=== PATIENT | female | born 1985 | race Caucasian/White ===

== ENCOUNTER 2025-01-15 17:46 | Emergency (ER) | payer MEDICAID, SELFPAY ==
[2025-01-15 17:48] VITALS: BP 149/96; PULSE 78; RESP 18; TEMP 36.9; O2SAT 100; BMI 28.8
--- NOTE | 2025-01-15 18:16 | CT_ITS ---
PROCEDURE: ABDOMEN/PELVIS W IV CONT ONLY 01/15/2025 REASON FOR EXAM: IRREDUCIBLE HERNIA TECHNIQUE: Abdomen and pelvis CT with intravenous contrast. Coronal and Sagittal reconstruction series were provided. PATIENT PREPARATION: Per protocol ORAL CONTRAST TYPE: None. AMOUNT: mL CONTRAST: Omnipaque 350 VOLUME: 100 mL One or more dose reduction techniques were used (e.g., Automated exposure control, adjustment of the mA and/or kV according to patient size, use of iterative reconstruction technique. COMPARISON: None FINDINGS: Lung bases: Unremarkable Liver: Homogeneous attenuation. No focal lesion. Gallbladder: No ductal dilation. Cholelithiasis. Spleen: Normal size. Pancreas: Normal size without evidence of mass surrounding inflammation or ductal dilation. Adrenals: Unremarkable Kidneys: Normal renal sizes. No hydronephrosis. Bladder: Urinary bladder is unremarkable. Reproductive Organs: IUD is noted. Bilateral adnexal cysts. Bowel: Stomach is unremarkable. No bowel dilation. Large colonic stool. Appendix: Normal appendix. Lymph nodes: No suspicious lymph node enlargement. Vasculature: The abdominal aorta and IVC are normal. Peritoneum / Retroperitoneum: No ascites. No pneumoperitoneum. Bones: No degenerative changes. Soft tissue: 4.6 x 8.0 cm fat containing umbilical hernia, with 2.5 cm diastasis of the rectus sheath. CT/Abdomen/Pelvis W IV Cont ONLY IMPRESSION: No acute findings in the abdomen or pelvis. Cholelithiasis. 8 cm fat containing umbilical hernia with rectus sheath diastasis. Reading Location: [facility]
[2025-01-15 18:25] LABS: Absolute Lymphocyte Count 3.13 X10^3/uL (0.83-4.51); Absolute Neutrophil Count 5.2 X10^3/uL (2.0-7.7); Basophil% 1.1 % (0-1); Eosinophil# 0.19 X10^3/uL; Hemoglobin 13.8 g/dL (12.0-15.0); Lymphocyte # 3.13 X10^3/ul (0.83-4.51); Lymphocyte % 33.2 % (19-41); Mean Corp Hgb Conc 34.5 g/dL (32-36); Mean Corpuscular Hgb 31.4 pg (27.0-32.0); Mean Corpuscular Volume 91.1 fL (81-99); Mean Platelet Vol. 8.9 fl (6.2-12.0); Monocyte# 0.83 X10^3/uL; Monocyte% 8.8 % (0-10); NRBC Flagged by Analyzer 0 % (0-5); Neutrophil # 5.17 X10^3/uL (2.7-7.7); Neutrophil % 54.7 % (47-70); Platelet Count 365 K/mm3 (150-450); RBC Distribution Width CV 12.1 % (11.6-14.6); RBC Distribution Width SD 40.7 fl (35.1-43.9); Red Blood Count 4.39 M/mm3 (4.2-5.4); White Blood Count 9.4 K/mm3 (4.4-11.0)
[2025-01-15] MEDS: Morphine 4 MG/ML Syringe IV (18:25)
[2025-01-15] MEDS: Ondansetron 4 MG/2 ML Vial IV (18:25)
[2025-01-15] MEDS: 0.9% Normal Saline (1000mL) 1,000 ML 999 ML IV (18:25)
--- NOTE | 2025-01-15 18:35 | EDS_ITS ---
HPI <YVAN Cadena - Last Filed: 01/15/25 21:02> History of Present Illness Chief Complaint: Abd Pain Narrative Narrative: Patient presenting today due to concerns for an irreducible ventral hernia. She reports she is usually able to easily reduce this when laying down but since yesterday she has had increased pain to the area and is unable to reduce it. She reports that she has had this hernia for about 3 years, she is not currently following with general surgery for this. She denies history of abdominal surgery. She last had a bowel movement this morning that was normal for her, she reports feeling slightly nauseous. She denies fevers, chills, vomiting, and urinary symptoms. PFSH <YVAN Cadena - Last Filed: 01/15/25 21:02> PFSH Medical History Tachycardia IUD (intrauterine device) in place Umbilical hernia Allergy/AdvReac Type Severity Reaction Status Date / Time amoxicillin Allergy Unknown unknown Verified 01/15/25 17:47 Surgical History Previous section Social History Smoking Status: Current every day smoker tobacco type: e-cigarettes ROS <YVAN Cadena - Last Filed: 01/15/25 21:02> ROS ED Constitutional Constitutional ED: Denies chills or fever(s) Cardiovascular Cardiovascular: Denies chest pain Respiratory/Chest Respiratory/Chest: Denies dyspnea Gastrointestinal Gastrointestinal: Reports abdominal pain and nausea; Denies constipation, diarrhea or vomiting Genitourinary Genitourinary ED: Denies dysuria, hematuria or urinary urgency Musculoskeletal Musculoskeletal: Denies arthralgias or myalgias Integumentary Denies rash Neurologic Neurologic: Denies weakness EXAM <YVAN Cadena - Last Filed: 01/15/25 21:02> Physical Exam Const Vital Signs: 01/15/25 17:48 01/15/25 19:46 Temperature 98.4 F 98.7 F Temperature Source Oral Oral Pulse Rate 78 75 Respiratory Rate 18 16 Blood Pressure 149/96 H 131/86 H Blood Pressure Mean 113 101 Pulse Ox 100 100 Oxygen Delivery Method Room Air Room Air Positive well nourished, well developed and no apparent distress General Appearance ED: well developed HEENT Reports normocephalic and head/scalp atraumatic Mouth ED: Yes moist mucous membranes normal Eyes PERRL and EOMs intact bilaterally Neck full ROM and supple Chest Wall inspection of chest normal Resp normal respiratory effort and clear to auscultation bilaterally Cardio regular rate and regular rhythm GI soft to palpation and non-distended GI Narrative: Moderate sized ventral abdominal hernia that is somewhat tender to palpation, no overlying skin changes. Remainder of abdominal exam is soft and nontender Palpation: Negative for guarding or rebound tenderness present Back/Spine normal ROM and normal to inspection Extremity normal to inspection and full ROM Neuro oriented x3, CN's II-XII intact bilaterally, moves all extremities, no focal motor deficits and no sensory deficits noted Sensorium / Orientation: awake and alert Psych mental status grossly normal and thought process normal Skin no rashes or lesions noted and no wounds <Dr. Tato Prieto DO - Last Filed: 01/15/25 20:31> Physical Exam Const Vital Signs: 01/15/25 17:48 01/15/25 19:46 Temperature 98.4 F 98.7 F Temperature Source Oral Oral Pulse Rate 78 75 Respiratory Rate 18 16 Blood Pressure 149/96 H 131/86 H Blood Pressure Mean 113 101 Pulse Ox 100 100 Oxygen Delivery Method Room Air Room Air [facility] <YVAN Cadena - Last Filed: 01/15/25 21:02> [facility] Narrative Medical decision making narrative: Patient presenting today with a ventral hernia that has been painful since yesterday. She reports that she is usually able to easily reduce this but since last night she has not been able to. She last had a bowel movement this morning. On exam, her abdomen is soft and nontender aside from her hernia which is slightly tender. She was given IV Zofran, fluids, and morphine and ice was placed over the hernia, the attending was then able to reduce the majority of her hernia. Basic labs obtained and are unremarkable. CT scan of the abdomen and pelvis with IV contrast shows an 8 cm fat-containing umbilical hernia with rectus sheath diastases, she also has cholelithiasis, no other acute findings. No evidence of bowel obstruction. Patient reports improvement of her symptoms on reexamination. She does not currently have a general surgeon, I have referred her to general surgery here. Recommended she have close follow-up. Return instructions were discussed with her and patient discharged home in stable condition. Lab Data Attestation: I reviewed the patient's lab results. Lab results narrative: CBC and BMP unremarkable Labs: Laboratory Results - last 24 hr 01/15/25 18:12 WBC 9.4 RBC 4.39 Hgb 13.8 Hct 40.0 MCV 91.1 MCH 31.4 MCHC 34.5 RDW Std Deviation 40.7 RDW Coeff of Concetta 12.1 Plt Count 365 MPV 8.9 Immature Gran % (Auto) 0.200 Neut % (Auto) 54.7 Lymph % (Auto) 33.2 Pender % (Auto) 8.8 Eos % (Auto) 2.0 Baso % (Auto) 1.1 H Absolute Neuts (auto) 5.2 Absolute Lymphs (auto) 3.13 Nucleated RBC % 0 Sodium 139 Potassium 4.2 Chloride 104 Carbon Dioxide 22.8 Anion Gap 12 BUN 11 Creatinine 0.76 Estim Creat Clear Calc 99.31 Est GFR (MDRD) Non-Af 103 BUN/Creatinine Ratio 14.5 Glucose 94 Calcium 9.2 Radiography Diagnostic Testing: Clinical Impression(s) from Imaging Studies Abdomen/Pelvis CT 01/15/25 18:16 IMPRESSION: No acute findings in the abdomen or pelvis. Cholelithiasis. 8 cm fat containing umbilical hernia with rectus sheath diastasis. Reading Location: [facility] <Dr. Tato Prieto, DO - Last Filed: 01/15/25 20:31> [facility] Lab Data Labs: Laboratory Results - last 24 hr 01/15/25 18:12 WBC 9.4 RBC 4.39 Hgb 13.8 Hct 40.0 MCV 91.1 MCH 31.4 MCHC 34.5 RDW Std Deviation 40.7 RDW Coeff of Concetta 12.1 Plt Count 365 MPV 8.9 Immature Gran % (Auto) 0.200 Neut % (Auto) 54.7 Lymph % (Auto) 33.2 Pender % (Auto) 8.8 Eos % (Auto) 2.0 Baso % (Auto) 1.1 H Absolute Neuts (auto) 5.2 Absolute Lymphs (auto) 3.13 Nucleated RBC % 0 Sodium 139 Potassium 4.2 Chloride 104 Carbon Dioxide 22.8 Anion Gap 12 BUN 11 Creatinine 0.76 Estim Creat Clear Calc 99.31 Est GFR (MDRD) Non-Af 103 BUN/Creatinine Ratio 14.5 Glucose 94 Calcium 9.2 Radiography Diagnostic Testing: Clinical Impression(s) from Imaging Studies Abdomen/Pelvis CT 01/15/25 18:16 IMPRESSION: No acute findings in the abdomen or pelvis. Cholelithiasis. 8 cm fat containing umbilical hernia with rectus sheath diastasis. Reading Location: [facility] Treatment and Re-Evaluation :: I have personally performed a face to face assessment of the patient and have reviewed the FRAN Note. I performed a substantive portion of the visit including all aspects of the following. My enriquez findings include: History: Patient presents with ventral hernia that recurred yesterday. Patient states it has gradually gotten worse. Patient describes her pain as sharp. Patient states it is over the upper abdomen. Patient states it is worse with certain movements. Patient states it is better when she lays on her side and lays on her back. Patient admits to some nausea but denies any vomiting. Patient denies any diarrhea. Patient denies any fevers or chills. Exam: Vital signs are stable. Patient is afebrile. Patient is in no acute distress. Oral mucosa is pink and moist. Neck is supple. Trachea is midline. There is no JVD. Heart was regular rate and rhythm. Lungs are clear and equal bilaterally. Abdomen is soft. Bowel sounds are normal. There is a ventral hernia noted. There is tenderness to palpation over this area. There is no rebound or guarding noted. Cranial nerves II through XII are intact. There are no focal motor or sensory deficits noted. Medical Decision Making: Differential diagnosis includes incarcerated hernia, strangulated hernia, bowel obstruction, perforation, electrolyte abnormality, and dehydration. CBC will be obtained to assess for leukocytosis and anemia. Basic metabolic profile will be obtained to assess for electrolyte abnormality and renal function. CT scan of the abdomen and pelvis will be obtained to assess for bowel obstruction, perforation, incarcerated hernia, and strangulated hernia. Patient was given IV fluids, morphine, and Zofran. CBC was reviewed and was within normal limits. Basic metabolic profile was reviewed and was within normal limits. CT scan of the abdomen and pelvis was obtained. There is a ventral hernia containing fat. There is no evidence of obstruction or perforation. There is cholelithiasis but no evidence of cholecystitis. This was interpreted by the radiologist and was also independently reviewed by myself. Patient was laid flat and the hernia was attempted to be reduced. There is some reduction of the hernia. Patient felt somewhat better after this. Patient was advised of her findings. Patient was instructed to follow-up with her primary care physician in 5 to 7 days. Patient was given referral for surgery. Patient understood and was agreeable with the plan. All questions were answered. Discharge Plan Triage Chief Complaint: Abd Pain ED Midlevel Provider: Cierra Dinero ED Provider: Tato Prieto Dx/Rx/DC Orders Clinical Impression: Ventral hernia Instructions: ED Hernia (Adult) Primary Care Provider: Hui Valdes NP Referrals: Desean Rodriguez MD [Med Staff - Active Staff] - 5-7 Days NOT,DEFINED [Non-Staff] - Activity Restrictions/Additional Instructions: Follow-up with general surgery, return for any worsening symptoms or other concerns. Print Language: Scottish Disposition Disposition: Home, Self Care
[2025-01-15 18:48] LABS: Anion Gap 12 (5-15); BUN 11 mg/dL (4-19); BUN/Creat Ratio 14.5 RATIO (10-20); Calcium,Total 9.2 mg/dL (7.6-11.0); Carbon Dioxide 22.8 mmol/L (21.0-32.0); Chloride 104 mmol/L (98-108); Creatinine, Serum 0.76 mg/dL (0.70-1.20); EST Glomerular Filtration Rate 103 (>60); Estimated Creatinine Clearance 99.31 ml/min (50-250); Glucose 94 mg/dL (70-99); Potassium 4.2 mmol/L (3.3-5.1); Sodium Level 139 mmol/L (133-145)
[2025-01-15 19:46] VITALS: BP 131/86; PULSE 75; RESP 16; TEMP 37.1; O2SAT 100
[2025-01-15 21:00] VITALS: BP 131/90; PULSE 64
[2025-01-15 21:26] VITALS: BP 131/90; PULSE 75; RESP 16; TEMP 37.1; O2SAT 100
== END 2025-01-15 21:27 | disposition home or self-care (01) ==
PROVIDERS: Physician Assistant; Emergency Provider Emergency Medicine; PCP Nurse Practitioner Primary Care; Visit Provider Emergency Medicine
DX: K43.9 Ventral hernia without obstruction or gangrene (principal); K42.9 Umbilical hernia without obstruction or gangrene; K80.20 Calculus of gallbladder without cholecystitis without obstruction; F17.290 Nicotine dependence, other tobacco product, uncomplicated
CPT/HCPCS: 74177; 80048; 85025; 96361; 96374; 96375; 99283; Q9967; A4216; J2405

== ENCOUNTER 2025-02-14 12:52 | Day surgery (SDC) | payer MEDICAID, SELFPAY ==
[2025-02-14] VITALS (10 sets, daily range): BP systolic 116–142; BP diastolic 66–98; PULSE 74–96; RESP 14–18; TEMP 36.4–36.7; O2SAT 94–100; BMI 27.6
[2025-02-14 13:09] LABS: Internal QC Validated? YES +Cl - CLEAR BKGD; Pregnancy, Urine Negative Negative
[2025-02-14] MEDS: Lactated Ringers 1,000 ML 15 ML IV ×2 (13:28→16:03)
--- NOTE | 2025-02-14 13:40 | PRE.ANES_ITS ---
ASA Classification* ASA Classification ASA Classification: 2 (Tachycardia, anxiety/depression, migraines) Assessment & Plan Anesthesia* Anesthesia Assessment Anesthesia Assessment: Discussed sedation and/or anesthesia options, risks, benefits, and alternatives with patient/parents/legal guardian/POA. Questions invited. The patient/parents/legal guardian/POA seems to understand and agrees to proceed with anesthesia plan. Reviewed the physical assessment, medical history, allergy history and patient home medications list prior to surgery/procedure/anesthetic and documented any changes. Performed airway and anesthesia risk assessments. Anesthesia Type Anesthesia Type: General History Source History Obtained from:: Patient and Chart Anesthesia Focused Assessment* Temperature: 98.0 F Pulse Rate: 75 Blood Pressure: 142/98 Respiratory Rate: 18 Pulse Ox: 98 Oxygen Delivery Method: Room Air Airway Assessment Mouth opens: >3 cm Mallampati Score: II Teeth Condition: Missing (edentullous) Neck Range of motion (ROM): Full ROM Focused Labs Anesthesia Preop lab: CBC WBC 9.4 K/mm3 (4.4-11.0) 01/15/25 18:12 01/15/25 RBC 4.39 M/mm3 (4.2-5.4) 01/15/25 18:12 01/15/25 Hgb 13.8 g/dL (12.0-15.0) 01/15/25 18:12 01/15/25 Hct 40.0 % (37-47) 01/15/25 18:12 01/15/25 Plt Count 365 K/mm3 (150-450) 01/15/25 18:12 01/15/25 CHEMISTRY Potassium 4.2 mmol/L (3.3-5.1) 01/15/25 18:12 01/15/25 Sodium 139 mmol/L (133-145) 01/15/25 18:12 01/15/25 BUN 11 mg/dL (4-19) 01/15/25 18:12 01/15/25 Creatinine 0.76 mg/dL (0.70-1.20) 01/15/25 18:12 01/15/25 Glucose 94 mg/dL (70-99) 01/15/25 18:12 01/15/25 COAG Urine Test Negative Negative 02/14/25 13:00 02/14/25 Pre-Assessment Diagnosis/Proposed Procedure Planned Operative Procedure(s): OPEN VENTRAL HERNIA REPAIR WITH MESH Anesthesia History 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 When Was Last Pacemaker Check QUESTION #4 FULL TEXT: You/Your Family Experience fever (hyperthermia) with Anesthesia Last Oral Intake Last Oral intake: Last Oral Intake NPO since 09:00 02/14/25 13:25 Meds taken in AM with sips of Yes 02/14/25 13:25 water? Meds patient instructed to see med rec 02/14/25 13:25 take am of surgery PONV PONV - justice court deputy clerk: PONV - justice court deputy clerk Female Yes 02/04/25 14:43 HX of Motion Sickness No 02/04/25 14:43 HX of N/V After Surgery No 02/04/25 14:43 Non-Smoker No 02/04/25 14:43 Duration of Surgery greater Yes 02/04/25 14:43 than 60 minutes Number of Risk Factors 2 02/04/25 14:43 PONV Score Moderate Risk 02/04/25 14:43 Height & Weight Height & Weight: Anesthesia: Height & Weight Height 5 ft 4 in 02/14/25 13:25 Weight: 73 kg 02/14/25 13:25 Body Mass Index (BMI) 27.6 02/14/25 13:25 Respiratory Assessment Respiratory Assessment - justice court deputy clerk: Respiratory Tract Infection Hx - justice court deputy clerk Hx Respiratory Tract Infection No 02/04/25 14:43 STOP Sleep Apnea STOP Sleep Apnea - justice court deputy clerk: STOP Sleep Apnea - justice court deputy clerk Hx Hypertension No 02/04/25 14:43 Hx Sleep Apnea No 02/04/25 14:43 CPAP BIPAP Do you snore loudly (louder No 02/04/25 14:43 than talking or can be heard Do you often feel tired/ Yes 02/04/25 14:43 fatigued/ sleepy during daytime? Has anyone observed you stop No 02/04/25 14:43 breathing during sleep? STOP Results Negative 02/04/25 14:43 QUESTION #5 FULL TEXT : Do you snore loudly (louder than talking or can be heard through closed doors)? 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 Specify any problems Hx of Preganancy in last 3 No 02/04/25 14:43 Months Nurse Filling Out Transfusion DSCHRIBER 02/04/25 14:43 & Questions: Date: 02/04/25 02/04/25 14:43 Time: 14:45 02/04/25 14:43 Patient unable to answer at this time (ie. confused, unrespo /Reproduction History /Reproductive History - justice court deputy clerk: /Reproductive Hx- justice court deputy clerk Hx Now No 02/04/25 14:43 Gestational Age (in weeks): EDC: Hx Hx Para Hx Section SAB No 02/04/25 14:43 Active Medications Active Medications: Current Medications Generic Name Dose Route Start Last Admin Trade Name Freq PRN Reason Stop Dose Admin Clindamycin Phosphate 900 mg in 50 mls @ 75 mls/hr 02/14/25 14:30 Cleocin IV 02/14/25 15:09 INTRAOP ONE Lactated Ringer's 1,000 mls @ 15 mls/hr 02/14/25 13:15 02/14/25 13:28 IV 15 mls/hr .Q48H MINOR Administration PFSH Medical History (Updated 02/04/25 @ 14:53 by Tricia Garcia) Wears glasses Wears dentures Depression Bladder disease Low iron Back pain Migraine headache History of ulceration Shortness of breath on exertion Vapes nicotine containing substance Hx of Tachycardia IUD (intrauterine device) in place Home Medications ?Medication ?Instructions ?Recorded ?Last Taken ?Type atomoxetine 80 mg capsule 80 mg PO QAM 02/02/25 Unknow n History metoprolol succinate 25 mg 25 mg PO QDAY HEART RATE 02/14/25 09:00 History tablet,extended release 24 hr solifenacin 10 mg tablet 5 mg PO QDAY OAB 02/02/25 09:00 History sumatriptan succinate 25 mg tablet 25 mg PO ONCE PRN m igraine headache 02/02/25 Unknown History venlafaxine 75 mg capsule,extended 75 mg PO QAM Unknown History release 24 hr Allergy/AdvReac Type Severity Reaction Status Date / Time amoxicillin Allergy Unknown unknown Verified 02/14/25 13:23 Family History Son Asthma Grandmother Diabetes Breast cancer Father Hypertension Surgical History (Updated 02/04/25 @ 14:53 by Tricia Garcia) History of esophagogastroduodenoscopy (EGD) Previous section Social History Smoking Status: Current every day smoker tobacco type: e-cigarettes quit status: not considering quitting Review of Systems (Anesthesia) ROS Narrative System reviewed and no additional complaints, except as documented. Physical Exam Const alert, oriented x3 and average body habitus Resp normal respiratory effort, normal air movement and clear to auscultation bilaterally Cardio regular rate, regular rhythm, no murmurs and diaphoretic
--- NOTE | 2025-02-14 14:14 | PCM.HP.STD ---
HPI - General General Date of Admission: 02/14/25 Date of Service: 02/14/25 Chief Complaint: Ventral hernia HPI Narrative DANE CRENSHAW, is a 39 F who presents for elective repair of a ventral hernia just above the umbilicus. [facility] Medical History Wears glasses Wears dentures Depression Bladder disease Low iron Back pain Migraine headache History of ulceration Shortness of breath on exertion Vapes nicotine containing substance Hx of Tachycardia IUD (intrauterine device) in place Home Medications ?Medication ?Instructions ?Recorded ?Last Taken ?Type atomoxetine 80 mg capsule 80 mg PO QAM 02/02/25 Unknown History metoprolol succinate 25 mg 25 mg PO QDAY HEART RATE 02/02/25 02/14/25 09:00 History tablet,extended release 24 hr solifenacin 10 mg tablet 5 mg PO QDAY OAB 02/02/25 02/14/25 09:00 History sumatriptan succinate 25 mg tablet 25 mg PO ONCE PRN migraine headache 02/02/25 Unknown History venlafaxine 75 mg capsule,extended 75 mg PO QAM 02/02/25 Unknown History release 24 hr Allergy/AdvReac Type Severity Reaction Status Date / Time amoxicillin Allergy Unknown unknown Verified 02/14/25 13:23 Family History Son Asthma Grandmother Diabetes Breast cancer Father Hypertension Surgical History History of esophagogastroduodenoscopy (EGD) Previous section Social History Smoking Status: Current every day smoker tobacco type: e-cigarettes quit status: not considering quitting Vital Signs Vital Signs Vital Signs: 02/14/25 13:25 02/14/25 13:25 02/14/25 13:42 Temperature 98.0 F 98.0 F Temperature Source Temporal Pulse Rate 75 75 Respiratory Rate 18 18 Respiratory Pattern Normal Blood Pressure 142/98 H 142/98 H Blood Pressure Mean 112 Blood Pressure Source Monitor Blood Pressure Position Sitting Blood Pressure Location Left Arm Pulse Ox 98 98 Oxygen Delivery Method Room Air Room Air Weight Weight: 160 lb 14.999 oz Body Mass Index (BMI) 27.6 Physical Exam Const alert, oriented x3 and no apparent distress GI GI Narrative: Hernia unchanged Results Lab / Micro Data Labs: Laboratory Results - last 24 hr 02/14/25 13:00: Urine Test Negative Assessment & Plan Assessment/Plan (1) Ventral hernia: PLAN: Plan The patient is a 39-year-old female with a fat-containing hernia just above the umbilicus. She states she has had this for some time. She was seen in the office and I recommended surgical repair. We discussed the details of the planned surgery including risk benefits and alternatives and she wished to proceed. This will begin momentarily Charges/Coding Visit Charges Inpatient E&M: 88254 Init Hosp L2
[2025-02-14] MEDS: Clindamycin 900 MG/50 ML BAG 75 MG IV (14:28)
--- NOTE | 2025-02-14 14:30 | HERN_PTH ---
PATIENT: DANE [place]SHA[place] [facility] [id number] AGE/SX: 39/F ROOM: RE02/14/[address]: Dr. Desean Rodriguez MD : 1985 BED: DIS: 02/14/2025 SPEC #: [id number] RECD: 02/15/25 07:35 STATUS: OLINDA TYRON #: [id number] KASEY: 02/14/25 14:[address]: Desean Rodriguez DEPT: SURGICAL PATHOLOGY RECD BY: Shaun Armas ENTERED: 02/15/25 10:14 SP TYPE: Hernia OTHR DR: Hui Valdes, WELLNESS PROGRAM COORDINATOR-C Tissues: A - HERNIA Procedures: Surgery Specimen Level II HEADER OPERATION: Mati, ventral repair with mesh PRE-OP DIAGNOSIS: Ventral hernia TISSUE SUBMITTED: A- Hernia sac and contents MICROSCOPIC DIAGNOSIS A. Soft tissue, hernia sac and contents, ventral hernia repair: Fibroadipose tissue with fibrosis and mild chronic inflammation, partially covered by mesothelium, consistent with hernia sac. MICROSCOPIC DESCRIPTION Slides are reviewed. GROSS DESCRIPTION A. Received in formalin in a container labeled with the patient's name, date of , and hernia sac and contents are 2 schmidt-yellow, unoriented, and irregular fragments of fatty tissue measuring 8.1 x 5.0 x 2.5 cm and 15.0 x 5.3 x 2.4 cm. The smallest fragment semisaccular and thinly encapsulated. Serial sections reveal yellow-back, membranous surfaces with the inner lining of the semisaccular area appearing smooth and glistening. The fatty tissue exhibits schmidt-pink, somewhat indurated fibrous areas. No distinct hemorrhage or necrosis is grossly recognized. The larger fragment is finely lobulated and serially sectioned to reveal homogenous schmidt-yellow surfaces with scattered thin vasculature. No nodules or necrosis is identified. Financial Business Analyst sections:A1. Semisaccular portion with fibrous areasA2. Larger finely lobulated fragment [facility] 02-15-2025 CPT:19367
[2025-02-14] MEDS: Gentamicin 80 MG/2 ML Vial (14:48)
[2025-02-14] MEDS: Bupiv/Epi 0.25% 30 ML Vial (14:48)
--- NOTE | 2025-02-14 15:36 | DCINST_ITS ---
Discharge Instructions Diet Discharge Diet: Light diet - advance as tolerated Activity Discharge Activity: May Shower May shower in (days): 1 Ice area for (Minutes): 30 Lifting Restrictions: Keep lifting under 20 pounds for 6 weeks Dressing / Incision Call your doctor if your incision/area has: Continuous Slow Oozing, Sudden Increased Bleeding, Increased Pain/ Swelling, Increased Redness, Foul Smelling Discharge and Swelling at the incision site Call your doctor if you observe: Fever of 101 or Higher Cleanse incision/area with: Soap & Water Additional Dressing/Incision Instructions:: Wear abdominal binder for comfort Follow Up Care Please Follow Up With: Desean Rodriguez MD When: 2 weeks. Please call office to schedule appointment Test Results: Test results from this visit will be discussed in further detail at your follow- up appointment, if applicable. Discharge Plan Admission Primary Reason for Your Visit: Ventral hernia repair with mesh Attending Provider: Desean Rodriguez Primary Care Provider: Hui Valdes NP Instructions Print Language: Thai Discharge Orders/Prescriptions Prescriptions: New oxycodone-acetaminophen [Percocet] 5-325 mg tablet 1 tab PO Q8H PRN (Reason: pain) 4 Days Qty: 10 0RF Continued sumatriptan succinate 25 mg tablet 25 mg PO ONCE PRN (Reason: migraine headache) solifenacin 10 mg tablet 5 mg PO QDAY atomoxetine 80 mg capsule 80 mg PO QAM venlafaxine 75 mg capsule,extended release 24hr 75 mg PO QAM metoprolol succinate 25 mg tablet extended release 24 hr 25 mg PO QDAY Referrals / Follow Up: Hui Valdes NP, [employer] SUPERVISOR-C [Primary Care Provider] - Disposition Disposition (needs filled in before D/C Order can be placed): Home, Self Care
--- NOTE | 2025-02-14 15:46 | PCM.OPRPT ---
Problems Associated Problem List Diagnoses (1) Ventral hernia: Procedures Digestive 40xxx-49xxx: [id number] RPR AA HRN 11-22 NCR/STRN Operative Report (Standard) Operative Information Date of Procedure: 02/14/25 Pre-Operative Diagnosis: Ventral hernia -chronically incarcerated Post-Operative Diagnosis: Same Surgery/Procedure Performed: Open ventral hernia repair with mesh correctional maintenance technician: Yes Air Vice Marshal: Kristine Larose Tasks completed by list of first job ideas: Closing and Retracting Additional clinical assistant professor?: No Type of Anesthesia: General and Local RN Documented Start/Stop Times: Operation Date: 02/14/25 14:30 Case Time Into Pre-Op 02/14/25 13:03 Out of Pre-Op 02/14/25 14:24 Anesthesia Start 02/14/25 14:28 Into Room 02/14/25 14:28 Procedure Start 02/14/25 14:48 Procedure End 02/14/25 15:43 Procedure Start Time: 14:48 Procedure Stop Time: 15:43 Select all DRAINS/GRAFTS/IMPLANTS that apply: Prosthetic device Prosthetic device details: Ventralex ST 6.4 cm mesh Special Medications: 2 g Ancef IV Estimated Blood Loss: Minimal Specimen collected: Yes Description of specimen(s) removed: Hernia sac and contents Description of surgery: The patient is a 39-year-old female who is recently seen through the office with a ventral hernia. This was just above the umbilicus. The overall dimensions of the hernia bulge was about 8 cm. I had her undergo a CT scan of the abdomen. This revealed a fat-containing hernia with a fascial defect size about 2-1/2 to 3 cm based on estimation of the images. I offered her an open repair with mesh. We discussed the details of the planned procedure and she wished to proceed. She was brought to the operating room today following informed consent. Preoperative antibiotics were given and a timeout was performed. She was placed supine on the operative table with arms outstretched and arm boards. The abdomen is then prepped and draped the usual sterile manner. Local anesthetic was infiltrated into the region just above the umbilicus. #15 blade was then used to make the skin incision. Bovie electrocautery was then used dissect down through the subcutaneous tissues. The fat-containing hernia and sac were identified. This was freed up. This hernia was partially reducible but there was components that were nonreducible and thus chronically incarcerated. The dissection was carried down to the level of the fascia. The hernia sac was excised. The hernia contents were omental fat. This was freed up. Attempts were made to reduce the hernia however this was unsuccessful. Some of the omentum was excised. Christina clamps and ties were used for hemostasis purposes. The hernia contents were then able to be easily reduced. The fascial defect was about 3 cm in greatest dimension. I then selected a Ventralex ST circular mesh with a diameter of 6.4 cm. This was placed in antibiotic solution. This was then inserted 0 Nurolon was then used to secure the mesh in place and 4 points. This mesh laid very nicely. I then closed the fascial defect using interrupted 0 Nurolon sutures. An additional 7 or 7 sutures were placed to close the fascia. This closed very nicely. Hemostasis was excellent. The wound was copiously irrigated with saline. 3-0 Vicryl was then used to close the subdermal layer. 4-0 Vicryl was then run in the skin. Skin glue was applied as dressing and abdominal binder was also placed. She was awakened from anesthesia and taken to recovery in good condition Surgical Findings: 3 cm fascial defect Fat-containing hernia Complications Complications: No Admit VTE Documentation VTE Present on Admission: No VTE Mechan Device Prophylaxis: SCD's VTE Pharm Prophylaxis ordered?: No Reason prophylaxis not ordered: Treatment Not Indicated
--- NOTE | 2025-02-14 15:54 | PCM.POST.ANE ---
Anesthesia: Postop Eval I Current Vital Signs Temperature: 97.8 F Pulse Rate: 88 Blood Pressure: 117/81 Respiratory Rate: 16 Pulse Ox: 100 Oxygen Delivery Method: Non-Rebreather Oxygen Flow Rate (L/min): 8 Assessment Airway patent: Yes Spontaneous unlabored respirations: Yes Mental status: Awake and Calm nausea: No Vomiting: No Anesthesia Complication: No Fluid Hydration Crystalloid volume administer (ml): 1,000 Total IV fluid infused: 1,000 Progress Note Anesthesia document: Postop Eval 1 completed: Yes
--- NOTE | 2025-02-14 16:37 | POSTOPAN2_ITS ---
Anesthesia Postop Eval I Sum Postop Eval Completion status Anesthesia document: Postop Eval 1 completed: Yes Anesthesia Postop Eval I Summary Anesthesia Postop Eval I Summary: Anesthesia Postop Eval I: Assessment Summary Airway patent Yes 02/14/25 15:55 BUILDING SERVICES [email or web address] Spontaneous unlabored Yes 02/14/25 15:55 BUILDING SERVICES [email or web address] respirations Mental status Awake,Calm 02/14/25 15:55 BUILDING SERVICES [email or web address] nausea No 02/14/25 15:55 BUILDING SERVICES [email or web address] Vomiting No 02/14/25 15:55 BUILDING SERVICES [email or web address] Anesthesia Postop Eval I: Fluid Summary Crystalloid volume administer 1,000 02/14/25 15:55 BUILDING SERVICES [email or web address] (ml) Colloids volume administered ( ml) Blood Product volume administered (ml) Total IV fluid infused 1,000 02/14/25 15:55 BUILDING SERVICES [email or web address] Anesthesia Postop Eval I: Summary Notes Anesthesia Complication No 02/14/25 15:55 BUILDING SERVICES [email or web address] Anesthesia Complication Comment: Post-operative progress note Anesthesia: Postop Eval II Evaluation Mental status: Awake Pain Level: 0 nausea: No Vomiting: No Complications Anesthesia Complication: No
--- NOTE | 2025-02-14 16:37 | PCM.POSTANE2 ---
Anesthesia Postop Eval I Sum Postop Eval Completion status Anesthesia document: Postop Eval 1 completed: Yes Anesthesia Postop Eval I Summary Anesthesia Postop Eval I Summary: Anesthesia Postop Eval I: Assessment Summary Airway patent Yes 02/14/25 15:55 SOCIAL SECURITY BENEFITS INTERVIEWER.[email or web address] Spontaneous unlabored Yes 02/14/25 15:55 SOCIAL SECURITY BENEFITS INTERVIEWER.SOBR respirations Mental status Awake,Calm 02/14/25 15:55 SOCIAL SECURITY BENEFITS INTERVIEWER.SOBR nausea No 02/14/25 15:55 SOCIAL SECURITY BENEFITS INTERVIEWER.SOBR Vomiting No 02/14/25 15:55 SOCIAL SECURITY BENEFITS INTERVIEWER.SOBR Anesthesia Postop Eval I: Fluid Summary Crystalloid volume administer 1,000 02/14/25 15:55 SOCIAL SECURITY BENEFITS INTERVIEWER.SOBR (ml) Colloids volume administered ( ml) Blood Product volume administered (ml) Total IV fluid infused 1,000 02/14/25 15:55 SOCIAL SECURITY BENEFITS INTERVIEWER.SOBR Anesthesia Postop Eval I: Summary Notes Anesthesia Complication No 02/14/25 15:55 SOCIAL SECURITY BENEFITS INTERVIEWER.SOBR Anesthesia Complication Comment: Post-operative progress note Anesthesia: Postop Eval II Evaluation Mental status: Awake Pain Level: 0 nausea: No Vomiting: No Complications Anesthesia Complication: No
[2025-02-14] MEDS: Acetaminophen 325 MG Tablet PO (17:10)
[2025-02-14] MEDS: oxyCODONE 5 MG Tablet PO (17:10)
== END 2025-02-14 18:12 | disposition home or self-care (01) ==
LOC: SDC 12:52 → AC 12:55
PROVIDERS: Anesthesiology; PCP Nurse Practitioner Primary Care; Referring Provider Surgery; Visit Provider Surgery
PROC: (CPT 49594; principal; 2025-02-14 14:15)
DX: K43.6 Other and unspecified ventral hernia with obstruction, without gangrene (principal); F17.290 Nicotine dependence, other tobacco product, uncomplicated
CPT/HCPCS: 49594; 00832; 81025; 88302; C1781; J2405

== ENCOUNTER 2025-02-21 13:19 | Emergency (ER) | payer MEDICAID, SELFPAY ==
[2025-02-21 13:19] VITALS: BP 139/103; PULSE 76; RESP 18; TEMP 37.1; O2SAT 100; BMI 28.1
[2025-02-21 13:21] VITALS: BP 139/103; PULSE 76; RESP 18; TEMP 37.1; O2SAT 100
[2025-02-21 14:21] VITALS: BP 145/89; PULSE 73; RESP 16; TEMP 37.1; O2SAT 100
[2025-02-21] MEDS: Ondansetron 4 MG/2 ML Vial IV (14:35)
[2025-02-21] MEDS: Morphine 4 MG/ML Syringe IV (14:36)
[2025-02-21] MEDS: 0.9% Normal Saline (1000mL) 1,000 ML 999 ML IV (14:36)
--- NOTE | 2025-02-21 14:46 | EX.ED.DYSGE1 ---
HPI History of Present Illness Chief Complaint: Abd Pain Narrative Narrative: Chief complaint and HPI: Abdominal pain. 39-year-old female with past medical history of recent ventral hernia repair presents for evaluation of abdominal pain. On chart review, patient had an open ventral hernia repair with mesh on 02/14/[address] Rodriguez for chronically incarcerated ventral hernia. Patient states she has been doing well up until today. She states yesterday she felt great in which she does admit that she was more active. She states today she developed increased abdominal pain. She states majority of the pain is in the right upper quadrant. She denies any fever, chills, shortness of breath, chest pain, nausea, vomiting, diarrhea, dysuria. States she has been eating and drinking well. Review of systems: See HPI Medications: As listed on the chart Allergies: As listed on the chart PFSH: Per chart Vital signs: As listed on the chart. Reviewed. Physical exam: Gen: A&O x3, NAD Head: Normocephalic, atraumatic Eyes: No sclera icterus, conjunctiva clear ENT: Moist mucous membranes Neck: Trachea midline, No JVD CV: RRR, no murmurs, no peripheral edema Resp: Lungs CTA BL, no w/r/c GI: Abd soft, non-distended, mildly tender to palpation diffusely which is appropriate for recent surgery, no Arana sign, Midline incision healing well without signs of infection or recurrent hernia, no r/r/g : No CVA tenderness Musc: Full ROM, no deformity Skin: Warm, dry Neuro: Alert, oriented, grossly intact, sensation intact Psych: Cooperative, appropriate mood and affect [facility] Medical History Wears glasses Wears dentures Depression Bladder disease Low iron Back pain Migraine headache History of ulceration Shortness of breath on exertion Vapes nicotine containing substance Hx of Tachycardia IUD (intrauterine device) in place Home Medications ?Medication ?Instructions ?Recorded ?Last Taken ?Type atomoxetine 80 mg capsule 80 mg PO QAM 02/02/25 Unknown History metoprolol succinate 25 mg 25 mg PO QDAY HEART RATE 02/02/25 02/20/25 History tablet,extended release 24 hr solifenacin 10 mg tablet 5 mg PO QDAY OAB 02/02/25 02/20/25 History venlafaxine 75 mg capsule,extended 75 mg PO QAM 02/02/25 Unknown History release 24 hr acetaminophen 500 mg capsule 1,000 mg PO Q6H PRN pain 02/21/25 02/21/25 History sumatriptan succinate 100 mg tablet 100 mg PO Q2H PRN migraine 02/21/25 Unknown History Allergy/AdvReac Type Severity Reaction Status Date / Time amoxicillin Allergy Unknown unknown Verified 02/21/25 13:20 Family History Son Asthma Grandmother Diabetes Breast cancer Father Hypertension Surgical History History of esophagogastroduodenoscopy (EGD) Previous section Social History Smoking Status: Current every day smoker tobacco type: e-cigarettes quit status: not considering quitting EXAM Physical Exam Const Vital Signs: 02/21/25 13:19 02/21/25 13:21 02/21/25 14:21 Temperature 98.7 F 98.7 F 98.7 F Temperature Source Oral Oral Oral Pulse Rate 76 76 73 Respiratory Rate 18 18 16 Blood Pressure 139/103 H 139/103 H 145/89 H Blood Pressure Mean 115 115 107 Pulse Ox 100 100 100 Oxygen Delivery Method Room Air Room Air Room Air 02/21/25 15:00 Temperature 98.7 F Temperature Source Oral Pulse Rate 73 Respiratory Rate 16 Blood Pressure 138/97 H Blood Pressure Mean 110 Pulse Ox 100 Oxygen Delivery Method Room Air MDM MDM MDM Narrative Medical decision making narrative: 39-year-old female with past medical history of recent ventral hernia repair presents for evaluation of abdominal pain. History was taken by patient as well as medical record. See HPI. Patient is status post open ventral hernia repair with mesh on 02/14/2025 with general surgery. Differential diagnosis includes but is not limited to postoperative pain, UTI, cholecystitis, biliary colic, pancreatitis, abscess. NS bolus, morphine, Zofran ordered for symptoms. CBC without leukocytosis or anemia. CMP unremarkable without significant electrolyte abnormality or BERNA. Patient's AST is mildly elevated at 34 but ALT, alkaline phosphatase, and bilirubin unremarkable. Lipase unremarkable. UA negative for UTI. CT abdomen pelvis shows status post ventral hernia repair with findings suggestive of small postoperative seroma in the subcutaneous tissue at the level of the incision. Multiple gallstones without cholecystitis. On reevaluation, patient's symptoms have improved. I suspect her symptoms are secondary to postoperative pain with increased activity yesterday. Given that patient recently did have surgery, I spoke to Dr. Garcia. Agrees with discharge home. Has an appointment with general surgery on Friday. Return precautions explained. She confirmed understand the plan. Patient stable to discharge home. Impression: 1. Abdominal pain 2. History of recent open ventral hernia repair Lab Data Labs: Laboratory Results - last 24 hr 02/21/25 02/21/25 02/21/25 14:05 14:23 14:35 WBC 9.0 RBC 4.40 Hgb 13.5 Hct 41.0 MCV 93.2 MCH 30.7 MCHC 32.9 RDW Std Deviation 42.2 RDW Coeff of [place] 12.2 Plt Count 390 MPV 9.3 Immature Gran % (Auto) 0.200 Neut % (Auto) 59.2 Lymph % (Auto) 29.7 [place] % (Auto) 8.0 Eos % (Auto) 2.0 Baso % (Auto) 0.9 Absolute Neuts (auto) 5.3 Absolute Lymphs (auto) 2.68 Nucleated RBC % 0 Sodium 140 Potassium 5.0 Chloride 106 Carbon Dioxide 22.8 Anion Gap 11 BUN 11 Creatinine 0.73 Estim Creat Clear Calc 102.27 Est GFR (MDRD) Non-Af 108 BUN/Creatinine Ratio 15.4 Glucose 94 Lactic Acid 1.8 Calcium 9.2 Total Bilirubin 0.20 AST 34 H ALT 16 Alkaline Phosphatase 66 Total Protein 6.9 Albumin 4.0 Globulin 2.9 Albumin/Globulin Ratio 1.4 Lipase 46 Urine Color Straw Urine Clarity Clear Urine pH 7.0 Ur Specific [place] 1.010 Urine Protein Negative Urine Glucose (UA) Normal Urine Ketones Negative Urine Occult Blood Negative Urine Nitrite Negative Urine Bilirubin Negative Urine Urobilinogen Normal Ur Leukocyte Esterase Negative Urine RBC 0-5 SEEN Urine WBC 0-5 SEEN Ur Squamous Epith Cells 0-5 SEEN Urine Bacteria 0 SEEN Urine Mucus 0 SEEN Radiography Diagnostic Testing: Clinical Impression(s) from Imaging Studies Abdomen/Pelvis CT 02/21/25 15:06 IMPRESSION: Status post ventral hernia repair with a findings suggestive of a small postoperative seroma in the subcutaneous tissues at the level of the incision. The remainder of the examination is unchanged. Multiple gallstones. Reading Location: [place] [id number] Discharge Plan Triage Chief Complaint: Abd Pain ED Provider: Yvon Becker Dx/Rx/DC Orders Clinical Impression: Abdominal pain Instructions: ED Abdominal Pain Unkn Cause Fem Prescriptions: No Action solifenacin 10 mg tablet 5 mg PO QDAY atomoxetine 80 mg capsule 80 mg PO QAM venlafaxine 75 mg capsule,extended release 24hr 75 mg PO QAM metoprolol succinate 25 mg tablet extended release 24 hr 25 mg PO QDAY sumatriptan succinate 100 mg tablet 100 mg PO Q2H PRN (Reason: migraine) acetaminophen 500 mg capsule 1,000 mg PO Q6H PRN (Reason: pain) Primary Care Provider: Hui Valdes NP Referrals: Desean Rodriguez MD [Med Staff - Active Staff] - 3-5 Days Activity Restrictions/Additional Instructions: Keep your appointment on Friday with general surgery. Return back to the ED if symptoms change or worsen. Print Language: Beninese Disposition Disposition: Home, Self Care
[2025-02-21 14:53] LABS: Bacteria 0 SEEN /hpf (None Seen); Mucous, Urine 0 SEEN /hpf (<or=2+)
[2025-02-21 14:58] LABS: Absolute Lymphocyte Count 2.68 X10^3/uL (0.83-4.51); Absolute Neutrophil Count 5.3 X10^3/uL (2.0-7.7); Basophil# 0.08 X10^3/uL; Basophil% 0.9 % (0-1); Eosinophil# 0.18 X10^3/uL; Hemoglobin 13.5 g/dL (12.0-15.0); Lymphocyte # 2.68 X10^3/ul (0.83-4.51); Lymphocyte % 29.7 % (19-41); Mean Corp Hgb Conc 32.9 g/dL (32-36); Mean Corpuscular Hgb 30.7 pg (27.0-32.0); Mean Corpuscular Volume 93.2 fL (81-99); Mean Platelet Vol. 9.3 fl (6.2-12.0); Monocyte# 0.72 X10^3/uL; NRBC Flagged by Analyzer 0 % (0-5); Neutrophil # 5.33 X10^3/uL (2.7-7.7); Neutrophil % 59.2 % (47-70); Platelet Count 390 K/mm3 (150-450); RBC Distribution Width CV 12.2 % (11.6-14.6); RBC Distribution Width SD 42.2 fl (35.1-43.9)
[2025-02-21 15:00] VITALS: BP 138/97; PULSE 73; RESP 16; TEMP 37.1; O2SAT 100
[2025-02-21 15:02] LABS: Color, Urine Straw (Yellow); Glucose, Dipstick Normal (Normal); Ketone-Dipstick Negative (Negative); Leukocyte Esterase-Dipstick Negative /ul (Negative); Nitrite-Dipstick Negative (Negative); Occult Blood-Urine Negative /ul (Negative); Protein-Dipstick Negative (Negative); Urine Bilirubin Dipstick Negative (Negative); Urine Clarity Clear (Clear); Urine Urobilinogen Normal (Normal)
--- NOTE | 2025-02-21 15:06 | CT_ITS ---
PROCEDURE: ABDOMEN/PELVIS W IV CONT ONLY 02/21/2025 REASON FOR EXAM: ABDOMINAL PAIN, RECENT HERNIA SURGERY TECHNIQUE: Abdomen and pelvis CT with intravenous contrast. Coronal and Sagittal reconstruction series were provided. PATIENT PREPARATION: Per protocol ORAL CONTRAST TYPE: None. CONTRAST: Isovue-300 VOLUME: 100 mL One or more dose reduction techniques were used (e.g., Automated exposure control, adjustment of the mA and/or kV according to patient size, use of iterative reconstruction technique. RADIATION DOSE SUMMARY: CTDlvol: 13.2 mGy DLP: 698.31 mGycm COMPARISON: Prior examination dated January 15, 2025. FINDINGS: Lung bases: Unremarkable Liver: Normal size. No mass. Gallbladder: Several calcified gallstones. Spleen: Unremarkable Pancreas: Normal size without evidence of mass surrounding inflammation or ductal dilation. Adrenals: Unremarkable Kidneys: Normal renal sizes. No hydronephrosis. Bladder: The bladder is empty. Reproductive Organs: IUD is seen within the uterus. Bowel: Unremarkable Appendix: Unremarkable Lymph nodes: Unremarkable Vasculature: The abdominal aorta and IVC are normal. Peritoneum / Retroperitoneum: The patient is status post ventral hernia repair. Postsurgical changes are seen. There is evidence of a 3.2 cm by 2.4 cm fluid collection deep to the skin surface within the subcutaneous tissue at the level of the umbilicus most likely representing a small postoperative seroma. Bones: Degenerative changes at the L4-L5 and L5-S1 levels. CT/Abdomen/Pelvis W IV Cont ONLY IMPRESSION: Status post ventral hernia repair with a findings suggestive of a small postope rative seroma in the subcutaneous tissues at the level of the incision. The remainder of the examination is unchanged. Multiple gallstones. Reading Location: [place] [id number]
[2025-02-21 15:25] LABS: Lactic Acid 1.8 mmol/L (0.0-2.0)
[2025-02-21 15:27] LABS: Lipase 46 U/L (13-75)
[2025-02-21 15:28] LABS: ALB/GLOB Ratio 1.4 RATIO (0.9-2.4); AST(SGOT) 34 U/L (<=31); Alanine Aminotransfer ALT/SGPT 16 U/L (<=34); Alkaline Phosphatase 66 U/L (35-104); Anion Gap 11 (5-15); BUN 11 mg/dL (4-19); BUN/Creat Ratio 15.4 RATIO (10-20); Calcium,Total 9.2 mg/dL (7.6-11.0); Carbon Dioxide 22.8 mmol/L (21.0-32.0); Chloride 106 mmol/L (98-108); Creatinine, Serum 0.73 mg/dL (0.70-1.20); EST Glomerular Filtration Rate 108 (>60); Estimated Creatinine Clearance 102.27 ml/min (50-250); Globulin 2.9 g/dL (2.2-4.2); Glucose 94 mg/dL (70-99); Protein, Total 6.9 g/dL (5.9-8.4); Sodium Level 140 mmol/L (133-145)
[2025-02-21 15:37] LABS: Red Blood Cells-Urine 0-5 SEEN /hpf (0-5); Squamous Epithelial Cells - UA 0-5 SEEN /hpf (5-10); White Blood Cells 0-5 SEEN /hpf (0-5)
[2025-02-21 15:59] VITALS: BP 133/84; PULSE 73; RESP 16; TEMP 37.1; O2SAT 100
== END 2025-02-21 16:06 | disposition home or self-care (01) ==
PROVIDERS: Emergency Provider Surgery; PCP Nurse Practitioner Primary Care; Visit Provider Surgery
DX: R10.11 Right upper quadrant pain (principal); K80.20 Calculus of gallbladder without cholecystitis without obstruction; F17.290 Nicotine dependence, other tobacco product, uncomplicated; Z79.899 Other long term (current) drug therapy; Z98.890 Other specified postprocedural states
CPT/HCPCS: 74177; 80053; 81001; 83605; 83690; 85025; 96361; 96374; 96375; 99282; A4216; J2405; Q9967

== ENCOUNTER 2025-02-21 23:29 | Inpatient (IN) | payer MEDICAID, SELFPAY ==
[2025-02-21 23:30] VITALS: BP 128/79; PULSE 84; RESP 20; TEMP 36.7; O2SAT 100; BMI 28.7
[2025-02-22] VITALS (7 sets, daily range): BP systolic 132–155; BP diastolic 60–96; PULSE 70–85; RESP 16–18; TEMP 36.1–37; O2SAT 99–100; BMI 28.4
--- NOTE | 2025-02-22 00:40 | EX.ED.DYSGE1 ---
HPI History of Present Illness Chief Complaint: Abd Pain Narrative Narrative: Patient is a 39-year-old female with past medical history of recent ventral hernia repair with mesh placement, depression, migraine headaches who presents to the emergency department chief complaint of abdominal pain nausea. Patient states that she is not vomiting but feels like she wants to constantly. Patient states that she was here earlier today she was sent home she was not given any medications to go home with. She states that she had been trying to take Tylenol and ibuprofen at home and this is not helping her pain therefore she came back here for further evaluation management. Patient rates her pain an 8 out of 10 and states that it is in the right upper abdomen. [facility] Medical History Wears glasses Wears dentures Depression Bladder disease Low iron Back pain Migraine headache History of ulceration Shortness of breath on exertion Vapes nicotine containing substance Hx of Tachycardia IUD (intrauterine device) in place Home Medications ?Medication ?Instructions ?Recorded ?Last Taken ?Type atomoxetine 80 mg capsule 80 mg PO QAM 02/02/25 Unknown History metoprolol succinate 25 mg 25 mg PO QDAY HEART RATE 02/02/25 02/20/25 History tablet,extended release 24 hr solifenacin 10 mg tablet 5 mg PO QDAY OAB 02/02/25 02/20/25 History venlafaxine 75 mg capsule,extended 75 mg PO QAM 02/02/25 Unknown History release 24 hr acetaminophen 500 mg capsule 1,000 mg PO Q6H PRN pain 02/21/25 02/21/25 History sumatriptan succinate 100 mg tablet 100 mg PO Q2H PRN migraine 02/21/25 Unknown History Allergy/AdvReac Type Severity Reaction Status Date / Time amoxicillin Allergy Unknown unknown Verified 02/21/25 23:32 Family History Son Asthma Grandmother Diabetes Breast cancer Father Hypertension Surgical History History of esophagogastroduodenoscopy (EGD) Previous section Social History Smoking Status: Current every day smoker tobacco type: e-cigarettes quit status: not considering quitting ROS ROS ED ROS Narrative Constitutional: Denies any fevers, chills, headaches Eyes: Denies change in vision double vision blurry vision Cardiovascular: Denies chest pain Respiratory: Shortness of breath Abdomen: Complains of abdominal pain and nausea as noted above she states that she is passing gas and had a bowel movement prior to arrival : Denies urinary symptoms Neurological: Denies numbness, weakness, tingling Musculoskeletal: Denies back pain Skin: Denies rashes or lesions EXAM Physical Exam Narrative Exam Narrative: General: Patient lying in bed rest comfortably did not appear to be acute distress Head: Atraumatic, normocephalic Eyes: PERRL bilaterally, EOMI bilaterally, no conjunctival injection noted Neck: Soft, supple, trachea midline Cardiovascular: Regular rate and rhythm no murmurs gallops rubs noted Respiratory: Clear to auscultation bilaterally Abdomen: Soft, nondistended, tenderness to palpation the right upper quadrant positive Arana sign Extremities: +5/5 strength noted in the bilateral upper and lower extremities Neurological: Patient is following commands today she was at [facility] the year is 2024 Skin: Warm, dry, intact surgical incision healing well without concerns for infection Const Vital Signs: 02/21/25 23:30 02/22/25 01:29 02/22/25 03:00 Temperature 98.1 F Temperature Source Oral Pulse Rate 84 70 72 Respiratory Rate 20 H 18 18 Blood Pressure 128/79 H 150/96 H 148/60 H Blood Pressure Mean 95 114 89 Pulse Ox 100 99 Oxygen Delivery Method Room Air Room Air MDM MDM MDM Narrative Medical decision making narrative: Patient is a 39-year-old female who presented to the emergency department the chief complaint of abdominal pain. On the differential diagnosis includes but not limited to cholecystitis, cholelithiasis, pancreatitis, bowel obstruction although have low suspicion for this as she is passing gas had a CT earlier today that did not show any evidence of this and she had a bowel movement prior to arrival. Patient will be on IV fluids morphine Zofran. Patient's workup from earlier today reviewed and showed no evidence leukocytosis white blood count was normal at 9, he was 13.5, platelet count of 390. Patient sodium was normal at 140, potassium normal at 5, creatinine normal at 0.73. Patient AST and ALT were 34 and 16 respectively with a normal total bilirubin at 0.20. Patient urinalysis did not show any evidence infection. Patient CT abdomen pelvis with IV contrast showed status post ventral hernia repair with findings suggestive of small postoperative seroma in the subcutaneous tissues at the level of the incision. The remainder of the exam is unchanged. Multiple gallstones noted. Provider's note was reviewed as well and they discussed this with surgery team and ultimately agreed to send the patient home. Patient states that she was not sent home with any medications, which upon review she was not. Patient CBC reviewed showed a white blood cell count of 12,000 hemoglobin was 12.7. Patient's sodium was 139, potassium of 4, creatinine was noted to be 0.79. Patient's AST and ALT were 38 and 18 respectively, lipase normal at 37. Patient's gallbladder showed acute cholecystitis. Patient given dose of IV Zosyn she states that she has not had amoxicillin since she has been a child. Patient was requesting more pain medication which was ordered morphine Zofran. Discussed case with on-call general surgeon Dr. Garcia who accept the patient for admission. Patient notified is agreeable this plan all course concerns answered. Lab Data Labs: Laboratory Results - last 24 hr 02/22/25 00:48 WBC 12.6 H RBC 4.09 L Hgb 12.7 Hct 37.5 MCV 91.7 MCH 31.1 MCHC 33.9 RDW Std Deviation 41.1 RDW Coeff of Concetta 12.3 Plt Count TNP MPV 9.5 Immature Gran % (Auto) 0.200 Neut % (Auto) 66.6 Lymph % (Auto) 23.7 Gilliam % (Auto) 7.2 Eos % (Auto) 1.5 Baso % (Auto) 0.8 Absolute Neuts (auto) 8.4 H Absolute Lymphs (auto) 2.99 Nucleated RBC % 0 Differential Comment SCANNED Platelet Estimate ADEQUATE Sodium 139 Potassium 4.0 Chloride 105 Carbon Dioxide 21.6 Anion Gap 12 BUN 10 Creatinine 0.79 Estim Creat Clear Calc 95.38 Est GFR (MDRD) Non-Af 97 BUN/Creatinine Ratio 13.0 Glucose 92 Calcium 9.1 Total Bilirubin < 0.15 AST 38 H ALT 18 Alkaline Phosphatase 59 Total Protein 6.6 Albumin 4.0 Globulin 2.6 Albumin/Globulin Ratio 1.6 Lipase 37 Radiography Diagnostic Testing: Clinical Impression(s) from Imaging Studies Gallbladder Ultrasound 02/22/25 02:16 IMPRESSION: Findings suggest acute calculus cholecystitis. Gallbladder hydrops. Fatty hepatomegaly. Findings were discussed with Dr. Smith at 3:41 am Reading Location: [place] [address] Discharge Plan Triage Chief Complaint: Abd Pain ED Provider: Kayden Smith Dx/Rx/DC Orders Clinical Impression: Abdominal pain, Acute cholecystitis Prescriptions: No Action solifenacin 10 mg tablet 5 mg PO QDAY atomoxetine 80 mg capsule 80 mg PO QAM venlafaxine 75 mg capsule,extended release 24hr 75 mg PO QAM metoprolol succinate 25 mg tablet extended release 24 hr 25 mg PO QDAY sumatriptan succinate 100 mg tablet 100 mg PO Q2H PRN (Reason: migraine) acetaminophen 500 mg capsule 1,000 mg PO Q6H PRN (Reason: pain) Primary Care Provider: Hui Valdes NP Referrals: Hui Valdes NP, [employer] [Primary Care Provider] - Print Language: Algerian Disposition Disposition: Acute Care [facility]
--- OUTSIDE RECORDS SUMMARY | 2025-02-22 00:44 | XMS RPT_ITS | CCD ---
Author Organization [facility] CliniSyin Care Team Providers Care Shot Blaster Name Role Phone [facility] Unavailable Unavai lable [facility], [facility] Unavailable Unavai lable BULGRIN, LOURDES Unavailable Unavailable [place], [facility] Unavailable Unavai lable UNKNOWN, PROVIDER Unavailable Unavailable Christina Rangel Primary Care Provider AA UNKNOWN PCP, UNKNOWN Primary Care Unavaila CARLEY Colon Admitting Unavailable CARLEY COOPER Attending Unavailable MEREDITH MUNOZ V Admitting Unavailable MEREDITH MNUOZ V Attending Unavailable SHAUN CARLIN Primary Care Unavailable Christina Rangel Primary Care Provider Unavailabl e Desiree Casarez Unavailable Unavailable None, No PCP Unavailable Unavailable Frances Padgett Unavailable Unavailable Christina Rangel Primary Care Provider Unavailabl Christina Pace Primary Care Provider Unavailabl e Shaun Carlin MD Primary Care Provider Shaun Carlin Unavailable Unavailable Unavailable Shaun Carlin MD Primary Care Provider Shaun Carlin MD Primary Care Provider Shaun Carlin MD Primary Care Provider [phone] Dr. Shaun Carlin Primary Care Unavailable JULY Joseph, TIMBO VU Attending Unav willi LARSON Jr., TIMBO VU Referring Unav SHAUN Medrano Referring Unavailable ESME GRACE Attending Unavailable SHAUN CARLIN Primary Care Unavailable ESME GRACE Attending Unavailable ESME GRACE Referring Unavailable SHAUN CARLIN Primary Care Unavailable SHAUN CARLIN Primary Care Unavailable ESME GRACE Attending Unavailable SHAUN CARLIN Referring Unavailable JOANNA WILKES Attending Unavailable SHAUN CARLIN Primary Care Unavailable Ritchie Lieberman MD Primary Care Provider [employer]log[employer] DRAPERY HEM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, Hui Unavailable [employer] DRAPERY HEM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, Hui Unavailable [place] [employer]AP[employer] HEM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Kinza Unavailable [place] DRAP[employer] HEM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, Kinza Unavailable PODLOGAR, HUI Attending Unavailable BURSLEY, CHRISTOPHER B Primary Care Unavailab le PODLOGAR, HUI Referring Unavailable BURSLEY, CHRISTOPHER B Primary Care Unavailab le BEAR, TEMITOPE Attending Unavailable PODLOGAR, HUI Referring Unavailable BURSLEY, CHRISTOPHER B Primary Care Unavailab le PODLOGAR, HUI Attending Unavailable BURSLEY, CHRISTOPHER B Primary Care Unavailab le BEAR, TEMITOPE Referring Unavailable BURSLEY, CHRISTOPHER B Primary Care Unavailab le Conner TOWNSEND, Dr. Godwin Attending Provider Dr. Flora Prieto DO Emergency Provider Podlogar 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, Hui Primary Care Provider [employer]logar 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, Hui Referring Provider Jennifer MARADIAGA, Dr. Desean Cavazos Attending Provider Jennifer MARADIAGA, Dr. Desean Cavazos Referring Provider Jennifer MARADIAGA, Dr. Desean Cavazos Other Provider Desean Rodriguez Referring Unavailable Podlogar AUDIO VISUAL MANAGER, Hui Primary Care Unavailable Desean Rodriguez Consulting Unavailable Desean Rodriguez Attending Unavailable Desean Rodriguez Referring Unavailable Podlogar AUDIO VISUAL MANAGER, Hui Primary Care Unavailable Desean Rodriguez Attending Unavailable [employer]logar AUDIO VISUAL MANAGER, Hui Primary Care Unavailable Flora Prieto Attending Unavailable [employer]logar AUDIO VISUAL MANAGER, Hui Primary Care Unavailable [employer]logar AUDIO VISUAL MANAGER, Hui Referring Unavailable Desean Rodriguez Attending Unavailable Dr. Yvon Becker DO Emergency Provider Allergies Allergy Classification Reported Allergen(s) Allergy Type Date of Onset Reaction(s) Facility (20 sources) Amoxicillin; Translations: [amoxicillin] Drug Allergy 04-30-2016 Unknown [place], [place] (1 source) Amoxicillin Drug Allergy [facility] Repository (1 source) Amoxicillin Drug Allergy 02-14-2025 [facility] Repository Medications Current Medications Medication Drug Class(es) Dates Sig (Normalized) Sig (Original) acetaminophen 500 mg oral capsule (20 sources) Start: 02-21-2025 take 2 capsules by mouth every six hours as needed for pain Acetaminophen 500 mg capsule Active 1000 mg PO EVERY 6 HOURS as needed for pain February 21, 2025 12:00am Start: 08-18-2021 End: 06-19-2022 take 2 tablets by mouth every six hours as needed acetaminophen (TYLENOL) 500 mg tablet Take 2 tablets by mouth every 6 hours as needed for pain. 30 tablet 0 08/18/2021 06/19/2022 Discontinued Comment on above: Take 2 tablets by mo ut every 6 hours as needed for pain. [id number] 200 actuat albuterol 0.09 mg/actuat metered dose inhaler (1 source) beta2-Adrenergic Agonist Start: 06-19-20 albuterol sulfate HFA 108 (90 Base) MCG/ACT inhaler 2 puff atomoxetine 80 mg oral capsule (15 sources) Norepinephrine Reuptake Inhibitor Start: 02-03-20 take 1 capsule by mouth once daily in the morning Atomoxetine 80 mg capsule Active 80 mg PO EVERY MORNING February 02, 2025 12:00am Start: 12-31-2024 take 1 capsule by [facility] once daily atomoxetine 80 mg capsule Indications: ADHD (attention deficit hyperactivity disorder), combined type Take 1 capsule by mouth once daily. 90 capsule 1 12/31/2024 Active Start: 07-05-2024 End: 12-31-2024 take 1 capsule by mouth once daily atomoxetine (STRATTERA) 40 mg capsule Indications: ADHD (attention deficit hyperactivity disorder), combined type Take 1 capsule by mouth once daily. 30 capsule 5 07/05/2024 12/31/2024 Discontinued azithromycin 250 mg oral tablet (3 sources) Macrolide Antimicrobial Start: 06-19-2021 End: 06-23-2021 take 1 tablet by mouth once daily azithromycin (ZITHROMAX) 250 MG tablet Indications: Acute bronchitis, unspecified organism , Acute diffuse otitis externa of left ear Take 1 tablet by mouth daily for 4 days 4 tablet 0 06/19/2021 06/19/2021 Discontinued (Availability) Start: 06-19-2021 End: 06-19-2021 azithromycin (ZITHROMAX) tab let 500 mg benzonatate 100 mg oral capsule (2 sources) Non-narcotic Antitussive Start: 01-08-2022 End: 01-18-2022 take 2 capsules by mouth three times daily as needed benzonatate (TESSALON PERLE) 100 mg capsule Indications: Bronchitis Take 2 capsules by mouth three times daily as needed for up to 10 days. 30 capsule 0 01/08/2022 01/18/2022 Active Comment on above: Take 2 capsules by [facility] three times daily as needed for up to 10 days. cephalexin 500 mg oral capsule (5 sources) Cephalosporin Antibacterial Start: 12-24-2020 End: 12-31-2020 take 1 capsule by mouth twice daily cephALEXin (KEFLEX) 500 MG capsule Take 1 capsule by mouth 2 times daily for 7 days 14 capsule 0 12/24/2020 12/31/2020 Active clarithromycin 500 mg oral tablet (2 sources) Macrolide Antimicrobial Start: 01-08-2022 End: 01-18-2022 take 1 tablet by mouth every twelve hours clarithromycin (BIAXIN) 500 mg Indications: Bronchitis Take 1 tablet by mouth every 12 hours for 10 days. 20 tablet 0 01/08/2022 01/18/2022 Active Comment on above: Take 1 tablet by [facility] every 12 hours for 10 days. gabapentin 300 mg oral capsule (20 sources) Anti-epileptic Agent Start: 06-04-2019 End: 07-04-2019 take 1 capsule by mouth three times daily gabapentin (NEURONTIN) 300 MG capsule Take 1 capsule by mouth 3 times daily for 30 days. 90 capsule 0 06/04/2019 Active Start: 04-08-2016 End: 05-29-2019 take 2 capsules by mouth twice daily gabapentin (NEURONTIN) 300 MG capsule TK 1 C PO BID 2 04/08/2016 05/29/2019 Discontinued (Therapy completed) hydrocortisone 10 mg/ml / neomycin 3.5 mg/ml / polymyxin b 23225 unt/ml otic solution (2 sources) Aminoglycoside Antibacterial, Polymyxin-class Antibacterial, Corticosteroid Start: 06-19-2021 End: 06-19-2021 zemrpicg-iynrfxzdd-jeuzkuhbx isone (CORTISPORIN) [id number] 4 drops into the left ear 3 times daily for 10 days Instill into left Ear 10 mL 0 06/19/2021 06/19/2021 Discontinued (Availability) Start: 06-19-2021 End: 06-29-2021 kkavwfgv-iivyqzvgn-vhpbtcziu isone 1 % SOLN otic solution Place 2 drops into the left ear every 8 hours for 10 days 1 each 0 06/19/2021 06/29/2021 Active ketoconazole 20 mg/ml topical cream (1 source) Azole Antifungal Start: 03-21-2023 End: 05-02-2023 ketoconazole (NIZORAL) 2 % cream Apply to affected area once daily. 60 g 1 03/21/2023 05/02/2023 Active Comment on above: Apply to affected ar ea once daily. 24 hr metoprolol succinate 25 mg extended release oral tablet (16 sources) beta-Adrenergic Jacquelyn Start: 02-02-2025 take 1 tablet by mouth once daily Metoprolol Succinate 25 mg tablet extended release 24 hr Active 25 mg PO daily February 02, 2025 12:00am Start: 10-03-2023 End: 07-05-2024 take 1 tablet by mouth once daily metoprolol succinate ER (TOPROL XL) 25 mg 24 hr tablet Indications: Migraine without aura and without status migrainosus, not intractable Take 1 tablet by mouth once daily. 90 tablet 3 07/05/2024 Active Comment on above: Take 1 tablet by [facility] once daily. nitrofurantoin, macrocrystals 25 mg / nitrofurantoin, monohydrate 75 mg oral capsule (2 sources) Nitrofuran Antibacterial Start: 03-28-20 End: 04-07-20 take 1 capsule by mouth twice daily nitrofurantoin monohydrate and macrocrystal (MACROBID) 100 mg capsule Take 1 capsule by mouth twice daily for 10 days. 20 capsule 0 03/28/2022 04/07/2022 Active Comment on above: Take 1 capsule by [facility] twice daily for 10 days. nystatin [id number] unt/ml topical cream (4 sources) Polyene Antifungal Start: 10-08-19 End: 10-22-19 nystatin (MYCOSTATIN) cream Indications: Yeast dermatitis Apply to affected area twice daily for 14 days. 30 g 0 10/08/2022 10/22/2022 Active Start: 10-04-2022 End: 10-11-2022 take 5 mL by mouth four times daily nystatin (MYCOSTATIN) 100,000 unit/mL suspension Take 5 mL by mouth four times daily for 7 days. Swish and swallow. 140 mL 0 10/04/2022 10/11/2022 Active Comment on above: Take 5 mL by mouth f our times daily for 7 days. Swish and swallow. Apply to affected ar ea twice daily for 14 days. solifenacin succinate 10 mg oral tablet (16 sources) Cholinergic Muscarinic Antagonist Start: take 5 mg by mouth once daily Solifenacin 10 mg tablet Active 5 mg PO daily February 02, 2025 12:00am Start: 02-02-2025 take 1 tablet by lizbeth th once daily Solifenacin 10 mg tablet Active 10 mg PO daily February 02, 2025 12:00am Start: 11-07-2023 End: 07-05-2024 take 0.5 tablet by mouth once daily solifenacin 10 mg tablet Take 0.5 tablets by mouth once daily. 90 tablet 1 07/05/2024 Active Comment on above: Take 0.5 tablets by mouth once daily. SUMAtriptan 100 mg oral tablet (20 sources) Serotonin-1b and Serotonin-1d Receptor Agonist Start: 02-21-2025 take 1 tablet by mouth every two hours as needed Sumatriptan Succinate 100 mg tablet Active 100 mg PO Q2H as needed for migraine February 21, 2025 12:00am Start: 02-02-2025 End: 02-21-2025 take 1 tablet by mouth once as needed for headache Sumatriptan Succinate 25 mg tablet Discontinued 25 mg PO ONCE as needed for migraine headache February 02, 2025 12:00am February 21, 2025 1:46pm Start: 10-03-2023 End: 12-31-2024 SUMAtriptan (IMITREX) 100 mg tablet Indications: Migraine without aura and without status migrainosus, not intractable Take 1 tablet by mouth as needed for migraine headache (see administration instructions). 9 tablet 2 12/31/2024 Active Start: 10-08-2022 End: 07-01-2023 SUMAtriptan (IMITREX) 100 mg tablet Indications: Migraine without aura and without status migrainosus, not intractable Take 1 tablet (100 mg) by mouth as needed for migraine headache (see administration instructions). 9 tablet 11 07/01/2023 Active Start: 09-19-2022 End: 10-08-2022 SUMAtriptan (IMITREX) 50 mg tablet Indications: Migraine without aura and without status migrainosus, not intractable Take 1 tablet by mouth as needed. 12 tablet 2 09/19/2022 10/08/2022 Discontinued Start: 08-23-2021 End: 02-14-2022 SUMAtriptan (IMITREX) 50 mg tablet Indications: Migraine without aura and without status migrainosus, not intractable TAKE 1 TABLET BY MOUTH NEEDED FOR MIGRAINE HEADACHE(SEE INSTRUCTIONS) 12 tablet 5 01/07/2022 02/14/2022 Discontinued Start: 04-28-2016 End: 05-29-2019 SUMAtriptan (IMITREX) 50 MG tablet SUMAtriptan Succ inate 25 MG Oral Tablet Quantity: 0 Refills: 0 Ordered: 16-Aug-2020 DO Active SUMAtriptan Succ inate 25 MG Oral Tablet Refills: 0 Active Comment on above: TAKE 1 TABLET BY LIZBETH TH NEEDED FOR MIGRAINE HEADACHE(SEE INSTRUCTIONS) Take 1 tablet by lizbeth th as needed. Take 1 tablet by lizbeth th as needed for migraine headache (see administration instructions). Take 1 tablet (100 m g) by mouth as needed for migraine headache (see administration instructions). traZODone hydrochloride 50 mg oral tablet (20 sources) Serotonin Reuptake Inhibitor Start: 9 take 1 tablet by mouth once daily as needed for sleep traZODone (DESYREL) 50 MG tablet Take 1 tablet by mouth nightly as needed for Sleep 30 tablet 0 06/04/2019 Active traZODone HCl - 100 MG Oral Tablet Quantity: 0 Refills: 0 Ordered: 16-Aug-2020 DO Active traZODone HCl - 100 MG Oral Tablet Refills: 0 Active valACYclovir 500 mg oral tablet (5 sources) Herpesvirus Nucleoside Analog DNA Polymerase Inhibitor, Herpes Simplex Virus Nucleoside Analog DNA Polymerase Inhibitor, Herpes Zoster Virus Nucleoside Analog DNA Polymerase Inhibitor Start: 08-23-2022 End: 09-22-2022 take 1 tablet by mouth twice daily valACYclovir (VALTREX) 500 mg tablet Take 1 tablet by mouth twice daily. 60 tablet 3 08/23/2022 09/22/2022 Active Comment on above: Take 1 tablet by lizbeth twice daily. 24 hr venlafaxine 75 mg extended release oral capsule (20 sources) Serotonin and Norepinephrine Reuptake Inhibitor Start: 02-02-2025 take 1 capsule by mouth once daily in the morning Venlafaxine 75 mg capsule,extended release 24hr Active 75 mg PO EVERY MORNING February 02, 2025 12:00am Start: 12-31-2024 take 1 capsule by mo [facility] once daily venlafaxine ER (EFFEXOR XR) 75 mg 24 hr capsule Indications: Recurrent major depressive disorder, remission status unspecified Take 1 capsule by mouth once daily. 90 capsule 1 12/31/2024 Active Start: 07-12-2024 End: 12-31-2024 take 1 capsule by mouth once daily venlafaxine ER (EFFEXOR XR) 37.5 mg 24 hr capsule Take 1 capsule by mouth once daily. 30 capsule 2 10/14/2024 12/31/2024 Discontinued Start: 06-05-2019 take 1 capsule by [facility] once daily venlafaxine (EFFEXOR XR) 150 MG extended release capsule Take 1 capsule by mouth daily 30 capsule 0 06/05/2019 Active Start: 06-05-2019 take 1 capsule by mo [facility] once daily venlafaxine (EFFEXOR XR) 150 MG extended release capsule Take 1 capsule by mouth daily 30 capsule 0 06/05/2019 Active Completed/Discontinued Medications Medication Drug Class(es) Dates Sig (Normalized) Sig (Original) acetaminophen 325 mg / butalbital 50 mg / caffeine 40 mg oral tablet (20 sources) Barbiturate, Central Nervous System Stimulant, Methylxanthine Start: 05-21-2022 End: 07-31-2022 take 1 tablet by mouth every six hours as needed for headache and headache acetaminophen 325 mg-caffeine 40 mg-butalbital 50 mg (FIORICET) per tablet Indications: Headache in , second trimester TAKE 1 TABLET BY MOUTH EVERY 6 HOURS NEEDED 10 tablet 0 07/31/2022 Active Start: 05-10-2022 End: 05-19-2022 take 1 tablet by mouth every six hours as needed for headache and headache acetaminophen 325 mg-caffeine 40 mg-butalbital 50 mg (FIORICET) per tablet Indications: Headache in , second trimester Take 1 tablet by mouth every 6 hours as needed. 10 tablet 0 05/10/2022 05/19/2022 Discontinued Comment on above: Take 1 tablet by lizbeth th every 6 hours as needed. TAKE 1 TABLET BY LIZBETH TH EVERY 6 HOURS NEEDED acetaminophen 325 mg / oxyCODONE hydrochloride 5 mg oral tablet (2 sources) Opioid Agonist Start: 02-15-20 25 End: 02-22-20 Oxycodone-Acetaminop hen (Percocet) 5-325 mg tablet Discontinued 1 {tbl} PO Q8H as needed for pain 10 4 February 14, 2025 February 21, 2025 2:46pm bismuth subsalicylate 262 mg chewable tablet (2 sources) Bismuth Start: 11-24-19 End: 01-12-20 take 1 tablet by mouth four times daily bismuth subsalicylate (PEPTO-BISMOL) 262 mg chew Indications: PUD (peptic ulcer disease) Take 1 tablet by mouth four times daily for 14 days. 56 tablet 0 11/23/2021 01/11/2022 Discontinued (Course of therapy completed) Comment on above: Take 1 tablet by lizbeth th four times daily for 14 days. Blood-Glucose Meter (20 sources) Start: 06-28-20 Blood-Glucose Meter Indications: GDM (gestational diabetes mellitus), class A1 1 Each twice daily. 1 Each 0 06/28/2022 Active Comment on above: 1 Each twice daily. busPIRone hydrochloride 10 mg oral tablet (9 sources) Start: 04-08-20 16 End: 05-29-20 19 take 1 tablet by mouth twice daily busPIRone (BUSPAR) 10 MG tablet TK 1 T PO BID 2 04/08/2016 05/29/2019 Discontinued (Therapy completed) clindamycin 300 mg oral capsule (2 sources) Lincosamide Antibacterial Start: 08-16-20 20 take 1 capsule by mouth twice daily Clindamycin HCl - 300 MG Oral Capsule Take 1 capsule twice daily Quantity: 14 Refills: 0 Ordered: 16-Aug-2020 Desiree Casarez PA-C Start : 16-Aug-2020 Active clotrimazole 10 mg/ml topical cream (20 sources) Azole Antifungal Start: 07-04-20 21 clotrimazole (LOTRIMIN, CLOTRIM) 1 % cream Indications: Tinea pedis of both feet APPLY TO AFFECTED AREA TWICE A DAY 60 g 1 07/04/2021 Active Start: 06-04-2019 End: 06-11-2019 clotrimazole (LOTRIMIN) 1 % cream Apply topically 2 times daily. 40 g 0 06/04/2019 06/11/2019 Active Comment on above: APPLY TO AFFECTED AR EA TWICE A DAY docusate sodium 100 mg oral capsule (20 sources) Start: 07-05-2022 take 1 capsule by mouth twice daily docusate sodium (COLACE) 100 mg capsule Indications: Constipation, unspecified constipation type Take 1 capsule by mouth twice daily. 90 capsule 1 07/05/2022 Active Start: 03-29-2021 End: 01-11-2022 take 1 capsule by mouth twice daily docusate sodium (COLACE) 100 mg capsule Indications: constipation Take 1 capsule by mouth twice daily. 60 capsule 6 03/29/2021 01/11/2022 Discontinued (Discontinued by Patient) Comment on above: Take 1 capsule by mo [facility] twice daily. famotidine 20 mg oral tablet (20 sources) Histamine-2 Receptor Antagonist Start: 05-06-2022 take 1 tablet by mouth twice daily famotidine (PEPCID) 20 mg tablet Indications: PUD (peptic ulcer disease) , GERD without esophagitis Take 1 tablet by mouth twice daily. 180 tablet 3 05/06/2022 Active Start: 12-24-2020 End: 10-08-2022 take 1 tablet by mouth twice daily famotidine (PEPCID) 20 MG tablet Take 1 tablet by mouth 2 times daily 60 tablet 0 12/24/2020 01/23/2021 Active Start: 02-25-2019 End: 05-29-2019 take 1 tablet by mouth once daily famotidine (PEPCID) 40 MG tablet Take 1 tablet by mouth daily for 10 days 10 tablet 0 02/25/2019 05/29/2019 Discontinued (Therapy completed) Comment on above: Take 1 tablet by [facility] twice daily. Take 20 mg by mouth twice daily. hydrocortisone 25 mg/ml topical cream (20 sources) Corticosteroid Start: 02-21-2025 End: 02-21-2025 Hydrocortisone 2.5 % cream with perineal applicator Discontinued RC TWICE A DAY February 21, 2025 12:00am February 21, 2025 2:45pm Start: 10-03-2023 End: 07-26-2024 hydrocortisone (ANUSOL-HC) 2 .5 % rectal cream Indications: External hemorrhoid by RECTAL route two times a day. 28 g 3 07/27/2024 Active Start: 12-10-2022 End: 07-01-2023 hydrocortisone (ANUSOL-HC) 2 .5 % rectal cream Indications: External hemorrhoid by RECTAL route two times a day. 28 g 2 07/01/2023 Active Start: 10-30-2021 hydrocortisone (ANUSOL-HC) 2.5 % rectal cream Indications: External hemorrhoid by RECTAL route twice daily. 28 g 2 10/30/2021 Active Comment on above: by RECTAL route twic e daily. by RECTAL route two times a day. ibuprofen 600 mg oral tablet (3 sources) Nonsteroidal Anti-inflammatory Drug Start: 09-14-20 End: 10-08-19 take 1 tablet by mouth every six hours ibuprofen (MOTRIN) 600 mg tablet Take 1 tablet by mouth every 6 hours. 30 tablet 0 09/14/2022 10/08/2022 Discontinued (Course of therapy completed) Comment on above: Take 1 tablet by lizbeth th every 6 hours. isopropyl alcohol 0.7 ml/ml medicated pad (20 sources) Start: 06-28-20 alcohol swabs Indications: GDM (gestational diabetes mellitus), class A1 Apply 1 application to affected area twice daily. 100 Each 2 06/28/2022 Active Comment on above: Apply 1 application to affected area twice daily. levonorgestrel 0.203894 mg/hr intrauterine system (1 source) Progestin, Progestin-containing Intrauterine Device Start: 11-01-19 End: 11-01-19 23 levonorgestrel 20 mcg/24 hours (8 yrs) 52 mg 1 Each intrauterine device (MIRENA) lisinopril 10 mg oral tablet (8 sources) Angiotensin Converting Enzyme Inhibitor Start: 02-02-20 End: 02-09-20 22 take 1 tablet by mouth once daily lisinopril (ZESTRIL, PRINIVIL) 10 mg tablet Indications: Hypertension, essential TAKE 1 TABLET BY MOUTH EVERY DAY 90 tablet 0 02/01/2022 02/08/2022 Discontinued Start: 11-26-2021 End: 02-01-2022 take 1 tablet by mouth once daily lisinopril (ZESTRIL, PRINIVIL) 10 mg tablet Indications: Hypertension, essential Take 1 tablet by mouth once daily. 30 tablet 1 01/08/2022 02/01/2022 Discontinued Comment on above: Take 1 tablet by lizbeth th once daily. TAKE 1 TABLET BY LIZBETH TH EVERY DAY 1 ml LORazepam 2 mg/ml injection (1 source) Benzodiazepine Start: 05-29-2019 End: 05-29-2019 LORazepam (ATIVAN) injection 2 mg Start: 05-29-2019 End: 05-29-2019 LORazepam (ATIVAN) injection 2 mg meloxicam (2 sources) Nonsteroidal Anti-inflammatory Drug Mobic TABS Quantity: 0 Refills: 0 Ordered: 16-Aug-2020 DO Active Mobic TABS Refil ls: 0 Active 2 ml naloxone hydrochloride 1 mg/ml prefilled syringe (2 sources) Opioid Antagonist Start: 05-28-2019 End: 05-28-2019 naloxone (NARCAN) injection 2 mg Start: 05-28-2019 End: 05-28-2019 naloxone (NARCAN) 2 MG/2ML i njection omeprazole 40 mg delayed release oral capsule (18 sources) Proton Pump Inhibitor Start: 10-08-2022 End: 07-01-2023 take 1 capsule by mouth once daily omeprazole (PRILOSEC) 40 mg capsule Indications: GERD without esophagitis Take 1 capsule by mouth once daily. 90 capsule 3 10/08/2022 07/01/2023 Discontinued (Course of therapy completed) Start: 11-27-2021 End: 02-08-2022 take 1 capsule by mouth once daily omeprazole (PRILOSEC) 40 mg capsule Indications: PUD (peptic ulcer disease) Take 1 capsule by mouth once daily. 28 capsule 0 11/27/2021 02/08/2022 Discontinued Comment on above: Take 1 capsule by mo [facility] once daily. ondansetron 8 mg oral tablet (20 sources) Serotonin-3 Receptor Antagonist Start: take 1 tablet by mouth every eight hours as needed for nausea and vomiting ondansetron (ZOFRAN) 8 mg tablet Indications: Nausea/vomiting in TAKE 1 TABLET BY MOUTH EVERY 8 HOURS NEEDED FOR NAUSEA AND VOMITING 30 tablet 1 07/18/2022 Active Start: 02-21-2022 End: 06-10-2022 take 1 tablet by mouth every eight hours as needed for nausea and vomiting ondansetron (ZOFRAN) 8 mg tablet Indications: Nausea/vomiting in TAKE 1 TABLET BY MOUTH EVERY 8 HOURS NEEDED FOR NAUSEA AND VOMITING 30 tablet 1 06/10/2022 Active Comment on above: Take 1 tablet by lizbeth th every 8 hours as needed for nausea/vomiting. TAKE 1 TABLET BY LIZBETH TH EVERY 8 HOURS NEEDED FOR NAUSEA AND VOMITING oxyCODONE hydrochloride 5 mg oral tablet (3 sources) Opioid Agonist Start: 09-14-20 End: 10-08-19 take 1 tablet by mouth every six hours as needed oxyCODONE IR (ROXICODONE) 5 mg immediate release tablet Indications: Delivery by section of full-term Take 1-2 tablets by mouth every 6 hours as needed. 10 tablet 0 09/14/2022 10/08/2022 Discontinued (Course of therapy completed) Comment on above: Take 1-2 tablets by mouth every 6 hours as needed. PNV no.95/ferrous fum/folic ac ( ORAL) (1 source) End: 02-15-20 PNV no.95/ferrous fum/folic ac ( ORAL) Take by mouth. 0 02/14/2022 Discontinued Comment on above: Take by mouth. polyethylene glycol 3350 38024 mg powder for oral solution (20 sources) Osmotic Laxative Start: 05-21-20 End: 07-05-20 polyethylene glycol 3350 (MIRALAX, GLYCOLAX) 17 gram/dose powder Indications: Constipation, unspecified constipation type Take 17 g by mouth once daily. Dissolve dose in 4 - 8 ounces of liquid and take as directed. 119 g 1 07/05/2022 Active Start: 04-24-2022 End: 05-19-2022 polyethylene glycol 3350 (NV RALAX, GLYCOLAX) 17 gram/dose powder Indications: Constipation, unspecified constipation type TAKE 17 G BY MOUTH ONCE DAILY. DISSOLVE DOSE IN 4 - 8 OUNCES OF LIQUID AND TAKE DIRECTED. 119 g 1 04/24/2022 05/19/2022 Discontinued Start: 04-05-2022 End: 04-24-2022 polyethylene glycol 3350 (NV RALAX) 17 gram/dose powder Indications: Constipation, unspecified constipation type Take 17 g by mouth once daily. Dissolve dose in 4 - 8 ounces of liquid and take as directed. 116 g 1 04/05/2022 04/24/2022 Discontinued Comment on above: Take 17 g by mouth o nce daily. Dissolve dose in 4 - 8 ounces of liquid and take as directed. 28 mg iron- 800 mcg tab (2 sources) Start: 01-29-2023 End: 07-01-2023 take 1 tablet by mouth once daily 28 mg iron- 800 mcg tab TAKE 1 TABLET BY MOUTH EVERY DAY 90 tablet 3 01/29/2023 07/01/2023 Discontinued (Course of therapy completed) Start: 01-29-2023 take 1 tablet by lizbeth th once daily 28 mg iron- 800 mcg tab TAKE 1 TABLET BY MOUTH EVERY DAY 90 tablet 3 01/29/2023 Active Comment on above: TAKE 1 TABLET BY LIZBETH TH EVERY DAY [id number] A tab (20 sources) Start: 2 take 1 tablet by mouth once daily [id number] tab Indications: Amenorrhea, secondary Take 1 tablet by mouth once daily. 30 tablet 11 02/14/2022 Active Comment on above: Take 1 tablet by lizbeth th once daily. sertraline 100 mg oral tablet (9 sources) Serotonin Reuptake Inhibitor Start: 6 End: 9 take 1 tablet by mouth once daily sertraline (ZOLOFT) 100 MG tablet TK 1 T PO QD UTD 2 04/08/2016 05/29/2019 Discontinued (Therapy completed) 50 ml sodium chloride 9 mg/ml injection (2 sources) Start: 9 End: 9 0.9 % sodium chloride bolus terbinafine 250 mg oral tablet (3 sources) Allylamine Antifungal Start: 4 End: 4 take 1 tablet by mouth once daily terbinafine HCl (LAMISIL) 250 mg tablet Indications: Onychomycosis Take 1 tablet by mouth once daily. 90 tablet 10/03/2023 07/05/2024 Discontinued (Course of therapy completed) Start: 07-01-2023 take 1 tablet by lizbeth th once daily terbinafine HCl (LAMISIL) 250 mg tablet Indications: Onychomycosis Take 1 tablet by mouth once daily. 90 tablet 0 07/01/2023 Active Comment on above: Take 1 tablet by once daily. zonisamide 100 mg oral capsule (2 sources) Anti-epileptic Agent Zonisamide 100 MG Oral Capsule Quantity: 0 Refills: 0 Ordered: 16-Aug-2020 DO Active Problems Active Problems Problem Classification Problem Date Documented Da te Episodic/Chronic Abdominal hernia (20 sources) Hernia of anterior abdominal wall; Translations: [Ventral hernia without obstruction or gangrene] Onset: 09-03-2018 06-04-2019 Episodic Abdominal pain (19 sources) Epigastric pain; Translations: [Epigastric pain] Onset: 10-30-2021 Resolved: 02-08-2022 10-30-2021 Episodic Acute bronchitis (2 sources) Acute bronchitis; Translations: [Acute bronchitis, unspecified] Onset: 06-19-2021 Episodic Attention-deficit, conduct, and disruptive behavior disorders (14 sources) Attention deficit hyperactivity disorder, combined type; Translations: [Attention-deficit hyperactivity disorder, combined type] Onset: 08-11-2018 Resolved: 08-15-2021 07-05-2024 Chronic Attention-deficit, conduct, and disruptive behavior disorders (1 source) Attention-deficit hyperactivity disorder, combined type; Translations: [ADHD (attention deficit hyperactivity disorder), combined type] Onset: 12-31-2024 Chronic Chronic obstructive pulmonary disease and bronchiectasis (1 source) Bronchitis; Translations: [Bronchitis, not specified as acute or chronic] Episodic Contraceptive and procreative management (6 sources) Intrauterine contraceptive device in situ; Translations: [Encounter for routine checking of intrauterine contraceptive device] Onset: 10-18-2024 Episodic Disorders of lipid metabolism (20 sources) Pure hypercholesterolemia; Translations: [Pure hypercholesterolemia, unspecified] Onset: 11-02-2018 Resolved: 08-15-2021 06-04-2019 Chronic Essential hypertension (20 sources) Essential hypertension; Translations: [Essential (primary) hypertension] Onset: 11-26-2021 Resolved: 07-01-2023 11-26-2021 Chronic Genitourinary symptoms and ill-defined conditions (13 sources) Stress incontinence (female) (male); Translations: [Genuine stress incontinence] Onset: 10-03-2023 10-03-2023 Chronic Headache, including migraine (20 sources) Migraine; Translations: [Migraine, unspecified, not intractable, without status migrainosus] Onset: 04-19-2017 06-04-2019 Chronic Hemorrhoids (3 sources) External hemorrhoids; Translations: [Residual hemorrhoidal skin tags] Episodic Menstrual disorders (3 sources) Secondary amenorrhea; Translations: [Secondary amenorrhea] Chronic Mood disorders (20 sources) Depressive disorder; Translations: [Severe recurrent major depression] Onset: 07-07-2018 Resolved: 08-15-2021 06-04-2019 Chronic Mood disorders (1 source) Major depressive disorder, single episode, unspecified; Translations: [MAJOR DEPRESSIVE DISORDER, SINGLE EPISODE, UNSPECIFIED] Onset: 04-19-2017 Mycoses (2 sources) Candidiasis of skin; Translations: [Candidiasis of skin and nail] Episodic Nonmalignant breast conditions (1 source) Breast finding ; Translations: [Dense breast tissue] 10-18-2024 Episodic Other aftercare (1 source) Other fci (current) drug therapy; Translations: [OTH LAUNDERER HAND CURRENT DRUG THERAPY] Onset: 08-10-2019 Episodic Other complications of (6 sources) Nausea and vomiting; Translations: [Vomiting of , unspecified] Episodic Other diseases of bladder and urethra (2 sources) Bladder muscle dysfunction - overactive; Translations: [OAB (overactive bladder)] Onset: 07-07-2018 06-04-2019 Chronic Other diseases of bladder and urethra (20 sources) Overactive bladder; Translations: [Overactive bladder] Onset: 07-07-2018 06-04-2019 Chronic Other ear and sense organ disorders (2 sources) Acute otitis externa; Translations: [Diffuse otitis externa, left ear] Onset: 06-19-2021 Episodic Other female genital disorders (1 source) Vaginal discharge; Translations: [Other specified noninflammatory disorders of vagina] Episodic Other gastrointestinal disorders (4 sources) Constipation; Translations: [Constipation, unspecified] Episodic Other nutritional; endocrine; and metabolic disorders (15 sources) Obese class I; Translations: [Obesity, unspecified] Onset: 09-03-2018 06-04-2019 Chronic Other nutritional; endocrine; and metabolic disorders (1 source) Severe obesity; Translations: [Morbid (severe) obesity due to excess calories] Chronic Other nutritional; endocrine; and metabolic disorders (1 source) Obesity; Translations: [Obesity, unspecified] 03-26-2023 Chronic Other nutritional; endocrine; and metabolic disorders (1 source) Obesity, unspecified; Translations: [Class 1 obesity with body mass index (BMI) of 34.0 to 34.9 in adult, unspecified obesity type, unspecified whether serious comorbidity present] Onset: 03-26-2023 Chronic Other nutritional; endocrine; and metabolic disorders (1 source) Body mass index (BMI) 34.0-34.9, adult; Translations: [Class 1 obesity with body mass index (BMI) of 34.0 to 34.9 in adult, unspecified obesity type, unspecified whether serious comorbidity present] Onset: 03-26-2023 Chronic Other nutritional; endocrine; and metabolic disorders (1 source) Morbid (severe) obesity due to excess calories; Translations: [Class 2 severe obesity with serious comorbidity and body mass index (BMI) of 36.0 to 36.9 in adult, unspecified obesity type (HCC)] Onset: 01-01-2023 Chronic Other nutritional; endocrine; and metabolic disorders (1 source) Body mass index (BMI) 36.0-36.9, adult; Translations: [Class 2 severe obesity with serious comorbidity and body mass index (BMI) of 36.0 to 36.9 in adult, unspecified obesity type (HCC)] Onset: 01-01-2023 Chronic Other nutritional; endocrine; and metabolic disorders (20 sources) Obese class I; Translations: [Obesity, Class I, BMI 30-34.9] Onset: 09-03-2018 06-04-2019 Other skin disorders (1 source) Localized swelling, mass and lump, head; Translations: [LOCALIZED SWELLING MASS AND LUMP HEAD] Onset: 08-10-2019 Episodic Otitis media and related conditions (2 sources) Acute serous otitis media of left ear; Translations: [Acute serous otitis media, left ear] Onset: 06-19-2021 Episodic Residual codes; unclassified (16 sources) Altered mental status; Translations: [Altered mental status, unspecified altered mental status type] Episodic Residual codes; unclassified (1 source) Finding related to awareness of diagnosis; Translations: [Other specified conditions influencing health status] Episodic Residual codes; unclassified (1 source) Gestation period, 15 weeks; Translations: [15 weeks gestation of ] Episodic Residual codes; unclassified (2 sources) Gestation period, 20 weeks; Translations: [20 weeks gestation of ] Episodic Residual codes; unclassified (1 source) Gestation period, 26 weeks; Translations: [26 weeks gestation of ] Episodic Residual codes; unclassified (1 source) Gestation period, 28 weeks; Translations: [28 weeks gestation of ] Episodic Residual codes; unclassified (1 source) Gestation period, 30 weeks; Translations: [30 weeks gestation of ] Episodic Residual codes; unclassified (3 sources) Gestation period, 32 weeks; Translations: [32 weeks gestation of ] Episodic Residual codes; unclassified (1 source) Gestation period, 33 weeks; Translations: [33 weeks gestation of ] Episodic Residual codes; unclassified (2 sources) Gestation period, 34 weeks; Translations: [34 weeks gestation of ] Episodic Residual codes; unclassified (2 sources) Gestation period, 35 weeks; Translations: [35 weeks gestation of ] Episodic Residual codes; unclassified (2 sources) Gestation period, 36 weeks; Translations: [36 weeks gestation of ] Episodic Residual codes; unclassified (1 source) Gestation period, 37 weeks; Translations: [37 weeks gestation of ] Episodic Skin and subcutaneous tissue infections (3 sources) Local infection of the skin and subcutaneous tissue, unspecified; Translations: [Cellulitis of left axilla] Onset: 08-10-2019 Episodic Substance-related disorders (20 sources) Nicotine dependence, unspecified, uncomplicated; Translations: [Nicotine dependence, cigarettes, uncomplicated] Onset: 04-19-2017 Resolved: 10-08-2022 06-04-2019 Chronic Unclassified (1 source) Unknown / UNK(Unknown) Onset: 04-19-2017 Unclassified (1 source) Patient encounter status 12-29-2024 Past or Other Problems Problem Classification Problem Date Documented Da te Episodic/Chronic Administrative/social admission (18 sources) Grand multipara; Translations: [Problems related to multiparity] Onset: 2 Resolved: 3 09-11-2022 Episodic Allergic reactions (20 sources) Allergy status to penicillin; Translations: [Drug allergy] Onset: 7 06-04-2019 Episodic Anxiety disorders (20 sources) Anxiety disorder, unspecified; Translations: [Anxiety] Onset: 7 Resolved: 1 06-04-2019 Chronic Bacterial infection; unspecified site (13 sources) History of methicillin resistant Staphylococcus aureus infection; Translations: [Personal history of Methicillin resistant Staphylococcus aureus infection] Onset: 1 Resolved: 3 09-11-2022 Episodic Diabetes or abnormal glucose tolerance complicating ; childbirth; or the puerperium (20 sources) Gestational diabetes mellitus; Translations: [Gestational diabetes mellitus in , diet controlled] Onset: 2 Resolved: 3 Episodic Esophageal disorders (20 sources) Gastroesophageal reflux disease without esophagitis; Translations: [Gastro-esophageal reflux disease without esophagitis] Onset: 2 Resolved: 3 Chronic Gastritis and duodenitis (16 sources) Helicobacter-associate d gastritis; Translations: [Gastritis, unspecified, without bleeding] Onset: 2 Resolved: 2 11-26-2021 Episodic Gastroduodenal ulcer (except hemorrhage) (20 sources) Peptic ulcer; Translations: [Peptic ulcer, site unspecified, unspecified as acute or chronic, without hemorrhage or perforation] Onset: 2 Resolved: 3 11-26-2021 Chronic Gastrointestinal hemorrhage (1 source) Hemorrhage of anus and rectum; Translations: [HEMORRHAGE OF ANUS AND RECTUM] Onset: 7 Episodic Genitourinary symptoms and ill-defined conditions (4 sources) Frequency of micturition; Translations: [Urgency of urination] Onset: 7 Episodic Headache, including migraine (2 sources) Headache; Translations: [HEADACHE] Onset: 7 Episodic Hemorrhage during ; abruptio placenta; placenta previa (20 sources) Bleeding from female genital tract during ; Translations: [Antepartum hemorrhage, unspecified, unspecified trimester] Onset: 2 Resolved: 2 03-11-2022 Episodic Hypertension complicating ; childbirth and the puerperium (20 sources) Pre-existing hypertension complicating , childbirth and puerperium; Translations: [Unspecified pre-existing hypertension complicating , unspecified trimester] Onset: 2 Resolved: 3 03-05-2022 Chronic Immunizations and screening for infectious disease (4 sources) Requires diphtheria, tetanus and pertussis vaccination; Translations: [Encounter for immunization] Onset: 4 Episodic Inflammatory diseases of female pelvic organs (20 sources) Inflammation of cervix; Translations: [Inflammatory disease of cervix uteri] Onset: 9 06-04-2019 Episodic Other circulatory disease (11 sources) Elevated blood-pressure reading without diagnosis of hypertension; Translations: [Elevated blood-pressure reading, without diagnosis of hypertension] Onset: 2 Resolved: 2 11-26-2021 Episodic Other complications of (20 sources) Maternal obesity complicating , childbirth and the puerperium, antepartum; Translations: [Obesity complicating , first trimester] Onset: 2 Resolved: 3 03-05-2022 Chronic Other complications of (20 sources) Hyperemesis gravidarum; Translations: [Vomiting of , unspecified] Onset: 1 Episodic Other complications of (20 sources) Multigravida of advanced maternal age; Translations: [Supervision of elderly multigravida, first trimester] Onset: 1 Resolved: 3 03-05-2022 Episodic Other complications of (20 sources) Herpes simplex type 2 infection; Translations: [Other viral diseases complicating , unspecified trimester] Onset: 2 Resolved: 3 03-05-2022 Episodic Other complications of (20 sources) Vaginitis in ; Translations: [Infection of other part of genital tract in , unspecified trimester] Onset: 2 Resolved: 3 03-05-2022 Episodic Other complications of (20 sources) Abdominal pain in ; Translations: [Other specified related conditions, unspecified trimester] Onset: 2 Resolved: 3 03-11-2022 Episodic Other complications of (20 sources) Urinary tract infection in ; Translations: [Unspecified infection of urinary tract in , second trimester] Onset: 2 Resolved: 3 03-28-2022 Episodic Other complications of (20 sources) Headache; Translations: [Other specified related conditions, second trimester] Onset: 1 Resolved: 1 Episodic Other complications of (12 sources) Group B Streptococcus carrier; Translations: [Streptococcus B carrier state complicating ] Onset: 1 Resolved: 2 Episodic Other complications of (11 sources) Viral disease in mother complicating , childbirth AND/OR puerperium; Translations: [Other viral diseases complicating , third trimester] Onset: 1 Resolved: 2 10-30-2021 Episodic Other complications of (11 sources) Vomiting of , unspecified; Translations: [Unspecified vomiting of , antepartum condition or complication] Onset: 1 Resolved: 3 10-08-2022 Episodic Other female genital disorders (1 source) Other specified noninflammatory disorders of vagina; Translations: [OTH SPEC NONINFLAMMATORY D/O VAGINA] Onset: 9 Episodic Other infections; including parasitic (20 sources) H/O: infectious disease; Translations: [Personal history of other infectious and parasitic diseases] Onset: 2 Resolved: 3 03-05-2022 Episodic Other nutritional; endocrine; and metabolic disorders (20 sources) Obese class II; Translations: [Obesity, unspecified] Onset: 8 Resolved: 3 08-18-2021 Chronic Other and delivery including normal (20 sources) First trimester ; Translations: [ care status] Onset: 1 Resolved: 3 Episodic Other screening for suspected conditions (not mental disorders or infectious disease) (20 sources) Patient encounter status; Translations: [Encounter for screening for malignant neoplasm of cervix] Onset: 2 Resolved: 3 Episodic Other skin disorders (11 sources) Abdominal mass; Translations: [Localized swelling, mass and lump, trunk] Onset: 8 Resolved: 8 09-03-2018 Episodic Residual codes; unclassified (14 sources) History of drug abuse; Translations: [Personal history of other specified conditions] Onset: 2 03-05-2022 Episodic Residual codes; unclassified (20 sources) Gestation period, 14 weeks; Translations: [14 weeks gestation of ] Onset: 2 Resolved: 2 03-28-2022 Episodic Screening and history of mental health and substance abuse codes (2 sources) Encounter for screening for depression; Translations: [Encounter for screening examination for other mental health and behavioral disorders] Onset: 4 Episodic Suicide and intentional self-inflicted injury (20 sources) Suicidal thoughts; Translations: [Suicidal ideations] Onset: 9 Resolved: 9 06-04-2019 Episodic Unclassified (1 source) Finding related to awareness of diagnosis; Translations: [History of Patient denies medical problems] NEGATED: Highlighted row has not occurred!Residual codes; unclassified (2 sources) Disease Episodic Results Test Name Value Interpretation Reference Range Facility Absolute lymphocyte countOrd ered By: Yvon Becker on 02-21-2025 Lymphocytes Auto (Unsp spec) [#/Vol] 2.68 10*3/uL 0.83-4.51 [facility] Absolute neutrophil countOrd ered By: Yvon Becker on 02-21-2025 Neutrophils (Bld) [#/Vol] 5.3 10*3/uL 2.0-7.7 [facility] Anion gap in Serum or Plasma Ordered By: Yvon Becker on 02-21-2025 Anion gap [Moles/Vol] 11 mmol/L - [facility] Automated lymphocyte count a s percentage of total leukocytesOrdered By: Yvon Becker on 02-21-2025 Lymphocytes/100 WBC Auto (Unsp spec) 29.7 % - [facility] BUN/creatinine ratioOrdered By: Yvon Becker on 02-21-2025 Urea nitrogen/Creatinine [Mass ratio] 15.4 mg/mg - [facility] Basophil percentageOrdered B y: Yvon Becker on 02-21-2025 Basophils/100 WBC (Bld) 0.9 % 0-1 [facility] Bilirubin Test strip Ql (U)O rdered By: Yvon Becker on 02-21-2025 Bilirubin Ql (U) Negative Negative [facility] Bilirubin, totalOrdered By: Yvon Becker on 02-21-2025 Bilirubin [Mass/Vol] 0.20 mg/dL 0.00-1.30 [facility] Carbon dioxide, total [Moles /volume] in Central venous bloodOrdered By: Yvon Becker on 02-21-2025 CO2 [Moles/Vol] 22.8 mmol/L 21.0-32.0 [facility] Chloride assayOrdered By: Yashira Becker on 02-21-2025 Chloride [Moles/Vol] 106 mmol/L 98-108 [facility] Eosinophil percentageOrdered By: Yvon Becker on 02-21-2025 Eosinophils/100 WBC (Bld) 2.0 % 0-5 [facility] Erythrocyte distribution wid th ratioOrdered By: Yvon Rosita on 02-21-2025 Erythrocyte distribution width (RBC) [Ratio] 12.2 % 11.6-14.6 [facility] Erythrocyte distribution wid th standard deviationOrdered By: Yvon Vizcarra on 02-21-2025 Erythrocyte distribution width (RBC) [Ratio] 42.2 fl 35.1-43.9 [facility] Glomerular filtration rate ( GFR) estimation/1.73 sq m using serum, plasma, or whole bOrdered By: Yvon Becker on 02-21-2025 GFR/1.73 sq M.predicted among non-blacks MDRD (S/P/Bld) [Vol rate/Area] 108 mL/min/{1.73_m2} >60 [facility] Comment on above: mL/min/1.73m2 CKD-EP I Creatinine Equation (2020) Hematocrit Auto (Bld) [Volum e fraction]Ordered By: Yvon Becker on 02-21-2025 Hematocrit (Bld) [Volume fraction] 41.0 % 37-47 [facility] Hemoglobin measurementOrdere d By: Yvon Becker on 02-21-2025 Hemoglobin (Bld) [Mass/Vol] 13.5 g/dL 12.0-15.0 [facility] Immature granulocytes/100 WB C Auto (Bld)Ordered By: Yvon Becker on 02-21-2025 Immature granulocytes/100 WBC (Bld) 0.200 % 0.0-0.9 [facility] Comment on above: IG% - Immature Granu locytes (promyelocytes, myelocytes and metamyelocytes) > 1% indicates that a LEFT SHIFT is Present. Ketones Test strip Ql (U)Ord ered By: Yvon Becker on 02-21-2025 Ketones Ql (U) Negative Negative [facility] Laboratory - Chemistry and C hemistry - challengeOrdered By: Yvon Becker on 02-21-2025 AST [Catalytic activity/Vol] 34 U/L High <32 [facility] Comment on above: Hemolysis present, R esults could be affected. Lactic acid measurementOrder ed By: Yvon Becker on 02-21-2025 Lactate [Moles/Vol] 1.8 mmol/L 0.0-2.0 [facility] Lipase measurementOrdered By : Yvon Becker on 02-21-2025 Lipase [Catalytic activity/Vol] 46 U/L 13-75 [facility] Comment on above: Please note:LIPASE r evised reference range effective 22. New Lipase methodology. Expected to produce lower values than the previous assay method. NEW Reference Range: 13 - 75 U/L MCV (mean corpuscular volume ) determinationOrdered By: Yvon Becker on 02-21-2025 MCV (RBC) [Entitic vol] 93.2 fL 81-99 [facility] Mean corpuscular hemoglobin (MCH) determinationOrdered By: Yvon Becker on 02-21-2025 MCH (RBC) [Entitic mass] 30.7 pg 27.0-32.0 [facility] Mean corpuscular hemoglobin concentration (MCHC) determinationOrdered By: Yvon Becker on 02-21-2025 MCHC (RBC) [Mass/Vol] 32.9 g/dL 32-36 [facility] Mean platelet volume determi nationOrdered By: Yvon Becker on 02-21-2025 Platelet mean volume (Bld) [Entitic vol] 9.3 fL 6.2-12.0 [facility] Microscopic analysis of urin e for red blood cells (RBC)Ordered By: Yvon Becker on 02-21-2025 Microscopic analysis of urine for red blood cells (RBC) 0-5 SEEN /hpf 0-5 [facility] Monocyte percentageOrdered B y: Yvon Becker on 02-21-2025 Monocytes/100 WBC (Bld) 8.0 % 0-10 [facility] Mucus LM Ql (Urine sed)Order ed By: Yvon Becker on 02-21-2025 Mucus Ql (Urine sed) 0 SEEN /hpf [facility] Neutrophil percentageOrdered By: Yvon Becker on 02-21-2025 Neutrophils/100 WBC (Bld) 59.2 % 47-70 [facility] Nitrite Test strip Ql (U)Ord ered By: Yvon Becker on 02-21-2025 Nitrite Ql (U) Negative Negative [facility] Nucleated red blood cell per centageOrdered By: Yvon Becker on 02-21-2025 Nucleated RBC/100 WBC (Bld) [Ratio] 0 % 0-5 [facility] Platelet countOrdered By: Yashira gamblel Rosita on 02-21-2025 Platelets (Bld) [#/Vol] 390 10*3/uL 150-450 [facility] Potassium measurement (mass/ volume)Ordered By: Yvon Becker on 02-21-2025 Potassium (Unsp spec) [Mass/Vol] 5.0 mmol/L 3.3-5.1 [facility] Comment on above: Hemolysis present, R esults could be affected. Protein Test strip Ql (U)Ord ered By: Yvon Becker on 02-21-2025 Protein Ql (U) Negative Negative [facility] RBC Auto (Bld) [#/Vol]Ordere d By: Yvon Becker on 02-21-2025 RBC (Bld) [#/Vol] 4.40 10*6/uL 4.2-5.4 [facility] Serum creatinine measurement (mass/volume)Ordered By: Yvon Becker on 02-21-2025 Creatinine [Mass/Vol] 0.73 mg/dL 0.70-1.20 [facility] Serum globulin measurementOr dered By: Yvon Becker on 02-21-2025 Globulin (S) [Mass/Vol] 2.9 g/dL 2.2-4.2 [facility] Serum glucose measurement (m ass/volume)Ordered By: Yvon Becker on 02-21-2025 Glucose [Mass/Vol] 94 mg/dL 70-99 [place] Serum or plasma alanine daugherty otransferase (ALT) measurementOrdered By: Yvon Becker on 02-21-2025 ALT [Catalytic activity/Vol] 16 U/L <35 [facility] Comment on above: Hemolysis present, R esults could be affected. Serum or plasma albumin hong urement (mass/volume)Ordered By: Yvon Vizcarra on 02-21-2025 Albumin [Mass/Vol] 4.0 g/dL 3.5-5.0 [place] Serum or plasma albumin/glob ulin mass ratioOrdered By: Yvon Becker on 02-21-2025 Albumin/Globulin [Mass ratio] 1.4 {ratio} 0.9-2.4 [facility] Serum or plasma alkaline katherine sphatase measurementOrdered By: Yvon Becker on 02-21-2025 ALP [Catalytic activity/Vol] 66 U/L 35-104 [facility] Comment on above: Hemolysis Present, R esults may be affected. Serum or plasma calcium hong urement (mass/volume)Ordered By: Yvon Vizcarra on 02-21-2025 Calcium [Mass/Vol] 9.2 mg/dL 7.6-11.0 [place] Serum or plasma urea nitroge n measurement (mass/volume)Ordered By: Yvon Becker on 02-21-2025 Urea nitrogen [Mass/Vol] 11 mg/dL 4-19 [facility] Sodium levelOrdered By: Jone Becker on 02-21-2025 Sodium [Moles/Vol] 140 mmol/L 133-145 [place] Squamous epithelial cells de tection in urine sediment by light microscopyOrdered By: Yvon Becker on 02-21-2025 Epithelial cells.squamous LM Ql (Urine sed) 0-5 SEEN /hpf 5-10 [facility] Total proteinOrdered By: Claude Becker on 02-21-2025 Protein [Mass/Vol] 6.9 g/dL 5.9-8.4 [place] Urine clarityOrdered By: Claude Becker on 02-21-2025 Clarity (U) Clear Clear [facility] Urine color determinationOrd ered By: Yvon Becker on 02-21-2025 Color (U) Straw Yellow [facility] Urine glucose detectionOrder ed By: Yvon Becker on 02-21-2025 Glucose Ql (U) Normal mg/dl Normal [facility] Urine leukocyte esterase det ection by dipstickOrdered By: Yvon Becker on 02-21-2025 Leukocyte esterase Test strip Ql (U) Negative Negative [facility] Urine pHOrdered By: Yvon Arita on 02-21-2025 pH (U) 7.0 [pH] 5.0 - 8.0 [facility] Urine sediment bacteria coun t by microscopy (number/high power field)Ordered By: Yvon Becker on 02-21-2025 Bacteria LM.HPF (Urine sed) [#/Area] 0 /[HPF] None Seen [facility] Urine specific gravity measu rementOrdered By: Yvon Becker on 02-21-2025 Specific gravity (U) [Rel density] 1.010 1.002-1.030 [facility] Urine urobilinogen measureme ntOrdered By: Yvon Becker on 02-21-2025 Urobilinogen Ql (U) Normal mg/dl Normal [facility] White blood cell (WBC) count Ordered By: Yvon Becker on 02-21-2025 WBC (Bld) [#/Vol] 9.0 10*3/uL 4.4-11.0 [place] White blood cell countOrdere d By: Yvon Becker on 02-21-2025 White blood cell count 0-5 SEEN /hpf 0-5 [facility] Discharge Instructionon 06 Discharge Instruction [facility] Medical Records Department [address] [facility] [place] [address] Instructions for Home/Discharge Instructions 02/14/25 1536 MR#: [id number] Acct: [id number] Name: SIA OLIVERA Rep #: [id number] : 1985 39 From: Desean Rodriguez MD PCP: Hui Valdes NP-C Status:REG [facility] Discharge Instructions Diet Discharge Diet: Light diet - advance as tolerated Activity Discharge Activity: May Shower May shower in (days): 1 Ice area for (Minutes): 30 Lifting Restrictions: Keep lifting under 20 pounds for 6 weeks Dressing / Incision Call your doctor if your incision/area has: Continuous Slow Oozing, Sudden Increased Bleeding, Increased Pain/ Swelling, Increased Redness, Foul Smelling Discharge and Swelling at the incision site Call your doctor if you observe: Fever of 101 or Higher Cleanse incision/area with: Soap Water Additional Dressing/Incision Instructions:: Wear abdominal binder for comfort Follow Up Care Please Follow Up With: Desean Rodriguez MD When: 2 weeks. Please call office to schedule appointment Test Results: Test results from this visit will be discussed in further detail at your follow-up appointment, if applicable. Discharge Plan Admission Primary Reason for Your Visit: Ventral hernia repair with mesh Attending Provider: Desean Rodriguez Primary Care Provider: Hui Valdes NP Instructions Print Language: French Discharge Orders/Prescriptions Prescriptions: New oxycodone-acetaminophen [Percocet] 5-325 mg tablet 1 tab PO Q8H PRN (Reason: pain) 4 Days Qty: 10 0RF Continued sumatriptan succinate 25 mg tablet 25 mg PO ONCE PRN (Reason: migraine headache) solifenacin 10 mg tablet 5 mg PO QDAY atomoxetine 80 mg capsule 80 mg PO QAM venlafaxine 75 mg capsule,extended release 24hr 75 mg PO QAM metoprolol succinate 25 mg tablet extended release 24 hr 25 mg PO QDAY Referrals / Follow Up: Hui Valdes NP, 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 [Primary Care Provider] - Disposition Disposition (needs filled in before D/C Order can be placed): Home, Self Care 02/14/25 1546 Desean Rodriguez MD CC: 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 Hui Podlogar Signed [facility] MR/POSTOP.[facility] 02-14-2025 MR/POSTOP.[facility] Medical Records Department [address] [address] Anesthesia Postop Eval I 02/14/25 1554 MR#: [id number] Acct: [id number] Name: SIA OLIVERA Rep #: [id number] : 1985 39 From: Royce Gomez CRNA PCP: Hui Valdes 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 Status:REG SDC Y Race: C Location: [place] [address] Anesthesia: Postop Eval I Current Vital Signs Temperature: 97.8 F Pulse Rate: 88 Blood Pressure: 117/81 Respiratory Rate: 16 Pulse Ox: 100 Oxygen Delivery Method: Non-Rebreather Oxygen Flow Rate (L/min): 8 Assessment Airway patent: Yes Spontaneous unlabored respirations: Yes Mental status: Awake and Calm nausea: No Vomiting: No Anesthesia Complication: No Fluid Hydration Crystalloid volume administer (ml): 1,000 Total IV fluid infused: 1,000 Progress Note Anesthesia document: Postop Eval 1 completed: Yes 02/14/25 1645 Date Royce Gomez COOK HOUSE SUPERVISOR Cosigner Signature: Date CC: Signed Normal [facility] MR/[id number] 02-14-2025 MR/POSTOPAN2 [facility] Medical Records Department [address] [place] [address] Anesthesia Postop Eval II 02/14/25 1637 MR#: [id number] Acct: [id number] Name: SIA OLIVERA Rep #: [id number] : 1985 39 From: Guille Shin MD PCP: KOSTA Gomez Status:REG SDC Y Race: C Location: [place] [address]- Anesthesia Postop Eval I Sum Postop Eval Completion status Anesthesia document: Postop Eval 1 completed: Yes Anesthesia Postop Eval I Summary Anesthesia Postop Eval I Summary: Anesthesia Postop Eval I: Assessment Summary Airway patent Yes 02/14/25 15:55 COOK HOUSE SUPERVISOR.SOBR Spontaneous unlabored Yes 02/14/25 15:55 COOK HOUSE SUPERVISOR.SOBR respirations Mental status Awake,Calm 02/14/25 15:55 COOK HOUSE SUPERVISOR.SOBR nausea No 02/14/25 15:55 COOK HOUSE SUPERVISOR.SOBR Vomiting No 02/14/25 15:55 COOK HOUSE SUPERVISOR.SOBR Anesthesia Postop Eval I: Fluid Summary Crystalloid volume administer 1,000 02/14/25 15:55 COOK HOUSE SUPERVISOR.SOBR (ml) Colloids volume administered ( ml) Blood Product volume administered (ml) Total IV fluid infused 1,000 02/14/25 15:55 COOK HOUSE SUPERVISOR.SOBR Anesthesia Postop Eval I: Summary Notes Anesthesia Complication No 02/14/25 15:55 COOK HOUSE SUPERVISOR.SOBR Anesthesia Complication Comment: Post-operative progress note Anesthesia: Postop Eval II Evaluation Mental status: Awake Pain Level: 0 nausea: No Vomiting: No Complications Anesthesia Complication: No 02/14/25 1637 Date Guille Shin MD Cosigner Signature: Date CC: Signed Normal [facility] Operative Reporton 5 Operative Report [facility] Medical Records Department [address] [place] [address] Operative Report 02/14/25 1546 MR#: [id number] Acct: [id number] Name: SIA OLIVERA Rep #: [id number] : 1985 39 From: Desean Rodriguez MD PCP: Hui Valdes 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 Status:REG [facility] Location: [place] [address] Problems Associated Problem List Diagnoses (1) Ventral hernia: Procedures Digestive 40xxx-49xxx: 75558 RPR AA HRN 11-22 NCR/STRN Operative Report (Standard) Operative Information Date of Procedure: 02/14/25 Pre-Operative Diagnosis: Ventral hernia -chronically incarcerated Post-Operative Diagnosis: Same Surgery/Procedure Performed: Open ventral hernia repair with mesh casting sorter: Yes Vice President Corporate Communications: Kristine Larose Tasks completed by assistant spa manager: Closing and Retracting Additional assistant professor of psychology?: No Type of Anesthesia: General and Local RN Documented Start/Stop Times: Operation Date: 02/14/25 14:30 Case Time Into Pre-Op 02/14/25 13:03 Out of Pre-Op 02/14/25 14:24 Anesthesia Start 02/14/25 14:28 Into Room 02/14/25 14:28 Procedure Start 02/14/25 14:48 Procedure End 02/14/25 15:43 Procedure Start Time: 14:48 Procedure Stop Time: 15:43 Select all DRAINS/GRAFTS/IMPLANTS that apply: Prosthetic device Prosthetic device details: Ventralex ST 6.4 cm mesh Special Medications: 2 g Ancef IV Estimated Blood Loss: Minimal Specimen collected: Yes Description of specimen(s) removed: Hernia sac and contents Description of surgery: The patient is a 39-year-old female who is recently seen through the office with a ventral hernia. This was just above the umbilicus. The overall dimensions of the hernia bulge was about 8 cm. I had her undergo a CT scan of the abdomen. This revealed a fat-containing hernia with a fascial defect size about 2-1/2 to 3 cm based on estimation of the images. I offered her an open repair with mesh. We discussed the details of the planned procedure and she wished to proceed. She was brought to the operating room today following informed consent. Preoperative antibiotics were given and a timeout was performed. She was placed supine on the operative table with arms outstretched and arm boards. The abdomen is then prepped and draped the usual sterile manner. Local anesthetic was infiltrated into the region just above the umbilicus. #15 blade was then used to make the skin incision. Bovie electrocautery was then used dissect down through the subcutaneous tissues. The fat-containing hernia and sac were identified. This was freed up. This hernia was partially reducible but there was components that were nonreducible and thus chronically incarcerated. The dissection was carried down to the level of the fascia. The hernia sac was excised. The hernia contents were omental fat. This was freed up. Attempts were made to reduce the hernia however this was unsuccessful. Some of the omentum was excised. Christina clamps and ties were used for hemostasis purposes. The hernia contents were then able to be easily reduced. The fascial defect was about 3 cm in greatest dimension. I then selected a Ventralex ST circular mesh with a diameter of 6.4 cm. This was placed in antibiotic solution. This was then inserted 0 Nurolon was then used to secure the mesh in place and 4 points. This mesh laid very nicely. I then closed the fascial defect using interrupted 0 Nurolon sutures. An additional 7 or 7 sutures were placed to close the fascia. This closed very nicely. Hemostasis was excellent. The wound was copiously irrigated with saline. 3-0 Vicryl was then used to close the subdermal layer. 4-0 Vicryl was then run in the skin. Skin glue was applied as dressing and abdominal binder was also placed. She was awakened from anesthesia and taken to recovery in good condition Surgical Findings: 3 cm fascial defect Fat-containing hernia Complications Complications: No Admit VTE Documentation VTE Present on Admission: No VTE Mechan Device Prophylaxis: SCD's VTE Pharm Prophylaxis ordered?: No Reason prophylaxis not ordered: Treatment Not Indicated 02/14/25 4145 Cosigner Signature (if applicable): CC: KOSTA Ames Podlogar; Dr. Desean Rodriguez MD Signed Normal [facility] ,Urineon 02-14-2025 Beta HCG ( test) Ql (U) Negative Normal [facility] Comment on above: Result Comment: Very dilute urine specimens, as indicated by a low specific gravity, may not contain petroleum products sales representative levels of hCG. If is still suspected, a first morning urine specimen should be collected 48 hours later and tested. Performed By: #### L 400.7600 #### [facility] [place], [address] Surgery Specimen Level IIon 02-14-2025 Surgery Specimen Level II Patient Age/Sex Location Account Attending Physician AMANUELSIA MARX Mirza 39/F [facility] [id number] Dr. Desean Rodriguez MD Specimen: [id number] Received: 02/15/25 Status: ANALia Dorado Num: [id number] Spec Type: Hernia Subm Dr: Dr. Desean Rodriguez MD HEADER OPERATION: Mati, ventral repair with mesh PRE-OP DIAGNOSIS: Ventral hernia TISSUE SUBMITTED: A- Hernia sac and contents MICROSCOPIC DIAGNOSIS A. Soft tissue, hernia sac and contents, ventral hernia repair: Fibroadipose tissue with fibrosis and mild chronic inflammation, partially covered by mesothelium, consistent with hernia sac. MICROSCOPIC DESCRIPTION Slides are reviewed. GROSS DESCRIPTION A. Received in formalin in a container labeled with the patient's name, date of , and hernia sac and contents are 2 schmidt-yellow, unoriented, and irregular fragments of fatty tissue measuring 8.1 x 5.0 x 2.5 cm and 15.0 x 5.3 x 2.4 cm. The smallest fragment semisaccular and thinly encapsulated. Serial sections reveal yellow-back, membranous surfaces with the inner lining of the semisaccular area appearing smooth and glistening. The fatty tissue exhibits schmidt-pink, somewhat indurated fibrous areas. No distinct hemorrhage or necrosis is grossly recognized. The larger fragment is finely lobulated and serially sectioned to reveal homogenous schmidt-yellow surfaces with scattered thin vasculature. No nodules or necrosis is identified. Gas Manager sections:A1. Semisaccular portion with fibrous areasA2. Larger finely lobulated fragment [facility] 02-15-2025 CPT:34236 Patient Age/Sex Location Account Attending Physician SIA OLIVERA Mirza 39/F [facility] [id number] Dr. Desean Rodriguez MD Signed (signature on file) Dr. Joanna Ram MD 02/17/25 1314 Normal [facility] Comment on above: Performed By: #### P LYNDSEYII #### [facility] [address] [place] [address]. [place], [place], [id number] Urine testOrdered By: Paul Cox on 02-14-2025 HCG ( test) Ql (U) Negative [facility] Comment on above: Very dilute urine sp ecimens, as indicated by a low specificgravity, may not contain petroleum products sales representative levels of hCG. If is still suspected, a first morning urinespecimen should be collected 48 hours later and tested. Surgery Visit Reporton 02-02 Surgery Visit Report [facility] [address] [place], [place] [address]nad[address]. [address] [place] [address] OFFICE VISIT Date of Service: 02/02/25 MR#: [id number] Acct: [id number] Name: SIA OLIVERA Mirza Rep #: [id number] : 1985 Provider: Dr. Desean ritter MD Age/Sex: 39/F Location: [facility] Status: Signed Intake Vital Signs 01/15/25 17:48 01/25/25 11:00 02/02/25 13:06 Height 5 ft 4 in 5 ft 4 in 5 ft 4 in Weight: 164 lb BMI 28.1 BP 127/79 H Blood Pressure Location Rt brachial Position Sitting Respiration 17 Pulse 90 Pulse Source Monitor Pulse Oximetry (%) 98 Oxygen Delivery Method room air Intake Visit Reasons: VENTRAL HERNIA Chief Complaint: ventral hernia Is patient in pain?: No Allergies amoxicillin Allergy (Unknown, Verified 02/02/25 13:09) unknown Medications ???Medication ???Instructions ???Recorded ???Confirmed ???Type atomoxetine 80 mg capsule 80 mg PO QAM 02/02/25 02/02/25 His tory metoprolol succinate 25 mg 25 mg PO QDAY 02/02/25 02/02/25 Hi story tablet,extended release 24 hr solifenacin 10 mg tablet 10 mg PO QDAY 02/02/25 02/02/25 Hi story sumatriptan succinate 25 mg tablet 25 mg PO ONCE PRN 02/02/2502/02 History venlafaxine 75 mg capsule,extended 75 mg PO QAM 02/02/25 02/02/25 H istory release 24 hr PFSH Medical History Tachycardia IUD (intrauterine device) in place Surgical History Previous section Family History Son Asthma Grandmother Diabetes Breast cancer Father Hypertension Social History Smoking Status: Current every day smoker tobacco type: e-cigarettes quit status: not considering quitting HPI HPI HPI: The patient is a 39-year-old female who is being seen today for a ventral hernia. She states she has had this for probably 3 to 5 years of more. She saw a surgeon in the past who recommended weight loss. She has lost quite a bit of weight. She is noticing that this hernia is gradually getting larger and causing her more symptoms of pain and discomfort. She presents today to discuss possibly having this repaired. She does admit that she would like to have more children. She has 2 children currently and she states that during these pregnancies her hernia did become larger and more increasingly symptomatic with these . ROS General General: Yes weight change and fatigue; No appetite, colon cancer, breast cancer or weakness HEENT HEENT: No difficulty swallowing, eye injury, eye surgery, swollen glands or hoarseness Endo Endocrine: No thyroid disease, diabetes mellitus, thyroid cancer, Hair loss, heat intolerance or cold intolerance Skin Skin: No rash or changing moles Musc Musculoskeletal: Yes back problems; No arthritis, rheumatoid arthritis, gout or joint pain Cardio Cardiovascular: No murmur, pacemaker, heart disease, atrial fibrillation, high blood pressure, heart attack, heart stent, palpitations, shortness of breath with exertion or chest pain Psych Psychiatric: Yes depression and anxiety; No hearing voices Resp Respiratory: No shortness of breath, No sleep apnea, No cough, No COPD, No asthma, No emphysema and No wheezing Gastro Gastrointestinal: Yes abdominal pain, Yes nausea or vomiting, No diarrhea, Yes constipation, Yes blood in stool, No acid reflux, Yes hemorrhoids, No ulcers, No gallbladder problem and No black,tarry stools Aman Hematologic: No blood thinners, No blood disorders, No bleeding, No anemia and No blood clots Neuro Neurologic: No system reviewed and no additional complaints, except as documented, No as per HPI, No abnormal gait, No abnormal hearing, No abnormal movements, No abnormal speech, No behavioral changes, No burning sensations, No confusion, No convulsions, No disequilibrium, No dizziness, No localized weakness, No frequent falls, No headache(s), No lack of coordination, No loss of vision, No memory loss, No numbness, No other visual disturbances, No radicular pain, No restless legs, No sensory deficit, No syncope, No tingling, No tremor(s), No weakness and No other Exam Const General: cooperative, healthy appearing and comfortable [facility] Head: normal to inspection, normocephalic and atraumatic Eyes General: appearance normal, both eyes and all related structures Resp Effort Inspection: normal respiratory effort and able to speak in complete sentences GI Other: Visibly obvious ventral hernia just above the umbilicus. This appears to be about 8 cm in maximal diameter. Fascial defect on CT scan is about 2-1/2 cm or so. It is not completely reducibl (more content not included)... Normal [facility] Abdomen/Pelvis W IV Cont ONL Yon 01-15-2025 Abdomen/Pelvis W IV Cont ONLY [facility] Imaging Services [address] [place] [address] Abdomen/Pelvis W IV Cont ONLY MR#: [id number] Acct: [id number] Name: SIA OLIVERA Rep #: [id number] : 1985 F 39 From: Seng zaman MD PCP: KOSTA Gomez Status: REG ER Study: Abdomen/Pelvis W IV Cont ONLY Date of Exam: Exam# [id number] Ordering Dr: Cierra Dinero PROCEDURE: ABDOMEN/PELVIS W IV CONT ONLY 01/15/2025 REASON FOR EXAM: IRREDUCIBLE HERNIA TECHNIQUE: Abdomen and pelvis CT with intravenous contrast. Coronal and Sagittal reconstruction series were provided. PATIENT PREPARATION: Per protocol ORAL CONTRAST TYPE: None. AMOUNT: mL CONTRAST: Omnipaque 350 VOLUME: 100 mL One or more dose reduction techniques were used (e.g., Automated exposure control, adjustment of the mA and/or kV according to patient size, use of iterative reconstruction technique. COMPARISON: None FINDINGS: Lung bases: Unremarkable Liver: Homogeneous attenuation. No focal lesion. Gallbladder: No ductal dilation. Cholelithiasis. Spleen: Normal size. Pancreas: Normal size without evidence of mass surrounding inflammation or ductal dilation. Adrenals: Unremarkable Kidneys: Normal renal sizes. No hydronephrosis. Bladder: Urinary bladder is unremarkable. Reproductive Organs: IUD is noted. Bilateral adnexal cysts. Bowel: Stomach is unremarkable. No bowel dilation. Large colonic stool. Appendix: Normal appendix. Lymph nodes: No suspicious lymph node enlargement. Vasculature: The abdominal aorta and IVC are normal. Peritoneum / Retroperitoneum: No ascites. No pneumoperitoneum. Bones: No degenerative changes. Soft tissue: 4.6 x 8.0 cm fat containing umbilical hernia, with 2.5 cm diastasis of the rectus sheath. CT/Abdomen/Pelvis W IV Cont ONLY IMPRESSION: No acute findings in the abdomen or pelvis. Cholelithiasis. 8 cm fat containing umbilical hernia with rectus sheath diastasis. Reading Location: [facility] CC: KOSTA Ames Podlogar; YVAN Cadena Bench Assembly Inspector: Signed Normal [facility] Absolute lymphocyte countOrd ered By: Cierra Dinero on 01-15-2025 Lymphocytes Auto (Unsp spec) [#/Vol] 3.13 10*3/uL 0.83-4.51 [facility] Absolute neutrophil countOrd ered By: Cierra Dinero on 01-15-2025 Neutrophils (Bld) [#/Vol] 5.2 10*3/uL 2.0-7.7 [facility] Anion gap in Serum or Plasma Ordered By: Cierra Dinero on 01-15-2025 Anion gap [Moles/Vol] 12 mmol/L 5- [facility] Automated lymphocyte count a s percentage of total leukocytesOrdered By: Cierra Dinero on 01-15-2025 Lymphocytes/100 WBC Auto (Unsp spec) 33.2 % 19-41 [facility] BUN/creatinine ratioOrdered By: Cierra Dinero on 01-15-2025 Urea nitrogen/Creatinine [Mass ratio] 14.5 mg/mg 10- [facility] Basic Metabolic Profile (BMP )on 01-15-2025 BUN/CRE 14.5 RATIO Normal - [facility] Comment on above: Performed By: #### L 500.2500, L100.0100 #### [facility] [address] [place], [address] Calcium [Mass/Vol] 9.2 mg/dL Normal 7.6-11.0 [place] Comment on above: Performed By: #### L 500.2500, L100.0100 #### [facility] [address] [place], [address] Chloride [Moles/Vol] 104 mmol/L Normal 98-108 [facility] Comment on above: Performed By: #### L 500.2500, L100.0100 #### [facility] [address] [place], [address] CO2 [Moles/Vol] 22.8 mmol/L Normal 21.0-32.0 [facility] Comment on above: Performed By: #### L 500.2500, L100.0100 #### [facility] [address] [place], [address] Creatinine [Mass/Vol] 0.76 mg/dL Normal 0.70-1.20 [facility] Comment on above: Performed By: #### L 500.2500, L100.0100 #### [facility] [address] [place], [address] ECRCL 99.31 ml/min Normal 50-250 [facility] Comment on above: Performed By: #### L 500.2500, L100.0100 #### [facility] [address] [place], [address] GAP 12 Normal 5-15 [facility] Comment on above: Performed By: #### L 500.2500, L100.0100 #### [facility] [address] [place], [address] GFR/1.73 sq M.predicted among non-blacks MDRD (S/P/Bld) [Vol rate/Area] 103 mL/min/{1.73_m2} Normal >60 [facility] Comment on above: Result Comment: mL/m in/1.73m2 CKD-EPI Creatinine Equation (2020) Performed By: #### L 500.2500, L100.0100 #### [facility] [address] [place], [address] Glucose [Mass/Vol] 94 mg/dL Normal 70-99 [place] Comment on above: Performed By: #### L 500.2500, L100.0100 #### [facility] [address] [place], [address] Potassium [Moles/Vol] 4.2 mmol/L Normal 3.3-5.1 [facility] Comment on above: Performed By: #### L 500.2500, L100.0100 #### [facility] [address] [place], [address] Sodium [Moles/Vol] 139 mmol/L Normal 133-145 [place] Comment on above: Performed By: #### L 500.2500, L100.0100 #### [facility] [address] [place], [address] Urea nitrogen [Mass/Vol] 11 mg/dL Normal 4-19 [facility] Comment on above: Performed By: #### L 500.2500, L100.0100 #### [facility] [address] [place], [address] Basophil percentageOrdered B y: Cierra Dinero on 01-15-2025 Basophils/100 WBC (Bld) 1.1 % High 0-1 [facility] CBC W/Diff, Automatedon Absolute Lymph 3.13 X10 3/uL Normal 0.83-4.51 [facility] Comment on above: Performed By: #### L 500.2500, L100.0100 #### [facility] [address] [place], [address] Absolute Neut 5.2 X10 3/uL Normal 2.0-7.7 [facility] Comment on above: Performed By: #### L 500.2500, L100.0100 #### [facility] [address] [place], [address] Basophils/100 WBC (Bld) 1.1 % High 0-1 [facility] Comment on above: Performed By: #### L 500.2500, L100.0100 #### [facility] [address] [place], [address] Eosinophils/100 WBC (Bld) 2.0 % Normal 0-5 [facility] Comment on above: Performed By: #### L 500.2500, L100.0100 #### [facility] [address] [place], [address] Erythrocyte distribution width (RBC) [Ratio] 12.1 % Normal 11.6-14.6 [facility] Comment on above: Performed By: #### L 500.2500, L100.0100 #### [facility] [address] [place], [address] Hematocrit (Bld) [Volume fraction] 40.0 % Normal 37-47 [facility] Comment on above: Performed By: #### L 500.2500, L100.0100 #### [facility] [address] [place], [address] Hemoglobin (Bld) [Mass/Vol] 13.8 g/dL Normal 12.0-15.0 [facility] Comment on above: Performed By: #### L 500.2500, L100.0100 #### [facility] [address] [place], [address] IG% 0.200 Normal 0.0-0.9 [facility] Comment on above: Result Comment: IG% - Immature Granulocytes (promyelocytes, myelocytes and metamyelocytes) > 1% indicates that a LEFT SHIFT is Present. Performed By: #### L 500.2500, L100.0100 #### [facility] [address] [place], [address] Lymphocytes/100 WBC (Bld) 33.2 % Normal 19-41 [facility] Comment on above: Performed By: #### L 500.2500, L100.0100 #### [facility] [address] [place], [address] MCH (RBC) [Entitic mass] 31.4 pg Normal 27.0-32.0 [facility] Comment on above: Performed By: #### L 500.2500, L100.0100 #### [facility] [address] [place], [address] MCHC (RBC) [Mass/Vol] 34.5 g/dL Normal 32-36 [facility] Comment on above: Performed By: #### L 500.2500, L100.0100 #### [facility] [address] [place], [address] MCV (RBC) [Entitic vol] 91.1 fL Normal 81-99 [facility] Comment on above: Performed By: #### L 500.2500, L100.0100 #### [facility] [address] [place], [address] Monocytes/100 WBC (Bld) 8.8 % Normal 0-10 [facility] Comment on above: Performed By: #### L 500.2500, L100.0100 #### [facility] [address] [place], [address] Neutrophils/100 WBC (Bld) 54.7 % Normal 47-70 [facility] Comment on above: Performed By: #### L 500.2500, L100.0100 #### [facility] [address] [place], [address] Nucleated RBC (Bld) [#/Vol] 0 10*3/uL Normal 0-5 [facility] Comment on above: Performed By: #### L 500.2500, L100.0100 #### [facility] [address] [place], [address] Platelet mean volume (Bld) [Entitic vol] 8.9 fL Normal 6.2-12.0 [facility] Comment on above: Performed By: #### L 500.2500, L100.0100 #### [facility] [address] [place], [address] Platelets (Bld) [#/Vol] 365 10*3/uL Normal 150-450 [facility] Comment on above: Performed By: #### L 500.2500, L100.0100 #### [facility] [address] [place], [address] RBC (Bld) [#/Vol] 4.39 10*6/uL Normal 4.2-5.4 [facility] Comment on above: Performed By: #### L 500.2500, L100.0100 #### [facility] [address] [place], [address] RDW SD 40.7 fl Normal 35.1-43.9 [facility] Comment on above: Performed By: #### L 500.2500, L100.0100 #### [facility] [address] [place], [address] WBC (Bld) [#/Vol] 9.4 10*3/uL Normal 4.4-11.0 [place] Comment on above: Performed By: #### L 500.2500, L100.0100 #### [facility] [address] [place], [address] Carbon dioxide, total [Moles /volume] in Central venous bloodOrdered By: Cierra Dinero on 01-15-2025 CO2 [Moles/Vol] 22.8 mmol/L 21.0-32.0 [facility] Chloride assayOrdered By: Mona Dinero on 01-15-2025 Chloride [Moles/Vol] 104 mmol/L 98-108 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 She reports she is usually able to easily reduce this when laying down but since yesterday she has had increased pain to the area and is unable to reduce it. She reports that she has had this hernia for about 3 years, she is not currently following with general surgery for this. She denies history of abdominal surgery. She last had a bowel movement this morning that was normal for her, she reports feeling slightly nauseous. She denies fevers, chills, vomiting, and urinary symptoms. PFSH PFSH Medical History Tachycardia IUD (intrauterine device) in place Umbilical hernia Allergy/AdvReac Type Severity Reaction Status Date / Time amoxicillin Allergy Unknown unknown Verified 01/15/25 17:47 Surgical History Previous section Social History Smoking Status: Current every day smoker tobacco type: e-cigarettes ROS ROS ED Constitutional Constitutional ED: Denies chills or fever(s) Cardiovascular Cardiovascular: Denies chest pain Respiratory/Chest Respiratory/Chest: Denies dyspnea Gastrointestinal Gastrointestinal: Reports abdominal pain and nausea; Denies constipation, diarrhea or vomiting Genitourinary Genitourinary ED: Denies dysuria, hematuria or urinary urgency Musculoskeletal Musculoskeletal: Denies arthralgias or myalgias Integumentary Denies rash Neurologic Neurologic: Denies weakness EXAM Physical Exam Const Vital Signs: 01/15/25 17:48 01/15/25 19:46 Temperature 98.4 F 98.7 F Temperature Source Oral Oral Pulse Rate 78 75 Respiratory Rate 18 16 Blood Pressure 149/96 H 131/86 H Blood Pressure Mean 113 101 Pulse Ox 100 100 Oxygen Delivery Method Room Air Room Air Positive well nourished, well developed and no apparent distress General Appearance ED: well developed HEENT Reports normocephalic and head/scalp atraumatic Mouth ED: Yes moist mucous membranes normal Eyes PERRL and EOMs intact bilaterally Neck full ROM and supple Chest Wall inspection of chest normal Resp normal respiratory effort and clear to auscultation bilaterally Cardio regular rate and regular rhythm GI soft to palpation and non-distended GI Narrative: Moderate sized ventral abdominal hernia that is somewhat tender to palpation, no overlying skin changes. Remainder of abdominal exam is soft and nontender Palpation: Negative for guarding or rebound tenderness present Back/Spine normal ROM and normal to inspection Extremity normal to inspection and full ROM Neuro oriented x3, CN's II-XII intact bilaterally, moves all extremities, no focal motor deficits and no sensory deficits noted Sensorium / Orientation: awake and alert Psych mental status grossly normal and thought process normal Skin no rashes or lesions noted and no wounds Physical Exam Const Vital Signs: 01/15/25 17:48 01/15/25 19:46 Temperature 98.4 F 98.7 F Temperature Source Oral Oral Pulse Rate 78 75 Respiratory Rate 18 16 Blood Pressure 149/96 H 131/86 H Blood Pressure Mean 113 101 Pulse Ox 100 100 Oxygen Delivery Method Room Air Room Air MDM MDM MDM Narrative Medical decision making narrative: Patient presenting today with a ventral hernia that has been painful since yesterday. She reports that she is usually able to easily reduce this but since last night she has not been able to. She last had a bowel movement this morning. On exam, her abdomen is soft and nontender aside from her hernia which is slightly tender. She was given IV Zofran, fluids, and morphine and ice was placed over the hernia, the attending was then able to reduce the majority of her hernia. Basic labs obtained and are unremarkable. CT scan of the abdomen and pelvis with IV contrast shows an 8 cm fat-containing umbilical hernia with rectus sheath diastases, she also has cholelithiasis, no other acute findings. No evidence of bowel obstruction. Patient reports improvement of her symptoms on reexamination. She does not currently have a general surgeon, I have referred her to general surgery here. Recommended she have close follow-up. Return instructions were discussed with her and patient discharged home (more content not included)... Normal [facility] Eosinophil percentageOrdered By: Cierra Dinero on 01-15-2025 Eosinophils/100 WBC (Bld) 2.0 % 0-5 [facility] Erythrocyte distribution wid th ratioOrdered By: Cierra Dinero on 01-15-2025 Erythrocyte distribution width (RBC) [Ratio] 12.1 % 11.6-14.6 [facility] Erythrocyte distribution wid th standard deviationOrdered By: Cierra Dinero on 01-15-2025 Erythrocyte distribution width (RBC) [Ratio] 40.7 fl 35.1-43.9 [facility] Glomerular filtration rate ( GFR) estimation/1.73 sq m using serum, plasma, or whole bOrdered By: Cierra Dinero on 01-15-2025 GFR/1.73 sq M.predicted among non-blacks MDRD (S/P/Bld) [Vol rate/Area] 103 mL/min/{1.73_m2} >60 [facility] Comment on above: mL/min/1.73m2 CKD-EP I Creatinine Equation (2020) Hematocrit Auto (Bld) [Volum e fraction]Ordered By: Cierra Dinero on 01-15-2025 Hematocrit (Bld) [Volume fraction] 40.0 % 37-47 [facility] Hemoglobin measurementOrdere d By: Cierra Dinero on 01-15-2025 Hemoglobin (Bld) [Mass/Vol] 13.8 g/dL 12.0-15.0 [facility] Immature granulocytes/100 WB C Auto (Bld)Ordered By: Cierra Dinero on 01-15-2025 Immature granulocytes/100 WBC (Bld) 0.200 % 0.0-0.9 [facility] Comment on above: IG% - Immature Granu locytes (promyelocytes, myelocytes and metamyelocytes) > 1% indicates that a LEFT SHIFT is Present. MCV (mean corpuscular volume ) determinationOrdered By: Cierra Dinero on 01-15-2025 MCV (RBC) [Entitic vol] 91.1 fL 81-99 [facility] Mean corpuscular hemoglobin (MCH) determinationOrdered By: Cierra Dinero on 01-15-2025 MCH (RBC) [Entitic mass] 31.4 pg 27.0-32.0 [facility] Mean corpuscular hemoglobin concentration (MCHC) determinationOrdered By: Cierra Dinero on 01-15-2025 MCHC (RBC) [Mass/Vol] 34.5 g/dL 32-36 [facility] Mean platelet volume determi nationOrdered By: Cierra Dinero on 01-15-2025 Platelet mean volume (Bld) [Entitic vol] 8.9 fL 6.2-12.0 [facility] Monocyte percentageOrdered B y: Cierra Dinero on 01-15-2025 Monocytes/100 WBC (Bld) 8.8 % 0-10 [facility] Neutrophil percentageOrdered By: Cierra Dinero on 01-15-2025 Neutrophils/100 WBC (Bld) 54.7 % 47-70 [facility] Nucleated red blood cell per centageOrdered By: Cierra Dinero on 01-15-2025 Nucleated RBC/100 WBC (Bld) [Ratio] 0 % 0-5 [facility] Platelet countOrdered By: Mona Dinero on 01-15-2025 Platelets (Bld) [#/Vol] 365 10*3/uL 150-450 [facility] Potassium measurement (mass/ volume)Ordered By: Cierra Dinero on 01-15-2025 Potassium (Unsp spec) [Mass/Vol] 4.2 mmol/L 3.3-5.1 [facility] RBC Auto (Bld) [#/Vol]Ordere d By: Cierra Dinero on 01-15-2025 RBC (Bld) [#/Vol] 4.39 10*6/uL 4.2-5.4 [facility] Serum creatinine measurement (mass/volume)Ordered By: Cierra Dinero on 01-15-2025 Creatinine [Mass/Vol] 0.76 mg/dL 0.70-1.20 [facility] Serum glucose measurement (m ass/volume)Ordered By: Cierra Dinero on 01-15-2025 Glucose [Mass/Vol] 94 mg/dL 70-99 [place] Serum or plasma calcium hong urement (mass/volume)Ordered By: Cierra Dinero on 01-15-2025 Calcium [Mass/Vol] 9.2 mg/dL 7.6-11.0 [place] Serum or plasma urea nitroge n measurement (mass/volume)Ordered By: Cierra Dinero on 01-15-2025 Urea nitrogen [Mass/Vol] 11 mg/dL 4-19 [facility] Sodium levelOrdered By: Regino Dinero on 01-15-2025 Sodium [Moles/Vol] 139 mmol/L 133-145 [place] White blood cell (WBC) count Ordered By: Cierra Dinero on 01-15-2025 WBC (Bld) [#/Vol] 9.4 10*3/uL 4.4-11.0 [place] CNOVon 12-31-2024 CNOV Office Visit (FAMPWS ) -- SIA OLIVERA ([id number]) 1985 F Date Time Provider Department 12/31/24 1:00 PM HUI VALDES During your visit today, we recorded the following information about you: Pulse Respiration Blood pressure Weight 100/minute 16/minute 122/78 74.4 kg Hui Valdes APRN.GROUP WORKER 12/31/2024 1:48 PM Signed 12/29/2024 Patient presents with: F/U 6 months SUBJECTIVE: This is a 39 year old that is here today for Above Complaints. ADHD: taking Strattera as prescribed without side effects. Would like to increase. Did note improvement in concentrating. Would like to increase dose Hx of migraines: taking Metoprolol as prescribed without side effects. Goes through periods where they are good for awhile then a period of time they are worse. Depression: taking Effexor as prescribed without side effects. Does feel some depression but is some better. Not currently attending counseling. Denies SI or HI. Would like to increase dose Taking Vesicare as prescribed. Helps some. Has not set up appointment for pelvic floor therapy Thinking of getting IUD removed. Would like another child HTN: Patient is compliant with meds Yes Monitors bp at home: No. Denies side effects: Yes. Chest pain: No. Dyspnea: No. Edema: No. Palpitations: No. Syncope: No. Headache: hx of migraines Dizziness: No. PAST MEDICAL HISTORY Diagnosis Date Abnormal Pap smear of cervix 2020 ASCUS neg HPV ADHD (attention deficit hyperactivity disorder), combined type 08/11/2018 Anemia Anxiety 07/07/2018 Bipolar disorder, in partial remission, most recent episode mixed ([facility]) 10/04/2019 Depression, major, recurrent, moderate ([facility]) 07/07/2018 Diet controlled gestational diabetes mellitus (GDM) in second trimester ([facility]) 07/05/2022 Drug use disorder remission since 06/2019; methamphetamines, marijuana Gastritis due to Helicobacter species 11/26/2021 Genital warts 1--09 Never seen again GERD without esophagitis 02/08/2022 Grand multiparity 09/11/2022 - history 4 prior SVDs, this will be delivery #5 - admission CBC 11.9 Group B Streptococcus carrier, antepartum ([facility]) 07/26/2021 Sensitive to Vanc Hemorrhoids Herpes simplex virus (HSV) infection 2008 Hypertension, essential 11/26/2021 Migraine without aura and without status migrainosus, not intractable 07/07/2018 MRSA infection 08/15/2021 -patient reports history of multi-site staph skin infection, is unsure if MRSA or MSSA -will treat with vancomycin preoperatively if need for delivery OAB (overactive bladder) PUD (peptic ulcer disease) 11/26/2021 Urinary tract infection in , antepartum, second trimester ([facility]) 03/28/2022 Urogenital trichomoniasis 2017 Not totally sure date ALLERGIES Amoxicillin MEDICATIONS Current Outpatient Medications Medication Sig venlafaxine ER (EFFEXOR XR) 37.5 mg 24 hr capsule Take 1 capsule by mouth once daily. SUMAtriptan (IMITREX) 100 mg tablet Take 1 tablet (100 mg) by mouth as needed for migraine headache (see administration instructions). hydrocortisone (ANUSOL-HC) 2.5 % rectal cream by RECTAL route two times a day. atomoxetine (STRATTERA) 40 mg capsule Take 1 capsule by mouth once daily. solifenacin 10 mg tablet Take 0.5 tablets by mouth once daily. metoprolol succinate ER (TOPROL XL) 25 mg 24 hr tablet Take 1 tablet by mouth once daily. No current facility-administered medications for this visit. Medications and allergies reviewed by this provider. SOCIAL HISTORY Social History Tobacco Use Smoking status: Former Current packs/day: 0.00 Average packs/day: 0.5 packs/day for 20.0 years (10.0 ttl pk-yrs) Types: Cigarettes Start date: 2000 Quit date: 2020 Years since quittin.2 Smokeless tobacco: Never Vaping Use Vaping status: current everyday user Substance Use Topics Alcohol use: Not Currently Drug use: Not Currently Types: Crystal Meth Comment: remission 06/2019 REVIEW OF SYSTEMS All other reviewed and negative other than HPI. OBJECTIVE: BP 122/78 Pulse 100 Resp 16 Wt 74.4 kg (164 lb) LMP 10/11/2024 (Approximate) SpO2 97% BMI 28.15 kg/m? . Vital signs reviewed by this provider. APPEARANCE Well appearing, alert, in no acute distress, well-hydrated, well nourished. EYES PERRLA, conjunctiva and sclera normal. EARS External ears normal, canals clear HEART RRR with normal S1 and S2, no murmurs, no gallops, no JVD appreciated LUNG clear to auscultation. No wheezes, rhonchi or rales EXTREMITIES Extremities normal, No deformities, No skin discoloration, and No edema SKIN Skin color, texture, turgor normal, no suspicious rashes or lesions Latest Ref Rng 07/08/2024 WBC 3.70 - 11.00 k/uL 7.59 RBC 3.90 - 5.20 m/uL 4.39 Hemoglobin 11.5 - 15.5 g/dL 13.6 Hematocrit 36.0 - 46.0 % 41.2 MCV 80.0 - 100.0 fL 93.8 MCH 26.0 - 34 (more content not included)... Normal [facility] SIA OLIVERA ([id number]) 1985 F Date Time Provider Department 12/28/24 TEMITOPE BEAR During your visit today, we recorded the following information about you: Frances Parnell RN 12/28/2024 4:43 PM Signed Received the following message from [facility]: Patient is requesting to have their IUD removed. Please put in a order for this so that it can be scheduled. Order pending. Please file and then route to scheduling. Thank you. HARRIET Moore Jessica, APRN.CNM 12/28/2024 4:59 PM Signed Order signed. GARIMA Franklin Trisha, RN 12/29/2024 8:07 AM Signed Please contact patient to schedule IUD removal. Sonya Montelongo RN Allergies As of Date: 12/28/2024 Noted Allergy Reaction AMOXICILLIN 07/07/2018 16 - Unknown Comments: WAS TOLD BY MOM Date Reviewed: 10/18/2024 Reviewed by: Shaun Suarez MA - Fully Assessed Reason for Visit: Orders [681] Primary Visit Diagnosis:Encounter for IUD removal [Z30.432] Order(s):REMOVE INTRAUTERINE DEVICE [[id number]] Order #: [id number] Prescriptions as of 12/29/2024 - venlafaxine ER (EFFEXOR XR) 37.5 mg 24 hr capsule Take 1 capsule by mouth once daily. - SUMAtriptan (IMITREX) 100 mg tablet Take 1 tablet (100 mg) by mouth as needed for migraine headache (see administration instructions). - hydrocortisone (ANUSOL-HC) 2.5 % rectal cream by RECTAL route two times a day. - atomoxetine (STRATTERA) 40 mg capsule Take 1 capsule by mouth once daily. - solifenacin 10 mg tablet Take 0.5 tablets by mouth once daily. - metoprolol succinate ER (TOPROL XL) 25 mg 24 hr tablet Take 1 tablet by mouth once daily. Problem List As Of Date 12/28/2024 Noted Resolved Migraine without aura and without status migrai*07/07/2018 Depression, major, recurrent, moderate (HCC) [F*07/07/2018 08/15/2021 Anxiety [F41.9] 07/07/2018 08/15/2021 Methamphetamine abuse (HCC) [F15.10] 07/07/2018 04/26/2021 Marijuana abuse [F12.10] 07/07/2018 04/26/2021 Abdominal wall mass [R22.2] 08/11/2018 09/03/2018 ADHD (attention deficit hyperactivity disorder)*08/11/2018 08/15/2021 Obesity, Class II, BMI 35-39.9 [E66.812] 09/03/2018 07/01/2023 Vaping nicotine dependence, non-tobacco product*10/30/2018 Pure hypercholesterolemia [E78.00] 11/02/2018 08/15/2021 Bipolar disorder, in partial remission, most re*10/04/2019 08/15/2021 Elderly multigravida in third trimester [O09.52*01/12/2021 10/30/2021 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 10/30/2021 Nausea and vomiting of , antepartum [O*01/12/2021 10/08/2022 headache in first trimester [O26.891,*02/09/2021 06/29/2021 Group B Streptococcus carrier, antepartum [O99.*07/26/2021 10/30/2021 Encounter for elective induction of labor [Z34.*08/15/2021 08/18/2021 History of MRSA infection [Z86.14] 08/15/2021 10/08/2022 Epigastric pain [R10.13] 10/30/2021 02/08/2022 Elevated blood pressure reading without diagnos*10/30/2021 11/26/2021 Gastritis due to Helicobacter species [K29.70, *11/26/2021 02/08/2022 PUD (peptic ulcer disease) [K27.9] 11/26/2021 07/01/2023 Hypertension, essential [I10] 11/26/2021 07/01/2023 Hyperlipidemia, mixed [E78.2] 11/26/2021 GERD without esophagitis [K21.9] 02/08/2022 07/01/2023 Preexisting hypertension complicating *03/05/2022 10/08/2022 Obesity complicating , first trimester*03/05/2022 10/08/2022 History of group B Streptococcus (GBS) infectio*03/05/2022 10/08/2022 Multigravida of advanced maternal age in first *03/05/2022 10/08/2022 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 10/08/2022 Vaginitis complicating current [O23.5*03/05/2022 12/10/2022 History of drug use [F19.91] 03/05/2022 10/08/2022 Vaginal bleeding in [O46.90] 03/11/2022 09/11/2022 Abdominal pain affecting [O26.899, R1*03/11/2022 10/08/2022 Urinary tract infection affecting care of mothe*03/28/2022 10/08/2022 14 weeks gestation of [Z3A.14] 03/28/2022 09/11/2022 Diet controlled gestational diabetes mellitus (*07/05/2022 10/08/2022 Encounter for induction of labor [Z34.90] 09/11/2022 10/08/2022 Contraception management [Z30.9] 09/11/2022 10/08/2022 Grand multiparity [Z64.1] 09/11/2022 12/10/2022 Pre-op testing [Z01.818] 01/17/2023 07/01/2023 Gastroesophageal reflux disease [K21.9] 01/17/2023 07/01/2023 Obesity, Class I, BMI 30-34.9 [E66.811] 07/01/2023 Ventral hernia without obstruction or gangrene *07/01/2023 OAB (overactive bladder) [N32.81] 10/03/2023 Stress incontinence of urine [N39.3] 10/03/2023 IUD (intrauterine device) in place [Z97.5] 10/18/2024 Encounter Status:Closed by SONYA MONTELONGO on 12/29/24 Normal [facility] BACTERIAL VAGINOSIS NAATon 0 2- Lactobacillus crispatus+gasseri+tanner senii + Gardnerella vaginalis + Atopobium vaginae rRNA CASSIDY+probe Ql (Vag fld) Not detected Normal Not detected [facility] Comment on above: Order Comment: Speci men Type: BLOOD SPECIMEN Ordering Facility: [facility] Address: [address] [place] [address] Performed By: #### 3 1201-7, 24606-7, 5195-3 #### [facility] CLIA [id number] [address] [place] [address] [place] C. trachomatis+N. gonorrhoea e DNA CASSIDY+probe Ql (Unsp spec)on 10-18-2024 C. trachomatis rRNA CASSIDY+probe Ql (Unsp spec) Not detected Normal Not detected [facility] Comment on above: Order Comment: Speci men Type: BLOOD SPECIMEN Ordering Facility: [facility] Address: [address] [place] [address] Performed By: #### 3 1201-7, 50479-1, 5195-3 #### [facility] CLIA [id number] [address] [place] [address] [place] N. gonorrhoeae rRNA CASSIDY+probe Ql (Unsp spec) Not detected Normal Not detected [facility] Comment on above: Order Comment: Speci men Type: BLOOD SPECIMEN Ordering Facility: [facility] Address: [address] [place] [address] Performed By: #### 3 1201-7, 07181-0, 5195-3 #### [facility] CLIA [id number] [address] [place], [place] [address] [place] ALEX/TRICHOMONAS NAATon 0 10-18-2024 C. glabrata RNA CASSIDY+probe Ql (Vag fld) Not detected Normal Not detected [facility] Comment on above: Order Comment: Speci men Type: BLOOD SPECIMEN Ordering Facility: [facility] Address: [address] [place] [address] Performed By: #### 3 1201-7, 74123-5, 5195-3 #### [facility] CLIA [id number] [address] [place] [address] [place] Alex sp DNA CASSIDY+probe Ql (Vag fld) Not detected Normal Not detected [facility] Comment on above: Order Comment: Speci men Type: BLOOD SPECIMEN Ordering Facility: [facility] Address: [address] [place] [address] Result Comment: The Alex species group target includes C. albicans, C. tropicalis, C. parapsilosis, and C. dubliniensis. Performed By: #### 3 1201-7, 24241-2, 5195-3 #### [facility] CLIA [id number] [address] [place] [address] [place] T. vaginalis DNA CASSIDY+probe Ql (Unsp spec) Not detected Normal Not detected [facility] Comment on above: Order Comment: Speci men Type: BLOOD SPECIMEN Ordering Facility: [facility] Address: [address] [place] [address] Performed By: #### 3 1201-7, 77932-4, 5195-3 #### [facility] CLIA [id number] [address] [place] [address] [place] CNOVon 10-18-2024 CNOV Office Visit (OBGYWM ) -- SIA OLIVERA ([id number]) 1985 F Date Time Provider Department 10/18/24 10:00 AM TEMITOPE BEAR OBGYWM During your visit today, we recorded the following information about you: Blood pressure Weight Height Last Period 126/74 75.8 kg 1.626 m 10/11/24 Temitope Bear APRN.CNM 10/18/2024 1:09 PM Signed Sia is a 39 year old who presents for an annual gynecologic exam without complaints. Still get period: No LMP: 10/11/2024 (Approx) Menses: Occasionally - Mirena IUD. May want this removed to conceive. Menstrual flow: Extremely light due to Mirena Bleeding amount bothersome: No Bleeding between periods: No Period symptoms: No Sexually active: Yes, . Together for 5 years. Contraception: IUD Contraception frequency: Always HPV: 01/18/2022 Negative Last pap smear: 01/18/2022 ASCUS History of abnormal pap: Yes Bothersome pelvic pain: No Last mammogram: never Mood swings: No Insomnia: No OB History T5 L5 SAB0 IAB1 Ectopic0 Multiple0 Live Births5 Horse Buyer History LMP: 10/11/2024 (Approximate), IUD Age at Menarche: 9 Age at First : 21 Age at Menopause: Horse Buyer History Comments: Sexual Activity: Yes; Male Contraception: No contraception data on record Menstrual Tracking History Flowsheet Row Appointment from 10/15/2024 in OB/Gynecology Period Cycle (Days) 7 Period Duration (Days) 7 Menstrual Flow Light PAST MEDICAL HISTORY Diagnosis Date Abnormal Pap smear of cervix 2019 ASCUS neg HPV ADHD (attention deficit hyperactivity disorder), combined type 08/11/2018 Anemia Anxiety 07/07/2018 Bipolar disorder, in partial remission, most recent episode mixed (HCC) 10/04/2019 Depression, major, recurrent, moderate (HCC) 07/07/2018 Diet controlled gestational diabetes mellitus (GDM) in second trimester 07/05/2022 Drug use disorder remission since 06/2019; methamphetamines, marijuana Gastritis due to Helicobacter species 11/26/2021 Genital warts 1-29-09 Never seen again GERD without esophagitis 02/08/2022 Grand multiparity 09/11/2022 - history 4 prior SVDs, this will be delivery #5 - admission CBC 11.9 Group B Streptococcus carrier, antepartum 07/26/2021 Sensitive to Vanc Hemorrhoids Herpes simplex virus (HSV) infection 2009 Hypertension, essential 11/26/2021 Migraine without aura and without status migrainosus, not intractable 07/07/2018 MRSA infection 08/15/2021 -patient reports history of multi-site staph skin infection, is unsure if MRSA or MSSA -will treat with vancomycin preoperatively if need for delivery OAB (overactive bladder) PUD (peptic ulcer disease) 11/26/2021 Urinary tract infection in , antepartum, second trimester 03/28/2022 Urogenital trichomoniasis 2017 Not totally sure date PAST SURGICAL HISTORY Procedure Laterality Date SECTION HX EGD DIAGNOSTIC 01/17/2023 INDUCED BY [facility] 2008 FAMILY HISTORY Problem Relation Age of Onset Heart Mother Hypertension Father No Known Problems Brother No Known Problems Brother No Known Problems Maternal Grandmother No Known Problems Maternal Grandfather Breast Cancer Paternal Grandmother Diabetes Paternal Grandmother No Known Problems Paternal Grandfather SOCIAL HISTORY Social History Tobacco Use Smoking status: Former Current packs/day: 0.00 Average packs/day: 0.5 packs/day for 20.0 years (10.0 ttl pk-yrs) Types: Cigarettes Start date: 2000 Quit date: 2020 Years since quittin.0 Smokeless tobacco: Never Vaping Use Vaping status: current everyday user Substance Use Topics Alcohol use: Not Currently 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 No bloating, early satiety, indigestion, or increased flatulence. Bladder: No dysuria, gross hematuria, urinary frequency, urinary urgency, or incontinence. Breast: No breast lumps, nipple d/c, overlying skin changes, redness or skin retraction. Allergies and current medication updated:Yes SENSITIVE EXAM: The sensitive examination was discussed with the Patient or Patient's Authorized Gas Manager. As applicable, any other physician, advance practice provider, medical student, or other health professional student that will be observing or involved in the sensitive examination for educational or training purposes was discussed with the Patient or Authorized Gas Manager. The Patient or Authorized Gas Manager has agreed to proceed with the sensitive examination. (Sensitive examination includes inspection and/or palpation of the breasts, pelvis, prostate and anorectal regions). EXAM: BP 126/74 Ht 5' 4 (1.63m) Wt 167 lb (75.8kg) LMP 10/11/2024 BMI 28.65 kg/(m2). GENERAL: pleasant, fe (more content not included)... Normal [facility] HBV surface Ag Ser Qlon 02-0 HBV surface Ag Ql (S) Negative Normal Negative [facility] Comment on above: Order Comment: Speci men Type: BLOOD SPECIMEN Ordering Facility: [facility] Address: [address] [place] [address] Performed By: #### 3 1201-7, 20855-0, 5195-3 #### [facility] CLIA [id number] [address] [place] [address] [place] HCV Ab Ser Qlon 10-18-2024 HCV Ab Ql (S) Negative Normal Negative [facility] Comment on above: Order Comment: Speci men Type: BLOOD SPECIMEN Ordering Facility: [facility] Address: [address] [place] [address] Result Comment: The result suggests no evidence of active infection with Hepatitis C virus. Should recent infection be suspected, repeat testing may be considered 4-6 weeks after this draw. Performed By: #### 3 1201-7, 12872-5, 5195-3 #### [facility] CLIA [id number] [address] [place] [address] [place] HIGH RISK HUMAN PAPILLOMA DONATO (HPV), PCR FOR DETECTION AND GENOTYPINGon 10-18-2024 HPV 16 Ag Ql (Unsp spec) Not detected Normal Not detected [facility] Comment on above: Order Comment: Speci men Type: FLUID SPECIMEN Ordering Facility: [facility] Address: [address] [place] [address] Performed By: #### H PVHRT #### [facility] CLIA [id number] [address] [place] [address] [place] HPV 18 Ag Ql (Unsp spec) Not detected Normal Not detected [facility] Comment on above: Order Comment: Speci men Type: FLUID SPECIMEN Ordering Facility: [facility] Address: [address] [place] [address] Performed By: #### H PVHRT #### [facility] CLIA [id number] [address] [place] [address] [place] HPV 31+33+35+39+45+51+52+ 56+58+59+66+68 DNA CASSIDY+probe Ql (Cvx) Not detected Normal Not detected [facility] Comment on above: Order Comment: Speci men Type: FLUID SPECIMEN Ordering Facility: [facility] Address: [address] [place] [address] Result Comment: High Risk HPV Other Type includes HPV types 31, 33, 35, 39, 45, 51, 52, 56, 58, 59, 66 and 68. Performed By: #### H PVHRT #### [facility] CLIA [id number] [address] [place] [address] [place] HIV 1+2 Ab IA Qlon 5 HIV 1 and 2 Ab IA.rapid Nom (S/P/Bld) Normal [facility] Comment on above: Order Comment: Speci men Type: BLOOD SPECIMEN Ordering Facility: [facility] Address: [address] [place] [address] Result Comment: Test not indicated. Performed By: #### 3 1201-7, 60836-4, 5195-3 #### [facility] CLIA [id number] [address] [place] [address] [place] HIV 1+2 Ab+HIV1 p24 Ag IA Ql Non-Reactive Normal Nonreactive [facility] Comment on above: Order Comment: Speci men Type: BLOOD SPECIMEN Ordering Facility: [facility] Address: [address] [place] [address] Performed By: #### 3 1201-7, 56381-2, 5195-3 #### [facility] CLIA [id number] [address] [place] [address] [place] HIV immunoassay testing algorithm interpretation (S/P/Bld) [Interp] Normal [facility] Comment on above: Order Comment: Speci men Type: BLOOD SPECIMEN Ordering Facility: [facility] Address: [address] [place] [address] Result Comment: No e vidence of HIV-1 or HIV-2 infection. Should recent infection be suspected, repeat testing may be considered 2-3 weeks after this draw. [place] Rev. Code 3701.243(E): This information has been disclosed to you from confidential records protected from disclosure by state law. ???You shall make no further disclosure of this information without the specific, written, and informed release of the individual to whom it pertains or as otherwise permitted by state law. A general authorization for the release of medical or other information is not sufficient for the purpose of the release of HIV test results or diagnoses. Performed By: #### 3 1201-7, 36794-9, 5195-3 #### [facility] CLIA [id number] [address] [place] [address] [place] PAP TESTon 10-18-2024 ADEQUACY Satisfactory for interpretation. Normal [facility] Comment on above: Order Comment: Speci men Type: FLUID SPECIMEN Ordering Facility: [facility] Address: [address] [place] [address] Performed By: #### L [id number] #### [facility] CLIA [id number] [address] [place] [address] [place] CASE REPORT Normal [facility] Comment on above: Order Comment: Speci men Type: FLUID SPECIMEN Ordering Facility: [facility] Address: [address] [place] [address] Result Comment: Gyne cologic Cytology Report Case: [id number] Authorizing Provider: Temitope Bear APRN.CNM Collected: 10/18/2024 10:44 AM Ordering Location: OB/Gynecology Received: 10/18/2024 12:00 PM First Screen: Renteria, Serena, CT, ASCP Pathologist: Iwona Turner MD Specimen: Pap Test, ThinPrep, Cervix Performed By: #### L [id number] #### [facility] CLIA [id number] [address] [place] [address] [place] CLINICAL HISTORY, CYTOLOGY, RN CLINICAL APPEALS Routine Exam Normal [facility] Comment on above: Order Comment: Speci men Type: FLUID SPECIMEN Ordering Facility: [facility] Address: [address] [place] [address] Result Comment: Prev ious ASCUS Intra Uterine Device, No Menses Performed By: #### L [id number] #### [facility] CLIA [id number] [address] [place] [address] [place] CYTOLOGY PAP OTHER INTERPRETATION Normal [facility] Comment on above: Order Comment: Speci men Type: FLUID SPECIMEN Ordering Facility: [facility] Address: [address] [place] [address] Result Comment: Bact eria present morphologically consistent with Actinomyces species. Acute inflammation. Performed By: #### L [id number] #### [facility] CLIA [id number] [address] [place] [address] [place] FINAL PERFORMING LAB Normal [facility] Comment on above: Order Comment: Speci men Type: FLUID SPECIMEN Ordering Facility: [facility] Address: [address] [place] [address] Result Comment: Tech nical component, fire assistant screening performed at [facility], [address] [facility], [place] [address] CLIA# [id number] Diagnostic interpretation performed at [facility], [address] [place] [address] CLIA# [id number] Film Library Clerk: Madelyn Day M.D. Performed By: #### L [id number] #### [facility] CLIA [id number] [address] [place] [address] [place] INTERPRETATION, CYTOLOGY, RN CLINICAL APPEALS Normal [facility] Comment on above: Order Comment: Speci men Type: FLUID SPECIMEN Ordering Facility: [facility] Address: [address] [place] [address] Result Comment: Nega tive for intraepithelial lesion or malignancy. at 0841 EST Performed By: #### L [id number] #### [facility] CLIA [id number] [address] [place] [address] [place] PAP DISCLAIMER COMMENT The Pap Smear is a screening test for cervical cancer. False negative results occur with all screening tests, emphasizing the need for rescreening at recommended intervals, and clinical correlation. Normal [facility] Comment on above: Order Comment: Speci men Type: FLUID SPECIMEN Ordering Facility: [facility] Address: [address] [place] [address] Performed By: #### L [id number] #### [facility] [place] [id number] [address] [place], [place] [address] [place] PAP HOTEL SERVICES SUPERVISOR COMMENT This specimen has be en analyzed by the ThinPrep Imaging System, an automated imaging and review system, which assists the laboratory in evaluating cells on ThinPrep Pap tests. Following automated imaging, selected cobb from every slide are reviewed by a fire assistant. Normal [facility] Comment on above: Order Comment: Speci men Type: FLUID SPECIMEN Ordering Facility: [facility] Address: [address] [place] [address] Performed By: #### L [id number] #### [facility] [place] [id number] [address] [place] [address] [place] Reagin and Treponema pallidu m IgG and IgM [Interp]on 10-18-2024 T. pallidum IgG+IgM IA Ql (S) Non-Reactive Normal Nonreactive [facility] Comment on above: Order Comment: Janis covington Type: BLOOD SPECIMEN Ordering Facility: [facility] Address: [address] [place] [address] Performed By: #### 3 1201-7, 92970-0, 5195-3 #### [facility] CLIA [id number] [address] [place] [address] [place] Reagin+T pallidum IgG+IgM Se rPl-Impon 10-18-2024 Reagin and Treponema pallidum IgG and IgM [Interp] Cannot exclude recent Treponemal infection if specimen collected within 7-10 days after appearance of suspect lesions or 2-3 weeks after an exposure. Clinical correlation is required. Normal [facility] Comment on above: Order Comment: Janis covington Type: BLOOD SPECIMEN Ordering Facility: [facility] Address: [address] [place] [address] Performed By: #### 3 1201-7, 65198-8, 5195-3 #### [facility] CLIA [id number] [address] [place] [address] [place] CNPNon 08-13-2024 [facility] SIA OLIVERA ([id number]) 1985 F Date Time Provider Department 08/13/24 NO PCP NETNAV During your visit today, we recorded the following information about you: Rebecca Rhodes 08/13/2024 3:44 PM Signed [facility] NAVIGATION OUTREACH Action/ attempt, call placed to pt for PT consult for OAB (overactive bladder) [N32.81]. Order is dated 07/05/24. Pt declined to [facility] at this time. Pt plans to go to an outside facility for care. Pt will manage own appt. Reason for Outreach Care Gap/HCC or Scheduling Wellness Visits Care Gaps due: N/A Physical Therapy Patient Contacted: Spoke to patient/parent/or legal guardian Patient identified by name and : Yes Care Gap/HCC/Scheduling Wellness actions taken: Patient declined: Patient Declines Navigation Scheduling / Outreach Navigation Signature: Rebecca Rhodes August 13, 2024 3:44 PM Allergies As of Date: 08/13/2024 Noted Allergy Reaction AMOXICILLIN 07/07/2018 16 - Unknown Comments: WAS TOLD BY MOM Date Reviewed: 07/05/2024 Reviewed by: Kathleen Rachel LPN - Fully Assessed Prescriptions as of 08/13/2024 - hydrocortisone (ANUSOL-HC) 2.5 % rectal cream by RECTAL route two times a day. - SUMAtriptan (IMITREX) 100 mg tablet Take 1 tablet (100 mg) by mouth as needed for migraine headache (see administration instructions). - venlafaxine ER (EFFEXOR XR) 37.5 mg 24 hr capsule Take 1 capsule by mouth once daily. - atomoxetine (STRATTERA) 40 mg capsule Take 1 capsule by mouth once daily. - solifenacin 10 mg tablet Take 0.5 tablets by mouth once daily. - metoprolol succinate ER (TOPROL XL) 25 mg 24 hr tablet Take 1 tablet by mouth once daily. Problem List As Of Date 08/13/2024 Noted Resolved Migraine without aura and without status migrai*07/07/2018 Depression, major, recurrent, moderate (HCC) [F*07/07/2018 08/15/2021 Anxiety [F41.9] 07/07/2018 08/15/2021 Methamphetamine abuse (HCC) [F15.10] 07/07/2018 04/26/2021 Marijuana abuse [F12.10] 07/07/2018 04/26/2021 Abdominal wall mass [R22.2] 08/11/2018 09/03/2018 ADHD (attention deficit hyperactivity disorder)*08/11/2018 08/15/2021 Obesity, Class II, BMI 35-39.9 [E66.812] 09/03/2018 07/01/2023 Vaping nicotine dependence, non-tobacco product*10/30/2018 Pure hypercholesterolemia [E78.00] 11/02/2018 08/15/2021 Bipolar disorder, in partial remission, most re*10/04/2019 08/15/2021 Elderly multigravida in third trimester [O09.52*01/12/2021 10/30/2021 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 10/30/2021 Nausea and vomiting of , antepartum [O*01/12/2021 10/08/2022 headache in first trimester [O26.891,*02/09/2021 06/29/2021 Group B Streptococcus carrier, antepartum [O99.*07/26/2021 10/30/2021 Encounter for elective induction of labor [Z34.*08/15/2021 08/18/2021 History of MRSA infection [Z86.14] 08/15/2021 10/08/2022 Epigastric pain [R10.13] 10/30/2021 02/08/2022 Elevated blood pressure reading without diagnos*10/30/2021 11/26/2021 Gastritis due to Helicobacter species [K29.70, *11/26/2021 02/08/2022 PUD (peptic ulcer disease) [K27.9] 11/26/2021 07/01/2023 Hypertension, essential [I10] 11/26/2021 07/01/2023 Hyperlipidemia, mixed [E78.2] 11/26/2021 GERD without esophagitis [K21.9] 02/08/2022 07/01/2023 Preexisting hypertension complicating *03/05/2022 10/08/2022 Obesity complicating , first trimester*03/05/2022 10/08/2022 History of group B Streptococcus (GBS) infectio*03/05/2022 10/08/2022 Multigravida of advanced maternal age in first *03/05/2022 10/08/2022 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 10/08/2022 Vaginitis complicating current [O23.5*03/05/2022 12/10/2022 History of drug use [F19.91] 03/05/2022 10/08/2022 Vaginal bleeding in [O46.90] 03/11/2022 09/11/2022 Abdominal pain affecting [O26.899, R1*03/11/2022 10/08/2022 Urinary tract infection affecting care of mothe*03/28/2022 10/08/2022 14 weeks gestation of [Z3A.14] 03/28/2022 09/11/2022 Diet controlled gestational diabetes mellitus (*07/05/2022 10/08/2022 Encounter for induction of labor [Z34.90] 09/11/2022 10/08/2022 Contraception management [Z30.9] 09/11/2022 10/08/2022 Grand multiparity [Z64.1] 09/11/2022 12/10/2022 Pre-op testing [Z01.818] 01/17/2023 07/01/2023 Gastroesophageal reflux disease [K21.9] 01/17/2023 07/01/2023 Obesity, Class I, BMI 30-34.9 [E66.811] 07/01/2023 Ventral hernia without obstruction or gangrene *07/01/2023 OAB (overactive bladder) [N32.81] 10/03/2023 Stress incontinence of urine [N39.3] 10/03/2023 Encounter Status:Closed by REBECCA RHODES on 08/13/24 Normal [facility] CBC W Auto Differential pane l (Bld)on 07-08-2024 Basophils (Bld) [#/Vol] 0.07 10*3/uL Normal <0.11 [facility] Comment on above: Order Comment: Speci men Type: BLOOD SPECIMEN Ordering Facility: [facility] Address: [address] [place] [address] Performed By: #### 5 7021-8 #### [facility] CLIA [id number] [address] [place] [address] [place] Basophils/100 WBC (Bld) 0.9 % Normal [facility] Comment on above: Order Comment: Speci men Type: BLOOD SPECIMEN Ordering Facility: [facility] Address: [address] [place] [address] Performed By: #### 5 7021-8 #### [facility] CLIA [id number] [address] [place] [address] [place] Differential cell count method Nom (Bld) Auto Normal [facility] Comment on above: Order Comment: Speci men Type: BLOOD SPECIMEN Ordering Facility: [facility] Address: [address] [place] [address] Performed By: #### 5 7021-8 #### [facility] CLIA [id number] [address] [place] [address] [place] Eosinophils (Bld) [#/Vol] 0.14 10*3/uL Normal <0.46 [facility] Comment on above: Order Comment: Speci men Type: BLOOD SPECIMEN Ordering Facility: [facility] Address: [address] [place] [address] Performed By: #### 5 7021-8 #### [facility] CLIA [id number] [address] [place] [address] [place] Eosinophils/100 WBC (Bld) 1.8 % Normal [facility] Comment on above: Order Comment: Speci men Type: BLOOD SPECIMEN Ordering Facility: [facility] Address: [address] [place] [address] Performed By: #### 5 7021-8 #### [facility] CLIA [id number] [address] [place] [address] [place] Erythrocyte distribution width (RBC) [Ratio] 12.2 % Normal 11.5-15.0 [facility] Comment on above: Order Comment: Speci men Type: BLOOD SPECIMEN Ordering Facility: [facility] Address: [address] [place] [address] Performed By: #### 5 7021-8 #### [facility] CLIA [id number] [address] [place] [address] [place] Hematocrit (Bld) [Volume fraction] 41.2 % Normal 36.0-46.0 [facility] Comment on above: Order Comment: Speci men Type: BLOOD SPECIMEN Ordering Facility: [facility] Address: [address] [place] [address] Performed By: #### 5 7021-8 #### [facility] CLIA [id number] [address] [place] [address] [place] Hemoglobin (Bld) [Mass/Vol] 13.6 g/dL Normal 11.5-15.5 [facility] Comment on above: Order Comment: Speci men Type: BLOOD SPECIMEN Ordering Facility: [facility] Address: [address] [place] [address] Performed By: #### 5 7021-8 #### [facility] CLIA [id number] [address] [place] [address] [place] Immature granulocytes (Bld) [#/Vol] 0.03 10*3/uL Normal <0.10 [facility] Comment on above: Order Comment: Speci men Type: BLOOD SPECIMEN Ordering Facility: [facility] Address: [address] [place] [address] Performed By: #### 5 7021-8 #### [facility] CLIA [id number] [address] [place] [address] [place] Immature granulocytes/100 WBC (Bld) 0.4 % Normal [facility] Comment on above: Order Comment: Speci men Type: BLOOD SPECIMEN Ordering Facility: [facility] Address: [address] [place] [address] Performed By: #### 5 7021-8 #### [facility] CLIA [id number] [address] [place] [address] [place] Lymphocytes (Bld) [#/Vol] 2.90 10*3/uL Normal 1.00-4.00 [facility] Comment on above: Order Comment: Speci men Type: BLOOD SPECIMEN Ordering Facility: [facility] Address: [address] [place] [address] Performed By: #### 5 7021-8 #### [facility] CLIA [id number] [address] [place] [address] [place] Lymphocytes/100 WBC (Bld) 38.2 % Normal [facility] Comment on above: Order Comment: Speci men Type: BLOOD SPECIMEN Ordering Facility: [facility] Address: [address] [place] [address] Performed By: #### 5 7021-8 #### [facility] CLIA [id number] [address] [place] [address] [place] MCH (RBC) [Entitic mass] 31.0 pg Normal 26.0-34.0 [facility] Comment on above: Order Comment: Speci men Type: BLOOD SPECIMEN Ordering Facility: [facility] Address: [address] [place] [address] Performed By: #### 5 7021-8 #### [facility] CLIA [id number] [address] [place] [address] [place] MCHC (RBC) [Mass/Vol] 33.0 g/dL Normal 30.5-36.0 [facility] Comment on above: Order Comment: Speci men Type: BLOOD SPECIMEN Ordering Facility: [facility] Address: [address] [place] [address] Performed By: #### 5 7021-8 #### [facility] CLIA [id number] [address] [place] [address] [place] MCV (RBC) [Entitic vol] 93.8 fL Normal 80.0-100.0 [facility] Comment on above: Order Comment: Speci men Type: BLOOD SPECIMEN Ordering Facility: [facility] Address: [address] [place] [address] Performed By: #### 5 7021-8 #### [facility] CLIA [id number] [address] [place] [address] [place] Monocytes (Bld) [#/Vol] 0.71 10*3/uL Normal <0.87 [facility] Comment on above: Order Comment: Speci men Type: BLOOD SPECIMEN Ordering Facility: [facility] Address: [address] [place] [address] Performed By: #### 5 7021-8 #### [facility] CLIA [id number] [address] [place] [address] [place] Monocytes/100 WBC (Bld) 9.4 % Normal [facility] Comment on above: Order Comment: Speci men Type: BLOOD SPECIMEN Ordering Facility: [facility] Address: [address] [place] [address] Performed By: #### 5 7021-8 #### [facility] CLIA [id number] [address] [place] [address] [place] Neutrophils (Bld) [#/Vol] 3.74 10*3/uL Normal 1.45-7.50 [facility] Comment on above: Order Comment: Speci men Type: BLOOD SPECIMEN Ordering Facility: [facility] Address: [address] [place] [address] Performed By: #### 5 7021-8 #### [facility] CLIA [id number] [address] [place] [address] [place] Neutrophils/100 WBC (Bld) 49.3 % Normal [facility] Comment on above: Order Comment: Speci men Type: BLOOD SPECIMEN Ordering Facility: [facility] Address: [address] [place] [address] Performed By: #### 5 7021-8 #### [facility] CLIA [id number] [address] [place] [address] [place] Nucleated RBC (Bld) [#/Vol] 10*3/uL Normal <0.01 [facility] Comment on above: Order Comment: Speci men Type: BLOOD SPECIMEN Ordering Facility: [facility] Address: [address] [place] [address] Performed By: #### 5 7021-8 #### [facility] CLIA [id number] [address] [place] [address] [place] Nucleated RBC/100 WBC (Bld) [Ratio] 0.0 /100 WBC Normal [facility] Comment on above: Order Comment: Speci men Type: BLOOD SPECIMEN Ordering Facility: [facility] Address: [address] [place] [address] Performed By: #### 5 7021-8 #### [facility] CLIA [id number] [address] [place] [address] [place] Platelet mean volume (Bld) [Entitic vol] 9.5 fL Normal 9.0-12.7 [facility] Comment on above: Order Comment: Speci men Type: BLOOD SPECIMEN Ordering Facility: [facility] Address: [address] [place] [address] Performed By: #### 5 7021-8 #### [facility] CLIA [id number] [address] [place] [address] [place] Platelets (Bld) [#/Vol] 354 10*3/uL Normal 150-400 [facility] Comment on above: Order Comment: Speci men Type: BLOOD SPECIMEN Ordering Facility: [facility] Address: [address] [place] [address] Performed By: #### 5 7021-8 #### [facility] CLIA [id number] [address] [place] [address] [place] RBC (Bld) [#/Vol] 4.39 10*6/uL Normal 3.90-5.20 [facility] Comment on above: Order Comment: Speci men Type: BLOOD SPECIMEN Ordering Facility: [facility] Address: [address] [place] [address] Performed By: #### 5 7021-8 #### [facility] CLIA [id number] [address] [place] [address] [place] WBC (Bld) [#/Vol] 7.59 10*3/uL Normal 3.70-11.00 [facility] Comment on above: Order Comment: Speci men Type: BLOOD SPECIMEN Ordering Facility: [facility] Address: [address] [place] [address] Performed By: #### 5 7021-8 #### [facility] CLIA [id number] [address] [place] [address] [place] Comprehensive metabolic 2000 panelon 07-08-2024 Albumin [Mass/Vol] 4.2 g/dL Normal 3.9-4.9 [facility] Comment on above: Order Comment: Speci men Type: BLOOD SPECIMEN Ordering Facility: [facility] Address: [address] [place] [address] Performed By: #### 3 1201-7, 52161-8, 5195-3 #### [facility] CLIA [id number] [address] [place] [address] [place] ALP [Catalytic activity/Vol] 41 U/L Normal 34-123 [facility] Comment on above: Order Comment: Speci men Type: BLOOD SPECIMEN Ordering Facility: [facility] Address: [address] [place] [address] Performed By: #### 3 1201-7, 28110-8, 5195-3 #### [facility] CLIA [id number] [address] [place] [address] [place] ALT [Catalytic activity/Vol] 10 U/L Normal 7-38 [facility] Comment on above: Order Comment: Speci men Type: BLOOD SPECIMEN Ordering Facility: [facility] Address: [address] [place] [address] Performed By: #### 3 1201-7, 99112-8, 5195-3 #### [facility] CLIA [id number] [address] [place] [address] [place] Anion gap [Moles/Vol] 10 mmol/L Normal 8-15 [facility] Comment on above: Order Comment: Speci men Type: BLOOD SPECIMEN Ordering Facility: [facility] Address: [address] [place] [address] Performed By: #### 3 1201-7, 86625-0, 5-3 #### [facility] CLIA [id number] [address] [place] [address] [place] AST [Catalytic activity/Vol] 13 U/L Normal 13-35 [facility] Comment on above: Order Comment: Speci men Type: BLOOD SPECIMEN Ordering Facility: [facility] Address: [address] [place] [address] Performed By: #### 3 1201-7, 39347-6, 5195-3 #### [facility] CLIA [id number] [address] [place] [address] [place] Bilirubin [Mass/Vol] 0.7 mg/dL Normal 0.2-1.3 [facility] Comment on above: Order Comment: Speci men Type: BLOOD SPECIMEN Ordering Facility: [facility] Address: [address] [place], [place] [address] Performed By: #### 3 1201-7, 65746-7, 5195-3 #### [facility] CLIA [id number] [address] [place] [address] [place] Calcium [Mass/Vol] 9.0 mg/dL Normal 8.5-10.2 [facility] Comment on above: Order Comment: Speci men Type: BLOOD SPECIMEN Ordering Facility: [facility] Address: [address] [place] [address] Performed By: #### 3 1201-7, 53275-9, 5195-3 #### [facility] CLIA [id number] [address] [place] [address] [place] Chloride [Moles/Vol] 106 mmol/L Normal 98-107 [facility] Comment on above: Order Comment: Speci men Type: BLOOD SPECIMEN Ordering Facility: [facility] Address: [address] [place] [address] Performed By: #### 3 1201-7, 43669-6, 5195-3 #### [facility] CLIA [id number] [address] [place] [address] [place] CO2 [Moles/Vol] 24 mmol/L Normal 22-30 [facility] Comment on above: Order Comment: Speci men Type: BLOOD SPECIMEN Ordering Facility: [facility] Address: [address] [place] [address] Performed By: #### 3 1201-7, 06267-9, 5195-3 #### [facility] CLIA [id number] [address] [place] [address] [place] Creatinine [Mass/Vol] 0.84 mg/dL Normal 0.58-0.96 [facility] Comment on above: Order Comment: Speci men Type: BLOOD SPECIMEN Ordering Facility: [facility] Address: [address] [place] [address] Performed By: #### 3 1201-7, 25340-1, 5195-3 #### [facility] CLIA [id number] [address] [place] [address] [place] Creatinine and Glomerular filtration rate.predicted panel (S/P/Bld) 91 mL/min/1.73m??? Normal >=60 [facility] Comment on above: Order Comment: Janis covington Type: BLOOD SPECIMEN Ordering Facility: [facility] Address: [address] [place] [address] Result Comment: Grace mated Glomerular Filtration Rate (eGFR) is calculated using the 2020 CKD-EPI creatinine equation. This equation utilizes serum creatinine, sex, and age as parameters. The creatinine assay has traceable calibration to isotope dilution-mass spectrometry. Refer to KDIGO guidelines for clinical interpretation. In patients with unstable renal function, e.g. those with acute kidney injury, the eGFR may not accurately reflect actual GFR. Performed By: #### 3 1201-7, 40676-6, 5195-3 #### [facility] CLIA [id number] [address] [place] [address] [place] Glucose [Mass/Vol] 96 mg/dL Normal 74-99 [facility] Comment on above: Order Comment: Janis covington Type: BLOOD SPECIMEN Ordering Facility: [facility] Address: [address] [place] [address] Result Comment: The [place] Diabetes Association (ADA) provides guidance for cutoff values for fasting glucose and random glucose. The ADA defines fasting as no caloric intake for at least 8 hours. Fasting plasma glucose results between 100 to 125 mg/dL indicate increased risk for diabetes (prediabetes). Fasting plasma glucose results greater than or equal to 126 mg/dL meet the criteria for diagnosis of diabetes. In the absence of unequivocal hyperglycemia, results should be confirmed by repeat testing. In a patient with classic symptoms of hyperglycemia or hyperglycemic crisis, random plasma glucose results greater than or equal to 200 mg/dL meet the criteria for diagnosis of diabetes. Reference: Standards of Medical Care in Diabetes 2016, [place] [employer]. Diabetes Care. 2016.39(Suppl 1). Performed By: #### 3 1201-7, 66775-7, 5-3 #### [facility] CLIA [id number] [address] [place] [address] [place] Potassium [Moles/Vol] 3.7 mmol/L Normal 3.7-5.1 [facility] Comment on above: Order Comment: Speci men Type: BLOOD SPECIMEN Ordering Facility: [facility] Address: [address] [place] [address] Performed By: #### 3 1201-7, 51679-5, 5194-3 #### [facility] CLIA [id number] [address] [place] [address] [place] Protein [Mass/Vol] 6.5 g/dL Normal 6.3-8.0 [facility] Comment on above: Order Comment: Speci men Type: BLOOD SPECIMEN Ordering Facility: [facility] Address: [address] [place] [address] Performed By: #### 3 1201-7, 57256-7, 3 #### [facility] CLIA [id number] [address] [place] [address] [place] Sodium [Moles/Vol] 140 mmol/L Normal 136-144 [facility] Comment on above: Order Comment: Speci men Type: BLOOD SPECIMEN Ordering Facility: [facility] Address: [address] [place] [address] Performed By: #### 3 1201-7, 66485-8, 3 #### [facility] CLIA [id number] [address] [place] [address] [place] Urea nitrogen [Mass/Vol] 11 mg/dL Normal 7-21 [facility] Comment on above: Order Comment: Speci men Type: BLOOD SPECIMEN Ordering Facility: [facility] Address: [address] [place] [address] Performed By: #### 3 1201-7, 67511-9, 5194-3 #### [facility] CLIA [id number] [facility] [place] [address] [place] Lipid 1996 panelon 4 Cholesterol [Mass/Vol] 191 mg/dL Normal <200 [facility] Comment on above: Order Comment: Speci men Type: BLOOD SPECIMEN Ordering Facility: [facility] Address: [address] [place] [address] Result Comment: <200 mg/dL, Desirable 200-239 mg/dL, Borderline high >239 mg/dL, High Performed By: #### 3 1201-7, 65585-3, 5194-3 #### [facility] CLIA [id number] [address] [place] [address] [place] Cholesterol in HDL [Mass/Vol] 35 mg/dL Low >39 [facility] Comment on above: Order Comment: Speci men Type: BLOOD SPECIMEN Ordering Facility: [facility] Address: [address] [place] [address] Result Comment: 40-5 9 mg/dL, Acceptable >59 mg/dL, High: Negative risk factor for coronary heart disease <40 mg/dL, Low: Positive risk factor for coronary heart disease Performed By: #### 3 1201-7, 95991-6, 5194-3 #### [facility] CLIA [id number] [address] [place] [address] [place] Cholesterol in LDL [Mass/Vol] 136 mg/dL High <100 [facility] Comment on above: Order Comment: Speci men Type: BLOOD SPECIMEN Ordering Facility: [facility] Address: [address] [place] [address] Result Comment: <100 mg/dL, Optimal 100-129 mg/dL, Near optimal/above optimal 130-159 mg/dL, Borderline high 160-189 mg/dL, High >189 mg/dL, Very high Secondary prevention optimal LDL Cholesterol levels are recommended to be < 70 mg/dL Performed By: #### 3 1201-7, 50684-0, 5194-3 #### [facility] CLIA [id number] [address] [place] [address] [place] Cholesterol in LDL/Cholesterol in HDL [Mass ratio] 3.89 {ratio} High <2.54 [facility] Comment on above: Order Comment: Janis covington Type: BLOOD SPECIMEN Ordering Facility: [facility] Address: [address] [place] [address] Result Comment: Kim young: 1. National Cholesterol Education Program ATP III Guideline At-A-Glance Quick Desk Reference: National Heart, Lung, and Blood Dupree. National Institutes of Health. 2001: NIH Publication No. 01-3305. 2. An International Atherosclerosis Society position paper: global recommendations for the management of dyslipidemia: executive summary, Atherosclerosis. 2014: 232(2):410-413. Performed By: #### 3 1201-7, 30074-0, 5194-3 #### [facility] CLIA [id number] [address] [place] [address] [place] Cholesterol in VLDL [Mass/Vol] 20 mg/dL Normal <30 [facility] Comment on above: Order Comment: Janis covington Type: BLOOD SPECIMEN Ordering Facility: [facility] Address: [address] [place] [address] Performed By: #### 3 1201-7, 43989-2, 5194-3 #### [facility] CLIA [id number] [address] [place] [address] [place] Cholesterol non HDL [Mass/Vol] 156 mg/dL High <130 [facility] Comment on above: Order Comment: Janis covington Type: BLOOD SPECIMEN Ordering Facility: [facility] Address: [address] [place] [address] Result Comment: <130 mg/dL, Optimal 130-159 mg/dL, Near optimal/above optimal 160-189 mg/dL, Borderline high 190-219 mg/dL, High >219 mg/dL, Very high Secondary prevention optimal non HDL Cholesterol levels are recommended to be <100 mg/dL Performed By: #### 3 1201-7, 74886-6, 5194-3 #### [facility] CLIA [id number] [address] [place] [address] [place] Cholesterol.total/Cho lesterol in HDL [Mass ratio] 5.46 {ratio} High <5.10 [facility] Comment on above: Order Comment: Speci men Type: BLOOD SPECIMEN Ordering Facility: [facility] Address: [address] [place] [address] Performed By: #### 3 1201-7, 86222-0, 5195-3 #### [facility] CLIA [id number] [address] [place] [address] [place] FASTING TIME 12 hrs Normal [facility] Comment on above: Order Comment: Speci men Type: BLOOD SPECIMEN Ordering Facility: [facility] Address: [address] [place] [address] Performed By: #### 3 1201-7, 56994-9, 5195-3 #### [facility] CLIA [id number] [address] [place] [address] [place] Triglyceride [Mass/Vol] 102 mg/dL Normal <150 [facility] Comment on above: Order Comment: Speci men Type: BLOOD SPECIMEN Ordering Facility: [facility] Address: [address] [place] [address] Result Comment: <150 mg/dL, Normal 150-199 mg/dL, Borderline high 200-499 mg/dL, High >499 mg/dL, Very high Performed By: #### 3 1201-7, 10670-6, 5195-3 #### [facility] CLIA [id number] [address] [place] [address] [place] CNOVon 07-05-2024 CNOV Office Visit (FAMPWS ) -- SIA OLIVERA ([id number]) 1985 F Date Time Provider Department 07/05/24 1:00 PM HUI VALDES During your visit today, we recorded the following information about you: Pulse Respiration Blood pressure Weight 94/minute 16/minute 136/84 78.8 kg Height 1.604 m Hui Valdes APRN.GROUP WORKER 07/05/2024 3:14 PM Signed 07/05/2024 Patient presents with: Establish Care SUBJECTIVE: This is a 38 year old that is here today for Above Complaints.. Struggles with focusing. Used to take ADHD medication. Used to be on Strattera which helped some. Admits to some depression but thinks it is due to her untreated ADHD. Currently attending counseling for marriage. Denies SI or HI. Some difficulty with sleeping due to kids do not sleep well. Recently son diagnosed with autism. Denies SI, HI or insomnia Urinates frequently and can have stress incontinence at times. Taking solifenacin which helps some. Was going to go to pelvic floor therapy but moved from [place] which is were [place] was going to go Hx of migraines. Take Metoprolol which controls them Working on losing weight. Eating better. Trying to get to 150# Past medical, surgical, family, social hx, medications, allergies and health maintenance reviewed and updated PAST MEDICAL HISTORY Diagnosis Date Abnormal Pap smear of cervix 2019 ASCUS neg HPV ADHD (attention deficit hyperactivity disorder), combined type 08/11/2018 Anemia Anxiety 07/07/2018 Bipolar disorder, in partial remission, most recent episode mixed (HCC) 10/04/2019 Depression, major, recurrent, moderate (HCC) 07/07/2018 Diet controlled gestational diabetes mellitus (GDM) in second trimester 07/05/2022 Drug use disorder remission since 06/2019; methamphetamines, marijuana Gastritis due to Helicobacter species 11/26/2021 GERD without esophagitis 02/08/2022 Grand multiparity 09/11/2022 - history 4 prior SVDs, this will be delivery #5 - admission CBC 11.9 Group B Streptococcus carrier, antepartum 07/26/2021 Sensitive to Vanc Herpes simplex virus (HSV) infection 2008 Hypertension, essential 11/26/2021 Migraine without aura and without status migrainosus, not intractable 07/07/2018 MRSA infection 08/15/2021 -patient reports history of multi-site staph skin infection, is unsure if MRSA or MSSA -will treat with vancomycin preoperatively if need for delivery OAB (overactive bladder) PUD (peptic ulcer disease) 11/26/2021 Urinary tract infection in , antepartum, second trimester 03/28/2022 ALLERGIES Amoxicillin MEDICATIONS Current Outpatient Medications Medication Sig solifenacin 10 mg tablet Take 0.5 tablets by mouth once daily. SUMAtriptan (IMITREX) 100 mg tablet Take 1 tablet (100 mg) by mouth as needed for migraine headache (see administration instructions). hydrocortisone (ANUSOL-HC) 2.5 % rectal cream by RECTAL route two times a day. metoprolol succinate ER (TOPROL XL) 25 mg 24 hr tablet Take 1 tablet by mouth once daily. terbinafine HCl (LAMISIL) 250 mg tablet Take 1 tablet by mouth once daily. (Patient not taking: Reported on 07/05/2024) No current facility-administered medications for this visit. Medications and allergies reviewed by this provider. SOCIAL HISTORY Social History Tobacco Use Smoking status: Former Current packs/day: 0.00 Average packs/day: 0.5 packs/day for 20.0 years (10.0 ttl pk-yrs) Types: Cigarettes Start date: 2000 Quit date: 2020 Years since quittin.8 Smokeless tobacco: Never Vaping Use Vaping status: Never Used Substance Use Topics Alcohol use: Not Currently Comment: rarely Drug use: Not Currently Types: Crystal Meth Comment: remission 06/2019 REVIEW OF SYSTEMS GENERAL: No weight loss, malaise or fevers HEENT: No changes in hearing or vision, no nose bleeds or other nasal problems NECK: Negative for lumps, goiter, pain and significant neck swelling RESPIRATORY: Negative for cough, hemoptysis, wheezing, COPD, dyspnea or shortness of breath CARDIOVASCULAR: Negative for chest pain, leg swelling, hypertension, CHF or palpitations GI: No nausea, vomiting, or diarrhea : See HPI RN CLINICAL APPEALS: Negative for abnormal vaginal bleeding, abnormal vaginal discharge MUSCULOSKELETAL: Negative for joint pain or swelling, back pain or muscle pain SKIN: Negative for lesions, rash, and itching PSYCH: See HPI HEMATOLOGY/LYMPHOLOGY: Negative for prolonged bleeding, bruising easily or swollen nodes ENDOCRINE: Negative for cold or heat intolerance, polyuria, polydipsia and goiter NEURO: No history of syncope, paralysis, seizures or tremors All other reviewed and negative other than HPI. OBJECTIVE: BP 136/84 Pulse 94 Resp 16 Ht 160.4 cm (5' 3.15) Wt 78.8 kg (173 lb 11.6 oz) LMP 08/03/2023 (Within Weeks) SpO2 98% BMI 30.63 kg/m? . Vital signs reviewed by t (more content not included)... Normal [facility] CNOVon 11-07-2023 CNOV Office Visit (UROLAE ) -- SIA OLIVERA ([id number]) 1985 F Date Time Provider Department 11/07/23 12:45 PM JOANNA WILKES UROVINAY During your visit today, we recorded the following information about you: Pulse Blood pressure 73/minute 110/71 Joanna Wilkes MD 12/14/2023 10:49 AM Signed [facility] NEW PATIENT CONSULT/HISTORY AND PHYSICAL PATIENT: Sia Olivera (38 year old) REFERRING PROVIDER: Shaun Carlin PCP: Shaun Carlin MD Consultation requested by Shaun Carlin for an opinion regarding Sia Olivera. My final recommendations will be communicated back to the requesting physician by way of shared Medical record or letter to requesting physician. ASSESSMENT/PLAN: 1. Urinary urgency/nocturia Urgency is her most bothersome symptom and is sometimes associated with suprapubic/lower abdominal pain. We discussed the etiology and management of urgency urinary incontinence, urinary urgency and frequency (also known as overactive bladder). I described our care pathway for this problem. I reviewed 1st and 2nd line treatment options including lifetstyle modifications, behavioral therapy, bladder retraining +/- physical therapy, and medications. - First-line therapy: Referral sent to [facility] for physical therapy -She has tried 2 medications including Myrbetriq and oxybutynin at 2 different doses. - Vesicare (Solifenacin) 10 mg was prescribed. Medication and side effects have been explained. Rx sent to pharmacy. Additional information provided in the AVS 2. Stress urinary incontinence. Discussed treatment of stress incontinence including pelvic floor physical therapy, pessary, surgical reaction with urethral sling or bulking agents. -A referral was sent to pelvic floor physical therapy -May be a good bulking agent if she wants to be She will follow-up with me in 3 months for recheck CHIEF COMPLAINT: Urinary incontinence HISTORY OF PRESENT ILLNESS: Patient is a 38-year-old female whom I was asked to see by her primary care provider for stress incontinence and overactive bladder symptoms. Symptoms began of the of her daughter in 2008. She states I have dealt with it , but would like to move forward with additional evaluation and management. Her most bothersome symptom is urgency. Cold triggers urgency but water and turning the enriquez in the door do not. She has tried 2 medications, Myrbetriq 50 mg and oxybutynin at 5 until nighttime doses. Neither were particularly helpful. She has done Kegel exercises without benefit. Current voiding concerns Daytime frequency: Urinary urgency: Yes, and sometimes associated with suprapubic pain. Most bothersome symptom Nocturia: X 3-5 Urinary urge incontinence: No Stress urinary incontinence: Yes, with cough, laugh, and sneeze. She crosses her legs to prevent leakage. She has occasional urinary hesitancy, most likely if she has severe urinary urgency or after sexual activity. She denies straining to urinate or slow stream. She has double voiding 1/10 times Has occasional dysuria. Denies gross hematuria or malodorous urine. No recent UTIs. Denies vaginal bulge, pressure. Has occasional vaginal discharge/odor Management strategies Conservative strategies: Kegel exercises Protective undergarments: No. Changes underwear Medications: Myrbetriq 50 mg, was tried in 2019 but was not helpful;oxybutynin 5 mg, increase to 10 mg in 2018. Not helpful. Bowels 2-3 bowel movements per week. Occasional fecal urgency. No fecal incontinence. Stool consistency: Normal No stool trapping. Former smoker. Half pack per day for 10 years. Quit 2020. No family history of urologic cancers The patient completed a PFDI-20 and I have reviewed and confirmed the responses documented by my nurse/MA at today's visit. Today's residual urine assessment by ultrasound is 70 mL ml. Today's urinalysis shows trace, intact blood. Negative nitrite. Neck leukocyte. I personally reviewed the past medical records received from the referring provider. I personally reviewed the prior radiology images, and my findings were discussed with the patient. I personally reviewed the prior labs, and my findings were discussed with the patient. 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 Normal [facility] CBC W Auto Differential pane l (Bld)on 07-01-2023 Basophils (Bld) [#/Vol] 0.06 10*3/uL <0.11 k/uL [facility] Basophils/100 WBC (Bld) 0.8 % [facility] Differential cell count method Nom (Bld) Auto [facility] Eosinophils (Bld) [#/Vol] 0.14 10*3/uL <0.46 k/uL [facility] Eosinophils/100 WBC (Bld) 1.8 % [facility] Erythrocyte distribution width (RBC) [Ratio] 13.2 % 11.5 - 15.0 % [facility] Hematocrit (Bld) [Volume fraction] 41.1 % 36.0 - 46.0 % [facility] Hemoglobin (Bld) [Mass/Vol] 13.4 g/dL 11.5 - 15.5 g/dL [facility] Immature granulocytes (Bld) [#/Vol] <0.10 k/uL [facility] Immature granulocytes/100 WBC (Bld) 0.1 % [facility] Lymphocytes (Bld) [#/Vol] 2.98 10*3/uL 1.00 - 4.00 k/uL [facility] Lymphocytes/100 WBC (Bld) 39.3 % [facility] MCH (RBC) [Entitic mass] 30.6 pg 26.0 - 34.0 pg [facility] MCHC (RBC) [Mass/Vol] 32.6 g/dL 30.5 - 36.0 g/dL [facility] MCV (RBC) [Entitic vol] 93.8 fL 80.0 - 100.0 fL [facility] Monocytes (Bld) [#/Vol] 0.73 10*3/uL <0.87 k/uL [facility] Monocytes/100 WBC (Bld) 9.6 % [facility] Neutrophils (Bld) [#/Vol] 3.67 10*3/uL 1.45 - 7.50 k/uL [facility] Neutrophils/100 WBC (Bld) 48.4 % [facility] Nucleated RBC (Bld) [#/Vol] <0.01 k/uL [facility] Nucleated RBC/100 WBC (Bld) [Ratio] 0.0 /100 WBC [facility] Platelet mean volume (Bld) [Entitic vol] 10.0 fL 9.0 - 12.7 fL [facility] Platelets (Bld) [#/Vol] 342 10*3/uL 150 - 400 k/uL [facility] RBC (Bld) [#/Vol] 4.38 10*6/uL 3.90 - 5.2 0 m/uL [facility] WBC (Bld) [#/Vol] 7.59 10*3/uL 3.70 - 11. 00 k/uL [facility] Comprehensive metabolic 2000 panelon 07-01-2023 Albumin [Mass/Vol] 4.0 g/dL 3.9 - 4.9 g/dL [facility] ALP [Catalytic activity/Vol] 49 U/L 34 - 123 U/L [facility] ALT [Catalytic activity/Vol] 11 U/L 7 - 38 U/L [facility] Anion gap [Moles/Vol] 11 mmol/L 9 - 18 mmol/L [facility] AST [Catalytic activity/Vol] 17 U/L 13 - 35 U/L [facility] Bilirubin [Mass/Vol] 0.2 mg/dL 0.2 - 1 .3 mg/dL [facility] Calcium [Mass/Vol] 9.3 mg/dL 8.5 - 10. 2 mg/dL [facility] Chloride [Moles/Vol] 108 mmol/L High 97 - 10 5 mmol/L [facility] CO2 [Moles/Vol] 21 mmol/L Low 22 - 30 mmol/L [facility] Creatinine [Mass/Vol] 0.67 mg/dL 0.58 - 0.96 mg/dL [facility] Estimated Glomerular Filtration Rate 116 mL/min/1.73m >=60 mL/min/1.73m [facility] Glucose [Mass/Vol] 88 mg/dL 74 - 99 mg/dL [facility] Potassium [Moles/Vol] 4.1 mmol/L 3.7 - 5.1 mmol/L [facility] Protein [Mass/Vol] 6.3 g/dL 6.3 - 8.0 g/dL [facility] Sodium [Moles/Vol] 140 mmol/L 136 - 144 mmol/L [facility] Urea nitrogen [Mass/Vol] 8 mg/dL 7 - 21 mg/dL [facility] HbA1c (Bld)on 07-01-2023 Average glucose Estimated from glycated hemoglobin (Bld) [Mass/Vol] 111 mg/dL [facility] HbA1c (Bld) [Mass fraction] 5.5 % 4.3 - 5.6 % [facility] Lipid 1996 panelon 3 Cholesterol [Mass/Vol] 175 mg/dL <200 mg/dL [facility] Cholesterol in HDL [Mass/Vol] 33 mg/dL Low >39 mg/dL [facility] Cholesterol in LDL [Mass/Vol] 121 mg/dL High <100 mg/dL [facility] Cholesterol in LDL/Cholesterol in HDL [Mass ratio] 3.67 {ratio} High <2.54 [facility] Cholesterol in VLDL [Mass/Vol] 21 mg/dL <30 mg/dL [facility] Cholesterol non HDL [Mass/Vol] 142 mg/dL High <130 mg/dL [facility] Cholesterol.total/Cho lesterol in HDL [Mass ratio] 5.30 {ratio} High <5.10 [facility] Fasting Time 12 hrs [facility] Triglyceride [Mass/Vol] 106 mg/dL <150 mg/dL [facility] CNOVon 03-26-2023 CNOV Office Visit (AGGENS 4) -- SIA OLIVERA ([id number]) 1985 F Date Time Provider Department 03/26/23 2:00 PM ESME [id number] During your visit today, we recorded the following information about you: Pulse Blood pressure Weight Height 77/minute 123/79 89.7 kg 1.613 m Esme Grace MD 03/26/2023 2:29 PM Signed SURGICAL SERVICES HISTORY AND PHYSICAL EXAMINATION SERVICE DATE: 03/26/2023 SERVICE TIME: 2:13 PM PRIMARY CARE PHYSICIAN: Shaun Carlin MD SUBJECTIVE CHIEF COMPLAINT: hernia HISTORY OF PRESENT ILLNESS: Ms. Olivera is a 37 year old female with a PMH of ADHD, anxiety/depression, bipolar disorder, hx of drug use disorder, migraines, HTN, GERD who presents for follow up after recent additional testing. Today she reports no changes in her health or medications. At the last clinic note I had recommended weight loss prior to repair of the small ventral hernia. Due to her symptoms of GERD I had recommended EGD. EGD was performed on 01/17/23 and demonstrated a non-obstructive Schatzki's ring. Pathology demonstrated mild reactive gastropathy and not morphologic evidence of Helicobacter pylori. She was encouraged to continue anti-reflux medications. She has lost 10 pounds since her last clinic visit with me. She states that since the EGD she has stopped use of NSAIDs and has had no further abdominal pain. Regarding the small ventral hernia, it not really bothered her. Per my last clinic note: I initially evaluated her in clinic on 10/13/2018. At that time she had a CT scan demonstrating a 3.4 x 2.5 cm fat containing ventral hernia. The actual fascial defect appeared to be only 5 mm. She was a daily 1 pack per day smoker at that time and had desire to become . Today she states that since seeing me last she has since had two more children and began to experience symptoms associated with her ventral/epigastric hernia. Previously it had not been symptomatic and now it is. She never had experienced issues with it protruding, but it is now - she is able to reduce the hernia, but doing so is painful and it does not stay reduced. She denies any associated skin changes, nausea, emesis or diarrhea/constipation. She is not planning on having any more children although her desires a daughter and they have 4 sons together. Her last delivery was 09/12/22. She states that during her most recent she experienced severe epigastric pain not related to the hernia which was not related to oral intake. She was treated for gastric ulcers during , but has not undergone any workup for this pain. She was started on omeprazole and remains on this medication daily. She has since gained weight to a BMI of 36.9 and a weight of 207 pounds. At her last visit her BMI was 33. She states that she did weigh more prior to her last - her heaviest weight was 222 pounds. Since she has been working out and working on weight loss Social: former drug user now in remission; former smoker - quit in 2020 PSHx: PAST MEDICAL HISTORY: PAST MEDICAL HISTORY Diagnosis Date Abnormal Pap smear of cervix 2019 ASCUS neg HPV ADHD (attention deficit hyperactivity disorder), combined type 08/11/2018 Anemia Anxiety 07/07/2018 Bipolar disorder, in partial remission, most recent episode mixed (HCC) 10/04/2019 Depression, major, recurrent, moderate (HCC) 07/07/2018 Diet controlled gestational diabetes mellitus (GDM) in second trimester 07/05/2022 Drug use disorder remission since 06/2019; methamphetamines, marijuana Gastritis due to Helicobacter species 11/26/2021 Grand multiparity 09/11/2022 - history 4 prior SVDs, this will be delivery #5 - admission CBC 11.9 Group B Streptococcus carrier, antepartum 07/26/2021 Sensitive to Vanc Herpes simplex virus (HSV) infection 2008 Hypertension, essential 11/26/2021 Migraine without aura and without status migrainosus, not intractable 07/07/2018 MRSA infection 08/15/2021 -patient reports history of multi-site staph skin infection, is unsure if MRSA or MSSA -will treat with vancomycin preoperatively if need for delivery OAB (overactive bladder) PUD (peptic ulcer disease) 11/26/2021 Urinary tract infection in , antepartum, second trimester 03/28/2022 PAST SURGICAL HISTORY: PAST SURGICAL HISTORY Procedure Laterality Date SECTION HX EGD DIAGNOSTIC 01/17/2023 INDUCED BY [facility] 2008 FAMILY HISTORY: FAMILY HISTORY Problem Relation Age of Onset Heart Mother Hypertension Father No Known Problems Brother No Known Problems Maternal Grandmother No Known Problems Maternal Grandfather Breast Cancer Paternal Grandmother No Known Problems Paternal Grandfather No Known Problems Brother SOCIAL HISTORY: Social History Tobacco Use Smoking status: Former Packs/day: (more content not included)... Normal [facility] ANES POSTPROC EVALon 023 ANES POSTPROC EVAL HNO ID: [id number] Author: Flora Fierro MD Service: Anesthesiology Author Type: Physician Type: Anesthesia Postprocedure Evaluation Filed: 01/17/2023 11:21 AM Note Text: POST ANESTHESIA EVALUATION NOTE : 1985 Procedure Summary Date: 01/17/23 Room / Location: [facility] Anesthesia Start: 827 Anesthesia Stop: 899 Procedure: EGD DIAGNOSTIC Diagnosis: Gastroesophageal reflux disease, unspecified whether esophagitis present Scheduled Providers: Esme Grace MD Responsible Provider: Flora Fierro MD Anesthesia Type: general ASA Status: 2 Anesthesia Type: general Airway Type: ETT Last Vitals Vitals Value Taken Time BP 123/71 01/17/23 0919 Temp 36.2 ?C (97.2 ?F) 01/17/23 0856 Pulse 90 01/17/23 0919 Resp 17 01/17/23 0919 SpO2 97 % 01/17/23918 Post Anesthesia Patient Status Patient Evaluation: bedside. Neurological Status: aware and responsive. Pulmonary Status: breathing comfortably on supplemental oxygen Airway Control: returned to baseline unsupported. Cardiovascular Status: stable. Pain Management: clinically adequate Postoperative Hydration: acceptable. Intraoperative Events: no significant anesthesia events Post Operative Nausea/Vomiting Status: no significant post operative nausea or vomiting Recommendation: continue current plan of care. Anesthesia Observations No Documentation SIGNATURE: Flora Fierro MD PATIENT NAME: Sia Olivera DATE: January 17, 2023 TIME: 11:16 AM CSN: [id number] [facility] ANES PRE-OPon 01-17-2023 ANES PRE-OP HNO ID: [id number] Author: Flora Fierro MD Service: Anesthesiology Author Type: Physician Type: Anesthesia Preprocedure Evaluation Filed: 01/17/2023 7:43 AM Note Text: ANESTHESIOLOGY DAY OF SURGERY NOTE : 1985 Procedure Information Date/Time: 01/17/23829 Scheduled providers: Esme Grace MD Procedure: EGD DIAGNOSTIC Location: [facility] Estimated body mass index is 36.09 kg/m? as calculated from the following: Height as of 01/01/23: 161.3 cm (5' 3.5). Weight as of 01/01/23: 93.9 kg (207 lb). Most recent hematocrit and potassium results: Hematocrit 30.7 09/13/2022 Potassium 4.2 10/30/2021 Relevant Problems CARDIO (+) Hypertension, essential (+) Migraine without aura and without status migrainosus, not intractable GI (+) GERD without esophagitis (+) PUD (peptic ulcer disease) NEURO-PSYCH (+) Migraine without aura and without status migrainosus, not intractable I - PHYSICAL EVALUATION AIRWAY Patient intubated: No. Tracheostomy tube not present Mallampati: II. TM distance: >3 FB. Neck ROM: full ROM without neurological symptoms. Mouth opening: adequate. Short neck: no. Thick neck: no Bateman present: no DENTAL Dental findings: teeth intact and poor dentition. II - ANESTHESIA PLAN ASA Score: 2 Anesthetic Plan: general Airway type: ETT NPO Status: adequate Beta Jacquelyn Monitoring Plan Monitoring plan: standard ASA. Post Procedure Analgesic Plan Postoperative analgesic plan: parenteral or oral opioids. Patient / Surrogate agrees to blood products: Yes Potential Anesthesia issues that may suggest increased risk of complications or contraindication to planned procedure: none. Vitals Value Taken Time BP 155/87 01/17/2330 Pulse 85 01/17/23729 Resp 19 01/17/23729 Temp 36.8 ?C (98.2 ?F) 01/17/23729 SpO2 97 % 01/17/23729 Outpatient Medications as of 01/17/2023 Medication Sig - SUMAtriptan (IMITREX) 100 mg tablet Take 1 tablet by mouth as needed for migraine headache (see administration instructions). - omeprazole (PRILOSEC) 40 mg capsule Take 1 capsule by mouth once daily. - hydrocortisone (ANUSOL-HC) 2.5 % rectal cream by RECTAL route twice daily. - Ljhihfgw-Ta-Qmu-Fe-FA tab Take 1 tablet by mouth once daily. (Patient not taking: Reported on 01/01/2023) Facility-Administered Medications as of 01/17/2023 Medication Dose Route Frequency - lactated ringers iv infusion 30 mL/hr INTRAVENOUS CONTINUOUS I have interviewed and examined the patient. I have reviewed the medical record and/or the pre-anesthesia evaluation, pertinent labs, and test results. This contains updated information obtained within 48 hours of Surgery/Procedure. SIGNATURE: Flora Fierro MD PATIENT NAME: Sia Olivera DATE: January 17, 2023 TIME: 7:43 AM CSN: [id number] Normal [facility] HCG ( test) Ql (U)o n 01-17-2023 Specific gravity (U) [Rel density] 1.023 Normal 1.006-1.029 [facility] Comment on above: Order Comment: Speci men Type: URINE SPECIMENOrdering Facility: [facility] Address: [address] [place] [address] Result Comment: If s pecific gravity is <1.005 then results may be falsely negative. Serum HCG is recommended. Performed By: #### 2 106-3 ####[facility] LABORATORYCLIA [id number] [address] [place] OF [facility] Specific gravity (U) [Rel density] 1.023 1.006 - 1.029 [facility] HCG Preg Ur Qlon 01-17-2023 HCG ( test) Ql (U) Negative Normal Negative [facility] Comment on above: Order Comment: Speci men Type: URINE SPECIMENOrdering Facility: [facility] Address: [address] [place] [address] Result Comment: This test is intended to aid in the early detection of . Very dilute urine samples, as indicated by a low specific gravity, may not contain petroleum products sales representative levels of hCG. This test detects intact hCG only. This test does not reliably detect hCG degradation products, including free-beta subunit and beta-core fragment. Therefore, this test may show reduced reactivity in urine after 8 weeks gestation. A number of conditions other than , including trophoblastic disease and certain non-trophoblastic neoplasms cause elevated levels of hCG. As with any assay employing mouse antibodies, the possibility exists for interference by human anti-mouse antibodies (HAMA) in the specimen. The test provides a presumptive diagnosis for . Performed By: #### 2 106-3 ####[facility] LABORATORYCLIA [id number] [place] [id number] [place] HCG QUAL URon 01-17-2023 HCG ( test) Ql (U) Negative Negative [facility] HISTORY PHYSICALon HISTORY PHYSICAL HNO ID: [id number] Author: Julio Dial APRN.GROUP WORKER Service: ? Author Type: Nurse Practitioner Type: HANDP Filed: 01/17/2023 8:24 AM Note Text: . HISTORY AND PHYSICAL EXAMINATION SERVICE DATE: 01/17/2023 SERVICE TIME: 7:23 AM PRIMARY CARE PHYSICIAN: Shaun Carlin MD REASON FOR VISIT: Sia Olivera is a 37 year old female who is scheduled for EGD at the request of Dr. Esme Grace for routine HANDP. The reason for this visit is to perform a comprehensive review of the patient's past medical history, assess their current health status and obtain any additional testing required based on anesthesia guidelines. We will also identify any potential anesthesia problems or contraindications to the planned procedure. The patient has the following: ACTIVE PROBLEM LIST Migraine Without Aura and Without Status Migrainosus, Not Intractable Obesity, Class II, Bmi 35-39.9 Pud (Peptic Ulcer Disease) Hypertension, Essential Hyperlipidemia, Mixed Gerd Without Esophagitis Pre-Op Testing Gastroesophageal Reflux Disease Subjective CHIEF COMPLAINT: Gastroesophageal reflux disease, unspecified whether esophagitis present [K21.9] HPI: Patient present to [facility] for the above procedure. Patient here for Upper GI Endoscopy screening related to GERD and gastric ulcer. Patient reports occasional upper gastric pain for about 2 years, she also has a umbilical hernia. Patient denies recent N/V, diarrhea or constipation. Occasional bright red blood in stool related to tearing per patient. Denies hematemesis. Patient has no known family history of Esophageal cancer, Colon cancer or other Gastric cancer. Patient agreed to planned procedure. METS: Climb a flight of stairs or walk up a hill (5.50 METs) Patient denies any CP/SOB with above activity. PAST MEDICAL HISTORY Diagnosis Date Abnormal Pap smear of cervix 2020 ASCUS neg HPV ADHD (attention deficit hyperactivity disorder), combined type 08/11/2018 Anemia Anxiety 07/07/2018 Bipolar disorder, in partial remission, most recent episode mixed (HCC) 10/04/2019 Depression, major, recurrent, moderate (HCC) 07/07/2018 Diet controlled gestational diabetes mellitus (GDM) in second trimester 07/05/2022 Drug use disorder remission since 06/2019; methamphetamines, marijuana Gastritis due to Helicobacter species 11/26/2021 Grand multiparity 09/11/2022 - history 4 prior SVDs, this will be delivery #5 - admission CBC 11.9 Group B Streptococcus carrier, antepartum 07/26/2021 Sensitive to Vanc Herpes simplex virus (HSV) infection 2008 Hypertension, essential 11/26/2021 Migraine without aura and without status migrainosus, not intractable 07/07/2018 MRSA infection 08/15/2021 -patient reports history of multi-site staph skin infection, is unsure if MRSA or MSSA -will treat with vancomycin preoperatively if need for delivery OAB (overactive bladder) PUD (peptic ulcer disease) 11/26/2021 Urinary tract infection in , antepartum, second trimester 03/28/2022 PAST SURGICAL HISTORY Procedure Laterality Date SECTION HX INDUCED BY [facility] 2008 FAMILY HISTORY Problem Relation Age of Onset Heart Mother Hypertension Father No Known Problems Brother No Known Problems Maternal Grandmother No Known Problems Maternal Grandfather Breast Cancer Paternal Grandmother No Known Problems Paternal Grandfather No Known Problems Brother SOCIAL HISTORY: Social History Tobacco Use Smoking status: Former Packs/day: 0.50 Years: 20.00 Pack years: 10.00 Types: Cigarettes Quit date: 2020 Years since quittin.3 Smokeless tobacco: Never Vaping Use Vaping Use: Never used Substance Use Topics Alcohol use: Not Currently Comment: rarely Drug use: Not Currently Types: Crystal Meth Comment: remission 06/2019 Prior to Admission medications as of 01/17/23 0724 Medication Sig Last Dose Taking SUMAtriptan (IMITREX) 100 mg tablet Take 1 tablet by mouth as needed for migraine headache (see administration instructions). Past Week Yes omeprazole (PRILOSEC) 40 mg capsule Take 1 capsule by mouth once daily. 01/16/2023 Yes hydrocortisone (ANUSOL-HC) 2.5 % rectal cream by RECTAL route twice daily. 01/10/2023 Tmlmweip-Bt-Ppf-Fe-FA tab Take 1 tablet by mouth once daily. Patient not taking: Reported on 01/01/2023 No medication comments found. ALLERGIES Allergen Reactions Amoxicillin Unknown WAS TOLD BY MOM REVIEW OF SYSTEMS: PAIN ASSESSMENT: Pain Pain Level: 0 Pain Assessment: Assessment Tool: Verbal (Numeric Rating or Visual Analog Scale) General: Denies fever, chills, and unexpected weight change. Neuro: Denies dizziness and headaches. Respiratory: No history of current cough or dyspnea, or pneumonia in the past 6 weeks. No history of respiratory/pulmonary symptoms or problems. No history of current cough or dyspnea, or pneumonia in the past 6 weeks. Cardiovascular (more content not included)... Normal [facility] OPERATIVE NOon 01-17-2023 OPERATIVE NO HNO ID: [id number] Author: Esme Grace MD Service: General Surgery Author Type: Physician Type: Operative Report Filed: 01/17/2023 8:56 AM Note Text: OPERATIVE/PROCEDURE REPORT LOG ID: [id number] Surgery/Procedure Date: Incision/Procedure Start Time: 8:42 AM Incision Close/Procedure End Time: 8:45 AM Surgeon(s)/Proceduralist(s ) and Pipe And Test Supervisor(s): Surgeon(s) and Role: * Esme Grace MD - Proceduralist No Additional Staff PREOPERATIVE DIAGNOSIS: 1. Epigastric pain 2. GERD 3. Severe obesity POSTOPERATIVE DIAGNOSIS: 1. Epigastric pain 2. GERD 3. Severe obesity 4. Non-obstructive Schatzki's ring COMPLICATIONS: None. Procedure(s): 1. Esophagogastroduodenoscopy (EGD) with cold forceps biopsies of the gastric antrum Anesthesia: * No anesthesia type entered * MAC by Anesthesiology without complications Operative Findings: Diagnostic EGD demonstrated non-obstructing Schatzki's ring, but no ulcers or erosions or other abnormalities Operative Indication: Sia Olivera is a 37 year old female who presents for EGD due to symptoms of epigastric pain and GERD. We discussed the risks, benefits, alternatives, and potential complications, and the patient agreed to proceed. Procedure Details: The patient was brought to the endoscopic suite in stable condition. The preprocedural checklist was completed to the satisfaction of the entire team and verified with the patient. We had previously completed the consent process after discussing the risks and benefits of the procedure, which included, but were not limited to, the risk of hemorrhage, need for blood transfusion, and the possibility of perforation. Once she was induced by Anesthesia and appropriately sedated, the Olympus gastroscope was entered through the mouth. I was easily able to intubate the esophagus. The esophageal portion of the examination was positive for a slightly tortuous esophagus and a non-obstructive Schatzki's ring. There was no resistance to passage of the endoscope at the gastroesophageal junction. The Z-line was measured at 39 centimeters from the bite protector. The diaphragmatic hiatus was measured at 39-cm from the bite protector. I then entered the stomach. The patient had some gastric secretions, which were suctioned out using the gastroscope. I did retroflex the scope, which showed a normal appearing GE junction and fundus from that angle. Retroflex view showed a Hill grade 1. I then intubated the pylorus into the duodenal bulb, examining both the anterior and posterior portions of the duodenal bulb and then into the second portion of the duodenum. That part of the procedure was within normal limits. Once back in the stomach, I then performed 2 separate cold forceps biopsies in the gastric antrum to be sent for H.pylori. This was done with minimal bleeding. I ensured we had good hemostasis. Gastric insufflation was removed using suction. The gastroscope was removed through the mouth. The patient tolerated the procedure very well and was returned to recovery room in stable condition. Recommendations: smoking cessation. Continue antireflux medications Estimated Blood Loss: minimal Specimens: 1. Gastric antrum Implantable Devices: none Drains: None Complications: None I performed the procedure independently SIGNATURE: Esme Grace MD PATIENT NAME: Sia Olivera DATE: January 17, 2023 TIME: 8:51 AM PAGER/CONTACT #: Normal [facility] SURGICAL PATHOLOGYon 023 CASE REPORT Normal [facility] Comment on above: Order Comment: Speci men Type: TISSUE SPECIMENOrdering Facility: [facility] Address: [facility] [place] [address] Result Comment: Surg [facility] Pathology Report Case: [id number] Authorizing Provider: Esme Grace MD Collected: 01/17/2023 08:42 AM Ordering Location: [facility] Received: 01/17/2023 10:26 AM Pathologist: Awa Jones MD Specimen: ANTRUM (STOMACH) BIOPSY Performed By: #### S ####[facility] LABORATORYCLIA [id number] [address] FINAL DIAGNOSIS Normal [facility] Comment on above: Order Comment: Speci men Type: TISSUE SPECIMENOrdering Facility: [facility] Address: [address] [place] [address] Result Comment: A. S tomach, antrum, biopsy: - Mild reactive gastropathy. No morphologic evidence of Helicobacter pylori. Performed By: #### S ####[facility] LABORATORYCLIA [id number] [address] FINAL PERFORMING LAB Normal [facility] Comment on above: Order Comment: Speci men Type: TISSUE SPECIMENOrdering Facility: [facility] Address: [address] [place] [address] Result Comment: Diag nostic interpretation performed at [facility], [address] [place] [address] CLIA# [id number] Film Library Clerk: Flora Daly M.D. Performed By: #### S ####[facility] LABORATORYCLIA [id number] [address] GROSS DESCRIPTION Normal [facility] Comment on above: Order Comment: Speci men Type: TISSUE SPECIMENOrdering Facility: [facility] Address: [address] [place] [address] Result Comment: A. A NTRUM (STOMACH) BIOPSY Received in formalin labeled antrum (stomach) biopsy are multiple pieces of schmidt, soft tissue aggregating to 0.7 x 0.3 x 0.2 cm. Totally submitted in one cassette. Gross examination performed at [facility], [address] [place] [address] CLIA# [id number] RSA January 17, 2023 1:29 PM Performed By: #### S ####[facility] LABORATORYCLIA [id number] [address] OF [facility] CNOVon 01-01-2023 CNOV Office Visit (AGGENS 4) -- SIA OLIVERA ([id number]) 1985 F Date Time Provider Department 01/01/23 2:30 PM ESME GRACE4 During your visit today, we recorded the following information about you: Pulse Blood pressure Weight Height 80/minute 118/76 93.9 kg 1.613 m Esme Grace MD 01/01/2023 2:55 PM Signed SURGICAL SERVICES HISTORY AND PHYSICAL EXAMINATION SERVICE DATE: 01/01/2023 SERVICE TIME: 2:25 PM PRIMARY CARE PHYSICIAN: Shaun Carlin MD SUBJECTIVE CHIEF COMPLAINT: hernia HISTORY OF PRESENT ILLNESS: Ms. Olivera is a 37 year old female with a PMH of ADHD, anxiety/depression, bipolar disorder, hx of drug use disorder, migraines, HTN, GERD who presents for evaluation of a ventral hernia. I initially evaluated her in clinic on 10/13/2018. At that time she had a CT scan demonstrating a 3.4 x 2.5 cm fat containing ventral hernia. The actual fascial defect appeared to be only 5 mm. She was a daily 1 pack per day smoker at that time and had desire to become . Today she states that since seeing me last she has since had two more children and began to experience symptoms associated with her ventral/epigastric hernia. Previously it had not been symptomatic and now it is. She never had experienced issues with it protruding, but it is now - she is able to reduce the hernia, but doing so is painful and it does not stay reduced. She denies any associated skin changes, nausea, emesis or diarrhea/constipation. She is not planning on having any more children although her desires a daughter and they have 4 sons together. Her last delivery was 09/12/22. She states that during her most recent she experienced severe epigastric pain not related to the hernia which was not related to oral intake. She was treated for gastric ulcers during , but has not undergone any workup for this pain. She was started on omeprazole and remains on this medication daily. She has since gained weight to a BMI of 36.9 and a weight of 207 pounds. At her last visit her BMI was 33. She states that she did weigh more prior to her last - her heaviest weight was 222 pounds. Since she has been working out and working on weight loss Social: former drug user now in remission; former smoker - quit in 2020 PSHx: PAST MEDICAL HISTORY: PAST MEDICAL HISTORY Diagnosis Date Abnormal Pap smear of cervix 2019 ASCUS neg HPV ADHD (attention deficit hyperactivity disorder), combined type 08/11/2018 Anemia Anxiety 07/07/2018 Bipolar disorder, in partial remission, most recent episode mixed (HCC) 10/04/2019 Depression, major, recurrent, moderate (HCC) 07/07/2018 Diet controlled gestational diabetes mellitus (GDM) in second trimester 07/05/2022 Drug use disorder remission since 06/2019; methamphetamines, marijuana Gastritis due to Helicobacter species 11/26/2021 Grand multiparity 09/11/2022 - history 4 prior SVDs, this will be delivery #5 - admission CBC 11.9 Group B Streptococcus carrier, antepartum 07/26/2021 Sensitive to Vanc Herpes simplex virus (HSV) infection 2008 Hypertension, essential 11/26/2021 Migraine without aura and without status migrainosus, not intractable 07/07/2018 MRSA infection 08/15/2021 -patient reports history of multi-site staph skin infection, is unsure if MRSA or MSSA -will treat with vancomycin preoperatively if need for delivery OAB (overactive bladder) PUD (peptic ulcer disease) 11/26/2021 Urinary tract infection in , antepartum, second trimester 03/28/2022 PAST SURGICAL HISTORY: PAST SURGICAL HISTORY Procedure Laterality Date SECTION HX INDUCED BY [facility] 2008 FAMILY HISTORY: FAMILY HISTORY Problem Relation Age of Onset Heart Mother Hypertension Father No Known Problems Brother No Known Problems Maternal Grandmother No Known Problems Maternal Grandfather Breast Cancer Paternal Grandmother No Known Problems Paternal Grandfather No Known Problems Brother SOCIAL HISTORY: Social History Tobacco Use Smoking status: Former Packs/day: 0.50 Years: 20.00 Pack years: 10.00 Types: Cigarettes Quit date: 2020 Years since quittin.2 Smokeless tobacco: Never Vaping Use Vaping Use: Never used Substance Use Topics Alcohol use: Not Currently Comment: rarely Drug use: Not Currently Types: Crystal Meth Comment: remission 06/2019 MEDICATIONS: Current Outpatient Medications Medication Sig hydrocortisone (ANUSOL-HC) 2.5 % rectal cream by RECTAL route twice daily. SUMAtriptan (IMITREX) 100 mg tablet Take 1 tablet by mouth as needed for migraine headache (see administration instructions). omeprazole (PRILOSEC) 40 mg capsule Take 1 capsule by mouth once daily. Xllfytwq-Xq-Xvk-Fe-FA tab Take 1 tablet by mouth once daily. (Patient not ta (more content not included)... [facility] DENS[facility] ([id number]) 1985 F Date Time Provider Department 01/01/23 ESME GRACE4 During your visit today, we recorded the following information about you: Ese Contreras MA 01/01/2023 3:56 PM Signed EGD scheduled for 01/17/2023 at 8:30 am. Prep/instructions given to patient at checkout. Ese Contreras MA Allergies As of Date: 01/01/2023 Noted Allergy Reaction AMOXICILLIN 07/07/2018 16 - Unknown Comments: WAS TOLD BY MOM Date Reviewed: 01/01/2023 Reviewed by: Esme Grace MD - Fully Assessed Reason for Visit: Appointment [186] Cmt: EGD Prescriptions as of 01/01/2023 - hydrocortisone (ANUSOL-HC) 2.5 % rectal cream by RECTAL route twice daily. - SUMAtriptan (IMITREX) 100 mg tablet Take 1 tablet by mouth as needed for migraine headache (see administration instructions). - omeprazole (PRILOSEC) 40 mg capsule Take 1 capsule by mouth once daily. - Ieerirdt-Fi-Hns-Fe-FA tab Take 1 tablet by mouth once daily. Problem List As Of Date 01/01/2023 Noted Resolved Migraine without aura and without status migrai*07/07/2018 Depression, major, recurrent, moderate (HCC) [F*07/07/2018 08/15/2021 Anxiety [F41.9] 07/07/2018 08/15/2021 Methamphetamine abuse (HCC) [F15.10] 07/07/2018 04/26/2021 Marijuana abuse [F12.10] 07/07/2018 04/26/2021 Abdominal wall mass [R22.2] 08/11/2018 09/03/2018 ADHD (attention deficit hyperactivity disorder)*08/11/2018 08/15/2021 Obesity, Class II, BMI 35-39.9 [E66.9] 09/03/2018 Tobacco use disorder [F17.200] 10/30/2018 12/12/2020 Pure hypercholesterolemia [E78.00] 11/02/2018 08/15/2021 Bipolar disorder, in partial remission, most re*10/04/2019 08/15/2021 Elderly multigravida in third trimester [O09.52*01/12/2021 10/30/2021 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 10/30/2021 Nausea and vomiting of , antepartum [O*01/12/2021 10/08/2022 headache in first trimester [O26.891,*02/09/2021 06/29/2021 Group B Streptococcus carrier, antepartum [O99.*07/26/2021 10/30/2021 Encounter for elective induction of labor [Z34.*08/15/2021 08/18/2021 History of MRSA infection [Z86.14] 08/15/2021 10/08/2022 Epigastric pain [R10.13] 10/30/2021 02/08/2022 Elevated blood pressure reading without diagnos*10/30/2021 11/26/2021 Gastritis due to Helicobacter species [K29.70, *11/26/2021 02/08/2022 PUD (peptic ulcer disease) [K27.9] 11/26/2021 Hypertension, essential [I10] 11/26/2021 Hyperlipidemia, mixed [E78.2] 11/26/2021 GERD without esophagitis [K21.9] 02/08/2022 Preexisting hypertension complicating *03/05/2022 10/08/2022 Obesity complicating , first trimester*03/05/2022 10/08/2022 History of group B Streptococcus (GBS) infectio*03/05/2022 10/08/2022 Multigravida of advanced maternal age in first *03/05/2022 10/08/2022 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 10/08/2022 Vaginitis complicating current [O23.5*03/05/2022 12/10/2022 History of drug use [F19.91] 03/05/2022 10/08/2022 Vaginal bleeding in [O46.90] 03/11/2022 09/11/2022 Abdominal pain affecting [O26.899, R1*03/11/2022 10/08/2022 Urinary tract infection affecting care of mothe*03/28/2022 10/08/2022 14 weeks gestation of [Z3A.14] 03/28/2022 09/11/2022 Diet controlled gestational diabetes mellitus (*07/05/2022 10/08/2022 Encounter for induction of labor [Z34.90] 09/11/2022 10/08/2022 Contraception management [Z30.9] 09/11/2022 10/08/2022 Grand multiparity [Z64.1] 09/11/2022 12/10/2022 Encounter Status:Closed by ESE CONTRERAS on 01/01/23 Normal [facility] Office Visit (Urgent Care)on 12-25-2022 Follow-up visit Diagnoses/Problems Assessed URI, acute (465.9) (J06.9) Orders URI, acute Start: Azithromycin 250 MG Oral Tablet (Zithromax Z-Hu); TAKE 2 TABLETS ON DAY 1 THEN TAKE 1 TABLET A DAY FOR 4 DAYS Rx By: Juan Larson; Dispense: 0 Days ; #:1 X 6 Tablet Pack; Refill: 0;For: URI, acute; THEA = N; Sent To: [facility] Start: methylPREDNISolone 4 MG Oral Tablet Therapy Pack (Medrol); Take as directed Rx By: Juan Larson; Dispense: 0 Days ; #:1 X 21 Tablet Pack; Refill: 0;For: URI, acute; THEA = N; Sent To: [facility] Patient Discussion/Summary Bronchitis for sinusitis Start Medrol Dosepak and Zithromax antibiotic for anti-inflammatory and antibacterial properties Patient agrees with this plan of care Above plan of care was reviewed with the patient, all questions were answered, through shared decision making the patient agrees with this plan of care. Red flags for strict return precaution have been reviewed with the patient, patient / patients parent is alert, oriented and non-toxic appearing, has decision making capabilities and agrees with the plan of care through shared decision making at this time. Current diagnosis, any medication changes, lab or radiologic results have been reviewed with the patient at the time of visit. If symptoms do not improve, or worsen, patient is to follow up with PCP or report to the emergency room. Through shared decision-making the patient agrees with the treatment plan and disposition decision. Chief Complaint cough, URI History of Present Illness cough, horse voice and reddened sore throat. patient reports sick children at home. symptoms x 7days Patient is not a current smoker, states that she is coughing up yellow sputum denies any chest pain or shortness of breath, abdominal pain nausea or vomiting. Patient has used [id number]-[id number] cough and cold remedies with only minimal relief LMP: 1.5 weeks ago Review of Systems Constitutional: as noted in HPI. All other systems have been reviewed and are negative for complaint. Active Problems Problems Cellulitis of left axilla (682.3) (L03.112) Past Medical History Problems History of Patient denies medical problems (V49.89) (Z78.9) Family History Mother No pertinent family history Father No pertinent family history Social History Problems Current smoker (305.1) (F17.200) Allergies Medication amoxicillin Recorded By: Tadeo Stein; 01/23/2022 10:10:00 AM Current Meds Medication NameInstruction Clindamycin HCl - 300 MG Oral CapsuleTake 1 capsule twice daily Mobic TABS SUMAtriptan Succinate 25 MG Oral Tablet traZODone HCl - 100 MG Oral Tablet Zonisamide 100 MG Oral Capsule Physical Exam Vitals signs and nursing notes reviewed All past medical, surgical, and social history reviewed All medications and allergies reviewed GENERAL: Alert, No acute distress. EYES: EOM?s in tact, no outward signs of abnormality ENT: Moist mucous membranes. Ears AND nose without masses on external exam. Trachea midline. No oropharyngeal swelling. LUNGS: Clear to auscultation, good air exchange with no accessory muscle use. No wheezing, rales or rhonchi. HEART: Regular rate AND rhythm. No thrills, murmurs, rubs or gallops. ABDOMEN: deffered. NEURO: CN II-XII grossly intact. No focal neurological deficits. SKIN: No rashes or lesions. No petechia. No purpura. Good turgor. No edema. No cyanosis or clubbing Signatures Electronically signed by : Juan Larson, [employer]; Dec 25 2022 9:54AM EST (Author) Normal [facility] OBSTETRIC ULTRASOUND WHIon 1 10-31-2021 [facility] UA DIP, URINE (POC)on 2021 BILIRUBIN UA (POCT) Negative Negative [facility] CLARITY UA (POCT) Clear [facility] COLOR UA (POCT) Yellow [facility] GLUCOSE UA (POCT) Negative Negative mg/dL [facility] HEMOGLOBIN/BLOOD UA (POCT) Negative Negative [facility] KETONE UA (POCT) Negative Negative mg/dL [facility] LEUKOCYTES UA (POCT) Large Abnormal Negative [facility] NITRITE UA (POCT) Negative Negative [facility] PH UA (POCT) 7.0 4.5 - 8.0 [facility] Protein Ql (U) Negative Negative mg/dL [facility] SPECIFIC GRAVITY UA (POCT) 1.020 1.005 - 1.030 [facility] UROBILINOGEN UA (POCT) 0.2 E.U./dL Normal E.U./dL [facility] UA DIP, URINE (POC)on 2021 BILIRUBIN UA (POCT) Negative Negative [facility] CLARITY UA (POCT) Clear [facility] COLOR UA (POCT) Yellow [facility] GLUCOSE UA (POCT) Negative Negative mg/dL [facility] HEMOGLOBIN/BLOOD UA (POCT) Negative Negative [facility] KETONE UA (POCT) 15 mg/dL Abnormal Negative mg/dL [facility] LEUKOCYTES UA (POCT) Negative Negative [facility] NITRITE UA (POCT) Negative Negative [facility] PH UA (POCT) 7.5 4.5 - 8.0 [facility] Protein Ql (U) Negative Negative mg/dL [facility] SPECIFIC GRAVITY UA (POCT) 1.020 1.005 - 1.030 [facility] UROBILINOGEN UA (POCT) 1.0 E.U./dL Normal E.U./dL [facility] UA DIP, URINE (POC)on 2021 BILIRUBIN UA (POCT) Negative Negative [facility] CLARITY UA (POCT) Clear [facility] COLOR UA (POCT) Yellow [facility] GLUCOSE UA (POCT) Negative Negative mg/dL [facility] HEMOGLOBIN/BLOOD UA (POCT) Negative Negative [facility] KETONE UA (POCT) Negative Negative mg/dL [facility] LEUKOCYTES UA (POCT) Small Abnormal Negative [facility] NITRITE UA (POCT) Negative Negative [facility] PH UA (POCT) 7.0 4.5 - 8.0 [facility] Protein Ql (U) Trace Abnormal Negative mg/dL [facility] SPECIFIC GRAVITY UA (POCT) 1.020 1.005 - 1.030 [facility] UROBILINOGEN UA (POCT) 0.2 E.U./dL Normal E.U./dL [facility] OBSTETRIC ULTRASOUND WHIon 1 09-18-2021 [facility] UA DIP, URINE (POC)on 2021 BILIRUBIN UA (POCT) Negative Negative [facility] CLARITY UA (POCT) Clear [facility] COLOR UA (POCT) Yellow [facility] GLUCOSE UA (POCT) Negative Negative mg/dL [facility] HEMOGLOBIN/BLOOD UA (POCT) Negative Negative [facility] KETONE UA (POCT) Negative Negative mg/dL [facility] LEUKOCYTES UA (POCT) Small Abnormal Negative [facility] NITRITE UA (POCT) Negative Negative [facility] PH UA (POCT) 7.5 4.5 - 8.0 [facility] Protein Ql (U) Negative Negative mg/dL [facility] SPECIFIC GRAVITY UA (POCT) 1.020 1.005 - 1.030 [facility] UROBILINOGEN UA (POCT) 0.2 E.U./dL Normal E.U./dL [facility] UA DIP, URINE (POC)on 2021 BILIRUBIN UA (POCT) Negative Negative [facility] CLARITY UA (POCT) Clear [facility] COLOR UA (POCT) Yellow [facility] GLUCOSE UA (POCT) Negative Negative mg/dL [facility] HEMOGLOBIN/BLOOD UA (POCT) Negative Negative [facility] KETONE UA (POCT) Trace Negative mg/dL [facility] LEUKOCYTES UA (POCT) Small Abnormal Negative [facility] NITRITE UA (POCT) Negative Negative [facility] PH UA (POCT) 7.0 4.5 - 8.0 [facility] Protein Ql (U) Negative Negative mg/dL [facility] SPECIFIC GRAVITY UA (POCT) 1.025 1.005 - 1.030 [facility] UROBILINOGEN UA (POCT) 0.2 E.U./dL Normal E.U./dL [facility] UA DIP, URINE (POC)on 2021 BILIRUBIN UA (POCT) Negative Negative [facility] CLARITY UA (POCT) Clear [facility] COLOR UA (POCT) Yellow [facility] GLUCOSE UA (POCT) Negative Negative mg/dL [facility] HEMOGLOBIN/BLOOD UA (POCT) Negative Negative [facility] KETONE UA (POCT) Negative Negative mg/dL [facility] LEUKOCYTES UA (POCT) Small Abnormal Negative [facility] NITRITE [facility]A (POCT) Negative Negative [facility] PH UA (POCT) 8.0 4.5 - 8.0 [facility] Protein Ql (U) Negative Negative mg/dL [facility] SPECIFIC GRAVITY UA (POCT) 1.020 1.005 - 1.030 [facility] UROBILINOGEN UA (POCT) 0.2 E.U./dL Normal E.U./dL [facility] UA DIP, URINE (POC)on 2021 BILIRUBIN UA (POCT) Negative Negative [facility] CLARITY UA (POCT) Clear [facility] COLOR UA (POCT) Yellow [facility] GLUCOSE UA (POCT) Negative Negative mg/dL [facility] HEMOGLOBIN/BLOOD UA (POCT) Negative Negative [facility] KETONE UA (POCT) Trace Negative mg/dL [facility] LEUKOCYTES UA (POCT) Small Abnormal Negative [facility] [facility] NITRITE UA (POCT) Negative Negative [facility] PH UA (POCT) 7.0 4.5 - 8.0 [facility] Protein Ql (U) 30 mg/dL Abnormal Negative mg/dL [facility] SPECIFIC GRAVITY UA (POCT) 1.020 1.005 - 1.030 [facility] UROBILINOGEN UA (POCT) 0.2 E.U./dL Normal E.U./dL [facility] CBC panel Auto (Bld)on 02-14 Erythrocyte distribution width (RBC) [Ratio] 13.1 % 11.5 - 15.0 % [facility] Hematocrit (Bld) [Volume fraction] 38.1 % 36.0 - 46.0 % [facility] Hemoglobin (Bld) [Mass/Vol] 12.6 g/dL 11.5 - 15.5 g/dL [facility] MCH (RBC) [Entitic mass] 30.5 pg 26.0 - 34.0 pg [facility] MCHC (RBC) [Mass/Vol] 33.1 g/dL 30.5 - 36.0 g/dL [facility] MCV (RBC) [Entitic vol] 92.3 fL 80.0 - 100.0 fL [facility] Nucleated RBC (Bld) [#/Vol] 10*3/uL <0.01 k/uL [facility] Platelet mean volume (Bld) [Entitic vol] 9.6 fL 9.0 - 12.7 fL [facility] Platelets (Bld) [#/Vol] 353 10*3/uL 150 - 400 k/uL [facility] RBC (Bld) [#/Vol] 4.13 10*6/uL 3.90 - 5.2 0 m/uL [facility] WBC (Bld) [#/Vol] 11.89 10*3/uL High 3.70 - 11 .00 k/uL [facility] TYPE AND SCREENon 02-14-2022 ABO O [facility] HIstorical Ab Scr Status Negative [facility] Rh Nom (Bld) Positive [facility] Type and Screen Expiration 02/17/2022 23:59 [facility] UA DIP, URINE (POC)on 2021 BILIRUBIN UA (POCT) Negative Negative [facility] CLARITY UA (POCT) Clear [facility] COLOR UA (POCT) Yellow [facility] GLUCOSE UA (POCT) Negative Negative mg/dL [facility] HEMOGLOBIN/BLOOD UA (POCT) Negative Negative [facility] KETONE UA (POCT) Negative Negative mg/dL [facility] LEUKOCYTES UA (POCT) Negative Negative [facility] NITRITE UA (POCT) Negative Negative [facility] PH UA (POCT) 7.0 4.5 - 8.0 [facility] Protein Ql (U) Negative Negative mg/dL [facility] SPECIFIC GRAVITY UA (POCT) 1.025 1.005 - 1.030 [facility] UROBILINOGEN UA (POCT) 0.2 E.U./dL Normal E.U./dL [facility] Office Visit (Urgent Care)on 01-23-2022 Follow-up visit Patient Discussion/S ummary Stop lisinopril it is teratogenic Start Zyrtec Follow with primary care and OB Red flags for strict return precaution have been reviewed with the patient, patient is alert, oriented and non-toxic appearing, has decision making capabilities and agrees with the plan of care through shared decision making at this time. Current diagnosis, any medication changes, lab or radiologic results have been reviewed with the patient at the time of visit. If symptoms do not improve, or worsen, patient is to follow up with PCP or report to the emergency room. Patient is alert and oriented x3 vital signs stable nontoxic-appearing and has decision-making capabilities. Through shared decision-making the patient agrees with the treatment plan and disposition decision Chief Complaint Bronchitis History of Present Illness had bronchitis around January 08. was prescribed medication but later found out she was and had to discontinue. bronchitis is still present, cough and yellow mucus, worse at night, patient states she took 7 days of clindamycin she is also on lisinopril and p.o. vitamins. She is 6 para 4 1 Cough worse at night with nasal discharge denies any fever, chest pain, shortness of breath, she is a non-smoker denies any wheezing. Review of Systems Constitutional: as noted in HPI. All other systems have been reviewed and are negative for complaint. Active Problems Problems Cellulitis of left axilla (682.3) (L03.112) Past Medical History Problems History of Patient denies medical problems (V49.89) (Z78.9) Family History Mother No pertinent family history Father No pertinent family history Social History Problems Current smoker (305.1) (F17.200) Allergies Medication amoxicillin Recorded By: Tadeo Stein; 01/23/2022 10:10:00 AM Current Meds Medication NameInstruction Clindamycin HCl - 300 MG Oral CapsuleTake 1 capsule twice daily Mobic TABS SUMAtriptan Succinate 25 MG Oral Tablet traZODone HCl - 100 MG Oral Tablet Zonisamide 100 MG Oral Capsule Vitals Vital Signs Recorded: 23Jan2022 10:07AM Eavlmvndwqg97.6 F, Temporal Heart Mows091 Mewkbhmf314 Fgkohhecv81 Height5 ft 3 in Ynauxz282 lb 4 oz BMI Tmeibwbhqx02.72 kg/m2 BSA Calculated2.03 O2 Dosqgpamen63 Physical Exam Vitals signs and nursing notes reviewed All past medical, surgical, and social history reviewed All medications and allergies reviewed GENERAL: Alert, AND oriented x3. No acute distress. EYES: EOM?s in tact, no outward signs of abnormality ENT: Moist mucous membranes. Ears AND nose without masses on external exam. Trachea midline. No oropharyngeal swelling. LUNGS: Clear to auscultation, good air exchange with no accessory muscle use. No wheezing, rales or rhonchi. HEART: Regular rate AND rhythm. No thrills, murmurs, rubs or gallops. ABDOMEN: Normoactive BS. Abdomen soft, nondistended. No pulsatile mass, no flank tenderness or suprapubic tenderness. No hepatosplenomegaly. NEURO: CN II-XII grossly intact. No focal neurological deficits. SKIN: No rashes or lesions. No petechia. No purpura. Good turgor. No edema. No cyanosis or clubbing Signatures Electronically signed by : EVETTE Segura; Jan 23 2022 10:16AM EST (Author) [facility] Provider Noteon ED Provider Note [facility] EMERGENCY DEPT EMERGENCY DEPARTMENT ENCOUNTER Pt Name: Sia Olivera Birthdate 1985 Date of evaluation: 06/18/2021 Provider: Rolan Allen MD CHIEF COMPLAINT Chief Complaint Patient presents with ? Cough 31 week . Coughing for 1.5 days. Vomit 3x today. No blood in emesis. No dizzy/Light headed. No LOC/fall. ENT stuffy. No fever HISTORY OF PRESENT ILLNESS (Location/Symptom, Timing/Onset, Context/Setting, Quality, Duration, Modifying Factors, Severity) Note limiting factors. I wore a KN95 mask for the entirety of this encounter. Does this patient come from an ECF, SNF, Rehab, Long Term or other Congregate setting: No no no (If yes to above patient needs a Covid-19 test) HPI Sia Olivera is a 35 y.o. female who presents to the emergency department 31-week female developed has 2-day history of left ear pain with drainage nasal congestion cough and sore throat. Denies fever. No nausea vomiting diarrhea. She was tested for Covid 3 weeks ago which was negative. She has had no known exposure. She not get her vaccine. She has no diffuse myalgias. She had no abdominal pain vaginal bleeding or urinary symptoms Nursing Notes were reviewed. REVIEW OF SYSTEMS (2+ for level 4; 10+ for level 5) Review of Systems Constitutional: Negative for fatigue and fever. HENT: Positive for congestion, ear discharge, ear pain and sore throat. Negative for sinus pressure and trouble swallowing. Eyes: Negative for discharge and visual disturbance. Respiratory: Positive for cough. Negative for shortness of breath. Cardiovascular: Negative for chest pain and palpitations. Gastrointestinal: Negative for abdominal pain, nausea and vomiting. Genitourinary: Negative for dysuria and hematuria. Musculoskeletal: Negative for back pain and neck pain. Skin: Negative for rash and wound. Neurological: Negative for speech difficulty, weakness and numbness. Psychiatric/Behavioral: Negative for behavioral problems and confusion. PAST MEDICAL HISTORY Past Medical History: Diagnosis Date ? ADHD ? Anxiety ? Depression ? Herpes ? Migraines SURGICAL HISTORY No past surgical history on file. CURRENT MEDICATIONS Previous Medications FAMOTIDINE (PEPCID) 20 MG TABLET Take 1 tablet by mouth 2 times daily GABAPENTIN (NEURONTIN) 300 MG CAPSULE Take 1 capsule by mouth 3 times daily for 30 days. TRAZODONE (DESYREL) 50 MG TABLET Take 1 tablet by mouth nightly as needed for Sleep VENLAFAXINE (EFFEXOR XR) 150 MG EXTENDED RELEASE CAPSULE Take 1 capsule by mouth daily ALLERGIES Amoxicillin FAMILY HISTORY No family history on file. SOCIAL HISTORY Social History Socioeconomic History ? Marital status: Spouse name: Not on file ? Number of children: Not on file ? Years of education: Not on file ? Highest education level: Not on file Occupational History ? Not on file Tobacco Use ? Smoking status: Former Smoker Packs/day: 0.50 Types: Cigarettes ? Smokeless tobacco: Never Used Substance and Sexual Activity ? Alcohol use: No ? Drug use: Not Currently Types: Marijuana, Methamphetamines ? Sexual activity: Not on file Other Topics Concern ? Not on file Social History Narrative ? Not on file Social Determinants of Health Financial Resource Strain: ? Difficulty of Paying Living Expenses: Food Insecurity: ? Worried About Running Out of Food in the Last Year: ? Ran Out of Food in the Last Year: Transportation Needs: ? Lack of Transportation (Medical): ? Lack of Transportation (Non-Medical): Physical Activity: ? Days of Exercise per Week: ? Minutes of Exercise per Session: Stress: ? Feeling of Stress : Social Connections: ? Frequency of Communication with Friends and Family: ? Frequency of Social Gatherings with Friends and Family: ? Attends Orthodox Services: ? Active Member of Clubs or Organizations: ? Attends Club or Organization Meetings: ? Marital Status: Intimate Partner Violence: ? Fear of Current or Ex-Partner: ? Emotionally Abused: ? Physically Abused: ? Sexually Abused: SCREENINGS PHYSICAL EXAM (up to 7 for level 4, 8 or more for level 5) ED Triage Vitals BP Temp Temp Source Pulse Resp SpO2 Height Weight 06/18/21 23206/18/21 23206/18/21 23206/18/21 23206/18/21 23206/18/21 23206/19/21 0010 06/19/21 0010 134/71 97.2 ?F (36.2 ?C) Temporal 97 20 96 % 5' 4 (1.626 m) 230 lb (104.3 kg) Physical Exam Vitals and nursing note reviewed. Constitutional: General: She is not in acute distress. Appearance: She is well-developed. HENT: Head: Normocephalic and atraumatic. Right Ear: Tympanic membrane and ear canal normal. Ears: Comments: Left canal is markedly erythematous and the tympanic membrane is erythematous and full Nose: Nose normal. Mouth/Throat: Mouth: Mucous membranes are dry. Pharynx: Posterior oropharyngeal erythema prese (more content not included)... Normal [facility] CULTURE URINEon 12-25-2020 CULTURE URINE CULTURE URINE --> St atus: F Normal urogenital gregory present. Normal [facility] Comment on above: Performed By: #### C /UR ####[facility] [place], [place] ABO Rh Blood Typeon 12-25-19 21 ABO and Rh group Nom (Bld) ABO Group: O Rh, Gel: POS Normal [facility] Comment on above: Performed By: #### A TY ####[facility] Basic Metabolic Panelon 12-14 Calcium [Mass/Vol] 9.4 mg/dL Normal 8.4-10.4 [facility] Comment on above: Performed By: #### B MP3, QWNT4, TROPN, LIPA4, HEMDF, LFT3 #### [facility] [address] [place], [place] Glucose [Mass/Vol] 87 mg/dL Normal 70-100 [facility] Comment on above: Performed By: #### B MP3, QWNT4, TROPN, LIPA4, HEMDF, LFT3 #### [facility] [address] [place], [place] Urea nitrogen [Mass/Vol] 13 mg/dL Normal 7-20 [facility] Comment on above: Performed By: #### B MP3, QWNT4, TROPN, LIPA4, HEMDF, LFT3 #### [facility] [address] [place], [place] Anion gap [Moles/Vol] 8 mmol/L Normal 3-13 [facility] Comment on above: Performed By: #### B MP3, QWNT4, TROPN, LIPA4, HEMDF, LFT3 #### [facility] [address] [place], [place] CO2 [Moles/Vol] 25 mmol/L Normal 22-30 [facility] Comment on above: Performed By: #### B MP3, QWNT4, TROPN, LIPA4, HEMDF, LFT3 #### [address] Creatinine [Mass/Vol] 0.62 mg/dL Normal 0.52-1.25 [facility] Comment on above: Performed By: #### B MP3, QWNT4, TROPN, LIPA4, HEMDF, LFT3 #### [address] eGFR OTHER > 90.0 Normal >60 [facility] Comment on above: Result Comment: KDIG O guidelines provide the following GFR categories: Stage GFR(ml/min/1.73 m2) Terms G1 >=90 Normal or high G2 60-89 Mildly decreased* G3a 45-59 Mildly to moderately decreased G3b 30-44 Moderately to severely decreased G4 15-29 Severely decreased G5 <15 Kidney failure *Relative to young adult level. In the absence of evidence of kidney damage, neither GFR category G1 nor G2 fulfill the criteria for CKD. The CKD-EPI equation is validated in individuals 18 years of age and older. Currently the best equation for estimating glomerular filtration rate (GFR) from serum creatinine in children is the Bedside Sauceda equation. It is less accurate in patients with extremes of muscle mass, restriction of dietary protein, ingestion of creatine, extra-renal metabolism of creatinine, or treatment with medications that affect renal tubular creatinine secretion. Performed By: #### B MP3, QWNT4, TROPN, LIPA4, HEMDF, LFT3 #### [address] GFR/1.73 sq M.predicted among blacks MDRD (S/P/Bld) [Vol rate/Area] mL/min/{1.73_m2} Normal >60 [facility] Comment on above: Performed By: #### B MP3, QWNT4, TROPN, LIPA4, HEMDF, LFT3 #### [address] Chloride [Moles/Vol] 105 mmol/L Normal 98-107 [facility] Comment on above: Performed By: #### B MP3, QWNT4, TROPN, LIPA4, HEMDF, LFT3 #### [facility] [address] [place], [place] Potassium [Moles/Vol] 3.9 mmol/L Normal 3.5-5.1 [facility] Comment on above: Performed By: #### B MP3, QWNT4, TROPN, LIPA4, HEMDF, LFT3 #### [facility] [address] [place], [place] Sodium [Moles/Vol] 138 mmol/L Normal 135-145 [facility] Comment on above: Performed By: #### B MP3, QWNT4, TROPN, LIPA4, HEMDF, LFT3 #### [facility] [address] [place], [place] Complete Urinalysison 2020 Appearance (U) Clear Normal Clear [facility] Comment on above: Result Comment: . Performed By: #### C UA2 ####[address] [address] [place], [place] Bacteria Moderate Abnormal Negative [facility] Comment on above: Result Comment: . Performed By: #### C UA2 ####[address] [place], [place] Bilirubin,Urine Negative Normal Negative [facility] Comment on above: Result Comment: . Performed By: #### C UA2 ####[address] [place], [place] Cast, Hyaline Negative Normal Negative [facility] Comment on above: Result Comment: . Performed By: #### C UA2 ####[address] [address] . [place], [place] Color (U) Light-Yellow Normal Lt. Yellow [facility] Comment on above: Result Comment: . Performed By: #### C UA2 ####[address] [place], [place] Glucose Ql (U) Normal Normal Normal (<70) [facility] Comment on above: Result Comment: . Performed By: #### C UA2 ####[address] . [place] [id number] Ketone,Urine Negative Normal Negative [facility] Comment on above: Result Comment: . Performed By: #### C UA2 ####[address] [address] [address] [place], [place] Leukocytes,Urine 250 [place]/uL Abnormal Negative [facility] Comment on above: Result Comment: . Performed By: #### C UA2 ####[address] [place], [place] Mucous Threads Few Normal Negative [facility] Comment on above: Result Comment: . Performed By: #### C UA2 ####[address] [address] [address] [place], [place] Nitrites,Urine Negative Normal Negative [facility] Comment on above: Result Comment: . Performed By: #### C UA2 ####[address] [place], [place] Occult Blood,Urine 0.2 mg/dL Abnormal Negative [facility] Comment on above: Result Comment: . Performed By: #### C UA2 ####[address] [place], [place] pH,Urine 6.0 Normal 5.0-8.0 [facility] Comment on above: Result Comment: . Performed By: #### C UA2 ####[address] [place], [place] RBC, Urine 0 - 2 Normal 0-2 [facility] Comment on above: Result Comment: . Performed By: #### C UA2 ####[address] [place], [place] Specific [place],Urine 1.014 Normal 1.005 - 1.030 [facility] Comment on above: Result Comment: . Performed By: #### C UA2 ####[address] [place], [place] Squamous Epithelial 6 - 10 Abnormal 3-5 [facility] Comment on above: Result Comment: . Performed By: #### C UA2 ####[address] Total Protein,Urine Negative Normal Negative [facility] Comment on above: Result Comment: . Performed By: #### C UA2 ####[address] [place], [place] Urobilinogen,Urine Normal Normal Normal (0-1) [facility] Comment on above: Result Comment: . Performed By: #### C UA2 ####[address] [place], [place] WBC, Urine 11 - 25 Abnormal 0-5 [facility] Comment on above: Result Comment: . Performed By: #### C UA2 ####[address] [place], [place] Hemogram w/ Autodiffon 12-24 Abs Baso Cnt 0.1 10*3/uL Normal 0.0-0.2 [facility] Comment on above: Performed By: #### B MP3, QWNT4, TROPN, LIPA4, HEMDF, LFT3 #### [address] [place] [address] [address] [place], [place] Abs Neutrophile Cnt 7.6 10*3/uL High 1.8-7.0 [facility] Comment on above: Performed By: #### B MP3, QWNT4, TROPN, LIPA4, HEMDF, LFT3 #### [address] [place] [address] [address] [place], [place] Basophils/100 WBC (Bld) 1.0 % Normal 0.0-2.0 [facility] Comment on above: Performed By: #### B MP3, QWNT4, TROPN, LIPA4, HEMDF, LFT3 #### [address] [address] [address] [place], [place] Eosinophils (Bld) [#/Vol] 0.2 10*3/uL Normal 0.0-0.5 [facility] Comment on above: Performed By: #### B MP3, QWNT4, TROPN, LIPA4, HEMDF, LFT3 #### [address] [address] [address] [place], [place] Eosinophils/100 WBC (Bld) 1.8 % Normal 1.0-6.0 [facility] Comment on above: Performed By: #### B MP3, QWNT4, TROPN, LIPA4, HEMDF, LFT3 #### [address] [address] [place], [place] Erythrocyte distribution width (RBC) [Ratio] 13.4 % Normal 11.5-14.5 [facility] Comment on above: Performed By: #### B MP3, QWNT4, TROPN, LIPA4, HEMDF, LFT3 #### [address] Granulocytes/100 WBC (Bld) 56.8 % Normal 40.0-80.0 [facility] Comment on above: Performed By: #### B MP3, QWNT4, TROPN, LIPA4, HEMDF, LFT3 #### [address] Hematocrit (Bld) [Volume fraction] 37.0 % Normal 35.0-47.0 [facility] Comment on above: Performed By: #### B MP3, QWNT4, TROPN, LIPA4, HEMDF, LFT3 #### [address] [address] [place], [place] Hemoglobin (Bld) [Mass/Vol] 12.3 g/dL Normal 11.7-16.0 [facility] Comment on above: Performed By: #### B MP3, QWNT4, TROPN, LIPA4, HEMDF, LFT3 #### [address] Lymphocytes (Bld) [#/Vol] 4.5 10*3/uL High 1.0-4.3 [facility] Comment on above: Performed By: #### B MP3, QWNT4, TROPN, LIPA4, HEMDF, LFT3 #### [address] Lymphocytes/100 WBC (Bld) 33.1 % Normal 20.0-40.0 [facility] Comment on above: Performed By: #### B MP3, QWNT4, TROPN, LIPA4, HEMDF, LFT3 #### [address] [address] [address] [place], [place] MCH (RBC) [Entitic mass] 31.1 pg Normal 26.0-34.0 [facility] Comment on above: Performed By: #### B MP3, QWNT4, TROPN, LIPA4, HEMDF, LFT3 #### [address] [address] [place], [place] MCHC 33.2 % Normal 32.0-36.0 [facility] Comment on above: Performed By: #### B MP3, QWNT4, TROPN, LIPA4, HEMDF, LFT3 #### [address] MCV (RBC) [Entitic vol] 93.4 fL Normal 79.0-98.0 [facility] Comment on above: Performed By: #### B MP3, QWNT4, TROPN, LIPA4, HEMDF, LFT3 #### [address] Monocytes (Bld) [#/Vol] 1.0 10*3/uL High 0.0-0.8 [facility] Comment on above: Performed By: #### B MP3, QWNT4, TROPN, LIPA4, HEMDF, LFT3 #### [address] Monocytes/100 WBC (Bld) 7.3 % Normal 2.0-10.0 [facility] Comment on above: Performed By: #### B MP3, QWNT4, TROPN, LIPA4, HEMDF, LFT3 #### [address] Platelet mean volume (Bld) [Entitic vol] 7.5 fL Normal 7.4-10.4 [facility] Comment on above: Performed By: #### B MP3, QWNT4, TROPN, LIPA4, HEMDF, LFT3 #### [address] Platelets (Bld) [#/Vol] 349 10*3/uL Normal 140-440 [facility] Comment on above: Performed By: #### B MP3, QWNT4, TROPN, LIPA4, HEMDF, LFT3 #### [facility] [address] [place], [place] RBC (Bld) [#/Vol] 3.96 10*6/uL Normal 3.80-5.20 [facility] Comment on above: Performed By: #### B MP3, QWNT4, TROPN, LIPA4, HEMDF, LFT3 #### [address] [address] [place], [place] WBC (Bld) [#/Vol] 13.4 10*3/uL High 3.6-10.7 [facility] Comment on above: Performed By: #### B MP3, QWNT4, TROPN, LIPA4, HEMDF, LFT3 #### [address] [address] [address] [place], [place] Hepatic Functionon 1 ALP [Catalytic activity/Vol] 64 U/L Normal 38-126 [facility] Comment on above: Performed By: #### B MP3, QWNT4, TROPN, LIPA4, HEMDF, LFT3 #### [address] [address] [place], [place] ALT [Catalytic activity/Vol] 20 U/L Normal 0-34 [facility] Comment on above: Result Comment: The ALT test is performed by an updated assay method. Please note that the reference intervals have been changed and are now sex specific. Performed By: #### B MP3, QWNT4, TROPN, LIPA4, HEMDF, LFT3 #### [address] [address] [address] [place], [place] AST [Catalytic activity/Vol] 27 U/L Normal 15-46 [facility] Comment on above: Performed By: #### B MP3, QWNT4, TROPN, LIPA4, HEMDF, LFT3 #### [address] [address] [place], [place] Bilirubin [Mass/Vol] 0.3 mg/dL Normal 0.2-1.3 [facility] Comment on above: Performed By: #### B MP3, QWNT4, TROPN, LIPA4, HEMDF, LFT3 #### [address] [address] [place], [place] Bilirubin.indirect [Mass/Vol] 0.0 mg/dL Normal 0.0-0.3 [facility] Comment on above: Performed By: #### B MP3, QWNT4, TROPN, LIPA4, HEMDF, LFT3 #### [address] [address] [place], [place] Protein [Mass/Vol] 7.4 g/dL Normal 6.3-8.2 [facility] Comment on above: Performed By: #### B MP3, QWNT4, TROPN, LIPA4, HEMDF, LFT3 #### [address] [address] [place], [place] Albumin [Mass/Vol] 4.4 g/dL Normal 3.5-5.0 [facility] Comment on above: Performed By: #### B MP3, QWNT4, TROPN, LIPA4, HEMDF, LFT3 #### [address] Lipaseon 12-24-2020 Lipase [Catalytic activity/Vol] 110 U/L Normal 23-300 [facility] Comment on above: Performed By: #### B MP3, QWNT4, TROPN, LIPA4, HEMDF, LFT3 #### [address] Troponin Ion 12-24-2020 Troponin I.cardiac [Mass/Vol] ng/mL Normal 0.000-0.034 [facility] Comment on above: Result Comment: . Performed By: #### B MP3, QWNT4, TROPN, LIPA4, HEMDF, LFT3 #### [address] Troponin x1on 12-24-2020 Troponin I.cardiac [Mass/Vol] ng/mL 0.000 - 0.034 ng/mL [facility] Work Phone: Comment on above: . Test Performed by [facility], [address] [place] [id number] [facility] Work Phone: US ABDOMEN LIMITEDon [address], [facility] Incoming Radiology Results From [facility] - 12/24/2020 12:55 AM EDT Patient Name: SIA OLIVERA Ultrasound ACCESSION EXAM DATE/TIME PROCEDURE ORDERING PROVIDER [id number] 12/24/2020 00:13 EDT US Abdomen Limited MD MILES [facility]OTT [facility] CPT code 50501 Reason For Exam (US Abdomen Limited) RUQ Pain Report CLINICAL INFORMATION: Right upper quadrant pain, Sonogram of the right upper quadrant is performed. The liver is fatty in echotexture. No hyper or hypo echoic masses are seen. There is no intrahepatic biliary ductal dilatation. The gallbladder shows multiple gallstones without definite significant wall thickening, or pericholecystic fluid collections. The common bile duct diameter of 3.7 mm is within normal limits. The pancreas is homogenous in echo texture, partially obscured by bowel gas. No obvious pancreatic mass or peripancreatic fluid collection is identified. Cursory examination of the right kidney is performed. The right renal length is 11.2 cm. There is no hydronephrosis. There is no ascites in the right upper quadrant. IMPRESSION: US RUQ 1. Cholelithiasis with top normal gallbladder wall thickness for degree of distention Ultrasound examination of the uterus was performed. Transvaginal images were performed. Ultrasound examination demonstrates a single live intrauterine , with positive heart motion at a heart rate of 147 beats per minute. Composite gestational age by US: 5weeks. 6 d. IMPRESSION: US 1. Single live intrauterine , with a gestational age by ultrasound of 5 weeks. 6 d. Ultrasound Report Report Dictated on Workstation: [id number] --- Final --- Dictated: 12/24/2020 0:51 am Dictating Physician: MD MAHONEY WILLIAM Signed Date and Time: 12/24/2020 0:54 am Signed by: MD MAHONEY WILLIAM Transcribed Date and Time: 12/24/2020 0:51 [facility] Work Phone: Patient Name: SIA AQUINO Ultrasound ACCESSION EXAM DATE/TIME PROCEDURE ORDERING PROVIDER [id number] 12/24/2020 00:13 EDT US Abdomen Limited MD MILES SCOTT ALAN CPT code 71411 Reason For Exam (US Abdomen Limited) RUQ Pain Report CLINICAL INFORMATION: Right upper quadrant pain, Sonogram of the right upper quadrant is performed. The liver is fatty in echotexture. No hyper or hypo echoic masses are seen. There is no intrahepatic biliary ductal dilatation. The gallbladder shows multiple gallstones without definite significant wall thickening, or pericholecystic fluid collections. The common bile duct diameter of 3.7 mm is within normal limits. The pancreas is homogenous in echo texture, partially obscured by bowel gas. No obvious pancreatic mass or peripancreatic fluid collection is identified. Cursory examination of the right kidney is performed. The right renal length is 11.2 cm. There is no hydronephrosis. There is no ascites in the right upper quadrant. IMPRESSION: US RUQ 1. Cholelithiasis with top normal gallbladder wall thickness for degree of distention Ultrasound examination of the uterus was performed. Transvaginal images were performed. Ultrasound examination demonstrates a single live intrauterine , with positive heart motion at a heart rate of 147 beats per minute. Composite gestational age by US: 5weeks. 6 d. IMPRESSION: US 1. Single live intrauterine , with a gestational age by ultrasound of 5 weeks. 6 d. Ultrasound Report Report Dictated on Workstation: [id number] --- Final --- Dictated: 12/24/2020 0:51 am Dictating Physician: MD MAHONEY WILLIAM Signed Date and Time: 12/24/2020 0:54 am Signed by: MD MAHONEY WILLIAM Transcribed Date and Time: 12/24/2020 0:51 [facility] Work Phone: US Abdomen Limitedon US Abdomen Limited Patient Name: SIA AQUINO Ultrasound ACCESSION EXAM DATE/TIME PROCEDURE ORDERING PROVIDER [id number] 12/24/2020 00:13 EDT US Abdomen Limited MD MILES SCOTT ALAN CPT code 27595 Reason For Exam (US Abdomen Limited) RUQ Pain Report CLINICAL INFORMATION: Right upper quadrant pain, Sonogram of the right upper quadrant is performed. The liver is fatty in echotexture. No hyper or hypo echoic masses are seen. There is no intrahepatic biliary ductal dilatation. The gallbladder shows multiple gallstones without definite significant wall thickening, or pericholecystic fluid collections. The common bile duct diameter of 3.7 mm is within normal limits. The pancreas is homogenous in echo texture, partially obscured by bowel gas. No obvious pancreatic mass or peripancreatic fluid collection is identified. Cursory examination of the right kidney is performed. The right renal length is 11.2 cm. There is no hydronephrosis. There is no ascites in the right upper quadrant. IMPRESSION: US RUQ 1. Cholelithiasis with top normal gallbladder wall thickness for degree of distention Ultrasound examination of the uterus was performed. Transvaginal images were performed. Ultrasound examination demonstrates a single live intrauterine , with positive heart motion at a heart rate of 147 beats per minute. Composite gestational age by US: 5weeks. 6 d. IMPRESSION: US 1. Single live intrauterine , with a gestational age by ultrasound of 5 weeks. 6 d. Ultrasound Report Report Dictated on Workstation: [id number] Final Dictated: 12/24/2020 0:51 am Dictating Physician: MD MAHONEY WILLIAM Signed Date and Time: 12/24/2020 0:54 am Signed by: MD MAHONEY WILLIAM Transcribed Date and Time: 12/24/2020 0:51 Normal [facility] US OB TRANSVAGINALon 021 [id number] ACCESSION EXAM DATE/TIME PROCEDURE ORDERING PROVIDER [id number] 12/24/2020 00:08 EDT US [id number] -RYENALDO MANDEL Transvaginal CPT code 59884 Reason For Exam (US Transvaginal) , abdominal pain Report CLINICAL INFORMATION: Right upper quadrant pain, Sonogram of the right upper quadrant is performed. The liver is fatty in echotexture. No hyper or hypo echoic masses are seen. There is no intrahepatic biliary ductal dilatation. The gallbladder shows multiple gallstones without definite significant wall thickening, or pericholecystic fluid collections. The common bile duct diameter of 3.7 mm is within normal limits. The pancreas is homogenous in echo texture, partially obscured by bowel gas. No obvious pancreatic mass or peripancreatic fluid collection is identified. Cursory examination of the right kidney is performed. The right renal length is 11.2 cm. There is no hydronephrosis. There is no ascites in the right upper quadrant. IMPRESSION: US RUQ 1. Cholelithiasis with top normal gallbladder wall thickness for degree of distention Ultrasound examination of the uterus was performed. Transvaginal images were performed. Ultrasound examination demonstrates a single live intrauterine , with positive heart motion at a heart rate of 147 beats per minute. Composite gestational age by US: 5weeks. 6 d. IMPRESSION: US 1. Single live intrauterine , with a gestational age by Ultrasound Report ultrasound of 5 weeks. 6 d. Report Dictated on Workstation: [id number] --- Final --- Dictated: 12/24/2020 0:51 am Dictating Physician: MD MAHONEY WILLIAM Signed Date and Time: 12/24/2020 0:54 am Signed by: MD MAHONEY WILLIAM Transcribed Date and Time: 12/24/2020 0:51 [facility] Work Phone: [place], [facility] Incoming Radiology Results From [facility] - 12/24/2020 12:55 AM EDT Patient Name: SIA OLIVERA Ultrasound ACCESSION EXAM DATE/TIME PROCEDURE ORDERING PROVIDER [id number] 12/24/2020 00:08 EDT US [id number] -REYNALDO MANDEL Transvaginal CPT code 30422 Reason For Exam (US Transvaginal) , abdominal pain Report CLINICAL INFORMATION: Right upper quadrant pain, Sonogram of the right upper quadrant is performed. The liver is fatty in echotexture. No hyper or hypo echoic masses are seen. There is no intrahepatic biliary ductal dilatation. The gallbladder shows multiple gallstones without definite significant wall thickening, or pericholecystic fluid collections. The common bile duct diameter of 3.7 mm is within normal limits. The pancreas is homogenous in echo texture, partially obscured by bowel gas. No obvious pancreatic mass or peripancreatic fluid collection is identified. Cursory examination of the right kidney is performed. The right renal length is 11.2 cm. There is no hydronephrosis. There is no ascites in the right upper quadrant. IMPRESSION: US RUQ 1. Cholelithiasis with top normal gallbladder wall thickness for degree of distention Ultrasound examination of the uterus was performed. Transvaginal images were performed. Ultrasound examination demonstrates a single live intrauterine , with positive heart motion at a heart rate of 147 beats per minute. Composite gestational age by US: 5weeks. 6 d. IMPRESSION: US 1. Single live intrauterine , with a gestational age by Ultrasound Report ultrasound of 5 weeks. 6 d. Report Dictated on Workstation: [id number] --- Final --- Dictated: 12/24/2020 0:51 am Dictating Physician: MD MAHONEY WILLIAM Signed Date and Time: 12/24/2020 0:54 am Signed by: MD MAHONEY WILLIAM Transcribed Date and Time: 12/24/2020 0:51 [facility] Work Phone: US Transvaginalon 12-24-2020 US Transvaginal Patient Name: SIA OLIVERA Ultrasound ACCESSION EXAM DATE/TIME PROCEDURE ORDERING PROVIDER [id number] 12/24/2020 00:08 EDT US [id number] -REYNALDO MANDEL Transvaginal CPT code 45401 Reason For Exam (US Transvaginal) , abdominal pain Report CLINICAL INFORMATION: Right upper quadrant pain, Sonogram of the right upper quadrant is performed. The liver is fatty in echotexture. No hyper or hypo echoic masses are seen. There is no intrahepatic biliary ductal dilatation. The gallbladder shows multiple gallstones without definite significant wall thickening, or pericholecystic fluid collections. The common bile duct diameter of 3.7 mm is within normal limits. The pancreas is homogenous in echo texture, partially obscured by bowel gas. No obvious pancreatic mass or peripancreatic fluid collection is identified. Cursory examination of the right kidney is performed. The right renal length is 11.2 cm. There is no hydronephrosis. There is no ascites in the right upper quadrant. IMPRESSION: US RUQ 1. Cholelithiasis with top normal gallbladder wall thickness for degree of distention Ultrasound examination of the uterus was performed. Transvaginal images were performed. Ultrasound examination demonstrates a single live intrauterine , with positive heart motion at a heart rate of 147 beats per minute. Composite gestational age by US: 5weeks. 6 d. IMPRESSION: US 1. Single live intrauterine , with a gestational age by Ultrasound Report ultrasound of 5 weeks. 6 d. Report Dictated on Workstation: [id number] Final Dictated: 12/24/2020 0:51 am Dictating Physician: MD MAHONEY WILLIAM Signed Date and Time: 12/24/2020 0:54 am Signed by: MD MAHONEY WILLIAM Transcribed Date and Time: 12/24/2020 0:51 Normal [facility] hCG Quantitativeon 1 hCG Quantitative 8098 m[IU]/mL [facility] Comment on above: Result Comment: Fema les < 5 Values in should double every 2 to 3 days for the first 6 weeks.Elevated concentrations of human chorionic gonadotropin (hCG) measured in the first trimester of are observed in normal , but may serve as an indication of chorionic carcinoma, hydatiform mole, or multiple .Decreasing hCG concentrations indicate threatened or missed , recent termination of , ectopic , gestosis or intrauterine . Sidra- and postmenopausal females may have detectable hCG concentrations (< or = to 14 mIU/mL) due to pituitary production of hCG. Serum follicle-stimulating hormone measurement may aid in ruling-out in this population. Cutoffs of greater than 20 to 45 mIU/mL have been suggested and are method dependent. False-elevations (called phantom human chorionic gonadotropin: hCG) may occur with patients who have human antianimal or heterophilic antibodies. Some specimens may not dilute linearly due to abnormal forms of hCG. Elevated hCG concentrations not associated with are found in patients with other diseases such as tumors of the germ cells, ovaries, bladder, pancreas, stomach, lungs, and liver. This test is not intended to detect or monitor tumors or gestational trophoblastic disease. Performed By: #### B MP3, QWNT4, TROPN, LIPA4, HEMDF, LFT3 #### [facility] [address] [id number] ABO/RHon 12-23-2020 Sodium [Moles/Vol] O [facility] Work Phone: Sodium [Moles/Vol] Positive [facility] Work Phone: Test Performed by [facility], [facility] [place] [address] [facility] Work Phone: Basic Metabolic Panelon 12-14 Anion gap [Moles/Vol] 8 mmol/L 3 - 13 mmol/L [facility] Work Phone: Calcium [Mass/Vol] 9.4 mg/dL 8.4 - 10. 4 mg/dL [facility] Work Phone: Chloride [Moles/Vol] 105 mmol/L 98 - 10 7 mmol/L [facility] Work Phone: CO2 [Moles/Vol] 25 mmol/L 22 - 30 mmol/L [facility] Work Phone: Creatinine [Mass/Vol] 0.62 mg/dL 0.52 - 1.25 mg/dL [facility] Work Phone: EGFR IF NonAfrican Estonian >90.0 >60 mL/min [facility] Work Phone: Comment on above: KDIGO guidelines pro vide the following GFR categories: Stage GFR(ml/min/1.73 m2) Terms G1 >=90 Normal or high G2 60-89 Mildly decreased* G3a 45-59 Mildly to moderately decreased G3b 30-44 Moderately to severely decreased G4 15-29 Severely decreased G5 <15 Kidney failure *Relative to young adult level. In the absence of evidence of kidney damage, neither GFR category G1 nor G2 fulfill the criteria for CKD. The CKD-EPI equation is validated in individuals 18 years of age and older. Currently the best equation for estimating glomerular filtration rate (GFR) from serum creatinine in children is the Bedside Sauceda equation. It is less accurate in patients with extremes of muscle mass, restriction of dietary protein, ingestion of creatine, extra-renal metabolism of creatinine, or treatment with medications that affect renal tubular creatinine secretion. GFR/1.73 sq M predicted among blacks MDRD (S/P/Bld) [Vol rate/Area] mL/min/{1.73_m2} >60 mL/min [facility] Work Phone: Glucose [Mass/Vol] 87 mg/dL 70 - 100 mg/dL [facility] Work Phone: Potassium [Moles/Vol] 3.9 mmol/L 3.5 - 5.1 mmol/L [facility] Work Phone: Sodium [Moles/Vol] 138 mmol/L 135 - 145 mmol/L [facility] Work Phone: Urea nitrogen (BldV) [Mass/Vol] 13 mg/dL 7 - 20 mg/dL [facility] Work Phone: ED Provider Noteon 1 ED Provider Note Emergency Department Encounter [facility] EMERGENCY DEPT Patient: Sia Olivera : 1985 Date of Evaluation: 12/23/2020 ED Supervising Physician: Kenny Miles MD I independently examined and evaluated Sia Olivera. I wore a N95 mask, gloves, and goggles for the entirety of this encounter. In brief, Sia Olivera is a 35 y.o. female that presents to the emergency department chief complaint of abdominal pain. She reports upper, right upper quadrant abdominal pain denies chest pain or shortness of breath. Reportedly about 8 weeks . Denies any vaginal bleeding. Focused exam: 35-year-old obese adult female afebrile. Regular rate and rhythm. Normal work of breathing. Lungs clear to auscultation. Abdomen soft. Reports mild right upper quadrant, epigastric abdominal tenderness. Negative Arana's. No CVA tenderness. No lower abdominal tenderness. No rebound. Brief ED course/MDM: Right upper quadrant ultrasound demonstrates cholelithiasis but is negative for acute cholecystitis. She has normal hepatic function. Obstetrical ultrasound demonstrates a single live intrauterine . Treated for bacteruria in . Sinus rhythm with a ventricular rate of 71 beats per him. WA, QRS, QTc within normal is. Normal axis. No acute ischemic ST or T wave changes. Compared to prior from May 2019. All diagnostic, treatment, and disposition decisions were made by myself in conjunction with the [facility]. For all further details of the patient's emergency department visit, please see their documentation. (Please note that portions of this note may have been completed with a voice recognition program. Efforts were made to edit the dictations but occasionally words are mis-transcribed.) Kenny Miles MD [employer] Kenny Miles MD 12/25/20 1250 Kenny Miles MD 12/25/20 1251 [facility] ED Provider Note [facility] EMERGENCY DEPT EMERGENCY DEPARTMENT ENCOUNTER Pt Name: Sia Olivera Birthdate 1985 Date of evaluation: 12/23/2020 Provider: Reynaldo Mandel, DO CHIEF COMPLAINT Chief Complaint Patient presents with ? Abdominal Pain Patient reports she is 8weeks and presents with abd pain; reports history of hernia; denies N/V, denies hematuria; denies vaginal bleeding HISTORY OF PRESENT ILLNESS (Location/Symptom, Timing/Onset, Context/Setting, Quality, Duration, Modifying Factors, Severity) Note limiting factors. I wore a n95 mask for the entirety of this encounter. Does this patient come from an ECF, SNF, Rehab, Long Term or other Congregate setting: no (If yes to above patient needs a Covid-19 test) HPI Sia Olivera is a 35 y.o. female who presents to the emergency department chief complaint of abdominal pain. Worsened with energy drinks. Patient says that she feels like she has heartburn. Patient denies any chest pain. No ripping or tearing sensation. Symptoms have no exertional component. No shortness of breath. Some abdominal cramping. No vaginal bleeding. Patient also reports that she is a G5, P4, previous . Last period was October 28. Has not had a ultrasound yet this . No lower abdominal cramping. Denies any fevers or chills. No urinary symptoms. Patient otherwise denies previous complications. Denies any lightheadedness or dizziness. Still having bowel movements. No previous abdominal surgery. Nursing Notes were reviewed. REVIEW OF SYSTEMS (2+ for level 4; 10+ for level 5) Review of Systems Constitutional: Negative for chills and fever. HENT: Negative for congestion. Respiratory: Negative for cough and shortness of breath. Cardiovascular: Negative for chest pain. Gastrointestinal: Positive for abdominal pain. Negative for diarrhea, nausea and vomiting. Genitourinary: Negative for dysuria. Musculoskeletal: Negative for arthralgias. Skin: Negative for rash. Neurological: Negative for dizziness, weakness and light-headedness. Psychiatric/Behavioral: The patient is not nervous/anxious. PAST MEDICAL HISTORY Past Medical History: Diagnosis Date ? ADHD ? Anxiety ? Depression ? Herpes ? Migraines SURGICAL HISTORY History reviewed. No pertinent surgical history. CURRENT MEDICATIONS Discharge Medication List as of 12/24/2020 1:10 AM CONTINUE these medications which have NOT CHANGED Details gabapentin (NEURONTIN) 300 MG capsule Take 1 capsule by mouth 3 times daily for 30 days., Disp-90 capsule, R-0Print traZODone (DESYREL) 50 MG tablet Take 1 tablet by mouth nightly as needed for Sleep, Disp-30 tablet, R-0Print venlafaxine (EFFEXOR XR) 150 MG extended release capsule Take 1 capsule by mouth daily, Disp-30 capsule, R-0Print ALLERGIES Amoxicillin FAMILY HISTORY History reviewed. No pertinent family history. SOCIAL HISTORY Social History Socioeconomic History ? Marital status: Spouse name: None ? Number of children: None ? Years of education: None ? Highest education level: None Occupational History ? None Social Needs ? Financial resource strain: None ? Food insecurity Worry: None Inability: None ? Transportation needs Medical: None Non-medical: None Tobacco Use ? Smoking status: Former Smoker Packs/day: 0.50 Types: Cigarettes ? Smokeless tobacco: Never Used Substance and Sexual Activity ? Alcohol use: No ? Drug use: Not Currently Types: Marijuana, Methamphetamines ? Sexual activity: None Lifestyle ? Physical activity Days per week: None Minutes per session: None ? Stress: None Relationships ? Social connections Talks on phone: None Gets together: None Attends gnosticist service: None Active member of club or organization: None Attends meetings of clubs or organizations: None Relationship status: None ? Intimate partner violence Fear of current or ex partner: None Emotionally abused: None Physically abused: None Forced sexual activity: None Other Topics Concern ? None Social History Narrative ? None SCREENINGS PHYSICAL EXAM (up to 7 for level 4, 8 or more for level 5) ED Triage Vitals BP Temp Temp Source Pulse Resp SpO2 Height Weight 12/23/20 2140 12/23/20 2140 12/23/20213912/23/20213912/23/20213912/23/20213912/23/20213812/23/202139 129/78 99.2 ?F (37.3 ?C) Temporal 78 16 99 % 5' 4 (1.626 m) 210 lb (95.3 kg) Physical Exam Vitals signs and nursing note reviewed. Constitutional: General: She is not in acute distress. Appearance: She is well-developed. She is obese. She is not ill-appearing or toxic-appearing. Cardiovascular: Rate and Rhythm: Normal rate and regular rhythm. Heart sounds: Normal heart sounds. Pulmonary: Effort: Pulmonary effort is normal. Breath sounds: Normal breath sounds. Abdominal: Palpations: Abdomen is soft. Tenderness: There is abdominal t (more content not included)... Normal [employer] HCG, QUANTITATIVE, on 12-23-2020 hCG Quant 8098 m[IU]/mL Abnormal [employer] Work Phone: Comment on above: Females < 5 Values in should double every 2 to 3 days for the first 6 weeks.Elevated concentrations of human chorionic gonadotropin (hCG) measured in the first trimester of are observed in normal , but may serve as an indication of chorionic carcinoma, hydatiform mole, or multiple .Decreasing hCG concentrations indicate threatened or missed , recent termination of , ectopic , gestosis or intrauterine . Sidra- and postmenopausal females may have detectable hCG concentrations (< or = to 14 mIU/mL) due to pituitary production of hCG. Serum follicle-stimulating hormone measurement may aid in ruling-out in this population. Cutoffs of greater than 20 to 45 mIU/mL have been suggested and are method dependent. False-elevations (called phantom human chorionic gonadotropin: hCG) may occur with patients who have human antianimal or heterophilic antibodies. Some specimens may not dilute linearly due to abnormal forms of hCG. Elevated hCG concentrations not associated with are found in patients with other diseases such as tumors of the germ cells, ovaries, bladder, pancreas, stomach, lungs, and liver. This test is not intended to detect or monitor tumors or gestational trophoblastic disease. Interpretation and review of laboratory results Abnormal [facility] Work Phone: 1() 222 Test Performed by [facility], [address] [place] [id number] [facility] Work Phone: ) Hemogram (CBC) w/Auto Diffon 12-23-2020 Absolute Baso # 0.1 10*3/uL 0.0 - 0.2 10*3/uL [facility] Work Phone: 1() 222 Absolute Neut # 7.6 10*3/uL High 1.8 - 7.0 10*3/uL [facility] Work Phone: 1) 222 Basophils/100 WBC (Bld) 1.0 % 0.0 - 2.0 % [facility] Work Phone: 222 Eosinophils (Bld) [#/Vol] 0.2 10*3/uL 0.0 - 0.5 10*3/uL [facility] Work Phone: 1) 222 Eosinophils/100 WBC (Bld) 1.8 % 1.0 - 6.0 % [facility] Work Phone: 222 Granulocytes/100 WBC (Bld) 56.8 % 40.0 - 80.0 % [facility] Work Phone: Hematocrit (Bld) [Volume fraction] 37.0 % 35.0 - 47.0 % [facility] Work Phone: ) 222 Hemoglobin.gastrointe stinal spec 1 Ql (Stl) 12.3 g/dL 11.7 - 16.0 g/dL [facility] Work Phone: ) 222 Interpretation and review of laboratory results Abnormal [employer] Work Phone: ) 222 Lymphocytes (Bld) [#/Vol] 4.5 10*3/uL High 1.0 - 4.3 10*3/uL [facility] Work Phone: 1) 222 Lymphocytes/100 WBC (Bld) 33.1 % 20.0 - 40.0 % [facility] Work Phone: 1() 222 MCH (RBC) [Entitic mass] 31.1 pg 26.0 - 34.0 pg [facility] Work Phone: 1) 222 MCHC (RBC) [Mass/Vol] 33.2 % 32.0 - 36.0 % [facility] Work Phone: 1( MCV (RBC) [Entitic vol] 93.4 fL 79.0 - 98.0 fL [facility] Work Phone: Monocytes (Bld) [#/Vol] 1.0 10*3/uL High 0.0 - 0.8 10*3/uL [facility] Work Phone: 222 Monocytes/100 WBC (Bld) 7.3 % 2.0 - 10.0 % [facility] Work Phone: Platelet distribution width (Bld) [Ratio] 13.4 % 11.5 - 14.5 % [facility] Work Phone: Platelet mean volume (Bld) [Entitic vol] 7.5 fL 7.4 - 10.4 fL [facility] Work Phone: Platelets (Bld) [#/Vol] 349 10*3/uL 140 - 440 10*3/uL [facility] Work Phone: RBC (Bld) [#/Vol] 3.96 10*6/uL 3.80 - 5.2 0 10*6/uL [facility] Work Phone: WBC (Bld) [#/Vol] 13.4 10*3/uL High 3.6 - 10.7 10*3/uL [facility] Work Phone: Test Performed by [facility], [address] [place] [id number] [facility] Work Phone: Hepatic Function Panelon Albumin [Mass/Vol] 4.4 g/dL 3.5 - 5.0 g/dL [employer] Work Phone: ALP (Bld) [Catalytic activity/Vol] 64 U/L 38 - 126 U/L [facility] Work Phone: ALT [Catalytic activity/Vol] 20 U/L 0 - 34 U/L [employer] Work Phone: Comment on above: The ALT test is perf ormed by an updated assay method. Please note that the reference intervals have been changed and are now sex specific. AST [Catalytic activity/Vol] 27 U/L 15 - 46 U/L [facility] Work Phone: 1 Bilirubin [Mass/Vol] 0.3 mg/dL 0.2 - 1 .3 mg/dL [facility] Work Phone: 1 Bilirubin.direct [Mass/Vol] 0.0 mg/dL 0.0 - 0.3 mg/dL [facility] Work Phone: 1 Free PSA/Prostate specific Ag.total [Mass fraction] 7.4 g/dL 6.3 - 8.2 g/dL [facility] Work Phone: [phone] Lipaseon 12-23-2020 Lipase [Catalytic activity/Vol] 110 U/L 23 - 300 U/L [facility] Work Phone: [phone] Otheron 12-23-2020 Test Performed by [facility], [address] [place] [id number] [facility] Work Phone: [phone] Urinalysison 12-23-2020 Appearance (U) Clear Clear NA [facility] Work Phone: [phone] Comment on above: . Bacteria, UA Moderate Abnormal Negative /[HPF] [facility] Work Phone: [phone] Comment on above: . Bilirubin Urine Negative Negative mg/dL [facility] Work Phone: [phone] Comment on above: . Color (U) Light-Yellow Lt. Yellow NA [facility] Work Phone: [phone] Comment on above: . Glucose, Ur Normal Normal (<70) mg/dL [facility] Work Phone: [phone] Comment on above: . Hyaline Casts, UA Negative Negative /[LPF] [facility] Work Phone: [phone] Comment on above: . Interpretation and review of laboratory results Abnormal [facility] Work Phone: [phone] Ql (U) Negative Negative mg/dL [facility] Work Phone: [phone] Comment on above: . LEUKOCYTES, UA 250 Abnormal Negative Brionna/uL [facility] Work Phone: [phone] Comment on above: . Mucous Threads Few Negative /[LPF] [facility] Work Phone: Comment on above: . Nitrite, Urine Negative Negative NA [facility] Work Phone: Comment on above: . Occult Blood,Urine 0.2 mg/dL Abnormal Negative [facility] Work Phone: Comment on above: . pH (U) 6.0 [pH] [facility] Work Phone: Comment on above: . Protein (U) [Mass/Vol] Negative Negative mg/dL [facility] Work Phone: Comment on above: . RBC (U) [#/Vol] 0-2 0 - 2 /[HPF] [facility] Work Phone: Comment on above: . Specific [place], Urine 1.014 [facility] Work Phone: Comment on above: . Squam Epithel, UA 6-10 Abnormal 3 - 5 /[HPF] [facility] Work Phone: Comment on above: . Urobilinogen, Urine Normal Normal ( 0-1) mg/dL [facility] Work Phone: Comment on above: . WBC, UA 11-25 Abnormal 0 - 5 /[HPF] [facility] Work Phone: Comment on above: . Test Performed by [facility], [address] [place] [id number] [facility] Work Phone: XR SHLDR >/=3V AP/NAZ AP/OTH R LTon 03-27-2020 XR SHLDR >/=3V AP/NAZ AP/OTHR LT Final Report DATE OF EXAM: Mar 27 2020 12:18AM AKX [id number] - XR SHLDR >/=3V AP/NAZ AP/OTHR LT / PROCEDURE REASON: Shoulder pain, traumatic Physician Interpretation EXAM: XR SHLDR >/=3V AP/NAZ AP/OTHR LT HISTORY: Shoulder pain, traumatic COMPARISON: None available FINDINGS: No fracture, traumatic malalignment, or significant degenerative change. IMPRESSION: Unremarkable left shoulder. Bench Assembly Inspector: CATHERINE Transcribe Date/Time: Mar 27 2020 12:23A Dictated by : ERIC FERNANDES MD This examination was interpreted and the report reviewed and electronically signed by: ERIC FERNANDES MD on Mar 27 2020 12:24AM EST Normal [facility] Metabolic Panelon 08-04-2019 Sodium [Moles/Vol] Negative [place] Sodium [Moles/Vol] [place] Comment on above: The following drugs or drug groups have been screened for by Immunoassay at the thresholds listed: Amphetamine class(1000 ng/mL), Barbiturates(300 ng/mL), Benzodiazepines(200 ng/mL),Cocaine(300 ng/mL), Ethanol(50 ng/dL),Opiates(300 ng/mL),Oxycodone(100 ng/mL), and THC(50 ng/mL) A more specific alternative method must be used to confirm preliminary positive results. NOTE: These results are for medical treatment only. Analysis performed using non-forensic procedures. Otheron 08-04-2019 Test Performed by [address] [address] [place], [place] Urinalysison 08-04-2019 Amphetamines Ql (U) Negative [facility] Benzodiazepines Ql (U) Negative [place] Cocaine Ql (U) Negative [facility] Opiates Ql (U) Negative [place] Buprenorphine Screenon 07-06 Buprenorphine Screen Negative Normal [facility] Comment on above: Result Comment: Bupr enorphine (Suboxone) has been screened for by immunoassay at 5 ng/mL threshold. The screening assay provides only a preliminary test result. A more specific alternative method must be used to confirm preliminary positive results. Performed By: #### I GN #### [address] [address] [place] [address] Fentanyl Screen, Urineon Fentanyl Screen, Urn Negative Normal Negative [facility] Comment on above: Result Comment: Fent anyl has been screened for by Immunoassay at a 2ng/ml threshold. POSITIVE results are not confirmed by a more specific alternative method unless requested. If confirmation is needed, request confirmation under separate order. NOTE: These results are for medical treatment only. Analysis performed using non-forensic procedures. Performed By: #### I GN #### [place] [address] [address] [facility] [facility] Screenon 2018 Amphetamines Ql (U) Negative [facility] Comment on above: Performed By: #### I GN #### [facility] [address] [facility] Barbiturates Negative [facility] Comment on above: Performed By: #### I GN #### [facility] [address] [facility] Benzodiazepines Ql (U) Negative [facility] Comment on above: Performed By: #### I GN #### [facility] [address] [facility] Cocaine Metabolites Negative [facility] Comment on above: Performed By: #### I GN #### [facility] [address] [facility] Comment [facility] Comment on above: Result Comment: The following drugs or drug groups have been screened for by Immunoassay at the thresholds listed: Amphetamine class(1000 ng/mL), Barbiturates(300 ng/mL), Benzodiazepines(200 ng/mL),Cocaine(300 ng/mL), Ethanol(50 ng/dL),Opiates(300 ng/mL),Oxycodone(100 ng/mL), and THC(50 ng/mL) A more specific alternative method must be used to confirm preliminary positive results. NOTE: These results are for medical treatment only. Analysis performed using non-forensic procedures. Performed By: #### I GN #### [facility] [address] [facility] Ethanol [Mass/Vol] Negative [facility] Comment on above: Performed By: #### I GN #### [facility] [address] [facility] Opiates Ql (U) Negative [facility] Comment on above: Performed By: #### I GN #### [facility] [address] [facility] Oxycodone Negative [facility] Comment on above: Performed By: #### I GN #### [facility] [address] [place] [address] THC Negative Normal [facility] Comment on above: Performed By: #### I GN #### [facility] [address] [place] [address] Metabolic Panelon 07-05-2019 Sodium [Moles/Vol] Negative [place] Comment on above: Buprenorphine (Subox one) has been screened for by immunoassay at 5 ng/mL threshold. The screening assay provides only a preliminary test result. A more specific alternative method must be used to confirm preliminary positive results. Sodium [Moles/Vol] [place] Comment on above: The following drugs or drug groups have been screened for by Immunoassay at the thresholds listed: Amphetamine class(1000 ng/mL), Barbiturates(300 ng/mL), Benzodiazepines(200 ng/mL),Cocaine(300 ng/mL), Ethanol(50 ng/dL),Opiates(300 ng/mL),Oxycodone(100 ng/mL), and THC(50 ng/mL) A more specific alternative method must be used to confirm preliminary positive results. NOTE: These results are for medical treatment only. Analysis performed using non-forensic procedures. Otheron 07-05-2019 Fentanyl Negative Negative NA [place] Comment on above: Fentanyl has been sc reened for by Immunoassay at a 2ng/ml threshold. POSITIVE results are not confirmed by a more specific alternative method unless requested. If confirmation is needed, request confirmation under separate order. NOTE: These results are for medical treatment only. Analysis performed using non-forensic procedures. Fentanyl has been sc reened for by Immunoassay at a 2ng/ml threshold. POSITIVE results are not confirmed by a more specific alternative method unless requested. If confirmation is needed, request confirmation under separate order. NOTE: These results are for medical treatment only. Analysis performed using non-forensic procedures. Test Performed by [facility], [address] [place] [address] [place] Test Performed by [facility], [address] [place] [address] [facility] Urinalysison 07-05-2019 Amphetamines Ql (U) Negative [place] Benzodiazepines Ql (U) Negative [facility] Cocaine Ql (U) Negative [facility] Opiates Ql (U) Negative [facility] Buprenorphine Screenon 06-29 Buprenorphine Screen Negative Normal [facility] Comment on above: Result Comment: Bupr enorphine (Suboxone) has been screened for by immunoassay at 5 ng/mL threshold. The screening assay provides only a preliminary test result. A more specific alternative method must be used to confirm preliminary positive results. Performed By: #### I GN, FENTU, BUPR #### [facility] [address] [place] [address] Fentanyl Screen, Urineon Fentanyl Screen, Urn Negative Normal Negative [facility] Comment on above: Result Comment: Fent anyl has been screened for by Immunoassay at a 2ng/ml threshold. POSITIVE results are not confirmed by a more specific alternative method unless requested. If confirmation is needed, request confirmation under separate order. NOTE: These results are for medical treatment only. Analysis performed using non-forensic procedures. Performed By: #### I GN #### [facility] [address] [place] [address] Fentanyl, Urineon 06-28-2019 Fentanyl Negative Negative NA [place] Comment on above: Fentanyl has been sc reened for by Immunoassay at a 2ng/ml threshold. POSITIVE results are not confirmed by a more specific alternative method unless requested. If confirmation is needed, request confirmation under separate order. NOTE: These results are for medical treatment only. Analysis performed using non-forensic procedures. [place] [facility] Screenon 2018 Amphetamines Ql (U) Negative [facility] Benzodiazepines Ql (U) Negative [place] Cocaine Ql (U) Negative [place] Opiates Ql (U) Negative [place] Sodium [Moles/Vol] [place] Comment on above: The following drugs or drug groups have been screened for by Immunoassay at the thresholds listed: Amphetamine class(1000 ng/mL), Barbiturates(300 ng/mL), Benzodiazepines(200 ng/mL),Cocaine(300 ng/mL), Ethanol(50 ng/dL),Opiates(300 ng/mL),Oxycodone(100 ng/mL), and THC(50 ng/mL) A more specific alternative method must be used to confirm preliminary positive results. NOTE: These results are for medical treatment only. Analysis performed using non-forensic procedures. Amphetamines Ql (U) Negative [facility] Comment on above: Performed By: #### I GN, FENTU, BUPR #### [facility] [address] [place], [place] Barbiturates Negative [facility] Comment on above: Performed By: #### I GN, FENTU, BUPR #### [facility] [address] [place], [place] Benzodiazepines Ql (U) Negative [facility] Comment on above: Performed By: #### I GN, FENTU, BUPR #### [address] [address] [address] [place], [place] Cocaine Metabolites Negative [facility] Comment on above: Performed By: #### I MICHAEL FENTU, BUPR #### [address] [address] [address] [place], [place] Comment [facility] Comment on above: Result Comment: The following drugs or drug groups have been screened for by Immunoassay at the thresholds listed: Amphetamine class(1000 ng/mL), Barbiturates(300 ng/mL), Benzodiazepines(200 ng/mL),Cocaine(300 ng/mL), Ethanol(50 ng/dL),Opiates(300 ng/mL),Oxycodone(100 ng/mL), and THC(50 ng/mL) A more specific alternative method must be used to confirm preliminary positive results. NOTE: These results are for medical treatment only. Analysis performed using non-forensic procedures. Performed By: #### I GN, FENTU, BUPR #### [address] [address] [address] [place], [place] Ethanol [Mass/Vol] Negative [facility] Comment on above: Performed By: #### I GN, FENTU, BUPR #### [address] [address] [place], [place] Opiates Ql (U) Negative [facility] Comment on above: Performed By: #### I ANTHONY RODRIGUEZ BUPR #### [address] [place], [place] Oxycodone Negative [facility] Comment on above: Performed By: #### I SHAW RODRIGUEZU, BUPR #### [address] [address] [address] [place], [place] THC Negative [facility] Comment on above: Performed By: #### I ANTHONY RODRIGUEZ BUPR #### [address] [address] [address] [place], [place] Metabolic Panelon 06-28-2019 Sodium [Moles/Vol] Negative [place] Comment on above: Buprenorphine (Subox one) has been screened for by immunoassay at 5 ng/mL threshold. The screening assay provides only a preliminary test result. A more specific alternative method must be used to confirm preliminary positive results. Otheron 06-28-2019 Test Performed by [facility], [facility] [place] [address] [place], [place] [facility] Screenon 2018 Amphetamines Ql (U) Negative [facility] Comment on above: Performed By: #### I GN #### [address] [address] [address] [place], [place] Barbiturates Negative [facility] Comment on above: Performed By: #### I GN #### [address] [address] [address] [place] Benzodiazepines Ql (U) Negative [facility] Comment on above: Performed By: #### I GN #### [address] [address] [place], [place] Cocaine Metabolites Negative [facility] Comment on above: Performed By: #### I GN #### [address] [place], [place] Comment [facility] Comment on above: Result Comment: The following drugs or drug groups have been screened for by Immunoassay at the thresholds listed: Amphetamine class(1000 ng/mL), Barbiturates(300 ng/mL), Benzodiazepines(200 ng/mL),Cocaine(300 ng/mL), Ethanol(50 ng/dL),Opiates(300 ng/mL),Oxycodone(100 ng/mL), and THC(50 ng/mL) A more specific alternative method must be used to confirm preliminary positive results. NOTE: These results are for medical treatment only. Analysis performed using non-forensic procedures. Performed By: #### I GN #### [facility] [address] [place], [place] Ethanol [Mass/Vol] Negative [facility] Comment on above: Performed By: #### I GN #### [facility] [address] [place], [place] Opiates Ql (U) Negative [facility] Comment on above: Performed By: #### I GN #### [address] [address] [address] [place], [place] Oxycodone Negative [facility] Comment on above: Performed By: #### I GN #### [facility] [address] [place], [place] THC Negative [facility] Comment on above: Performed By: #### I GN #### [address] [address] [place], [place] [facility] Screenon 2018 Amphetamines Ql (U) Negative [facility] Benzodiazepines Ql (U) Negative [facility] Cocaine Ql (U) Negative [facility] Opiates Ql (U) Negative [facility] Sodium [Moles/Vol] [facility] Comment on above: The following drugs or drug groups have been screened for by Immunoassay at the thresholds listed: Amphetamine class(1000 ng/mL), Barbiturates(300 ng/mL), Benzodiazepines(200 ng/mL),Cocaine(300 ng/mL), Ethanol(50 ng/dL),Opiates(300 ng/mL),Oxycodone(100 ng/mL), and THC(50 ng/mL) A more specific alternative method must be used to confirm preliminary positive results. NOTE: These results are for medical treatment only. Analysis performed using non-forensic procedures. Test Performed by [facility], [address] [place] [place] [address] [place] Amphetamines Ql (U) Negative [facility] Comment on above: Performed By: #### I GN #### [facility] [address] [facility] [place] Barbiturates Negative [facility] Comment on above: Performed By: #### I GN #### [facility] [address] [facility] Benzodiazepines Ql (U) Negative [facility] Comment on above: Performed By: #### I GN #### [facility] [address] [facility] Cocaine Metabolites Negative [facility] Comment on above: Performed By: #### I GN #### [facility] [address] [facility] Comment [facility] Comment on above: Result Comment: The following drugs or drug groups have been screened for by Immunoassay at the thresholds listed: Amphetamine class(1000 ng/mL), Barbiturates(300 ng/mL), Benzodiazepines(200 ng/mL),Cocaine(300 ng/mL), Ethanol(50 ng/dL),Opiates(300 ng/mL),Oxycodone(100 ng/mL), and THC(50 ng/mL) A more specific alternative method must be used to confirm preliminary positive results. NOTE: These results are for medical treatment only. Analysis performed using non-forensic procedures. Performed By: #### I GN #### [facility] [address] [facility] Ethanol [Mass/Vol] Negative [facility] Comment on above: Performed By: #### I GN #### [facility] [address] [facility] Opiates Ql (U) Negative [facility] Comment on above: Performed By: #### I GN #### [facility] [address] [facility] [place] Oxy[place]one Negative [facility] Comment on above: Performed By: #### I GN #### [facility] [address] [place], [place] THC Negative [facility] Comment on above: Performed By: #### I GN #### [facility] [address] [place], [place] Metabolic Panelon 06-16-2019 Sodium [Moles/Vol] Negative [facility] [place] Buprenorphine Screenon 06-08 Buprenorphine Screen Negative Normal [facility] Comment on above: Result Comment: Bupr enorphine (Suboxone) has been screened for by immunoassay at 5 ng/mL threshold. The screening assay provides only a preliminary test result. A more specific alternative method must be used to confirm preliminary positive results. Performed By: #### F ENTU, BUPR, IGN #### [address] [address] [address] [place], [place] Fentanyl Screen, Urineon Fentanyl Screen, Urn Negative Normal Negative [facility] Comment on above: Result Comment: Fent anyl has been screened for by Immunoassay at a 2ng/ml threshold. POSITIVE results are not confirmed by a more specific alternative method unless requested. If confirmation is needed, request confirmation under separate order. NOTE: These results are for medical treatment only. Analysis performed using non-forensic procedures. Performed By: #### F ENTU, BUPR, IGN #### [facility] [address] [place], [place] Drug Screenon 2018 Amphetamines Ql (U) Negative [facility] Comment on above: Performed By: #### F ENTU, BUPR, IGN #### [facility] [address] [place], [place] Barbiturates Negative [facility] Comment on above: Performed By: #### F ENTU, BUPR, IGN #### [address] [address] [address] [place], [place] Benzodiazepines Ql (U) Negative [facility] Comment on above: Performed By: #### F ENTU, BUPR, IGN #### [address] [address] [address] [place] Cocaine Metabolites Negative [facility] Comment on above: Performed By: #### F ENTU, BUPR, IGN #### [facility] [address] [place], [place] Comment Normal [facility] Comment on above: Result Comment: The following drugs or drug groups have been screened for by Immunoassay at the thresholds listed: Amphetamine class(1000 ng/mL), Barbiturates(300 ng/mL), Benzodiazepines(200 ng/mL),Cocaine(300 ng/mL), Ethanol(50 ng/dL),Opiates(300 ng/mL),Oxycodone(100 ng/mL), and THC(50 ng/mL) A more specific alternative method must be used to confirm preliminary positive results. NOTE: These results are for medical treatment only. Analysis performed using non-forensic procedures. Performed By: #### F ENTU, BUPR, IGN #### [address] [address] [address] [place], [place] Ethanol [Mass/Vol] Negative [facility] Comment on above: Performed By: #### F ENTU, BUPR, IGN #### [address] [address] [place] Opiates Ql (U) Negative [facility] Comment on above: Performed By: #### F ENTU, BUPR, IGN #### [address] [address] [address] [place], [place] Oxycodone Negative [facility] Comment on above: Performed By: #### F ENTU, BUPR, IGN #### [address] [address] [place] THC Negative [facility] Comment on above: Performed By: #### F ENTU, BUPR, IGN #### [address] [address] [address] [place], [place] [facility]acon 06-01-2019 Cholesterol [Mass/Vol] 195 mg/dL <200 [place] Cholesterol in HDL [Mass/Vol] 26 mg/dL Low 40 - 60 mg/dL [place] Cholesterol in LDL [Mass/Vol] 129 mg/dL Abnormal <100 [place] Triglyceride [Mass/Vol] 199 mg/dL Abnormal <150 [place] Metabolic Panelon 06-01-2019 HbA1c (Bld) [Mass fraction] 5.8 % High 4 - 5.7 % [place] Comment on above: --HgbA1C levels may not be accurate in patients who have renal disease, received recent blood transfusions, are anemic, or who have dyshemoglobinemia. Otheron 06-01-2019 eAG 120 mg/dL [place] Interpretation and review of laboratory results Abnormal [place] Test Performed by [place] [address] Test Performed by [place] [address] Cholesterol.total/Cho lesterol in HDL [Mass ratio] 8 {ratio} [place] Comment on above: Ref Range: < 3 Low Risk for CHD 3-6 Mod Risk for CHD > 6 High Risk for CHD Ref Range: < 3 Low Risk for CHD 3-6 Mod Risk for CHD > 6 High Risk for CHD Interpretation and review of laboratory results Abnormal [place] Test Performed by [facility], [facility] [address] 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1985 Requested By: Order Number: [id number] Reading MD: Rubio Gonzalez Measurements Intervals [place] Rate: 101 P: 72 WA: 160 QRS: 1 QRSD: 86 T: 29 QT: 353 QTc: 458 Interpretive Statements Sinus tachycardia Electronically Signed On 05-30-2019 17:49:59 EDT by Rubio Gonzalez [facility] Test Date: 2019-05-28 Pat Name: Sia Blake Department: 1AER Room: 36 Gender: F 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1985 Requested By: Order Number: [id number] Reading MD: Rubio Gonzalez Measurements Intervals [place] Rate: 101 P: 72 WA: 160 QRS: 1 QRSD: 86 T: 29 QT: 353 QTc: 458 Interpretive Statements Sinus tachycardia Electronically Signed On 05-30-2019 17:49:59 EDT by Rubio Gonzalez [place] Hematologyon 05-28-2019 Basophils/100 WBC (Bld) 0.8 % 0 - 2 % [place] Eosinophils (Bld) [#/Vol] 0.2 10*3/uL 0 - 0.5 10*3/uL [place] Eosinophils/100 WBC (Bld) 2.1 % 1 - 6 % [place] Hematocrit (Bld) [Volume fraction] 37.3 % 35 - 47 % [place] Hemoglobin (Bld) [Mass/Vol] 12.7 g/dL 11.7 - 16 g/dL [place] Lymphocytes (Bld) [#/Vol] 3.3 10*3/uL 1 - 4.3 10*3/uL [place] Lymphocytes/100 WBC (Bld) 31.8 % 20 - 40 % [place] MCH (RBC) [Entitic mass] 32.2 pg 26 - 34 pg [place] MCV (RBC) [Entitic vol] 94.7 fL 79 - 98 fL [place] Monocytes (Bld) [#/Vol] 1.2 10*3/uL High 0 - 0.8 10*3/uL [place] Monocytes/100 WBC (Bld) 11.6 % High 2 - 10 % [place] Platelets (Bld) [#/Vol] 359 10*3/uL 140 - 440 10*3/uL [place] RBC (Bld) [#/Vol] 3.94 10*6/uL 3.8 - 5.2 10*6/uL [place] WBC (Bld) [#/Vol] 10.3 10*3/uL 3.6 - 10.7 10*3/uL [place] Metabolic Panelon 05-28-2019 Sodium [Moles/Vol] Accepted [place] Comment on above: Specimen available & acceptable for analysis. Albumin [Mass/Vol] 4.3 g/dL 3.5 - 5 g/dL [place] ALP [Catalytic activity/Vol] 49 U/L 38 - 126 U/L [place] ALT [Catalytic activity/Vol] 13 U/L 13 - 69 U/L [place] Anion gap [Moles/Vol] 10 mmol/L [place] AST [Catalytic activity/Vol] 23 U/L 15 - 46 U/L [place] Calcium [Mass/Vol] 9.8 mg/dL 8.4 - 10. 4 mg/dL [place] Chloride [Moles/Vol] 107 mmol/L 98 - 10 7 mmol/L [place] CO2 [Moles/Vol] 26 mmol/L 22 - 30 mmol/L [place] Creatinine [Mass/Vol] 0.71 mg/dL 0.52 - 1.25 mg/dL [place] GFR/1.73 sq M predicted among blacks MDRD (S/P/Bld) [Vol rate/Area] mL/min/{1.73_m2} >60 mL/min [place] Glucose [Mass/Vol] 81 mg/dL 70 - 100 mg/dL [place] Potassium [Moles/Vol] 3.4 mmol/L Low 3.5 - 5.1 mmol/L [facility] Protein [Mass/Vol] 7.5 g/dL 6.3 - 8.2 g/dL [facility] Sodium [Moles/Vol] 142 mmol/L 135 - 145 mmol/L [facility] Urea nitrogen [Mass/Vol] 9 mg/dL 7 - 20 mg/dL [facility] Otheron 05-28-2019 Amphetamines, urine Negative [facility] Barbiturates, Ur Negative [facility] Benzodiazepine Ur Qual Negative [facility], [place] Cocaine Metabolites, Ur Negative [facility], [place] Methadone, Urine Negative [facility], [place] Opiates, Urine Negative [facility], [place] Oxycodone Screen, Ur Negative [facility], [place] PCP, Urine Negative [facility], [place] Comment on above: The expected value f or all of the drugs listed above is Negative. The following drugs or drug groups have been screened for by Immunoassay at the following thresholds: Amphetamine class (1000 ng/mL), Barbiturates (200 ng/mL), Benzodiazepines (200 ng/mL), Cocaine (300 ng/mL), Methadone (300 ng/mL), Opiates (300 ng/mL), Oxycodone (100 ng/mL), and PCP (25 ng/mL). NOTE: These results are for medical treatment only. Analysis performed using non-forensic procedures. POSITIVE results are NOT confirmed by a more specific alternative method unless requested. If confirmation is needed, request confirmation under separate order. Test Performed by [facility], [address] [place] [address] Test Performed by [facility], [facility] [address] Interpretation and review of laboratory results Abnormal [place] Total CK 219 U/L High 30 - 170 U/L [place] Test Performed by [facility], [facility] [address] [place], [place] [id number] [place] [address], [place] Test Performed by [facility], [facility] [address] [place], [place] [id number] [place] [address] Salicylate Lvl <1.0 0 - 20 mg/dL [facility], [place] Test Performed by [facility], [facility] [place], [place] [address] [place] [address], [place] Test Performed by [facility], [facility] [place], [place] [id number] [place] [address], [place] Test Performed by [facility], [facility] [place], [place] [address] [place] [address] Test Performed by [facility], [facility] [place], [place] [address] [place] [address], [place] Acetaminophen [Mass/Vol] <10.0 10 - 30 ug/mL [place] Bilirubin Ql (U) 0.4 mg/dL 0.2 - 1.3 mg/dL [place] EGFR IF NonAfrican Estonian >60.0 >60 mL/min [place] Comment on above: Source- MDRD equatio n with creatinine calibration to IDMS(NKDEP) eGFR not recommended for drug dose adjustment Ethanol Lvl <0.010 0 - 0.01 g/dL [place] Comment on above: NOTE: This result is for medical treatment only. Analysis performed using non-forensic procedures. Interpretation and review of laboratory results Abnormal [facility], [place] Test Performed by [facility], [address] [place] [id number] [place] [address], [place] Test Performed by [id number] [place] [address], [place] Test Performed by [facility], [facility] [place], [place] [address] [place] [address], [place] Test Performed by [facility], [facility] [place], [place] [id number] [place] [address], [place] Bilirubin Urine Negative mg/dL [place] Comment on above: Reference Range: Neg ative Glucose, Ur Normal mg/dL [place] Comment on above: Reference Range: Nor mal (<70) LEUKOCYTES, UA Negative [place]/uL [place] Comment on above: Reference Range: Neg ative Nitrite, Urine Negative [place] Comment on above: Reference Range: Neg ative Occult Blood,Urine Negative mg/dL [place] Comment on above: Reference Range: Neg ative pH (U) 8.0 [pH] [place] Specific [place], Urine 1.008 [place] Urobilinogen, Urine Normal mg/dL [place] Comment on above: Reference Range: Nor mal (0-1) Test Performed by [address] Test Performed by [address] Absolute Baso # 0.1 10*3/uL 0 - 0.2 10*3/uL [place] Absolute Neut # 5.5 10*3/uL 1.8 - 7 10*3/uL [place] Erythrocyte distribution width (RBC) [Ratio] 13.2 % 11.5 - 14.5 % [place] Granulocytes/100 WBC (Bld) 53.7 % 40 - 80 % [place] Interpretation and review of laboratory results Abnormal [place] MCHC (RBC) [Mass/Vol] 34.0 % 32 - 36 % [place] Platelet mean volume (Bld) [Entitic vol] 7.5 fL 7.4 - 10.4 fL [place] Test Performed by [address] Test Performed by [place] [address] Urinalysison 05-28-2019 Beta HCG ( test) Ql (U) Negative Negative [place] Comment on above: is the mos t common reason for HCG in urine, although choriocarcinoma, hydatidiform mole, and certain nontropho- blastic malignancies also result in detectable urinary HCG levels. Sensitivity = 20mIU/mL. Appearance (U) Turbid [place] Comment on above: Reference Range: Vinicius ar Color (U) Light-Yellow [place] Comment on above: Reference Range: Lt. Yellow Ketones Ql (U) Negative mg/dL [facility] [place] Comment on above: Reference Range: Neg ative Protein (U) [Mass/Vol] Negative mg/dL [place] Comment on above: Reference Range: Neg ative [facility] 2018 Amphetamines Ql (U) Positive [facility] Comment on above: Performed By: #### I GN #### [facility] [address], [place] THC Positive [facility] Comment on above: Performed By: #### I GN #### [facility] [address], [place] Barbiturates Negative [facility] Comment on above: Performed By: #### I GN #### [place] [address] [address], [place] Benzodiazepines Ql (U) Negative [facility] Comment on above: Performed By: #### I GN #### [facility] [address], [place] Cocaine Metabolites Negative [facility] Comment on above: Performed By: #### I GN #### [facility] [address], [place] Comment [facility] Comment on above: Result Comment: The following drugs or drug groups have been screened for by Immunoassay at the thresholds listed: Amphetamine class(1000 ng/mL), Barbiturates(300 ng/mL), Benzodiazepines(200 ng/mL),Cocaine(300 ng/mL), Ethanol(50 ng/dL),Opiates(300 ng/mL),Oxycodone(100 ng/mL), and THC(50 ng/mL) A more specific alternative method must be used to confirm preliminary positive results. NOTE: These results are for medical treatment only. Analysis performed using non-forensic procedures. Performed By: #### I GN #### [facility] [address], [place] Ethanol [Mass/Vol] Negative [facility] Comment on above: Performed By: #### I GN #### [facility] [address] [place] [address] Opiates Ql (U) Negative Normal [facility] Comment on above: Performed By: #### I GN #### [facility] [address] [facility] [facility] [place] [address] Oxycodone Negative Normal [facility] Comment on above: Performed By: #### I GN #### [facility] [address] [place] [address] Metabolic Panelon 05-26-2019 Sodium [Moles/Vol] Positive [place] Sodium [Moles/Vol] [place] Comment on above: The following drugs or drug groups have been screened for by Immunoassay at the thresholds listed: Amphetamine class(1000 ng/mL), Barbiturates(300 ng/mL), Benzodiazepines(200 ng/mL),Cocaine(300 ng/mL), Ethanol(50 ng/dL),Opiates(300 ng/mL),Oxycodone(100 ng/mL), and THC(50 ng/mL) A more specific alternative method must be used to confirm preliminary positive results. NOTE: These results are for medical treatment only. Analysis performed using non-forensic procedures. Sodium [Moles/Vol] Negative [facility], [place] Otheron 05-26-2019 Test Performed by [facility], [address], [place] [address] [place] Urinalysison 05-26-2019 Amphetamines Ql (U) Positive [place] Benzodiazepines Ql (U) Negative [facility], [place] Cocaine Ql (U) Negative [facility] Opiates Ql (U) Negative [place] [facility] 2018 Amphetamines Ql (U) Positive [facility] Comment on above: Performed By: #### I GN #### [facility] [address] [place] [address] THC Positive Normal [facility] Comment on above: Performed By: #### I GN #### [facility] [address] [place] [address] [facility] 2018 Barbiturates Negative [facility] Comment on above: Performed By: #### I GN #### [facility] [address], [place] Benzodiazepines Ql (U) Negative [facility] Comment on above: Performed By: #### I GN #### [facility] [address], [place] Cocaine Metabolites Negative [facility] Comment on above: Performed By: #### I GN #### [facility] [address] [facility] [place] Comment [facility] Comment on above: Result Comment: The following drugs or drug groups have been screened for by Immunoassay at the thresholds listed: Amphetamine class(1000 ng/mL), Barbiturates(300 ng/mL), Benzodiazepines(200 ng/mL),Cocaine(300 ng/mL), Ethanol(50 ng/dL),Opiates(300 ng/mL),Oxycodone(100 ng/mL), and THC(50 ng/mL) A more specific alternative method must be used to confirm preliminary positive results. NOTE: These results are for medical treatment only. Analysis performed using non-forensic procedures. Performed By: #### I GN #### [facility] [address], [place] Ethanol [Mass/Vol] Negative [facility] Comment on above: Performed By: #### I GN #### [facility] [address], [place] Opiates Ql (U) Negative [facility] Comment on above: Performed By: #### I GN #### [facility] [address], [place] Oxycodone Negative [facility] Comment on above: Performed By: #### I GN #### [facility] [address] [facility] 2018 Amphetamines Ql (U) Positive [facility] Comment on above: Performed By: #### I GN #### [facility] [address], [place] THC Positive [facility] Comment on above: Performed By: #### I GN #### [facility] [address], [place] Amphetamines Ql (U) Positive [facility] Benzodiazepines Ql (U) Negative [facility], [place] Cocaine Ql (U) Negative [facility], [place] Opiates Ql (U) Negative [facility], [place] Sodium [Moles/Vol] Positive [facility] Sodium [Moles/Vol] [facility] Comment on above: The following drugs or drug groups have been screened for by Immunoassay at the thresholds listed: Amphetamine class(1000 ng/mL), Barbiturates(300 ng/mL), Benzodiazepines(200 ng/mL),Cocaine(300 ng/mL), Ethanol(50 ng/dL),Opiates(300 ng/mL),Oxycodone(100 ng/mL), and THC(50 ng/mL) A more specific alternative method must be used to confirm preliminary positive results. NOTE: These results are for medical treatment only. Analysis performed using non-forensic procedures. Test Performed by [facility], [address] [place] [facility] Barbiturates Negative [facility] Comment on above: Performed By: #### I GN #### [place] [address] [place], [place] Benzodiazepines Ql (U) Negative [facility] Comment on above: Performed By: #### I GN #### [place] [address] [place], [place] Cocaine Metabolites Negative [facility] Comment on above: Performed By: #### I GN #### [place] [address] [place], [place] Comment [facility] Comment on above: Result Comment: The following drugs or drug groups have been screened for by Immunoassay at the thresholds listed: Amphetamine class(1000 ng/mL), Barbiturates(300 ng/mL), Benzodiazepines(200 ng/mL),Cocaine(300 ng/mL), Ethanol(50 ng/dL),Opiates(300 ng/mL),Oxycodone(100 ng/mL), and THC(50 ng/mL) A more specific alternative method must be used to confirm preliminary positive results. NOTE: These results are for medical treatment only. Analysis performed using non-forensic procedures. Performed By: #### I GN #### [facility] [address] [place] [address] Ethanol [Mass/Vol] Negative Normal [facility] Comment on above: Performed By: #### I GN #### [facility] [address] [place] [address] Opiates Ql (U) Negative Normal [facility] Comment on above: Performed By: #### I GN #### [facility] [address] [place] [address] Oxycodone Negative [facility] Comment on above: Performed By: #### I GN #### [facility] [address] [place] [address] Metabolic Panelon 05-07-2019 Sodium [Moles/Vol] Negative [facility], [place] Wet Prepon 06-07-2017 Wet Prep SOURCE: Vag (Few Whi te Blood Cells No clue cells No Yeast No Trichomonas vaginalis) Normal [facility] Chlam Amp RNAon 06-06-2017 Chlam Amp RNA Negative Normal Negative [facility] Comment on above: Result Comment: Holo gic? Aptima Combo 2 Assay is an in vitro nucleic acid amplification test for the detection of ribosomal RNA from Chlamydia trachomatis (CT) and Neisseria gonorrhoeae (GC) to aid in the diagnosis of chlamydial and/or gonococcal urogenital disease. This assay is FDA-approved for testing on female endocervical swabs, vaginal swabs, ThinPrep liquid-based pap samples, male urine samples and urethral swabs. Performance characteristics for this assay on specific [id number] sample types (female urine) have been validated by [facility]. Performance has not been evaluated for patients less than 14 years of age. Results should be interpreted in conjunction with other clinical information. GC AMP RNAon 06-06-2017 GC Amp RNA Negative Normal Negative [facility] RUMon 06-06-2017 Bilirubin (total) Negative Normal Negative [facility] Comment on above: Result Comment: Nega tive Blood Negative Normal Negative [facility] Comment on above: Result Comment: Nega tive Erythrocytes (RBC) 0-2 Normal 0-2 [facility] Comment on above: Result Comment: 0-2 Glucose mass conc Negative Normal Negative [facility] Comment on above: Result Comment: Nega tive Leukocyte Marcia Negative Normal Negative [facility] Comment on above: Result Comment: Nega tive Protein Trace Abnormal Negative [facility] Comment on above: Result Comment: Trac e Squamous Epith FEW Normal FEW [facility] Comment on above: Result Comment: FEW Ur Appearance SL Cloudy Normal Clear [facility] Comment on above: Result Comment: SL C loudy Urine Spec [place] >=1.030 Normal 1.001-1.03 [facility] Comment on above: Result Comment: >=1. 030 Urine, color Yellow Normal Yellow [facility] Comment on above: Result Comment: Wood ow Urine, ketones presence Negative Normal Negative [facility] Comment on above: Result Comment: Nega tive Urine, nitrite presence Negative Normal Negative [facility] Comment on above: Result Comment: Nega tive Urine, pH 6.0 [pH] Normal 4.8 - 8.0 [facility] Comment on above: Result Comment: 6.0 Urine, urobilinogen 0.2 {Sonia'U}/dL Normal <1.0 [facility] Comment on above: Result Comment: 0.2 WBC (Leukocytes) 2-5 Normal 0-5 [facility] Comment on above: Result Comment: 2-5 Auto Diffon 04-19-2017 Basophils/100 WBC Auto (Bld) 0.1 x10E9/L Normal 0.0-0.2 [facility] Basophils/100 WBC Auto (Bld) 0.5 % Normal 0.0-2.4 [facility] Eosinophils 0.3 10*3/uL Normal 0.0-0.5 [facility] Eosinophils/100 leukocytes 2.3 % Normal 0.7-6.5 [facility] Lymphocytes 5.5 10*3/uL High 1.1-3.5 [facility] Lymphocytes/100 leukocytes 44.4 % High 17.0-44.0 [facility] Monocytes 0.8 10*3/uL Normal 0.3-1.0 [facility] Monocytes/100 leukocytes 6.3 % Normal 5.3-12.5 [facility] Neutrophils 5.7 10*3/uL Normal 1.8-7.5 [facility] Neutrophils/100 WBC Auto (Bld) 46.5 % Normal 41.0-73.8 [facility] BMPon 04-19-2017 Anion gap 9.0 mmol/L Normal 5.0-19.0 [facility] Bun/CretRatio 16.[address] [facility] Calcium 9.9 mg/dL Normal 8.1-10.1 [facility] Chloride 105 mmol/L Normal 98-107 [facility] CO2 25 mmol/L Normal 22-32 [facility] Creatinine 0.55 mg/dL Low 0.60-1.30 [facility] Glucose mass conc 97 mg/dL Normal 70-100 [facility] Osmolality-Calc 276 mOsm/kg Normal [facility] Potassium molar conc 3.7 mmol/L Normal 3.4-5.1 [facility] Sodium 139 mmol/L Normal 136-144 [facility] Urea nitrogen 9 mg/dL Normal 8-26 [facility] RUMon 04-19-2017 Bilirubin (total) Negative Normal Negative [facility] Blood Negative Normal Negative [facility] Ca Oxal Elana Few Abnormal [facility] Glucose mass conc Negative Normal Negative [facility] Leukocyte Marcia Negative Normal Negative [facility] Protein Negative Normal Negative [facility] Squamous Epith FEW Normal FEW [facility] Ur Appearance Clear Normal Clear [facility] Urine Spec [place] >=1.030 Normal 1.001-1.03 [facility] Urine, bacteria in sediment 1+ POS Abnormal Negative [facility] Urine, color Yellow Normal Yellow [facility] Urine, ketones presence Trace Abnormal Negative [facility] Urine, nitrite presence Negative Normal Negative [facility] Urine, pH 6.0 [pH] Normal 4.8 - 8.0 [facility] Urine, urobilinogen 0.2 {Sonia'U}/dL Normal <1.0 [facility] U Pregon 04-19-2017 HCG.beta subunit ( test) Ql (U) Negative Normal Negative [facility] Comment on above: Result Comment: Poin t of Care testing performed by nursing. zCBCDon 04-19-2017 Erythrocyte distribution width Auto Ratio (RBC) 12.9 % Normal 11.4-16.0 [facility] Erythrocytes (RBC) 4.18 x10E12/L Normal 3.78-5.45 [facility] Hematocrit (HCT) 39.1 % Normal 34.7-44.9 [facility] Hemoglobin mass conc (Bld) 12.9 g/dL Normal 11.3-15.6 [facility] MCH 31.0 pg Normal 26.5-33.0 [facility] MCHC mass conc (RBC) 33.1 g/dL Normal 32.6-36.0 [facility] MCV 93.6 fL Normal 80.0-100.0 [facility] Mean Plt Vol 7.4 fL Normal 7.2-10.3 [facility] Platelets 325 10*3/uL Normal 144-400 [facility] WBC (Leukocytes) 12.3 10*3/uL High 3.5-11.5 [facility] IUD INSERTION [facility] Vital Signs Date Time Vital Sign Value Performing Clinician Facility 02-21-2025 15:59-0400 Body temperature 98.7 [degF] Dr. Flora Prieto DO Work Phone: [phone] [place] [address] 02-21-2025 15:59-0400 Diastolic blood pressure 84 mm[Hg] Dr. Flora Prieto DO Work Phone: 2([phone])[phone] [place] [address] 02-21-2025 15:59-0400 Heart rate 73 /min Dr. Flora Prieto DO Work Phone: 5(367)151-338487 [place] [address] 02-21-2025 15:59-0400 Respiratory rate 16 /min Dr. Flora Prieto DO Work Phone: 7([phone])814-886087 [place] [address] 02-21-2025 15:59-0400 SaO2% (BldA) [Mass fraction] 100 % Dr. Flora Prieto DO Work Phone: [facility] 02-21-2025 15:59-0400 Systolic blood pressure 133 mm[Hg] Dr. Flora Prieto DO Work Phone: 6(308)792-394987 [place] [address] 02-21-2025 13:19-0400 Body height 162.[address] Flora Prieto DO Work Phone: 5([phone])629-472987 [place] [address] 02-21-2025 13:19-0400 Body mass index (BMI) [Ratio] 28.1 kg/m2 Dr. Flora Prieto DO Work Phone: 0([phone])900-283587 [place] [address] 02-21-2025 13:19-0400 Body weight 74.[address] Flora Prieto DO Work Phone: 6(744)690-505510 [place] [address] 02-14-2025 18:00-0400 Body temperature 97.9 [degF] Dr. Flora Prieto DO Work Phone: 1(476)474-221187 [place] [address] 02-14-2025 18:00-0400 Diastolic blood pressure 82 mm[Hg] Dr. Flora Prieto DO Work Phone: 3(083)987-287510 [place] [address] 02-14-2025 18:00-0400 Heart rate 75 /min Dr. Flora Prieto DO Work Phone: 4(273)011-983210 [place] [address] 02-14-2025 18:00-0400 Respiratory rate 16 /min Dr. Flora Prieto DO Work Phone: 4([phone])462-056887 [place] [address] 02-14-2025 18:00-0400 SaO2% (BldA) [Mass fraction] 100 % Dr. Flora Prieto DO Work Phone: 2(865)199-582210 [place] [address] 02-14-2025 18:00-0400 Systolic blood pressure 126 mm[Hg] Dr. Flora Prieto DO Work Phone: 1(925)169-468210 [place] [address] 02-14-2025 15:55-0400 Inhaled oxygen flow rate 8 L/min Dr. Flora Prieto DO Work Phone: 8([phone])133-127587 [place] [address] 02-14-2025 13:25-0400 Body height 162.[address] Flora Prieto DO Work Phone: 3(713)461-010210 [place] [address] 02-14-2025 13:25-0400 Body mass index (BMI) [Ratio] 27.6 kg/m2 Dr. Flora Prieto DO Work Phone: 1(068)173-053687 [place] [address] 02-14-2025 13:25-0400 Body weight [address] Flora Prieto DO Work Phone: [facility] 02-02-2025 13:06-0400 Body height 162.[address] Flora Prieto DO Work Phone: 7([phone])687-530087 [place] [address] 02-02-2025 13:06-0400 Body mass index (BMI) [Ratio] 28.1 kg/m2 Dr. Flora Prieto DO Work Phone: [phone] [place] [address] 02-02-2025 13:06-0400 Body weight 74.[address] Flora Prieto DO Work Phone: 3(862)[phone] [place] [address] 02-02-2025 13:06-0400 Diastolic blood pressure 79 mm[Hg] Dr. Flora Prieto DO Work Phone: 2(492)182-590587 [place] [address] 02-02-2025 13:06-0400 Heart rate 90 /min Dr. Flora Prieto DO Work Phone: 4(709)[phone] [place] [address] 02-02-2025 13:06-0400 Respiratory rate 17 /min Dr. Flora Prieto DO Work Phone: 6(996)[phone] [place] [address] 02-02-2025 13:06-0400 SaO2% (BldA) [Mass fraction] 98 % Dr. Flora Prieto DO Work Phone: [facility] 02-02-2025 13:06-0400 Systolic blood pressure 127 mm[Hg] Dr. Flora Prieto DO Work Phone: [facility] 01-15-2025 21:26-0400 Body temperature 98.7 [degF] Dr. Flora Prieto DO Work Phone: 8(508)[phone] [place] [address] 01-15-2025 21:26-0400 Diastolic blood pressure 90 mm[Hg] Dr. Flora Prieto DO Work Phone: [facility] 01-15-2025 21:26-0400 Heart rate 75 /min Dr. Flora Prieto DO Work Phone: [facility] 01-15-2025 21:26-0400 Respiratory rate 16 /min Dr. Flora Prieto DO Work Phone: [facility] 01-15-2025 21:26-0400 SaO2% (BldA) [Mass fraction] 100 % Dr. Flora Prieto DO Work Phone: [facility] 01-15-2025 21:26-0400 Systolic blood pressure 131 mm[Hg] Dr. Flora Prieto DO Work Phone: [facility] 01-15-2025 17:48-0400 Body mass index (BMI) [Ratio] 28.8 kg/m2 Dr. Flora Prieto DO Work Phone: [facility] 01-15-2025 17:48-0400 Body weight 76.[address] Flora Prieto DO Work Phone: [facility] 12-31-2024 12:56-0400 Body mass index (BMI) [Ratio] 28.15 kg/m2 Hui Podlogar 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 Work Phone: [facility] 12-31-2024 12:56-0400 Body weight 74.39 kg Hui Podlogar 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 Work Phone: [facility] 12-31-2024 12:56-0400 Diastolic blood pressure 78 mm[Hg] Hui Podlogar 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 Work Phone: [facility] 12-31-2024 12:56-0400 Heart rate 100 /min Hui Podlogar 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 Work Phone: [facility] 12-31-2024 12:56-0400 Respiratory rate 16 /min Hui Podlogar 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 Work Phone: [facility] 12-31-2024 12:56-0400 SaO2% (BldA) [Mass fraction] 97 % Hui Podlogar 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 Work Phone: [facility] 12-31-2024 12:56-0400 Systolic blood pressure 122 mm[Hg] Hui Podlogar 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 Work Phone: [facility] 10-18-2024 10:07-0500 Body height 162.6 cm Temitope Bear [employer]OM[employer].CNM Work Phone: [facility] 10-18-2024 10:07-0500 Body mass index (BMI) [Ratio] 28.67 kg/m2 Temitope Bear [employer].CNM Work Phone: [facility] 10-18-2024 10:07-0500 Body weight 75.75 kg Temitope Bear [employer].CNM Work Phone: [facility] 10-18-2024 10:07-0500 Diastolic blood pressure 74 mm[Hg] Temitope Bear [employer].CNM Work Phone: [facility] 10-18-2024 10:07-0500 Systolic blood pressure 126 mm[Hg] Temitope Bear [employer].CNM Work Phone: [facility] 07-05-2024 12:58-0400 Body height 160.4 cm Hui Podlogar 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 Work Phone: [facility] 07-05-2024 12:58-0400 Body mass index (BMI) [Ratio] 30.63 kg/m2 Hui Podlogar 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 Work Phone: [facility] 07-05-2024 12:58-0400 Body weight 78.8 kg Hui Podlogar 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 Work Phone: [facility] 07-05-2024 12:58-0400 Diastolic blood pressure 84 mm[Hg] Hui Podlogar 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 Work Phone: [facility] 07-05-2024 12:58-0400 Heart rate 94 /min Hui Podlogar 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 Work Phone: [facility] 07-05-2024 12:58-0400 Respiratory rate 16 /min Hui Podlogar 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 Work Phone: [facility] 07-05-2024 12:58-0400 SaO2% (BldA) [Mass fraction] 98 % Hui Podlogar 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 Work Phone: [facility] 07-05-2024 12:58-0400 Systolic blood pressure 136 mm[Hg] Hui Valdes APRN.GROUP WORKER Work Phone: [facility] 07-01-2023 10:36-0400 Body height 161.3 cm Shaun Carlin MD Work Phone: [facility] 07-01-2023 10:36-0400 Body temperature 98.4 [degF] Shaun Carlin MD Work Phone: [facility] 07-01-2023 10:36-0400 Body weight 87.09 kg Shaun Carlin MD Work Phone: [facility] 07-01-2023 10:36-0400 Diastolic blood pressure 86 mm[Hg] Shaun Carlin MD Work Phone: [facility] 07-01-2023 10:36-0400 Heart rate 64 /min Shaun Carlin MD Work Phone: [facility] 07-01-2023 10:36-0400 Systolic blood pressure 102 mm[Hg] Shaun Carlin MD Work Phone: [facility] 03-26-2023 13:59-0400 Body height 161.3 cm Esme Grace MD Work Phone: [facility] 03-26-2023 13:59-0400 Body weight 89.72 kg Esme Grace MD Work Phone: [facility] 03-26-2023 13:59-0400 Diastolic blood pressure 79 mm[Hg] Esme Grace MD Work Phone: [facility] 03-26-2023 13:59-0400 Heart rate 77 /min Esme Grace MD Work Phone: [facility] 03-26-2023 13:59-0400 Systolic blood pressure 123 mm[Hg] Esme Grace MD Work Phone: [facility] 01-17-2023 09:19-0400 Diastolic blood pressure 71 mm[Hg] Esme Grace MD Work Phone: [facility] 01-17-2023 09:19-0400 Heart rate 90 /min Esme Grace MD Work Phone: [facility] 01-17-2023 09:19-0400 Respiratory rate 17 /min Esme Grace MD Work Phone: [facility] 01-17-2023 09:19-0400 SaO2% (BldA) [Mass fraction] 97 % Esme Grace MD Work Phone: [facility] 01-17-2023 09:19-0400 Systolic blood pressure 123 mm[Hg] Esme Grace MD Work Phone: [facility] 01-17-2023 08:56-0400 Body temperature 97.2 [degF] Esme Grace MD Work Phone: [facility] 01-01-2023 14:20-0400 Body height 161.3 cm Esme Grace MD Work Phone: [facility] 01-01-2023 14:20-0400 Body weight 93.89 kg Esme Grace MD Work Phone: [facility] 01-01-2023 14:20-0400 Diastolic blood pressure 76 mm[Hg] Esme Grace MD Work Phone: [facility] 01-01-2023 14:20-0400 Heart rate 80 /min Esme Grace MD Work Phone: [facility] 01-01-2023 14:20-0400 Systolic blood pressure 118 mm[Hg] Esme Grace MD Work Phone: [facility] 12-10-2022 14:38-0400 Diastolic blood pressure 78 mm[Hg] Shaun Carlin MD Work Phone: [facility] 12-10-2022 14:38-0400 Systolic blood pressure 130 mm[Hg] Shaun Carlin MD Work Phone: [facility] 12-10-2022 14:28-0400 Body height 162.6 cm Shaun Carlin MD Work Phone: [facility] 12-10-2022 14:28-0400 Body temperature 97.3 [degF] Shaun Carlin MD Work Phone: [facility] 12-10-2022 14:28-0400 Body weight 95.25 kg Shaun Carlin MD Work Phone: [facility] 12-10-2022 14:28-0400 Heart rate 88 /min Shaun Carlin MD Work Phone: [facility] 12-10-2022 09:45-0400 Body height 162.6 cm Alysha Speedy 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 Work Phone: [facility] 12-10-2022 09:45-0400 Body weight 95.25 kg Alysha Speedy [employer] H[employer]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 Work Phone: [facility] 12-10-2022 09:45-0400 Diastolic blood pressure 80 mm[Hg] Alysha Speedy [employer] H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 Work Phone: [facility] 12-10-2022 09:45-0400 Systolic blood pressure 114 mm[Hg] Alysha Speedy [employer] H[employer]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 Work Phone: [facility] 11-01-2022 13:40-0500 Body height 162.6 cm Alysha Speedy [employer] H[employer]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 Work Phone: [facility] 11-01-2022 13:40-0500 Body weight 97.43 kg Alysha Speedy [employer] H[employer]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 Work Phone: [facility] 11-01-2022 13:40-0500 Diastolic blood pressure 90 mm[Hg] Alysha Speedy [employer] H[employer]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 Work Phone: [facility] 11-01-2022 13:40-0500 Systolic blood pressure 152 mm[Hg] Alysha Speedy [employer] H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 Work Phone: [facility] 10-23-2022 15:05-0500 Body height 162.6 cm Tricia Rangel MD Work Phone: [facility] 10-23-2022 15:05-0500 Body weight 96.62 kg Tricia Rangel MD Work Phone: [facility] 10-23-2022 15:05-0500 Diastolic blood pressure 82 mm[Hg] Tricia Rangel MD Work Phone: [facility] 10-23-2022 15:05-0500 Systolic blood pressure 141 mm[Hg] Tricia Rangel MD Work Phone: [facility] 10-08-2022 10:52-0500 Body height 162.6 cm Shaun Carlin MD Work Phone: [facility] 10-08-2022 10:52-0500 Body temperature 97.5 [degF] Shaun Carlin MD Work Phone: [facility] 10-08-2022 10:52-0500 Body weight 97.98 kg Shaun aCrlin MD Work Phone: [facility] 10-08-2022 10:52-0500 Diastolic blood pressure 88 mm[Hg] Shaun Carlin MD Work Phone: [facility] 10-08-2022 10:52-0500 Heart rate 80 /min Shaun Carlin MD Work Phone: [facility] 10-08-2022 10:52-0500 Systolic blood pressure 136 mm[Hg] Shaun Carlin MD Work Phone: [facility] 09-04-2022 14:42-0500 Body height 162.6 cm Tricia Ragnel MD Work Phone: [facility] 09-04-2022 14:42-0500 Body weight 104.78 kg Tricia Rangel MD Work Phone: [facility] 09-04-2022 14:42-0500 Diastolic blood pressure 75 mm[Hg] Tricia Rangel MD Work Phone: [facility] 09-04-2022 14:42-0500 Systolic blood pressure 120 mm[Hg] Tricia Rangel MD Work Phone: [facility] 08-30-2022 14:35-0500 Body height 162.6 cm Flora Browning MD Work Phone: [facility] 08-30-2022 14:35-0500 Body weight 104.42 kg Flora Browning MD Work Phone: [facility] 08-30-2022 14:35-0500 Diastolic blood pressure 76 mm[Hg] Flora Browning MD Work Phone: [facility] 08-30-2022 14:35-0500 Systolic blood pressure 133 mm[Hg] Flora Browning MD Work Phone: [facility] 08-23-2022 14:00-0500 Body height 162.6 cm Flora Browning MD Work Phone: [facility] 08-23-2022 14:00-0500 Body weight 104.33 kg Flora Browning MD Work Phone: [facility] 08-23-2022 14:00-0500 Diastolic blood pressure 89 mm[Hg] Flora Browning MD Work Phone: [facility] 08-23-2022 14:00-0500 Systolic blood pressure 128 mm[Hg] Flora Browning MD Work Phone: [facility] 08-15-2022 14:33-0500 Body height 162.6 cm Flora Browning MD Work Phone: [facility] 08-15-2022 14:33-0500 Body weight 104.01 kg Flora Browning MD Work Phone: [facility] 08-15-2022 14:33-0500 Diastolic blood pressure 72 mm[Hg] Flora Browning MD Work Phone: [facility] 08-15-2022 14:33-0500 Systolic blood pressure 122 mm[Hg] Flora Browning MD Work Phone: [facility] 08-06-2022 13:12-0500 Body height 162.6 cm Yael Mahmood APRN.CNM Work Phone: [facility] 08-06-2022 13:12-0500 Body weight 105.33 kg Yael Mahmood DRAP[employer] HEMMER [employer]OMATIC.CNM Work Phone: [facility] 08-06-2022 13:12-0500 Diastolic blood pressure 71 mm[Hg] Yael Mahmood [employer]AP[employer] HEMMER AUTOMATIC.CNM Work Phone: [facility] 08-06-2022 13:12-0500 Systolic blood pressure 113 mm[Hg] Yael Mahmood [employer]AP[employer] HEMMER [employer]OM[employer]IC.CNM Work Phone: [facility] 08-02-2022 13:26-0500 Body height 162.6 cm Flora Browning MD Work Phone: [facility] 08-02-2022 13:26-0500 Body weight 105.46 kg Flora Browning MD Work Phone: [facility] 08-02-2022 13:26-0500 Diastolic blood pressure 77 mm[Hg] Flora Browning MD Work Phone: [facility] 08-02-2022 13:26-0500 Systolic blood pressure 123 mm[Hg] Flora Browning MD Work Phone: [facility] 07-19-2022 11:15-0400 Body height 162.6 cm Honey Surace PA-C Work Phone: [facility] 07-19-2022 11:15-0400 Body weight 105.69 kg Honey Surace PA-C Work Phone: [facility] 07-19-2022 11:15-0400 Diastolic blood pressure 71 mm[Hg] Honey Surace PA-C Work Phone: [facility] 07-19-2022 11:15-0400 Systolic blood pressure 113 mm[Hg] Honey Surace PA-C Work Phone: [facility] 07-05-2022 10:20-0400 Body height 162.6 cm Honey Surace PA-C Work Phone: [facility] 07-05-2022 10:20-0400 Body weight 104.78 kg Honey Surace PA-C Work Phone: [facility] 07-05-2022 10:20-0400 Diastolic blood pressure 84 mm[Hg] Honey Surace PA-C Work Phone: [facility] 07-05-2022 10:20-0400 Systolic blood pressure 125 mm[Hg] Honey Surace PA-C Work Phone: [facility] 06-21-2022 13:15-0400 Body height 162.6 cm Honey Surace PA-C Work Phone: [facility] 06-21-2022 13:15-0400 Body weight 104.64 kg Honey Surace PA-C Work Phone: [facility] 06-21-2022 13:15-0400 Diastolic blood pressure 69 mm[Hg] Honey Surace PA-C Work Phone: [facility] 06-21-2022 13:15-0400 Systolic blood pressure 106 mm[Hg] Honey Surace PA-C Work Phone: [facility] 05-10-2022 08:37-0400 Body height 162.6 cm Honey Surace PA-C Work Phone: [facility] 05-10-2022 08:37-0400 Body weight 102.69 kg Honey Surace PA-C Work Phone: [facility] 05-10-2022 08:37-0400 Diastolic blood pressure 71 mm[Hg] Honey Surace PA-C Work Phone: [facility] 05-10-2022 08:37-0400 Systolic blood pressure 107 mm[Hg] Honey Surace PA-C Work Phone: [facility] 05-06-2022 13:44-0400 Body weight 103.06 kg Shaun Carlin MD Work Phone: [facility] 05-06-2022 13:44-0400 Diastolic blood pressure 72 mm[Hg] Shaun Carlin MD Work Phone: [facility] 05-06-2022 13:44-0400 Heart rate 95 /min Shaun Carlin MD Work Phone: [facility] 05-06-2022 13:44-0400 SaO2% (BldA) [Mass fraction] 98 % Shaun Carlin MD Work Phone: [facility] 05-06-2022 13:44-0400 Systolic blood pressure 120 mm[Hg] Shaun Carlin MD Work Phone: [facility] 04-05-2022 10:13-0400 Body height 162.6 cm Shaun Carlin MD Work Phone: [facility] 04-05-2022 10:13-0400 Body temperature 98.8 [degF] Shaun Carlin MD Work Phone: [facility] 04-05-2022 10:13-0400 Body weight 102.06 kg Shaun Carlin MD Work Phone: [facility] 04-05-2022 10:13-0400 Diastolic blood pressure 82 mm[Hg] Shaun Carlin MD Work Phone: [facility] 04-05-2022 10:13-0400 Heart rate 100 /min Shaun Carlin MD Work Phone: [facility] 04-05-2022 10:13-0400 Systolic blood pressure 110 mm[Hg] Shaun Carlin MD Work Phone: [facility] 04-05-2022 08:47-0400 Body height 162.6 cm Honey Surace PA-C Work Phone: [facility] 04-05-2022 08:47-0400 Body weight 102.06 kg Honey Surace PA-C Work Phone: [facility] 04-05-2022 08:47-0400 Diastolic blood pressure 71 mm[Hg] Honey Surace PA-C Work Phone: [facility] 04-05-2022 08:47-0400 Systolic blood pressure 116 mm[Hg] Honey Surace PA-C Work Phone: [facility] 02-14-2022 14:32-0400 Body height 162.6 cm Flora Browning MD Work Phone: [facility] 02-14-2022 14:32-0400 Body weight 100.83 kg Flora Browning MD Work Phone: [facility] 02-14-2022 14:32-0400 Diastolic blood pressure 87 mm[Hg] Flora Browning MD Work Phone: [facility] 02-14-2022 14:32-0400 Systolic blood pressure 127 mm[Hg] Flora Browning MD Work Phone: [facility] 02-08-2022 10:03-0400 Body height 162.6 cm Shaun Carlin MD Work Phone: [facility] 02-08-2022 10:03-0400 Body temperature 97.9 [degF] Shaun Carlin MD Work Phone: [facility] 02-08-2022 10:03-0400 Body weight 101.15 kg Shaun Carlin MD Work Phone: [facility] 02-08-2022 10:03-0400 Diastolic blood pressure 76 mm[Hg] Shaun Carlin MD Work Phone: [facility] 02-08-2022 10:03-0400 Heart rate 92 /min Shaun Carlin MD Work Phone: [facility] 02-08-2022 10:03-0400 Systolic blood pressure 114 mm[Hg] Shaun Carlin MD Work Phone: [facility] 01-23-2022 10:07-0400 Body height 160.02 cm Shaun Carlin Work Phone: [facility] Work Phone: 01-23-2022 10:07-0400 Body mass index (BMI) [Ratio] 39.72 kg/m2 Shaun Carlin Work Phone: [facility] Work Phone: 01-23-2022 10:07-0400 Body surface area Derived from formula 2.03 m2 Shaun Carlin Work Phone: [facility] Work Phone: 01-23-2022 10:07-0400 Body temperature 98.6 [degF] Shaun Solorzanol Work Phone: [facility] Work Phone: 01-23-2022 10:07-0400 Body weight 101.72 kg Shaun Solorzanol Work Phone: [facility] Work Phone: 01-23-2022 10:07-0400 Diastolic blood pressure 74 mm[Hg] Shaun Solorzanol Work Phone: [facility] Work Phone: 01-23-2022 10:07-0400 Heart rate 100 /min Shaun Solorzanol Work Phone: [facility] Work Phone: 01-23-2022 10:07-0400 SaO2% (BldA) [Mass fraction] 96 % Shaun Solorzanol Work Phone: [facility] Work Phone: 01-23-2022 10:07-0400 Systolic blood pressure 114 mm[Hg] Shaun Solorzanol Work Phone: [facility] Work Phone: 01-18-2022 13:52-0400 Body height 162.6 cm Rolan Biats DO Work Phone: [facility] 01-18-2022 13:52-0400 Body weight 101.61 kg Rolan Biats DO Work Phone: [facility] 01-18-2022 13:52-0400 Diastolic blood pressure 83 mm[Hg] Rolan Biats DO Work Phone: [facility] 01-18-2022 13:52-0400 Systolic blood pressure 124 mm[Hg] Rolan Biats DO Work Phone: [facility] 01-08-2022 16:24-0400 Body height 162.6 cm Shaun Carlin MD Work Phone: [facility] 01-08-2022 16:24-0400 Body temperature 98.91 [degF] Shaun Carlin MD Work Phone: [facility] 01-08-2022 16:24-0400 Body weight 101.61 kg Shaun Carlin MD Work Phone: [facility] 01-08-2022 16:24-0400 Diastolic blood pressure 92 mm[Hg] Shaun Carlin MD Work Phone: [facility] 01-08-2022 16:24-0400 Heart rate 96 /min Shaun Carlin MD Work Phone: [facility] 01-08-2022 16:24-0400 Systolic blood pressure 136 mm[Hg] Shaun Carlin MD Work Phone: [facility] 06-19-2021 00:10-0400 Body height 162.6 cm Rolan Allen MD Work Phone: [facility] Work Phone: 06-19-2021 00:10-0400 Body mass index (BMI) [Ratio] 39.48 kg/m2 Rolan Allen MD Work Phone: [facility] Work Phone: 06-19-2021 00:10-0400 Body weight 104.33 kg Rolan Allen MD Work Phone: [facility] Work Phone: 06-18-2021 23:29-0400 Body temperature 97.2 [degF] Rolan Allen MD Work Phone: [facility] Work Phone: 06-18-2021 23:29-0400 Diastolic blood pressure 71 mm[Hg] Rolan Allen MD Work Phone: [facility] Work Phone: 06-18-2021 23:29-0400 Heart rate 97 /min Rolan Allen MD Work Phone: [facility] Work Phone: 06-18-2021 23:29-0400 Respiratory rate 20 /min Rolan Allen MD Work Phone: [facility] Work Phone: 06-18-2021 23:29-0400 SaO2% (BldA) [Mass fraction] 96 % Rolan Allen MD Work Phone: [facility] Work Phone: 06-18-2021 23:29-0400 Systolic blood pressure 134 mm[Hg] Rolan Allen MD Work Phone: [facility] Work Phone: 12-24-2020 01:29-0400 Body Temperature 98.91 [degF] [facility] [employer] Work Phone: 12-24-2020 01:29-0400 BP Diastolic 82 mm[Hg] [facility] [employer] Work Phone: 12-24-2020 01:29-0400 BP Systolic 117 mm[Hg] [facility] [employer] Work Phone: 12-24-2020 01:29-0400 Pulse (Heart Rate) 81 /min [facility] [employer] Work Phone: 12-24-2020 01:29-0400 Pulse Oximetry 98 % [facility] [employer] Work Phone: 12-24-2020 01:29-0400 Respiratory Rate 16 /min [facility] [employer] Work Phone: 12-23-2020 21:40-0400 BMI (Body Mass Index) 36.05 kg/m2 [facility] [employer] Work Phone: 12-23-2020 21:40-0400 Body weight 95.25 kg [facility] [employer] Work Phone: 12-23-2020 21:39-0400 Height 162.6 cm [facility] [employer] Work Phone: 08-16-2020 16:43-0500 BMI (Body Mass Index) 34.16 kg/m2 Desiree Casarez [facility] Work Phone: 08-16-2020 16:43-0500 Body Temperature 97.9 [degF] Desiree Casarez [facility] Work Phone: Comment on above: Method: Temporal 08-16-2020 16:43-0500 Body weight 90.27 kg Desiree Casarez [facility] Work Phone: 08-16-2020 16:43-0500 BP Diastolic 82 mm[Hg] Desiree Casarez [facility] Work Phone: Comment on above: Location: LUE; Position: Sitting 08-16-2020 16:43-0500 BP Systolic 124 mm[Hg] Desiree Casarez [facility] Work Phone: Comment on above: Location: LUE; Position: Sitting 08-16-2020 16:43-0500 BSA (Body Surface Area) 1.95 m2 Desiree Casarez [facility] Work Phone: 08-16-2020 16:43-0500 Height 162.56 cm Desiree Casarez [facility] Work Phone: 08-16-2020 16:43-0500 Pulse (Heart Rate) 85 /min Desiree Casarez [facility] Work Phone: 08-16-2020 16:43-0500 Pulse Oximetry 98 % Desiree Casarez [facility] Work Phone: Comment on above: Source: 08-16-2020 16:43-0500 Respiratory Rate 18 /min Desiree Casarez [facility] Work Phone: 06-04-2019 06:07-0400 Body Temperature 98.01 [degF] Christina Juan Carlos [employer] [facility] [place] [place] [place] 06-04-2019 06:07-0400 BP Diastolic 82 mm[Hg] Christina [facility] [place] , [place] 06-04-2019 06:07-0400 BP Systolic 114 mm[Hg] Christina [facility] , [place] 06-04-2019 06:07-0400 Pulse (Heart Rate) 90 /min Christina [facility], [place] 06-04-2019 06:07-0400 Pulse Oximetry 96 % Christina Rangel [facility] , [place] 06-04-2019 06:07-0400 Respiratory Rate 18 /min Christina Rangel [facility], [place] 06-02-2019 17:08-0400 BMI (Body Mass Index) 26.61 kg/m2 Christina Rangel [facility], [place] 06-02-2019 17:08-0400 Body weight 70.31 kg Christina Rangel [facility] , [place] 06-02-2019 17:08-0400 Height 162.6 cm Christina Rangel [facility] , [place] 05-29-2019 09:56-0400 BMI (Body Mass Index) 26.61 kg/m2 [facility] 05-29-2019 09:56-0400 Body Temperature 97.7 [degF] [facility], [place] 05-29-2019 09:56-0400 Body weight 70.31 kg Mio [facility] , [place] 05-29-2019 09:56-0400 BP Diastolic 96 mm[Hg] [facility] [place] 05-29-2019 09:56-0400 BP Systolic 145 mm[Hg] [facility] [place] 05-29-2019 09:56-0400 Height 162.6 cm M[facility] , [place] 05-29-2019 09:56-0400 Pulse (Heart Rate) 98 /min [facility], [place] 05-29-2019 09:56-0400 Pulse Oximetry 100 % [facility] , 05-29-2019 09:56-0400 [facility] 05-29-2019 05:54-0400 BP Diastolic 98 mm[Hg] [facility] 05-29-2019 05:54-0400 BP Systolic 142 mm[Hg] [facility] , [place] 05-29-2019 05:54-0400 Pulse (Heart Rate) 89 /min [facility] [place] 05-29-2019 05:54-0400 Pulse Oximetry 100 % [facility]se [facility] , [place] 05-29-2019 05:54-0400 Respiratory Rate 16 /min Ese [facility], [place] 05-28-2019 19:04-0400 BMI (Body Mass Index) 25.06 kg/m2 Ese Ha [facility], [place] 05-28-2019 19:04-0400 Body Temperature 98.2 [degF] Ese Ha [facility], [place] 05-28-2019 19:04-0400 Body weight 72.58 [facility] [place] 05-28-2019 17:30-0400 Height 170.2 cm Ese [facility] , [place] Encounters Encounter Date Encounter Type Care Provider Facility Start: 02-21-2025 End: 02-21-2025 Emergency department patient visit Dr. Flora Prieto DO Work Phone: -Emergency Department Work Phone: Start: 02-20-2025 Encounter for other preprocedural examination Desean Rodriguez [facility] Start: 02-14-2025 ambulatory Desean Rodriguez [place] Start: 02-14-2025 Non-patient / Non-visit Dr. Sofía MARADIAGA [facility] Start: 02-14-2025 End: 02-14-2025 Admission to same day surgery center Dr. Desean Rodriguez MD -[facility] Start: 02-14-2025 End: 02-14-[address] Flora Prieto DO Work Phone: [facility] Work Phone: Start: 02-02-2025 End: 02-02-[address] Desean Rodriguez MD -[facility] Work Phone: Start: 02-02-2025 End: 02-02-[address] Flora Prieto DO Work Phone: [facility] Work Phone: Start: 01-15-2025 End: 01-15-2025 Emergency department patient visit Dr. Flora Schwiger DO -Emergency Department Work Phone: Start: 12-31-2024 End: 12-31-2024 Patient encounter procedure Hui Valdes APRN.CNP Work Phone: [facility] [place] Comment on above: Primary hypertension (Primary Dx); Migraine without aura and without status migrainosus, not intractable; ADHD (attention deficit hyperactivity disorder), combined type; OAB (overactive bladder); Recurrent major depressive disorder, remission status unspecified Start: 12-31-2024 End: 12-31-2024 ambulatory HUI ORTIZLOGYASHIRA Facility:[facility] Start: 12-28-2024 End: 12-29-2024 Telephone encounter Temitope Bear APRN.CNM Work Phone: OB/Gynecology Comment on above: Orders Start: 10-26-2024 End: 12-26-2024 Follow-up encounter Temitope Bear APRN.CNM Work Phone: OB/Gynecology Start: 10-18-2024 End: 10-18-2024 ambulatory TEMITOPE BEAR Facility:[facility] Start: 10-18-2024 End: 10-18-2024 Patient encounter procedure Temitope Bear APRN.CNM Work Phone: OB/Gynecology Comment on above: Encounter for gyneco logical examination (general) (routine) with abnormal findings (Primary Dx); Screening for cervical cancer; Encounter for screening for human papillomavirus (HPV); Encounter for screening mammogram for breast cancer; Dense breast tissue; Screening for STDs (sexually transmitted diseases); IUD (intrauterine device) in place; Encounter for preconception consultation Start: 10-18-2024 End: 10-18-2024 Patient encounter status Temitope Bear APRN.CNM Work Phone: [facility] Start: 10-13-2024 End: 10-14-2024 MC Get Medical Advice Hui Valdes APRN.CNP Work Phone: [facility] [place] Comment on above: Refill Refill Request Start: 08-13-2024 End: 08-13-2024 Telephone encounter No Pcp JAZ [facility] Start: 07-27-2024 End: 07-27-2024 ambulatory Hui Podlogar 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 Work Phone: [facility] [place] Comment on above: Hydrocortisone Start: 07-27-2024 End: 07-27-2024 E-mail encounter from caregiver Hui Ortizjen SEBASTIAN.GROUP WORKER Work Phone: [facility] [place] Start: 07-26-2024 End: 07-27-2024 ambulatory Hui Podlogar 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 Work Phone: [facility] [place] Comment on above: Medication Start: 07-08-2024 End: 07-12-2024 ambulatory Hui Podlogar 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 Work Phone: [facility] [place] Comment on above: Depression Start: 07-08-2024 Encounter for genera l adult medical examination without abnormal findings HUI PODLOGYASHIRA [facility] Start: 07-05-2024 End: 07-05-2024 Patient encounter procedure Hui Valdes APRN.GROUP WORKER Work Phone: [facility] [place] Comment on above: Encounter for medica l examination to establish care (Primary Dx); Screening for depression; Encounter for screening examination for other mental health and behavioral disorders; Encounter for immunization; Migraine without aura and without status migrainosus, not intractable; ADHD (attention deficit hyperactivity disorder), combined type; OAB (overactive bladder); Encounter for screening for human papillomavirus (HPV) Start: 07-05-2024 End: 07-05-2024 Patient encounter status Hui Valdes APRN.GROUP WORKER Work Phone: [facility] Start: 07-05-2024 End: 07-05-2024 ambulatory HUI PODLOGAR Facility:[facility] Start: 12-30-2023 ambulatory Shaun Sanchez Work Phone: [facility] Comment on above: Yeast infection Start: 11-07-2023 End: 11-07-2023 ambulatory SHAUN CARLIN Facility:[facility] Start: 07-01-2023 End: 07-01-2023 Patient encounter procedure Shaun Carlin MD Work Phone: Family [facility] Comment on above: Routine physical exa mination (Primary Dx); Migraine without aura and without status migrainosus, not intractable; Hyperlipidemia, mixed; Obesity, Class I, BMI 30-34.9; Ventral hernia without obstruction or gangrene; Onychomycosis; External hemorrhoid; Encounter for immunization Start: 07-01-2023 End: 07-01-2023 Physical examination Shaun Carlin MD Work Phone: [facility] Work Phone: Start: 03-26-2023 End: 03-26-2023 ambulatory [facility] Facility:[facility] Start: 03-26-2023 End: 03-26-2023 Patient encounter procedure Esme Grace MD Work Phone: [facility] Comment on above: Gastroesophageal ref lux disease without esophagitis (Primary Dx); Class 1 obesity with body mass index (BMI) of 34.0 to 34.9 in adult, unspecified obesity type, unspecified whether serious comorbidity present; Ventral hernia without obstruction or gangrene Start: 01-17-2023 Encounter for other preprocedural examination ESME GRACE [facility] Start: 01-17-2023 ambulatory ESME GRACE Facility: [facility] Start: 01-17-2023 End: 07-01-2023 Patient encounter status Esme Grace MD Work Phone: [facility] Start: 01-17-2023 End: 01-17-2023 Subsequent hospital visit by physician Esme Grace MD Work Phone: [facility] Comment on above: Gastroesophageal ref lux disease, unspecified whether esophagitis present [K21.9] Start: 01-01-2023 End: 01-01-2023 [facility] Facility:[facility] Start: 01-01-2023 End: 01-01-2023 Patient encounter procedure Esme Grace MD Work Phone: [facility] Comment on above: Ventral hernia witho ut obstruction or gangrene (Primary Dx); Class 2 severe obesity with serious comorbidity and body mass index (BMI) of 36.0 to 36.9 in adult, unspecified obesity type (HCC); Gastroesophageal reflux disease, unspecified whether esophagitis present; Hypertension, unspecified type Start: 01-01-2023 Telephone encounter Esme parmar MD Work Phone: [facility] Comment on above: Appointment (EGD) Start: 12-25-[address] Shaun Barger ty:[id number] Start: 12-10-2022 End: 12-10-2022 Patient encounter procedure Shaun Carlin MD Work Phone: Family Medicine Comment on above: Hypertension, essent ial (Primary Dx); History of gestational diabetes; Obesity, Class II, BMI 35-39.9; GERD without esophagitis; PUD (peptic ulcer disease); External hemorrhoid Start: 12-10-2022 End: 12-10-2022 Patient encounter procedure Alysha Ruff APRN.GROUP WORKER Work Phone: [facility] Obstetrics & Gynecology Comment on above: Encounter for routin e checking of intrauterine contraceptive device (IUD) (Primary Dx) Start: 11-07-2022 Patient encounter procedure [facility] Provider [facility] Department Start: 11-01-2022 End: 11-01-2022 Patient encounter procedure Alysha Ruff APRN.GROUP WORKER Work Phone: [facility] Obstetrics & Gynecology Comment on above: Encounter for IUD in sertion (Primary Dx); Routine screening for STI (sexually transmitted infection) Start: 10-23-2022 End: 10-23-2022 Patient encounter procedure Tricia Rangel MD Work Phone: [facility] Obstetrics & Gynecology Comment on above: care and examination (Primary Dx); examination or test, unconfirmed Start: 10-22-2022 Telephone encounter [facility] Provider [facility] Comment on above: Returning Patient's Call Start: 10-08-2022 End: 10-08-2022 Patient encounter procedure Shaun Carlin MD Work Phone: Family Medicine Comment on above: Yeast dermatitis (Pr imary Dx); GERD without esophagitis; Hypertension, essential; Migraine without aura and without status migrainosus, not intractable; PUD (peptic ulcer disease); History of gestational diabetes Start: 10-03-2022 ambulatory Shaun Sanchez Work Phone: Family Medicine Comment on above: Thrush Start: 09-19-2022 ambulatory Shaun James Daniel Work Phone: Family Medicine Comment on above: Migraine Start: 09-04-2022 End: 09-04-2022 ambulatory Nst Denair Work Phone: [facility] Obstetrics & Gynecology Comment on above: Nst (Non Stress Test ) Start: 09-04-2022 End: 09-04-2022 Patient encounter procedure Nst Manager [employer] [facility] [place] Work Phone: [email or web address] [facility] Comment on above: 37 weeks gestation o f (Primary Dx); Preexisting hypertension complicating , antepartum; Diet controlled gestational diabetes mellitus (GDM) in second trimester; 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ng , antepartum, unspecified trimester; Group B Streptococcus carrier, antepartum Start: 08-30-2022 End: 08-30-2022 Patient encounter procedure Flora Browning MD Work Phone: [facility] Obstetrics & Gynecology Comment on above: Preexisting hyperten ling complicating , antepartum (Primary Dx); 36 weeks gestation of ; Gestational diabetes mellitus, class A1; 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ng , antepartum, unspecified trimester Start: 08-30-2022 End: 08-30-2022 Patient encounter procedure Ultrasound Manager [employer] [facility] [employer] Work Phone: [facility] Obstetrics & Gynecology Comment on above: AMA (advanced matern al age) multigravida 35+, third trimester; Obesity complicating , third trimester Start: 08-23-2022 End: 08-23-2022 ambulatory Nst [place] Work Phone: [facility] Obstetrics & Gynecology Comment on above: Nst (Non Stress Test ) Start: 08-23-2022 End: 08-23-2022 Patient encounter procedure Nst Manager [employer] [facility] [place] Work Phone: [facility] [employer] [facility] Comment on above: Preexisting hyperten ling complicating , antepartum (Primary Dx); 35 weeks gestation of ; Gestational diabetes mellitus, class A1 Start: 08-22-2022 Refill Honey Surac e PA-C Work Phone: [facility] Obstetrics & Gynecology Comment on above: Refill Request Start: 08-16-2022 Refill Honey Surac e PA-C Work Phone: [facility] Obstetrics & Gynecology Comment on above: Refill Request Start: 08-15-2022 End: 08-15-2022 ambulatory Nst [place] Work Phone: [facility] Obstetrics & Gynecology Comment on above: Nst (Non Stress Test ) Start: 08-15-2022 End: 08-15-2022 Patient encounter procedure Nst Manager Integrity [employer] Work Phone: [employer] Comment on above: Preexisting hyperten ling complicating , antepartum (Primary Dx); 34 weeks gestation of ; Gestational diabetes mellitus, class A1 Start: 08-06-2022 End: 08-06-2022 ambulatory Nst [place] Work Phone: [facility] Obstetrics & Gynecology Comment on above: Nst (Non Stress Test ) Start: 08-06-2022 End: 08-06-2022 Patient encounter procedure Nst Manager Integrity [facility] [employer] Work Phone: [employer] [place] Comment on above: AMA (advanced matern al age) multigravida 35+, third trimester (Primary Dx); Obesity complicating , third trimester; Gestational diabetes mellitus, class A1; Preexisting hypertension complicating , antepartum; 33 weeks gestation of ; Non-stress test reactive Start: 08-02-2022 End: 08-02-2022 ambulatory Nst [place] Work Phone: [facility] Obstetrics & Gynecology Comment on above: Nst (Non Stress Test ) Start: 08-02-2022 End: 08-02-2022 Patient encounter procedure Nst Manager [employer] [facility] [employer] Work Phone: [employer] [place] Comment on above: Preexisting hyperten ling complicating , antepartum (Primary Dx); 32 weeks gestation of ; GDM (gestational diabetes mellitus), class A1 Start: 07-31-2022 Refill Honey Surac e PA-C Work Phone: [facility] Obstetrics & Gynecology Comment on above: Refill Request Start: 07-19-2022 End: 07-19-2022 Patient encounter procedure Honey [employer] PA-C Work Phone: [facility] Obstetrics & Gynecology Comment on above: Gestational diabetes mellitus, class A1 (Primary Dx); Obesity complicating , third trimester; AMA (advanced maternal age) multigravida 35+, third trimester; Preexisting hypertension complicating , antepartum; 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ng , antepartum, unspecified trimester; 30 weeks gestation of Gestational diabetes mellitus, class A1 Start: 07-18-2022 Refill Honey Surac e PA-C Work Phone: [facility] Obstetrics & Gynecology Comment on above: Refill Request Start: 07-05-2022 End: 07-05-2022 Patient encounter procedure Honey Surace PA-C Work Phone: [facility] Obstetrics & Gynecology Comment on above: Gestational diabetes mellitus, class A1 (Primary Dx); 28 weeks gestation of ; Need for [id number] (Tdap) vaccine; Obesity complicating , third trimester; Constipation, unspecified constipation type; 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ng , antepartum, unspecified trimester; AMA (advanced maternal age) multigravida 35+, third trimester; Preexisting hypertension complicating , antepartum Start: 07-05-2022 End: 07-05-[address] Work Phone: [facility] Diabetes [facility] Comment on above: Diet controlled gest ational diabetes mellitus (GDM) in second trimester (Primary Dx) GDM (gestational mitch betes mellitus), class A1; Diet controlled gestational diabetes mellitus (GDM) in second trimester Start: 07-05-2022 End: 07-05-2022 Telemedicine consultation with patient Nurse Diabetes [facility] Start: 06-28-2022 Refill Honey Surac e PA-C Work Phone: [facility] Obstetrics & Gynecology Comment on above: Refill Request Start: 06-28-2022 Telephone encounter Honey S urace PA-C Work Phone: [facility] Obstetrics & Gynecology Comment on above: Results Start: 06-25-2022 Telephone encounter Honey Yelitza urace PA-C Work Phone: [facility] Obstetrics & Gynecology Comment on above: Results Start: 06-21-2022 End: 06-21-2022 Patient encounter procedure Honey Surace PA-C Work Phone: [facility] Obstetrics & Gynecology Comment on above: AMA (advanced matern al age) multigravida 35+, second trimester (Primary Dx); 26 weeks gestation of ; 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ng , antepartum, unspecified trimester; Obesity complicating , first trimester; Preexisting hypertension complicating , antepartum; History of drug use Start: 06-19-2022 Refill Honey Surac e PA-C Work Phone: [facility] Obstetrics & Gynecology Comment on above: Refill Request Start: 06-10-2022 Refill Ольга montanez APRN.CNP Work Phone: [facility] Obstetrics & Gynecology Comment on above: Refill Request Start: 05-19-2022 Refill Honey Surac e PA-C Work Phone: [facility] Obstetrics & Gynecology Comment on above: Refill Request Start: 05-19-2022 Refill Honey Surac e PA-C Work Phone: [facility] Obstetrics & Gynecology Comment on above: Refill Request Start: 05-10-2022 End: 05-10-2022 Patient encounter procedure Honey Surace PA-C Work Phone: [facility] Obstetrics & Gynecology Comment on above: Preexisting hyperten ling complicating , antepartum (Primary Dx); AMA (advanced maternal age) multigravida 35+, second trimester; Obesity complicating , second trimester; Headache in , second trimester; 20 weeks gestation of Start: 05-07-2022 End: 05-07-2022 Patient encounter procedure Us Rm2 Manager [employer] Work Phone: [facility] Maternal Medicine Comment on above: Obesity complicating , second trimester (Primary Dx); Encounter for anatomic survey; 20 weeks gestation of Start: 05-06-2022 End: 05-06-2022 Patient encounter procedure Shaun Carlin MD Work Phone: Family Medicine Comment on above: PUD (peptic ulcer di sease) (Primary Dx); GERD without esophagitis; Preexisting hypertension complicating , antepartum Start: 05-02-2022 Refill Ольга montanez APRN.GROUP WORKER Work Phone: [facility] Obstetrics & Gynecology Comment on above: Refill Request Start: 04-28-2022 ambulatory Shaun Sanchez Work Phone: Family Medicine Comment on above: Ulcers Start: 04-24-2022 Refill Honey Florecita e PA-C Work Phone: [facility] Obstetrics & Gynecology Comment on above: Refill Request Start: 04-16-2022 ambulatory Shaun Sanchez Work Phone: Family Medicine Comment on above: Covid Start: 04-05-2022 End: 04-05-2022 Patient encounter procedure Shaun Carlin MD Work Phone: Family Medicine Comment on above: Hypertension, essent ial (Primary Dx); Preexisting hypertension complicating , antepartum; GERD without esophagitis; Nausea and vomiting of , antepartum; Periumbilical hernia Start: 04-05-2022 End: 04-05-2022 Patient encounter procedure Honey Surreynold PA-C Work Phone: [facility] Obstetrics & Gynecology Comment on above: Multigravida of adva nced maternal age in first trimester (Primary Dx); 15 weeks gestation of ; Nausea/vomiting in ; Preexisting hypertension complicating , antepartum; Obesity complicating , first trimester; History of group B Streptococcus (GBS) infection; 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ng , antepartum, unspecified trimester; Constipation, unspecified constipation type; Vaginal discharge Start: 03-22-2022 Refill Ольга Leslie Connellyutt s DRAPERY HEM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 Work Phone: [facility] Obstetrics & Gynecology Comment on above: Refill Request Start: 03-11-2022 Refill Flora Jaffe MD Work Phone: [facility] Obstetrics & Gynecology Comment on above: Refill Request Start: 02-20-2022 ambulatory Ольга L Klutt s DRAPERY HEM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 Work Phone: [facility] Obstetrics & Gynecology Comment on above: Medication Start: 02-14-2022 End: 02-14-2022 Patient encounter procedure Flora Browning MD Work Phone: [facility] Obstetrics & Gynecology Comment on above: Amenorrhea, secondar y (Primary Dx); Nausea and vomiting during care of mul tigravida, antepartum Start: 02-08-2022 End: 02-08-2022 Patient encounter procedure Shaun Carlin MD Work Phone: Family Medicine Comment on above: Hypertension, essent ial (Primary Dx); GERD without esophagitis; at early stage; Nausea and vomiting of , antepartum; Migraine without aura and without status migrainosus, not intractable Start: 01-30-2022 Refill Shaun Sanchez Work Phone: Family Medicine Comment on above: Refill Request Start: 01-23-2022 Office outpatient vi sit 15 minutes Shaun Carlin Work Phone: [facility] Work Phone: Start: 01-21-2022 Telephone encounter Rolan grigsby DO Work Phone: [facility] Obstetrics and Gynecology Comment on above: Orders; Results Start: 01-18-2022 End: 01-18-2022 Patient encounter procedure Rolan Dexter DO Work Phone: [facility] Obstetrics & Gynecology Comment on above: Women's annual routi ne gynecological examination (Primary Dx); Routine cervical smear; Secondary amenorrhea Start: 01-08-2022 End: 01-08-2022 Patient encounter procedure Shaun Carlin MD Work Phone: [facility] Comment on above: Hypertension, essent ial (Primary Dx); Bronchitis Start: 01-07-2022 Refill Shaun Sanchez Work Phone: [facility] Comment on above: Refill Request Start: 06-18-2021 End: 06-19-2021 Emergency department patient visit Rolan Allen MD Work Phone: [facility] Emergency Dept Comment on above: Acute bronchitis, un specified organism (Primary Dx); Acute serous otitis media of left ear, recurrence not specified; Acute diffuse otitis externa of left ear Start: 12-23-2020 End: 12-24-2020 Emergency department patient visit Kenny Miles Work Phone: [facility] Emergency Dept Comment on above: Less than 8 weeks [place] station of (Primary Dx); Epigastric pain Start: 08-16-2020 Patient encounter procedure Desiree Casarez [facility] Work Phone: Start: 08-05-2019 End: 08-05-2019 Emergency department patient visit [facility] Start: 08-02-2019 Patient encounter procedure Desiree Casarez [facility] Work Phone: Start: 07-09-2019 End: 07-09-2019 Subsequent hospital visit by physician Kacie Short Work Phone: [facility] [place] [facility] Comment on above: Arrived Start: 07-07-2019 End: 07-07-2019 Subsequent hospital visit by physician Kacie Short Work Phone: [facility] Comment on above: Arrived Start: 07-06-2019 End: 07-06-2019 Subsequent hospital visit by physician Kacie Short Work Phone: [facility] Comment on above: Arrived Start: 07-05-2019 End: 07-05-2019 Subsequent hospital visit by physician Kacie Short Work Phone: [facility] [place] [facility] Comment on above: Arrived Start: 07-02-2019 End: 07-02-2019 Subsequent hospital visit by physician Kacie Short Work Phone: [facility] [place] Dept Comment on above: Arrived Start: 06-30-2019 End: 06-30-2019 Subsequent hospital visit by physician Kacie Short Work Phone: [facility] [place] Dept Comment on above: Arrived Start: 06-28-2019 End: 06-28-2019 Subsequent hospital visit by physician Kacie Short Work Phone: [facility] [place] Dept Comment on above: Arrived Start: 06-25-2019 Subsequent hospital visit by physician Kacie Short Work Phone: [employer] Dept Start: 06-23-2019 Subsequent hospital visit by physician Kacie Short Work Phone: [facility] [place] Dept Start: 06-21-2019 End: 06-21-2019 Subsequent hospital visit by physician Kacie Short Work Phone: [facility] [place] Dept Comment on above: Arrived Start: 06-18-2019 End: 06-18-2019 Subsequent hospital visit by physician Kacie Short Work Phone: [facility] [place] Dept Comment on above: Arrived Start: 06-16-2019 End: 06-16-2019 Subsequent hospital visit by physician Kacie Short Work Phone: [facility] [place] Dept Comment on above: Arrived Start: 06-14-2019 End: 06-14-2019 Subsequent hospital visit by physician Kacie Short Work Phone: [facility] [place] [facility] Comment on above: Arrived Start: 06-11-2019 Subsequent hospital visit by physician Kacie Short Work Phone: [employer] [facility] Start: 06-09-2019 Subsequent hospital visit by physician Kacie Short Work Phone: [facility] [place] [facility] Start: 06-07-2019 End: 06-07-2019 Subsequent hospital visit by physician Kacie Short Work Phone: [facility] [place] [facility] Comment on above: Arrived Start: 06-04-2019 Subsequent hospital visit by physician Kacie Short Work Phone: [facility] [place] [facility] Start: 06-02-2019 Subsequent hospital visit by physician Mihai REINOSO ADDICTION OP Start: 05-31-2019 Patient encounter procedure Christina [facility], [place] Start: 05-31-2019 Subsequent hospital visit by physician Mihai REINOSO ADDICTION OP Start: 05-29-2019 Patient encounter procedure Christina [facility], [place] Start: 05-29-2019 End: 05-29-2019 Emergency department patient visit [place] Work Phone: [facility] Emergency Dept Comment on above: Altered mental statu s, unspecified altered mental status type (Primary Dx); Substance abuse (HCC); Depression, unspecified depression type Start: 05-28-2019 End: 05-29-2019 Emergency department patient visit Ese Bliss Work Phone: [facility] Emergency Dept Comment on above: Polysubstance abuse (HCC) (Primary Dx); Altered mental status, unspecified altered mental status type Start: 05-28-2019 Subsequent hospital visit by physician Kacie Short Work Phone: [facility] Start: 05-26-2019 End: 05-26-2019 Subsequent hospital visit by physician Kacie Short Work Phone: [facility] [place] [facility] Comment on above: Arrived Start: 05-24-2019 End: 05-24-2019 Subsequent hospital visit by physician Kacie Short Work Phone: [facility] [place] [facility] Comment on above: Arrived Start: 05-21-2019 End: 05-21-2019 Subsequent hospital visit by physician Kacie Short Work Phone: [facility] [employer] Dept Comment on above: Arrived Start: 05-20-2019 End: 05-20-2019 Subsequent hospital visit by physician Kacie Short Work Phone: [facility] Comment on above: Arrived Start: 05-14-2019 End: 05-14-2019 Subsequent hospital visit by physician Kacie Short Work Phone: [facility] Dept Start: 05-10-2019 Subsequent hospital visit by physician Kacie Short Work Phone: [facility] Start: 05-07-2019 End: 05-07-2019 Subsequent hospital visit by physician Kacie Short Work Phone: [facility] Comment on above: Arrived Start: 04-30-2019 Subsequent hospital visit by physician Kacie Short Work Phone: [facility] Dept Start: 04-29-2019 Telephone encounter Mihai CADEB ADDICTION OP Comment on above: Scheduling Start: 04-28-2019 Subsequent hospital visit by physician Mihai REINOSO ADDICTION OP Start: 04-26-2019 Subsequent hospital visit by physician Kacie Short Work Phone: [facility] Dept Start: 04-23-2019 End: 04-23-2019 Subsequent hospital visit by physician Kacie Short Work Phone: [facility] Dept Comment on above: Arrived Start: 04-21-2019 Subsequent hospital visit by physician Mihai REINOSO ADDICTION OP Comment on above: Canceled (Other) Start: 03-08-2019 End: 03-08-2019 Evaluation and management of inpatient UNKNOWN AA UNKNOWN PCP [facility] Start: 07-10-2018 End: 12-08-2019 Subsequent hospital visit by physician Zi [place] Work Phone: [facility] Dept Start: 06-06-2017 End: 06-07-2017 Emergency department patient visit [facility] Start: 04-19-2017 End: 04-19-2017 Emergency department patient visit [facility] Procedures Date Procedure Procedure Detail Performing Clinician Start: 02-21-2025 Computed tomography of abdomen and pelvis with intravenous contrast Dr. Flora Prieto DO Work Phone: Start: 02-21-2025 Urnls dip stick/tabl et reagent auto microscopy Dr. Flora Prieto DO Work Phone: Start: 02-21-[address] Flora Prieto DO Work Phone: Start: 02-14-[address] Miguel Prieto DO Work Phone: Start: 01-15-2025 Computed tomography of abdomen and pelvis with intravenous contrast Dr. Flora Prieto DO Work Phone: Start: 01-15-[address] Flora Prieto DO Work Phone: Start: 07-05-2024 Adult depression scr eening assessment Hui Valdes 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 Work Phone: Start: 07-01-2023 INFLUENZA VACCINE, A GE 6 MO - 64 YR, QUADRIVALENT (AFLURIA, FLULAVAL, FLUZONE) Shaun Carlin MD Work Phone: Start: 01-17-2023 Urine test visual color cmprsn meths Flora SANTORO Work Phone: Start: 11-01-2022 Insertion intrauteri ne device iud Alysha Ruff 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 Work Phone: Start: 08-30-2022 Urnls dip stick/tabl et rgnt auto w/o microscopy Flora Browning MD Work Phone: Start: 08-30-2022 Us preg uterus after 1st trimest 09/15 gestation Yael Mahmood [employer].CNM Work Phone: Start: 08-23-2022 Urnls dip stick/tabl et rgnt auto w/o microscopy Flora Browning MD Work Phone: Start: 08-06-2022 Urnls dip stick/tabl et rgnt auto w/o microscopy [facility] Provider Start: 07-19-2022 Us preg uterus after 1st trimest 09/15 gestation Honey Surace PA-C Work Phone: Start: 07-05-2022 Urnls dip stick/tabl et rgnt auto w/o microscopy Honey Surace PA-C Work Phone: Start: 06-21-2022 Urnls dip stick/tabl et rgnt auto w/o microscopy Honey Surace PA-C Work Phone: Start: 05-10-2022 Urnls dip stick/tabl et rgnt auto w/o microscopy Honey Surace PA-C Work Phone: Start: 05-07-2022 Us preg uterus after 1st trimest 09/15 gestation Honey Surace PA-C Work Phone: Start: 04-05-2022 Urnls dip stick/tabl et rgnt auto w/o microscopy Honey Surace PA-C Work Phone: Start: 02-14-2022 Antibody screen Flora Jaffe MD Work Phone: Start: 02-14-2022 Urnls dip stick/tabl et rgnt auto w/o microscopy Flora Browning MD Work Phone: Start: 11-19-2021 Adult depression scr eening assessment Shaun Carlin MD Work Phone: Start: 12-23-2020 Us abdominal real ti me w/image limited Kenny Miles Work Phone: Start: 12-23-2020 Us preg uterus real time w/image dcmtn transvag Reynaldo Mandel Work Phone: Start: 12-23-2020 Assay of lipase Reynaldo Mandel Work Phone: Start: 12-23-2020 Assay of troponin quantitative Reynaldo Mandel Work Phone: Start: 12-23-2020 Basic metabolic pane l calcium total Reynaldo Mandel Work Phone: Start: 12-23-2020 Blood count complete auto&auto difrntl wbc Reynaldo Mandel Work Phone: Start: 12-23-2020 Blood typing serologic abo Reynaldo Mandel Work Phone: Start: 12-23-2020 Gonadotropin chorion ic quantitative Reynaldo Mandel Work Phone: Start: 12-23-2020 Hepatic function panel Reynaldo Mandel Work Phone: Start: 12-23-2020 Urnls dip stick/tabl et rgnt auto w/o microscopy Reynaldo Mandel Work Phone: Start: 12-23-2020 Ecg routine ecg w/le ast 12 lds w/i&r Reynaldo Mandel Work Phone: Start: 08-16-2020 Follow-up visit Start: 08-03-2019 IGNATIA DRUG SCREEN Ala n Sanjuana [place] Work Phone: Start: 07-05-2019 Drug screening buprenorphine Hester A JamervinVisitar Work Phone: Start: 07-05-2019 Drug tst prsmv instr mnt chem analyzers pr date Hester A Jalees Work Phone: Start: 07-05-2019 IGNATIA DRUG SCREEN Sha h A Jalees Work Phone: Start: 06-28-2019 Drug screening buprenorphine Hester A Jalewandy Work Phone: Start: 06-28-2019 Drug tst prsmv instr mnt chem analyzers pr date Hester A Jalees Work Phone: Start: 06-28-2019 IGNATIA DRUG SCREEN Sha h A Jalees Work Phone: Start: 06-21-2019 IGNATIA DRUG SCREEN Sha h A Jalees Work Phone: Start: 06-16-2019 IGNATIA DRUG SCREEN Sha h A Jalees Work Phone: Start: 06-07-2019 Drug screening buprenorphine Hester A Jalees Work Phone: Start: 06-07-2019 Drug tst prsmv instr mnt chem analyzers pr date Hester A Jalewandy Work Phone: Start: 06-07-2019 IGNATIA DRUG SCREEN Dileep Short Work Phone: Start: 06-01-2019 Hemoglobin glycosylated a1c Los Garcia Work Phone: Start: 06-01-2019 Lipid panel Los Garcia Work Phone: Start: 05-28-2019 ADD ON LAB TEST Joanne A . Salomón Work Phone: Start: 05-28-2019 Ecg routine ecg w/le ast 12 lds w/i&r Joanne A. Salomón Work Phone: Start: 05-28-2019 Assay of acetaminophen Joanne A. Salomón Work Phone: Start: 05-28-2019 Assay of ethanol Joanne A. Salomón Work Phone: Start: 05-28-2019 Assay of salicylate Agosto ra Holman Salomón Work Phone: Start: 05-28-2019 Blood count complete auto&auto difrntl wbc Joanne A. Salomón Work Phone: Start: 05-28-2019 Comprehensive metabo lic panel Joanne A. Salomón Work Phone: Start: 05-28-2019 Creatine kinase total L leeanneakira Holman Salomón Work Phone: Start: 05-28-2019 Drug screen class list a Joanne Lorenzana Work Phone: Start: 05-28-2019 Urine test visual color cmprsn meths Joanne Holman Salomón Work Phone: Start: 05-28-2019 Urnls dip stick/tabl et rgnt auto w/o microscopy Joanne Lorenzana Work Phone: Start: 05-28-2019 PULSE OXIMETRY SPOT CHECK Joanne Lorenzana Work Phone: Start: 05-26-2019 IGNATIA DRUG SCREEN Dileep Short Work Phone: Start: 05-12-2019 IGNATIA DRUG SCREEN Dileep Cavazos Smithnell Work Phone: Start: 05-07-2019 IGNATIA DRUG SCREEN Dileep Cavazos Jeriwandy Work Phone: Start: 04-14-2019 IGNATIA DRUG SCREEN Anastasia [place] Work Phone: Plan of Treatment Date Care Activity Detail Author Start: 2035 Shingles Vaccine (1 of 2) Shingles Vaccine (1 of 2) [place] Start: 07-05-2032 Urine microalbumin profile [facility] Start: 06-29-2031 Urine microalbumin profile DTAP,TDAP,TD (3 - Td or Tdap) [facility] Start: 07-07-2028 DTaP/Tdap/Td vaccine (2 - Td or Tdap) DTaP/Tdap/Td vaccine (2 - Td or Tdap) [facility] Work Phone: Start: 07-07-2028 DTaP/Tdap/Td vaccine (2 - Td) DTaP/Tdap/Td vaccine (2 - Td) [place] Start: 10-18-2027 Screening for malign ant neoplasm of cervix Cervical Cancer Screening [facility] Start: 12-31-2025 Annual PCP Team Patient Partner melyssa Disease Visit Annual PCP Team Chronic Disease Visit [facility] Start: 12-31-2025 BP Controlled (<130/80) BP Controlle d (<130/80) [facility] Start: 10-18-2025 BP Controlled (<130/80) BP Controlle d (<130/80) [facility] Start: 10-18-2025 End: 10-18-2025 Patient encounter procedure 10/18/2025 12:50 PM EST Appointment Mammogram [address] [place] [address] Mammogram Start: 10-18-2025 End: 10-18-2025 Patient encounter procedure 10/18/2025 10:45 AM EST Office Visit OB/Gynecology [address] [place] [address] Temitope Bear APRN.CN [address] [place] [address] Annual OB/Gynecology Comment on above: Annual Start: 07-08-2025 End: 07-08-2025 Patient encounter procedure 07/08/2025 11:20 AM EDT Office Visit Family Medicine Lei [address] [place] [address] Pod[employer]ui li APRN.GROUP WORKER [address] [place] [address] [facility] [place] Comment on above: Physical Start: 07-05-2025 Annual PCP Team Patient Partner melyssa Disease Visit Annual PCP Team Chronic Disease Visit [facility] Start: 07-05-2025 Anxiety Screening Anxiety Screening [facility] Start: 07-05-2025 Depression Screening Depression Scre [facility] Start: 02-21-2025 [facility] Start: 02-14-2025 Patient discharge [facility] Start: 02-14-2025 Anes lwr abd ventral & incisional hernia repair ANESTH REPAIR OF HERNIA [facility] Start: 02-14-2025 RPR AA HRN 1ST 3-10 NCR/STRN RPR AA HRN 1ST 3-10 NCR/STRN [facility] Start: 02-14-2025 End: 02-14-2025 Patient encounter procedure 02/14/2025 9:00 AM EDT Office Visit OB/Gynecology [address] [place] [address] Frances Baxter MD [address] [place] [address] REMOVE INTRAUTERINE DEVICE OB/Gynecology Comment on above: REMOVE INTRAUTERINE DEVICE Start: 01-18-2025 HPV TESTING HPV TESTING [facility] Start: 01-18-2025 PAP TESTING PAP TESTING [facility] Start: 01-18-2025 Screening for malign ant neoplasm of cervix [facility] Start: 01-15-2025 [facility] Start: 01-03-2025 End: 01-03-2025 Patient encounter procedure 01/03/2025 1:20 PM EDT Office Visit Family Medicine Lei [address] [place] [address] Hui Valdes APRN.GROUP WORKER [address] [place] [address] 6 month follow up [facility] Romario Odom Comment on above: 6 month follow up Start: 12-31-2024 End: 12-31-2024 Patient encounter procedure 12/31/2024 11:40 AM EDT Office Visit [facility] Romario Odom [address] [place] [address] Hui Valdes APRN.GROUP WORKER [address] [place] [address] 6 month follow up [facility] Romario Odom Comment on above: 6 month follow up Start: 11-07-2024 BP Controlled (<130/80) BP Controlle d (<130/80) [facility] Start: 10-18-2024 End: 01-17-2025 Hepatitis B virus surface Ag [Presence] in Serum [facility] Comment on above: Expected: 10/18/2024 , Expires: 01/17/2025 Start: 10-18-2024 End: 01-17-2025 Hepatitis C virus Ab [Presence] in Serum [facility] Comment on above: Expected: 10/18/2024 , Expires: 01/17/2025 Start: 10-18-2024 End: 01-17-2025 HIV 1+2 Ab [Presence] in Serum or Plasma by Immunoassay [facility] Comment on above: Expected: 10/18/2024 , Expires: 01/17/2025 Start: 10-18-2024 End: 01-17-2025 SYPHILIS TREPONEMAL W/REFLEX [facility] Comment on above: Expected: 10/18/2024 , Expires: 01/17/2025 Start: 10-15-2024 End: 10-15-2024 Patient encounter procedure 10/15/2024 7:30 AM EST Office Visit OB/Gynecology [address] [place] [address] Sonya Darden APRN.GROUP WORKER [address] [place] [address] Encounter for screening for human papillomavirus (HPV) [Z11.51] OB/Gynecology Comment on above: Encounter for screen ing for human papillomavirus (HPV) [Z11.51] Start: 10-03-2024 Annual PCP Team Patient Partner melyssa Disease Visit Annual PCP Team Chronic Disease Visit [facility] Start: 10-03-2024 BP Controlled (<130/80) BP Controlle d (<130/80) [facility] Start: 09-27-2024 End: 09-27-2024 Patient encounter procedure 09/27/2024 11:00 AM EST Office Visit Neurology [address] [place] [address] Coral Olsen DO [address] [place], [place] [id number] [facility] Comment on above: Migraine Start: 08-30-2024 End: 08-30-2024 Patient encounter procedure 08/30/2024 10:30 AM EST Office Visit OB/Gynecology [address] [place] [address] Sonya Darden, JAZ.GROUP WORKER [address] [place] [address] Encounter for screening for human papillomavirus (HPV) [Z11.51] OB/Gynecology Comment on above: Encounter for screen ing for human papillomavirus (HPV) [Z11.51] Start: 08-24-2024 End: 08-24-2024 Patient encounter procedure 08/24/2024 1:30 PM EST Office Visit OB/Gynecology [address] [place] [address] Sonya Darden, JAZ.GROUP WORKER [address] [place] [address] Encounter for screening for human papillomavirus (HPV) [Z11.51] OB/Gynecology Comment on above: Encounter for screen ing for human papillomavirus (HPV) [Z11.51] Start: 07-05-2024 End: 10-04-2024 CBC W Auto Differential panel - Blood COMPLETE BLOOD COUNT AND DIFFERENTIAL Lab Routine Encounter for medical examination to establish care Expected: 07/05/2024, Expires: 10/04/2024 [facility] Work Phone: Comment on above: Expected: 07/05/2024 , Expires: 10/04/2024 Start: 07-05-2024 End: 10-04-2024 Comprehensive metabolic 2000 panel - Serum or Plasma COMPREHENSIVE METABOLIC PANEL Lab Routine Encounter for medical examination to establish care Expected: 07/05/2024, Expires: 10/04/2024 [facility] Comment on above: Expected: 07/05/2024 , Expires: 10/04/2024 Start: 07-05-2024 End: 10-04-2024 Lipid 1996 panel - Serum or Plasma LIPID PANEL BASIC Lab Routine Encounter for medical examination to establish care Expected: 07/05/2024, Expires: 10/04/2024 [facility] Comment on above: Expected: 07/05/2024 , Expires: 10/04/2024 Start: 07-01-2024 Annual PCP Team Patient Partner melyssa Disease Visit Annual PCP Team Chronic Disease Visit [facility] Start: 07-01-2024 Covid-19 Vaccine () Covid-19 Vaccine () [facility] Comment on above: Postponed from 05/16 (Declined at this time) Start: 05-16-2024 Covid-19 Vaccine () Covid-19 Vaccine () [facility] Start: 03-26-2024 BP CONTROLLED (<130/80) BP CONTROLLE D (<130/80) [facility] Start: 01-02-2024 BP CONTROLLED (<130/80) BP CONTROLLE D (<130/80) [facility] Start: 12-11-2023 ANNUAL PCP TEAM PROFESSOR/NURSE ANESTHETIST MELYSSA DISEASE VISIT ANNUAL PCP TEAM CHRONIC DISEASE VISIT [facility] Start: 10-08-2023 ANNUAL PCP TEAM PROFESSOR/NURSE ANESTHETIST MELYSSA DISEASE VISIT ANNUAL PCP TEAM CHRONIC DISEASE VISIT [facility] Start: 09-15-2023 Behavioral Health Screening Behavioral Health Screening [facility] Start: 09-04-2023 BP CONTROLLED (<130/80) BP CONTROLLE D (<130/80) [facility] Start: 08-15-2023 BP CONTROLLED (<130/80) BP CONTROLLE D (<130/80) [facility] Start: 08-06-2023 BP CONTROLLED (<130/80) BP CONTROLLE D (<130/80) [facility] Start: 08-02-2023 BP CONTROLLED (<130/80) BP CONTROLLE D (<130/80) [facility] Start: 07-19-2023 BP CONTROLLED (<130/80) BP CONTROLLE D (<130/80) [facility] Start: 06-25-2023 ANNUAL PCP TEAM PROFESSOR/NURSE ANESTHETIST MELYSSA DISEASE VISIT ANNUAL PCP TEAM CHRONIC DISEASE VISIT [facility] Start: 06-25-2023 BP CONTROLLED (<130/80) BP CONTROLLE D (<130/80) [facility] Start: 06-25-2023 HEPATITIS B (1 of 3 - 3-dose series) HEPATITIS B (1 of 3 - 3-dose series) [facility] Comment on above: Postponed from 09/06 (Declined at this time) Start: 06-21-2023 BP CONTROLLED (<130/80) BP CONTROLLE D (<130/80) [facility] Start: 05-16-2023 Influenza vaccination INFLUENZA (#1) [facility] Start: 05-10-2023 BP CONTROLLED (<130/80) BP CONTROLLE D (<130/80) [facility] Start: 05-06-2023 ANNUAL PCP TEAM PROFESSOR/NURSE ANESTHETIST MELYSSA DISEASE VISIT ANNUAL PCP TEAM CHRONIC DISEASE VISIT [facility] Start: 05-06-2023 BP CONTROLLED (<130/80) BP CONTROLLE D (<130/80) [facility] Start: 04-05-2023 COVID-19 VACCINE (2 - Moderna series) COVID-19 VACCINE (2 - Moderna series) [facility] Comment on above: Postponed from 07/30 (Declined at this time) Postponed from 08/27 (Declined at this time) Start: 03-05-2023 BP CONTROLLED (<130/80) BP CONTROLLE D (<130/80) [facility] Start: 02-08-2023 BP CONTROLLED (<130/80) BP CONTROLLE D (<130/80) [facility] Start: 01-17-2023 End: 01-02-2024 EGD DIAGNOSTIC [facility] Work Phone: Comment on above: Expected: 01/17/2023 , Expires: 01/02/2024 1 Occurrences starti ng 01/17/2023 until 01/17/2023 Start: 01-08-2023 ANNUAL PCP TEAM PROFESSOR/NURSE ANESTHETIST MELYSSA DISEASE VISIT ANNUAL PCP TEAM CHRONIC DISEASE VISIT [facility] Start: 11-20-2022 End: 01-20-2023 Choriogonadotropin.beta subunit [Units/volume] in Serum or Plasma HCG QUANTITATIVE Lab Routine examination or test, unconfirmed Expected: 11/20/2022 (Approximate), Expires: 01/20/2023 [facility] Work Phone: Comment on above: Expected: 11/20/2022 (Approximate), Expires: 01/20/2023 Start: 11-19-2022 Adult depression screening assessment DEPRESSION SCREENING [facility] Start: 10-04-2022 HPV TESTING HPV TESTING [facility] Start: 10-04-2022 PAP TESTING PAP TESTING [facility] Start: 09-15-2022 DEPRESSION ASSESSMENT DEPRESSION ASS ESSMENT [facility] Start: 09-09-2022 INDUCTION L&D INDUCTION L&D Procedures Routine Preexisting hypertension complicating , antepartum Expected: 09/09/2022 [facility] Work Phone: Comment on above: Expected: 09/09/2022 Start: 08-06-2022 End: 08-06-2023 OBSTETRIC ULTRASOUND WHI OBSTETRIC ULTRASOUND WHI Anc Imaging Routine AMA (advanced maternal age) multigravida 35+, third trimester Obesity complicating , third trimester Expected: 08/06/2022, Expires: 08/06/2023 [facility] Work Phone: Comment on above: Expected: 08/06/2022 , Expires: 08/06/2023 Start: 06-21-2022 End: 06-21-2023 CBC panel - Blood by Automated count [facility] Work Phone: Comment on above: Expected: 06/21/2022 , Expires: 06/21/2023 Start: 06-21-2022 End: 06-21-2023 GEST GLUC SCREEN, 1-HR, 50 GM, NON-FASTING [facility] Work Phone: Comment on above: Expected: 06/21/2022 , Expires: 06/21/2023 Start: 06-21-2022 End: 06-21-2023 SYPHILIS TOTAL W/REFLEX [facility] Work Phone: Comment on above: Expected: 06/21/2022 , Expires: 06/21/2023 Start: 06-21-2022 End: 08-21-2022 TOX SCREEN ROUT UR TOX SCREEN ROUT UR Lab Routine 26 weeks gestation of History of drug use Expected: 06/21/2022, Expires: 08/21/2022 [facility] Work Phone: Comment on above: Expected: 06/21/2022 , Expires: 08/21/2022 Start: 05-16-2022 Influenza vaccination INFLUENZA (#1) [facility] Start: 02-14-2022 End: 04-16-2022 Acute hepatitis 2000 panel - Serum [facility] Work Phone: Comment on above: Expected: 02/14/2022 , Expires: 04/16/2022 Start: 02-14-2022 End: 04-16-2022 HIV 1+2 Ab [Presence] in Serum or Plasma by Immunoassay [facility] Work Phone: Comment on above: Expected: 02/14/2022 , Expires: 04/16/2022 Start: 02-14-2022 End: 04-16-2022 RUBELLA IGG AB [facility] Work Phone: Comment on above: Expected: 02/14/2022 , Expires: 04/16/2022 Start: 02-14-2022 End: 04-16-2022 SYPHILIS TOTAL W/REFLEX [facility] Work Phone: Comment on above: Expected: 02/14/2022 , Expires: 04/16/2022 Start: 01-18-2022 End: 03-20-2022 Choriogonadotropin.beta subunit [Units/volume] in Serum or Plasma HCG QUANTITATIVE Lab Routine Secondary amenorrhea Expected: 01/18/2022, Expires: 03/20/2022 [facility] Work Phone: Comment on above: Expected: 01/18/2022 , Expires: 03/20/2022 Start: 01-18-2022 End: 03-20-2022 TYPE AND SCREEN TYPE AND SCREEN Blood Bank Routine Secondary amenorrhea Expected: 01/18/2022, Expires: 03/20/2022 [facility] Work Phone: Comment on above: Expected: 01/18/2022 , Expires: 03/20/2022 Start: 12-12-2021 ANNUAL PCP TEAM PROFESSOR/NURSE ANESTHETIST MELYSSA DISEASE VISIT ANNUAL PCP TEAM CHRONIC DISEASE VISIT [facility] Start: 09-15-2021 DEPRESSION ASSESSMENT DEPRESSION ASS ESSMENT [facility] Start: 07-30-2021 COVID-19 VACCINE (2 - Moderna 3-dose series) COVID-19 VACCINE (2 - Moderna 3-dose series) [facility] Start: 07-30-2021 COVID-19 VACCINE (2 - Moderna series) COVID-19 VACCINE (2 - Moderna series) [facility] Start: 05-16-2021 Influenza vaccination Flu vaccine (# 1) [facility] Work Phone: Start: 06-01-2020 A1C test (Diabetic o r Prediabetic) A1C test (Diabetic or Prediabetic) [place] Start: 06-01-2020 HbA1c (Bld) [Mass fraction] A1C test (Diabetic or Prediabetic) [facility] Work Phone: Start: 06-01-2020 Hemoglobin A1c measurement A1C test (Diabetic or Prediabetic) [facility] Work Phone: Start: 07-09-2019 End: 07-09-2019 Appointment 07/09/2019 Appointment Mihai Ly ADDICTION OP Start: 07-07-2019 End: 07-07-2019 Appointment 07/07/2019 Appointment Mihai Ly ADDICTION OP Start: 07-05-2019 End: 07-05-2019 Appointment 07/05/2019 Appointment Mihai Ly ADDICTION OP Start: 07-02-2019 End: 07-02-2019 Appointment 07/02/2019 Appointment Psychiatry Mihai [facility] Start: 06-30-2019 End: 06-30-2019 Appointment 06/30/2019 Appointment Psychiatry Mihai [facility] Start: 06-28-2019 End: 06-28-2019 Appointment 06/28/2019 Appointment Psychiatry Mihai [facility] Start: 06-25-2019 End: 06-25-2019 Appointment 06/25/2019 Appointment Psychiatry Mihai [facility] Start: 06-23-2019 End: 06-23-2019 Appointment 06/23/2019 Appointment Mihai Ly [facility] Start: 06-21-2019 End: 06-21-2019 Appointment 06/21/2019 Appointment Mihai [facility] Start: 06-16-2019 End: 06-16-2019 Appointment 06/16/2019 Appointment Mihai Ly [facility] Start: 06-14-2019 End: 06-14-2019 Appointment 06/14/2019 Appointment Mihai Ly [facility] Start: 06-11-2019 End: 06-11-2019 Appointment 06/11/2019 Appointment Mihai Ly [facility] Start: 06-09-2019 End: 06-09-2019 Appointment 06/09/2019 Appointment Mihai Ly [facility] Start: 06-07-2019 End: 06-07-2019 Appointment 06/07/2019 Appointment Psychiatry Mihai [facility] Start: 06-04-2019 End: 06-04-2019 Appointment 06/04/2019 Appointment Psychiatry Mihai [facility] Start: 06-02-2019 End: 06-02-2019 Appointment 06/02/2019 Appointment Psychiatry Mihai [facility] Start: 05-31-2019 End: 05-31-2019 Appointment 05/31/2019 Appointment Mihai Ly [facility] Start: 05-28-2019 End: 05-28-2019 Appointment 05/28/2019 Appointment Mihai Ly [facility] Start: 05-26-2019 End: 05-26-2019 Appointment 05/26/2019 Appointment Psychiatry Mihai [facility] Start: 05-24-2019 End: 05-24-2019 Appointment 05/24/2019 Appointment Psychiatry Mihai [facility] Start: 05-21-2019 End: 05-21-2019 Appointment 05/21/2019 Appointment Psychiatry Mihai [facility] Start: 05-19-2019 End: 05-19-2019 Appointment 05/19/2019 Appointment Psychiatry Mihai [facility] Start: 05-16-2019 Influenza vaccination Flu vaccine (# 1) [place], [place] Start: 05-14-2019 End: 05-14-2019 Appointment 05/14/2019 Appointment Mihai Ly [facility] Start: 05-12-2019 End: 05-12-2019 Appointment 05/12/2019 Appointment Mihai Ly [facility] Start: 05-10-2019 End: 05-10-2019 Appointment 05/10/2019 Appointment Psychiatry Mihai [facility] Start: 05-07-2019 End: 05-07-2019 Appointment 05/07/2019 Appointment Mihai [facility] Start: 05-06-2019 End: 05-06-2019 Office Visit 05/06/2019 Office Visit Obstetrics and Gynecology Luci Edwards APRN - [address] [place], [address] [place] [address] [phone] [facility] PRACTICE DIRECTOR Start: 05-05-2019 End: 05-05-2019 Appointment 05/05/2019 Appointment Psychiatry Mihai [facility] Start: 05-03-2019 End: 05-03-2019 Appointment 05/03/2019 Appointment Psychiatry Mihai [facility] Start: 04-30-2019 End: 04-30-2019 Appointment 04/30/2019 Appointment Psychiatry Mihai [facility] Start: 04-28-2019 End: 04-28-2019 Appointment 04/28/2019 Appointment [facility] Start: 04-26-2019 End: 04-26-2019 Appointment 04/26/2019 Appointment M[facility]ai [facility] Start: 2015 Screening for malign ant neoplasm of cervix [facility] Work Phone: Start: 2006 Cervical cancer screen Cervical canc er screen [place], [place] Start: 2006 Screening for malign ant neoplasm of cervix [facility] Work Phone: Start: 2003 BP CONTROLLED (<130/80) BP CONTROLLE D (<130/80) [facility] Start: 2001 COVID-19 Vaccine (1) COVID-19 Vaccin e (1) [facility] Work Phone: Start: 1998 Varicella Vaccine (1 of 2 - 13+ 2-dose series) Varicella Vaccine (1 of 2 - 13+ 2-dose series) [place], [place] Start: 1997 COVID-19 Vaccine (1) COVID-19 Vaccin e (1) [facility] Work Phone: Start: 1991 Pneumococcal 0-64 ye ars Vaccine (1 of 1 - PPSV23) Pneumococcal 0-64 years Vaccine (1 of 1 - PPSV23) [place] Start: 1986 Varicella Vaccine (1 of 2 - 2-dose childhood series) Varicella Vaccine (1 of 2 - 2-dose childhood series) [place] Start: 1985 HEPATITIS B (1 of 3 - 3-dose series) HEPATITIS B (1 of 3 - 3-dose series) [facility] BACTERIAL VAGINOSIS NAAT BACTERI AL VAGINOSIS NAAT Lab Routine Screening for STDs (sexually transmitted diseases) 10/18/2024 10:44 AM EST [facility] End: 06-07-2019 Buprenorphine Buprenorphine Lab Routine Once for 1 Occurrences starting 06/07/2019 until 06/07/2019 [place] Comment on above: Once for 1 Occurrenc es starting 06/07/2019 until 06/07/2019 Buprenorphine Buprenorphine La b Routine 06/07/2019 2:46 PM EDT [facility], ID ALEX/TRICHOMONAS NAAT ALEX /TRICHOMONAS NAAT Lab Routine Screening for STDs (sexually transmitted diseases) 10/18/2024 10:44 AM [facility] Chlamydia trachomatis+Neisseria gonorrhoeae DNA [Presence] in Unspecified specimen by CASSIDY with probe detection GC/CHLAMYDIA DNA DET Lab Routine Women's annual routine gynecological examination 01/18/2022 2:05 PM EDT [facility] Work Phone: Chlamydia trachomatis+Neisseria gonorrhoeae DNA [Presence] in Unspecified specimen by CASSIDY with probe detection GONORRHEA/CHLAMYDIA NAAT Lab Routine Screening for STDs (sexually transmitted diseases) 10/18/2024 10:44 AM [facility] Chlamydia trachomatis+Neisseria gonorrhoeae DNA [Presence] in Urine by CASSIDY with probe detection GC/CHLAMYDIA AMPLIF, URINE Microbiology Routine Routine screening for STI (sexually transmitted infection) 11/01/2022 2:01 PM [facility] Work Phone: End: 12-23-2020 Culture, Urine Culture, Urine Microbiology STAT One Time for 1 Occurrences starting 12/23/2020 until 12/23/2020 [facility] Work Phone: Comment on above: One Time for 1 Occur rences starting 12/23/2020 until 12/23/2020 Culture, Urine Culture, Urine Microbiology STAT 12/23/2020 11:11 PM EDT [facility] Work Phone: End: 11-17-2025 DBT Breast - bilateral screening CHARIS SCREENING W JORGE Radiology Routine Encounter for screening mammogram for breast cancer Dense breast tissue 1 Occurrences starting 10/18/2024 until 11/17/2025 [facility] Work Phone: Comment on above: 1 Occurrences starti ng 10/18/2024 until 11/17/2025 EKG 12 Lead [facility] HFELICITAS End: 06-07-2019 Fentanyl, Urine Fentanyl, Urine Lab Routine Once for 1 Occurrences starting 06/07/2019 until 06/07/2019 [facility] Comment on above: Once for 1 Occurrenc es starting 06/07/2019 until 06/07/2019 Fentanyl, Urine Fentanyl, Urine Lab Routine 06/07/2019 2:46 PM EDT [facility] End: 08-21-2022 nonstress test NON-STRESS TEST Procedures Routine Gestational diabetes mellitus, class A1 Obesity complicating , third trimester Preexisting hypertension complicating , antepartum Once per week for 10 Occurrences starting 07/19/2022 until 08/21/2022 [facility] Work Phone: Comment on above: Once per week for 10 Occurrences starting 07/19/2022 until 08/21/2022 nonstress test NON-S TRESS TEST Procedures Routine AMA (advanced maternal age) multigravida 35+, third trimester Obesity complicating , third trimester Gestational diabetes mellitus, class A1 33 weeks gestation of Non-stress test reactive Ordered: 08/06/2022 [facility] Work Phone: Comment on above: Ordered: 08/06/2022 FUNGAL SMEAR FUNGAL SMEAR Microbiology Routine Vaginal discharge Ordered: 04/05/2022 [facility] Work Phone: Comment on above: Ordered: 04/05/2022 Hemoglobin A1c/Hemoglobin.total in Blood HEMOGLOBIN A1C (POC) Lab Routine History of gestational diabetes Ordered: 12/10/2022 [facility] Work Phone: Comment on above: Ordered: 12/10/2022 End: 06-07-2019 [facility] Lab Routine Once for 1 Occurrences starting 06/07/2019 until 06/07/2019 [facility] Comment on above: Once for 1 Occurrenc es starting 06/07/2019 until 06/07/2019 [facility] Lab Routine 06/07/2019 2:46 PM EDT [facility] OB UA DIP B/O (AG) OB UA DIP B/O (AG) Lab Routine 15 weeks gestation of Ordered: 04/02/2022 [facility] Work Phone: Comment on above: Ordered: 04/02/2022 OB UA DIP B/O (AG) OB UA DIP B/O (AG) Lab Routine 28 weeks gestation of Ordered: 07/03/2022 [facility] Work Phone: Comment on above: Ordered: 07/03/2022 OB UA DIP B/O (AG) OB UA DIP B/O (AG) Lab Routine 32 weeks gestation of Ordered: 07/31/2022 [facility] Work Phone: Comment on above: Ordered: 07/31/2022 OB UA DIP B/O (AG) OB UA DIP B/O (AG) Lab Routine 34 weeks gestation of Ordered: 08/14/2022 [facility] Work Phone: Comment on above: Ordered: 08/14/2022 OB UA DIP B/O (AG) OB UA DIP B/O (AG) Lab Routine 35 weeks gestation of Ordered: 08/22/2022 [facility] Work Phone: Comment on above: Ordered: 08/22/2022 OB UA DIP B/O (AG) OB UA DIP B/O (AG) Lab Routine 36 weeks gestation of Ordered: 08/29/2022 [facility] Work Phone: Comment on above: Ordered: 08/29/2022 OB UA DIP B/O (AG) OB UA DIP B/O (AG) Lab Routine 37 weeks gestation of Ordered: 09/03/2022 [facility] Work Phone: Comment on above: Ordered: 09/03/2022 OBSTETRIC ULTRASOUND WHI OBSTETR IC ULTRASOUND WHI Anc Imaging Routine care of multigravida, antepartum Ordered: 01/21/2022 [facility] Work Phone: Comment on above: Ordered: 01/21/2022 OBSTETRIC ULTRASOUND WHI OBSTETR IC ULTRASOUND WHI Anc Imaging Routine 15 weeks gestation of Ordered: 04/05/2022 [facility] Work Phone: Comment on above: Ordered: 04/05/2022 OBSTETRIC ULTRASOUND WHI OBSTETR IC ULTRASOUND WHI Anc Imaging Routine Obesity complicating , second trimester Ordered: 05/07/2022 [facility] Work Phone: Comment on above: Ordered: 05/07/2022 End: 09-13-2022 OBSTETRIC ULTRASOUND WHI OBSTETRIC ULTRASOUND WHI Anc Imaging Routine Gestational diabetes mellitus, class A1 Once per month for 4 Occurrences starting 07/05/2022 until 09/13/2022 [facility] Work Phone: Comment on above: Once per month for 4 Occurrences starting 07/05/2022 until 09/13/2022 PAP FLUID CERVICAL SCREENING PAP FLUID CERVICAL SCREENING Lab Routine Women's annual routine gynecological examination Routine cervical smear Ordered: 01/18/2022 [facility] Work Phone: Comment on above: Ordered: 01/18/2022 PAP TEST PAP TEST Lab Lindsay doll Encounter for gynecological examination (general) (routine) with abnormal findings Screening for cervical cancer Encounter for screening for human papillomavirus (HPV) 10/18/2024 10:44 AM EST [facility] Patient Education [facility] Work Phone: Patient referral [facility] Work Phone: Removal intrauterine device iud REMOVE INTRAUTERINE DEVICE Procedures Routine Encounter for IUD removal Ordered: 12/28/2024 [facility] Work Phone: Comment on above: Ordered: 12/28/2024 SURGICAL PATHOLOGY [facility] Work Phone: Comment on above: Release Upon Orderin g for 1 Occurrences starting 01/17/2023, 1 completed UA DIP, URINE (POC) UA DIP, URIN E (POC) Lab Routine 26 weeks gestation of Ordered: 06/21/2022 [facility] Work Phone: Comment on above: Ordered: 06/21/2022 [facility] Immunizations Immunization Date Immunization Notes Care Provider Citlali boyd 07-05-2024 influenza, seasonal, injectable Hui Ortizkattyashira [employer]ERY [employer]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 Work 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: [facility] 07-01-2023 influenza, injectabl e, quadrivalent, contains preservative Shaun Carlin MD Work Phone: [facility] 07-05-2022 tetanus toxoid, reduced diphtheria toxoid, and acellular pertussis vaccine, adsorbed [facility] 06-25-2022 influenza, injectabl e, quadrivalent, contains preservative Honey Angel PA-C Work Phone: [facility] 06-29-2021 influenza, injectabl e, quadrivalent, contains preservative Shaun Carlin MD Work Phone: [facility] 06-29-2021 tetanus toxoid, reduced diphtheria toxoid, and acellular pertussis vaccine, adsorbed Shaun Carlin MD Work Phone: [facility] 05-03-2020 influenza virus vaccine, unspecified formulation Shaun Carlin MD Work Phone: [facility] 05-03-2020 influenza, injectabl e, quadrivalent, preservative free Shaun Carlin MD Work Phone: [facility] 10-04-2019 influenza, injectabl e, quadrivalent, contains preservative Shaun Carlin MD Work Phone: [facility] 07-07-2018 influenza, injectabl e, quadrivalent, contains preservative Shaun Carlin MD Work Phone: [facility] 07-07-2018 tetanus toxoid, reduced diphtheria toxoid, and acellular pertussis vaccine, adsorbed Shaun Carlin MD Work Phone: [facility] 08-17-2009 novel [id number], preservative-free, injectable Shaun Carlin MD Work Phone: [facility] 04-27-1998 measles, mumps and rubella virus vaccine Shaun Carlin MD Work Phone: [facility] NEGATED: Highlighted row has not occurred!06-04-2019 influenza, injectable, quadrivalent, preservative free Christina Rangel [place], [place] NEGATED: Highlighted row has not occurred!06-01-2019 influenza, injectable, quadrivalent, preservative free Christina Rangel [place], [place] Payers Date Payer Category Payer Self-pay 2022 Medicaid [id number] 2018 Medicaid [employer] [facility] [id number] 2018-Present [phone] [address] [place] [address] Medicaid [id number] 2018 Medicaid [id number] 2014 Unknown [id number] 1985 Unknown [id number] 1985 Unknown [id number] 1985 Unknown [id number] 1959 Unknown [id number] Unknown [employer] Unknown [id number] Unknown [id number] Unknown [id number] Unknown [id number] Social History Date Type Detail Facility Start: 06-27-2018 End: 02-21-2025 Tobacco smoking status NHIS Current every day smoker [facility] Start: 09-15-2000 End: 09-15-2020 History of tobacco use [facility] Start: 06-27-2018 End: 07-05-2024 Cigarettes smoked current (pack per day) - Reported [facility] Start: 06-27-2018 End: 07-05-2024 Alcohol intake No [facility] Start: 1985 [facility] Start: 05-31-2019 End: 06-19-2021 Alcohol intake Current non-drinker of alcohol (finding) [facility] Start: 12-23-2020 End: 07-05-2024 Tobacco smoking status NHIS Former smoker [facility] Work Phone: Start: 12-23-2020 End: 07-05-2024 Tobacco use and exposure Never used [employer] [employer] Work Phone: Start: 11-11-2020 [employer] [employer] Work Phone: Start: 12-15-2021 End: 06-28-2022 Exposure to SARS-CoV-2 (event) Not sure [employer] Work Phone: Start: 12-12-2020 End: 05-06-2022 Tobacco use and exposure Former smokeless tobacco user [facility] Work Phone: End: 10-16-2020 History of tobacco use User of smokeless tobacco [facility] Work Phone: Start: 11-26-2021 End: 12-31-2024 Alcohol intake Ex-drinker (finding) [facility] Start: 11-19-2021 End: 10-01-2022 History SDOH Alcohol Frequency 1 [facility] Start: 11-19-2021 History SDOH Alcohol Std Drinks 98 [facility] Start: 07-07-2018 History SDOH Alcohol Comment rarely [facility] Start: 11-19-2021 End: 10-01-2022 History SDOH Social Connections Phone 5 [facility] Start: 11-19-2021 End: 10-01-2022 History SDOH Social Connections Hinduism 3 [facility] Start: 11-19-2021 History SDOH Physica l Activity MPS 6 [facility] Start: 11-19-2021 End: 10-01-2022 History SDOH Financial 4 [facility] Start: 11-19-2021 End: 10-01-2022 History SDOH Transport Med 2 [facility] Start: 1985 Sex Assigned At Female C [facility] Start: 04-05-2022 End: 04-15-2022 Exposure to SARS-CoV-2 (event) Yes [facility] Start: 09-15-2000 End: 09-15-2020 History of tobacco use Current smoker [facility] Work Phone: Start: 10-01-2022 History SDOH Alcohol Std Drinks 0 [facility] Are you now , , , , never or living with a partner? [facility] How often to you hav e a drink containing alcohol? Never [facility] How many standard drinks containing alcohol do you have on a typical day? Patient does not drink [facility] How hard is it for y ou to pay for the very basics like food, housing, medical care, and heating Not very hard [facility] Do you feel stress - tense, restless, nervous, or anxious, or unable to sleep at night because your mind is troubled all the time - these days [OSQ] Not at all [facility] (I/We) worried wheth er (my/our) food would run out before (I/we) got money to buy more. Never true [facility] In the past 12 month s, was there a time when you were not able to pay the mortgage or rent on time? No [facility] Start: 05-15-2020 Gender identity Identifies as female gender (finding) [facility] Start: 05-15-2020 Sexual orientation Heterosexual (rosario cardenas) [facility] Do you feel stress - tense, restless, nervous, or anxious, or unable to sleep at night because your mind is troubled all the time - these days [OSQ] Only a little [facility] NEGATED: Highlighted row - - [facility] Work Phone: NEGATED: Highlighted row Not [facility] Medical Equipment Procedure Code Equipment Code Equipment Original Text Equipment Identifier Dates Repair, hernia, ventral, with mesh insertion MESH,VENTLEX ST MED 6.4CM FDA Start: 02-14-2025 Start: 06-28-2022 End: 09-01-2022 Comment on above: Use as instructed 1 Strip four times d aily. Use as instructed Goals Date Patient Goal Desired Activity /State Functional Status Date Assessment Result Facility 02-14-2025 Functional status Ambulates [facility] Work Phone: 12-31-2024 Total score [AUDIT-C] 0 01/01/20 12:33 PM EDT User, [email or web address] [facility] 12-31-2024 Within the last year , have you been humiliated or emotionally abused in other ways by your partner or ex-partner? No 12/31/2024 12:33 PM EDT User, Johniehart No [facility] 12-31-2024 Within the last year , have you been afraid of your partner or ex-partner? No 12/31/2024 12:33 PM EDT User, Mychart No [facility] 12-31-2024 Within the last year , have you been raped or forced to have any kind of sexual activity by your partner or ex-partner? No 12/31/2024 12:33 PM EDT User, Mychart No [facility] 12-31-2024 Within the last year , have you been kicked, hit, slapped, or otherwise physically hurt by your partner or ex-partner? No 12/31/2024 12:33 PM EDT User, Mychart No [facility] 12-31-2024 How often to you hav e a drink containing alcohol? Never 12/31/2024 12:33 PM EDT User, Mychart Never [facility] 12-31-2024 Functional status Patient does n ot drink 12/31/2024 12:33 PM EDT User, [email or web address] Patient does not drink [facility] 12-31-2024 How often do you hav e 6 or more drinks on 1 occasion? Never 12/31/2024 12:33 PM EDT User, Mychart Never [facility] 12-24-2024 Total score [AUDIT-C] 0 12/25/19 12:37 PM EDT User, Mychart [facility] 12-24-2024 Within the last year , have you been humiliated or emotionally abused in other ways by your partner or ex-partner? No 12/24/2024 12:37 PM EDT UserKrystian No [facility] 12-24-2024 Within the last year , have you been afraid of your partner or ex-partner? No 12/24/2024 12:37 PM EDT User, Krystian No [facility] 12-24-2024 Within the last year , have you been raped or forced to have any kind of sexual activity by your partner or ex-partner? No 12/24/2024 12:37 PM EDT UserKrystian No [facility] 12-24-2024 Within the last year , have you been kicked, hit, slapped, or otherwise physically hurt by your partner or ex-partner? No 12/24/2024 12:37 PM EDT UserKrystian No [facility] 12-24-2024 How often to you hav e a drink containing alcohol? Never 12/24/2024 12:37 PM EDT User, Krystian Never [facility] 12-24-2024 Functional status Patient does n ot drink 12/24/2024 12:37 PM EDT User, Krystian Patient does not drink [facility] 12-24-2024 How often do you hav e 6 or more drinks on 1 occasion? Never 12/24/2024 12:37 PM EDT User, Krystian Never [facility] 09-14-2022 Are you blind, or do you have serious difficulty seeing, even when wearing glasses No 09/14/2022 8:45 AM Sonya Espitia, HARRIET No [facility] 09-14-2022 Do you have serious difficulty walking or climbing stairs No 09/14/2022 8:45 AM Sonya Espitia, HARRIET No [facility] 09-14-2022 Do you have difficul ty dressing or bathing No 09/14/2022 8:45 AM Sonya Espitia, HARRIET No [facility] 09-14-2022 Because of a physica l, mental, or emotional condition, do you have difficulty doing errands alone such as visiting a physician's office or shopping No 09/14/2022 8:45 AM Sonya Espitia RN No [facility] 03-28-2022 Are you deaf, or do you have serious difficulty hearing No 03/28/2022 1:25 PM EDT Carlene Francis, HARRIET No [facility] NEGATED: Highlighted row Functional performance Functional status health issues are not documented [facility] Work Phone: Mental Status Date Assessment Result Facility 02-14-2025 Cognitive function Voice/Name [facility] Work Phone: 09-14-2022 Because of a physical, mental, or emotional condition, do you have serious difficulty concentrating, remembering, or making decisions No 09/14/2022 8:45 AM Sonya Espitia RN No [facility] NEGATED: Highlighted row Cognitive function [Interpretation] Cognitive status health issues are not documented [facility] Work Phone: Clinical Notes 10-30-2021 to 02-21-2025 Note Date & Type Note Facility 02-21-2025 Discharge summary [facility] 02-21-2025 Radiology Diagnostic study note [facility] Imaging Services [address] [place], [place] [address] Abdomen/Pelvis W IV Cont ONLY MR#: [id number] Acct: [id number] Name: SIA OLIVERA Rep #: [id number] : 1985 F 39 From: Serjio Curry MD PCP: Hui Valdes, 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 Status: REG E R Study:Abdomen/Pelvis W IV Cont ONLY Date of E xam: 02/21/25 Exam# [id number] Ordering Dr: Yvon Do DO PROCEDURE: ABDOMEN/PELVIS W IV CONT ONLY 02/21/2025 REASON FOR EXAM: ABDOMINAL PAIN, RECENT HERNIA SURGERY TECHNIQUE: Abdomen and pelvis CT with intravenous contrast. Coronal and Sagittal reconstruction series were provided. PATIENT PREPARATION: Per protocol ORAL CONTRAST TYPE: None. CONTRAST: Isovue-300 VOLUME: 100 mL One or more dose reduction techniques were used (e.g., Automated exposure control, adjustment of the mA and/or kV according to patient size, use of iterative reconstruction technique. RADIATION DOSE SUMMARY: CTDlvol: 13.2 mGy DLP: 698.31 mGycm COMPARISON: Prior examination dated January 15, 2025. FINDINGS: Lung bases: Unremarkable Liver: Normal size. No mass. Gallbladder: Several calcified gallstones. Spleen: Unremarkable Pancreas: Normal size without evidence of mass surrounding inflammation or ductal dilation. Adrenals: Unremarkable Kidneys: Normal renal sizes. No hydronephrosis. Bladder: The bladder is empty. Reproductive Organs: IUD is seen within the uterus. Bowel: Unremarkable Appendix: Unremarkable Lymph nodes: Unremarkable Vasculature: The abdominal aorta and IVC are normal. Peritoneum / Retroperitoneum: The patient is status post ventral hernia repair. Postsurgical changes are seen. There is evidence of a 3.2 cm by 2.4 cm fluid collection deep to the skin surface within the subcutaneous tissue at the level of the umbilicus most likely representing a small postoperative seroma. Bones: Degenerative changes at the L4-L5 and L5-S1 levels. CT/Abdomen/Pelvis W IV Cont ONLY IMPRESSION: Status post ventral hernia repair with a findings suggestive of a small postoperative seroma in the subcutaneous tissues at the level of the incision. The remainder of the examination is unchanged. Multiple gallstones. Reading Location: [place] [address] CC: KOSTA Valdes; Dr. Yvon Becker DO ~ Bench Assembly Inspector: Signed [facility] 02-21-2025 Discharge summary Note Date/Time February 21, 2025 3:58pm [facility] Medical Records Department [address] [place] [address] Emergency Department Summary 02/21/25 MR#: [id number] Acct: [id number] Name: SIA OLIVERA Rep #:[id number] : 1985 39 From: Yvon ponce DO PCP: KOSTA Gomez Status:REG E R Location: ED HPI History of Present Illness Chief Complaint: Abd Pain Narrative Narrative: Chief complaint and HPI: Abdominal pain. 39-year-old female with past medical history of recent ventral hernia repair presents for evaluation of abdominal pain. On chart review, patient had an open ventral hernia repair with mesh on 02/14/[address] Rodriguez for chronically incarcerated ventral hernia. Patient states she has been doing well up until today. She states yesterday she felt great in which she does admit that she was more active. She states today she developed increased abdominal pain. She states majority of the pain is in the right upper quadrant. She denies any fever, chills, shortness of breath, chest pain, nausea, vomiting, diarrhea, dysuria. States she has been eating and drinking well. Review of systems: See HPI Medications: As listed on the chart Allergies: As listed on the chart PFSH: Per chart Vital signs: As listed on the chart. Reviewed. Physical exam: Gen: A&O x3, NAD Head: Normocephalic, atraumatic Eyes: No sclera icterus, conjunctiva clear ENT: Moist mucous membranes Neck: Trachea midline, No JVD CV: RRR, no murmurs, no peripheral edema Resp: Lungs CTA BL, no w/r/c GI: Abd soft, non-distended, mildly tender to palpation diffusely which is appropriate for recent surgery, no Arana sign, Midline incision healing well without signs of infection or recurrent hernia, no r/r/g : No CVA tenderness Musc: Full ROM, no deformity Skin: Warm, dry Neuro: Alert, oriented, grossly intact, sensation intact Psych: Cooperative, appropriate mood and affect [facility] Medical History Wears glasses Wears dentures Depression Bladder disease Low iron Back pain Migraine headache History of ulceration Shortness of breath on exertion Vapes nicotine containing substance Hx of Tachycardia IUD (intrauterine device) in place Home Medications ?Medication ?Instructions ?Recorded ?Last Taken ?Type atomoxetine 80 mg capsule 80 mg PO QAM 02/02/25 Unknow n History metoprolol succinate 25 mg 25 mg PO QDAY HEART RATE 02/20/25 History tablet,extended release 24 hr solifenacin 10 mg tablet 5 mg PO QDAY OAB 02/02/25 History venlafaxine 75 mg capsule,extended 75 mg PO QAM Unknown History release 24 hr acetaminophen 500 mg capsule 1,000 mg PO Q6H PRN pain 02/21/25 02/21/25 History sumatriptan succinate 100 mg tablet 100 mg PO Q2H PRN migraine 02/21/25 Unknown History Allergy/AdvReac Type Severity Reaction Status Date / Time amoxicillin Allergy Unknown unknown Verified 02/21/25 13:20 Family History Son Asthma Grandmother Diabetes Breast cancer Father Hypertension Surgical History History of esophagogastroduodenoscopy (EGD) Previous section Social History Smoking Status: Current every day smoker tobacco type: e-cigarettes quit status: not considering quitting EXAM Physical Exam Const Vital Signs: 02/21/25 13:19 02/21/25 13:21 02/21/25 14:21 Temperature 98.7 F 98.7 F 98.7 F Temperature Source Oral Oral Oral Pulse Rate 76 76 73 Respiratory Rate 18 18 16 Blood Pressure 139/103 H 139/103 H 145/89 H Blood Pressure Mean 115 115 107 Pulse Ox 100 100 100 Oxygen Delivery Method Room Air Room Air Room Air 02/21/25 15:00 Temperature 98.7 F Temperature Source Oral Pulse Rate 73 Respiratory Rate 16 Blood Pressure 138/97 H Blood Pressure Mean 110 Pulse Ox 100 Oxygen Delivery Method Room Air MDM MDM MDM Narrative Medical decision making narrative: 39-year-old female with past medical history of recent ventral hernia repair presents for evaluation of abdominal pain. History was taken by patient as wellas medical record. See HPI. Patient is status post open ventral hernia repair with mesh on 02/14/2025 with general surgery. Differential diagnosis includes butis not limited to postoperative pain, UTI, cholecystitis, biliary colic, pancreatitis, abscess. NS bolus, morphine, Zofran ordered for symptoms. CBC without leukocytosis or anemia. CMP unremarkable without significant electrolyte abnormality or BERNA. Patient's AST is mildly elevated at 34 but ALT,alkaline phosphatase, and bilirubin unremarkable. Lipase unremarkable. UA negative for UTI. CT abdomen pelvis shows status post ventral hernia repair withfindings suggestive of small postoperative seroma in the subcutaneous tissue at the level of the incision. Multiple gallstones without cholecystitis. On reevaluation, patient's symptoms have improved. I suspect her symptoms are secondary to postoperative pain with increased activity yesterday. Given that patient recently did have surgery, I spoke to Dr. Gacria. Agrees with discharge home. Has an appointment with general surgery on Friday. Return precautions explained. She confirmed understand the plan. Patient stable to discharge home. Impression: 1. Abdominal pain 2. History of recent open ventral hernia repair Lab Data Labs: Laboratory Results - last 24 hr 02/21/25 02/21/25 02/21/25 14:05 14:23 14:35 WBC 9.0 RBC 4.40 Hgb 13.5 Hct 41.0 MCV 93.2 MCH 30.7 MCHC 32.9 RDW Std Deviation 42.2 RDW Coeff of [place] 12.2 Plt Count 390 MPV 9.3 Immature Gran % (Auto) 0.200 Neut % (Auto) 59.2 Lymph % (Auto) 29.7 [place] % (Auto) 8.0 Eos % (Auto) 2.0 Baso % (Auto) 0.9 Absolute Neuts (auto) 5.3 Absolute Lymphs (auto) 2.68 Nucleated RBC % 0 Sodium 140 Potassium 5.0 Chloride 106 Carbon Dioxide 22.8 Anion Gap 11 BUN 11 Creatinine 0.73 Estim Creat Clear Calc 102.27 Est GFR (MDRD) Non-Af 108 BUN/Creatinine Ratio 15.4 Glucose 94 Lactic Acid 1.8 Calcium 9.2 Total Bilirubin 0.20 AST 34 H ALT 16 Alkaline Phosphatase 66 Total Protein 6.9 Albumin 4.0 Globulin 2.9 Albumin/Globulin Ratio 1.4 Lipase 46 Urine Color Straw Urine Clarity Clear Urine pH 7.0 Ur Specific [place] 1.010 Urine Protein Negative Urine Glucose (UA) Normal Urine Ketones Negative Urine Occult Blood Negative Urine Nitrite Negative Urine Bilirubin Negative Urine Urobilinogen Normal Ur Leukocyte Esterase Negative Urine RBC 0-5 SEEN Urine WBC 0-5 SEEN Ur Squamous Epith Cells 0-5 SEEN Urine Bacteria 0 SEEN Urine Mucus 0 SEEN Radiography Diagnostic Testing: Clinical Impression(s) from Imaging Studies Abdomen/Pelvis CT 02/21/25 15:06 IMPRESSION: Status post ventral hernia repair with a findings suggestive of a small postoperative seroma in the subcutaneous tissues at the level of the incision. The remainder of the examination is unchanged. Multiple gallstones. Reading Location: [place] [address] Discharge Plan Triage Chief Complaint: Abd Pain ED Provider: Yvon Becker Dx/Rx/DC Orders Clinical Impression: Abdominal pain Instructions: ED Abdominal Pain Unkn Cause Fem Prescriptions: No Action solifenacin 10 mg tablet 5 mg PO QDAY atomoxetine 80 mg capsule 80 mg PO QAM venlafaxine 75 mg capsule,extended release 24hr 75 mg PO QAM metoprolol succinate 25 mg tablet extended release 24 hr 25 mg PO QDAY sumatriptan succinate 100 mg tablet 100 mg PO Q2H PRN (Reason: migraine) acetaminophen 500 mg capsule 1,000 mg PO Q6H PRN (Reason: pain) Primary Care Provider: Hui Valdes NP Referrals: Desean Rodriguez MD [Med Staff - Active Staff] - 3-5 Days Activity Restrictions/Additional Instructions: Keep your appointment on Friday with general surgery. Return back to the ED if symptoms change or worsen. Print Language: French Disposition Disposition: Home, Self Care What to do if you have Problems For any increased pain, shortness of breath, bleeding, nausea or vomiting, chestpain, or any unexpected problems, contact your Primary Care Provider. Call [facility] ([phone]) or report to the closest Emergency Room. Call 911 if necessary. 02/21/25 1558 <Electronically signed by Yvon Becker DO> Cosigner Signature (if applicable): CC: KOSTA Valdes ~ Signed [facility] Work Phone: 1(280) 569-772006-06-2025 Hospital Discharge instructions Additional Instructions Keep your appointment on Friday with general surgery. Return back to the ED if symptoms change or worsen.[facility] Work Phone: 1(790) 828-666106-02-2025 Consult note [facility] Medical Records Department [address] [place] [address] Anesthesia Postop Eval II 02/14/25 1637 MR#: [id number] Acct: [id number] Name: SIA OLIVERA Rep #:[id number] : 1985 39 From: Guille Shin MD PCP: Hui Podlogar, 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 Status:REG S DC Y Race: C Location: [facility] Anesthesia Postop Eval I Sum Postop Eval Completion status Anesthesia document: Postop Eval 1 completed: Yes Anesthesia Postop Eval I Summary Anesthesia Postop Eval I Summary: Anesthesia Postop Eval I: Assessment Summary Airway patent Yes 02/14/25 15:55 COOK HOUSE SUPERVISOR.SOBR Spontaneous unlabored Yes 02/14/25 15:55 COOK HOUSE SUPERVISOR.SOBR respirations Mental status Awake,Calm 02/14/25 15:55 COOK HOUSE SUPERVISOR.SOBR nausea No 02/14/25 15:55 COOK HOUSE SUPERVISOR.SOBR Vomiting No 02/14/25 15:55 COOK HOUSE SUPERVISOR.SOBR Anesthesia Postop Eval I: Fluid Summary Crystalloid volume administer 1,000 02/14/25 15:55 COOK HOUSE SUPERVISOR.SOBR (ml) Colloids volume administered ( ml) Blood Product volume administered (ml) Total IV fluid infused 1,000 02/14/25 15:55 COOK HOUSE SUPERVISOR.SOBR Anesthesia Postop Eval I: Summary Notes Anesthesia Complication No 02/14/25 15:55 COOK HOUSE SUPERVISOR.SOBR Anesthesia Complication Comment: Post-operative progress note Anesthesia: Postop Eval II Evaluation Mental status: Awake Pain Level: 0 nausea: No Vomiting: No Complications Anesthesia Complication: No 02/14/25 1637 > Date _ Guille Shin MD Cosigner Signature: Date CC: ~ Signed [facility]06-02-2025 Consult note Author Royce Gomez [facility] Note Date/Time February 14, 2025 3:55p [facility] Medical Records Department [address] [place] [address] Anesthesia Postop Eval I 02/14/25 1554 MR#: [id number] Acct: [id number] Name: SIA OLIVERA Rep #:[id number] : 1985 39 From: Royce SORENSEN PCP: KOSTA Gomez Status:REG S DC Y Race: C Location: [place] [address] Anesthesia: Postop Eval I Current Vital Signs Temperature: 97.8 F Pulse Rate: 88 Blood Pressure: 117/81 Respiratory Rate: 16 Pulse Ox: 100 Oxygen Delivery Method: Non-Rebreather Oxygen Flow Rate (L/min): 8 Assessment Airway patent: Yes Spontaneous unlabored respirations: Yes Mental status: Awake and Calm nausea: No Vomiting: No Anesthesia Complication: No Fluid Hydration Crystalloid volume administer (ml): 1,000 Total IV fluid infused: 1,000 Progress Note Anesthesia document: Postop Eval 1 completed: Yes 02/14/25 4936 <Electronically signed by Royce Gomez CRNA> Date _ Royce Gomez CRNA Cosigner Signature: Date CC: ~ Signed [facility] Work Phone: 1(354) 900-326506-02-2025 Discharge summary Author Desean Rodriguez [facility] Note Date/Time February 14, 2025 3:46p [facility] Medical Records Department [address] [place] [address] Instructions for Home/Discharge Instructions 02/14/25 1536 MR#: [id number] Acct: [id number] Name: SIA OLIVERA Rep #:[id number] : 1985 39 From: Desean Rodriguez MD PCP: KOSTA Gomez Status:REG S DC Discharge Instructions Diet Discharge Diet: Light diet - advance as tolerated Activity Discharge Activity: May Shower May shower in (days): 1 Ice area for (Minutes): 30 Lifting Restrictions: Keep lifting under 20 pounds for 6 weeks Dressing / Incision Call your doctor if your incision/area has: Continuous Slow Oozing, Sudden Increased Bleeding, Increased Pain/ Swelling, Increased Redness, Foul Smelling Discharge and Swelling at the incision site Call your doctor if you observe: Fever of 101 or Higher Cleanse incision/area with: Soap & Water Additional Dressing/Incision Instructions:: Wear abdominal binder for comfort Follow Up Care Please Follow Up With: Desean Rodriguez MD When: 2 weeks. Please call office to schedule appointment Test Results: Test results from this visit will be discussed in further detail at your follow- up appointment, if applicable. Discharge Plan Admission Primary Reason for Your Visit: Ventral hernia repair with mesh Attending Provider: Desean Rodriguez Primary Care Provider: Hui Valdes NP Instructions Print Language: French Discharge Orders/Prescriptions Prescriptions: New oxycodone-acetaminophen [Percocet] 5-325 mg tablet 1 tab PO Q8H PRN (Reason: pain) 4 Days Qty: 10 0RF Continued sumatriptan succinate 25 mg tablet 25 mg PO ONCE PRN (Reason: migraine headache) solifenacin 10 mg tablet 5 mg PO QDAY atomoxetine 80 mg capsule 80 mg PO QAM venlafaxine 75 mg capsule,extended release 24hr 75 mg PO QAM metoprolol succinate 25 mg tablet extended release 24 hr 25 mg PO QDAY Referrals / Follow Up: Hui Valdes NP, 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 [Primary Care Provider] - Disposition Disposition (needs filled in before D/C Order can be placed): Home, Self Care 02/14/25 1546<Electronically signed by Desean Rodriguez MD>Desean Rodriguez MD CC: 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 Hui Ortizlogar ~ Signed [facility] Work Phone: 1(635) 379-338406-02-2025 History and physical note Author Desean Rodriguez [facility] Note Date/Time February 14, 2025 2:17p m [facility] Medical Records Department [address] [place] [address] History & Physical Exam 02/14/25 1414 MR#: [id number] Acct: [id number] Name: SIA OLIVERA Rep #:[id number] : 1985 39 From: Desean Rodriguez MD PCP: OLY GomezC Status:REG S DC Location: [facility]-1 HPI - General General Date of Admission: 02/14/25 Date of Service: 02/14/25 Chief Complaint: Ventral hernia HPI Narrative SIA OLIVERA, is a 39 F who presents for elective repair of a ventral hernia just above the umbilicus. [facility] Medical History Wears glasses Wears dentures Depression Bladder disease Low iron Back pain Migraine headache History of ulceration Shortness of breath on exertion Vapes nicotine containing substance Hx of Tachycardia IUD (intrauterine device) in place Home Medications ?Medication ?Instructions ?Recorded ?Last Taken ?Type atomoxetine 80 mg capsule 80 mg PO QAM 02/02/25 Unknow n History metoprolol succinate 25 mg 25 mg PO QDAY HEART RATE 02/14/25 09:00 History tablet,extended release 24 hr solifenacin 10 mg tablet 5 mg PO QDAY OAB 02/02/25 09:00 History sumatriptan succinate 25 mg tablet 25 mg PO ONCE PRN m igraine headache 02/02/25 Unknown History venlafaxine 75 mg capsule,extended 75 mg PO QAM Unknown History release 24 hr Allergy/AdvReac Type Severity Reaction Status Date / Time amoxicillin Allergy Unknown unknown Verified 02/14/25 13:23 Family History Son Asthma Grandmother Diabetes Breast cancer Father Hypertension Surgical History History of esophagogastroduodenoscopy (EGD) Previous section Social History Smoking Status: Current every day smoker tobacco type: e-cigarettes quit status: not considering quitting Vital Signs Vital Signs Vital Signs: 02/14/25 13:25 02/14/25 13:25 02/14/25 13:42 Temperature 98.0 F 98.0 F Temperature Source Temporal Pulse Rate 75 75 Respiratory Rate 18 18 Respiratory Pattern Normal Blood Pressure 142/98 H 142/98 H Blood Pressure Mean 112 Blood Pressure Source Monitor Blood Pressure Position Sitting Blood Pressure Location Left Arm Pulse Ox 98 98 Oxygen Delivery Method Room Air Room Air Weight Weight: 160 lb 14.999 oz Body Mass Index (BMI) 27.6 Physical Exam Const alert, oriented x3 and no apparent distress GI GI Narrative: Hernia unchanged Results Lab / Micro Data Labs: Laboratory Results - last 24 hr 02/14/25 13:00: Urine Test Negative Assessment & Plan Assessment/Plan (1) Ventral hernia: PLAN: Plan The patient is a 39-year-old female with a fat-containing hernia just above the umbilicus. She states she has had this for some time. She was seen in the office and I recommended surgical repair. We discussed the details of the planned surgery including risk benefits and alternatives and she wished to proceed. This will begin momentarily Charges/Coding Visit Charges Inpatient E&M: 33749 Init Hosp L2 02/14/25 1417 <Electronically signed by Desean Rodriguez MD> Cosigner Signature (if applicable): CC: 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 Hui Valdes; Dr. Desean Rodriguez MD~ Signed [facility] Work Phone: 1(472) [phone] Procedure note [facility] Medical Records Department [address] [place] [address] Operative Report 02/14/25 1546 MR#: [id number] Acct: [id number] Name: SIA OLIVERA Rep #:[id number] : 1985 39 From: Desean Rodriguez MD PCP: Hui Valdes, OLYC Status:REG S HI Location: [place] [address] Problems Associated Problem List Diagnoses (1) Ventral hernia: Procedures Digestive 40xxx-49xxx: 47093 RPR AA HRN 11-22 NCR/STRN Operative Report (Standard) Operative Information Date of Procedure: 02/14/25 Pre-Operative Diagnosis: Ventral hernia -chronically incarcerated Post-Operative Diagnosis: Same Surgery/Procedure Performed: Open ventral hernia repair with mesh casting sorter: Yes Vice President Corporate Communications: Kristine Larose Tasks completed by assistant spa manager: Closing and Retracting Additional assistant professor of psychology?: No Type of Anesthesia: General and Local RN Documented Start/Stop Times: Operation Date: 02/14/25 14:30 Case Time Into Pre-Op 02/14/25 13:03 Out of Pre-Op 02/14/25 14:24 Anesthesia Start 02/14/25 14:28 Into Room 02/14/25 14:28 Procedure Start 02/14/25 14:48 Procedure End 02/14/25 15:43 Procedure Start Time: 14:48 Procedure Stop Time: 15:43 Select all DRAINS/GRAFTS/IMPLANTS that apply: Prosthetic device Prosthetic device details: Ventralex ST 6.4 cm mesh Special Medications: 2 g Ancef IV Estimated Blood Loss: Minimal Specimen collected: Yes Description of specimen(s) removed: Hernia sac and contents Description of surgery: The patient is a 39-year-old female who is recently seen through the office witha ventral hernia. This was just above the umbilicus. The overall dimensions ofthe hernia bulge was about 8 cm. I had her undergo a CT scan of the abdomen. This revealed a fat-containing hernia with a fascial defect sizeabout 2-1/2 to 3 cm based on estimation of the images. I offered her an open repair with mesh. We discussed the details of the planned procedure and she wished to proceed. She was brought to the operating room today following informed consent. Preoperative antibiotics were given and a timeout was performed. She was placedsupine on the operative table with arms outstretched and arm boards. The abdomen is then prepped and draped the usual sterile manner. Local anesthetic was infiltrated into the region just above the umbilicus. #15 blade was then used to make the skin incision. Bovie electrocautery was then used dissect downthrough the subcutaneous tissues. The fat-containing hernia and sac were identified. This was freed up. This hernia was partially reducible but there was components that were nonreducible and thus chronically incarcerated. The dissection was carried down to the level of the fascia. The hernia sac was excised. The hernia contents were omental fat. This was freed up. Attempts were made to reduce the hernia however this was unsuccessful. Some of the omentum was excised. Christina clamps and ties were used for hemostasis purposes. The hernia contents were then able to be easily reduced. The fascial defect wasabout 3 cm in greatest dimension. I then selected a VentralexST circular mesh with a diameter of 6.4 cm. This was placed in antibiotic solution. This was then inserted 0 Nurolon was then used to secure the mesh in place and 4 points. This mesh laid very nicely. I then closed the fascial defect using interrupted 0 Nurolon sutures. An additional 7 or 7 sutures were placed to close the fascia. This closed very nicely. Hemostasis was excellent. The wound was copiously irrigated with saline. 3-0 Vicryl was then used to close the subdermal layer. 4-0 Vicryl was then run in the skin. Skin glue was applied asdressing and abdominal binder was also placed. She was awakened from anesthesiaand taken to recovery in good condition Surgical Findings: 3 cm fascial defect Fat-containing hernia Complications Complications: No Admit VTE Documentation VTE Present on Admission: No VTE Mechan Device Prophylaxis: SCD's VTE Pharm Prophylaxis ordered?: No Reason prophylaxis not ordered: Treatment Not Indicated 02/14/251555 Cosigner Signature (if applicable): CC: KOSTA Valdes; Dr. Desean Rodriguez MD~ Signed [facility]06-02-2025 Consult note [facility] Medical Records Department [address] [place] [address] Anesthesia Postop Eval I 02/14/251553 MR#: [id number] Acct: [id number] Name: SIA OLIVERA Rep #:[id number] : 1985 39 From: Royce SORENSEN PCP: KOSTA Gomez Status:REG S DC Y Race: C Location: [place] [address] Anesthesia: Postop Eval I Current Vital Signs Temperature: 97.8 F Pulse Rate: 88 Blood Pressure: 117/81 Respiratory Rate: 16 Pulse Ox: 100 Oxygen Delivery Method: Non-Rebreather Oxygen Flow Rate (L/min): 8 Assessment Airway patent: Yes Spontaneous unlabored respirations: Yes Mental status: Awake and Calm nausea: No Vomiting: No Anesthesia Complication: No Fluid Hydration Crystalloid volume administer (ml): 1,000 Total IV fluid infused: 1,000 Progress Note Anesthesia document: Postop Eval 1 completed: Yes 02/14/251554 COOK HOUSE SUPERVISOR> Date _ Royce Gomez CRNA Cosigner Signature: Date CC: ~ Signed [facility]06-02-2025 Discharge summary [facility] Medical Records Department [address] [place] [address] Instructions for Home/Discharge Instructions 02/14/25 1536 MR#: [id number] Acct: [id number] Name: SIA OLIVERA Rep #:[id number] : 1985 39 From: Desean Rodriguez MD PCP: Hui Valdes, JESUS-C Status:REG S DC Discharge Instructions Diet Discharge Diet: Light diet - advance as tolerated Activity Discharge Activity: May Shower May shower in (days): 1 Ice area for (Minutes): 30 Lifting Restrictions: Keep lifting under 20 pounds for 6 weeks Dressing / Incision Call your doctor if your incision/area has: Continuous Slow Oozing, Sudden Increased Bleeding, Increased Pain/ Swelling, Increased Redness, Foul Smelling Discharge and Swelling at the incision site Call your doctor if you observe: Fever of 101 or Higher Cleanse incision/area with: Soap & Water Additional Dressing/Incision Instructions:: Wear abdominal binder for comfort Follow Up Care Please Follow Up With: Desean Rodriguez MD When: 2 weeks. Please call office to schedule appointment Test Results: Test results from this visit will be discussed in further detail at your follow- up appointment, if applicable. Discharge Plan Admission Primary Reason for Your Visit: Ventral hernia repair with mesh Attending Provider: Desean Rodriguez Primary Care Provider: Hui Valdes NP Instructions Print Language: French Discharge Orders/Prescriptions Prescriptions: New oxycodone-acetaminophen [Percocet] 5-325 mg tablet 1 tab PO Q8H PRN (Reason: pain) 4 Days Qty: 10 0RF Continued sumatriptan succinate 25 mg tablet 25 mg PO ONCE PRN (Reason: migraine headache) solifenacin 10 mg tablet 5 mg PO QDAY atomoxetine 80 mg capsule 80 mg PO QAM venlafaxine 75 mg capsule,extended release 24hr 75 mg PO QAM metoprolol succinate 25 mg tablet extended release 24 hr 25 mg PO QDAY Referrals / Follow Up: Hui Valdes NP, 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 [Primary Care Provider] - Disposition Disposition (needs filled in before D/C Order can be placed): Home, Self Care 02/14/25 1546Steagle Rodriguez MD CC: KOSTA Valdes ~ Signed [facility]06-02-2025 Consult note Author Guille Shin [facility] Note Date/Time February 14, 2025 1:45p m [facility] Medical Records Department [address] [place] [address] Pre-Anesthesia Evaluation 02/14/25 1340 MR#: [id number] Acct: [id number] Name: SIA OLIVERA Rep #:[id number] : 1985 39 From: Guille Shin MD PCP: KOSTA Gomez Status:REG S DC Y Race: C Location: [place] [address] ASA Classification* ASA Classification ASA Classification: 2 (Tachycardia, anxiety/depression, migraines) Assessment & Plan Anesthesia* Anesthesia Assessment Anesthesia Assessment: Discussed sedation and/or anesthesia options, risks, benefits, and alternatives with patient/parents/legal guardian/POA. Questions invited. The patient/parents/legal guardian/POA seems to understand and agrees to proceedwith anesthesia plan. Reviewed the physical assessment, medical history, allergy history and patient home medications list prior to surgery/procedure/anesthetic and documented any changes. Performed airway and anesthesia risk assessments. Anesthesia Type Anesthesia Type: General History Source History Obtained from:: Patient and Chart Anesthesia Focused Assessment* Temperature: 98.0 F Pulse Rate: 75 Blood Pressure: 142/98 Respiratory Rate: 18 Pulse Ox: 98 Oxygen Delivery Method: Room Air Airway Assessment Mouth opens: >3 cm Mallampati Score: II Teeth Condition: Missing (edentullous) Neck Range of motion (ROM): Full ROM Focused Labs Anesthesia Preop lab: CBC WBC 9.4 K/mm3 (4.4-11.0) 01/15/25 18:12 01/15/25 RBC 4.39 M/mm3 (4.2-5.4) 01/15/25 18:12 01/15/25 Hgb 13.8 g/dL (12.0-15.0) 01/15/25 18:12 01/15/25 Hct 40.0 % (37-47) 01/15/25 18:12 01/15/25 Plt Count 365 K/mm3 (150-450) 01/15/25 18:12 01/15/25 CHEMISTRY Potassium 4.2 mmol/L (3.3-5.1) 01/15/25 18:12 01/15/25 Sodium 139 mmol/L (133-145) 01/15/25 18:12 01/15/25 BUN 11 mg/dL (4-19) 01/15/25 18:12 01/15/25 Creatinine 0.76 mg/dL (0.70-1.20) 01/15/25 18:12 01/15/25 Glucose 94 mg/dL (70-99) 01/15/25 18:12 01/15/25 COAG Urine Test Negative Negative 02/14/25 13:00 02/14/25 Pre-Assessment Diagnosis/Proposed Procedure Planned Operative Procedure(s): OPEN VENTRAL HERNIA REPAIR WITH MESH Anesthesia History Anesthesia History - department head: Anesthesia History - department head Hx Hospitalization No 02/04/25 14:43 Any Problems With Anesthesia No 02/04/25 14:43 Cholinesterase deficiency No 02/04/25 14:43 You/Your Family Experience No 02/04/25 14:43 fever (hyperthermia) with Relationship Recent Exposure to Contagious No 02/14/25 13:25 Disease Does patient have nerve No 02/04/25 14:43 stimulator Patient instructed to have device shut off --Does patient have Pacemaker No 02/14/25 13:25 or ICD? When Was Last Pacemaker Check QUESTION #4 FULL TEXT: You/Your Family Experience fever (hyperthermia) with Anesthesia Last Oral Intake Last Oral intake: Last Oral Intake NPO since 09:00 02/14/25 13:25 Meds taken in AM with sips of Yes 02/14/25 13:25 water? Meds patient instructed to see med rec 02/14/25 13:25 take am of surgery PONV PONV - department head: PONV - department head Female Yes 02/04/25 14:43 HX of Motion Sickness No 02/04/25 14:43 HX of N/V After Surgery No 02/04/25 14:43 Non-Smoker No 02/04/25 14:43 Duration of Surgery greater Yes 02/04/25 14:43 than 60 minutes Number of Risk Factors 2 02/04/25 14:43 PONV Score Moderate Risk 02/04/25 14:43 Height & Weight Height & Weight: Anesthesia: Height & Weight Height 5 ft 4 in 02/14/25 13:25 Weight: 73 kg 02/14/25 13:25 Body Mass Index (BMI) 27.6 02/14/25 13:25 Respiratory Assessment Respiratory Assessment - department head: Respiratory Tract Infection Hx - department head Hx Respiratory Tract Infection No 02/04/25 14:43 STOP Sleep Apnea STOP Sleep Apnea - department head: STOP Sleep Apnea - department head Hx Hypertension No 02/04/25 14:43 Hx Sleep Apnea No 02/04/25 14:43 CPAP BIPAP Do you snore loudly (louder No 02/04/25 14:43 than talking or can be heard Do you often feel tired/ Yes 02/04/25 14:43 fatigued/ sleepy during daytime? Has anyone observed you stop No 02/04/25 14:43 breathing during sleep? STOP Results Negative 02/04/25 14:43 QUESTION #5 FULL TEXT : Do you snore loudly (louder than talking or can be heard through closed doors)? 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 Specify any problems Hx of Preganancy in last 3 No 02/04/25 14:43 Months Nurse Filling Out Transfusion DSCHRIBER 02/04/25 14:43 & Questions: Date: 02/04/25 02/04/25 14:43 Time: 14:45 02/04/25 14:43 Patient unable to answer at this time (ie. confused, unrespo /Reproduction History /Reproductive History - department head: /Reproductive Hx- department head Hx Now No 02/04/25 14:43 Gestational Age (in weeks): EDC: Hx Hx Para Hx Section SAB No 02/04/25 14:43 Active Medications Active Medications: Current Medications Generic Name Dose Route Start Last Admin Trade Name Freq PRN Reason Stop Dose Admin Clindamycin Phosphate 900 mg in 50 mls @ 75 mls/hr 02/14/25 14:30 Cleocin IV 02/14/25 15:09 INTRAOP ONE Lactated Ringer's 1,000 mls @ 15 mls/hr 02/14/25 13:15 02/14/25 13:28 IV 15 mls/hr .Q48H MINOR Administration PFSH Medical History (Updated 02/04/25 @ 14:53 by Tricia Garcia) Wears glasses Wears dentures Depression Bladder disease Low iron Back pain Migraine headache History of ulceration Shortness of breath on exertion Vapes nicotine containing substance Hx of Tachycardia IUD (intrauterine device) in place Home Medications ?Medication ?Instructions ?Recorded ?Last Taken ?Type atomoxetine 80 mg capsule 80 mg PO QAM 02/02/25 Unknow n History metoprolol succinate 25 mg 25 mg PO QDAY HEART RATE 02/14/25 09:00 History tablet,extended release 24 hr solifenacin 10 mg tablet 5 mg PO QDAY OAB 02/02/25 09:00 History sumatriptan succinate 25 mg tablet 25 mg PO ONCE PRN m igraine headache 02/02/25 Unknown History venlafaxine 75 mg capsule,extended 75 mg PO QAM Unknown History release 24 hr Allergy/AdvReac Type Severity Reaction Status Date / Time amoxicillin Allergy Unknown unknown Verified 02/14/25 13:23 Family History Son Asthma Grandmother Diabetes Breast cancer Father Hypertension Surgical History (Updated 02/04/25 @ 14:53 by Tricia Garcia) History of esophagogastroduodenoscopy (EGD) Previous section Social History Smoking Status: Current every day smoker tobacco type: e-cigarettes quit status: not considering quitting Review of Systems (Anesthesia) ROS Narrative System reviewed and no additional complaints, except as documented. Physical Exam Const alert, oriented x3 and average body habitus Resp normal respiratory effort, normal air movement and clear to auscultation bilaterally Cardio regular rate, regular rhythm, no murmurs and diaphoretic 02/14/25 1345 <Electronically signed by Guille Shin MD> Date _ Guille Shin MD Cosigner Signature: Date CC: ~ Signed [facility] Work Phone: 1(726) 540-788606-02-2025 History and physical note [facility] Medical Records Department [address] [place] [address] History & Physical Exam 02/14/25 1414 MR#: [id number] Acct: [id number] Name: SIA OLIVERA Rep #:[id number] : 1985 39 From: Desean Rodriguez MD PCP: KOSTA Gomez Status:REG S HI Location: [place] [address] HPI - General General Date of Admission: 02/14/25 Date of Service: 02/14/25 Chief Complaint: Ventral hernia HPI Narrative SIA OLIVERA, is a 39 F who presents for elective repair of a ventral hernia just above the umbilicus. [facility] Medical History Wears glasses Wears dentures Depression Bladder disease Low iron Back pain Migraine headache History of ulceration Shortness of breath on exertion Vapes nicotine containing substance Hx of Tachycardia IUD (intrauterine device) in place Home Medications ?Medication ?Instructions ?Recorded ?Last Taken ?Type atomoxetine 80 mg capsule 80 mg PO QAM 02/02/25 Unknow n History metoprolol succinate 25 mg 25 mg PO QDAY HEART RATE 02/14/25 09:00 History tablet,extended release 24 hr solifenacin 10 mg tablet 5 mg PO QDAY OAB 02/02/25 09:00 History sumatriptan succinate 25 mg tablet 25 mg PO ONCE PRN m igraine headache 02/02/25 Unknown History venlafaxine 75 mg capsule,extended 75 mg PO QAM Unknown History release 24 hr Allergy/AdvReac Type Severity Reaction Status Date / Time amoxicillin Allergy Unknown unknown Verified 02/14/25 13:23 Family History Son Asthma Grandmother Diabetes Breast cancer Father Hypertension Surgical History History of esophagogastroduodenoscopy (EGD) Previous section Social History Smoking Status: Current every day smoker tobacco type: e-cigarettes quit status: not considering quitting Vital Signs Vital Signs Vital Signs: 02/14/25 13:25 02/14/25 13:25 02/14/25 13:42 Temperature 98.0 F 98.0 F Temperature Source Temporal Pulse Rate 75 75 Respiratory Rate 18 18 Respiratory Pattern Normal Blood Pressure 142/98 H 142/98 H Blood Pressure Mean 112 Blood Pressure Source Monitor Blood Pressure Position Sitting Blood Pressure Location Left Arm Pulse Ox 98 98 Oxygen Delivery Method Room Air Room Air Weight Weight: 160 lb 14.999 oz Body Mass Index (BMI) 27.6 Physical Exam Const alert, oriented x3 and no apparent distress GI GI Narrative: Hernia unchanged Results Lab / Micro Data Labs: Laboratory Results - last 24 hr 02/14/25 13:00: Urine Test Negative Assessment & Plan Assessment/Plan (1) Ventral hernia: PLAN: Plan The patient is a 39-year-old female with a fat-containing hernia just above the umbilicus. She states she has had this for some time. She was seen in the office and I recommended surgical repair. We discussed the details of the planned surgery including risk benefits and alternatives and she wishedto proceed. This will begin momentarily Charges/Coding Visit Charges Inpatient E&M: 59526 Init Hosp L2 02/14/25 1417 Cosigner Signature (if applicable): CC: AUDIO VISUAL MANAGERJingC Hui Valdes; Dr. Desean Rodriguez MD~ Signed [facility]06-02-2025 [facility] Medical Records Department [address] [place] [address] History Physical Exam 02/14/25 1414 MR#: [id number] Acct: [id number] Name: SIA OLIVERA Rep #: [id number] : 1985 39 From: Desean Rodriguez MD PCP: Hui Valdes, KOSTA Status:REG [facility] Location: [place] [address] HPI - General General Date of Admission: 02/14/25 Date of Service: 02/14/25 Chief Complaint: Ventral hernia HPI Narrative SIA OLIVERA, is a 39 F who presents for elective repair of a ventral hernia just above the umbilicus. [facility] Medical History Wears glasses Wears dentures Depression Bladder disease Low iron Back pain Migraine headache History of ulceration Shortness of breath on exertion Vapes nicotine containing substance Hx of Tachycardia IUD (intrauterine device) in place Home Medications ???Medication ???Instructions ???Recorded ???Last Taken ???Type atomoxetine 80 mg capsule 80 mg PO QAM 02/02/25 Unknown Hist ory metoprolol succinate 25 mg 25 mg PO QDAY HEART RATE 02/02/25 02/14/25 09:00 History tablet,extended release 24 hr solifenacin 10 mg tablet 5 mg PO QDAY OAB 02/02/25 02/14/25 09:00 History sumatriptan succinate 25 mg tablet 25 mg PO ONCE PRN migraine heada ruperto 02/02/25 Unknown History venlafaxine 75 mg capsule,extended 75 mg PO QAM 02/02/25 Unknown Hi story release 24 hr Allergy/AdvReac Type Severity Reaction Status Date / Time amoxicillin Allergy Unknown unknown Verified 02/14/25 13:23 Family History Son Asthma Grandmother Diabetes Breast cancer Father Hypertension Surgical History History of esophagogastroduodenoscopy (EGD) Previous section Social History Smoking Status: Current every day smoker tobacco type: e-cigarettes quit status: not considering quitting Vital Signs Vital Signs Vital Signs: 02/14/25 13:25 02/14/25 13:25 02/14/25 13:42 Temperature 98.0 F 98.0 F Temperature Source Temporal Pulse Rate 75 75 Respiratory Rate 18 18 Respiratory Pattern Normal Blood Pressure 142/98 H 142/98 H Blood Pressure Mean 112 Blood Pressure Source Monitor Blood Pressure Position Sitting Blood Pressure Location Left Arm Pulse Ox 98 98 Oxygen Delivery Method Room Air Room Air Weight Weight: 160 lb 14.999 oz Body Mass Index (BMI) 27.6 Physical Exam Const alert, oriented x3 and no apparent distress GI GI Narrative: Hernia unchanged Results Lab / Micro Data Labs: Laboratory Results - last 24 hr 02/14/25 13:00: Urine Test Negative Assessment Plan Assessment/Plan (1) Ventral hernia: PLAN: Plan The patient is a 39-year-old female with a fat-containing hernia just above the umbilicus. She states she has had this for some time. She was seen in the office and I recommended surgical repair. We discussed the details of the planned surgery including risk benefits and alternatives and she wished to proceed. This will begin momentarily Charges/Coding Visit Charges Inpatient E M: 48505 Init Hosp L2 02/14/25 1417 Cosigner Signature (if applicable): CC: 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 Hui Valdes; Dr. Desean Rodriguez MD [facility] Consult note [facility] Medical Records Department [address] [place] [address] Pre-Anesthesia Evaluation 02/14/25 1340 MR#: [id number] Acct: [id number] Name: SIA OLIVERA Rep #:[id number] : 1985 39 From: Guille Shin MD PCP: Hui Valdes, 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 Status:REG S DC Y Race: C Location: [facility] ASA Classification* ASA Classification ASA Classification: 2 (Tachycardia, anxiety/depression, migraines) Assessment & Plan Anesthesia* Anesthesia Assessment Anesthesia Assessment: Discussed sedation and/or anesthesia options, risks, benefits, and alternatives with patient/parents/legal guardian/POA. Questions invited. The patient/parents/legal guardian/POA seems to understand and agrees to proceedwith anesthesia plan. Reviewed the physical assessment, medical history, allergy history and patient home medications list prior to surgery/procedure/anesthetic and documented any changes. Performed airway and anesthesia risk assessments. Anesthesia Type Anesthesia Type: General History Source History Obtained from:: Patient and Chart Anesthesia Focused Assessment* Temperature: 98.0 F Pulse Rate: 75 Blood Pressure: 142/98 Respiratory Rate: 18 Pulse Ox: 98 Oxygen Delivery Method: Room Air Airway Assessment Mouth opens: >3 cm Mallampati Score: II Teeth Condition: Missing (edentullous) Neck Range of motion (ROM): Full ROM Focused Labs Anesthesia Preop lab: CBC WBC 9.4 K/mm3 (4.4-11.0) 01/15/25 18:12 01/15/25 RBC 4.39 M/mm3 (4.2-5.4) 01/15/25 18:12 01/15/25 Hgb 13.8 g/dL (12.0-15.0) 01/15/25 18:12 01/15/25 Hct 40.0 % (37-47) 01/15/25 18:12 01/15/25 Plt Count 365 K/mm3 (150-450) 01/15/25 18:12 01/15/25 CHEMISTRY Potassium 4.2 mmol/L (3.3-5.1) 01/15/25 18:12 01/15/25 Sodium 139 mmol/L (133-145) 01/15/25 18:12 01/15/25 BUN 11 mg/dL (4-19) 01/15/25 18:12 01/15/25 Creatinine 0.76 mg/dL (0.70-1.20) 01/15/25 18:12 01/15/25 Glucose 94 mg/dL (70-99) 01/15/25 18:12 01/15/25 COAG Urine Test Negative Negative 02/14/25 13:00 02/14/25 Pre-Assessment Diagnosis/Proposed Procedure Planned Operative Procedure(s): OPEN VENTRAL HERNIA REPAIR WITH MESH Anesthesia History Anesthesia History - department head: Anesthesia History - department head Hx Hospitalization No 02/04/25 14:43 Any Problems With Anesthesia No 02/04/25 14:43 Cholinesterase deficiency No 02/04/25 14:43 You/Your Family Experience No 02/04/25 14:43 fever (hyperthermia) with Relationship Recent Exposure to Contagious No 02/14/25 13:25 Disease Does patient have nerve No 02/04/25 14:43 stimulator Patient instructed to have device shut off --Does patient have Pacemaker No 02/14/25 13:25 or ICD? When Was Last Pacemaker Check QUESTION #4 FULL TEXT: You/Your Family Experience fever (hyperthermia) with Anesthesia Last Oral Intake Last Oral intake: Last Oral Intake NPO since 09:00 02/14/25 13:25 Meds taken in AM with sips of Yes 02/14/25 13:25 water? Meds patient instructed to see med rec 02/14/25 13:25 take am of surgery PONV PONV - department head: PONV - department head Female Yes 02/04/25 14:43 HX of Motion Sickness No 02/04/25 14:43 HX of N/V After Surgery No 02/04/25 14:43 Non-Smoker No 02/04/25 14:43 Duration of Surgery greater Yes 02/04/25 14:43 than 60 minutes Number of Risk Factors 2 02/04/25 14:43 PONV Score Moderate Risk 02/04/25 14:43 Height & Weight Height & Weight: Anesthesia: Height & Weight Height 5 ft 4 in 02/14/25 13:25 Weight: 73 kg 02/14/25 13:25 Body Mass Index (BMI) 27.6 02/14/25 13:25 Respiratory Assessment Respiratory Assessment - department head: Respiratory Tract Infection Hx - department head Hx Respiratory Tract Infection No 02/04/25 14:43 STOP Sleep Apnea STOP Sleep Apnea - department head: STOP Sleep Apnea - department head Hx Hypertension No 02/04/25 14:43 Hx Sleep Apnea No 02/04/25 14:43 CPAP BIPAP Do you snore loudly (louder No 02/04/25 14:43 than talking or can be heard Do you often feel tired/ Yes 02/04/25 14:43 fatigued/ sleepy during daytime? Has anyone observed you stop No 02/04/25 14:43 breathing during sleep? STOP Results Negative 02/04/25 14:43 QUESTION #5 FULL TEXT : Do you snore loudly (louder than talking or can be heard through closeddoors)? 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 Specify any problems Hx of Preganancy in last 3 No 02/04/25 14:43 Months Nurse Filling Out Transfusion DSCHRIBER 02/04/25 14:43 & Questions: Date: 02/04/25 02/04/25 14:43 Time: 14:45 02/04/25 14:43 Patient unable to answer at this time (ie. confused, unrespo /Reproduction History /Reproductive History - department head: /Reproductive Hx- department head Hx Now No 02/04/25 14:43 Gestational Age (in weeks): EDC: Hx Hx Para Hx Section SAB No 02/04/25 14:43 Active Medications Active Medications: Current Medications Generic Name Dose Route Start Last Admin Trade Name Freq PRN Reason Stop Dose Admin Clindamycin Phosphate 900 mg in 50 mls @ 75 mls/hr 02/14/25 14:30 Cleocin IV 02/14/25 15:09 INTRAOP ONE Lactated Ringer's 1,000 mls @ 15 mls/hr 02/14/25 13:15 02/14/25 13:28 IV 15 mls/hr .Q48H MINOR Administration PFSH Medical History (Updated 02/04/25 @ 14:53 by Tricia Garcia) Wears glasses Wears dentures Depression Bladder disease Low iron Back pain Migraine headache History of ulceration Shortness of breath on exertion Vapes nicotine containing substance Hx of Tachycardia IUD (intrauterine device) in place Home Medications ?Medication ?Instructions ?Recorded ?Last Taken ?Type atomoxetine 80 mg capsule 80 mg PO QAM 02/02/25 Unknow n History metoprolol succinate 25 mg 25 mg PO QDAY HEART RATE 02/14/25 09:00 History tablet,extended release 24 hr solifenacin 10 mg tablet 5 mg PO QDAY OAB 02/02/25 09:00 History sumatriptan succinate 25 mg tablet 25 mg PO ONCE PRN m igraine headache 02/02/25 Unknown History venlafaxine 75 mg capsule,extended 75 mg PO QAM Unknown History release 24 hr Allergy/AdvReac Type Severity Reaction Status Date / Time amoxicillin Allergy Unknown unknown Verified 02/14/25 13:23 Family History Son Asthma Grandmother Diabetes Breast cancer Father Hypertension Surgical History (Updated 02/04/25 @ 14:53 by Tricia Garcia) History of esophagogastroduodenoscopy (EGD) Previous section Social History Smoking Status: Current every day smoker tobacco type: e-cigarettes quit status: not considering quitting Review of Systems (Anesthesia) ROS Narrative System reviewed and no additional complaints, except as documented. Physical Exam Const alert, oriented x3 and average body habitus Resp normal respiratory effort, normal air movement and clear to auscultation bilaterally Cardio regular rate, regular rhythm, no murmurs and diaphoretic 02/14/25 1345 MD> Date _ Guille Shin MD Cosigner Signature: Date CC: ~ Signed [facility]05-21-2025 Evaluation note* Diagnosis Onset Date Resolution Status Admit Date Ventral hernia acute February 02, 2025 12:47pm Ventral hernia acute February 14, 2025 12:52pm [facility] Work Phone: 1(395) 418-514005-21-2025 [facility] [address] [place] [address] OFFICE VISIT Date of Service: 02/02/25 MR#: [id number] Acct: [id number] Name: SIA OLIVERA Rep #: [id number] : 1985 Provider: Dr. Griffin Rodriguez MD Age/Sex: 39/F Location: [facility] Status: Signed Intake Vital Signs 01/15/25 17:48 01/25/25 11:00 02/02/25 13:06 Height 5 ft 4 in 5 ft 4 in 5 ft 4 in Weight: 164 lb BMI 28.1 BP 127/79 H Blood Pressure Location Rt brachial Position Sitting Respiration 17 Pulse 90 Pulse Source Monitor Pulse Oximetry (%) 98 Oxygen Delivery Method room air Intake Visit Reasons: VENTRAL HERNIA Chief Complaint: ventral hernia Is patient in pain?: No Allergies amoxicillin Allergy (Unknown, Verified 02/02/25 13:09) unknown Medications ?Medication ?Instructions ?Recorded ?Confirmed ?Type atomoxetine 80 mg capsule 80 mg PO QAM 02/02/25 History metoprolol succinate 25 mg 25 mg PO QDAY 02/02/25 05/10/09 History tablet,extended release 24 hr solifenacin 10 mg tablet 10 mg PO QDAY 02/02/2502/02 History sumatriptan succinate 25 mg tablet 25 mg PO ONCE PRN 0 02/02/25 02/02/25 History venlafaxine 75 mg capsule,extended 75 mg PO QAM 02/02/25 History release 24 hr PFSH Medical History Tachycardia IUD (intrauterine device) in place Surgical History Previous section Family History Son Asthma Grandmother Diabetes Breast cancer Father Hypertension Social History Smoking Status: Current every day smoker tobacco type: e-cigarettes quit status: not considering quitting HPI HPI HPI: The patient is a 39-year-old female who is being seen today for a ventral hernia. She states she has had this for probably 3 to 5 years of more. She sawa surgeon in the past who recommended weight loss. She has lost quite a bit of weight. She is noticing that this hernia is gradually getting largerand causing her more symptoms of pain and discomfort. She presents today to discusspossibly having this repaired. She does admit that she would like to have more children. She has 2 children currently and she states that during these pregnancies her hernia did become larger and more increasingly symptomatic with these . ROS General General: Yes weight change and fatigue; No appetite, colon cancer, breast cancer or weakness HEENT HEENT: No difficulty swallowing, eye injury, eye surgery, swollen glands or hoarseness Endo Endocrine: No thyroid disease, diabetes mellitus, thyroid cancer, Hair loss, heat intolerance or cold intolerance Skin Skin: No rash or changing moles Musc Musculoskeletal: Yes back problems; No arthritis, rheumatoid arthritis, gout or joint pain Cardio Cardiovascular: No murmur, pacemaker, heart disease, atrial fibrillation, high blood pressure, heart attack, heart stent, palpitations, shortness of breath with exertion or chest pain Psych Psychiatric: Yes depression and anxiety; No hearing voices Resp Respiratory: No shortness of breath, No sleep apnea, No cough, No COPD, No asthma, No emphysema andNo wheezing Gastro Gastrointestinal: Yes abdominal pain, Yes nausea or vomiting, No diarrhea, Yes constipation, Yes blood in stool, No acid reflux, Yes hemorrhoids, No ulcers, Nogallbladder problem and No black,tarry stools Aman Hematologic: No blood thinners, No blood disorders, No bleeding, No anemia and No blood clots Neuro Neurologic: No system reviewed and no additional complaints, except as documented, No as per HPI, No abnormal gait, No abnormal hearing, No abnormal movements, No abnormal speech, No behavioral changes, No burning sensations, No confusion, No convulsions, No disequilibrium, No dizziness, No localized weakness, No frequent falls, No headache(s), No lack of coordination, No loss ofvision, No memoryloss, No numbness, No other visual disturbances, No radicular pain, No restless legs, No sensory deficit, No syncope, No tingling, No tremor(s), No weakness and No other Exam Const General: cooperative, healthy appearing and comfortable [facility] Head: normal to inspection, normocephalic and atraumatic Eyes General: appearance normal, both eyes and all related structures Resp Effort & Inspection: normal respiratory effort and able to speak in complete sentences GI Other: Visibly obvious ventral hernia just above the umbilicus. This appears to be about 8 cm in maximal diameter. Fascial defect on CT scan is about 2-1/2 cm or so. It is not completely reducible. No overlying skin changes mild discomfort with palpation. Assessment and Plan Assessment and Plan (1) Ventral hernia: Status: Acute Plan: The patient is a 39-year-old female with a chronically incarcerated ventral hernia just above the umbilicus causing increasing pain. CT scan showed an 8 cmhernia with about a 2-1/2 to 3 cm defect. This is not reducible. I have opted to recommend an open ventral hernia repair with mesh. She wishes to proceed. We did discuss timing of surgery as she does wish to have more children. I stated that there is pros and cons to doing it now versus after her last . My biggest concern with her isthe fact that she is having quite a bit of pain not only now but with each subsequent . I would be very concerned that she may develop significant symptoms and/or strangulation during her which could necessitate emergency surgery. For this reason I haverecommended that she proceed with repair now. She does understand that a subsequent might increase her recurrence rate. She is understanding of this and wishes to proceed. This will be scheduled in a timely manner. Coding Level of Care Code Off vis,new,level 4 Diagnoses Ventral hernia K43.9 02/02/25 1324 k > Date _ Desean Rodriguez MD Cosigner Signature: Date (if applicable) CC: ~ [facility]05-21-2025 Progress note Author Desean Rodriguez [facility] Note Date/Time February 02, 2025 1:24p m [facility] [address] [place] [address] OFFICE VISIT Date of Service: 02/02/25 MR#: [id number] Acct: [id number] Name: SIA OLIVERA Rep #: [id number] : 1985 Provider: Dr. Griffin Rodriguez MD Age/Sex: 39/F Location: [facility] Status: Signed Intake Vital Signs 01/15/25 17:48 01/25/25 11:00 02/02/25 13:06 Height 5 ft 4 in 5 ft 4 in 5 ft 4 in Weight: 164 lb BMI 28.1 BP 127/79 H Blood Pressure Location Rt brachial Position Sitting Respiration 17 Pulse 90 Pulse Source Monitor Pulse Oximetry (%) 98 Oxygen Delivery Method room air Intake Visit Reasons: VENTRAL HERNIA Chief Complaint: ventral hernia Is patient in pain?: No Allergies amoxicillin Allergy (Unknown, Verified 02/02/25 13:09) unknown Medications ?Medication ?Instructions ?Recorded ?Confirmed ?Type atomoxetine 80 mg capsule 80 mg PO QAM 02/02/25 History metoprolol succinate 25 mg 25 mg PO QDAY 02/02/2501/14 History tablet,extended release 24 hr solifenacin 10 mg tablet 10 mg PO QDAY 02/02/2502/02 History sumatriptan succinate 25 mg tablet 25 mg PO ONCE PRN 0 02/02/25 02/02/25 History venlafaxine 75 mg capsule,extended 75 mg PO QAM 02/02/25 History release 24 hr PFSH Medical History Tachycardia IUD (intrauterine device) in place Surgical History Previous section Family History Son Asthma Grandmother Diabetes Breast cancer Father Hypertension Social History Smoking Status: Current every day smoker tobacco type: e-cigarettes quit status: not considering quitting HPI HPI HPI: The patient is a 39-year-old female who is being seen today for a ventral hernia. She states she has had this for probably 3 to 5 years of more. She sawa surgeon in the past who recommended weight loss. She has lost quite a bit of weight. She is noticing that this hernia is gradually getting larger and causing her more symptoms of pain and discomfort. She presents today to discusspossibly having this repaired. She does admit that she would like to have more children. She has 2 children currently and she states that during these pregnancies her hernia did become larger and more increasingly symptomatic with these . ROS General General: Yes weight change and fatigue; No appetite, colon cancer, breast cancer or weakness HEENT HEENT: No difficulty swallowing, eye injury, eye surgery, swollen glands or hoarseness Endo Endocrine: No thyroid disease, diabetes mellitus, thyroid cancer, Hair loss, heat intolerance or cold intolerance Skin Skin: No rash or changing moles Musc Musculoskeletal: Yes back problems; No arthritis, rheumatoid arthritis, gout or joint pain Cardio Cardiovascular: No murmur, pacemaker, heart disease, atrial fibrillation, high blood pressure, heart attack, heart stent, palpitations, shortness of breath with exertion or chest pain Psych Psychiatric: Yes depression and anxiety; No hearing voices Resp Respiratory: No shortness of breath, No sleep apnea, No cough, No COPD, No asthma, No emphysema and No wheezing Gastro Gastrointestinal: Yes abdominal pain, Yes nausea or vomiting, No diarrhea, Yes constipation, Yes blood in stool, No acid reflux, Yes hemorrhoids, No ulcers, Nogallbladder problem and No black,tarry stools Aman Hematologic: No blood thinners, No blood disorders, No bleeding, No anemia and No blood clots Neuro Neurologic: No system reviewed and no additional complaints, except as documented, No as per HPI, No abnormal gait, No abnormal hearing, No abnormal movements, No abnormal speech, No behavioral changes, No burning sensations, No confusion, No convulsions, No disequilibrium, No dizziness, No localized weakness, No frequent falls, No headache(s), No lack of coordination, No loss ofvision, No memory loss, No numbness, No other visual disturbances, No radicular pain, No restless legs, No sensory deficit, No syncope, No tingling, No tremor(s), No weakness and No other Exam Const General: cooperative, healthy appearing and comfortable [facility] Head: normal to inspection, normocephalic and atraumatic Eyes General: appearance normal, both eyes and all related structures Resp Effort & Inspection: normal respiratory effort and able to speak in complete sentences GI Other: Visibly obvious ventral hernia just above the umbilicus. This appears to be about 8 cm in maximal diameter. Fascial defect on CT scan is about 2-1/2 cm or so. It is not completely reducible. No overlying skin changes mild discomfort with palpation. Assessment and Plan Assessment and Plan (1) Ventral hernia: Status: Acute Plan: The patient is a 39-year-old female with a chronically incarcerated ventral hernia just above the umbilicus causing increasing pain. CT scan showed an 8 cmhernia with about a 2-1/2 to 3 cm defect. This is not reducible. I have opted to recommend an open ventral hernia repair with mesh. She wishes to proceed. We did discuss timing of surgery as she does wish to have more children. I stated that there is pros and cons to doing it now versus after her last . My biggest concern with her is the fact that she is having quite a bit of pain not only now but with each subsequent . I would be very concerned that she may develop significant symptoms and/or strangulation during her which could necessitate emergency surgery. For this reason I haverecommended that she proceed with repair now. She does understand that a subsequent might increase her recurrence rate. She is understanding of this and wishes to proceed. This will be scheduled in a timely manner. Coding Level of Care Code Off vis,new,level 4 Diagnoses Ventral hernia K43.9 02/02/25 1324 <Electronically signed by Desean medellin MD> Date _ Desean Villafuerteignjosh Signature: Date (if applicable) CC: ~ [facility] [employer] [facility] Work Phone: [phone] NoteHNO ID: [id number] Author: HUI VALDES APRN.[facility] Service: ? Author Type: Nurse Practitioner Type: Progress Notes Filed: 12/31/2024 13:48 Note Text: 12/29/2024 Patient presents with: F/U 6 months SUBJECTIVE: This is a 39 year old that is here today for Above Complaints. ADHD: taking Strattera as prescribed without side effects. Would like to increase. Did note improvement in concentrating. Would like to increase dose Hx of migraines: taking Metoprolol as prescribed without side effects. Goes through periods where they are good for awhile then a period of time they are worse. Depression: taking Effexor as prescribed without side effects. Does feel some depression but is some better. Not currently attending counseling. Denies SI or HI. Would like to increase dose Taking Vesicare as prescribed. Helps some. Has not set up appointment for pelvic floor therapy Thinking of getting IUD removed. Would like another child HTN: Patient is compliant with meds Yes Monitors bp at home: No. Denies side effects: Yes. Chest pain: No. Dyspnea: No. Edema: No. Palpitations: No. Syncope: No. Headache: hx of migraines Dizziness: No. PAST MEDICAL HISTORY Diagnosis Date Abnormal Pap smear of cervix 2019 ASCUS neg HPV ADHD (attention deficit hyperactivity disorder), combined type 08/11/2018 Anemia Anxiety 07/07/2018 Bipolar disorder, in partial remission, most recent episode mixed (HCC) 10/04/2019 Depression, major, recurrent, moderate (HCC) 07/07/2018 Diet controlled gestational diabetes mellitus (GDM) in second trimester (HCC) 07/05/2022 Drug use disorder remission since 06/2019; methamphetamines, marijuana Gastritis due to Helicobacter species 11/26/2021 Genital warts -09 Never seen again GERD without esophagitis 02/08/2022 Grand multiparity 09/11/2022 - history 4 prior SVDs, this will be delivery #5 - admission CBC 11.9 Group B Streptococcus carrier, antepartum (HCC) 07/26/2021 Sensitive to Vanc Hemorrhoids Herpes simplex virus (HSV) infection 2008 Hypertension, essential 11/26/2021 Migraine without aura and without status migrainosus, not intractable 07/07/2018 MRSA infection 08/15/2021 -patient reports history of multi-site staph skin infection, is unsure if MRSA or MSSA -will treat with vancomycin preoperatively if need for delivery OAB (overactive bladder) PUD (peptic ulcer disease) 11/26/2021 Urinary tract infection in , antepartum, second trimester (HCC) 03/28/2022 Urogenital trichomoniasis 2017 Not totally sure date ALLERGIES Amoxicillin MEDICATIONS Current Outpatient Medications Medication Sig venlafaxine ER (EFFEXOR XR) 37.5 mg 24 hr capsule Take 1 capsule by mouth once daily. SUMAtriptan (IMITREX) 100 mg tablet Take 1 tablet (100 mg) by mouth as needed for migraine headache (see administration instructions). hydrocortisone (ANUSOL-HC) 2.5 % rectal cream by RECTAL route two times a day. atomoxetine (STRATTERA) 40 mg capsule Take 1 capsule by mouth once daily. solifenacin 10 mg tablet Take 0.5 tablets by mouth once daily. metoprolol succinate ER (TOPROL XL) 25 mg 24 hr tablet Take 1 tablet by mouth once daily. No current facility-administered medications for this visit. Medications and allergies reviewed by this provider. SOCIAL HISTORY Social History Tobacco Use Smoking status: Former Current packs/day: 0.00 Average packs/day: 0.5 packs/day for 20.0 years (10.0 ttl pk-yrs) Types: Cigarettes Start date: 2000 Quit date: 2020 Years since quittin.2 Smokeless tobacco: Never Vaping Use Vaping status: current everyday user Substance Use Topics Alcohol use: Not Currently Drug use: Not Currently Types: Crystal Meth Comment: remission 06/2019 REVIEW OF SYSTEMS All other reviewed and negative other than HPI. OBJECTIVE: BP 122/78 Pulse 100 Resp 16 Wt 74.4 kg (164 lb) LMP 10/11/2024 (Approximate) SpO2 97% BMI 28.15 kg/m? . Vital signs reviewed by this provider. APPEARANCE Well appearing, alert, in no acute distress, well-hydrated, well nourished. EYES PERRLA, conjunctiva and sclera normal. EARS External ears normal, canals clear HEART RRR with normal S1 and S2, no murmurs, no gallops, no JVD appreciated LUNG clear to auscultation. No wheezes, rhonchi or rales EXTREMITIES Extremities normal, No deformities, No skin discoloration, and No edema SKIN Skin color, texture, turgor normal, no suspicious rashes or lesions Latest Ref Rng 07/08/2024 WBC 3.70 - 11.00 k/uL 7.59 RBC 3.90 - 5.20 m/uL 4.39 Hemoglobin 11.5 - 15.5 g/dL 13.6 Hematocrit 36.0 - 46.0 % 41.2 MCV 80.0 - 100.0 fL 93.8 MCH 26.0 - 34.0 pg 31.0 MCHC 30.5 - 36.0 g/dL 33.0 RDW-CV 11.5 - 15.0 % 12.2 Platelet Count 150 - 400 k/uL 354 MPV 9.0 - 12.7 fL 9.5 Neut% % 49.3 Abs Neut (ANC) 1.45 - 7.50 k/uL 3.74 Lymph% % 38.2 Abs Lymph 1.00 - 4.00 k/uL 2.90 Montrose% % 9.4 Abs Montrose <0.87 k/uL (more content not included)...[facility] 12-31-2024 History of Present illness Narrative* PodlogHui ac 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 ADHD: taking Strattera as prescribed without side effects. Would like to increase. Did note improvement in concentrating. Would like to increase dose Hx of migraines: taking Metoprolol as prescribed without side effects. Goes through periods where they are good for awhile then a period of time they are worse. Depression: taking Effexor as prescribed without side effects. Does feel some depression but is some better. Not currently attending counseling. Denies SI or HI. Would like to increase dose Taking Vesicare as prescribed. Helps some. Has not set up appointment for pelvic floor therapy Thinking of getting IUD removed. Would like another child HTN: Patient is compliant with meds Yes Monitors bp at home: No. Denies side effects: Yes. Chest pain: No. Dyspnea: No. Edema: No. Palpitations: No. Syncope: No. Headache: hx of migraines Dizziness: No. PAST MEDICAL HISTORY Diagnosis Date Abnormal Pap smear of cervix 2019 ASCUS neg HPV ADHD (attention deficit hyperactivity disorder), combined type 08/11/2018 Anemia Anxiety 07/07/2018 Bipolar disorder, in partial remission, most recent episode mixed ([facility]) 10/04/2019 Depression, major, recurrent, moderate ([facility]) 07/07/2018 Diet controlled gestational diabetes mellitus (GDM) in second trimester ([facility]) 07/05/2022 Drug use disorder remission since 06/2019; methamphetamines, marijuana Gastritis due to Helicobacter species 11/26/2021 Genital warts 1-29-09 Never seen again GERD without esophagitis 02/08/2022 Grand multiparity 09/11/2022 - history 4 prior SVDs, this will be delivery #5 - admission CBC 11.9 Group B Streptococcus carrier, antepartum ([facility]) 07/26/2021 Sensitive to Vanc Hemorrhoids Herpes simplex virus (HSV) infection 2008 Hypertension, essential 11/26/2021 Migraine without aura and without status migrainosus, not intractable 07/07/2018 MRSA infection 08/15/2021 -patient reports history of multi-site staph skin infection, is unsure if MRSA or MSSA -will treat with vancomycin preoperatively if need for delivery OAB (overactive bladder) PUD (peptic ulcer disease) 11/26/2021 Urinary tract infection in , antepartum, second trimester ([facility]) 03/28/2022 Urogenital trichomoniasis 2017 Not totally sure date ALLERGIES Amoxicillin MEDICATIONS Current Outpatient Medications Medication Sig venlafaxine ER (EFFEXOR XR) 37.5 mg 24 hr capsule Take 1 capsule by mouth once daily. SUMAtriptan (IMITREX) 100 mg tablet Take 1 tablet (100 mg) by mouth as needed for migraine headache(see administration instructions). hydrocortisone (ANUSOL-HC) 2.5 % rectal cream by RECTAL route two times a day. atomoxetine (STRATTERA) 40 mg capsule Take 1 capsule by mouth once daily. solifenacin 10 mg tablet Take 0.5 tablets by mouth once daily. metoprolol succinate ER (TOPROL XL) 25 mg 24 hr tablet Take 1 tablet by mouth once daily. No current facility-administered medications for this visit. Medications and allergies reviewed by this provider. SOCIAL HISTORY Social History Tobacco Use Smoking status: Former Current packs/day: 0.00 Average packs/day: 0.5 packs/day for 20.0 years (10.0 ttl pk-yrs) Types: Cigarettes Start date: 2000 Quit date: 2020 Years since quittin.2 Smokeless tobacco: Never Vaping Use Vaping status: current everyday user Substance Use Topics Alcohol use: Not Currently Drug use: Not Currently Types: Crystal Meth Comment: remission 06/2019 REVIEW OF SYSTEMS All other reviewed and negative other than HPI. OBJECTIVE: BP 122/78 Pulse 100 Resp 16 Wt 74.4 kg (164 lb) LMP 10/11/2024 (Approximate) SpO2 97% BMI 28.15 kg/m . Vital signs reviewed by this provider. APPEARANCE Well appearing, alert, in no acute distress, well-hydrated, well nourished. EYES PERRLA, conjunctiva and sclera normal. EARS External ears normal, canals clear HEART RRR with normal S1 and S2, no murmurs, no gallops, no JVD appreciated LUNG clear to auscultation. No wheezes, rhonchi or rales EXTREMITIES Extremities normal, No deformities, No skin discoloration, and No edema SKIN Skin color, texture, turgor normal, no suspicious rashes or lesions Latest Ref Rng 07/08/2024 WBC 3.70 - 11.00 k/uL 7.59 RBC 3.90 - 5.20 m/uL 4.39 Hemoglobin 11.5 - 15.5 g/dL 13.6 Hematocrit 36.0 - 46.0 % 41.2 MCV 80.0 - 100.0 fL 93.8 MCH 26.0 - 34.0 pg 31.0 MCHC 30.5 - 36.0 g/dL 33.0 RDW-CV 11.5 - 15.0 % 12.2 Platelet Count 150 - 400 k/uL 354 MPV 9.0 - 12.7 fL 9.5 Neut% % 49.3 Abs Neut (ANC) 1.45 - 7.50 k/uL 3.74 Lymph% % 38.2 Abs Lymph 1.00 - 4.00 k/uL 2.90 Montrose% % 9.4 Abs Montrose <0.87 k/uL 0.71 Eosin% % 1.8 Abs Eosin <0.46 k/uL 0.14 Baso% % 0.9 Abs Baso <0.11 k/uL 0.07 Immature Gran % % 0.4 IMMATURE GRANS (ABS) <0.10 k/uL 0.03 NRBC /100 WBC 0.0 Absolute nRBC <0.01 k/uL <0.01 DTYPE Auto Protein, Total 6.3 - 8.0 g/dL 6.5 Albumin 3.9 - 4.9 g/dL 4.2 Calcium 8.5 - 10.2 mg/dL 9.0 Bilirubin, Total 0.2 - 1.3 mg/dL 0.7 Alkaline Phosphatase 34 - 123 U/L 41 AST 13 - 35 U/L 13 ALT 7 - 38 U/L 10 Glucose 74 - 99 mg/dL 96 BUN 7 - 21 mg/dL 11 Creatinine 0.58 - 0.96 mg/dL 0.84 Sodium 136 - 144 mmol/L 140 Potassium 3.7 - 5.1 mmol/L 3.7 Chloride 98 - 107 mmol/L 106 CO2 22 - 30 mmol/L 24 Anion Gap 8 - 15 mmol/L 10 eGFR >=60 mL/min/1.73m 91 Cholesterol, Total <200 mg/dL 191 Triglyceride <150 mg/dL 102 HDL Cholesterol >39 mg/dL 35 (L) Non HDL Cholesterol <130 mg/dL 156 (H) Fasting Time hrs 12 VLDL Cholesterol <30 mg/dL 20 TC:HDL Ratio <5.10 5.46 (H) LDL Cholesterol <100 mg/dL 136 (H) LDL:HDL Ratio <2.54 3.89 (H) Legend: (L) Low (H) High Covid-19 Vaccine() due on 05/16/2024 Depression Screening due on 07/05/2025 Anxiety Screening due on 07/05/2025 Cervical Cancer Screening due on 10/18/2027 DTaP,Tdap,Td Vaccine(4 - Td or Tdap) due on 07/05/2032 Influenza Vaccine Completed Hepatitis C Screening Completed HIV Screening Completed Hepatitis B Vaccine Discontinued ASSESSMENT/PLAN: 1. Primary hypertension - ICD9: 401.9, ICD10: I10 (primary diagnosis) - Controlled - Continue current medications - Recommend home blood pressure monitoring, to bring results to next visit - Encouraged sodium restriction, DASH or Mediterranean diet - Recommend regular aerobic exercise - Discussed need for and benefit of weight loss. BMI 28.15 kg/(m^2) - Follow up in 6 months for hypertension visit 2. Migraine without aura and without status migrainosus, not intractable - ICD9: 346.10, ICD10: G43.009 - stable - SUMATRIPTAN 100 MG TABLET 3. ADHD (attention deficit hyperactivity disorder), combined type - ICD9: 314.01, ICD10: F90.2 - increase to 80 , follow-up if not improving - ATOMOXETINE 80 MG CAPSULE 4. OAB (overactive bladder) - ICD9: 596.51, ICD10: N32.81 - stable on current regime - recommend scheduling pelvic floor therapy 5. Recurrent major depressive disorder, remission status unspecified - ICD9: 296.30, ICD10: F33.9 - increase Effexor - counseling encouraged - VENLAFAXINE ER 75 MG CAPSULE,EXTENDED RELEASE 24 HR - follow-up if symptoms fail to improve Hui Valdes APRN.CNP Prescription instructions reviewed with patient as applicable. Patient advised if symptoms do not improve or if symptoms worsen sooner, to contact their primary care physician. Potential red flag symptoms discussed with the patient. Reviewed appropriate action plan to take if red flag symptoms occur. Patient agreeable to treatment plan. Medical Decision Making: Problems: Moderate: 2+ stable chronic illnesses and 1+ chronic illnesses with change Risk: Moderate: Drug management Medical Decision Making Level: 4 - Moderate [facility] Tele[facility] encounter Note * Telephone Encounter - Sonya Montelongo RN - 12/29/2024 8:06 AM EDT Please contact patient to schedule IUD removal. Sonya Montelongo RN [facility]04[facility] Miscellaneous Notes* Telephone Encounter - oSnya Montelongo RN - 12/29/2024 8:06 AM EDT Please contact patient to schedule IUD removal. Sonya Montelongo RN * Telephone Encounter - Temitope Bear APRN.CNM - 12/28/2024 4:59 PM EDT Order signed. Temitope Bear APRN.CNM * Telephone Encounter - Frances Parnell RN - 12/28/2024 4:42 PM EDT Received the following message from PSS: Patient is requesting to have their IUD removed. Please put in a order for this so that it can be scheduled. Order pending. Please file and then route to scheduling. Thank you. Frances Parnell RN [facility] Telephone encounter Note * Telephone Encounter - Temitope Bear APRN.CNM - 12/28/2024 4:59 PM EDT Order signed. Temitope Bear APRN.CNM [facility]04-15-[facility] Telephone encounter Note* Telephone Encounter - Frances Parnell RN - 12/28/2024 4:42 PM EDT Received the following message from PSS: Patient is requesting to have their IUD removed. Please put in a order for this so that it can be scheduled. Order pending. Please file and then route to scheduling. Thank you. Frances Parnell RN [facility]02-03-2025 NoteHNO ID: [id number] Author: TEMITOPE BEAR APRN.CNM Service: ? Author Type: [employer] Type: Progress Notes Filed: 10/18/2024 13:09 Note Text: Sia is a 39 year old who presents for an annual gynecologic exam without complaints. Still get period: No LMP: 10/11/2024 (Approx) Menses: Occasionally - Mirena IUD. May want this removed to conceive. Menstrual flow: Extremely light due to Mirena Bleeding amount bothersome: No Bleeding between periods: No Period symptoms: No Sexually active: Yes, . Together for 5 years. Contraception: IUD Contraception frequency: Always HPV: 01/18/2022 Negative Last pap smear: 01/18/2022 ASCUS History of abnormal pap: Yes Bothersome pelvic pain: No Last mammogram: never Mood swings: No Insomnia: No OB History T5 L5 SAB0 IAB1 Ectopic0 Multiple0 Live Births5 Horse Buyer History LMP: 10/11/2024 (Approximate), IUD Age at Menarche: 9 Age at First : 21 Age at Menopause: Horse Buyer History Comments: Sexual Activity: Yes; Male Contraception: No contraception data on record Menstrual Tracking History Flowsheet Row Appointment from 10/15/2024 in OB/Gynecology Period Cycle (Days) 7 Period Duration (Days) 7 Menstrual Flow Light PAST MEDICAL HISTORY Diagnosis Date Abnormal Pap smear of cervix 2019 ASCUS neg HPV ADHD (attention deficit hyperactivity disorder), combined type 08/11/2018 Anemia Anxiety 07/07/2018 Bipolar disorder, in partial remission, most recent episode mixed (HCC) 10/04/2019 Depression, major, recurrent, moderate (HCC) 07/07/2018 Diet controlled gestational diabetes mellitus (GDM) in second trimester 07/05/2022 Drug use disorder remission since 06/2019; methamphetamines, marijuana Gastritis due to Helicobacter species 11/26/2021 Genital warts --09 Never seen again GERD without esophagitis 02/08/2022 Grand multiparity 09/11/2022 - history 4 prior SVDs, this will be delivery #5 - admission CBC 11.9 Group B Streptococcus carrier, antepartum 07/26/2021 Sensitive to Vanc Hemorrhoids Herpes simplex virus (HSV) infection 2008 Hypertension, essential 11/26/2021 Migraine without aura and without status migrainosus, not intractable 07/07/2018 MRSA infection 08/15/2021 -patient reports history of multi-site staph skin infection, is unsure if MRSA or MSSA -will treat with vancomycin preoperatively if need for delivery OAB (overactive bladder) PUD (peptic ulcer disease) 11/26/2021 Urinary tract infection in , antepartum, second trimester 03/28/2022 Urogenital trichomoniasis 2017 Not totally sure date PAST SURGICAL HISTORY Procedure Laterality Date SECTION HX EGD DIAGNOSTIC 01/17/2023 INDUCED BY [facility] 2008 FAMILY HISTORY Problem Relation Age of Onset Heart Mother Hypertension Father No Known Problems Brother No Known Problems Brother No Known Problems Maternal Grandmother No Known Problems Maternal Grandfather Breast Cancer Paternal Grandmother Diabetes Paternal Grandmother No Known Problems Paternal Grandfather SOCIAL HISTORY Social History Tobacco Use Smoking status: Former Current packs/day: 0.00 Average packs/day: 0.5 packs/day for 20.0 years (10.0 ttl pk-yrs) Types: Cigarettes Start date: 2000 Quit date: 2020 Years since quittin.0 Smokeless tobacco: Never Vaping Use Vaping status: current everyday user Substance Use Topics Alcohol use: Not Currently 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 No bloating, early satiety, indigestion, or increased flatulence. Bladder: No dysuria, gross hematuria, urinary frequency, urinary urgency, or incontinence. Breast: No breast lumps, nipple d/c, overlying skin changes, redness or skin retraction. Allergies and current medication updated:Yes SENSITIVE EXAM: The sensitive examination was discussed with the Patient or Patient's Authorized Gas Manager. As applicable, any other physician, advance practice provider, medical student, or other health professional student that will be observing or involved in the sensitive examination for educational or training purposes was discussed with the Patient or Authorized Gas Manager. The Patient or Authorized Gas Manager has agreed to proceed with the sensitive examination. (Sensitive examination includes inspection and/or palpation of the breasts, pelvis, prostate and anorectal regions). EXAM: BP 126/74 Ht 5' 4 (1.63m) Wt 167 lb (75.8kg) LMP 10/11/2024 BMI 28.65 kg/(m2). GENERAL: pleasant, female in no apparent distress HEENT: Normocephalic, atraumatic, mucus membranes moist, and no lesions NECK: Supple, full range of motion, no adenopathy, and thyroid normal DERMATOLOGY: Normal, without lesions, non-icteric, and non-hirsute BREAST: soft, non-tender, sy (more content not included)...[facility]02-03-2025 History of Present illness Narrative* Temitope Bear APRN.NANCY - 10/18/2024 10:00 AM EST Sia is a 39 year old who presents for an annual gynecologic exam without complaints. Still get period: No LMP: 10/11/2024 (Approx) Menses: Occasionally - Mirena IUD. May want this removed to conceive. Menstrual flow: Extremely light due to Mirena Bleeding amount bothersome: No Bleeding between periods: No Period symptoms: No Sexually active: Yes, . Together for 5 years. Contraception: IUD Contraception frequency: Always HPV: 01/18/2022 Negative Last pap smear: 01/18/2022 ASCUS History of abnormal pap: Yes Bothersome pelvic pain: No Last mammogram: never Mood swings: No Insomnia: No OB History T5 L5 SAB0 IAB1 Ectopic0 Multiple0 Live Births5 Horse Buyer History LMP: 10/11/2024 (Approximate), IUD Age at Menarche: 9 Age at First : 21 Age at Menopause: Horse Buyer History Comments: Sexual Activity: Yes; Male Contraception: No contraception data on record Menstrual Tracking History Flowsheet Row Appointment from 10/15/2024 in OB/Gynecology Period Cycle (Days) 7 Period Duration (Days) 7 Menstrual Flow Light PAST MEDICAL HISTORY Diagnosis Date Abnormal Pap smear of cervix 2019 ASCUS neg HPV ADHD (attention deficit hyperactivity disorder), combined type 08/11/2018 Anemia Anxiety 07/07/2018 Bipolar disorder, in partial remission, most recent episode mixed (HCC) 10/04/2019 Depression, major, recurrent, moderate (HCC) 07/07/2018 Diet controlled gestational diabetes mellitus (GDM) in second trimester 07/05/2022 Drug use disorder remission since 06/2019; methamphetamines, marijuana Gastritis due to Helicobacter species 11/26/2021 Genital warts 10-13-08 Never seen again GERD without esophagitis 02/08/2022 Grand multiparity 09/11/2022 - history 4 prior SVDs, this will be delivery #5 - admission CBC 11.9 Group B Streptococcus carrier, antepartum 07/26/2021 Sensitive to Vanc Hemorrhoids Herpes simplex virus (HSV) infection 2008 Hypertension, essential 11/26/2021 Migraine without aura and without status migrainosus, not intractable 07/07/2018 MRSA infection 08/15/2021 -patient reports history of multi-site staph skin infection, is unsure if MRSA or MSSA -will treat with vancomycin preoperatively if need for delivery OAB (overactive bladder) PUD (peptic ulcer disease) 11/26/2021 Urinary tract infection in , antepartum, second trimester 03/28/2022 Urogenital trichomoniasis 2017 Not totally sure date PAST SURGICAL HISTORY Procedure Laterality Date SECTION HX EGD DIAGNOSTIC 01/17/2023 INDUCED BY [facility] 2008 FAMILY HISTORY Problem Relation Age of Onset Heart Mother Hypertension Father No Known Problems Brother No Known Problems Brother No Known Problems Maternal Grandmother No Known Problems Maternal Grandfather Breast Cancer Paternal Grandmother Diabetes Paternal Grandmother No Known Problems Paternal Grandfather SOCIAL HISTORY Social History Tobacco Use Smoking status: Former Current packs/day: 0.00 Average packs/day: 0.5 packs/day for 20.0 years (10.0 ttl pk-yrs) Types: Cigarettes Start date: 2000 Quit date: 2020 Years since quittin.0 Smokeless tobacco: Never Vaping Use Vaping status: current everyday user Substance Use Topics Alcohol use: Not Currently 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 No bloating, early satiety, indigestion, or increased flatulence. Bladder: No dysuria, gross hematuria, urinary frequency, urinary urgency, or incontinence. Breast: No breast lumps, nipple d/c, overlying skin changes, redness or skin retraction. Allergies and current medication updated:Yes SENSITIVE EXAM: The sensitive examination was discussed with the Patient or Patient's Authorized Gas Manager. As applicable, any other physician, advance practice provider, medical student, or other health professional student that will be observing or involved in the sensitive examination for educational or training purposes was discussed with the Patient or Authorized Gas Manager. The Patient or Authorized Gas Manager has agreed to proceed with the sensitive examination. (Sensitive examination includes inspection and/or palpation of the breasts, pelvis, prostate and anorectal regions). EXAM: BP 126/74 Ht 5' 4 (1.63m) Wt 167 lb (75.8kg) LMP 10/11/2024 BMI 28.65 kg/(m^2). GENERAL: pleasant, female in no apparent distress HEENT: Normocephalic, atraumatic, mucus membranes moist, and no lesions NECK: Supple, full range of motion, no adenopathy, and thyroid normal DERMATOLOGY: Normal, without lesions, non-icteric, and non-hirsute BREAST: soft, non-tender, symmetric, no dominant mass, normal nipple-areolar complex, no lymphadenopathy, and no nipple discharge CHEST: Normal inspiratory effort ABDOMEN: soft, non-tender, and no masses PELVIC: external genitalia normal, normal Bartholin's glands, urethra, Sidell's glands, no vulvar lesions, no cervical lesions, good vaginal support, physiologic discharge present, normal appearing perineal body and perianal region BIMANUAL: uterus normal size, shape and consistency, no adnexal masses, and non-tender RECTOVAGINAL: deferred. NEURO: alert and oriented x3,exam grossly non-focal EXTREMITIES: normal ASSESSMENT/PLAN: 1. Encounter for gynecological examination (general) (routine) with abnormal findings - ICD9: V72.31, ICD10: Z01.411 (primary diagnosis) - Completed pelvic and breast exam - Encouraged monthly BSE - Follow up for annual exam in one year. - PAP TEST 2. Screening for cervical cancer - ICD9: V76.2, ICD10: Z12.4 - Completed pelvic and breast exam - Encouraged monthly BSE - Follow up for annual exam in one year. - PAP TEST 3. Encounter for screening for human papillomavirus (HPV) - ICD9: V73.81, ICD10: Z11.51 - PAP TEST 4. Encounter for screening mammogram for breast cancer - ICD9: V76.12, ICD10: Z12.31 - Completed pelvic and breast exam - Encouraged monthly BSE - Follow up for annual exam in one year. - CHARIS SCREENING W JORGE 5. Dense breast tissue - ICD9: 793.82, ICD10: R92.30 - CHARIS SCREENING W JORGE 6. Screening for STDs (sexually transmitted diseases) - ICD9: V74.5, ICD10: Z11.3 - BACTERIAL VAGINOSIS NAAT - ALEX/TRICHOMONAS NAAT - GONORRHEA/CHLAMYDIA NAAT - SYPHILIS TREPONEMAL W/REFLEX - HIV 1/2 COMBO WITH REFLEX TO DIFFERENTIATION - HEPATITIS C ANTIBODY IA WITH CONFIRMATION - HEPATITIS B SURFACE ANTIGEN 7. IUD (intrauterine device) in place - ICD9: V45.51, ICD10: Z97.5 8. Encounter for preconception consultation - ICD9: V26.49, ICD10: Z31.69 -Reviewed ok for IUD removal whenever she decides she is ready to conceive. -Discussed risk of smoking/vaping and and advised cessation -Reviewed AMA and potential risks -Start PNV 1) Health maintenance: Pap done with HPV. Mammogram ordered. Nutrition, exercise and routine health maintenance exams reviewed. Calcium/Vitamin D supplementation information provided. Smoking cessation: Smoking cessation encouraged and resources provided. Benefits of smoking cessation reviewed. Patient encouraged to avoid smoking. Colon cancer screening: start at age 45 Lipids/glucose: followed by PCP Vitamin D: followed by PCP 2) Contraception: IUD. Contraceptive options reviewed and information provided. 3) STD screening: Accepts full STD screeening including HIV, Syphilis and Hepatitis. 4) Follow up one year or sooner as needed Temitope Bear APRN.CNM [facility] Tele[facility] encounter Note * Telephone Encounter - Sharon Warren RN - 10/13/2024 7:47 PM EST Please see other MyChart request with med refills in it. [facility]01-[facility] Miscellaneous Notes* Telephone Encounter - Sharon Warren RN - 10/13/2024 7:47 PM EST Please see other MyChart request with med refills in it. [facility] Telephone encounter Note * Telephone Encounter - Sharon Warren RN - 10/13/2024 7:41 PM EST Pt sends in MyChart request for med refills. Pt has a [facility] pharmacy in [place] as preferred pharmacy. Pt lives in [place] and last scripts went to [facility]. Called and confirmed with pt that was an error and she would like prescriptions to go to [facility]. The last office visit in the department: 07/05/2024 Does the patient have a future office visit with this provider/department: Yes 01/03/2025 Requested Prescriptions Pending Prescriptions Disp Refills venlafaxine ER (EFFEXOR XR) 37.5 mg 24 hr capsule 30 capsule 2 Sig: Take 1 capsule by mouth once daily. SUMAtriptan (IMITREX) 100 mg tablet 9 tablet 2 Sig: Take 1 tablet (100 mg) by mouth as needed for migraine headache (see administration instructions). Sharon Warren RN October 13, 2024 7:41 PM [facility]01[facility] Miscellaneous Notes* Telephone Encounter - Sharon Warren RN - 10/13/2024 7:41 PM EST Pt sends in MyChart request for med refills. Pt has a [facility] pharmacy in [place] as preferred pharmacy. Pt lives in [place] and last scripts went to [facility]. Called and confirmed with pt that was an error and she would like prescriptions to go to [facility]. The last office visit in the department: 07/05/2024 Does the patient have a future office visit with this provider/department: Yes 01/03/2025 Requested Prescriptions Pending Prescriptions Disp Refills venlafaxine ER (EFFEXOR XR) 37.5 mg 24 hr capsule 30 capsule 2 Sig: Take 1 capsule by mouth once daily. SUMAtriptan (IMITREX) 100 mg tablet 9 tablet 2 Sig: Take 1 tablet (100 mg) by mouth as needed for migraine headache (see administration instructions). Sharon Warren RN October 13, 2024 7:41 PM documented in [facility]Main [facility] Telephone encounter Note * Telephone Encounter - Rebecca Rhodes - 08/13/2024 3:44 PM EST POPULATION HEALTH NAVIGATION OUTREACH Action/ 1st attempt, call placed to pt for PT consult for OAB (overactive bladder) [N32.81]. Order is date07/05/24. Pt declined to [facility] at this time. Pt plans to go to an outside facility for care. Pt will manage own appt. Reason for Outreach Care Gap/HCC or Scheduling Wellness Visits Care Gaps due: N/A Physical Therapy Patient Contacted: Spoke to patient/parent/or legal guardian Patient identified by name and : Yes Care Gap/HCC/Scheduling Wellness actions taken: Patient declined: Patient Declines Navigation Scheduling / Outreach Navigation Signature: Rebecca Rhodes August 13, 2024 3:44 PM [facility] Miscellaneous Notes* Telephone Encounter - Rebecca Rhodes - 08/13/2024 3:44 PM EST POPULATION HEALTH NAVIGATION OUTREACH Action/ 1st attempt, call placed to pt for PT consult for OAB (overactive bladder) [N32.81]. Order is 07/05/24. Pt declined to [facility] at this time. Pt plans to go to an outside facility for care. Pt will manage own appt. Reason for Outreach Care Gap/HCC or Scheduling Wellness Visits Care Gaps due: N/A Physical Therapy Patient Contacted: Spoke to patient/parent/or legal guardian Patient identified by name and : Yes Care Gap/HCC/Scheduling Wellness actions taken: Patient declined: Patient Declines Navigation Scheduling / Outreach Navigation Signature: Rebecca Rhodes August 13, 2024 3:44 PM documented in this encounterMain [facility]11-[facility]24 Telephone encounter Note * Telephone Encounter - Lourdes Whitehead MA - 07/26/2024 7:31 PM EST Prescription Refill Information The patient has been identified by name and date of : Yes Caregiver verified no other encounters exist for this prescription request: Yes Caregiver confirmed with patient/requestor that no other refills are due, in the near future, with this provider at this time: No The last office visit in the department: 07/05/24 Does the patient have a future office visit with this provider/department: Yes Requested Prescriptions Pending Prescriptions Disp Refills hydrocortisone (ANUSOL-HC) 2.5 % rectal cream 28 g 3 Sig: by RECTAL route two times a day. SUMAtriptan (IMITREX) 100 mg tablet 9 tablet 11 Sig: Take 1 tablet (100 mg) by mouth as needed for migraine headache (see administration instructions). Lourdes Whitehead MA July 26, 2024 7:32 PM [facility] Miscellaneous Notes* Telephone Encounter - Lourdes Whitehead MA - 07/26/2024 7:31 PM EST Prescription Refill Information The patient has been identified by name and date of : Yes Caregiver verified no other encounters exist for this prescription request: Yes Caregiver confirmed with patient/requestor that no other refills are due, in the near future, with this provider at this time: No The last office visit in the department: 07/05/24 Does the patient have a future office visit with this provider/department: Yes Requested Prescriptions Pending Prescriptions Disp Refills hydrocortisone (ANUSOL-HC) 2.5 % rectal cream 28 g 3 Sig: by RECTAL route two times a day. SUMAtriptan (IMITREX) 100 mg tablet 9 tablet 11 Sig: Take 1 tablet (100 mg) by mouth as needed for migraine headache (see administration instructions). Lourdes Whitehead MA July 26, 2024 7:32 PM documented in this encounterMain [facility] Center10-21-2024 NoteHNO ID: [id number] Author: HUI VALDES APRN.GROUP WORKER Service: ? Author Type: Nurse Practitioner Type: Progress Notes Filed: 07/05/2024 15:14 Note Text: 07/05/2024 Patient presents with: Establish Care SUBJECTIVE: This is a 38 year old that is here today for Above Complaints.. Struggles with focusing. Used to take ADHD medication. Used to be on Strattera which helped some. Admits to some depression but thinks it is due to her untreated ADHD. Currently attending counseling for marriage. Denies SI or HI. Some difficulty with sleeping due to kids do not sleep well. Recently son diagnosed with autism. Denies SI, HI or insomnia Urinates frequently and can have stress incontinence at times. Taking solifenacin which helps some. Was going to go to pelvic floor therapy but moved from [place] going [place] go Hx of migraines. Take Metoprolol which controls them Working on losing weight. Eating better. Trying to get to 150# Past medical, surgical, family, social hx, medications, allergies and health maintenance reviewed and updated PAST MEDICAL HISTORY Diagnosis Date Abnormal Pap smear of cervix 2019 ASCUS neg HPV ADHD (attention deficit hyperactivity disorder), combined type 08/11/2018 Anemia Anxiety 07/07/2018 Bipolar disorder, in partial remission, most recent episode mixed (HCC) 10/04/2019 Depression, major, recurrent, moderate (HCC) 07/07/2018 Diet controlled gestational diabetes mellitus (GDM) in second trimester 07/05/2022 Drug use disorder remission since 06/2019; methamphetamines, marijuana Gastritis due to Helicobacter species 11/26/2021 GERD without esophagitis 02/08/2022 Grand multiparity 09/11/2022 - history 4 prior SVDs, this will be delivery #5 - admission CBC 11.9 Group B Streptococcus carrier, antepartum 07/26/2021 Sensitive to Vanc Herpes simplex virus (HSV) infection 2009 Hypertension, essential 11/26/2021 Migraine without aura and without status migrainosus, not intractable 07/07/2018 MRSA infection 08/15/2021 -patient reports history of multi-site staph skin infection, is unsure if MRSA or MSSA -will treat with vancomycin preoperatively if need for delivery OAB (overactive bladder) PUD (peptic ulcer disease) 11/26/2021 Urinary tract infection in , antepartum, second trimester 03/28/2022 ALLERGIES Amoxicillin MEDICATIONS Current Outpatient Medications Medication Sig solifenacin 10 mg tablet Take 0.5 tablets by mouth once daily. SUMAtriptan (IMITREX) 100 mg tablet Take 1 tablet (100 mg) by mouth as needed for migraine headache (see administration instructions). hydrocortisone (ANUSOL-HC) 2.5 % rectal cream by RECTAL route two times a day. metoprolol succinate ER (TOPROL XL) 25 mg 24 hr tablet Take 1 tablet by mouth once daily. terbinafine HCl (LAMISIL) 250 mg tablet Take 1 tablet by mouth once daily. (Patient not taking: Reported on 07/05/2024) No current facility-administered medications for this visit. Medications and allergies reviewed by this provider. SOCIAL HISTORY Social History Tobacco Use Smoking status: Former Current packs/day: 0.00 Average packs/day: 0.5 packs/day for 20.0 years (10.0 ttl pk-yrs) Types: Cigarettes Start date: 2000 Quit date: 2020 Years since quittin.8 Smokeless tobacco: Never Vaping Use Vaping status: Never Used Substance Use Topics Alcohol use: Not Currently Comment: rarely Drug use: Not Currently Types: Crystal Meth Comment: remission 06/2019 REVIEW OF SYSTEMS GENERAL: No weight loss, malaise or fevers HEENT: No changes in hearing or vision, no nose bleeds or other nasal problems NECK: Negative for lumps, goiter, pain and significant neck swelling RESPIRATORY: Negative for cough, hemoptysis, wheezing, COPD, dyspnea or shortness of breath CARDIOVASCULAR: Negative for chest pain, leg swelling, hypertension, CHF or palpitations GI: No nausea, vomiting, or diarrhea : See HPI RN CLINICAL APPEALS: Negative for abnormal vaginal bleeding, abnormal vaginal discharge MUSCULOSKELETAL: Negative for joint pain or swelling, back pain or muscle pain SKIN: Negative for lesions, rash, and itching PSYCH: See HPI HEMATOLOGY/LYMPHOLOGY: Negative for prolonged bleeding, bruising easily or swollen nodes ENDOCRINE: Negative for cold or heat intolerance, polyuria, polydipsia and goiter NEURO: No history of syncope, paralysis, seizures or tremors All other reviewed and negative other than HPI. OBJECTIVE: BP 136/84 Pulse 94 Resp 16 Ht 160.4 cm (5' 3.15) Wt 78.8 kg (173 lb 11.6 oz) LMP 08/03/2023 (Within Weeks) SpO2 98% BMI 30.63 kg/m? . Vital signs reviewed by this provider. APPEARANCE Well appearing, alert, in no acute distress, well-hydrated, well nourished. EYES conjunctiva and sclera normal. EARS External ears normal, canals clear NECK Supple, no adenopathy; thyroid symmetric, normal size, no bruits HEART RRR with normal S1 and (more content not included)...[facility]10-21-2024 History of Present illness Narrative* Podlogar, JAZ Ames.GROUP WORKER - 07/05/2024 1:02 PM EDT 07/05/2024 Patient presents with: Establish Care SUBJECTIVE: This is a 38 year old that is here today for Above Complaints.. Struggles with focusing. Used to take ADHD medication. Used to be on Strattera which helped some. Admits to some depression but thinks it is due to her untreated ADHD. Currently attending counseling for marriage. Denies SI or HI. Some difficulty with sleeping due to kids do not sleep well. Recentlyson diagnosed with autism. Denies SI, HI or insomnia Urinates frequently and can have stress incontinence at times. Taking solifenacin which helps some.Was going to go to pelvic floor therapy but moved from [place] which is were [place] going to go Hx of migraines. Take Metoprolol which controls them Working on losing weight. Eating better. Trying to get to 150# Past medical, surgical, family, social hx, medications, allergies and health maintenance reviewed and updated PAST MEDICAL HISTORY Diagnosis Date Abnormal Pap smear of cervix 2019 ASCUS neg HPV ADHD (attention deficit hyperactivity disorder), combined type 08/11/2018 Anemia Anxiety 07/07/2018 Bipolar disorder, in partial remission, most recent episode mixed (HCC) 10/04/2019 Depression, major, recurrent, moderate (HCC) 07/07/2018 Diet controlled gestational diabetes mellitus (GDM) in second trimester 07/05/2022 Drug use disorder remission since 06/2019; methamphetamines, marijuana Gastritis due to Helicobacter species 11/26/2021 GERD without esophagitis 02/08/2022 Grand multiparity 09/11/2022 - history 4 prior SVDs, this will be delivery #5 - admission CBC 11.9 Group B Streptococcus carrier, antepartum 07/26/2021 Sensitive to Vanc Herpes simplex virus (HSV) infection 2008 Hypertension, essential 11/26/2021 Migraine without aura and without status migrainosus, not intractable 07/07/2018 MRSA infection 08/15/2021 -patient reports history of multi-site staph skin infection, is unsure if MRSA or MSSA -will treat with vancomycin preoperatively if need for delivery OAB (overactive bladder) PUD (peptic ulcer disease) 11/26/2021 Urinary tract infection in , antepartum, second trimester 03/28/2022 ALLERGIES Amoxicillin MEDICATIONS Current Outpatient Medications Medication Sig solifenacin 10 mg tablet Take 0.5 tablets by mouth once daily. SUMAtriptan (IMITREX) 100 mg tablet Take 1 tablet (100 mg) by mouth as needed for migraine headache(see administration instructions). hydrocortisone (ANUSOL-HC) 2.5 % rectal cream by RECTAL route two times a day. metoprolol succinate ER (TOPROL XL) 25 mg 24 hr tablet Take 1 tablet by mouth once daily. terbinafine HCl (LAMISIL) 250 mg tablet Take 1 tablet by mouth once daily. (Patient not taking: Reported on 07/05/2024) No current facility-administered medications for this visit. Medications and allergies reviewed by this provider. SOCIAL HISTORY Social History Tobacco Use Smoking status: Former Current packs/day: 0.00 Average packs/day: 0.5 packs/day for 20.0 years (10.0 ttl pk-yrs) Types: Cigarettes Start date: 2000 Quit date: 2020 Years since quittin.8 Smokeless tobacco: Never Vaping Use Vaping status: Never Used Substance Use Topics Alcohol use: Not Currently Comment: rarely Drug use: Not Currently Types: Crystal Meth Comment: remission 06/2019 REVIEW OF SYSTEMS GENERAL: No weight loss, malaise or fevers HEENT: No changes in hearing or vision, no nose bleeds or other nasal problems NECK: Negative for lumps, goiter, pain and significant neck swelling RESPIRATORY: Negative for cough, hemoptysis, wheezing, COPD, dyspnea or shortness of breath CARDIOVASCULAR: Negative for chest pain, leg swelling, hypertension, CHF or palpitations GI: No nausea, vomiting, or diarrhea : See HPI RN CLINICAL APPEALS: Negative for abnormal vaginal bleeding, abnormal vaginal discharge MUSCULOSKELETAL: Negative for joint pain or swelling, back pain or muscle pain SKIN: Negative for lesions, rash, and itching PSYCH: See HPI HEMATOLOGY/LYMPHOLOGY: Negative for prolonged bleeding, bruising easily or swollen nodes ENDOCRINE: Negative for cold or heat intolerance, polyuria, polydipsia and goiter NEURO: No history of syncope, paralysis, seizures or tremors All other reviewed and negative other than HPI. OBJECTIVE: BP 136/84 Pulse 94 Resp 16 Ht 160.4 cm (5' 3.15) Wt 78.8 kg (173 lb 11.6 oz) LMP 08/03/2023 (Within Weeks) SpO2 98% BMI 30.63 kg/m . Vital signs reviewed by this provider. APPEARANCE Well appearing, alert, in no acute distress, well-hydrated, well nourished. EYES conjunctiva and sclera normal. EARS External ears normal, canals clear NECK Supple, no adenopathy; thyroid symmetric, normal size, no bruits HEART RRR with normal S1 and S2, no murmurs, no gallops, no JVD appreciated LUNG clear to auscultation. No wheezes, rhonchi or rales ABDOMEN bowel sounds normoactive, no bruits, soft, non-tender, non-distended, reducible hernia above umbilicus EXTREMITIES Extremities normal, No deformities, No skin discoloration, and No edema SKIN Skin color, texture, turgor normal, no suspicious rashes or lesions to exposed skin Depression Screening Never done Anxiety Screening Never done Influenza Vaccine(1) due on 05/16/2024 Covid-19 Vaccine( - season) due on 05/16/2024 BP Controlled (<130/80) due on 10/03/2024 Cervical Cancer Screening due on 01/18/2025 Annual PCP Team Chronic Disease Visit due on 07/05/2025 DTaP,Tdap,Td Vaccine(4 - Td or Tdap) due on 07/05/2032 Hepatitis C Screening Completed HIV Screening Completed HPV Vaccine Aged Out Hepatitis B Vaccine Discontinued ASSESSMENT/PLAN: 1. Encounter for medical examination to establish care - ICD9: V70.9, ICD10: Z00.00 (primary diagnosis) - Counseled on healthy diet and regular exercise - Follow up for annual exam in one year - continue to work on weight loss - COMPLETE BLOOD COUNT AND DIFFERENTIAL - COMPREHENSIVE METABOLIC PANEL - LIPID PANEL BASIC 2. Screening for depression - ICD9: V79.0, ICD10: Z13.31 - DEPRESSION SCREENING 3. Encounter for screening examination for other mental health and behavioral disorders - ICD9: V79.8, ICD10: Z13.39 - ANXIETY SCREENING 4. Encounter for immunization - ICD9: V03.89, ICD10: Z23 - INFLUENZA VACCINE, AGE 6MO-64YR, TRIVALENT (AFLURIA, FLULAVAL, FLUVIRIN, FLUZONE) 5. Migraine without aura and without status migrainosus, not intractable - ICD9: 346.10, ICD10: G43.009 - stable on current regime - METOPROLOL SUCCINATE ER 25 MG TABLET,EXTENDED RELEASE 24 HR 6. ADHD (attention deficit hyperactivity disorder), combined type - ICD9: 314.01, ICD10: F90.2 - come side effects discussed, verbalizes understanding - ATOMOXETINE 40 MG CAPSULE - follow-up if symptoms fail to improve 7. OAB (overactive bladder) - ICD9: 596.51, ICD10: N32.81 - continue medication - CONSULT TO PHYSICAL THERAPY 8. Encounter for screening for human papillomavirus (HPV) - ICD9: V73.81, ICD10: Z11.51 - CONSULT TO GYNECOLOGY Hui Valdes APRN.CNP Prescription instructions reviewed with patient as applicable. Patient advised if symptoms do not improve or if symptoms worsen sooner, to contact their primary care physician. Potential red flag symptoms discussed with the patient. Reviewed appropriate action plan to take if red flag symptoms occur. Patient agreeable to treatment plan. Medical Decision Making: Problems: Moderate: 1+ chronic illnesses with change and 2+ stable chronic illnesses Data: Unique test(s) ordered: 3+ Risk: Moderate: Drug management and Moderate risk from testing/treatment Medical Decision Making Level: 4 - Moderate [facility] Miscellaneous Notes* Telephone Encounter - Michelle Osborn LPN - 12/31/2023 7:45 AM EDT Sent to covering provider documented in this encounterMain [facility]02-23-[facility]24 NoteHNO ID: [id number] Author: JOANNA WILKES MD Service: ? Author Type: Physician Type: Progress Notes Filed: 12/14/2023 10:49 Note Text: [facility] NEW PATIENT CONSULT/HISTORY AND PHYSICAL PATIENT: Sia Olivera (38 year old) REFERRING PROVIDER: Shaun Carlin PCP: Shaun Carlin MD Consultation requested by Shaun Carlin for an opinion regarding Sia Olivera. My final recommendations will be communicated back to the requesting physician by way of shared Medical record or letter to requesting physician. ASSESSMENT/PLAN: 1. Urinary urgency/nocturia Urgency is her most bothersome symptom and is sometimes associated with suprapubic/lower abdominal pain. We discussed the etiology and management of urgency urinary incontinence, urinary urgency and frequency (also known as overactive bladder). I described our care pathway for this problem. I reviewed 1st and 2nd line treatment options including lifetstyle modifications, behavioral therapy, bladder retraining +/- physical therapy, and medications. - First-line therapy: Referral sent to pelvic for physical therapy -She has tried 2 medications including Myrbetriq and oxybutynin at 2 different doses. - Vesicare (Solifenacin) 10 mg was prescribed. Medication and side effects have been explained. Rx sent to pharmacy. Additional information provided in the AVS 2. Stress urinary incontinence. Discussed treatment of stress incontinence including pelvic floor physical therapy, pessary, surgical reaction with urethral sling or bulking agents. -A referral was sent to pelvic floor physical therapy -May be a good bulking agent if she wants to be She will follow-up with me in 3 months for recheck CHIEF COMPLAINT: Urinary incontinence HISTORY OF PRESENT ILLNESS: Patient is a 38-year-old female whom I was asked to see by her primary care provider for stress incontinence and overactive bladder symptoms. Symptoms began of the of her daughter in 2008. She states I have dealt with it , but would like to move forward with additional evaluation and management. Her most bothersome symptom is urgency. Cold triggers urgency but water and turning the enriquez in the door do not. She has tried 2 medications, Myrbetriq 50 mg and oxybutynin at 5 until nighttime doses. Neither were particularly helpful. She has done Kegel exercises without benefit. Current voiding concerns Daytime frequency: Urinary urgency: Yes, and sometimes associated with suprapubic pain. Most bothersome symptom Nocturia: X 3-5 Urinary urge incontinence: No Stress urinary incontinence: Yes, with cough, laugh, and sneeze. She crosses her legs to prevent leakage. She has occasional urinary hesitancy, most likely if she has severe urinary urgency or after sexual activity. She denies straining to urinate or slow stream. She has double voiding 1/10 times Has occasional dysuria. Denies gross hematuria or malodorous urine. No recent UTIs. Denies vaginal bulge, pressure. Has occasional vaginal discharge/odor Management strategies Conservative strategies: Kegel exercises Protective undergarments: No. Changes underwear Medications: Myrbetriq 50 mg, was tried in 2019 but was not helpful;oxybutynin 5 mg, increase to 10 mg in 2018. Not helpful. Bowels 2-3 bowel movements per week. Occasional fecal urgency. No fecal incontinence. Stool consistency: Normal No stool trapping. Former smoker. Half pack per day for 10 years. Quit 2020. No family history of urologic cancers The patient completed a PFDI-20 and I have reviewed and confirmed the responses documented by my nurse/MA at today's visit. Today's residual urine assessment by ultrasound is 70 mL ml. Today's urinalysis shows trace, intact blood. Negative nitrite. Neck leukocyte. I personally reviewed the past medical records received from the referring provider. I personally reviewed the prior radiology images, and my findings were discussed with the patient. I personally reviewed the prior labs, and my findings were discussed with the patient. 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 She does not have dyspareunia. Endorses low libido REVIEW OF SYSTEMS Genitourinary: SEE HPI Constitutional: u (more content not included)...[facility] 07-01-2023 History of Present illness Narrative* Shaun Carlin MD - 07/01/2023 10:20 AM EDT The patient is a 37-year-old female who presents for routine physical and follow-up on her chronic conditions. Due for routine labs, immunizations. She is not currently taking medications for blood pressure or cholesterol. BP has been well controlled. She was able to get off her PPI with losing weight and stopping nsaids. Doing well overall. HISTORY REVIEWED PAST MEDICAL HISTORY Diagnosis Date Abnormal Pap smear of cervix 2019 ASCUS neg HPV ADHD (attention deficit hyperactivity disorder), combined type 08/11/2018 Anemia Anxiety 07/07/2018 Bipolar disorder, in partial remission, most recent episode mixed (HCC) 10/04/2019 Depression, major, recurrent, moderate (HCC) 07/07/2018 Diet controlled gestational diabetes mellitus (GDM) in second trimester 07/05/2022 Drug use disorder remission since 06/2019; methamphetamines, marijuana Gastritis due to Helicobacter species 11/26/2021 GERD without esophagitis 02/08/2022 Grand multiparity 09/11/2022 - history 4 prior SVDs, this will be delivery #5 - admission CBC 11.9 Group B Streptococcus carrier, antepartum 07/26/2021 Sensitive to Vanc Herpes simplex virus (HSV) infection 2008 Hypertension, essential 11/26/2021 Migraine without aura and without status migrainosus, not intractable 07/07/2018 MRSA infection 08/15/2021 -patient reports history of multi-site staph skin infection, is unsure if MRSA or MSSA -will treat with vancomycin preoperatively if need for delivery OAB (overactive bladder) PUD (peptic ulcer disease) 11/26/2021 Urinary tract infection in , antepartum, second trimester 03/28/2022 PAST SURGICAL HISTORY Procedure Laterality Date SECTION HX EGD DIAGNOSTIC 01/17/2023 INDUCED BY [facility] 2008 FAMILY HISTORY Problem Relation Age of Onset Heart Mother Hypertension Father No Known Problems Brother No Known Problems Maternal Grandmother No Known Problems Maternal Grandfather Breast Cancer Paternal Grandmother No Known Problems Paternal Grandfather No Known Problems Brother Social History Social History Narrative Not on file Allergies: ALLERGIES Allergen Reactions Amoxicillin Unknown WAS TOLD BY MOM Medications: terbinafine HCl (LAMISIL) 250 mg tablet Take 1 tablet by mouth once daily. SUMAtriptan (IMITREX) 100 mg tablet Take 1 tablet (100 mg) by mouth as needed for migraine headache(see administration instructions). hydrocortisone (ANUSOL-HC) 2.5 % rectal cream by RECTAL route two times a day. Problem List: ACTIVE PROBLEM LIST Obesity, Class I, Bmi 30-34.9 - 07/01/2023 Hyperlipidemia, Mixed - 11/26/2021 Migraine Without Aura and Without Status Migrainosus, Not Intractable - 07/07/2018 Review of Systems Constitutional: Negative for chills and fever. HENT: Negative for congestion and sore throat. Eyes: Negative for pain and redness. Respiratory: Negative for cough and shortness of breath. Cardiovascular: Negative for chest pain and palpitations. Gastrointestinal: Negative for abdominal pain, blood in stool, constipation, diarrhea, nausea and vomiting. Genitourinary: Negative for dysuria and hematuria. Musculoskeletal: Negative for back pain and myalgias. Skin: Negative for color change and rash. Neurological: Negative for dizziness and weakness. Psychiatric/Behavioral: Negative for dysphoric mood. The patient is not nervous/anxious. Physical Exam Vitals and nursing note reviewed. Constitutional: General: She is not in acute distress. Appearance: She is not diaphoretic. HENT: Head: Normocephalic and atraumatic. Right Ear: Tympanic membrane, ear canal and external ear normal. Left Ear: Tympanic membrane, ear canal and external ear normal. Nose: Nose normal. No rhinorrhea. Mouth/Throat: Mouth: Mucous membranes are moist. Pharynx: Oropharynx is clear. Eyes: General: Right eye: No discharge. Left eye: No discharge. Conjunctiva/sclera: Conjunctivae normal. Pupils: Pupils are equal, round, and reactive to light. Neck: Thyroid: No thyroid mass or thyromegaly. Trachea: No tracheal deviation. Cardiovascular: Rate and Rhythm: Normal rate and regular rhythm. Heart sounds: Normal heart sounds. No murmur heard. No friction rub. No gallop. Pulmonary: Effort: Pulmonary effort is normal. No respiratory distress. Breath sounds: Normal breath sounds. No wheezing, rhonchi or rales. Abdominal: General: There is no distension. Palpations: Abdomen is soft. Tenderness: There is no abdominal tenderness. Musculoskeletal: General: No swelling or signs of injury. Cervical back: Neck supple. Lymphadenopathy: Cervical: No cervical adenopathy. Skin: General: Skin is warm and dry. Neurological: Mental Status: She is alert and oriented to person, place, and time. Mental status is at baseline. Psychiatric: Mood and Affect: Mood normal. Behavior: Behavior normal. BP 102/86 Pulse 64 Temp 36.9 C (98.4 F) Ht 161.3 cm (5' 3.5) Wt 87.1 kg (192 lb) LMP 12/09/2022 (Exact Date) BMI 33.48 kg/m ASSESSMENT/PLAN: 1. Routine physical examination - ICD9: V70.0, ICD10: Z00.00 (primary diagnosis) - Counseled on healthy diet and regular exercise - Calcium intake with supplements or by diet of 1000 mg/day for under 50, 1200- 1500 mg/day for 50+ - Follow up for annual exam in one year - LIPID PANEL BASIC - COMP METABOLIC PANEL - CBC + DIFF - HGB A1C 2. Migraine without aura and without status migrainosus, not intractable - ICD9: 346.10, ICD10: G43.009 - SUMATRIPTAN 100 MG TABLET 3. Hyperlipidemia, mixed - ICD9: 272.2, ICD10: E78.2 - Control undetermined, due for labs - Counseled on healthy diet and regular exercise - LIPID PANEL BASIC - COMP METABOLIC PANEL 4. Obesity, Class I, BMI 30-34.9 - ICD9: 278.00, ICD10: E66.9 Weight decreasing Continue diet and exercise 5. Ventral hernia without obstruction or gangrene - ICD9: 553.20, ICD10: K43.9 Continue weight loss May consider hernia repair if still bothering her 6. Onychomycosis - ICD9: 110.1, ICD10: B35.1 - TERBINAFINE HCL 250 MG TABLET 7. External hemorrhoid - ICD9: 455.3, ICD10: K64.4 - HYDROCORTISONE 2.5 % TOPICAL CREAM WITH PERINEAL APPLICATOR 8. Encounter for immunization - ICD9: V03.89, ICD10: Z23 - INFLUENZA VACCINE, AGE 6 MO - 64 YR, QUADRIVALENT (AFLURIA, FLULAVAL, FLUZONE) Shaun Carlin MD documented in this [facility]23 NoteHNO ID: [id number] Author: Esme Grace MD Service: ? Author Type: Physician Type: Progress Notes Filed: 03/26/2023 2:29 PM Note Text: SURGICAL SERVICES HISTORY AND PHYSICAL EXAMINATION SERVICE DATE: 03/26/2023 SERVICE TIME: 2:13 PM PRIMARY CARE PHYSICIAN: Shaun Carlin MD SUBJECTIVE CHIEF COMPLAINT: hernia HISTORY OF PRESENT ILLNESS: Ms. Olivera is a 37 year old female with a PMH of ADHD, anxiety/depression, bipolar disorder, hx of drug use disorder, migraines, HTN, GERD who presents for follow up after recent additional testing. Today she reports no changes in her health or medications. At the last clinic note I had recommended weight loss prior to repair of the small ventral hernia. Due to her symptoms of GERD I had recommended EGD. EGD was performed on 01/17/23 and demonstrated a non-obstructive Schatzki's ring. Pathology demonstrated mild reactive gastropathy and not morphologic evidence of Helicobacter pylori. She was encouraged to continue anti-reflux medications. She has lost 10 pounds since her last clinic visit with me. She states that since the EGD she has stopped use of NSAIDs and has had no further abdominal pain. Regarding the small ventral hernia, it not really bothered her. Per my last clinic note: I initially evaluated her in clinic on 10/13/2018. At that time she had a CT scan demonstrating a 3.4 x 2.5 cm fat containing ventral hernia. The actual fascial defect appeared to be only 5 mm. She was a daily 1 pack per day smoker at that time and had desire to become . Today she states that since seeing me last she has since had two more children and began to experience symptoms associated with her ventral/epigastric hernia. Previously it had not been symptomatic and now it is. She never had experienced issues with it protruding, but it is now - she is able to reduce the hernia, but doing so is painful and it does not stay reduced. She denies any associated skin changes, nausea, emesis or diarrhea/constipation. She is not planning on having any more children although her desires a daughter and they have 4 sons together. Her last delivery was 09/12/22. She states that during her most recent she experienced severe epigastric pain not related to the hernia which was not related to oral intake. She was treated for gastric ulcers during , but has not undergone any workup for this pain. She was started on omeprazole and remains on this medication daily. She has since gained weight to a BMI of 36.9 and a weight of 207 pounds. At her last visit her BMI was 33. She states that she did weigh more prior to her last - her heaviest weight was 222 pounds. Since she has been working out and working on weight loss Social: former drug user now in remission; former smoker - quit in 2020 PSHx: PAST MEDICAL HISTORY: PAST MEDICAL HISTORY Diagnosis Date Abnormal Pap smear of cervix 2019 ASCUS neg HPV ADHD (attention deficit hyperactivity disorder), combined type 08/11/2018 Anemia Anxiety 07/07/2018 Bipolar disorder, in partial remission, most recent episode mixed (HCC) 10/04/2019 Depression, major, recurrent, moderate (HCC) 07/07/2018 Diet controlled gestational diabetes mellitus (GDM) in second trimester 07/05/2022 Drug use disorder remission since 06/2019; methamphetamines, marijuana Gastritis due to Helicobacter species 11/26/2021 Grand multiparity 09/11/2022 - history 4 prior SVDs, this will be delivery #5 - admission CBC 11.9 Group B Streptococcus carrier, antepartum 07/26/2021 Sensitive to Vanc Herpes simplex virus (HSV) infection 2008 Hypertension, essential 11/26/2021 Migraine without aura and without status migrainosus, not intractable 07/07/2018 MRSA infection 08/15/2021 -patient reports history of multi-site staph skin infection, is unsure if MRSA or MSSA -will treat with vancomycin preoperatively if need for delivery OAB (overactive bladder) PUD (peptic ulcer disease) 11/26/2021 Urinary tract infection in , antepartum, second trimester 03/28/2022 PAST SURGICAL HISTORY: PAST SURGICAL HISTORY Procedure Laterality Date SECTION HX EGD DIAGNOSTIC 01/17/2023 INDUCED BY [facility] 2008 FAMILY HISTORY: FAMILY HISTORY Problem Relation Age of Onset Heart Mother Hypertension Father No Known Problems Brother No Known Problems Maternal Grandmother No Known Problems Maternal Grandfather Breast Cancer Paternal Grandmother No Known Problems Paternal Grandfather No Known Problems Brother SOCIAL HISTORY: Social History Tobacco Use Smoking status: Former Packs/day: 0.50 Years: 20.00 Total pack years: 10.00 Types: Cigarettes Quit date: 2020 Years since quittin.5 Smokeless tobacco: Never Vaping Use Vaping Use: Never used Substance Use Topics Alcohol use: Not Currently Comment: rarely Drug use: N (more content not included)...[facility] History of Present illness Narrative* Esme Grace MD - 03/26/2023 2:13 PM EDT SURGICAL SERVICES HISTORY AND PHYSICAL EXAMINATION SERVICE DATE: 03/26/2023 SERVICE TIME: 2:13 PM PRIMARY CARE PHYSICIAN: Shaun Carlin MD SUBJECTIVE CHIEF COMPLAINT: hernia HISTORY OF PRESENT ILLNESS: Ms. Olivera is a 37 year old female with a PMH of ADHD, anxiety/depression, bipolar disorder, hx of drug use disorder, migraines, HTN, GERD who presents for follow up after recent additional testing. Today she reports no changes in her health or medications. At the last clinic note I had recommended weight loss prior to repair of the small ventral hernia. Due to her symptoms of GERD I had recommended EGD. EGD was performed on 01/17/23 and demonstrated a non-obstructive Schatzki's ring. Pathology demonstrated mild reactive gastropathy and not morphologic evidence of Helicobacter pylori. She was encouraged to continue anti-reflux medications. She has lost 10 pounds since her last clinic visit with me. She states that since the EGD she has stopped use of NSAIDs and has had no further abdominalpain. Regarding the small ventral hernia, it not really bothered her. Per my last clinic note: I initially evaluated her in clinic on 10/13/2018. At that time she had a CT scan demonstrating a 3.4 x 2.5 cm fat containing ventral hernia. The actual fascial defect appeared to be only 5 mm. She was a daily 1 pack per day smoker at that time and had desire to become . Today she states that since seeing me last she has since had two more children and began to experience symptoms associated with her ventral/epigastric hernia. Previously it had not been symptomatic and now it is. She never had experienced issues with it protruding, but it is now - she is able to reduce the hernia, but doing so is painful and it does not stay reduced. She denies any associated skin changes, nausea, emesis or diarrhea/constipation. She is not planning on having any more children although her desires a daughter and they have 4 sons together. Her last delivery was 09/12/22. She states that during her most recent she experienced severe epigastric pain not relatedto the hernia which was not related to oral intake. She was treated for gastric ulcers during , but has not undergone any workup for this pain. She was started on omeprazole and remains on this medication daily. She has since gained weight to a BMI of 36.9 and a weight of 207 pounds. At her last visit her BMI was 33. She states that she did weigh more prior to her last - her heaviest weight was 222pounds. Since she has been working out and working on weight loss Social: former drug user now in remission; former smoker - quit in 2020 PSHx: PAST MEDICAL HISTORY: PAST MEDICAL HISTORY Diagnosis Date Abnormal Pap smear of cervix 2019 ASCUS neg HPV ADHD (attention deficit hyperactivity disorder), combined type 08/11/2018 Anemia Anxiety 07/07/2018 Bipolar disorder, in partial remission, most recent episode mixed (HCC) 10/04/2019 Depression, major, recurrent, moderate (HCC) 07/07/2018 Diet controlled gestational diabetes mellitus (GDM) in second trimester 07/05/2022 Drug use disorder remission since 06/2019; methamphetamines, marijuana Gastritis due to Helicobacter species 11/26/2021 Grand multiparity 09/11/2022 - history 4 prior SVDs, this will be delivery #5 - admission CBC 11.9 Group B Streptococcus carrier, antepartum 07/26/2021 Sensitive to Vanc Herpes simplex virus (HSV) infection 2008 Hypertension, essential 11/26/2021 Migraine without aura and without status migrainosus, not intractable 07/07/2018 MRSA infection 08/15/2021 -patient reports history of multi-site staph skin infection, is unsure if MRSA or MSSA -will treat with vancomycin preoperatively if need for delivery OAB (overactive bladder) PUD (peptic ulcer disease) 11/26/2021 Urinary tract infection in , antepartum, second trimester 03/28/2022 PAST SURGICAL HISTORY: PAST SURGICAL HISTORY Procedure Laterality Date SECTION HX EGD DIAGNOSTIC 01/17/2023 INDUCED BY D&C 2008 FAMILY HISTORY: FAMILY HISTORY Problem Relation Age of Onset Heart Mother Hypertension Father No Known Problems Brother No Known Problems Maternal Grandmother No Known Problems Maternal Grandfather Breast Cancer Paternal Grandmother No Known Problems Paternal Grandfather No Known Problems Brother SOCIAL HISTORY: Social History Tobacco Use Smoking status: Former Packs/day: 0.50 Years: 20.00 Total pack years: 10.00 Types: Cigarettes Quit date: 2020 Years since quittin.5 Smokeless tobacco: Never Vaping Use Vaping Use: Never used Substance Use Topics Alcohol use: Not Currently Comment: rarely Drug use: Not Currently Types: Crystal Meth Comment: remission 06/2019 MEDICATIONS: Current Outpatient Medications Medication Sig ketoconazole (NIZORAL) 2 % cream Apply to affected area once daily. 28 mg iron- 800 mcg tab TAKE 1 TABLET BY MOUTH EVERY DAY hydrocortisone (ANUSOL-HC) 2.5 % rectal cream by RECTAL route twice daily. SUMAtriptan (IMITREX) 100 mg tablet Take 1 tablet by mouth as needed for migraine headache (see administration instructions). omeprazole (PRILOSEC) 40 mg capsule Take 1 capsule by mouth once daily. No current facility-administered medications for this visit. ALLERGIES: ALLERGIES Allergen Reactions Amoxicillin Unknown WAS TOLD BY MOM COMPLETE REVIEW OF SYSTEMS: Review of Systems Constitutional: Negative for chills, diaphoresis, fever and malaise/fatigue. HENT: Negative for congestion, hearing loss, nosebleeds, sinus pain, sore throat and tinnitus. Eyes: Negative for blurred vision, double vision, pain and redness. Respiratory: Negative for cough, hemoptysis, sputum production, shortness of breath and wheezing. Cardiovascular: Negative for chest pain, palpitations, orthopnea, leg swelling and PND. Gastrointestinal: Negative for abdominal pain, blood in stool, constipation, diarrhea, heartburn, nausea and vomiting. Genitourinary: Negative for dysuria, frequency, hematuria and urgency. Musculoskeletal: Negative for back pain, falls, joint pain, myalgias and neck pain. Skin: Negative for itching and rash. Neurological: Negative for dizziness, speech change, focal weakness, seizures, loss of consciousness, weakness and headaches. Endo/Heme/Allergies: Does not bruise/bleed easily. Psychiatric/Behavioral: Negative for depression, hallucinations, memory loss, substance abuse and suicidal ideas. The patient is not nervous/anxious and does not have insomnia. OBJECTIVE PHYSICAL EXAM: BP 123/79 Pulse 77 Ht 5' 3.5 (1.61m) Wt 197 lb 12.8 oz (89.7kg) LMP 12/09/2022 BMI 34.48kg/(m^2). Physical Exam Vitals reviewed. Constitutional: Appearance: Normal appearance. She is obese. HENT: Head: Normocephalic and atraumatic. Nose: Nose normal. Eyes: Conjunctiva/sclera: Conjunctivae normal. Pupils: Pupils are equal, round, and reactive to light. Cardiovascular: Rate and Rhythm: Normal rate. Pulmonary: Effort: Pulmonary effort is normal. No respiratory distress. Skin: General: Skin is warm and dry. Coloration: Skin is not jaundiced or pale. Neurological: General: No focal deficit present. Mental Status: She is alert and oriented to person, place, and time. Psychiatric: Mood and Affect: Mood normal. Behavior: Behavior normal. DATA: Diagnostic tests reviewed for today's visit: EMR reviewed Plan ASSESSMENT AND PLAN Sia Olivera is a 37 year old female with a PMH as noted above who presents in follow up for GERD and ventral hernia. 1. Gastroesophageal reflux disease without esophagitis - ICD9: 530.81, ICD10: K21.9 (primary diagnosis) - Symptoms have improved since her last visit. She has also lost 10 pounds and stopped use of NSAIDs, which I suspect are both contributing to the improvement in symptoms. - Discussed lifestyle modifications including losing weight, limiting caffeine, no meals three hours before sleep, and head of bed elevation - Pt is asking if she can stop use of omeprazole as symptoms have resolved. Due to weight loss and improvement in symptoms, I am recommending cessation of omeprazole . 2. Class 1 obesity with body mass index (BMI) of 34.0 to 34.9 in adult, unspecified obesity type, unspecified whether serious comorbidity present - ICD9: 278.00, V85.34, ICD10: E66.9, Z68.34 - She has lost 10 pounds since her last visit with me. She is continuing to work on weight loss 3. Ventral hernia without obstruction or gangrene - ICD9: 553.20, ICD10: K43.9 - Slightly larger since I saw her in clinic in 2019. We discussed that we will repair only after she has lost weight closer to her ideal body weight and/or if the symptoms progress. Medical Decision Making: Problems: Moderate: 2+ stable chronic illnesses Data: Unique test result(s) reviewed: 2 Discussed management or test w/ external physician/QHCP/source Risk: Moderate: Drug management Medical Decision Making Level: 4 - Moderate SIGNATURE: Esme Grace MD PATIENT NAME: Sia Olivera DATE: March 26, 2023 TIME: 2:13 PM PAGER/CONTACT #: [id number] [facility] History of Past illness Narrative* Problem Noted Date Diagnosed Date Resolved Date Pre-op testing 01/17/2023 07/01/2023 Last Assessment & Plan: See note for medical conditions which may affect sidra-operative course addressed in visit today. Gastroesophageal reflux disease 01/17/2023 07/01/2023 Encounter for induction of labor 09/11/2022 10/08/2022 Overview: IOL GDMA1/CHTN/AMA GBS + PCN Pitocin per protocol Epidural in place Amniotomy at 0200 for clear fluid IUPC/FSE in place Hx 3 , 1 VAVD - 7#12 largest 36w6d growth US - EFW 76%, AC 91%,7#4 Contraception management 09/11/2022 Overview: - desires post-placental Mirena - consent signed Grand multiparity 09/11/2022 12/10/2022 Overview: - history 4 prior SVDs, this will be delivery #5 - admission CBC 11.9 Diet controlled gestational diabetes mellitus (GDM) in second trimester 07/05/2022 10/08/2022 Overview: Well controlled Fasting and postprandial BG wnl Will check BGs q2h in latent labor, q1hr in active labor Urinary tract infection affe cting care of mother in second trimester, antepartum 03/28/2022 0 10/08/2022 Overview: Presents with complaint of burning upon urination and still feeling the urge to pee after emptying bladder Urine dip +nitrates, +leukocytes Urine culture sent Macrobid 14 weeks gestation of 03/28/2022 09/11/2022 Vaginal bleeding in 03/11/2022 09/11/2022 Overview: - SSE shows a closed cervix, 4 cc of dark blood, but there is no active bleeding noted - FHR is present and an appropriate rate at 170 visualized on ultrasound - RH +, Rhogham not indicated - Patient consouled on return precaution & signs/symptoms to monitor for - She will be calling her OB tomorrow to schedule a close outpatient follow up appointment & to schedule nuchal translucency ultrasound Abdominal pain affecting 03/11/2022 10/08/2022 Overview: - Currently reporting no pain at this time - Urine Dip does not show signs of infection - Likely musculoskeletal Preexisting hypertension com plicating , antepartum 03/05/2022 10/08/2022 Obesity complicating pregnan cy, first trimester 03/05/2022 10/08/2022 History of group B Streptoco ccus (GBS) infection 03/05/2022 10/08/2022 Overview: Reports has previously tolerated penicillin Multigravida of advanced mat ernal age in first trimester 03/05/2022 10/08/2022 Overview: -Low risk NIPT -Normal anatomy 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 , antepartum, unspecified trimester 03/05/2022 10/08/2022 Overview: Stable with valtrex suppression Negative sterile speculum on admission Vaginitis complicating current 03/05/2022 12/10/2022 History of drug use 03/05/2022 10/08/19 Overview: - denies recent use - since before last GERD without esophagitis 02/08/2022 Last Assessment & Plan: On PPI EGD today Gastritis due to Helicobacter species 11/26/2021 02/08/2022 PUD (peptic ulcer disease) 11/26/2021 1 Hypertension, essential 11/26/202106/15 Overview: CHTN controlled without medications Hgb, plt, Cr wnl AST/ALT hemolyzed Last Assessment & Plan: no medication Follow PCP Epigastric pain 10/30/2021 02/08/2022 Elevated blood pressure read ing without diagnosis of hypertension 10/30/2021 11/26/2021 Encounter for elective induction of labor 08/15/2021 08/18/2021 Overview: -GSB+, PCN allergy, Ancef in labor -Pitocin per protocol (halved x1) -amniotomy @1530 -epidural in -IUPC -FSE H/o 1 VAVD and SVDx2, most recent in 2010, largest 7lbs 9oz Growth US @ 36w5d, EFW 6lbs 9oz, 48% Negative NIPT History of MRSA infection 08/15/2021 Overview: -patient reports history of multi-site staph skin infection, is unsure if MRSA or MSSA -will treat with vancomycin preoperatively if need for delivery Group B Streptococcus carrier, antepartum 07/26/2021 10/30/2021 Overview: Sensitive to Vanc headache in first trimester 02/09/2021 06/29/2021 Elderly multigravida in third trimester 01/12/2021 10/30/2021 Overview: -negative NIPT 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 , antepartum, third trimester 01/12/2021 0 10/30/2021 Overview: -On Acyclovir since 36 weeks, compliant -SSE negative on admission -denies recent symptoms or outbreaks Nausea and vomiting of , antepartum 1 10/08/2022 Bipolar disorder, in partial remission, most recent episode mixed 10/04/2019 08/15/2021 Pure hypercholesterolemia 11/02/2018 Tobacco use disorder 10/30/2018 021 Obesity, Class II, BMI 35-39.9 09/03/2018 07/01/2023 Overview: -SCDs intrapartum and after delivery until ambulatory Abdominal wall mass 08/11/2018 09/03/20 ADHD (attention deficit hype ractivity disorder), combined type 08/11/2018 08/15/2021 Depression, major, recurrent, moderate 07/07/2018 08/15/2021 Anxiety 07/07/2018 08/15/2021 Methamphetamine abuse 07/07/20182020 Marijuana abuse 07/07/2018 04/26/2021 documented as of this encounter (statuses as of 07/01/2023) [facility] of Past illness Narrative* Problem Noted Date Diagnosed Date Resolved Date Pre-op testing 01/17/2023 07/01/2023 Last Assessment & Plan: See note for medical conditions which may affect sidra-operative course addressed in visit today. Gastroesophageal reflux disease 01/17/2023 07/01/2023 Encounter for induction of labor 09/11/2022 10/08/2022 Overview: IOL GDMA1/CHTN/AMA GBS + PCN Pitocin per protocol Epidural in place Amniotomy at 0200 for clear fluid IUPC/FSE in place Hx 3 , 1 VAVD - 7#12 largest 36w6d growth US - EFW 76%, AC 91%,7#4 Contraception management 09/11/2022 Overview: - desires post-placental Mirena - consent signed Grand multiparity 09/11/2022 12/10/2022 Overview: - history 4 prior SVDs, this will be delivery #5 - admission CBC 11.9 Diet controlled gestational diabetes mellitus (GDM) in second trimester 07/05/2022 10/08/2022 Overview: Well controlled Fasting and postprandial BG wnl Will check BGs q2h in latent labor, q1hr in active labor Urinary tract infection affe cting care of mother in second trimester, antepartum 03/28/2022 0 10/08/2022 Overview: Presents with complaint of burning upon urination and still feeling the urge to pee after emptying bladder Urine dip +nitrates, +leukocytes Urine culture sent Macrobid 14 weeks gestation of 03/28/2022 09/11/2022 Vaginal bleeding in 03/11/2022 09/11/2022 Overview: - SSE shows a closed cervix, 4 cc of dark blood, but there is no active bleeding noted - FHR is present and an appropriate rate at 170 visualized on ultrasound - RH +, Rhogham not indicated - Patient consouled on return precaution & signs/symptoms to monitor for - She will be calling her OB tomorrow to schedule a close outpatient follow up appointment & to schedule nuchal translucency ultrasound Abdominal pain affecting 03/11/2022 10/08/2022 Overview: - Currently reporting no pain at this time - Urine Dip does not show signs of infection - Likely musculoskeletal Preexisting hypertension com plicating , antepartum 03/05/2022 10/08/2022 Obesity complicating pregnan cy, first trimester 03/05/2022 10/08/2022 History of group B Streptoco ccus (GBS) infection 03/05/2022 10/08/2022 Overview: Reports has previously tolerated penicillin Multigravida of advanced mat ernal age in first trimester 03/05/2022 10/08/2022 Overview: -Low risk NIPT -Normal anatomy 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 , antepartum, unspecified trimester 03/05/2022 10/08/2022 Overview: Stable with valtrex suppression Negative sterile speculum on admission Vaginitis complicating current 03/05/2022 12/10/2022 History of drug use 03/05/2022 10/08/19 Overview: - denies recent use - since before last GERD without esophagitis 02/08/2022 Last Assessment & Plan: On PPI EGD today Gastritis due to Helicobacter species 11/26/2021 02/08/2022 PUD (peptic ulcer disease) 11/26/2021 1 Hypertension, essential 11/26/202106/15 Overview: CHTN controlled without medications Hgb, plt, Cr wnl AST/ALT hemolyzed Last Assessment & Plan: no medication Follow PCP Epigastric pain 10/30/2021 02/08/2022 Elevated blood pressure read ing without diagnosis of hypertension 10/30/2021 11/26/2021 Encounter for elective induction of labor 08/15/2021 08/18/2021 Overview: -GSB+, PCN allergy, Ancef in labor -Pitocin per protocol (halved x1) -amniotomy @1530 -epidural in -IUPC -FSE H/o 1 VAVD and SVDx2, most recent in 2010, largest 7lbs 9oz Growth US @ 36w5d, EFW 6lbs 9oz, 48% Negative NIPT History of MRSA infection 08/15/2021 Overview: -patient reports history of multi-site staph skin infection, is unsure if MRSA or MSSA -will treat with vancomycin preoperatively if need for delivery Group B Streptococcus carrier, antepartum 07/26/2021 10/30/2021 Overview: Sensitive to Vanc headache in first trimester 02/09/2021 06/29/2021 Elderly multigravida in third trimester 01/12/2021 10/30/2021 Overview: -negative NIPT 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 , antepartum, third trimester 01/12/2021 0 10/30/2021 Overview: -On Acyclovir since 36 weeks, compliant -SSE negative on admission -denies recent symptoms or outbreaks Nausea and vomiting of , antepartum 10/08/2022 Bipolar disorder, in partial remission, most recent episode mixed 10/04/2019 08/15/2021 Pure hypercholesterolemia 11/02/2018 Obesity, Class II, BMI 35-39.9 09/03/2018 07/01/2023 Overview: -SCDs intrapartum and after delivery until ambulatory Abdominal wall mass 08/11/2018 09/03/20 ADHD (attention deficit hype ractivity disorder), combined type 08/11/2018 08/15/2021 Depression, major, recurrent, moderate 07/07/2018 08/15/2021 Anxiety 07/07/2018 08/15/2021 Methamphetamine abuse 07/07/20182020 Marijuana abuse 07/07/2018 04/26/2021 documented as of this encounter (statuses as of 12/31/2023) [facility] note* Operative Report - Esme Grace MD - 01/17/2023 8:35 AM EDT OPERATIVE/PROCEDURE REPORT LOG ID: [id number] Surgery/Procedure Date: Incision/Procedure Start Time: 8:42 AM Incision Close/Procedure End Time: 8:45 AM Surgeon(s)/Proceduralist(s) and Pipe And Test Supervisor(s): Surgeon(s) and Role: * Esme Grace MD - Proceduralist No Additional Staff PREOPERATIVE DIAGNOSIS: 1. Epigastric pain 2. GERD 3. Severe obesity POSTOPERATIVE DIAGNOSIS: 1. Epigastric pain 2. GERD 3. Severe obesity 4. Non-obstructive Schatzki's ring COMPLICATIONS: None. Procedure(s): 1. Esophagogastroduodenoscopy (EGD) with cold forceps biopsies of the gastric antrum Anesthesia: * No anesthesia type entered * MAC by Anesthesiology without complications Operative Findings: Diagnostic EGD demonstrated non-obstructing Schatzki's ring, but no ulcers or erosions or other abnormalities Operative Indication: Sia Olivera is a 37 year old female who presents for EGD due to symptoms of epigastric pain and GERD. We discussed the risks, benefits, alternatives, and potential complications, and the patient agreed to proceed. Procedure Details: The patient was brought to the endoscopic suite in stable condition. The preprocedural checklist was completed to the satisfaction of the entire team and verified with the patient. We had previously completed the consent process after discussing the risks and benefits of the procedure, which included, but were not limited to, the risk of hemorrhage, need for blood transfusion, and the possibilityof perforation. Once she was induced by Anesthesia and appropriately sedated, the Olympus gastroscope was entered through the mouth. I was easily able to intubate the esophagus. The esophageal portion of the examination was positive for a slightly tortuous esophagus and a non-obstructive Schatzki's ring. There wasno resistance to passage of the endoscope at the gastroesophageal junction. The Z- line was measuredat 39 centimeters from the bite protector. The diaphragmatic hiatus was measured at 39-cm from the bite protector. I then entered the stomach. The patient had some gastric secretions, which were suctioned out using the gastroscope. I did retroflex the scope, which showed a normal appearing GE junction and fundus from that angle. Retroflex view showed a Hill grade 1. I then intubated the pylorus into the duodenal bulb, examining both the anterior and posterior portions of the duodenal bulb and then into the second portion of the duodenum. That part of the procedure was within normal limits. Once back in the stomach, I then performed 2 separate cold forceps biopsies in the gastric antrum to be sent for H.pylori. This was done with minimal bleeding. I ensured we had good hemostasis. Gastric insufflation was removed using suction. The gastroscope was removed through the mouth. The patient tolerated the procedure very well and was returned to recovery room in stable condition. Recommendations: smoking cessation. Continue antireflux medications Estimated Blood Loss: minimal Specimens: 1. Gastric antrum Implantable Devices: none Drains: None Complications: None I performed the procedure independently SIGNATURE: Esme Grace MD PATIENT NAME: Sia Olivera DATE: January 17, 2023 TIME: 8:51 AM PAGER/CONTACT #: [facility] History and physical note * Julio JAZ Dial.GROUP WORKER - 01/17/2023 8:30 AM EDT . HISTORY AND PHYSICAL EXAMINATION SERVICE DATE: 01/17/2023 SERVICE TIME: 7:23 AM PRIMARY CARE PHYSICIAN: Shaun Carlin MD REASON FOR VISIT: Sia Olivera is a 37 year old female who is scheduled for EGD at the request of Dr. Esme Grace for routine H&P. The reason for this visit is to perform a comprehensive review of the patient's past medical history, assess their current health status and obtain any additional testing required based on anesthesia guidelines. We will also identify any potential anesthesia problems or contraindications to the planned procedure. The patient has the following: ACTIVE PROBLEM LIST Migraine Without Aura and Without Status Migrainosus, Not Intractable Obesity, Class II, Bmi 35-39.9 Pud (Peptic Ulcer Disease) Hypertension, Essential Hyperlipidemia, Mixed Gerd Without Esophagitis Pre-Op Testing Gastroesophageal Reflux Disease Subjective CHIEF COMPLAINT: Gastroesophageal reflux disease, unspecified whether esophagitis present [K21.9] HPI: Patient present to [facility] for the above procedure. Patient here for Upper GI Endoscopy screening related to GERD and gastric ulcer. Patient reports occasional upper gastric pain for about 2 years, she also has a umbilical hernia. Patient denies recent N/V, diarrhea or constipation. Occasional bright red blood in stool related to tearing per patient. Denies hematemesis. Patient has no knownfamily history of Esophageal cancer, Colon cancer or other Gastric cancer. Patient agreed to planned procedure. METS: Climb a flight of stairs or walk up a hill (5.50 METs) Patient denies any CP/SOB with above activity. PAST MEDICAL HISTORY Diagnosis Date Abnormal Pap smear of cervix 2019 ASCUS neg HPV ADHD (attention deficit hyperactivity disorder), combined type 08/11/2018 Anemia Anxiety 07/07/2018 Bipolar disorder, in partial remission, most recent episode mixed (HCC) 10/04/2019 Depression, major, recurrent, moderate (HCC) 07/07/2018 Diet controlled gestational diabetes mellitus (GDM) in second trimester 07/05/2022 Drug use disorder remission since 06/2019; methamphetamines, marijuana Gastritis due to Helicobacter species 11/26/2021 Grand multiparity 09/11/2022 - history 4 prior SVDs, this will be delivery #5 - admission CBC 11.9 Group B Streptococcus carrier, antepartum 07/26/2021 Sensitive to Vanc Herpes simplex virus (HSV) infection 2008 Hypertension, essential 11/26/2021 Migraine without aura and without status migrainosus, not intractable 07/07/2018 MRSA infection 08/15/2021 -patient reports history of multi-site staph skin infection, is unsure if MRSA or MSSA -will treat with vancomycin preoperatively if need for delivery OAB (overactive bladder) PUD (peptic ulcer disease) 11/26/2021 Urinary tract infection in , antepartum, second trimester 03/28/2022 PAST SURGICAL HISTORY Procedure Laterality Date SECTION HX INDUCED BY D&C 2008 FAMILY HISTORY Problem Relation Age of Onset Heart Mother Hypertension Father No Known Problems Brother No Known Problems Maternal Grandmother No Known Problems Maternal Grandfather Breast Cancer Paternal Grandmother No Known Problems Paternal Grandfather No Known Problems Brother SOCIAL HISTORY: Social History Tobacco Use Smoking status: Former Packs/day: 0.50 Years: 20.00 Pack years: 10.00 Types: Cigarettes Quit date: 2020 Years since quittin.3 Smokeless tobacco: Never Vaping Use Vaping Use: Never used Substance Use Topics Alcohol use: Not Currently Comment: rarely Drug use: Not Currently Types: Crystal Meth Comment: remission 06/2019 Prior to Admission medications as of 01/17/23 0724 Medication Sig Last Dose Taking SUMAtriptan (IMITREX) 100 mg tablet Take 1 tablet by mouth as needed for migraine headache (see administration instructions). Past Week Yes omeprazole (PRILOSEC) 40 mg capsule Take 1 capsule by mouth once daily. 01/16/2023 Yes hydrocortisone (ANUSOL-HC) 2.5 % rectal cream by RECTAL route twice daily. 01/10/2023 [id number] tab Take 1 tablet by mouth once daily. Patient not taking: Reported on 01/01/2023 No medication comments found. ALLERGIES Allergen Reactions Amoxicillin Unknown WAS TOLD BY MOM REVIEW OF SYSTEMS: PAIN ASSESSMENT: Pain Pain Level: 0 Pain Assessment: Assessment Tool: Verbal (Numeric Rating or Visual Analog Scale) General: Denies fever, chills, and unexpected weight change. Neuro: Denies dizziness and headaches. Respiratory: No history of current cough or dyspnea, or pneumonia in the past 6 weeks. No history of respiratory/pulmonary symptoms or problems. No history of current cough or dyspnea, or pneumonia in the past 6 weeks. Cardiovascular: No history of HTN requiring medication, no history of angina, CHF, NV, cardiac surgery or stents. Denies rest pain, gangrene or revascularization/amputation for PVD. No history of cardiovascular symptoms or problems. No history of angina, CHF, NV, cardiac surgery or stents. Denies chest pain or palpations. GI: See HPI. : Denies dysuria. Endocrine: No history of diabetes or thyroid conditions. Hematology: Denies history of bleeding or clotting disorder. No known autoimmune disorders. Psych: Denies anxiety/depression. Musculoskeletal: Denies joint pain and swelling. Skin: Denies open sores and rashes. Objective PHYSICAL EXAM: VITALS: BP 155/87 Pulse 85 Temp 98.2 Resp 19 SpO2 97% LMP 12/09/2022 O2 Therapy: Room Air General: NAD. Cooperative. Skin: Skin is warm, no rashes, and no open sores. HEENT: Normocephalic. Cardiovascular: Normal S1 & S2. No murmur. Lungs: CTA Bilaterally. No respiratory distress. Abdomen: Soft. Pos BS x4quad Extremities: No edema. Neurological: Alert and oriented to person, place, and time. Pulses: radial pulses +2 Diagnostic tests reviewed for today's visit: Lab Value Units Date High Low HB 10.1 g/dL 09/13/2022 15.5 11.5 HCT 30.7 % 09/13/2022 46.0 36.0 WBC 14.45 k/uL 09/13/2022 11.00 3.70 PLT 200 k/uL 09/13/2022 400 150 NA 135 mmol/L 09/12/2022 144 136 K No results within date range. GLUC 90 mg/dL 09/12/2022 99 74 BUN 6 mg/dL 09/12/2022 21 7 CREAT 0.48 mg/dL 09/12/2022 0.96 0.58 PTSEC No results within date range. INR No results within date range. APTT No results within date range. ALT No results within date range. AST No results within date range. TBILI 0.2 mg/dL 09/12/2022 1.3 0.2 TSH No results within date range. Lab Value Units Date High Low HCGQT No results within date range. UHCG No results within date range. HCG, BODY* No results within date range. Lab Value Units Date High Low ABORHD No results within date range. ABSCREEN No results within date range. Hemoglobin A1C (%) Date Value 10/30/2021 5.7 04/27/2020 5.8 Hemoglobin A1C (POCT) (%) Date Value 12/10/2022 5.5 Assessment/Plan Gastroesophageal reflux disease, unspecified whether esophagitis present [K21.9] Patient has the following medical conditions which may affect sidra-operative course Problem List Items Addressed This Visit Neurology Migraine without aura and without status migrainosus, not intractable Current Assessment & Plan Sumatriptan as needed. Cardiovascular Hypertension, essential Overview CHTN controlled without medications Hgb, plt, Cr wnl AST/ALT hemolyzed Current Assessment & Plan no medication Follow PCP Hyperlipidemia, mixed Current Assessment & Plan Diet and exercise control Gastrointestinal GERD without esophagitis Current Assessment & Plan On PPI EGD today Other Pre-op testing Current Assessment & Plan See note for medical conditions which may affect sidra-operative course addressed in visit today. Other Visit Diagnoses Gastroesophageal reflux disease, unspecified whether esophagitis present Relevant Orders EGD DIAGNOSTIC PLAN Planned Procedure: EGD The Following Tests/Procedures Have Been Initiated: IV start and Maintenance fluid for the procedure. ANESTHESIA FINDINGS: Significant Anesthesia Considerations: None Planned Anesthetic: MAC Instructions Given to Patient: Patient given verbal preop instructions and voices comprehension and compliance. I spent a total of 20 minutes on the date of the service which included preparing to see the patient, [id number] patient care, completing clinical documentation, obtaining and/or reviewing separately obtained history, performing a medically appropriate examination, and counseling and educating the patient/family/caregiver. SIGNATURE: Julio Dial APRN.CNP PATIENT NAME: Sia Olivera DATE: January 17, 2023 TIME: 7:22 AM PAGER/CONTACT #: documented in this encounterMain [facility]23 NoteHNO ID: [id number] Author: Esme Grace MD Service: ? Author Type: Physician Type: Progress Notes Filed: 01/01/2023 2:55 PM Note Text: SURGICAL SERVICES HISTORY AND PHYSICAL EXAMINATION SERVICE DATE: 01/01/2023 SERVICE TIME: 2:25 PM PRIMARY CARE PHYSICIAN: Shaun Carlin MD SUBJECTIVE CHIEF COMPLAINT: hernia HISTORY OF PRESENT ILLNESS: Ms. Olivera is a 37 year old female with a PMH of ADHD, anxiety/depression, bipolar disorder, hx of drug use disorder, migraines, HTN, GERD who presents for evaluation of a ventral hernia. I initially evaluated her in clinic on 10/13/2018. At that time she had a CT scan demonstrating a 3.4 x 2.5 cm fat containing ventral hernia. The actual fascial defect appeared to be only 5 mm. She was a daily 1 pack per day smoker at that time and had desire to become . Today she states that since seeing me last she has since had two more children and began to experience symptoms associated with her ventral/epigastric hernia. Previously it had not been symptomatic and now it is. She never had experienced issues with it protruding, but it is now - she is able to reduce the hernia, but doing so is painful and it does not stay reduced. She denies any associated skin changes, nausea, emesis or diarrhea/constipation. She is not planning on having any more children although her desires a daughter and they have 4 sons together. Her last delivery was 09/12/22. She states that during her most recent she experienced severe epigastric pain not related to the hernia which was not related to oral intake. She was treated for gastric ulcers during , but has not undergone any workup for this pain. She was started on omeprazole and remains on this medication daily. She has since gained weight to a BMI of 36.9 and a weight of 207 pounds. At her last visit her BMI was 33. She states that she did weigh more prior to her last - her heaviest weight was 222 pounds. Since she has been working out and working on weight loss Social: former drug user now in remission; former smoker - quit in 2021 PSHx: PAST MEDICAL HISTORY: PAST MEDICAL HISTORY Diagnosis Date Abnormal Pap smear of cervix 2019 ASCUS neg HPV ADHD (attention deficit hyperactivity disorder), combined type 08/11/2018 Anemia Anxiety 07/07/2018 Bipolar disorder, in partial remission, most recent episode mixed (HCC) 10/04/2019 Depression, major, recurrent, moderate (HCC) 07/07/2018 Diet controlled gestational diabetes mellitus (GDM) in second trimester 07/05/2022 Drug use disorder remission since 06/2019; methamphetamines, marijuana Gastritis due to Helicobacter species 11/26/2021 Grand multiparity 09/11/2022 - history 4 prior SVDs, this will be delivery #5 - admission CBC 11.9 Group B Streptococcus carrier, antepartum 07/26/2021 Sensitive to Vanc Herpes simplex virus (HSV) infection 2008 Hypertension, essential 11/26/2021 Migraine without aura and without status migrainosus, not intractable 07/07/2018 MRSA infection 08/15/2021 -patient reports history of multi-site staph skin infection, is unsure if MRSA or MSSA -will treat with vancomycin preoperatively if need for delivery OAB (overactive bladder) PUD (peptic ulcer disease) 11/26/2021 Urinary tract infection in , antepartum, second trimester 03/28/2022 PAST SURGICAL HISTORY: PAST SURGICAL HISTORY Procedure Laterality Date SECTION HX INDUCED BY [facility] 2008 FAMILY HISTORY: FAMILY HISTORY Problem Relation Age of Onset Heart Mother Hypertension Father No Known Problems Brother No Known Problems Maternal Grandmother No Known Problems Maternal Grandfather Breast Cancer Paternal Grandmother No Known Problems Paternal Grandfather No Known Problems Brother SOCIAL HISTORY: Social History Tobacco Use Smoking status: Former Packs/day: 0.50 Years: 20.00 Pack years: 10.00 Types: Cigarettes Quit date: 2020 Years since quittin.2 Smokeless tobacco: Never Vaping Use Vaping Use: Never used Substance Use Topics Alcohol use: Not Currently Comment: rarely Drug use: Not Currently Types: Crystal Meth Comment: remission 06/2019 MEDICATIONS: Current Outpatient Medications Medication Sig hydrocortisone (ANUSOL-HC) 2.5 % rectal cream by RECTAL route twice daily. SUMAtriptan (IMITREX) 100 mg tablet Take 1 tablet by mouth as needed for migraine headache (see administration instructions). omeprazole (PRILOSEC) 40 mg capsule Take 1 capsule by mouth once daily. Lpjuhcjs-It-Ajm-Fe-FA tab Take 1 tablet by mouth once daily. (Patient not taking: Reported on 01/01/2023) No current facility-administered medications for this visit. ALLERGIES: ALLERGIES Allergen Reactions Amoxicillin Unknown WAS TOLD BY MOM COMPLETE REVIEW OF SYSTEMS: Review of Systems Constitutional: Negative for chi (more content not included)...[facility]04-19-2023 Miscellaneous Notes* Telephone Encounter - Ese Contreras MA - 01/01/2023 3:55 PM EDT EGD scheduled for 01/17/2023 at 8:30 am. Prep/instructions given to patient at checkout. Ese Contreras MA documented in this encounterMain [facility]04-19-2023 Miscellaneous Notes* Addendum Note - Ese Contreras MA - 01/01/2023 3:54 PM EDTAddended by: ESE CONTRERAS on: 01/01/2023 03:54 PM Modules accepted: Orders documented in this encounterMain [facility]04-19-2023 History of Present illness Narrative* Esme Grace MD - 01/01/2023 2:25 PM EDT Images from the original note were not included. SURGICAL SERVICES HISTORY AND PHYSICAL EXAMINATION SERVICE DATE: 01/01/2023 SERVICE TIME: 2:25 PM PRIMARY CARE PHYSICIAN: Shaun Carlin MD SUBJECTIVE CHIEF COMPLAINT: hernia HISTORY OF PRESENT ILLNESS: Ms. Olivera is a 37 year old female with a PMH of ADHD, anxiety/depression, bipolar disorder, hx of drug use disorder, migraines, HTN, GERD who presents for evaluation of a ventral hernia. I initially evaluated her in clinic on 10/13/2018. At that time she had a CT scan demonstrating a 3.4 x 2.5 cm fat containing ventral hernia. The actual fascial defect appeared to be only 5 mm. She was a daily 1 pack per day smoker at that time and had desire to become . Today she states that since seeing me last she has since had two more children and began to experience symptoms associated with her ventral/epigastric hernia. Previously it had not been symptomatic and now it is. She never had experienced issues with it protruding, but it is now - she is able to reduce the hernia, but doing so is painful and it does not stay reduced. She denies any associated skin changes, nausea, emesis or diarrhea/constipation. She is not planning on having any more children although her desires a daughter and they have 4 sons together. Her last delivery was 09/12/22. She states that during her most recent she experienced severe epigastric pain not relatedto the hernia which was not related to oral intake. She was treated for gastric ulcers during , but has not undergone any workup for this pain. She was started on omeprazole and remains on this medication daily. She has since gained weight to a BMI of 36.9 and a weight of 207 pounds. At her last visit her BMI was 33. She states that she did weigh more prior to her last - her heaviest weight was 222pounds. Since she has been working out and working on weight loss Social: former drug user now in remission; former smoker - quit in 2020 PSHx: PAST MEDICAL HISTORY: PAST MEDICAL HISTORY Diagnosis Date Abnormal Pap smear of cervix 2019 ASCUS neg HPV ADHD (attention deficit hyperactivity disorder), combined type 08/11/2018 Anemia Anxiety 07/07/2018 Bipolar disorder, in partial remission, most recent episode mixed (HCC) 10/04/2019 Depression, major, recurrent, moderate (HCC) 07/07/2018 Diet controlled gestational diabetes mellitus (GDM) in second trimester 07/05/2022 Drug use disorder remission since 06/2019; methamphetamines, marijuana Gastritis due to Helicobacter species 11/26/2021 Grand multiparity 09/11/2022 - history 4 prior SVDs, this will be delivery #5 - admission CBC 11.9 Group B Streptococcus carrier, antepartum 07/26/2021 Sensitive to Vanc Herpes simplex virus (HSV) infection 2008 Hypertension, essential 11/26/2021 Migraine without aura and without status migrainosus, not intractable 07/07/2018 MRSA infection 08/15/2021 -patient reports history of multi-site staph skin infection, is unsure if MRSA or MSSA -will treat with vancomycin preoperatively if need for delivery OAB (overactive bladder) PUD (peptic ulcer disease) 11/26/2021 Urinary tract infection in , antepartum, second trimester 03/28/2022 PAST SURGICAL HISTORY: PAST SURGICAL HISTORY Procedure Laterality Date SECTION HX INDUCED BY [facility] 2008 FAMILY HISTORY: FAMILY HISTORY Problem Relation Age of Onset Heart Mother Hypertension Father No Known Problems Brother No Known Problems Maternal Grandmother No Known Problems Maternal Grandfather Breast Cancer Paternal Grandmother No Known Problems Paternal Grandfather No Known Problems Brother SOCIAL HISTORY: Social History Tobacco Use Smoking status: Former Packs/day: 0.50 Years: 20.00 Pack years: 10.00 Types: Cigarettes Quit date: 2020 Years since quittin.2 Smokeless tobacco: Never Vaping Use Vaping Use: Never used Substance Use Topics Alcohol use: Not Currently Comment: rarely Drug use: Not Currently Types: Crystal Meth Comment: remission 06/2019 MEDICATIONS: Current Outpatient Medications Medication Sig hydrocortisone (ANUSOL-HC) 2.5 % rectal cream by RECTAL route twice daily. SUMAtriptan (IMITREX) 100 mg tablet Take 1 tablet by mouth as needed for migraine headache (see administration instructions). omeprazole (PRILOSEC) 40 mg capsule Take 1 capsule by mouth once daily. Vmyxsfce-Rj-Htp-Fe-FA tab Take 1 tablet by mouth once daily. (Patient not taking: Reportedon 01/01/2023) No current facility-administered medications for this visit. ALLERGIES: ALLERGIES Allergen Reactions Amoxicillin Unknown WAS TOLD BY MOM COMPLETE REVIEW OF SYSTEMS: Review of Systems Constitutional: Negative for chills, diaphoresis, fever and malaise/fatigue. HENT: Negative for congestion, hearing loss, nosebleeds, sinus pain, sore throat and tinnitus. Eyes: Negative for blurred vision, double vision, pain and redness. Respiratory: Negative for cough, hemoptysis, sputum production, shortness of breath and wheezing. Cardiovascular: Negative for chest pain, palpitations, orthopnea, leg swelling and PND. Gastrointestinal: Positive for abdominal pain and heartburn. Negative for blood in stool, constipation, diarrhea, nausea and vomiting. Genitourinary: Negative for dysuria, frequency, hematuria and urgency. Musculoskeletal: Negative for back pain, falls, joint pain, myalgias and neck pain. Skin: Negative for itching and rash. Neurological: Negative for dizziness, speech change, focal weakness, seizures, loss of consciousness, weakness and headaches. Endo/Heme/Allergies: Does not bruise/bleed easily. Psychiatric/Behavioral: Negative for depression, hallucinations, memory loss, substance abuse and suicidal ideas. The patient is not nervous/anxious and does not have insomnia. OBJECTIVE PHYSICAL EXAM: BP 118/76 Pulse 80 Ht 5' 3.5[Measured in office without shoes[ (1.61m) Wt 207 lb (93.9kg) LMP 12/09/2022 BMI 36.09 kg/(m^2). Physical Exam Vitals reviewed. Constitutional: Appearance: Normal appearance. She is obese. HENT: Head: Normocephalic and atraumatic. Eyes: Extraocular Movements: Extraocular movements intact. Conjunctiva/sclera: Conjunctivae normal. Pupils: Pupils are equal, round, and reactive to light. Cardiovascular: Rate and Rhythm: Normal rate. Pulmonary: Effort: Pulmonary effort is normal. No respiratory distress. Abdominal: Comments: Ventral hernia; not reducible on exam. No skin changes Skin: General: Skin is warm and dry. Neurological: General: No focal deficit present. Mental Status: She is alert and oriented to person, place, and time. Psychiatric: Mood and Affect: Mood normal. Behavior: Behavior normal. DATA: Diagnostic tests reviewed for today's visit: EMR reviewed Plan ASSESSMENT AND PLAN Sia Olivera is a 37 year old female with a PMH as noted above who presents with ventral hernia, obesity, and abdominal pain 1. Ventral hernia without obstruction or gangrene - ICD9: 553.20, ICD10: K43.9 (primary diagnosis) - She is now symptomatic from the Ventral hernia. We discussed that ventral hernia repair will be most durable if her BMI is less than 35 and even most durable if closest to BMI of 30. She will continue working on weight loss. I will fix the hernia if her symptoms become severe, but I would like towait to repair it until her BMI is lower. We discussed the signs and symptoms of incarceration and strangulation that would require an ER visit and emergency surgery. 2. Class 2 severe obesity with serious comorbidity and body mass index (BMI) of 36.0 to 36.9 in adult, unspecified obesity type (HCC) - ICD9: 278.01, V85.36, ICD10: E66.01, Z68.36 - We discussed that ventral hernia repair will be most durable if her BMI is less than 35 and even most durable if closest to BMI of 30. She has been working on weight loss and will continue to do so. Will send the bariatric seminar, as with her other medical conditions she would be a good candidate for bariatric surgery if she continues to struggle with weight loss. 3. Gastroesophageal reflux disease, unspecified whether esophagitis present - ICD9: 530.81, ICD10: K21.9 - Discussed lifestyle modifications including losing weight, limiting caffeine, no meals three hours before sleep, and head of bed elevation - Continue treatment with Prilosec 40 mg QD - Setup for EGD - EGD DIAGNOSTIC 4. Hypertension, unspecified type - ICD9: 401.9, ICD10: I10 - Continue current dietary/lifestyle modifications. Working with PCP to determine if needs to go back on medications Medical Decision Making: Problems: Moderate: 2+ stable chronic illnesses Data: Unique test result(s) reviewed: 1 Unique test(s) ordered: 1 Discussed management or test w/ external physician/QHCP/source Risk: Moderate: Drug management and Moderate risk from testing/treatment Medical Decision Making Level: 4 - Moderate SIGNATURE: Esme Grace MD PATIENT NAME: Sia Olivera DATE: January 01, 2023 TIME: 2:25 PM PAGER/CONTACT #: [id number] documented in this encounterMain [facility]03-28-2023 History of Present illness Narrative* Shaun Carlin MD - 12/10/2022 2:20 PM EDT The patient is a 37-year-old female who presents for follow-up on chronic conditions. Due for A1c recheck. She has history of gestational diabetes. Normal today at 5.5. Not currently on BP medication. She has been watching her diet and exercising the past month. Hypertension This is a chronic problem. The current episode started more than 1 year ago. The problem is unchanged. The problem is controlled. Pertinent negatives include no chest pain, palpitations or shortness of breath. Past treatments include lifestyle changes. GERD She complains of heartburn. She reports no chest pain or no coughing. This is a chronic problem. The current episode started more than 1 year ago. The problem has been unchanged. She has tried a PPI for the symptoms. The treatment provided moderate relief. HISTORY REVIEWED PAST MEDICAL HISTORY Diagnosis Date Abnormal Pap smear of cervix 2019 ASCUS neg HPV ADHD (attention deficit hyperactivity disorder), combined type 08/11/2018 Anemia Anxiety 07/07/2018 Bipolar disorder, in partial remission, most recent episode mixed (HCC) 10/04/2019 Depression, major, recurrent, moderate (HCC) 07/07/2018 Diet controlled gestational diabetes mellitus (GDM) in second trimester 07/05/2022 Drug use disorder remission since 06/2019; methamphetamines, marijuana Gastritis due to Helicobacter species 11/26/2021 Grand multiparity 09/11/2022 - history 4 prior SVDs, this will be delivery #5 - admission CBC 11.9 Group B Streptococcus carrier, antepartum 07/26/2021 Sensitive to Vanc Herpes simplex virus (HSV) infection 2008 Hypertension, essential 11/26/2021 Migraine without aura and without status migrainosus, not intractable 07/07/2018 MRSA infection 08/15/2021 -patient reports history of multi-site staph skin infection, is unsure if MRSA or MSSA -will treat with vancomycin preoperatively if need for delivery OAB (overactive bladder) PUD (peptic ulcer disease) 11/26/2021 Urinary tract infection in , antepartum, second trimester 03/28/2022 PAST SURGICAL HISTORY Procedure Laterality Date SECTION HX INDUCED BY [facility] 2008 FAMILY HISTORY Problem Relation Age of Onset Heart Mother Hypertension Father No Known Problems Brother No Known Problems Maternal Grandmother No Known Problems Maternal Grandfather Breast Cancer Paternal Grandmother No Known Problems Paternal Grandfather No Known Problems Brother Social History Social History Narrative Not on file Allergies: ALLERGIES Allergen Reactions Amoxicillin Unknown WAS TOLD BY MOM Medications: SUMAtriptan (IMITREX) 100 mg tablet Take 1 tablet by mouth as needed for migraine headache (see administration instructions). omeprazole (PRILOSEC) 40 mg capsule Take 1 capsule by mouth once daily. Nqwfbalv-Yr-Rgy-Fe-FA tab Take 1 tablet by mouth once daily. hydrocortisone (ANUSOL-HC) 2.5 % rectal cream by RECTAL route twice daily. Problem List: ACTIVE PROBLEM LIST Gerd Without Esophagitis - 02/08/2022 Pud (Peptic Ulcer Disease) - 11/26/2021 Hypertension, Essential - 11/26/2021 Comment: CHTN controlled without medications Hgb, plt, Cr wnl AST/ALT hemolyzed Hyperlipidemia, Mixed - 11/26/2021 Obesity, Class II, Bmi 35-39.9 - 09/03/2018 Comment: -SCDs intrapartum and after delivery until ambulatory Migraine Without Aura and Without Status Migrainosus, Not Intractable - 07/07/2018 Review of Systems Constitutional: Negative for chills and fever. Respiratory: Negative for cough and shortness of breath. Cardiovascular: Negative for chest pain and palpitations. Gastrointestinal: Positive for heartburn. Physical Exam Vitals and nursing note reviewed. Constitutional: General: She is not in acute distress. Appearance: She is well-developed. She is not diaphoretic. HENT: Head: Normocephalic and atraumatic. Eyes: General: Right eye: No discharge. Left eye: No discharge. Conjunctiva/sclera: Conjunctivae normal. Cardiovascular: Rate and Rhythm: Normal rate and regular rhythm. Heart sounds: Normal heart sounds. No murmur heard. No friction rub. No gallop. Pulmonary: Effort: Pulmonary effort is normal. No respiratory distress. Breath sounds: Normal breath sounds. No wheezing, rhonchi or rales. Skin: General: Skin is warm and dry. Neurological: Mental Status: She is alert and oriented to person, place, and time. Mental status is at baseline. BP 130/78 Pulse 88 Temp 36.3 C (97.3 F) Ht 162.6 cm (5' 4) Wt 95.3 kg (210 lb) LMP 12/09/2022 (Exact Date) BMI 36.05 kg/m ASSESSMENT/PLAN: 1. Hypertension, essential - ICD9: 401.9, ICD10: I10 (primary diagnosis) - good control - Recommended regular aerobic exercise. - Recommend home blood pressure monitoring, to bring results in on next visit - Discussed need and benefit for weight loss. - Goal of BP <130/80 2. History of gestational diabetes - ICD9: V12.21, ICD10: Z86.32 A1c normal today - HEMOGLOBIN A1C (POC) 3. Obesity, Class II, BMI 35-39.9 - ICD9: 278.00, ICD10: E66.9 Weight decreasing - Behavioral intervention 4. GERD without esophagitis - ICD9: 530.81, ICD10: K21.9 Stable, continue omeprazole 5. PUD (peptic ulcer disease) - ICD9: 533.90, ICD10: K27.9 Continue omeprazole 6. External hemorrhoid - ICD9: 455.3, ICD10: K64.4 - HYDROCORTISONE 2.5 % TOPICAL CREAM WITH PERINEAL APPLICATOR Shaun Carlin MD documented in this encounterMain [facility] Center03-28-2023 History of Present illness Narrative* Alysha Ruff APRN.GROUP WORKER - 12/10/2022 9:45 AM EDT Sia Olivera is a 37 year old year old female who presents for a RN CLINICAL APPEALS problem visit for IUD check. Mirena IUD placed 11/01/2022 REVIEW OF SYSTEMS: Vaginal discharge:none Itching:No Abnormal bleeding: No Dyspareunia:No Fever/Chills:No Abdominal pain:No Bladder: Contraception:IUD OBJECTIVE: 12/10/22 0945 BP: 114/80 Weight: 210 lb (95.3 kg) Height: 5' 4 (1.626 m) Physical Exam Constitutional: General: She is not in acute distress. Appearance: Normal appearance. HENT: Head: Normocephalic and atraumatic. Pulmonary: Effort: Pulmonary effort is normal. Genitourinary: General: Normal vulva. Pubic Area: No rash. Labia Right: No rash or lesion. Left: No rash or lesion. Urethra: No prolapse, urethral swelling or urethral lesion. Vagina: No vaginal discharge, erythema, bleeding or lesions. Cervix: No cervical motion tenderness, discharge, friability, lesion, erythema. Bleeding- she is onmenses. IUD strings visualized. Skin: General: Skin is warm and dry. Neurological: Mental Status: She is alert and oriented to person, place, and time. Psychiatric: Mood and Affect: Mood normal. Behavior: Behavior normal. ASSESSMENT/PLAN: 1. Encounter for routine checking of intrauterine contraceptive device (IUD) - ICD9: V25.42, ICD10:Z30.431 Strings seen, no complaints since IUD placed. Alysha Ruff APRN.CNP documented in this [facility]02-17-2023 Instructions* Patient Instructions* Alysha Ruff APRN.CNP - 11/01/2022 1:44 PM EST Irregular bleeding is common the first 3-6 months after an IUD insertion This should decrease over time Those using a hormonal IUD (Mirena, Kyleena, Liletta, Riddhi) can expect irregular or periods over the entire time span of use and may even stop having periods (amenorrhea). This is considered normal with this type of device. Those using the non-hormonal copper IUD (Paragard) should still have a monthly period after the initial adjustment period. Periods could be slightly heavier and/or longer, and users of this device may experience more cramping with their periods than they did prior to insertion of the device. Call the office if you experience excessively heavy bleeding with your IUD or if experiencing severe pelvic pain. documented in this [facility] Procedure note* Alysha Ruff APRN.CNP - 11/01/2022 1:41 PM ESTAssociated Order(s): IUD INSERTION Post-Procedure Diagnose(s): Encounter for IUD insertion IUD INSERTION PROCEDURE Date/Time: 11/01/2022 1:41 PM Performed by: Alysha Ruff APRN.CNP Authorized by: Alysha Ruff APRN.CNP Indication: contraception Diagnosis: (Z30.430) Encounter for IUD insertion (primary encounter diagnosis) (Z11.3) Routine screening for STI (sexually transmitted infection) Patient's last menstrual period was 12/05/2021 (exact date). Informed Consent Consent Obtained: Written [place] Protocol A moment to CARE was completed. SIGN IN Personnel directly involved with the procedure wore the appropriate PPE. Special Equipment: Yes Patient/Surrogate Stated/Verified: Patient name, Date of , Relevant allergies and Intended procedure TIME OUT Intended patient and procedure match the source document(s). Consent documented and matches the intended procedure. Relevant labs, photos, and/or imaging studies have been reviewed. No correct side/site applicable for marking and visibility. No medications required for procedure. No fire risk assessment and interventions applicable. Implant(s) inserted. Correct implant(s) confirmed including size and side and Expiration date(s) reviewed. Pre-Procedure Details: Personnel: Personnel directly involved with the procedure wore the appropriate PPE Procedure Details: GC/chlamydia test: collected today Urine test: n/a Serum test: negative Pelvic exam performed. Speculum placed in vagina. Cervix cleaned and prepped. Tenaculum applied to cervix. Uterus sounded. Uterus sound depth (cm): 7.5 IUD inserted successfully: yes IUD type: Mirena IUD Lot #: [id number] Expiration Date: 07/16/2024 Strings trimmed. Post-Procedure Details: Patient tolerated the procedure well with no immediate complications Patient Education: side effects discussed with patient including irregular spotting. Patient to follow-up PRN any problems. SIGN OUT All instruments, equipment, possible retained foreign bodies accounted for. Post-procedure follow-up management communicated and Plan of Care Visit completed when applicable Alysha Ruff APRN.GROUP WORKER documented in this encounterMain [facility] History of Present illness Narrative* Tricia Rangel MD - 10/23/2022 3:14 PM EST VISIT Sia Olivera is a 37 year old year old here for visit. Delivery Summary: c/s on 09/12 complicated by chtn, no meds ROS/ Recovery: Feeding: Breast and bottle feeding problems: None Menses since delivery: spotting Menstrual pattern prior to : Regular periods [place] since delivery: Resumed Depression: denies symptoms of depression. OB Depression and Anxiety Screening- This Encounter (since 10/22/2022) Over the past 2 weeks have you felt down, depressed, or hopeless? Negative Over the past two weeks, have you felt little interest or pleasure in doing things? Negative Emotional support: Yes Bowel symptoms: Negative for abdominal discomfort, blood in stools or black stools and change in bowel habits Abdomen: She reports no incisional redness, tenderness, erythema Bladder symptoms: No dysuria, gross hematuria, urinary frequency, urinary urgency, or incontinence Other issues: None Last Pap: 2021 abnormal, ascus HPV: negative PAST MEDICAL HISTORY Diagnosis Date Abnormal Pap smear of cervix 2019 ASCUS neg HPV ADHD (attention deficit hyperactivity disorder), combined type 08/11/2018 Anemia Anxiety 07/07/2018 Bipolar disorder, in partial remission, most recent episode mixed (HCC) 10/04/2019 Depression, major, recurrent, moderate (HCC) 07/07/2018 Diet controlled gestational diabetes mellitus (GDM) in second trimester 07/05/2022 Drug use disorder remission since 06/2019; methamphetamines, marijuana Gastritis due to Helicobacter species 11/26/2021 Group B Streptococcus carrier, antepartum 07/26/2021 Sensitive to Vanc Herpes simplex virus (HSV) infection 2008 Hypertension, essential 11/26/2021 Migraine without aura and without status migrainosus, not intractable 07/07/2018 MRSA infection 08/15/2021 -patient reports history of multi-site staph skin infection, is unsure if MRSA or MSSA -will treat with vancomycin preoperatively if need for delivery OAB (overactive bladder) PUD (peptic ulcer disease) 11/26/2021 Urinary tract infection in , antepartum, second trimester 03/28/2022 PAST SURGICAL HISTORY Procedure Laterality Date SECTION HX INDUCED BY D&C 2008 FAMILY HISTORY Problem Relation Age of Onset Heart Mother Hypertension Father No Known Problems Brother No Known Problems Maternal Grandmother No Known Problems Maternal Grandfather Breast Cancer Paternal Grandmother No Known Problems Paternal Grandfather No Known Problems Brother Social History Tobacco Use Smoking status: Former Types: Cigarettes Smokeless tobacco: Former Quit date: 10/16/2020 Vaping Use Vaping Use: Never used Substance Use Topics Alcohol use: Not Currently Comment: rarely Drug use: Not Currently Types: Crystal Meth Comment: remission 06/2019 PHYSICAL EXAMINATION: BP 141/82 Ht 5' 4 (1.63m) Wt 213 lb (96.6kg) LMP 12/05/2021 BMI 36.54 kg/(m^2). GENERAL: pleasant, female in no apparent distress HEENT: Normocephalic, atraumatic, mucus membranes moist, and no lesions NECK: Supple, full range of motion, no adenopathy, and thyroid normal DERMATOLOGY: Normal, without lesions, non-icteric, and non-hirsute BREAST: deferred CHEST: Normal inspiratory effort ABDOMEN: soft, non-tender, and no masses. INCISION: No incisional redness, swelling, or drainage PELVIC: external genitalia normal, normal Bartholin's glands, urethra, Sidell's glands, no vulvar lesions, no cervical lesions, good vaginal support, physiologic discharge present, normal appearing perineal body and perianal region BIMANUAL: uterus normal size, shape and consistency, anteverted, no adnexal masses, and non-tender NEURO: alert and oriented x3,exam grossly non-focal EXTREMITIES: normal ASSESSMENT AND PLAN: 37 year old status post CS with normal course. Contraception plan: IUD - Mirena Follow up: RTC for insertion of IUD, f/u bp with pcp Tricia Rangel MD documented in this encounterMain [facility]02-07-2023 Miscellaneous Notes* Telephone Encounter - Diane Lee - 10/22/2022 8:56 AM EST Pt LVM requesting to [facility] appt charly/ Kim for hernia. Called back PT no answer LVM documented in this encounterMain [facility] Center01-24-2023 History of Present illness Narrative* Shaun Carlin MD - 10/08/2022 11:04 AM EST The patient is a 37-year-old female who presents for follow-up on chronic conditions. Recently just had another baby within the past month. Doing well . BP has been fairly well controlled off of medications. She is interested in switching back to omeprazole for GERD. Hypertension This is a chronic problem. The current episode started more than 1 year ago. The problem has been waxing and waning since onset. The problem is controlled. Associated symptoms include headaches. Pertinent negatives include no chest pain, palpitations or shortness of breath. Past treatments include lifestyle changes. The current treatment provides moderate improvement. GERD She complains of heartburn. She reports no chest pain or no coughing. This is a chronic problem. The current episode started more than 1 year ago. The problem occurs frequently. The problem has been waxing and waning. She has tried a histamine-2 antagonist for the symptoms. The treatment provided moderate relief. Headache This is a chronic problem. The current episode started more than 1 week ago. The problem has not changed since onset.The pain is moderate. Pertinent negatives include no fever, no palpitations and noshortness of breath. She has tried triptan therapy for the symptoms. The treatment provided moderate relief. HISTORY REVIEWED PAST MEDICAL HISTORY Diagnosis Date Abnormal Pap smear of cervix 2019 ASCUS neg HPV ADHD (attention deficit hyperactivity disorder), combined type 08/11/2018 Anemia Anxiety 07/07/2018 Bipolar disorder, in partial remission, most recent episode mixed (HCC) 10/04/2019 Depression, major, recurrent, moderate (HCC) 07/07/2018 Diet controlled gestational diabetes mellitus (GDM) in second trimester 07/05/2022 Drug use disorder remission since 06/2019; methamphetamines, marijuana Gastritis due to Helicobacter species 11/26/2021 Group B Streptococcus carrier, antepartum 07/26/2021 Sensitive to Vanc Herpes simplex virus (HSV) infection 2008 Hypertension, essential 11/26/2021 Migraine without aura and without status migrainosus, not intractable 07/07/2018 MRSA infection 08/15/2021 -patient reports history of multi-site staph skin infection, is unsure if MRSA or MSSA -will treat with vancomycin preoperatively if need for delivery OAB (overactive bladder) PUD (peptic ulcer disease) 11/26/2021 Urinary tract infection in , antepartum, second trimester 03/28/2022 PAST SURGICAL HISTORY Procedure Laterality Date SECTION HX INDUCED BY D&C 2008 FAMILY HISTORY Problem Relation Age of Onset Heart Mother Hypertension Father No Known Problems Brother No Known Problems Maternal Grandmother No Known Problems Maternal Grandfather Breast Cancer Paternal Grandmother No Known Problems Paternal Grandfather No Known Problems Brother Social History Social History Narrative Not on file Allergies: ALLERGIES Allergen Reactions Amoxicillin Unknown WAS TOLD BY MOM Medications: famotidine (PEPCID) 20 mg tablet Take 20 mg by mouth twice daily. nystatin (MYCOSTATIN) 100,000 unit/mL suspension Take 5 mL by mouth four times daily for 7 days. Swish and swallow. SUMAtriptan (IMITREX) 50 mg tablet Take 1 tablet by mouth as needed. ibuprofen (MOTRIN) 600 mg tablet Take 1 tablet by mouth every 6 hours. Qchdygec-Qv-Vhe-Fe-FA tab Take 1 tablet by mouth once daily. oxyCODONE IR (ROXICODONE) 5 mg immediate release tablet Take 1-2 tablets by mouth every 6 hours as needed. Problem List: ACTIVE PROBLEM LIST Encounter for Induction of Labor - 09/11/2022 Comment: IOL GDMA1/CHTN/AMA GBS + PCN Pitocin per protocol Epidural in place Amniotomy at 0200 for clear fluid IUPC/FSE in place Hx 3 , 1 VAVD - 7#12 largest 36w6d growth US - EFW 76%, AC 91%,7#4 Contraception Management - 09/11/2022 Comment: - desires post-placental Mirena - consent signed [facility] - 09/11/2022 Comment: - history 4 prior SVDs, this will be delivery #5 - admission CBC 11.9 Diet Controlled Gestational Diabetes Mellitus (Gdm) in Second Trimester - 07/05/2022 Comment: Well controlled Fasting and postprandial BG wnl Will check BGs q2h in latent labor, q1hr in active labor Urinary Tract Infection Affecting Care of Mother in Second Trimester, Antepartum - 03/28/2022 Comment: Presents with complaint of burning upon urination and still feeling the urge to pee after emptying bladder Urine dip +nitrates, +leukocytes Urine culture sent Macrobid Abdominal Pain Affecting - 03/11/2022 Comment: - Currently reporting no pain at this time - Urine Dip does not show signs of infection - Likely musculoskeletal Preexisting Hypertension Complicating , Antepartum - 03/05/2022 Obesity Complicating , First Trimester - 03/05/2022 History of Group B Streptococcus (Gbs) Infection - 03/05/2022 Comment: Reports has previously tolerated penicillin Multigravida of Advanced Maternal Age in First Trimester - 03/05/2022 Comment: -Low risk NIPT -Normal anatomy Herpes Simplex Type 2 (Hsv-2) Infection Affecting , Antepartum, Unspecified Trimester - 03/05/2022 Comment: Stable with valtrex suppression Negative sterile speculum on admission Vaginitis Complicating Current - 03/05/2022 History of Drug Use - 03/05/2022 Comment: - denies recent use - since before last Gerd Without Esophagitis - 02/08/2022 Pud (Peptic Ulcer Disease) - 11/26/2021 Hypertension, Essential - 11/26/2021 Comment: CHTN controlled without medications Hgb, plt, Cr wnl AST/ALT hemolyzed Hyperlipidemia, Mixed - 11/26/2021 History of Mrsa Infection - 08/15/2021 Comment: -patient reports history of multi-site staph skin infection, is unsure if MRSA or MSSA -will treat with vancomycin preoperatively if need for delivery Nausea and Vomiting of , Antepartum - 01/12/2021 Obesity, Class II, Bmi 35-39.9 - 09/03/2018 Comment: -SCDs intrapartum and after delivery until ambulatory Migraine Without Aura and Without Status Migrainosus, Not Intractable - 07/07/2018 Review of Systems Constitutional: Negative for chills and fever. Respiratory: Negative for cough and shortness of breath. Cardiovascular: Negative for chest pain and palpitations. Gastrointestinal: Positive for heartburn. Neurological: Positive for headaches. Physical Exam Vitals and nursing note reviewed. Constitutional: General: She is not in acute distress. Appearance: She is well-developed. She is not diaphoretic. HENT: Head: Normocephalic and atraumatic. Eyes: General: Right eye: No discharge. Left eye: No discharge. Conjunctiva/sclera: Conjunctivae normal. Cardiovascular: Rate and Rhythm: Normal rate and regular rhythm. Heart sounds: Normal heart sounds. No murmur heard. No friction rub. No gallop. Pulmonary: Effort: Pulmonary effort is normal. No respiratory distress. Breath sounds: Normal breath sounds. No wheezing, rhonchi or rales. Skin: General: Skin is warm and dry. Neurological: Mental Status: She is alert and oriented to person, place, and time. Mental status is at baseline. BP 136/88 Pulse 80 Temp 36.4 C (97.5 F) Ht 162.6 cm (5' 4) Wt 98 kg (216 lb) LMP 12/05/2021 (Exact Date) Yes BMI 37.08 kg/m ASSESSMENT/PLAN: 1. Yeast dermatitis - ICD9: 112.3, ICD10: B37.2 (primary diagnosis) - NYSTATIN 100,000 UNIT/GRAM TOPICAL CREAM 2. GERD without esophagitis - ICD9: 530.81, ICD10: K21.9 Switch to omeprazole - OMEPRAZOLE 40 MG CAPSULE,DELAYED RELEASE 3. Hypertension, essential - ICD9: 401.9, ICD10: I10 - fair control - Recommended regular aerobic exercise. - Recommend home blood pressure monitoring, to bring results in on next visit - Discussed need and benefit for weight loss. - Goal of BP <130/80 4. Migraine without aura and without status migrainosus, not intractable - ICD9: 346.10, ICD10: G43.009 Try increase to 100mg dose - SUMATRIPTAN 100 MG TABLET 5. PUD (peptic ulcer disease) - ICD9: 533.90, ICD10: K27.9 Restart PPI 6. History of gestational diabetes - ICD9: V12.21, ICD10: Z86.32 Diet controlled, glucose has been WNL Check A1C next visit Shaun Carlin MD documented in this encounterMain [facility]01-05-2023 Miscellaneous Notes* Telephone Encounter - Michelle Osborn LPN - 09/19/2022 9:23 AM EST Requested Prescriptions Pending Prescriptions Disp Refills SUMAtriptan (IMITREX) 50 mg tablet 12 tablet 2 Sig: Take 1 tablet by mouth as needed. documented in this encounterMain [facility] Center12-28-2022 History of Past illness Narrative* Problem Noted Date Resolved Date Encounter for induction of labor 09/11/2022 10/08/2022 Overview: IOL GDMA1/CHTN/AMA GBS + PCN Pitocin per protocol Epidural in place Amniotomy at 0200 for clear fluid IUPC/FSE in place Hx 3 , 1 VAVD - 7#12 largest 36w6d growth US - EFW 76%, AC 91%,7#4 Contraception management 09/11/2022 023 Overview: - desires post-placental Mirena - consent signed Diet controlled gestational diabetes mellitus (GDM) in second trimester 07/05/2022 10/08/2022 Overview: Well controlled Fasting and postprandial BG wnl Will check BGs q2h in latent labor, q1hr in active labor Urinary tract infection affe cting care of mother in second trimester, antepartum 03/28/2022 10/08/2022 Overview: Presents with complaint of burning upon urination and still feeling the urge to pee after emptying bladder Urine dip +nitrates, +leukocytes Urine culture sent Macrobid 14 weeks gestation of 03/28/2022 09/11/2022 Vaginal bleeding in 03/11/2022 Overview: - SSE shows a closed cervix, 4 cc of dark blood, but there is no active bleeding noted - FHR is present and an appropriate rate at 170 visualized on ultrasound - RH +, Rhogham not indicated - Patient consouled on return precaution & signs/symptoms to monitor for - She will be calling her OB tomorrow to schedule a close outpatient follow up appointment & to schedule nuchal translucency ultrasound Abdominal pain affecting 03/11/2022 10/08/2022 Overview: - Currently reporting no pain at this time - Urine Dip does not show signs of infection - Likely musculoskeletal Preexisting hypertension complicating , antepartum 03/05/2022 10/08/2022 Obesity complicating , first trimester 03/05/2022 10/08/2022 History of group B Streptococcus (GBS) infection 03/05/2022 10/08/2022 Overview: Reports has previously tolerated penicillin Multigravida of advanced maternal age in first t rimester 03/05/2022 10/08/2022 Overview: -Low risk NIPT -Normal anatomy 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 , antepartum, unspecified trimester 03/05/2022 10/08/2022 Overview: Stable with valtrex suppression Negative sterile speculum on admission History of drug use 03/05/2022 10/08/2022 Overview: - denies recent use - since before last Gastritis due to Helicobacter species 11/26/2021 02/08/2022 Epigastric pain 10/30/2021 02/08/2022 Elevated blood pressure read ing without diagnosis of hypertension 10/30/2021 11/26/2021 Encounter for elective induction of labor 202008/18/2021 Overview: -GSB+, PCN allergy, Ancef in labor -Pitocin per protocol (halved x1) -amniotomy @1530 -epidural in -IUPC -FSE H/o 1 VAVD and SVDx2, most recent in 2010, largest 7lbs 9oz Growth US @ 36w5d, EFW 6lbs 9oz, 48% Negative NIPT History of MRSA infection 08/15/20212022 Overview: -patient reports history of multi-site staph skin infection, is unsure if MRSA or MSSA -will treat with vancomycin preoperatively if need for delivery Group B Streptococcus carrier, antepartum 202010/30/2021 Overview: Sensitive to Vanc headache in first trimester 02/09/2021 06/29/2021 Elderly multigravida in third trimester 01/13/20 21 10/30/2021 Overview: -negative NIPT 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 , antepartum, third trimester 01/12/2021 10/30/2021 Overview: -On Acyclovir since 36 weeks, compliant -SSE negative on admission -denies recent symptoms or outbreaks Nausea and vomiting of , antepartum 10/08/2022 Bipolar disorder, in partial remission, most recent episode mixed 10/04/2019 08/15/2021 Pure hypercholesterolemia 11/02/20182020 Tobacco use disorder 10/30/2018 12/12/2020 Abdominal wall mass 08/11/2018 09/03/2018 ADHD (attention deficit hype ractivity disorder), combined type 08/11/2018 08/15/2021 Depression, major, recurrent, moderate 8 08/15/2021 Anxiety 07/07/2018 08/15/2021 Methamphetamine abuse 07/07/2018 04/26/2021 Marijuana abuse 07/07/2018 04/26/2021 documented as of this encounter (statuses as of 10/08/2022) [facility] of Past illness Narrative* Problem Noted Date Resolved Date Encounter for induction of labor 09/11/2022 10/08/2022 Overview: IOL GDMA1/CHTN/AMA GBS + PCN Pitocin per protocol Epidural in place Amniotomy at 0200 for clear fluid IUPC/FSE in place Hx 3 , 1 VAVD - 7#12 largest 36w6d growth US - EFW 76%, AC 91%,7#4 Contraception management 09/11/2022 023 Overview: - desires post-placental Mirena - consent signed Diet controlled gestational diabetes mellitus (GDM) in second trimester 07/05/2022 10/08/2022 Overview: Well controlled Fasting and postprandial BG wnl Will check BGs q2h in latent labor, q1hr in active labor Urinary tract infection affe cting care of mother in second trimester, antepartum 03/28/2022 10/08/2022 Overview: Presents with complaint of burning upon urination and still feeling the urge to pee after emptying bladder Urine dip +nitrates, +leukocytes Urine culture sent Macrobid 14 weeks gestation of 03/28/2022 09/11/2022 Vaginal bleeding in 03/11/2022 Overview: - SSE shows a closed cervix, 4 cc of dark blood, but there is no active bleeding noted - FHR is present and an appropriate rate at 170 visualized on ultrasound - RH +, Rhogham not indicated - Patient consouled on return precaution & signs/symptoms to monitor for - She will be calling her OB tomorrow to schedule a close outpatient follow up appointment & to schedule nuchal translucency ultrasound Abdominal pain affecting 03/11/2022 10/08/2022 Overview: - Currently reporting no pain at this time - Urine Dip does not show signs of infection - Likely musculoskeletal Preexisting hypertension complicating , antepartum 03/05/2022 10/08/2022 Obesity complicating , first trimester 03/05/2022 10/08/2022 History of group B Streptococcus (GBS) infection 03/05/2022 10/08/2022 Overview: Reports has previously tolerated penicillin Multigravida of advanced maternal age in first t rimester 03/05/2022 10/08/2022 Overview: -Low risk NIPT -Normal anatomy 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 , antepartum, unspecified trimester 03/05/2022 10/08/2022 Overview: Stable with valtrex suppression Negative sterile speculum on admission History of drug use 03/05/2022 10/08/2022 Overview: - denies recent use - since before last Gastritis due to Helicobacter species 11/26/2021 02/08/2022 Epigastric pain 10/30/2021 02/08/2022 Elevated blood pressure read ing without diagnosis of hypertension 10/30/2021 11/26/2021 Encounter for elective induction of labor 202008/18/2021 Overview: -GSB+, PCN allergy, Ancef in labor -Pitocin per protocol (halved x1) -amniotomy @1530 -epidural in -IUPC -FSE H/o 1 VAVD and SVDx2, most recent in 2010, largest 7lbs 9oz Growth US @ 36w5d, EFW 6lbs 9oz, 48% Negative NIPT History of MRSA infection 08/15/20212022 Overview: -patient reports history of multi-site staph skin infection, is unsure if MRSA or MSSA -will treat with vancomycin preoperatively if need for delivery Group B Streptococcus carrier, antepartum 202010/30/2021 Overview: Sensitive to Vanc headache in first trimester 02/09/2021 06/29/2021 Elderly multigravida in third trimester 01/13/20 21 10/30/2021 Overview: -negative NIPT 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 , antepartum, third trimester 01/12/2021 10/30/2021 Overview: -On Acyclovir since 36 weeks, compliant -SSE negative on admission -denies recent symptoms or outbreaks Nausea and vomiting of , antepartum 10/08/2022 Bipolar disorder, in partial remission, most recent episode mixed 10/04/2019 08/15/2021 Pure hypercholesterolemia 11/02/20182020 Tobacco use disorder 10/30/2018 12/12/2020 Abdominal wall mass 08/11/2018 09/03/2018 ADHD (attention deficit hype ractivity disorder), combined type 08/11/2018 08/15/2021 Depression, major, recurrent, moderate 8 08/15/2021 Anxiety 07/07/2018 08/15/2021 Methamphetamine abuse 07/07/2018 04/26/2021 Marijuana abuse 07/07/2018 04/26/2021 documented as of this encounter (statuses as of 10/22/2022) [facility]12-28-[facility]22 History of Past illness Narrative* Problem Noted Date Resolved Date Encounter for induction of labor 09/11/2022 10/08/2022 Overview: IOL GDMA1/CHTN/AMA GBS + PCN Pitocin per protocol Epidural in place Amniotomy at 0200 for clear fluid IUPC/FSE in place Hx 3 , 1 VAVD - 7#12 largest 36w6d growth US - EFW 76%, AC 91%,7#4 Contraception management 09/11/2022 023 Overview: - desires post-placental Mirena - consent signed Diet controlled gestational diabetes mellitus (GDM) in second trimester 07/05/2022 10/08/2022 Overview: Well controlled Fasting and postprandial BG wnl Will check BGs q2h in latent labor, q1hr in active labor Urinary tract infection affe cting care of mother in second trimester, antepartum 03/28/2022 10/08/2022 Overview: Presents with complaint of burning upon urination and still feeling the urge to pee after emptying bladder Urine dip +nitrates, +leukocytes Urine culture sent Macrobid 14 weeks gestation of 03/28/2022 09/11/2022 Vaginal bleeding in 03/11/2022 Overview: - SSE shows a closed cervix, 4 cc of dark blood, but there is no active bleeding noted - FHR is present and an appropriate rate at 170 visualized on ultrasound - RH +, Rhogham not indicated - Patient consouled on return precaution & signs/symptoms to monitor for - She will be calling her OB tomorrow to schedule a close outpatient follow up appointment & to schedule nuchal translucency ultrasound Abdominal pain affecting 03/11/2022 10/08/2022 Overview: - Currently reporting no pain at this time - Urine Dip does not show signs of infection - Likely musculoskeletal Preexisting hypertension complicating , antepartum 03/05/2022 10/08/2022 Obesity complicating , first trimester 03/05/2022 10/08/2022 History of group B Streptococcus (GBS) infection 03/05/2022 10/08/2022 Overview: Reports has previously tolerated penicillin Multigravida of advanced maternal age in first t rimester 03/05/2022 10/08/2022 Overview: -Low risk NIPT -Normal anatomy 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 , antepartum, unspecified trimester 03/05/2022 10/08/2022 Overview: Stable with valtrex suppression Negative sterile speculum on admission History of drug use 03/05/2022 10/08/2022 Overview: - denies recent use - since before last Gastritis due to Helicobacter species 11/26/2021 02/08/2022 Epigastric pain 10/30/2021 02/08/2022 Elevated blood pressure read ing without diagnosis of hypertension 10/30/2021 11/26/2021 Encounter for elective induction of labor 202008/18/2021 Overview: -GSB+, PCN allergy, Ancef in labor -Pitocin per protocol (halved x1) -amniotomy @1530 -epidural in -IUPC -FSE H/o 1 VAVD and SVDx2, most recent in 2010, largest 7lbs 9oz Growth US @ 36w5d, EFW 6lbs 9oz, 48% Negative NIPT History of MRSA infection 08/15/20212022 Overview: -patient reports history of multi-site staph skin infection, is unsure if MRSA or MSSA -will treat with vancomycin preoperatively if need for delivery Group B Streptococcus carrier, antepartum 202010/30/2021 Overview: Sensitive to Vanc headache in first trimester 02/09/2021 06/29/2021 Elderly multigravida in third trimester 01/13/20 21 10/30/2021 Overview: -negative NIPT 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 , antepartum, third trimester 01/12/2021 10/30/2021 Overview: -On Acyclovir since 36 weeks, compliant -SSE negative on admission -denies recent symptoms or outbreaks Nausea and vomiting of , antepartum 10/08/2022 Bipolar disorder, in partial remission, most recent episode mixed 10/04/2019 08/15/2021 Pure hypercholesterolemia 11/02/20182020 Tobacco use disorder 10/30/2018 12/12/2020 Abdominal wall mass 08/11/2018 09/03/2018 ADHD (attention deficit hype ractivity disorder), combined type 08/11/2018 08/15/2021 Depression, major, recurrent, moderate 8 08/15/2021 Anxiety 07/07/2018 08/15/2021 Methamphetamine abuse 07/07/2018 04/26/2021 Marijuana abuse 07/07/2018 04/26/2021 documented as of this encounter (statuses as of 10/23/2022) [facility]12[facility]28[facility] History of Past illness Narrative* Problem Noted Date Resolved Date Encounter for induction of labor 09/11/2022 10/08/2022 Overview: IOL GDMA1/CHTN/AMA GBS + PCN Pitocin per protocol Epidural in place Amniotomy at 0200 for clear fluid IUPC/FSE in place Hx 3 , 1 VAVD - 7#12 largest 36w6d growth US - EFW 76%, AC 91%,7#4 Contraception management 09/11/2022 023 Overview: - desires post-placental Mirena - consent signed Diet controlled gestational diabetes mellitus (GDM) in second trimester 07/05/2022 10/08/2022 Overview: Well controlled Fasting and postprandial BG wnl Will check BGs q2h in latent labor, q1hr in active labor Urinary tract infection affe cting care of mother in second trimester, antepartum 03/28/2022 10/08/2022 Overview: Presents with complaint of burning upon urination and still feeling the urge to pee after emptying bladder Urine dip +nitrates, +leukocytes Urine culture sent Macrobid 14 weeks gestation of 03/28/2022 09/11/2022 Vaginal bleeding in 03/11/2022 Overview: - SSE shows a closed cervix, 4 cc of dark blood, but there is no active bleeding noted - FHR is present and an appropriate rate at 170 visualized on ultrasound - RH +, Rhogham not indicated - Patient consouled on return precaution & signs/symptoms to monitor for - She will be calling her OB tomorrow to schedule a close outpatient follow up appointment & to schedule nuchal translucency ultrasound Abdominal pain affecting 03/11/2022 10/08/2022 Overview: - Currently reporting no pain at this time - Urine Dip does not show signs of infection - Likely musculoskeletal Preexisting hypertension complicating , antepartum 03/05/2022 10/08/2022 Obesity complicating , first trimester 03/05/2022 10/08/2022 History of group B Streptococcus (GBS) infection 03/05/2022 10/08/2022 Overview: Reports has previously tolerated penicillin Multigravida of advanced maternal age in first t rimester 03/05/2022 10/08/2022 Overview: -Low risk NIPT -Normal anatomy 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 , antepartum, unspecified trimester 03/05/2022 10/08/2022 Overview: Stable with valtrex suppression Negative sterile speculum on admission History of drug use 03/05/2022 10/08/2022 Overview: - denies recent use - since before last Gastritis due to Helicobacter species 11/26/2021 02/08/2022 Epigastric pain 10/30/2021 02/08/2022 Elevated blood pressure read ing without diagnosis of hypertension 10/30/2021 11/26/2021 Encounter for elective induction of labor 202008/18/2021 Overview: -GSB+, PCN allergy, Ancef in labor -Pitocin per protocol (halved x1) -amniotomy @1530 -epidural in -IUPC -FSE H/o 1 VAVD and SVDx2, most recent in 2010, largest 7lbs 9oz Growth US @ 36w5d, EFW 6lbs 9oz, 48% Negative NIPT History of MRSA infection 08/15/20212022 Overview: -patient reports history of multi-site staph skin infection, is unsure if MRSA or MSSA -will treat with vancomycin preoperatively if need for delivery Group B Streptococcus carrier, antepartum 202010/30/2021 Overview: Sensitive to Vanc headache in first trimester 02/09/2021 06/29/2021 Elderly multigravida in third trimester 01/13/20 21 10/30/2021 Overview: -negative NIPT 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 , antepartum, third trimester 01/12/2021 10/30/2021 Overview: -On Acyclovir since 36 weeks, compliant -SSE negative on admission -denies recent symptoms or outbreaks Nausea and vomiting of , antepartum 10/08/2022 Bipolar disorder, in partial remission, most recent episode mixed 10/04/2019 08/15/2021 Pure hypercholesterolemia 11/02/20182020 Tobacco use disorder 10/30/2018 12/12/2020 Abdominal wall mass 08/11/2018 09/03/2018 ADHD (attention deficit hype ractivity disorder), combined type 08/11/2018 08/15/2021 Depression, major, recurrent, moderate 8 08/15/2021 Anxiety 07/07/2018 08/15/2021 Methamphetamine abuse 07/07/2018 04/26/2021 Marijuana abuse 07/07/2018 04/26/2021 documented as of this encounter (statuses as of 11/01/2022) [facility]12-28-2022 History of Past illness Narrative* Problem Noted Date Resolved Date Encounter for induction of labor 09/11/2022 10/08/2022 Overview: IOL GDMA1/CHTN/AMA GBS + PCN Pitocin per protocol Epidural in place Amniotomy at 0200 for clear fluid IUPC/FSE in place Hx 3 , 1 VAVD - 7#12 largest 36w6d growth US - EFW 76%, AC 91%,7#4 Contraception management 09/11/2022 023 Overview: - desires post-placental Mirena - consent signed Diet controlled gestational diabetes mellitus (GDM) in second trimester 07/05/2022 10/08/2022 Overview: Well controlled Fasting and postprandial BG wnl Will check BGs q2h in latent labor, q1hr in active labor Urinary tract infection affe cting care of mother in second trimester, antepartum 03/28/2022 10/08/2022 Overview: Presents with complaint of burning upon urination and still feeling the urge to pee after emptying bladder Urine dip +nitrates, +leukocytes Urine culture sent Macrobid 14 weeks gestation of 03/28/2022 09/11/2022 Vaginal bleeding in 03/11/2022 Overview: - SSE shows a closed cervix, 4 cc of dark blood, but there is no active bleeding noted - FHR is present and an appropriate rate at 170 visualized on ultrasound - RH +, Rhogham not indicated - Patient consouled on return precaution & signs/symptoms to monitor for - She will be calling her OB tomorrow to schedule a close outpatient follow up appointment & to schedule nuchal translucency ultrasound Abdominal pain affecting 03/11/2022 10/08/2022 Overview: - Currently reporting no pain at this time - Urine Dip does not show signs of infection - Likely musculoskeletal Preexisting hypertension complicating , antepartum 03/05/2022 10/08/2022 Obesity complicating , first trimester 03/05/2022 10/08/2022 History of group B Streptococcus (GBS) infection 03/05/2022 10/08/2022 Overview: Reports has previously tolerated penicillin Multigravida of advanced maternal age in first t rimester 03/05/2022 10/08/2022 Overview: -Low risk NIPT -Normal anatomy 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 , antepartum, unspecified trimester 03/05/2022 10/08/2022 Overview: Stable with valtrex suppression Negative sterile speculum on admission History of drug use 03/05/2022 10/08/2022 Overview: - denies recent use - since before last Gastritis due to Helicobacter species 11/26/2021 02/08/2022 Epigastric pain 10/30/2021 02/08/2022 Elevated blood pressure read ing without diagnosis of hypertension 10/30/2021 11/26/2021 Encounter for elective induction of labor 202008/18/2021 Overview: -GSB+, PCN allergy, Ancef in labor -Pitocin per protocol (halved x1) -amniotomy @1530 -epidural in -IUPC -FSE H/o 1 VAVD and SVDx2, most recent in 2010, largest 7lbs 9oz Growth US @ 36w5d, EFW 6lbs 9oz, 48% Negative NIPT History of MRSA infection 08/15/20212022 Overview: -patient reports history of multi-site staph skin infection, is unsure if MRSA or MSSA -will treat with vancomycin preoperatively if need for delivery Group B Streptococcus carrier, antepartum 202010/30/2021 Overview: Sensitive to Vanc headache in first trimester 02/09/2021 06/29/2021 Elderly multigravida in third trimester 01/13/20 21 10/30/2021 Overview: -negative NIPT 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 , antepartum, third trimester 01/12/2021 10/30/2021 Overview: -On Acyclovir since 36 weeks, compliant -SSE negative on admission -denies recent symptoms or outbreaks Nausea and vomiting of , antepartum 10/08/2022 Bipolar disorder, in partial remission, most recent episode mixed 10/04/2019 08/15/2021 Pure hypercholesterolemia 11/02/20182020 Tobacco use disorder 10/30/2018 12/12/2020 Abdominal wall mass 08/11/2018 09/03/2018 ADHD (attention deficit hype ractivity disorder), combined type 08/11/2018 08/15/2021 Depression, major, recurrent, moderate 8 08/15/2021 Anxiety 07/07/2018 08/15/2021 Methamphetamine abuse 07/07/2018 04/26/2021 Marijuana abuse 07/07/2018 04/26/2021 documented as of this encounter (statuses as of 11/07/2022) [facility]12[facility] History of Past illness Narrative* Problem Noted Date Resolved Date Encounter for induction of labor 09/11/2022 10/08/2022 Overview: IOL GDMA1/CHTN/AMA GBS + PCN Pitocin per protocol Epidural in place Amniotomy at 0200 for clear fluid IUPC/FSE in place Hx 3 , 1 VAVD - 7#12 largest 36w6d growth US - EFW 76%, AC 91%,7#4 Contraception management 09/11/2022 023 Overview: - desires post-placental Mirena - consent signed Grand multiparity 09/11/2022 12/10/2022 Overview: - history 4 prior SVDs, this will be delivery #5 - admission CBC 11.9 Diet controlled gestational diabetes mellitus (GDM) in second trimester 07/05/2022 10/08/2022 Overview: Well controlled Fasting and postprandial BG wnl Will check BGs q2h in latent labor, q1hr in active labor Urinary tract infection affe cting care of mother in second trimester, antepartum 03/28/2022 10/08/2022 Overview: Presents with complaint of burning upon urination and still feeling the urge to pee after emptying bladder Urine dip +nitrates, +leukocytes Urine culture sent Macrobid 14 weeks gestation of 03/28/2022 09/11/2022 Vaginal bleeding in 03/11/2022 Overview: - SSE shows a closed cervix, 4 cc of dark blood, but there is no active bleeding noted - FHR is present and an appropriate rate at 170 visualized on ultrasound - RH +, Rhogham not indicated - Patient consouled on return precaution & signs/symptoms to monitor for - She will be calling her OB tomorrow to schedule a close outpatient follow up appointment & to schedule nuchal translucency ultrasound Abdominal pain affecting 03/11/2022 10/08/2022 Overview: - Currently reporting no pain at this time - Urine Dip does not show signs of infection - Likely musculoskeletal Preexisting hypertension complicating , antepartum 03/05/2022 10/08/2022 Obesity complicating , first trimester 03/05/2022 10/08/2022 History of group B Streptococcus (GBS) infection 03/05/2022 10/08/2022 Overview: Reports has previously tolerated penicillin Multigravida of advanced maternal age in first t rimester 03/05/2022 10/08/2022 Overview: -Low risk NIPT -Normal anatomy 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 , antepartum, unspecified trimester 03/05/2022 10/08/2022 Overview: Stable with valtrex suppression Negative sterile speculum on admission Vaginitis complicating current 022 12/10/2022 History of drug use 03/05/2022 10/08/2022 Overview: - denies recent use - since before last Gastritis due to Helicobacter species 11/26/2021 02/08/2022 Epigastric pain 10/30/2021 02/08/2022 Elevated blood pressure read ing without diagnosis of hypertension 10/30/2021 11/26/2021 Encounter for elective induction of labor 202008/18/2021 Overview: -GSB+, PCN allergy, Ancef in labor -Pitocin per protocol (halved x1) -amniotomy @1530 -epidural in -IUPC -FSE H/o 1 VAVD and SVDx2, most recent in 2010, largest 7lbs 9oz Growth US @ 36w5d, EFW 6lbs 9oz, 48% Negative NIPT History of MRSA infection 08/15/20212022 Overview: -patient reports history of multi-site staph skin infection, is unsure if MRSA or MSSA -will treat with vancomycin preoperatively if need for delivery Group B Streptococcus carrier, antepartum 202010/30/2021 Overview: Sensitive to Vanc headache in first trimester 02/09/2021 06/29/2021 Elderly multigravida in third trimester 01/13/20 21 10/30/2021 Overview: -negative NIPT 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 , antepartum, third trimester 01/12/2021 10/30/2021 Overview: -On Acyclovir since 36 weeks, compliant -SSE negative on admission -denies recent symptoms or outbreaks Nausea and vomiting of , antepartum 10/08/2022 Bipolar disorder, in partial remission, most recent episode mixed 10/04/2019 08/15/2021 Pure hypercholesterolemia 11/02/20182020 Tobacco use disorder 10/30/2018 12/12/2020 Abdominal wall mass 08/11/2018 09/03/2018 ADHD (attention deficit hype ractivity disorder), combined type 08/11/2018 08/15/2021 Depression, major, recurrent, moderate 8 08/15/2021 Anxiety 07/07/2018 08/15/2021 Methamphetamine abuse 07/07/2018 04/26/2021 Marijuana abuse 07/07/2018 04/26/2021 documented as of this encounter (statuses as of 12/10/2022) [facility] History of Past illness Narrative* Problem Noted Date Resolved Date Encounter for induction of labor 09/11/2022 10/08/2022 Overview: IOL GDMA1/CHTN/AMA GBS + PCN Pitocin per protocol Epidural in place Amniotomy at 0200 for clear fluid IUPC/FSE in place Hx 3 , 1 VAVD - 7#12 largest 36w6d growth US - EFW 76%, AC 91%,7#4 Contraception management 09/11/2022 023 Overview: - desires post-placental Mirena - consent signed Grand multiparity 09/11/2022 12/10/2022 Overview: - history 4 prior SVDs, this will be delivery #5 - admission CBC 11.9 Diet controlled gestational diabetes mellitus (GDM) in second trimester 07/05/2022 10/08/2022 Overview: Well controlled Fasting and postprandial BG wnl Will check BGs q2h in latent labor, q1hr in active labor Urinary tract infection affe cting care of mother in second trimester, antepartum 03/28/2022 10/08/2022 Overview: Presents with complaint of burning upon urination and still feeling the urge to pee after emptying bladder Urine dip +nitrates, +leukocytes Urine culture sent Macrobid 14 weeks gestation of 03/28/2022 09/11/2022 Vaginal bleeding in 03/11/2022 Overview: - SSE shows a closed cervix, 4 cc of dark blood, but there is no active bleeding noted - FHR is present and an appropriate rate at 170 visualized on ultrasound - RH +, Rhogham not indicated - Patient consouled on return precaution & signs/symptoms to monitor for - She will be calling her OB tomorrow to schedule a close outpatient follow up appointment & to schedule nuchal translucency ultrasound Abdominal pain affecting 03/11/2022 10/08/2022 Overview: - Currently reporting no pain at this time - Urine Dip does not show signs of infection - Likely musculoskeletal Preexisting hypertension complicating , antepartum 03/05/2022 10/08/2022 Obesity complicating , first trimester 03/05/2022 10/08/2022 History of group B Streptococcus (GBS) infection 03/05/2022 10/08/2022 Overview: Reports has previously tolerated penicillin Multigravida of advanced maternal age in first t rimester 03/05/2022 10/08/2022 Overview: -Low risk NIPT -Normal anatomy 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 , antepartum, unspecified trimester 03/05/2022 10/08/2022 Overview: Stable with valtrex suppression Negative sterile speculum on admission Vaginitis complicating current 022 12/10/2022 History of drug use 03/05/2022 10/08/2022 Overview: - denies recent use - since before last Gastritis due to Helicobacter species 11/26/2021 02/08/2022 Epigastric pain 10/30/2021 02/08/2022 Elevated blood pressure read ing without diagnosis of hypertension 10/30/2021 11/26/2021 Encounter for elective induction of labor 202008/18/2021 Overview: -GSB+, PCN allergy, Ancef in labor -Pitocin per protocol (halved x1) -amniotomy @1530 -epidural in -IUPC -FSE H/o 1 VAVD and SVDx2, most recent in 2010, largest 7lbs 9oz Growth US @ 36w5d, EFW 6lbs 9oz, 48% Negative NIPT History of MRSA infection 08/15/20212022 Overview: -patient reports history of multi-site staph skin infection, is unsure if MRSA or MSSA -will treat with vancomycin preoperatively if need for delivery Group B Streptococcus carrier, antepartum 202010/30/2021 Overview: Sensitive to Vanc headache in first trimester 02/09/2021 06/29/2021 Elderly multigravida in third trimester 01/13/20 21 10/30/2021 Overview: -negative NIPT 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 , antepartum, third trimester 01/12/2021 10/30/2021 Overview: -On Acyclovir since 36 weeks, compliant -SSE negative on admission -denies recent symptoms or outbreaks Nausea and vomiting of , antepartum 10/08/2022 Bipolar disorder, in partial remission, most recent episode mixed 10/04/2019 08/15/2021 Pure hypercholesterolemia 11/02/20182020 Tobacco use disorder 10/30/2018 12/12/2020 Abdominal wall mass 08/11/2018 09/03/2018 ADHD (attention deficit hype ractivity disorder), combined type 08/11/2018 08/15/2021 Depression, major, recurrent, moderate 8 08/15/2021 Anxiety 07/07/2018 08/15/2021 Methamphetamine abuse 07/07/2018 04/26/2021 Marijuana abuse 07/07/2018 04/26/2021 documented as of this encounter (statuses as of 12/10/2022) [facility] History of Past illness Narrative* Problem Noted Date Resolved Date Encounter for induction of labor 09/11/2022 10/08/2022 Overview: IOL GDMA1/CHTN/AMA GBS + PCN Pitocin per protocol Epidural in place Amniotomy at 0200 for clear fluid IUPC/FSE in place Hx 3 , 1 VAVD - 7#12 largest 36w6d growth US - EFW 76%, AC 91%,7#4 Contraception management 09/11/2022 023 Overview: - desires post-placental Mirena - consent signed Grand multiparity 09/11/2022 12/10/2022 Overview: - history 4 prior SVDs, this will be delivery #5 - admission CBC 11.9 Diet controlled gestational diabetes mellitus (GDM) in second trimester 07/05/2022 10/08/2022 Overview: Well controlled Fasting and postprandial BG wnl Will check BGs q2h in latent labor, q1hr in active labor Urinary tract infection affe cting care of mother in second trimester, antepartum 03/28/2022 10/08/2022 Overview: Presents with complaint of burning upon urination and still feeling the urge to pee after emptying bladder Urine dip +nitrates, +leukocytes Urine culture sent Macrobid 14 weeks gestation of 03/28/2022 09/11/2022 Vaginal bleeding in 03/11/2022 Overview: - SSE shows a closed cervix, 4 cc of dark blood, but there is no active bleeding noted - FHR is present and an appropriate rate at 170 visualized on ultrasound - RH +, Rhogham not indicated - Patient consouled on return precaution & signs/symptoms to monitor for - She will be calling her OB tomorrow to schedule a close outpatient follow up appointment & to schedule nuchal translucency ultrasound Abdominal pain affecting 03/11/2022 10/08/2022 Overview: - Currently reporting no pain at this time - Urine Dip does not show signs of infection - Likely musculoskeletal Preexisting hypertension complicating , antepartum 03/05/2022 10/08/2022 Obesity complicating , first trimester 03/05/2022 10/08/2022 History of group B Streptococcus (GBS) infection 03/05/2022 10/08/2022 Overview: Reports has previously tolerated penicillin Multigravida of advanced maternal age in first t rimester 03/05/2022 10/08/2022 Overview: -Low risk NIPT -Normal anatomy 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 , antepartum, unspecified trimester 03/05/2022 10/08/2022 Overview: Stable with valtrex suppression Negative sterile speculum on admission Vaginitis complicating current 022 12/10/2022 History of drug use 03/05/2022 10/08/2022 Overview: - denies recent use - since before last Gastritis due to Helicobacter species 11/26/2021 02/08/2022 Epigastric pain 10/30/2021 02/08/2022 Elevated blood pressure read ing without diagnosis of hypertension 10/30/2021 11/26/2021 Encounter for elective induction of labor 202008/18/2021 Overview: -GSB+, PCN allergy, Ancef in labor -Pitocin per protocol (halved x1) -amniotomy @1530 -epidural in -IUPC -FSE H/o 1 VAVD and SVDx2, most recent in 2010, largest 7lbs 9oz Growth US @ 36w5d, EFW 6lbs 9oz, 48% Negative NIPT History of MRSA infection 08/15/20212022 Overview: -patient reports history of multi-site staph skin infection, is unsure if MRSA or MSSA -will treat with vancomycin preoperatively if need for delivery Group B Streptococcus carrier, antepartum 202010/30/2021 Overview: Sensitive to Vanc headache in first trimester 02/09/2021 06/29/2021 Elderly multigravida in third trimester 01/13/20 21 10/30/2021 Overview: -negative NIPT 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 , antepartum, third trimester 01/12/2021 10/30/2021 Overview: -On Acyclovir since 36 weeks, compliant -SSE negative on admission -denies recent symptoms or outbreaks Nausea and vomiting of , antepartum 10/08/2022 Bipolar disorder, in partial remission, most recent episode mixed 10/04/2019 08/15/2021 Pure hypercholesterolemia 11/02/20182020 Tobacco use disorder 10/30/2018 12/12/2020 Abdominal wall mass 08/11/2018 09/03/2018 ADHD (attention deficit hype ractivity disorder), combined type 08/11/2018 08/15/2021 Depression, major, recurrent, moderate 8 08/15/2021 Anxiety 07/07/2018 08/15/2021 Methamphetamine abuse 07/07/2018 04/26/2021 Marijuana abuse 07/07/2018 04/26/2021 documented as of this encounter (statuses as of 01/02/2023) [facility] History of Past illness Narrative* Problem Noted Date Resolved Date Encounter for induction of labor 09/11/2022 10/08/2022 Overview: IOL GDMA1/CHTN/AMA GBS + PCN Pitocin per protocol Epidural in place Amniotomy at 0200 for clear fluid IUPC/FSE in place Hx 3 , 1 VAVD - 7#12 largest 36w6d growth US - EFW 76%, AC 91%,7#4 Contraception management 09/11/2022 023 Overview: - desires post-placental Mirena - consent signed Grand multiparity 09/11/2022 12/10/2022 Overview: - history 4 prior SVDs, this will be delivery #5 - admission CBC 11.9 Diet controlled gestational diabetes mellitus (GDM) in second trimester 07/05/2022 10/08/2022 Overview: Well controlled Fasting and postprandial BG wnl Will check BGs q2h in latent labor, q1hr in active labor Urinary tract infection affe cting care of mother in second trimester, antepartum 03/28/2022 10/08/2022 Overview: Presents with complaint of burning upon urination and still feeling the urge to pee after emptying bladder Urine dip +nitrates, +leukocytes Urine culture sent Macrobid 14 weeks gestation of 03/28/2022 09/11/2022 Vaginal bleeding in 03/11/2022 Overview: - SSE shows a closed cervix, 4 cc of dark blood, but there is no active bleeding noted - FHR is present and an appropriate rate at 170 visualized on ultrasound - RH +, Rhogham not indicated - Patient consouled on return precaution & signs/symptoms to monitor for - She will be calling her OB tomorrow to schedule a close outpatient follow up appointment & to schedule nuchal translucency ultrasound Abdominal pain affecting 03/11/2022 10/08/2022 Overview: - Currently reporting no pain at this time - Urine Dip does not show signs of infection - Likely musculoskeletal Preexisting hypertension complicating , antepartum 03/05/2022 10/08/2022 Obesity complicating , first trimester 03/05/2022 10/08/2022 History of group B Streptococcus (GBS) infection 03/05/2022 10/08/2022 Overview: Reports has previously tolerated penicillin Multigravida of advanced maternal age in first t rimester 03/05/2022 10/08/2022 Overview: -Low risk NIPT -Normal anatomy 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 , antepartum, unspecified trimester 03/05/2022 10/08/2022 Overview: Stable with valtrex suppression Negative sterile speculum on admission Vaginitis complicating current 022 12/10/2022 History of drug use 03/05/2022 10/08/2022 Overview: - denies recent use - since before last Gastritis due to Helicobacter species 11/26/2021 02/08/2022 Epigastric pain 10/30/2021 02/08/2022 Elevated blood pressure read ing without diagnosis of hypertension 10/30/2021 11/26/2021 Encounter for elective induction of labor 202008/18/2021 Overview: -GSB+, PCN allergy, Ancef in labor -Pitocin per protocol (halved x1) -amniotomy @1530 -epidural in -IUPC -FSE H/o 1 VAVD and SVDx2, most recent in 2010, largest 7lbs 9oz Growth US @ 36w5d, EFW 6lbs 9oz, 48% Negative NIPT History of MRSA infection 08/15/20212022 Overview: -patient reports history of multi-site staph skin infection, is unsure if MRSA or MSSA -will treat with vancomycin preoperatively if need for delivery Group B Streptococcus carrier, antepartum 202010/30/2021 Overview: Sensitive to Vanc headache in first trimester 02/09/2021 06/29/2021 Elderly multigravida in third trimester 01/13/20 21 10/30/2021 Overview: -negative NIPT 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 , antepartum, third trimester 01/12/2021 10/30/2021 Overview: -On Acyclovir since 36 weeks, compliant -SSE negative on admission -denies recent symptoms or outbreaks Nausea and vomiting of , antepartum 10/08/2022 Bipolar disorder, in partial remission, most recent episode mixed 10/04/2019 08/15/2021 Pure hypercholesterolemia 11/02/20182020 Tobacco use disorder 10/30/2018 12/12/2020 Abdominal wall mass 08/11/2018 09/03/2018 ADHD (attention deficit hype ractivity disorder), combined type 08/11/2018 08/15/2021 Depression, major, recurrent, moderate 8 08/15/2021 Anxiety 07/07/2018 08/15/2021 Methamphetamine abuse 07/07/2018 04/26/2021 Marijuana abuse 07/07/2018 04/26/2021 documented as of this encounter (statuses as of 01/02/2023) [facility] History of Past illness Narrative* Problem Noted Date Resolved Date Encounter for induction of labor 09/11/2022 10/08/2022 Overview: IOL GDMA1/CHTN/AMA GBS + PCN Pitocin per protocol Epidural in place Amniotomy at 0200 for clear fluid IUPC/FSE in place Hx 3 , 1 VAVD - 7#12 largest 36w6d growth US - EFW 76%, AC 91%,7#4 Contraception management 09/11/2022 023 Overview: - desires post-placental Mirena - consent signed Grand multiparity 09/11/2022 12/10/2022 Overview: - history 4 prior SVDs, this will be delivery #5 - admission CBC 11.9 Diet controlled gestational diabetes mellitus (GDM) in second trimester 07/05/2022 10/08/2022 Overview: Well controlled Fasting and postprandial BG wnl Will check BGs q2h in latent labor, q1hr in active labor Urinary tract infection affe cting care of mother in second trimester, antepartum 03/28/2022 10/08/2022 Overview: Presents with complaint of burning upon urination and still feeling the urge to pee after emptying bladder Urine dip +nitrates, +leukocytes Urine culture sent Macrobid 14 weeks gestation of 03/28/2022 09/11/2022 Vaginal bleeding in 03/11/2022 Overview: - SSE shows a closed cervix, 4 cc of dark blood, but there is no active bleeding noted - FHR is present and an appropriate rate at 170 visualized on ultrasound - RH +, Rhogham not indicated - Patient consouled on return precaution & signs/symptoms to monitor for - She will be calling her OB tomorrow to schedule a close outpatient follow up appointment & to schedule nuchal translucency ultrasound Abdominal pain affecting 03/11/2022 10/08/2022 Overview: - Currently reporting no pain at this time - Urine Dip does not show signs of infection - Likely musculoskeletal Preexisting hypertension complicating , antepartum 03/05/2022 10/08/2022 Obesity complicating , first trimester 03/05/2022 10/08/2022 History of group B Streptococcus (GBS) infection 03/05/2022 10/08/2022 Overview: Reports has previously tolerated penicillin Multigravida of advanced maternal age in first t rimester 03/05/2022 10/08/2022 Overview: -Low risk NIPT -Normal anatomy 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 , antepartum, unspecified trimester 03/05/2022 10/08/2022 Overview: Stable with valtrex suppression Negative sterile speculum on admission Vaginitis complicating current 022 12/10/2022 History of drug use 03/05/2022 10/08/2022 Overview: - denies recent use - since before last Gastritis due to Helicobacter species 11/26/2021 02/08/2022 Epigastric pain 10/30/2021 02/08/2022 Elevated blood pressure read ing without diagnosis of hypertension 10/30/2021 11/26/2021 Encounter for elective induction of labor 202008/18/2021 Overview: -GSB+, PCN allergy, Ancef in labor -Pitocin per protocol (halved x1) -amniotomy @1530 -epidural in -IUPC -FSE H/o 1 VAVD and SVDx2, most recent in 2010, largest 7lbs 9oz Growth US @ 36w5d, EFW 6lbs 9oz, 48% Negative NIPT History of MRSA infection 08/15/20212022 Overview: -patient reports history of multi-site staph skin infection, is unsure if MRSA or MSSA -will treat with vancomycin preoperatively if need for delivery Group B Streptococcus carrier, antepartum 202010/30/2021 Overview: Sensitive to Vanc headache in first trimester 02/09/2021 06/29/2021 Elderly multigravida in third trimester 01/13/20 21 10/30/2021 Overview: -negative NIPT 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 , antepartum, third trimester 01/12/2021 10/30/2021 Overview: -On Acyclovir since 36 weeks, compliant -SSE negative on admission -denies recent symptoms or outbreaks Nausea and vomiting of , antepartum 10/08/2022 Bipolar disorder, in partial remission, most recent episode mixed 10/04/2019 08/15/2021 Pure hypercholesterolemia 11/02/20182020 Tobacco use disorder 10/30/2018 12/12/2020 Abdominal wall mass 08/11/2018 09/03/2018 ADHD (attention deficit hype ractivity disorder), combined type 08/11/2018 08/15/2021 Depression, major, recurrent, moderate 8 08/15/2021 Anxiety 07/07/2018 08/15/2021 Methamphetamine abuse 07/07/2018 04/26/2021 Marijuana abuse 07/07/2018 04/26/2021 documented as of this encounter (statuses as of 01/18/2023) [facility] History of Past illness Narrative* Problem Noted Date Diagnosed Date Resolved Date Encounter for induction of labor 09/11/2022 10/08/2022 Overview: IOL GDMA1/CHTN/AMA GBS + PCN Pitocin per protocol Epidural in place Amniotomy at 0200 for clear fluid IUPC/FSE in place Hx 3 , 1 VAVD - 7#12 largest 36w6d growth US - EFW 76%, AC 91%,7#4 Contraception management 09/11/2022 Overview: - desires post-placental Mirena - consent signed Grand multiparity 09/11/2022 12/10/2022 Overview: - history 4 prior SVDs, this will be delivery #5 - admission CBC 11.9 Diet controlled gestational diabetes mellitus (GDM) in second trimester 07/05/2022 10/08/2022 Overview: Well controlled Fasting and postprandial BG wnl Will check BGs q2h in latent labor, q1hr in active labor Urinary tract infection affe cting care of mother in second trimester, antepartum 03/28/2022 0 10/08/2022 Overview: Presents with complaint of burning upon urination and still feeling the urge to pee after emptying bladder Urine dip +nitrates, +leukocytes Urine culture sent Macrobid 14 weeks gestation of 03/28/2022 09/11/2022 Vaginal bleeding in 03/11/2022 09/11/2022 Overview: - SSE shows a closed cervix, 4 cc of dark blood, but there is no active bleeding noted - FHR is present and an appropriate rate at 170 visualized on ultrasound - RH +, Rhogham not indicated - Patient consouled on return precaution & signs/symptoms to monitor for - She will be calling her OB tomorrow to schedule a close outpatient follow up appointment & to schedule nuchal translucency ultrasound Abdominal pain affecting 03/11/2022 10/08/2022 Overview: - Currently reporting no pain at this time - Urine Dip does not show signs of infection - Likely musculoskeletal Preexisting hypertension com plicating , antepartum 03/05/2022 10/08/2022 Obesity complicating pregnan cy, first trimester 03/05/2022 10/08/2022 History of group B Streptoco ccus (GBS) infection 03/05/2022 10/08/2022 Overview: Reports has previously tolerated penicillin Multigravida of advanced mat ernal age in first trimester 03/05/2022 10/08/2022 Overview: -Low risk NIPT -Normal anatomy 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 , antepartum, unspecified trimester 03/05/2022 10/08/2022 Overview: Stable with valtrex suppression Negative sterile speculum on admission Vaginitis complicating current 03/05/2022 12/10/2022 History of drug use 03/05/2022 10/08/19 Overview: - denies recent use - since before last Gastritis due to Helicobacter species 11/26/2021 02/08/2022 Epigastric pain 10/30/2021 02/08/2022 Elevated blood pressure read ing without diagnosis of hypertension 10/30/2021 11/26/2021 Encounter for elective induction of labor 08/15/2021 08/18/2021 Overview: -GSB+, PCN allergy, Ancef in labor -Pitocin per protocol (halved x1) -amniotomy @1530 -epidural in -IUPC -FSE H/o 1 VAVD and SVDx2, most recent in 2010, largest 7lbs 9oz Growth US @ 36w5d, EFW 6lbs 9oz, 48% Negative NIPT History of MRSA infection 08/15/2021 Overview: -patient reports history of multi-site staph skin infection, is unsure if MRSA or MSSA -will treat with vancomycin preoperatively if need for delivery Group B Streptococcus carrier, antepartum 07/26/2021 10/30/2021 Overview: Sensitive to Vanc headache in first trimester 02/09/2021 06/29/2021 Elderly multigravida in third trimester 01/12/2021 10/30/2021 Overview: -negative NIPT 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 , antepartum, third trimester 01/12/2021 0 10/30/2021 Overview: -On Acyclovir since 36 weeks, compliant -SSE negative on admission -denies recent symptoms or outbreaks Nausea and vomiting of , antepartum 1 10/08/2022 Bipolar disorder, in partial remission, most recent episode mixed 10/04/2019 08/15/2021 Pure hypercholesterolemia 11/02/2018 Tobacco use disorder 10/30/2018 021 Abdominal wall mass 08/11/2018 09/03/20 ADHD (attention deficit hype ractivity disorder), combined type 08/11/2018 08/15/2021 Depression, major, recurrent, moderate 07/07/2018 08/15/2021 Anxiety 07/07/2018 08/15/2021 Methamphetamine abuse 07/07/20182020 Marijuana abuse 07/07/2018 04/26/2021 documented as of this encounter (statuses as of 03/27/2023) [facility] Miscellaneous Notes* Quick Notes - Tricia Rangel MD - 09/04/2022 2:42 PM EST Good fm Labor precautions Gdma1- fsbg reviewed only 3 abnormal values Continue diet Weekly nst Reactive nst iol at 38 wga scheduled Hsv- valtrex suppression Gbs positive- abx in labor Chtn- no elevated bps noted, no meds [place]- less than 40 y/o no testing noted .Tricia Rangel MD [facility] Note* Radha Moore MA - 09/04/2022 2:22 PM EST Movement? Active baby Vaginal Bleeding: NO Vaginal fluid leakage of fluid: NO Contractions: Carlton-Mckinley type Edema: Negative Radha Moore MA documented in [facility]12[facility] Miscellaneous Notes* Quick Notes - Flora Browning MD - 08/30/2022 2:43 PM EST EFW 76%, darlyn 9, BPP 8/8 BS look good, 1 FBS of 98 IOL pm of 09/09 at 38 wks NST minor next wk Flora Browning MD, MD documented in this [facility]Main [facility]12[facility] Nurse Note* Radha Moore MA - 08/30/2022 2:36 PM EST Movement? Active baby Vaginal Bleeding: NO Vaginal fluid leakage of fluid: NO Contractions: Carlton-Mckinley type Edema: Trace Radha Moore MA documented in this [facility]Main [facility]12[facility] Miscellaneous Notes* Quick Notes - Flora Browning MD - 08/23/2022 2:31 PM EST 2 FBS of 98 but o/w nl NST R, US next wk Start valtrex 500mg BID for suppression now Medical Decision Making: Problems: Moderate: 2+ stable chronic illnesses Data: Unique test result(s) reviewed: 3+ Unique test(s) ordered: 1 Risk: Moderate: Moderate risk from testing/treatment Medical Decision Making Level: 4 - Moderate Flora Browning MD, documented in this [facility]Main [facility]12[facility]22 Nurse Note* Marielena Vidales MA - 08/23/2022 2:15 PM EST Movement? Active baby Vaginal Bleeding: NO Vaginal fluid leakage of fluid: NO Contractions: no contractions Edema: Negative Marielena Vidales MA documented in this encounterMain [facility]12[facility]22 Miscellaneous Notes* Telephone Encounter - Flora Browning MD - 08/16/2022 11:05 AM EST Due to it's addictive potential, I do not prescribe this med during preg. * Telephone Encounter - Carmen Sanderson RN - 08/16/2022 11:02 AM EST Patient called in requesting the following medication refill. TO NURSE: Please review and Pend order to provider. Refill Requested: [facility] (MUST VERIFY): UTD Last Office Visit: 08/15/2022 Next Office Visit/Provider: 08/23/2022 Carmen Sanderson RN 08/16/2022 11:02 AM Appointments for Next 60 Days Date Time Provider Location Dept Phone 08/23/2022 2:00 PM NST PRACTICE DIRECTOR AG [facility] [phone] 08/23/2022 2:30 PM FLORA BROWNING [facility] [phone] 08/30/2022 2:15 PM ULTRASOUND PRACTICE DIRECTOR AG [facility] [phone] 08/30/2022 3:30 PM FLORA BROWNING [facility] [phone] 09/04/2022 2:00 PM NST PRACTICE DIRECTOR AG [facility] [phone] 09/04/2022 2:30 PM TRICIA RANGEL [facility] [phone] 10/08/2022 11:00 AM SHAUN CARLIN AG [address] [phone] documented in this encounterMain [facility]12[facility]22 Miscellaneous Notes* Quick Notes - Flora Browning MD - 08/15/2022 3:00 PM EST BS p BF and lunch creeping up, reviewed approp meals and fu next wk, ngozi since this time covered aneating holiday NST R, repeat next wk Flora Browning MD, MD documented in this encounterMain [facility] Center11-22-2022 Miscellaneous Notes* Addendum Note - Yael Mahmood APRN.CNM - 08/06/2022 1:46 PM ESTAddended by: YAEL MAHMOOD on: 08/06/2022 01:46 PM Modules accepted: Orders * Quick Notes - Yael Mahmood APRN.CNM - 08/06/2022 1:18 PM EST Doing well. Denies LOF, bleeding or cramping Having male- not sure if she wants him circumcised Concerned hernia is bothering her this - consult to general surgery after delivery- planning on another child Good movement Discussed baby friendly Plans to breast feed Yael Hammond APRN.CNM documented in this encounterMain [facility]11-22-[facility]22 Instructions* Patient Instructions* Yael Mahmood APRN.CNM - 08/06/2022 1:20 PM EST is the Best Feeding Your Baby's stomach size is perfectly matched to your milk supply - Day 1 (size of a silva, 5-7 ml) - Day 3 (size of a walnut, 22-27 ml) - Day 10 (size of a large egg, 80-100 ml) 2. Proper latch and positioning are important to - Mother and baby should be comfortable while - tugging is normal, but should not hurt - Ensures baby gets enough milk - Ensures mom has enough milk for the baby - Good latch prevents nipple soreness - Don't be afraid to ask for help 3. Ensuring the best start to for you and your baby - Ask staff how hand expression can improve ease of and getting baby to latch - Giving baby formula can interfere with milk supply and successfully learning to breastfeed - Water should not be given to babies at any time - Formula can increase your baby's risk for illness - babies eat often because breast milk is digestible and delicious - Wait 3-4 weeks until introducing a pacifier or bottle 4. is a gift of a lifetime that only mom can give - Talk to your information systems consultant, nurse, and/or doctor while at the hospital about - Ask about local support groups and resources that you can use if you have questions after you go home Please call the office before going to the hospital. If you are , go to the ER at the [facility] main [facility]. Do not go to the outlying ER s ([place], [place] or [place]). If you need to go to an ER and cannot or will not go downtown, please use one of [facility] s ERs (not [facility], [place] or [facility]). documented in this [facility]11-22-2022 Nurse Note* Radha Moore MA - 08/06/2022 1:04 PM EST Movement? Active baby Vaginal Bleeding: NO Vaginal fluid leakage of fluid: NO Contractions: no contractions Edema: Negative Radha Moore MA documented in this [facility]11-18-2022 Miscellaneous Notes* Quick Notes - Flora Browning MD - 08/02/2022 1:53 PM EST NST R, repeat next wk FBS now nl after changing her p dinner snack Test rx rewritten to reflex qID testing US in 2 wks Flora Browning MD, documented in this [facility]11-18-2022 Nurse Note* Radha Moore MA - 08/02/2022 1:25 PM EST Movement? Active baby Vaginal Bleeding: NO Vaginal fluid leakage of fluid: NO Contractions: Carlton-Mckinley type Edema: Trace Radha Moore MA documented in this [facility]11-04-2022 Instructions* Patient Instructions* Honey Angel PA-C - 07/19/2022 11:46 AM EDT Please call the office before going to the hospital. If you are , go to the ER at the hospital main campus. Do not go to the outlying ER s ([place] or [place]). If you need to go to an ER and cannot or will not go downtown, please use one of [facility] s ERs (not [place], [place] or [place]). COUNTING YOUR BABY'S MOVEMENTS Your Baby's regular movements are a sign of good health. Though babies may sleep for up to an hour,most of the time your baby is active and moving. On average, a healthy baby kicks or moves at least10 times within a two-hour period. An easy way to check the health of your baby is to keep track of your baby's movements once a day (we call it kick counts). We think it is best to begin kick counts at 28 weeks of and continue once a day until your baby's . Please follow the directions below and record your baby's movements every day. Bring this Kick Count Record with you to all of your visits. How to count and record your baby's movements: Pick a time once a day to record your baby's movements. Your baby may be most active when you are at rest. Many women find after a meal to be the best time to record their baby's movements. Sit in a comfortable position and place your hands, palms down, on your baby. When you are ready to begin counting, look at the time. John the start time on the Kick Count Record. Count each time you feel your baby kick, move, roll, flutter, or swish. Continue counting until your baby has moved ten times. John the end time on the Kick Count Record. How many minutes did it take your baby to move ten times? Record this number in the box. If you do not count ten movements in two hours or less, call your health care provider right away for further instructions Day Date Day Date Day Date Start Start Start End End End Minutes to reach 10 kicks Minutes to reach 10 kicks Minutes to reach 10 kicks True Vs. False Labor Before true labor begins, you might have false labor pains, also known as Octavio Mckinley contractions. These irregular uterine contractions are perfectly normal and might start to occur from your fourth month of . They are your body s way of getting ready for the real thing. What do Carlton Mckinley contractions feel like? Carlton Mckinley contractions can be described as tightening in the abdomen that comes and goes. Thesecontractions do not get closer together, do not increase in how long they last or how often they occur, and do not feel stronger over time. They often come with a change of position and stop with rest. What do true labor contractions feel like? The way a contraction feels is different for each woman and might feel different from one pregnancyto the next. Labor contractions cause discomfort or a dull ache in your back and lower abdomen, along with pressure in the pelvis. Some women might also feel pain in their sides and thighs. Some women describe contractions as strong menstrual cramps, while others describe them as strong waves that feel like diarrhea cramps. So how do you know when your contractions are the real thing? Timing of contractions: False labor -- contractions are often irregular and do not get closer together. True labor -- contractions come at regular intervals and get closer together as time goes on. (Contractions last about 30 to 70 seconds.) Change with movement: False labor -- Contractions might stop when you walk or rest, or might even stop when you change position. True labor -- Contractions continue, despite moving or changing positions. I sometimes have pain on the side of my stomach Sharp, shooting pains on either side of your abdomen that travel into the groin might result from stretching ligaments that support your growing uterus. To ease your discomforts of false labor pains: Try changing your position or activity. Make sure you are drinking enough fluids (at least 10 to 12 glasses of water, juice, or milk per day). Try to rest and relax. I am afraid to keep bothering my health care provider with false alarms. When should I call my health care provider? Your health care provider is available any time to answer your questions and ease your concerns about whether or not your contractions are signs of true or false labor. Don t be afraid to call your health care provider if you are not sure what it is you are feeling. He or she might ask you some questions to help determine if you are truly in labor. If there s any question at all, it s better to be evaluated by your health care provider. It is essential to call your health care provider at any time if you have: Bright red vaginal bleeding Continuous leaking of fluid or wetness, or if your water breaks (can be felt as a gushing of fluid) Strong contractions every five minutes for one hour Contractions that you are unable to walk through A noticeable change in your baby s movement, or if you feel fewer than six to 10 movements in one hour. References [employer]. False Labor Accessed 11/23/2015. [employer]. Contractions Accessed 11/23/2015. Copyright [id number] [facility]. All rights reserved This information is provided by the [facility] and is not intended to replace the medical advice of your doctor or health care provider. Please consult your health care provider for advice about a specific medical condition. For additional health information, please contact the Center for Consumer Health Information at the [facility] or toll-free extension [phone]. If you prefer, you may visit [email or web address] or [email or web address]. This document was last reviewed on: 2015 index#5100 is the Best Feeding Your Baby's stomach size is perfectly matched to your milk supply - Day 1 (size of a silva, 5-7 ml) - Day 3 (size of a walnut, 22-27 ml) - Day 10 (size of a large egg, 80-100 ml) 2. Proper latch and positioning are important to - Mother and baby should be comfortable while - tugging is normal, but should not hurt - Ensures baby gets enough milk - Ensures mom has enough milk for the baby - Good latch prevents nipple soreness - Don't be afraid to ask for help 3. Ensuring the best start to for you and your baby - Ask staff how hand expression can improve ease of and getting baby to latch - Giving baby formula can interfere with milk supply and successfully learning to breastfeed - Water should not be given to babies at any time - Formula can increase your baby's risk for illness - babies eat often because breast milk is digestible and delicious - Wait 3-4 weeks until introducing a pacifier or bottle 4. is a gift of a lifetime that only mom can give - Talk to your information systems consultant, nurse, and/or doctor while at the hospital about - Ask about local support groups and resources that you can use if you have questions after you go home documented in this [facility]11-04-2022 Miscellaneous Notes* Quick Notes - Honey Angel PA-C - 07/19/2022 11:25 AM EDT + FM. No leaking/bleeding/contractions. Reviewed initial and third trimester labs. Tdap given 07/05/22. Planning . GUERO and PTL precautions discussed. Hx HSV: plan suppression 36weeks AMA, obesity, CHTN: Normotensive today. Plan for q4week growth US and weekly NST's at 32 weeks. GDM: Fasting values consistently >100. Almost every PP values within goal, some values in 140's.Reviewed healthy diet and exercise. Following with diabetic counselor. Will consult MFM. Growth US today: The patient presents for evaluation of growth in the setting of Gestational diabetes mellitus, class A1. 1. Single, live, intrauterine in a vertex presentation. 2. Adequate interval growth. EFW= 1,804g, 4lbs 0oz. (64%) 3. Amniotic fluid is normal amount. DARLYN = 7.9cm 4. The placenta is posterior without evidence of a previa. 5. Normal limited anatomy as detailed below. 6. BPP is 8/8. RTC 2 weeks, NST Honey Angel PA-C documented in this [facility]11-04-2022 Nurse Note* Eliz Friedman MA - 07/19/2022 11:17 AM EDT Movement? Active baby Vaginal Bleeding: NO Vaginal fluid leakage of fluid: NO Contractions: no contractions Edema: Negative Eliz Friedman MA documented in this [facility]10-21-2022 Instructions* Patient Instructions* Honey Angel PA-C - 07/05/2022 11:02 AM EDT Please call the office before going to the hospital. If you are , go to the ER at the [facility]. Do not go to the outlying ER s ([place], [place] or [place]). If you need to go to an ER and cannot or will not go downtown, please use one of [place] [facility] s ERs (not [facility], [place] or [facility]). COUNTING YOUR BABY'S MOVEMENTS Your Baby's regular movements are a sign of good health. Though babies may sleep for up to an hour,most of the time your baby is active and moving. On average, a healthy baby kicks or moves at least10 times within a two-hour period. An easy way to check the health of your baby is to keep track of your baby's movements once a day (we call it kick counts). We think it is best to begin kick counts at 28 weeks of and continue once a day until your baby's . Please follow the directions below and record your baby's movements every day. Bring this Kick Count Record with you to all of your visits. How to count and record your baby's movements: Pick a time once a day to record your baby's movements. Your baby may be most active when you are at rest. Many women find after a meal to be the best time to record their baby's movements. Sit in a comfortable position and place your hands, palms down, on your baby. When you are ready to begin counting, look at the time. John the start time on the Kick Count Record. Count each time you feel your baby kick, move, roll, flutter, or swish. Continue counting until your baby has moved ten times. John the end time on the Kick Count Record. How many minutes did it take your baby to move ten times? Record this number in the box. If you do not count ten movements in two hours or less, call your health care provider right away for further instructions Day Date Day Date Day Date Start Start Start End End End Minutes to reach 10 kicks Minutes to reach 10 kicks Minutes to reach 10 kicks True Vs. False Labor Before true labor begins, you might have false labor pains, also known as Carlton Mckinley contractions. These irregular uterine contractions are perfectly normal and might start to occur from your fourth month of . They are your body s way of getting ready for the real thing. What do Octavio Mckinley contractions feel like? Octavio Mckinley contractions can be described as tightening in the abdomen that comes and goes. Thesecontractions do not get closer together, do not increase in how long they last or how often they occur, and do not feel stronger over time. They often come with a change of position and stop with rest. What do true labor contractions feel like? The way a contraction feels is different for each woman and might feel different from one pregnancyto the next. Labor contractions cause discomfort or a dull ache in your back and lower abdomen, along with pressure in the pelvis. Some women might also feel pain in their sides and thighs. Some women describe contractions as strong menstrual cramps, while others describe them as strong waves that feel like diarrhea cramps. So how do you know when your contractions are the real thing? Timing of contractions: False labor -- contractions are often irregular and do not get closer together. True labor -- contractions come at regular intervals and get closer together as time goes on. (Contractions last about 30 to 70 seconds.) Change with movement: False labor -- Contractions might stop when you walk or rest, or might even stop when you change position. True labor -- Contractions continue, despite moving or changing positions. I sometimes have pain on the side of my stomach Sharp, shooting pains on either side of your abdomen that travel into the groin might result from stretching ligaments that support your growing uterus. To ease your discomforts of false labor pains: Try changing your position or activity. Make sure you are drinking enough fluids (at least 10 to 12 glasses of water, juice, or milk per day). Try to rest and relax. I am afraid to keep bothering my health care provider with false alarms. When should I call my health care provider? Your health care provider is available any time to answer your questions and ease your concerns about whether or not your contractions are signs of true or false labor. Don t be afraid to call your health care provider if you are not sure what it is you are feeling. He or she might ask you some questions to help determine if you are truly in labor. If there s any question at all, it s better to be evaluated by your health care provider. It is essential to call your health care provider at any time if you have: Bright red vaginal bleeding Continuous leaking of fluid or wetness, or if your water breaks (can be felt as a gushing of fluid) Strong contractions every five minutes for one hour Contractions that you are unable to walk through A noticeable change in your baby s movement, or if you feel fewer than six to 10 movements in one hour. References [employer]. False Labor Accessed 11/23/2015. [employer]. Contractions Accessed 11/23/2015. Copyright [id number] [facility]. All rights reserved This information is provided by the [facility] and is not intended to replace the medical advice of your doctor or health care provider. Please consult your health care provider for advice about a specific medical condition. For additional health information, please contact the Center for [employer] Health Information at the [facility] or toll-free extension [phone]. If you prefer, you may visit [email or web address] or [email or web address]. This document was last reviewed on: 2015 index#6581 is the Best Feeding Your Baby's stomach size is perfectly matched to your milk supply - Day 1 (size of a silva, 5-7 ml) - Day 3 (size of a walnut, 22-27 ml) - Day 10 (size of a large egg, 80-100 ml) 2. Proper latch and positioning are important to - Mother and baby should be comfortable while - tugging is normal, but should not hurt - Ensures baby gets enough milk - Ensures mom has enough milk for the baby - Good latch prevents nipple soreness - Don't be afraid to ask for help 3. Ensuring the best start to for you and your baby - Ask staff how hand expression can improve ease of and getting baby to latch - Giving baby formula can interfere with milk supply and successfully learning to breastfeed - Water should not be given to babies at any time - Formula can increase your baby's risk for illness - babies eat often because breast milk is digestible and delicious - Wait 3-4 weeks until introducing a pacifier or bottle 4. is a gift of a lifetime that only mom can give - Talk to your information systems consultant, nurse, and/or doctor while at the hospital about - Ask about local support groups and resources that you can use if you have questions after you go home Type of Remedy: Constipation Safe Medications to Take During Methylcellulose fiber (Citrucel ) Docusate (Colace ) psyllium (Fiberall , Metamucil ) polycarbophil (FiberCon ) polyethylene glycol (MiraLAX )* *Occasional use only [facility] Miscellaneous Notes* Quick Notes - Honey Angel PA-C - 07/05/2022 10:52 AM EDT + FM. No leaking/bleeding/contractions. Reviewed initial labs. Reviewed 3rd trimester labs. Failed 3h GTT giving diagnosis of GDM. Tdap given today. GUERO and PTL precautions discussed. GDM: Failed 3hGTT. Started tracking home BS a few days ago with fasting values 94-100, PP 100-140 (prior to starting diet/exercise). Had diabetes education this morning, states she learned A LOT and starting diet plan today. Following up with educator on Friday. Reviewed home blood sugar goals offasting <95 and 2hPP <120. Start Q4 week growth US, ordered. AMA, Obesity, CHTN: Normotensive. No CP, SOB, RUQ pain, Plan for Q4week growth US and weekly NST at32 weeks. HSV: plan suppression at 36 weeks Rtc 2 weeks, growth US Honey Angel PA-C [facility] Nurse Note* Marielena Vidales MA - 07/05/2022 10:26 AM EDT Movement? Active baby Vaginal Bleeding: NO Vaginal fluid leakage of fluid: NO Contractions: no contractions Edema: Trace Marielena Vidales MA [facility] in this [facility] History of Present illness Narrative* Christina Barlow RN - 07/05/2022 9:32 AM EDT DIABETES SELF-MANAGEMENT EDUCATION AND SUPPORT Location: [place] Type of visit: Virtual (with video) individual - patient consented to virtual Types of DSMES: Initial/Comprehensive (add to or update ADA spreadsheet) PATIENT'S MAIN CONCERN TODAY: impact on baby and what to eat Support person present for education today: none Cognitive ability: Alert and oriented Motivation to learn: Interested Learning barriers identified by educator: none Method of instruction: written and verbal INTERVENTIONS/TOPICS COVERED: -Diabetes Pathophysiology: diabetes disease process, role of insulin in the body, role of glucose in the body, insulin resistance, relationship of glucose and insulin in the body, Type 2 diabetes risk factors, gestational diabetes basics, and symptoms of diabetes -Monitoring: BG targets, rationale for HGM, using a home glucose monitor, logging, testing frequency, and sharps disposal -Physical Activity: benefits of exercise, impact of exercise on BG, and types of exercise -Acute Complications: hypoglycemia s/sx/tx and hyperglycemia s/sx/tx -Chronic Complications: risks to mom and baby with elevated blood sugars during DIABETES ASSESSMENT: Referring Physician: Honey Angel Previous Diabetes Education? No What are you hoping to gain from this visit? Better understanding In your words, what is diabetes? High blood sugars What concerns you about having diabetes? Impact on baby and type 2 in the future Diabetes History: Type of Diabetes: Gestational ( diabetes in ) What year were you diagnosed? 2021 Does anyone in your family have diabetes? yes grandmother How do you learn best? 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 never How often does someone help you read your pill bottles? never How often does someone have to help you take care of your diabetes? never Major stressors:none How do you manage stress? Watch tv and pray Do any of the following things get in the way of managing your diabetes? Nothing gets in the way ofDM management Health History: Most recent eye exam: Asked/not answered Most recent dental exam:Asked/not answered Most recent foot exam:Asked/not answered How often do you inspect your feet at home? Asked/Not answered Do you use tobacco? No Do you use alcohol? No In the past 12 months have you had any: Hospital Admissions: of son ER Visits: Yes, Number of Times? 2 Primary Care Visits: Yes, Number of Times? 1 What are your general feelings about you overall health? Good Medical Issues/Complications: see below PAST MEDICAL HISTORY Diagnosis Date Abnormal Pap smear of cervix 2019 ASCUS neg HPV ADHD (attention deficit hyperactivity disorder), combined type 08/11/2018 Anemia Anxiety 07/07/2018 Bipolar disorder, in partial remission, most recent episode mixed (HCC) 10/04/2019 Depression, major, recurrent, moderate (HCC) 07/07/2018 Diet controlled gestational diabetes mellitus (GDM) in second trimester 07/05/2022 Drug use disorder remission since 06/2019; methamphetamines, marijuana Gastritis due to Helicobacter species 11/26/2021 Group B Streptococcus carrier, antepartum 07/26/2021 Sensitive to Vanc Herpes simplex virus (HSV) infection 2008 Hypertension, essential 11/26/2021 Migraine without aura and without status migrainosus, not intractable 07/07/2018 MRSA infection 08/15/2021 -patient reports history of multi-site staph skin infection, is unsure if MRSA or MSSA -will treat with vancomycin preoperatively if need for delivery OAB (overactive bladder) PUD (peptic ulcer disease) 11/26/2021 Urinary tract infection in , antepartum, second trimester 03/28/2022 Most recent A1C Lab Results Component Value Date HBA1C 5.7 10/30/2021 HBA1C 5.8 04/27/2020 Physical Activity: Do you do a regular exercise? No Sick Days: How do you manage your diabetes when you are sick? Call my doctor Sleep: Do you get at least 7 hrs of sleep most nights? yes Current Outpatient Medications Medication Sig acetaminophen 325 mg-caffeine 40 mg-butalbital 50 mg (FIORICET) per tablet TAKE 1 TABLET BY MOUTH EVERY 6 HOURS NEEDED Blood-Glucose Meter 1 Each twice daily. Lancets lancets Use as instructed alcohol swabs Apply 1 application to affected area twice daily. blood sugar diagnostic (BLOOD GLUCOSE TEST) test strip Use as instructed ondansetron (ZOFRAN) 8 mg tablet TAKE 1 TABLET BY MOUTH EVERY 8 HOURS NEEDED FOR NAUSEA AND VOMITING polyethylene glycol 3350 (MIRALAX, GLYCOLAX) 17 gram/dose powder Take 17 g by mouth once daily. Dissolve dose in 4 - 8 ounces of liquid and take as directed. famotidine (PEPCID) 20 mg tablet Take 1 tablet by mouth twice daily. Wo[place]ungo-Uq-Dxi-Fe-FA tab Take 1 tablet by mouth once daily. hydrocortisone (ANUSOL-HC) 2.5 % rectal cream by RECTAL route twice daily. clotrimazole (LOTRIMIN, CLOTRIM) 1 % cream APPLY TO AFFECTED AREA TWICE A DAY No current facility-administered medications for this visit. Medications for Diabetes: Name of Medication Dose When taken How often missed Meter and supplies Injections Technique: Do you take insulin or a medication you inject for your diabetes? No Blood Sugar Monitoring: Do you have a blood sugar monitor? Yes; What kind of meter is it? True metrix How often do you check? 4 times daily When you check? Before breakfast and 2 hours after meals. Do you log your blood sugars? Yes. Where do you throw away your lancets? Sharps container Management of Low Blood Sugar: What has been your lowest blood sugar in the last month? No lows What are your symptoms of lows?has not felt low How do you treat lows? Reviewed low tx Do you drive? yes Management of High Blood Sugar: What has been you highest blood sugar in the last month? 145 What are your symptoms of highs? Frequent urination How do you treat your highs? Reviewed tx for highs Meal Planning: Are you currently following any meal plan? None Who does the cooking in your house? Spouse Who does the grocery shopping? Self How often do you eat out? 2-3x/week How many meals do you eat per day? Three Which meals do you tend to skip? None Beverages: juice Reproductive Status (Females): Have you reached menopause? No. Are you currently ? yes Due date is 09/21/22 EDUCATION HANDOUTS: Healthy You: Diabetes and LEARNING RESPONSE: Diabetes pathophysiology: Demonstrated understanding/competency today or at previous visit Healthy eating: Demonstrated understanding/competency today or at previous visit Being active: Demonstrated understanding/competency today or at previous visit Taking medications: Demonstrated understanding/competency today or at previous visit Monitoring glucose: Demonstrated understanding/competency today or at previous visit Acute complications: Demonstrated understanding/competency today or at previous visit Chronic complications: Demonstrated understanding/competency today or at previous visit Healthy coping: Demonstrated understanding/competency today or at previous visit Diabetes distress and support: Demonstrated understanding/competency today or at previous visit PATIENT SELECTED THE FOLLOWING GOALS: -Activity goal: exercise more 2: I might be ready to make a plan POSSIBLE FUTURE TOPICS: 1. The following topics were not assessed due to time limitations, but should be assessed at the next visit: all areas were assessed today or within the last 12 months. 2. The following topics should be taught or reinforced at the next visit: NA. DIABETES EDUCATION PLAN: Education completed and annual diabetes education follow-up visit recommended Time Spent (Minutes): 30 This visit note will be communicated to the healthcare provider via access to shared medical record. SIGNATURE: Christina Barlow RN PATIENT NAME: Sia Olivera DATE: July 05, 2022 TIME: 9:32 AM PAGER: [id number] documented in this [facility] History of Present illness Narrative* Christina Ruiz RD - 07/05/2022 8:04 AM EDT DIABETES SELF-MANAGEMENT EDUCATION AND SUPPORT Location: [place] Type of visit: Virtual (with video) individual - patient consented to virtual Types of DSMES: Initial/Comprehensive (add to or update ADA spreadsheet) PATIENT'S MAIN CONCERN TODAY: baby Support person present for education today: none Cognitive ability: Alert and oriented Motivation to learn: Interested Learning barriers identified by educator: none Method of instruction: written, verbal, and demonstration INTERVENTIONS/TOPICS COVERED: -Diabetes Pathophysiology: insulin resistance and hepatic glucose release -Healthy Eating: impact of carbs on BG, basic carb counting, foods with carbs, portion sizes, fiber, reading food labels, recommendation for 45/15 g carb per meal/snack, eating out, and carb countingtools (books, Internet, smartphone apps) DIABETES ASSESSMENT: Referring Physician: Honey Angel Previous Diabetes Education? No What are you hoping to gain from this visit? help In your words, what is diabetes? asked/not answered What concerns you about having diabetes? baby Diabetes History: Type of Diabetes: Gestational ( diabetes in ) What year were you diagnosed? 2021 Does anyone in your family have diabetes? yes How do you learn best? listening, observing , reading, and doing Demographics: See RN CDE note of same date Support System: See RN CDE note of same date Health History: See RN CDE note of same date PAST MEDICAL HISTORY Diagnosis Date Abnormal Pap smear of cervix 2019 ASCUS neg HPV ADHD (attention deficit hyperactivity disorder), combined type 08/11/2018 Anemia Anxiety 07/07/2018 Bipolar disorder, in partial remission, most recent episode mixed (HCC) 10/04/2019 Depression, major, recurrent, moderate (HCC) 07/07/2018 Drug use disorder remission since 06/2019; methamphetamines, marijuana Gastritis due to Helicobacter species 11/26/2021 Group B Streptococcus carrier, antepartum 07/26/2021 Sensitive to Vanc Herpes simplex virus (HSV) infection 2009 Hypertension, essential 11/26/2021 Migraine without aura and without status migrainosus, not intractable 07/07/2018 MRSA infection 08/15/2021 -patient reports history of multi-site staph skin infection, is unsure if MRSA or MSSA -will treat with vancomycin preoperatively if need for delivery OAB (overactive bladder) PUD (peptic ulcer disease) 11/26/2021 Urinary tract infection in , antepartum, second trimester 03/28/2022 Most recent A1C Lab Results Component Value Date HBA1C 5.7 10/30/2021 HBA1C 5.8 04/27/2020 Physical Activity: Do you do a regular exercise? No Sick Days: How do you manage your diabetes when you are sick? Call my doctor Sleep: Do you get at least 7 hrs of sleep most nights? yes Current Outpatient Medications Medication Sig acetaminophen 325 mg-caffeine 40 mg-butalbital 50 mg (FIORICET) per tablet TAKE 1 TABLET BY MOUTH EVERY 6 HOURS NEEDED Blood-Glucose Meter 1 Each twice daily. Lancets lancets Use as instructed alcohol swabs Apply 1 application to affected area twice daily. blood sugar diagnostic (BLOOD GLUCOSE TEST) test strip Use as instructed ondansetron (ZOFRAN) 8 mg tablet TAKE 1 TABLET BY MOUTH EVERY 8 HOURS NEEDED FOR NAUSEA AND VOMITING polyethylene glycol 3350 (MIRALAX, GLYCOLAX) 17 gram/dose powder Take 17 g by mouth once daily. Dissolve dose in 4 - 8 ounces of liquid and take as directed. famotidine (PEPCID) 20 mg tablet Take 1 tablet by mouth twice daily. Jaebvcxj-Tr-Ltu-Fe-FA tab Take 1 tablet by mouth once daily. hydrocortisone (ANUSOL-HC) 2.5 % rectal cream by RECTAL route twice daily. clotrimazole (LOTRIMIN, CLOTRIM) 1 % cream APPLY TO AFFECTED AREA TWICE A DAY No current facility-administered medications for this visit. Medications for Diabetes: Name of Medication Dose When taken How often missed none Injections Technique: Do you take insulin or a medication you inject for your diabetes? No Blood Sugar Monitoring: Do you have a blood sugar monitor? Yes; See RN CDE note of same date Fasting and pc breakfast poorly controlled Meal Planning: Are you currently following any meal plan? None Who does the cooking in your house? Self and Spouse Who does the grocery shopping? Self and Spouse How often do you eat out? 2-3x/mos How many meals do you eat per day? Three now Which meals do you tend to skip? Breakfast Beverages: water, juice, sugary drinks, milk abbey, and red bull, gatorade sprite.gingerale Diet History: Breakfast - bagel red bull Snack - Lunch - ramen/ sand/ veggie burger tots sprite Snack - Dinner - full meal abbey milk/gatorade Snack - fruit Sprite and gngerale help settle stomach Reproductive Status (Females): Have you reached menopause? No. Are you currently ? yes EDUCATION HANDOUTS: Gestational Diabetes Program booklet LEARNING RESPONSE: Diabetes pathophysiology: Demonstrated understanding/competency today or at previous visit Healthy eating: Demonstrated understanding/competency today or at previous visit PATIENT SELECTED THE FOLLOWING GOALS: -Healthy eating goal: follow a meal plan 3: I have a plan to start POSSIBLE FUTURE TOPICS: 1. The following topics were not assessed due to time limitations, but should be assessed at the next visit: all areas were assessed today or within the last 12 months. 2. The following topics should be taught or reinforced at the next visit: healthy eating and post partnum. DIABETES EDUCATION PLAN: Individual follow-up send in glucoses on friday Time Spent (Minutes): 45 This visit note will be communicated to the healthcare provider via access to shared medical record. SIGNATURE: Christina Ruiz MS RD [facility] PATIENT NAME: Sia Olivera DATE: July 05, 2022 TIME: 8:04 AM PAGER: documented in this encounterMain [facility]22 Miscellaneous Notes* Telephone Encounter - Celina Subramanian RN - 06/28/2022 3:41 PM EDT Aware of results and recommendations from Honey. Will cone picker the equipment and keep a log of her bgt's. Diabetic edu sent the consult. Celina Subramanian RN Patient has unfortunately failed her 3 hour glucose tolerance test, giving the diagnosis of gestational diabetes. I am sending a glucometer, glucose test strips, and lancets to her pharmacy. I am also placing a nutrition consultation for her to see if we can control this with diet only (no medications). She can cone picker her supplies at her local pharmacy. I would like her to record 4 BG values per day and bring them with her to her next visit. The first one every day should be fasting (no food for 8 hours), typically in the morning. The goalfor this is less than 95. The other 3 should be taken 2 hours from the first bite of every meal. The goal for these should beless than 120. If her numbers are higher than this I would also like her to log what she has eaten and this way we can track what works well for (dietarily), and what doesn't. If there is a particular day when that 2 hour john is difficult, she can check it at 1 hour and the goal is less than 140. If it appears that diet cannot control her blood sugars (which is sometimes the case in ),we can discuss medications at that time. Typically we prefer insulin, but oral medications may sometimes be substituted based on patient requirements. documented in this encounterMain [facility] Center10-11-2022 Miscellaneous Notes* Telephone Encounter - Celina Subramanian RN - 06/25/2022 4:23 PM EDT Aware of results and will get the 3 hr done on Friday. Aware to fast for 8 hr and to take a snack for after the test. Celina Subramanian RN 1hr GTT:153 documented in this encounterMain Campus [facility] Center10-07-2022 Instructions* Patient Instructions* Honey Angel PA-C - 06/21/2022 1:30 PM EDT Please call the office before going to the hospital. If you are , go to the ER at the [facility] main [facility]. Do not go to the outlying ER s ([facility] or [facility]). If you need to go to an ER and cannot or will not go downtown, please use one of [facility] s ERs (not [facility], [place] or [facility]). COUNTING YOUR BABY'S MOVEMENTS Your Baby's regular movements are a sign of good health. Though babies may sleep for up to an hour,most of the time your baby is active and moving. On average, a healthy baby kicks or moves at least10 times within a two-hour period. An easy way to check the health of your baby is to keep track of your baby's movements once a day (we call it kick counts). We think it is best to begin kick counts at 28 weeks of and continue once a day until your baby's . Please follow the directions below and record your baby's movements every day. Bring this Kick Count Record with you to all of your visits. How to count and record your baby's movements: Pick a time once a day to record your baby's movements. Your baby may be most active when you are at rest. Many women find after a meal to be the best time to record their baby's movements. Sit in a comfortable position and place your hands, palms down, on your baby. When you are ready to begin counting, look at the time. John the start time on the Kick Count Record. Count each time you feel your baby kick, move, roll, flutter, or swish. Continue counting until your baby has moved ten times. John the end time on the Kick Count Record. How many minutes did it take your baby to move ten times? Record this number in the box. If you do not count ten movements in two hours or less, call your health care provider right away for further instructions Day Day Day Start Start Start End End End Minutes to reach 10 kicks Minutes to reach 10 kicks Minutes to reach 10 kicks True Vs. False Labor Before true labor begins, you might have false labor pains, also known as Carlton Mckinley contractions. These irregular uterine contractions are perfectly normal and might start to occur from your fourth month of . They are your body s way of getting ready for the real thing. What do Carlton Mckinley contractions feel like? Carlton Mckinley contractions can be described as tightening in the abdomen that comes and goes. Thesecontractions do not get closer together, do not increase in how long they last or how often they occur, and do not feel stronger over time. They often come with a change of position and stop with rest. What do true labor contractions feel like? The way a contraction feels is different for each woman and might feel different from one pregnancyto the next. Labor contractions cause discomfort or a dull ache in your back and lower abdomen, along with pressure in the pelvis. Some women might also feel pain in their sides and thighs. Some women describe contractions as strong menstrual cramps, while others describe them as strong waves that feel like diarrhea cramps. So how do you know when your contractions are the real thing? Timing of contractions: False labor -- contractions are often irregular and do not get closer together. True labor -- contractions come at regular intervals and get closer together as time goes on. (Contractions last about 30 to 70 seconds.) Change with movement: False labor -- Contractions might stop when you walk or rest, or might even stop when you change position. True labor -- Contractions continue, despite moving or changing positions. I sometimes have pain on the side of my stomach Sharp, shooting pains on either side of your abdomen that travel into the groin might result from stretching ligaments that support your growing uterus. To ease your discomforts of false labor pains: Try changing your position or activity. Make sure you are drinking enough fluids (at least 10 to 12 glasses of water, juice, or milk per day). Try to rest and relax. I am afraid to keep bothering my health care provider with false alarms. When should I call my health care provider? Your health care provider is available any time to answer your questions and ease your concerns about whether or not your contractions are signs of true or false labor. Don t be afraid to call your health care provider if you are not sure what it is you are feeling. He or she might ask you some questions to help determine if you are truly in labor. If there s any question at all, it s better to be evaluated by your health care provider. It is essential to call your health care provider at any time if you have: Bright red vaginal bleeding Continuous leaking of fluid or wetness, or if your water breaks (can be felt as a gushing of fluid) Strong contractions every five minutes for one hour Contractions that you are unable to walk through A noticeable change in your baby s movement, or if you feel fewer than six to 10 movements in one hour. References [employer]. False Labor Accessed 11/23/2015. [employer]. Contractions Accessed 11/23/2015. Copyright 4419-8269 [facility]. All rights reserved This information is provided by the [facility] and is not intended to replace the medical advice of your doctor or health care provider. Please consult your health care provider for advice about a specific medical condition. For additional health information, please contact the Center for Consumer Health Information at the [facility] or toll-free extension [phone]. If you prefer, you may visit [email or web address] or [email or web address]. This document was last reviewed on: 2015 index#0614 is the Best Feeding Your Baby's stomach size is perfectly matched to your milk supply - Day 1 (size of a silav, 5-7 ml) - Day 3 (size of a walnut, 22-27 ml) - Day 10 (size of a large egg, 80-100 ml) 2. Proper latch and positioning are important to - Mother and baby should be comfortable while - tugging is normal, but should not hurt - Ensures baby gets enough milk - Ensures mom has enough milk for the baby - Good latch prevents nipple soreness - Don't be afraid to ask for help 3. Ensuring the best start to for you and your baby - Ask staff how hand expression can improve ease of and getting baby to latch - Giving baby formula can interfere with milk supply and successfully learning to breastfeed - Water should not be given to babies at any time - Formula can increase your baby's risk for illness - babies eat often because breast milk is digestible and delicious - Wait 3-4 weeks until introducing a pacifier or bottle 4. is a gift of a lifetime that only mom can give - Talk to your information systems consultant, nurse, and/or doctor while at the hospital about - Ask about local support groups and resources that you can use if you have questions after you go home documented in this encounterMain Campus Medical Center10-07-2022 Miscellaneous Notes* Quick Notes - Honey Angel PA-C - 06/21/2022 1:20 PM EDT + FM. No leaking/bleeding/contractions. Planning . PPBC - discussed. Third trimester labs ordered. GUERO and PTL precautions discussed. Hx HSV: plan suppression at 36 weeks. AMA, Obesity: Plan for [id number] growth US at 32 weeks, weekly NSTs at 36 weeks. rtc 2 weeks Honey Angel PA-C documented in this encounterMain Campus Medical Center10-07-2022 Nurse Note* Radha Moore MA - 06/21/2022 1:14 PM EDT Movement? Active baby Vaginal Bleeding: NO Vaginal fluid leakage of fluid: NO Contractions: no contractions Edema: Negative Radha Moore MA documented in this encounterMain Campus Medical Center08-26-2022 Instructions* Patient Instructions* Honey Angel PA-C - 05/10/2022 8:52 AM EDT Please call the office before going to the hospital. If you are , go to the ER at the hospital main campus. Do not go to the outlying ER s ([facility] or [facility]). If you need to go to an ER and cannot or will not go downtown, please use one of [facility] s ERs (not [place], [facility] or [place]). COUNTING YOUR BABY'S MOVEMENTS Your Baby's regular movements are a sign of good health. Though babies may sleep for up to an hour,most of the time your baby is active and moving. On average, a healthy baby kicks or moves at least10 times within a two-hour period. An easy way to check the health of your baby is to keep track of your baby's movements once a day (we call it kick counts). We think it is best to begin kick counts at 28 weeks of and continue once a day until your baby's . Please follow the directions below and record your baby's movements every day. Bring this Kick Count Record with you to all of your visits. How to count and record your baby's movements: Pick a time once a day to record your baby's movements. Your baby may be most active when you are at rest. Many women find after a meal to be the best time to record their baby's movements. Sit in a comfortable position and place your hands, palms down, on your baby. When you are ready to begin counting, look at the time. John the start time on the Kick Count Record. Count each time you feel your baby kick, move, roll, flutter, or swish. Continue counting until your baby has moved ten times. John the end time on the Kick Count Record. How many minutes did it take your baby to move ten times? Record this number in the box. If you do not count ten movements in two hours or less, call your health care provider right away for further instructions Day Date Day Date Date Start Start Start End End End Minutes to reach 10 kicks Minutes to reach 10 kicks Minutes to reach 10 kicks True Vs. False Labor Before true labor begins, you might have false labor pains, also known as Octavio Mckinley contractions. These irregular uterine contractions are perfectly normal and might start to occur from your fourth month of . They are your body s way of getting ready for the real thing. What do Octavio Mckinley contractions feel like? Carlton Mckinley contractions can be described as tightening in the abdomen that comes and goes. Thesecontractions do not get closer together, do not increase in how long they last or how often they occur, and do not feel stronger over time. They often come with a change of position and stop with rest. What do true labor contractions feel like? The way a contraction feels is different for each woman and might feel different from one pregnancyto the next. Labor contractions cause discomfort or a dull ache in your back and lower abdomen, along with pressure in the pelvis. Some women might also feel pain in their sides and thighs. Some women describe contractions as strong menstrual cramps, while others describe them as strong waves that feel like diarrhea cramps. So how do you know when your contractions are the real thing? Timing of contractions: False labor -- contractions are often irregular and do not get closer together. True labor -- contractions come at regular intervals and get closer together as time goes on. (Contractions last about 30 to 70 seconds.) Change with movement: False labor -- Contractions might stop when you walk or rest, or might even stop when you change position. True labor -- Contractions continue, despite moving or changing positions. I sometimes have pain on the side of my stomach Sharp, shooting pains on either side of your abdomen that travel into the groin might result from stretching ligaments that support your growing uterus. To ease your discomforts of false labor pains: Try changing your position or activity. Make sure you are drinking enough fluids (at least 10 to 12 glasses of water, juice, or milk per day). Try to rest and relax. I am afraid to keep bothering my health care provider with false alarms. When should I call my health care provider? Your health care provider is available any time to answer your questions and ease your concerns about whether or not your contractions are signs of true or false labor. Don t be afraid to call your health care provider if you are not sure what it is you are feeling. He or she might ask you some questions to help determine if you are truly in labor. If there s any question at all, it s better to be evaluated by your health care provider. It is essential to call your health care provider at any time if you have: Bright red vaginal bleeding Continuous leaking of fluid or wetness, or if your water breaks (can be felt as a gushing of fluid) Strong contractions every five minutes for one hour Contractions that you are unable to walk through A noticeable change in your baby s movement, or if you feel fewer than six to 10 movements in one hour. References [employer]. False Labor Accessed 11/23/2015. [employer]. Contractions Accessed 11/23/2015. Copyright 6027-1642 [facility]. All rights reserved This information is provided by the [facility] and is not intended to replace the medical advice of your doctor or health care provider. Please consult your health care provider for advice about a specific medical condition. For additional health information, please contact the Center for Consumer Health Information at the [facility] or toll-free extension [phone]. If you prefer, you may visit [email or web address] or [email or web address]. This document was last reviewed on: 2015 index#3399 is the Best Feeding 1. Wsxq-op-jcyb is best for your baby A. Your baby wants to be with you right away - This keeps the baby warm and calm - Better oxygen and blood sugar levels for your baby - Good for bonding B. Helps support your - Helps you learn the feeding cues for baby-led feeding - Frequent feeding helps develop a good milk supply 2. Rooming in so you and your baby can stay together all the time - Parents learn baby's feeding cues - Baby learns to recognize mom, sleeps better and cries less - Parents learn how to care for baby with staff nearby to help - Baby has more chances to learn to breastfeed and mom can develop more confidence 3. Feed your baby as often and long as baby show signs of being hungry - Allow baby to guide feeding. Look for cues: stirring, mouth opening, turning head, sucking hands and rooting for food - Ensures a good milk supply - Baby's hunger is satisfied - Watch the baby, no the clock documented in this encounterMain Campus Medical Center08-26-2022 Nurse Note* Anat Arce LPN - 05/10/2022 8:38 AM EDT Movement? Active baby Vaginal Bleeding: NO Vaginal fluid leakage of fluid: NO Contractions: no contractions Edema: Negative Anat Arce LPN documented in this encounterMain Campus Medical Center08-26-2022 Miscellaneous Notes* Quick Notes - Honey Angel PA-C - 05/10/2022 8:35 AM EDT + FM. No No leaking/bleeding/contractions. NIPT negative. Planning . Hx HSV plan suppression at 36 weeks. GUERO and PTL precautions discussed. Anatomy US 05/07/22 reviewed: Impression The patient presents for completion of the anatomic survey. 1. Single, live, intrauterine . 2. The anatomic survey was completed and within normal limits. 3. Normal amniotic fluid 4. The placenta is posterior without evidence of a previa. 5. Unremarkable adnexa bilaterally. Pre-existing HTN before - Was taking lisinopril prior to . No current meds. Plans to bring home BP cuff at next visit to compare. Normotensive today. Not taking bASA. Next growth US for 32 weeks. Complaints of frequent migraines. Has tried tylenol and magnesium with only mild relief. States shetook fioricet with last which helped. Would like script today. rtc 4 weeks Honey Angel PA-C documented in this encounterMain Campus Medical Center08-22-2022 History of Present illness Narrative* Shaun Carlin MD - 05/06/2022 1:40 PM EDT Patient presents for follow up on hypertension. Also has been having worsening epigastric pain. Taking pepcid has been helping. Feels similar to prior ulcre. Hypertension This is a chronic problem. The current episode started more than 1 year ago. The problem is unchanged. Pertinent negatives include no chest pain, palpitations or shortness of breath. GERD She complains of abdominal pain and heartburn. She reports no chest pain or no coughing. This is a chronic problem. The current episode started more than 1 year ago. The problem has been waxing and waning. She has tried a histamine-2 antagonist for the symptoms. The treatment provided moderate relief. HISTORY REVIEWED PAST MEDICAL HISTORY Diagnosis Date Abnormal Pap smear of cervix 2019 ASCUS neg HPV ADHD (attention deficit hyperactivity disorder), combined type 08/11/2018 Anemia Anxiety 07/07/2018 Bipolar disorder, in partial remission, most recent episode mixed (HCC) 10/04/2019 Depression, major, recurrent, moderate (HCC) 07/07/2018 Drug use disorder remission since 06/2019; methamphetamines, marijuana Gastritis due to Helicobacter species 11/26/2021 Group B Streptococcus carrier, antepartum 07/26/2021 Sensitive to Vanc Herpes simplex virus (HSV) infection 2008 Hypertension, essential 11/26/2021 Migraine without aura and without status migrainosus, not intractable 07/07/2018 MRSA infection 08/15/2021 -patient reports history of multi-site staph skin infection, is unsure if MRSA or MSSA -will treat with vancomycin preoperatively if need for delivery OAB (overactive bladder) PUD (peptic ulcer disease) 11/26/2021 Urinary tract infection in , antepartum, second trimester 03/28/2022 PAST SURGICAL HISTORY Procedure Laterality Date INDUCED BY D&C 2008 FAMILY HISTORY Problem Relation Age of Onset Heart Mother Hypertension Father No Known Problems Brother No Known Problems Maternal Grandmother No Known Problems Maternal Grandfather Breast Cancer Paternal Grandmother No Known Problems Paternal Grandfather No Known Problems Brother Social History Social History Narrative Not on file Allergies: ALLERGIES Allergen Reactions Amoxicillin Unknown WAS TOLD BY MOM Medications: ondansetron (ZOFRAN) 8 mg tablet TAKE 1 TABLET BY MOUTH EVERY 8 HOURS NEEDED FOR NAUSEA AND VOMITING polyethylene glycol 3350 (MIRALAX, GLYCOLAX) 17 gram/dose powder TAKE 17 G BY MOUTH ONCE DAILY. DISSOLVE DOSE IN 4 - 8 OUNCES OF LIQUID AND TAKE DIRECTED. Zalexkeo-Ee-Cgs-Fe-FA tab Take 1 tablet by mouth once daily. hydrocortisone (ANUSOL-HC) 2.5 % rectal cream by RECTAL route twice daily. acetaminophen (TYLENOL) 500 mg tablet Take 2 tablets by mouth every 6 hours as needed for pain. clotrimazole (LOTRIMIN, CLOTRIM) 1 % cream APPLY TO AFFECTED AREA TWICE A DAY famotidine (PEPCID) 20 mg tablet Take 1 tablet by mouth twice daily. Problem List: ACTIVE PROBLEM LIST Urinary Tract Infection Affecting Care of Mother in Second Trimester, Antepartum - 03/28/2022 Comment: Presents with complaint of burning upon urination and still feeling the urge to pee after emptying bladder Urine dip +nitrates, +leukocytes Urine culture sent Macrobid 14 Weeks Gestation of - 03/28/2022 Vaginal Bleeding in - 03/11/2022 Comment: - SSE shows a closed cervix, 4 cc of dark blood, but there is no active bleeding noted - FHR is present and an appropriate rate at 170 visualized on ultrasound - RH +, Rhogham not indicated - Patient consouled on return precaution & signs/symptoms to monitor for - She will be calling her OB tomorrow to schedule a close outpatient follow up appointment & to schedule nuchal translucency ultrasound Abdominal Pain Affecting - 03/11/2022 Comment: - Currently reporting no pain at this time - Urine Dip does not show signs of infection - Likely musculoskeletal Preexisting Hypertension Complicating , Antepartum - 03/05/2022 Obesity Complicating , First Trimester - 03/05/2022 History of Group B Streptococcus (Gbs) Infection - 03/05/2022 Multigravida of Advanced Maternal Age in First Trimester - 03/05/2022 Herpes Simplex Type 2 (Hsv-2) Infection Affecting , Antepartum, Unspecified Trimester - 03/05/2022 Vaginitis Complicating Current - 03/05/2022 History of Drug Use - 03/05/2022 Gerd Without Esophagitis - 02/08/2022 Hypertension, Essential - 11/26/2021 Hyperlipidemia, Mixed - 11/26/2021 Nausea and Vomiting of , Antepartum - 01/12/2021 Obesity, Class II, Bmi 35-39.9 - 09/03/2018 Comment: -SCDs intrapartum and after delivery until ambulatory Migraine Without Aura and Without Status Migrainosus, Not Intractable - 07/07/2018 Review of Systems Constitutional: Negative for chills and fever. Respiratory: Negative for cough and shortness of breath. Cardiovascular: Negative for chest pain and palpitations. Gastrointestinal: Positive for abdominal pain and heartburn. Negative for blood in stool. Physical Exam Vitals and nursing note reviewed. Constitutional: General: She is not in acute distress. Appearance: She is well-developed. She is not diaphoretic. HENT: Head: Normocephalic and atraumatic. Eyes: General: Right eye: No discharge. Left eye: No discharge. Conjunctiva/sclera: Conjunctivae normal. Cardiovascular: Rate and Rhythm: Normal rate and regular rhythm. Heart sounds: Normal heart sounds. No murmur heard. No friction rub. No gallop. Pulmonary: Effort: Pulmonary effort is normal. No respiratory distress. Breath sounds: Normal breath sounds. No wheezing, rhonchi or rales. Skin: General: Skin is warm and dry. Neurological: Mental Status: She is alert and oriented to person, place, and time. Mental status is at baseline. BP 120/72 Pulse 95 Wt 103.1 kg (227 lb 3.2 oz) LMP 12/05/2021 (Exact Date) SpO2 98% BMI 39.00 kg/m ASSESSMENT/PLAN: 1. PUD (peptic ulcer disease) - ICD9: 533.90, ICD10: K27.9 (primary diagnosis) Start pepcid bid - FAMOTIDINE 20 MG TABLET 2. GERD without esophagitis - ICD9: 530.81, ICD10: K21.9 - FAMOTIDINE 20 MG TABLET 3. Preexisting hypertension complicating , antepartum - ICD9: 642.03, ICD10: O10.919 - good control - Recommended regular aerobic exercise. - Recommend home blood pressure monitoring, to bring results in on next visit - Goal of BP <130/80 Shaun Carlin MD documented in this encounterMain [facility]22 Miscellaneous Notes* Addendum Note - Honey Angel PA-C - 04/05/2022 10:45 AM EDT Addended by: HONEY ANGEL on: 04/05/2022 10:45 AM Modules accepted: Orders * Quick Notes - Honey Angel PA-C - 04/05/2022 8:55 AM EDT No FM yet. No leaking/bleeding/contractions. NIPT negative. Anatomy US order placed. H/o CHTN - was on lisinopril before . No current antihypertensives. BP today 116/71. H/o HSV - plan for suppression at 36 weeks Urine GBS positive - Has 2 doses of macrobid left. Encouraged completion of antibiotics course. Reports urinary symptoms have improved. Complains of thick yellow discharge. Was given clindamycin 2% vaginal cream without relief. Will order yeast swab today. Also complaints of constipation and headaches. Encouraged tylenol and magnesium supplements for headaches. Has tried colace without relief. Reports Miralax provides relief and requesting script. rtc 4 weeks Honey Angel PA-C documented in this encounterMain [facility]07-[facility]22 History of Present illness Narrative* Shaun Carlin MD - 04/05/2022 10:20 AM EDT The patient is a 36-year-old female who presents for follow-up on hypertension and GERD. She is currently 15w6d . Thus far she has not needed BP or gerd medications while . BP today is well controlled. Shenotes some higher readings (130s/80s) at home. Hypertension This is a chronic problem. The current episode started more than 1 year ago. The problem has been waxing and waning since onset. The problem is controlled. Pertinent negatives include no chest pain, palpitations or shortness of breath. GERD She complains of abdominal pain, heartburn and nausea. She reports no chest pain or no coughing. This is a chronic problem. The current episode started more than 1 year ago. The problem has been waxing and waning. HISTORY REVIEWED PAST MEDICAL HISTORY Diagnosis Date Abnormal Pap smear of cervix 2019 ASCUS neg HPV ADHD (attention deficit hyperactivity disorder), combined type 08/11/2018 Anemia Anxiety 07/07/2018 Bipolar disorder, in partial remission, most recent episode mixed (HCC) 10/04/2019 Depression, major, recurrent, moderate (HCC) 07/07/2018 Drug use disorder remission since 06/2019; methamphetamines, marijuana Gastritis due to Helicobacter species 11/26/2021 Group B Streptococcus carrier, antepartum 07/26/2021 Sensitive to Vanc Herpes simplex virus (HSV) infection 2008 Hypertension, essential 11/26/2021 Migraine without aura and without status migrainosus, not intractable 07/07/2018 MRSA infection 08/15/2021 -patient reports history of multi-site staph skin infection, is unsure if MRSA or MSSA -will treat with vancomycin preoperatively if need for delivery OAB (overactive bladder) PUD (peptic ulcer disease) 11/26/2021 Urinary tract infection in , antepartum, second trimester 03/28/2022 PAST SURGICAL HISTORY Procedure Laterality Date INDUCED BY D&C 2008 FAMILY HISTORY Problem Relation Age of Onset Heart Mother Hypertension Father No Known Problems Brother No Known Problems Maternal Grandmother No Known Problems Maternal Grandfather Breast Cancer Paternal Grandmother No Known Problems Paternal Grandfather No Known Problems Brother Social History Social History Narrative Not on file Allergies: ALLERGIES Allergen Reactions Amoxicillin Unknown WAS TOLD BY MOM Medications: polyethylene glycol 3350 (MIRALAX) 17 gram/dose powder Take 17 g by mouth once daily. Dissolve dosein 4 - 8 ounces of liquid and take as directed. nitrofurantoin monohydrate and macrocrystal (MACROBID) 100 mg capsule Take 1 capsule by mouth twicedaily for 10 days. ondansetron (ZOFRAN) 8 mg tablet TAKE 1 TABLET BY MOUTH EVERY 8 HOURS NEEDED FOR NAUSEA AND VOMITING [id number] tab Take 1 tablet by mouth once daily. hydrocortisone (ANUSOL-HC) 2.5 % rectal cream by RECTAL route twice daily. acetaminophen (TYLENOL) 500 mg tablet Take 2 tablets by mouth every 6 hours as needed for pain. clotrimazole (LOTRIMIN, CLOTRIM) 1 % cream APPLY TO AFFECTED AREA TWICE A DAY Problem List: ACTIVE PROBLEM LIST Urinary Tract Infection Affecting Care of Mother in Second Trimester, Antepartum - 03/28/2022 Comment: Presents with complaint of burning upon urination and still feeling the urge to pee after emptying bladder Urine dip +nitrates, +leukocytes Urine culture sent Macrobid 14 Weeks Gestation of - 03/28/2022 Vaginal Bleeding in - 03/11/2022 Comment: - SSE shows a closed cervix, 4 cc of dark blood, but there is no active bleeding noted - FHR is present and an appropriate rate at 170 visualized on ultrasound - RH +, Rhogham not indicated - Patient consouled on return precaution & signs/symptoms to monitor for - She will be calling her OB tomorrow to schedule a close outpatient follow up appointment & to schedule nuchal translucency ultrasound Abdominal Pain Affecting - 03/11/2022 Comment: - Currently reporting no pain at this time - Urine Dip does not show signs of infection - Likely musculoskeletal Preexisting Hypertension Complicating , Antepartum - 03/05/2022 Obesity Complicating , First Trimester - 03/05/2022 History of Group B Streptococcus (Gbs) Infection - 03/05/2022 Multigravida of Advanced Maternal Age in First Trimester - 03/05/2022 Herpes Simplex Type 2 (Hsv-2) Infection Affecting , Antepartum, Unspecified Trimester - 03/05/2022 Vaginitis Complicating Current - 03/05/2022 History of Drug Use - 03/05/2022 Gerd Without Esophagitis - 02/08/2022 Hypertension, Essential - 11/26/2021 Hyperlipidemia, Mixed - 11/26/2021 Nausea and Vomiting of , Antepartum - 01/12/2021 Obesity, Class II, Bmi 35-39.9 - 09/03/2018 Comment: -SCDs intrapartum and after delivery until ambulatory Migraine Without Aura and Without Status Migrainosus, Not Intractable - 07/07/2018 Review of Systems Constitutional: Negative for chills and fever. Respiratory: Negative for cough and shortness of breath. Cardiovascular: Negative for chest pain and palpitations. Gastrointestinal: Positive for abdominal pain, heartburn, nausea and vomiting. Physical Exam Vitals and nursing note reviewed. Constitutional: General: She is not in acute distress. Appearance: She is well-developed. She is not diaphoretic. HENT: Head: Normocephalic and atraumatic. Eyes: General: Right eye: No discharge. Left eye: No discharge. Conjunctiva/sclera: Conjunctivae normal. Cardiovascular: Rate and Rhythm: Normal rate and regular rhythm. Heart sounds: Normal heart sounds. No murmur heard. No friction rub. No gallop. Pulmonary: Effort: Pulmonary effort is normal. No respiratory distress. Breath sounds: Normal breath sounds. No wheezing, rhonchi or rales. Abdominal: Tenderness: There is no abdominal tenderness. Hernia: A hernia is present. Skin: General: Skin is warm and dry. Neurological: Mental Status: She is alert and oriented to person, place, and time. Mental status is at baseline. BP 110/82 Pulse 100 Temp 37.1 C (98.8 F) Ht 162.6 cm (5' 4) Wt 102.1 kg (225 lb) LMP 12/05/2021 (Exact Date) BMI 38.62 kg/m ASSESSMENT/PLAN: 1. Hypertension, essential - ICD9: 401.9, ICD10: I10 (primary diagnosis) - fair control - Recommended regular aerobic exercise. - Recommend home blood pressure monitoring, to bring results in on next visit - Recommend she bring her home cuff to a visit to compare results - Goal of BP <130/80 2. Preexisting hypertension complicating , antepartum - ICD9: 642.03, ICD10: O10.919 - fair control - Recommended regular aerobic exercise. - Recommend home blood pressure monitoring, to bring results in on next visit - Goal of BP <130/80 3. GERD without esophagitis - ICD9: 530.81, ICD10: K21.9 - Stable off of med 4. Nausea and vomiting of , antepartum - ICD9: 643.93, ICD10: O21.9 Stable, has zofran prn 5. Periumbilical hernia - ICD9: 553.1, ICD10: K42.9 Occasional soreness, monitor Shaun Carlin MD documented in this encounterMain [facility]07-22-2022 Instructions* Patient Instructions* Honey Angel PA-C - 04/05/2022 9:20 AM EDT Please call the office before going to the hospital. If you are , go to the ER at the [facility]. Do not go to the outlying ER s ([facility] or [place]). If you need to go to an ER and cannot or will not go downtown, please use one of [facility] s ERs (not [facility], [facility] or [facility]). is the best feeding Why is Important - is good for babies - Gives nutrients and disease protection - Protects against obesity - Lowers risk of ear infections, asthma, respiratory infections and diarrhea - Protects against sudden syndrome (SIDS) - Promotes bonding between mother and baby - Exclusive gives the greatest benefit - is good for mom! - Lowers her risk for breast and ovarian cancer, diabetes and heart disease - Promotes bonding between mom and baby - The longer you breastfeed, the greater the benefit - is good for family - is free - Breast milk is convenient- it's always available and the perfect temperature - Breast milk is easier for your baby to digest - Your breast milk supply increases and changes to meet your baby's needs - Breast feeding is good for the planet - Support from those around you can help with your decision to breast feed - Exclusive is Best for 6 months and Beyond - Breast milk has all the nutrients your baby needs - Feeding other foods too soon can cause digestive problems- like spit-ups and constipation - Provides health benefits to both mother and baby documented in this encounterMain [facility] Center07-22-2022 Nurse Note* Eliz Friedman MA - 04/05/2022 8:47 AM EDT Movement? Too early Vaginal Bleeding: Yes provider notified Vaginal fluid leakage of fluid: NO Contractions: no contractions Edema: Negative Eliz Friedman MA documented in this encounterMain [facility] Center07-14-2022 History of Past illness Narrative* Problem Noted Date Resolved Date 14 weeks gestation of 03/28/2022 09/11/2022 Vaginal bleeding in 03/11/2022 Overview: - SSE shows a closed cervix, 4 cc of dark blood, but there is no active bleeding noted - FHR is present and an appropriate rate at 170 visualized on ultrasound - RH +, Rhogham not indicated - Patient consouled on return precaution & signs/symptoms to monitor for - She will be calling her OB tomorrow to schedule a close outpatient follow up appointment & to schedule nuchal translucency ultrasound Gastritis due to Helicobacter species 11/26/2021 02/08/2022 Epigastric pain 10/30/2021 02/08/2022 Elevated blood pressure read ing without diagnosis of hypertension 10/30/2021 11/26/2021 Encounter for elective induction of labor 202008/18/2021 Overview: -GSB+, PCN allergy, Ancef in labor -Pitocin per protocol (halved x1) -amniotomy @1530 -epidural in -IUPC -FSE H/o 1 VAVD and SVDx2, most recent in 2010, largest 7lbs 9oz Growth US @ 36w5d, EFW 6lbs 9oz, 48% Negative NIPT Group B Streptococcus carrier, antepartum 202010/30/2021 Overview: Sensitive to Vanc headache in first trimester 02/09/2021 06/29/2021 Elderly multigravida in third trimester 01/13/20 21 10/30/2021 Overview: -negative NIPT 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 , antepartum, third trimester 01/12/2021 10/30/2021 Overview: -On Acyclovir since 36 weeks, compliant -SSE negative on admission -denies recent symptoms or outbreaks Bipolar disorder, in partial remission, most recent episode mixed 10/04/2019 08/15/2021 Pure hypercholesterolemia 11/02/20182020 Tobacco use disorder 10/30/2018 12/12/2020 Abdominal wall mass 08/11/2018 09/03/2018 ADHD (attention deficit hype ractivity disorder), combined type 08/11/2018 08/15/2021 Depression, major, recurrent, moderate 8 08/15/2021 Anxiety 07/07/2018 08/15/2021 Methamphetamine abuse 07/07/2018 04/26/2021 Marijuana abuse 07/07/2018 04/26/2021 documented as of this encounter (statuses as of 09/20/2022) [facility] of Past illness Narrative* Problem Noted Date Resolved Date 14 weeks gestation of 03/28/2022 09/11/2022 Vaginal bleeding in 03/11/2022 Overview: - SSE shows a closed cervix, 4 cc of dark blood, but there is no active bleeding noted - FHR is present and an appropriate rate at 170 visualized on ultrasound - RH +, Rhogham not indicated - Patient consouled on return precaution & signs/symptoms to monitor for - She will be calling her OB tomorrow to schedule a close outpatient follow up appointment & to schedule nuchal translucency ultrasound Gastritis due to Helicobacter species 11/26/2021 02/08/2022 Epigastric pain 10/30/2021 02/08/2022 Elevated blood pressure read ing without diagnosis of hypertension 10/30/2021 11/26/2021 Encounter for elective induction of labor 202008/18/2021 Overview: -GSB+, PCN allergy, Ancef in labor -Pitocin per protocol (halved x1) -amniotomy @1530 -epidural in -IUPC -FSE H/o 1 VAVD and SVDx2, most recent in 2010, largest 7lbs 9oz Growth US @ 36w5d, EFW 6lbs 9oz, 48% Negative NIPT Group B Streptococcus carrier, antepartum 202010/30/2021 Overview: Sensitive to Vanc headache in first trimester 02/09/2021 06/29/2021 Elderly multigravida in third trimester 01/13/20 21 10/30/2021 Overview: -negative NIPT 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 , antepartum, third trimester 01/12/2021 10/30/2021 Overview: -On Acyclovir since 36 weeks, compliant -SSE negative on admission -denies recent symptoms or outbreaks Bipolar disorder, in partial remission, most recent episode mixed 10/04/2019 08/15/2021 Pure hypercholesterolemia 11/02/20182020 Tobacco use disorder 10/30/2018 12/12/2020 Abdominal wall mass 08/11/2018 09/03/2018 ADHD (attention deficit hype ractivity disorder), combined type 08/11/2018 08/15/2021 Depression, major, recurrent, moderate 8 08/15/2021 Anxiety 07/07/2018 08/15/2021 Methamphetamine abuse 07/07/2018 04/26/2021 Marijuana abuse 07/07/2018 04/26/2021 documented as of this encounter (statuses as of 10/04/2022) [facility] Miscellaneous Notes* Telephone Encounter - Ольга Cook APRN.CNP - 02/21/2022 12:18 PM EDT .The following approved medication requests have been transmitted electronically. Signed Prescriptions Disp Refills ondansetron (ZOFRAN) 8 mg tablet 30 tablet 1 Sig: Take 1 tablet by mouth every 8 hours as needed for nausea/vomiting. Ольга Cook APRN.CNP documented in this encounterMain [facility] Medical Center06-02-2022 Instructions* Patient Instructions* Flora Browning MD - 02/14/2022 2:53 PM EDT Bleeding in Early Many women experience bleeding in the first trimester. This can be part of the normal process of establishing the , commonly called implantation bleeding or can occur if there is a collection of blood in the uterus (your doctor may refer to this as a subchorionic hemorrhage or cameron bchorionic hematoma). Bleeding can also happen due to infection in the vagina or benign overgrowthson the cervix called polyps. Most of these situations will go on to be normal pregnancies. Bleeding can also occur with a miscarriage or an ectopic ( outside of the uterus, most commonly in the fallopian tube). In order to tell if the is normal or not, your doctor may order lab tests or an ultrasound. Blood work is usually done to check your HCG level, which is the hormone. HCG increases in a predictable pattern in early . If the level is decreasing it means the has stopped developing. Your doctor will also order a blood type test if your blood type is unknown. If your blood type is negative you will receive an injection of Rhogam to prevent sensitization for future pregnancies. An ultrasound may be ordered to see if the is in the correct location or to check if the fetus has a heartbeat. Whether an ultrasound will be helpful or not depends on how far along you arein the . If you are diagnosed with a miscarriage (also called a spontaneous ), there are several options for treatment. You may choose to wait and see if your body will pass the on its own, which is similar to a heavy period with cramping. Misoprostol is a medication that can help speed upthe process and is given either in the vagina or by mouth. Surgical management for miscarriage is called a D&C and involves your doctor emptying out the uterus with suction. This is done under sedation in the operating room. If at any time you experience heavy vaginal bleeding (soaking through a pad in an hour or less), severe abdominal pain, lightheadedness or shortness of breath you need to call your doctor immediatelyor go the the emergency room. We understand this is a difficult time for you and your family and will do our best to answer all of your questions and concerns. documented in this encounterMain [facility] Center06-02-2022 History of Present illness Narrative* Flora Browning MD - 02/14/2022 2:52 PM EDT Sia Olivera is a 36 year old who presents with amen. Rx for PNV. Occ N/V but has not tried OTC unisom. Patient's last menstrual period was 12/05/2021 (exact date). Gestational age by LMP: 10+1 Rh Positive Vaginal bleeding: No Cramping: No HCG: NA Imagin+5 wk IUP with CA, SUNG by US of 09/21/22 Plan: Amen- labs today, minor NOB 2. Constipation- rec laxative and not stool softener 3. NVP- rec unisom Medical Decision Making: Problems: Moderate: New problem with uncertain prognosis and 2+ stable chronic illnesses Data: Unique test result(s) reviewed: 2 Unique test(s) ordered: 3+ Risk: Moderate: Drug management Medical Decision Making Level: 4 - Moderate Flora Browning MD, MD documented in this encounterMain [facility] Center05-27-2022 History of Present illness Narrative* Shaun Carlin MD - 02/08/2022 10:00 AM EDT Pt presents today for follow up on HTN. She had been taking lisinopril but had positive HCG on 01/21. She has an OB US scheduled. BP wnl despite not taking lisinopril for several days. Not eating/drinking very well due to nausea. Does have zofran at home. Hypertension This is a chronic problem. The current episode started more than 1 month ago. The problem is unchanged. The problem is controlled. Associated symptoms include headaches. Pertinent negatives include no chest pain, palpitations or shortness of breath. Past treatments include REYNOLD inhibitors. GERD She complains of heartburn and nausea. She reports no abdominal pain, no chest pain or no coughing.This is a chronic problem. The current episode started more than 1 month ago. The problem has been gradually improving. She has tried an antibiotic for the symptoms. The treatment provided significant relief. Past procedures include H. pylori antibody titer. Headache This is a chronic problem. The current episode started more than 1 week ago. The problem has not changed since onset.Associated symptoms include nausea and vomiting. Pertinent negatives include no fever, no palpitations and no shortness of breath. She has tried triptan therapy for the symptoms. HISTORY REVIEWED PAST MEDICAL HISTORY Diagnosis Date Abnormal Pap smear of cervix 2019 ASCUS neg HPV ADHD (attention deficit hyperactivity disorder), combined type 08/11/2018 Anemia Anxiety 07/07/2018 Bipolar disorder, in partial remission, most recent episode mixed (HCC) 10/04/2019 Depression, major, recurrent, moderate (HCC) 07/07/2018 Drug use disorder remission since 06/2019; methamphetamines, marijuana Group B Streptococcus carrier, antepartum 07/26/2021 Sensitive to Vanc Herpes simplex virus (HSV) infection 2008 Hypertension, essential 11/26/2021 Migraine without aura and without status migrainosus, not intractable 07/07/2018 MRSA infection 08/15/2021 -patient reports history of multi-site staph skin infection, is unsure if MRSA or MSSA -will treat with vancomycin preoperatively if need for delivery OAB (overactive bladder) PAST SURGICAL HISTORY Procedure Laterality Date INDUCED BY D&C 2009 FAMILY HISTORY Problem Relation Age of Onset Heart Mother Hypertension Father No Known Problems Brother No Known Problems Maternal Grandmother No Known Problems Maternal Grandfather Breast Cancer Paternal Grandmother No Known Problems Paternal Grandfather No Known Problems Brother Social History Social History Narrative Not on file Allergies: ALLERGIES Allergen Reactions Amoxicillin Unknown WAS TOLD BY MOM Medications: hydrocortisone (ANUSOL-HC) 2.5 % rectal cream by RECTAL route twice daily. acetaminophen (TYLENOL) 500 mg tablet Take 2 tablets by mouth every 6 hours as needed for pain. clotrimazole (LOTRIMIN, CLOTRIM) 1 % cream APPLY TO AFFECTED AREA TWICE A DAY lisinopril (ZESTRIL, PRINIVIL) 10 mg tablet TAKE 1 TABLET BY MOUTH EVERY DAY SUMAtriptan (IMITREX) 50 mg tablet TAKE 1 TABLET BY MOUTH NEEDED FOR MIGRAINE HEADACHE(SEE INSTRUCTIONS) omeprazole (PRILOSEC) 40 mg capsule Take 1 capsule by mouth once daily. Problem List: ACTIVE PROBLEM LIST Gastritis Due to Helicobacter Species - 11/26/2021 Pud (Peptic Ulcer Disease) - 11/26/2021 Hypertension, Essential - 11/26/2021 Hyperlipidemia, Mixed - 11/26/2021 Epigastric Pain - 10/30/2021 Obesity, Class II, Bmi 35-39.9 - 09/03/2018 Comment: -SCDs intrapartum and after delivery until ambulatory Migraine Without Aura and Without Status Migrainosus, Not Intractable - 07/07/2018 Review of Systems Constitutional: Negative for chills and fever. Respiratory: Negative for cough and shortness of breath. Cardiovascular: Negative for chest pain and palpitations. Gastrointestinal: Positive for heartburn, nausea and vomiting. Negative for abdominal pain, blood in stool, constipation and diarrhea. Neurological: Positive for headaches. Negative for dizziness and weakness. Physical Exam Vitals and nursing note reviewed. Constitutional: General: She is not in acute distress. Appearance: She is well-developed. She is not diaphoretic. HENT: Head: Normocephalic and atraumatic. Eyes: General: Right eye: No discharge. Left eye: No discharge. Conjunctiva/sclera: Conjunctivae normal. Pupils: Pupils are equal, round, and reactive to light. Cardiovascular: Rate and Rhythm: Normal rate and regular rhythm. Heart sounds: Normal heart sounds. No murmur heard. No friction rub. No gallop. Pulmonary: Effort: Pulmonary effort is normal. No respiratory distress. Breath sounds: Normal breath sounds. No wheezing, rhonchi or rales. Musculoskeletal: General: No swelling. Normal range of motion. Cervical back: Normal range of motion and neck supple. Skin: General: Skin is warm and dry. Neurological: Mental Status: She is alert and oriented to person, place, and time. Mental status is at baseline. BP 114/76 Pulse 92 Temp 36.6 C (97.9 F) Ht 162.6 cm (5' 4) Wt 101.2 kg (223 lb) LMP 12/05/2021 (Exact Date) BMI 38.28 kg/m ASSESSMENT/PLAN: 1. Hypertension, essential - ICD9: 401.9, ICD10: I10 (primary diagnosis) - fair control - D/C lisinopril - Encouraged dietary sodium restriction/DASH diet - Recommended regular aerobic exercise. - Recommend home blood pressure monitoring, to bring results in on next visit - Follow up in 1 month for BP recheck. - Goal of BP <130/80 2. GERD without esophagitis - ICD9: 530.81, ICD10: K21.9 - Stop omeprazole - tums or pepcid prn 3. at early stage - ICD9: V22.2, ICD10: Z34.90 F/u with OB as scheduled 4. Nausea and vomiting of , antepartum - ICD9: 643.93, ICD10: O21.9 zofran prn 5. Migraine without aura and without status migrainosus, not intractable - ICD9: 346.10, ICD10: G43.009 Tylenol prn imitrex if severe Shaun Carlin MD documented [facility] Miscellaneous Notes* Telephone Encounter - Michelle Lopeztoan WARREN - 02/01/2022 7:57 AM EDT Pending Prescriptions Disp Refills LISINOPRIL 10 MG TABLET 90 tablet 0 Sig: TAKE 1 TABLET BY MOUTH EVERY DAY THEA: documented in [facility] Miscellaneous Notes* Telephone Encounter - Celina Subramanian RN - 01/21/2022 10:11 AM EDT Aware of results and transferred to scheduling. HCG : 1,620. US pended. Thanks, Celina Subramanian RN documented in this encounterMain [facility]-06-[facility]22 History of Present illness Narrative* Rolan Dexter DO - 01/18/2022 2:00 PM EDT Sia Olivera is a 36 year old female who presents with a chief complaint of Well Woman (Annual) SUBJECTIVE Pos home preg test PAST MEDICAL HISTORY Diagnosis Date Abnormal Pap smear of cervix 2019 ASCUS neg HPV ADHD (attention deficit hyperactivity disorder), combined type 08/11/2018 Anemia Anxiety 07/07/2018 Bipolar disorder, in partial remission, most recent episode mixed (HCC) 10/04/2019 Depression, major, recurrent, moderate (HCC) 07/07/2018 Drug use disorder remission since 06/2019; methamphetamines, marijuana Group B Streptococcus carrier, antepartum 07/26/2021 Sensitive to Vanc Herpes simplex virus (HSV) infection 2008 Hypertension, essential 11/26/2021 Migraine without aura and without status migrainosus, not intractable 07/07/2018 MRSA infection 08/15/2021 -patient reports history of multi-site staph skin infection, is unsure if MRSA or MSSA -will treat with vancomycin preoperatively if need for delivery OAB (overactive bladder) PAST SURGICAL HISTORY Procedure Laterality Date INDUCED BY D&C 2008 Social History Tobacco Use Smoking status: Former Smoker Types: Cigarettes Smokeless tobacco: Former User Quit date: 10/16/2020 Vaping Use Vaping Use: Never used Substance Use Topics Alcohol use: Not Currently Comment: rarely Drug use: Not Currently Types: Crystal Meth Comment: remission 06/2019 FAMILY HISTORY Problem Relation Age of Onset Heart Mother Hypertension Father No Known Problems Brother No Known Problems Maternal Grandmother No Known Problems Maternal Grandfather Breast Cancer Paternal Grandmother No Known Problems Paternal Grandfather No Known Problems Brother OB History T4 L4 SAB0 IAB1 Ectopic0 Multiple0 Live Births4 OBJECTIVE ALLERGIES Allergen Reactions Amoxicillin Unknown WAS TOLD BY MOM Current Outpatient Medications Medication Sig lisinopril (ZESTRIL, PRINIVIL) 10 mg tablet Take 1 tablet by mouth once daily. SUMAtriptan (IMITREX) 50 mg tablet TAKE 1 TABLET BY MOUTH NEEDED FOR MIGRAINE HEADACHE(SEE INSTRUCTIONS) omeprazole (PRILOSEC) 40 mg capsule Take 1 capsule by mouth once daily. hydrocortisone (ANUSOL-HC) 2.5 % rectal cream by RECTAL route twice daily. acetaminophen (TYLENOL) 500 mg tablet Take 2 tablets by mouth every 6 hours as needed for pain. clotrimazole (LOTRIMIN, CLOTRIM) 1 % cream APPLY TO AFFECTED AREA TWICE A DAY clarithromycin (BIAXIN) 500 mg Take 1 tablet by mouth every 12 hours for 10 days. (Patient not taking: Reported on 01/18/2022 ) benzonatate (TESSALON PERLE) 100 mg capsule Take 2 capsules by mouth three times daily as needed for up to 10 days. (Patient not taking: Reported on 01/18/2022 ) No current facility-administered medications for this visit. Review of Systems Constitutional: Denies weight loss, weight gain, fever Eyes: Negative vision changes ENT/Mouth: No ulcers, sinusitis, tinnitus Cardiovascular: Denies SEGURA, Edema, palpitations, chest pain Respiratory: Denies wheezing, hemoptysis, SOB, cough Gastrointestinal: Denies diarrhea, bloody stool, constipation Genitourinary: See HPI Musculoskeletal: Denies muscle weakness Skin/breast: Denies discharge, masses, rash, ulcers Neurological: Denies syncope, seizures, numbness Physical Exam BP 124/83 Ht 5' 4 (1.63m) Wt 224 lb (101.6kg) LMP 12/05/2021 BMI 38.43 kg/(m^2). General: No Acute Distress, Well nourished, Well developed, No obvious deformities and Alert/Oriented x 3 Mood/Affect: Normal HEENT: Normocephalic, Atraumatic and Grossly Within Normal Limits GI: Abdomen soft, non-tender, no masses, Liver/spleen non-palpable, No hernias and Normoactive bowel sounds Breast: Symmetrical and No masses, tenderness, nipple discharge RN CLINICAL APPEALS: Vulva - no lesions, skin intact with no discolorations, Vagina - no lesions, no discharge, normal color, Bartholin glands - no enlargement, no tenderness, Cervix - no lesions, not friable, no CMT, Adnexa - non-tender, no masses and Rectal - no external hemorrhoids, BERNARDA deferred Skin: Intact, no lesions ASSESSMENT/PLAN: 1. Women's annual routine gynecological examination - ICD9: V72.31, ICD10: Z01.419 (primary diagnosis) - Completed pelvic and breast exam - Encouraged monthly BSE - Follow up for annual exam in one year. - PAP FLUID CERVICAL SCREENING - GC/CHLAMYDIA DNA DET 2. Routine cervical smear - ICD9: V76.2, ICD10: Z12.4 - Completed pelvic and breast exam - Encouraged monthly BSE - Follow up for annual exam in one year. - PAP FLUID CERVICAL SCREENING 3. Secondary amenorrhea - ICD9: 626.0, ICD10: N91.1 - HCG QUANTITATIVE - TYPE AND SCREEN Rolan Dexter DO documented in this encounterMain [facility]04-26-[facility]22 History of Present illness Narrative* Shaun Carlin MD - 01/08/2022 4:20 PM EDT Pt presents for evaluation of cough and follow up on HTN. Hypertension This is a new problem. The current episode started more than 1 month ago. The problem is unchanged.The problem is uncontrolled. Pertinent negatives include no chest pain, palpitations or shortness of breath. Past treatments include REYNOLD inhibitors. The current treatment provides mild improvement. Cough This is a new problem. The current episode started more than 1 week ago. The problem has not changed since onset.There has been no fever. Pertinent negatives include no chest pain, no chills and no shortness of breath. The treatment provided mild relief. HISTORY REVIEWED PAST MEDICAL HISTORY Diagnosis Date Abnormal Pap smear of cervix 2019 ASCUS neg HPV ADHD (attention deficit hyperactivity disorder), combined type 08/11/2018 Anemia Anxiety 07/07/2018 Bipolar disorder, in partial remission, most recent episode mixed (HCC) 10/04/2019 Depression, major, recurrent, moderate (HCC) 07/07/2018 Drug use disorder remission since 06/2019; methamphetamines, marijuana Group B Streptococcus carrier, antepartum 07/26/2021 Sensitive to Vanc Herpes simplex virus (HSV) infection 2008 Hypertension, essential 11/26/2021 Migraine without aura and without status migrainosus, not intractable 07/07/2018 MRSA infection 08/15/2021 -patient reports history of multi-site staph skin infection, is unsure if MRSA or MSSA -will treat with vancomycin preoperatively if need for delivery OAB (overactive bladder) PAST SURGICAL HISTORY Procedure Laterality Date INDUCED BY D&C 2008 FAMILY HISTORY Problem Relation Age of Onset Heart Mother Hypertension Father No Known Problems Brother No Known Problems Maternal Grandmother No Known Problems Maternal Grandfather Breast Cancer Paternal Grandmother No Known Problems Paternal Grandfather No Known Problems Brother Social History Social History Narrative Not on file Allergies: ALLERGIES Allergen Reactions Amoxicillin Unknown WAS TOLD BY MOM Medications: lisinopril (ZESTRIL, PRINIVIL) 10 mg tablet Take 1 tablet by mouth once daily. SUMAtriptan (IMITREX) 50 mg tablet TAKE 1 TABLET BY MOUTH NEEDED FOR MIGRAINE HEADACHE(SEE INSTRUCTIONS) omeprazole (PRILOSEC) 40 mg capsule Take 1 capsule by mouth once daily. hydrocortisone (ANUSOL-HC) 2.5 % rectal cream by RECTAL route twice daily. acetaminophen (TYLENOL) 500 mg tablet Take 2 tablets by mouth every 6 hours as needed for pain. clotrimazole (LOTRIMIN, CLOTRIM) 1 % cream APPLY TO AFFECTED AREA TWICE A DAY clarithromycin (BIAXIN) 500 mg Take 1 tablet by mouth every 12 hours for 10 days. benzonatate (TESSALON PERLE) 100 mg capsule Take 2 capsules by mouth three times daily as needed for up to 10 days. bismuth subsalicylate (PEPTO-BISMOL) 262 mg chew Take 1 tablet by mouth four times daily for 14 days. docusate sodium (COLACE) 100 mg capsule Take 1 capsule by mouth twice daily. Problem List: ACTIVE PROBLEM LIST Gastritis Due to Helicobacter Species - 11/26/2021 Pud (Peptic Ulcer Disease) - 11/26/2021 Hypertension, Essential - 11/26/2021 Hyperlipidemia, Mixed - 11/26/2021 Epigastric Pain - 10/30/2021 Obesity, Class II, Bmi 35-39.9 - 09/03/2018 Comment: -SCDs intrapartum and after delivery until ambulatory Migraine Without Aura and Without Status Migrainosus, Not Intractable - 07/07/2018 Review of Systems Constitutional: Negative for chills and fever. HENT: Positive for congestion, sinus pressure and sinus pain. Respiratory: Positive for cough. Negative for shortness of breath. Cardiovascular: Negative for chest pain and palpitations. Gastrointestinal: Negative for abdominal pain and nausea. Neurological: Negative for dizziness and weakness. Physical Exam Vitals and nursing note reviewed. Constitutional: General: She is not in acute distress. Appearance: She is well-developed. She is not diaphoretic. HENT: Head: Normocephalic and atraumatic. Eyes: General: Right eye: No discharge. Left eye: No discharge. Conjunctiva/sclera: Conjunctivae normal. Pupils: Pupils are equal, round, and reactive to light. Cardiovascular: Rate and Rhythm: Normal rate and regular rhythm. Heart sounds: Normal heart sounds. No murmur heard. No friction rub. No gallop. Pulmonary: Effort: Pulmonary effort is normal. No respiratory distress. Breath sounds: Normal breath sounds. No wheezing, rhonchi or rales. Musculoskeletal: General: No swelling. Normal range of motion. Cervical back: Normal range of motion and neck supple. Skin: General: Skin is warm and dry. Neurological: Mental Status: She is alert and oriented to person, place, and time. Mental status is at baseline. BP 136/92 Pulse 96 Temp 37.2 C (98.9 F) Ht 162.6 cm (5' 4) Wt 101.6 kg (224 lb) LMP 12/05/2021 (Exact Date) BMI 38.45 kg/m ASSESSMENT/PLAN: 1. Hypertension, essential - ICD9: 401.9, ICD10: I10 (primary diagnosis) - fair control, likely elevated today as she is sick - Continue current medication(s) - Encouraged dietary sodium restriction/DASH diet - Recommended regular aerobic exercise. - Recommend home blood pressure monitoring, to bring results in on next visit - Follow up in 1 month for BP recheck. - Goal of BP <130/80 - LISINOPRIL 10 MG TABLET 2. Bronchitis - ICD9: 490, ICD10: J40 Supportive care - CLARITHROMYCIN 500 MG TABLET - BENZONATATE 100 MG CAPSULE Shaun Carlin MD documented in this encounterMain [facility]04-26-[facility]22 History of Present illness Narrative* had bronchitis around January 08. was prescribed medication but later found out she was and had to discontinue. bronchitis is still present, cough and yellow mucus, worse at night, patient states she took 7 days of clindamycin she is also on lisinopril and p.o. vitamins. She is 6 para 4 1 * Cough worse at night with nasal discharge denies any fever, chest pain, shortness of breath, she caryn non-smoker denies any wheezing. [facility] Work Phone: 1(485) 384-850204-25-2022 Miscellaneous Notes* Telephone Encounter - Chelsea Winters Ma - 01/07/2022 10:38 AM EDT Patient phones requesting refills as follows: Pending Prescriptions Disp Refills SUMATRIPTAN 50 MG TABLET 12 tablet 5 Sig: TAKE 1 TABLET BY MOUTH NEEDED FOR MIGRAINE HEADACHE(SEE INSTRUCTIONS) THEA: Yes Please review and advise. Chelsea Winters Ma documented in this encounterMain [facility]03-14-[facility]22 History of Past illness Narrative* Problem Noted Date Resolved Date Gastritis due to Helicobacter species 11/26/2021 02/08/2022 PUD (peptic ulcer disease) 11/26/202102/08 Epigastric pain 10/30/2021 02/08/2022 Elevated blood pressure read ing without diagnosis of hypertension 10/30/2021 11/26/2021 Encounter for elective induction of labor 202008/18/2021 Overview: -GSB+, PCN allergy, Ancef in labor -Pitocin per protocol (halved x1) -amniotomy @1530 -epidural in -IUPC -FSE H/o 1 VAVD and SVDx2, most recent in 2010, largest 7lbs 9oz Growth US @ 36w5d, EFW 6lbs 9oz, 48% Negative NIPT History of MRSA infection 08/15/20212021 Overview: -patient reports history of multi-site staph skin infection, is unsure if MRSA or MSSA -will treat with vancomycin preoperatively if need for delivery Group B Streptococcus carrier, antepartum 202010/30/2021 Overview: Sensitive to Vanc headache in first trimester 02/09/2021 06/29/2021 Elderly multigravida in third trimester 01/13/20 21 10/30/2021 Overview: -negative NIPT 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 , antepartum, third trimester 01/12/2021 10/30/2021 Overview: -On Acyclovir since 36 weeks, compliant -SSE negative on admission -denies recent symptoms or outbreaks Bipolar disorder, in partial remission, most recent episode mixed 10/04/2019 08/15/2021 Pure hypercholesterolemia 11/02/20182020 Tobacco use disorder 10/30/2018 12/12/2020 Abdominal wall mass 08/11/2018 09/03/2018 ADHD (attention deficit hype ractivity disorder), combined type 08/11/2018 08/15/2021 Depression, major, recurrent, moderate 8 08/15/2021 Anxiety 07/07/2018 08/15/2021 Methamphetamine abuse 07/07/2018 04/26/2021 Marijuana abuse 07/07/2018 04/26/2021 documented as of this encounter (statuses as of 02/08/2022) [facility] Past illness Narrative* Problem Noted Date Resolved Date Gastritis due to Helicobacter species 11/26/2021 02/08/2022 PUD (peptic ulcer disease) 11/26/202102/08 Epigastric pain 10/30/2021 02/08/2022 Elevated blood pressure read ing without diagnosis of hypertension 10/30/2021 11/26/2021 Encounter for elective induction of labor 202008/18/2021 Overview: -GSB+, PCN allergy, Ancef in labor -Pitocin per protocol (halved x1) -amniotomy @1530 -epidural in -IUPC -FSE H/o 1 VAVD and SVDx2, most recent in 2010, largest 7lbs 9oz Growth US @ 36w5d, EFW 6lbs 9oz, 48% Negative NIPT History of MRSA infection 08/15/20212021 Overview: -patient reports history of multi-site staph skin infection, is unsure if MRSA or MSSA -will treat with vancomycin preoperatively if need for delivery Group B Streptococcus carrier, antepartum 202010/30/2021 Overview: Sensitive to Vanc headache in first trimester 02/09/2021 06/29/2021 Elderly multigravida in third trimester 01/13/20 21 10/30/2021 Overview: -negative NIPT 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 , antepartum, third trimester 01/12/2021 10/30/2021 Overview: -On Acyclovir since 36 weeks, compliant -SSE negative on admission -denies recent symptoms or outbreaks Bipolar disorder, in partial remission, most recent episode mixed 10/04/2019 08/15/2021 Pure hypercholesterolemia 11/02/20182020 Tobacco use disorder 10/30/2018 12/12/2020 Abdominal wall mass 08/11/2018 09/03/2018 ADHD (attention deficit hype ractivity disorder), combined type 08/11/2018 08/15/2021 Depression, major, recurrent, moderate 8 08/15/2021 Anxiety 07/07/2018 08/15/2021 Methamphetamine abuse 07/07/2018 04/26/2021 Marijuana abuse 07/07/2018 04/26/2021 documented as of this encounter (statuses as of 02/14/2022) [facility] Narrative* Problem Noted Date Resolved Date Gastritis due to Helicobacter species 11/26/2021 02/08/2022 PUD (peptic ulcer disease) 11/26/202102/08 Epigastric pain 10/30/2021 02/08/2022 Elevated blood pressure read ing without diagnosis of hypertension 10/30/2021 11/26/2021 Encounter for elective induction of labor 202008/18/2021 Overview: -GSB+, PCN allergy, Ancef in labor -Pitocin per protocol (halved x1) -amniotomy @1530 -epidural in -IUPC -FSE H/o 1 VAVD and SVDx2, most recent in 2010, largest 7lbs 9oz Growth US @ 36w5d, EFW 6lbs 9oz, 48% Negative NIPT History of MRSA infection 08/15/20212021 Overview: -patient reports history of multi-site staph skin infection, is unsure if MRSA or MSSA -will treat with vancomycin preoperatively if need for delivery Group B Streptococcus carrier, antepartum 202010/30/2021 Overview: Sensitive to Vanc headache in first trimester 02/09/2021 06/29/2021 Elderly multigravida in third trimester 01/13/20 21 10/30/2021 Overview: -negative NIPT 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 , antepartum, third trimester 01/12/2021 10/30/2021 Overview: -On Acyclovir since 36 weeks, compliant -SSE negative on admission -denies recent symptoms or outbreaks Bipolar disorder, in partial remission, most recent episode mixed 10/04/2019 08/15/2021 Pure hypercholesterolemia 11/02/20182020 Tobacco use disorder 10/30/2018 12/12/2020 Abdominal wall mass 08/11/2018 09/03/2018 ADHD (attention deficit hype ractivity disorder), combined type 08/11/2018 08/15/2021 Depression, major, recurrent, moderate 8 08/15/2021 Anxiety 07/07/2018 08/15/2021 Methamphetamine abuse 07/07/2018 04/26/2021 Marijuana abuse 07/07/2018 04/26/2021 documented as of this encounter (statuses as of 02/14/2022) [facility] Narrative* Problem Noted Date Resolved Date Gastritis due to Helicobacter species 11/26/2021 02/08/2022 PUD (peptic ulcer disease) 11/26/202102/08 Epigastric pain 10/30/2021 02/08/2022 Elevated blood pressure read ing without diagnosis of hypertension 10/30/2021 11/26/2021 Encounter for elective induction of labor 202008/18/2021 Overview: -GSB+, PCN allergy, Ancef in labor -Pitocin per protocol (halved x1) -amniotomy @1530 -epidural in -IUPC -FSE H/o 1 VAVD and SVDx2, most recent in 2010, largest 7lbs 9oz Growth US @ 36w5d, EFW 6lbs 9oz, 48% Negative NIPT History of MRSA infection 08/15/20212021 Overview: -patient reports history of multi-site staph skin infection, is unsure if MRSA or MSSA -will treat with vancomycin preoperatively if need for delivery Group B Streptococcus carrier, antepartum 202010/30/2021 Overview: Sensitive to Vanc headache in first trimester 02/09/2021 06/29/2021 Elderly multigravida in third trimester 01/13/20 21 10/30/2021 Overview: -negative NIPT 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 , antepartum, third trimester 01/12/2021 10/30/2021 Overview: -On Acyclovir since 36 weeks, compliant -SSE negative on admission -denies recent symptoms or outbreaks Bipolar disorder, in partial remission, most recent episode mixed 10/04/2019 08/15/2021 Pure hypercholesterolemia 11/02/20182020 Tobacco use disorder 10/30/2018 12/12/2020 Abdominal wall mass 08/11/2018 09/03/2018 ADHD (attention deficit hype ractivity disorder), combined type 08/11/2018 08/15/2021 Depression, major, recurrent, moderate 8 08/15/2021 Anxiety 07/07/2018 08/15/2021 Methamphetamine abuse 07/07/2018 04/26/2021 Marijuana abuse 07/07/2018 04/26/2021 documented as of this encounter (statuses as of 02/21/2022) [facility] Narrative* Problem Noted Date Resolved Date Gastritis due to Helicobacter species 11/26/2021 02/08/2022 PUD (peptic ulcer disease) 11/26/202102/08 Epigastric pain 10/30/2021 02/08/2022 Elevated blood pressure read ing without diagnosis of hypertension 10/30/2021 11/26/2021 Encounter for elective induction of labor 202008/18/2021 Overview: -GSB+, PCN allergy, Ancef in labor -Pitocin per protocol (halved x1) -amniotomy @1530 -epidural in -IUPC -FSE H/o 1 VAVD and SVDx2, most recent in 2010, largest 7lbs 9oz Growth US @ 36w5d, EFW 6lbs 9oz, 48% Negative NIPT History of MRSA infection 08/15/20212021 Overview: -patient reports history of multi-site staph skin infection, is unsure if MRSA or MSSA -will treat with vancomycin preoperatively if need for delivery Group B Streptococcus carrier, antepartum 202010/30/2021 Overview: Sensitive to Vanc headache in first trimester 02/09/2021 06/29/2021 Elderly multigravida in third trimester 01/13/20 21 10/30/2021 Overview: -negative NIPT 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 , antepartum, third trimester 01/12/2021 10/30/2021 Overview: -On Acyclovir since 36 weeks, compliant -SSE negative on admission -denies recent symptoms or outbreaks Bipolar disorder, in partial remission, most recent episode mixed 10/04/2019 08/15/2021 Pure hypercholesterolemia 11/02/20182020 Tobacco use disorder 10/30/2018 12/12/2020 Abdominal wall mass 08/11/2018 09/03/2018 ADHD (attention deficit hype ractivity disorder), combined type 08/11/2018 08/15/2021 Depression, major, recurrent, moderate 8 08/15/2021 Anxiety 07/07/2018 08/15/2021 Methamphetamine abuse 07/07/2018 04/26/2021 Marijuana abuse 07/07/2018 04/26/2021 documented as of this encounter (statuses as of 03/11/2022) [facility] Narrative* Problem Noted Date Resolved Date Gastritis due to Helicobacter species 11/26/2021 02/08/2022 PUD (peptic ulcer disease) 11/26/202102/08 Epigastric pain 10/30/2021 02/08/2022 Elevated blood pressure read ing without diagnosis of hypertension 10/30/2021 11/26/2021 Encounter for elective induction of labor 202008/18/2021 Overview: -GSB+, PCN allergy, Ancef in labor -Pitocin per protocol (halved x1) -amniotomy @1530 -epidural in -IUPC -FSE H/o 1 VAVD and SVDx2, most recent in 2010, largest 7lbs 9oz Growth US @ 36w5d, EFW 6lbs 9oz, 48% Negative NIPT History of MRSA infection 08/15/20212021 Overview: -patient reports history of multi-site staph skin infection, is unsure if MRSA or MSSA -will treat with vancomycin preoperatively if need for delivery Group B Streptococcus carrier, antepartum 202010/30/2021 Overview: Sensitive to Vanc headache in first trimester 02/09/2021 06/29/2021 Elderly multigravida in third trimester 01/13/20 21 10/30/2021 Overview: -negative NIPT 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 , antepartum, third trimester 01/12/2021 10/30/2021 Overview: -On Acyclovir since 36 weeks, compliant -SSE negative on admission -denies recent symptoms or outbreaks Bipolar disorder, in partial remission, most recent episode mixed 10/04/2019 08/15/2021 Pure hypercholesterolemia 11/02/20182020 Tobacco use disorder 10/30/2018 12/12/2020 Abdominal wall mass 08/11/2018 09/03/2018 ADHD (attention deficit hype ractivity disorder), combined type 08/11/2018 08/15/2021 Depression, major, recurrent, moderate 8 08/15/2021 Anxiety 07/07/2018 08/15/2021 Methamphetamine abuse 07/07/2018 04/26/2021 Marijuana abuse 07/07/2018 04/26/2021 documented as of this encounter (statuses as of 03/25/2022) [facility] Narrative* Problem Noted Date Resolved Date Gastritis due to Helicobacter species 11/26/2021 02/08/2022 PUD (peptic ulcer disease) 11/26/202102/08 Epigastric pain 10/30/2021 02/08/2022 Elevated blood pressure read ing without diagnosis of hypertension 10/30/2021 11/26/2021 Encounter for elective induction of labor 202008/18/2021 Overview: -GSB+, PCN allergy, Ancef in labor -Pitocin per protocol (halved x1) -amniotomy @1530 -epidural in -IUPC -FSE H/o 1 VAVD and SVDx2, most recent in 2010, largest 7lbs 9oz Growth US @ 36w5d, EFW 6lbs 9oz, 48% Negative NIPT History of MRSA infection 08/15/20212021 Overview: -patient reports history of multi-site staph skin infection, is unsure if MRSA or MSSA -will treat with vancomycin preoperatively if need for delivery Group B Streptococcus carrier, antepartum 202010/30/2021 Overview: Sensitive to Vanc headache in first trimester 02/09/2021 06/29/2021 Elderly multigravida in third trimester 01/13/20 21 10/30/2021 Overview: -negative NIPT 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 , antepartum, third trimester 01/12/2021 10/30/2021 Overview: -On Acyclovir since 36 weeks, compliant -SSE negative on admission -denies recent symptoms or outbreaks Bipolar disorder, in partial remission, most recent episode mixed 10/04/2019 08/15/2021 Pure hypercholesterolemia 11/02/20182020 Tobacco use disorder 10/30/2018 12/12/2020 Abdominal wall mass 08/11/2018 09/03/2018 ADHD (attention deficit hype ractivity disorder), combined type 08/11/2018 08/15/2021 Depression, major, recurrent, moderate 8 08/15/2021 Anxiety 07/07/2018 08/15/2021 Methamphetamine abuse 07/07/2018 04/26/2021 Marijuana abuse 07/07/2018 04/26/2021 documented as of this encounter (statuses as of 04/05/2022) [facility]03-14-2022 History of Past illness Narrative* Problem Noted Date Resolved Date Gastritis due to Helicobacter species 11/26/2021 02/08/2022 PUD (peptic ulcer disease) 11/26/202102/08 Epigastric pain 10/30/2021 02/08/2022 Elevated blood pressure read ing without diagnosis of hypertension 10/30/2021 11/26/2021 Encounter for elective induction of labor 202008/18/2021 Overview: -GSB+, PCN allergy, Ancef in labor -Pitocin per protocol (halved x1) -amniotomy @1530 -epidural in -IUPC -FSE H/o 1 VAVD and SVDx2, most recent in 2010, largest 7lbs 9oz Growth US @ 36w5d, EFW 6lbs 9oz, 48% Negative NIPT History of MRSA infection 08/15/20212021 Overview: -patient reports history of multi-site staph skin infection, is unsure if MRSA or MSSA -will treat with vancomycin preoperatively if need for delivery Group B Streptococcus carrier, antepartum 202010/30/2021 Overview: Sensitive to Vanc headache in first trimester 02/09/2021 06/29/2021 Elderly multigravida in third trimester 01/13/20 21 10/30/2021 Overview: -negative NIPT 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 , antepartum, third trimester 01/12/2021 10/30/2021 Overview: -On Acyclovir since 36 weeks, compliant -SSE negative on admission -denies recent symptoms or outbreaks Bipolar disorder, in partial remission, most recent episode mixed 10/04/2019 08/15/2021 Pure hypercholesterolemia 11/02/20182020 Tobacco use disorder 10/30/2018 12/12/2020 Abdominal wall mass 08/11/2018 09/03/2018 ADHD (attention deficit hype ractivity disorder), combined type 08/11/2018 08/15/2021 Depression, major, recurrent, moderate 8 08/15/2021 Anxiety 07/07/2018 08/15/2021 Methamphetamine abuse 07/07/2018 04/26/2021 Marijuana abuse 07/07/2018 04/26/2021 documented as of this encounter (statuses as of 04/05/2022) [facility] History of Past illness Narrative* Problem Noted Date Resolved Date Gastritis due to Helicobacter species 11/26/2021 02/08/2022 PUD (peptic ulcer disease) 11/26/202102/08 Epigastric pain 10/30/2021 02/08/2022 Elevated blood pressure read ing without diagnosis of hypertension 10/30/2021 11/26/2021 Encounter for elective induction of labor 202008/18/2021 Overview: -GSB+, PCN allergy, Ancef in labor -Pitocin per protocol (halved x1) -amniotomy @1530 -epidural in -IUPC -FSE H/o 1 VAVD and SVDx2, most recent in 2010, largest 7lbs 9oz Growth US @ 36w5d, EFW 6lbs 9oz, 48% Negative NIPT History of MRSA infection 08/15/20212021 Overview: -patient reports history of multi-site staph skin infection, is unsure if MRSA or MSSA -will treat with vancomycin preoperatively if need for delivery Group B Streptococcus carrier, antepartum 202010/30/2021 Overview: Sensitive to Vanc headache in first trimester 02/09/2021 06/29/2021 Elderly multigravida in third trimester 01/13/20 21 10/30/2021 Overview: -negative NIPT 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 , antepartum, third trimester 01/12/2021 10/30/2021 Overview: -On Acyclovir since 36 weeks, compliant -SSE negative on admission -denies recent symptoms or outbreaks Bipolar disorder, in partial remission, most recent episode mixed 10/04/2019 08/15/2021 Pure hypercholesterolemia 11/02/20182020 Tobacco use disorder 10/30/2018 12/12/2020 Abdominal wall mass 08/11/2018 09/03/2018 ADHD (attention deficit hype ractivity disorder), combined type 08/11/2018 08/15/2021 Depression, major, recurrent, moderate 8 08/15/2021 Anxiety 07/07/2018 08/15/2021 Methamphetamine abuse 07/07/2018 04/26/2021 Marijuana abuse 07/07/2018 04/26/2021 documented as of this encounter (statuses as of 04/16/2022) [facility] History of Past illness Narrative* Problem Noted Date Resolved Date Gastritis due to Helicobacter species 11/26/2021 02/08/2022 PUD (peptic ulcer disease) 11/26/202102/08 Epigastric pain 10/30/2021 02/08/2022 Elevated blood pressure read ing without diagnosis of hypertension 10/30/2021 11/26/2021 Encounter for elective induction of labor 202008/18/2021 Overview: -GSB+, PCN allergy, Ancef in labor -Pitocin per protocol (halved x1) -amniotomy @1530 -epidural in -IUPC -FSE H/o 1 VAVD and SVDx2, most recent in 2010, largest 7lbs 9oz Growth US @ 36w5d, EFW 6lbs 9oz, 48% Negative NIPT History of MRSA infection 08/15/20212021 Overview: -patient reports history of multi-site staph skin infection, is unsure if MRSA or MSSA -will treat with vancomycin preoperatively if need for delivery Group B Streptococcus carrier, antepartum 202010/30/2021 Overview: Sensitive to Vanc headache in first trimester 02/09/2021 06/29/2021 Elderly multigravida in third trimester 01/13/20 21 10/30/2021 Overview: -negative NIPT 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 , antepartum, third trimester 01/12/2021 10/30/2021 Overview: -On Acyclovir since 36 weeks, compliant -SSE negative on admission -denies recent symptoms or outbreaks Bipolar disorder, in partial remission, most recent episode mixed 10/04/2019 08/15/2021 Pure hypercholesterolemia 11/02/20182020 Tobacco use disorder 10/30/2018 12/12/2020 Abdominal wall mass 08/11/2018 09/03/2018 ADHD (attention deficit hype ractivity disorder), combined type 08/11/2018 08/15/2021 Depression, major, recurrent, moderate 8 08/15/2021 Anxiety 07/07/2018 08/15/2021 Methamphetamine abuse 07/07/2018 04/26/2021 Marijuana abuse 07/07/2018 04/26/2021 documented as of this encounter (statuses as of 04/24/2022) [facility] History of Past illness Narrative* Problem Noted Date Resolved Date Gastritis due to Helicobacter species 11/26/2021 02/08/2022 PUD (peptic ulcer disease) 11/26/202102/08 Epigastric pain 10/30/2021 02/08/2022 Elevated blood pressure read ing without diagnosis of hypertension 10/30/2021 11/26/2021 Encounter for elective induction of labor 202008/18/2021 Overview: -GSB+, PCN allergy, Ancef in labor -Pitocin per protocol (halved x1) -amniotomy @1530 -epidural in -IUPC -FSE H/o 1 VAVD and SVDx2, most recent in 2010, largest 7lbs 9oz Growth US @ 36w5d, EFW 6lbs 9oz, 48% Negative NIPT History of MRSA infection 08/15/20212021 Overview: -patient reports history of multi-site staph skin infection, is unsure if MRSA or MSSA -will treat with vancomycin preoperatively if need for delivery Group B Streptococcus carrier, antepartum 202010/30/2021 Overview: Sensitive to Vanc headache in first trimester 02/09/2021 06/29/2021 Elderly multigravida in third trimester 01/13/20 21 10/30/2021 Overview: -negative NIPT 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 , antepartum, third trimester 01/12/2021 10/30/2021 Overview: -On Acyclovir since 36 weeks, compliant -SSE negative on admission -denies recent symptoms or outbreaks Bipolar disorder, in partial remission, most recent episode mixed 10/04/2019 08/15/2021 Pure hypercholesterolemia 11/02/20182020 Tobacco use disorder 10/30/2018 12/12/2020 Abdominal wall mass 08/11/2018 09/03/2018 ADHD (attention deficit hype ractivity disorder), combined type 08/11/2018 08/15/2021 Depression, major, recurrent, moderate 8 08/15/2021 Anxiety 07/07/2018 08/15/2021 Methamphetamine abuse 07/07/2018 04/26/2021 Marijuana abuse 07/07/2018 04/26/2021 documented as of this encounter (statuses as of 04/29/2022) [facility] History of Past illness Narrative* Problem Noted Date Resolved Date Gastritis due to Helicobacter species 11/26/2021 02/08/2022 PUD (peptic ulcer disease) 11/26/202102/08 Epigastric pain 10/30/2021 02/08/2022 Elevated blood pressure read ing without diagnosis of hypertension 10/30/2021 11/26/2021 Encounter for elective induction of labor 202008/18/2021 Overview: -GSB+, PCN allergy, Ancef in labor -Pitocin per protocol (halved x1) -amniotomy @1530 -epidural in -IUPC -FSE H/o 1 VAVD and SVDx2, most recent in 2010, largest 7lbs 9oz Growth US @ 36w5d, EFW 6lbs 9oz, 48% Negative NIPT History of MRSA infection 08/15/20212021 Overview: -patient reports history of multi-site staph skin infection, is unsure if MRSA or MSSA -will treat with vancomycin preoperatively if need for delivery Group B Streptococcus carrier, antepartum 202010/30/2021 Overview: Sensitive to Vanc headache in first trimester 02/09/2021 06/29/2021 Elderly multigravida in third trimester 01/13/20 21 10/30/2021 Overview: -negative NIPT 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 , antepartum, third trimester 01/12/2021 10/30/2021 Overview: -On Acyclovir since 36 weeks, compliant -SSE negative on admission -denies recent symptoms or outbreaks Bipolar disorder, in partial remission, most recent episode mixed 10/04/2019 08/15/2021 Pure hypercholesterolemia 11/02/20182020 Tobacco use disorder 10/30/2018 12/12/2020 Abdominal wall mass 08/11/2018 09/03/2018 ADHD (attention deficit hype ractivity disorder), combined type 08/11/2018 08/15/2021 Depression, major, recurrent, moderate 8 08/15/2021 Anxiety 07/07/2018 08/15/2021 Methamphetamine abuse 07/07/2018 04/26/2021 Marijuana abuse 07/07/2018 04/26/2021 documented as of this encounter (statuses as of 05/03/2022) [facility] History of Past illness Narrative* Problem Noted Date Resolved Date Gastritis due to Helicobacter species 11/26/2021 02/08/2022 Epigastric pain 10/30/2021 02/08/2022 Elevated blood pressure read ing without diagnosis of hypertension 10/30/2021 11/26/2021 Encounter for elective induction of labor 202008/18/2021 Overview: -GSB+, PCN allergy, Ancef in labor -Pitocin per protocol (halved x1) -amniotomy @1530 -epidural in -IUPC -FSE H/o 1 VAVD and SVDx2, most recent in 2010, largest 7lbs 9oz Growth US @ 36w5d, EFW 6lbs 9oz, 48% Negative NIPT History of MRSA infection 08/15/20212021 Overview: -patient reports history of multi-site staph skin infection, is unsure if MRSA or MSSA -will treat with vancomycin preoperatively if need for delivery Group B Streptococcus carrier, antepartum 202010/30/2021 Overview: Sensitive to Vanc headache in first trimester 02/09/2021 06/29/2021 Elderly multigravida in third trimester 01/13/20 21 10/30/2021 Overview: -negative NIPT 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 , antepartum, third trimester 01/12/2021 10/30/2021 Overview: -On Acyclovir since 36 weeks, compliant -SSE negative on admission -denies recent symptoms or outbreaks Bipolar disorder, in partial remission, most recent episode mixed 10/04/2019 08/15/2021 Pure hypercholesterolemia 11/02/20182020 Tobacco use disorder 10/30/2018 12/12/2020 Abdominal wall mass 08/11/2018 09/03/2018 ADHD (attention deficit hype ractivity disorder), combined type 08/11/2018 08/15/2021 Depression, major, recurrent, moderate 8 08/15/2021 Anxiety 07/07/2018 08/15/2021 Methamphetamine abuse 07/07/2018 04/26/2021 Marijuana abuse 07/07/2018 04/26/2021 documented as of this encounter (statuses as of 05/06/2022) [facility] History of Past illness Narrative* Problem Noted Date Resolved Date Gastritis due to Helicobacter species 11/26/2021 02/08/2022 Epigastric pain 10/30/2021 02/08/2022 Elevated blood pressure read ing without diagnosis of hypertension 10/30/2021 11/26/2021 Encounter for elective induction of labor 202008/18/2021 Overview: -GSB+, PCN allergy, Ancef in labor -Pitocin per protocol (halved x1) -amniotomy @1530 -epidural in -IUPC -FSE H/o 1 VAVD and SVDx2, most recent in 2010, largest 7lbs 9oz Growth US @ 36w5d, EFW 6lbs 9oz, 48% Negative NIPT History of MRSA infection 08/15/20212021 Overview: -patient reports history of multi-site staph skin infection, is unsure if MRSA or MSSA -will treat with vancomycin preoperatively if need for delivery Group B Streptococcus carrier, antepartum 202010/30/2021 Overview: Sensitive to Vanc headache in first trimester 02/09/2021 06/29/2021 Elderly multigravida in third trimester 01/13/20 21 10/30/2021 Overview: -negative NIPT 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 , antepartum, third trimester 01/12/2021 10/30/2021 Overview: -On Acyclovir since 36 weeks, compliant -SSE negative on admission -denies recent symptoms or outbreaks Bipolar disorder, in partial remission, most recent episode mixed 10/04/2019 08/15/2021 Pure hypercholesterolemia 11/02/20182020 Tobacco use disorder 10/30/2018 12/12/2020 Abdominal wall mass 08/11/2018 09/03/2018 ADHD (attention deficit hype ractivity disorder), combined type 08/11/2018 08/15/2021 Depression, major, recurrent, moderate 8 08/15/2021 Anxiety 07/07/2018 08/15/2021 Methamphetamine abuse 07/07/2018 04/26/2021 Marijuana abuse 07/07/2018 04/26/2021 documented as of this encounter (statuses as of 05/07/2022) [facility] History of Past illness Narrative* Problem Noted Date Resolved Date Gastritis due to Helicobacter species 11/26/2021 02/08/2022 Epigastric pain 10/30/2021 02/08/2022 Elevated blood pressure read ing without diagnosis of hypertension 10/30/2021 11/26/2021 Encounter for elective induction of labor 202008/18/2021 Overview: -GSB+, PCN allergy, Ancef in labor -Pitocin per protocol (halved x1) -amniotomy @1530 -epidural in -IUPC -FSE H/o 1 VAVD and SVDx2, most recent in 2010, largest 7lbs 9oz Growth US @ 36w5d, EFW 6lbs 9oz, 48% Negative NIPT History of MRSA infection 08/15/20212021 Overview: -patient reports history of multi-site staph skin infection, is unsure if MRSA or MSSA -will treat with vancomycin preoperatively if need for delivery Group B Streptococcus carrier, antepartum 202010/30/2021 Overview: Sensitive to Vanc headache in first trimester 02/09/2021 06/29/2021 Elderly multigravida in third trimester 01/13/20 21 10/30/2021 Overview: -negative NIPT 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 , antepartum, third trimester 01/12/2021 10/30/2021 Overview: -On Acyclovir since 36 weeks, compliant -SSE negative on admission -denies recent symptoms or outbreaks Bipolar disorder, in partial remission, most recent episode mixed 10/04/2019 08/15/2021 Pure hypercholesterolemia 11/02/20182020 Tobacco use disorder 10/30/2018 12/12/2020 Abdominal wall mass 08/11/2018 09/03/2018 ADHD (attention deficit hype ractivity disorder), combined type 08/11/2018 08/15/2021 Depression, major, recurrent, moderate 8 08/15/2021 Anxiety 07/07/2018 08/15/2021 Methamphetamine abuse 07/07/2018 04/26/2021 Marijuana abuse 07/07/2018 04/26/2021 documented as of this encounter (statuses as of 05/10/2022) [facility] History of Past illness Narrative* Problem Noted Date Resolved Date Gastritis due to Helicobacter species 11/26/2021 02/08/2022 Epigastric pain 10/30/2021 02/08/2022 Elevated blood pressure read ing without diagnosis of hypertension 10/30/2021 11/26/2021 Encounter for elective induction of labor 202008/18/2021 Overview: -GSB+, PCN allergy, Ancef in labor -Pitocin per protocol (halved x1) -amniotomy @1530 -epidural in -IUPC -FSE H/o 1 VAVD and SVDx2, most recent in 2010, largest 7lbs 9oz Growth US @ 36w5d, EFW 6lbs 9oz, 48% Negative NIPT History of MRSA infection 08/15/20212021 Overview: -patient reports history of multi-site staph skin infection, is unsure if MRSA or MSSA -will treat with vancomycin preoperatively if need for delivery Group B Streptococcus carrier, antepartum 202010/30/2021 Overview: Sensitive to Vanc headache in first trimester 02/09/2021 06/29/2021 Elderly multigravida in third trimester 01/13/20 21 10/30/2021 Overview: -negative NIPT 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 , antepartum, third trimester 01/12/2021 10/30/2021 Overview: -On Acyclovir since 36 weeks, compliant -SSE negative on admission -denies recent symptoms or outbreaks Bipolar disorder, in partial remission, most recent episode mixed 10/04/2019 08/15/2021 Pure hypercholesterolemia 11/02/20182020 Tobacco use disorder 10/30/2018 12/12/2020 Abdominal wall mass 08/11/2018 09/03/2018 ADHD (attention deficit hype ractivity disorder), combined type 08/11/2018 08/15/2021 Depression, major, recurrent, moderate 8 08/15/2021 Anxiety 07/07/2018 08/15/2021 Methamphetamine abuse 07/07/2018 04/26/2021 Marijuana abuse 07/07/2018 04/26/2021 documented as of this encounter (statuses as of 05/21/2022) [facility] History of Past illness Narrative* Problem Noted Date Resolved Date Gastritis due to Helicobacter species 11/26/2021 02/08/2022 Epigastric pain 10/30/2021 02/08/2022 Elevated blood pressure read ing without diagnosis of hypertension 10/30/2021 11/26/2021 Encounter for elective induction of labor 202008/18/2021 Overview: -GSB+, PCN allergy, Ancef in labor -Pitocin per protocol (halved x1) -amniotomy @1530 -epidural in -IUPC -FSE H/o 1 VAVD and SVDx2, most recent in 2010, largest 7lbs 9oz Growth US @ 36w5d, EFW 6lbs 9oz, 48% Negative NIPT History of MRSA infection 08/15/20212021 Overview: -patient reports history of multi-site staph skin infection, is unsure if MRSA or MSSA -will treat with vancomycin preoperatively if need for delivery Group B Streptococcus carrier, antepartum 202010/30/2021 Overview: Sensitive to Vanc headache in first trimester 02/09/2021 06/29/2021 Elderly multigravida in third trimester 01/13/20 21 10/30/2021 Overview: -negative NIPT 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 , antepartum, third trimester 01/12/2021 10/30/2021 Overview: -On Acyclovir since 36 weeks, compliant -SSE negative on admission -denies recent symptoms or outbreaks Bipolar disorder, in partial remission, most recent episode mixed 10/04/2019 08/15/2021 Pure hypercholesterolemia 11/02/20182020 Tobacco use disorder 10/30/2018 12/12/2020 Abdominal wall mass 08/11/2018 09/03/2018 ADHD (attention deficit hype ractivity disorder), combined type 08/11/2018 08/15/2021 Depression, major, recurrent, moderate 8 08/15/2021 Anxiety 07/07/2018 08/15/2021 Methamphetamine abuse 07/07/2018 04/26/2021 Marijuana abuse 07/07/2018 04/26/2021 documented as of this encounter (statuses as of 05/21/2022) [facility] History of Past illness Narrative* Problem Noted Date Resolved Date Gastritis due to Helicobacter species 11/26/2021 02/08/2022 Epigastric pain 10/30/2021 02/08/2022 Elevated blood pressure read ing without diagnosis of hypertension 10/30/2021 11/26/2021 Encounter for elective induction of labor 202008/18/2021 Overview: -GSB+, PCN allergy, Ancef in labor -Pitocin per protocol (halved x1) -amniotomy @1530 -epidural in -IUPC -FSE H/o 1 VAVD and SVDx2, most recent in 2010, largest 7lbs 9oz Growth US @ 36w5d, EFW 6lbs 9oz, 48% Negative NIPT History of MRSA infection 08/15/20212021 Overview: -patient reports history of multi-site staph skin infection, is unsure if MRSA or MSSA -will treat with vancomycin preoperatively if need for delivery Group B Streptococcus carrier, antepartum 202010/30/2021 Overview: Sensitive to Vanc headache in first trimester 02/09/2021 06/29/2021 Elderly multigravida in third trimester 01/13/20 21 10/30/2021 Overview: -negative NIPT 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 , antepartum, third trimester 01/12/2021 10/30/2021 Overview: -On Acyclovir since 36 weeks, compliant -SSE negative on admission -denies recent symptoms or outbreaks Bipolar disorder, in partial remission, most recent episode mixed 10/04/2019 08/15/2021 Pure hypercholesterolemia 11/02/20182020 Tobacco use disorder 10/30/2018 12/12/2020 Abdominal wall mass 08/11/2018 09/03/2018 ADHD (attention deficit hype ractivity disorder), combined type 08/11/2018 08/15/2021 Depression, major, recurrent, moderate 8 08/15/2021 Anxiety 07/07/2018 08/15/2021 Methamphetamine abuse 07/07/2018 04/26/2021 Marijuana abuse 07/07/2018 04/26/2021 documented as of this encounter (statuses as of 06/10/2022) [facility] History of Past illness Narrative* Problem Noted Date Resolved Date Gastritis due to Helicobacter species 11/26/2021 02/08/2022 Epigastric pain 10/30/2021 02/08/2022 Elevated blood pressure read ing without diagnosis of hypertension 10/30/2021 11/26/2021 Encounter for elective induction of labor 202008/18/2021 Overview: -GSB+, PCN allergy, Ancef in labor -Pitocin per protocol (halved x1) -amniotomy @1530 -epidural in -IUPC -FSE H/o 1 VAVD and SVDx2, most recent in 2010, largest 7lbs 9oz Growth US @ 36w5d, EFW 6lbs 9oz, 48% Negative NIPT History of MRSA infection 08/15/20212021 Overview: -patient reports history of multi-site staph skin infection, is unsure if MRSA or MSSA -will treat with vancomycin preoperatively if need for delivery Group B Streptococcus carrier, antepartum 202010/30/2021 Overview: Sensitive to Vanc headache in first trimester 02/09/2021 06/29/2021 Elderly multigravida in third trimester 01/13/20 21 10/30/2021 Overview: -negative NIPT 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 , antepartum, third trimester 01/12/2021 10/30/2021 Overview: -On Acyclovir since 36 weeks, compliant -SSE negative on admission -denies recent symptoms or outbreaks Bipolar disorder, in partial remission, most recent episode mixed 10/04/2019 08/15/2021 Pure hypercholesterolemia 11/02/20182020 Tobacco use disorder 10/30/2018 12/12/2020 Abdominal wall mass 08/11/2018 09/03/2018 ADHD (attention deficit hype ractivity disorder), combined type 08/11/2018 08/15/2021 Depression, major, recurrent, moderate 8 08/15/2021 Anxiety 07/07/2018 08/15/2021 Methamphetamine abuse 07/07/2018 04/26/2021 Marijuana abuse 07/07/2018 04/26/2021 documented as of this encounter (statuses as of 06/19/2022) [facility] History of Past illness Narrative* Problem Noted Date Resolved Date Gastritis due to Helicobacter species 11/26/2021 02/08/2022 Epigastric pain 10/30/2021 02/08/2022 Elevated blood pressure read ing without diagnosis of hypertension 10/30/2021 11/26/2021 Encounter for elective induction of labor 202008/18/2021 Overview: -GSB+, PCN allergy, Ancef in labor -Pitocin per protocol (halved x1) -amniotomy @1530 -epidural in -IUPC -FSE H/o 1 VAVD and SVDx2, most recent in 2010, largest 7lbs 9oz Growth US @ 36w5d, EFW 6lbs 9oz, 48% Negative NIPT History of MRSA infection 08/15/20212021 Overview: -patient reports history of multi-site staph skin infection, is unsure if MRSA or MSSA -will treat with vancomycin preoperatively if need for delivery Group B Streptococcus carrier, antepartum 202010/30/2021 Overview: Sensitive to Vanc headache in first trimester 02/09/2021 06/29/2021 Elderly multigravida in third trimester 01/13/20 21 10/30/2021 Overview: -negative NIPT 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 , antepartum, third trimester 01/12/2021 10/30/2021 Overview: -On Acyclovir since 36 weeks, compliant -SSE negative on admission -denies recent symptoms or outbreaks Bipolar disorder, in partial remission, most recent episode mixed 10/04/2019 08/15/2021 Pure hypercholesterolemia 11/02/20182020 Tobacco use disorder 10/30/2018 12/12/2020 Abdominal wall mass 08/11/2018 09/03/2018 ADHD (attention deficit hype ractivity disorder), combined type 08/11/2018 08/15/2021 Depression, major, recurrent, moderate 8 08/15/2021 Anxiety 07/07/2018 08/15/2021 Methamphetamine abuse 07/07/2018 04/26/2021 Marijuana abuse 07/07/2018 04/26/2021 documented as of this encounter (statuses as of 06/21/2022) [facility] History of Past illness Narrative* Problem Noted Date Resolved Date Gastritis due to Helicobacter species 11/26/2021 02/08/2022 Epigastric pain 10/30/2021 02/08/2022 Elevated blood pressure read ing without diagnosis of hypertension 10/30/2021 11/26/2021 Encounter for elective induction of labor 202008/18/2021 Overview: -GSB+, PCN allergy, Ancef in labor -Pitocin per protocol (halved x1) -amniotomy @1530 -epidural in -IUPC -FSE H/o 1 VAVD and SVDx2, most recent in 2010, largest 7lbs 9oz Growth US @ 36w5d, EFW 6lbs 9oz, 48% Negative NIPT History of MRSA infection 08/15/20212021 Overview: -patient reports history of multi-site staph skin infection, is unsure if MRSA or MSSA -will treat with vancomycin preoperatively if need for delivery Group B Streptococcus carrier, antepartum 202010/30/2021 Overview: Sensitive to Vanc headache in first trimester 02/09/2021 06/29/2021 Elderly multigravida in third trimester 01/13/20 21 10/30/2021 Overview: -negative NIPT 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 , antepartum, third trimester 01/12/2021 10/30/2021 Overview: -On Acyclovir since 36 weeks, compliant -SSE negative on admission -denies recent symptoms or outbreaks Bipolar disorder, in partial remission, most recent episode mixed 10/04/2019 08/15/2021 Pure hypercholesterolemia 11/02/20182020 Tobacco use disorder 10/30/2018 12/12/2020 Abdominal wall mass 08/11/2018 09/03/2018 ADHD (attention deficit hype ractivity disorder), combined type 08/11/2018 08/15/2021 Depression, major, recurrent, moderate 8 08/15/2021 Anxiety 07/07/2018 08/15/2021 Methamphetamine abuse 07/07/2018 04/26/2021 Marijuana abuse 07/07/2018 04/26/2021 documented as of this encounter (statuses as of 06/25/2022) [facility]22 History of Past illness Narrative* Problem Noted Date Resolved Date Gastritis due to Helicobacter species 11/26/2021 02/08/2022 Epigastric pain 10/30/2021 02/08/2022 Elevated blood pressure read ing without diagnosis of hypertension 10/30/2021 11/26/2021 Encounter for elective induction of labor 202008/18/2021 Overview: -GSB+, PCN allergy, Ancef in labor -Pitocin per protocol (halved x1) -amniotomy @1530 -epidural in -IUPC -FSE H/o 1 VAVD and SVDx2, most recent in 2010, largest 7lbs 9oz Growth US @ 36w5d, EFW 6lbs 9oz, 48% Negative NIPT History of MRSA infection 08/15/20212021 Overview: -patient reports history of multi-site staph skin infection, is unsure if MRSA or MSSA -will treat with vancomycin preoperatively if need for delivery Group B Streptococcus carrier, antepartum 202010/30/2021 Overview: Sensitive to Vanc headache in first trimester 02/09/2021 06/29/2021 Elderly multigravida in third trimester 01/13/20 21 10/30/2021 Overview: -negative NIPT 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 , antepartum, third trimester 01/12/2021 10/30/2021 Overview: -On Acyclovir since 36 weeks, compliant -SSE negative on admission -denies recent symptoms or outbreaks Bipolar disorder, in partial remission, most recent episode mixed 10/04/2019 08/15/2021 Pure hypercholesterolemia 11/02/20182020 Tobacco use disorder 10/30/2018 12/12/2020 Abdominal wall mass 08/11/2018 09/03/2018 ADHD (attention deficit hype ractivity disorder), combined type 08/11/2018 08/15/2021 Depression, major, recurrent, moderate 8 08/15/2021 Anxiety 07/07/2018 08/15/2021 Methamphetamine abuse 07/07/2018 04/26/2021 Marijuana abuse 07/07/2018 04/26/2021 documented as of this encounter (statuses as of 06/28/2022) [facility] History of Past illness Narrative* Problem Noted Date Resolved Date Gastritis due to Helicobacter species 11/26/2021 02/08/2022 Epigastric pain 10/30/2021 02/08/2022 Elevated blood pressure read ing without diagnosis of hypertension 10/30/2021 11/26/2021 Encounter for elective induction of labor 202008/18/2021 Overview: -GSB+, PCN allergy, Ancef in labor -Pitocin per protocol (halved x1) -amniotomy @1530 -epidural in -IUPC -FSE H/o 1 VAVD and SVDx2, most recent in 2010, largest 7lbs 9oz Growth US @ 36w5d, EFW 6lbs 9oz, 48% Negative NIPT History of MRSA infection 08/15/20212021 Overview: -patient reports history of multi-site staph skin infection, is unsure if MRSA or MSSA -will treat with vancomycin preoperatively if need for delivery Group B Streptococcus carrier, antepartum 202010/30/2021 Overview: Sensitive to Vanc headache in first trimester 02/09/2021 06/29/2021 Elderly multigravida in third trimester 01/13/20 21 10/30/2021 Overview: -negative NIPT 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 , antepartum, third trimester 01/12/2021 10/30/2021 Overview: -On Acyclovir since 36 weeks, compliant -SSE negative on admission -denies recent symptoms or outbreaks Bipolar disorder, in partial remission, most recent episode mixed 10/04/2019 08/15/2021 Pure hypercholesterolemia 11/02/20182020 Tobacco use disorder 10/30/2018 12/12/2020 Abdominal wall mass 08/11/2018 09/03/2018 ADHD (attention deficit hype ractivity disorder), combined type 08/11/2018 08/15/2021 Depression, major, recurrent, moderate 8 08/15/2021 Anxiety 07/07/2018 08/15/2021 Methamphetamine abuse 07/07/2018 04/26/2021 Marijuana abuse 07/07/2018 04/26/2021 documented as of this encounter (statuses as of 07/01/2022) [facility] History of Past illness Narrative* Problem Noted Date Resolved Date Gastritis due to Helicobacter species 11/26/2021 02/08/2022 Epigastric pain 10/30/2021 02/08/2022 Elevated blood pressure read ing without diagnosis of hypertension 10/30/2021 11/26/2021 Encounter for elective induction of labor 202008/18/2021 Overview: -GSB+, PCN allergy, Ancef in labor -Pitocin per protocol (halved x1) -amniotomy @1530 -epidural in -IUPC -FSE H/o 1 VAVD and SVDx2, most recent in 2010, largest 7lbs 9oz Growth US @ 36w5d, EFW 6lbs 9oz, 48% Negative NIPT History of MRSA infection 08/15/20212021 Overview: -patient reports history of multi-site staph skin infection, is unsure if MRSA or MSSA -will treat with vancomycin preoperatively if need for delivery Group B Streptococcus carrier, antepartum 202010/30/2021 Overview: Sensitive to Vanc headache in first trimester 02/09/2021 06/29/2021 Elderly multigravida in third trimester 01/13/20 21 10/30/2021 Overview: -negative NIPT 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 , antepartum, third trimester 01/12/2021 10/30/2021 Overview: -On Acyclovir since 36 weeks, compliant -SSE negative on admission -denies recent symptoms or outbreaks Bipolar disorder, in partial remission, most recent episode mixed 10/04/2019 08/15/2021 Pure hypercholesterolemia 11/02/20182020 Tobacco use disorder 10/30/2018 12/12/2020 Abdominal wall mass 08/11/2018 09/03/2018 ADHD (attention deficit hype ractivity disorder), combined type 08/11/2018 08/15/2021 Depression, major, recurrent, moderate 8 08/15/2021 Anxiety 07/07/2018 08/15/2021 Methamphetamine abuse 07/07/2018 04/26/2021 Marijuana abuse 07/07/2018 04/26/2021 documented as of this encounter (statuses as of 07/05/2022) [facility] History of Past illness Narrative* Problem Noted Date Resolved Date Gastritis due to Helicobacter species 11/26/2021 02/08/2022 Epigastric pain 10/30/2021 02/08/2022 Elevated blood pressure read ing without diagnosis of hypertension 10/30/2021 11/26/2021 Encounter for elective induction of labor 202008/18/2021 Overview: -GSB+, PCN allergy, Ancef in labor -Pitocin per protocol (halved x1) -amniotomy @1530 -epidural in -IUPC -FSE H/o 1 VAVD and SVDx2, most recent in 2010, largest 7lbs 9oz Growth US @ 36w5d, EFW 6lbs 9oz, 48% Negative NIPT History of MRSA infection 08/15/20212021 Overview: -patient reports history of multi-site staph skin infection, is unsure if MRSA or MSSA -will treat with vancomycin preoperatively if need for delivery Group B Streptococcus carrier, antepartum 202010/30/2021 Overview: Sensitive to Vanc headache in first trimester 02/09/2021 06/29/2021 Elderly multigravida in third trimester 01/13/20 21 10/30/2021 Overview: -negative NIPT 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 , antepartum, third trimester 01/12/2021 10/30/2021 Overview: -On Acyclovir since 36 weeks, compliant -SSE negative on admission -denies recent symptoms or outbreaks Bipolar disorder, in partial remission, most recent episode mixed 10/04/2019 08/15/2021 Pure hypercholesterolemia 11/02/20182020 Tobacco use disorder 10/30/2018 12/12/2020 Abdominal wall mass 08/11/2018 09/03/2018 ADHD (attention deficit hype ractivity disorder), combined type 08/11/2018 08/15/2021 Depression, major, recurrent, moderate 8 08/15/2021 Anxiety 07/07/2018 08/15/2021 Methamphetamine abuse 07/07/2018 04/26/2021 Marijuana abuse 07/07/2018 04/26/2021 documented as of this encounter (statuses as of 07/05/2022) [facility] History of Past illness Narrative* Problem Noted Date Resolved Date Gastritis due to Helicobacter species 11/26/2021 02/08/2022 Epigastric pain 10/30/2021 02/08/2022 Elevated blood pressure read ing without diagnosis of hypertension 10/30/2021 11/26/2021 Encounter for elective induction of labor 202008/18/2021 Overview: -GSB+, PCN allergy, Ancef in labor -Pitocin per protocol (halved x1) -amniotomy @1530 -epidural in -IUPC -FSE H/o 1 VAVD and SVDx2, most recent in 2010, largest 7lbs 9oz Growth US @ 36w5d, EFW 6lbs 9oz, 48% Negative NIPT History of MRSA infection 08/15/20212021 Overview: -patient reports history of multi-site staph skin infection, is unsure if MRSA or MSSA -will treat with vancomycin preoperatively if need for delivery Group B Streptococcus carrier, antepartum 202010/30/2021 Overview: Sensitive to Vanc headache in first trimester 02/09/2021 06/29/2021 Elderly multigravida in third trimester 01/13/2010/30/2021 Overview: -negative NIPT 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 , antepartum, third trimester 01/12/2021 10/30/2021 Overview: -On Acyclovir since 36 weeks, compliant -SSE negative on admission -denies recent symptoms or outbreaks Bipolar disorder, in partial remission, most recent episode mixed 10/04/2019 08/15/2021 Pure hypercholesterolemia 11/02/20182020 Tobacco use disorder 10/30/2018 12/12/2020 Abdominal wall mass 08/11/2018 09/03/2018 ADHD (attention deficit hype ractivity disorder), combined type 08/11/2018 08/15/2021 Depression, major, recurrent, moderate 8 08/15/2021 Anxiety 07/07/2018 08/15/2021 Methamphetamine abuse 07/07/2018 04/26/2021 Marijuana abuse 07/07/2018 04/26/2021 documented as of this encounter (statuses as of 07/05/2022) [facility] History of Past illness Narrative* Problem Noted Date Resolved Date Gastritis due to Helicobacter species 11/26/2021 02/08/2022 Epigastric pain 10/30/2021 02/08/2022 Elevated blood pressure read ing without diagnosis of hypertension 10/30/2021 11/26/2021 Encounter for elective induction of labor 202008/18/2021 Overview: -GSB+, PCN allergy, Ancef in labor -Pitocin per protocol (halved x1) -amniotomy @1530 -epidural in -IUPC -FSE H/o 1 VAVD and SVDx2, most recent in 2010, largest 7lbs 9oz Growth US @ 36w5d, EFW 6lbs 9oz, 48% Negative NIPT History of MRSA infection 08/15/20212021 Overview: -patient reports history of multi-site staph skin infection, is unsure if MRSA or MSSA -will treat with vancomycin preoperatively if need for delivery Group B Streptococcus carrier, antepartum 202010/30/2021 Overview: Sensitive to Vanc headache in first trimester 02/09/2021 06/29/2021 Elderly multigravida in third trimester 01/13/20 21 10/30/2021 Overview: -negative NIPT 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 , antepartum, third trimester 01/12/2021 10/30/2021 Overview: -On Acyclovir since 36 weeks, compliant -SSE negative on admission -denies recent symptoms or outbreaks Bipolar disorder, in partial remission, most recent episode mixed 10/04/2019 08/15/2021 Pure hypercholesterolemia 11/02/20182020 Tobacco use disorder 10/30/2018 12/12/2020 Abdominal wall mass 08/11/2018 09/03/2018 ADHD (attention deficit hype ractivity disorder), combined type 08/11/2018 08/15/2021 Depression, major, recurrent, moderate 8 08/15/2021 Anxiety 07/07/2018 08/15/2021 Methamphetamine abuse 07/07/2018 04/26/2021 Marijuana abuse 07/07/2018 04/26/2021 documented as of this encounter (statuses as of 07/18/2022) [facility] History of Past illness Narrative* Problem Noted Date Resolved Date Gastritis due to Helicobacter species 11/26/2021 02/08/2022 Epigastric pain 10/30/2021 02/08/2022 Elevated blood pressure read ing without diagnosis of hypertension 10/30/2021 11/26/2021 Encounter for elective induction of labor 202008/18/2021 Overview: -GSB+, PCN allergy, Ancef in labor -Pitocin per protocol (halved x1) -amniotomy @1530 -epidural in -IUPC -FSE H/o 1 VAVD and SVDx2, most recent in 2010, largest 7lbs 9oz Growth US @ 36w5d, EFW 6lbs 9oz, 48% Negative NIPT History of MRSA infection 08/15/20212021 Overview: -patient reports history of multi-site staph skin infection, is unsure if MRSA or MSSA -will treat with vancomycin preoperatively if need for delivery Group B Streptococcus carrier, antepartum 202010/30/2021 Overview: Sensitive to Vanc headache in first trimester 02/09/2021 06/29/2021 Elderly multigravida in third trimester 01/13/20 21 10/30/2021 Overview: -negative NIPT 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 , antepartum, third trimester 01/12/2021 10/30/2021 Overview: -On Acyclovir since 36 weeks, compliant -SSE negative on admission -denies recent symptoms or outbreaks Bipolar disorder, in partial remission, most recent episode mixed 10/04/2019 08/15/2021 Pure hypercholesterolemia 11/02/20182020 Tobacco use disorder 10/30/2018 12/12/2020 Abdominal wall mass 08/11/2018 09/03/2018 ADHD (attention deficit hype ractivity disorder), combined type 08/11/2018 08/15/2021 Depression, major, recurrent, moderate 8 08/15/2021 Anxiety 07/07/2018 08/15/2021 Methamphetamine abuse 07/07/2018 04/26/2021 Marijuana abuse 07/07/2018 04/26/2021 documented as of this encounter (statuses as of 07/19/2022) [facility] History of Past illness Narrative* Problem Noted Date Resolved Date Gastritis due to Helicobacter species 11/26/2021 02/08/2022 Epigastric pain 10/30/2021 02/08/2022 Elevated blood pressure read ing without diagnosis of hypertension 10/30/2021 11/26/2021 Encounter for elective induction of labor 202008/18/2021 Overview: -GSB+, PCN allergy, Ancef in labor -Pitocin per protocol (halved x1) -amniotomy @1530 -epidural in -IUPC -FSE H/o 1 VAVD and SVDx2, most recent in 2010, largest 7lbs 9oz Growth US @ 36w5d, EFW 6lbs 9oz, 48% Negative NIPT History of MRSA infection 08/15/20212021 Overview: -patient reports history of multi-site staph skin infection, is unsure if MRSA or MSSA -will treat with vancomycin preoperatively if need for delivery Group B Streptococcus carrier, antepartum 202010/30/2021 Overview: Sensitive to Vanc headache in first trimester 02/09/2021 06/29/2021 Elderly multigravida in third trimester 01/13/20 21 10/30/2021 Overview: -negative NIPT 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 , antepartum, third trimester 01/12/2021 10/30/2021 Overview: -On Acyclovir since 36 weeks, compliant -SSE negative on admission -denies recent symptoms or outbreaks Bipolar disorder, in partial remission, most recent episode mixed 10/04/2019 08/15/2021 Pure hypercholesterolemia 11/02/20182020 Tobacco use disorder 10/30/2018 12/12/2020 Abdominal wall mass 08/11/2018 09/03/2018 ADHD (attention deficit hype ractivity disorder), combined type 08/11/2018 08/15/2021 Depression, major, recurrent, moderate 8 08/15/2021 Anxiety 07/07/2018 08/15/2021 Methamphetamine abuse 07/07/2018 04/26/2021 Marijuana abuse 07/07/2018 04/26/2021 documented as of this encounter (statuses as of 07/19/2022) [facility] History of Past illness Narrative* Problem Noted Date Resolved Date Gastritis due to Helicobacter species 11/26/2021 02/08/2022 Epigastric pain 10/30/2021 02/08/2022 Elevated blood pressure read ing without diagnosis of hypertension 10/30/2021 11/26/2021 Encounter for elective induction of labor 202008/18/2021 Overview: -GSB+, PCN allergy, Ancef in labor -Pitocin per protocol (halved x1) -amniotomy @1530 -epidural in -IUPC -FSE H/o 1 VAVD and SVDx2, most recent in 2010, largest 7lbs 9oz Growth US @ 36w5d, EFW 6lbs 9oz, 48% Negative NIPT History of MRSA infection 08/15/20212021 Overview: -patient reports history of multi-site staph skin infection, is unsure if MRSA or MSSA -will treat with vancomycin preoperatively if need for delivery Group B Streptococcus carrier, antepartum 202010/30/2021 Overview: Sensitive to Vanc headache in first trimester 02/09/2021 06/29/2021 Elderly multigravida in third trimester 01/13/20 21 10/30/2021 Overview: -negative NIPT 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 , antepartum, third trimester 01/12/2021 10/30/2021 Overview: -On Acyclovir since 36 weeks, compliant -SSE negative on admission -denies recent symptoms or outbreaks Bipolar disorder, in partial remission, most recent episode mixed 10/04/2019 08/15/2021 Pure hypercholesterolemia 11/02/20182020 Tobacco use disorder 10/30/2018 12/12/2020 Abdominal wall mass 08/11/2018 09/03/2018 ADHD (attention deficit hype ractivity disorder), combined type 08/11/2018 08/15/2021 Depression, major, recurrent, moderate 8 08/15/2021 Anxiety 07/07/2018 08/15/2021 Methamphetamine abuse 07/07/2018 04/26/2021 Marijuana abuse 07/07/2018 04/26/2021 documented as of this encounter (statuses as of 07/31/2022) [facility] History of Past illness Narrative* Problem Noted Date Resolved Date Gastritis due to Helicobacter species 11/26/2021 02/08/2022 Epigastric pain 10/30/2021 02/08/2022 Elevated blood pressure read ing without diagnosis of hypertension 10/30/2021 11/26/2021 Encounter for elective induction of labor 202008/18/2021 Overview: -GSB+, PCN allergy, Ancef in labor -Pitocin per protocol (halved x1) -amniotomy @1530 -epidural in -IUPC -FSE H/o 1 VAVD and SVDx2, most recent in 2010, largest 7lbs 9oz Growth US @ 36w5d, EFW 6lbs 9oz, 48% Negative NIPT History of MRSA infection 08/15/20212021 Overview: -patient reports history of multi-site staph skin infection, is unsure if MRSA or MSSA -will treat with vancomycin preoperatively if need for delivery Group B Streptococcus carrier, antepartum 202010/30/2021 Overview: Sensitive to Vanc headache in first trimester 02/09/2021 06/29/2021 Elderly multigravida in third trimester 01/13/20 21 10/30/2021 Overview: -negative NIPT 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 , antepartum, third trimester 01/12/2021 10/30/2021 Overview: -On Acyclovir since 36 weeks, compliant -SSE negative on admission -denies recent symptoms or outbreaks Bipolar disorder, in partial remission, most recent episode mixed 10/04/2019 08/15/2021 Pure hypercholesterolemia 11/02/20182020 Tobacco use disorder 10/30/2018 12/12/2020 Abdominal wall mass 08/11/2018 09/03/2018 ADHD (attention deficit hype ractivity disorder), combined type 08/11/2018 08/15/2021 Depression, major, recurrent, moderate 8 08/15/2021 Anxiety 07/07/2018 08/15/2021 Methamphetamine abuse 07/07/2018 04/26/2021 Marijuana abuse 07/07/2018 04/26/2021 documented as of this encounter (statuses as of 08/02/2022) [facility] History of Past illness Narrative* Problem Noted Date Resolved Date Gastritis due to Helicobacter species 11/26/2021 02/08/2022 Epigastric pain 10/30/2021 02/08/2022 Elevated blood pressure read ing without diagnosis of hypertension 10/30/2021 11/26/2021 Encounter for elective induction of labor 202008/18/2021 Overview: -GSB+, PCN allergy, Ancef in labor -Pitocin per protocol (halved x1) -amniotomy @1530 -epidural in -IUPC -FSE H/o 1 VAVD and SVDx2, most recent in 2010, largest 7lbs 9oz Growth US @ 36w5d, EFW 6lbs 9oz, 48% Negative NIPT History of MRSA infection 08/15/20212021 Overview: -patient reports history of multi-site staph skin infection, is unsure if MRSA or MSSA -will treat with vancomycin preoperatively if need for delivery Group B Streptococcus carrier, antepartum 202010/30/2021 Overview: Sensitive to Vanc headache in first trimester 02/09/2021 06/29/2021 Elderly multigravida in third trimester 01/13/20 21 10/30/2021 Overview: -negative NIPT 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 , antepartum, third trimester 01/12/2021 10/30/2021 Overview: -On Acyclovir since 36 weeks, compliant -SSE negative on admission -denies recent symptoms or outbreaks Bipolar disorder, in partial remission, most recent episode mixed 10/04/2019 08/15/2021 Pure hypercholesterolemia 11/02/20182020 Tobacco use disorder 10/30/2018 12/12/2020 Abdominal wall mass 08/11/2018 09/03/2018 ADHD (attention deficit hype ractivity disorder), combined type 08/11/2018 08/15/2021 Depression, major, recurrent, moderate 8 08/15/2021 Anxiety 07/07/2018 08/15/2021 Methamphetamine abuse 07/07/2018 04/26/2021 Marijuana abuse 07/07/2018 04/26/2021 documented as of this encounter (statuses as of 08/02/2022) [facility] History of Past illness Narrative* Problem Noted Date Resolved Date Gastritis due to Helicobacter species 11/26/2021 02/08/2022 Epigastric pain 10/30/2021 02/08/2022 Elevated blood pressure read ing without diagnosis of hypertension 10/30/2021 11/26/2021 Encounter for elective induction of labor 202008/18/2021 Overview: -GSB+, PCN allergy, Ancef in labor -Pitocin per protocol (halved x1) -amniotomy @1530 -epidural in -IUPC -FSE H/o 1 VAVD and SVDx2, most recent in 2010, largest 7lbs 9oz Growth US @ 36w5d, EFW 6lbs 9oz, 48% Negative NIPT History of MRSA infection 08/15/20212021 Overview: -patient reports history of multi-site staph skin infection, is unsure if MRSA or MSSA -will treat with vancomycin preoperatively if need for delivery Group B Streptococcus carrier, antepartum 202010/30/2021 Overview: Sensitive to Vanc headache in first trimester 02/09/2021 06/29/2021 Elderly multigravida in third trimester 01/13/20 21 10/30/2021 Overview: -negative NIPT 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 , antepartum, third trimester 01/12/2021 10/30/2021 Overview: -On Acyclovir since 36 weeks, compliant -SSE negative on admission -denies recent symptoms or outbreaks Bipolar disorder, in partial remission, most recent episode mixed 10/04/2019 08/15/2021 Pure hypercholesterolemia 11/02/20182020 Tobacco use disorder 10/30/2018 12/12/2020 Abdominal wall mass 08/11/2018 09/03/2018 ADHD (attention deficit hype ractivity disorder), combined type 08/11/2018 08/15/2021 Depression, major, recurrent, moderate 8 08/15/2021 Anxiety 07/07/2018 08/15/2021 Methamphetamine abuse 07/07/2018 04/26/2021 Marijuana abuse 07/07/2018 04/26/2021 documented as of this encounter (statuses as of 08/06/2022) [facility] History of Past illness Narrative* Problem Noted Date Resolved Date Gastritis due to Helicobacter species 11/26/2021 02/08/2022 Epigastric pain 10/30/2021 02/08/2022 Elevated blood pressure read ing without diagnosis of hypertension 10/30/2021 11/26/2021 Encounter for elective induction of labor 202008/18/2021 Overview: -GSB+, PCN allergy, Ancef in labor -Pitocin per protocol (halved x1) -amniotomy @1530 -epidural in -IUPC -FSE H/o 1 VAVD and SVDx2, most recent in 2010, largest 7lbs 9oz Growth US @ 36w5d, EFW 6lbs 9oz, 48% Negative NIPT History of MRSA infection 08/15/20212021 Overview: -patient reports history of multi-site staph skin infection, is unsure if MRSA or MSSA -will treat with vancomycin preoperatively if need for delivery Group B Streptococcus carrier, antepartum 202010/30/2021 Overview: Sensitive to Vanc headache in first trimester 02/09/2021 06/29/2021 Elderly multigravida in third trimester 01/13/20 21 10/30/2021 Overview: -negative NIPT 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 , antepartum, third trimester 01/12/2021 10/30/2021 Overview: -On Acyclovir since 36 weeks, compliant -SSE negative on admission -denies recent symptoms or outbreaks Bipolar disorder, in partial remission, most recent episode mixed 10/04/2019 08/15/2021 Pure hypercholesterolemia 11/02/20182020 Tobacco use disorder 10/30/2018 12/12/2020 Abdominal wall mass 08/11/2018 09/03/2018 ADHD (attention deficit hype ractivity disorder), combined type 08/11/2018 08/15/2021 Depression, major, recurrent, moderate 8 08/15/2021 Anxiety 07/07/2018 08/15/2021 Methamphetamine abuse 07/07/2018 04/26/2021 Marijuana abuse 07/07/2018 04/26/2021 documented as of this encounter (statuses as of 08/06/2022) [facility] History of Past illness Narrative* Problem Noted Date Resolved Date Gastritis due to Helicobacter species 11/26/2021 02/08/2022 Epigastric pain 10/30/2021 02/08/2022 Elevated blood pressure read ing without diagnosis of hypertension 10/30/2021 11/26/2021 Encounter for elective induction of labor 202008/18/2021 Overview: -GSB+, PCN allergy, Ancef in labor -Pitocin per protocol (halved x1) -amniotomy @1530 -epidural in -IUPC -FSE H/o 1 VAVD and SVDx2, most recent in 2010, largest 7lbs 9oz Growth US @ 36w5d, EFW 6lbs 9oz, 48% Negative NIPT History of MRSA infection 08/15/20212021 Overview: -patient reports history of multi-site staph skin infection, is unsure if MRSA or MSSA -will treat with vancomycin preoperatively if need for delivery Group B Streptococcus carrier, antepartum 202010/30/2021 Overview: Sensitive to Vanc headache in first trimester 02/09/2021 06/29/2021 Elderly multigravida in third trimester 01/13/20 21 10/30/2021 Overview: -negative NIPT 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 , antepartum, third trimester 01/12/2021 10/30/2021 Overview: -On Acyclovir since 36 weeks, compliant -SSE negative on admission -denies recent symptoms or outbreaks Bipolar disorder, in partial remission, most recent episode mixed 10/04/2019 08/15/2021 Pure hypercholesterolemia 11/02/20182020 Tobacco use disorder 10/30/2018 12/12/2020 Abdominal wall mass 08/11/2018 09/03/2018 ADHD (attention deficit hype ractivity disorder), combined type 08/11/2018 08/15/2021 Depression, major, recurrent, moderate 8 08/15/2021 Anxiety 07/07/2018 08/15/2021 Methamphetamine abuse 07/07/2018 04/26/2021 Marijuana abuse 07/07/2018 04/26/2021 documented as of this encounter (statuses as of 08/15/2022) [facility] History of Past illness Narrative* Problem Noted Date Resolved Date Gastritis due to Helicobacter species 11/26/2021 02/08/2022 Epigastric pain 10/30/2021 02/08/2022 Elevated blood pressure read ing without diagnosis of hypertension 10/30/2021 11/26/2021 Encounter for elective induction of labor 202008/18/2021 Overview: -GSB+, PCN allergy, Ancef in labor -Pitocin per protocol (halved x1) -amniotomy @1530 -epidural in -IUPC -FSE H/o 1 VAVD and SVDx2, most recent in 2010, largest 7lbs 9oz Growth US @ 36w5d, EFW 6lbs 9oz, 48% Negative NIPT History of MRSA infection 08/15/20212021 Overview: -patient reports history of multi-site staph skin infection, is unsure if MRSA or MSSA -will treat with vancomycin preoperatively if need for delivery Group B Streptococcus carrier, antepartum 202010/30/2021 Overview: Sensitive to Vanc headache in first trimester 02/09/2021 06/29/2021 Elderly multigravida in third trimester 01/13/20 21 10/30/2021 Overview: -negative NIPT 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 , antepartum, third trimester 01/12/2021 10/30/2021 Overview: -On Acyclovir since 36 weeks, compliant -SSE negative on admission -denies recent symptoms or outbreaks Bipolar disorder, in partial remission, most recent episode mixed 10/04/2019 08/15/2021 Pure hypercholesterolemia 11/02/20182020 Tobacco use disorder 10/30/2018 12/12/2020 Abdominal wall mass 08/11/2018 09/03/2018 ADHD (attention deficit hype ractivity disorder), combined type 08/11/2018 08/15/2021 Depression, major, recurrent, moderate 8 08/15/2021 Anxiety 07/07/2018 08/15/2021 Methamphetamine abuse 07/07/2018 04/26/2021 Marijuana abuse 07/07/2018 04/26/2021 documented as of this encounter (statuses as of 08/16/2022) [facility] History of Past illness Narrative* Problem Noted Date Resolved Date Gastritis due to Helicobacter species 11/26/2021 02/08/2022 Epigastric pain 10/30/2021 02/08/2022 Elevated blood pressure read ing without diagnosis of hypertension 10/30/2021 11/26/2021 Encounter for elective induction of labor 202008/18/2021 Overview: -GSB+, PCN allergy, Ancef in labor -Pitocin per protocol (halved x1) -amniotomy @1530 -epidural in -IUPC -FSE H/o 1 VAVD and SVDx2, most recent in 2010, largest 7lbs 9oz Growth US @ 36w5d, EFW 6lbs 9oz, 48% Negative NIPT History of MRSA infection 08/15/20212021 Overview: -patient reports history of multi-site staph skin infection, is unsure if MRSA or MSSA -will treat with vancomycin preoperatively if need for delivery Group B Streptococcus carrier, antepartum 202010/30/2021 Overview: Sensitive to Vanc headache in first trimester 02/09/2021 06/29/2021 Elderly multigravida in third trimester 01/13/20 21 10/30/2021 Overview: -negative NIPT 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 , antepartum, third trimester 01/12/2021 10/30/2021 Overview: -On Acyclovir since 36 weeks, compliant -SSE negative on admission -denies recent symptoms or outbreaks Bipolar disorder, in partial remission, most recent episode mixed 10/04/2019 08/15/2021 Pure hypercholesterolemia 11/02/20182020 Tobacco use disorder 10/30/2018 12/12/2020 Abdominal wall mass 08/11/2018 09/03/2018 ADHD (attention deficit hype ractivity disorder), combined type 08/11/2018 08/15/2021 Depression, major, recurrent, moderate 8 08/15/2021 Anxiety 07/07/2018 08/15/2021 Methamphetamine abuse 07/07/2018 04/26/2021 Marijuana abuse 07/07/2018 04/26/2021 documented as of this encounter (statuses as of 08/22/2022) [facility] History of Past illness Narrative* Problem Noted Date Resolved Date Gastritis due to Helicobacter species 11/26/2021 02/08/2022 Epigastric pain 10/30/2021 02/08/2022 Elevated blood pressure read ing without diagnosis of hypertension 10/30/2021 11/26/2021 Encounter for elective induction of labor 202008/18/2021 Overview: -GSB+, PCN allergy, Ancef in labor -Pitocin per protocol (halved x1) -amniotomy @1530 -epidural in -IUPC -FSE H/o 1 VAVD and SVDx2, most recent in 2010, largest 7lbs 9oz Growth US @ 36w5d, EFW 6lbs 9oz, 48% Negative NIPT History of MRSA infection 08/15/20212021 Overview: -patient reports history of multi-site staph skin infection, is unsure if MRSA or MSSA -will treat with vancomycin preoperatively if need for delivery Group B Streptococcus carrier, antepartum 202010/30/2021 Overview: Sensitive to Vanc headache in first trimester 02/09/2021 06/29/2021 Elderly multigravida in third trimester 01/13/20 21 10/30/2021 Overview: -negative NIPT 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 , antepartum, third trimester 01/12/2021 10/30/2021 Overview: -On Acyclovir since 36 weeks, compliant -SSE negative on admission -denies recent symptoms or outbreaks Bipolar disorder, in partial remission, most recent episode mixed 10/04/2019 08/15/2021 Pure hypercholesterolemia 11/02/20182020 Tobacco use disorder 10/30/2018 12/12/2020 Abdominal wall mass 08/11/2018 09/03/2018 ADHD (attention deficit hype ractivity disorder), combined type 08/11/2018 08/15/2021 Depression, major, recurrent, moderate 8 08/15/2021 Anxiety 07/07/2018 08/15/2021 Methamphetamine abuse 07/07/2018 04/26/2021 Marijuana abuse 07/07/2018 04/26/2021 documented as of this encounter (statuses as of 08/23/2022) [facility] History of Past illness Narrative* Problem Noted Date Resolved Date Gastritis due to Helicobacter species 11/26/2021 02/08/2022 Epigastric pain 10/30/2021 02/08/2022 Elevated blood pressure read ing without diagnosis of hypertension 10/30/2021 11/26/2021 Encounter for elective induction of labor 202008/18/2021 Overview: -GSB+, PCN allergy, Ancef in labor -Pitocin per protocol (halved x1) -amniotomy @1530 -epidural in -IUPC -FSE H/o 1 VAVD and SVDx2, most recent in 2010, largest 7lbs 9oz Growth US @ 36w5d, EFW 6lbs 9oz, 48% Negative NIPT History of MRSA infection 08/15/20212021 Overview: -patient reports history of multi-site staph skin infection, is unsure if MRSA or MSSA -will treat with vancomycin preoperatively if need for delivery Group B Streptococcus carrier, antepartum 202010/30/2021 Overview: Sensitive to Vanc headache in first trimester 02/09/2021 06/29/2021 Elderly multigravida in third trimester 01/13/20 21 10/30/2021 Overview: -negative NIPT 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 , antepartum, third trimester 01/12/2021 10/30/2021 Overview: -On Acyclovir since 36 weeks, compliant -SSE negative on admission -denies recent symptoms or outbreaks Bipolar disorder, in partial remission, most recent episode mixed 10/04/2019 08/15/2021 Pure hypercholesterolemia 11/02/20182020 Tobacco use disorder 10/30/2018 12/12/2020 Abdominal wall mass 08/11/2018 09/03/2018 ADHD (attention deficit hype ractivity disorder), combined type 08/11/2018 08/15/2021 Depression, major, recurrent, moderate 8 08/15/2021 Anxiety 07/07/2018 08/15/2021 Methamphetamine abuse 07/07/2018 04/26/2021 Marijuana abuse 07/07/2018 04/26/2021 documented as of this encounter (statuses as of 08/23/2022) [facility] History of Past illness Narrative* Problem Noted Date Resolved Date Gastritis due to Helicobacter species 11/26/2021 02/08/2022 Epigastric pain 10/30/2021 02/08/2022 Elevated blood pressure read ing without diagnosis of hypertension 10/30/2021 11/26/2021 Encounter for elective induction of labor 202008/18/2021 Overview: -GSB+, PCN allergy, Ancef in labor -Pitocin per protocol (halved x1) -amniotomy @1530 -epidural in -IUPC -FSE H/o 1 VAVD and SVDx2, most recent in 2010, largest 7lbs 9oz Growth US @ 36w5d, EFW 6lbs 9oz, 48% Negative NIPT History of MRSA infection 08/15/20212021 Overview: -patient reports history of multi-site staph skin infection, is unsure if MRSA or MSSA -will treat with vancomycin preoperatively if need for delivery Group B Streptococcus carrier, antepartum 202010/30/2021 Overview: Sensitive to Vanc headache in first trimester 02/09/2021 06/29/2021 Elderly multigravida in third trimester 01/13/20 21 10/30/2021 Overview: -negative NIPT 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 , antepartum, third trimester 01/12/2021 10/30/2021 Overview: -On Acyclovir since 36 weeks, compliant -SSE negative on admission -denies recent symptoms or outbreaks Bipolar disorder, in partial remission, most recent episode mixed 10/04/2019 08/15/2021 Pure hypercholesterolemia 11/02/20182020 Tobacco use disorder 10/30/2018 12/12/2020 Abdominal wall mass 08/11/2018 09/03/2018 ADHD (attention deficit hype ractivity disorder), combined type 08/11/2018 08/15/2021 Depression, major, recurrent, moderate 8 08/15/2021 Anxiety 07/07/2018 08/15/2021 Methamphetamine abuse 07/07/2018 04/26/2021 Marijuana abuse 07/07/2018 04/26/2021 documented as of this encounter (statuses as of 08/30/2022) [facility] History of Past illness Narrative* Problem Noted Date Resolved Date Gastritis due to Helicobacter species 11/26/2021 02/08/2022 Epigastric pain 10/30/2021 02/08/2022 Elevated blood pressure read ing without diagnosis of hypertension 10/30/2021 11/26/2021 Encounter for elective induction of labor 202008/18/2021 Overview: -GSB+, PCN allergy, Ancef in labor -Pitocin per protocol (halved x1) -amniotomy @1530 -epidural in -IUPC -FSE H/o 1 VAVD and SVDx2, most recent in 2010, largest 7lbs 9oz Growth US @ 36w5d, EFW 6lbs 9oz, 48% Negative NIPT History of MRSA infection 08/15/20212021 Overview: -patient reports history of multi-site staph skin infection, is unsure if MRSA or MSSA -will treat with vancomycin preoperatively if need for delivery Group B Streptococcus carrier, antepartum 202010/30/2021 Overview: Sensitive to Vanc headache in first trimester 02/09/2021 06/29/2021 Elderly multigravida in third trimester 01/13/20 21 10/30/2021 Overview: -negative NIPT 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 , antepartum, third trimester 01/12/2021 10/30/2021 Overview: -On Acyclovir since 36 weeks, compliant -SSE negative on admission -denies recent symptoms or outbreaks Bipolar disorder, in partial remission, most recent episode mixed 10/04/2019 08/15/2021 Pure hypercholesterolemia 11/02/20182020 Tobacco use disorder 10/30/2018 12/12/2020 Abdominal wall mass 08/11/2018 09/03/2018 ADHD (attention deficit hype ractivity disorder), combined type 08/11/2018 08/15/2021 Depression, major, recurrent, moderate 8 08/15/2021 Anxiety 07/07/2018 08/15/2021 Methamphetamine abuse 07/07/2018 04/26/2021 Marijuana abuse 07/07/2018 04/26/2021 documented as of this encounter (statuses as of 08/30/2022) [facility] History of Past illness Narrative* Problem Noted Date Resolved Date Gastritis due to Helicobacter species 11/26/2021 02/08/2022 Epigastric pain 10/30/2021 02/08/2022 Elevated blood pressure read ing without diagnosis of hypertension 10/30/2021 11/26/2021 Encounter for elective induction of labor 202008/18/2021 Overview: -GSB+, PCN allergy, Ancef in labor -Pitocin per protocol (halved x1) -amniotomy @1530 -epidural in -IUPC -FSE H/o 1 VAVD and SVDx2, most recent in 2010, largest 7lbs 9oz Growth US @ 36w5d, EFW 6lbs 9oz, 48% Negative NIPT History of MRSA infection 08/15/20212021 Overview: -patient reports history of multi-site staph skin infection, is unsure if MRSA or MSSA -will treat with vancomycin preoperatively if need for delivery Group B Streptococcus carrier, antepartum 202010/30/2021 Overview: Sensitive to Vanc headache in first trimester 02/09/2021 06/29/2021 Elderly multigravida in third trimester 01/13/20 21 10/30/2021 Overview: -negative NIPT 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 , antepartum, third trimester 01/12/2021 10/30/2021 Overview: -On Acyclovir since 36 weeks, compliant -SSE negative on admission -denies recent symptoms or outbreaks Bipolar disorder, in partial remission, most recent episode mixed 10/04/2019 08/15/2021 Pure hypercholesterolemia 11/02/20182020 Tobacco use disorder 10/30/2018 12/12/2020 Abdominal wall mass 08/11/2018 09/03/2018 ADHD (attention deficit hype ractivity disorder), combined type 08/11/2018 08/15/2021 Depression, major, recurrent, moderate 8 08/15/2021 Anxiety 07/07/2018 08/15/2021 Methamphetamine abuse 07/07/2018 04/26/2021 Marijuana abuse 07/07/2018 04/26/2021 documented as of this encounter (statuses as of 09/04/2022) [facility] History of Past illness Narrative* Problem Noted Date Resolved Date Gastritis due to Helicobacter species 11/26/2021 02/08/2022 Epigastric pain 10/30/2021 02/08/2022 Elevated blood pressure read ing without diagnosis of hypertension 10/30/2021 11/26/2021 Encounter for elective induction of labor 202008/18/2021 Overview: -GSB+, PCN allergy, Ancef in labor -Pitocin per protocol (halved x1) -amniotomy @1530 -epidural in -IUPC -FSE H/o 1 VAVD and SVDx2, most recent in 2010, largest 7lbs 9oz Growth US @ 36w5d, EFW 6lbs 9oz, 48% Negative NIPT History of MRSA infection 08/15/20212021 Overview: -patient reports history of multi-site staph skin infection, is unsure if MRSA or MSSA -will treat with vancomycin preoperatively if need for delivery Group B Streptococcus carrier, antepartum 202010/30/2021 Overview: Sensitive to Vanc headache in first trimester 02/09/2021 06/29/2021 Elderly multigravida in third trimester 01/13/20 21 10/30/2021 Overview: -negative NIPT 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 , antepartum, third trimester 01/12/2021 10/30/2021 Overview: -On Acyclovir since 36 weeks, compliant -SSE negative on admission -denies recent symptoms or outbreaks Bipolar disorder, in partial remission, most recent episode mixed 10/04/2019 08/15/2021 Pure hypercholesterolemia 11/02/20182020 Tobacco use disorder 10/30/2018 12/12/2020 Abdominal wall mass 08/11/2018 09/03/2018 ADHD (attention deficit hype ractivity disorder), combined type 08/11/2018 08/15/2021 Depression, major, recurrent, moderate 8 08/15/2021 Anxiety 07/07/2018 08/15/2021 Methamphetamine abuse 07/07/2018 04/26/2021 Marijuana abuse 07/07/2018 04/26/2021 documented as of this encounter (statuses as of 09/04/2022) [facility] History of Past illness Narrative* Problem Noted Date Resolved Date Elevated blood pressure read ing without diagnosis of hypertension 10/30/2021 11/26/2021 Encounter for elective induction of labor 202008/18/2021 Overview: -GSB+, PCN allergy, Ancef in labor -Pitocin per protocol (halved x1) -amniotomy @1530 -epidural in -IUPC -FSE H/o 1 VAVD and SVDx2, most recent in 2010, largest 7lbs 9oz Growth US @ 36w5d, EFW 6lbs 9oz, 48% Negative NIPT History of MRSA infection 08/15/20212021 Overview: -patient reports history of multi-site staph skin infection, is unsure if MRSA or MSSA -will treat with vancomycin preoperatively if need for delivery Group B Streptococcus carrier, antepartum 202010/30/2021 Overview: Sensitive to Vanc headache in first trimester 02/09/2021 06/29/2021 Elderly multigravida in third trimester 01/13/20 21 10/30/2021 Overview: -negative NIPT 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 , antepartum, third trimester 01/12/2021 10/30/2021 Overview: -On Acyclovir since 36 weeks, compliant -SSE negative on admission -denies recent symptoms or outbreaks Nausea and vomiting during 01/12/2021 04/26/2021 Bipolar disorder, in partial remission, most recent episode mixed 10/04/2019 08/15/2021 Pure hypercholesterolemia 11/02/20182020 Tobacco use disorder 10/30/2018 12/12/2020 Abdominal wall mass 08/11/2018 09/03/2018 ADHD (attention deficit hype ractivity disorder), combined type 08/11/2018 08/15/2021 Depression, major, recurrent, moderate 8 08/15/2021 Anxiety 07/07/2018 08/15/2021 Methamphetamine abuse 07/07/2018 04/26/2021 Marijuana abuse 07/07/2018 04/26/2021 documented as of this encounter (statuses as of 01/07/2022) [facility] History of Past illness Narrative* Problem Noted Date Resolved Date Elevated blood pressure read ing without diagnosis of hypertension 10/30/2021 11/26/2021 Encounter for elective induction of labor 202008/18/2021 Overview: -GSB+, PCN allergy, Ancef in labor -Pitocin per protocol (halved x1) -amniotomy @1530 -epidural in -IUPC -FSE H/o 1 VAVD and SVDx2, most recent in 2010, largest 7lbs 9oz Growth US @ 36w5d, EFW 6lbs 9oz, 48% Negative NIPT History of MRSA infection 08/15/20212021 Overview: -patient reports history of multi-site staph skin infection, is unsure if MRSA or MSSA -will treat with vancomycin preoperatively if need for delivery Group B Streptococcus carrier, antepartum 202010/30/2021 Overview: Sensitive to Vanc headache in first trimester 02/09/2021 06/29/2021 Elderly multigravida in third trimester 01/13/20 21 10/30/2021 Overview: -negative NIPT 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 , antepartum, third trimester 01/12/2021 10/30/2021 Overview: -On Acyclovir since 36 weeks, compliant -SSE negative on admission -denies recent symptoms or outbreaks Nausea and vomiting during 01/12/2021 04/26/2021 Bipolar disorder, in partial remission, most recent episode mixed 10/04/2019 08/15/2021 Pure hypercholesterolemia 11/02/20182020 Tobacco use disorder 10/30/2018 12/12/2020 Abdominal wall mass 08/11/2018 09/03/2018 ADHD (attention deficit hype ractivity disorder), combined type 08/11/2018 08/15/2021 Depression, major, recurrent, moderate 8 08/15/2021 Anxiety 07/07/2018 08/15/2021 Methamphetamine abuse 07/07/2018 04/26/2021 Marijuana abuse 07/07/2018 04/26/2021 documented as of this encounter (statuses as of 01/11/2022) [facility] of Past illness Narrative* Problem Noted Date Resolved Date Elevated blood pressure read ing without diagnosis of hypertension 10/30/2021 11/26/2021 Encounter for elective induction of labor 202008/18/2021 Overview: -GSB+, PCN allergy, Ancef in labor -Pitocin per protocol (halved x1) -amniotomy @1530 -epidural in -IUPC -FSE H/o 1 VAVD and SVDx2, most recent in 2010, largest 7lbs 9oz Growth US @ 36w5d, EFW 6lbs 9oz, 48% Negative NIPT History of MRSA infection 08/15/20212021 Overview: -patient reports history of multi-site staph skin infection, is unsure if MRSA or MSSA -will treat with vancomycin preoperatively if need for delivery Group B Streptococcus carrier, antepartum 202010/30/2021 Overview: Sensitive to Vanc headache in first trimester 02/09/2021 06/29/2021 Elderly multigravida in third trimester 01/13/20 21 10/30/2021 Overview: -negative NIPT 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 , antepartum, third trimester 01/12/2021 10/30/2021 Overview: -On Acyclovir since 36 weeks, compliant -SSE negative on admission -denies recent symptoms or outbreaks Nausea and vomiting during 01/12/2021 04/26/2021 Bipolar disorder, in partial remission, most recent episode mixed 10/04/2019 08/15/2021 Pure hypercholesterolemia 11/02/20182020 Tobacco use disorder 10/30/2018 12/12/2020 Abdominal wall mass 08/11/2018 09/03/2018 ADHD (attention deficit hype ractivity disorder), combined type 08/11/2018 08/15/2021 Depression, major, recurrent, moderate 8 08/15/2021 Anxiety 07/07/2018 08/15/2021 Methamphetamine abuse 07/07/2018 04/26/2021 Marijuana abuse 07/07/2018 04/26/2021 documented as of this encounter (statuses as of 01/18/2022) [facility] History of Past illness Narrative* Problem Noted Date Resolved Date Elevated blood pressure read ing without diagnosis of hypertension 10/30/2021 11/26/2021 Encounter for elective induction of labor 202008/18/2021 Overview: -GSB+, PCN allergy, Ancef in labor -Pitocin per protocol (halved x1) -amniotomy @1530 -epidural in -IUPC -FSE H/o 1 VAVD and SVDx2, most recent in 2010, largest 7lbs 9oz Growth US @ 36w5d, EFW 6lbs 9oz, 48% Negative NIPT History of MRSA infection 08/15/20212021 Overview: -patient reports history of multi-site staph skin infection, is unsure if MRSA or MSSA -will treat with vancomycin preoperatively if need for delivery Group B Streptococcus carrier, antepartum 202010/30/2021 Overview: Sensitive to Vanc headache in first trimester 02/09/2021 06/29/2021 Elderly multigravida in third trimester 01/13/20 21 10/30/2021 Overview: -negative NIPT 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 , antepartum, third trimester 01/12/2021 10/30/2021 Overview: -On Acyclovir since 36 weeks, compliant -SSE negative on admission -denies recent symptoms or outbreaks Nausea and vomiting during 01/12/2021 04/26/2021 Bipolar disorder, in partial remission, most recent episode mixed 10/04/2019 08/15/2021 Pure hypercholesterolemia 11/02/20182020 Tobacco use disorder 10/30/2018 12/12/2020 Abdominal wall mass 08/11/2018 09/03/2018 ADHD (attention deficit hype ractivity disorder), combined type 08/11/2018 08/15/2021 Depression, major, recurrent, moderate 8 08/15/2021 Anxiety 07/07/2018 08/15/2021 Methamphetamine abuse 07/07/2018 04/26/2021 Marijuana abuse 07/07/2018 04/26/2021 documented as of this encounter (statuses as of 01/21/2022) [facility] History of Past illness Narrative* Problem Noted Date Resolved Date Elevated blood pressure read ing without diagnosis of hypertension 10/30/2021 11/26/2021 Encounter for elective induction of labor 202008/18/2021 Overview: -GSB+, PCN allergy, Ancef in labor -Pitocin per protocol (halved x1) -amniotomy @1530 -epidural in -IUPC -FSE H/o 1 VAVD and SVDx2, most recent in 2010, largest 7lbs 9oz Growth US @ 36w5d, EFW 6lbs 9oz, 48% Negative NIPT History of MRSA infection 08/15/20212021 Overview: -patient reports history of multi-site staph skin infection, is unsure if MRSA or MSSA -will treat with vancomycin preoperatively if need for delivery Group B Streptococcus carrier, antepartum 202010/30/2021 Overview: Sensitive to Vanc headache in first trimester 02/09/2021 06/29/2021 Elderly multigravida in third trimester 01/13/20 21 10/30/2021 Overview: -negative NIPT 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 , antepartum, third trimester 01/12/2021 10/30/2021 Overview: -On Acyclovir since 36 weeks, compliant -SSE negative on admission -denies recent symptoms or outbreaks Nausea and vomiting during 01/12/2021 04/26/2021 Bipolar disorder, in partial remission, most recent episode mixed 10/04/2019 08/15/2021 Pure hypercholesterolemia 11/02/20182020 Tobacco use disorder 10/30/2018 12/12/2020 Abdominal wall mass 08/11/2018 09/03/2018 ADHD (attention deficit hype ractivity disorder), combined type 08/11/2018 08/15/2021 Depression, major, recurrent, moderate 8 08/15/2021 Anxiety 07/07/2018 08/15/2021 Methamphetamine abuse 07/07/2018 04/26/2021 Marijuana abuse 07/07/2018 04/26/2021 documented as of this encounter (statuses as of 02/01/2022) [facility] Note Date/Time February 14, 2025 6:12p m [facility] Medical Records Department [address] [place] [address] Anesthesia Postop Eval II 02/14/251636 MR#: [id number] Acct: [id number] Name: SIA OLIVERA Rep #:[id number] : 1985 39 From: uGille Shin MD PCP: Hui Valdes, 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 Status:REG S DC Y Race: C Location: [facility]1 Anesthesia Postop Eval I Sum Postop Eval Completion status Anesthesia document: Postop Eval 1 completed: Yes Anesthesia Postop Eval I Summary Anesthesia Postop Eval I Summary: Anesthesia Postop Eval I: Assessment Summary Airway patent Yes 02/14/25 15:55 [email or web address] Spontaneous unlabored Yes 02/14/25 15:55 [email or web address] respirations Mental status Awake,Calm 02/14/25 15:55 [email or web address] nausea No 02/14/25 15:55 [email or web address] Vomiting No 02/14/25 15:55 [email or web address] Anesthesia Postop Eval I: Fluid Summary Crystalloid volume administer 1,000 02/14/25 15:55 [email or web address] (ml) Colloids volume administered ( ml) Blood Product volume administered (ml) Total IV fluid infused 1,000 02/14/25 15:55 [email or web address] Anesthesia Postop Eval I: Summary Notes Anesthesia Complication No 02/14/25 15:55 [email or web address] Anesthesia Complication Comment: Post-operative progress note Anesthesia: Postop Eval II Evaluation Mental status: Awake Pain Level: 0 nausea: No Vomiting: No Complications Anesthesia Complication: No 02/14/251636 <Electronically signed by Guille Shin MD> Date _ Guille Shin MD Cosigner Signature: Date CC: ~ Signed [facility] Work Phone: Evaluation note* Diagnosis Acute bronchitis, unspecified organism- Primary Acute serous otitis media of left ear, recurrence not specified Acute diffuse otitis externa of left ear [facility] Work Phone: Evaluation note* Diagnosis Migraine without aura and without status migrainosus, not intractable Migraine without aura, without mention of intractable migraine without mention of status migrainosus [facility] Diagnosis Hypertension, essential- Primary Unspecified essential hypertension Bronchitis Bronchitis, not specified as acute or chronic [facility] Diagnosis Women's annual routine gynecological examination- Primary Routine cervical smear Screening for malignant neoplasm of the cervix Secondary amenorrhea Absence of menstruation [facility] Diagnosis care of multigravida, antepartum- Primary [facility]* Diagnosis Hypertension, essential Unspecified essential hypertension [facility] Diagnosis Hypertension, essential- Primary Unspecified essential hypertension GERD without esophagitis Esophageal reflux at early stage state, incidental Nausea and vomiting of , antepartum Unspecified vomiting of , antepartum Migraine without aura and without status migrainosus, not intractable Migraine without aura, without mention of intractable migraine without mention of status migrainosus [facility] Diagnosis Amenorrhea, secondary- Primary Absence of menstruation Nausea and vomiting during [facility]* Diagnosis care of multigravida, antepartum [facility] Diagnosis Nausea/vomiting in - Primary Unspecified vomiting of , unspecified as to episode of care [facility] Diagnosis Secondary amenorrhea Absence of menstruation [facility]* Diagnosis Nausea/vomiting in Unspecified vomiting of , unspecified as to episode of care [facility] Diagnosis Multigravida of advanced maternal age in first trimester- Primary 15 weeks gestation of state, incidental Nausea/vomiting in Unspecified vomiting of , unspecified as to episode of care Preexisting hypertension complicating , antepartum Benign essential hypertension antepartum Obesity complicating , first trimester History of group B Streptococcus (GBS) infection 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ng , antepartum, unspecified trimester Constipation, unspecified constipation type Vaginal discharge Leukorrhea, not specified as infective [facility]* Diagnosis Hypertension, essential- Primary Unspecified essential hypertension Preexisting hypertension complicating , antepartum Benign essential hypertension antepartum GERD without esophagitis Esophageal reflux Nausea and vomiting of , antepartum Unspecified vomiting of , antepartum Periumbilical hernia Umbilical hernia without mention of obstruction or gangrene documented [facility] this [facility]* Diagnosis Constipation, unspecified constipation type documented in this encounter [facility] note* Diagnosis Nausea/vomiting in Unspecified vomiting of , unspecified as to episode of care documented in this encounter [facility] note* Diagnosis PUD (peptic ulcer disease)- Primary Peptic ulcer, unspecified site, unspecified as acute or chronic, without mention of hemorrhage, perforation, or obstruction GERD without esophagitis Esophageal reflux Preexisting hypertension complicating , antepartum Benign essential hypertension antepartum [facility]* Diagnosis Obesity complicating , second trimester- Primary Encounter for anatomic survey 20 weeks gestation of state, incidental documented in this encounter [facility] note* Diagnosis Preexisting hypertension complicating , antepartum- Primary Benign essential hypertension antepartum AMA (advanced maternal age) multigravida 35+, second trimester Obesity complicating , second trimester Headache in , second trimester 20 weeks gestation of state, incidental documented in this encounter [facility] note* Diagnosis Constipation, unspecified constipation type Headache in , second trimester [facility]* Diagnosis Headache in , second trimester documented in this encounter [facility] note* Diagnosis Nausea/vomiting in Unspecified vomiting of , unspecified as to episode of care documented in this encounter [facility] note* Diagnosis Headache in , second trimester documented in this encounter [facility] note* Diagnosis AMA (advanced maternal age) multigravida 35+, second trimester- Primary 26 weeks gestation of state, incidental 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ng , antepartum, unspecified trimester Obesity complicating , first trimester Preexisting hypertension complicating , antepartum Benign essential hypertension antepartum History of drug use [facility] Diagnosis Headache in , second trimester [facility]* Diagnosis Diet controlled gestational diabetes mellitus (GDM) in second trimester- Primary [facility]* Diagnosis GDM (gestational diabetes mellitus), class A1 Abnormal maternal glucose tolerance, complicating , childbirth, or the puerperium, unspecified as to episode of care Diet controlled gestational diabetes mellitus (GDM) in second trimester [facility]* Diagnosis Gestational diabetes mellitus, class A1- Primary Abnormal maternal glucose tolerance, complicating , childbirth, or the puerperium, unspecified as to episode of care 28 weeks gestation of state, incidental Need for [id number] (Tdap) vaccine Need for prophylactic vaccination with combined qroxgdfvrs-hdnfcal-poxsocdqa (DTP) vaccine Obesity complicating , third trimester Constipation, unspecified constipation type 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ng , antepartum, unspecified trimester AMA (advanced maternal age) multigravida 35+, third trimester Preexisting hypertension complicating , antepartum Benign essential hypertension antepartum [facility]* Diagnosis Headache in , second trimester [facility]* Diagnosis Gestational diabetes mellitus, class A1- Primary Abnormal maternal glucose tolerance, complicating , childbirth, or the puerperium, unspecified as to episode of care Obesity complicating , third trimester AMA (advanced maternal age) multigravida 35+, third trimester Preexisting hypertension complicating , antepartum Benign essential hypertension antepartum 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ng , antepartum, unspecified trimester 30 weeks gestation of state, incidental [facility]* Diagnosis Gestational diabetes mellitus, class A1 Abnormal maternal glucose tolerance, complicating , childbirth, or the puerperium, unspecified as to episode of care [facility]* Diagnosis Headache in , second trimester 32 weeks gestation of - Primary state, incidental [facility]* Diagnosis 32 weeks gestation of - Primary state, incidental [facility]* Diagnosis Preexisting hypertension complicating , antepartum- Primary Benign essential hypertension antepartum 32 weeks gestation of state, incidental GDM (gestational diabetes mellitus), class A1 Abnormal maternal glucose tolerance, complicating , childbirth, or the puerperium, unspecified as to episode of care [facility]* Diagnosis 32 weeks gestation of - Primary state, incidental [facility]* Diagnosis AMA (advanced maternal age) multigravida 35+, third trimester- Primary Obesity complicating , third trimester Gestational diabetes mellitus, class A1 Abnormal maternal glucose tolerance, complicating , childbirth, or the puerperium, unspecified as to episode of care Preexisting hypertension complicating , antepartum Benign essential hypertension antepartum 33 weeks gestation of state, incidental Non-stress test reactive Other specified screening [facility]* Diagnosis 34 weeks gestation of - Primary state, incidental [facility] Diagnosis Preexisting hypertension complicating , antepartum- Primary Benign essential hypertension antepartum 34 weeks gestation of state, incidental Gestational diabetes mellitus, class A1 Abnormal maternal glucose tolerance, complicating , childbirth, or the puerperium, unspecified as to episode of care [facility]* Diagnosis Headache in , second trimester [facility] Diagnosis Headache in , second trimester 35 weeks gestation of - Primary state, incidental [facility] Diagnosis 35 weeks gestation of - Primary state, incidental [facility]* Diagnosis Preexisting hypertension complicating , antepartum- Primary Benign essential hypertension antepartum 35 weeks gestation of state, incidental Gestational diabetes mellitus, class A1 Abnormal maternal glucose tolerance, complicating , childbirth, or the puerperium, unspecified as to episode of care [facility]* Diagnosis AMA (advanced maternal age) multigravida 35+, third trimester Obesity complicating , third trimester [facility] Diagnosis Preexisting hypertension complicating , antepartum- Primary Benign essential hypertension antepartum 36 weeks gestation of state, incidental Gestational diabetes mellitus, class A1 Abnormal maternal glucose tolerance, complicating , childbirth, or the puerperium, unspecified as to episode of care 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ng , antepartum, unspecified trimester [facility]* Diagnosis 36 weeks gestation of - Primary state, incidental [facility]* Diagnosis 37 weeks gestation of - Primary state, incidental Preexisting hypertension complicating , antepartum Benign essential hypertension antepartum Diet controlled gestational diabetes mellitus (GDM) in second trimester 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ng , antepartum, unspecified trimester Group B Streptococcus carrier, antepartum Other current maternal conditions classifiable elsewhere, antepartum [facility]* Diagnosis Migraine without aura and without status migrainosus, not intractable Migraine without aura, without mention of intractable migraine without mention of status migrainosus [facility]* Diagnosis Yeast dermatitis- Primary Candidiasis of skin and nails GERD without esophagitis Esophageal reflux Hypertension, essential Unspecified essential hypertension Migraine without aura and without status migrainosus, not intractable Migraine without aura, without mention of intractable migraine without mention of status migrainosus PUD (peptic ulcer disease) Peptic ulcer, unspecified site, unspecified as acute or chronic, without mention of hemorrhage, perforation, or obstruction History of gestational diabetes Personal history of gestational diabetes [facility]* Diagnosis care and examination- Primary Routine follow-up examination or test, unconfirmed [facility]* Diagnosis Encounter for IUD insertion- Primary Encounter for insertion of intrauterine contraceptive device Routine screening for STI (sexually transmitted infection) Screening examination for venereal disease [facility]* Diagnosis Encounter for routine checking of intrauterine contraceptive device (IUD)- Primary [facility]* Diagnosis Hypertension, essential- Primary Unspecified essential hypertension History of gestational diabetes Personal history of gestational diabetes Obesity, Class II, BMI 35-39.9 Obesity, unspecified GERD without esophagitis Esophageal reflux PUD (peptic ulcer disease) Peptic ulcer, unspecified site, unspecified as acute or chronic, without mention of hemorrhage, perforation, or obstruction External hemorrhoid External hemorrhoids without mention of complication [facility]* Diagnosis Ventral hernia without obstruction or gangrene- Primary Ventral hernia, unspecified, without mention of obstruction or gangrene Class 2 severe obesity with serious comorbidity and body mass index (BMI) of 36.0 to 36.9 in adult, unspecified obesity type (HCC) Gastroesophageal reflux disease, unspecified whether esophagitis present Hypertension, unspecified type [facility]* Diagnosis Gastroesophageal reflux disease, unspecified whether esophagitis present Pre-op testing Preoperative examination, unspecified Hypertension, essential Unspecified essential hypertension GERD without esophagitis Esophageal reflux Hyperlipidemia, mixed Mixed hyperlipidemia Migraine without aura and without status migrainosus, not intractable Migraine without aura, without mention of intractable migraine without mention of status migrainosus [facility]* Diagnosis Gastroesophageal reflux disease without esophagitis- Primary Esophageal reflux Class 1 obesity with body mass index (BMI) of 34.0 to 34.9 in adult, unspecified obesity type, unspecified whether serious comorbidity present Ventral hernia without obstruction or gangrene Ventral hernia, unspecified, without mention of obstruction or gangrene [facility]* Diagnosis Routine physical examination- Primary Routine general medical examination at a health care facility Migraine without aura and without status migrainosus, not intractable Migraine without aura, without mention of intractable migraine without mention of status migrainosus Hyperlipidemia, mixed Mixed hyperlipidemia Obesity, Class I, BMI 30-34.9 Obesity, unspecified Ventral hernia without obstruction or gangrene Ventral hernia, unspecified, without mention of obstruction or gangrene Onychomycosis Dermatophytosis of nail External hemorrhoid External hemorrhoids without mention of complication Encounter for immunization Need for other specified prophylactic vaccination against single bacterial disease [facility]* Diagnosis Gastroesophageal reflux disease, unspecified whether esophagitis present Pre-op testing Preoperative examination, unspecified Hypertension, essential Unspecified essential hypertension GERD without esophagitis Esophageal reflux Hyperlipidemia, mixed Mixed hyperlipidemia Migraine without aura and without status migrainosus, not intractable Migraine without aura, without mention of intractable migraine without mention of status migrainosus Encounter for medical examination to establish care- Primary Screening for depression Encounter for screening examination for other mental health and behavioral disorders Encounter for immunization Need for other specified prophylactic vaccination against single bacterial disease Migraine without aura and without status migrainosus, not intractable Migraine without aura, without mention of intractable migraine without mention of status migrainosus ADHD (attention deficit hyperactivity disorder), combined type Attention deficit disorder with hyperactivity OAB (overactive bladder) Hypertonicity of bladder Encounter for screening for human papillomavirus (HPV) Special screening examination for human papillomavirus (HPV) [facility]* Diagnosis Gastroesophageal reflux disease, unspecified whether esophagitis present Pre-op testing Preoperative examination, unspecified Hypertension, essential Unspecified essential hypertension GERD without esophagitis Esophageal reflux Hyperlipidemia, mixed Mixed hyperlipidemia Migraine without aura and without status migrainosus, not intractable Migraine without aura, without mention of intractable migraine without mention of status migrainosus External hemorrhoid External hemorrhoids without mention of complication Migraine without aura and without status migrainosus, not intractable Migraine without aura, without mention of intractable migraine without mention of status migrainosus [facility]* Diagnosis Gastroesophageal reflux disease, unspecified whether esophagitis present Pre-op testing Preoperative examination, unspecified Hypertension, essential Unspecified essential hypertension GERD without esophagitis Esophageal reflux Hyperlipidemia, mixed Mixed hyperlipidemia Migraine without aura and without status migrainosus, not intractable Migraine without aura, without mention of intractable migraine without mention of status migrainosus Migraine without aura and without status migrainosus, not intractable Migraine without aura, without mention of intractable migraine without mention of status migrainosus [facility]* Diagnosis Gastroesophageal reflux disease, unspecified whether esophagitis present Pre-op testing Preoperative examination, unspecified Hypertension, essential Unspecified essential hypertension GERD without esophagitis Esophageal reflux Hyperlipidemia, mixed Mixed hyperlipidemia Migraine without aura and without status migrainosus, not intractable Migraine without aura, without mention of intractable migraine without mention of status migrainosus Encounter for gynecological examination (general) (routine) with abnormal findings- Primary Screening for cervical cancer Screening for malignant neoplasm of the cervix Encounter for screening for human papillomavirus (HPV) Special screening examination for human papillomavirus (HPV) Encounter for screening mammogram for breast cancer Dense breast tissue Screening for STDs (sexually transmitted diseases) Screening examination for venereal disease IUD (intrauterine device) in place Presence of intrauterine contraceptive device Encounter for preconception consultation Other procreative management counseling and advice [facility]* Diagnosis Gastroesophageal reflux disease, unspecified whether esophagitis present Pre-op testing Preoperative examination, unspecified Hypertension, essential Unspecified essential hypertension GERD without esophagitis Esophageal reflux Hyperlipidemia, mixed Mixed hyperlipidemia Migraine without aura and without status migrainosus, not intractable Migraine without aura, without mention of intractable migraine without mention of status migrainosus Encounter for IUD removal- Primary Encounter for removal of intrauterine contraceptive device documented in this encounter [facility] note* Diagnosis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 tabletIndications:Acute bronchitis, unspecified organism,Acute diffuse otitis externa of left ear Take 1 tablet by mouth daily for 4 days 4 tablet 0 06/19/2021 06/19/2021 Scheduled Active and Recently Administ ered Medications (unrecognized section and content) Medication Order 06/17/2021 06/18/2021 06/19/2021 azithromycin (ZITHROMAX) tablet 500 mg (COMPLETED) 500 mg, Oral, ONCE, On Fri06/19/21 at 0030, For 1 dose 0051 (Given - Provid er: Michelle Casillas RN) PRN Medication Order 06/17/2021 06/18/2021 06/19/2021 albuterol sulfate HFA 108 (90 Base) MCG/ACT inhaler 2 puff 2 puff, Inhalation, EVERY 4 HOURS PRN, Wheezing, Starting on Fri06/19/21 at 0016 0051 (Given - Provid er: Michelle Casillas RN) Source Comments (unrecognize d section and content) In the event this informatio n is protected by the Federal Confidentiality of Alcohol and Drug Abuse Patient Records regulations: The Federal rules restrict any use of the information to criminally investigate or prosecute any alcohol or drug abuse patient.[facility] CenterIn the event this information is protected by the Federal Confidentiality of Alcohol and Drug Abuse Patient Records regulations: The Federal rules restrict any use of the information to criminally investigate or prosecute any alcohol or drug abuse patient.[facility] CenterIn the event this information is protected by the Federal Confidentiality of Alcohol and Drug Abuse Patient Records regulations: The Federal rules restrict any use of the information to criminally investigate or prosecute any alcohol or drug abuse patient.[facility] CenterIn the event this information is protected by the Federal Confidentiality of Alcohol and Drug Abuse Patient Records regulations: The Federal rules restrict any use of the information to criminally investigate or prosecute any alcohol or drug abuse patient.[facility] CenterIn the event this information is protected by the Federal Confidentiality of Alcohol and Drug Abuse Patient Records regulations: The Federal rules restrict any use of the information to criminally investigate or prosecute any alcohol or drug abuse patient.[facility] CenterIn the event this information is protected by the Federal Confidentiality of Alcohol and Drug Abuse Patient Records regulations: The Federal rules restrict any use of the information to criminally investigate or prosecute any alcohol or drug abuse patient.[facility] CenterIn the event this information is protected by the Federal Confidentiality of Alcohol and Drug Abuse Patient Records regulations: The Federal rules restrict any use of the information to criminally investigate or prosecute any alcohol or drug abuse patient.[facility] CenterIn the event this information is protected by the Federal Confidentiality of Alcohol and Drug Abuse Patient Records regulations: The Federal rules restrict any use of the information to criminally investigate or prosecute any alcohol or drug abuse patient.[facility] CenterIn the event this information is protected by the Federal Confidentiality of Alcohol and Drug Abuse Patient Records regulations: The Federal rules restrict any use of the information to criminally investigate or prosecute any alcohol or drug abuse patient.[facility] CenterIn the event this information is protected by the Federal Confidentiality of Alcohol and Drug Abuse Patient Records regulations: The Federal rules restrict any use of the information to criminally investigate or prosecute any alcohol or drug abuse patient.[facility] CenterIn the event this information is protected by the Federal Confidentiality of Alcohol and Drug Abuse Patient Records regulations: The Federal rules restrict any use of the information to criminally investigate or prosecute any alcohol or drug abuse patient.[facility] CenterIn the event this information is protected by the Federal Confidentiality of Alcohol and Drug Abuse Patient Records regulations: The Federal rules restrict any use of the information to criminally investigate or prosecute any alcohol or drug abuse patient.[facility] CenterIn the event this information is protected by the Federal Confidentiality of Alcohol and Drug Abuse Patient Records regulations: The Federal rules restrict any use of the information to criminally investigate or prosecute any alcohol or drug abuse patient.[facility] CenterIn the event this information is protected by the Federal Confidentiality of Alcohol and Drug Abuse Patient Records regulations: The Federal rules restrict any use of the information to criminally investigate or prosecute any alcohol or drug abuse patient.[facility] CenterIn the event this information is protected by the Federal Confidentiality of Alcohol and Drug Abuse Patient Records regulations: The Federal rules restrict any use of the information to criminally investigate or prosecute any alcohol or drug abuse patient.[facility] CenterIn the event this information is protected by the Federal Confidentiality of Alcohol and Drug Abuse Patient Records regulations: The Federal rules restrict any use of the information to criminally investigate or prosecute any alcohol or drug abuse patient.[facility] CenterIn the event this information is protected by the Federal Confidentiality of Alcohol and Drug Abuse Patient Records regulations: The Federal rules restrict any use of the information to criminally investigate or prosecute any alcohol or drug abuse patient.[facility] CenterIn the event this information is protected by the Federal Confidentiality of Alcohol and Drug Abuse Patient Records regulations: The Federal rules restrict any use of the information to criminally investigate or prosecute any alcohol or drug abuse patient.[facility] CenterIn the event this information is protected by the Federal Confidentiality of Alcohol and Drug Abuse Patient Records regulations: The Federal rules restrict any use of the information to criminally investigate or prosecute any alcohol or drug abuse patient.[facility] CenterIn the event this information is protected by the Federal Confidentiality of Alcohol and Drug Abuse Patient Records regulations: The Federal rules restrict any use of the information to criminally investigate or prosecute any alcohol or drug abuse patient.[facility] CenterIn the event this information is protected by the Federal Confidentiality of Alcohol and Drug Abuse Patient Records regulations: The Federal rules restrict any use of the information to criminally investigate or prosecute any alcohol or drug abuse patient.[facility] CenterIn the event this information is protected by the Federal Confidentiality of Alcohol and Drug Abuse Patient Records regulations: The Federal rules restrict any use of the information to criminally investigate or prosecute any alcohol or drug abuse patient.[facility] CenterIn the event this information is protected by the Federal Confidentiality of Alcohol and Drug Abuse Patient Records regulations: The Federal rules restrict any use of the information to criminally investigate or prosecute any alcohol or drug abuse patient.[facility] CenterIn the event this information is protected by the Federal Confidentiality of Alcohol and Drug Abuse Patient Records regulations: The Federal rules restrict any use of the information to criminally investigate or prosecute any alcohol or drug abuse patient.[facility] CenterIn the event this information is protected by the Federal Confidentiality of Alcohol and Drug Abuse Patient Records regulations: The Federal rules restrict any use of the information to criminally investigate or prosecute any alcohol or drug abuse patient.[facility] CenterIn the event this information is protected by the Federal Confidentiality of Alcohol and Drug Abuse Patient Records regulations: The Federal rules restrict any use of the information to criminally investigate or prosecute any alcohol or drug abuse patient.[facility] CenterIn the event this information is protected by the Federal Confidentiality of Alcohol and Drug Abuse Patient Records regulations: The Federal rules restrict any use of the information to criminally investigate or prosecute any alcohol or drug abuse patient.[facility] CenterIn the event this information is protected by the Federal Confidentiality of Alcohol and Drug Abuse Patient Records regulations: The Federal rules restrict any use of the information to criminally investigate or prosecute any alcohol or drug abuse patient.[facility] CenterIn the event this information is protected by the Federal Confidentiality of Alcohol and Drug Abuse Patient Records regulations: The Federal rules restrict any use of the information to criminally investigate or prosecute any alcohol or drug abuse patient.[facility] CenterIn the event this information is protected by the Federal Confidentiality of Alcohol and Drug Abuse Patient Records regulations: The Federal rules restrict any use of the information to criminally investigate or prosecute any alcohol or drug abuse patient.[facility] CenterIn the event this information is protected by the Federal Confidentiality of Alcohol and Drug Abuse Patient Records regulations: The Federal rules restrict any use of the information to criminally investigate or prosecute any alcohol or drug abuse patient.[facility] CenterIn the event this information is protected by the Federal Confidentiality of Alcohol and Drug Abuse Patient Records regulations: The Federal rules restrict any use of the information to criminally investigate or prosecute any alcohol or drug abuse patient.[facility] CenterIn the event this information is protected by the Federal Confidentiality of Alcohol and Drug Abuse Patient Records regulations: The Federal rules restrict any use of the information to criminally investigate or prosecute any alcohol or drug abuse patient.[facility] CenterIn the event this information is protected by the Federal Confidentiality of Alcohol and Drug Abuse Patient Records regulations: The Federal rules restrict any use of the information to criminally investigate or prosecute any alcohol or drug abuse patient.[facility] CenterIn the event this information is protected by the Federal Confidentiality of Alcohol and Drug Abuse Patient Records regulations: The Federal rules restrict any use of the information to criminally investigate or prosecute any alcohol or drug abuse patient.[facility] CenterIn the event this information is protected by the Federal Confidentiality of Alcohol and Drug Abuse Patient Records regulations: The Federal rules restrict any use of the information to criminally investigate or prosecute any alcohol or drug abuse patient.[facility] CenterIn the event this information is protected by the Federal Confidentiality of Alcohol and Drug Abuse Patient Records regulations: The Federal rules restrict any use of the information to criminally investigate or prosecute any alcohol or drug abuse patient.[facility] CenterIn the event this information is protected by the Federal Confidentiality of Alcohol and Drug Abuse Patient Records regulations: The Federal rules restrict any use of the information to criminally investigate or prosecute any alcohol or drug abuse patient.[facility] CenterIn the event this information is protected by the Federal Confidentiality of Alcohol and Drug Abuse Patient Records regulations: The Federal rules restrict any use of the information to criminally investigate or prosecute any alcohol or drug abuse patient.[facility] CenterIn the event this information is protected by the Federal Confidentiality of Alcohol and Drug Abuse Patient Records regulations: The Federal rules restrict any use of the information to criminally investigate or prosecute any alcohol or drug abuse patient.[facility] CenterIn the event this information is protected by the Federal Confidentiality of Alcohol and Drug Abuse Patient Records regulations: The Federal rules restrict any use of the information to criminally investigate or prosecute any alcohol or drug abuse patient.[facility] CenterIn the event this information is protected by the Federal Confidentiality of Alcohol and Drug Abuse Patient Records regulations: The Federal rules restrict any use of the information to criminally investigate or prosecute any alcohol or drug abuse patient.[facility] CenterIn the event this information is protected by the Federal Confidentiality of Alcohol and Drug Abuse Patient Records regulations: The Federal rules restrict any use of the information to criminally investigate or prosecute any alcohol or drug abuse patient.[facility] CenterIn the event this information is protected by the Federal Confidentiality of Alcohol and Drug Abuse Patient Records regulations: The Federal rules restrict any use of the information to criminally investigate or prosecute any alcohol or drug abuse patient.[facility] CenterIn the event this information is protected by the Federal Confidentiality of Alcohol and Drug Abuse Patient Records regulations: The Federal rules restrict any use of the information to criminally investigate or prosecute any alcohol or drug abuse patient.[facility] CenterIn the event this information is protected by the Federal Confidentiality of Alcohol and Drug Abuse Patient Records regulations: The Federal rules restrict any use of the information to criminally investigate or prosecute any alcohol or drug abuse patient.[facility] CenterIn the event this information is protected by the Federal Confidentiality of Alcohol and Drug Abuse Patient Records regulations: The Federal rules restrict any use of the information to criminally investigate or prosecute any alcohol or drug abuse patient.[facility] CenterIn the event this information is protected by the Federal Confidentiality of Alcohol and Drug Abuse Patient Records regulations: The Federal rules restrict any use of the information to criminally investigate or prosecute any alcohol or drug abuse patient.[facility] CenterIn the event this information is protected by the Federal Confidentiality of Alcohol and Drug Abuse Patient Records regulations: The Federal rules restrict any use of the information to criminally investigate or prosecute any alcohol or drug abuse patient.[facility] CenterIn the event this information is protected by the Federal Confidentiality of Alcohol and Drug Abuse Patient Records regulations: The Federal rules restrict any use of the information to criminally investigate or prosecute any alcohol or drug abuse patient.[facility] CenterIn the event this information is protected by the Federal Confidentiality of Alcohol and Drug Abuse Patient Records regulations: The Federal rules restrict any use of the information to criminally investigate or prosecute any alcohol or drug abuse patient.[facility] CenterIn the event this information is protected by the Federal Confidentiality of Alcohol and Drug Abuse Patient Records regulations: The Federal rules restrict any use of the information to criminally investigate or prosecute any alcohol or drug abuse patient.[facility] CenterIn the event this information is protected by the Federal Confidentiality of Alcohol and Drug Abuse Patient Records regulations: The Federal rules restrict any use of the information to criminally investigate or prosecute any alcohol or drug abuse patient.[facility] CenterIn the event this information is protected by the Federal Confidentiality of Alcohol and Drug Abuse Patient Records regulations: The Federal rules restrict any use of the information to criminally investigate or prosecute any alcohol or drug abuse patient.[facility] CenterIn the event this information is protected by the Federal Confidentiality of Alcohol and Drug Abuse Patient Records regulations: The Federal rules restrict any use of the information to criminally investigate or prosecute any alcohol or drug abuse patient.[facility] CenterIn the event this information is protected by the Federal Confidentiality of Alcohol and Drug Abuse Patient Records regulations: The Federal rules restrict any use of the information to criminally investigate or prosecute any alcohol or drug abuse patient.[facility] CenterIn the event this information is protected by the Federal Confidentiality of Alcohol and Drug Abuse Patient Records regulations: The Federal rules restrict any use of the information to criminally investigate or prosecute any alcohol or drug abuse patient.[facility] CenterIn the event this information is protected by the Federal Confidentiality of Alcohol and Drug Abuse Patient Records regulations: The Federal rules restrict any use of the information to criminally investigate or prosecute any alcohol or drug abuse patient.[facility] CenterIn the event this information is protected by the Federal Confidentiality of Alcohol and Drug Abuse Patient Records regulations: The Federal rules restrict any use of the information to criminally investigate or prosecute any alcohol or drug abuse patient.[facility] CenterIn the event this information is protected by the Federal Confidentiality of Alcohol and Drug Abuse Patient Records regulations: The Federal rules restrict any use of the information to criminally investigate or prosecute any alcohol or drug abuse patient.[facility] CenterIn the event this information is protected by the Federal Confidentiality of Alcohol and Drug Abuse Patient Records regulations: The Federal rules restrict any use of the information to criminally investigate or prosecute any alcohol or drug abuse patient.[facility] CenterIn the event this information is protected by the Federal Confidentiality of Alcohol and Drug Abuse Patient Records regulations: The Federal rules restrict any use of the information to criminally investigate or prosecute any alcohol or drug abuse patient.[facility] CenterIn the event this information is protected by the Federal Confidentiality of Alcohol and Drug Abuse Patient Records regulations: The Federal rules restrict any use of the information to criminally investigate or prosecute any alcohol or drug abuse patient.[facility] CenterIn the event this information is protected by the Federal Confidentiality of Alcohol and Drug Abuse Patient Records regulations: The Federal rules restrict any use of the information to criminally investigate or prosecute any alcohol or drug abuse patient.[facility] CenterIn the event this information is protected by the Federal Confidentiality of Alcohol and Drug Abuse Patient Records regulations: The Federal rules restrict any use of the information to criminally investigate or prosecute any alcohol or drug abuse patient.[facility] CenterIn the event this information is protected by the Federal Confidentiality of Alcohol and Drug Abuse Patient Records regulations: The Federal rules restrict any use of the information to criminally investigate or prosecute any alcohol or drug abuse patient.[facility] CenterIn the event this information is protected by the Federal Confidentiality of Alcohol and Drug Abuse Patient Records regulations: The Federal rules restrict any use of the information to criminally investigate or prosecute any alcohol or drug abuse patient.[facility] CenterIn the event this information is protected by the Federal Confidentiality of Alcohol and Drug Abuse Patient Records regulations: The Federal rules restrict any use of the information to criminally investigate or prosecute any alcohol or drug abuse patient.[facility] CenterIn the event this information is protected by the Federal Confidentiality of Alcohol and Drug Abuse Patient Records regulations: The Federal rules restrict any use of the information to criminally investigate or prosecute any alcohol or drug abuse patient.[facility] CenterIn the event this information is protected by the Federal Confidentiality of Alcohol and Drug Abuse Patient Records regulations: The Federal rules restrict any use of the information to criminally investigate or prosecute any alcohol or drug abuse patient.[facility] CenterIn the event this information is protected by the Federal Confidentiality of Alcohol and Drug Abuse Patient Records regulations: The Federal rules restrict any use of the information to criminally investigate or prosecute any alcohol or drug abuse patient.[facility] CenterIn the event this information is protected by the Federal Confidentiality of Alcohol and Drug Abuse Patient Records regulations: The Federal rules restrict any use of the information to criminally investigate or prosecute any alcohol or drug abuse patient.[facility] CenterIn the event this information is protected by the Federal Confidentiality of Alcohol and Drug Abuse Patient Records regulations: The Federal rules restrict any use of the information to criminally investigate or prosecute any alcohol or drug abuse patient.[facility] CenterIn the event this information is protected by the Federal Confidentiality of Alcohol and Drug Abuse Patient Records regulations: The Federal rules restrict any use of the information to criminally investigate or prosecute any alcohol or drug abuse patient.[facility] CenterIn the event this information is protected by the Federal Confidentiality of Alcohol and Drug Abuse Patient Records regulations: The Federal rules restrict any use of the information to criminally investigate or prosecute any alcohol or drug abuse patient.[facility] Care Teams (unrecognized sec tion and content) Shot Blaster Relationship Specialty Start Date End Date Shaun Carlin MD PCP - General Family Practice 07/07/18 Shot Blaster Relationship Specialty Start Date End Date Shaun Carlin MD PCP - General Family Practice 07/07/18 Shot Blaster Relationship Specialty Start Date End Date Shaun Carlin MD PCP - General Family Practice 07/07/18 Shot Blaster Relationship Specialty Start Date End Date Shaun Carlin MD PCP - General Family Practice 07/07/18 Shot Blaster Relationship Specialty Start Date End Date Shaun Carlin MD PCP - General Family Practice 07/07/18 Shot Blaster Relationship Specialty Start Date End Date Shaun Carlin MD PCP - General Family Practice 07/07/18 Shot Blaster Relationship Specialty Start Date End Date Shaun Carlin MD PCP - General Family Practice 07/07/18 Shot Blaster Relationship Specialty Start Date End Date Shaun Carlin MD PCP - General Family Practice 07/07/18 Shot Blaster Relationship Specialty Start Date End Date Shaun Carlin MD PCP - General Family Practice 07/07/18 Shot Blaster Relationship Specialty Start Date End Date Shaun Carlin MD PCP - General Family Practice 07/07/18 Shot Blaster Relationship Specialty Start Date End Date Shaun Carlin MD PCP - General Family Practice 07/07/18 Shot Blaster Relationship Specialty Start Date End Date Shaun Carlin MD PCP - General Family Practice 07/07/18 Shot Blaster Relationship Specialty Start Date End Date Shaun Carlin MD PCP - General Family Practice 07/07/18 Shot Blaster Relationship Specialty Start Date End Date Shaun Carlin MD PCP - General Family Medicine 07/07/18 Shot Blaster Relationship Specialty Start Date End Date Shaun Carlin MD PCP - General Family Medicine 07/07/18 Shot Blaster Relationship Specialty Start Date End Date Shaun Carlin MD PCP - General Family Medicine 07/07/18 Shot Blaster Relationship Specialty Start Date End Date Shaun Carlin MD PCP - General Family Medicine 07/07/18 Shot Blaster Relationship Specialty Start Date End Date Shaun Carlin MD PCP - General Family Medicine 07/07/18 Shot Blaster Relationship Specialty Start Date End Date Shaun Carlin MD PCP - General Family Medicine 07/07/18 Shot Blaster Relationship Specialty Start Date End Date Shaun Carlin MD PCP - General Family Medicine 07/07/18 Shot Blaster Relationship Specialty Start Date End Date Shaun Carlin MD PCP - General Family Medicine 07/07/18 Shot Blaster Relationship Specialty Start Date End Date Shaun Carlin MD PCP - General Family Medicine 07/07/18 Shot Blaster Relationship Specialty Start Date End Date Shaun Carlin MD PCP - General Family Medicine 07/07/18 Shot Blaster Relationship Specialty Start Date End Date Shaun Carlin MD PCP - General Family Medicine 07/07/18 Shot Blaster Relationship Specialty Start Date End Date Shaun Carlin MD PCP - General Family Medicine 07/07/18 Shot Blaster Relationship Specialty Start Date End Date Shaun Carlin MD PCP - General Family Medicine 07/07/18 Shot Blaster Relationship Specialty Start Date End Date Shaun Carlin MD PCP - General Family Medicine 07/07/18 Shot Blaster Relationship Specialty Start Date End Date Shaun Carlin MD PCP - General Family Medicine 07/07/18 Shot Blaster Relationship Specialty Start Date End Date Shaun Carlin MD PCP - General Family Medicine 07/07/18 Shot Blaster Relationship Specialty Start Date End Date Shaun Carlin MD PCP - General Family Medicine 07/07/18 Shot Blaster Relationship Specialty Start Date End Date Shaun Carlin MD PCP - General Family Medicine 07/07/18 Shot Blaster Relationship Specialty Start Date End Date Shaun Carlin MD PCP - General Family Medicine 07/07/18 Shot Blaster Relationship Specialty Start Date End Date Shaun Carlin MD PCP - General Family Medicine 07/07/18 Shot Blaster Relationship Specialty Start Date End Date Shaun Carlin MD PCP - General Family Medicine 07/07/18 Shot Blaster Relationship Specialty Start Date End Date Shaun Carlin MD PCP - General Family Medicine 07/07/18 Shot Blaster Relationship Specialty Start Date End Date Shaun Carlin MD PCP - General Family Medicine 07/07/18 Shot Blaster Relationship Specialty Start Date End Date Shaun Carlin MD PCP - General Family Medicine 07/07/18 Shot Blaster Relationship Specialty Start Date End Date Shaun Carlin MD PCP - General Family Medicine 07/07/18 Shot Blaster Relationship Specialty Start Date End Date Shaun Carlin MD PCP - General Family Medicine 07/07/18 Shot Blaster Relationship Specialty Start Date End Date Shaun Carlin MD PCP - General Family Medicine 07/07/18 Shot Blaster Relationship Specialty Start Date End Date Shaun Carlin MD PCP - General Family Medicine 07/07/18 Shot Blaster Relationship Specialty Start Date End Date Ritchie Lieberman MD [address] [facility] [place] [address] PCP - General Family Medicine 07/05/24 PodlogHui ac APRN.GROUP WORKER [address] [facility] [place] [address] Family Medicine 07/05/24 Shot Blaster Relationship Specialty Start Date End Date Ritchie Lieberman MD [address] [facility] [place] [address] PCP - General Family Medicine 07/05/24 PodlogarHui APRN.GROUP WORKER [address] [facility] [place] [address] Family Medicine 07/05/24 Shot Blaster Relationship Specialty Start Date End Date Ritchie Lieberman MD [address] [facility] [place] [address] PCP - General Family Medicine 07/05/24 Podlogar, Hui, DRAPERY HEM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 [address] [place] [address] Family Medicine 07/05/24 Shot Blaster Relationship Specialty Start Date End Date Ritchie Lieberman MD [address] [place] [address] PCP - General Family Medicine 07/05/24 Podlogar, ARELY AmesN.GROUP WORKER [address] [place] [address] Family Medicine 07/05/24 Shot Blaster Relationship Specialty Start Date End Date Ritchie Lieberman MD [address] [facility] [place] [address] PCP - General Family Medicine 07/05/24 Podlogar, Hui, DRAPERY HEM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 [address] [place] [address] Family Medicine 07/05/24 Shot Blaster Relationship Specialty Start Date End Date Ritchie Lieberman MD [address] [place] [address] PCP - General Family Medicine 07/05/24 Podlogar, Hui, DRAPERY HEM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 [address] [facility] [place] [address] Family Medicine 07/05/24 Podlogar, Hui, DRAPERY HEM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 [address] [place] [address] Fluorescent Lamp Replacer Family [facility] 08/21/24 Shot Blaster Relationship Specialty Start Date End Date Ritchie Lieberman MD [address] [place] [address] PCP - General Family Medicine 07/05/24 Podlogar, Hui, DRAPERY HEM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 [address] [place] [address] Family Medicine 07/05/24 Podlogar, Hui, DRAPERY HEM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 [address] [place] [address] [facility] 08/21/24 Shot Blaster Relationship Specialty Start Date End Date Ritchie Lieberman MD [address] [place] [address] PCP - General Family Medicine 07/05/24 Podlogar, Hui, DRAPERY HEM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 [address] [facility] [place] [address] Family Medicine 07/05/24 Podlogar, Hui, DRAPERY HEM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 [address] [place] [address] [facility] Shot Blaster Relationship Specialty Start Date End Date Ritchie Lieberman MD [address] [place] [address] PCP - General Family Medicine 07/05/24 Podlogar, Hui, DRAPERY HEM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 [address] [place] [address] Family Medicine 07/05/24 PodHui li, DRAPERY HEM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 [address] [facility] [place] [address] Fluorescent Lamp Replacer Family Medicine 08/21/24 Kinza Basilio APRN.GROUP WORKER [address] [facility] [place] [address] Fluorescent Lamp Replacer Family Medicine 11/26/24 12/05/24 Kinza Basilio APRN.GROUP WORKER [address] [facility] [place] [address] Fluorescent Lamp Replacer Family Medicine 12/06/24 Shot Blaster Relationship Specialty Start Date End Date Ritchie Lieberman MD [address] [facility] [place] [address] PCP - General Family Medicine 07/05/24 PodlogarHui, DRAPERY HEM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 [address] [facility] [place] [address] Family Medicine 07/05/24 Podlogar, Hui, DRAPERY HEM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 [address] [facility] [place] [address] Fluorescent Lamp Replacer Family Medicine 08/21/24 Kinza Basilio APRN.GROUP WORKER [address] [facility] [place] [address] Fluorescent Lamp Replacer Family Medicine 12/06/24 Shot Blaster Relationship Specialty Start Date End Date Ritchie Lieberman MD [address] [facility] [place] [address] PCP - General Family Medicine 07/05/24 Podlogar, Hui, DRAPERY HEM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 [address] [place] [address] Family [facility] 07/05/24 Hui Valdes APRN.GROUP WORKER [address] [place], [place] [address] [facility] 08/21/24 Kinza Basilio APRN.GROUP WORKER [address] [place], [place] [address] [facility] 12/06/24 Team Status: Active Member Role Status Dates Hui Podlogar AUDIO VISUAL MANAGER, 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 Primary Care Provider Active Team Status: Inactive Member Role Status Dates Dr. Flora Prieto DO Attending Provider Active Start: January 15, 2025 End: January 15, 2025 Dr. Flora Prieto DO Emergency Provider Active Start: January 15, 2025 End: January 15, 2025 Hui Podlogar AUDIO VISUAL MANAGER, 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 Primary Care Provider Active Start: January 15, 2025 End: January 15, 2025 Team Status: Inactive Member Role Status Dates Hui Podlogar AUDIO VISUAL MANAGER, 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 Primary Care Provider Active Start: February 02, 2025 End: February 02, 2025 Hui Podlogar AUDIO VISUAL MANAGER, 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 Referring Provider Active Start: February 02, 2025 End: February 02, 2025 Dr. Desean Rodriguez MD Attending Provider Active Start: February 02, 2025 End: February 02, 2025 Team Status: Inactive Member Role Status Dates Hui Podlogar AUDIO VISUAL MANAGER, 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 Primary Care Provider Active Start: February 14, 2025 End: February 14, 2025 Dr. Desean Rodriguez MD Attending Provider Active Start: February 14, 2025 End: February 14, 2025 Dr. Desean Rodriguez MD Referring Provider Active Start: February 14, 2025 End: February 14, 2025 Team Status: Active Member Role Status Dates Hui Podlogar AUDIO VISUAL MANAGER, 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 Primary Care Provider Active Start: February 14, 2025 Dr. Desean Rodriguez MD Attending Provider Active Start: February 14, 2025 Dr. Desean Rodriguez MD Referring Provider Active Start: February 14, 2025 Dr. Desean Rodriguez MD Other Provider Active St art: February 14, 2025 Team Status: Inactive Member Role Status Dates Hui Valdes AUDIO VISUAL MANAGER, 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 Primary Care Provider Active Start: February 21, 2025 End: February 21, 2025 Dr. Yvon Becker DO Emergency Provider Activ e Start: February 21, 2025 End: February 21, 2025 Goals (unrecognized section and content) Goals may be documented in a n alternate section FOR RECORDS PERTAINING TO PATIENTS WHO ARE OR HAVE BEEN ENROLLED IN A CHEMICAL DEPENDENCY/SUBSTANCEABUSE PROGRAM, SOME INFORMATION MAY BE OMITTED. This clinical summary was aggregated from multiple sources. Caution should be exercised in using it in the provision of clinical care. This summary normalizes information from multiple sources, and as a consequence, information in this document may materially change the coding, format and clinical context of patient data. In addition, data may be omitted in some cases. CLINICAL DECISIONS SHOULD BE BASED ON THE PRIMARY CLINICAL RECORDS. [employer] provides no warranty or guarantee of the accuracy or completeness of information in this document.
[2025-02-22 01:01] LABS: Absolute Lymphocyte Count 2.99 X10^3/uL (0.83-4.51); Absolute Neutrophil Count 8.4 X10^3/uL (2.0-7.7); Basophil% 0.8 % (0-1); Eosinophil# 0.19 X10^3/uL; Eosinophils% 1.5 % (0-5); Hematocrit 37.5 % (37-47); Hemoglobin 12.7 g/dL (12.0-15.0); Lymphocyte # 2.99 X10^3/ul (0.83-4.51); Lymphocyte % 23.7 % (19-41); Mean Corp Hgb Conc 33.9 g/dL (32-36); Mean Corpuscular Hgb 31.1 pg (27.0-32.0); Mean Corpuscular Volume 91.7 fL (81-99); Mean Platelet Vol. 9.5 fl (6.2-12.0); Monocyte# 0.91 X10^3/uL; Monocyte% 7.2 % (0-10); NRBC Flagged by Analyzer 0 % (0-5); Neutrophil # 8.37 X10^3/uL (2.7-7.7); Neutrophil % 66.6 % (47-70); POSITIVE COUNT YES; RBC Distribution Width CV 12.3 % (11.6-14.6); RBC Distribution Width SD 41.1 fl (35.1-43.9); Red Blood Count 4.09 M/mm3 (4.2-5.4); White Blood Count 12.6 K/mm3 (4.4-11.0)
[2025-02-22] MEDS: Ondansetron 4 MG/2 ML Vial IV ×2 (01:01→04:16)
[2025-02-22] MEDS: 0.9% Normal Saline (1000mL) 1,000 ML 999 ML IV (01:01)
[2025-02-22] MEDS: Morphine 4 MG/ML Syringe IV ×5 (01:02→17:45)
[2025-02-22 01:13] LABS: Differential Indicated SCAN CRITERIA MET
[2025-02-22 01:22] LABS: Lipase 37 U/L (13-75)
[2025-02-22 01:30] LABS: ALB/GLOB Ratio 1.6 RATIO (0.9-2.4); AST(SGOT) 38 U/L (<=31); Alanine Aminotransfer ALT/SGPT 18 U/L (<=34); Alkaline Phosphatase 59 U/L (35-104); Anion Gap 12 (5-15); BUN 10 mg/dL (4-19); Calcium,Total 9.1 mg/dL (7.6-11.0); Carbon Dioxide 21.6 mmol/L (21.0-32.0); Chloride 105 mmol/L (98-108); Creatinine, Serum 0.79 mg/dL (0.70-1.20); EST Glomerular Filtration Rate 97 (>60); Estimated Creatinine Clearance 95.38 ml/min (50-250); Globulin 2.6 g/dL (2.2-4.2); Glucose 92 mg/dL (70-99); Protein, Total 6.6 g/dL (5.9-8.4); Sodium Level 139 mmol/L (133-145); Total Bilirubin < 0.15 mg/dL (0.00-1.30)
[2025-02-22 02:00] LABS: Differential Comment SCANNED; Platelet Estimate ADEQUATE (ADEQ)
--- NOTE | 2025-02-22 02:16 | US_ITS ---
PROCEDURE: GALLBLADDER 02/22/2025 REASON FOR EXAM: RUQ PAIN COMPARISON: None FINDINGS: The liver is enlarged and measures 20 cm. It shows slightly increased parenchymal echogenicity. No obvious focal lesions. Portal vein is patent with hepatopetal flow. Gallbladder: Is distended and measures 16.2 cm. Positive Arana's sign is noted. Trace pericholecystic fluid collection is noted. Multiple echogenic stones are seen. Focal gallbladder wall thickening measuring 7 mm is noted. CBD measures 3 mm. Pancreas is unremarkable with no obvious lesions. Right kidney measures 10.5 x 5.6 x 5.5 cm. Cortex 1.5 cm. No hydronephrosis. No stones. No mass. US/Gallbladder IMPRESSION: Findings suggest acute calculus cholecystitis. Gallbladder hydrops. Fatty hepatomegaly. Findings were discussed with Dr. Smith at 3:41 am Reading Location: [place] [address]
[2025-02-22] MEDS: Piperacil/Tazobactam 4.5 GM in 0.9% Normal Saline (100mL MB+) 100 ML IV (04:18)
--- OUTSIDE RECORDS SUMMARY | 2025-02-22 04:18 | XMS RPT_ITS | CCD ---
Author Organization [facility] Care Team Providers Care Numerical Control Router Operator Name Role Phone [facility] Unavailable Unavai lable [facility] Unavailable Unavai lable BULGRIN, LOURDES Unavailable Unavailable [place] Unavailable Unavai lable UNKNOWN, PROVIDER Unavailable Unavailable Christina Rangel Primary Care Provider AA UNKNOWN PCP, UNKNOWN Primary Care Unavaila CARLEY Colon Admitting Unavailable CARLEY COOPER Attending Unavailable MEREDITH MUNOZ V Admitting Unavailable MEREDITH MUNOZ V Attending Unavailable SHAUN CARLIN Primary Care Unavailable Christina Rangel Primary Care Provider Unavailabl e Desiree Casarez Unavailable Unavailable None, No PCP Unavailable Unavailable Frances Padgett Unavailable Unavailable Christina Rangel Primary Care Provider Unavailabl Christina Pace Primary Care Provider Unavailabl e Shaun Carlin MD Primary Care Provider Shaun Carlin Unavailable Unavailable Unavailable Shaun Carlin MD Primary Care Provider [phone] Shaun Carlin MD Primary Care Provider Shaun Carlin MD Primary Care Provider [phone] Dr. Shaun Carlin Primary Care Unavailable JULY [...] Ritchie Lieberman MD Primary Care Provider Podlogar OIL FIELD PIPELINE SUPERVISOR.PRESS WASHER, Hui Unavailable Podlogar OIL FIELD PIPELINE SUPERVISOR.PRESS WASHER, Hui Unavailable [place] OIL FIELD PIPELINE SUPERVISOR.PRESS WASHERKinza Unavailable [place] OIL FIELD PIPELINE SUPERVISOR.PRESS WASHER, Kinza Unavailable PODLOGAR, HUI Attending Unavailable BURSLEY, [...] Dr. Flora Prieto DO Emergency Provider Podlogar ROTARY ENVELOPE MACHINE OPERATOR-C, Hui Primary Care Provider Podlogar ROTARY ENVELOPE MACHINE OPERATOR-C, Hui Referring Provider Jennifer MARADIAGA, Dr. Desean Cavazos Attending Provider Jennifer MARADIAGA, Dr. Desean Cavazos Referring Provider Jennifer MARADIAGA, Dr. Desean Cavazos Other Provider Desean Rodriguez Referring Unavailable Podlogar ROTARY ENVELOPE MACHINE OPERATOR, Hiu Primary Care Unavailable Desean Rodriguez Consulting Unavailable Desean Rodriguez Attending Unavailable Desean Rodriguez Referring Unavailable Podlogar ROTARY ENVELOPE MACHINE OPERATOR, Hui Primary Care Unavailable Desean Rodriguez Attending Unavailable Podlogar ROTARY ENVELOPE MACHINE OPERATOR, Hui Primary Care Unavailable Flora Prieto Attending Unavailable Podlogar ROTARY ENVELOPE MACHINE OPERATOR, Hui Primary Care Unavailable Podlogar ROTARY ENVELOPE MACHINE OPERATOR, Hui Referring Unavailable Desean Rodriguez Attending Unavailable Dr. Yvon Becker DO Emergency Provider Allergies Allergy Classification Reported Allergen(s) Allergy Type Date of Onset Reaction(s) Facility (20 sources) Amoxicillin; Translations: [amoxicillin] Drug Allergy 04-30-2016 Unknown [place], [place] (1 source) Amoxicillin Drug Allergy [facility] Repository (1 source) Amoxicillin Drug Allergy 02-14-2025 [facility] Repository Medications Current Medications Medication Drug Class(es) [...] every 6 hours as needed for pain. [id number] 200 actuat albuterol 0.09 mg/actuat metered dose [...] 12:00am Start: 12-31-2024 take 1 capsule by [facility] once daily atomoxetine 80 mg capsule [...] Comment on above: Take 2 capsules by [facility] three times daily as needed for [...] Comment on above: Take 1 tablet by [facility] every 12 hours for 10 [...] / neomycin 3.5 mg/ml / polymyxin b 76010 unt/ml otic solution (2 sources) Aminoglycoside Antibacterial, Polymyxin-class Antibacterial, Corticosteroid Start: 06-19-2021 End: 06-19-2021 hxsghtqs-zfaqjfcgg-jrufntsmb isone (CORTISPORIN) 3.5-41942-[address] 4 drops into the left ear 3 times daily for 10 days Instill into left Ear 10 mL 0 06/19/2021 06/19/2021 Discontinued (Availability) Start: 06-19-2021 End: 06-29-2021 urafwrfm-nfvolqfiv-pcsmoewxz isone 1 % SOLN otic solution Place [...] Comment on above: Take 1 tablet by [facility] once daily. nitrofurantoin, macrocrystals 25 mg / nitrofurantoin, monohydrate 75 mg oral capsule (2 sources) Nitrofuran Antibacterial Start: 03-28-20 End: 04-07-20 take 1 capsule by mouth twice daily nitrofurantoin monohydrate and macrocrystal (MACROBID) 100 mg capsule Take 1 capsule by mouth twice daily for 10 days. 20 capsule 0 03/28/2022 04/07/2022 Active Comment on above: Take 1 capsule by [facility] twice daily for 10 days. nystatin [id number] unt/ml topical cream (4 sources) Polyene Antifungal [...] Start: 12-31-2024 take 1 capsule by [facility] once daily venlafaxine ER (EFFEXOR XR) 75 [...] Discontinued Start: 06-05-2019 take 1 capsule by [facility] once daily venlafaxine (EFFEXOR XR) 150 MG extended release capsule Take 1 capsule by mouth daily 30 capsule 0 06/05/2019 Active Start: 06-05-2019 take 1 capsule by mo [facility] once daily venlafaxine (EFFEXOR XR) 150 MG [...] on above: Take 1 capsule by mo [facility] twice daily. famotidine 20 mg oral tablet [...] Comment on above: Take 1 tablet by [facility] twice daily. Take 20 mg [...] application to affected area twice daily. levonorgestrel 0.897883 mg/hr intrauterine system (1 source) Progestin, Progestin-containing [...] on above: Take 1 capsule by mo [facility] once daily. ondansetron 8 mg oral tablet [...] above: Take by mouth. polyethylene glycol 3350 63415 mg powder for oral solution (20 sources) Osmotic Laxative Start: 05-21-20 End: 07-05-20 polyethylene glycol 3350 (MIRALAX, GLYCOLAX) 17 gram/dose powder Indications: Constipation, unspecified constipation type Take 17 g by mouth once daily. Dissolve dose in 4 - 8 ounces of liquid and take as directed. 119 g 1 07/05/2022 Active Start: 04-24-2022 End: 05-19-2022 polyethylene glycol 3350 (HI RALAX, GLYCOLAX) 17 gram/dose powder Indications: Constipation, unspecified constipation type TAKE 17 G BY MOUTH ONCE DAILY. DISSOLVE DOSE IN 4 - 8 OUNCES OF LIQUID AND TAKE DIRECTED. 119 g 1 04/24/2022 05/19/2022 Discontinued Start: 04-05-2022 End: 04-24-2022 polyethylene glycol 3350 (HI RALAX) 17 gram/dose powder Indications: Constipation, unspecified [...] 1 TABLET BY LIZBETH TH EVERY DAY Fagjlnyn-Tt-Wia-Fe-F A tab (20 sources) Start: 2 take 1 tablet by mouth once daily Gbuvxkbk-Su-Kto-Fe-FA tab Indications: Amenorrhea, secondary Take 1 tablet [...] 10-18-2024 Episodic Other aftercare (1 source) Other snf (current) drug therapy; Translations: [OTH SEAM RUBBING MACHINE OPERATOR CURRENT DRUG THERAPY] Onset: 08-10-2019 Episodic Other [...] Range Facility Absolute lymphocyte countOrd ered By: Yovn Becker on 02-21-2025 Lymphocytes Auto (Unsp spec) [#/Vol] 2.68 10*3/uL 0.83-4.51 [facility] Absolute neutrophil countOrd ered By: Yvon Becker on 02-21-2025 Neutrophils (Bld) [#/Vol] 5.3 10*3/uL 2.0-7.7 [facility] Anion gap in Serum or Plasma Ordered By: Yvon Becker on 02-21-2025 Anion gap [Moles/Vol] 11 mmol/L - [facility] Automated lymphocyte count a s percentage of total leukocytesOrdered By: Yvon Becker on 02-21-2025 Lymphocytes/100 WBC Auto (Unsp spec) 29.7 % - [facility] BUN/creatinine ratioOrdered By: Yvon Becker on 02-21-2025 Urea nitrogen/Creatinine [Mass ratio] 15.4 mg/mg - [facility] Basophil percentageOrdered B y: Yvon Becker on 02-21-2025 Basophils/100 WBC (Bld) 0.9 % 0-1 [facility] Bilirubin Test strip Ql (U)O rdered By: Yvon Beckre on 02-21-2025 Bilirubin Ql (U) Negative Negative [facility] Bilirubin, totalOrdered By: Yvon Becker on 02-21-2025 Bilirubin [Mass/Vol] 0.20 mg/dL 0.00-1.30 [facility] Carbon dioxide, total [Moles /volume] in Central venous bloodOrdered By: Yvon Becker on 02-21-2025 CO2 [Moles/Vol] 22.8 mmol/L 21.0-32.0 [facility] Chloride assayOrdered By: Yashira Becker on 02-21-2025 Chloride [Moles/Vol] 106 mmol/L 98-108 [facility] Eosinophil percentageOrdered By: Yvon Becker on 02-21-2025 Eosinophils/100 WBC (Bld) 2.0 % 0-5 [facility] Erythrocyte distribution wid th ratioOrdered By: Yvon Rosita on 02-21-2025 Erythrocyte distribution width (RBC) [Ratio] 12.2 % 11.6-14.6 [facility] Erythrocyte distribution wid th standard deviationOrdered By: Yvon Vizcarra on 02-21-2025 Erythrocyte distribution width (RBC) [Ratio] 42.2 fl 35.1-43.9 [facility] Glomerular filtration rate ( GFR) estimation/1.73 sq m using serum, plasma, or whole bOrdered By: Yvon Becker on 02-21-2025 GFR/1.73 sq M.predicted among non-blacks MDRD (S/P/Bld) [Vol rate/Area] 108 mL/min/{1.73_m2} >60 [facility] Comment on above: mL/min/1.73m2 CKD-EP I Creatinine Equation (2020) Hematocrit Auto (Bld) [Volum e fraction]Ordered By: Yvon Becker on 02-21-2025 Hematocrit (Bld) [Volume fraction] 41.0 % 37-47 [facility] Hemoglobin measurementOrdere d By: Yvon Becker on 02-21-2025 Hemoglobin (Bld) [Mass/Vol] 13.5 g/dL 12.0-15.0 [facility] Immature granulocytes/100 WB C Auto (Bld)Ordered By: Yvon Becker on 02-21-2025 Immature granulocytes/100 WBC (Bld) 0.200 % 0.0-0.9 [facility] Comment on above: IG% - Immature Granu locytes (promyelocytes, myelocytes and metamyelocytes) > 1% indicates that a LEFT SHIFT is Present. Ketones Test strip Ql (U)Ord ered By: Yvon Becker on 02-21-2025 Ketones Ql (U) Negative Negative [facility] Laboratory - Chemistry and C hemistry - challengeOrdered By: Yvon Becker on 02-21-2025 AST [Catalytic activity/Vol] 34 U/L High <32 [facility] Comment on above: Hemolysis present, R esults could be affected. Lactic acid measurementOrder ed By: Yvon Becker on 02-21-2025 Lactate [Moles/Vol] 1.8 mmol/L 0.0-2.0 [facility] Lipase measurementOrdered By : Yvon Becker on 02-21-2025 Lipase [Catalytic activity/Vol] 46 U/L 13-75 [facility] Comment on above: Please note:LIPASE r evised reference range effective 22. New Lipase methodology. Expected to produce lower values than the previous assay method. NEW Reference Range: 13 - 75 U/L MCV (mean corpuscular volume ) determinationOrdered By: Yvon Becker on 02-21-2025 MCV (RBC) [Entitic vol] 93.2 fL 81-99 [facility] Mean corpuscular hemoglobin (MCH) determinationOrdered By: Yvon Becker on 02-21-2025 MCH (RBC) [Entitic mass] 30.7 pg 27.0-32.0 [facility] Mean corpuscular hemoglobin concentration (MCHC) determinationOrdered By: Yvon Becker on 02-21-2025 MCHC (RBC) [Mass/Vol] 32.9 g/dL 32-36 [facility] Mean platelet volume determi nationOrdered By: Yvon Becker on 02-21-2025 Platelet mean volume (Bld) [Entitic vol] 9.3 fL 6.2-12.0 [facility] Microscopic analysis of urin e for red blood cells (RBC)Ordered By: Yvon Becker on 02-21-2025 Microscopic analysis of urine for red blood cells (RBC) 0-5 SEEN /hpf 0-5 [facility] Monocyte percentageOrdered B y: Yvon Becker on 02-21-2025 Monocytes/100 WBC (Bld) 8.0 % 0-10 [facility] Mucus LM Ql (Urine sed)Order ed By: Yvon Becker on 02-21-2025 Mucus Ql (Urine sed) 0 SEEN /hpf [facility] Neutrophil percentageOrdered By: Yvon Becker on 02-21-2025 Neutrophils/100 WBC (Bld) 59.2 % 47-70 [facility] Nitrite Test strip Ql (U)Ord ered By: Yvon Becker on 02-21-2025 Nitrite Ql (U) Negative Negative [facility] Nucleated red blood cell per centageOrdered By: Yvon Becker on 02-21-2025 Nucleated RBC/100 WBC (Bld) [Ratio] 0 % 0-5 [facility] Platelet countOrdered By: Yashira gamblel Rosita on 02-21-2025 Platelets (Bld) [#/Vol] 390 10*3/uL 150-450 [facility] Potassium measurement (mass/ volume)Ordered By: Yvon Becker on 02-21-2025 Potassium (Unsp spec) [Mass/Vol] 5.0 mmol/L 3.3-5.1 [facility] Comment on above: Hemolysis present, R esults could be affected. Protein Test strip Ql (U)Ord ered By: Yvon Becker on 02-21-2025 Protein Ql (U) Negative Negative [facility] RBC Auto (Bld) [#/Vol]Ordere d By: Yvon Becker on 02-21-2025 RBC (Bld) [#/Vol] 4.40 10*6/uL 4.2-5.4 [facility] Serum creatinine measurement (mass/volume)Ordered By: Yvon Becker on 02-21-2025 Creatinine [Mass/Vol] 0.73 mg/dL 0.70-1.20 [facility] Serum globulin measurementOr dered By: Yvon Becker on 02-21-2025 Globulin (S) [Mass/Vol] 2.9 g/dL 2.2-4.2 [facility] Serum glucose measurement (m ass/volume)Ordered By: Yvon Becker on 02-21-2025 Glucose [Mass/Vol] 94 mg/dL 70-99 [facility] Serum or plasma alanine daugherty otransferase (ALT) measurementOrdered By: Yvon Becker on 02-21-2025 ALT [Catalytic activity/Vol] 16 U/L <35 [facility] Comment on above: Hemolysis present, R esults could be affected. Serum or plasma albumin hong urement (mass/volume)Ordered By: Yvon Vizcarra on 02-21-2025 Albumin [Mass/Vol] 4.0 g/dL 3.5-5.0 [facility] Serum or plasma albumin/glob ulin mass ratioOrdered By: Yvon Becker on 02-21-2025 Albumin/Globulin [Mass ratio] 1.4 {ratio} 0.9-2.4 [facility] Serum or plasma alkaline katherine sphatase measurementOrdered By: Yvon Becker on 02-21-2025 ALP [Catalytic activity/Vol] 66 U/L 35-104 [facility] Comment on above: Hemolysis Present, R esults may be affected. Serum or plasma calcium hong urement (mass/volume)Ordered By: Yvon Vizcarra on 02-21-2025 Calcium [Mass/Vol] 9.2 mg/dL 7.6-11.0 [facility] Serum or plasma urea nitroge n measurement (mass/volume)Ordered By: Yvon Becker on 02-21-2025 Urea nitrogen [Mass/Vol] 11 mg/dL 4-19 [facility] Sodium levelOrdered By: Joen Becker on 02-21-2025 Sodium [Moles/Vol] 140 mmol/L 133-145 [facility] Squamous epithelial cells de tection in urine sediment by light microscopyOrdered By: Yvon Becker on 02-21-2025 Epithelial cells.squamous LM Ql (Urine sed) 0-5 SEEN /hpf 5-10 [facility] Total proteinOrdered By: Claude Becker on 02-21-2025 Protein [Mass/Vol] 6.9 g/dL 5.9-8.4 [facility] Urine clarityOrdered By: Claude Becker on 02-21-2025 Clarity (U) Clear Clear [facility] Urine color determinationOrd ered By: Yvon Becker on 02-21-2025 Color (U) Straw Yellow [facility] Urine glucose detectionOrder ed By: Yvon Becker on 02-21-2025 Glucose Ql (U) Normal mg/dl Normal [facility] Urine leukocyte esterase det ection by dipstickOrdered By: Yvon Becker on 02-21-2025 Leukocyte esterase Test strip Ql (U) Negative Negative [facility] Urine pHOrdered By: Yvon Arita on 02-21-2025 pH (U) 7.0 [pH] 5.0 - 8.0 [facility] Urine sediment bacteria coun t by microscopy (number/high power field)Ordered By: Yvon Becker on 02-21-2025 Bacteria LM.HPF (Urine sed) [#/Area] 0 /[HPF] None Seen [facility] Urine specific gravity measu rementOrdered By: Yvon Becker on 02-21-2025 Specific gravity (U) [Rel density] 1.010 1.002-1.030 [facility] Urine urobilinogen measureme ntOrdered By: Yvon Becker on 02-21-2025 Urobilinogen Ql (U) Normal mg/dl Normal [facility] White blood cell (WBC) count Ordered By: Yvon Becker on 02-21-2025 WBC (Bld) [#/Vol] 9.0 10*3/uL 4.4-11.0 [facility] White blood cell countOrdere d By: Yvon Becker on 02-21-2025 White blood cell count 0-5 SEEN /hpf 0-5 [facility] Discharge Instructionon 06 Discharge Instruction [facility] Medical Records Department [address] [place] [address] Instructions for Home/Discharge Instructions 02/14/25 1536 MR#: [id number] Acct: [id number] Name: SIA OLIVERA Rep #: [id number] : 1985 39 From: Desean Rodriguez MD PCP: Hui Valdes NP-C [place] [facility] [place] Instructions Diet Discharge Diet: Light diet [...] Provider: Hui Valdes NP Instructions Print Language: Eritrean Discharge Orders/Prescriptions Prescriptions: New oxycodone-acetaminophen [Percocet] 5-325 [...] PO QDAY Referrals / Follow Up: Hui aVldes NP, ROTARY ENVELOPE MACHINE OPERATOR-C [Primary Care Provider] - Disposition Disposition (needs filled in before D/C Order can be placed): Home, Self Care 02/14/25 1546 Desean Rodriguez MD CC: ROTARY ENVELOPE MACHINE OPERATOR-C Hui Podlogar Signed [facility] MR/POSTOP.[facility] 02-14-2025 MR/POSTOP.[facility] Medical Records Department [address] [place] [address] Anesthesia Postop Eval I 02/14/25 1554 MR#: [id number] Acct: [id number] Name: SIA OLIVERA Rep #: [id number] : 1985 39 From: Royce Gomez CRNA PCP: Hui Valdes ROTARY ENVELOPE MACHINE OPERATOR-C Status:REG SDC Y Race: C Location: [place] [address] Anesthesia: Postop Eval I Current Vital Signs [...] document: Postop Eval 1 completed: Yes 02/14/25 6872 Date Royce Gomez BRAKE MECHANIC Cosigner Signature: Date CC: Signed Normal [facility] MR/[id number] 02-14-2025 MR/POSTOPAN2 [facility] Medical Records Department [address] [place] [address] Anesthesia Postop Eval II 02/14/25 1637 MR#: [id number] Acct: [id number] Name: SIA OLIVERA Rep #: [id number] : 1985 39 From: Guille Shin MD PCP: KOSTA Gomez Status:REG SDC Y Race: C Location: [place] [address]- Anesthesia Postop Eval I Sum Postop Eval Completion status Anesthesia document: Postop Eval 1 completed: Yes Anesthesia Postop Eval I Summary Anesthesia Postop Eval I Summary: Anesthesia Postop Eval I: Assessment Summary Airway patent Yes 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 Spontaneous unlabored Yes 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 respirations Mental status Awake,Calm 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 nausea No 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 Vomiting No 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 Anesthesia Postop Eval I: Fluid Summary Crystalloid volume administer 1,000 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 (ml) Colloids volume administered ( ml) Blood Product volume administered (ml) Total IV fluid infused 1,000 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 Anesthesia Postop Eval I: Summary Notes Anesthesia Complication No 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 Anesthesia Complication Comment: Post-operative progress note Anesthesia: Postop Eval II Evaluation Mental status: Awake Pain Level: 0 nausea: No Vomiting: No Complications Anesthesia Complication: No 02/14/25 1637 Date Guille Shin MD Cosigner Signature: Date CC: Signed Normal [facility] Operative Reporton 5 Operative Report [facility] Medical Records Department [address] [place] [address] Operative Report 02/14/25 1546 MR#: [id number] Acct: [id number] Name: SIA OLIVERA Rep #: [id number] : 1985 39 From: Desean Rodriguez MD PCP: Hui Valdes ROTARY ENVELOPE MACHINE OPERATOR-C [place] [facility] Location: [place] [address] Problems Associated Problem List Diagnoses (1) Ventral hernia: Procedures Digestive 40xxx-49xxx: 89744 RPR AA HRN 11-22 NCR/STRN Operative Report (Standard) Operative Information Date of Procedure: 02/14/25 Pre-Operative Diagnosis: Ventral hernia -chronically incarcerated Post-Operative Diagnosis: Same Surgery/Procedure Performed: Open ventral hernia repair with mesh newspaper editor managing: Yes Apparel Merchandiser: Kristine Larose Tasks completed by first assistant manager: Closing and Retracting Additional administrative personal assistant?: No Type of Anesthesia: General and Local [...] prophylaxis not ordered: Treatment Not Indicated 02/14/25 4549 Cosigner Signature (if applicable): CC: KOSTA Ames Podlogar; Dr. Desean Rodriguez MD Signed Normal [facility] ,Urineon 02-14-2025 Beta HCG ( test) Ql (U) Negative Normal [facility] Comment on above: Result Comment: Very dilute urine specimens, as indicated by a low specific gravity, may not contain parts counter representative levels of hCG. If is still suspected, a first morning urine specimen should be collected 48 hours later and tested. Performed By: #### L 400.7600 #### [facility] [place], [address] Surgery Specimen Level IIon 02-14-2025 Surgery Specimen Level II Patient Age/Sex Location Account Attending Physician AMANUELSIA MARX Mirza 39/F [facility] [id number] Dr. Desean Rodriguez MD Specimen: [id number] Received: 02/15/25 Status: ANALia Dorado Num: [id number] Spec Type: Hernia Subm Dr: Dr. Desean [...] vasculature. No nodules or necrosis is identified. Cloth Reeler sections:A1. Semisaccular portion with fibrous areasA2. Larger finely lobulated fragment [facility] 02-15-2025 CPT:55321 Patient Age/Sex Location Account Attending Physician SIA OLIVERA Mirza 39/F [facility] [id number] Dr. Desean Rodriguez MD Signed (signature on file) Dr. Joanna Ram MD 02/17/25 1314 Normal [facility] Comment on above: Performed By: #### P LYNDSEYII #### [facility] [address] [place] [address]. [place], [place], [id number] Urine testOrdered By: Paul Cox on 02-14-2025 HCG ( test) Ql (U) Negative [facility] Comment on above: Very dilute urine sp ecimens, as indicated by a low specificgravity, may not contain parts counter representative levels of hCG. If is still suspected, a first morning urinespecimen should be collected 48 hours later and tested. Surgery Visit Reporton 02-02 Surgery Visit Report [facility] [address] [place], [place] [address]. [address] [place] [address] OFFICE VISIT Date of Service: 02/02/25 MR#: [id number] Acct: [id number] Name: SIA OLIVERA Mirza Rep #: [id number] : 1985 Provider: Dr. Desean ritter MD Age/Sex: 39/F Location: [facility] Status: Signed Intake Vital Signs 01/15/25 17:48 [...] General: cooperative, healthy appearing and comfortable [facility] Head: normal to inspection, normocephalic and [...] completely reducibl (more content not included)... Normal [facility] Abdomen/Pelvis W IV Cont ONL Yon 01-15-2025 Abdomen/Pelvis W IV Cont ONLY [facility] Imaging Services [address] [place] [address] Abdomen/Pelvis W IV Cont ONLY MR#: [id number] Acct: [id number] Name: SIA OLIVERA Rep #: [id number] : 1985 F 39 From: Seng zaman MD PCP: KOSTA Gomez Status: REG ER Study: Abdomen/Pelvis W IV Cont ONLY Date of Exam: Exam# [id number] Ordering Dr: Cierra Dinero PROCEDURE: ABDOMEN/PELVIS W [...] BURAKJUNITOREMI CC: KOSTA Ames Podlogar; YVAN Cadena Music Minister: Signed Normal [facility] Absolute lymphocyte countOrd ered By: Cierra Dinero on 01-15-2025 Lymphocytes Auto (Unsp spec) [#/Vol] 3.13 10*3/uL 0.83-4.51 [facility] Absolute neutrophil countOrd ered By: Cierra Dinero on 01-15-2025 Neutrophils (Bld) [#/Vol] 5.2 10*3/uL 2.0-7.7 [facility] Anion gap in Serum or Plasma Ordered By: Cierra Dinero on 01-15-2025 Anion gap [Moles/Vol] 12 mmol/L 5- [facility] Automated lymphocyte count a s percentage of total leukocytesOrdered By: Cierra Dinero on 01-15-2025 Lymphocytes/100 WBC Auto (Unsp spec) 33.2 % 19-41 [facility] BUN/creatinine ratioOrdered By: Cierra Dinero on 01-15-2025 Urea nitrogen/Creatinine [Mass ratio] 14.5 mg/mg 10- [facility] Basic Metabolic Profile (BMP )on 01-15-2025 BUN/CRE 14.5 RATIO Normal - [facility] Comment on above: Performed By: #### L 500.2500, L100.0100 #### [facility] [address] [place], [address] Calcium [Mass/Vol] 9.2 mg/dL Normal 7.6-11.0 [facility] Comment on above: Performed By: #### L 500.2500, L100.0100 #### [facility] [address] [place], [address] Chloride [Moles/Vol] 104 mmol/L Normal 98-108 [facility] Comment on above: Performed By: #### L 500.2500, L100.0100 #### [facility] [address] [place], [address] CO2 [Moles/Vol] 22.8 mmol/L Normal 21.0-32.0 [facility] Comment on above: Performed By: #### L 500.2500, L100.0100 #### [facility] [address] [place], [address] Creatinine [Mass/Vol] 0.76 mg/dL Normal 0.70-1.20 [facility] Comment on above: Performed By: #### L 500.2500, L100.0100 #### [facility] [address] [place], [address] ECRCL 99.31 ml/min Normal 50-250 [facility] Comment on above: Performed By: #### L 500.2500, L100.0100 #### [facility] [address] [place], [address] GAP 12 Normal 5-15 [facility] Comment on above: Performed By: #### L 500.2500, L100.0100 #### [facility] [address] [place], [address] GFR/1.73 sq M.predicted among non-blacks MDRD (S/P/Bld) [Vol rate/Area] 103 mL/min/{1.73_m2} Normal >60 [facility] Comment on above: Result Comment: mL/m in/1.73m2 CKD-EPI Creatinine Equation (2020) Performed By: #### L 500.2500, L100.0100 #### [facility] [address] [place], [address] Glucose [Mass/Vol] 94 mg/dL Normal 70-99 [facility] Comment on above: Performed By: #### L 500.2500, L100.0100 #### [facility] [address] [place], [address] Potassium [Moles/Vol] 4.2 mmol/L Normal 3.3-5.1 [facility] Comment on above: Performed By: #### L 500.2500, L100.0100 #### [facility] [address] [place], [address] Sodium [Moles/Vol] 139 mmol/L Normal 133-145 [facility] Comment on above: Performed By: #### L 500.2500, L100.0100 #### [facility] [address] [place], [address] Urea nitrogen [Mass/Vol] 11 mg/dL Normal 4-19 [facility] Comment on above: Performed By: #### L 500.2500, L100.0100 #### [facility] [address] [place], [address] Basophil percentageOrdered B y: Cierra Dinero on 01-15-2025 Basophils/100 WBC (Bld) 1.1 % High 0-1 [facility] CBC W/Diff, Automatedon Absolute Lymph 3.13 X10 3/uL Normal 0.83-4.51 [facility] Comment on above: Performed By: #### L 500.2500, L100.0100 #### [facility] [address] [place], [address] Absolute Neut 5.2 X10 3/uL Normal 2.0-7.7 [facility] Comment on above: Performed By: #### L 500.2500, L100.0100 #### [facility] [address] [place], [address] Basophils/100 WBC (Bld) 1.1 % High 0-1 [facility] Comment on above: Performed By: #### L 500.2500, L100.0100 #### [facility] [address] [place], [address] Eosinophils/100 WBC (Bld) 2.0 % Normal 0-5 [facility] Comment on above: Performed By: #### L 500.2500, L100.0100 #### [facility] [address] [place], [address] Erythrocyte distribution width (RBC) [Ratio] 12.1 % Normal 11.6-14.6 [facility] Comment on above: Performed By: #### L 500.2500, L100.0100 #### [facility] [address] [place], [address] Hematocrit (Bld) [Volume fraction] 40.0 % Normal 37-47 [facility] Comment on above: Performed By: #### L 500.2500, L100.0100 #### [facility] [address] [place], [address] Hemoglobin (Bld) [Mass/Vol] 13.8 g/dL Normal 12.0-15.0 [facility] Comment on above: Performed By: #### L 500.2500, L100.0100 #### [facility] [address] [place], [address] IG% 0.200 Normal 0.0-0.9 [facility] Comment on above: Result Comment: IG% - Immature Granulocytes (promyelocytes, myelocytes and metamyelocytes) > 1% indicates that a LEFT SHIFT is Present. Performed By: #### L 500.2500, L100.0100 #### [facility] [address] [place], [address] Lymphocytes/100 WBC (Bld) 33.2 % Normal 19-41 [facility] Comment on above: Performed By: #### L 500.2500, L100.0100 #### [facility] [address] [place], [address] MCH (RBC) [Entitic mass] 31.4 pg Normal 27.0-32.0 [facility] Comment on above: Performed By: #### L 500.2500, L100.0100 #### [facility] [address] [place], [address] MCHC (RBC) [Mass/Vol] 34.5 g/dL Normal 32-36 [facility] Comment on above: Performed By: #### L 500.2500, L100.0100 #### [facility] [address] [place], [address] MCV (RBC) [Entitic vol] 91.1 fL Normal 81-99 [facility] Comment on above: Performed By: #### L 500.2500, L100.0100 #### [facility] [address] [place], [address] Monocytes/100 WBC (Bld) 8.8 % Normal 0-10 [facility] Comment on above: Performed By: #### L 500.2500, L100.0100 #### [facility] [address] [place], [address] Neutrophils/100 WBC (Bld) 54.7 % Normal 47-70 [facility] Comment on above: Performed By: #### L 500.2500, L100.0100 #### [facility] [address] [place], [address] Nucleated RBC (Bld) [#/Vol] 0 10*3/uL Normal 0-5 [facility] Comment on above: Performed By: #### L 500.2500, L100.0100 #### [facility] [address] [place], [address] Platelet mean volume (Bld) [Entitic vol] 8.9 fL Normal 6.2-12.0 [facility] Comment on above: Performed By: #### L 500.2500, L100.0100 #### [facility] [address] [place], [address] Platelets (Bld) [#/Vol] 365 10*3/uL Normal 150-450 [facility] Comment on above: Performed By: #### L 500.2500, L100.0100 #### [facility] [address] [place], [address] RBC (Bld) [#/Vol] 4.39 10*6/uL Normal 4.2-5.4 [facility] Comment on above: Performed By: #### L 500.2500, L100.0100 #### [facility] [address] [place], [address] RDW SD 40.7 fl Normal 35.1-43.9 [facility] Comment on above: Performed By: #### L 500.2500, L100.0100 #### [facility] [address] [place], [address] WBC (Bld) [#/Vol] 9.4 10*3/uL Normal 4.4-11.0 [facility] Comment on above: Performed By: #### L 500.2500, L100.0100 #### [facility] [address] [place], [address] Carbon dioxide, total [Moles /volume] in Central venous bloodOrdered By: Cierra Dinero on 01-15-2025 CO2 [Moles/Vol] 22.8 mmol/L 21.0-32.0 [facility] Chloride assayOrdered By: Mona Dinero on 01-15-2025 Chloride [Moles/Vol] 104 mmol/L 98-108 [facility] Emergency Department Summary on 01-15-2025 Emergency Department Summary [facility] Medical Records Department [address] [place] [address] Emergency Department Summary 01/15/25 MR#: [id number] Acct: [id number] Name: SIA OLIVERA Mirza Rep #: [id number] : 1985 39 From: Cierra SANTORO 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 Normal [facility] Eosinophil percentageOrdered By: Cierra Dinero on 01-15-2025 Eosinophils/100 WBC (Bld) 2.0 % 0-5 [facility] Erythrocyte distribution wid th ratioOrdered By: Cierra Dinero on 01-15-2025 Erythrocyte distribution width (RBC) [Ratio] 12.1 % 11.6-14.6 [facility] Erythrocyte distribution wid th standard deviationOrdered By: Cierra Dinero on 01-15-2025 Erythrocyte distribution width (RBC) [Ratio] 40.7 fl 35.1-43.9 [facility] Glomerular filtration rate ( GFR) estimation/1.73 sq m using serum, plasma, or whole bOrdered By: Cierra Dinero on 01-15-2025 GFR/1.73 sq M.predicted among non-blacks MDRD (S/P/Bld) [Vol rate/Area] 103 mL/min/{1.73_m2} >60 [facility] Comment on above: mL/min/1.73m2 CKD-EP I Creatinine Equation (2020) Hematocrit Auto (Bld) [Volum e fraction]Ordered By: Cierra Dinero on 01-15-2025 Hematocrit (Bld) [Volume fraction] 40.0 % 37-47 [facility] Hemoglobin measurementOrdere d By: Cierra Dinero on 01-15-2025 Hemoglobin (Bld) [Mass/Vol] 13.8 g/dL 12.0-15.0 [facility] Immature granulocytes/100 WB C Auto (Bld)Ordered By: Cierra Dinero on 01-15-2025 Immature granulocytes/100 WBC (Bld) 0.200 % 0.0-0.9 [facility] Comment on above: IG% - Immature Granu locytes (promyelocytes, myelocytes and metamyelocytes) > 1% indicates that a LEFT SHIFT is Present. MCV (mean corpuscular volume ) determinationOrdered By: Cierra Dinero on 01-15-2025 MCV (RBC) [Entitic vol] 91.1 fL 81-99 [facility] Mean corpuscular hemoglobin (MCH) determinationOrdered By: Cierra Dinero on 01-15-2025 MCH (RBC) [Entitic mass] 31.4 pg 27.0-32.0 [facility] Mean corpuscular hemoglobin concentration (MCHC) determinationOrdered By: Cierra Dinero on 01-15-2025 MCHC (RBC) [Mass/Vol] 34.5 g/dL 32-36 [facility] Mean platelet volume determi nationOrdered By: Cierra Dinero on 01-15-2025 Platelet mean volume (Bld) [Entitic vol] 8.9 fL 6.2-12.0 [facility] Monocyte percentageOrdered B y: Cierra Dinero on 01-15-2025 Monocytes/100 WBC (Bld) 8.8 % 0-10 [facility] Neutrophil percentageOrdered By: Cierra Dinero on 01-15-2025 Neutrophils/100 WBC (Bld) 54.7 % 47-70 [facility] Nucleated red blood cell per centageOrdered By: Cierra Dinero on 01-15-2025 Nucleated RBC/100 WBC (Bld) [Ratio] 0 % 0-5 [facility] Platelet countOrdered By: Mona Dinero on 01-15-2025 Platelets (Bld) [#/Vol] 365 10*3/uL 150-450 [facility] Potassium measurement (mass/ volume)Ordered By: Cierra Dinero on 01-15-2025 Potassium (Unsp spec) [Mass/Vol] 4.2 mmol/L 3.3-5.1 [facility] RBC Auto (Bld) [#/Vol]Ordere d By: Cierra Dinero on 01-15-2025 RBC (Bld) [#/Vol] 4.39 10*6/uL 4.2-5.4 [facility] Serum creatinine measurement (mass/volume)Ordered By: Cierra Dinero on 01-15-2025 Creatinine [Mass/Vol] 0.76 mg/dL 0.70-1.20 [facility] Serum glucose measurement (m ass/volume)Ordered By: Cierra Dinero on 01-15-2025 Glucose [Mass/Vol] 94 mg/dL 70-99 [facility] Serum or plasma calcium hong urement (mass/volume)Ordered By: Cierra Dinero on 01-15-2025 Calcium [Mass/Vol] 9.2 mg/dL 7.6-11.0 [facility] Serum or plasma urea nitroge n measurement (mass/volume)Ordered By: Cierra Dinero on 01-15-2025 Urea nitrogen [Mass/Vol] 11 mg/dL 4-19 [facility] Sodium levelOrdered By: Regino Dinero on 01-15-2025 Sodium [Moles/Vol] 139 mmol/L 133-145 [facility] White blood cell (WBC) count Ordered By: Cierra Dinero on 01-15-2025 WBC (Bld) [#/Vol] 9.4 10*3/uL 4.4-11.0 [facility] CNOVon 12-31-2024 CNOV Office Visit (FAMPWS ) -- SIA OLIVERA ([id number]) 1985 F Date Time Provider Department 12/31/24 1:00 PM HUI VALDES During your visit today, we recorded the following information about you: Pulse Respiration Blood pressure Weight 100/minute 16/minute 122/78 74.4 kg Hui Valdes APRN.PRESS WASHER 12/31/2024 1:48 PM Signed 12/29/2024 Patient presents [...] in partial remission, most recent episode mixed ([facility]) 10/04/2019 Depression, major, recurrent, moderate ([facility]) 07/07/2018 Diet controlled gestational diabetes mellitus (GDM) in second trimester ([facility]) 07/05/2022 Drug use disorder remission since 06/2019; methamphetamines, marijuana Gastritis due to Helicobacter species 11/26/2021 Genital warts 1--09 Never seen again GERD without esophagitis 02/08/2022 Grand multiparity 09/11/2022 - history 4 prior SVDs, this will be delivery #5 - admission CBC 11.9 Group B Streptococcus carrier, antepartum ([facility]) 07/26/2021 Sensitive to Vanc Hemorrhoids Herpes simplex [...] tract infection in , antepartum, second trimester ([facility]) 03/28/2022 Urogenital trichomoniasis 2017 Not totally sure [...] - 34 (more content not included)... Normal [facility] SIA OLIVERA ([id number]) 1985 F Date Time Provider Department 12/28/24 TEMITOPE BEAR During your visit today, we recorded the following information about you: Frances Parnell RN 12/28/2024 4:43 PM Signed Received the following message from [facility]: Patient is requesting to have their [...] for IUD removal [Z30.432] Order(s):REMOVE INTRAUTERINE DEVICE [[id number]] Order #: [id number] Prescriptions as of 12/29/2024 - venlafaxine ER [...] Status:Closed by SONYA MONTELONGO on 12/29/24 Normal [facility] BACTERIAL VAGINOSIS NAATon 0 2- Lactobacillus crispatus+gasseri+tanner senii + Gardnerella vaginalis + Atopobium vaginae rRNA CASSIDY+probe Ql (Vag fld) Not detected Normal Not detected [facility] Comment on above: Order Comment: Speci men Type: BLOOD SPECIMEN Ordering Facility: [facility] Address: [address] [place] [address] Performed By: #### 3 1201-7, 85372-3, 5195-3 #### [facility] CLIA [id number] [address] [place] [address] [place] C. trachomatis+N. gonorrhoea e DNA CASSIDY+probe Ql (Unsp spec)on 10-18-2024 C. trachomatis rRNA CASSIDY+probe Ql (Unsp spec) Not detected Normal Not detected [facility] Comment on above: Order Comment: Speci men Type: BLOOD SPECIMEN Ordering Facility: [facility] Address: [address] [place] [address] Performed By: #### 3 1201-7, 89194-9, 5195-3 #### [facility] CLIA [id number] [address] [place] [address] [place] N. gonorrhoeae rRNA CASSIDY+probe Ql (Unsp spec) Not detected Normal Not detected [facility] Comment on above: Order Comment: Speci men Type: BLOOD SPECIMEN Ordering Facility: [facility] Address: [address] [place] [address] Performed By: #### 3 1201-7, 54816-9, 5195-3 #### [facility] CLIA [id number] [address] [place] [address] [place] ALEX/TRICHOMONAS NAATon 0 10-18-2024 C. glabrata RNA CASSIDY+probe Ql (Vag fld) Not detected Normal Not detected [facility] Comment on above: Order Comment: Speci men Type: BLOOD SPECIMEN Ordering Facility: [facility] Address: [address] [place] [address] Performed By: #### 3 1201-7, 99033-3, 5195-3 #### [facility] CLIA [id number] [address] [place] [address] [place] Alex sp DNA CASSIDY+probe Ql (Vag fld) Not detected Normal Not detected [facility] Comment on above: Order Comment: Speci men Type: BLOOD SPECIMEN Ordering Facility: [facility] Address: [address] [place] [address] Result Comment: The Alex species group target includes C. albicans, C. tropicalis, C. parapsilosis, and C. dubliniensis. Performed By: #### 3 1201-7, 47286-2, 5195-3 #### [facility] CLIA [id number] [address] [place] [address] [place] T. vaginalis DNA CASSIDY+probe Ql (Unsp spec) Not detected Normal Not detected [facility] Comment on above: Order Comment: Speci men Type: BLOOD SPECIMEN Ordering Facility: [facility] Address: [address] [place] [address] Performed By: #### 3 1201-7, 48543-9, 5195-3 #### [facility] CLIA [id number] [address] [place] [address] [place] CNOVon 10-18-2024 CNOV Office Visit (OBGYWM ) -- SIA OLIVERA ([id number]) 1985 F Date Time Provider Department 10/18/24 [...] L5 SAB0 IAB1 Ectopic0 Multiple0 Live Births5 [place] History LMP: 10/11/2024 (Approximate), IUD Age at Menarche: 9 Age at First : 21 Age at Menopause: Soubrette History Comments: Sexual Activity: Yes; Male Contraception: [...] SECTION HX EGD DIAGNOSTIC 01/17/2023 INDUCED BY [employer] 2008 FAMILY HISTORY Problem Relation Age of [...] discussed with the Patient or Patient's Authorized Cloth Reeler. As applicable, any other physician, advance practice provider, medical student, or other health professional student that will be observing or involved in the sensitive examination for educational or training purposes was discussed with the Patient or Authorized Cloth Reeler. The Patient or Authorized Cloth Reeler has agreed to proceed with the sensitive examination. (Sensitive examination includes inspection and/or palpation of the breasts, pelvis, prostate and anorectal regions). EXAM: BP 126/74 Ht 5' 4 (1.63m) Wt 167 lb (75.8kg) LMP 10/11/2024 BMI 28.65 kg/(m2). GENERAL: pleasant, fe (more content not included)... Normal [facility] HBV surface Ag Ser Qlon 02-0 HBV surface Ag Ql (S) Negative Normal Negative [facility] Comment on above: Order Comment: Speci men Type: BLOOD SPECIMEN Ordering Facility: [facility] Address: [address] [place] [address] Performed By: #### 3 1201-7, 28123-3, 5195-3 #### [facility] CLIA [id number] [address] [place] [address] [place] HCV Ab Ser Qlon 10-18-2024 HCV Ab Ql (S) Negative Normal Negative [facility] Comment on above: Order Comment: Speci men Type: BLOOD SPECIMEN Ordering Facility: [facility] Address: [address] [place] [address] Result Comment: The result suggests no evidence of active infection with Hepatitis C virus. Should recent infection be suspected, repeat testing may be considered 4-6 weeks after this draw. Performed By: #### 3 1201-7, 19241-0, 5195-3 #### [facility] CLIA [id number] [address] [place] [address] [place] HIGH RISK HUMAN PAPILLOMA DONATO (HPV), PCR FOR DETECTION AND GENOTYPINGon 10-18-2024 HPV 16 Ag Ql (Unsp spec) Not detected Normal Not detected [facility] Comment on above: Order Comment: Speci men Type: FLUID SPECIMEN Ordering Facility: [facility] Address: [address] [place] [address] Performed By: #### H PVHRT #### [facility] CLIA [id number] [address] [place] [address] [place] HPV 18 Ag Ql (Unsp spec) Not detected Normal Not detected [facility] Comment on above: Order Comment: Speci men Type: FLUID SPECIMEN Ordering Facility: [facility] Address: [address] [place] [address] Performed By: #### H PVHRT #### [facility] CLIA [id number] [address] [place] [address] [place] HPV 31+33+35+39+45+51+52+ 56+58+59+66+68 DNA CASSIDY+probe Ql (Cvx) Not detected Normal Not detected [facility] Comment on above: Order Comment: Speci men Type: FLUID SPECIMEN Ordering Facility: [facility] Address: [address] [place] [address] Result Comment: High Risk HPV Other Type includes HPV types 31, 33, 35, 39, 45, 51, 52, 56, 58, 59, 66 and 68. Performed By: #### H PVHRT #### [facility] CLIA [id number] [address] [place] [address] [place] HIV 1+2 Ab IA Qlon 5 HIV 1 and 2 Ab IA.rapid Nom (S/P/Bld) Normal [facility] Comment on above: Order Comment: Speci men Type: BLOOD SPECIMEN Ordering Facility: [facility] Address: [address] [place] [address] Result Comment: Test not indicated. Performed By: #### 3 1201-7, 37168-1, 5195-3 #### [facility] CLIA [id number] [address] [place] [address] [place] HIV 1+2 Ab+HIV1 p24 Ag IA Ql Non-Reactive Normal Nonreactive [facility] Comment on above: Order Comment: Speci men Type: BLOOD SPECIMEN Ordering Facility: [facility] Address: [address] [place] [address] Performed By: #### 3 1201-7, 98962-2, 5195-3 #### [facility] CLIA [id number] [address] [place] [address] [place] HIV immunoassay testing algorithm interpretation (S/P/Bld) [Interp] Normal [facility] Comment on above: Order Comment: Speci men Type: BLOOD SPECIMEN Ordering Facility: [facility] Address: [address] [place] [address] Result Comment: No e vidence of HIV-1 or HIV-2 infection. Should recent infection be suspected, repeat testing may be considered 2-3 weeks after this draw. [place] Rev. Code 3701.243(E): This information has been [...] or diagnoses. Performed By: #### 3 1201-7, 14147-2, 5195-3 #### [facility] CLIA [id number] [address] [place] [address] [place] PAP TESTon 10-18-2024 ADEQUACY Satisfactory for interpretation. Normal [facility] Comment on above: Order Comment: Speci men Type: FLUID SPECIMEN Ordering Facility: [facility] Address: [address] [place] [address] Performed By: #### L [id number] #### [facility] CLIA [id number] [address] [place] [address] [place] CASE REPORT Normal [facility] Comment on above: Order Comment: Speci men Type: FLUID SPECIMEN Ordering Facility: [facility] Address: [address] [place] [address] Result Comment: Gyne cologic Cytology Report Case: [id number] Authorizing Provider: Temitope Bear APRN.CNM Collected: 10/18/2024 10:44 AM Ordering Location: OB/Gynecology Received: 10/18/2024 12:00 PM First Screen: Renteria, Serena, CT, ASCP Pathologist: Iwona Turner MD Specimen: Pap Test, ThinPrep, Cervix Performed By: #### L [id number] #### [facility] CLIA [id number] [address] [place] [address] [place] CLINICAL HISTORY, CYTOLOGY, MARINE CARGO SPECIALIST Routine Exam Normal [facility] Comment on above: Order Comment: Speci men Type: FLUID SPECIMEN Ordering Facility: [facility] Address: [address] [place] [address] Result Comment: Prev ious ASCUS Intra Uterine Device, No Menses Performed By: #### L [id number] #### [facility] CLIA [id number] [address] [place] [address] [place] CYTOLOGY PAP OTHER INTERPRETATION Normal [facility] Comment on above: Order Comment: Speci men Type: FLUID SPECIMEN Ordering Facility: [facility] Address: [address] [place] [address] Result Comment: Bact eria present morphologically consistent with Actinomyces species. Acute inflammation. Performed By: #### L [id number] #### [facility] CLIA [id number] [address] [place] [address] [place] FINAL PERFORMING LAB Normal [facility] Comment on above: Order Comment: Speci men Type: FLUID SPECIMEN Ordering Facility: [facility] Address: [address] [place] [address] Result Comment: Tech nical component, food preparation worker screening performed at [facility], [address] [facility], [place] [address] CLIA# [id number] Diagnostic interpretation performed at [facility], [address] [place] [address] CLIA# [id number] Cafeteria Manager: Madelyn Day M.D. Performed By: #### L [id number] #### [facility] CLIA [id number] [address] [place] [address] [place] INTERPRETATION, CYTOLOGY, MARINE CARGO SPECIALIST Normal [facility] Comment on above: Order Comment: Speci men Type: FLUID SPECIMEN Ordering Facility: [facility] Address: [address] [place] [address] Result Comment: Nega tive for intraepithelial lesion or malignancy. at 0841 EST Performed By: #### L [id number] #### [facility] CLIA [id number] [address] [place] [address] [place] PAP DISCLAIMER COMMENT The Pap Smear is a screening test for cervical cancer. False negative results occur with all screening tests, emphasizing the need for rescreening at recommended intervals, and clinical correlation. Normal [facility] Comment on above: Order Comment: Speci men Type: FLUID SPECIMEN Ordering Facility: [facility] Address: [address] [place] [address] Performed By: #### L [id number] #### [facility] [place] [id number] [address] [place], [place] [address] [place] PAP CAPSULE FILLER COMMENT This specimen has be en analyzed by the ThinPrep Imaging System, an automated imaging and review system, which assists the laboratory in evaluating cells on ThinPrep Pap tests. Following automated imaging, selected cobb from every slide are reviewed by a food preparation worker. Normal [facility] Comment on above: Order Comment: Speci men Type: FLUID SPECIMEN Ordering Facility: [facility] Address: [address] [place] [address] Performed By: #### L [id number] #### [facility] [place] [id number] [address] [place] [address] [place] Reagin and Treponema pallidu m IgG and IgM [Interp]on 10-18-2024 T. pallidum IgG+IgM IA Ql (S) Non-Reactive Normal Nonreactive [facility] Comment on above: Order Comment: Janis covington Type: BLOOD SPECIMEN Ordering Facility: [facility] Address: [address] [place] [address] Performed By: #### 3 1201-7, 39310-5, 5195-3 #### [facility] CLIA [id number] [address] [place] [address] [place] Reagin+T pallidum IgG+IgM Se rPl-Impon 10-18-2024 Reagin and Treponema pallidum IgG and IgM [Interp] Cannot exclude recent Treponemal infection if specimen collected within 7-10 days after appearance of suspect lesions or 2-3 weeks after an exposure. Clinical correlation is required. Normal [facility] Comment on above: Order Comment: Janis covington Type: BLOOD SPECIMEN Ordering Facility: [facility] Address: [address] [place] [address] Performed By: #### 3 1201-7, 72425-3, 5195-3 #### [facility] CLIA [id number] [address] [place] [address] [place] CNPNon 08-13-2024 [facility] -- SIA OLIVERA ([id number]) 1985 F Date Time Provider Department 08/13/24 NO PCP NETNAV During your visit today, we recorded the following information about you: Rebecca Rhodes 08/13/2024 3:44 PM Signed [employer] Action/ attempt, call placed to pt for PT consult for OAB (overactive bladder) [N32.81]. Order is dated 07/05/24. Pt declined to [facility] at this time. Pt plans to go [...] Status:Closed by REBECCA RHODES on 08/13/24 Normal [facility] CBC W Auto Differential pane l (Bld)on 07-08-2024 Basophils (Bld) [#/Vol] 0.07 10*3/uL Normal <0.11 [facility] Comment on above: Order Comment: Speci men Type: BLOOD SPECIMEN Ordering Facility: [facility] Address: [address] [place] [address] Performed By: #### 5 7021-8 #### [facility] CLIA [id number] [address] [place] [address] [place] Basophils/100 WBC (Bld) 0.9 % Normal [facility] Comment on above: Order Comment: Speci men Type: BLOOD SPECIMEN Ordering Facility: [facility] Address: [address] [place] [address] Performed By: #### 5 7021-8 #### [facility] CLIA [id number] [address] [place] [address] [place] Differential cell count method Nom (Bld) Auto Normal [facility] Comment on above: Order Comment: Speci men Type: BLOOD SPECIMEN Ordering Facility: [facility] Address: [address] [place] [address] Performed By: #### 5 7021-8 #### [facility] CLIA [id number] [address] [place] [address] [place] Eosinophils (Bld) [#/Vol] 0.14 10*3/uL Normal <0.46 [facility] Comment on above: Order Comment: Speci men Type: BLOOD SPECIMEN Ordering Facility: [facility] Address: [address] [place] [address] Performed By: #### 5 7021-8 #### [facility] CLIA [id number] [address] [place] [address] [place] Eosinophils/100 WBC (Bld) 1.8 % Normal [facility] Comment on above: Order Comment: Speci men Type: BLOOD SPECIMEN Ordering Facility: [facility] Address: [address] [place] [address] Performed By: #### 5 7021-8 #### [facility] CLIA [id number] [address] [place] [address] [place] Erythrocyte distribution width (RBC) [Ratio] 12.2 % Normal 11.5-15.0 [facility] Comment on above: Order Comment: Speci men Type: BLOOD SPECIMEN Ordering Facility: [facility] Address: [address] [place] [address] Performed By: #### 5 7021-8 #### [facility] CLIA [id number] [address] [place] [address] [place] Hematocrit (Bld) [Volume fraction] 41.2 % Normal 36.0-46.0 [facility] Comment on above: Order Comment: Speci men Type: BLOOD SPECIMEN Ordering Facility: [facility] Address: [address] [place] [address] Performed By: #### 5 7021-8 #### [facility] CLIA [id number] [address] [place] [address] [place] Hemoglobin (Bld) [Mass/Vol] 13.6 g/dL Normal 11.5-15.5 [facility] Comment on above: Order Comment: Speci men Type: BLOOD SPECIMEN Ordering Facility: [facility] Address: [address] [place] [address] Performed By: #### 5 7021-8 #### [facility] CLIA [id number] [address] [place] [address] [place] Immature granulocytes (Bld) [#/Vol] 0.03 10*3/uL Normal <0.10 [facility] Comment on above: Order Comment: Speci men Type: BLOOD SPECIMEN Ordering Facility: [facility] Address: [address] [place] [address] Performed By: #### 5 7021-8 #### [facility] CLIA [id number] [address] [place] [address] [place] Immature granulocytes/100 WBC (Bld) 0.4 % Normal [facility] Comment on above: Order Comment: Speci men Type: BLOOD SPECIMEN Ordering Facility: [facility] Address: [address] [place] [address] Performed By: #### 5 7021-8 #### [facility] CLIA [id number] [address] [place] [address] [place] Lymphocytes (Bld) [#/Vol] 2.90 10*3/uL Normal 1.00-4.00 [facility] Comment on above: Order Comment: Speci men Type: BLOOD SPECIMEN Ordering Facility: [facility] Address: [address] [place] [address] Performed By: #### 5 7021-8 #### [facility] CLIA [id number] [address] [place] [address] [place] Lymphocytes/100 WBC (Bld) 38.2 % Normal [facility] Comment on above: Order Comment: Speci men Type: BLOOD SPECIMEN Ordering Facility: [facility] Address: [address] [place] [address] Performed By: #### 5 7021-8 #### [facility] CLIA [id number] [address] [place] [address] [place] MCH (RBC) [Entitic mass] 31.0 pg Normal 26.0-34.0 [facility] Comment on above: Order Comment: Speci men Type: BLOOD SPECIMEN Ordering Facility: [facility] Address: [address] [place] [address] Performed By: #### 5 7021-8 #### [facility] CLIA [id number] [address] [place] [address] [place] MCHC (RBC) [Mass/Vol] 33.0 g/dL Normal 30.5-36.0 [facility] Comment on above: Order Comment: Speci men Type: BLOOD SPECIMEN Ordering Facility: [facility] Address: [address] [place] [address] Performed By: #### 5 7021-8 #### [facility] CLIA [id number] [address] [place] [address] [place] MCV (RBC) [Entitic vol] 93.8 fL Normal 80.0-100.0 [facility] Comment on above: Order Comment: Speci men Type: BLOOD SPECIMEN Ordering Facility: [facility] Address: [address] [place] [address] Performed By: #### 5 7021-8 #### [facility] CLIA [id number] [address] [place] [address] [place] Monocytes (Bld) [#/Vol] 0.71 10*3/uL Normal <0.87 [facility] Comment on above: Order Comment: Speci men Type: BLOOD SPECIMEN Ordering Facility: [facility] Address: [address] [place] [address] Performed By: #### 5 7021-8 #### [facility] CLIA [id number] [address] [place] [address] [place] Monocytes/100 WBC (Bld) 9.4 % Normal [facility] Comment on above: Order Comment: Speci men Type: BLOOD SPECIMEN Ordering Facility: [facility] Address: [address] [place] [address] Performed By: #### 5 7021-8 #### [facility] CLIA [id number] [address] [place] [address] [place] Neutrophils (Bld) [#/Vol] 3.74 10*3/uL Normal 1.45-7.50 [facility] Comment on above: Order Comment: Speci men Type: BLOOD SPECIMEN Ordering Facility: [facility] Address: [address] [place] [address] Performed By: #### 5 7021-8 #### [facility] CLIA [id number] [address] [place] [address] [place] Neutrophils/100 WBC (Bld) 49.3 % Normal [facility] Comment on above: Order Comment: Speci men Type: BLOOD SPECIMEN Ordering Facility: [facility] Address: [address] [place] [address] Performed By: #### 5 7021-8 #### [facility] CLIA [id number] [address] [place] [address] [place] Nucleated RBC (Bld) [#/Vol] 10*3/uL Normal <0.01 [facility] Comment on above: Order Comment: Speci men Type: BLOOD SPECIMEN Ordering Facility: [facility] Address: [address] [place] [address] Performed By: #### 5 7021-8 #### [facility] CLIA [id number] [address] [place] [address] [place] Nucleated RBC/100 WBC (Bld) [Ratio] 0.0 /100 WBC Normal [facility] Comment on above: Order Comment: Speci men Type: BLOOD SPECIMEN Ordering Facility: [facility] Address: [address] [place] [address] Performed By: #### 5 7021-8 #### [facility] CLIA [id number] [address] [place] [address] [place] Platelet mean volume (Bld) [Entitic vol] 9.5 fL Normal 9.0-12.7 [facility] Comment on above: Order Comment: Speci men Type: BLOOD SPECIMEN Ordering Facility: [facility] Address: [address] [place] [address] Performed By: #### 5 7021-8 #### [facility] CLIA [id number] [address] [place] [address] [place] Platelets (Bld) [#/Vol] 354 10*3/uL Normal 150-400 [facility] Comment on above: Order Comment: Speci men Type: BLOOD SPECIMEN Ordering Facility: [facility] Address: [address] [place] [address] Performed By: #### 5 7021-8 #### [facility] CLIA [id number] [address] [place] [address] [place] RBC (Bld) [#/Vol] 4.39 10*6/uL Normal 3.90-5.[address] [facility] Comment on above: Order Comment: Speci men Type: BLOOD SPECIMEN Ordering Facility: [facility] Address: [address] [place] [address] Performed By: #### 5 7021-8 #### [facility] CLIA [id number] [address] [place] [address] [place] WBC (Bld) [#/Vol] 7.59 10*3/uL Normal 3.70-11.[address] [facility] Comment on above: Order Comment: Speci men Type: BLOOD SPECIMEN Ordering Facility: [facility] Address: [address] [place] [address] Performed By: #### 5 7021-8 #### [facility] CLIA [id number] [address] [place] [address] [place] Comprehensive metabolic 2000 panelon 07-08-2024 Albumin [Mass/Vol] 4.2 g/dL Normal 3.9-4.9 [facility] Comment on above: Order Comment: Speci men Type: BLOOD SPECIMEN Ordering Facility: [facility] Address: [address] [place] [address] Performed By: #### 3 1201-7, 61161-3, 5195-3 #### [facility] CLIA [id number] [address] [place] [address] [place] ALP [Catalytic activity/Vol] 41 U/L Normal 34-123 [facility] Comment on above: Order Comment: Speci men Type: BLOOD SPECIMEN Ordering Facility: [facility] Address: [address] [place] [address] Performed By: #### 3 1201-7, 28132-1, 5195-3 #### [facility] CLIA [id number] [address] [place] [address] [place] ALT [Catalytic activity/Vol] 10 U/L Normal 7-38 [facility] Comment on above: Order Comment: Speci men Type: BLOOD SPECIMEN Ordering Facility: [facility] Address: [address] [place] [address] Performed By: #### 3 1201-7, 76050-9, 5195-3 #### [facility] CLIA [id number] [address] [place] [address] [place] Anion gap [Moles/Vol] 10 mmol/L Normal 8-15 [facility] Comment on above: Order Comment: Speci men Type: BLOOD SPECIMEN Ordering Facility: [facility] Address: [address] [place] [address] Performed By: #### 3 1201-7, 19452-5, 5-3 #### [facility] CLIA [id number] [address] [place] [address] [place] AST [Catalytic activity/Vol] 13 U/L Normal 13-35 [facility] Comment on above: Order Comment: Speci men Type: BLOOD SPECIMEN Ordering Facility: [facility] Address: [address] [place] [address] Performed By: #### 3 1201-7, 80353-2, 5195-3 #### [facility] CLIA [id number] [address] [place] [address] [place] Bilirubin [Mass/Vol] 0.7 mg/dL Normal 0.2-1.3 [facility] Comment on above: Order Comment: Speci men Type: BLOOD SPECIMEN Ordering Facility: [facility] Address: [address] [place], [place] [address] Performed By: #### 3 1201-7, 07188-8, 5195-3 #### [facility] CLIA [id number] [address] [place] [address] [place] Calcium [Mass/Vol] 9.0 mg/dL Normal 8.5-10.2 [facility] Comment on above: Order Comment: Speci men Type: BLOOD SPECIMEN Ordering Facility: [facility] Address: [address] [place] [address] Performed By: #### 3 1201-7, 06955-2, 5195-3 #### [facility] CLIA [id number] [address] [place] [address] [place] Chloride [Moles/Vol] 106 mmol/L Normal 98-107 [facility] Comment on above: Order Comment: Speci men Type: BLOOD SPECIMEN Ordering Facility: [facility] Address: [address] [place] [address] Performed By: #### 3 1201-7, 07562-2, 5195-3 #### [facility] CLIA [id number] [address] [place] [address] [place] CO2 [Moles/Vol] 24 mmol/L Normal 22-30 [facility] Comment on above: Order Comment: Speci men Type: BLOOD SPECIMEN Ordering Facility: [facility] Address: [address] [place] [address] Performed By: #### 3 1201-7, 79935-9, 5195-3 #### [facility] CLIA [id number] [address] [place] [address] [place] Creatinine [Mass/Vol] 0.84 mg/dL Normal 0.58-0.96 [facility] Comment on above: Order Comment: Speci men Type: BLOOD SPECIMEN Ordering Facility: [facility] Address: [address] [place] [address] Performed By: #### 3 1201-7, 98502-8, 5195-3 #### [facility] CLIA [id number] [address] [place] [address] [place] Creatinine and Glomerular filtration rate.predicted panel (S/P/Bld) 91 mL/min/1.73m??? Normal >=60 [facility] Comment on above: Order Comment: Janis covington Type: BLOOD SPECIMEN Ordering Facility: [facility] Address: [address] [place] [address] Result Comment: Grace mated Glomerular Filtration Rate [...] actual GFR. Performed By: #### 3 1201-7, 43671-4, 5195-3 #### [facility] CLIA [id number] [address] [place] [address] [place] Glucose [Mass/Vol] 96 mg/dL Normal 74-99 [facility] Comment on above: Order Comment: Janis covington Type: BLOOD SPECIMEN Ordering Facility: [facility] Address: [address] [place] [address] Result Comment: The [place] Diabetes Association (ADA) provides guidance for cutoff [...] Standards of Medical Care in Diabetes 2016, [place] [employer]. Diabetes Care. 2016.39(Suppl 1). Performed By: #### 3 1201-7, 92882-5, 5-3 #### [facility] CLIA [id number] [address] [place] [address] [place] Potassium [Moles/Vol] 3.7 mmol/L Normal 3.7-5.1 [facility] Comment on above: Order Comment: Speci men Type: BLOOD SPECIMEN Ordering Facility: [facility] Address: [address] [place] [address] Performed By: #### 3 1201-7, 45901-6, 5194-3 #### [facility] CLIA [id number] [address] [place] [address] [place] Protein [Mass/Vol] 6.5 g/dL Normal 6.3-8.0 [facility] Comment on above: Order Comment: Speci men Type: BLOOD SPECIMEN Ordering Facility: [facility] Address: [address] [place] [address] Performed By: #### 3 1201-7, 77037-5, 3 #### [facility] CLIA [id number] [address] [place] [address] [place] Sodium [Moles/Vol] 140 mmol/L Normal 136-144 [facility] Comment on above: Order Comment: Speci men Type: BLOOD SPECIMEN Ordering Facility: [facility] Address: [address] [place] [address] Performed By: #### 3 1201-7, 11994-8, 3 #### [facility] CLIA [id number] [address] [place] [address] [place] Urea nitrogen [Mass/Vol] 11 mg/dL Normal 7-21 [facility] Comment on above: Order Comment: Speci men Type: BLOOD SPECIMEN Ordering Facility: [facility] Address: [address] [place] [address] Performed By: #### 3 1201-7, 02246-4, 5194-3 #### [facility] CLIA [id number] [facility] [place] [address] [place] Lipid 1996 panelon 4 Cholesterol [Mass/Vol] 191 mg/dL Normal <200 [facility] Comment on above: Order Comment: Speci men Type: BLOOD SPECIMEN Ordering Facility: [facility] Address: [address] [place] [address] Result Comment: <200 mg/dL, Desirable 200-239 mg/dL, Borderline high >239 mg/dL, High Performed By: #### 3 1201-7, 22213-7, 5194-3 #### [facility] CLIA [id number] [address] [place] [address] [place] Cholesterol in HDL [Mass/Vol] 35 mg/dL Low >39 [facility] Comment on above: Order Comment: Speci men Type: BLOOD SPECIMEN Ordering Facility: [facility] Address: [address] [place] [address] Result Comment: 40-5 9 mg/dL, Acceptable >59 mg/dL, High: Negative risk factor for coronary heart disease <40 mg/dL, Low: Positive risk factor for coronary heart disease Performed By: #### 3 1201-7, 31617-3, 5194-3 #### [facility] CLIA [id number] [address] [place] [address] [place] Cholesterol in LDL [Mass/Vol] 136 mg/dL High <100 [facility] Comment on above: Order Comment: Speci men Type: BLOOD SPECIMEN Ordering Facility: [facility] Address: [address] [place] [address] Result Comment: <100 mg/dL, Optimal 100-129 mg/dL, Near optimal/above optimal 130-159 mg/dL, Borderline high 160-189 mg/dL, High >189 mg/dL, Very high Secondary prevention optimal LDL Cholesterol levels are recommended to be < 70 mg/dL Performed By: #### 3 1201-7, 65631-6, 5194-3 #### [facility] CLIA [id number] [address] [place] [address] [place] Cholesterol in LDL/Cholesterol in HDL [Mass ratio] 3.89 {ratio} High <2.54 [facility] Comment on above: Order Comment: Janis covington Type: BLOOD SPECIMEN Ordering Facility: [facility] Address: [address] [place] [address] Result Comment: Kim young: 1. National Cholesterol Education Program ATP III Guideline At-A-Glance Quick Desk Reference: National Heart, Lung, and Blood [place]. National Institutes of Health. 2001: NIH Publication No. 01-3305. 2. An International Atherosclerosis Society position paper: global recommendations for the management of dyslipidemia: executive summary, Atherosclerosis. 2014: 232(2):410-413. Performed By: #### 3 1201-7, 47088-8, 5194-3 #### [facility] CLIA [id number] [address] [place] [address] [place] Cholesterol in VLDL [Mass/Vol] 20 mg/dL Normal <30 [facility] Comment on above: Order Comment: Janis covington Type: BLOOD SPECIMEN Ordering Facility: [facility] Address: [address] [place] [address] Performed By: #### 3 1201-7, 01033-5, 5194-3 #### [facility] CLIA [id number] [address] [place] [address] [place] Cholesterol non HDL [Mass/Vol] 156 mg/dL High <130 [facility] Comment on above: Order Comment: Janis covington Type: BLOOD SPECIMEN Ordering Facility: [facility] Address: [address] [place] [address] Result Comment: <130 mg/dL, Optimal 130-159 mg/dL, Near optimal/above optimal 160-189 mg/dL, Borderline high 190-219 mg/dL, High >219 mg/dL, Very high Secondary prevention optimal non HDL Cholesterol levels are recommended to be <100 mg/dL Performed By: #### 3 1201-7, 94053-4, 5194-3 #### [facility] CLIA [id number] [address] [place] [address] [place] Cholesterol.total/Cho lesterol in HDL [Mass ratio] 5.46 {ratio} High <5.10 [facility] Comment on above: Order Comment: Speci men Type: BLOOD SPECIMEN Ordering Facility: [facility] Address: [address] [place] [address] Performed By: #### 3 1201-7, 16657-5, 5195-3 #### [facility] CLIA [id number] [address] [place] [address] [place] FASTING TIME 12 hrs Normal [facility] Comment on above: Order Comment: Speci men Type: BLOOD SPECIMEN Ordering Facility: [facility] Address: [address] [place] [address] Performed By: #### 3 1201-7, 76165-2, 5195-3 #### [facility] CLIA [id number] [address] [place] [address] [place] Triglyceride [Mass/Vol] 102 mg/dL Normal <150 [facility] Comment on above: Order Comment: Speci men Type: BLOOD SPECIMEN Ordering Facility: [facility] Address: [address] [place] [address] Result Comment: <150 mg/dL, Normal 150-199 mg/dL, Borderline high 200-499 mg/dL, High >499 mg/dL, Very high Performed By: #### 3 1201-7, 40796-5, 5195-3 #### [facility] CLIA [id number] [address] [place] [address] [place] CNOVon 07-05-2024 CNOV Office Visit (FAMPWS ) -- SIA OLIVERA ([id number]) 1985 F Date Time Provider Department 07/05/24 1:00 PM HUI VALDES During your visit today, we recorded the following information about you: Pulse Respiration Blood pressure Weight 94/minute 16/minute 136/84 78.8 kg Height 1.604 m Hui Valdes APRN.PRESS WASHER 07/05/2024 3:14 PM Signed 07/05/2024 Patient presents [...] to pelvic floor therapy but moved from [place] which is were she was going to [...] nausea, vomiting, or diarrhea : See HPI MARINE 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 Normal [facility] CNOVon 11-07-2023 CNOV Office Visit (UROLAE ) -- SIA OLIVERA ([id number]) 1985 F Date Time Provider Department 11/07/23 12:45 PM JOANNA WILKES UROVINAY During your visit today, we recorded the following information about you: Pulse Blood pressure 73/minute 110/71 Joanna Wilkes MD 12/14/2023 10:49 AM Signed [facility] NEW PATIENT CONSULT/HISTORY [...] medications. 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 Normal [facility] CBC W Auto Differential pane l (Bld)on 07-01-2023 Basophils (Bld) [#/Vol] 0.06 10*3/uL <0.11 k/uL [facility] Basophils/100 WBC (Bld) 0.8 % [facility] Differential cell count method Nom (Bld) Auto [facility] Eosinophils (Bld) [#/Vol] 0.14 10*3/uL <0.46 k/uL [facility] Eosinophils/100 WBC (Bld) 1.8 % [facility] Erythrocyte distribution width (RBC) [Ratio] 13.2 % 11.5 - 15.0 % [facility] Hematocrit (Bld) [Volume fraction] 41.1 % 36.0 - 46.0 % [facility] Hemoglobin (Bld) [Mass/Vol] 13.4 g/dL 11.5 - 15.5 g/dL [facility] Immature granulocytes (Bld) [#/Vol] <0.10 k/uL [facility] Immature granulocytes/100 WBC (Bld) 0.1 % [facility] Lymphocytes (Bld) [#/Vol] 2.98 10*3/uL 1.00 - 4.00 k/uL [facility] Lymphocytes/100 WBC (Bld) 39.3 % [facility] MCH (RBC) [Entitic mass] 30.6 pg 26.0 - 34.[address] [facility] MCHC (RBC) [Mass/Vol] 32.6 g/dL 30.5 - 36.0 g/dL [facility] MCV (RBC) [Entitic vol] 93.8 fL 80.0 - 100.[address] [facility] Monocytes (Bld) [#/Vol] 0.73 10*3/uL <0.87 k/uL [facility] Monocytes/100 WBC (Bld) 9.6 % [facility] Neutrophils (Bld) [#/Vol] 3.67 10*3/uL 1.45 - 7.50 k/uL [facility] Neutrophils/100 WBC (Bld) 48.4 % [facility] Nucleated RBC (Bld) [#/Vol] <0.01 k/uL [facility] Nucleated RBC/100 WBC (Bld) [Ratio] 0.0 /[address] [facility] Platelet mean volume (Bld) [Entitic vol] 10.0 fL 9.0 - 12.[address] [facility] Platelets (Bld) [#/Vol] 342 10*3/uL 150 - 400 k/uL [facility] RBC (Bld) [#/Vol] 4.38 10*6/uL 3.90 - 5.2 0 m/uL [facility] WBC (Bld) [#/Vol] 7.59 10*3/uL 3.70 - 11. 00 k/uL [facility] Comprehensive metabolic 2000 panelon 07-01-2023 Albumin [Mass/Vol] 4.0 g/dL 3.9 - 4.9 g/dL [facility] ALP [Catalytic activity/Vol] 49 U/L 34 - 123 U/L [facility] ALT [Catalytic activity/Vol] 11 U/L 7 - 38 U/L [facility] Anion gap [Moles/Vol] 11 mmol/L 9 - 18 mmol/L [facility] AST [Catalytic activity/Vol] 17 U/L 13 - 35 U/L [facility] Bilirubin [Mass/Vol] 0.2 mg/dL 0.2 - 1 .3 mg/dL [facility] Calcium [Mass/Vol] 9.3 mg/dL 8.5 - 10. 2 mg/dL [facility] Chloride [Moles/Vol] 108 mmol/L High 97 - 10 5 mmol/L [facility] CO2 [Moles/Vol] 21 mmol/L Low 22 - 30 mmol/L [facility] Creatinine [Mass/Vol] 0.67 mg/dL 0.58 - 0.96 mg/dL [facility] Estimated Glomerular Filtration Rate 116 mL/min/1.73m >=60 mL/min/1.73m [facility] Glucose [Mass/Vol] 88 mg/dL 74 - 99 mg/dL [facility] Potassium [Moles/Vol] 4.1 mmol/L 3.7 - 5.1 mmol/L [facility] Protein [Mass/Vol] 6.3 g/dL 6.3 - 8.0 g/dL [facility] Sodium [Moles/Vol] 140 mmol/L 136 - 144 mmol/L [facility] Urea nitrogen [Mass/Vol] 8 mg/dL 7 - 21 mg/dL [facility] HbA1c (Bld)on 07-01-2023 Average glucose Estimated from glycated hemoglobin (Bld) [Mass/Vol] 111 mg/dL [facility] HbA1c (Bld) [Mass fraction] 5.5 % 4.3 - 5.6 % [facility] Lipid 1996 panelon 3 Cholesterol [Mass/Vol] 175 mg/dL <200 mg/dL [facility] Cholesterol in HDL [Mass/Vol] 33 mg/dL Low >39 mg/dL [facility] Cholesterol in LDL [Mass/Vol] 121 mg/dL High <100 mg/dL [facility] Cholesterol in LDL/Cholesterol in HDL [Mass ratio] 3.67 {ratio} High <2.[address] [facility] Cholesterol in VLDL [Mass/Vol] 21 mg/dL <30 mg/dL [facility] Cholesterol non HDL [Mass/Vol] 142 mg/dL High <130 mg/dL [facility] Cholesterol.total/Cho lesterol in HDL [Mass ratio] 5.30 {ratio} High <5.[address] [facility] Fasting Time [address] [facility] Triglyceride [Mass/Vol] 106 mg/dL <150 mg/dL [facility] CNOVon 03-26-2023 CNOV Office Visit (AGGENS 4) -- SIA OLIVERA ([id number]) 1985 F Date Time Provider Department 03/26/23 [...] SECTION HX EGD DIAGNOSTIC 01/17/2023 INDUCED BY [employer] 2008 FAMILY HISTORY: FAMILY HISTORY Problem Relation Age of Onset Heart Mother Hypertension Father No Known Problems Brother No Known Problems Maternal Grandmother No Known Problems Maternal Grandfather Breast Cancer Paternal Grandmother No Known Problems Paternal Grandfather No Known Problems Brother SOCIAL HISTORY: Social History Tobacco Use Smoking status: Former Packs/day: (more content not included)... Normal [facility] ANES POSTPROC EVALon 023 ANES POSTPROC EVAL HNO ID: [id number] Author: Flora Fierro MD Service: Anesthesiology Author Type: Physician Type: Anesthesia Postprocedure Evaluation Filed: 01/17/2023 11:21 AM Note Text: POST ANESTHESIA EVALUATION NOTE : 1985 Procedure Summary Date: 01/17/23 Room / Location: [facility] Anesthesia Start: 827 Anesthesia Stop: 899 Procedure: [...] January 17, 2023 TIME: 11:16 AM CSN: [id number] [facility] ANES PRE-OPon 01-17-2023 ANES PRE-OP HNO ID: [id number] Author: Flora Fierro MD Service: Anesthesiology Author [...] cream by RECTAL route twice daily. - Qlxsyfxc-Mj-Kyw-Fe-FA tab Take 1 tablet by mouth once [...] January 17, 2023 TIME: 7:43 AM CSN: [id number] Normal [facility] HCG ( test) Ql (U)o n 01-17-2023 Specific gravity (U) [Rel density] 1.023 Normal 1.006-1.029 [facility] Comment on above: Order Comment: Speci men Type: URINE SPECIMENOrdering Facility: [facility] Address: [address] [place] [address] Result Comment: If s pecific gravity is <1.005 then results may be falsely negative. Serum HCG is recommended. Performed By: #### 2 106-3 ####[facility]ATORYCLIA [id number] [address] STATES OF [facility] Specific gravity (U) [Rel density] 1.023 1.006 - 1.[address] [facility] HCG Preg Ur Qlon 01-17-2023 HCG ( test) Ql (U) Negative Normal Negative [facility] Comment on above: Order Comment: Speci men Type: URINE SPECIMENOrdering Facility: [facility] Address: [address] [place] [address] Result Comment: This test is intended to aid in the early detection of . Very dilute urine samples, as indicated by a low specific gravity, may not contain parts counter representative levels of hCG. This test detects [...] for . Performed By: #### 2 106-3 ####[facility]ATORYCLIA [id number] [place] [id number] [place] HCG QUAL URon 01-17-2023 HCG ( test) Ql (U) Negative Negative [facility] HISTORY PHYSICALon HISTORY PHYSICAL HNO ID: [id number] Author: Julio Dial APRN.PRESS WASHER Service: ? Author Type: Nurse Practitioner Type: [...] Procedure Laterality Date SECTION HX INDUCED BY [employer] 2008 FAMILY HISTORY Problem Relation Age of [...] cream by RECTAL route twice daily. 01/10/2023 Xmpjnkpe-Rk-Jiw-Fe-FA tab Take 1 tablet by mouth once [...] weeks. Cardiovascular (more content not included)... Normal [facility] OPERATIVE NOon 01-17-2023 OPERATIVE NO HNO ID: [id number] Author: Esme Grace MD Service: General Surgery Author Type: Physician Type: Operative Report Filed: 01/17/2023 8:56 AM Note Text: OPERATIVE/PROCEDURE REPORT LOG ID: [id number] Surgery/Procedure Date: Incision/Procedure Start Time: 8:42 AM Incision Close/Procedure End Time: 8:45 AM Surgeon(s)/Proceduralist(s ) and Color Mixer(s): Surgeon(s) and Role: * Esme Grace MD [...] 2023 TIME: 8:51 AM PAGER/CONTACT #: Normal [facility] SURGICAL PATHOLOGYon 023 CASE REPORT Normal [facility] Comment on above: Order Comment: Speci men Type: TISSUE SPECIMENOrdering Facility: [facility] Address: [facility] [place] [address] Result Comment: Surg [facility] Pathology Report Case: [id number] Authorizing Provider: Esme Grace MD Collected: 01/17/2023 08:42 AM Ordering Location: [facility] Received: 01/17/2023 10:26 AM Pathologist: Awa Jones MD Specimen: ANTRUM (STOMACH) BIOPSY Performed By: #### S ####[facility] LABORATORYCLIA [id number] [address] FINAL DIAGNOSIS Normal [facility] Comment on above: Order Comment: Speci men Type: TISSUE SPECIMENOrdering Facility: [facility] Address: [address] [place] [address] Result Comment: A. S tomach, antrum, biopsy: - Mild reactive gastropathy. No morphologic evidence of Helicobacter pylori. Performed By: #### S ####[facility]ORATORYCLIA [id number] [address] FINAL PERFORMING LAB Normal [facility] Comment on above: Order Comment: Speci men Type: TISSUE SPECIMENOrdering Facility: [facility] Address: [address] [place] [address] Result Comment: Diag nostic interpretation performed at [facility], [address] [place] [address] CLIA# [id number] Cafeteria Manager: Flora Daly M.D. Performed By: #### S ####[facility]ORATORYCLIA [id number] [address] GROSS DESCRIPTION Normal [facility] Comment on above: Order Comment: Speci men Type: TISSUE SPECIMENOrdering Facility: [facility] Address: [address] [place] [address] Result Comment: A. A NTRUM (STOMACH) BIOPSY Received in formalin labeled antrum (stomach) biopsy are multiple pieces of schmidt, soft tissue aggregating to 0.7 x 0.3 x 0.2 cm. Totally submitted in one cassette. Gross examination performed at [facility], [address] [place] [address] CLIA# [id number] RSA January 17, 2023 1:29 PM Performed By: #### S ####[facility]ORATORYCLIA [id number] [address] OF [facility] CNOVon 01-01-2023 CNOV Office Visit (AGGENS 4) -- SIA OLIVERA ([id number]) 1985 F Date Time Provider Department 01/01/23 [...] Procedure Laterality Date SECTION HX INDUCED BY [employer] 2008 FAMILY HISTORY: FAMILY HISTORY Problem Relation [...] Take 1 capsule by mouth once daily. Nmqodyeu-Kp-Fyr-Fe-FA tab Take 1 tablet by mouth once daily. (Patient not ta (more content not included)... [facility] DENSIA ([id number]) 1985 F Date Time Provider Department 01/01/23 [...] 1 capsule by mouth once daily. - Giaipyou-Vw-Aiw-Fe-FA tab Take 1 tablet by mouth once [...] Status:Closed by ESE CONTRERAS on 01/01/23 Normal [facility] Office Visit (Urgent Care)on 12-25-2022 Follow-up [...] pain nausea or vomiting. Patient has used etoj-rmw-otirbwg cough and cold remedies with only minimal [...] Signatures Electronically signed by : Juan Larson, OIL FIELD PIPELINE SUPERVISOR-PRESS WASHER; Dec 25 2022 9:54AM EST (Author) Normal [facility] OBSTETRIC ULTRASOUND WHIon 1 10-31-[address] [facility] UA DIP, URINE (POC)on 2021 BILIRUBIN UA (POCT) Negative Negative [facility] CLARITY UA (POCT) Clear [facility] COLOR UA (POCT) Yellow [facility] GLUCOSE UA (POCT) Negative Negative mg/dL [facility] HEMOGLOBIN/BLOOD UA (POCT) Negative Negative [facility] KETONE UA (POCT) Negative Negative mg/dL [facility] LEUKOCYTES UA (POCT) Large Abnormal Negative [facility] NITRITE UA (POCT) Negative Negative [facility] PH UA (POCT) 7.0 4.5 - 8.[address] [facility] Protein Ql (U) Negative Negative mg/dL [facility] SPECIFIC GRAVITY UA (POCT) 1.020 1.005 - 1.[address] [facility] UROBILINOGEN UA (POCT) 0.2 E.U./dL Normal E.U./dL [facility] UA DIP, URINE (POC)on 2021 BILIRUBIN UA (POCT) Negative Negative [facility] CLARITY UA (POCT) Clear [facility] COLOR UA (POCT) Yellow [facility] GLUCOSE UA (POCT) Negative Negative mg/dL [facility] HEMOGLOBIN/BLOOD UA (POCT) Negative Negative [facility] KETONE UA (POCT) 15 mg/dL Abnormal Negative mg/dL [facility] LEUKOCYTES UA (POCT) Negative Negative [facility] NITRITE UA (POCT) Negative Negative [facility] PH UA (POCT) 7.5 4.5 - 8.0 [facility] Protein Ql (U) Negative Negative mg/dL [facility] SPECIFIC GRAVITY UA (POCT) 1.020 1.005 - 1.030 [facility] UROBILINOGEN UA (POCT) 1.0 E.U./dL Normal E.U./dL [facility] UA DIP, URINE (POC)on 2021 BILIRUBIN UA (POCT) Negative Negative [facility] CLARITY UA (POCT) Clear [facility] COLOR UA (POCT) Yellow [facility] GLUCOSE UA (POCT) Negative Negative mg/dL [facility] HEMOGLOBIN/BLOOD UA (POCT) Negative Negative [facility] KETONE UA (POCT) Negative Negative mg/dL [facility] LEUKOCYTES UA (POCT) Small Abnormal Negative [facility] NITRITE UA (POCT) Negative Negative [facility] PH UA (POCT) 7.0 4.5 - 8.[address] [facility] Protein Ql (U) Trace Abnormal Negative mg/dL [facility] SPECIFIC GRAVITY UA (POCT) 1.020 1.005 - 1.[address] [facility] UROBILINOGEN UA (POCT) 0.2 E.U./dL Normal E.U./dL [facility] OBSTETRIC ULTRASOUND WHIon 1 09-18-2021 [facility] UA DIP, URINE (POC)on 2021 BILIRUBIN UA (POCT) Negative Negative [facility] CLARITY UA (POCT) Clear [facility] COLOR UA (POCT) Yellow [facility] GLUCOSE UA (POCT) Negative Negative mg/dL [facility] HEMOGLOBIN/BLOOD UA (POCT) Negative Negative [facility] KETONE UA (POCT) Negative Negative mg/dL [facility] LEUKOCYTES UA (POCT) Small Abnormal Negative [facility] NITRITE UA (POCT) Negative Negative [facility] PH UA (POCT) 7.5 4.5 - 8.0 [facility] Protein Ql (U) Negative Negative mg/dL [facility] SPECIFIC GRAVITY UA (POCT) 1.020 1.005 - 1.030 [facility] UROBILINOGEN UA (POCT) 0.2 E.U./dL Normal E.U./dL [facility] UA DIP, URINE (POC)on 2021 BILIRUBIN UA (POCT) Negative Negative Lan [facility] CLARITY UA (POCT) Clear [facility] COLOR UA (POCT) Yellow [facility] GLUCOSE UA (POCT) Negative Negative mg/dL [facility] HEMOGLOBIN/BLOOD UA (POCT) Negative Negative [facility] KETONE UA (POCT) Trace Negative mg/dL [facility] LEUKOCYTES UA (POCT) Small Abnormal Negative [facility] NITRITE UA (POCT) Negative Negative [facility] PH UA (POCT) 7.0 4.5 - 8.0 [facility] Protein Ql (U) Negative Negative mg/dL [facility] SPECIFIC GRAVITY UA (POCT) 1.025 1.005 - 1.[address] [facility] UROBILINOGEN UA (POCT) 0.2 E.U./dL Normal E.U./dL [facility] UA DIP, URINE (POC)on 2021 BILIRUBIN UA (POCT) Negative Negative [facility] CLARITY UA (POCT) Clear [facility] COLOR UA (POCT) Yellow [facility] GLUCOSE UA (POCT) Negative Negative mg/dL [facility] HEMOGLOBIN/BLOOD UA (POCT) Negative Negative [facility] KETONE UA (POCT) Negative Negative mg/dL [facility] LEUKOCYTES UA (POCT) Small Abnormal Negative [facility] NITRITE UA (POCT) Negative Negative [facility] PH UA (POCT) 8.0 4.5 - 8.0 [facility] Protein Ql (U) Negative Negative mg/dL [facility] SPECIFIC GRAVITY UA (POCT) 1.020 1.005 - 1.030 [facility] UROBILINOGEN UA (POCT) 0.2 E.U./dL Normal E.U./dL [facility] UA DIP, URINE (POC)on 2021 BILIRUBIN UA (POCT) Negative Negative [facility] CLARITY UA (POCT) Clear [facility] COLOR UA (POCT) Yellow [facility] GLUCOSE UA (POCT) Negative Negative mg/dL [facility] HEMOGLOBIN/BLOOD UA (POCT) Negative Negative [facility] KETONE UA (POCT) Trace Negative mg/dL [facility] LEUKOCYTES UA (POCT) Small Abnormal Negative [facility] NITRITE UA (POCT) Negative Negative [facility] PH UA (POCT) 7.0 4.5 - 8.[address] [facility] Protein Ql (U) 30 mg/dL Abnormal Negative mg/dL [facility] SPECIFIC GRAVITY UA (POCT) 1.020 1.005 - 1.[address] [facility] UROBILINOGEN UA (POCT) 0.2 E.U./dL Normal E.U./dL [facility] CBC panel Auto (Bld)on 02-14 Erythrocyte distribution width (RBC) [Ratio] 13.1 % 11.5 - 15.0 % [facility] Hematocrit (Bld) [Volume fraction] 38.1 % 36.0 - 46.0 % [facility] Hemoglobin (Bld) [Mass/Vol] 12.6 g/dL 11.5 - 15.5 g/dL [facility] MCH (RBC) [Entitic mass] 30.5 pg 26.0 - 34.[address] [facility] MCHC (RBC) [Mass/Vol] 33.1 g/dL 30.5 - 36.0 g/dL [facility] MCV (RBC) [Entitic vol] 92.3 fL 80.0 - 100.[address] [facility] Nucleated RBC (Bld) [#/Vol] 10*3/uL <0.01 k/uL [facility] Platelet mean volume (Bld) [Entitic vol] 9.6 fL 9.0 - 12.[address] [facility] Platelets (Bld) [#/Vol] 353 10*3/uL 150 - 400 k/uL [facility] RBC (Bld) [#/Vol] 4.13 10*6/uL 3.90 - 5.2 0 m/uL [facility] WBC (Bld) [#/Vol] 11.89 10*3/uL High 3.70 - 11 .00 k/uL [facility] TYPE AND SCREENon 02-14-[address] [facility] HIstorical Ab Scr Status Negative [facility] Rh Nom (Bld) Positive [facility] Type and Screen Expiration 02/17/2022 23:[address] [facility] UA DIP, URINE (POC)on 2021 BILIRUBIN UA (POCT) Negative Negative [facility] CLARITY UA (POCT) Clear [facility] COLOR UA (POCT) Yellow [facility] GLUCOSE UA (POCT) Negative Negative mg/dL [facility] HEMOGLOBIN/BLOOD UA (POCT) Negative Negative [facility] KETONE UA (POCT) Negative Negative mg/dL [facility] LEUKOCYTES UA (POCT) Negative Negative [facility] NITRITE UA (POCT) Negative Negative [facility] PH UA (POCT) 7.0 4.5 - 8.[address] [facility] Protein Ql (U) Negative Negative mg/dL [facility] SPECIFIC GRAVITY UA (POCT) 1.025 1.005 - 1.[address] [facility] UROBILINOGEN UA (POCT) 0.2 E.U./dL Normal E.U./dL [facility] Office Visit (Urgent Care)on 01-23-2022 Follow-up visit [...] Capsule Vitals Vital Signs Recorded: 23Jan2022 10:07AM Gxiwjmjcdgw50.6 F, Temporal Heart Tnic227 Uyripdvt028 Ntgqzwtuq47 Height5 ft 3 in Eimmbg105 lb 4 oz BMI Zlnmgjpqaj71.72 kg/m2 BSA Calculated2.03 O2 Jbhqhvckfy83 Physical Exam Vitals signs and nursing notes [...] Jan 23 2022 10:16AM EST (Author) Normal [facility] ED Provider Noteon ED Provider Note [facility] [...] patient come from an ECF, SNF, Rehab, Mcfp or other Congregate setting: No no no [...] Gatherings with Friends and Family: ? Attends Yarsani Services: ? Active Member of Clubs or [...] erythema prese (more content not included)... Normal [facility] CULTURE URINEon 12-25-2020 CULTURE URINE CULTURE URINE --> St atus: F Normal urogenital gregory present. Normal [facility] Comment on above: Performed By: #### C /UR ####[facility] [place], [place] ABO Rh Blood Typeon 12-25-19 21 ABO and Rh group Nom (Bld) ABO Group: O Rh, Gel: POS Normal [facility] Comment on above: Performed By: #### A TY ####[facility] Basic Metabolic Panelon 12-14 Calcium [Mass/Vol] 9.4 mg/dL Normal 8.4-10.4 [facility] Comment on above: Performed By: #### B MP3, QWNT4, TROPN, LIPA4, HEMDF, LFT3 #### [facility] [address] [place], [place] Glucose [Mass/Vol] 87 mg/dL Normal 70-100 [facility] Comment on above: Performed By: #### B MP3, QWNT4, TROPN, LIPA4, HEMDF, LFT3 #### [facility] [address] [place], [place] Urea nitrogen [Mass/Vol] 13 mg/dL Normal 7-20 [facility] Comment on above: Performed By: #### B MP3, QWNT4, TROPN, LIPA4, HEMDF, LFT3 #### [facility] [address] [place], [place] Anion gap [Moles/Vol] 8 mmol/L Normal 3-13 [facility] Comment on above: Performed By: #### B MP3, QWNT4, TROPN, LIPA4, HEMDF, LFT3 #### [facility] [address] [place], [place] CO2 [Moles/Vol] 25 mmol/L Normal 22-30 [facility] Comment on above: Performed By: #### B MP3, QWNT4, TROPN, LIPA4, HEMDF, LFT3 #### [address] Creatinine [Mass/Vol] 0.62 mg/dL Normal 0.52-1.25 [facility] Comment on above: Performed By: #### B MP3, QWNT4, TROPN, LIPA4, HEMDF, LFT3 #### [address] eGFR OTHER > 90.0 Normal >60 [facility] Comment on above: Result Comment: KDIG O [...] MP3, QWNT4, TROPN, LIPA4, HEMDF, LFT3 #### [address] GFR/1.73 sq M.predicted among blacks MDRD (S/P/Bld) [Vol rate/Area] mL/min/{1.73_m2} Normal >60 [facility] Comment on above: Performed By: #### B MP3, QWNT4, TROPN, LIPA4, HEMDF, LFT3 #### [address] Chloride [Moles/Vol] 105 mmol/L Normal 98-107 [facility] Comment on above: Performed By: #### B MP3, QWNT4, TROPN, LIPA4, HEMDF, LFT3 #### [facility] [address] [place], [place] Potassium [Moles/Vol] 3.9 mmol/L Normal 3.5-5.1 [facility] Comment on above: Performed By: #### B MP3, QWNT4, TROPN, LIPA4, HEMDF, LFT3 #### [facility] [address] [place], [place] Sodium [Moles/Vol] 138 mmol/L Normal 135-145 [facility] Comment on above: Performed By: #### B MP3, QWNT4, TROPN, LIPA4, HEMDF, LFT3 #### [facility] [address] [place], [place] Complete Urinalysison 2020 Appearance (U) Clear Normal Clear [facility] Comment on above: Result Comment: . Performed By: #### C UA2 ####[place] [id number] [place], [place] Bacteria Moderate Abnormal Negative [facility] Comment on above: Result Comment: . Performed By: #### C UA2 ####[address] [place], [place] Bilirubin,Urine Negative Normal Negative [facility] Comment on above: Result Comment: . Performed By: #### C UA2 ####[address] [place], [place] Cast, Hyaline Negative Normal Negative [facility] Comment on above: Result Comment: . Performed By: #### C UA2 ####[id number] . [place], [place] Color (U) Light-Yellow Normal Lt. Yellow [facility] Comment on above: Result Comment: . Performed By: #### C UA2 ####[id number] [place], [place] Glucose Ql (U) Normal Normal Normal (<70) [facility] Comment on above: Result Comment: . Performed By: #### C UA2 ####[id number] . [place] [address] Ketone,Urine Negative Normal Negative [facility] Comment on above: Result Comment: . Performed By: #### C UA2 ####[address] [address] [place], [place] Leukocytes,Urine 250 Brionna/uL Abnormal Negative [facility] Comment on above: Result Comment: . Performed By: #### C UA2 ####[address] [place], [place] Mucous Threads Few Normal Negative [facility] Comment on above: Result Comment: . Performed By: #### C UA2 ####[address] [address] [place], [place] Nitrites,Urine Negative Normal Negative [facility] Comment on above: Result Comment: . Performed By: #### C UA2 ####[address] [place], [place] Occult Blood,Urine 0.2 mg/dL Abnormal Negative [facility] Comment on above: Result Comment: . Performed By: #### C UA2 ####[address] [place], [place] pH,Urine 6.0 Normal 5.0-8.0 [facility] Comment on above: Result Comment: . Performed By: #### C UA2 ####[address] [place], [place] RBC, Urine 0 - 2 Normal 0-2 [facility] Comment on above: Result Comment: . Performed By: #### C UA2 ####[address] [place], [place] Specific [place],Urine 1.014 Normal 1.005 - 1.030 [facility] Comment on above: Result Comment: . Performed By: #### C UA2 ####[address] [place], [place] Squamous Epithelial 6 - 10 Abnormal 3-5 [facility] Comment on above: Result Comment: . Performed By: #### C UA2 ####[address] Total Protein,Urine Negative Normal Negative [facility] Comment on above: Result Comment: . Performed By: #### C UA2 ####[id number] [place], [place] Urobilinogen,Urine Normal Normal Normal (0-1) [facility] Comment on above: Result Comment: . Performed By: #### C UA2 ####[id number] [place], [place] WBC, Urine 11 - 25 Abnormal 0-5 [facility] Comment on above: Result Comment: . Performed By: #### C UA2 ####[id number] [place], [place] Hemogram w/ Autodiffon 12-24 Abs Baso Cnt 0.1 10*3/uL Normal 0.0-0.2 [facility] Comment on above: Performed By: #### B MP3, QWNT4, TROPN, LIPA4, HEMDF, LFT3 #### [address] [address] [place], [place] Abs Neutrophile Cnt 7.6 10*3/uL High 1.8-7.0 [facility] Comment on above: Performed By: #### B MP3, QWNT4, TROPN, LIPA4, HEMDF, LFT3 #### [address] [address] [place], [place] Basophils/100 WBC (Bld) 1.0 % Normal 0.0-2.0 [facility] Comment on above: Performed By: #### B MP3, QWNT4, TROPN, LIPA4, HEMDF, LFT3 #### [address] [address] [address] [place], [place] Eosinophils (Bld) [#/Vol] 0.2 10*3/uL Normal 0.0-0.5 [facility] Comment on above: Performed By: #### B MP3, QWNT4, TROPN, LIPA4, HEMDF, LFT3 #### [address] [place], [place] Eosinophils/100 WBC (Bld) 1.8 % Normal 1.0-6.0 [facility] Comment on above: Performed By: #### B MP3, QWNT4, TROPN, LIPA4, HEMDF, LFT3 #### [address] [address] [place], [place] Erythrocyte distribution width (RBC) [Ratio] 13.4 % Normal 11.5-14.5 [facility] Comment on above: Performed By: #### B MP3, QWNT4, TROPN, LIPA4, HEMDF, LFT3 #### [address] Granulocytes/100 WBC (Bld) 56.8 % Normal 40.0-80.0 [facility] Comment on above: Performed By: #### B MP3, QWNT4, TROPN, LIPA4, HEMDF, LFT3 #### [address] Hematocrit (Bld) [Volume fraction] 37.0 % Normal 35.0-47.0 [facility] Comment on above: Performed By: #### B MP3, QWNT4, TROPN, LIPA4, HEMDF, LFT3 #### [address] [address] [place], [place] Hemoglobin (Bld) [Mass/Vol] 12.3 g/dL Normal 11.7-16.0 [facility] Comment on above: Performed By: #### B MP3, QWNT4, TROPN, LIPA4, HEMDF, LFT3 #### [address] Lymphocytes (Bld) [#/Vol] 4.5 10*3/uL High 1.0-4.3 [facility] Comment on above: Performed By: #### B MP3, QWNT4, TROPN, LIPA4, HEMDF, LFT3 #### [address] Lymphocytes/100 WBC (Bld) 33.1 % Normal 20.0-40.0 [facility] Comment on above: Performed By: #### B MP3, QWNT4, TROPN, LIPA4, HEMDF, LFT3 #### [address] [place], [place] MCH (RBC) [Entitic mass] 31.1 pg Normal 26.0-34.0 [facility] Comment on above: Performed By: #### B MP3, QWNT4, TROPN, LIPA4, HEMDF, LFT3 #### [address] [address] [place] MCHC 33.2 % Normal 32.0-36.0 [facility] Comment on above: Performed By: #### B MP3, QWNT4, TROPN, LIPA4, HEMDF, LFT3 #### [address] MCV (RBC) [Entitic vol] 93.4 fL Normal 79.0-98.0 [facility] Comment on above: Performed By: #### B MP3, QWNT4, TROPN, LIPA4, HEMDF, LFT3 #### [address] Monocytes (Bld) [#/Vol] 1.0 10*3/uL High 0.0-0.8 [facility] Comment on above: Performed By: #### B MP3, QWNT4, TROPN, LIPA4, HEMDF, LFT3 #### [address] Monocytes/100 WBC (Bld) 7.3 % Normal 2.0-10.0 [facility] Comment on above: Performed By: #### B MP3, QWNT4, TROPN, LIPA4, HEMDF, LFT3 #### [address] Platelet mean volume (Bld) [Entitic vol] 7.5 fL Normal 7.4-10.4 [facility] Comment on above: Performed By: #### B MP3, QWNT4, TROPN, LIPA4, HEMDF, LFT3 #### [address] Platelets (Bld) [#/Vol] 349 10*3/uL Normal 140-440 [facility] Comment on above: Performed By: #### B MP3, QWNT4, TROPN, LIPA4, HEMDF, LFT3 #### [facility] [address] [place], [place] RBC (Bld) [#/Vol] 3.96 10*6/uL Normal 3.80-5.20 [facility] Comment on above: Performed By: #### B MP3, QWNT4, TROPN, LIPA4, HEMDF, LFT3 #### [address] [address] [place], [place] WBC (Bld) [#/Vol] 13.4 10*3/uL High 3.6-10.7 [facility] Comment on above: Performed By: #### B MP3, QWNT4, TROPN, LIPA4, HEMDF, LFT3 #### [address] [place], [place] Hepatic Functionon 1 ALP [Catalytic activity/Vol] 64 U/L Normal 38-126 [facility] Comment on above: Performed By: #### B MP3, QWNT4, TROPN, LIPA4, HEMDF, LFT3 #### [address] [address] [place], [place] ALT [Catalytic activity/Vol] 20 U/L Normal 0-34 [facility] Comment on above: Result Comment: The ALT test is performed by an updated assay method. Please note that the reference intervals have been changed and are now sex specific. Performed By: #### B MP3, QWNT4, TROPN, LIPA4, HEMDF, LFT3 #### [address] [place], [place] AST [Catalytic activity/Vol] 27 U/L Normal 15-46 [facility] Comment on above: Performed By: #### B MP3, QWNT4, TROPN, LIPA4, HEMDF, LFT3 #### [address] [address] [place], [place] Bilirubin [Mass/Vol] 0.3 mg/dL Normal 0.2-1.3 [facility] Comment on above: Performed By: #### B MP3, QWNT4, TROPN, LIPA4, HEMDF, LFT3 #### [address] [address] [place], [place] Bilirubin.indirect [Mass/Vol] 0.0 mg/dL Normal 0.0-0.3 [facility] Comment on above: Performed By: #### B MP3, QWNT4, TROPN, LIPA4, HEMDF, LFT3 #### [address] [address] [place], [place] Protein [Mass/Vol] 7.4 g/dL Normal 6.3-8.2 [facility] Comment on above: Performed By: #### B MP3, QWNT4, TROPN, LIPA4, HEMDF, LFT3 #### [address] [address] [place], [place] Albumin [Mass/Vol] 4.4 g/dL Normal 3.5-5.0 [facility] Comment on above: Performed By: #### B MP3, QWNT4, TROPN, LIPA4, HEMDF, LFT3 #### [address] Lipaseon 12-24-2020 Lipase [Catalytic activity/Vol] 110 U/L Normal 23-300 [facility] Comment on above: Performed By: #### B MP3, QWNT4, TROPN, LIPA4, HEMDF, LFT3 #### [address] Troponin Ion 12-24-2020 Troponin I.cardiac [Mass/Vol] ng/mL Normal 0.000-0.034 [facility] Comment on above: Result Comment: . Performed By: #### B MP3, QWNT4, TROPN, LIPA4, HEMDF, LFT3 #### [address] Troponin x1on 12-24-2020 Troponin I.cardiac [Mass/Vol] ng/mL 0.000 - 0.034 ng/mL [facility] Work Phone: Comment on above: . Test Performed by [facility], [address] [place] [address] [facility] Work Phone: US ABDOMEN LIMITEDon 021 [place], [facility] Incoming Radiology Results From [facility] - 12/24/2020 12:55 AM EDT Patient Name: SIA OLIVERA Ultrasound ACCESSION EXAM DATE/TIME PROCEDURE ORDERING PROVIDER [id number] 12/24/2020 00:13 EDT US Abdomen Limited MD MILES SCOTT ALAN CPT code 90036 Reason For Exam (US Abdomen Limited) RUQ [...] Ultrasound ACCESSION EXAM DATE/TIME PROCEDURE ORDERING PROVIDER [id number] 12/24/2020 00:13 EDT US Abdomen Limited MD MILES SCOTT ALAN CPT code 45558 Reason For Exam (US Abdomen Limited) RUQ [...] Ultrasound ACCESSION EXAM DATE/TIME PROCEDURE ORDERING PROVIDER [id number] 12/24/2020 00:13 EDT US Abdomen Limited MD MILES SCOTT ALAN CPT code 58135 Reason For Exam (US Abdomen Limited) RUQ [...] Transcribed Date and Time: 12/24/2020 0:51 Normal [facility] US OB TRANSVAGINALon 021 [id number]ound ACCESSION EXAM DATE/TIME PROCEDURE ORDERING PROVIDER [id number] 12/24/2020 00:08 EDT [place] [id number] -REYNALDO MANDEL Transvaginal CPT code 43141 Reason For Exam (US Transvaginal) , abdominal [...] Phone: [place], [facility] Incoming Radiology Results From [facility] - 12/24/2020 12:55 AM EDT Patient Name: SIA OLIVERA Ultrasound ACCESSION EXAM DATE/TIME PROCEDURE ORDERING PROVIDER [id number] 12/24/2020 00:08 EDT [place] [id number] -REYNALDO MANDEL Transvaginal CPT code 90002 Reason For Exam (US Transvaginal) , abdominal [...] Ultrasound ACCESSION EXAM DATE/TIME PROCEDURE ORDERING PROVIDER [id number] 12/24/2020 00:08 EDT [place] [id number] -REYNALDO MANDEL Transvaginal CPT code 66478 Reason For Exam (US Transvaginal) , abdominal [...] weeks. 6 d. Report Dictated on Workstation: [id number] Final Dictated: 12/24/2020 0:51 am Dictating Physician: MD MAHONEY WILLIAM Signed Date and Time: 12/24/2020 0:54 am Signed by: MD MAHONEY WILLIAM Transcribed Date and Time: 12/24/2020 0:51 Normal [facility] hCG Quantitativeon 1 hCG Quantitative 8098 m[IU]/mL Abnormal [facility] Comment on above: Result Comment: Fema les [...] MP3, QWNT4, TROPN, LIPA4, HEMDF, LFT3 #### [facility] [address] [address] ABO/RHon 12-23-2020 Sodium [Moles/Vol] O [facility] Work Phone: Sodium [Moles/Vol] Positive [facility] Work Phone: Test Performed by [facility], [place] [address] [facility] Work Phone: Basic Metabolic Panelon 12-14 Anion gap [Moles/Vol] 8 mmol/L 3 - 13 mmol/L [facility] Work Phone: [phone] Calcium [Mass/Vol] 9.4 mg/dL 8.4 - 10. 4 mg/dL [facility] Work Phone: Chloride [Moles/Vol] 105 mmol/L 98 - 10 7 mmol/L [facility] Work Phone: CO2 [Moles/Vol] 25 mmol/L 22 - 30 mmol/L [facility] Work Phone: Creatinine [Mass/Vol] 0.62 mg/dL 0.52 - 1.25 mg/dL [facility] Work Phone: EGFR IF NonAfrican Nicaraguan >90.0 >60 mL/min [facility] Work Phone: Comment on above: [...] 1 ED Provider Note Emergency Department Encounter [facility] EMERGENCY DEPT Patient: Sia Olivera : 1985 [...] ventricular rate of 71 beats per him. SD, QRS, QTc within normal is. Normal axis. [...] 12/25/20 1250 Kenny Miles MD 12/25/20 1251 [facility] ED Provider Note [facility] EM[facility]GENCY [facility]PT EMERGENCY DEPARTMENT ENCOUNTER Pt Name: [...] patient come from an ECF, SNF, Rehab, Mcfp or other Congregate setting: no (If yes [...] on phone: None Gets together: None Attends holiness service: None Active member of club or [...] abdominal t (more content not included)... Normal [facility] HCG, QUANTITATIVE, on 12-23-2020 hCG Quant 8098 m[IU]/mL Abnormal [facility] Work Phone: Comment on above: Females < [...] Work Phone: [phone] Test Performed by [facility], [address] [place] [address] [facility] Work Phone: ) Hemogram (CBC) w/Auto [...] Interpretation and review of laboratory results Abnormal [facility] Work Phone: [phone] Lymphocytes (Bld) [#/Vol] [...] 10*3/uL [facility] Work Phone: Test Performed by [facility], [address] [place] [address] [facility] Work Phone: Hepatic Function Panelon Albumin [Mass/Vol] 4.4 g/dL 3.5 - 5.0 g/dL [facility] Work Phone: ALP (Bld) [Catalytic activity/Vol] 64 U/L 38 - 126 U/L [facility] Work Phone: ALT [Catalytic activity/Vol] 20 U/L 0 - 34 U/L [facility] Work Phone: Comment on above: The ALT [...] Phone: [phone] Otheron 12-23-2020 Test Performed by [facility], [address] [place] [address] [facility] Work Phone: [phone] Urinalysison 12-23-2020 Appearance (U) Clear Clear NA [facility] Work Phone: [phone] Comment on above: . Bacteria, UA Moderate Abnormal Negative /[HPF] [facility] Work Phone: [phone] Comment on above: . Bilirubin Urine Negative Negative mg/dL [facility] Work Phone: [phone] Comment on above: . Color (U) Light-Yellow Lt. Yellow NA [facility] Work Phone: [phone] Comment on above: . Glucose, Ur Normal Normal (<70) mg/dL [facility] Work Phone: [phone] Comment on above: . Hyaline Casts, UA Negative Negative /[LPF] [facility] Work Phone: [phone] Comment on above: . Interpretation and review of laboratory results Abnormal [facility] Work Phone: [phone] Ql (U) Negative Negative mg/dL [facility] Work Phone: [phone] Comment on above: . LEUKOCYTES, UA 250 Abnormal Negative Brionna/uL [facility] Work Phone: [phone] Comment on above: . Mucous Threads Few Negative /[LPF] [facility] Work Phone: Comment on above: . Nitrite, Urine Negative Negative NA [facility] Work Phone: Comment on above: . Occult Blood,Urine 0.2 mg/dL Abnormal Negative [facility] Work Phone: Comment on above: . pH (U) 6.0 [pH] [facility] Work Phone: Comment on above: . Protein (U) [Mass/Vol] Negative Negative mg/dL [facility] Work Phone: Comment on above: . RBC (U) [#/Vol] 0-2 0 - 2 /[HPF] [facility] Work Phone: Comment on above: . Specific [place], Urine 1.014 [facility] Work Phone: Comment on above: . Squam Epithel, UA 6-10 Abnormal 3 - 5 /[HPF] [facility] Work Phone: Comment on above: . Urobilinogen, Urine Normal Normal ( 0-1) mg/dL [facility] Work Phone: Comment on above: . WBC, UA 11-25 Abnormal 0 - 5 /[HPF] [facility] Work Phone: Comment on above: . Test Performed by [facility], [address] [place] [address] [facility] Work Phone: XR SHLDR >/=3V AP/NAZ AP/OTH [...] significant degenerative change. IMPRESSION: Unremarkable left shoulder. Music Minister: CATHERINE Transcribe Date/Time: Mar 27 2020 12:23A Dictated by : ERIC FERNANDES MD This examination was interpreted and the report reviewed and electronically signed by: ERIC FERNANDES MD on Mar 27 2020 12:24AM EST Normal [facility] Metabolic Panelon 08-04-2019 Sodium [Moles/Vol] Negative [place], [place] Sodium [Moles/Vol] [place] Comment on above: The following drugs [...] non-forensic procedures. Otheron 08-04-2019 Test Performed by [address] [address] [place], [place] Urinalysison 08-04-2019 Amphetamines Ql (U) Negative [facility], [place] Benzodiazepines Ql (U) Negative [place], [place] Cocaine Ql (U) Negative [facility], [place] Opiates Ql (U) Negative [place] Buprenorphine Screenon 07-06 Buprenorphine Screen Negative Normal [facility] Comment on above: Result Comment: Bupr enorphine (Suboxone) has been screened for by immunoassay at 5 ng/mL threshold. The screening assay provides only a preliminary test result. A more specific alternative method must be used to confirm preliminary positive results. Performed By: #### I GN #### [address] [address] [place] [address] Fentanyl Screen, Urineon Fentanyl Screen, Urn Negative Normal Negative [facility] Comment on above: Result Comment: Fent anyl has been screened for by Immunoassay at a 2ng/ml threshold. POSITIVE results are not confirmed by a more specific alternative method unless requested. If confirmation is needed, request confirmation under separate order. NOTE: These results are for medical treatment only. Analysis performed using non-forensic procedures. Performed By: #### I GN #### [address] [facility], [place] [facility] 2018 Amphetamines Ql (U) Negative [facility] Comment on above: Performed By: #### I GN #### [facility] [address] [facility], [place] Barbiturates Negative [facility] Comment on above: Performed By: #### I GN #### [facility] [address] [facility], [place] Benzodiazepines Ql (U) Negative [facility] Comment on above: Performed By: #### I GN #### [facility] [address] [facility], [place] Cocaine Metabolites Negative [facility] Comment on above: Performed By: #### I GN #### [facility] [address] [facility], [place] Comment [facility] Comment on above: Result Comment: The following [...] procedures. Performed By: #### I GN #### [facility] [address] [facility], [place] Ethanol [Mass/Vol] Negative [facility] Comment on above: Performed By: #### I GN #### [facility] [address] [facility] Opiates Ql (U) Negative [facility] Comment on above: Performed By: #### I GN #### [facility] [address] [facility], [place] Oxycodone Negative [facility] Comment on above: Performed By: #### I GN #### [facility] [address] [place] [address] THC Negative Normal [facility] Comment on above: Performed By: #### I GN #### [facility] [address] [place] [address] Metabolic Panelon 07-05-2019 Sodium [Moles/Vol] Negative [place], [place] Comment on above: Buprenorphine (Subox one) has been screened for by immunoassay at 5 ng/mL threshold. The screening assay provides only a preliminary test result. A more specific alternative method must be used to confirm preliminary positive results. Sodium [Moles/Vol] [place] Comment on above: The following drugs [...] procedures. Otheron 07-05-2019 Fentanyl Negative Negative NA [place] Comment on above: Fentanyl has been [...] performed using non-forensic procedures. Test Performed by [facility], [address] [place] [address] [place], [place] Test Performed by [facility], [address] [place] [address] [facility], [place] Urinalysison 07-05-2019 Amphetamines Ql (U) Negative [place] Benzodiazepines Ql (U) Negative [facility], [place] Cocaine Ql (U) Negative [facility], [place] Opiates Ql (U) Negative [facility] Buprenorphine Screenon 06-29 Buprenorphine Screen Negative Normal [facility] Comment on above: Result Comment: Bupr enorphine (Suboxone) has been screened for by immunoassay at 5 ng/mL threshold. The screening assay provides only a preliminary test result. A more specific alternative method must be used to confirm preliminary positive results. Performed By: #### I GN, FENTU, BUPR #### [facility] [address] [place] [address] Fentanyl Screen, Urineon Fentanyl Screen, Urn Negative Normal Negative [facility] Comment on above: Result Comment: Fent anyl has been screened for by Immunoassay at a 2ng/ml threshold. POSITIVE results are not confirmed by a more specific alternative method unless requested. If confirmation is needed, request confirmation under separate order. NOTE: These results are for medical treatment only. Analysis performed using non-forensic procedures. Performed By: #### I GN #### [facility] [address] [place] [address] Fentanyl, Urineon 06-28-2019 Fentanyl Negative Negative NA [place] Comment on above: Fentanyl has been sc reened for by Immunoassay at a 2ng/ml threshold. POSITIVE results are not confirmed by a more specific alternative method unless requested. If confirmation is needed, request confirmation under separate order. NOTE: These results are for medical treatment only. Analysis performed using non-forensic procedures. [place] Screenon 2018 Amphetamines Ql (U) Negative [facility], [place] Benzodiazepines Ql (U) Negative [place], [place] Cocaine Ql (U) Negative [place] Opiates Ql (U) Negative [place] Sodium [Moles/Vol] [place] Comment on above: The following drugs [...] using non-forensic procedures. Amphetamines Ql (U) Negative [facility] Comment on above: Performed By: #### I GN, FENTU, BUPR #### [facility] [address] [place], [place] Barbiturates Negative [facility] Comment on above: Performed By: #### I GN, FENTU, BUPR #### [facility] [address] [place], [place] Benzodiazepines Ql (U) Negative [facility] Comment on above: Performed By: #### I GN, FENTU, BUPR #### [address] [address] [address] [place], [place] Cocaine Metabolites Negative [facility] Comment on above: Performed By: #### I MICHAEL FENTU, BUPR #### [address] [address] [address] [place], [place] Comment [facility] Comment on above: Result Comment: The following [...] By: #### I GN, FENTU, BUPR #### [address] [address] [address] [place], [place] Ethanol [Mass/Vol] Negative [facility] Comment on above: Performed By: #### I GN, FENTU, BUPR #### [address] [address] [address] [place] Opiates Ql (U) Negative [facility] Comment on above: Performed By: #### I ANTHONY RODRIGUEZ BUPR #### [address] [address] [address] [place], [place] Oxycodone Negative [facility] Comment on above: Performed By: #### I SHAW RODRIGUEZU, BUPR #### [address] [address] [address] [place], [place] THC Negative [facility] Comment on above: Performed By: #### I ANTHONY RODRIGUEZ BUPR #### [address] [address] [address] [place] Metabolic Panelon 06-28-2019 Sodium [Moles/Vol] Negative [place], [place] Comment on above: Buprenorphine (Subox one) has been screened for by immunoassay at 5 ng/mL threshold. The screening assay provides only a preliminary test result. A more specific alternative method must be used to confirm preliminary positive results. Otheron 06-28-2019 Test Performed by [facility], [place] [address] [place], [place] [facility] 2018 Amphetamines Ql (U) Negative [facility] Comment on above: Performed By: #### I GN #### [address] [address] [address] [place], [place] Barbiturates Negative [facility] Comment on above: Performed By: #### I GN #### [address] [address] [address] [place] Benzodiazepines Ql (U) Negative [facility] Comment on above: Performed By: #### I GN #### [address] [address] [address] [place], [place] Cocaine Metabolites Negative [facility] Comment on above: Performed By: #### I GN #### [address] [address] [address] [place], [place] Comment [facility] Comment on above: Result Comment: The following [...] procedures. Performed By: #### I GN #### [facility] [address] [place], [place] Ethanol [Mass/Vol] Negative [facility] Comment on above: Performed By: #### I GN #### [facility] [address] [place], [place] Opiates Ql (U) Negative [facility] Comment on above: Performed By: #### I GN #### [place] [address] [place], [place] [facility] Comment on above: Performed By: #### I GN #### [facility] [address], [place] [facility] Comment on above: Performed By: #### I GN #### [place] [address], [place] [facility] Screenon 2018 Amphetamines Ql (U) Negative [facility], [place] Benzodiazepines Ql (U) Negative [facility] Cocaine Ql (U) Negative [facility] Opiates Ql (U) Negative [facility] Sodium [Moles/Vol] [facility] Comment on above: The following drugs or drug groups have been screened for by Immunoassay at the thresholds listed: Amphetamine class(1000 ng/mL), Barbiturates(300 ng/mL), Benzodiazepines(200 ng/mL),Cocaine(300 ng/mL), Ethanol(50 ng/dL),Opiates(300 ng/mL),Oxycodone(100 ng/mL), and THC(50 ng/mL) A more specific alternative method must be used to confirm preliminary positive results. NOTE: These results are for medical treatment only. Analysis performed using non-forensic procedures. Test Performed by [facility], [address] [place] [address] [place], [place] Amphetamines Ql (U) [facility] Comment on above: Performed By: #### I GN #### [facility] [address] [facility] [place] Barbitur[facility] Comment on above: Performed By: #### I GN #### [facility] [address] [facility], [place] Benzodiazepines Ql (U) [facility] Comment on above: Performed By: #### I GN #### [facility] [address] [facility], [place] Cocaine Metabolites [facility] Comment on above: Performed By: #### I GN #### [facility] [address] [facility], [place] Comment [facility] Comment on above: Result Comment: The following [...] procedures. Performed By: #### I GN #### [facility] [address] [facility], [place] Ethanol [Mass/Vol] [facility] Comment on above: Performed By: #### I GN #### [facility] [address] [facility], [place] Opiates Ql (U) [facility] Comment on above: Performed By: #### I GN #### [facility] [address] [facility] [place] [facility] Comment on above: Performed By: #### I GN #### [facility] [address], [place] [facility] Comment on above: Performed By: #### I GN #### [facility] [address], [place] Metabolic Panelon 06-16-2019 Sodium [Moles/Vol] Negative [facility] [place], [place] Buprenorphine Screenon 06-08 Buprenorphine Screen Negative Normal [facility] Comment on above: Result Comment: Bupr enorphine (Suboxone) has been screened for by immunoassay at 5 ng/mL threshold. The screening assay provides only a preliminary test result. A more specific alternative method must be used to confirm preliminary positive results. Performed By: #### F ENTU, BUPR, IGN #### [place] [address] [place], [place] Fentanyl Screen, Urineon Fentanyl Screen, Urn Negative Normal Negative [facility] Comment on above: Result Comment: Fent anyl has been screened for by Immunoassay at a 2ng/ml threshold. POSITIVE results are not confirmed by a more specific alternative method unless requested. If confirmation is needed, request confirmation under separate order. NOTE: These results are for medical treatment only. Analysis performed using non-forensic procedures. Performed By: #### F ENTU, BUPR, IGN #### [facility] [address], [place] Screenon 2018 Amphetamines Ql (U) [facility] Comment on above: Performed By: #### F ENTU, BUPR, IGN #### [facility] [address], [place] Barbit[facility]ates [facility] Comment on above: Performed By: #### F ENTU, BUPR, IGN #### [place] [address] [place], [place] Benzodiazepines Ql (U) [facility] Comment on above: Performed By: #### F ENTU, BUPR, IGN #### [place] [address] [place], [place] Cocaine Metabolites [facility] Comment on above: Performed By: #### F ENTU, BUPR, IGN #### [facility] [address], [place] Comment Normal [facility] Comment on above: Result Comment: The following [...] By: #### F ENTU, BUPR, IGN #### [place] [address] [place], [place] Ethanol [Mass/Vol] [facility] Comment on above: Performed By: #### F ENTU, BUPR, IGN #### [place] [address] [place], [place] Opiates Ql (U) [facility] Comment on above: Performed By: #### F ENTU, BUPR, IGN #### [place] [address] [place], [place] [facility] Comment on above: Performed By: #### F ENTU, BUPR, IGN #### [place] [address] [place], [place] [facility] Comment on above: Performed By: #### F ENTU, BUPR, IGN #### [place] [address] [place], [place] [facility]acon 06-01-2019 Cholesterol [Mass/Vol] 195 mg/dL <200 [place], [place] Cholesterol in HDL [Mass/Vol] 26 mg/dL Low 40 - 60 mg/dL [place], [place] Cholesterol in LDL [Mass/Vol] 129 mg/dL Abnormal <100 [place], [place] Triglyceride [Mass/Vol] 199 mg/dL Abnormal <150 [place], [place] Metabolic Panelon 06-01-2019 HbA1c (Bld) [Mass fraction] 5.8 % High 4 - 5.7 % [place], [place] Comment on above: --HgbA1C levels may not be accurate in patients who have renal disease, received recent blood transfusions, are anemic, or who have dyshemoglobinemia. Otheron 06-01-2019 eAG 120 mg/dL [place], [place] Interpretation and review of laboratory results Abnormal [place] Test Performed by [place] [address] Test Performed by [place] [address] Cholesterol.total/Cho lesterol in HDL [Mass ratio] 8 {ratio} [place], [place] Comment on above: Ref Range: < 3 Low Risk for CHD 3-6 Mod Risk for CHD > 6 High Risk for CHD Ref Range: < 3 Low Risk for CHD 3-6 Mod Risk for CHD > 6 High Risk for CHD Interpretation and review of laboratory results Abnormal [place], [place] Test Performed by [facility], [facility] [address] 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1985 Requested By: Order Number: [id number] Reading MD: Rubio Gonzalez Measurements Intervals [place] Rate: 101 P: 72 SD: 160 QRS: 1 QRSD: 86 T: 29 QT: 353 QTc: 458 Interpretive Statements Sinus tachycardia Electronically Signed On 05-30-2019 17:49:59 EDT by Rubio [facility] Test Date: 2019-05-28 Pat Name: Sia Blake Department: 1AER Room: 36 Gender: F 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1985 Requested By: Order Number: [id number] Reading MD: Rubio Gonzalez Measurements Intervals [place] Rate: 101 P: 72 SD: 160 QRS: 1 QRSD: 86 T: 29 QT: 353 QTc: 458 Interpretive Statements Sinus tachycardia Electronically Signed On 05-30-2019 17:49:59 EDT by Rubio Gonzalez [facility] Test Date: 2019-05-28 Pat Name: Sia Blake Department: 1A Room: 36 Gender: F 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1985 Requested By: Order Number: [id number] Reading MD: Rubio Gonzalez Measurements Intervals [place] Rate: 101 P: 72 SD: 160 QRS: 1 QRSD: 86 T: 29 QT: 353 QTc: 458 Interpretive Statements Sinus tachycardia Electronically Signed On 05-30-2019 17:49:59 EDT by Rubio Gonzalez [place], [place] Hematologyon 05-28-2019 Basophils/100 WBC (Bld) 0.8 % 0 - 2 % [place] Eosinophils (Bld) [#/Vol] 0.2 10*3/uL 0 - 0.5 10*3/uL [place] Eosinophils/100 WBC (Bld) 2.1 % 1 - 6 % [place] Hematocrit (Bld) [Volume fraction] 37.3 % 35 - 47 % [place] Hemoglobin (Bld) [Mass/Vol] 12.7 g/dL 11.7 - 16 g/dL [place] Lymphocytes (Bld) [#/Vol] 3.3 10*3/uL 1 - 4.3 10*3/uL [place] Lymphocytes/100 WBC (Bld) 31.8 % 20 - 40 % [place] MCH (RBC) [Entitic mass] 32.2 pg 26 - 34 pg [place], [place] MCV (RBC) [Entitic vol] 94.7 fL 79 - 98 fL [place], [place] Monocytes (Bld) [#/Vol] 1.2 10*3/uL High 0 - 0.8 10*3/uL [place] Monocytes/100 WBC (Bld) 11.6 % High 2 - 10 % [place] Platelets (Bld) [#/Vol] 359 10*3/uL 140 - 440 10*3/uL [place] RBC (Bld) [#/Vol] 3.94 10*6/uL 3.8 - 5.2 10*6/uL [place] WBC (Bld) [#/Vol] 10.3 10*3/uL 3.6 - 10.7 10*3/uL [place] Metabolic Panelon 05-28-2019 Sodium [Moles/Vol] Accepted [place], [place] Comment on above: Specimen available & acceptable for analysis. Albumin [Mass/Vol] 4.3 g/dL 3.5 - 5 g/dL [place], [place] ALP [Catalytic activity/Vol] 49 U/L 38 - 126 U/L [place] ALT [Catalytic activity/Vol] 13 U/L 13 - 69 U/L [place] Anion gap [Moles/Vol] 10 mmol/L [place], [place] AST [Catalytic activity/Vol] 23 U/L 15 - 46 U/L [place] Calcium [Mass/Vol] 9.8 mg/dL 8.4 - 10. 4 mg/dL [place] Chloride [Moles/Vol] 107 mmol/L 98 - 10 7 mmol/L [place] CO2 [Moles/Vol] 26 mmol/L 22 - 30 mmol/L [place] Creatinine [Mass/Vol] 0.71 mg/dL 0.52 - 1.25 mg/dL [place], [place] GFR/1.73 sq M predicted among blacks MDRD (S/P/Bld) [Vol rate/Area] mL/min/{1.73_m2} >60 mL/min [place], [place] Glucose [Mass/Vol] 81 mg/dL 70 - 100 mg/dL [place], [place] Potassium [Moles/Vol] 3.4 mmol/L Low 3.5 - 5.1 mmol/L [facility], [place] Protein [Mass/Vol] 7.5 g/dL 6.3 - 8.2 g/dL [facility], [place] Sodium [Moles/Vol] 142 mmol/L 135 - 145 mmol/L [facility] Urea nitrogen [Mass/Vol] 9 mg/dL 7 - 20 mg/dL [facility], [place] Otheron 05-28-2019 Amphetamines, urine Negative [facility] Barbiturates, Ur Negative [facility] Benzodiazepine Ur Qual Negative [facility], [place] Cocaine Metabolites, Ur Negative [facility] Methadone, Urine Negative [facility] Opiates, Urine Negative [facility] Oxycodone Screen, Ur Negative [facility], [place] PCP, Urine Negative [facility], [place] Comment on above: The expected value [...] confirmation under separate order. Test Performed by [facility], [address] [place] [address] Test Performed by [facility], [facility] [address] Interpretation and review of laboratory results Abnormal [place], [place] Total CK 219 U/L High 30 - 170 U/L [place] Test Performed by [facility], [facility] [address] [place], [place] [id number] [place] [address], [place] Test Performed by [facility], [facility] [address] [place], [place] [id number] [place] [address] Salicylate Lvl <1.0 0 - 20 mg/dL [facility], [place] Test Performed by [facility], [facility] [place] [id number] [place] [address], [place] Test Performed by [facility], [facility] [place] [id number] [place] [address], [place] Test Performed by [facility], [facility] [place], [place] [id number] [place] [address], [place] Test Performed by [facility], [facility] [place] [id number] [place] [address], [place] Acetaminophen [Mass/Vol] <10.0 10 - 30 ug/mL [place] Bilirubin Ql (U) 0.4 mg/dL 0.2 - 1.3 mg/dL [place] EGFR IF NonAfrican [place] >60.0 >60 mL/min [place], [place] Comment on above: Source- MDRD equatio n with creatinine calibration to IDMS(NKDEP) eGFR not recommended for drug dose adjustment Ethanol Lvl <0.010 0 - 0.01 g/dL [place], [place] Comment on above: NOTE: This result is for medical treatment only. Analysis performed using non-forensic procedures. Interpretation and review of laboratory results Abnormal [facility], [place] Test Performed by [facility], [address] [place] [id number] [place] [address], [place] Test Performed by [id number] [place] [address], [place] Test Performed by [facility], [facility] [place], [place] [address] [place] [address], [place] Test Performed by [facility], [facility] [place], [place] [id number] [place] [address], [place] Bilirubin Urine Negative mg/dL [place], [place] Comment on above: Reference Range: Neg ative Glucose, Ur Normal mg/dL [place], [place] Comment on above: Reference Range: Nor mal (<70) LEUKOCYTES, UA Negative [place]/uL [place], [place] Comment on above: Reference Range: Neg ative Nitrite, Urine Negative [place], [place] Comment on above: Reference Range: Neg ative Occult Blood,Urine Negative mg/dL [place], [place] Comment on above: Reference Range: Neg ative pH (U) 8.0 [pH] [place], [place] Specific [place], Urine 1.008 [place], [place] Urobilinogen, Urine Normal mg/dL [place], [place] Comment on above: Reference Range: Nor mal (0-1) Test Performed by [address] Test Performed by [address] Absolute Baso # 0.1 10*3/uL 0 - 0.2 10*3/uL [place] Absolute Neut # 5.5 10*3/uL 1.8 - 7 10*3/uL [place] Erythrocyte distribution width (RBC) [Ratio] 13.2 % 11.5 - 14.5 % [place], [place] Granulocytes/100 WBC (Bld) 53.7 % 40 - 80 % [place], [place] Interpretation and review of laboratory results Abnormal [place], [place] MCHC (RBC) [Mass/Vol] 34.0 % 32 - 36 % [place], [place] Platelet mean volume (Bld) [Entitic vol] 7.5 fL 7.4 - 10.4 fL [place] Test Performed by [address] Test Performed by [place] [address] Urinalysison 05-28-2019 Beta HCG ( test) Ql (U) Negative Negative NA [place], [place] Comment on above: is the mos t common reason for HCG in urine, although choriocarcinoma, hydatidiform mole, and certain nontropho- blastic malignancies also result in detectable urinary HCG levels. Sensitivity = 20mIU/mL. Appearance (U) Turbid [place], [place] Comment on above: Reference Range: Vinicius ar Color (U) Light-Yellow [place], [place] Comment on above: Reference Range: Lt. Yellow Ketones Ql (U) Negative mg/dL [facility] [place] Comment on above: Reference Range: Neg ative Protein (U) [Mass/Vol] Negative mg/dL [place], [place] Comment on above: Reference Range: Neg ative [facility] 2018 Amphetamines Ql (U) [facility] Comment on above: Performed By: #### I GN #### [facility] [address], [place] [facility] Comment on above: Performed By: #### I GN #### [facility] [address] [place], [place] Barbiturates [facility] Comment on above: Performed By: #### I GN #### [place] [address] [place], [place] Benzodiazepines Ql (U) [facility] Comment on above: Performed By: #### I GN #### [facility] [address] [place], [place] Cocaine Metabolites [facility] Comment on above: Performed By: #### I GN #### [facility] [address] [place], [place] Comment [facility] Comment on above: Result Comment: The following [...] procedures. Performed By: #### I GN #### [facility] [address] [place], [place] Ethanol [Mass/Vol] [facility] Comment on above: Performed By: #### I GN #### [facility] [address] [place] [address] Opiates Ql (U) Negative Normal [facility] Comment on above: Performed By: #### I GN #### [facility] [address] [facility] [place] [address] Oxycodone Negative Normal [facility] Comment on above: Performed By: #### I GN #### [facility] [address] [place] [address] Metabolic Panelon 05-26-2019 Sodium [Moles/Vol] Positive [place] Sodium [Moles/Vol] [place] Comment on above: The following drugs [...] performed using non-forensic procedures. Sodium [Moles/Vol] Negative [facility], [place] Otheron 05-26-2019 Test Performed by [facility], [address], [place] [address] [place], [place] Urinalysison 05-26-2019 Amphetamines Ql (U) Positive [place] Benzodiazepines Ql (U) Negative [facility] Cocaine Ql (U) Negative [facility] Opiates Ql (U) Negative [place] [facility] Screen[facility] 2018 Amphetamines Ql (U) [facility] Comment on above: Performed By: #### I GN #### [facility] [address] [place] [address] THC Positive Normal [facility] Comment on above: Performed By: #### I GN #### [facility] [address] [place] [address] [facility] Screenon 2018 Barbiturates [facility] Comment on above: Performed By: #### I GN #### [facility] [address], [place] Benzodiazepines Ql (U) [facility] Comment on above: Performed By: #### I GN #### [facility] [address], [place] Cocaine Metabolites [facility] Comment on above: Performed By: #### I GN #### [facility] [address] [facility], [place] Comment [facility] Comment on above: Result Comment: The following [...] procedures. Performed By: #### I GN #### [facility] [address], [place] Ethanol [Mass/Vol] [facility] Comment on above: Performed By: #### I GN #### [facility] [address] [place], [place] Opiates Ql (U) [facility] Comment on above: Performed By: #### I GN #### [facility] [address] [place], [place] [facility] Comment on above: Performed By: #### I GN #### [facility] [address] [place] [facility] [facility] 2018 Amphetamines Ql (U) [facility] Comment on above: Performed By: #### I GN #### [facility] [address] [place] [facility] Comment on above: Performed By: #### I GN #### [facility] [address], [place] Amphetamines Ql (U) Positive [facility] Benzodiazepines Ql (U) Negative [facility] Cocaine Ql (U) Negative [facility] Opiates Ql (U) Negative [facility] Sodium [Moles/Vol] Positive [facility] Sodium [Moles/Vol] [facility] Comment on above: The following drugs or drug groups have been screened for by Immunoassay at the thresholds listed: Amphetamine class(1000 ng/mL), Barbiturates(300 ng/mL), Benzodiazepines(200 ng/mL),Cocaine(300 ng/mL), Ethanol(50 ng/dL),Opiates(300 ng/mL),Oxycodone(100 ng/mL), and THC(50 ng/mL) A more specific alternative method must be used to confirm preliminary positive results. NOTE: These results are for medical treatment only. Analysis performed using non-forensic procedures. Test Performed by [facility], [address] [place] [facility] Barbiturates [facility] Comment on above: Performed By: #### I GN #### [place] [address] [place], [place] Benzodiazepines Ql (U) Negative [facility] Comment on above: Performed By: #### I GN #### [place] [address] [place], [place] Cocaine Metabolites [facility] Comment on above: Performed By: #### I GN #### [place] [address] [place], [place] Comment [facility] Comment on above: Result Comment: The following [...] procedures. Performed By: #### I GN #### [facility] [address] [place] [address] Ethanol [Mass/Vol] Negative Normal [facility] Comment on above: Performed By: #### I GN #### [facility] [address] [place] [address] Opiates Ql (U) Negative Normal [facility] Comment on above: Performed By: #### I GN #### [facility] [address] [place] [address] Oxycodone Negative [facility] Comment on above: Performed By: #### I GN #### [facility] [address] [place] [address] Metabolic Panelon 05-07-2019 Sodium [Moles/Vol] Negative [facility], [place] Wet Prepon 06-07-2017 Wet Prep SOURCE: Vag (Few Whi te Blood Cells No clue cells No Yeast No Trichomonas vaginalis) Normal [facility] Chlam Amp RNAon 06-06-2017 Chlam Amp RNA Negative Normal Negative [facility] Comment on above: Result Comment: Holo [...] Performance characteristics for this assay on specific [id number]-[id number] sample types (female urine) have been validated by [facility]. Performance has not been evaluated for patients less than 14 years of age. Results should be interpreted in conjunction with other clinical information. GC AMP RNAon 06-06-2017 GC Amp RNA Negative Normal Negative [facility] RUMon 06-06-2017 Bilirubin (total) Negative Normal Negative [facility] Comment on above: Result Comment: Nega tive Blood Negative Normal Negative [facility] Comment on above: Result Comment: Nega tive Erythrocytes (RBC) 0-2 Normal 0-2 [facility] Comment on above: Result Comment: 0-2 Glucose mass conc Negative Normal Negative [facility] Comment on above: Result Comment: Nega tive Leukocyte Marcia Negative Normal Negative [facility] Comment on above: Result Comment: Nega tive Protein Trace Abnormal Negative [facility] Comment on above: Result Comment: Trac e Squamous Epith FEW Normal FEW [facility] Comment on above: Result Comment: FEW Ur Appearance SL Cloudy Normal Clear [facility] Comment on above: Result Comment: SL C loudy Urine Spec [place] >=1.030 Normal 1.001-1.03 [facility] Comment on above: Result Comment: >=1. 030 Urine, color Yellow Normal Yellow [facility] Comment on above: Result Comment: [place] ow Urine, ketones presence Negative Normal Negative [facility] Comment on above: Result Comment: Nega tive Urine, nitrite presence Negative Normal Negative [facility] Comment on above: Result Comment: Nega tive Urine, pH 6.0 [pH] Normal 4.8 - 8.0 [facility] Comment on above: Result Comment: 6.0 Urine, urobilinogen 0.2 {Sonia'U}/dL Normal <1.0 [facility] Comment on above: Result Comment: 0.2 WBC (Leukocytes) 2-5 Normal 0-5 [facility] Comment on above: Result Comment: 2-5 Auto Diffon 04-19-2017 Basophils/100 WBC Auto (Bld) 0.1 x10E9/L Normal 0.0-0.2 [facility] Basophils/100 WBC Auto (Bld) 0.5 % Normal 0.0-2.4 [facility] Eosinophils 0.3 10*3/uL Normal 0.0-0.5 [facility] Eosinophils/100 leukocytes 2.3 % Normal 0.7-6.5 [facility] Lymphocytes 5.5 10*3/uL High 1.1-3.5 [facility] Lymphocytes/100 leukocytes 44.4 % High 17.0-44.0 [facility] Monocytes 0.8 10*3/uL Normal 0.3-1.0 [facility] Monocytes/100 leukocytes 6.3 % Normal 5.3-12.5 [facility] Neutrophils 5.7 10*3/uL Normal 1.8-7.5 [facility] Neutrophils/100 WBC Auto (Bld) 46.5 % Normal 41.0-73.8 [facility] BMPon 04-19-2017 Anion gap 9.0 mmol/L Normal 5.0-19.0 [facility] Bun/CretRatio 16.4 Normal [facility] Calcium 9.9 mg/dL Normal 8.1-10.1 [facility] Chloride 105 mmol/L Normal 98-107 [facility] CO2 25 mmol/L Normal 22-32 [facility] Creatinine 0.55 mg/dL Low 0.60-1.30 [facility] Glucose mass conc 97 mg/dL Normal 70-100 [facility] Osmolality-Calc 276 mOsm/kg Normal [facility] Potassium molar conc 3.7 mmol/L Normal 3.4-5.1 [facility] Sodium 139 mmol/L Normal 136-144 [facility] Urea nitrogen 9 mg/dL Normal 8-26 [facility] RUMon 04-19-2017 Bilirubin (total) Negative Normal Negative [facility] Blood Negative Normal Negative [facility] [facility] Oxal Elana Few Abnormal [facility] Glucose mass conc Negative Normal Negative [facility] Leukocyte Marcia Negative Normal Negative [facility] Protein Negative Normal Negative [facility] Squamous Epith FEW Normal FEW [facility] Ur Appearance Clear Normal Clear [facility] Urine Spec [place] >=1.030 Normal 1.001-1.03 [facility] Urine, bacteria in sediment 1+ POS Abnormal Negative [facility] Urine, color Yellow Normal Yellow [facility] Urine, ketones presence Trace Abnormal Negative [facility] Urine, nitrite presence Negative Normal Negative [facility] Urine, pH 6.0 [pH] Normal 4.8 - 8.0 [facility] Urine, urobilinogen 0.2 {Sonia'U}/dL Normal <1.0 [facility] U Pregon 04-19-2017 HCG.beta subunit ( test) Ql (U) Negative Normal Negative [facility] Comment on above: Result Comment: [facility] testing performed by nursing. zCBCDon 04-19-2017 Erythrocyte distribution width Auto Ratio (RBC) 12.9 % Normal 11.4-16.0 [facility] Erythrocytes (RBC) 4.18 x10E12/L Normal 3.78-5.45 [facility] Hematocrit (HCT) 39.1 % Normal 34.7-44.9 [facility] Hemoglobin mass conc (Bld) 12.9 g/dL Normal 11.3-15.6 [facility] MCH 31.0 pg Normal 26.5-33.0 [facility] MCHC mass conc (RBC) 33.1 g/dL Normal 32.6-36.0 [facility] MCV 93.6 fL Normal 80.0-100.0 [facility] Mean Plt Vol 7.4 fL Normal 7.2-10.3 [facility] Platelets 325 10*3/uL Normal 144-400 [facility] WBC (Leukocytes) 12.3 10*3/uL High 3.5-11.5 [facility] IUD INSERTION [facility] Vital Signs Date Time Vital Sign Value Performing Clinician Facility 02-21-2025 15:59-0400 Body temperature 98.7 [degF] Dr. Flora Prieto DO Work Phone: 9(652)366-319794 [place] [address] 02-21-2025 15:59-0400 Diastolic blood pressure 84 mm[Hg] Dr. Flora Prieto DO Work Phone: 3(449)546-455494 [place] [address] 02-21-2025 15:59-0400 Heart rate 73 /min Dr. Flora Prieto DO Work Phone: 7(389)115-565694 [place] [address] 02-21-2025 15:59-0400 Respiratory rate 16 /min Dr. Flora Prieto DO Work Phone: 5(716)277-818094 [place] [address] 02-21-2025 15:59-0400 SaO2% (BldA) [Mass fraction] 100 % Dr. Flora Prieto DO Work Phone: [facility] 02-21-2025 15:59-0400 Systolic blood pressure 133 mm[Hg] Dr. Flora Prieto DO Work Phone: 2(245)173-588594 [place] [address] 02-21-2025 13:19-0400 Body height 162.[address] Flora Prieto DO Work Phone: 7(615)347-174094 [place] [address] 02-21-2025 13:19-0400 Body mass index (BMI) [Ratio] 28.1 kg/m2 Dr. Flora Prieto DO Work Phone: 6(051)578-602194 [place] [address] 02-21-2025 13:19-0400 Body weight 74.[address] Flora Prieto DO Work Phone: 4(635)790-696497 [place] [address] 02-14-2025 18:00-0400 Body temperature 97.9 [degF] Dr. Flora Prieto DO Work Phone: 5(438)360-121594 [place] [address] 02-14-2025 18:00-0400 Diastolic blood pressure 82 mm[Hg] Dr. Flora Prieto DO Work Phone: 0(479)994-408597 [place] [address] 02-14-2025 18:00-0400 Heart rate 75 /min Dr. Flora Prieto DO Work Phone: 1(687)651-669397 [place] [address] 02-14-2025 18:00-0400 Respiratory rate 16 /min Dr. Flora Prieto DO Work Phone: 9(858)148-820494 [place] [address] 02-14-2025 18:00-0400 SaO2% (BldA) [Mass fraction] 100 % Dr. Flora Prieto DO Work Phone: 8(993)678-648097 [place] [address] 02-14-2025 18:00-0400 Systolic blood pressure 126 mm[Hg] Dr. Flora Prieto DO Work Phone: 7(860)946-224697 [place] [address] 02-14-2025 15:55-0400 Inhaled oxygen flow rate 8 L/min Dr. Flora Prieto DO Work Phone: 8(728)060-714094 [place] [address] 02-14-2025 13:25-0400 Body height 162.[address] Flora Prieto DO Work Phone: 1(383)974-317697 [place] [address] 02-14-2025 13:25-0400 Body mass index (BMI) [Ratio] 27.6 kg/m2 Dr. Flora Prieto DO Work Phone: 9(866)336-280694 [place] [address] 02-14-2025 13:25-0400 Body weight [address] Flora Prieto DO Work Phone: [facility] 02-02-2025 13:06-0400 Body height 162.[address] Flora Prieto DO Work Phone: 1(846)457-065394 [place] [address] 02-02-2025 13:06-0400 Body mass index (BMI) [Ratio] 28.1 kg/m2 Dr. Flora Prieto DO Work Phone: 7(556)007-146294 [place] [address] 02-02-2025 13:06-0400 Body weight 74.[address] Flora Prieto DO Work Phone: 8(647)098-616994 [place] [address] 02-02-2025 13:06-0400 Diastolic blood pressure 79 mm[Hg] Dr. Flora Prieto DO Work Phone: 5(054)312-645894 [place] [address] 02-02-2025 13:06-0400 Heart rate 90 /min Dr. Flora Prieto DO Work Phone: 7(158)027-893494 [place] [address] 02-02-2025 13:06-0400 Respiratory rate 17 /min Dr. Flora Prieto DO Work Phone: 6(580)683-968694 [place] [address] 02-02-2025 13:06-0400 SaO2% (BldA) [Mass fraction] 98 % Dr. Flora Prieto DO Work Phone: [facility] 02-02-2025 13:06-0400 Systolic blood pressure 127 mm[Hg] Dr. Flora Prieto DO Work Phone: [facility] 01-15-2025 21:26-0400 Body temperature 98.7 [degF] Dr. Flora Prieto DO Work Phone: 9(116)086-766794 [place] [address] 01-15-2025 21:26-0400 Diastolic blood pressure 90 mm[Hg] Dr. Flora Priteo DO Work Phone: [facility] 01-15-2025 21:26-0400 Heart rate 75 /min Dr. Flora Prieto DO Work Phone: [facility] 01-15-2025 21:26-0400 Respiratory rate 16 /min Dr. Flora Prieto DO Work Phone: [facility] 01-15-2025 21:26-0400 SaO2% (BldA) [Mass fraction] 100 % Dr. Flora Prieto DO Work Phone: [facility] 01-15-2025 21:26-0400 Systolic blood pressure 131 mm[Hg] Dr. Flora Prieto DO Work Phone: [facility] 01-15-2025 17:48-0400 Body mass index (BMI) [Ratio] 28.8 kg/m2 Dr. Flora Prieto DO Work Phone: [facility] 01-15-2025 17:48-0400 Body weight 76.[address] Flora Prieto DO Work Phone: [facility] 12-31-2024 12:56-0400 Body mass index (BMI) [Ratio] 28.15 kg/m2 Hui Podlogar [employer] FIELD PIPELINE SUPERVISOR.PRESS WASHER Work Phone: [facility] 12-31-2024 12:56-0400 Body weight 74.39 kg Hui Podlogar OIL FIELD PIPELINE SUPERVISOR.PRESS WASHER Work Phone: [facility] 12-31-2024 12:56-0400 Diastolic blood pressure 78 mm[Hg] Hui Podlogar OIL FIELD PIPELINE SUPERVISOR.PRESS WASHER Work Phone: [facility] 12-31-2024 12:56-0400 Heart rate 100 /min Hui Podlogar OIL FIELD PIPELINE SUPERVISOR.PRESS WASHER Work Phone: [facility] 12-31-2024 12:56-0400 Respiratory rate 16 /min Hui Podlogar OIL FIELD PIPELINE SUPERVISOR.PRESS WASHER Work Phone: [facility] 12-31-2024 12:56-0400 SaO2% (BldA) [Mass fraction] 97 % Hui Podlogar OIL FIELD PIPELINE SUPERVISOR.PRESS WASHER Work Phone: [facility] 12-31-2024 12:56-0400 Systolic blood pressure 122 mm[Hg] Hui Podlogar OIL FIELD PIPELINE SUPERVISOR.PRESS WASHER Work Phone: [facility] 10-18-2024 10:07-0500 Body height 162.6 cm Temitope Bear OIL FIELD PIPELINE SUPERVISOR.CNM Work Phone: [facility] 10-18-2024 10:07-0500 Body mass index (BMI) [Ratio] 28.67 kg/m2 Temitope Bear OIL FIELD PIPELINE SUPERVISOR.CNM Work Phone: [facility] 10-18-2024 10:07-0500 Body weight 75.75 kg Temitope Bear OIL FIELD PIPELINE SUPERVISOR.CNM Work Phone: [facility] 10-18-2024 10:07-0500 Diastolic blood pressure 74 mm[Hg] Temitope Bear OIL FIELD PIPELINE SUPERVISOR.CNM Work Phone: [facility] 10-18-2024 10:07-0500 Systolic blood pressure 126 mm[Hg] Temitope Bear OIL FIELD PIPELINE SUPERVISOR.CNM Work Phone: [facility] 07-05-2024 12:58-0400 Body height 160.4 cm Hui Podlogar OIL FIELD PIPELINE SUPERVISOR.PRESS WASHER Work Phone: [facility] 07-05-2024 12:58-0400 Body mass index (BMI) [Ratio] 30.63 kg/m2 Hui Podlogar O[employer] FIELD PIPELINE SUPERVISOR.PRESS WASHER Work Phone: [facility] 07-05-2024 12:58-0400 Body weight 78.8 kg Hui Podlogar OIL FIELD PIPELINE SUPERVISOR.PRESS WASHER Work Phone: [facility] 07-05-2024 12:58-0400 Diastolic blood pressure 84 mm[Hg] Hui Podlogar OIL FIELD PIPELINE SUPERVISOR.PRESS WASHER Work Phone: [facility] 07-05-2024 12:58-0400 Heart rate 94 /min Hui Podlogar OIL FIELD PIPELINE SUPERVISOR.PRESS WASHER Work Phone: [facility] 07-05-2024 12:58-0400 Respiratory rate 16 /min Hui Podlogar OIL FIELD PIPELINE SUPERVISOR.PRESS WASHER Work Phone: [facility] 07-05-2024 12:58-0400 SaO2% (BldA) [Mass fraction] 98 % Hui Podlogar OIL FIELD PIPELINE SUPERVISOR.PRESS WASHER Work Phone: [facility] 07-05-2024 12:58-0400 Systolic blood pressure 136 mm[Hg] Hui Valdes APRN.PRESS WASHER Work Phone: [facility] 07-01-2023 10:36-0400 Body height 161.3 cm Shaun Carlin MD Work Phone: [facility] 07-01-2023 10:36-0400 Body temperature 98.4 [degF] Shaun Carlin MD Work Phone: [facility] 07-01-2023 10:36-0400 Body weight 87.09 kg Shaun Carlin MD Work Phone: [facility] 07-01-2023 10:36-0400 Diastolic blood pressure 86 mm[Hg] Shaun Carlin MD Work Phone: [facility] 07-01-2023 10:36-0400 Heart rate 64 /min Shaun Carlin MD Work Phone: [facility] 07-01-2023 10:36-0400 Systolic blood pressure 102 mm[Hg] Shaun Carlin MD Work Phone: [facility] 03-26-2023 13:59-0400 Body height 161.3 cm Esme Grace MD Work Phone: [facility] 03-26-2023 13:59-0400 Body weight 89.72 kg Esme Grace MD Work Phone: [facility] 03-26-2023 13:59-0400 Diastolic blood pressure 79 mm[Hg] Esme Grace MD Work Phone: [facility] 03-26-2023 13:59-0400 Heart rate 77 /min Esme Grace MD Work Phone: [facility] 03-26-2023 13:59-0400 Systolic blood pressure 123 mm[Hg] Esme Grace MD Work Phone: [facility] 01-17-2023 09:19-0400 Diastolic blood pressure 71 mm[Hg] Esme Grace MD Work Phone: [facility] 01-17-2023 09:19-0400 Heart rate 90 /min Esme Grace MD Work Phone: [facility] 01-17-2023 09:19-0400 Respiratory rate 17 /min Esme Grace MD Work Phone: [facility] 01-17-2023 09:19-0400 SaO2% (BldA) [Mass fraction] 97 % Esme Grace MD Work Phone: [facility] 01-17-2023 09:19-0400 Systolic blood pressure 123 mm[Hg] Esme Grace MD Work Phone: [facility] 01-17-2023 08:56-0400 Body temperature 97.2 [degF] Esme Grace MD Work Phone: [facility] 01-01-2023 14:20-0400 Body height 161.3 cm Esme Grace MD Work Phone: [facility] 01-01-2023 14:20-0400 Body weight 93.89 kg Esme Grace MD Work Phone: [facility] 01-01-2023 14:20-0400 Diastolic blood pressure 76 mm[Hg] Esme Grace MD Work Phone: [facility] 01-01-2023 14:20-0400 Heart rate 80 /min Esme Grace MD Work Phone: [facility] 01-01-2023 14:20-0400 Systolic blood pressure 118 mm[Hg] Esme Grace MD Work Phone: [facility] 12-10-2022 14:38-0400 Diastolic blood pressure 78 mm[Hg] Shaun Carlin MD Work Phone: [facility] 12-10-2022 14:38-0400 Systolic blood pressure 130 mm[Hg] Shaun Carlin MD Work Phone: [facility] 12-10-2022 14:28-0400 Body height 162.6 cm Shaun Carlin MD Work Phone: [facility] 12-10-2022 14:28-0400 Body temperature 97.3 [degF] Shaun Carlin MD Work Phone: [facility] 12-10-2022 14:28-0400 Body weight 95.25 kg Shaun Carlin MD Work Phone: [facility] 12-10-2022 14:28-0400 Heart rate 88 /min Shuan Carlin MD Work Phone: [facility] 12-10-2022 09:45-0400 Body height 162.6 cm Alysha Speedy OIL FIELD PIPELINE SUPERVISOR.PRESS WASHER Work Phone: [facility] 12-10-2022 09:45-0400 Body weight 95.25 kg Alysha Speedy OIL FIELD PIPELINE SUPERVISOR.PRESS WASHER Work Phone: [facility] 12-10-2022 09:45-0400 Diastolic blood pressure 80 mm[Hg] Alysha Speedy OIL FIELD PIPELINE SUPERVISOR.PRESS WASHER Work Phone: [facility] 12-10-2022 09:45-0400 Systolic blood pressure 114 mm[Hg] Alysha Speedy OIL FIELD PIPELINE SUPERVISOR.PRESS WASHER Work Phone: [facility] 11-01-2022 13:40-0500 Body height 162.6 cm Alysha Sepedy OIL FIELD PIPELINE SUPERVISOR.PRESS WASHER Work Phone: [facility] 11-01-2022 13:40-0500 Body weight 97.43 kg Alysha Speedy OIL FIELD PIPELINE SUPERVISOR.PRESS WASHER Work Phone: [facility] 11-01-2022 13:40-0500 Diastolic blood pressure 90 mm[Hg] Alysha Speedy OIL FIELD PIPELINE SUPERVISOR.PRESS WASHER Work Phone: [facility] 11-01-2022 13:40-0500 Systolic blood pressure 152 mm[Hg] Alysha Speedy OIL FIELD PIPELINE SUPERVISOR.PRESS WASHER Work Phone: [facility] 10-23-2022 15:05-0500 Body height 162.6 cm Tricia Rangel MD Work Phone: [facility] 10-23-2022 15:05-0500 Body weight 96.62 kg Tricia Rangel MD Work Phone: [facility] 10-23-2022 15:05-0500 Diastolic blood pressure 82 mm[Hg] Tricia Rangel MD Work Phone: [facility] 10-23-2022 15:05-0500 Systolic blood pressure 141 mm[Hg] Tricia Rangel MD Work Phone: [facility] 10-08-2022 10:52-0500 Body height 162.6 cm Shaun Carlin MD Work Phone: [facility] 10-08-2022 10:52-0500 Body temperature 97.5 [degF] Shaun Carlin MD Work Phone: [facility] 10-08-2022 10:52-0500 Body weight 97.98 kg Shaun Carlin MD Work Phone: [facility] 10-08-2022 10:52-0500 Diastolic blood pressure 88 mm[Hg] Shaun Carlin MD Work Phone: [facility] 10-08-2022 10:52-0500 Heart rate 80 /min Shaun Carlin MD Work Phone: [facility] 10-08-2022 10:52-0500 Systolic blood pressure 136 mm[Hg] Shaun Carlin MD Work Phone: [facility] 09-04-2022 14:42-0500 Body height 162.6 cm Tricia Rangel MD Work Phone: [facility] 09-04-2022 14:42-0500 Body weight 104.78 kg Tricia Rangel MD Work Phone: [facility] 09-04-2022 14:42-0500 Diastolic blood pressure 75 mm[Hg] Tricia Rangel MD Work Phone: [facility] 09-04-2022 14:42-0500 Systolic blood pressure 120 mm[Hg] Tricia Rangel MD Work Phone: [facility] 08-30-2022 14:35-0500 Body height 162.6 cm Flora Browning MD Work Phone: [facility] 08-30-2022 14:35-0500 Body weight 104.42 kg Flora Browning MD Work Phone: [facility] 08-30-2022 14:35-0500 Diastolic blood pressure 76 mm[Hg] Flora Browning MD Work Phone: [facility] 08-30-2022 14:35-0500 Systolic blood pressure 133 mm[Hg] Flora Browning MD Work Phone: [facility] 08-23-2022 14:00-0500 Body height 162.6 cm Flora Browning MD Work Phone: [facility] 08-23-2022 14:00-0500 Body weight 104.33 kg Flora Browning MD Work Phone: [facility] 08-23-2022 14:00-0500 Diastolic blood pressure 89 mm[Hg] Flora Browning MD Work Phone: [facility] 08-23-2022 14:00-0500 Systolic blood pressure 128 mm[Hg] Flora Browning MD Work Phone: [facility] 08-15-2022 14:33-0500 Body height 162.6 cm Flora Browning MD Work Phone: [facility] 08-15-2022 14:33-0500 Body weight 104.01 kg Flora Browning MD Work Phone: [facility] 08-15-2022 14:33-0500 Diastolic blood pressure 72 mm[Hg] Flora Browning MD Work Phone: [facility] 08-15-2022 14:33-0500 Systolic blood pressure 122 mm[Hg] Flora Browning MD Work Phone: [facility] 08-06-2022 13:12-0500 Body height 162.6 cm Yael Mahmood APRN.CNM Work Phone: [facility] 08-06-2022 13:12-0500 Body weight 105.33 kg Yael Mahmood OIL FIELD PIPELINE SUPERVISOR.CNM Work Phone: [facility] 08-06-2022 13:12-0500 Diastolic blood pressure 71 mm[Hg] Yael Mahmood OIL FIELD PIPELINE SUPERVISOR.CNM Work Phone: [facility] 08-06-2022 13:12-0500 Systolic blood pressure 113 mm[Hg] Yael Mahmood OIL FIELD PIPELINE SUPERVISOR.CNM Work Phone: [facility] 08-02-2022 13:26-0500 Body height 162.6 cm Flora Browning MD Work Phone: [facility] 08-02-2022 13:26-0500 Body weight 105.46 kg Flora Browning MD Work Phone: [facility] 08-02-2022 13:26-0500 Diastolic blood pressure 77 mm[Hg] Flora Browning MD Work Phone: [facility] 08-02-2022 13:26-0500 Systolic blood pressure 123 mm[Hg] Flora Browning MD Work Phone: [facility] 07-19-2022 11:15-0400 Body height 162.6 cm Honey Surace PA-C Work Phone: [facility] 07-19-2022 11:15-0400 Body weight 105.69 kg Honey Surace PA-C Work Phone: [facility] 07-19-2022 11:15-0400 Diastolic blood pressure 71 mm[Hg] Honey Surace PA-C Work Phone: [facility] 07-19-2022 11:15-0400 Systolic blood pressure 113 mm[Hg] Honey Surace PA-C Work Phone: [facility] 07-05-2022 10:20-0400 Body height 162.6 cm Honey Surace PA-C Work Phone: [facility] 07-05-2022 10:20-0400 Body weight 104.78 kg Honey Surace PA-C Work Phone: [facility] 07-05-2022 10:20-0400 Diastolic blood pressure 84 mm[Hg] Honey Surace PA-C Work Phone: [facility] 07-05-2022 10:20-0400 Systolic blood pressure 125 mm[Hg] Honey Surace PA-C Work Phone: [facility] 06-21-2022 13:15-0400 Body height 162.6 cm Honey Surace PA-C Work Phone: [facility] 06-21-2022 13:15-0400 Body weight 104.64 kg Honey Surace PA-C Work Phone: [facility] 06-21-2022 13:15-0400 Diastolic blood pressure 69 mm[Hg] Honey Surace PA-C Work Phone: [facility] 06-21-2022 13:15-0400 Systolic blood pressure 106 mm[Hg] Honey Surace PA-C Work Phone: [facility] 05-10-2022 08:37-0400 Body height 162.6 cm Honey Surace PA-C Work Phone: [facility] 05-10-2022 08:37-0400 Body weight 102.69 kg Honey Surace PA-C Work Phone: [facility] 05-10-2022 08:37-0400 Diastolic blood pressure 71 mm[Hg] Honey Surace PA-C Work Phone: [facility] 05-10-2022 08:37-0400 Systolic blood pressure 107 mm[Hg] Honey Surace PA-C Work Phone: [facility] 05-06-2022 13:44-0400 Body weight 103.06 kg Shaun Carlin MD Work Phone: [facility] 05-06-2022 13:44-0400 Diastolic blood pressure 72 mm[Hg] Shaun Carlin MD Work Phone: [facility] 05-06-2022 13:44-0400 Heart rate 95 /min Shaun Carlin MD Work Phone: [facility] 05-06-2022 13:44-0400 SaO2% (BldA) [Mass fraction] 98 % Shaun Carlin MD Work Phone: [facility] 05-06-2022 13:44-0400 Systolic blood pressure 120 mm[Hg] Shaun Carlin MD Work Phone: [facility] 04-05-2022 10:13-0400 Body height 162.6 cm Shaun Carlin MD Work Phone: [facility] 04-05-2022 10:13-0400 Body temperature 98.8 [degF] Shaun Carlin MD Work Phone: [facility] 04-05-2022 10:13-0400 Body weight 102.06 kg Shaun Carlin MD Work Phone: [facility] 04-05-2022 10:13-0400 Diastolic blood pressure 82 mm[Hg] Shaun Carlin MD Work Phone: [facility] 04-05-2022 10:13-0400 Heart rate 100 /min Shaun Carlin MD Work Phone: [facility] 04-05-2022 10:13-0400 Systolic blood pressure 110 mm[Hg] Shaun Carlin MD Work Phone: [facility] 04-05-2022 08:47-0400 Body height 162.6 cm Honey Surace PA-C Work Phone: [facility] 04-05-2022 08:47-0400 Body weight 102.06 kg Honey Surace PA-C Work Phone: [facility] 04-05-2022 08:47-0400 Diastolic blood pressure 71 mm[Hg] Honey Surace PA-C Work Phone: [facility] 04-05-2022 08:47-0400 Systolic blood pressure 116 mm[Hg] Honey Surace PA-C Work Phone: [facility] 02-14-2022 14:32-0400 Body height 162.6 cm Flora Browning MD Work Phone: [facility] 02-14-2022 14:32-0400 Body weight 100.83 kg Flroa Browning MD Work Phone: [facility] 02-14-2022 14:32-0400 Diastolic blood pressure 87 mm[Hg] Flora Browning MD Work Phone: [facility] 02-14-2022 14:32-0400 Systolic blood pressure 127 mm[Hg] Flora Browning MD Work Phone: [facility] 02-08-2022 10:03-0400 Body height 162.6 cm Shaun Carlin MD Work Phone: [facility] 02-08-2022 10:03-0400 Body temperature 97.9 [degF] Shaun Carlin MD Work Phone: [facility] 02-08-2022 10:03-0400 Body weight 101.15 kg Shaun Carlin MD Work Phone: [facility] 02-08-2022 10:03-0400 Diastolic blood pressure 76 mm[Hg] Shaun Carlin MD Work Phone: [facility] 02-08-2022 10:03-0400 Heart rate 92 /min Shaun Carlin MD Work Phone: [facility] 02-08-2022 10:03-0400 Systolic blood pressure 114 mm[Hg] Shaun Carlin MD Work Phone: [facility] 01-23-2022 10:07-0400 Body height 160.02 cm Shaun Carlin Work Phone: [facility] Work Phone: 01-23-2022 10:07-0400 Body mass index (BMI) [Ratio] 39.72 kg/m2 Shaun Carlin Work Phone: [facility] Work Phone: 01-23-2022 10:07-0400 Body surface area Derived from formula 2.03 m2 Shaun Carlin Work Phone: [facility] Work Phone: 01-23-2022 10:07-0400 Body temperature 98.6 [degF] Shaun Solorzanol Work Phone: [facility] Work Phone: 01-23-2022 10:07-0400 Body weight 101.72 kg Shaun Solorzanol Work Phone: [facility] Work Phone: 01-23-2022 10:07-0400 Diastolic blood pressure 74 mm[Hg] Shaun Solorzanol Work Phone: [facility] Work Phone: 01-23-2022 10:07-0400 Heart rate 100 /min Shaun Solorzanol Work Phone: [facility] Work Phone: 01-23-2022 10:07-0400 SaO2% (BldA) [Mass fraction] 96 % Shaun Solorzanol Work Phone: [facility] Work Phone: 01-23-2022 10:07-0400 Systolic blood pressure 114 mm[Hg] Shaun Solorzanol Work Phone: [facility] Work Phone: 01-18-2022 13:52-0400 Body height 162.6 cm Rolan Biats DO Work Phone: [facility] 01-18-2022 13:52-0400 Body weight 101.61 kg Rolan Biats DO Work Phone: [facility] 01-18-2022 13:52-0400 Diastolic blood pressure 83 mm[Hg] Rolan Biats DO Work Phone: [facility] 01-18-2022 13:52-0400 Systolic blood pressure 124 mm[Hg] Rolan Biats DO Work Phone: [facility] 01-08-2022 16:24-0400 Body height 162.6 cm Shaun Carlin MD Work Phone: [facility] 01-08-2022 16:24-0400 Body temperature 98.91 [degF] Shaun Carlin MD Work Phone: [facility] 01-08-2022 16:24-0400 Body weight 101.61 kg Shaun Carlin MD Work Phone: [facility] 01-08-2022 16:24-0400 Diastolic blood pressure 92 mm[Hg] Shaun Carlin MD Work Phone: [facility] 01-08-2022 16:24-0400 Heart rate 96 /min Shaun Carlin MD Work Phone: [facility] 01-08-2022 16:24-0400 Systolic blood pressure 136 mm[Hg] Shaun Carlin MD Work Phone: [facility] 06-19-2021 00:10-0400 Body height 162.6 cm Rolan [...] Phone: 12-24-2020 01:29-0400 Body Temperature 98.91 [degF] [facility] Work Phone: 12-24-2020 01:29-0400 BP Diastolic 82 mm[Hg] [facility] Work Phone: 12-24-2020 01:29-0400 BP Systolic 117 mm[Hg] [facility] Work Phone: 12-24-2020 01:29-0400 Pulse (Heart Rate) 81 /min [facility] Work Phone: 12-24-2020 01:29-0400 Pulse Oximetry 98 % [facility] Work Phone: 12-24-2020 01:29-0400 Respiratory Rate 16 /min [facility] Work Phone: 12-23-2020 21:40-0400 BMI (Body Mass Index) 36.05 kg/m2 [facility] Work Phone: 12-23-2020 21:40-0400 Body weight 95.25 kg [facility] Work Phone: 12-23-2020 21:39-0400 Height 162.6 cm [facility] Work Phone: 08-16-2020 16:43-0500 BMI (Body Mass Index) 34.16 kg/m2 Desiree Casarez [facility] Work Phone: 08-16-2020 16:43-0500 Body Temperature 97.9 [degF] Desiree Casarez [facility] Work Phone: Comment on above: Method: Temporal 08-16-2020 16:43-0500 Body weight 90.27 kg Desiree Casarez [facility] Work Phone: 08-16-2020 16:43-0500 BP Diastolic 82 mm[Hg] Desiree Casarez [facility] Work Phone: Comment on above: Location: LUE; Position: Sitting 08-16-2020 16:43-0500 BP Systolic 124 mm[Hg] Desiree Casarez [facility] Work Phone: Comment on above: Location: LUE; Position: Sitting 08-16-2020 16:43-0500 BSA (Body Surface Area) 1.95 m2 Desiree Casarez [facility] Work Phone: 08-16-2020 16:43-0500 Height 162.56 cm Desiree Casarez [facility] Work Phone: 08-16-2020 16:43-0500 Pulse (Heart Rate) 85 /min Desiree Casarez [facility] Work Phone: 08-16-2020 16:43-0500 Pulse Oximetry 98 % Desiree Casarez [facility] Work Phone: Comment on above: Source: 08-16-2020 16:43-0500 Respiratory Rate 18 /min Desiree Casarez [facility] Work Phone: 06-04-2019 06:07-0400 Body Temperature 98.01 [degF] Christina Juan Carlso [employer] [facility], [place] 06-04-2019 06:07-0400 BP Diastolic 82 mm[Hg] Christina [facility] [place] , [place] 06-04-2019 06:07-0400 BP Systolic 114 mm[Hg] Christina [facility] , [place] 06-04-2019 06:07-0400 Pulse (Heart Rate) 90 /min Christina [facility], [place] 06-04-2019 06:07-0400 Pulse Oximetry 96 % Christina Rangel [facility] , [place] 06-04-2019 06:07-0400 Respiratory Rate 18 /min Christina Rangel [facility], [place] 06-02-2019 17:08-0400 BMI (Body Mass Index) 26.61 kg/m2 Christina Rangel [facility], [place] 06-02-2019 17:08-0400 Body weight 70.31 kg Chrisitna Rangel [facility] , [place] 06-02-2019 17:08-0400 Height 162.6 cm Christina Rangel [facility] , [place] 05-29-2019 09:56-0400 BMI (Body Mass Index) 26.61 kg/m2 Mio [facility], [place] 05-29-2019 09:56-0400 Body Temperature 97.7 [degF] Mio [facility], [place] 05-29-2019 09:56-0400 Body weight 70.31 kg Mio [facility] , [place] 05-29-2019 09:56-0400 BP Diastolic 96 mm[Hg] [facility] [place] 05-29-2019 09:56-0400 BP Systolic 145 mm[Hg] [facility] [place] 05-29-2019 09:56-0400 Height 162.6 cm Mio [facility] , [place] 05-29-2019 09:56-0400 Pulse (Heart Rate) 98 /min Mio [facility], [place] 05-29-2019 09:56-0400 Pulse Oximetry 100 % [facility] , 05-29-2019 09:56-0400 Respiratory Rate 16 /[facility] 05-29-2019 05:54-0400 BP Diastolic 98 mm[Hg] [facility] 05-29-2019 05:54-0400 BP Systolic 142 mm[Hg] [facility] , [place] 05-29-2019 05:54-0400 Pulse (Heart Rate) 89 /min [facility] [place] 05-29-2019 05:54-0400 Pulse Oximetry 100 % Ese Ha [facility] , [place] 05-29-2019 05:54-0400 Respiratory Rate 16 /min Ese Ha [facility], [place] 05-28-2019 19:04-0400 BMI (Body Mass Index) 25.06 kg/m2 Ese Ha [facility], [place] 05-28-2019 19:04-0400 Body Temperature 98.2 [degF] Ese Ha [facility], [place] 05-28-2019 19:04-0400 Body weight 72.58 kg [facility] , [place] 05-28-2019 17:30-0400 Height 170.2 cm Ese [facility] , [place] Encounters Encounter Date Encounter Type Care Provider Facility Start: 02-21-2025 End: 02-21-2025 Emergency department patient visit Dr. Flora Prieto DO Work Phone: -Emergency Department Work Phone: Start: 02-20-2025 Encounter for other preprocedural examination Desean Rodriguez [facility] Start: 02-14-2025 ambulatory Desean Rodriguez [place] Start: 02-14-2025 Non-patient / Non-visit Dr. Sofía MARADIAGA [facility] Start: 02-14-2025 End: 02-14-2025 Admission to same day surgery center Dr. Desean Rodriguez MD [facility] Start: 02-14-2025 End: 02-14-[address] Flora Prieto DO Work Phone: [facility] Work Phone: Start: 02-02-2025 End: 02-02-[address] Desean Rodriguez MD -[facility] Work Phone: Start: 02-02-2025 End: 02-02-[address] Flora Prieto DO Work Phone: [facility] Work Phone: Start: 01-15-2025 End: [...] Start: 12-31-2024 End: 12-31-2024 ambulatory HUI ORTIZLOGYASHIRA Facility:[facility] Start: 12-28-2024 End: 12-29-2024 Telephone encounter Temitope Bear APRN.CNM Work Phone: OB/Gynecology Comment on above: Orders Start: 10-26-2024 End: 12-26-2024 Follow-up encounter Temitope Bear APRN.CNM Work Phone: OB/Gynecology Start: 10-18-2024 End: 10-18-2024 ambulatory TEMITOPE BEAR Facility:[facility] Start: 10-18-2024 End: 10-18-2024 Patient encounter procedure [...] encounter status Temitope Bear APRN.CNM Work Phone: [facility] Start: 10-13-2024 End: 10-14-2024 MC Get Medical Advice Hui Valdes APRN.CNP Work Phone: Family [facility] [place] Comment on above: Refill Refill Request Start: 08-13-2024 End: 08-13-2024 Telephone encounter No Pcp JAZ [facility] [place] Start: 07-27-2024 End: 07-27-2024 ambulatory Hui Podlogar [employer]IL FI[employer] PIPELINE SUPERVISOR.PRESS WASHER Work Phone: [facility] [place] Comment on above: Hydrocortisone Start: 07-27-2024 End: 07-27-2024 E-mail encounter from caregiver Hui Ortizjen SEBASTIAN.PRESS WASHER Work Phone: [facility] [place] Start: 07-26-2024 End: 07-27-2024 ambulatory Hui Podlogar OIL FIELD PIPELINE SUPERVISOR.PRESS WASHER Work Phone: [facility] [place] Comment on above: Medication Start: 07-08-2024 End: 07-12-2024 ambulatory Hui Podlogar OIL FIELD PIPELINE SUPERVISOR.PRESS WASHER Work Phone: [facility] [place] Comment on above: Depression Start: 07-08-2024 Encounter for genera l adult medical examination without abnormal findings HUI PODLOGYASHIRA [facility] Start: 07-05-2024 End: 07-05-2024 Patient encounter procedure Hui Valdes APRN.PRESS WASHER Work Phone: [facility] [place] Comment on above: Encounter for medica [...] End: 07-05-2024 Patient encounter status Hui Valdes APRN.PRESS WASHER Work Phone: [facility] Start: 07-05-2024 End: 07-05-2024 ambulatory HUI PODLOGAR Facility:[facility] Start: 12-30-2023 ambulatory Shaun Sanchez Work Phone: [facility] Comment on above: Yeast infection Start: 11-07-2023 End: 11-07-2023 ambulatory SHAUN CARLIN Facility:[facility] Start: 07-01-2023 End: 07-01-2023 Patient encounter procedure Shaun Carlin MD Work Phone: [facility] Comment on above: Routine physical exa mination (Primary Dx); Migraine without aura and without status migrainosus, not intractable; Hyperlipidemia, mixed; Obesity, Class I, BMI 30-34.9; Ventral hernia without obstruction or gangrene; Onychomycosis; External hemorrhoid; Encounter for immunization Start: 07-01-2023 End: 07-01-2023 Physical examination Shaun Carlin MD Work Phone: [facility] Work Phone: Start: 03-26-2023 End: 03-26-2023 ambulatory [facility] Facility:[facility] Start: 03-26-2023 End: 03-26-2023 Patient encounter procedure Esme Grace MD Work Phone: [facility] Comment on above: Gastroesophageal ref lux disease without esophagitis (Primary Dx); Class 1 obesity with body mass index (BMI) of 34.0 to 34.9 in adult, unspecified obesity type, unspecified whether serious comorbidity present; Ventral hernia without obstruction or gangrene Start: 01-17-2023 Encounter for other preprocedural examination ESME GRACE [facility] Start: 01-17-2023 ambulatory ESME GRAEC Facility: [facility] Start: 01-17-2023 End: 07-01-2023 Patient encounter status Esme Grace MD Work Phone: [facility] Start: 01-17-2023 End: 01-17-2023 Subsequent hospital visit by physician Esme Grace MD Work Phone: [facility] Comment on above: Gastroesophageal ref lux disease, unspecified whether esophagitis present [K21.9] Start: 01-01-2023 End: 01-01-2023 [facility] SHAUN [facility] Facility:[facility] Start: 01-01-2023 End: 01-01-2023 Patient encounter procedure Esme Grace MD Work Phone: [facility] Comment on above: Ventral hernia witho ut obstruction or gangrene (Primary Dx); Class 2 severe obesity with serious comorbidity and body mass index (BMI) of 36.0 to 36.9 in adult, unspecified obesity type (HCC); Gastroesophageal reflux disease, unspecified whether esophagitis present; Hypertension, unspecified type Start: 01-01-2023 Telephone encounter Esme parmar MD Work Phone: [facility] Comment on above: Appointment (EGD) Start: 12-25-[address] Shaun Barger ty:[id number] Start: 12-10-2022 End: 12-10-2022 Patient encounter procedure Shaun Carlin MD Work Phone: Family Medicine Comment on above: Hypertension, essent ial (Primary Dx); History of gestational diabetes; Obesity, Class II, BMI 35-39.9; GERD without esophagitis; PUD (peptic ulcer disease); External hemorrhoid Start: 12-10-2022 End: 12-10-2022 Patient encounter procedure Alysha Ruff APRN.PRESS WASHER Work Phone: [facility] Obstetrics & Gynecology Comment on above: Encounter for routin e checking of intrauterine contraceptive device (IUD) (Primary Dx) Start: 11-07-2022 Patient encounter procedure [facility] Provider [facility] Department Start: 11-01-2022 End: 11-01-2022 Patient encounter procedure Alysha Ruff APRN.PRESS WASHER Work Phone: [facility] Obstetrics & Gynecology Comment on above: Encounter for IUD in sertion (Primary Dx); Routine screening for STI (sexually transmitted infection) Start: 10-23-2022 End: 10-23-2022 Patient encounter procedure Tricia Rangel MD Work Phone: [facility] Obstetrics & Gynecology Comment on above: care and examination (Primary Dx); examination or test, unconfirmed Start: 10-22-2022 Telephone encounter [facility] Provider [facility] Comment on above: Returning Patient's [...] Migraine Start: 09-04-2022 End: 09-04-2022 ambulatory [place]st [place] Work Phone: [facility] Obstetrics & Gynecology Comment on above: Nst (Non Stress Test ) Start: 09-04-2022 End: 09-04-2022 Patient encounter procedure Nst [employer]rad[employer] [facility] [place] Work Phone: [place] [facility] Comment on above: 37 weeks gestation o f (Primary Dx); Preexisting hypertension complicating , antepartum; Diet controlled gestational diabetes mellitus (GDM) in second trimester; 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ng , antepartum, unspecified trimester; Group B Streptococcus carrier, antepartum Start: 08-30-2022 End: 08-30-2022 Patient encounter procedure Flora Browning MD Work Phone: [facility] Obstetrics & Gynecology Comment on above: Preexisting hyperten ling complicating , antepartum (Primary Dx); 36 weeks gestation of ; Gestational diabetes mellitus, class A1; 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ng , antepartum, unspecified trimester Start: 08-30-2022 End: 08-30-2022 Patient encounter procedure Ultrasound Cradle Slide Maker [facility] [employer] Work Phone: [facility] Obstetrics & Gynecology Comment on above: AMA (advanced matern al age) multigravida 35+, third trimester; Obesity complicating , third trimester Start: 08-23-2022 End: 08-23-2022 ambulatory [place]st [place] Work Phone: [facility] Obstetrics & Gynecology Comment on above: Nst (Non Stress Test ) Start: 08-23-2022 End: 08-23-2022 Patient encounter procedure Nst Cradle Slide Maker [facility] [place] Work Phone: [facility] [employer] [facility] Comment on above: Preexisting hyperten ling complicating , antepartum (Primary Dx); 35 weeks gestation of ; Gestational diabetes mellitus, class A1 Start: 08-22-2022 Refill Honey Surac e PA-C Work Phone: [facility] Obstetrics & Gynecology Comment on above: Refill Request Start: 08-16-2022 Refill Honey Surac e PA-C Work Phone: [facility] Obstetrics & Gynecology Comment on above: Refill Request Start: 08-15-2022 End: 08-15-2022 ambulatory [place]st [place] Work Phone: [facility] Obstetrics & Gynecology Comment on above: Nst (Non Stress Test ) Start: 08-15-2022 End: 08-15-2022 Patient encounter procedure [facility]: [facility] [place] Comment on above: Preexisting hyperten ling complicating , antepartum (Primary Dx); 34 weeks gestation of ; Gestational diabetes mellitus, class A1 Start: 08-06-2022 End: 08-06-2022 ambulatory [place]st [place] Work Phone: [facility] Obstetrics & Gynecology Comment on above: Nst (Non Stress Test ) Start: 08-06-2022 End: 08-06-2022 Patient encounter procedure Nst Cradle Slide Maker [facility] [employer] Work Phone: [facility] [place] Comment on above: AMA (advanced matern al age) multigravida 35+, third trimester (Primary Dx); Obesity complicating , third trimester; Gestational diabetes mellitus, class A1; Preexisting hypertension complicating , antepartum; 33 weeks gestation of ; Non-stress test reactive Start: 08-02-2022 End: 08-02-2022 ambulatory [place]st [place] Work Phone: [facility] Obstetrics & Gynecology Comment on above: Nst (Non Stress Test ) Start: 08-02-2022 End: 08-02-2022 Patient encounter procedure Nst Cradle Slide Maker [facility] [employer] Work Phone: [facility] [place] Comment on above: Preexisting hyperten ling complicating , antepartum (Primary Dx); 32 weeks gestation of ; GDM (gestational diabetes mellitus), class A1 Start: 07-31-2022 Refill Honey Surac e PA-C Work Phone: [facility] Obstetrics & Gynecology Comment on above: Refill Request Start: 07-19-2022 End: 07-19-2022 Patient encounter procedure Honey [employer] PA-C Work Phone: [facility] Obstetrics & Gynecology Comment on above: Gestational diabetes mellitus, class A1 (Primary Dx); Obesity complicating , third trimester; AMA (advanced maternal age) multigravida 35+, third trimester; Preexisting hypertension complicating , antepartum; 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ng , antepartum, unspecified trimester; 30 weeks gestation of Gestational diabetes mellitus, class A1 Start: 07-18-2022 Refill Honey Surac e PA-C Work Phone: [facility] Obstetrics & Gynecology Comment on above: Refill Request Start: 07-05-2022 End: 07-05-2022 Patient encounter procedure Honey Surace PA-C Work Phone: [facility] Obstetrics & Gynecology Comment on above: Gestational diabetes mellitus, class A1 (Primary Dx); 28 weeks gestation of ; Need for [id number] (Tdap) vaccine; Obesity complicating , third trimester; Constipation, unspecified constipation type; 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ng , antepartum, unspecified trimester; AMA (advanced maternal age) multigravida 35+, third trimester; Preexisting hypertension complicating , antepartum Start: 07-05-2022 End: 07-05-[address] Work Phone: [facility] Diabetes [facility] Comment on above: Diet controlled gest ational diabetes mellitus (GDM) in second trimester (Primary Dx) GDM (gestational mitch betes mellitus), class A1; Diet controlled gestational diabetes mellitus (GDM) in second trimester Start: 07-05-2022 End: 07-05-2022 Telemedicine consultation with patient Nurse Diabetes [facility] Start: 06-28-2022 Refill Honey Surac e PA-C Work Phone: [facility] Obstetrics & Gynecology Comment on above: Refill Request Start: 06-28-2022 Telephone encounter Honey S urace PA-C Work Phone: [facility] Obstetrics & Gynecology Comment on above: Results Start: 06-25-2022 Telephone encounter Honey Yelitza urace PA-C Work Phone: [facility] Obstetrics & Gynecology Comment on above: Results Start: 06-21-2022 End: 06-21-2022 Patient encounter procedure Honey Surace PA-C Work Phone: [facility] Obstetrics & Gynecology Comment on above: AMA (advanced matern al age) multigravida 35+, second trimester (Primary Dx); 26 weeks gestation of ; 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ng , antepartum, unspecified trimester; Obesity complicating , first trimester; Preexisting hypertension complicating , antepartum; History of drug use Start: 06-19-2022 Refill Honey Surac e PA-C Work Phone: [facility] Obstetrics & Gynecology Comment on above: Refill Request Start: 06-10-2022 Refill Ольга montanez APRN.CNP Work Phone: [facility] Obstetrics & Gynecology Comment on above: Refill Request Start: 05-19-2022 Refill Honey Surac e PA-C Work Phone: [facility] Obstetrics & Gynecology Comment on above: Refill Request Start: 05-19-2022 Refill Honey Surac e PA-C Work Phone: [facility] Obstetrics & Gynecology Comment on above: Refill Request Start: 05-10-2022 End: 05-10-2022 Patient encounter procedure Honey Surace PA-C Work Phone: [facility] Obstetrics & Gynecology Comment on above: Preexisting hyperten ling complicating , antepartum (Primary Dx); AMA (advanced maternal age) multigravida 35+, second trimester; Obesity complicating , second trimester; Headache in , second trimester; 20 weeks gestation of Start: 05-07-2022 End: 05-07-2022 Patient encounter procedure Us Rm2 Cradle Slide Maker [employer] Work Phone: [facility] Maternal Medicine Comment on above: Obesity complicating , second trimester (Primary Dx); Encounter for anatomic survey; 20 weeks gestation of Start: 05-06-2022 End: 05-06-2022 Patient encounter procedure Shaun Carlin MD Work Phone: Family Medicine Comment on above: PUD (peptic ulcer di sease) (Primary Dx); GERD without esophagitis; Preexisting hypertension complicating , antepartum Start: 05-02-2022 Refill Ольга montanez APRN.PRESS WASHER Work Phone: [facility] Obstetrics & Gynecology Comment on above: Refill Request Start: 04-28-2022 ambulatory Shaun Sanchez Work Phone: Family Medicine Comment on above: Ulcers Start: 04-24-2022 Refill Honey Florecita e PA-C Work Phone: [facility] Obstetrics & Gynecology Comment on above: [...] encounter procedure Honey Surreynold PA-C Work Phone: [facility] Obstetrics & Gynecology Comment on above: [...] Start: 03-22-2022 Refill Ольга Leslie Connellyutt s OIL FIELD PIPELINE SUPERVISOR.PRESS WASHER Work Phone: [facility] Obstetrics & Gynecology Comment on above: Refill Request Start: 03-11-2022 Refill Flora Jaffe MD Work Phone: [facility] Obstetrics & Gynecology Comment on above: Refill Request Start: 02-20-2022 ambulatory Ольга L Klutt s OIL FIELD PIPELINE SUPERVISOR.PRESS WASHER Work Phone: [facility] Obstetrics & Gynecology Comment on above: Medication Start: 02-14-2022 End: 02-14-2022 Patient encounter procedure Flora Browning MD Work Phone: [facility] Obstetrics & Gynecology Comment on above: [...] 15 minutes Shaun Carlin Work Phone: [facility] Work Phone: Start: 01-21-2022 Telephone encounter Rolan grigsby DO Work Phone: [facility] Obstetrics and Gynecology Comment on above: Orders; Results Start: 01-18-2022 End: 01-18-2022 Patient encounter procedure Rolan Dexter DO Work Phone: [facility] Obstetrics & Gynecology Comment on above: Women's annual routi ne gynecological examination (Primary Dx); Routine cervical smear; Secondary amenorrhea Start: 01-08-2022 End: 01-08-2022 Patient encounter procedure Shaun Carlin MD Work Phone: [facility] Comment on above: Hypertension, essent ial (Primary Dx); Bronchitis Start: 01-07-2022 Refill Shaun Sanchez Work Phone: [facility] Comment on above: Refill Request Start: 06-18-2021 End: 06-19-2021 Emergency department patient visit Rolan Allen MD Work Phone: [facility] Emergency Dept Comment on above: Acute bronchitis, un specified organism (Primary Dx); Acute serous otitis media of left ear, recurrence not specified; Acute diffuse otitis externa of left ear Start: 12-23-2020 End: 12-24-2020 Emergency department patient visit Kenny Miles Work Phone: [facility] Emergency Dept Comment on above: Less than 8 weeks [place] station of (Primary Dx); Epigastric pain Start: 08-16-2020 Patient encounter procedure Desiree Casarez [facility] Work Phone: Start: 08-05-2019 End: 08-05-2019 Emergency department patient visit [facility] Start: 08-02-2019 Patient encounter procedure Desiree Casarez [facility] Work Phone: Start: 07-09-2019 End: 07-09-2019 Subsequent hospital visit by physician Kacie Short Work Phone: [facility] [place] [facility] Comment on above: Arrived Start: 07-07-2019 End: 07-07-2019 Subsequent hospital visit by physician Kacie Short Work Phone: [facility] [place] [facility] Comment on above: Arrived Start: 07-06-2019 End: 07-06-2019 Subsequent hospital visit by physician Kacie Short Work Phone: [facility] Comment on above: Arrived Start: 07-05-2019 End: 07-05-2019 Subsequent hospital visit by physician Kacie Short Work Phone: [facility] [place] Dept Comment on above: Arrived Start: 07-02-2019 End: 07-02-2019 Subsequent hospital visit by physician Kacie Short Work Phone: [email or web address] [place] [facility] Comment on above: Arrived Start: 06-30-2019 End: 06-30-2019 Subsequent hospital visit by physician Kacie Short Work Phone: [email or web address] [place] [facility] Comment on above: Arrived Start: 06-28-2019 End: 06-28-2019 Subsequent hospital visit by physician Kacie Short Work Phone: [email or web address] [place] [facility] Comment on above: Arrived Start: 06-25-2019 Subsequent hospital visit by physician Kacie Short Work Phone: [facility] Start: 06-23-2019 Subsequent hospital visit by physician Kacie Short Work Phone: [email or web address] [place] [facility] Start: 06-21-2019 End: 06-21-2019 Subsequent hospital visit by physician Kacie Short Work Phone: [email or web address] [place] [facility] Comment on above: Arrived Start: 06-18-2019 End: 06-18-2019 Subsequent hospital visit by physician Kacie Short Work Phone: [email or web address] [place] [facility] Comment on above: Arrived Start: 06-16-2019 End: 06-16-2019 Subsequent hospital visit by physician Kacie Short Work Phone: [email or web address] [place] [facility] Comment on above: Arrived Start: 06-14-2019 End: 06-14-2019 Subsequent hospital visit by physician Kacie Short Work Phone: [email or web address] [place] [facility] Comment on above: Arrived Start: 06-11-2019 Subsequent hospital visit by physician Kacie Short Work Phone: [facility] Start: 06-09-2019 Subsequent hospital visit by physician Kacie Short Work Phone: [facility] [place] [facility] Start: 06-07-2019 End: 06-07-2019 Subsequent hospital visit by physician Kacie Short Work Phone: [facility] [place] Dept Comment on above: Arrived Start: 06-04-2019 Subsequent hospital visit by physician Kacie Short Work Phone: [facility] [place] [facility] Start: 06-02-2019 Subsequent hospital visit by physician Mihai [facility] Start: 05-31-2019 Patient encounter procedure Christina [facility] [place] Start: 05-31-2019 Subsequent hospital visit by physician Mihai [facility] Start: 05-29-2019 Patient encounter procedure [facility], [place] Start: 05-29-2019 End: 05-29-2019 Emergency department patient visit [place] Work Phone: [facility] Emergency Dept Comment on above: Altered mental statu s, unspecified altered mental status type (Primary Dx); Substance abuse (HCC); Depression, unspecified depression type Start: 05-28-2019 End: 05-29-2019 Emergency department patient visit Ese Bliss Work Phone: [facility] Emergency Dept Comment on above: Polysubstance abuse (HCC) (Primary Dx); Altered mental status, unspecified altered mental status type Start: 05-28-2019 Subsequent hospital visit by physician Kacie Short Work Phone: [facility] Start: 05-26-2019 End: 05-26-2019 Subsequent hospital visit by physician Kacie Short Work Phone: [email or web address] [place] Dept Comment on above: Arrived Start: 05-24-2019 End: 05-24-2019 Subsequent hospital visit by physician Kacie Short Work Phone: [email or web address] [place] [facility] Comment on above: Arrived Start: 05-21-2019 End: 05-21-2019 Subsequent hospital visit by physician Kacie Short Work Phone: [facility] [employer] Dept Comment on above: Arrived Start: 05-20-2019 End: 05-20-2019 Subsequent hospital visit by physician Kacie Short Work Phone: [employer] Comment on above: Arrived Start: 05-14-2019 End: 05-14-2019 Subsequent hospital visit by physician Kacie Short Work Phone: [facility] Start: 05-10-2019 Subsequent hospital visit by physician Kacie Short Work Phone: [facility] Start: 05-07-2019 End: 05-07-2019 Subsequent hospital visit by physician Kacie Short Work Phone: [employer] Comment on above: Arrived Start: 04-30-2019 Subsequent hospital visit by physician Kacie Short Work Phone: [facility] Start: 04-29-2019 Telephone encounter M[facility] Comment on above: Scheduling Start: 04-28-2019 Subsequent hospital visit by physician Mihai REINOSO [facility] OP Start: 04-26-2019 Subsequent hospital visit by physician Kacie Short Work Phone: [facility] Start: 04-23-2019 End: 04-23-2019 Subsequent hospital visit by physician Kacie Short Work Phone: [facility] Comment on above: Arrived Start: 04-21-2019 Subsequent hospital visit by physician Mihai REINOSO [facility] Comment on above: Canceled (Other) Start: 03-08-2019 End: 03-08-2019 Evaluation and management of inpatient UNKNOWN AA UNKNOWN PCP [facility] Start: 07-10-2018 End: 12-08-2019 Subsequent hospital visit by physician Zi Leonard Work Phone: [facility] Dept Start: 06-06-2017 End: 06-07-2017 Emergency department patient visit [facility] Start: 04-19-2017 End: 04-19-2017 Emergency department patient visit [facility] Procedures Date Procedure Procedure Detail Performing [...] Adult depression scr eening assessment Hui Valdes OIL FIELD PIPELINE SUPERVISOR.PRESS WASHER Work Phone: Start: 07-01-2023 INFLUENZA VACCINE, A GE 6 MO - 64 YR, QUADRIVALENT (AFLURIA, FLULAVAL, FLUZONE) Shaun Carlin MD Work Phone: Start: 01-17-2023 Urine test visual color cmprsn meths Flora SANTORO Work Phone: Start: 11-01-2022 Insertion intrauteri ne device iud Alysha Ruff OIL FIELD PIPELINE SUPERVISOR.PRESS WASHER Work Phone: Start: 08-30-2022 Urnls dip stick/tabl et rgnt auto w/o microscopy Flora Browning MD Work Phone: Start: 08-30-2022 Us preg uterus after 1st trimest 09/15 gestation Yael Mahmood OIL FIELD PIPELINE SUPERVISOR.CNM Work Phone: Start: 08-23-2022 Urnls dip stick/tabl [...] Start: 07-05-2019 Drug screening buprenorphine [facility] [employer] Work Phone: Start: 07-05-2019 Drug tst prsmv [...] of 2) Shingles Vaccine (1 of 2) [place], [place] Start: 07-05-2032 Urine microalbumin profile [facility] Start: 06-29-2031 Urine microalbumin profile DTAP,TDAP,TD (3 - Td or Tdap) [facility] Start: 07-07-2028 DTaP/Tdap/Td vaccine (2 - Td or Tdap) DTaP/Tdap/Td vaccine (2 - Td or Tdap) [facility] Work Phone: Start: 07-07-2028 DTaP/Tdap/Td vaccine (2 - Td) DTaP/Tdap/Td vaccine (2 - Td) [place], [place] Start: 10-18-2027 Screening for malign ant neoplasm of cervix Cervical Cancer Screening [facility] Start: 12-31-2025 Annual PCP Team Steel Plate Printer melyssa Disease Visit Annual PCP Team Chronic Disease Visit [facility] Start: 12-31-2025 BP Controlled (<130/80) BP Controlle d (<130/80) [facility] Start: 10-18-2025 BP Controlled (<130/80) BP Controlle d (<130/80) [facility] Start: 10-18-2025 End: 10-18-2025 Patient encounter procedure 10/18/2025 12:50 PM EST Appointment Mammogram [address] [place] [address] Mammogram Start: 10-18-2025 End: 10-18-2025 Patient encounter procedure 10/18/2025 10:45 AM EST Office Visit OB/Gynecology [address] [place] [address] Temitope Bear APRN.CN [address] [place] [address] Annual OB/Gynecology Comment on above: Annual Start: 07-08-2025 End: 07-08-2025 Patient encounter procedure 07/08/2025 11:20 AM EDT Office Visit Family Medicine Lei [address] [place] [address] PodHui li APRN.PRESS WASHER [address] [place] [address] Physical [facility] [place] Comment on above: Physical Start: 07-05-2025 Annual PCP Team Steel Plate Printer melyssa Disease Visit Annual PCP Team Chronic Disease Visit [facility] Start: 07-05-2025 Anxiety Screening Anxiety Screening [facility] Start: 07-05-2025 Depression Screening Depression Scre [facility] Start: 02-21-2025 [facility] Start: 02-14-2025 Patient discharge [facility] Start: 02-14-2025 Anes lwr abd ventral & incisional hernia repair ANESTH REPAIR OF HERNIA [facility] Start: 02-14-2025 RPR AA HRN 1ST 3-10 NCR/STRN RPR AA HRN 1ST 3-10 NCR/STRN [facility] Start: 02-14-2025 End: 02-14-2025 Patient encounter procedure 02/14/2025 9:00 AM EDT Office Visit OB/Gynecology [address] [place] [address] Frances Baxter MD [address] [place] [address] REMOVE INTRAUTERINE DEVICE OB/Gynecology Comment on above: REMOVE INTRAUTERINE DEVICE Start: 01-18-2025 HPV TESTING HPV TESTING [facility] Start: 01-18-2025 PAP TESTING PAP TESTING [facility] Start: 01-18-2025 Screening for malign ant neoplasm of cervix [facility] Start: 01-15-2025 [facility] Start: 01-03-2025 End: 01-03-2025 Patient encounter procedure 01/03/2025 1:20 PM EDT Office Visit Family Medicine Lei [address] [place] [address] Hui Valdes APRN.PRESS WASHER [address] [place] [address] 6 month follow up [facility] Comment on above: 6 month follow up Start: 12-31-2024 End: 12-31-2024 Patient encounter procedure 12/31/2024 11:40 AM EDT Office Visit [facility] [address] [place] [address] Hui Valdes APRN.PRESS WASHER [address] [place] [address] 6 month follow up [facility] Comment on above: 6 month follow up Start: 11-07-2024 BP Controlled (<130/80) BP Controlle d (<130/80) [facility] Start: 10-18-2024 End: 01-17-2025 Hepatitis B virus surface Ag [Presence] in Serum [facility] Comment on above: Expected: 10/18/2024 , Expires: 01/17/2025 Start: 10-18-2024 End: 01-17-2025 Hepatitis C virus Ab [Presence] in Serum [facility] Comment on above: Expected: 10/18/2024 , Expires: 01/17/2025 Start: 10-18-2024 End: 01-17-2025 HIV 1+2 Ab [Presence] in Serum or Plasma by Immunoassay [facility] Comment on above: Expected: 10/18/2024 , Expires: 01/17/2025 Start: 10-18-2024 End: 01-17-2025 SYPHILIS TREPONEMAL W/REFLEX [facility] Comment on above: Expected: 10/18/2024 , Expires: 01/17/2025 Start: 10-15-2024 End: 10-15-2024 Patient encounter procedure 10/15/2024 7:30 AM EST Office Visit OB/Gynecology [address] [place] [address] Sonya Darden APRN.PRESS WASHER [address] [place] [address] Encounter for screening for human papillomavirus (HPV) [Z11.51] OB/Gynecology Comment on above: Encounter for screen ing for human papillomavirus (HPV) [Z11.51] Start: 10-03-2024 Annual PCP Team Steel Plate Printer melyssa Disease Visit Annual PCP Team Chronic Disease Visit [facility] Start: 10-03-2024 BP Controlled (<130/80) BP Controlle d (<130/80) [facility] Start: 09-27-2024 End: 09-27-2024 Patient encounter procedure 09/27/2024 11:00 AM EST Office Visit Neurology [address] [place] [address] Coral Olsen DO [address] [place], [place] [id number] [facility] Comment on above: Migraine Start: 08-30-2024 End: 08-30-2024 Patient encounter procedure 08/30/2024 10:30 AM EST Office Visit OB/Gynecology [address] [place] [address] Sonya Darden, JAZ.PRESS WASHER [address] [place] [address] Encounter for screening for human papillomavirus (HPV) [Z11.51] OB/Gynecology Comment on above: Encounter for screen ing for human papillomavirus (HPV) [Z11.51] Start: 08-24-2024 End: 08-24-2024 Patient encounter procedure 08/24/2024 1:30 PM EST Office Visit OB/Gynecology [address] [place] [address] Sonya Darden, JAZ.PRESS WASHER [address] [place] [address] Encounter for screening for human papillomavirus (HPV) [Z11.51] OB/Gynecology Comment on above: Encounter for screen ing for human papillomavirus (HPV) [Z11.51] Start: 07-05-2024 End: 10-04-2024 CBC W Auto Differential panel - Blood COMPLETE BLOOD COUNT AND DIFFERENTIAL Lab Routine Encounter for medical examination to establish care Expected: 07/05/2024, Expires: 10/04/2024 [facility] Work Phone: Comment on above: Expected: 07/05/2024 , Expires: 10/04/2024 Start: 07-05-2024 End: 10-04-2024 Comprehensive metabolic 2000 panel - Serum or Plasma COMPREHENSIVE METABOLIC PANEL Lab Routine Encounter for medical examination to establish care Expected: 07/05/2024, Expires: 10/04/[address] [facility] Comment on above: Expected: 07/05/2024 , Expires: 10/04/2024 Start: 07-05-2024 End: 10-04-2024 Lipid 1996 panel - Serum or Plasma LIPID PANEL BASIC Lab Routine Encounter for medical examination to establish care Expected: 07/05/2024, Expires: 10/04/[address] [facility] Comment on above: Expected: 07/05/2024 , Expires: 10/04/2024 Start: 07-01-2024 Annual PCP Team Steel Plate Printer melyssa Disease Visit Annual PCP Team Chronic Disease Visit [facility] Start: 07-01-2024 Covid-19 Vaccine () Covid-19 Vaccine () [facility] Comment on above: Postponed from 05/16 (Declined at this time) Start: 05-16-2024 Covid-19 Vaccine () Covid-19 Vaccine () [facility] Start: 03-26-2024 BP CONTROLLED (<130/80) BP CONTROLLE D (<130/80) [facility] Start: 01-02-2024 BP CONTROLLED (<130/80) BP CONTROLLE D (<130/80) [facility] Start: 12-11-2023 ANNUAL PCP TEAM BRANDING MACHINE TENDER MELYSSA DISEASE VISIT ANNUAL PCP TEAM CHRONIC DISEASE VISIT [facility] Start: 10-08-2023 ANNUAL PCP TEAM BRANDING MACHINE TENDER MELYSSA DISEASE VISIT ANNUAL PCP TEAM CHRONIC DISEASE VISIT [facility] Start: 09-15-2023 Behavioral Health Screening Behavioral Health Screening [facility] Start: 09-04-2023 BP CONTROLLED (<130/80) BP CONTROLLE D (<130/80) [facility] Start: 08-15-2023 BP CONTROLLED (<130/80) BP CONTROLLE D (<130/80) [facility] Start: 08-06-2023 BP CONTROLLED (<130/80) BP CONTROLLE D (<130/80) [facility] Start: 08-02-2023 BP CONTROLLED (<130/80) BP CONTROLLE D (<130/80) [facility] Start: 07-19-2023 BP CONTROLLED (<130/80) BP CONTROLLE D (<130/80) [facility] Start: 06-25-2023 ANNUAL PCP TEAM BRANDING MACHINE TENDER MELYSSA DISEASE VISIT ANNUAL PCP TEAM CHRONIC DISEASE VISIT [facility] Start: 06-25-2023 BP CONTROLLED (<130/80) BP CONTROLLE D (<130/80) [facility] Start: 06-25-2023 HEPATITIS B (1 of 3 - 3-dose series) HEPATITIS B (1 of 3 - 3-dose series) [facility] Comment on above: Postponed from 09/06 (Declined at this time) Start: 06-21-2023 BP CONTROLLED (<130/80) BP CONTROLLE D (<130/80) [facility] Start: 05-16-2023 Influenza vaccination INFLUENZA (#1) [facility] Start: 05-10-2023 BP CONTROLLED (<130/80) BP CONTROLLE D (<130/80) [facility] Start: 05-06-2023 ANNUAL PCP TEAM BRANDING MACHINE TENDER MELYSSA DISEASE VISIT ANNUAL PCP TEAM CHRONIC DISEASE VISIT [facility] Start: 05-06-2023 BP CONTROLLED (<130/80) BP CONTROLLE D (<130/80) [facility] Start: 04-05-2023 COVID-19 VACCINE (2 - Moderna series) COVID-19 VACCINE (2 - Moderna series) [facility] Comment on above: Postponed from 07/30 (Declined at this time) Postponed from 08/27 (Declined at this time) Start: 03-05-2023 BP CONTROLLED (<130/80) BP CONTROLLE D (<130/80) [facility] Start: 02-08-2023 BP CONTROLLED (<130/80) BP CONTROLLE D (<130/80) [facility] Start: 01-17-2023 End: 01-02-2024 EGD DIAGNOSTIC [facility] Work Phone: Comment on above: Expected: 01/17/2023 , Expires: 01/02/2024 1 Occurrences starti ng 01/17/2023 until 01/17/2023 Start: 01-08-2023 ANNUAL PCP TEAM BRANDING MACHINE TENDER MELYSSA DISEASE VISIT ANNUAL PCP TEAM CHRONIC DISEASE VISIT [facility] Start: 11-20-2022 End: 01-20-2023 Choriogonadotropin.beta subunit [Units/volume] in Serum or Plasma HCG QUANTITATIVE Lab Routine examination or test, unconfirmed Expected: 11/20/2022 (Approximate), Expires: 01/20/2023 [facility] Work Phone: Comment on above: Expected: 11/20/2022 (Approximate), Expires: 01/20/2023 Start: 11-19-2022 Adult depression screening assessment DEPRESSION SCREENING [facility] Start: 10-04-2022 HPV TESTING HPV TESTING [facility] Start: 10-04-2022 PAP TESTING PAP TESTING [facility] Start: 09-15-2022 DEPRESSION ASSESSMENT DEPRESSION ASS ESSMENT [facility] Start: 09-09-2022 INDUCTION L&D INDUCTION L&D Procedures Routine Preexisting hypertension complicating , antepartum Expected: 09/09/2022 [facility] Work Phone: Comment on above: Expected: 09/09/2022 Start: 08-06-2022 End: 08-06-2023 OBSTETRIC ULTRASOUND WHI OBSTETRIC ULTRASOUND WHI Anc Imaging Routine AMA (advanced maternal age) multigravida 35+, third trimester Obesity complicating , third trimester Expected: 08/06/2022, Expires: 08/06/2023 [facility] Work Phone: Comment on above: Expected: 08/06/2022 , Expires: 08/06/2023 Start: 06-21-2022 End: 06-21-2023 CBC panel - Blood by Automated count [facility] Work Phone: Comment on above: Expected: 06/21/2022 , Expires: 06/21/2023 Start: 06-21-2022 End: 06-21-2023 GEST GLUC SCREEN, 1-HR, 50 GM, NON-FASTING [facility] Work Phone: Comment on above: Expected: 06/21/2022 , Expires: 06/21/2023 Start: 06-21-2022 End: 06-21-2023 SYPHILIS TOTAL W/REFLEX [facility] Work Phone: Comment on above: Expected: 06/21/2022 , Expires: 06/21/2023 Start: 06-21-2022 End: 08-21-2022 TOX SCREEN ROUT UR TOX SCREEN ROUT UR Lab Routine 26 weeks gestation of History of drug use Expected: 06/21/2022, Expires: 08/21/2022 [facility] Work Phone: Comment on above: Expected: 06/21/2022 , Expires: 08/21/2022 Start: 05-16-2022 Influenza vaccination INFLUENZA (#1) [facility] Start: 02-14-2022 End: 04-16-2022 Acute hepatitis 2000 panel - Serum [facility] Work Phone: Comment on above: Expected: 02/14/2022 , Expires: 04/16/2022 Start: 02-14-2022 End: 04-16-2022 HIV 1+2 Ab [Presence] in Serum or Plasma by Immunoassay [facility] Work Phone: Comment on above: Expected: 02/14/2022 , Expires: 04/16/2022 Start: 02-14-2022 End: 04-16-2022 RUBELLA IGG AB [facility] Work Phone: Comment on above: Expected: 02/14/2022 , Expires: 04/16/2022 Start: 02-14-2022 End: 04-16-2022 SYPHILIS TOTAL W/REFLEX [facility] Work Phone: Comment on above: Expected: 02/14/2022 , Expires: 04/16/2022 Start: 01-18-2022 End: 03-20-2022 Choriogonadotropin.beta subunit [Units/volume] in Serum or Plasma HCG QUANTITATIVE Lab Routine Secondary amenorrhea Expected: 01/18/2022, Expires: 03/20/2022 [facility] Work Phone: Comment on above: Expected: 01/18/2022 , Expires: 03/20/2022 Start: 01-18-2022 End: 03-20-2022 TYPE AND SCREEN TYPE AND SCREEN Blood Bank Routine Secondary amenorrhea Expected: 01/18/2022, Expires: 03/20/2022 [facility] Work Phone: Comment on above: Expected: 01/18/2022 , Expires: 03/20/2022 Start: 12-12-2021 ANNUAL PCP TEAM BRANDING MACHINE TENDER MELYSSA DISEASE VISIT ANNUAL PCP TEAM CHRONIC DISEASE VISIT [facility] Start: 09-15-2021 DEPRESSION ASSESSMENT DEPRESSION ASS ESSMENT [facility] Start: 07-30-2021 COVID-19 VACCINE (2 - Moderna 3-dose series) COVID-19 VACCINE (2 - Moderna 3-dose series) [facility] Start: 07-30-2021 COVID-19 VACCINE (2 - Moderna series) COVID-19 VACCINE (2 - Moderna series) [facility] Start: 05-16-2021 Influenza vaccination Flu vaccine (# 1) [facility] Work Phone: Start: 06-01-2020 A1C test (Diabetic o r Prediabetic) A1C test (Diabetic or Prediabetic) [place], [place] Start: 06-01-2020 HbA1c (Bld) [Mass fraction] A1C test (Diabetic or Prediabetic) [facility] Work Phone: Start: 06-01-2020 Hemoglobin A1c measurement A1C test (Diabetic or Prediabetic) [facility] Work Phone: Start: 07-09-2019 End: [...] 05-16-2019 Influenza vaccination Flu vaccine (# 1) [place], [place] Start: 05-14-2019 End: 05-14-2019 Appointment 05/14/2019 Appointment Mihai Ly [facility] Start: 05-12-2019 End: 05-12-2019 Appointment 05/12/2019 Appointment Mihai Ly [facility] Start: 05-10-2019 End: 05-10-2019 Appointment 05/10/2019 Appointment Psychiatry Mhiai Sweet [facility] Start: 05-07-2019 End: 05-07-2019 Appointment 05/07/2019 Appointment Mihai Ly [facility] Start: 05-06-2019 End: 05-06-2019 Office Visit 05/06/2019 Office Visit Obstetrics and Gynecology Luci Edwards APRN - [address] [place] [place] [address] [phone] [facility] [employer]ER Start: 05-05-2019 End: 05-05-2019 Appointment 05/05/2019 Appointment Psychiatry Mhiai Sweet [facility] Start: 05-03-2019 End: [...] Cervical cancer screen Cervical canc er screen [place], [place] Start: 2006 Screening for malign ant neoplasm of cervix [facility] Work Phone: Start: 2003 BP CONTROLLED (<130/80) BP CONTROLLE D (<130/80) [facility] Start: 2001 COVID-19 Vaccine (1) COVID-19 Vaccin e (1) [facility] Work Phone: Start: 1998 Varicella Vaccine (1 of 2 - 13+ 2-dose series) Varicella Vaccine (1 of 2 - 13+ 2-dose series) [place], [place] Start: 1997 COVID-19 Vaccine (1) COVID-19 Vaccin e (1) [facility] Work Phone: Start: 1991 Pneumococcal 0-64 ye ars Vaccine (1 of 1 - PPSV23) Pneumococcal 0-64 years Vaccine (1 of 1 - PPSV23) [place], [place] Start: 1986 Varicella Vaccine (1 of 2 - 2-dose childhood series) Varicella Vaccine (1 of 2 - 2-dose childhood series) [place], [place] Start: 1985 HEPATITIS B (1 of 3 - 3-dose series) HEPATITIS B (1 of 3 - 3-dose series) [facility] BACTERIAL VAGINOSIS NAAT BACTERI AL VAGINOSIS NAAT Lab Routine Screening for STDs (sexually transmitted diseases) 10/18/2024 10:[address] [facility] End: 06-07-2019 Buprenorphine Buprenorphine Lab Routine Once for 1 Occurrences starting 06/07/2019 until 06/07/2019 [place], [place] Comment on above: Once for 1 Occurrenc es starting 06/07/2019 until 06/07/2019 Buprenorphine Buprenorphine La b Routine 06/07/2019 2:46 PM EDT [facility], [place] ALEX/TRICHOMONAS NAAT ALEX /TRICHOMONAS NAAT Lab Routine Screening for STDs (sexually transmitted diseases) 10/18/2024 10:44 AM [facility] Chlamydia trachomatis+Neisseria gonorrhoeae DNA [Presence] in Unspecified specimen by CASSIDY with probe detection GC/CHLAMYDIA DNA DET Lab Routine Women's annual routine gynecological examination 01/18/2022 2:05 PM EDT [facility] Work Phone: Chlamydia trachomatis+Neisseria gonorrhoeae DNA [Presence] in Unspecified specimen by CASSIDY with probe detection GONORRHEA/CHLAMYDIA NAAT Lab Routine Screening for STDs (sexually transmitted diseases) 10/18/2024 10:44 AM [facility] Chlamydia trachomatis+Neisseria gonorrhoeae DNA [Presence] in Urine by CASSIDY with probe detection GC/CHLAMYDIA AMPLIF, URINE Microbiology Routine Routine screening for STI (sexually transmitted infection) 11/01/2022 2:[address] [facility] Work Phone: End: 12-23-2020 Culture, Urine Culture, Urine Microbiology STAT One Time for 1 Occurrences starting 12/23/2020 until 12/23/2020 [facility] Work Phone: Comment on above: One Time for 1 Occur rences starting 12/23/2020 until 12/23/2020 Culture, Urine Culture, Urine Microbiology STAT 12/23/2020 11:11 PM EDT [facility] Work Phone: End: 11-17-2025 DBT Breast - bilateral screening CHARIS SCREENING W JORGE Radiology Routine Encounter for screening mammogram for breast cancer Dense breast tissue 1 Occurrences starting 10/18/2024 until 11/17/2025 [facility] Work Phone: Comment on above: 1 Occurrences starti ng 10/18/2024 until 11/17/2025 EKG 12 Lead [facility]IC[facility] End: 06-07-2019 Fentanyl, Urine Fentanyl, Urine Lab Routine Once for 1 Occurrences starting 06/07/2019 until 06/07/2019 [facility] Comment on above: Once for 1 Occurrenc es starting 06/07/2019 until 06/07/2019 Fentanyl, Urine Fentanyl, Urine Lab Routine 06/07/2019 2:46 PM EDT [facility] End: 08-21-2022 nonstress test NON-STRESS TEST Procedures Routine Gestational diabetes mellitus, class A1 Obesity complicating , third trimester Preexisting hypertension complicating , antepartum Once per week for 10 Occurrences starting 07/19/2022 until 08/21/2022 [facility] Work Phone: Comment on above: Once per week for 10 Occurrences starting 07/19/2022 until 08/21/2022 nonstress test NON-S TRESS TEST Procedures Routine AMA (advanced maternal age) multigravida 35+, third trimester Obesity complicating , third trimester Gestational diabetes mellitus, class A1 33 weeks gestation of Non-stress test reactive Ordered: 08/06/2022 [facility] Work Phone: Comment on above: Ordered: 08/06/2022 FUNGAL SMEAR FUNGAL SMEAR Microbiology Routine Vaginal discharge Ordered: 04/05/2022 [facility] Work Phone: Comment on above: Ordered: 04/05/2022 Hemoglobin A1c/Hemoglobin.total in Blood HEMOGLOBIN A1C (POC) Lab Routine History of gestational diabetes Ordered: 12/10/2022 [facility] Work Phone: Comment on above: Ordered: 12/10/2022 End: 06-07-2019 [facility] Lab Routine Once for 1 Occurrences starting 06/07/2019 until 06/07/2019 [facility] Comment on above: Once for 1 Occurrenc es starting 06/07/2019 until 06/07/2019 [facility] Lab Routine 06/07/2019 2:46 PM EDT [facility] OB UA DIP B/O (AG) OB UA DIP B/O (AG) Lab Routine 15 weeks gestation of Ordered: 04/02/2022 [facility] Work Phone: Comment on above: Ordered: 04/02/2022 OB UA DIP B/O (AG) OB UA DIP B/O (AG) Lab Routine 28 weeks gestation of Ordered: 07/03/2022 [facility] Work Phone: Comment on above: Ordered: 07/03/2022 OB UA DIP B/O (AG) OB UA DIP B/O (AG) Lab Routine 32 weeks gestation of Ordered: 07/31/2022 [facility] Work Phone: Comment on above: Ordered: 07/31/2022 OB UA DIP B/O (AG) OB UA DIP B/O (AG) Lab Routine 34 weeks gestation of Ordered: 08/14/2022 [facility] Work Phone: Comment on above: Ordered: 08/14/2022 OB UA DIP B/O (AG) OB UA DIP B/O (AG) Lab Routine 35 weeks gestation of Ordered: 08/22/2022 [facility] Work Phone: Comment on above: Ordered: 08/22/2022 OB UA DIP B/O (AG) OB UA DIP B/O (AG) Lab Routine 36 weeks gestation of Ordered: 08/29/2022 [facility] Work Phone: Comment on above: Ordered: 08/29/2022 OB UA DIP B/O (AG) OB UA DIP B/O (AG) Lab Routine 37 weeks gestation of Ordered: 09/03/2022 [facility] Work Phone: Comment on above: Ordered: 09/03/2022 OBSTETRIC ULTRASOUND WHI OBSTETR IC ULTRASOUND WHI Anc Imaging Routine care of multigravida, antepartum Ordered: 01/21/2022 [facility] Work Phone: Comment on above: Ordered: 01/21/2022 OBSTETRIC ULTRASOUND WHI OBSTETR IC ULTRASOUND WHI Anc Imaging Routine 15 weeks gestation of Ordered: 04/05/2022 [facility] Work Phone: Comment on above: Ordered: 04/05/2022 OBSTETRIC ULTRASOUND WHI OBSTETR IC ULTRASOUND WHI Anc Imaging Routine Obesity complicating , second trimester Ordered: 05/07/2022 [facility] Work Phone: Comment on above: Ordered: 05/07/2022 End: 09-13-2022 OBSTETRIC ULTRASOUND WHI OBSTETRIC ULTRASOUND WHI Anc Imaging Routine Gestational diabetes mellitus, class A1 Once per month for 4 Occurrences starting 07/05/2022 until 09/13/2022 [facility] Work Phone: Comment on above: Once per month for 4 Occurrences starting 07/05/2022 until 09/13/2022 PAP FLUID CERVICAL SCREENING PAP FLUID CERVICAL SCREENING Lab Routine Women's annual routine gynecological examination Routine cervical smear Ordered: 01/18/2022 [facility] Work Phone: Comment on above: Ordered: 01/18/2022 PAP TEST PAP TEST Lab Lindsay doll Encounter for gynecological examination (general) (routine) with abnormal findings Screening for cervical cancer Encounter for screening for human papillomavirus (HPV) 10/18/2024 10:[address] [facility] Patient Education [facility] Work Phone: Patient referral [facility] Work Phone: Removal intrauterine device iud REMOVE INTRAUTERINE DEVICE Procedures Routine Encounter for IUD removal Ordered: 12/28/2024 [facility] Work Phone: Comment on above: Ordered: 12/28/2024 SURGICAL PATHOLOGY [facility] Work Phone: Comment on above: Release Upon Orderin g for 1 Occurrences starting 01/17/2023, 1 completed UA DIP, URINE (POC) UA DIP, URIN E (POC) Lab Routine 26 weeks gestation of Ordered: 06/21/2022 [facility] Work Phone: Comment on above: Ordered: 06/21/2022 [facility] Immunizations Immunization Date Immunization Notes Care Provider Citlali boyd 07-05-2024 influenza, seasonal, injectable Hui Ortizkattyashira OIL FIELD PIPELINE SUPERVISOR.PRESS WASHER Work Phone: [facility] 07-01-2023 influenza, injectabl e, quadrivalent, contains preservative Shaun Carlin MD Work Phone: [facility] 07-05-2022 tetanus toxoid, reduced diphtheria toxoid, and acellular pertussis vaccine, adsorbed [facility] 06-25-2022 influenza, injectabl e, quadrivalent, contains preservative Honey Angel PA-C Work Phone: [facility] 06-29-2021 influenza, injectabl e, quadrivalent, contains preservative Shaun Carlin MD Work Phone: [facility] 06-29-2021 tetanus toxoid, reduced diphtheria toxoid, and acellular pertussis vaccine, adsorbed Shaun Carlin MD Work Phone: [facility] 05-03-2020 influenza virus vaccine, unspecified formulation Shaun Carlin MD Work Phone: [facility] 05-03-2020 influenza, injectabl e, quadrivalent, preservative free Shaun Carlin MD Work Phone: [facility] 10-04-2019 influenza, injectabl e, quadrivalent, contains preservative Shaun Carlin MD Work Phone: [facility] 07-07-2018 influenza, injectabl e, quadrivalent, contains preservative Shaun Carlin MD Work Phone: [facility] 07-07-2018 tetanus toxoid, reduced diphtheria toxoid, and acellular pertussis vaccine, adsorbed Shaun Carlin MD Work Phone: [facility] 08-17-2009 novel [id number], preservative-free, injectable Shaun Carlin MD Work Phone: [facility] 04-27-1998 measles, mumps and rubella virus vaccine Shaun Carlin MD Work Phone: [facility] NEGATED: Highlighted row has not occurred!06-04-2019 influenza, injectable, quadrivalent, preservative free Christina Rangel [place], [place] NEGATED: Highlighted row has not occurred!06-01-2019 influenza, injectable, quadrivalent, preservative free Christina Rangel [place], [place] Payers Date Payer Category Payer Self-pay 2022 Medicaid [id number] 2018 Medicaid [employer] [facility] [id number] 2018-Present [phone] [address] [place] [address] Medicaid [id number] 2018 Medicaid [id number] 2014 Unknown xxxxxxxxxxx [id number] 1985 Unknown [id number] 1985 Unknown [id number] 1985 Unknown [id number] 1959 Unknown [id number] Unknown [employer] Unknown [id number] Unknown [id number] Unknown [id number] Unknown [id number] Social History Date Type Detail Facility Start: 06-27-2018 End: 02-21-2025 Tobacco smoking status NHIS Current every day smoker [facility] Start: 09-15-2000 End: 09-15-2020 History of tobacco use [facility] Start: 06-27-2018 End: 07-05-2024 Cigarettes smoked current (pack per day) - Reported [facility] Start: 06-27-2018 End: 07-05-2024 Alcohol intake No [facility] Start: 1985 [facility]igned [facility] Start: 05-31-2019 End: 06-19-2021 Alcohol intake Current [facility]-drinker [facility]finding) [facility] Start: 12-23-2020 End: 07-05-2024 Tobacco smoking status NHIS Former smoker [facility] Work Phone: Start: 12-23-2020 End: 07-05-2024 Tobacco use and exposure Never used [facility] Work Phone: Start: 11-11-2020 [facility] Work Phone: Start: 12-15-2021 End: 06-28-2022 Exposure to SARS-CoV-2 (event) Not sure [facility] Work Phone: Start: 12-12-2020 End: 05-06-2022 Tobacco use and exposure Former smokeless tobacco user [facility] Work Phone: End: 10-16-2020 History of tobacco use User of smokeless tobacco [facility] Work Phone: Start: 11-26-2021 End: 12-31-2024 Alcohol intake Ex-drinker (finding) [facility] Start: 11-19-2021 End: 10-01-2022 History SDOH Alcohol Frequency [address] [facility] Start: 11-19-2021 History SDOH Alcohol Std Drinks [address] [facility] Start: 07-07-2018 History SDOH Alcohol Comment rarely [facility] Start: 11-19-2021 End: 10-01-2022 History SDOH Social Connections Phone [address] [facility] Start: 11-19-2021 End: 10-01-2022 History SDOH Social Connections [facility] [address] [facility] Start: 11-19-2021 History SDOH Physica l Activity MPS [address] [facility] Start: 11-19-2021 End: 10-01-2022 History SDOH Financial [address] [facility] Start: 11-19-2021 End: 10-01-2022 History SDOH Transport Med [address] [facility] Start: 1985 Sex Assigned At Female C [facility] Start: 04-05-2022 End: 04-15-2022 Exposure to SARS-CoV-2 (event) Yes [facility] Start: 09-15-2000 End: 09-15-2020 History of tobacco use Current smoker [facility] Work Phone: Start: 10-01-2022 History SDOH Alcohol Std Drinks [address] [facility] Are you now , , , , never or living with a partner? [facility] How often to you hav e a drink containing alcohol? Never [facility] How many standard drinks containing alcohol do you have on a typical day? Patient does not drink [facility] How hard is it for y ou to pay for the very basics like food, housing, medical care, and heating Not very hard [facility] Do you feel stress - tense, restless, nervous, or anxious, or unable to sleep at night because your mind is troubled all the time - these days [OSQ] Not at all [facility] (I/We) worried wheth er (my/our) food would run out before (I/we) got money to buy more. Never true [facility] In the past 12 month s, was there a time when you were not able to pay the mortgage or rent on time? No [facility] Start: 05-15-2020 Gender identity Identifies as female gender (finding) [facility] Start: 05-15-2020 Sexual orientation Heterosexual (rosario cardenas) [facility] Do you feel stress - tense, restless, nervous, or anxious, or unable to sleep at night because your mind is troubled all the time - these days [OSQ] Only a little [facility] NEGATED: Highlighted row - - [facility] Work Phone: NEGATED: Highlighted row Not [facility] Medical Equipment Procedure Code Equipment Code Equipment Original Text Equipment Identifier Dates Repair, hernia, ventral, with mesh insertion MESH,VENTLEX ST MED 6.4CM FDA Start: 02-14-2025 Start: 06-28-2022 End: 09-01-2022 Comment on above: Use as instructed 1 Strip four times d aily. Use as instructed Goals Date Patient Goal Desired Activity /State Functional Status Date Assessment Result Facility 02-14-2025 Functional status Ambulates [facility] Work Phone: 12-31-2024 Total score [AUDIT-C] 0 01/01/20 12:33 PM EDT User, [email or web address] [facility] 12-31-2024 Within the last year , have you been humiliated or emotionally abused in other ways by your partner or ex-partner? No 12/31/2024 12:33 PM EDT User, Johniehart No [facility] 12-31-2024 Within the last year , have you been afraid of your partner or ex-partner? No 12/31/2024 12:33 PM EDT User, Mychart No [facility] 12-31-2024 Within the last year , have you been raped or forced to have any kind of sexual activity by your partner or ex-partner? No 12/31/2024 12:33 PM EDT User, Mychart No [facility] 12-31-2024 Within the last year , have you been kicked, hit, slapped, or otherwise physically hurt by your partner or ex-partner? No 12/31/2024 12:33 PM EDT User, Mychart No [facility] 12-31-2024 How often to you hav e a drink containing alcohol? Never 12/31/2024 12:33 PM EDT User, Mychart Never [facility] 12-31-2024 Functional status Patient does n ot drink 12/31/2024 12:33 PM EDT User, [email or web address] Patient does not drink [facility] 12-31-2024 How often do you hav e 6 or more drinks on 1 occasion? Never 12/31/2024 12:33 PM EDT User, Mychart Never [facility] 12-24-2024 Total score [AUDIT-C] 0 12/25/19 12:37 PM EDT User, Mychart [facility] 12-24-2024 Within the last year , have you been humiliated or emotionally abused in other ways by your partner or ex-partner? No 12/24/2024 12:37 PM EDT UserKrystian No [facility] 12-24-2024 Within the last year , have you been afraid of your partner or ex-partner? No 12/24/2024 12:37 PM EDT User, Krystian No [facility] 12-24-2024 Within the last year , have you been raped or forced to have any kind of sexual activity by your partner or ex-partner? No 12/24/2024 12:37 PM EDT UserKrystian No [facility] 12-24-2024 Within the last year , have you been kicked, hit, slapped, or otherwise physically hurt by your partner or ex-partner? No 12/24/2024 12:37 PM EDT UserKrystian No [facility] 12-24-2024 How often to you hav e a drink containing alcohol? Never 12/24/2024 12:37 PM EDT User, Krystian Never [facility] 12-24-2024 Functional status Patient does n ot drink 12/24/2024 12:37 PM EDT User, Krystian Patient does not drink [facility] 12-24-2024 How often do you hav e 6 or more drinks on 1 occasion? Never 12/24/2024 12:37 PM EDT User, Krystian Never [facility] 09-14-2022 Are you blind, or do you have serious difficulty seeing, even when wearing glasses No 09/14/2022 8:45 AM Sonya Espitia, HARRIET No [facility] 09-14-2022 Do you have serious difficulty walking or climbing stairs No 09/14/2022 8:45 AM Sonya Espitia, HARRIET No [facility] 09-14-2022 Do you have difficul ty dressing or bathing No 09/14/2022 8:45 AM Sonya Espitia, HARRIET No [facility] 09-14-2022 Because of a physica l, mental, or emotional condition, do you have difficulty doing errands alone such as visiting a physician's office or shopping No 09/14/2022 8:45 AM Sonya Espitia RN No [facility] 03-28-2022 Are you deaf, or do you have serious difficulty hearing No 03/28/2022 1:25 PM EDT Carlene Francis, HARRIET No [facility] NEGATED: Highlighted row Functional performance Functional status health issues are not documented [facility] Work Phone: Mental Status Date Assessment Result Facility 02-14-2025 Cognitive function Voice/Name [facility] Work Phone: 09-14-2022 Because of a physical, mental, or emotional condition, do you have serious difficulty concentrating, remembering, or making decisions No 09/14/2022 8:45 AM Sonya Espitia RN No [facility] NEGATED: Highlighted row Cognitive function [Interpretation] Cognitive status health issues are not documented [facility] Work Phone: Clinical Notes 10-30-2021 to 02-21-2025 Note Date & Type Note Facility 02-21-2025 Discharge summary [facility] 02-21-2025 Radiology Diagnostic study note [facility] Imaging Services [address] [place], [place] [address] Abdomen/Pelvis W IV Cont ONLY MR#: [id number] Acct: [id number] Name: SIA OLIVERA Rep #: [id number] : 1985 F 39 From: Serjio Curry MD PCP: Hui Valdes, ROTARY ENVELOPE MACHINE OPERATOR-C Status: REG E R Study:Abdomen/Pelvis W IV Cont ONLY Date of E xam: 02/21/25 Exam# [id number] Ordering Dr: Yvon Do DO PROCEDURE: ABDOMEN/PELVIS [...] examination is unchanged. Multiple gallstones. Reading Location: [place] [address] CC: KOSTA Valdes; Dr. Yvon Becker DO ~ Music Minister: Signed [facility] 02-21-2025 Discharge summary Note Date/Time February 21, 2025 3:58pm [facility] Medical Records Department [address] [place] [address] Emergency Department Summary 02/21/25 MR#: [id number] Acct: [id number] Name: SIA OLIVERA Rep #:[id number] : [...] intact Psych: Cooperative, appropriate mood and affect [facility] Medical History Wears glasses Wears dentures Depression [...] did have surgery, I spoke to Dr. Garcia. Agrees with discharge home. Has an appointment [...] % (Auto) 59.2 Lymph % (Auto) 29.7 Bucks % (Auto) 8.0 Eos % (Auto) 2.0 [...] Clarity Clear Urine pH 7.0 Ur Specific [place] 1.010 Urine Protein Negative Urine Glucose (UA) [...] examination is unchanged. Multiple gallstones. Reading Location: [place] [address] Discharge Plan Triage Chief Complaint: Abd Pain [...] if symptoms change or worsen. Print Language: Eritrean Disposition Disposition: Home, Self Care What to do if you have Problems For any increased pain, shortness of breath, bleeding, nausea or vomiting, chestpain, or any unexpected problems, contact your Primary Care Provider. Call [facility] ([phone]) or report to the closest Emergency Room. Call 911 if necessary. 02/21/25 1558 <Electronically signed by Yvon Becker DO> Cosigner Signature (if applicable): CC: KOSTA Valdes ~ Signed [facility] Work Phone: 1(195) 728-532906-06-2025 Hospital Discharge instructions Additional Instructions Keep your appointment on Friday with general surgery. Return back to the ED if symptoms change or worsen.[facility] Work Phone: 1(247) 434-601706-02-2025 Consult note [facility] Medical Records Department [address] [place] [address] Anesthesia Postop Eval II 02/14/25 1637 MR#: [id number] Acct: [id number] Name: SIA OLIVERA Rep #:[id number] : 1985 39 From: Guille Shin MD PCP: Hui Podlogar, ROTARY ENVELOPE MACHINE OPERATOR-C Status:REG S DC Y Race: C Location: [facility] Anesthesia Postop Eval I Sum Postop Eval Completion status Anesthesia document: Postop Eval 1 completed: Yes Anesthesia Postop Eval I Summary Anesthesia Postop Eval I Summary: Anesthesia Postop Eval I: Assessment Summary Airway patent Yes 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 Spontaneous unlabored Yes 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 respirations Mental status Awake,Calm 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 nausea No 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 Vomiting No 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 Anesthesia Postop Eval I: Fluid Summary Crystalloid volume administer 1,000 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 (ml) Colloids volume administered ( ml) Blood Product volume administered (ml) Total IV fluid infused 1,000 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 Anesthesia Postop Eval I: Summary Notes Anesthesia Complication No 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 Anesthesia Complication Comment: Post-operative progress note Anesthesia: Postop Eval II Evaluation Mental status: Awake Pain Level: 0 nausea: No Vomiting: No Complications Anesthesia Complication: No 02/14/25 1637 > Date _ Guille Shin MD Cosigner Signature: Date CC: ~ Signed [facility]06-02-2025 Consult note Author Royce Gomez [facility] Note Date/Time February 14, 2025 3:55p [facility] Medical Records Department [address] [place] [address] Anesthesia Postop Eval I 02/14/25 1554 MR#: [id number] Acct: [id number] Name: SIA OLIVERA Rep #:[id number] : 1985 39 From: Royce SORENSEN PCP: KOSTA Gomez Status:REG S DC Y Race: C Location: [place] [address] Anesthesia: Postop Eval I Current Vital Signs [...] document: Postop Eval 1 completed: Yes 02/14/25 9474 <Electronically signed by Royce Gomez CRNA> Date _ Royce Gomez CRNA Cosigner Signature: Date CC: ~ Signed [facility] Work Phone: 1(508) 258-700406-02-2025 Discharge summary Author Desean Rodriguez [facility] Note Date/Time February 14, 2025 3:46p [facility] Medical Records Department [address] [place] [address] Instructions for Home/Discharge Instructions 02/14/25 1536 MR#: [id number] Acct: [id number] Name: SIA OLIVERA Rep #:[id number] : [...] Provider: Hui Valdes NP Instructions Print Language: Eritrean Discharge Orders/Prescriptions Prescriptions: New oxycodone-acetaminophen [Percocet] 5-325 [...] Referrals / Follow Up: Hui Valdes NP, ROTARY ENVELOPE MACHINE OPERATOR-C [Primary Care Provider] - Disposition Disposition (needs filled in before D/C Order can be placed): Home, Self Care 02/14/25 1546<Electronically signed by Desean Rodriguez MD>Desean Rodriguez MD CC: ROTARY ENVELOPE MACHINE OPERATOR-C Hui Ortizlogar ~ Signed [facility] Work Phone: 1(333) 981-873506-02-2025 History and physical note Author Desean Rodriguez [facility] Note Date/Time February 14, 2025 2:17p m [facility] Medical Records Department [address] [place] [address] History & Physical Exam 02/14/25 1414 MR#: [id number] Acct: [id number] Name: SIA OLIVERA Rep #:[id number] : 1985 39 From: Desean Rodriguez MD PCP: OLY GomezC Status:REG S DC Location: [facility] HPI - General General Date of Admission: 02/14/25 Date of Service: 02/14/25 Chief Complaint: Ventral hernia HPI Narrative SIA OLIVERA, is a 39 F who presents for elective repair of a ventral hernia just above the umbilicus. [facility] Medical History Wears glasses Wears dentures Depression [...] begin momentarily Charges/Coding Visit Charges Inpatient E&M: 18729 Init Hosp L2 02/14/25 1417 <Electronically signed by Desean Rodriguez MD> Cosigner Signature (if applicable): CC: ROTARY ENVELOPE MACHINE OPERATOR-C Hui Valdes; Dr. Desean Rodriguez MD~ Signed [facility] Work Phone: 1(574) 783-890506-02-2025 Procedure note [facility] Medical Records Department [address] [place] [address] Operative Report 02/14/25 1546 MR#: [id number] Acct: [id number] Name: SIA OLIVERA Rep #:[id number] : 1985 39 From: Desean Rodriguez MD PCP: Hui Valdes, OLYC Status:REG S [place] Location: [place] [address] Problems Associated Problem List Diagnoses (1) Ventral hernia: Procedures Digestive 40xxx-49xxx: 16168 RPR AA HRN 11-22 NCR/STRN Operative Report (Standard) Operative Information Date of Procedure: 02/14/25 Pre-Operative Diagnosis: Ventral hernia -chronically incarcerated Post-Operative Diagnosis: Same Surgery/Procedure Performed: Open ventral hernia repair with mesh newspaper editor managing: Yes Apparel Merchandiser: Kristine Larose Tasks completed by first assistant manager: Closing and Retracting Additional administrative personal assistant?: No Type of Anesthesia: General and Local [...] KOSTA Valdes; Dr. Desean Rodriguez MD~ Signed [facility]06-02-2025 Consult note [facility] Medical Records Department [address] [place] [address] Anesthesia Postop Eval I 02/14/251553 MR#: [id number] Acct: [id number] Name: SIA OLIVERA Rep #:[id number] : 1985 39 From: Royce SORENSEN PCP: KOSTA Gomez Status:REG S DC Y Race: C Location: [place] [address] Anesthesia: Postop Eval I Current Vital Signs [...] document: Postop Eval 1 completed: Yes 02/14/251554 BRAKE MECHANIC> Date _ Royce Gomez CRNA Cosigner Signature: Date CC: ~ Signed [facility]06-02-2025 Discharge summary [facility] Medical Records Department [address] [place] [address] Instructions for Home/Discharge Instructions 02/14/25 1536 MR#: [id number] Acct: [id number] Name: SIA OLIVERA Rep #:[id number] : [...] Provider: Hui Valdes NP Instructions Print Language: Eritrean Discharge Orders/Prescriptions Prescriptions: New oxycodone-acetaminophen [Percocet] 5-325 [...] Referrals / Follow Up: Hui Valdes NP, ROTARY ENVELOPE MACHINE OPERATOR-C [Primary Care Provider] - Disposition Disposition (needs filled in before D/C Order can be placed): Home, Self Care 02/14/25 1546Steagle Rodriguez MD CC: KOSTA Valdes ~ Signed [facility]06-02-2025 Consult note Author Guille Shin [facility] Note Date/Time February 14, 2025 1:45p m [facility] Medical Records Department [address] [facility] [address] Pre-Anesthesia Evaluation 02/14/25 1340 MR#: [id number] Acct: [id number] Name: SIA OLIVERA Rep #:[id number] : 1985 39 From: Guille Shin MD PCP: KOSTA Gomez Status:REG S DC Y Race: C Location: [place] [address] ASA Classification* ASA Classification ASA Classification: 2 [...] WITH MESH Anesthesia History Anesthesia History - reed or wind instrument tuner: Anesthesia History - reed or wind instrument tuner Hx Hospitalization No 02/04/25 14:43 Any Problems [...] take am of surgery PONV PONV - reed or wind instrument tuner: PONV - reed or wind instrument tuner Female Yes 02/04/25 14:43 HX of Motion [...] 02/14/25 13:25 Respiratory Assessment Respiratory Assessment - reed or wind instrument tuner: Respiratory Tract Infection Hx - reed or wind instrument tuner Hx Respiratory Tract Infection No 02/04/25 14:43 STOP Sleep Apnea STOP Sleep Apnea - reed or wind instrument tuner: STOP Sleep Apnea - reed or wind instrument tuner Hx Hypertension No 02/04/25 14:43 Hx Sleep [...] Tobacco Use History Tobacco Use History - reed or wind instrument tuner: Tobacco Use History - reed or wind instrument tuner Tobacco Use Smoking Status Current every day smoker 02/04/25 14:43 Hx Tobacco Use Yes 02/04/25 14:43 Years Smoking Packs Smoked per Day Smoking Cessation Date was within the last 15 years Hx Smoking Cessation Date Hx Smoking Cessation Counseling Hematologic Medial History Hematologic Hx - reed or wind instrument tuner: Hematologic Medical Hx - time clock repairer Hx of Blood Transfusion No 02/04/25 14:43 [...] confused, unrespo /Reproduction History /Reproductive History - reed or wind instrument tuner: /Reproductive Hx- reed or wind instrument tuner Hx Now No 02/04/25 14:43 Gestational Age [...] MD Cosigner Signature: Date CC: ~ Signed [facility] Work Phone: 1(846) 794-896806-02-2025 History and physical note [facility] Medical Records Department [address] [place] [address] History & Physical Exam 02/14/25 1414 MR#: [id number] Acct: [id number] Name: SIA OLIVERA Rep #:[id number] : 1985 39 From: Desean Rodriguez MD PCP: KOSTA Gomez Status:REG S [place] Location: [place] [address] HPI - General General Date of Admission: 02/14/25 Date of Service: 02/14/25 Chief Complaint: Ventral hernia HPI Narrative SIA OLIVERA, is a 39 F who presents for elective repair of a ventral hernia just above the umbilicus. [facility] Medical History Wears glasses Wears dentures Depression [...] begin momentarily Charges/Coding Visit Charges Inpatient E&M: 49945 Init Hosp L2 02/14/25 1417 Cosigner Signature (if applicable): CC: ROTARY ENVELOPE MACHINE OPERATORJingC Hui Valdes; Dr. Desean Rodriguez MD~ Signed [facility]06-02-2025 [facility] Medical Records Department [address] [place] [address] History Physical Exam 02/14/25 1414 MR#: [id number] Acct: [id number] Name: SIA OLIVERA Rep #: [id number] : 1985 39 From: Desean Rodriguez MD PCP: Hui Valdes, KOSTA [place] [facility] [place] [address] HPI - General General Date of Admission: 02/14/25 Date of Service: 02/14/25 Chief Complaint: Ventral hernia HPI Narrative SIA OLIVERA, is a 39 F who presents for elective repair of a ventral hernia just above the umbilicus. [facility] Medical History Wears glasses Wears dentures Depression [...] momentarily Charges/Coding Visit Charges Inpatient E M: 99515 Init Hosp L2 02/14/25 1417 Cosigner Signature (if applicable): CC: ROTARY ENVELOPE MACHINE OPERATOR-C Hui Valdes; Dr. Desean [facility] Consult note [facility] Medical Records Department [address] [place] [address] Pre-Anesthesia Evaluation 02/14/25 1340 MR#: [id number] Acct: [id number] Name: SIA OLIVERA Rep #:[id number] : 1985 39 From: Guille Shin MD PCP: Hui Valdes, ROTARY ENVELOPE MACHINE OPERATOR-C Status:REG S DC Y Race: C Location: [facility]-1 ASA Classification* ASA Classification ASA Classification: [...] WITH MESH Anesthesia History Anesthesia History - reed or wind instrument tuner: Anesthesia History - reed or wind instrument tuner Hx Hospitalization No 02/04/25 14:43 Any Problems [...] take am of surgery PONV PONV - reed or wind instrument tuner: PONV - reed or wind instrument tuner Female Yes 02/04/25 14:43 HX of Motion [...] 02/14/25 13:25 Respiratory Assessment Respiratory Assessment - reed or wind instrument tuner: Respiratory Tract Infection Hx - reed or wind instrument tuner Hx Respiratory Tract Infection No 02/04/25 14:43 STOP Sleep Apnea STOP Sleep Apnea - reed or wind instrument tuner: STOP Sleep Apnea - reed or wind instrument tuner Hx Hypertension No 02/04/25 14:43 Hx Sleep [...] Tobacco Use History Tobacco Use History - reed or wind instrument tuner: Tobacco Use History - reed or wind instrument tuner Tobacco Use Smoking Status Current every day smoker 02/04/25 14:43 Hx Tobacco Use Yes 02/04/25 14:43 Years Smoking Packs Smoked per Day Smoking Cessation Date was within the last 15 years Hx Smoking Cessation Date Hx Smoking Cessation Counseling Hematologic Medial History Hematologic Hx - reed or wind instrument tuner: Hematologic Medical Hx - time clock repairer Hx of Blood Transfusion No 02/04/25 14:43 [...] confused, unrespo /Reproduction History /Reproductive History - reed or wind instrument tuner: /Reproductive Hx- reed or wind instrument tuner Hx Now No 02/04/25 14:43 Gestational Age [...] MD Cosigner Signature: Date CC: ~ Signed [facility]05-21-2025 Evaluation note* Diagnosis Onset Date Resolution Status Admit Date Ventral hernia acute February 02, 2025 12:47pm Ventral hernia acute February 14, 2025 12:52pm [facility] Work Phone: 1(144) 715-273405-21-2025 Progress [facility] [address] [place] [address] OFFICE VISIT Date of Service: 02/02/25 MR#: [id number] Acct: [id number] Name: SIA OLIVERA Rep #: [id number] : 1985 Provider: Dr. Griffin Rodriguez MD Age/Sex: 39/F Location: [facility] Status: Signed Intake Vital Signs 01/15/25 17:48 [...] General: cooperative, healthy appearing and comfortable [facility] Head: normal to inspection, normocephalic and [...] Cosigner Signature: Date (if applicable) CC: ~ [facility]05-21-2025 Progress note Author Desean Rodriguez [facility] Note Date/Time February 02, 2025 1:24p m [facility] [place] [address] OFFICE VISIT Date of Service: 02/02/25 MR#: [id number] Acct: [id number] Name: SIA OLIVERA Rep #: [id number] : 1985 Provider: Dr. Griffin Rodriguez MD Age/Sex: 39/F Location: [facility] Status: Signed Intake Vital Signs 01/15/25 17:48 [...] General: cooperative, healthy appearing and comfortable [facility] Head: normal to inspection, normocephalic and [...] Villafuerteignjosh Signature: Date (if applicable) CC: ~ [facility] [employer] Work Phone: 1(843) 373-252004-18-2025 NoteHNO ID: [id number] Author: HUI VALDES APRN.[facility] Service: ? Author Type: Nurse Practitioner Type: [...] Abs Lymph 1.00 - 4.00 k/uL 2.90 Bucks% % 9.4 Abs Bucks <0.87 k/uL (more content not included)...[facility] 12-31-2024 History of Present illness Narrative* PodlogHui ac APRN.PRESS WASHER - 12/31/2024 12:58 PM EDT 12/29/2024 Patient [...] in partial remission, most recent episode mixed ([facility]) 10/04/2019 Depression, major, recurrent, moderate ([facility]) 07/07/2018 Diet controlled gestational diabetes mellitus (GDM) in second trimester ([facility]) 07/05/2022 Drug use disorder remission since 06/2019; methamphetamines, marijuana Gastritis due to Helicobacter species 11/26/2021 Genital warts 1-29-09 Never seen again GERD without esophagitis 02/08/2022 Grand multiparity 09/11/2022 - history 4 prior SVDs, this will be delivery #5 - admission CBC 11.9 Group B Streptococcus carrier, antepartum ([facility]) 07/26/2021 Sensitive to Vanc Hemorrhoids Herpes simplex [...] tract infection in , antepartum, second trimester ([facility]) 03/28/2022 Urogenital trichomoniasis 2017 Not totally sure [...] Abs Lymph 1.00 - 4.00 k/uL 2.90 Bucks% % 9.4 Abs Bucks <0.87 k/uL 0.71 Eosin% % 1.8 Abs [...] Level: 4 - Moderate [facility] Telephone encounter Note * Telephone Encounter - Sonya Montelongo RN - 12/29/2024 8:06 AM EDT Please contact patient to schedule IUD removal. Sonya Montelongo RN [facility]04-16-2025 Miscellaneous Notes* Telephone Encounter - Sonya Montelongo RN - [...] you. Frances Parnell RN documented in [facility] Telephone encounter Note * Telephone Encounter - Temitope Bear APRN.CNM - 12/28/2024 4:59 PM EDT Order signed. Temitope Bear APRN.CNM [facility]04-15-2025 Telephone encounter Note* Telephone Encounter - Frances Parnell RN - 12/28/2024 4:42 PM EDT Received the following message from PSS: Patient is requesting to have their IUD removed. Please put in a order for this so that it can be scheduled. Order pending. Please file and then route to scheduling. Thank you. Frances Parnell RN [facility]02-03-2025 NoteHNO ID: [id number] Author: TEMITOPE BEAR APRN.CNM Service: ? Author Type: Superintendent Plant Protection Type: Progress Notes Filed: 10/18/2024 13:09 Note [...] L5 SAB0 IAB1 Ectopic0 Multiple0 Live Births5 Soubrette History LMP: 10/11/2024 (Approximate), IUD Age at Menarche: 9 Age at First : 21 Age at Menopause: Soubrette History Comments: Sexual Activity: Yes; Male Contraception: [...] SECTION HX EGD DIAGNOSTIC 01/17/2023 INDUCED BY [employer] 2008 FAMILY HISTORY Problem Relation Age of [...] discussed with the Patient or Patient's Authorized Cloth Reeler. As applicable, any other physician, advance practice provider, medical student, or other health professional student that will be observing or involved in the sensitive examination for educational or training purposes was discussed with the Patient or Authorized Cloth Reeler. The Patient or Authorized Cloth Reeler has agreed to proceed with the sensitive [...] BREAST: soft, non-tender, sy (more content not included)...[facility]02-03-2025 History of Present illness Narrative* Temitope Bear [...] L5 SAB0 IAB1 Ectopic0 Multiple0 Live Births5 Soubrette History LMP: 10/11/2024 (Approximate), IUD Age at Menarche: 9 Age at First : 21 Age at Menopause: Soubrette History Comments: Sexual Activity: Yes; Male Contraception: [...] discussed with the Patient or Patient's Authorized Cloth Reeler. As applicable, any other physician, advance practice provider, medical student, or other health professional student that will be observing or involved in the sensitive examination for educational or training purposes was discussed with the Patient or Authorized Cloth Reeler. The Patient or Authorized Cloth Reeler has agreed to proceed with the sensitive [...] external genitalia normal, normal Bartholin's glands, urethra, [place]'s glands, no vulvar lesions, no cervical lesions, [...] needed Temitope Bear APRN.CNM [facility] Telephone encounter Note * Telephone Encounter - Sharon Warren RN - 10/13/2024 7:47 PM EST Please see other MyChart request with med refills in it. [facility]01-29-[facility] Miscellaneous Notes* Telephone Encounter - Sharon Warren RN - 10/13/2024 7:47 PM EST Please see other MyChart request with med refills in it. documented in [facility]25 Telephone encounter Note * Telephone Encounter - Sharon Warren RN - 10/13/2024 7:41 PM EST Pt sends in MyChart request for med refills. Pt has a [facility] pharmacy in [place] as preferred pharmacy. Pt lives in [place] and last scripts went to [facility]. Called and confirmed with pt that was an error and she would like prescriptions to go to [facility]. The last office visit in the department: [...] Warren RN October 13, 2024 7:[address] [facility]01-29-2025 Miscellaneous Notes* Telephone Encounter - Sharon Warren RN - 10/13/2024 7:41 PM EST Pt sends in MyChart request for med refills. Pt has a [facility] pharmacy in [place] as preferred pharmacy. Pt lives in [place] and last scripts went to [facility]. Called and confirmed with pt that was an error and she would like prescriptions to go to [facility]. The last office visit in the department: [...] 13, 2024 7:41 PM documented in [facility]-2024 Telephone encounter Note * Telephone Encounter - Rebecca Rhodes - 08/13/2024 3:44 PM EST POPULATION HEALTH NAVIGATION OUTREACH Action/ 1st attempt, call placed to pt for PT consult for OAB (overactive bladder) [N32.81]. Order is date07/05/24. Pt declined to [facility] at this time. Pt plans to go [...] Rebecca Rhodes August 13, 2024 3:[address] [facility]11-29-2024 Miscellaneous Notes* Telephone Encounter - Rebecca Rhodes - 08/13/2024 3:44 PM EST POPULATION HEALTH NAVIGATION OUTREACH Action/ 1st attempt, call placed to pt for PT consult for OAB (overactive bladder) [N32.81]. Order is 07/05/24. Pt declined to [facility] at this time. Pt plans to go [...] 13, 2024 3:44 PM documented in this [facility]-2024 Telephone encounter Note * Telephone Encounter - [...] Whitehead MA July 26, 2024 7:[address] [facility]11-11-2024 Miscellaneous Notes* Telephone Encounter - Lourdes Whitehead [...] 26, 2024 7:32 PM documented in this encounterMount [facility]10-[facility]-2024 NoteHNO ID: [id number] Author: HUI VALDES APRN.PRESS WASHER Service: ? Author Type: Nurse Practitioner Type: [...] to pelvic floor therapy but moved from [place] which is were she was going to [...] nausea, vomiting, or diarrhea : See HPI MARINE CARGO SPECIALIST: Negative for abnormal vaginal bleeding, abnormal vaginal [...] with normal S1 and (more content not included)...[facility]10-21-2024 History of Present illness Narrative* Podlogar, JAZ Ames.PRESS WASHER - 07/05/2024 1:02 PM EDT 07/05/2024 Patient [...] to pelvic floor therapy but moved from [place] which is were she was going to [...] nausea, vomiting, or diarrhea : See HPI MARINE CARGO SPECIALIST: Negative for abnormal vaginal bleeding, abnormal vaginal [...] Level: 4 - Moderate documented in this [facility]04-[facility]-2024 Miscellaneous Notes* Telephone Encounter - Michelle Osborn LPN - 12/31/2023 7:45 AM EDT Sent to covering provider documented in this [facility]Mount [facility]02-23-2024 NoteHNO ID: [id number] Author: JOANNA WILKES MD Service: ? 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07-12-2023 NoteHNO ID: [id number] Author: Esme Grace MD Service: ? Author [...] SECTION HX EGD DIAGNOSTIC 01/17/2023 INDUCED BY [employer] 2008 FAMILY HISTORY: FAMILY HISTORY Problem Relation [...] rarely Drug use: N (more content not included)...[facility]07-12-2023 History of Present illness Narrative* Esme [...] 26, 2023 TIME: 2:13 PM PAGER/CONTACT #: [phone] [facility]23 History of Past illness Narrative* Problem Noted [...] of this encounter (statuses as of 07/01/2023) [facility]05-05-[facility] History of Past illness Narrative* Problem Noted [...] of this encounter (statuses as of 12/31/2023) [facility]05-05-[facility] Surgical operation note* Operative Report - Esme Grace MD - 01/17/2023 8:35 AM EDT OPERATIVE/PROCEDURE REPORT LOG ID: [id number] Surgery/Procedure Date: Incision/Procedure Start Time: 8:42 AM Incision Close/Procedure End Time: 8:45 AM Surgeon(s)/Proceduralist(s) and Color Mixer(s): Surgeon(s) and Role: * Esme Grace MD [...] 8:51 AM PAGER/CONTACT #: documented in this encounterMount [facility]. [facility]05-[facility]-2023 History and physical note * Julio JAZ Dial.PRESS WASHER - 01/17/2023 8:30 AM EDT . HISTORY [...] cream by RECTAL route twice daily. 01/10/2023 Tbcxfkuu-Bp-Bei-Fe-FA tab Take 1 tablet by mouth once [...] requiring medication, no history of angina, CHF, HI, cardiac surgery or stents. Denies rest pain, gangrene or revascularization/amputation for PVD. No history of cardiovascular symptoms or problems. No history of angina, CHF, HI, cardiac surgery or stents. Denies chest pain [...] which included preparing to see the patient, zvja-oh-degh patient care, completing clinical documentation, obtaining and/or reviewing separately obtained history, performing a medically appropriate examination, and counseling and educating the patient/family/caregiver. SIGNATURE: Julio Dila APRN.CNP PATIENT NAME: Sia Olivera DATE: January 17, 2023 TIME: 7:22 AM PAGER/CONTACT #: documented in this encounterMount [facility]. [facility]04-19-2023 NoteHNO ID: [id number] Author: Esme Grace MD Service: ? Author [...] Procedure Laterality Date SECTION HX INDUCED BY [employer] 2008 FAMILY HISTORY: FAMILY HISTORY Problem Relation [...] Take 1 capsule by mouth once daily. Wezywjme-Ug-Jwr-Fe-FA tab Take 1 tablet by mouth once daily. (Patient not taking: Reported on 01/01/2023) No current facility-administered medications for this visit. ALLERGIES: ALLERGIES Allergen Reactions Amoxicillin Unknown WAS TOLD BY MOM COMPLETE REVIEW OF SYSTEMS: Review of Systems Constitutional: Negative for chi (more content not included)...[facility]04-19-2023 Miscellaneous Notes* Telephone Encounter - Ese Contreras MA - 01/01/2023 3:55 PM EDT EGD scheduled for 01/17/2023 at 8:30 am. Prep/instructions given to patient at checkout. Ese Contreras MA documented in this encounterMount [facility]. [facility]04-19-2023 Miscellaneous Notes* Addendum Note - Ese Contreras MA - 01/01/2023 3:54 PM EDTAddended by: ESE CONTRERAS on: 01/01/2023 03:54 PM Modules accepted: Orders documented in this encounterMount [facility]. [facility]04-19-2023 History of Present illness Narrative* Esme Grace [...] Take 1 capsule by mouth once daily. Kaswnqvf-Zs-Gng-Fe-FA tab Take 1 tablet by mouth once [...] 01, 2023 TIME: 2:25 PM PAGER/CONTACT #: [phone] documented [address] [facility]03-28-2023 History of Present illness Narrative* Shaun Carlin [...] Take 1 capsule by mouth once daily. Cbsgfaua-Mu-Ave-Fe-FA tab Take 1 tablet by mouth once [...] APPLICATOR Shaun Carlin MD documented in this encounterMount [facility]. [facility]03-28-2023 History of Present illness Narrative* Alysha Ruff APRN.PRESS WASHER - 12/10/2022 9:45 AM EDT Sia Olivera is a 37 year old year old female who presents for a MARINE CARGO SPECIALIST problem visit for IUD check. Mirena IUD [...] placed. Alysha Ruff APRN.CNP documented in this [facility]02-17-2023 Instructions* Patient Instructions* Alysha Ruff [...] experiencing severe pelvic pain. documented in this encounterMount [facility]. [facility]02-17-2023 Procedure note* Alysha Ruff APRN.CNP - 11/01/2022 [...] (exact date). Informed Consent Consent Obtained: Written [place] Protocol A moment to CARE was completed. [...] yes IUD type: Mirena IUD Lot #: [id number] Expiration Date: 07/16/2024 Strings trimmed. Post-Procedure Details: Patient tolerated the procedure well with no immediate complications Patient Education: side effects discussed with patient including irregular spotting. Patient to follow-up PRN any problems. SIGN OUT All instruments, equipment, possible retained foreign bodies accounted for. Post-procedure follow-up management communicated and Plan of Care Visit completed when applicable Alysha Ruff APRN.PRESS WASHER documented in this [facility]Mount [facility]02-[facility]-2023 History of Present illness Narrative* Tricia Rangel MD - 10/23/2022 3:14 PM EST VISIT Sia Olivera is a 37 year old year old here for visit. Delivery Summary: c/s on 09/12 complicated by chtn, no meds ROS/ Recovery: Feeding: Breast and bottle feeding problems: None Menses since delivery: spotting Menstrual pattern prior to : Regular periods [place] since delivery: Resumed Depression: denies symptoms of [...] external genitalia normal, normal Bartholin's glands, urethra, [place]'s glands, no vulvar lesions, no cervical lesions, [...] pcp Tricia Rangel MD documented in this [facility]-2023 Miscellaneous Notes* Telephone Encounter - Diane Lee - 10/22/2022 8:56 AM EST Pt LVM requesting to [facility] appt charly/ Kim for hernia. Called back PT no answer LVM documented in this [facility]Mount [facility]. [facility]01-24-2023 History of Present illness Narrative* Shaun Carlin [...] 1 tablet by mouth every 6 hours. Zazjoacs-Jd-Iyb-Fe-FA tab Take 1 tablet by mouth once [...] visit Shaun Carlin MD documented in this [facility]Mount [facility]. [facility]01-[facility]-2023 Miscellaneous Notes* Telephone Encounter - Michelle Osborn LPN - 09/19/2022 9:23 AM EST Requested Prescriptions Pending Prescriptions Disp Refills SUMAtriptan (IMITREX) 50 mg tablet 12 tablet 2 Sig: Take 1 tablet by mouth as needed. documented in this encounterMount [facility]. [facility]12-28-2022 History of Past illness Narrative* Problem Noted [...] of this encounter (statuses as of 10/08/2022) [facility] History of Past illness Narrative* Problem Noted [...] of this encounter (statuses as of 10/22/2022) [facility] History of Past illness Narrative* Problem Noted [...] of this encounter (statuses as of 10/23/2022) [facility] History of Past illness Narrative* Problem Noted [...] of this encounter (statuses as of 11/01/2022) [facility] History of Past illness Narrative* Problem Noted [...] of this encounter (statuses as of 11/07/2022) [facility] History of Past illness Narrative* Problem Noted [...] of this encounter (statuses as of 12/10/2022) [facility] of Past illness Narrative* Problem Noted [...] of this encounter (statuses as of 12/10/2022) [facility] History of Past illness Narrative* Problem Noted [...] of this encounter (statuses as of 01/02/2023) [facility] History of Past illness Narrative* Problem Noted [...] of this encounter (statuses as of 01/02/2023) [facility] of Past illness Narrative* Problem Noted [...] of this encounter (statuses as of 01/18/2023) [facility] History of Past illness Narrative* Problem Noted [...] of this encounter (statuses as of 03/27/2023) [facility]12-21-[facility] Miscellaneous Notes* Quick Notes - Tricia Rangel MD - 09/04/2022 2:42 PM EST Good fm Labor precautions Gdma1- fsbg reviewed only 3 abnormal values Continue diet Weekly nst Reactive nst iol at 38 wga scheduled Hsv- valtrex suppression Gbs positive- abx in labor Chtn- no elevated bps noted, no meds Methuen- less than 40 y/o no testing noted .Tricia Rangel MD documented in this encounterMount [facility]. [facility]12-21-2022 Nurse Note* Radha Moore MA - 09/04/2022 2:22 PM EST Movement? Active baby Vaginal Bleeding: NO Vaginal fluid leakage of fluid: NO Contractions: Mayes-Mckniley type Edema: Negative Radha Moore MA documented in this encounterMount [facility]. [facility]12-16-2022 Miscellaneous Notes* Quick Notes - Flora Browning MD - 08/30/2022 2:43 PM EST EFW 76%, darlyn 9, BPP 8/8 BS look good, 1 FBS of 98 IOL pm of 09/09 at 38 wks NST minor next wk Flora Browning MD, MD documented in this encounterMount [facility]. [facility]12-16-2022 Nurse Note* Radha Moore MA - 08/30/2022 2:36 PM EST Movement? Active baby Vaginal Bleeding: NO Vaginal fluid leakage of fluid: NO Contractions: Mayes-Mckinley type Edema: Trace Radha Moore MA documented in this encounterMount [facility]. [facility]12-09-2022 Miscellaneous Notes* Quick Notes - Flora Browning [...] Moderate Flora Browning MD, documented in this encounterMount [facility]. [facility]12-09-2022 Nurse Note* Marielena Vidales MA - 08/23/2022 2:15 PM EST Movement? Active baby Vaginal Bleeding: NO Vaginal fluid leakage of fluid: NO Contractions: no contractions Edema: Negative Marielena Vidales MA documented in this encounterMount [facility]. [facility]12-[facility]-2022 Miscellaneous Notes* Telephone Encounter - Flora Browning [...] Location Dept Phone 08/23/2022 2:00 PM NST [facility] [phone] 08/23/2022 2:30 PM FLORA BROWNING [facility] [phone] 08/30/2022 2:15 PM ULTRASOUND [facility] [phone] 08/30/2022 3:30 PM FLORA BROWNING [facility] [phone] 09/04/2022 2:00 PM [facility]ST [facility] [phone] 09/04/2022 2:30 PM TRICIA RANGEL [facility] [phone] 10/08/2022 11:00 AM SHAUN CARLIN [facility] [address] Str [phone] [facility] Miscellaneous Notes* Quick Notes - Flora Browning MD - 08/15/2022 3:00 PM EST BS p BF and lunch creeping up, reviewed approp meals and fu next wk, ngozi since this time covered aneating holiday NST R, repeat next wk Flora Browning MD, MD documented [facility]22 Miscellaneous Notes* Addendum Note - Yael Mahmood [...] feed Yael Hammond APRN.CNM documented in this [facility]Mount [facility]-2022 Instructions* Patient Instructions* Yael Mahmood APRN.CNM - [...] mom can give - Talk to your managed security sales consultant, nurse, and/or doctor while at the hospital about - Ask about local support groups and resources that you can use if you have questions after you go home Please call the office before going to the hospital. If you are , go to the ER at the [facility] main campus. Do not go to the outlying ER s ([place], [place] or [place]). If you need to go to an ER and cannot or will not go downtown, please use one of [facility] s ERs (not [facility], [place] or [facility]). documented in this [facility]11-22-2022 Nurse Note* Radha Moore MA - 08/06/2022 1:04 PM EST Movement? Active baby Vaginal Bleeding: NO Vaginal fluid leakage of fluid: NO Contractions: no contractions Edema: Negative Radha Moore MA documented in this [facility]11-18-2022 Miscellaneous Notes* Quick Notes - Flora Browning MD - 08/02/2022 1:53 PM EST NST R, repeat next wk FBS now nl after changing her p dinner snack Test rx rewritten to reflex qID testing US in 2 wks Flora Browning MD, documented in this [facility]11-18-2022 Nurse Note* Radha Moore MA - 08/02/2022 1:25 PM EST Movement? Active baby Vaginal Bleeding: NO Vaginal fluid leakage of fluid: NO Contractions: Mayes-Mckinley type Edema: Trace Radha Moore MA documented in this [facility]11-04-2022 Instructions* Patient Instructions* Honey Angel [...] not go downtown, please use one of [facility] s ERs (not [place], [place] or [...] ready for the real thing. What do Mayes Mckinley contractions feel like? Mayes Mckinley contractions can be described as tightening [...] to 10 movements in one hour. References [employer]. False Labor Accessed 11/23/2015. [employer]. Contractions Accessed 11/23/2015. Copyright 3990-0397 [facility]. All rights reserved This information is provided by the [facility] and is not intended to replace the medical advice of your doctor or health care provider. Please consult your health care provider for advice about a specific medical condition. For additional health information, please contact the Center for Consumer Health Information at the [facility] or toll-free extension [phone]. If you prefer, you may visit [email or web address]/ or [email or web address]. This document was last reviewed on: 2015 index#0624 is the Best Feeding Your Baby's stomach [...] mom can give - Talk to your managed security sales consultant, nurse, and/or doctor while at the hospital about - Ask about local support groups and resources that you can use if you have questions after you go home documented in this [facility]11-04-2022 Miscellaneous Notes* Quick Notes - [...] NST Honey Angel PA-C documented in this [facility]11-04-2022 Nurse Note* Eliz Friedman MA - 07/19/2022 11:17 AM EDT Movement? Active baby Vaginal Bleeding: NO Vaginal fluid leakage of fluid: NO Contractions: no contractions Edema: Negative Eliz Friedman MA documented in this [facility]10-21-2022 Instructions* Patient Instructions* Honey Angel PA-C - 07/05/2022 11:02 AM EDT Please call the office before going to the hospital. If you are , go to the ER at the [facility] main [facility]. Do not go to the outlying ER s ([place], [place] or [place]). If you need to go to an ER and cannot or will not go downtown, please use one of [place] [facility] s ERs (not [facility], [place] or [facility]). COUNTING YOUR BABY'S MOVEMENTS Your Baby's regular [...] have false labor pains, also known as Mayes Mckinley contractions. These irregular uterine contractions are [...] to 10 movements in one hour. References [employer]. False Labor Accessed 11/23/2015. [employer]. Contractions Accessed 11/23/2015. Copyright 5830-8334 [facility]. All rights reserved This information is provided by the [facility] and is not intended to replace the medical advice of your doctor or health care provider. Please consult your health care provider for advice about a specific medical condition. For additional health information, please contact the Center for [employer] Health Information at the [facility] or toll-free extension [phone]. If you prefer, you may visit [email or web address]/ or [email or web address]. This document was last reviewed on: 2015 index#6617 is the Best Feeding Your Baby's stomach [...] mom can give - Talk to your managed security sales consultant, nurse, and/or doctor while at the hospital about - Ask about local support groups and resources that you can use if you have questions after you go home Type of Remedy: Constipation Safe Medications to Take During Methylcellulose fiber (Citrucel ) Docusate (Colace ) psyllium (Fiberall , Metamucil ) polycarbophil (FiberCon ) polyethylene glycol (MiraLAX )* *Occasional use only documented in this encounterMount [facility]. [facility]10-21-2022 Miscellaneous Notes* Quick Notes - Honey Angel [...] US Honey Angel PA-C documented in this encounterMount [facility]. [facility]10-21-2022 Nurse Note* Marielena Vidales MA - 07/05/2022 10:26 AM EDT Movement? Active baby Vaginal Bleeding: NO Vaginal fluid leakage of fluid: NO Contractions: no contractions Edema: Trace Marielena Vidales MA documented in this encounterMount [facility]. [facility]10-21-2022 History of Present illness Narrative* Christina Barlow RN - 07/05/2022 9:32 AM EDT DIABETES SELF-MANAGEMENT EDUCATION AND SUPPORT Location: [place] Type of visit: Virtual (with video) individual [...] Race/Ethnic Origin: White/ Does your culture or bahai require any of the following: No cultural/holiness practices affecting DM Do you have problems [...] Take 1 tablet by mouth twice daily. Qtyswbxd-Le-Atw-Fe-FA tab Take 1 tablet by mouth once [...] 9:32 AM PAGER: [phone] [address] [facility]10-21-2022 History of Present illness Narrative* Christina Ruiz RD - 07/05/2022 8:04 AM EDT DIABETES SELF-MANAGEMENT EDUCATION AND SUPPORT Location: [place] Type of visit: Virtual (with video) individual [...] Take 1 tablet by mouth twice daily. Nzjbvhwk-Cz-Ocv-Fe-FA tab Take 1 tablet by mouth once [...] medical record. SIGNATURE: Christina Ruiz MS RD [facility] PATIENT NAME: Sia Olivera DATE: July 05, 2022 TIME: 8:04 AM PAGER: documented in this encounterMount [facility]. [facility]10-14-2022 Miscellaneous Notes* Telephone Encounter - Celina Subramanian RN - 06/28/2022 3:41 PM EDT Aware of results and recommendations from Honey. Will roll picker the equipment and keep a log [...] with diet only (no medications). She can roll picker her supplies at her local pharmacy. [...] based on patient requirements. documented in this encounterMount [facility]. [facility]10-11-2022 Miscellaneous Notes* Telephone Encounter - Celina Subramanian RN - 06/25/2022 4:23 PM EDT Aware of results and will get the 3 hr done on Friday. Aware to fast for 8 hr and to take a snack for after the test. Celina Subramanian RN 1hr GTT:153 documented in this [facility]Mount [facility]10-07-2022 Instructions* Patient Instructions* Honey Angel PA-C - 06/21/2022 1:30 PM EDT Please call the office before going to the hospital. If you are , go to the ER at the [facility] main [facility]. Do not go to the outlying ER s ([place] or [place]). If you need to go to an ER and cannot or will not go downtown, please use one of [place] [facility] s ERs (not [facility], [place] or [facility]). COUNTING YOUR BABY'S MOVEMENTS Your Baby's regular [...] have false labor pains, also known as Mayes Mckinley contractions. These irregular uterine contractions are perfectly normal and might start to occur from your fourth month of . They are your body s way of getting ready for the real thing. What do Mayes Mckinley contractions feel like? Mayes Mckinley contractions can be described as tightening [...] to 10 movements in one hour. References [employer]. False Labor Accessed 11/23/2015. [employer]. Contractions Accessed 11/23/2015. Copyright 6958-5558 [facility]. All rights reserved This information is provided by the [facility] and is not intended to replace the medical advice of your doctor or health care provider. Please consult your health care provider for advice about a specific medical condition. For additional health information, please contact the Center for Consumer Health Information at the [facility] or toll-free extension [phone]. If you prefer, you may visit [email or web address]/ or [email or web address]. This document was last reviewed on: 2015 index#1996 is the Best Feeding Your Baby's stomach [...] mom can give - Talk to your managed security sales consultant, nurse, and/or doctor while at the hospital about - Ask about local support groups and resources that you can use if you have questions after you go home documented in this encounterMount [facility]. [facility]10-07-2022 Miscellaneous Notes* Quick Notes - Honey Angel PA-C - 06/21/2022 1:20 PM EDT + FM. No leaking/bleeding/contractions. Planning . PPBC - discussed. Third trimester labs ordered. GUERO and PTL precautions discussed. Hx HSV: plan suppression at 36 weeks. AMA, Obesity: Plan for q6nlbvq growth US at 32 weeks, weekly NSTs at 36 weeks. rtc 2 weeks Honey Angel PA-C documented in this encounterMount [facility]. [facility]10-07-2022 Nurse Note* Radha Moore MA - 06/21/2022 1:14 PM EDT Movement? Active baby Vaginal Bleeding: NO Vaginal fluid leakage of fluid: NO Contractions: no contractions Edema: Negative Radha Moore MA documented in this encounterMount [facility]. [facility]08-26-2022 Instructions* Patient Instructions* Honey Angel PA-C - [...] not go downtown, please use one of [facility] s ERs (not [place], [place] or [...] have false labor pains, also known as Octaivo Mckinley contractions. These irregular uterine contractions are perfectly normal and might start to occur from your fourth month of . They are your body s way of getting ready for the real thing. What do Octavio Mckinley contractions feel like? Mayes Mckinley contractions can be described as tightening [...] to 10 movements in one hour. References [employer]. False Labor Accessed 11/23/2015. [employer]. Contractions Accessed 11/23/2015. Copyright 0841-2863 [facility]. All rights reserved This information is provided by the [facility] and is not intended to replace the medical advice of your doctor or health care provider. Please consult your health care provider for advice about a specific medical condition. For additional health information, please contact the Center for Consumer Health Information at the [facility] or toll-free extension [phone]. If you prefer, you may visit [email or web address]/ or [email or web address]. This document was last reviewed on: 2015 index#8346 is the Best Feeding 1. Bntj-sz-wbfx is best for your baby A. Your [...] baby, no the clock documented in this encounterMount [facility]. [facility]08-26-2022 Nurse Note* Anat Arce LPN - 05/10/2022 8:38 AM EDT Movement? Active baby Vaginal Bleeding: NO Vaginal fluid leakage of fluid: NO Contractions: no contractions Edema: Negative Anat Arce LPN documented in this encounterMount [facility]. [facility]08-26-2022 Miscellaneous Notes* Quick Notes - Honey Angel [...] weeks Honey Angel PA-C documented in this encounterMount [facility]. [facility]08-22-2022 History of Present illness Narrative* Shaun Carlin [...] 8 OUNCES OF LIQUID AND TAKE DIRECTED. Zgstbhfi-Dm-Ejz-Fe-FA tab Take 1 tablet by mouth once [...] <130/80 Shaun Carlin MD documented in this encounterMount [facility]. [facility]07-22-2022 Miscellaneous Notes* Addendum Note - Honey Angel [...] weeks Honey Angel PA-C documented in this encounterMount [facility]. [facility]07-22-2022 History of Present illness Narrative* Shaun Carlin [...] 8 HOURS NEEDED FOR NAUSEA AND VOMITING Eatynqez-Vh-Quv-Fe-FA tab Take 1 tablet by mouth once [...] monitor Shaun Carlin MD documented in this encounterMount [facility]. [facility]07-22-2022 Instructions* Patient Instructions* Honey Angel PA-C - 04/05/2022 9:20 AM EDT Please call the office before going to the hospital. If you are , go to the ER at the [facility] main [facility]. Do not go to the outlying ER s ([place] or [place]). If you need to go to an ER and cannot or will not go downtown, please use one of [facility] s ERs (not [facility], [place] or [facility] is the best feeding Why is Important [...] both mother and baby documented in this encounterMount St. [facility]07-22-2022 Nurse Note* Eliz Friedman MA - 04/05/2022 8:47 AM EDT Movement? Too early Vaginal Bleeding: Yes provider notified Vaginal fluid leakage of fluid: NO Contractions: no contractions Edema: Negative Eliz Friedman MA documented in this encounterMount [facility]. [facility]07-14-2022 History of Past illness Narrative* Problem Noted [...] of this encounter (statuses as of 09/20/2022) [facility] of Past illness Narrative* Problem Noted [...] of this encounter (statuses as of 10/04/2022) [facility] Miscellaneous Notes* Telephone Encounter - Ольга Cook APRN.CNP - 02/21/2022 12:18 PM EDT .The following approved medication requests have been transmitted electronically. Signed Prescriptions Disp Refills ondansetron (ZOFRAN) 8 mg tablet 30 tablet 1 Sig: Take 1 tablet by mouth every 8 hours as needed for nausea/vomiting. Ольга Cook APRN.CNP documented in this encounterMount [facility]. [facility]06-02-2022 Instructions* Patient Instructions* Flora Browning MD - [...] your questions and concerns. documented in this encounterMount [facility]. [facility]06-02-2022 History of Present illness Narrative* Flora Browning [...] Decision Making Level: 4 - Moderate Flora Bronwing MD, MD documented in this encounterMount [facility]. [facility]05-27-2022 History of Present illness Narrative* Shaun Carlin [...] severe Shaun Carlin MD documented in this encounterMount [facility]. [facility]05-20-2022 Miscellaneous Notes* Telephone Encounter - Michelle Lopeztoan WARREN - 02/01/2022 7:57 AM EDT Pending Prescriptions Disp Refills LISINOPRIL 10 MG TABLET 90 tablet 0 Sig: TAKE 1 TABLET BY MOUTH EVERY DAY THEA: documented in this encounterMount [facility]. [facility]05-09-2022 Miscellaneous Notes* Telephone Encounter - Celina Subramanian RN - 01/21/2022 10:11 AM EDT Aware of results and transferred to scheduling. HCG : 1,620. US pended. Thanks, Celina Subramanian RN documented in this encounterMount [facility]. [facility]05-06-2022 History of Present illness Narrative* Rolan Dexter [...] Symmetrical and No masses, tenderness, nipple discharge MARINE CARGO SPECIALIST: Vulva - no lesions, skin intact with [...] SCREEN Rolan Dexter DO documented in this encounterMount [facility]. [facility]04-26-2022 History of Present illness Narrative* Shaun Carlin [...] CAPSULE Shaun Carlin MD documented in this encounterMount [facility]. [facility]04-26-2022 History of Present illness Narrative* had bronchitis [...] denies any wheezing. [facility] Work Phone: [phone]) 401-488004-25-2022 Miscellaneous Notes* Telephone Encounter - Chelsea Winters Ma - 01/07/2022 10:38 AM EDT Patient phones requesting refills as follows: Pending Prescriptions Disp Refills SUMATRIPTAN 50 MG TABLET 12 tablet 5 Sig: TAKE 1 TABLET BY MOUTH NEEDED FOR MIGRAINE HEADACHE(SEE INSTRUCTIONS) THEA: Yes Please review and advise. Chelsea Winters Ma documented in this encounterMount [facility]. [facility]03-14-2022 History of Past illness Narrative* Problem Noted [...] of this encounter (statuses as of 02/08/2022) [facility] Narrative* Problem Noted [...] of this encounter (statuses as of 02/14/2022) [facility] Narrative* Problem Noted [...] of this encounter (statuses as of 02/14/2022) [facility] Narrative* Problem Noted [...] of this encounter (statuses as of 02/21/2022) [facility] Narrative* Problem Noted [...] of this encounter (statuses as of 03/11/2022) [facility] illness Narrative* Problem Noted [...] of this encounter (statuses as of 03/25/2022) [facility] Narrative* Problem Noted [...] of this encounter (statuses as of 04/05/2022) [facility] Narrative* Problem Noted [...] of this encounter (statuses as of 04/05/2022) [facility] Narrative* Problem Noted [...] of this encounter (statuses as of 04/16/2022) [facility] Narrative* Problem Noted [...] of this encounter (statuses as of 04/24/2022) [facility] Narrative* Problem Noted [...] of this encounter (statuses as of 04/29/2022) [facility] Narrative* Problem Noted [...] of this encounter (statuses as of 05/03/2022) [facility] Narrative* Problem Noted [...] of this encounter (statuses as of 05/06/2022) [facility] Narrative* Problem Noted [...] of this encounter (statuses as of 05/07/2022) [facility] Narrative* Problem Noted [...] of this encounter (statuses as of 05/10/2022) [facility] Narrative* Problem Noted [...] of this encounter (statuses as of 05/21/2022) [facility] Narrative* Problem Noted [...] of this encounter (statuses as of 05/21/2022) [facility] Narrative* Problem Noted [...] of this encounter (statuses as of 06/10/2022) [facility] Narrative* Problem Noted [...] of this encounter (statuses as of 06/19/2022) [facility] Narrative* Problem Noted [...] of this encounter (statuses as of 06/21/2022) [facility] Narrative* Problem Noted [...] of this encounter (statuses as of 06/25/2022) [facility] Narrative* Problem Noted [...] of this encounter (statuses as of 06/28/2022) [facility] Narrative* Problem Noted [...] of this encounter (statuses as of 07/01/2022) [facility] Narrative* Problem Noted [...] of this encounter (statuses as of 07/05/2022) [facility] Narrative* Problem Noted [...] of this encounter (statuses as of 07/05/2022) [facility] Narrative* Problem Noted [...] of this encounter (statuses as of 07/05/2022) [facility] Narrative* Problem Noted [...] of this encounter (statuses as of 07/18/2022) [facility] Narrative* Problem Noted [...] of this encounter (statuses as of 07/19/2022) [facility] Narrative* Problem Noted [...] of this encounter (statuses as of 07/19/2022) [facility] Narrative* Problem Noted [...] of this encounter (statuses as of 07/31/2022) [facility] Narrative* Problem Noted [...] of this encounter (statuses as of 08/02/2022) [facility] Narr[facility]* Problem Noted [...] of this encounter (statuses as of 08/02/2022) [facility] Narr[facility]* Problem Noted [...] of this encounter (statuses as of 08/06/2022) [facility] Narrative* Problem Noted [...] of this encounter (statuses as of 08/06/2022) [facility] Narrative* Problem Noted [...] of this encounter (statuses as of 08/15/2022) [facility] Narrative* Problem Noted [...] of this encounter (statuses as of 08/16/2022) [facility] Narrative* Problem Noted [...] of this encounter (statuses as of 08/22/2022) [facility] Narrative* Problem Noted [...] of this encounter (statuses as of 08/23/2022) [facility] Narrative* Problem Noted [...] of this encounter (statuses as of 08/23/2022) [facility] Narrative* Problem Noted [...] of this encounter (statuses as of 08/30/2022) [facility] Narrative* Problem Noted [...] of this encounter (statuses as of 08/30/2022) [facility] Narrative* Problem Noted [...] of this encounter (statuses as of 09/04/2022) [facility] Narrative* Problem Noted [...] of this encounter (statuses as of 09/04/2022) [facility] Narrative* Problem Noted [...] of this encounter (statuses as of 01/07/2022) [facility] Narrative* Problem Noted [...] of this encounter (statuses as of 01/11/2022) [facility] Narrative* Problem Noted [...] of this encounter (statuses as of 01/18/2022) [facility] Narrative* Problem Noted [...] of this encounter (statuses as of 01/21/2022) [facility] Narrative* Problem Noted [...] of this encounter (statuses as of 02/01/2022) 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 Status:REG S DC Y Race: C Location: [facility]18-1 Anesthesia Postop Eval I Sum Postop Eval Completion status Anesthesia document: Postop Eval 1 completed: Yes Anesthesia Postop Eval I Summary Anesthesia Postop Eval I Summary: Anesthesia Postop Eval I: Assessment Summary Airway patent Yes 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 Spontaneous unlabored Yes 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 respirations Mental status Awake,Calm 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 nausea No 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 Vomiting No 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 Anesthesia Postop Eval I: Fluid Summary Crystalloid volume administer 1,000 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 (ml) Colloids volume administered ( ml) Blood Product volume administered (ml) Total IV fluid infused 1,000 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 Anesthesia Postop Eval I: Summary Notes Anesthesia Complication No 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 Anesthesia Complication Comment: Post-operative progress note Anesthesia: Postop Eval II Evaluation Mental status: Awake Pain Level: 0 nausea: No Vomiting: No Complications Anesthesia Complication: No 02/14/251636 <Electronically signed by Guille Shin MD> Date _ Guille Shin MD Cosigner Signature: Date CC: ~ Signed [facility] Work Phone: Evaluation note* Diagnosis Acute bronchitis, unspecified organism- Primary Acute serous otitis media of left ear, recurrence not specified Acute diffuse otitis externa of left ear [facility] Work Phone: Evaluation note* Diagnosis Migraine without aura and without status migrainosus, not intractable Migraine without aura, without mention of intractable migraine without mention of status migrainosus [facility] Diagnosis Hypertension, essential- Primary Unspecified essential hypertension Bronchitis Bronchitis, not specified as acute or chronic [facility] Diagnosis Women's annual routine gynecological examination- Primary Routine cervical smear Screening for malignant neoplasm of the cervix Secondary amenorrhea Absence of menstruation [facility] Diagnosis care of multigravida, antepartum- Primary [facility]* Diagnosis Hypertension, essential Unspecified essential hypertension [facility] Diagnosis Hypertension, essential- Primary Unspecified essential hypertension GERD without esophagitis Esophageal reflux at early stage state, incidental Nausea and vomiting of , antepartum Unspecified vomiting of , antepartum Migraine without aura and without status migrainosus, not intractable Migraine without aura, without mention of intractable migraine without mention of status migrainosus [facility] Diagnosis Amenorrhea, secondary- Primary Absence of menstruation Nausea and vomiting during [facility] Diagnosis care of multigravida, antepartum [facility] Diagnosis Nausea/vomiting in - Primary Unspecified vomiting of , unspecified as to episode of care [facility] Diagnosis Secondary amenorrhea Absence of menstruation [facility]* Diagnosis Nausea/vomiting in Unspecified vomiting of , unspecified as to episode of care [facility]* Diagnosis Multigravida of advanced maternal age [...] [facility]* Diagnosis Hypertension, essential- Primary Unspecified essential hypertension Preexisting hypertension complicating , antepartum Benign essential hypertension antepartum GERD without esophagitis Esophageal reflux Nausea and vomiting of , antepartum Unspecified vomiting of , antepartum Periumbilical hernia Umbilical hernia without mention of obstruction or gangrene documented in this encounter [facility]* Diagnosis Constipation, unspecified constipation type documented in this encounter [facility] note* Diagnosis Nausea/vomiting in Unspecified vomiting of , unspecified as to episode of care documented in this encounter [facility] note* Diagnosis PUD (peptic ulcer disease)- Primary Peptic ulcer, unspecified site, unspecified as acute or chronic, without mention of hemorrhage, perforation, or obstruction GERD without esophagitis Esophageal reflux Preexisting hypertension complicating , antepartum Benign essential hypertension antepartum documented in this encounter [facility]* Diagnosis Obesity complicating , second trimester- Primary Encounter for anatomic survey 20 weeks gestation of state, incidental documented in this encounter [facility] note* Diagnosis Preexisting hypertension complicating , antepartum- Primary Benign essential hypertension antepartum AMA (advanced maternal age) multigravida 35+, second trimester Obesity complicating , second trimester Headache in , second trimester 20 weeks gestation of state, incidental documented in this encounter [facility] note* Diagnosis Constipation, unspecified constipation type Headache in , second trimester documented in this encounter [facility]* Diagnosis Headache in , second trimester documented in this encounter [facility] note* Diagnosis Nausea/vomiting in Unspecified vomiting of , unspecified as to episode of care documented in this encounter [facility] note* Diagnosis Headache in , second trimester documented in this encounter [facility] note* Diagnosis AMA (advanced maternal age) multigravida 35+, second trimester- Primary 26 weeks gestation of state, incidental 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ng , antepartum, unspecified trimester Obesity complicating , first trimester Preexisting hypertension complicating , antepartum Benign essential hypertension antepartum History of drug use [facility]* Diagnosis Headache in , second trimester [facility]* Diagnosis Diet controlled gestational diabetes mellitus (GDM) in second trimester- Primary [facility]* Diagnosis GDM (gestational diabetes mellitus), class A1 Abnormal maternal glucose tolerance, complicating , childbirth, or the puerperium, unspecified as to episode of care Diet controlled gestational diabetes mellitus (GDM) in second trimester [facility]* Diagnosis Gestational diabetes mellitus, class A1- Primary Abnormal maternal glucose tolerance, complicating , childbirth, or the puerperium, unspecified as to episode of care 28 weeks gestation of state, incidental Need for rxpahqteux-trinyqd-yfvjswogh (Tdap) vaccine Need for prophylactic vaccination with combined jsustnshlt-xtfvcma-nkagudnpt (DTP) vaccine Obesity complicating , third trimester Constipation, unspecified constipation type 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ng , antepartum, unspecified trimester AMA (advanced maternal age) multigravida 35+, third trimester Preexisting hypertension complicating , antepartum Benign essential hypertension antepartum [facility]* Diagnosis Headache in , second trimester [facility]* Diagnosis Gestational diabetes mellitus, class A1- [...] of state, incidental [facility]* Diagnosis Gestational diabetes mellitus, class A1 Abnormal maternal glucose tolerance, complicating , childbirth, or the puerperium, unspecified as to episode of care [facility] this [facility]* Diagnosis Headache in , second trimester 32 weeks gestation of - Primary state, incidental [facility]* Diagnosis 32 weeks gestation of - Primary state, incidental [facility]* Diagnosis Preexisting hypertension complicating , antepartum- Primary Benign essential hypertension antepartum 32 weeks gestation of state, incidental GDM (gestational diabetes mellitus), class A1 Abnormal maternal glucose tolerance, complicating , childbirth, or the puerperium, unspecified as to episode of care [facility] this [facility]* Diagnosis 32 weeks gestation of - Primary state, incidental documented [facility]* Diagnosis AMA (advanced maternal age) multigravida 35+, third trimester- Primary Obesity complicating , third trimester Gestational diabetes mellitus, class A1 Abnormal maternal glucose tolerance, complicating , childbirth, or the puerperium, unspecified as to episode of care Preexisting hypertension complicating , antepartum Benign essential hypertension antepartum 33 weeks gestation of state, incidental Non-stress test reactive Other specified screening documented [facility] this [facility]* Diagnosis 34 weeks gestation of - Primary state, incidental [facility] Diagnosis Preexisting hypertension complicating , antepartum- Primary Benign essential hypertension antepartum 34 weeks gestation of state, incidental Gestational diabetes mellitus, class A1 Abnormal maternal glucose tolerance, complicating , childbirth, or the puerperium, unspecified as to episode of care documented [facility] this [facility]* Diagnosis Headache in , second trimester [facility] Diagnosis Headache in , second trimester 35 weeks gestation of - Primary state, incidental [facility]* Diagnosis 35 weeks gestation of - Primary state, incidental [facility]* Diagnosis Preexisting hypertension complicating , antepartum- Primary Benign essential hypertension antepartum 35 weeks gestation of state, incidental Gestational diabetes mellitus, class A1 Abnormal maternal glucose tolerance, complicating , childbirth, or the puerperium, unspecified as to episode of care documented [facility] this [facility]* Diagnosis AMA (advanced maternal age) multigravida 35+, third trimester Obesity complicating , third trimester [facility]* Diagnosis Preexisting hypertension complicating , antepartum- Primary Benign essential hypertension antepartum 36 weeks gestation of state, incidental Gestational diabetes mellitus, class A1 Abnormal maternal glucose tolerance, complicating , childbirth, or the puerperium, unspecified as to episode of care 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ng , antepartum, unspecified trimester [facility]* Diagnosis 36 weeks gestation of - Primary state, incidental documented [facility] this [facility]* Diagnosis 37 weeks gestation of - Primary state, incidental Preexisting hypertension complicating , antepartum Benign essential hypertension antepartum Diet controlled gestational diabetes mellitus (GDM) in second trimester 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ng , antepartum, unspecified trimester Group B Streptococcus carrier, antepartum Other current maternal conditions classifiable elsewhere, antepartum documented [facility] this [facility]* Diagnosis Migraine without aura and without status migrainosus, not intractable Migraine without aura, without mention of intractable migraine without mention of status migrainosus [facility]* Diagnosis Yeast dermatitis- Primary Candidiasis of [...] of gestational diabetes [facility]* Diagnosis care and examination- Primary Routine follow-up examination or test, unconfirmed [facility]* Diagnosis Encounter for IUD insertion- Primary Encounter for insertion of intrauterine contraceptive device Routine screening for STI (sexually transmitted infection) Screening examination for venereal disease documented [facility] this [facility]* Diagnosis Encounter for routine checking of intrauterine contraceptive device (IUD)- Primary documented [facility]* Diagnosis Hypertension, essential- Primary Unspecified essential hypertension History of gestational diabetes Personal history of gestational diabetes Obesity, Class II, BMI 35-39.9 Obesity, unspecified GERD without esophagitis Esophageal reflux PUD (peptic ulcer disease) Peptic ulcer, unspecified site, unspecified as acute or chronic, without mention of hemorrhage, perforation, or obstruction External hemorrhoid External hemorrhoids without mention of complication [facility] this [facility]* Diagnosis Ventral hernia without obstruction or gangrene- Primary Ventral hernia, unspecified, without mention of obstruction or gangrene Class 2 severe obesity with serious comorbidity and body mass index (BMI) of 36.0 to 36.9 in adult, unspecified obesity type (HCC) Gastroesophageal reflux disease, unspecified whether esophagitis present Hypertension, unspecified type documented [facility] this [facility]* Diagnosis Gastroesophageal reflux disease, unspecified whether esophagitis present Pre-op testing Preoperative examination, unspecified Hypertension, essential Unspecified essential hypertension GERD without esophagitis Esophageal reflux Hyperlipidemia, mixed Mixed hyperlipidemia Migraine without aura and without status migrainosus, not intractable Migraine without aura, without mention of intractable migraine without mention of status migrainosus documented [facility] this [facility]* Diagnosis Gastroesophageal reflux disease without esophagitis- Primary Esophageal reflux Class 1 obesity with body mass index (BMI) of 34.0 to 34.9 in adult, unspecified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 patient.[facility] HospitalIn the event this information is protected by the Federal Confidentiality of Alcohol and Drug Abuse Patient Records regulations: The Federal rules restrict any use of the information to criminally investigate or prosecute any alcohol or drug abuse patient.[facility] HospitalIn the event this information is protected by the Federal Confidentiality of Alcohol and Drug Abuse Patient Records regulations: The Federal rules restrict any use of the information to criminally investigate or prosecute any alcohol or drug abuse patient.[facility] HospitalIn the event this information is protected by the Federal Confidentiality of Alcohol and Drug Abuse Patient Records regulations: The Federal rules restrict any use of the information to criminally investigate or prosecute any alcohol or drug abuse patient.[facility] HospitalIn the event this information is protected by the Federal Confidentiality of Alcohol and Drug Abuse Patient Records regulations: The Federal rules restrict any use of the information to criminally investigate or prosecute any alcohol or drug abuse patient.[facility] HospitalIn the event this information is protected by the Federal Confidentiality of Alcohol and Drug Abuse Patient Records regulations: The Federal rules restrict any use of the information to criminally investigate or prosecute any alcohol or drug abuse patient.[facility] HospitalIn the event this information is protected by the Federal Confidentiality of Alcohol and Drug Abuse Patient Records regulations: The Federal rules restrict any use of the information to criminally investigate or prosecute any alcohol or drug abuse patient.[facility] HospitalIn the event this information is protected by the Federal Confidentiality of Alcohol and Drug Abuse Patient Records regulations: The Federal rules restrict any use of the information to criminally investigate or prosecute any alcohol or drug abuse patient.[facility] HospitalIn the event this information is protected by the Federal Confidentiality of Alcohol and Drug Abuse Patient Records regulations: The Federal rules restrict any use of the information to criminally investigate or prosecute any alcohol or drug abuse patient.[facility] HospitalIn the event this information is protected by the Federal Confidentiality of Alcohol and Drug Abuse Patient Records regulations: The Federal rules restrict any use of the information to criminally investigate or prosecute any alcohol or drug abuse patient.[facility] HospitalIn the event this information is protected by the Federal Confidentiality of Alcohol and Drug Abuse Patient Records regulations: The Federal rules restrict any use of the information to criminally investigate or prosecute any alcohol or drug abuse patient.[facility] HospitalIn the event this information is protected by the Federal Confidentiality of Alcohol and Drug Abuse Patient Records regulations: The Federal rules restrict any use of the information to criminally investigate or prosecute any alcohol or drug abuse patient.[facility] HospitalIn the event this information is protected by the Federal Confidentiality of Alcohol and Drug Abuse Patient Records regulations: The Federal rules restrict any use of the information to criminally investigate or prosecute any alcohol or drug abuse patient.[facility] HospitalIn the event this information is protected by the Federal Confidentiality of Alcohol and Drug Abuse Patient Records regulations: The Federal rules restrict any use of the information to criminally investigate or prosecute any alcohol or drug abuse patient.[facility] HospitalIn the event this information is protected by the Federal Confidentiality of Alcohol and Drug Abuse Patient Records regulations: The Federal rules restrict any use of the information to criminally investigate or prosecute any alcohol or drug abuse patient.[facility] HospitalIn the event this information is protected by the Federal Confidentiality of Alcohol and Drug Abuse Patient Records regulations: The Federal rules restrict any use of the information to criminally investigate or prosecute any alcohol or drug abuse patient.[facility] HospitalIn the event this information is protected by the Federal Confidentiality of Alcohol and Drug Abuse Patient Records regulations: The Federal rules restrict any use of the information to criminally investigate or prosecute any alcohol or drug abuse patient.[facility] HospitalIn the event this information is protected by the Federal Confidentiality of Alcohol and Drug Abuse Patient Records regulations: The Federal rules restrict any use of the information to criminally investigate or prosecute any alcohol or drug abuse patient.[facility] HospitalIn the event this information is protected by the Federal Confidentiality of Alcohol and Drug Abuse Patient Records regulations: The Federal rules restrict any use of the information to criminally investigate or prosecute any alcohol or drug abuse patient.[facility] HospitalIn the event this information is protected by the Federal Confidentiality of Alcohol and Drug Abuse Patient Records regulations: The Federal rules restrict any use of the information to criminally investigate or prosecute any alcohol or drug abuse patient.[facility] HospitalIn the event this information is protected by the Federal Confidentiality of Alcohol and Drug Abuse Patient Records regulations: The Federal rules restrict any use of the information to criminally investigate or prosecute any alcohol or drug abuse patient.[facility] HospitalIn the event this information is protected by the Federal Confidentiality of Alcohol and Drug Abuse Patient Records regulations: The Federal rules restrict any use of the information to criminally investigate or prosecute any alcohol or drug abuse patient.[facility] HospitalIn the event this information is protected by the Federal Confidentiality of Alcohol and Drug Abuse Patient Records regulations: The Federal rules restrict any use of the information to criminally investigate or prosecute any alcohol or drug abuse patient.[facility] HospitalIn the event this information is protected by the Federal Confidentiality of Alcohol and Drug Abuse Patient Records regulations: The Federal rules restrict any use of the information to criminally investigate or prosecute any alcohol or drug abuse patient.[facility] HospitalIn the event this information is protected by the Federal Confidentiality of Alcohol and Drug Abuse Patient Records regulations: The Federal rules restrict any use of the information to criminally investigate or prosecute any alcohol or drug abuse patient.[facility] HospitalIn the event this information is protected by the Federal Confidentiality of Alcohol and Drug Abuse Patient Records regulations: The Federal rules restrict any use of the information to criminally investigate or prosecute any alcohol or drug abuse patient.[facility] HospitalIn the event this information is protected by the Federal Confidentiality of Alcohol and Drug Abuse Patient Records regulations: The Federal rules restrict any use of the information to criminally investigate or prosecute any alcohol or drug abuse patient.[facility] HospitalIn the event this information is protected by the Federal Confidentiality of Alcohol and Drug Abuse Patient Records regulations: The Federal rules restrict any use of the information to criminally investigate or prosecute any alcohol or drug abuse patient.[facility] HospitalIn the event this information is protected by the Federal Confidentiality of Alcohol and Drug Abuse Patient Records regulations: The Federal rules restrict any use of the information to criminally investigate or prosecute any alcohol or drug abuse patient.[facility] HospitalIn the event this information is protected by the Federal Confidentiality of Alcohol and Drug Abuse Patient Records regulations: The Federal rules restrict any use of the information to criminally investigate or prosecute any alcohol or drug abuse patient.[facility] HospitalIn the event this information is protected by the Federal Confidentiality of Alcohol and Drug Abuse Patient Records regulations: The Federal rules restrict any use of the information to criminally investigate or prosecute any alcohol or drug abuse patient.[facility] HospitalIn the event this information is protected by the Federal Confidentiality of Alcohol and Drug Abuse Patient Records regulations: The Federal rules restrict any use of the information to criminally investigate or prosecute any alcohol or drug abuse patient.[facility] HospitalIn the event this information is protected by the Federal Confidentiality of Alcohol and Drug Abuse Patient Records regulations: The Federal rules restrict any use of the information to criminally investigate or prosecute any alcohol or drug abuse patient.[facility] HospitalIn the event this information is protected by the Federal Confidentiality of Alcohol and Drug Abuse Patient Records regulations: The Federal rules restrict any use of the information to criminally investigate or prosecute any alcohol or drug abuse patient.[facility] HospitalIn the event this information is protected by the Federal Confidentiality of Alcohol and Drug Abuse Patient Records regulations: The Federal rules restrict any use of the information to criminally investigate or prosecute any alcohol or drug abuse patient.[facility] HospitalIn the event this information is protected by the Federal Confidentiality of Alcohol and Drug Abuse Patient Records regulations: The Federal rules restrict any use of the information to criminally investigate or prosecute any alcohol or drug abuse patient.[facility] HospitalIn the event this information is protected by the Federal Confidentiality of Alcohol and Drug Abuse Patient Records regulations: The Federal rules restrict any use of the information to criminally investigate or prosecute any alcohol or drug abuse patient.[facility] HospitalIn the event this information is protected by the Federal Confidentiality of Alcohol and Drug Abuse Patient Records regulations: The Federal rules restrict any use of the information to criminally investigate or prosecute any alcohol or drug abuse patient.[facility] HospitalIn the event this information is protected by the Federal Confidentiality of Alcohol and Drug Abuse Patient Records regulations: The Federal rules restrict any use of the information to criminally investigate or prosecute any alcohol or drug abuse patient.[facility] HospitalIn the event this information is protected by the Federal Confidentiality of Alcohol and Drug Abuse Patient Records regulations: The Federal rules restrict any use of the information to criminally investigate or prosecute any alcohol or drug abuse patient.[facility] HospitalIn the event this information is protected by the Federal Confidentiality of Alcohol and Drug Abuse Patient Records regulations: The Federal rules restrict any use of the information to criminally investigate or prosecute any alcohol or drug abuse patient.[facility] HospitalIn the event this information is protected by the Federal Confidentiality of Alcohol and Drug Abuse Patient Records regulations: The Federal rules restrict any use of the information to criminally investigate or prosecute any alcohol or drug abuse patient.[facility] HospitalIn the event this information is protected by the Federal Confidentiality of Alcohol and Drug Abuse Patient Records regulations: The Federal rules restrict any use of the information to criminally investigate or prosecute any alcohol or drug abuse patient.[facility] HospitalIn the event this information is protected by the Federal Confidentiality of Alcohol and Drug Abuse Patient Records regulations: The Federal rules restrict any use of the information to criminally investigate or prosecute any alcohol or drug abuse patient.[facility] HospitalIn the event this information is protected by the Federal Confidentiality of Alcohol and Drug Abuse Patient Records regulations: The Federal rules restrict any use of the information to criminally investigate or prosecute any alcohol or drug abuse patient.[facility] HospitalIn the event this information is protected by the Federal Confidentiality of Alcohol and Drug Abuse Patient Records regulations: The Federal rules restrict any use of the information to criminally investigate or prosecute any alcohol or drug abuse patient.[facility] HospitalIn the event this information is protected by the Federal Confidentiality of Alcohol and Drug Abuse Patient Records regulations: The Federal rules restrict any use of the information to criminally investigate or prosecute any alcohol or drug abuse patient.[facility] HospitalIn the event this information is protected by the Federal Confidentiality of Alcohol and Drug Abuse Patient Records regulations: The Federal rules restrict any use of the information to criminally investigate or prosecute any alcohol or drug abuse patient.[facility] HospitalIn the event this information is protected by the Federal Confidentiality of Alcohol and Drug Abuse Patient Records regulations: The Federal rules restrict any use of the information to criminally investigate or prosecute any alcohol or drug abuse patient.[facility] HospitalIn the event this information is protected by the Federal Confidentiality of Alcohol and Drug Abuse Patient Records regulations: The Federal rules restrict any use of the information to criminally investigate or prosecute any alcohol or drug abuse patient.[facility] HospitalIn the event this information is protected by the Federal Confidentiality of Alcohol and Drug Abuse Patient Records regulations: The Federal rules restrict any use of the information to criminally investigate or prosecute any alcohol or drug abuse patient.[facility] HospitalIn the event this information is protected by the Federal Confidentiality of Alcohol and Drug Abuse Patient Records regulations: The Federal rules restrict any use of the information to criminally investigate or prosecute any alcohol or drug abuse patient.[facility] HospitalIn the event this information is protected by the Federal Confidentiality of Alcohol and Drug Abuse Patient Records regulations: The Federal rules restrict any use of the information to criminally investigate or prosecute any alcohol or drug abuse patient.[facility] HospitalIn the event this information is protected by the Federal Confidentiality of Alcohol and Drug Abuse Patient Records regulations: The Federal rules restrict any use of the information to criminally investigate or prosecute any alcohol or drug abuse patient.[facility] HospitalIn the event this information is protected by the Federal Confidentiality of Alcohol and Drug Abuse Patient Records regulations: The Federal rules restrict any use of the information to criminally investigate or prosecute any alcohol or drug abuse patient.[facility] HospitalIn the event this information is protected by the Federal Confidentiality of Alcohol and Drug Abuse Patient Records regulations: The Federal rules restrict any use of the information to criminally investigate or prosecute any alcohol or drug abuse patient.[facility] HospitalIn the event this information is protected by the Federal Confidentiality of Alcohol and Drug Abuse Patient Records regulations: The Federal rules restrict any use of the information to criminally investigate or prosecute any alcohol or drug abuse patient.[facility] HospitalIn the event this information is protected by the Federal Confidentiality of Alcohol and Drug Abuse Patient Records regulations: The Federal rules restrict any use of the information to criminally investigate or prosecute any alcohol or drug abuse patient.[facility] HospitalIn the event this information is protected by the Federal Confidentiality of Alcohol and Drug Abuse Patient Records regulations: The Federal rules restrict any use of the information to criminally investigate or prosecute any alcohol or drug abuse patient.[facility] HospitalIn the event this information is protected by the Federal Confidentiality of Alcohol and Drug Abuse Patient Records regulations: The Federal rules restrict any use of the information to criminally investigate or prosecute any alcohol or drug abuse patient.[facility] HospitalIn the event this information is protected by the Federal Confidentiality of Alcohol and Drug Abuse Patient Records regulations: The Federal rules restrict any use of the information to criminally investigate or prosecute any alcohol or drug abuse patient.[facility] HospitalIn the event this information is protected by the Federal Confidentiality of Alcohol and Drug Abuse Patient Records regulations: The Federal rules restrict any use of the information to criminally investigate or prosecute any alcohol or drug abuse patient.[facility] HospitalIn the event this information is protected by the Federal Confidentiality of Alcohol and Drug Abuse Patient Records regulations: The Federal rules restrict any use of the information to criminally investigate or prosecute any alcohol or drug abuse patient.[facility] Care Teams (unrecognized sec tion and content) Numerical Control Router Operator Relationship Specialty Start Date End Date Shaun Carlin MD PCP - General Family Practice 07/07/18 Numerical Control Router Operator Relationship Specialty Start Date End Date Shaun Carlin MD PCP - General Family Practice 07/07/18 Numerical Control Router Operator Relationship Specialty Start Date End Date Shaun Carlin MD PCP - General Family Practice 07/07/18 Numerical Control Router Operator Relationship Specialty Start Date End Date Shaun Carlin MD PCP - General Family Practice 07/07/18 Numerical Control Router Operator Relationship Specialty Start Date End Date Shaun Carlin MD PCP - General Family Practice 07/07/18 Numerical Control Router Operator Relationship Specialty Start Date End Date Shaun Carlin MD PCP - General Family Practice 07/07/18 Numerical Control Router Operator Relationship Specialty Start Date End Date Shaun Carlin MD PCP - General Family Practice 07/07/18 Numerical Control Router Operator Relationship Specialty Start Date End Date Shaun Carlin MD PCP - General Family Practice 07/07/18 Numerical Control Router Operator Relationship Specialty Start Date End Date Shaun Carlin MD PCP - General Family Practice 07/07/18 Numerical Control Router Operator Relationship Specialty Start Date End Date Shaun Carlin MD PCP - General Family Practice 07/07/18 Numerical Control Router Operator Relationship Specialty Start Date End Date Shaun Carlin MD PCP - General Family Practice 07/07/18 Numerical Control Router Operator Relationship Specialty Start Date End Date Shaun Carlin MD PCP - General Family Practice 07/07/18 Numerical Control Router Operator Relationship Specialty Start Date End Date Shaun Carlin MD PCP - General Family Practice 07/07/18 Numerical Control Router Operator Relationship Specialty Start Date End Date Shaun Carlin MD PCP - General Family Medicine 07/07/18 Numerical Control Router Operator Relationship Specialty Start Date End Date Shaun Carlin MD PCP - General Family Medicine 07/07/18 Numerical Control Router Operator Relationship Specialty Start Date End Date Shaun Carlin MD PCP - General Family Medicine 07/07/18 Numerical Control Router Operator Relationship Specialty Start Date End Date Shaun Carlin MD PCP - General Family Medicine 07/07/18 Numerical Control Router Operator Relationship Specialty Start Date End Date Shaun Carlin MD PCP - General Family Medicine 07/07/18 Numerical Control Router Operator Relationship Specialty Start Date End Date Shaun Carlin MD PCP - General Family Medicine 07/07/18 Numerical Control Router Operator Relationship Specialty Start Date End Date Shaun Carlin MD PCP - General Family Medicine 07/07/18 Numerical Control Router Operator Relationship Specialty Start Date End Date Shaun Carlin MD PCP - General Family Medicine 07/07/18 Numerical Control Router Operator Relationship Specialty Start Date End Date Shaun Carlin MD PCP - General Family Medicine 07/07/18 Numerical Control Router Operator Relationship Specialty Start Date End Date Shaun Carlin MD PCP - General Family Medicine 07/07/18 Numerical Control Router Operator Relationship Specialty Start Date End Date Shaun Carlin MD PCP - General Family Medicine 07/07/18 Numerical Control Router Operator Relationship Specialty Start Date End Date Shaun Carlin MD PCP - General Family Medicine 07/07/18 Numerical Control Router Operator Relationship Specialty Start Date End Date Shaun Carlin MD PCP - General Family Medicine 07/07/18 Numerical Control Router Operator Relationship Specialty Start Date End Date Shaun Carlin MD PCP - General Family Medicine 07/07/18 Numerical Control Router Operator Relationship Specialty Start Date End Date Shaun Carlin MD PCP - General Family Medicine 07/07/18 Numerical Control Router Operator Relationship Specialty Start Date End Date Shaun Carlin MD PCP - General Family Medicine 07/07/18 Numerical Control Router Operator Relationship Specialty Start Date End Date Shaun Carlin MD PCP - General Family Medicine 07/07/18 Numerical Control Router Operator Relationship Specialty Start Date End Date Shaun Carlin MD PCP - General Family Medicine 07/07/18 Numerical Control Router Operator Relationship Specialty Start Date End Date Shaun Carlin MD PCP - General Family Medicine 07/07/18 Numerical Control Router Operator Relationship Specialty Start Date End Date Shaun Carlin MD PCP - General Family Medicine 07/07/18 Numerical Control Router Operator Relationship Specialty Start Date End Date Shaun Carlin MD PCP - General Family Medicine 07/07/18 Numerical Control Router Operator Relationship Specialty Start Date End Date Shaun Carlin MD PCP - General Family Medicine 07/07/18 Numerical Control Router Operator Relationship Specialty Start Date End Date Shaun Carlin MD PCP - General Family Medicine 07/07/18 Numerical Control Router Operator Relationship Specialty Start Date End Date Shaun Carlin MD PCP - General Family Medicine 07/07/18 Numerical Control Router Operator Relationship Specialty Start Date End Date Shaun Carlin MD PCP - General Family Medicine 07/07/18 Numerical Control Router Operator Relationship Specialty Start Date End Date Shaun Carlin MD PCP - General Family Medicine 07/07/18 Numerical Control Router Operator Relationship Specialty Start Date End Date Shaun Carlin MD PCP - General Family Medicine 07/07/18 Numerical Control Router Operator Relationship Specialty Start Date End Date Shaun Carlin MD PCP - General Family Medicine 07/07/18 Numerical Control Router Operator Relationship Specialty Start Date End Date Ritchie Lieberman MD [address] [facility] [place] [address] PCP - General Family Medicine 07/05/24 PodlogHui ac APRN.PRESS WASHER [address] [facility] [place] [address] Family Medicine 07/05/24 Numerical Control Router Operator Relationship Specialty Start Date End Date Ritchie Lieberman MD [address] [facility] [place] [address] PCP - General Family Medicine 07/05/24 PodlogarHui APRN.PRESS WASHER [address] [facility] [place] [address] Family Medicine 07/05/24 Numerical Control Router Operator Relationship Specialty Start Date End Date Ritchie Lieberman MD [address] [facility] [place] [address] PCP - General Family Medicine 07/05/24 Podlogar, Hui, OIL FIELD PIPELINE SUPERVISOR.PRESS WASHER [address] [facility] [place] [address] Family Medicine 07/05/24 Numerical Control Router Operator Relationship Specialty Start Date End Date Ritchie Lieberman MD [address] [place] [place] [address] PCP - General Family Medicine 07/05/24 Podlogar, ARELY AmesN.PRESS WASHER [address] [facility] [place] [address] Family Medicine 07/05/24 Numerical Control Router Operator Relationship Specialty Start Date End Date Ritchie Lieberman MD [address] [facility] [place] [address] PCP - General Family Medicine 07/05/24 Podlogar, Hui, OIL FIELD PIPELINE SUPERVISOR.PRESS WASHER [address] [place] [address] Family Medicine 07/05/24 Numerical Control Router Operator Relationship Specialty Start Date End Date Ritchie Lieberman MD [address] [place] [address] PCP - General Family Medicine 07/05/24 Podlogar, Hui, OIL FIELD PIPELINE SUPERVISOR.PRESS WASHER [address] [facility] [place] [address] Family Medicine 07/05/24 Podlogar, Hui, OIL FIELD PIPELINE SUPERVISOR.PRESS WASHER [address] [place] [place] [address] Finishing Range Supervisor Family [facility] 08/21/24 Numerical Control Router Operator Relationship Specialty Start Date End Date Ritchie Lieberman MD [address] [facility] [place] [address] PCP - General Family Medicine 07/05/24 Podlogar, Hui, OIL FIELD PIPELINE SUPERVISOR.PRESS WASHER [address] [facility] [place] [address] Family Medicine 07/05/24 Podlogar, Hui, OIL FIELD PIPELINE SUPERVISOR.PRESS WASHER [address] [facility] [place] [address] [facility] 08/21/24 Numerical Control Router Operator Relationship Specialty Start Date End Date Ritchie Lieberman MD [address] [place] [address] PCP - General Family Medicine 07/05/24 Podlogar, Hui, OIL FIELD PIPELINE SUPERVISOR.PRESS WASHER [address] [facility] [place] [address] Family Medicine 07/05/24 Podlogar, Hui, OIL FIELD PIPELINE SUPERVISOR.PRESS WASHER [address] [facility] [place] [address] Finishing [facility] 08/21/24 Numerical Control Router Operator Relationship Specialty Start Date End Date Ritchie Lieberman MD [address] [place] [address] PCP - General Family Medicine 07/05/24 Podlogar, Hui, OIL FIELD PIPELINE SUPERVISOR.PRESS WASHER [address] [place] [address] Family Medicine 07/05/24 PodHui li, OIL FIELD PIPELINE SUPERVISOR.PRESS WASHER [address] [facility] [place] [address] Finishing Range Supervisor Family Medicine 08/21/24 Kinza Basilio APRN.PRESS WASHER [address] [facility] [place] [address] Finishing Range Supervisor Family Medicine 11/26/24 12/05/24 Kinza Basilio APRN.PRESS WASHER [address] [facility] [place] [address] Finishing Range Supervisor Family Medicine 12/06/24 Numerical Control Router Operator Relationship Specialty Start Date End Date Ritchie Lieberman MD [address] [facility] [place] [address] PCP - General Family Medicine 07/05/24 PodlogarHui, OIL FIELD PIPELINE SUPERVISOR.PRESS WASHER [address] [facility] [place] [address] Family Medicine 07/05/24 Podlogar, Hui, OIL FIELD PIPELINE SUPERVISOR.PRESS WASHER [address] [facility] [place] [address] Finishing Range Supervisor Family Medicine 08/21/24 Kinza Basilio APRN.PRESS WASHER [address] [facility] [place] [address] Finishing Range Supervisor Family Medicine 12/06/24 Numerical Control Router Operator Relationship Specialty Start Date End Date Ritchie Lieberman MD [address] [facility] [place] [address] PCP - General Family Medicine 07/05/24 Podlogar, Hui, OIL FIELD PIPELINE SUPERVISOR.PRESS WASHER [address] [place] [address] Family [facility] 07/05/24 Hui Valdes APRN.PRESS WASHER [address] [place], [place] [address] [facility] 08/21/24 Kinza Basilio APRN.PRESS WASHER [address] [place], [place] [address] [facility] 12/06/24 Team Status: Active Member Role Status Dates Hui Podlogar ROTARY ENVELOPE MACHINE OPERATOR, ROTARY ENVELOPE MACHINE OPERATOR-C Primary Care Provider Active Team Status: Inactive Member Role Status Dates Dr. Flora Prieto DO Attending Provider Active Start: January 15, 2025 End: January 15, 2025 Dr. Flora Prieto DO Emergency Provider Active Start: January 15, 2025 End: January 15, 2025 Hui Podlogar ROTARY ENVELOPE MACHINE OPERATOR, ROTARY ENVELOPE MACHINE OPERATOR-C Primary Care Provider Active Start: January 15, 2025 End: January 15, 2025 Team Status: Inactive Member Role Status Dates Hui Podlogar ROTARY ENVELOPE MACHINE OPERATOR, ROTARY ENVELOPE MACHINE OPERATOR-C Primary Care Provider Active Start: February 02, 2025 End: February 02, 2025 Hui Podlogar ROTARY ENVELOPE MACHINE OPERATOR, ROTARY ENVELOPE MACHINE OPERATOR-C Referring Provider Active Start: February 02, 2025 End: February 02, 2025 Dr. Dseean Rodriguez MD Attending Provider Active Start: February 02, 2025 End: February 02, 2025 Team Status: Inactive Member Role Status Dates Hui Podlogar ROTARY ENVELOPE MACHINE OPERATOR, ROTARY ENVELOPE MACHINE OPERATOR-C Primary Care Provider Active Start: February 14, 2025 End: February 14, 2025 Dr. Desean Rodriguez MD Attending Provider Active Start: February 14, 2025 End: February 14, 2025 Dr. Desean Rodriguez MD Referring Provider Active Start: February 14, 2025 End: February 14, 2025 Team Status: Active Member Role Status Dates Hui Podlogar ROTARY ENVELOPE MACHINE OPERATOR, ROTARY ENVELOPE MACHINE OPERATOR-C Primary Care Provider Active Start: February 14, 2025 Dr. Desean Rodriguez MD Attending Provider Active Start: February 14, 2025 Dr. Desean Rodriguez MD Referring Provider Active Start: February 14, 2025 Dr. Desean Rodriguez MD Other Provider Active St art: February 14, 2025 Team Status: Inactive Member Role Status Dates Hui Valdes ROTARY ENVELOPE MACHINE OPERATOR, ROTARY ENVELOPE MACHINE OPERATOR-C Primary Care Provider Active Start: February 21, [...] BE BASED ON THE PRIMARY CLINICAL RECORDS. [employer] provides no warranty or guarantee of the accuracy or completeness of information in this document.
[2025-02-22] MEDS: Dextrose 5%-Lactated Ringers 1,000 ML 100 ML IV (04:19)
--- OUTSIDE RECORDS SUMMARY | 2025-02-22 04:25 | XMS RPT_ITS | CCD ---
Author Organization [facility] CliniSywy Care Team Providers Care Pressure Tester Operator Name Role Phone [facility] Unavailable Unavai lable [place], COUNTS INCLUDE 234 BEDS AT THE [facility] Unavailable Unavai lable BULGRIN, LOURDES Unavailable Unavailable [place], COUNTS INCLUDE 234 BEDS AT THE [facility] Unavailable Unavai lable UNKNOWN, PROVIDER Unavailable Unavailable Christina Rangel Primary Care Provider [phone] AA UNKNOWN PCP, UNKNOWN Primary Care Unavaila [...] Provider Shaun Carlin MD Primary Care Provider [phone] Dr. Shaun Carlin Primary Care Unavailable JULY Joseph, TIMBO VU Attending Unav willi LARSON Jr., TIMBO VU Referring Unav SHAUN Medrano Referring Unavailable ESME GRACE Attending Unavailable SHAUN CARLIN Primary Care Unavailable ESME GRACE Attending Unavailable ESME GRACE Referring Unavailable SHAUN CARLIN Primary Care Unavailable SHUAN CARLIN Primary Care Unavailable ESME GRACE Attending Unavailable SHAUN CARLIN Referring Unavailable JOANNA WILKES Attending Unavailable SHAUN CARLIN Primary Care Unavailable Ritchie Lieberman MD Primary Care Provider Podlogar RECORDS MANAGEMENT ANALYST.DIRECTOR RECORDS MANAGEMENT, Hui Unavailable Podlogar RECORDS MANAGEMENT ANALYST.DIRECTOR RECORDS MANAGEMENT, Hui Unavailable Knoble RECORDS MANAGEMENT ANALYST.DIRECTOR RECORDS MANAGEMENTKinza Unavailable Knoble RECORDS MANAGEMENT ANALYST.DIRECTOR RECORDS MANAGEMENT, Kinza Unavailable PODLOGAR, HUI Attending Unavailable BURSLEY, [...] Dr. Flora Prieto DO Emergency Provider Podlogar 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-C, Hui Primary Care Provider Podlogar 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-C, Hui Referring Provider Jennifer MARADIAGA, Dr. Desean Cavazos Attending Provider Jennifer MARADIAGA, Dr. Desean Cavazos Referring Provider Jennifer MARADIAGA, Dr. Desean Cavazos Other Provider Desean Rodriguez Referring Unavailable Podlogar 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, Hui Primary Care Unavailable Desean Rodriguez Consulting Unavailable Desean Rodriguez Attending Unavailable Desean Rodriguez Referring Unavailable Podlogar 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, Hui Primary Care Unavailable Desean Rodriguez Attending Unavailable Podlogar 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, Hui Primary Care Unavailable Flora Prieto Attending Unavailable Podlogar 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, Hui Primary Care Unavailable Podlogar 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, Hui Referring Unavailable Desean Rodriguez Attending Unavailable Dr. Yvon Becker DO Emergency Provider Allergies Allergy Classification Reported Allergen(s) Allergy Type Date of Onset Reaction(s) Facility (20 sources) Amoxicillin; Translations: [amoxicillin] Drug Allergy 04-30-2016 Unknown [place] (1 source) Amoxicillin Drug Allergy [facility] Repository (1 source) Amoxicillin Drug Allergy 02-14-2025 [facility] Repository Medications Current Medications Medication [...] every 6 hours as needed for pain. [id number] 200 actuat albuterol 0.09 mg/actuat metered dose [...] Start: 12-31-2024 take 1 capsule by [facility] once daily atomoxetine 80 mg capsule Indications: [...] Comment on above: Take 2 capsules by [facility] three times daily as needed for [...] Comment on above: Take 1 tablet by [facility] every 12 hours for 10 days. gabapentin [...] / neomycin 3.5 mg/ml / polymyxin b 86712 unt/ml otic solution (2 sources) Aminoglycoside Antibacterial, Polymyxin-class Antibacterial, Corticosteroid Start: 06-19-2021 End: 06-19-2021 kssjfwdh-rpzrytaed-dtyjsktks isone (CORTISPORIN) 3.5-93412-[address] 4 drops into the left ear 3 times daily for 10 days Instill into left Ear 10 mL 0 06/19/2021 06/19/2021 Discontinued (Availability) Start: 06-19-2021 End: 06-29-2021 osmaextl-pqjxkwszx-tdvaoslkg isone 1 % SOLN otic solution Place [...] Comment on above: Take 1 tablet by [facility] once daily. nitrofurantoin, macrocrystals 25 mg / nitrofurantoin, monohydrate 75 mg oral capsule (2 sources) Nitrofuran Antibacterial Start: 03-28-20 End: 04-07-20 take 1 capsule by mouth twice daily nitrofurantoin monohydrate and macrocrystal (MACROBID) 100 mg capsule Take 1 capsule by mouth twice daily for 10 days. 20 capsule 0 03/28/2022 04/07/2022 Active Comment on above: Take 1 capsule by [facility] twice daily for 10 days. nystatin 240763 unt/ml topical cream (4 sources) Polyene Antifungal [...] Start: 12-31-2024 take 1 capsule by mo [facility] once daily venlafaxine ER (EFFEXOR XR) 75 [...] Start: 06-05-2019 take 1 capsule by [facility] once daily venlafaxine (EFFEXOR XR) 150 MG extended release capsule Take 1 capsule by mouth daily 30 capsule 0 06/05/2019 Active Start: 06-05-2019 take 1 capsule by mo [facility] once daily venlafaxine (EFFEXOR XR) 150 [...] on above: Take 1 capsule by mo [facility] twice daily. famotidine 20 mg oral tablet [...] Comment on above: Take 1 tablet by [facility] twice daily. Take 20 mg by mouth [...] application to affected area twice daily. levonorgestrel 0.985560 mg/hr intrauterine system (1 source) Progestin, Progestin-containing [...] on above: Take 1 capsule by mo [facility] once daily. ondansetron 8 mg oral tablet [...] above: Take by mouth. polyethylene glycol 3350 84886 mg powder for oral solution (20 sources) Osmotic Laxative Start: 05-21-20 End: 07-05-20 polyethylene glycol 3350 (MIRALAX, GLYCOLAX) 17 gram/dose powder Indications: Constipation, unspecified constipation type Take 17 g by mouth once daily. Dissolve dose in 4 - 8 ounces of liquid and take as directed. 119 g 1 07/05/2022 Active Start: 04-24-2022 End: 05-19-2022 polyethylene glycol 3350 (AL RALAX, GLYCOLAX) 17 gram/dose powder Indications: Constipation, unspecified constipation type TAKE 17 G BY MOUTH ONCE DAILY. DISSOLVE DOSE IN 4 - 8 OUNCES OF LIQUID AND TAKE DIRECTED. 119 g 1 04/24/2022 05/19/2022 Discontinued Start: 04-05-2022 End: 04-24-2022 polyethylene glycol 3350 (AL RALAX) 17 gram/dose powder Indications: Constipation, unspecified [...] 1 TABLET BY LIZBETH TH EVERY DAY Xzunrkso-Lf-Rzd-Fe-F A tab (20 sources) Start: 2 take 1 tablet by mouth once daily Ezbbcbpg-Pt-Gab-Fe-FA tab Indications: Amenorrhea, secondary Take 1 tablet [...] 10-18-2024 Episodic Other aftercare (1 source) Other intermediate (current) drug therapy; Translations: [OTH GROUP EXERCISE CLASS INSTRUCTOR CURRENT DRUG THERAPY] Onset: 08-10-2019 Episodic Other [...] Auto (Unsp spec) [#/Vol] 2.68 10*3/uL 0.83-4.51 [facility] Absolute neutrophil countOrd ered By: Yvon Becker on 02-21-2025 Neutrophils (Bld) [#/Vol] 5.3 10*3/uL 2.0-7.7 [facility] Anion gap in Serum or Plasma Ordered By: Yvon Becker on 02-21-2025 Anion gap [Moles/Vol] 11 mmol/L - [facility] Automated lymphocyte count a s percentage of total leukocytesOrdered By: Yvon Becker on 02-21-2025 Lymphocytes/100 WBC Auto (Unsp spec) 29.7 % - [facility] BUN/creatinine ratioOrdered By: Yvon Becker on 02-21-2025 Urea nitrogen/Creatinine [Mass ratio] 15.4 mg/mg - [facility] Basophil percentageOrdered B y: Yvon Becker on 02-21-2025 Basophils/100 WBC (Bld) 0.9 % 0-1 [facility] Bilirubin Test strip Ql (U)O rdered By: Yvon Becker on 02-21-2025 Bilirubin Ql (U) Negative Negative [facility] Bilirubin, totalOrdered By: Yvon Becker on 02-21-2025 Bilirubin [Mass/Vol] 0.20 mg/dL 0.00-1.30 [facility] Carbon dioxide, total [Moles /volume] in Central venous bloodOrdered By: Yvon Becker on 02-21-2025 CO2 [Moles/Vol] 22.8 mmol/L 21.0-32.0 [facility] Chloride assayOrdered By: Yashira Becker on 02-21-2025 Chloride [Moles/Vol] 106 mmol/L 98-108 [facility] Eosinophil percentageOrdered By: Yvon Becker on 02-21-2025 Eosinophils/100 WBC (Bld) 2.0 % 0-5 [facility] Erythrocyte distribution wid th ratioOrdered By: Yvon Rostia on 02-21-2025 Erythrocyte distribution width (RBC) [Ratio] 12.2 % 11.6-14.6 [facility] Erythrocyte distribution wid th standard deviationOrdered By: Yvon Vizcarra on 02-21-2025 Erythrocyte distribution width (RBC) [Ratio] 42.2 fl 35.1-43.9 [facility] Glomerular filtration rate ( GFR) estimation/1.73 sq m using serum, plasma, or whole bOrdered By: Yvon Becker on 02-21-2025 GFR/1.73 sq M.predicted among non-blacks MDRD (S/P/Bld) [Vol rate/Area] 108 mL/min/{1.73_m2} >60 [facility] Comment on above: mL/min/1.73m2 CKD-EP I Creatinine Equation (2020) Hematocrit Auto (Bld) [Volum e fraction]Ordered By: Yvon Becker on 02-21-2025 Hematocrit (Bld) [Volume fraction] 41.0 % 37-47 [facility] Hemoglobin measurementOrdere d By: Yvon Becker on 02-21-2025 Hemoglobin (Bld) [Mass/Vol] 13.5 g/dL 12.0-15.0 [facility] Immature granulocytes/100 WB C Auto (Bld)Ordered By: Yvon Becker on 02-21-2025 Immature granulocytes/100 WBC (Bld) 0.200 % 0.0-0.9 [facility] Comment on above: IG% - Immature Granu locytes (promyelocytes, myelocytes and metamyelocytes) > 1% indicates that a LEFT SHIFT is Present. Ketones Test strip Ql (U)Ord ered By: Yvon Becker on 02-21-2025 Ketones Ql (U) Negative Negative [facility] Laboratory - Chemistry and C hemistry - challengeOrdered By: Yvon Becker on 02-21-2025 AST [Catalytic activity/Vol] 34 U/L High <32 [facility] Comment on above: Hemolysis present, R esults could be affected. Lactic acid measurementOrder ed By: Yvon Becker on 02-21-2025 Lactate [Moles/Vol] 1.8 mmol/L 0.0-2.0 [facility] Lipase measurementOrdered By : Yvon Becker on 02-21-2025 Lipase [Catalytic activity/Vol] 46 U/L 13-75 [facility] Comment on above: Please note:LIPASE r evised reference range effective 22. New Lipase methodology. Expected to produce lower values than the previous assay method. NEW Reference Range: 13 - 75 U/L MCV (mean corpuscular volume ) determinationOrdered By: Yvon Becker on 02-21-2025 MCV (RBC) [Entitic vol] 93.2 fL 81-99 [facility] Mean corpuscular hemoglobin (MCH) determinationOrdered By: Yvon Becker on 02-21-2025 MCH (RBC) [Entitic mass] 30.7 pg 27.0-32.0 [facility] Mean corpuscular hemoglobin concentration (MCHC) determinationOrdered By: Yvon Becker on 02-21-2025 MCHC (RBC) [Mass/Vol] 32.9 g/dL 32-36 [facility] Mean platelet volume determi nationOrdered By: Yvon Becker on 02-21-2025 Platelet mean volume (Bld) [Entitic vol] 9.3 fL 6.2-12.0 [facility] Microscopic analysis of urin e for red blood cells (RBC)Ordered By: Yvon Becker on 02-21-2025 Microscopic analysis of urine for red blood cells (RBC) 0-5 SEEN /hpf 0-5 [facility] Monocyte percentageOrdered B y: Yvon Becker on 02-21-2025 Monocytes/100 WBC (Bld) 8.0 % 0-10 [facility] Mucus LM Ql (Urine sed)Order ed By: Yvon Becker on 02-21-2025 Mucus Ql (Urine sed) 0 SEEN /hpf [facility] Neutrophil percentageOrdered By: Yvon Becker on 02-21-2025 Neutrophils/100 WBC (Bld) 59.2 % 47-70 [facility] Nitrite Test strip Ql (U)Ord ered By: Yvon Becker on 02-21-2025 Nitrite Ql (U) Negative Negative [facility] Nucleated red blood cell per centageOrdered By: Yvon Becker on 02-21-2025 Nucleated RBC/100 WBC (Bld) [Ratio] 0 % 0-5 [facility] Platelet countOrdered By: Yashira gamblel Rosita on 02-21-2025 Platelets (Bld) [#/Vol] 390 10*3/uL 150-450 [facility] Potassium measurement (mass/ volume)Ordered By: Yvon Becker on 02-21-2025 Potassium (Unsp spec) [Mass/Vol] 5.0 mmol/L 3.3-5.1 [facility] Comment on above: Hemolysis present, R esults could be affected. Protein Test strip Ql (U)Ord ered By: Yvon Becker on 02-21-2025 Protein Ql (U) Negative Negative [facility] RBC Auto (Bld) [#/Vol]Ordere d By: Yvon Becker on 02-21-2025 RBC (Bld) [#/Vol] 4.40 10*6/uL 4.2-5.4 [facility] Serum creatinine measurement (mass/volume)Ordered By: Yvon Becker on 02-21-2025 Creatinine [Mass/Vol] 0.73 mg/dL 0.70-1.20 [facility] Serum globulin measurementOr dered By: Yvon Becker on 02-21-2025 Globulin (S) [Mass/Vol] 2.9 g/dL 2.2-4.2 [facility] Serum glucose measurement (m ass/volume)Ordered By: Yvon Becker on 02-21-2025 Glucose [Mass/Vol] 94 mg/dL 70-99 [facility] Serum or plasma alanine daugherty otransferase (ALT) measurementOrdered By: Yvon Becker on 02-21-2025 ALT [Catalytic activity/Vol] 16 U/L <35 [facility] Comment on above: Hemolysis present, R esults could be affected. Serum or plasma albumin hong urement (mass/volume)Ordered By: Yvon Vizcarra on 02-21-2025 Albumin [Mass/Vol] 4.0 g/dL 3.5-5.0 [facility] Serum or plasma albumin/glob ulin mass ratioOrdered By: Yvon Becker on 02-21-2025 Albumin/Globulin [Mass ratio] 1.4 {ratio} 0.9-2.4 [facility] Serum or plasma alkaline katherine sphatase measurementOrdered By: Yvon Becker on 02-21-2025 ALP [Catalytic activity/Vol] 66 U/L 35-104 [facility] Comment on above: Hemolysis Present, R esults may be affected. Serum or plasma calcium hong urement (mass/volume)Ordered By: Yvon Vizcarra on 02-21-2025 Calcium [Mass/Vol] 9.2 mg/dL 7.6-11.0 [facility] Serum or plasma urea nitroge n measurement (mass/volume)Ordered By: Yvon Becker on 02-21-2025 Urea nitrogen [Mass/Vol] 11 mg/dL 4-19 [facility] Sodium levelOrdered By: Jone Becker on 02-21-2025 Sodium [Moles/Vol] 140 mmol/L 133-145 [facility] Squamous epithelial cells de tection in urine sediment by light microscopyOrdered By: Yvon Becker on 02-21-2025 Epithelial cells.squamous LM Ql (Urine sed) 0-5 SEEN /hpf 5-10 [facility] Total proteinOrdered By: Claude Becker on 02-21-2025 Protein [Mass/Vol] 6.9 g/dL 5.9-8.4 [facility] Urine clarityOrdered By: Claude Becker on 02-21-2025 Clarity (U) Clear Clear [facility] Urine color determinationOrd ered By: Yvon Becker on 02-21-2025 Color (U) Straw Yellow [facility] Urine glucose detectionOrder ed By: Yvon Becker on 02-21-2025 Glucose Ql (U) Normal mg/dl Normal [facility] Urine leukocyte esterase det ection by dipstickOrdered By: Yvon Becker on 02-21-2025 Leukocyte esterase Test strip Ql (U) Negative Negative [facility] Urine pHOrdered By: Yvon Arita on 02-21-2025 pH (U) 7.0 [pH] 5.0 - 8.0 [facility] Urine sediment bacteria coun t by microscopy (number/high power field)Ordered By: Yvon Becker on 02-21-2025 Bacteria LM.HPF (Urine sed) [#/Area] 0 /[HPF] None Seen [facility] Urine specific gravity measu rementOrdered By: Yvon Becker on 02-21-2025 Specific gravity (U) [Rel density] 1.010 1.002-1.030 [facility] Urine urobilinogen measureme ntOrdered By: Yvon Becker on 02-21-2025 Urobilinogen Ql (U) Normal mg/dl Normal [facility] White blood cell (WBC) count Ordered By: Yvon Becker on 02-21-2025 WBC (Bld) [#/Vol] 9.0 10*3/uL 4.4-11.0 [facility] White blood cell countOrdere d By: Yvon Becker on 02-21-2025 White blood cell count 0-5 SEEN /hpf 0-5 [facility] Discharge Instructionon 06 Discharge Instruction [facility] Medical Records Department [address] [place] [address] Instructions for Home/Discharge Instructions 02/14/25 1536 MR#: [id number] Acct: [id number] Name: SIA OLIVERA Rep #: [id number] : 1985 39 From: Desean Rodriguez MD PCP: Hui Valdes NP-C Status:REG [facility] Discharge Instructions Diet Discharge Diet: Light diet [...] Provider: Hui Valdes NP Instructions Print Language: Liberian Discharge Orders/Prescriptions Prescriptions: New oxycodone-acetaminophen [Percocet] 5-325 [...] Referrals / Follow Up: Hui Valdes NP, 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-C [Primary Care Provider] - Disposition Disposition (needs filled in before D/C Order can be placed): Home, Self Care 02/14/25 1546 Desean Rodriguez MD CC: 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-C Hui Podlogar Signed [facility] MR/POSTOP.[facility] 02-14-2025 MR/POSTOP.[facility] Medical Records Department [address] [place] [address] Anesthesia Postop Eval I 02/14/25 1554 MR#: [id number] Acct: [id number] Name: SIA OLIVERA Rep #: [id number] : 1985 39 From: Royce Gomez CRNA PCP: Hui Valdes 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-C Status:REG SDC Y Race: C Location: [place] [address] Anesthesia: Postop Eval I Current Vital Signs [...] document: Postop Eval 1 completed: Yes 02/14/25 9504 Date Royce Gomez FOREIGN SERVICE TEACHER Cosigner Signature: Date CC: Signed Normal [facility] MR/[id number] 02-14-2025 MR/POSTOPAN2 [facility] Medical Records Department [address] [place] [address] Anesthesia Postop Eval II 02/14/25 1637 MR#: [id number] Acct: [id number] Name: SIA OLIVERA Rep #: [id number] : 1985 39 From: Guille Shin MD PCP: KOSTA Gomez Status:REG SDC Y Race: C Location: [place] [address]- Anesthesia Postop Eval I Sum Postop Eval Completion status Anesthesia document: Postop Eval 1 completed: Yes Anesthesia Postop Eval I Summary Anesthesia Postop Eval I Summary: Anesthesia Postop Eval I: Assessment Summary Airway patent 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 Spontaneous unlabored 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 respirations Mental status Awake,Calm 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 nausea No 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 Vomiting No 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 Anesthesia Postop Eval I: Fluid Summary Crystalloid volume administer 1,000 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 (ml) Colloids volume administered ( ml) Blood Product volume administered (ml) Total IV fluid infused 1,000 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 Anesthesia Postop Eval I: Summary Notes Anesthesia Complication No 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 Anesthesia Complication Comment: Post-operative progress note Anesthesia: Postop Eval II Evaluation Mental status: Awake Pain Level: 0 nausea: No Vomiting: No Complications Anesthesia Complication: No 02/14/25 1637 Date Guille Shin MD Cosigner Signature: Date CC: Signed Normal [facility] Operative Reporton 5 Operative Report [facility] Medical Records Department [address] [place] [address] Operative Report 02/14/25 1546 MR#: [id number] Acct: [id number] Name: SIA OLIVERA Rep #: [id number] : 1985 39 From: Desean Rodriguez MD PCP: Hui Valdes 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-C Status:REG [facility] Location: [place] [address] Problems Associated Problem List Diagnoses (1) Ventral hernia: Procedures Digestive 40xxx-49xxx: 79583 RPR AA HRN 11-22 NCR/STRN Operative Report (Standard) Operative Information Date of Procedure: 02/14/25 Pre-Operative Diagnosis: Ventral hernia -chronically incarcerated Post-Operative Diagnosis: Same Surgery/Procedure Performed: Open ventral hernia repair with mesh quality assurance supervisor final: Yes Manager Safe: Kristine Larose Tasks completed by first leveler: Closing and Retracting Additional seed laboratory assistant?: No Type of Anesthesia: General and [...] prophylaxis not ordered: Treatment Not Indicated 02/14/25 0719 Cosigner Signature (if applicable): CC: KOSTA Ames Podlogar; Dr. Desean Rodriguez MD Signed Normal [facility] ,Urineon 02-14-2025 Beta HCG ( test) Ql (U) Negative Normal [facility] Comment on above: Result Comment: Very dilute urine specimens, as indicated by a low specific gravity, may not contain employee's representative levels of hCG. If is still suspected, a first morning urine specimen should be collected 48 hours later and tested. Performed By: #### L 400.7600 #### [facility] [place], [address] Surgery Specimen Level IIon 02-14-2025 Surgery Specimen Level II Patient Age/Sex Location Account Attending Physician AMANUELSIA MARX Mirza 39/F [facility] [id number] Dr. Desean Rodriguez MD Specimen: [id number] Received: 02/15/25 Status: ANALia Dorado Num: [id number] Spec Type: Hernia Subm Dr: Dr. Desean [...] vasculature. No nodules or necrosis is identified. Education Reporter sections:A1. Semisaccular portion with fibrous areasA2. Larger finely lobulated fragment [facility] 02-15-2025 CPT:06940 Patient Age/Sex Location Account Attending Physician SIA OLIVERA Miraz 39/F [facility] [id number] Dr. Desean Rodriguez MD Signed (signature on file) Dr. Joanna Ram MD 02/17/25 1314 Normal [facility] Comment on above: Performed By: #### P LYNDSEYII #### [facility] [address] [place] [address]. [place], [place], [address] Urine testOrdered By: Paul Cox on 02-14-2025 HCG ( test) Ql (U) Negative [facility] Comment on above: Very dilute urine sp ecimens, as indicated by a low specificgravity, may not contain employee's representative levels of hCG. If is still suspected, a first morning urinespecimen should be collected 48 hours later and tested. Surgery Visit Reporton 02-02 Surgery Visit Report [facility] [address] [place], [place] [address]nadine. [address] [place] [address] OFFICE VISIT Date of Service: 02/02/25 MR#: [id number] Acct: [id number] Name: SIA OLIVERA Mirza Rep #: [id number] : 1985 Provider: Dr. Desean ritter MD Age/Sex: 39/F Location: [facility] Status: Signed Intake Vital Signs 01/15/25 [...] General: cooperative, healthy appearing and comfortable [facility] Head: normal to inspection, normocephalic and [...] completely reducibl (more content not included)... Normal [facility] Abdomen/Pelvis W IV Cont ONL Yon 01-15-2025 Abdomen/Pelvis W IV Cont ONLY [facility] Imaging Services [address] [place] [address] Abdomen/Pelvis W IV Cont ONLY MR#: [id number] Acct: [id number] Name: SIA OLIVERA Rep #: [id number] : 1985 F 39 From: Seng zaman MD PCP: KOSTA Gomez Status: REG ER Study: Abdomen/Pelvis W IV Cont ONLY Date of Exam: Exam# [id number] Ordering Dr: Cierra Dinero PROCEDURE: ABDOMEN/PELVIS W [...] BURAKJUNITOREMI CC: KOSTA Ames Podlogar; YVAN Cadena Barrel Rifler: Signed Normal [facility] Absolute lymphocyte countOrd ered By: Cierra Dinero on 01-15-2025 Lymphocytes Auto (Unsp spec) [#/Vol] 3.13 10*3/uL 0.83-4.51 [facility] Absolute neutrophil countOrd ered By: Cierra Dinero on 01-15-2025 Neutrophils (Bld) [#/Vol] 5.2 10*3/uL 2.0-7.7 [facility] Anion gap in Serum or Plasma Ordered By: Cierra Dinero on 01-15-2025 Anion gap [Moles/Vol] 12 mmol/L 5- [facility] Automated lymphocyte count a s percentage of total leukocytesOrdered By: Cierra Dinero on 01-15-2025 Lymphocytes/100 WBC Auto (Unsp spec) 33.2 % 19-41 [facility] BUN/creatinine ratioOrdered By: Cierra Dinero on 01-15-2025 Urea nitrogen/Creatinine [Mass ratio] 14.5 mg/mg 10- [facility] Basic Metabolic Profile (BMP )on 01-15-2025 BUN/CRE 14.5 RATIO Normal - [facility] Comment on above: Performed By: #### L 500.2500, L100.0100 #### [facility] [address] [place], [address] Calcium [Mass/Vol] 9.2 mg/dL Normal 7.6-11.0 [facility] Comment on above: Performed By: #### L 500.2500, L100.0100 #### [facility] [address] [place], [address] Chloride [Moles/Vol] 104 mmol/L Normal 98-108 [facility] Comment on above: Performed By: #### L 500.2500, L100.0100 #### [facility] [address] [place], [address] CO2 [Moles/Vol] 22.8 mmol/L Normal 21.0-32.0 [facility] Comment on above: Performed By: #### L 500.2500, L100.0100 #### [facility] [address] [place], [address] Creatinine [Mass/Vol] 0.76 mg/dL Normal 0.70-1.20 [facility] Comment on above: Performed By: #### L 500.2500, L100.0100 #### [facility] [address] [place], [address] ECRCL 99.31 ml/min Normal 50-250 [facility] Comment on above: Performed By: #### L 500.2500, L100.0100 #### [facility] [address] [place], [address] GAP 12 Normal 5-15 [facility] Comment on above: Performed By: #### L 500.2500, L100.0100 #### [facility] [address] [place], [address] GFR/1.73 sq M.predicted among non-blacks MDRD (S/P/Bld) [Vol rate/Area] 103 mL/min/{1.73_m2} Normal >60 [facility] Comment on above: Result Comment: mL/m in/1.73m2 CKD-EPI Creatinine Equation (2020) Performed By: #### L 500.2500, L100.0100 #### [facility] [address] [place], [address] Glucose [Mass/Vol] 94 mg/dL Normal 70-99 [facility] Comment on above: Performed By: #### L 500.2500, L100.0100 #### [facility] [address] [place], [address] Potassium [Moles/Vol] 4.2 mmol/L Normal 3.3-5.1 [facility] Comment on above: Performed By: #### L 500.2500, L100.0100 #### [facility] [address] [place], [address] Sodium [Moles/Vol] 139 mmol/L Normal 133-145 [facility] Comment on above: Performed By: #### L 500.2500, L100.0100 #### [facility] [address] [place], [address] Urea nitrogen [Mass/Vol] 11 mg/dL Normal 4-19 [facility] Comment on above: Performed By: #### L 500.2500, L100.0100 #### [facility] [address] [place], [address] Basophil percentageOrdered B y: Cierra Dinero on 01-15-2025 Basophils/100 WBC (Bld) 1.1 % High 0-1 [facility] CBC W/Diff, Automatedon Absolute Lymph 3.13 X10 3/uL Normal 0.83-4.51 [facility] Comment on above: Performed By: #### L 500.2500, L100.0100 #### [facility] [address] [place], [address] Absolute Neut 5.2 X10 3/uL Normal 2.0-7.7 [facility] Comment on above: Performed By: #### L 500.2500, L100.0100 #### [facility] [address] [place], [address] Basophils/100 WBC (Bld) 1.1 % High 0-1 [facility] Comment on above: Performed By: #### L 500.2500, L100.0100 #### [facility] [address] [place], [address] Eosinophils/100 WBC (Bld) 2.0 % Normal 0-5 [facility] Comment on above: Performed By: #### L 500.2500, L100.0100 #### [facility] [address] [place], [address] Erythrocyte distribution width (RBC) [Ratio] 12.1 % Normal 11.6-14.6 [facility] Comment on above: Performed By: #### L 500.2500, L100.0100 #### [facility] [address] [place], [address] Hematocrit (Bld) [Volume fraction] 40.0 % Normal 37-47 [facility] Comment on above: Performed By: #### L 500.2500, L100.0100 #### [facility] [address] [place], [address] Hemoglobin (Bld) [Mass/Vol] 13.8 g/dL Normal 12.0-15.0 [facility] Comment on above: Performed By: #### L 500.2500, L100.0100 #### [facility] [address] [place], [address] IG% 0.200 Normal 0.0-0.9 [facility] Comment on above: Result Comment: IG% - Immature Granulocytes (promyelocytes, myelocytes and metamyelocytes) > 1% indicates that a LEFT SHIFT is Present. Performed By: #### L 500.2500, L100.0100 #### [facility] [address] [place], [address] Lymphocytes/100 WBC (Bld) 33.2 % Normal 19-41 [facility] Comment on above: Performed By: #### L 500.2500, L100.0100 #### [facility] [address] [place], [address] MCH (RBC) [Entitic mass] 31.4 pg Normal 27.0-32.0 [facility] Comment on above: Performed By: #### L 500.2500, L100.0100 #### [facility] [address] [place], [address] MCHC (RBC) [Mass/Vol] 34.5 g/dL Normal 32-36 [facility] Comment on above: Performed By: #### L 500.2500, L100.0100 #### [facility] [address] [place], [address] MCV (RBC) [Entitic vol] 91.1 fL Normal 81-99 [facility] Comment on above: Performed By: #### L 500.2500, L100.0100 #### [facility] [address] [place], [address] Monocytes/100 WBC (Bld) 8.8 % Normal 0-10 [facility] Comment on above: Performed By: #### L 500.2500, L100.0100 #### [facility] [address] [place], [address] Neutrophils/100 WBC (Bld) 54.7 % Normal 47-70 [facility] Comment on above: Performed By: #### L 500.2500, L100.0100 #### [facility] [address] [place], [address] Nucleated RBC (Bld) [#/Vol] 0 10*3/uL Normal 0-5 [facility] Comment on above: Performed By: #### L 500.2500, L100.0100 #### [facility] [address] [place], [address] Platelet mean volume (Bld) [Entitic vol] 8.9 fL Normal 6.2-12.0 [facility] Comment on above: Performed By: #### L 500.2500, L100.0100 #### [facility] [address] [place], [address] Platelets (Bld) [#/Vol] 365 10*3/uL Normal 150-450 [facility] Comment on above: Performed By: #### L 500.2500, L100.0100 #### [facility] [address] [place], [address] RBC (Bld) [#/Vol] 4.39 10*6/uL Normal 4.2-5.4 [facility] Comment on above: Performed By: #### L 500.2500, L100.0100 #### [facility] [address] [place], [address] RDW SD 40.7 fl Normal 35.1-43.9 [facility] Comment on above: Performed By: #### L 500.2500, L100.0100 #### [facility] [address] [place], [address] WBC (Bld) [#/Vol] 9.4 10*3/uL Normal 4.4-11.0 [facility] Comment on above: Performed By: #### L 500.2500, L100.0100 #### [facility] [address] [place], [address] Carbon dioxide, total [Moles /volume] in Central venous bloodOrdered By: Cierra Dinero on 01-15-2025 CO2 [Moles/Vol] 22.8 mmol/L 21.0-32.0 [facility] Chloride assayOrdered By: Mona Dinero on 01-15-2025 Chloride [Moles/Vol] 104 mmol/L 98-108 [facility] Emergency Department Summary on 01-15-2025 Emergency Department Summary [facility] Medical Records Department [address] [place] [address] Emergency Department Summary 01/15/25 MR#: [id number] Acct: [id number] Name: SIA OLIVERA Mirza Rep #: [id number] : 1985 39 From: Cierra SANTORO PCP: Hui Valdes 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 Normal [facility] Eosinophil percentageOrdered By: Cierra Dinero on 01-15-2025 Eosinophils/100 WBC (Bld) 2.0 % 0-5 [facility] Erythrocyte distribution wid th ratioOrdered By: Cierra Dinero on 01-15-2025 Erythrocyte distribution width (RBC) [Ratio] 12.1 % 11.6-14.6 [facility] Erythrocyte distribution wid th standard deviationOrdered By: Cierra Dinero on 01-15-2025 Erythrocyte distribution width (RBC) [Ratio] 40.7 fl 35.1-43.9 [facility] Glomerular filtration rate ( GFR) estimation/1.73 sq m using serum, plasma, or whole bOrdered By: Cierra Dinero on 01-15-2025 GFR/1.73 sq M.predicted among non-blacks MDRD (S/P/Bld) [Vol rate/Area] 103 mL/min/{1.73_m2} >60 [facility] Comment on above: mL/min/1.73m2 CKD-EP I Creatinine Equation (2020) Hematocrit Auto (Bld) [Volum e fraction]Ordered By: Cierra Dinero on 01-15-2025 Hematocrit (Bld) [Volume fraction] 40.0 % 37-47 [facility] Hemoglobin measurementOrdere d By: Cierra Dinero on 01-15-2025 Hemoglobin (Bld) [Mass/Vol] 13.8 g/dL 12.0-15.0 [facility] Immature granulocytes/100 WB C Auto (Bld)Ordered By: Cierra Dinero on 01-15-2025 Immature granulocytes/100 WBC (Bld) 0.200 % 0.0-0.9 [facility] Comment on above: IG% - Immature Granu locytes (promyelocytes, myelocytes and metamyelocytes) > 1% indicates that a LEFT SHIFT is Present. MCV (mean corpuscular volume ) determinationOrdered By: Cierra Dinero on 01-15-2025 MCV (RBC) [Entitic vol] 91.1 fL 81-99 [facility] Mean corpuscular hemoglobin (MCH) determinationOrdered By: Cierra Dinero on 01-15-2025 MCH (RBC) [Entitic mass] 31.4 pg 27.0-32.0 [facility] Mean corpuscular hemoglobin concentration (MCHC) determinationOrdered By: Cierra Dinero on 01-15-2025 MCHC (RBC) [Mass/Vol] 34.5 g/dL 32-36 [facility] Mean platelet volume determi nationOrdered By: Cierra Dinero on 01-15-2025 Platelet mean volume (Bld) [Entitic vol] 8.9 fL 6.2-12.0 [facility] Monocyte percentageOrdered B y: Cierra Dinero on 01-15-2025 Monocytes/100 WBC (Bld) 8.8 % 0-10 [facility] Neutrophil percentageOrdered By: Cierra Dinero on 01-15-2025 Neutrophils/100 WBC (Bld) 54.7 % 47-70 [facility] Nucleated red blood cell per centageOrdered By: Cierra Dinero on 01-15-2025 Nucleated RBC/100 WBC (Bld) [Ratio] 0 % 0-5 [facility] Platelet countOrdered By: Mona Dinero on 01-15-2025 Platelets (Bld) [#/Vol] 365 10*3/uL 150-450 [facility] Potassium measurement (mass/ volume)Ordered By: Cierra Dinero on 01-15-2025 Potassium (Unsp spec) [Mass/Vol] 4.2 mmol/L 3.3-5.1 [facility] RBC Auto (Bld) [#/Vol]Ordere d By: Cierra Dinero on 01-15-2025 RBC (Bld) [#/Vol] 4.39 10*6/uL 4.2-5.4 [facility] Serum creatinine measurement (mass/volume)Ordered By: Cierra Dinero on 01-15-2025 Creatinine [Mass/Vol] 0.76 mg/dL 0.70-1.20 [facility] Serum glucose measurement (m ass/volume)Ordered By: Cierra Dinero on 01-15-2025 Glucose [Mass/Vol] 94 mg/dL 70-99 [facility] Serum or plasma calcium hong urement (mass/volume)Ordered By: Cierra Dinero on 01-15-2025 Calcium [Mass/Vol] 9.2 mg/dL 7.6-11.0 [facility] Serum or plasma urea nitroge n measurement (mass/volume)Ordered By: Cierra Dinero on 01-15-2025 Urea nitrogen [Mass/Vol] 11 mg/dL 4-19 [facility] Sodium levelOrdered By: Regino Dinero on 01-15-2025 Sodium [Moles/Vol] 139 mmol/L 133-145 [facility] White blood cell (WBC) count Ordered By: Cierra Dinero on 01-15-2025 WBC (Bld) [#/Vol] 9.4 10*3/uL 4.4-11.0 [facility] CNOVon 12-31-2024 CNOV Office Visit (FAMPWS ) -- SIA OLIVERA ([id number]) 1985 F Date Time Provider Department 12/31/24 1:00 PM HUI VALDES During your visit today, we recorded the following information about you: Pulse Respiration Blood pressure Weight 100/minute 16/minute 122/78 74.4 kg Hui Valdes APRN.DIRECTOR RECORDS MANAGEMENT 12/31/2024 1:48 PM Signed 12/29/2024 Patient presents [...] remission, most recent episode mixed ([facility]) 10/04/2019 Depression, major, recurrent, moderate ([facility]) 07/07/2018 Diet controlled gestational diabetes mellitus (GDM) in second trimester ([facility]) 07/05/2022 Drug use disorder remission since 06/2019; methamphetamines, marijuana Gastritis due to Helicobacter species 11/26/2021 Genital warts 1--09 Never seen again GERD without esophagitis 02/08/2022 Grand multiparity 09/11/2022 - history 4 prior SVDs, this will be delivery #5 - admission CBC 11.9 Group B Streptococcus carrier, antepartum ([facility]) 07/26/2021 Sensitive to Vanc Hemorrhoids Herpes [...] in , antepartum, second trimester ([facility]) 03/28/2022 Urogenital trichomoniasis 2017 Not totally [...] - 34 (more content not included)... Normal [facility] SIA [facility]A ([id number]) 1985 F Date Time Provider Department 12/28/24 TEMITOPE BEAR During your visit today, we recorded the following information about you: Frances Parnell RN 12/28/2024 4:43 PM Signed Received the following message from [facility]: Patient is requesting to have their [...] for IUD removal [Z30.432] Order(s):REMOVE INTRAUTERINE DEVICE [[id number]] Order #: [id number] Prescriptions as of 12/29/2024 - venlafaxine ER [...] Status:Closed by SONYA MONTELONGO on 12/29/24 Normal [facility] BACTERIAL VAGINOSIS NAATon 0 2- Lactobacillus crispatus+gasseri+tanner senii + Gardnerella vaginalis + Atopobium vaginae rRNA CASSIDY+probe Ql (Vag fld) Not detected Normal Not detected [facility] Comment on above: Order Comment: Speci men Type: BLOOD SPECIMEN Ordering Facility: [facility] Address: [address] [place] [address] Performed By: #### 3 1201-7, 42944-1, 5195-3 #### [facility] CLIA [id number] [address] [place] [address] [place] C. trachomatis+N. gonorrhoea e DNA CASSIDY+probe Ql (Unsp spec)on 10-18-2024 C. trachomatis rRNA CASSIDY+probe Ql (Unsp spec) Not detected Normal Not detected [facility] Comment on above: Order Comment: Speci men Type: BLOOD SPECIMEN Ordering Facility: [facility] Address: [address] [place] [address] Performed By: #### 3 1201-7, 56104-4, 5195-3 #### [facility] CLIA [id number] [address] [place] [address] [place] N. gonorrhoeae rRNA CASSIDY+probe Ql (Unsp spec) Not detected Normal Not detected [facility] Comment on above: Order Comment: Speci men Type: BLOOD SPECIMEN Ordering Facility: [facility] Address: [address] [place] [address] Performed By: #### 3 1201-7, 03041-8, 5195-3 #### [facility] CLIA [id number] [address] [place] [address] [place] ALEX/TRICHOMONAS NAATon 0 10-18-2024 C. glabrata RNA CASSIDY+probe Ql (Vag fld) Not detected Normal Not detected [facility] Comment on above: Order Comment: Speci men Type: BLOOD SPECIMEN Ordering Facility: [facility] Address: [address] [place] [address] Performed By: #### 3 1201-7, 63881-4, 5195-3 #### [facility] CLIA [id number] [address] [place] [address] [place] Alex sp DNA CASSIDY+probe Ql (Vag fld) Not detected Normal Not detected [facility] Comment on above: Order Comment: Speci men Type: BLOOD SPECIMEN Ordering Facility: [facility] Address: [address] [place] [address] Result Comment: The Alex species group target includes C. albicans, C. tropicalis, C. parapsilosis, and C. dubliniensis. Performed By: #### 3 1201-7, 71969-8, 5195-3 #### [facility] CLIA [id number] [address] [place] [address] [place] T. vaginalis DNA CASSIDY+probe Ql (Unsp spec) Not detected Normal Not detected [facility] Comment on above: Order Comment: Speci men Type: BLOOD SPECIMEN Ordering Facility: [facility] Address: [address] [place] [address] Performed By: #### 3 1201-7, 88074-4, 5195-3 #### [facility] CLIA [id number] [address] [place] [address] [place] CNOVon 10-18-2024 CNOV Office Visit (OBGYWM ) -- SIA OLIVERA ([id number]) 1985 F Date Time Provider Department 10/18/24 [...] L5 SAB0 IAB1 Ectopic0 Multiple0 Live Births5 Alterations Supervisor History LMP: 10/11/2024 (Approximate), IUD Age at Menarche: 9 Age at First : 21 Age at Menopause: Alterations Supervisor History Comments: Sexual Activity: Yes; Male Contraception: [...] SECTION HX EGD DIAGNOSTIC 01/17/2023 INDUCED BY [facility] 2008 FAMILY HISTORY Problem Relation Age of [...] discussed with the Patient or Patient's Authorized Education Reporter. As applicable, any other physician, advance practice provider, medical student, or other health professional student that will be observing or involved in the sensitive examination for educational or training purposes was discussed with the Patient or Authorized Education Reporter. The Patient or Authorized Education Reporter has agreed to proceed with the sensitive examination. (Sensitive examination includes inspection and/or palpation of the breasts, pelvis, prostate and anorectal regions). EXAM: BP 126/74 Ht 5' 4 (1.63m) Wt 167 lb (75.8kg) LMP 10/11/2024 BMI 28.65 kg/(m2). GENERAL: pleasant, fe (more content not included)... Normal [facility] HBV surface Ag Ser Qlon 02-0 HBV surface Ag Ql (S) Negative Normal Negative [facility] Comment on above: Order Comment: Speci men Type: BLOOD SPECIMEN Ordering Facility: [facility] Address: [address] [place] [address] Performed By: #### 3 1201-7, 65434-2, 5195-3 #### [facility] CLIA [id number] [address] [place] [address] [place] HCV Ab Ser Qlon 10-18-2024 HCV Ab Ql (S) Negative Normal Negative [facility] Comment on above: Order Comment: Speci men Type: BLOOD SPECIMEN Ordering Facility: [facility] Address: [address] [place] [address] Result Comment: The result suggests no evidence of active infection with Hepatitis C virus. Should recent infection be suspected, repeat testing may be considered 4-6 weeks after this draw. Performed By: #### 3 1201-7, 65704-8, 5195-3 #### [facility] CLIA [id number] [address] [place] [address] [place] HIGH RISK HUMAN PAPILLOMA DONATO (HPV), PCR FOR DETECTION AND GENOTYPINGon 10-18-2024 HPV 16 Ag Ql (Unsp spec) Not detected Normal Not detected [facility] Comment on above: Order Comment: Speci men Type: FLUID SPECIMEN Ordering Facility: [facility] Address: [address] [place] [address] Performed By: #### H PVHRT #### [facility] CLIA [id number] [address] [place] [address] [place] HPV 18 Ag Ql (Unsp spec) Not detected Normal Not detected [facility] Comment on above: Order Comment: Speci men Type: FLUID SPECIMEN Ordering Facility: [facility] Address: [address] [place] [address] Performed By: #### H PVHRT #### [facility] CLIA [id number] [address] [place] [address] [place] HPV 31+33+35+39+45+51+52+ 56+58+59+66+68 DNA CASSIDY+probe Ql (Cvx) Not detected Normal Not detected [facility] Comment on above: Order Comment: Speci men Type: FLUID SPECIMEN Ordering Facility: [facility] Address: [address] [place] [address] Result Comment: High Risk HPV Other Type includes HPV types 31, 33, 35, 39, 45, 51, 52, 56, 58, 59, 66 and 68. Performed By: #### H PVHRT #### [facility] CLIA [id number] [address] [place] [address] [place] HIV 1+2 Ab IA Qlon 5 HIV 1 and 2 Ab IA.rapid Nom (S/P/Bld) Normal [facility] Comment on above: Order Comment: Speci men Type: BLOOD SPECIMEN Ordering Facility: [facility] Address: [address] [place] [address] Result Comment: Test not indicated. Performed By: #### 3 1201-7, 74542-8, 5195-3 #### [facility] CLIA [id number] [address] [place] [address] [place] HIV 1+2 Ab+HIV1 p24 Ag IA Ql Non-Reactive Normal Nonreactive [facility] Comment on above: Order Comment: Speci men Type: BLOOD SPECIMEN Ordering Facility: [facility] Address: [address] [place] [address] Performed By: #### 3 1201-7, 01075-7, 5195-3 #### [facility] CLIA [id number] [address] [place] [address] [place] HIV immunoassay testing algorithm interpretation (S/P/Bld) [Interp] Normal [facility] Comment on above: Order Comment: Speci men Type: BLOOD SPECIMEN Ordering Facility: [facility] Address: [address] [place] [address] Result Comment: No e vidence of HIV-1 or HIV-2 infection. Should recent infection be suspected, repeat testing may be considered 2-3 weeks after this draw. [place] Rev. Code 3701.243(E): This information has been [...] or diagnoses. Performed By: #### 3 1201-7, 40345-0, 5195-3 #### [facility] CLIA [id number] [address] [place] [address] [place] PAP TESTon 10-18-2024 ADEQUACY Satisfactory for interpretation. Normal [facility] Comment on above: Order Comment: Speci men Type: FLUID SPECIMEN Ordering Facility: [facility] Address: [address] [place] [address] Performed By: #### L [id number] #### [facility] CLIA [id number] [address] [place] [address] [place] CASE REPORT Normal [facility] Comment on above: Order Comment: Speci men Type: FLUID SPECIMEN Ordering Facility: [facility] Address: [address] [place] [address] Result Comment: Gyne cologic Cytology Report Case: [id number] Authorizing Provider: Temitope Bear APRN.CNM Collected: 10/18/2024 10:44 AM Ordering Location: OB/Gynecology Received: 10/18/2024 12:00 PM First Screen: Renteria, Serena, CT, ASCP Pathologist: Iwona Turner MD Specimen: Pap Test, ThinPrep, Cervix Performed By: #### L [id number] #### [facility] CLIA [id number] [address] [address] [place] CLINICAL HISTORY, CYTOLOGY, MILL MANAGER Routine Exam Normal [facility] Comment on above: Order Comment: Speci men Type: FLUID SPECIMEN Ordering Facility: [facility] Address: [address] [place] [address] Result Comment: Prev ious ASCUS Intra Uterine Device, No Menses Performed By: #### L [id number] #### [facility] CLIA [id number] [address] [place] [address] [place] CYTOLOGY PAP OTHER INTERPRETATION Normal [facility] Comment on above: Order Comment: Speci men Type: FLUID SPECIMEN Ordering Facility: [facility] Address: [address] [place] [address] Result Comment: Bact eria present morphologically consistent with Actinomyces species. Acute inflammation. Performed By: #### L [id number] #### [facility] CLIA [id number] [address] [place] [address] [place] FINAL PERFORMING LAB Normal [facility] Comment on above: Order Comment: Speci men Type: FLUID SPECIMEN Ordering Facility: [facility] Address: [address] [place] [address] Result Comment: Tech nical component, pull up hand screening performed at [facility], [address] [facility], [place] [address] CLIA# [id number] Diagnostic interpretation performed at [facility], [address] [place] [address] CLIA# [id number] Dramatic Reader: Madelyn Day M.D. Performed By: #### L [id number] #### [facility] CLIA [id number] [address] [place] [address] [place] INTERPRETATION, CYTOLOGY, MILL MANAGER Normal [facility] Comment on above: Order Comment: Speci men Type: FLUID SPECIMEN Ordering Facility: [facility] Address: [address] [place] [address] Result Comment: Nega tive for intraepithelial lesion or malignancy. at 0841 EST Performed By: #### L [id number] #### [facility] CLIA [id number] [address] [place] [address] [place] PAP DISCLAIMER COMMENT The Pap Smear is a screening test for cervical cancer. False negative results occur with all screening tests, emphasizing the need for rescreening at recommended intervals, and clinical correlation. Normal [facility] Comment on above: Order Comment: Speci men Type: FLUID SPECIMEN [facility]ing Facility: [facility] Address: [address] [place] [address] Performed By: #### L [id number] #### [facility] IA [id number] [address] [place], [place] [id number] [place] PAP FISHER LAMPARA NET COMMENT This specimen has be en analyzed by the ThinPrep Imaging System, an automated imaging and review system, which assists the laboratory in evaluating cells on ThinPrep Pap tests. Following automated imaging, selected cobb from every slide are reviewed by a pull up hand. Normal [facility] Comment on above: Order Comment: Speci men Type: FLUID SPECIMEN Ordering Facility: [facility] Address: [address] [place] [address] Performed By: #### L [id number] #### [facility] IA [id number] [address] [place] [address] [place] Reagin and Treponema pallidu m IgG and IgM [Interp]on 10-18-2024 T. pallidum IgG+IgM IA Ql (S) Non-Reactive Normal Nonreactive [facility] Comment on above: Order Comment: Janis covington Type: BLOOD SPECIMEN [facility]ing Facility: [facility] Address: [address] [place] [address] Performed By: #### 3 1201-7, 15206-1, 5195-3 #### [facility] CLIA [id number] [address] [place] [address] [place] Reagin+T pallidum IgG+IgM Se rPl-Impon 10-18-2024 Reagin and Treponema pallidum IgG and IgM [Interp] Cannot exclude recent Treponemal infection if specimen collected within 7-10 days after appearance of suspect lesions or 2-3 weeks after an exposure. Clinical correlation is required. Normal [facility] Comment on above: Order Comment: Janis covington Type: BLOOD SPECIMEN [facility] Facility: [facility] Address: [address] [place] [address] Performed By: #### 3 1201-7, 00467-0, 5195-3 #### [facility] CLIA [id number] [address] [place] [address] [place] [facility] 08-[facility] SIA OLIVERA ([id number]) 1985 F Date Time Provider Department 08/13/24 NO PCP NETNAV During your visit today, we recorded the following information about you: Rebecca Rhodes 08/13/2024 3:44 PM Signed [facility] [employer]RE[employer] Action/ attempt, call placed to pt for PT consult for OAB (overactive bladder) [N32.81]. Order is dated 07/05/24. Pt declined to [facility] at this time. Pt plans to go [...] Status:Closed by REBECCA RHODES on 08/13/24 Normal [facility] CBC W Auto Differential pane l (Bld)on 07-08-2024 Basophils (Bld) [#/Vol] 0.07 10*3/uL Normal <0.11 [facility] Comment on above: Order Comment: Speci men Type: BLOOD SPECIMEN [facility]ing Facility: [facility] Address: [address] [place] [address] Performed By: #### 5 7021-8 #### [facility] CLIA [id number] [address] [place] [address] [place] Basophils/100 WBC (Bld) 0.9 % Normal [facility] Comment on above: Order Comment: Speci men Type: BLOOD SPECIMEN Ordering [facility]: [facility] Address: [address] [place] [address] Performed By: #### 5 7021-8 #### [facility] CLIA [id number] [address] [place] [address] [place] Differential cell count method Nom (Bld) Auto Normal [facility] Comment on above: Order Comment: Speci men Type: BLOOD SPECIMEN Ordering [facility]: [facility] Address: [address] [place] [address] Performed By: #### 5 7021-8 #### [facility] CLIA [id number] [address] [place] [address] [place] Eosinophils (Bld) [#/Vol] 0.14 10*3/uL Normal <0.46 [facility] Comment on above: Order Comment: Speci men Type: BLOOD SPECIMEN Ordering Facility: [facility] Address: [address] [place] [address] Performed By: #### 5 7021-8 #### [facility] CLIA [id number] [address] [place] [address] [place] Eosinophils/100 WBC (Bld) 1.8 % Normal [facility] Comment on above: Order Comment: Speci men Type: BLOOD SPECIMEN Ordering Facility: [facility] Address: [address] [place] [address] Performed By: #### 5 7021-8 #### [facility] CLIA [id number] [address] [place] [address] [place] Erythrocyte distribution width (RBC) [Ratio] 12.2 % Normal 11.5-15.0 [facility] Comment on above: Order Comment: Speci men Type: BLOOD SPECIMEN Ordering Facility: [facility] Address: [address] [place] [address] Performed By: #### 5 7021-8 #### [facility] CLIA [id number] [address] [place] [address] [place] Hematocrit (Bld) [Volume fraction] 41.2 % Normal 36.0-46.0 [facility] Comment on above: Order Comment: Speci men Type: BLOOD SPECIMEN Ordering Facility: [facility] Address: [address] [place] [address] Performed By: #### 5 7021-8 #### [facility] CLIA [id number] [address] [place] [address] [place] Hemoglobin (Bld) [Mass/Vol] 13.6 g/dL Normal 11.5-15.5 [facility] Comment on above: Order Comment: Speci men Type: BLOOD SPECIMEN Ordering Facility: [facility] Address: [address] [place] [address] Performed By: #### 5 7021-8 #### [facility] CLIA [id number] [address] [place] [address] [place] Immature granulocytes (Bld) [#/Vol] 0.03 10*3/uL Normal <0.10 [facility] Comment on above: Order Comment: Speci men Type: BLOOD SPECIMEN Ordering Facility: [facility] Address: [address] [place] [address] Performed By: #### 5 7021-8 #### [facility] CLIA [id number] [address] [place] [address] [place] Immature granulocytes/100 WBC (Bld) 0.4 % Normal [facility] Comment on above: Order Comment: Speci men Type: BLOOD SPECIMEN Ordering [facility]: [facility] Address: [address] [place] [address] Performed By: #### 5 7021-8 #### [facility] CLIA [id number] [address] [place] [address] [place] Lymphocytes (Bld) [#/Vol] 2.90 10*3/uL Normal 1.00-4.00 [facility] Comment on above: Order Comment: Speci men Type: BLOOD SPECIMEN Ordering [facility]: [facility] Address: [address] [place] [address] Performed By: #### 5 7021-8 #### [facility] CLIA [id number] [address] [place] [address] [place] Lymphocytes/100 WBC (Bld) 38.2 % Normal [facility] Comment on above: Order Comment: Speci men Type: BLOOD SPECIMEN Ordering [facility]: [facility] Address: [address] [place] [address] Performed By: #### 5 7021-8 #### [facility] CLIA [id number] [address] [place] [address] [place] MCH (RBC) [Entitic mass] 31.0 pg Normal 26.0-34.0 [facility] Comment on above: Order Comment: Speci men Type: BLOOD SPECIMEN Ordering [facility]: [facility] Address: [address] [place] [address] Performed By: #### 5 7021-8 #### [facility] CLIA [id number] [address] [place] [address] [place] MCHC (RBC) [Mass/Vol] 33.0 g/dL Normal 30.5-36.0 [facility] Comment on above: Order Comment: Speci men Type: BLOOD SPECIMEN Ordering [facility]: [facility] Address: [address] [place] [address] Performed By: #### 5 7021-8 #### [facility] CLIA [id number] [address] [place] [address] [place] MCV (RBC) [Entitic vol] 93.8 fL Normal 80.0-100.0 [facility] Comment on above: Order Comment: Speci men Type: BLOOD SPECIMEN Ordering Facility: [facility] Address: [address] [place] [address] Performed By: #### 5 7021-8 #### [facility] CLIA [id number] [address] [place] [address] [place] Monocytes (Bld) [#/Vol] 0.71 10*3/uL Normal <0.87 [facility] Comment on above: Order Comment: Speci men Type: BLOOD SPECIMEN Ordering Facility: [facility] Address: [address] [place] [address] Performed By: #### 5 7021-8 #### [facility] CLIA [id number] [address] [place] [address] [place] Monocytes/100 WBC (Bld) 9.4 % Normal [facility] Comment on above: Order Comment: Speci men Type: BLOOD SPECIMEN Ordering Facility: [facility] Address: [address] [place] [address] Performed By: #### 5 7021-8 #### [facility] CLIA [id number] [address] [place] [address] [place] Neutrophils (Bld) [#/Vol] 3.74 10*3/uL Normal 1.45-7.50 [facility] Comment on above: Order Comment: Speci men Type: BLOOD SPECIMEN Ordering Facility: [facility] Address: [address] [place] [address] Performed By: #### 5 7021-8 #### [facility] CLIA [id number] [address] [place] [address] [place] Neutrophils/100 WBC (Bld) 49.3 % Normal [facility] Comment on above: Order Comment: Speci men Type: BLOOD SPECIMEN Ordering [facility]: [facility] Address: [address] [place] [address] Performed By: #### 5 7021-8 #### [facility] CLIA [id number] [address] [place] [address] [place] Nucleated RBC (Bld) [#/Vol] 10*3/uL Normal <0.01 [facility] Comment on above: Order Comment: Speci men Type: BLOOD SPECIMEN Ordering Facility: [facility] Address: [address] [place] [address] Performed By: #### 5 7021-8 #### [facility] CLIA [id number] [address] [place] [address] [place] Nucleated RBC/100 WBC (Bld) [Ratio] 0.0 /100 WBC Normal [facility] Comment on above: Order Comment: Speci men Type: BLOOD SPECIMEN Ordering Facility: [facility] Address: [address] [place] [address] Performed By: #### 5 7021-8 #### [facility] CLIA [id number] [address] [place] [address] [place] Platelet mean volume (Bld) [Entitic vol] 9.5 fL Normal 9.0-12.7 [facility] Comment on above: Order Comment: Speci men Type: BLOOD SPECIMEN Ordering Facility: [facility] Address: [address] [place] [address] Performed By: #### 5 7021-8 #### [facility] CLIA [id number] [address] [place] [address] [place] Platelets (Bld) [#/Vol] 354 10*3/uL Normal 150-400 [facility] Comment on above: Order Comment: Speci men Type: BLOOD SPECIMEN Ordering Facility: [facility] Address: [address] [place] [address] Performed By: #### 5 7021-8 #### [facility] CLIA [id number] [address] [place] [address] [place] RBC (Bld) [#/Vol] 4.39 10*6/uL Normal 3.90-5.20 [facility] Comment on above: Order Comment: Speci men Type: BLOOD SPECIMEN Ordering [facility] Address: [address] [place] [address] Performed By: #### 5 7021-8 #### [facility] CLIA [id number] [address] [place] [address] [place] WBC (Bld) [#/Vol] 7.59 10*3/uL Normal 3.70-11.00 [facility] Comment on above: Order Comment: Speci men Type: BLOOD SPECIMEN Ordering [facility]: [facility] Address: [address] [place] [address] Performed By: #### 5 7021-8 #### [facility] CLIA [id number] [address] [place] [address] [place] Comprehensive metabolic 2000 panelon 07-08-2024 Albumin [Mass/Vol] 4.2 g/dL Normal 3.9-4.9 [facility] Comment on above: Order Comment: Speci men Type: BLOOD SPECIMEN Ordering Facility: [facility] Address: [address] [place] [address] Performed By: #### 3 1201-7, 70448-1, 5195-3 #### [facility] CLIA [id number] [address] [place] [address] [place] ALP [Catalytic activity/Vol] 41 U/L Normal 34-123 [facility] Comment on above: Order Comment: Speci men Type: BLOOD SPECIMEN Ordering Facility: [facility] Address: [address] [place] [address] Performed By: #### 3 1201-7, 53201-0, 5195-3 #### [facility] CLIA [id number] [address] [place] [address] [place] ALT [Catalytic activity/Vol] 10 U/L Normal 7-38 [facility] Comment on above: Order Comment: Speci men Type: BLOOD SPECIMEN Ordering [facility]: [facility] Address: [address] [place] [address] Performed By: #### 3 1201-7, 74189-1, 5195-3 #### [facility] CLIA [id number] [address] [place] [address] [place] Anion gap [Moles/Vol] 10 mmol/L Normal 8-15 [facility] Comment on above: Order Comment: Speci men Type: BLOOD SPECIMEN Ordering [facility]: [facility] Address: [address] [place] [address] Performed By: #### 3 1201-7, 96937-7, 5-3 #### [facility] CLIA [id number] [address] [place] [address] [place] AST [Catalytic activity/Vol] 13 U/L Normal 13-35 [facility] Comment on above: Order Comment: Speci men Type: BLOOD SPECIMEN Ordering [facility]: [facility] Address: [address] [place] [address] Performed By: #### 3 1201-7, 77917-7, 5195-3 #### [facility] CLIA [id number] [address] [place] [address] [place] Bilirubin [Mass/Vol] 0.7 mg/dL Normal 0.2-1.3 [facility] Comment on above: Order Comment: Speci men Type: BLOOD SPECIMEN Ordering Facility: [facility] Address: [address] [place], [place] [address] Performed By: #### 3 1201-7, 79782-7, 5195-3 #### [facility] CLIA [id number] [address] [place] [address] [place] Calcium [Mass/Vol] 9.0 mg/dL Normal 8.5-10.2 [facility] Comment on above: Order Comment: Speci men Type: BLOOD SPECIMEN Ordering [facility] Address: [address] [place] [address] Performed By: #### 3 1201-7, 31675-4, 5195-3 #### [facility] CLIA [id number] [address] [place] [address] [place] Chloride [Moles/Vol] 106 mmol/L Normal 98-107 [facility] Comment on above: Order Comment: Speci men Type: BLOOD SPECIMEN Order[facility] Address: [address] [place] [address] Performed By: #### 3 1201-7, 78461-4, 5195-3 #### [facility] CLIA [id number] [address] [place] [address] [place] CO2 [Moles/Vol] 24 mmol/L Normal 22-30 [facility] Comment on above: Order Comment: Speci men Type: BLOOD SPECIMEN Ordering Facility: [facility] Address: [address] [place] [address] Performed By: #### 3 1201-7, 64318-5, 5195-3 #### [facility] CLIA [id number] [address] [place] [address] [place] Creatinine [Mass/Vol] 0.84 mg/dL Normal 0.58-0.96 [facility] Comment on above: Order Comment: Speci men Type: BLOOD SPECIMEN Ordering Facility: [facility] Address: [address] [place] [address] Performed By: #### 3 1201-7, 24555-5, 5195-3 #### [facility] CLIA [id number] [address] [place] [address] [place] Creatinine and Glomerular filtration rate.predicted panel (S/P/Bld) 91 mL/min/1.73m??? Normal >=60 [facility] Comment on above: Order Comment: Janis covington Type: BLOOD SPECIMEN Order[facility] Address: [address] [place] [address] Result Comment: Grace mated Glomerular Filtration Rate [...] actual GFR. Performed By: #### 3 1201-7, 24058-6, 5195-3 #### [facility] CLIA [id number] [address] [place] [address] [place] Glucose [Mass/Vol] 96 mg/dL Normal 74-99 [facility] Comment on above: Order Comment: Janis covington Type: BLOOD SPECIMEN Order[facility] Address: [address] [place] [address] Result Comment: The [place] Diabetes Association (ADA) provides guidance for cutoff [...] Standards of Medical Care in Diabetes 2016, [place] [employer]. Diabetes Care. 2016.39(Suppl 1). Performed By: #### 3 1201-7, 36302-0, 5-3 #### [facility] CLIA [id number] [address] [place] [address] [place] Potassium [Moles/Vol] 3.7 mmol/L Normal 3.7-5.1 [facility] Comment on above: Order Comment: Speci men Type: BLOOD SPECIMEN Order[facility] Address: [address] [place] [address] Performed By: #### 3 1201-7, 16175-8, 5194-3 #### [facility] CLIA [id number] [address] [place] [address] [place] Protein [Mass/Vol] 6.5 g/dL Normal 6.3-8.0 [facility] Comment on above: Order Comment: Speci men Type: BLOOD SPECIMEN Order[facility] Address: [address] [place] [address] Performed By: #### 3 1201-7, 61956-7, 3 #### [facility] CLIA [id number] [address] [place] [address] [place] Sodium [Moles/Vol] 140 mmol/L Normal 136-144 [facility] Comment on above: Order Comment: Speci men Type: BLOOD SPECIMEN Order[facility] Address: [address] [place] [address] Performed By: #### 3 1201-7, 04480-3, 3 #### [facility] CLIA [id number] [address] [place] [address] [place] Urea nitrogen [Mass/Vol] 11 mg/dL Normal 7-21 [facility] Comment on above: Order Comment: Speci men Type: BLOOD SPECIMEN Order[facility] Address: [address] [place] [address] Performed By: #### 3 1201-7, 94335-1, 5194-3 #### [facility] CLIA [id number] [facility] [place] [address] [place] Lipid 1996 panelon 4 Cholesterol [Mass/Vol] 191 mg/dL Normal <200 [facility] Comment on above: Order Comment: Speci men Type: BLOOD SPECIMEN Ordering [facility]: [facility] Address: [address] [place] [address] Result Comment: <200 mg/dL, Desirable 200-239 mg/dL, Borderline high >239 mg/dL, High Performed By: #### 3 1201-7, 56493-4, 5194-3 #### [facility] CLIA [id number] [address] [place] [address] [place] Cholesterol in HDL [Mass/Vol] 35 mg/dL Low >39 [facility] Comment on above: Order Comment: Speci men Type: BLOOD SPECIMEN Ordering Facility: [facility] Address: [address] [place] [address] Result Comment: 40-5 9 mg/dL, Acceptable >59 mg/dL, High: Negative risk factor for coronary heart disease <40 mg/dL, Low: Positive risk factor for coronary heart disease Performed By: #### 3 1201-7, 31872-3, 5194-3 #### [facility] CLIA [id number] [address] [place] [address] [place] Cholesterol in LDL [Mass/Vol] 136 mg/dL High <100 [facility] Comment on above: Order Comment: Speci men Type: BLOOD SPECIMEN Ordering [facility] Address: [address] [place] [address] Result Comment: <100 mg/dL, Optimal 100-129 mg/dL, Near optimal/above optimal 130-159 mg/dL, Borderline high 160-189 mg/dL, High >189 mg/dL, Very high Secondary prevention optimal LDL Cholesterol levels are recommended to be < 70 mg/dL Performed By: #### 3 1201-7, 48756-8, 5194-3 #### [facility] CLIA [id number] [address] [place] [address] [place] Cholesterol in LDL/Cholesterol in HDL [Mass ratio] 3.89 {ratio} High <2.54 [facility] Comment on above: Order Comment: Janis covington Type: BLOOD SPECIMEN Order[facility]: [facility] Address: [address] [place] [address] Result Comment: Kim young: 1. National Cholesterol Education Program ATP III Guideline At-A-Glance Quick Desk Reference: National Heart, Lung, and Blood [place]. National Institutes of Health. 2001: NIH Publication No. 01-3305. 2. An International Atherosclerosis Society position paper: global recommendations for the management of dyslipidemia: executive summary, Atherosclerosis. 2014: 232(2):410-413. Performed By: #### 3 1201-7, 16603-2, 5194-3 #### [facility] CLIA [id number] [address] [place] [address] [place] Cholesterol in VLDL [Mass/Vol] 20 mg/dL Normal <30 [facility] Comment on above: Order Comment: Janis covington Type: BLOOD SPECIMEN Order[facility] Facility[facility] Address: [address] [place] [address] Performed By: #### 3 1201-7, 81007-8, 5194-3 #### [facility] CLIA [id number] [address] [place] [address] [place] Cholesterol non HDL [Mass/Vol] 156 mg/dL High <130 [facility] Comment on above: Order Comment: Janis covington Type: BLOOD SPECIMEN Order[facility] Address: [address] [place] [address] Result Comment: <130 mg/dL, Optimal 130-159 mg/dL, Near optimal/above optimal 160-189 mg/dL, Borderline high 190-219 mg/dL, High >219 mg/dL, Very high Secondary prevention optimal non HDL Cholesterol levels are recommended to be <100 mg/dL Performed By: #### 3 1201-7, 52766-5, 5194-3 #### [facility] CLIA [id number] [address] [place] [address] [place] Cholesterol.total/Cho lesterol in HDL [Mass ratio] 5.46 {ratio} High <5.10 [facility] Comment on above: Order Comment: Speci men Type: BLOOD SPECIMEN Order[facility] Address: [address] [place] [address] Performed By: #### 3 1201-7, 51256-2, 5195-3 #### [facility] CLIA [id number] [address] [place] [address] [place] FASTING TIME 12 hrs Normal [facility] Comment on above: Order Comment: Speci men Type: BLOOD SPECIMEN Order[facility] Address: [address] [place] [address] Performed By: #### 3 1201-7, 07360-3, 5195-3 #### [facility] CLIA [id number] [address] [place] [address] [place] Triglyceride [Mass/Vol] 102 mg/dL Normal <150 [facility] Comment on above: Order Comment: Speci men Type: BLOOD SPECIMEN Ordering Facility: [facility] Address: [address] [place] [address] Result Comment: <150 mg/dL, Normal 150-199 mg/dL, Borderline high 200-499 mg/dL, High >499 mg/dL, Very high Performed By: #### 3 1201-7, 59083-9, 5195-3 #### [facility] CLIA [id number] [address] [place] [address] [place] CNOVon 07-05-2024 CNOV Office Visit (FAMPWS ) -- SIA OLIVERA ([id number]) 1985 F Date Time Provider Department 07/05/24 1:00 PM HUI VALDES During your visit today, we recorded the following information about you: Pulse Respiration Blood pressure Weight 94/minute 16/minute 136/84 78.8 kg Height 1.604 m Hui Valdes APRN.DIRECTOR RECORDS MANAGEMENT 07/05/2024 3:14 PM Signed 07/05/2024 Patient presents [...] to pelvic floor therapy but moved from [place] which is were she was going to [...] nausea, vomiting, or diarrhea : See HPI MILL MANAGER: Negative for abnormal vaginal bleeding, abnormal vaginal [...] by t (more content not included)... Normal [facility] CNOVon 11-07-2023 CNOV Office Visit (UROLAE ) -- SIA OLIVERA ([id number]) 1985 F Date Time Provider Department 11/07/23 12:45 PM JOANNA WILKES UROVINAY During your visit today, we recorded the following information about you: Pulse Blood pressure 73/minute 110/71 Joanna Wilkes MD 12/14/2023 10:[address] [facility] NEW PATIENT CONSULT/HISTORY [...] medications. 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 Normal [facility] CBC W Auto Differential pane l (Bld)on 07-01-2023 Basophils (Bld) [#/Vol] 0.06 10*3/uL <0.11 k/uL [facility] Basophils/100 WBC (Bld) 0.8 % [facility] Differential cell count method Nom (Bld) Auto [facility] Eosinophils (Bld) [#/Vol] 0.14 10*3/uL <0.46 k/uL [facility] Eosinophils/100 WBC (Bld) 1.8 % [facility] Erythrocyte distribution width (RBC) [Ratio] 13.2 % 11.5 - 15.0 % [facility] Hematocrit (Bld) [Volume fraction] 41.1 % 36.0 - 46.0 % [facility] Hemoglobin (Bld) [Mass/Vol] 13.4 g/dL 11.5 - 15.5 g/dL [facility] Immature granulocytes (Bld) [#/Vol] <0.10 k/uL [facility] Immature granulocytes/100 WBC (Bld) 0.1 % [facility] Lymphocytes (Bld) [#/Vol] 2.98 10*3/uL 1.00 - 4.00 k/uL [facility] Lymphocytes/100 WBC (Bld) 39.3 % [facility] MCH (RBC) [Entitic mass] 30.6 pg 26.0 - 34.0 pg [facility] MCHC (RBC) [Mass/Vol] 32.6 g/dL 30.5 - 36.0 g/dL [facility] MCV (RBC) [Entitic vol] 93.8 fL 80.0 - 100.0 fL [facility] Monocytes (Bld) [#/Vol] 0.73 10*3/uL <0.87 k/uL [facility] Monocytes/100 WBC (Bld) 9.6 % [facility] Neutrophils (Bld) [#/Vol] 3.67 10*3/uL 1.45 - 7.50 k/uL [facility] Neutrophils/100 WBC (Bld) 48.4 % [facility] Nucleated RBC (Bld) [#/Vol] <0.01 k/uL [facility] Nucleated RBC/100 WBC (Bld) [Ratio] 0.0 /100 WBC [facility] Platelet mean volume (Bld) [Entitic vol] 10.0 fL 9.0 - 12.7 fL [facility] Platelets (Bld) [#/Vol] 342 10*3/uL 150 - 400 k/uL [facility] RBC (Bld) [#/Vol] 4.38 10*6/uL 3.90 - 5.2 0 m/uL [facility] WBC (Bld) [#/Vol] 7.59 10*3/uL 3.70 - 11. 00 k/uL [facility] Comprehensive metabolic 2000 panelon 07-01-2023 Albumin [Mass/Vol] 4.0 g/dL 3.9 - 4.9 g/dL [facility] ALP [Catalytic activity/Vol] 49 U/L 34 - 123 U/L [facility] ALT [Catalytic activity/Vol] 11 U/L 7 - 38 U/L [facility] Anion gap [Moles/Vol] 11 mmol/L 9 - 18 mmol/L [facility] AST [Catalytic activity/Vol] 17 U/L 13 - 35 U/L [facility] Bilirubin [Mass/Vol] 0.2 mg/dL 0.2 - 1 .3 mg/dL [facility] Calcium [Mass/Vol] 9.3 mg/dL 8.5 - 10. 2 mg/dL [facility] Chloride [Moles/Vol] 108 mmol/L High 97 - 10 5 mmol/L [facility] CO2 [Moles/Vol] 21 mmol/L Low 22 - 30 mmol/L [facility] Creatinine [Mass/Vol] 0.67 mg/dL 0.58 - 0.96 mg/dL [facility] Estimated Glomerular Filtration Rate 116 mL/min/1.73m >=60 mL/min/1.73m [facility] Glucose [Mass/Vol] 88 mg/dL 74 - 99 mg/dL [facility] Potassium [Moles/Vol] 4.1 mmol/L 3.7 - 5.1 mmol/L [facility] Protein [Mass/Vol] 6.3 g/dL 6.3 - 8.0 g/dL [facility] Sodium [Moles/Vol] 140 mmol/L 136 - 144 mmol/L [facility] Urea nitrogen [Mass/Vol] 8 mg/dL 7 - 21 mg/dL [facility] HbA1c (Bld)on 07-01-2023 Average glucose Estimated from glycated hemoglobin (Bld) [Mass/Vol] 111 mg/dL [facility] HbA1c (Bld) [Mass fraction] 5.5 % 4.3 - 5.6 % [facility] Lipid 1996 panelon 3 Cholesterol [Mass/Vol] 175 mg/dL <200 mg/dL [facility] Cholesterol in HDL [Mass/Vol] 33 mg/dL Low >39 mg/dL [facility] Cholesterol in LDL [Mass/Vol] 121 mg/dL High <100 mg/dL [facility] Cholesterol in LDL/Cholesterol in HDL [Mass ratio] 3.67 {ratio} High <2.54 [facility] Cholesterol in VLDL [Mass/Vol] 21 mg/dL <30 mg/dL [facility] Cholesterol non HDL [Mass/Vol] 142 mg/dL High <130 mg/dL [facility] Cholesterol.total/Cho lesterol in HDL [Mass ratio] 5.30 {ratio} High <5.10 [facility] Fasting Time 12 hrs [facility] Triglyceride [Mass/Vol] 106 mg/dL <150 mg/dL [facility] CNOVon 03-26-2023 CNOV Office Visit (AGGENS 4) -- SIA OLIVERA ([id number]) 1985 F Date Time Provider Department 03/26/23 [...] SECTION HX EGD DIAGNOSTIC 01/17/2023 INDUCED BY [facility] 2008 FAMILY HISTORY: FAMILY HISTORY Problem Relation Age of Onset Heart Mother Hypertension Father No Known Problems Brother No Known Problems Maternal Grandmother No Known Problems Maternal Grandfather Breast Cancer Paternal Grandmother No Known Problems Paternal Grandfather No Known Problems Brother SOCIAL HISTORY: Social History Tobacco Use Smoking status: Former Packs/day: (more content not included)... Normal [facility] ANES POSTPROC EVALon 023 ANES POSTPROC EVAL HNO ID: [id number] Author: Flora Fierro MD Service: Anesthesiology Author Type: Physician Type: Anesthesia Postprocedure Evaluation Filed: 01/17/2023 11:21 AM Note Text: POST ANESTHESIA EVALUATION NOTE : 1985 Procedure Summary Date: 01/17/23 Room / Location: [facility] Anesthesia Start: 827 Anesthesia Stop: [...] January 17, 2023 TIME: 11:16 AM CSN: [id number] [facility] ANES PRE-OPon 01-17-2023 ANES PRE-OP HNO ID: [id number] Author: Flora Fierro MD Service: Anesthesiology Author [...] cream by RECTAL route twice daily. - Iquujkdv-Nu-Fdf-Fe-FA tab Take 1 tablet by mouth once [...] January 17, 2023 TIME: 7:43 AM CSN: [id number] Normal [facility] HCG ( test) Ql (U)o n 01-17-2023 Specific gravity (U) [Rel density] 1.023 Normal 1.006-1.029 [facility] Comment on above: Order Comment: Speci men Type: URINE SPECIMENOrdering Facility: [facility] Address: [address] [place] [address] Result Comment: If s pecific gravity is <1.005 then results may be falsely negative. Serum HCG is recommended. Performed By: #### 2 106-3 ####[facility] LABORATORYCLIA [id number] [address] STATES OF [facility] Specific gravity (U) [Rel density] 1.023 1.006 - 1.029 [facility] HCG Preg Ur Qlon 01-17-2023 HCG ( test) Ql (U) Negative Normal Negative [facility] Comment on above: Order Comment: Speci men Type: URINE SPECIMENOrdering Facility: [facility] Address: [address] [place] [address] Result Comment: This test is intended to aid in the early detection of . Very dilute urine samples, as indicated by a low specific gravity, may not contain employee's representative levels of hCG. This test detects [...] for . Performed By: #### 2 106-3 ####[facility] LABORATORYCLIA [id number] [place] [id number] [place] HCG QUAL URon 01-17-2023 HCG ( test) Ql (U) Negative Negative [facility] HISTORY PHYSICALon HISTORY PHYSICAL HNO ID: [id number] Author: Julio Dial APRN.DIRECTOR RECORDS MANAGEMENT Service: ? Author Type: Nurse Practitioner Type: [...] Procedure Laterality Date SECTION HX INDUCED BY [facility] 2008 FAMILY HISTORY Problem Relation Age of [...] cream by RECTAL route twice daily. 01/10/2023 Ugbzgdbs-Oo-Arg-Fe-FA tab Take 1 tablet by mouth once [...] weeks. Cardiovascular (more content not included)... Normal [facility] OPERATIVE NOon 01-17-2023 OPERATIVE NO HNO ID: [id number] Author: Esme Grace MD Service: General Surgery Author Type: Physician Type: Operative Report Filed: 01/17/2023 8:56 AM Note Text: OPERATIVE/PROCEDURE REPORT LOG ID: [id number] Surgery/Procedure Date: Incision/Procedure Start Time: 8:42 AM Incision Close/Procedure End Time: 8:45 AM Surgeon(s)/Proceduralist(s ) and Chemical Strength Tester(s): Surgeon(s) and Role: * Esme Grace MD [...] 2023 TIME: 8:51 AM PAGER/CONTACT #: Normal [facility] SURGICAL PATHOLOGYon 023 CASE REPORT Normal [facility] Comment on above: Order Comment: Speci men Type: TISSUE SPECIMENOrdering Facility: [facility] Address: [facility] [address] Result Comment: Surg [facility] Pathology Report Case: [id number] Authorizing Provider: Esme Grace MD Collected: 01/17/2023 08:42 AM Ordering Location: [facility] Received: 01/17/2023 10:26 AM Pathologist: Awa Jones MD Specimen: ANTRUM (STOMACH) BIOPSY Performed By: #### S ####[facility] LABORATORYCLIA [id number] [address] FINAL DIAGNOSIS Normal [facility] Comment on above: Order Comment: Speci men Type: TISSUE SPECIMENOrdering Facility: [facility] Address: [address] [place] [address] Result Comment: A. S tomach, antrum, biopsy: - Mild reactive gastropathy. No morphologic evidence of Helicobacter pylori. Performed By: #### S ####[facility] LABORATORYCLIA [id number] [address] FINAL PERFORMING LAB Normal [facility] Comment on above: Order Comment: Speci men Type: TISSUE SPECIMENOrdering Facility: [facility] Address: [address] [place] [address] Result Comment: Diag nostic interpretation performed at [facility], [address] [place] [address] CLIA# [id number] Dramatic Reader: Flora Daly M.D. Performed By: #### S ####[facility] LABORATORYCLIA [id number] [address] GROSS DESCRIPTION Normal [facility] Comment on above: Order Comment: Speci men Type: TISSUE SPECIMENOrdering Facility: [facility] Address: [address] [place] [address] Result Comment: A. A NTRUM (STOMACH) BIOPSY Received in formalin labeled antrum (stomach) biopsy are multiple pieces of schmidt, soft tissue aggregating to 0.7 x 0.3 x 0.2 cm. Totally submitted in one cassette. Gross examination performed at [facility], [address] [place] [address] CLIA# [id number] RSA January 17, 2023 1:29 PM Performed By: #### S ####[facility] LABORATORYCLIA [id number] [address] OF [facility] CNOVon 01-01-2023 CNOV Office Visit (AGGENS 4) -- SIA OLIVERA ([id number]) 1985 F Date Time Provider Department 01/01/23 [...] Procedure Laterality Date SECTION HX INDUCED BY [facility] 2008 FAMILY HISTORY: FAMILY HISTORY Problem Relation [...] Take 1 capsule by mouth once daily. Bpxqxmld-Qh-Vee-Fe-FA tab Take 1 tablet by mouth once daily. (Patient not ta (more content not included)... Normal [facility] DENS[facility] ([id number]) 1985 F Date Time Provider Department 01/01/23 [...] 1 capsule by mouth once daily. - Hgrjebwm-Og-Leo-Fe-FA tab Take 1 tablet by mouth once [...] Status:Closed by ESE CONTRERAS on 01/01/23 Normal [facility] Office Visit (Urgent Care)on 12-25-2022 Follow-up [...] pain nausea or vomiting. Patient has used tjha-hrf-zszncij cough and cold remedies with only minimal [...] Signatures Electronically signed by : Juan Larson, RECORDS MANAGEMENT ANALYST-DIRECTOR RECORDS MANAGEMENT; Dec 25 2022 9:54AM EST (Author) Normal [facility] OBSTETRIC ULTRASOUND WHIon 1 10-31-2021 [facility] UA DIP, URINE (POC)on 2021 BILIRUBIN UA (POCT) Negative Negative [facility] CLARITY UA (POCT) Clear [facility] COLOR UA (POCT) Yellow [facility] GLUCOSE UA (POCT) Negative Negative mg/dL [facility] HEMOGLOBIN/BLOOD UA (POCT) Negative Negative [facility] KETONE UA (POCT) Negative Negative mg/dL [facility] LEUKOCYTES UA (POCT) Large Abnormal Negative [facility] NITRITE UA (POCT) Negative Negative [facility] PH UA (POCT) 7.0 4.5 - 8.0 [facility] Protein Ql (U) Negative Negative mg/dL [facility] SPECIFIC GRAVITY UA (POCT) 1.020 1.005 - 1.030 [facility] UROBILINOGEN UA (POCT) 0.2 E.U./dL Normal E.U./dL [facility] UA DIP, URINE (POC)on 2021 BILIRUBIN UA (POCT) Negative Negative [facility] CLARITY UA (POCT) Clear [facility] COLOR UA (POCT) Yellow [facility] GLUCOSE UA (POCT) Negative Negative mg/dL [facility] HEMOGLOBIN/BLOOD UA (POCT) Negative Negative [facility] KETONE UA (POCT) 15 mg/dL Abnormal Negative mg/dL [facility] LEUKOCYTES UA (POCT) Negative Negative [facility] NITRITE UA (POCT) Negative Negative [facility] PH UA (POCT) 7.5 4.5 - 8.0 [facility] Protein Ql (U) Negative Negative mg/dL [facility] SPECIFIC GRAVITY UA (POCT) 1.020 1.005 - 1.030 [facility] UROBILINOGEN UA (POCT) 1.0 E.U./dL Normal E.U./dL [facility] UA DIP, URINE (POC)on 2021 BILIRUBIN UA (POCT) Negative Negative [facility] CLARITY UA (POCT) Clear [facility] COLOR UA (POCT) Yellow [facility] GLUCOSE UA (POCT) Negative Negative mg/dL [facility] HEMOGLOBIN/BLOOD UA (POCT) Negative Negative [facility] KETONE UA (POCT) Negative Negative mg/dL [facility] LEUKOCYTES UA (POCT) Small Abnormal Negative [facility] NITRITE UA (POCT) Negative Negative [facility] PH UA (POCT) 7.0 4.5 - 8.0 [facility] Protein Ql (U) Trace Abnormal Negative mg/dL [facility] SPECIFIC GRAVITY UA (POCT) 1.020 1.005 - 1.030 [facility] UROBILINOGEN UA (POCT) 0.2 E.U./dL Normal E.U./dL [facility] OBSTETRIC ULTRASOUND WHIon 1 09-18-2021 [facility] UA DIP, URINE (POC)on 2021 BILIRUBIN UA (POCT) Negative Negative [facility] CLARITY UA (POCT) Clear [facility] COLOR UA (POCT) Yellow [facility] GLUCOSE UA (POCT) Negative Negative mg/dL [facility] HEMOGLOBIN/BLOOD UA (POCT) Negative Negative [facility] KETONE UA (POCT) Negative Negative mg/dL [facility] LEUKOCYTES UA (POCT) Small Abnormal Negative [facility] NITRITE UA (POCT) Negative Negative [facility] PH UA (POCT) 7.5 4.5 - 8.0 [facility] Protein Ql (U) Negative Negative mg/dL [facility] SPECIFIC GRAVITY UA (POCT) 1.020 1.005 - 1.030 [facility] UROBILINOGEN UA (POCT) 0.2 E.U./dL Normal E.U./dL [facility] UA DIP, URINE (POC)on 2021 BILIRUBIN UA (POCT) Negative Negative [facility] CLARITY UA (POCT) Clear [facility] COLOR UA (POCT) Yellow [facility] GLUCOSE UA (POCT) Negative Negative mg/dL [facility] HEMOGLOBIN/BLOOD UA (POCT) Negative Negative [facility] KETONE UA (POCT) Trace Negative mg/dL [facility] LEUKOCYTES UA (POCT) Small Abnormal Negative [facility] NITRITE UA (POCT) Negative Negative [facility] PH UA (POCT) 7.0 4.5 - 8.0 [facility] Protein Ql (U) Negative Negative mg/dL [facility] SPECIFIC GRAVITY UA (POCT) 1.025 1.005 - 1.030 [facility] UROBILINOGEN UA (POCT) 0.2 E.U./dL Normal E.U./dL [facility] UA DIP, URINE (POC)on 2021 BILIRUBIN UA (POCT) Negative Negative [facility] CLARITY UA (POCT) Clear [facility] COLOR UA (POCT) Yellow [facility] GLUCOSE UA (POCT) Negative Negative mg/dL [facility] HEMOGLOBIN/BLOOD UA (POCT) Negative Negative [facility] KETONE UA (POCT) Negative Negative mg/dL [facility] LEUKOCYTES UA (POCT) Small Abnormal Negative [facility] NITRITE UA (POCT) Negative Negative [facility] PH UA (POCT) 8.0 4.5 - 8.0 [facility] Protein Ql (U) Negative Negative mg/dL [facility] SPECIFIC GRAVITY UA (POCT) 1.020 1.005 - 1.030 [facility] UROBILINOGEN UA (POCT) 0.2 E.U./dL Normal E.U./dL [facility] UA DIP, URINE (POC)on 2021 BILIRUBIN UA (POCT) Negative Negative [facility] CLARITY UA (POCT) Clear [facility] COLOR UA (POCT) Yellow [facility] GLUCOSE UA (POCT) Negative Negative mg/dL [facility] HEMOGLOBIN/BLOOD UA (POCT) Negative Negative [facility] KETONE UA (POCT) Trace Negative mg/dL [facility] LEUKOCYTES UA (POCT) Small Abnormal Negative [facility] NITRITE UA (POCT) Negative Negative [facility] PH UA (POCT) 7.0 4.5 - 8.0 [facility] Protein Ql (U) 30 mg/dL Abnormal Negative mg/dL [facility] SPECIFIC GRAVITY UA (POCT) 1.020 1.005 - 1.030 [facility] UROBILINOGEN UA (POCT) 0.2 E.U./dL Normal E.U./dL [facility] CBC panel Auto (Bld)on 02-14 Erythrocyte distribution width (RBC) [Ratio] 13.1 % 11.5 - 15.0 % [facility] Hematocrit (Bld) [Volume fraction] 38.1 % 36.0 - 46.0 % [facility] Hemoglobin (Bld) [Mass/Vol] 12.6 g/dL 11.5 - 15.5 g/dL [facility] MCH (RBC) [Entitic mass] 30.5 pg 26.0 - 34.0 pg [facility] MCHC (RBC) [Mass/Vol] 33.1 g/dL 30.5 - 36.0 g/dL [facility] MCV (RBC) [Entitic vol] 92.3 fL 80.0 - 100.0 fL [facility] Nucleated RBC (Bld) [#/Vol] 10*3/uL <0.01 k/uL [facility] Platelet mean volume (Bld) [Entitic vol] 9.6 fL 9.0 - 12.7 fL [facility] Platelets (Bld) [#/Vol] 353 10*3/uL 150 - 400 k/uL [facility] RBC (Bld) [#/Vol] 4.13 10*6/uL 3.90 - 5.2 0 m/uL [facility] WBC (Bld) [#/Vol] 11.89 10*3/uL High 3.70 - 11 .00 k/uL [facility] TYPE AND SCREENon 02-14-2022 ABO O [facility] HIstorical Ab Scr Status Negative [facility] Rh Nom (Bld) Positive [facility] Type and Screen Expiration 02/17/2022 23:59 [facility] UA DIP, URINE (POC)on 2021 BILIRUBIN UA (POCT) Negative Negative [facility] CLARITY UA (POCT) Clear [facility] COLOR UA (POCT) Yellow [facility] GLUCOSE UA (POCT) Negative Negative mg/dL [facility] HEMOGLOBIN/BLOOD UA (POCT) Negative Negative [facility] KETONE UA (POCT) Negative Negative mg/dL [facility] LEUKOCYTES UA (POCT) Negative Negative [facility] NITRITE UA (POCT) Negative Negative [facility] PH UA (POCT) 7.0 4.5 - 8.0 [facility] Protein Ql (U) Negative Negative mg/dL [facility] SPECIFIC GRAVITY UA (POCT) 1.025 1.005 - 1.030 [facility] UROBILINOGEN UA (POCT) 0.2 E.U./dL Normal E.U./dL [facility] Office Visit (Urgent Care)on 01-23-2022 Follow-up [...] Capsule Vitals Vital Signs Recorded: 23Jan2022 10:07AM Kyljwlegqdz12.6 F, Temporal Heart Fdll118 Uzfkaurt896 Eqwigcylw31 Height5 ft 3 in Nxkfrz182 lb 4 oz BMI Bwixewrnze23.72 kg/m2 BSA Calculated2.03 O2 Avzuaoibag94 Physical Exam Vitals signs and nursing notes [...] Jan 23 2022 10:16AM EST (Author) Normal [facility] ED Provider Noteon ED Provider Note [facility] [...] patient come from an ECF, SNF, Rehab, Usp or other Congregate setting: No no no [...] Gatherings with Friends and Family: ? Attends Adventism Services: ? Active Member of Clubs or [...] erythema prese (more content not included)... Normal [facility] CULTURE URINEon 12-25-2020 CULTURE URINE CULTURE URINE --> St atus: F Normal urogenital gregory present. Normal [facility] Comment on above: Performed By: #### C /UR ####[facility] [place], [place] ABO Rh Blood Typeon 12-25-19 21 ABO and Rh group Nom (Bld) ABO Group: O Rh, Gel: POS Normal [facility] Comment on above: Performed By: #### A TY ####[facility] Basic Metabolic Panelon 12-14 Calcium [Mass/Vol] 9.4 mg/dL Normal 8.4-10.4 [facility] Comment on above: Performed By: #### B MP3, QWNT4, TROPN, LIPA4, HEMDF, LFT3 #### [facility] [address] [place], [place] Glucose [Mass/Vol] 87 mg/dL Normal 70-100 [facility] Comment on above: Performed By: #### B MP3, QWNT4, TROPN, LIPA4, HEMDF, LFT3 #### [facility] [address] [place], [place] Urea nitrogen [Mass/Vol] 13 mg/dL Normal 7-20 [facility] Comment on above: Performed By: #### B MP3, QWNT4, TROPN, LIPA4, HEMDF, LFT3 #### [facility] [address] [place], [place] Anion gap [Moles/Vol] 8 mmol/L Normal 3-13 [facility] Comment on above: Performed By: #### B MP3, QWNT4, TROPN, LIPA4, HEMDF, LFT3 #### [facility] [address] [place], [place] CO2 [Moles/Vol] 25 mmol/L Normal 22-30 [facility] Comment on above: Performed By: #### B MP3, QWNT4, TROPN, LIPA4, HEMDF, LFT3 #### [address] Creatinine [Mass/Vol] 0.62 mg/dL Normal 0.52-1.25 [facility] Comment on above: Performed By: #### B MP3, QWNT4, TROPN, LIPA4, HEMDF, LFT3 #### [address] eGFR OTHER > 90.0 Normal >60 [facility] Comment on above: Result Comment: KDIG O [...] MP3, QWNT4, TROPN, LIPA4, HEMDF, LFT3 #### [address] GFR/1.73 sq M.predicted among blacks MDRD (S/P/Bld) [Vol rate/Area] mL/min/{1.73_m2} Normal >60 [facility] Comment on above: Performed By: #### B MP3, QWNT4, TROPN, LIPA4, HEMDF, LFT3 #### [address] Chloride [Moles/Vol] 105 mmol/L Normal 98-107 [facility] Comment on above: Performed By: #### B MP3, QWNT4, TROPN, LIPA4, HEMDF, LFT3 #### [facility] [address] [place], [place] Potassium [Moles/Vol] 3.9 mmol/L Normal 3.5-5.1 [facility] Comment on above: Performed By: #### B MP3, QWNT4, TROPN, LIPA4, HEMDF, LFT3 #### [facility] [address] [place], [place] Sodium [Moles/Vol] 138 mmol/L Normal 135-145 [facility] Comment on above: Performed By: #### B MP3, QWNT4, TROPN, LIPA4, HEMDF, LFT3 #### [facility] [address] [place], [place] Complete Urinalysison 2020 Appearance (U) Clear Normal Clear [facility] Comment on above: Result Comment: . Performed By: #### C UA2 ####[id number] [place], [place] Bacteria Moderate Abnormal Negative [facility] Comment on above: Result Comment: . Performed By: #### C UA2 ####[address] [place], [place] Bilirubin,Urine Negative Normal Negative [facility] Comment on above: Result Comment: . Performed By: #### C UA2 ####[address] [place], [place] Cast, Hyaline Negative Normal Negative [facility] Comment on above: Result Comment: . Performed By: #### C UA2 ####[id number] . [place], [place] Color (U) Light-Yellow Normal Lt. Yellow [facility] Comment on above: Result Comment: . Performed By: #### C UA2 ####[id number] [place], [place] Glucose Ql (U) Normal Normal Normal (<70) [facility] Comment on above: Result Comment: . Performed By: #### C UA2 ####[id number] . [place] [address] Ketone,Urine Negative Normal Negative [facility] Comment on above: Result Comment: . Performed By: #### C UA2 ####[place] [address] [address] [place], [place] Leukocytes,Urine 250 Brionna/uL Abnormal Negative [facility] Comment on above: Result Comment: . Performed By: #### C UA2 ####[address] [place], [place] Mucous Threads Few Normal Negative [facility] Comment on above: Result Comment: . Performed By: #### C UA2 ####[place] [address] [address] [place], [place] Nitrites,Urine Negative Normal Negative [facility] Comment on above: Result Comment: . Performed By: #### C UA2 ####[address] [place], [place] Occult Blood,Urine 0.2 mg/dL Abnormal Negative [facility] Comment on above: Result Comment: . Performed By: #### C UA2 ####[address] [place], [place] pH,Urine 6.0 Normal 5.0-8.0 [facility] Comment on above: Result Comment: . Performed By: #### C UA2 ####[address] [place], [place] RBC, Urine 0 - 2 Normal 0-2 [facility] Comment on above: Result Comment: . Performed By: #### C UA2 ####[address] [place], [place] Specific [place],Urine 1.014 Normal 1.005 - 1.030 [facility] Comment on above: Result Comment: . Performed By: #### C UA2 ####[address] [place], [place] Squamous Epithelial 6 - 10 Abnormal 3-5 [facility] Comment on above: Result Comment: . Performed By: #### C UA2 ####[address] Total Protein,Urine Negative Normal Negative [facility] Comment on above: Result Comment: . Performed By: #### C UA2 ####[id number] [place], [place] Urobilinogen,Urine Normal Normal Normal (0-1) [facility] Comment on above: Result Comment: . Performed By: #### C UA2 ####[id number] [place], [place] WBC, Urine 11 - 25 Abnormal 0-5 [facility] Comment on above: Result Comment: . Performed By: #### C UA2 ####[id number] [place], [place] Hemogram w/ Autodiffon 12-24 Abs Baso Cnt 0.1 10*3/uL Normal 0.0-0.2 [facility] Comment on above: Performed By: #### B MP3, QWNT4, TROPN, LIPA4, HEMDF, LFT3 #### [address] [address] [address] [place], [place] Abs Neutrophile Cnt 7.6 10*3/uL High 1.8-7.0 [facility] Comment on above: Performed By: #### B MP3, QWNT4, TROPN, LIPA4, HEMDF, LFT3 #### [address] [address] [address] [place], [place] Basophils/100 WBC (Bld) 1.0 % Normal 0.0-2.0 [facility] Comment on above: Performed By: #### B MP3, QWNT4, TROPN, LIPA4, HEMDF, LFT3 #### [address] [place], [place] Eosinophils (Bld) [#/Vol] 0.2 10*3/uL Normal 0.0-0.5 [facility] Comment on above: Performed By: #### B MP3, QWNT4, TROPN, LIPA4, HEMDF, LFT3 #### [address] [place] Eosinophils/100 WBC (Bld) 1.8 % Normal 1.0-6.0 [facility] Comment on above: Performed By: #### B MP3, QWNT4, TROPN, LIPA4, HEMDF, LFT3 #### [address] [address] [place], [place] Erythrocyte distribution width (RBC) [Ratio] 13.4 % Normal 11.5-14.5 [facility] Comment on above: Performed By: #### B MP3, QWNT4, TROPN, LIPA4, HEMDF, LFT3 #### [address] Granulocytes/100 WBC (Bld) 56.8 % Normal 40.0-80.0 [facility] Comment on above: Performed By: #### B MP3, QWNT4, TROPN, LIPA4, HEMDF, LFT3 #### [address] Hematocrit (Bld) [Volume fraction] 37.0 % Normal 35.0-47.0 [facility] Comment on above: Performed By: #### B MP3, QWNT4, TROPN, LIPA4, HEMDF, LFT3 #### [address] [address] [place], [place] Hemoglobin (Bld) [Mass/Vol] 12.3 g/dL Normal 11.7-16.0 [facility] Comment on above: Performed By: #### B MP3, QWNT4, TROPN, LIPA4, HEMDF, LFT3 #### [address] Lymphocytes (Bld) [#/Vol] 4.5 10*3/uL High 1.0-4.3 [facility] Comment on above: Performed By: #### B MP3, QWNT4, TROPN, LIPA4, HEMDF, LFT3 #### [address] Lymphocytes/100 WBC (Bld) 33.1 % Normal 20.0-40.0 [facility] Comment on above: Performed By: #### B MP3, QWNT4, TROPN, LIPA4, HEMDF, LFT3 #### [address] [place], [place] MCH (RBC) [Entitic mass] 31.1 pg Normal 26.0-34.0 [facility] Comment on above: Performed By: #### B MP3, QWNT4, TROPN, LIPA4, HEMDF, LFT3 #### [address] [address] [place] MCHC 33.2 % Normal 32.0-36.0 [facility] Comment on above: Performed By: #### B MP3, QWNT4, TROPN, LIPA4, HEMDF, LFT3 #### [address] MCV (RBC) [Entitic vol] 93.4 fL Normal 79.0-98.0 [facility] Comment on above: Performed By: #### B MP3, QWNT4, TROPN, LIPA4, HEMDF, LFT3 #### [address] Monocytes (Bld) [#/Vol] 1.0 10*3/uL High 0.0-0.8 [facility] Comment on above: Performed By: #### B MP3, QWNT4, TROPN, LIPA4, HEMDF, LFT3 #### [address] Monocytes/100 WBC (Bld) 7.3 % Normal 2.0-10.0 [facility] Comment on above: Performed By: #### B MP3, QWNT4, TROPN, LIPA4, HEMDF, LFT3 #### [address] Platelet mean volume (Bld) [Entitic vol] 7.5 fL Normal 7.4-10.4 [facility] Comment on above: Performed By: #### B MP3, QWNT4, TROPN, LIPA4, HEMDF, LFT3 #### [address] Platelets (Bld) [#/Vol] 349 10*3/uL Normal 140-440 [facility] Comment on above: Performed By: #### B MP3, QWNT4, TROPN, LIPA4, HEMDF, LFT3 #### [facility] [address] [place], [place] RBC (Bld) [#/Vol] 3.96 10*6/uL Normal 3.80-5.20 [facility] Comment on above: Performed By: #### B MP3, QWNT4, TROPN, LIPA4, HEMDF, LFT3 #### [address] [address] [place], [place] WBC (Bld) [#/Vol] 13.4 10*3/uL High 3.6-10.7 [facility] Comment on above: Performed By: #### B MP3, QWNT4, TROPN, LIPA4, HEMDF, LFT3 #### [address] [place] Hepatic Functionon 1 ALP [Catalytic activity/Vol] 64 U/L Normal 38-126 [facility] Comment on above: Performed By: #### B MP3, QWNT4, TROPN, LIPA4, HEMDF, LFT3 #### [address] [address] [place] ALT [Catalytic activity/Vol] 20 U/L Normal 0-34 [facility] Comment on above: Result Comment: The ALT test is performed by an updated assay method. Please note that the reference intervals have been changed and are now sex specific. Performed By: #### B MP3, QWNT4, TROPN, LIPA4, HEMDF, LFT3 #### [address] [place] AST [Catalytic activity/Vol] 27 U/L Normal 15-46 [facility] Comment on above: Performed By: #### B MP3, QWNT4, TROPN, LIPA4, HEMDF, LFT3 #### [address] [address] [place] Bilirubin [Mass/Vol] 0.3 mg/dL Normal 0.2-1.3 [facility] Comment on above: Performed By: #### B MP3, QWNT4, TROPN, LIPA4, HEMDF, LFT3 #### [address] [address] [place] Bilirubin.indirect [Mass/Vol] 0.0 mg/dL Normal 0.0-0.3 [facility] Comment on above: Performed By: #### B MP3, QWNT4, TROPN, LIPA4, HEMDF, LFT3 #### [address] [address] [place] Protein [Mass/Vol] 7.4 g/dL Normal 6.3-8.2 [facility] Comment on above: Performed By: #### B MP3, QWNT4, TROPN, LIPA4, HEMDF, LFT3 #### [address] [address] [place] Albumin [Mass/Vol] 4.4 g/dL Normal 3.5-5.0 [facility] Comment on above: Performed By: #### B MP3, QWNT4, TROPN, LIPA4, HEMDF, LFT3 #### [address] Lipaseon 12-24-2020 Lipase [Catalytic activity/Vol] 110 U/L Normal 23-300 [facility] Comment on above: Performed By: #### B MP3, QWNT4, TROPN, LIPA4, HEMDF, LFT3 #### [address] Troponin Ion 12-24-2020 Troponin I.cardiac [Mass/Vol] ng/mL Normal 0.000-0.034 [facility] Comment on above: Result Comment: . Performed By: #### B MP3, QWNT4, TROPN, LIPA4, HEMDF, LFT3 #### [address] Troponin x1on 12-24-2020 Troponin I.cardiac [Mass/Vol] ng/mL 0.000 - 0.034 ng/mL [facility] Work Phone: Comment on above: . Test Performed by [facility], [address] [place] [address] [facility] Work Phone: US ABDOMEN LIMITEDon 021 [place], [facility] Incoming Radiology Results From [facility] - 12/24/2020 12:55 AM EDT Patient Name: SIA OLIVERA Ultrasound ACCESSION EXAM DATE/TIME PROCEDURE ORDERING PROVIDER [id number] 12/24/2020 00:13 EDT US Abdomen Limited MD MILES SCOTT ALAN CPT code 40517 Reason For Exam (US Abdomen Limited) RUQ [...] Ultrasound ACCESSION EXAM DATE/TIME PROCEDURE ORDERING PROVIDER [id number] 12/24/2020 00:13 EDT US Abdomen Limited MD MILES SCOTT ALAN CPT code 17693 Reason For Exam (US Abdomen Limited) RUQ [...] Ultrasound ACCESSION EXAM DATE/TIME PROCEDURE ORDERING PROVIDER [id number] 12/24/2020 00:13 EDT US Abdomen Limited MD MILES SCOTT ALAN CPT code 92640 Reason For Exam (US Abdomen Limited) RUQ [...] Transcribed Date and Time: 12/24/2020 0:51 Normal [facility] US OB TRANSVAGINALon 021 [id number] ACCESSION EXAM DATE/TIME PROCEDURE ORDERING PROVIDER [id number] 12/24/2020 00:08 EDT [place] [id number] -REYNALDO MANDEL Transvaginal CPT code 73940 Reason For Exam (US Transvaginal) , abdominal [...] Phone: [facility], [facility] Incoming Radiology Results From [facility] - 12/24/2020 12:55 AM EDT Patient Name: SIA OLIVERA Ultrasound ACCESSION EXAM DATE/TIME PROCEDURE ORDERING PROVIDER [id number] 12/24/2020 00:08 EDT [place] [id number] -REYNALDO MANDEL Transvaginal CPT code 74984 Reason For Exam (US Transvaginal) , abdominal [...] Ultrasound ACCESSION EXAM DATE/TIME PROCEDURE ORDERING PROVIDER [id number] 12/24/2020 00:08 EDT [place] [id number] -REYNALDO MANDEL Transvaginal CPT code 79179 Reason For Exam (US Transvaginal) , abdominal [...] weeks. 6 d. Report Dictated on Workstation: [id number] Final Dictated: 12/24/2020 0:51 am Dictating Physician: MD MAHONEY WILLIAM Signed Date and Time: 12/24/2020 0:54 am Signed by: MD MAHONEY WILLIAM Transcribed Date and Time: 12/24/2020 0:51 Normal [facility] [employer] [facility] hCG Quantitativeon 1 hCG Quantitative 8098 m[IU]/mL [facility] Comment on above: Result Comment: Fema [...] , ectopic , gestosis or intrauterine . Sirda- and postmenopausal females may have detectable hCG [...] MP3, QWNT4, TROPN, LIPA4, HEMDF, LFT3 #### [facility] [employer] [address] [address] ABO/RHon 12-23-2020 Sodium [Moles/Vol] O [facility] Work Phone: Sodium [Moles/Vol] Positive [facility] Work Phone: Test Performed by [facility] [employer] [facility], [facility] [place] [address] [facility] Work Phone: [phone] Basic Metabolic Panelon 12-14 Anion gap [Moles/Vol] 8 mmol/L 3 - 13 mmol/L [facility] Work Phone: Calcium [Mass/Vol] 9.4 mg/dL 8.4 - 10. 4 mg/dL [facility] Work Phone: [phone] Chloride [Moles/Vol] 105 mmol/L 98 - 10 7 mmol/L [facility] Work Phone: CO2 [Moles/Vol] 25 mmol/L 22 - 30 mmol/L [facility] Work Phone: Creatinine [Mass/Vol] 0.62 mg/dL 0.52 - 1.25 mg/dL [facility] Work Phone: EGFR IF NonAfrican Marshallese >90.0 >60 mL/min [facility] Work Phone: Comment on above: KDIGO guidelines [...] 1 ED Provider Note Emergency Department Encounter [facility] Patient: Sia Olivera : 1985 [...] ventricular rate of 71 beats per him. RI, QRS, QTc within normal is. Normal axis. [...] 12/25/20 1250 Kenny Miles MD 12/25/20 1251 [facility] ED Provider Note [facility] EMERGENCY DEPARTMENT ENCOUNTER Pt Name: [...] patient come from an ECF, SNF, Rehab, Usp or other Congregate setting: no (If yes [...] on phone: None Gets together: None Attends zoroastrian service: None Active member of club or [...] abdominal t (more content not included)... Normal [employer] HCG, QUANTITATIVE, on 12-23-2020 hCG Quant 8098 m[IU]/mL Abnormal [employer] Work Phone: Comment on above: Females < [...] Work Phone: [phone] Test Performed by [facility], [address] [place] [id number] [facility] Work Phone: ) Hemogram (CBC) w/Auto [...] Interpretation and review of laboratory results Abnormal [employer] Work Phone: [phone] Lymphocytes (Bld) [#/Vol] [...] 10*3/uL [facility] Work Phone: Test Performed by [facility], [address] [place] [address] [facility] Work Phone: Hepatic Function Panelon Albumin [Mass/Vol] 4.4 g/dL 3.5 - 5.0 g/dL [employer] Work Phone: ALP (Bld) [Catalytic activity/Vol] 64 U/L 38 - 126 U/L [facility] Work Phone: ALT [Catalytic activity/Vol] 20 U/L 0 - 34 U/L [employer] Work Phone: Comment on above: The ALT [...] Phone: [phone] Otheron 12-23-2020 Test Performed by [facility], [address] [place] [address] [facility] Work Phone: [phone] Urinalysison 12-23-2020 Appearance (U) Clear Clear NA [employer] Work Phone: [phone] Comment on above: . Bacteria, UA Moderate Abnormal Negative /[HPF] [facility] Work Phone: [phone] Comment on above: . Bilirubin Urine Negative Negative mg/dL [facility] Work Phone: [phone] Comment on above: . Color (U) Light-Yellow Lt. Yellow NA [employer] Work Phone: [phone] Comment on above: . Glucose, Ur Normal Normal (<70) mg/dL [facility] Work Phone: [phone] Comment on above: . Hyaline Casts, UA Negative Negative /[LPF] [facility] Work Phone: [phone] Comment on above: . Interpretation and review of laboratory results Abnormal [facility] Work Phone: [phone] Ql (U) Negative Negative mg/dL [facility] Work Phone: [phone] Comment on above: . LEUKOCYTES, UA 250 Abnormal Negative Brionna/uL [facility] Work Phone: [phone] Comment on above: . Mucous Threads Few Negative /[LPF] [employer] Work Phone: Comment on above: . Nitrite, Urine Negative Negative NA [employer] Work Phone: Comment on above: . Occult Blood,Urine 0.2 mg/dL Abnormal Negative [facility] Work Phone: Comment on above: . pH (U) 6.0 [pH] [employer] Work Phone: Comment on above: . Protein (U) [Mass/Vol] Negative Negative mg/dL [facility] Work Phone: Comment on above: . RBC (U) [#/Vol] 0-2 0 - 2 /[HPF] [employer] Work Phone: Comment on above: . Specific [place], Urine 1.014 [facility] Work Phone: Comment on above: . Squam Epithel, UA 6-10 Abnormal 3 - 5 /[HPF] [employer] Work Phone: Comment on above: . Urobilinogen, Urine Normal Normal ( 0-1) mg/dL [facility] Work Phone: Comment on above: . WBC, UA 11-25 Abnormal 0 - 5 /[HPF] [employer] Work Phone: Comment on above: . Test Performed by [facility], [address] [place] [id number] [employer] Work Phone: XR SHLDR >/=3V AP/NAZ AP/OTH [...] significant degenerative change. IMPRESSION: Unremarkable left shoulder. Barrel Rifler: CATHERINE Transcribe Date/Time: Mar 27 2020 12:23A Dictated by : ERIC FERNANDES MD This examination was interpreted and the report reviewed and electronically signed by: ERIC FERNANDES MD on Mar 27 2020 12:24AM EST Normal [facility] Metabolic Panelon 08-04-2019 Sodium [Moles/Vol] Negative [place], [place] Sodium [Moles/Vol] [place] Comment on above: The following drugs [...] non-forensic procedures. Otheron 08-04-2019 Test Performed by [address] [address] [place] Urinalysison 08-04-2019 Amphetamines Ql (U) Negative [facility], [place] Benzodiazepines Ql (U) Negative [place] Cocaine Ql (U) Negative [facility], [place] Opiates Ql (U) Negative [place] Buprenorphine Screenon 07-06 Buprenorphine Screen Negative Normal [facility] Comment on above: Result Comment: Bupr enorphine (Suboxone) has been screened for by immunoassay at 5 ng/mL threshold. The screening assay provides only a preliminary test result. A more specific alternative method must be used to confirm preliminary positive results. Performed By: #### I GN #### [address] [address] [place] [address] Fentanyl Screen, Urineon Fentanyl Screen, Urn Negative Normal Negative [facility] Comment on above: Result Comment: Fent anyl has been screened for by Immunoassay at a 2ng/ml threshold. POSITIVE results are not confirmed by a more specific alternative method unless requested. If confirmation is needed, request confirmation under separate order. NOTE: These results are for medical treatment only. Analysis performed using non-forensic procedures. Performed By: #### I GN #### [address] [facility], [place] [facility] Drug Screenon 2018 Amphetamines Ql (U) Negative [facility] Comment on above: Performed By: #### I GN #### [facility] [address] [facility], [place] Barbiturates Negative [facility] Comment on above: Performed By: #### I GN #### [facility] [address] [facility], [place] Benzodiazepines Ql (U) Negative [facility] Comment on above: Performed By: #### I GN #### [facility] [address] [facility], [place] Cocaine Metabolites Negative [facility] Comment on above: Performed By: #### I GN #### [facility] [address] [facility], [place] Comment [facility] Comment on above: Result Comment: [...] procedures. Performed By: #### I GN #### [facility] [address] [facility], [place] Ethanol [Mass/Vol] Negative [facility] Comment on above: Performed By: #### I GN #### [facility] [address] [facility], [place] Opiates Ql (U) Negative [facility] Comment on above: Performed By: #### I GN #### [facility] [address] [facility], [place] Oxycodone Negative [facility] Comment on above: Performed By: #### I GN #### [facility] [address] [place] [address] THC Negative Normal [facility] Comment on above: Performed By: #### I GN #### [facility] [address] [place] [address] Metabolic Panelon 07-05-2019 Sodium [Moles/Vol] Negative [place], [place] Comment on above: Buprenorphine (Subox one) has been screened for by immunoassay at 5 ng/mL threshold. The screening assay provides only a preliminary test result. A more specific alternative method must be used to confirm preliminary positive results. Sodium [Moles/Vol] [place] Comment on above: The following drugs [...] procedures. Otheron 07-05-2019 Fentanyl Negative Negative NA [place] Comment on above: Fentanyl has been [...] performed using non-forensic procedures. Test Performed by [facility], [address] [place] [address] [place] Test Performed by [facility], [address] [place] [address] [facility], [place] Urinalysison 07-05-2019 Amphetamines Ql (U) Negative [place] Benzodiazepines Ql (U) Negative [facility] Cocaine Ql (U) Negative [facility] Opiates Ql (U) Negative [facility] Buprenorphine Screenon 06-29 Buprenorphine Screen Negative Normal [facility] Comment on above: Result Comment: Bupr enorphine (Suboxone) has been screened for by immunoassay at 5 ng/mL threshold. The screening assay provides only a preliminary test result. A more specific alternative method must be used to confirm preliminary positive results. Performed By: #### I GN, FENTU, BUPR #### [facility] [address] [place] [address] Fentanyl Screen, Urineon Fentanyl Screen, Urn Negative Normal Negative [facility] Comment on above: Result Comment: Fent anyl has been screened for by Immunoassay at a 2ng/ml threshold. POSITIVE results are not confirmed by a more specific alternative method unless requested. If confirmation is needed, request confirmation under separate order. NOTE: These results are for medical treatment only. Analysis performed using non-forensic procedures. Performed By: #### I GN #### [facility] [address] [place] [address] Fentanyl, Urineon 06-28-2019 Fentanyl Negative Negative NA [place] Comment on above: Fentanyl has been sc reened for by Immunoassay at a 2ng/ml threshold. POSITIVE results are not confirmed by a more specific alternative method unless requested. If confirmation is needed, request confirmation under separate order. NOTE: These results are for medical treatment only. Analysis performed using non-forensic procedures. [place] Drug Screenon 2018 Amphetamines Ql (U) Negative [facility], [place] Benzodiazepines Ql (U) Negative [place] Cocaine Ql (U) Negative [place] Opiates Ql (U) Negative [place] Sodium [Moles/Vol] [place] Comment on above: The following drugs [...] using non-forensic procedures. Amphetamines Ql (U) Negative [facility] Comment on above: Performed By: #### I GN, FENTU, BUPR #### [facility] [address] [place], [place] Barbiturates Negative [facility] Comment on above: Performed By: #### I GN, FENTU, BUPR #### [facility] [address] [place] Benzodiazepines Ql (U) Negative [facility] Comment on above: Performed By: #### I GN, FENTU, BUPR #### [address] [place], [place] Cocaine Metabolites Negative [facility] Comment on above: Performed By: #### I MICHAEL FENTU, BUPR #### [address] [address] [place] Comment [facility] Comment on above: Result Comment: [...] By: #### I GN, FENTU, BUPR #### [address] [place] Ethanol [Mass/Vol] Negative [facility] Comment on above: Performed By: #### I GN, FENTU, BUPR #### [address] [place] Opiates Ql (U) Negative [facility] Comment on above: Performed By: #### I ANTHONY RODRIGUEZ BUPR #### [address] [place], [place] Oxycodone Negative [facility] Comment on above: Performed By: #### I SHAW RODRIGUEZU, BUPR #### [address] [address] [place] THC Negative [facility] Comment on above: Performed By: #### I ANTHONY RODRIGUEZ BUPR #### [address] [address] [place] Metabolic Panelon 06-28-2019 Sodium [Moles/Vol] Negative [place] Comment on above: Buprenorphine (Subox one) has been screened for by immunoassay at 5 ng/mL threshold. The screening assay provides only a preliminary test result. A more specific alternative method must be used to confirm preliminary positive results. Otheron 06-28-2019 Test Performed by [facility], [place] [address] [place], [place] [facility] Screenon 2018 Amphetamines Ql (U) Negative [facility] Comment on above: Performed By: #### I GN #### [address] [address] [place], [place] Barbiturates Negative [facility] Comment on above: Performed By: #### I GN #### [address] [address] [place] Benzodiazepines Ql (U) Negative [facility] Comment on above: Performed By: #### I GN #### [address] [address] [address] [place] Cocaine Metabolites Negative [facility] Comment on above: Performed By: #### I GN #### [address] [address] [place] Comment [facility] Comment on above: Result Comment: [...] procedures. Performed By: #### I GN #### [facility] [address] [place], [place] Ethanol [Mass/Vol] Negative [facility] Comment on above: Performed By: #### I GN #### [facility] [address] [place], [place] Opiates Ql (U) Negative [facility] Comment on above: Performed By: #### I GN #### [address] [address] [address] [place] Oxycodone Negative [facility] Comment on above: Performed By: #### I GN #### [facility] [address] [place], [place] THC Negative [facility] Comment on above: Performed By: #### I GN #### [address] [address] [address] [place], [place] [facility] Screenon 2018 Amphetamines Ql (U) Negative [facility] Benzodiazepines Ql (U) Negative [facility] Cocaine Ql (U) Negative [facility] Opiates Ql (U) Negative [facility] Sodium [Moles/Vol] [facility] Comment on above: The following drugs or drug groups have been screened for by Immunoassay at the thresholds listed: Amphetamine class(1000 ng/mL), Barbiturates(300 ng/mL), Benzodiazepines(200 ng/mL),Cocaine(300 ng/mL), Ethanol(50 ng/dL),Opiates(300 ng/mL),Oxycodone(100 ng/mL), and THC(50 ng/mL) A more specific alternative method must be used to confirm preliminary positive results. NOTE: These results are for medical treatment only. Analysis performed using non-forensic procedures. Test Performed by [facility], [address] [place] [place] [address] [place], [place] Amphetamines Ql (U) Negative [facility] Comment on above: Performed By: #### I GN #### [facility] [address] [facility] [place] Barbiturates Negative [facility] Comment on above: Performed By: #### I GN #### [facility] [address] [facility], [place] Benzodiazepines Ql (U) Negative [facility] Comment on above: Performed By: #### I GN #### [facility] [address] [facility], [place] Cocaine Metabolites Negative [facility] Comment on above: Performed By: #### I GN #### [facility] [address] [facility], [place] Comment [facility] Comment on above: Result Comment: [...] procedures. Performed By: #### I GN #### [facility] [address] [facility], [place] Ethanol [Mass/Vol] Negative [facility] Comment on above: Performed By: #### I GN #### [facility] [address] [facility], [place] Opiates Ql (U) Negative [facility] Comment on above: Performed By: #### I GN #### [facility] [address] [facility] [place] Oxycodone Negative [facility] Comment on above: Performed By: #### I GN #### [facility] [address] [place], [place] THC Negative [facility] Comment on above: Performed By: #### I GN #### [facility] [address], [place] Metabolic Panelon 06-16-2019 Sodium [Moles/Vol] Negative [place] Buprenorphine Screenon 06-08 Buprenorphine Screen Negative Normal [facility] Comment on above: Result Comment: Bupr enorphine (Suboxone) has been screened for by immunoassay at 5 ng/mL threshold. The screening assay provides only a preliminary test result. A more specific alternative method must be used to confirm preliminary positive results. Performed By: #### F ENTU, BUPR, IGN #### [place] [address] [address] [place], [place] Fentanyl Screen, Urineon Fentanyl Screen, Urn Negative Normal Negative [facility] Comment on above: Result Comment: Fent anyl has been screened for by Immunoassay at a 2ng/ml threshold. POSITIVE results are not confirmed by a more specific alternative method unless requested. If confirmation is needed, request confirmation under separate order. NOTE: These results are for medical treatment only. Analysis performed using non-forensic procedures. Performed By: #### F ENTU, BUPR, IGN #### [facility] [address] [place], [place] [facility] 2018 Amphetamines Ql (U) Negative [facility] Comment on above: Performed By: #### F ENTU, BUPR, IGN #### [facility] [address] [place], [place] Barbiturates Negative [facility] Comment on above: Performed By: #### F ENTU, BUPR, IGN #### [place] [address] [address] [place], [place] Benzodiazepines Ql (U) Negative [facility] Comment on above: Performed By: #### F ENTU, BUPR, IGN #### [place] [address] [address] [place], [place] Cocaine Metabolites Negative [facility] Comment on above: Performed By: #### F ENTU, BUPR, IGN #### [facility] [address] [place], [place] Comment Normal [facility] Comment on above: Result Comment: [...] By: #### F ENTU, BUPR, IGN #### [place] [address] [address] [place], [place] Ethanol [Mass/Vol] Negative [facility] Comment on above: Performed By: #### F ENTU, BUPR, IGN #### [place] [address] [address] [place], [place] Opiates Ql (U) Negative [facility] Comment on above: Performed By: #### F ENTU, BUPR, IGN #### [place] [address] [address] [place], [place] Oxycodone Negative [facility] Comment on above: Performed By: #### F ENTU, BUPR, IGN #### [place] [address] [address] [place], [place] THC Negative [facility] Comment on above: Performed By: #### F ENTU, BUPR, IGN #### [place] [address] [address] [place], [place] Cardiacon 06-01-2019 Cholesterol [Mass/Vol] 195 mg/dL <200 [place], [place] Cholesterol in HDL [Mass/Vol] 26 mg/dL Low 40 - 60 mg/dL [place] Cholesterol in LDL [Mass/Vol] 129 mg/dL Abnormal <100 [place] Triglyceride [Mass/Vol] 199 mg/dL Abnormal <150 [place] Metabolic Panelon 06-01-2019 HbA1c (Bld) [Mass fraction] 5.8 % High 4 - 5.7 % [place] Comment on above: --HgbA1C levels may not be accurate in patients who have renal disease, received recent blood transfusions, are anemic, or who have dyshemoglobinemia. Otheron 06-01-2019 eAG 120 mg/dL [place] Interpretation and review of laboratory results Abnormal [place] Test Performed by [place] [address] Test Performed by [place] [address] Cholesterol.total/Cho lesterol in HDL [Mass ratio] 8 {ratio} [place] Comment on above: Ref Range: < 3 Low Risk for CHD 3-6 Mod Risk for CHD > 6 High Risk for CHD Ref Range: < 3 Low Risk for CHD 3-6 Mod Risk for CHD > 6 High Risk for CHD Interpretation and review of laboratory results Abnormal [place] Test Performed by [facility], [facility] [address] [place], [place] [id number] [place] [address] Test Performed by [facility], [facility] [place], [place] [id number] [place] [address] Otheron 05-30-2019 [facility] Incoming Cardiology Results From 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1985 Requested By: Order Number: [id number] Reading MD: Rubio Gonzalez Measurements Intervals [place] Rate: 101 P: 72 RI: 160 QRS: 1 QRSD: 86 T: 29 QT: 353 QTc: 458 Interpretive Statements Sinus tachycardia Electronically Signed On 05-30-2019 17:49:59 EDT by Rubio Gonzalez [facility] [employer] Test Date: 2019-05-28 Pat Name: Sia Blake Department: 1AER Room: 36 Gender: F 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1985 Requested By: Order Number: [id number] Reading MD: Rubio Gonzalez Measurements Intervals [place] Rate: 101 P: 72 RI: 160 QRS: 1 QRSD: 86 T: 29 QT: 353 QTc: 458 Interpretive Statements Sinus tachycardia Electronically Signed On 05-30-2019 17:49:59 EDT by Rubio Gonzalez [facility] Test Date: 2019-05-28 Pat Name: Sia Blake Department: 1A Room: 36 Gender: F 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1985 Requested By: Order Number: [id number] Reading MD: Rubio Gonzalez Measurements Intervals [place] Rate: 101 P: 72 RI: 160 QRS: 1 QRSD: 86 T: 29 QT: 353 QTc: 458 Interpretive Statements Sinus tachycardia Electronically Signed On 05-30-2019 17:49:59 EDT by Rubio Gonzalez [place], [place] Hematologyon 05-28-2019 Basophils/100 WBC (Bld) 0.8 % 0 - 2 % [place] Eosinophils (Bld) [#/Vol] 0.2 10*3/uL 0 - 0.5 10*3/uL [place] Eosinophils/100 WBC (Bld) 2.1 % 1 - 6 % [place] Hematocrit (Bld) [Volume fraction] 37.3 % 35 - 47 % [place] Hemoglobin (Bld) [Mass/Vol] 12.7 g/dL 11.7 - 16 g/dL [place] Lymphocytes (Bld) [#/Vol] 3.3 10*3/uL 1 - 4.3 10*3/uL [place] Lymphocytes/100 WBC (Bld) 31.8 % 20 - 40 % [place] MCH (RBC) [Entitic mass] 32.2 pg 26 - 34 pg [place] MCV (RBC) [Entitic vol] 94.7 fL 79 - 98 fL [place] Monocytes (Bld) [#/Vol] 1.2 10*3/uL High 0 - 0.8 10*3/uL [place] Monocytes/100 WBC (Bld) 11.6 % High 2 - 10 % [place] Platelets (Bld) [#/Vol] 359 10*3/uL 140 - 440 10*3/uL [place] RBC (Bld) [#/Vol] 3.94 10*6/uL 3.8 - 5.2 10*6/uL [place] WBC (Bld) [#/Vol] 10.3 10*3/uL 3.6 - 10.7 10*3/uL [place] Metabolic Panelon 05-28-2019 Sodium [Moles/Vol] Accepted [place], [place] Comment on above: Specimen available & acceptable for analysis. Albumin [Mass/Vol] 4.3 g/dL 3.5 - 5 g/dL [place], [place] ALP [Catalytic activity/Vol] 49 U/L 38 - 126 U/L [place] ALT [Catalytic activity/Vol] 13 U/L 13 - 69 U/L [place] Anion gap [Moles/Vol] 10 mmol/L [place] AST [Catalytic activity/Vol] 23 U/L 15 - 46 U/L [place] Calcium [Mass/Vol] 9.8 mg/dL 8.4 - 10. 4 mg/dL [place] Chloride [Moles/Vol] 107 mmol/L 98 - 10 7 mmol/L [place] CO2 [Moles/Vol] 26 mmol/L 22 - 30 mmol/L [place] Creatinine [Mass/Vol] 0.71 mg/dL 0.52 - 1.25 mg/dL [place] GFR/1.73 sq M predicted among blacks MDRD (S/P/Bld) [Vol rate/Area] mL/min/{1.73_m2} >60 mL/min [place] Glucose [Mass/Vol] 81 mg/dL 70 - 100 mg/dL [place] Potassium [Moles/Vol] 3.4 mmol/L Low 3.5 - 5.1 mmol/L [facility], [place] Protein [Mass/Vol] 7.5 g/dL 6.3 - 8.2 g/dL [facility] Sodium [Moles/Vol] 142 mmol/L 135 - 145 mmol/L [facility] Urea nitrogen [Mass/Vol] 9 mg/dL 7 - 20 mg/dL [facility], [place] Otheron 05-28-2019 Amphetamines, urine Negative [facility], [place] Barbiturates, Ur Negative [facility], [place] Benzodiazepine Ur Qual Negative [facility], [place] Cocaine Metabolites, Ur Negative [facility], [place] Methadone, Urine Negative [facility], [place] Opiates, Urine Negative [facility], [place] Oxycodone Screen, Ur Negative [facility], [place] PCP, Urine Negative [facility], [place] Comment on above: The expected [...] confirmation under separate order. Test Performed by [facility], [address] [place] [address] Test Performed by [facility], [facility] [address] Interpretation and review of laboratory results Abnormal [place], [place] Total CK 219 U/L High 30 - 170 U/L [place] Test Performed by [facility], [facility] [address] [place], [place] [id number] [place] [address], [place] Test Performed by [facility], [facility] [place] [place], [place] [id number] [place] [address] Salicylate Lvl <1.0 0 - 20 mg/dL [facility], [place] Test Performed by [facility], [facility] [place], [place] [id number] [place] [address], [place] Test Performed by [facility], [facility] [place], [place] [id number] [place] [address], [place] Test Performed by [facility], [facility] [place], [place] [id number] [place] [address], [place] Test Performed by [facility], [facility] [place], [place] [id number] [place] [address], [place] Acetaminophen [Mass/Vol] <10.0 10 - 30 ug/mL [place] Bilirubin Ql (U) 0.4 mg/dL 0.2 - 1.3 mg/dL [place] EGFR IF NonAfrican [place]ese >60.0 >60 mL/min [place] Comment on above: Source- MDRD equatio n with creatinine calibration to IDMS(NKDEP) eGFR not recommended for drug dose adjustment Ethanol Lvl <0.010 0 - 0.01 g/dL [place] Comment on above: NOTE: This result is for medical treatment only. Analysis performed using non-forensic procedures. Interpretation and review of laboratory results Abnormal [facility], [place] Test Performed by [facility], [address] [place] [id number] [place] [address], [place] Test Performed by [id number] [place] [address], [place] Test Performed by [facility], [facility] [place], [place] [address] [place] [address], [place] Test Performed by [facility], [facility] [place], [place] [address] [place] [address], [place] Bilirubin Urine Negative mg/dL [place], [place] Comment on above: Reference Range: Neg ative Glucose, Ur Normal mg/dL [place], [place] Comment on above: Reference Range: Nor mal (<70) LEUKOCYTES, UA Negative [place]/uL [place], [place] Comment on above: Reference Range: Neg ative Nitrite, Urine Negative [place] Comment on above: Reference Range: Neg ative Occult Blood,Urine Negative mg/dL [place], [place] Comment on above: Reference Range: Neg ative pH (U) 8.0 [pH] [place] Specific [place], Urine 1.008 [place] Urobilinogen, Urine Normal mg/dL [place] Comment on above: Reference Range: Nor mal (0-1) Test Performed by [address] Test Performed by [address] Absolute Baso # 0.1 10*3/uL 0 - 0.2 10*3/uL [place] Absolute Neut # 5.5 10*3/uL 1.8 - 7 10*3/uL [place] Erythrocyte distribution width (RBC) [Ratio] 13.2 % 11.5 - 14.5 % [place] Granulocytes/100 WBC (Bld) 53.7 % 40 - 80 % [place] Interpretation and review of laboratory results Abnormal [place] MCHC (RBC) [Mass/Vol] 34.0 % 32 - 36 % [place], [place] Platelet mean volume (Bld) [Entitic vol] 7.5 fL 7.4 - 10.4 fL [place] Test Performed by [address] Test Performed by [place] [address] Urinalysison 05-28-2019 Beta HCG ( test) Ql (U) Negative Negative NA [place] Comment on above: is the mos t common reason for HCG in urine, although choriocarcinoma, hydatidiform mole, and certain nontropho- blastic malignancies also result in detectable urinary HCG levels. Sensitivity = 20mIU/mL. Appearance (U) Turbid [place] Comment on above: Reference Range: Vinicius ar Color (U) Light-Yellow [place] Comment on above: Reference Range: Lt. Yellow Ketones Ql (U) Negative mg/dL [facility] [place] Comment on above: Reference Range: Neg ative Protein (U) [Mass/Vol] Negative mg/dL [place] Comment on above: Reference Range: Neg ative [facility] 2018 Amphetamines Ql (U) Positive [facility] Comment on above: Performed By: #### I GN #### [facility] [address] [place], [place] THC Positive [facility] Comment on above: Performed By: #### I GN #### [facility] [address] [place], [place] Barbiturates Negative [facility] Comment on above: Performed By: #### I GN #### [place] [address] [address] [place], [place] Benzodiazepines Ql (U) Negative [facility] Comment on above: Performed By: #### I GN #### [facility] [address] [place], [place] Cocaine Metabolites Negative [facility] Comment on above: Performed By: #### I GN #### [facility] [address] [place], [place] Comment [facility] Comment on above: Result Comment: [...] procedures. Performed By: #### I GN #### [facility] [address] [place], [place] Ethanol [Mass/Vol] Negative [facility] Comment on above: Performed By: #### I GN #### [facility] [address] [place] [address] Opiates Ql (U) Negative Normal [facility] Comment on above: Performed By: #### I GN #### [facility] [address] [facility] [place] [address] Oxycodone Negative Normal [facility] Comment on above: Performed By: #### I GN #### [facility] [address] [place] [address] Metabolic Panelon 05-26-2019 Sodium [Moles/Vol] Positive [place] Sodium [Moles/Vol] [place] Comment on above: The following drugs [...] performed using non-forensic procedures. Sodium [Moles/Vol] Negative [facility], [place] Otheron 05-26-2019 Test Performed by [facility], [address], [place] [address] [place] Urinalysison 05-26-2019 Amphetamines Ql (U) Positive [place] Benzodiazepines Ql (U) Negative [facility], [place] Cocaine Ql (U) Negative [facility] Opiates Ql (U) Negative [place] [facility] [facility] Screen[facility] 2018 Amphetamines Ql (U) Positive [facility] Comment on above: Performed By: #### I GN #### [facility] [address] [place] [address] THC Positive Normal [facility] Comment on above: Performed By: #### I GN #### [facility] [address] [place] [address] [facility] 2018 Barbiturates Negative [facility] Comment on above: Performed By: #### I GN #### [facility] [address] [place] Benzodiazepines Ql (U) Negative [facility] Comment on above: Performed By: #### I GN #### [facility] [address] [place], [place] Cocaine Metabolites Negative [facility] Comment on above: Performed By: #### I GN #### [facility] [address] [facility], [place] Comment [facility] Comment on above: Result Comment: [...] procedures. Performed By: #### I GN #### [facility] [address] [place], [place] Ethanol [Mass/Vol] Negative [facility] Comment on above: Performed By: #### I GN #### [facility] [address] [place] Opiates Ql (U) Negative [facility] Comment on above: Performed By: #### I GN #### [facility] [address] [place] Oxycodone Negative [facility] Comment on above: Performed By: #### I GN #### [facility] [address] [place] [facility] 2018 Amphetamines Ql (U) Positive [facility] Comment on above: Performed By: #### I GN #### [facility] [address] [place], [place] THC Positive [facility] Comment on above: Performed By: #### I GN #### [facility] [address] [place], [place] Amphetamines Ql (U) Positive [facility], [place] Benzodiazepines Ql (U) Negative [facility], [place] Cocaine Ql (U) Negative [facility], [place] Opiates Ql (U) Negative [facility], [place] Sodium [Moles/Vol] Positive [facility], [place] Sodium [Moles/Vol] [facility], [place] Comment on above: The following drugs or drug groups have been screened for by Immunoassay at the thresholds listed: Amphetamine class(1000 ng/mL), Barbiturates(300 ng/mL), Benzodiazepines(200 ng/mL),Cocaine(300 ng/mL), Ethanol(50 ng/dL),Opiates(300 ng/mL),Oxycodone(100 ng/mL), and THC(50 ng/mL) A more specific alternative method must be used to confirm preliminary positive results. NOTE: These results are for medical treatment only. Analysis performed using non-forensic procedures. Test Performed by [facility], [address] [place], [place] [facility], [place] Barbiturates Negative [facility] Comment on above: Performed By: #### I GN #### [place] [address] [place], [place] Benzodiazepines Ql (U) Negative [facility] Comment on above: Performed By: #### I GN #### [place] [address] [place], [place] Cocaine Metabolites Negative [facility] Comment on above: Performed By: #### I GN #### [place] [address] [place], [place] Comment [facility] Comment on above: Result Comment: [...] procedures. Performed By: #### I GN #### [facility] [address] [place] [address] Ethanol [Mass/Vol] Negative Normal [facility] Comment on above: Performed By: #### I GN #### [facility] [address] [place] [address] Opiates Ql (U) Negative Normal [facility] Comment on above: Performed By: #### I GN #### [facility] [address] [place] [address] Oxycodone Negative [facility] Comment on above: Performed By: #### I GN #### [facility] [address] [place] [address] Metabolic Panelon 05-07-2019 Sodium [Moles/Vol] Negative [facility], [place] Wet Prepon 06-07-2017 Wet Prep SOURCE: Vag (Few Whi te Blood Cells No clue cells No Yeast No Trichomonas vaginalis) Normal [facility] [place] Amp RNAon 06-06-2017 Chlam Amp RNA Negative Normal Negative [facility] Comment on above: Result Comment: Holo gic? [...] Performance characteristics for this assay on specific sph-XAH-jomhadcw sample types (female urine) have been validated by [facility]. Performance has not been evaluated for patients less than 14 years of age. Results should be interpreted in conjunction with other clinical information. GC AMP RNAon 06-06-2017 GC Amp RNA Negative Normal Negative [facility] RUMon 06-06-2017 Bilirubin (total) Negative Normal Negative [facility] Comment on above: Result Comment: Nega tive Blood Negative Normal Negative [facility] Comment on above: Result Comment: Nega tive Erythrocytes (RBC) 0-2 Normal 0-2 [facility] Comment on above: Result Comment: 0-2 Glucose mass conc Negative Normal Negative [facility] Comment on above: Result Comment: Nega tive Leukocyte Marcia Negative Normal Negative [facility] Comment on above: Result Comment: Nega tive Protein Trace Abnormal Negative [facility] Comment on above: Result Comment: Trac e Squamous Epith FEW Normal FEW [facility] Comment on above: Result Comment: FEW Ur Appearance SL Cloudy Normal Clear [facility] Comment on above: Result Comment: SL C loudy Urine Spec [place] >=1.030 Normal 1.001-1.03 [facility] Comment on above: Result Comment: >=1. 030 Urine, color Yellow Normal Yellow [facility] Comment on above: Result Comment: Woods ow Urine, ketones presence Negative Normal Negative [facility] Comment on above: Result Comment: Nega tive Urine, nitrite presence Negative Normal Negative [facility] Comment on above: Result Comment: Nega tive Urine, pH 6.0 [pH] Normal 4.8 - 8.0 [facility] Comment on above: Result Comment: 6.0 Urine, urobilinogen 0.2 {Sonia'U}/dL Normal <1.0 [facility] Comment on above: Result Comment: 0.2 WBC (Leukocytes) 2-5 Normal 0-5 [facility] Comment on above: Result Comment: 2-5 Auto Diffon 04-19-2017 Basophils/100 WBC Auto (Bld) 0.1 x10E9/L Normal 0.0-0.2 [facility] Basophils/100 WBC Auto (Bld) 0.5 % Normal 0.0-2.4 [facility] Eosinophils 0.3 10*3/uL Normal 0.0-0.5 [facility] Eosinophils/100 leukocytes 2.3 % Normal 0.7-6.5 [facility] Lymphocytes 5.5 10*3/uL High 1.1-3.5 [facility] Lymphocytes/100 leukocytes 44.4 % High 17.0-44.0 [facility] Monocytes 0.8 10*3/uL Normal 0.3-1.0 [facility] Monocytes/100 leukocytes 6.3 % Normal 5.3-12.5 [facility] Neutrophils 5.7 10*3/uL Normal 1.8-7.5 [facility] Neutrophils/100 WBC Auto (Bld) 46.5 % Normal 41.0-73.8 [facility] BMPon 04-19-2017 Anion gap 9.0 mmol/L Normal 5.0-19.0 [facility] Bun/CretRatio 16.4 Normal [facility] Calcium 9.9 mg/dL Normal 8.1-10.1 [facility] Chloride 105 mmol/L Normal 98-107 [facility] CO2 25 mmol/L Normal 22-32 [facility] Creatinine 0.55 mg/dL Low 0.60-1.30 [facility] Glucose mass conc 97 mg/dL Normal 70-100 [facility] Osmolality-Calc 276 mOsm/kg Normal [facility] Potassium molar conc 3.7 mmol/L Normal 3.4-5.1 [facility] Sodium 139 mmol/L Normal 136-144 [facility] Urea nitrogen 9 mg/dL Normal 8-26 [facility] RUMon 04-19-2017 Bilirubin (total) Negative Normal Negative [facility] Blood Negative Normal Negative [facility] [place] Oxal Elana Few Abnormal [facility] Glucose mass conc Negative Normal Negative [facility] Leukocyte Marcia Negative Normal Negative [facility] Protein [facility] Normal Negative [facility] Squamous Epith FEW Normal FEW [facility] [place] Appearance Clear Normal Clear [facility] Urine Spec [place] >=1.030 Normal 1.001-1.03 [facility] Urine, bacteria in sediment 1+ POS Abnormal Negative [facility] [place], color Yellow Normal Yellow [facility] [place], ketones presence Trace Abnormal Negative [facility] [place], nitrite presence Negative Normal Negative [facility] [place]rine, pH 6.0 [pH] Normal 4.8 - 8.0 [facility] [place]rine, urobilinogen 0.2 {Sonia'U}/dL Normal <1.0 [facility] [place] 04-19-2017 HCG.beta subunit ( test) Ql (U) Negative Normal Negative [facility] Comment on above: Result Comment: [facility] testing performed by nursing. zCBCDon 04-19-2017 Erythrocyte distribution width Auto Ratio (RBC) 12.9 % Normal 11.4-16.0 [facility] Erythrocytes (RBC) 4.18 x10E12/L Normal 3.78-5.45 [facility] [place] Hematocrit (HCT) 39.1 % Normal 34.7-44.9 [facility] Hemoglobin mass conc (Bld) 12.9 g/dL Normal 11.3-15.6 [facility] MCH 31.0 pg Normal 26.5-33.0 [facility] MCHC mass conc (RBC) 33.1 g/dL Normal 32.6-36.0 [facility] MCV 93.6 fL Normal 80.0-100.0 [facility] Mean Plt Vol 7.4 fL Normal 7.2-10.3 [facility] Platelets 325 10*3/uL Normal 144-400 [facility] WBC (Leukocytes) 12.3 10*3/uL High 3.5-11.5 [facility] IUD INSERTION [facility] Vital Signs Date Time Vital Sign Value Performing Clinician Facility 02-21-2025 15:59-0400 Body temperature 98.7 [degF] Dr. Flora Prieto DO Work Phone: 9(971)805-285923 [place] [address] 02-21-2025 15:59-0400 Diastolic blood pressure 84 mm[Hg] Dr. Flora Prieto DO Work Phone: 8(596)215-606123 [place] [address] 02-21-2025 15:59-0400 Heart rate 73 /min Dr. Flora Prieto DO Work Phone: 0(952)588-266723 [place] [address] 02-21-2025 15:59-0400 Respiratory rate 16 /min Dr. Flora Prieto DO Work Phone: 9(109)220-136023 [place] [address] 02-21-2025 15:59-0400 SaO2% (BldA) [Mass fraction] 100 % Dr. Flora Prieto DO Work Phone: [facility] 02-21-2025 15:59-0400 Systolic blood pressure 133 mm[Hg] Dr. Flora Prieto DO Work Phone: 1(423)888-409323 [place] [address] 02-21-2025 13:19-0400 Body height 162.[address] Flora Prieto DO Work Phone: 2(661)059-185823 [place] [address] 02-21-2025 13:19-0400 Body mass index (BMI) [Ratio] 28.1 kg/m2 Dr. Flora Prieto DO Work Phone: 4(208)472-291623 [place] [address] 02-21-2025 13:19-0400 Body weight 74.[address] Flora Prieto DO Work Phone: 9(303)381-744794 [place] [address] 02-14-2025 18:00-0400 Body temperature 97.9 [degF] Dr. Flora Prieto DO Work Phone: 4(808)250-957523 [place] [address] 02-14-2025 18:00-0400 Diastolic blood pressure 82 mm[Hg] Dr. Flora Prieto DO Work Phone: 6(644)937-909794 [place] [address] 02-14-2025 18:00-0400 Heart rate 75 /min Dr. Flora Prieto DO Work Phone: 1(150)031-778194 [place] [address] 02-14-2025 18:00-0400 Respiratory rate 16 /min Dr. Flora Prieto DO Work Phone: 6(305)913-332523 [place] [address] 02-14-2025 18:00-0400 SaO2% (BldA) [Mass fraction] 100 % Dr. Flora Prieto DO Work Phone: 8(945)468-037494 [place] [address] 02-14-2025 18:00-0400 Systolic blood pressure 126 mm[Hg] Dr. Flora Prieto DO Work Phone: 6(422)930-965794 [place] [address] 02-14-2025 15:55-0400 Inhaled oxygen flow rate 8 L/min Dr. Flora Prieto DO Work Phone: 8(384)153-114523 [place] [address] 02-14-2025 13:25-0400 Body height 162.[address] Flora Prieto DO Work Phone: 0(346)876-384394 [place] [address] 02-14-2025 13:25-0400 Body mass index (BMI) [Ratio] 27.6 kg/m2 Dr. Flora Prieto DO Work Phone: 3(236)585-305723 [place] [address] 02-14-2025 13:25-0400 Body weight [address] Flora Prieto DO Work Phone: [facility] 02-02-2025 13:06-0400 Body height 162.[address] Flora Prieto DO Work Phone: 7(146)832-004223 [place] [address] 02-02-2025 13:06-0400 Body mass index (BMI) [Ratio] 28.1 kg/m2 Dr. Flora Prieto DO Work Phone: 2(018)108-245523 [place] [address] 02-02-2025 13:06-0400 Body weight 74.[address] Flora Prieto DO Work Phone: 8(408)060-945023 [place] [address] 02-02-2025 13:06-0400 Diastolic blood pressure 79 mm[Hg] Dr. Flora Prieto DO Work Phone: 0(194)459-312523 [place] [address] 02-02-2025 13:06-0400 Heart rate 90 /min Dr. Flora Prieto DO Work Phone: 2(271)862-649923 [place] [address] 02-02-2025 13:06-0400 Respiratory rate 17 /min Dr. Flora Prieto DO Work Phone: 7(084)628-228923 [place] [address] 02-02-2025 13:06-0400 SaO2% (BldA) [Mass fraction] 98 % Dr. Flora Prieto DO Work Phone: [facility] 02-02-2025 13:06-0400 Systolic blood pressure 127 mm[Hg] Dr. Flora Prieto DO Work Phone: [facility] 01-15-2025 21:26-0400 Body temperature 98.7 [degF] Dr. Flora Prieto DO Work Phone: 7(820)656-290523 [place] [address] 01-15-2025 21:26-0400 Diastolic blood pressure 90 mm[Hg] Dr. Flora Prieto DO Work Phone: [facility] 01-15-2025 21:26-0400 Heart rate 75 /min Dr. Flora Prieto DO Work Phone: [facility] 01-15-2025 21:26-0400 Respiratory rate 16 /min Dr. Flora Prieto DO Work Phone: [facility] 01-15-2025 21:26-0400 SaO2% (BldA) [Mass fraction] 100 % Dr. Flora Prieto DO Work Phone: [facility] 01-15-2025 21:26-0400 Systolic blood pressure 131 mm[Hg] Dr. Flora Prieto DO Work Phone: [facility] 01-15-2025 17:48-0400 Body mass index (BMI) [Ratio] 28.8 kg/m2 Dr. Flora Prieto DO Work Phone: [facility] 01-15-2025 17:48-0400 Body weight 76.[address] Flora Prieto DO Work Phone: [facility] 12-31-2024 12:56-0400 Body mass index (BMI) [Ratio] 28.15 kg/m2 Hui Podlogar RECORDS MANAGEMENT ANALYST.DIRECTOR RECORDS MANAGEMENT Work Phone: [facility] 12-31-2024 12:56-0400 Body weight 74.39 kg Hui Podlogar RECORDS MANAGEMENT ANALYST.DIRECTOR RECORDS MANAGEMENT Work Phone: [facility] 12-31-2024 12:56-0400 Diastolic blood pressure 78 mm[Hg] Hui Podlogar RECORDS MANAGEMENT ANALYST.DIRECTOR RECORDS MANAGEMENT Work Phone: [facility] 12-31-2024 12:56-0400 Heart rate 100 /min Hui Podlogar RECORDS MANAGEMENT ANALYST.DIRECTOR RECORDS MANAGEMENT Work Phone: [facility] 12-31-2024 12:56-0400 Respiratory rate 16 /min Hui Podlogar RECORDS MANAGEMENT ANALYST.DIRECTOR RECORDS MANAGEMENT Work Phone: [facility] 12-31-2024 12:56-0400 SaO2% (BldA) [Mass fraction] 97 % Hui Podlogar RECORDS MANAGEMENT ANALYST.DIRECTOR RECORDS MANAGEMENT Work Phone: [facility] 12-31-2024 12:56-0400 Systolic blood pressure 122 mm[Hg] Hui Podlogar RECORDS MANAGEMENT ANALYST.DIRECTOR RECORDS MANAGEMENT Work Phone: [facility] 10-18-2024 10:07-0500 Body height 162.6 cm Temitope Bear RECORDS MANAGEMENT ANALYST.CNM Work Phone: [facility] 10-18-2024 10:07-0500 Body mass index (BMI) [Ratio] 28.67 kg/m2 Temitope Bear RECORDS MANAGEMENT ANALYST.CNM Work Phone: [facility] 10-18-2024 10:07-0500 Body weight 75.75 kg Temitope Bear RECORDS MANAGEMENT ANALYST.CNM Work Phone: [facility] 10-18-2024 10:07-0500 Diastolic blood pressure 74 mm[Hg] Teimtope Bear RECORDS MANAGEMENT ANALYST.CNM Work Phone: [facility] 10-18-2024 10:07-0500 Systolic blood pressure 126 mm[Hg] Temitope Bear RECORDS MANAGEMENT ANALYST.CNM Work Phone: [facility] 07-05-2024 12:58-0400 Body height 160.4 cm Hui Podlogar RECORDS MANAGEMENT ANALYST.DIRECTOR RECORDS MANAGEMENT Work Phone: [facility] 07-05-2024 12:58-0400 Body mass index (BMI) [Ratio] 30.63 kg/m2 Hui Podlogar RECORDS MANAGEMENT ANALYST.DIRECTOR RECORDS MANAGEMENT Work Phone: [facility] 07-05-2024 12:58-0400 Body weight 78.8 kg Hui Podlogar RECORDS MANAGEMENT ANALYST.DIRECTOR RECORDS MANAGEMENT Work Phone: [facility] 07-05-2024 12:58-0400 Diastolic blood pressure 84 mm[Hg] Hui Podlogar RECORDS MANAGEMENT ANALYST.DIRECTOR RECORDS MANAGEMENT Work Phone: [facility] 07-05-2024 12:58-0400 Heart rate 94 /min Hui Podlogar RECORDS MANAGEMENT ANALYST.DIRECTOR RECORDS MANAGEMENT Work Phone: [facility] 07-05-2024 12:58-0400 Respiratory rate 16 /min Hui Podlogar RECORDS MANAGEMENT ANALYST.DIRECTOR RECORDS MANAGEMENT Work Phone: [facility] 07-05-2024 12:58-0400 SaO2% (BldA) [Mass fraction] 98 % Hui Podlogar RECORDS MANAGEMENT ANALYST.DIRECTOR RECORDS MANAGEMENT Work Phone: [facility] 07-05-2024 12:58-0400 Systolic blood pressure 136 mm[Hg] Hui Valdes APRN.DIRECTOR RECORDS MANAGEMENT Work Phone: [facility] 07-01-2023 10:36-0400 Body height 161.3 cm Shaun Carlin MD Work Phone: [facility] 07-01-2023 10:36-0400 Body temperature 98.4 [degF] Shaun Carlin MD Work Phone: [facility] 07-01-2023 10:36-0400 Body weight 87.09 kg Shaun Carlin MD Work Phone: [facility] 07-01-2023 10:36-0400 Diastolic blood pressure 86 mm[Hg] Shaun Carlin MD Work Phone: [facility] 07-01-2023 10:36-0400 Heart rate 64 /min Shaun Carlin MD Work Phone: [facility] 07-01-2023 10:36-0400 Systolic blood pressure 102 mm[Hg] Shaun Carlin MD Work Phone: [facility] 03-26-2023 13:59-0400 Body height 161.3 cm Esme Grace MD Work Phone: [facility] 03-26-2023 13:59-0400 Body weight 89.72 kg Esme Grace MD Work Phone: [facility] 03-26-2023 13:59-0400 Diastolic blood pressure 79 mm[Hg] Esme Grace MD Work Phone: [facility] 03-26-2023 13:59-0400 Heart rate 77 /min Esme Grace MD Work Phone: [facility] 03-26-2023 13:59-0400 Systolic blood pressure 123 mm[Hg] Esme Grace MD Work Phone: [facility] 01-17-2023 09:19-0400 Diastolic blood pressure 71 mm[Hg] Esme Grace MD Work Phone: [facility] 01-17-2023 09:19-0400 Heart rate 90 /min Esme Grace MD Work Phone: [facility] 01-17-2023 09:19-0400 Respiratory rate 17 /min Esme Grace MD Work Phone: [facility] 01-17-2023 09:19-0400 SaO2% (BldA) [Mass fraction] 97 % Esme Grace MD Work Phone: [facility] 01-17-2023 09:19-0400 Systolic blood pressure 123 mm[Hg] Esme Grace MD Work Phone: [facility] 01-17-2023 08:56-0400 Body temperature 97.2 [degF] Esme Grace MD Work Phone: [facility] 01-01-2023 14:20-0400 Body height 161.3 cm Esme Grace MD Work Phone: [facility] 01-01-2023 14:20-0400 Body weight 93.89 kg Esme Grace MD Work Phone: [facility] 01-01-2023 14:20-0400 Diastolic blood pressure 76 mm[Hg] Esme Grace MD Work Phone: [facility] 01-01-2023 14:20-0400 Heart rate 80 /min Esme Grace MD Work Phone: [facility] 01-01-2023 14:20-0400 Systolic blood pressure 118 mm[Hg] Esme Grace MD Work Phone: [facility] 12-10-2022 14:38-0400 Diastolic blood pressure 78 mm[Hg] Shaun Carlin MD Work Phone: [facility] 12-10-2022 14:38-0400 Systolic blood pressure 130 mm[Hg] Shaun Carlin MD Work Phone: [facility] 12-10-2022 14:28-0400 Body height 162.6 cm Shaun Carlin MD Work Phone: [facility] 12-10-2022 14:28-0400 Body temperature 97.3 [degF] Shaun Carlin MD Work Phone: [facility] 12-10-2022 14:28-0400 Body weight 95.25 kg Shaun Carlin MD Work Phone: [facility] 12-10-2022 14:28-0400 Heart rate 88 /min Shaun Carlin MD Work Phone: [facility] 12-10-2022 09:45-0400 Body height 162.6 cm Alysha Speedy RECORDS MANAGEMENT ANALYST.DIRECTOR RECORDS MANAGEMENT Work Phone: [facility] 12-10-2022 09:45-0400 Body weight 95.25 kg Alysha Speedy RECORDS MANAGEMENT ANALYST.DIRECTOR RECORDS MANAGEMENT Work Phone: [facility] 12-10-2022 09:45-0400 Diastolic blood pressure 80 mm[Hg] Alysha Speedy RECORDS MANAGEMENT ANALYST.DIRECTOR RECORDS MANAGEMENT Work Phone: [facility] 12-10-2022 09:45-0400 Systolic blood pressure 114 mm[Hg] Alysha Speedy RECORDS MANAGEMENT ANALYST.DIRECTOR RECORDS MANAGEMENT Work Phone: [facility] 11-01-2022 13:40-0500 Body height 162.6 cm Alysha Speedy RECORDS MANAGEMENT ANALYST.DIRECTOR RECORDS MANAGEMENT Work Phone: [facility] 11-01-2022 13:40-0500 Body weight 97.43 kg Alysha Speedy RECORDS MANAGEMENT ANALYST.DIRECTOR RECORDS MANAGEMENT Work Phone: [facility] 11-01-2022 13:40-0500 Diastolic blood pressure 90 mm[Hg] Alysha Speedy RECORDS MANAGEMENT ANALYST.DIRECTOR RECORDS MANAGEMENT Work Phone: [facility] 11-01-2022 13:40-0500 Systolic blood pressure 152 mm[Hg] Alysha Speedy RECORDS MANAGEMENT ANALYST.DIRECTOR RECORDS MANAGEMENT Work Phone: [facility] 10-23-2022 15:05-0500 Body height 162.6 cm Tricia Rangel MD Work Phone: [facility] 10-23-2022 15:05-0500 Body weight 96.62 kg Tricia Rangel MD Work Phone: [facility] 10-23-2022 15:05-0500 Diastolic blood pressure 82 mm[Hg] Tricia Rangel MD Work Phone: [facility] 10-23-2022 15:05-0500 Systolic blood pressure 141 mm[Hg] Tricia Rangel MD Work Phone: [facility] 10-08-2022 10:52-0500 Body height 162.6 cm Shaun Carlin MD Work Phone: [facility] 10-08-2022 10:52-0500 Body temperature 97.5 [degF] Shaun Carlin MD Work Phone: [facility] 10-08-2022 10:52-0500 Body weight 97.98 kg Shaun Carlin MD Work Phone: [facility] 10-08-2022 10:52-0500 Diastolic blood pressure 88 mm[Hg] Shaun Carlin MD Work Phone: [facility] 10-08-2022 10:52-0500 Heart rate 80 /min Shaun Carlin MD Work Phone: [facility] 10-08-2022 10:52-0500 Systolic blood pressure 136 mm[Hg] Shaun Carlin MD Work Phone: [facility] 09-04-2022 14:42-0500 Body height 162.6 cm Tricia Rangel MD Work Phone: [facility] 09-04-2022 14:42-0500 Body weight 104.78 kg Tricia Rangel MD Work Phone: [facility] 09-04-2022 14:42-0500 Diastolic blood pressure 75 mm[Hg] Tricia Rangel MD Work Phone: [facility] 09-04-2022 14:42-0500 Systolic blood pressure 120 mm[Hg] Tricia Rangel MD Work Phone: [facility] 08-30-2022 14:35-0500 Body height 162.6 cm Flora Browning MD Work Phone: [facility] 08-30-2022 14:35-0500 Body weight 104.42 kg Flora Browning MD Work Phone: [facility] 08-30-2022 14:35-0500 Diastolic blood pressure 76 mm[Hg] Flora Browning MD Work Phone: [facility] 08-30-2022 14:35-0500 Systolic blood pressure 133 mm[Hg] Flora Browning MD Work Phone: [facility] 08-23-2022 14:00-0500 Body height 162.6 cm Flora Browning MD Work Phone: [facility] 08-23-2022 14:00-0500 Body weight 104.33 kg Flora Browning MD Work Phone: [facility] 08-23-2022 14:00-0500 Diastolic blood pressure 89 mm[Hg] Flora Browning MD Work Phone: [facility] 08-23-2022 14:00-0500 Systolic blood pressure 128 mm[Hg] Flora Browning MD Work Phone: [facility] 08-15-2022 14:33-0500 Body height 162.6 cm Flora Browning MD Work Phone: [facility] 08-15-2022 14:33-0500 Body weight 104.01 kg Flora Browning MD Work Phone: [facility] 08-15-2022 14:33-0500 Diastolic blood pressure 72 mm[Hg] Flora Browning MD Work Phone: [facility] 08-15-2022 14:33-0500 Systolic blood pressure 122 mm[Hg] Flora Browning MD Work Phone: [facility] 08-06-2022 13:12-0500 Body height 162.6 cm Yael Mahmood APRN.CNM Work Phone: [facility] 08-06-2022 13:12-0500 Body weight 105.33 kg Yael Mahmood RECORDS MANAGEMENT ANALYST.CNM Work Phone: [facility] 08-06-2022 13:12-0500 Diastolic blood pressure 71 mm[Hg] Yael Mahmood RECORDS MANAGEMENT ANALYST.CNM Work Phone: [facility] 08-06-2022 13:12-0500 Systolic blood pressure 113 mm[Hg] Yael Mahmood RECORDS MANAGEMENT ANALYST.CNM Work Phone: [facility] 08-02-2022 13:26-0500 Body height 162.6 cm Flora Browning MD Work Phone: [facility] 08-02-2022 13:26-0500 Body weight 105.46 kg Flora Browning MD Work Phone: [facility] 08-02-2022 13:26-0500 Diastolic blood pressure 77 mm[Hg] Flora Browning MD Work Phone: [facility] 08-02-2022 13:26-0500 Systolic blood pressure 123 mm[Hg] Flora Browning MD Work Phone: [facility] 07-19-2022 11:15-0400 Body height 162.6 cm Honey Surace PA-C Work Phone: [facility] 07-19-2022 11:15-0400 Body weight 105.69 kg Honey Surace PA-C Work Phone: [facility] 07-19-2022 11:15-0400 Diastolic blood pressure 71 mm[Hg] Honey Surace PA-C Work Phone: [facility] 07-19-2022 11:15-0400 Systolic blood pressure 113 mm[Hg] Honey Surace PA-C Work Phone: [facility] 07-05-2022 10:20-0400 Body height 162.6 cm Honey Surace PA-C Work Phone: [facility] 07-05-2022 10:20-0400 Body weight 104.78 kg Honey Surace PA-C Work Phone: [facility] 07-05-2022 10:20-0400 Diastolic blood pressure 84 mm[Hg] Honey Surace PA-C Work Phone: [facility] 07-05-2022 10:20-0400 Systolic blood pressure 125 mm[Hg] Honey Surace PA-C Work Phone: [facility] 06-21-2022 13:15-0400 Body height 162.6 cm Honey Surace PA-C Work Phone: [facility] 06-21-2022 13:15-0400 Body weight 104.64 kg Honey Surace PA-C Work Phone: [facility] 06-21-2022 13:15-0400 Diastolic blood pressure 69 mm[Hg] Honey Surace PA-C Work Phone: [facility] 06-21-2022 13:15-0400 Systolic blood pressure 106 mm[Hg] Honey Surace PA-C Work Phone: [facility] 05-10-2022 08:37-0400 Body height 162.6 cm Honey Surace PA-C Work Phone: [facility] 05-10-2022 08:37-0400 Body weight 102.69 kg Honey Surace PA-C Work Phone: [facility] 05-10-2022 08:37-0400 Diastolic blood pressure 71 mm[Hg] Honey Surace PA-C Work Phone: [facility] 05-10-2022 08:37-0400 Systolic blood pressure 107 mm[Hg] Honey Surace PA-C Work Phone: [facility] 05-06-2022 13:44-0400 Body weight 103.06 kg Shaun Carlin MD Work Phone: [facility] 05-06-2022 13:44-0400 Diastolic blood pressure 72 mm[Hg] Shaun Carlin MD Work Phone: [facility] 05-06-2022 13:44-0400 Heart rate 95 /min Shaun Carlin MD Work Phone: [facility] 05-06-2022 13:44-0400 SaO2% (BldA) [Mass fraction] 98 % Shaun Carlin MD Work Phone: [facility] 05-06-2022 13:44-0400 Systolic blood pressure 120 mm[Hg] Shanu Carlin MD Work Phone: [facility] 04-05-2022 10:13-0400 Body height 162.6 cm Shaun Carlin MD Work Phone: [facility] 04-05-2022 10:13-0400 Body temperature 98.8 [degF] Shaun Carlin MD Work Phone: [facility] 04-05-2022 10:13-0400 Body weight 102.06 kg Shaun Carlin MD Work Phone: [facility] 04-05-2022 10:13-0400 Diastolic blood pressure 82 mm[Hg] Shaun Carlin MD Work Phone: [facility] 04-05-2022 10:13-0400 Heart rate 100 /min Shaun Carlin MD Work Phone: [facility] 04-05-2022 10:13-0400 Systolic blood pressure 110 mm[Hg] Shaun Carlin MD Work Phone: [facility] 04-05-2022 08:47-0400 Body height 162.6 cm Honey Surace PA-C Work Phone: [facility] 04-05-2022 08:47-0400 Body weight 102.06 kg Honey Surace PA-C Work Phone: [facility] 04-05-2022 08:47-0400 Diastolic blood pressure 71 mm[Hg] Honey Surace PA-C Work Phone: [facility] 04-05-2022 08:47-0400 Systolic blood pressure 116 mm[Hg] Honey Surace PA-C Work Phone: [facility] 02-14-2022 14:32-0400 Body height 162.6 cm Flora Browning MD Work Phone: [facility] 02-14-2022 14:32-0400 Body weight 100.83 kg Flora Browning MD Work Phone: [facility] 02-14-2022 14:32-0400 Diastolic blood pressure 87 mm[Hg] Flora Browning MD Work Phone: [facility] 02-14-2022 14:32-0400 Systolic blood pressure 127 mm[Hg] Flora Browning MD Work Phone: [facility] 02-08-2022 10:03-0400 Body height 162.6 cm Shaun Carlin MD Work Phone: [facility] 02-08-2022 10:03-0400 Body temperature 97.9 [degF] Shaun Carlin MD Work Phone: [facility] 02-08-2022 10:03-0400 Body weight 101.15 kg Shaun Carlin MD Work Phone: [facility] 02-08-2022 10:03-0400 Diastolic blood pressure 76 mm[Hg] Shaun Carlin MD Work Phone: [facility] 02-08-2022 10:03-0400 Heart rate 92 /min Shaun Carlin MD Work Phone: [facility] 02-08-2022 10:03-0400 Systolic blood pressure 114 mm[Hg] Shaun Carlin MD Work Phone: [facility] 01-23-2022 10:07-0400 Body height 160.02 cm Shaun Carlin Work Phone: [facility] Work Phone: 01-23-2022 10:07-0400 Body mass index (BMI) [Ratio] 39.72 kg/m2 Shaun Carlin Work Phone: [facility] Work Phone: 01-23-2022 10:07-0400 Body surface area Derived from formula 2.03 m2 Shaun Carlin Work Phone: [facility] Work Phone: 01-23-2022 10:07-0400 Body temperature 98.6 [degF] Shaun Solorzanol Work Phone: [facility] Work Phone: 01-23-2022 10:07-0400 Body weight 101.72 kg Shaun Solorzanol Work Phone: [facility] Work Phone: 01-23-2022 10:07-0400 Diastolic blood pressure 74 mm[Hg] Shaun Solorzanol Work Phone: [facility] Work Phone: 01-23-2022 10:07-0400 Heart rate 100 /min Shaun Solorzanol Work Phone: [facility] Work Phone: 01-23-2022 10:07-0400 SaO2% (BldA) [Mass fraction] 96 % Shaun Solorzanol Work Phone: [facility] Work Phone: 01-23-2022 10:07-0400 Systolic blood pressure 114 mm[Hg] Shaun Solorzanol Work Phone: [facility] Work Phone: 01-18-2022 13:52-0400 Body height 162.6 cm Rolan Biats DO Work Phone: [facility] 01-18-2022 13:52-0400 Body weight 101.61 kg Rolan Biats DO Work Phone: [facility] 01-18-2022 13:52-0400 Diastolic blood pressure 83 mm[Hg] Rolan Biats DO Work Phone: [facility] 01-18-2022 13:52-0400 Systolic blood pressure 124 mm[Hg] Rolan Biats DO Work Phone: [facility] 01-08-2022 16:24-0400 Body height 162.6 cm Shaun Carlin MD Work Phone: [facility] 01-08-2022 16:24-0400 Body temperature 98.91 [degF] Shaun Carlin MD Work Phone: [facility] 01-08-2022 16:24-0400 Body weight 101.61 kg Shaun Carlin MD Work Phone: [facility] 01-08-2022 16:24-0400 Diastolic blood pressure 92 mm[Hg] Shaun Carlin MD Work Phone: [facility] 01-08-2022 16:24-0400 Heart rate 96 /min Shaun Carlin MD Work Phone: [facility] 01-08-2022 16:24-0400 Systolic blood pressure 136 mm[Hg] Shaun Carlin MD Work Phone: [facility] 06-19-2021 00:10-0400 Body height 162.6 cm [...] Phone: 12-24-2020 01:29-0400 Body Temperature 98.91 [degF] [facility] Work Phone: 12-24-2020 01:29-0400 BP Diastolic 82 mm[Hg] [facility] Work Phone: 12-24-2020 01:29-0400 BP Systolic 117 mm[Hg] [facility] Work Phone: 12-24-2020 01:29-0400 Pulse (Heart Rate) 81 /min [facility] Work Phone: 12-24-2020 01:29-0400 Pulse Oximetry 98 % [facility] Work Phone: 12-24-2020 01:29-0400 Respiratory Rate 16 /min [facility] Work Phone: 12-23-2020 21:40-0400 BMI (Body Mass Index) 36.05 kg/m2 [facility] Work Phone: 12-23-2020 21:40-0400 Body weight 95.25 kg [facility] Work Phone: 12-23-2020 21:39-0400 Height 162.6 cm [facility] Work Phone: 08-16-2020 16:43-0500 BMI (Body Mass Index) 34.16 kg/m2 Desiree Casarez [facility] Work Phone: 08-16-2020 16:43-0500 Body Temperature 97.9 [degF] Desiree Casarez [facility] Work Phone: Comment on above: Method: Temporal 08-16-2020 16:43-0500 Body weight 90.27 kg Desiree Casarez [facility] Work Phone: 08-16-2020 16:43-0500 BP Diastolic 82 mm[Hg] Desiree Casarez [facility] Work Phone: Comment on above: Location: LUE; Position: Sitting 08-16-2020 16:43-0500 BP Systolic 124 mm[Hg] Desiree Casarez [facility] Work Phone: Comment on above: Location: LUE; Position: Sitting 08-16-2020 16:43-0500 BSA (Body Surface Area) 1.95 m2 Desiree Casarez [facility] Work Phone: 08-16-2020 16:43-0500 Height 162.56 cm Desiree Casarez [facility] Work Phone: 08-16-2020 16:43-0500 Pulse (Heart Rate) 85 /min Desiree Casarez [facility] Work Phone: 08-16-2020 16:43-0500 Pulse Oximetry 98 % Desiree Casarez [facility] Work Phone: Comment on above: Source: 08-16-2020 16:43-0500 Respiratory Rate 18 /min Desiree Casarez [facility] Work Phone: 06-04-2019 06:07-0400 Body Temperature 98.01 [degF] Christina Juan Carlos [facility] [place], [place] 06-04-2019 06:07-0400 BP Diastolic 82 mm[Hg] Christina [facility] [place] , [place] 06-04-2019 06:07-0400 BP Systolic 114 mm[Hg] Christina [facility] , [place] 06-04-2019 06:07-0400 Pulse (Heart Rate) 90 /min Christina [facility], [place] 06-04-2019 06:07-0400 Pulse Oximetry 96 % Christina Rangel [facility] , [place] 06-04-2019 06:07-0400 Respiratory Rate 18 /min Christina Rangel [facility], [place] 06-02-2019 17:08-0400 BMI (Body Mass Index) 26.61 kg/m2 Christina Rangel [facility], [place] 06-02-2019 17:08-0400 Body weight 70.31 kg Christina Rangel [facility] , [place] 06-02-2019 17:08-0400 Height 162.6 cm Christina Rangel [facility] , [place] 05-29-2019 09:56-0400 BMI (Body Mass Index) 26.61 kg/m2 Mio [facility], [place] 05-29-2019 09:56-0400 Body Temperature 97.7 [degF] Mio [facility], [place] 05-29-2019 09:56-0400 Body weight 70.31 kg Mio [facility] , [place] 05-29-2019 09:56-0400 BP Diastolic 96 mm[Hg] [facility] [place] 05-29-2019 09:56-0400 BP Systolic 145 mm[Hg] [facility] [place] 05-29-2019 09:56-0400 Height 162.6 cm Mio [facility] , [place] 05-29-2019 09:56-0400 Pulse (Heart Rate) 98 /min Mio [facility], [place] 05-29-2019 09:56-0400 Pulse Oximetry 100 % [facility] 05-29-2019 09:56-0400 Res[facility] Rate 16 /[facility] 05-29-2019 05:54-0400 BP Diastolic 98 mm[Hg] [facility] 05-29-2019 05:54-0400 BP Systolic 142 mm[Hg] [facility] , [place] 05-29-2019 05:54-0400 Pulse (Heart Rate) 89 /min [facility] [place] 05-29-2019 05:54-0400 Pulse Oximetry 100 % Ese Ha [facility] , [place] 05-29-2019 05:54-0400 Respiratory Rate 16 /min Ese Ha [facility], [place] 05-28-2019 19:04-0400 BMI (Body Mass Index) 25.06 kg/m2 Ese Ha [facility], [place] 05-28-2019 19:04-0400 Body Temperature 98.2 [degF] Ese Ha [facility], [place] 05-28-2019 19:04-0400 Body weight 72.58 kg [facility] , [place] 05-28-2019 17:30-0400 Height 170.2 cm Ese [facility] , [place] Encounters Encounter Date Encounter Type Care Provider Facility Start: 02-21-2025 End: 02-21-2025 Emergency department patient visit Dr. Flora Prieto DO Work Phone: -Emergency Department Work Phone: Start: 02-20-2025 Encounter for other preprocedural examination Desean Rodriguez [facility] Start: 02-14-2025 ambulatory Desean Rodriguez Facility :[facility] Start: 02-14-2025 Non-patient / Non-visit Dr. Sofía MARADIAGA [facility] Start: 02-14-2025 End: 02-14-2025 Admission to same day surgery center Dr. Desean Rodriguez MD [facility] Start: 02-14-2025 End: 02-14-[address] Flora Prieto DO Work Phone: [facility] Work Phone: Start: 02-02-2025 End: 02-02-[address] Desean Rodriguez MD -[facility] Work Phone: Start: 02-02-2025 End: 02-02-[address] Flora Prieto DO Work Phone: [facility] Work Phone: Start: 01-15-2025 End: [...] Start: 12-31-2024 End: 12-31-2024 ambulatory HUI ORTIZLOGYASHIRA Facility:[facility] Start: 12-28-2024 End: 12-29-2024 Telephone encounter Temitope Bear APRN.CNM Work Phone: OB/Gynecology Comment on above: Orders Start: 10-26-2024 End: 12-26-2024 Follow-up encounter Temitope Bear APRN.CNM Work Phone: OB/Gynecology Start: 10-18-2024 End: 10-18-2024 ambulatory TEMITOPE BEAR Facility:[facility] Start: 10-18-2024 End: 10-18-2024 Patient encounter procedure [...] encounter status Temitope Bear APRN.CNM Work Phone: [facility] Start: 10-13-2024 End: 10-14-2024 MC Get Medical Advice Hui Valdes APRN.CNP Work Phone: [facility] [place] Comment on above: Refill Refill Request Start: 08-13-2024 End: 08-13-2024 Telephone encounter No Pcp JAZ [facility] Start: 07-27-2024 End: 07-27-2024 ambulatory Hui Podlogar RECORDS MANAGEMENT ANALYST.DIRECTOR RECORDS MANAGEMENT Work Phone: [facility] [place] Comment on above: Hydrocortisone Start: 07-27-2024 End: 07-27-2024 E-mail encounter from caregiver Hui Ortizjen SEBASTIAN.DIRECTOR RECORDS MANAGEMENT Work Phone: [facility] Start: 07-26-2024 End: 07-27-2024 ambulatory Hui Podlogar RECORDS MANAGEMENT ANALYST.DIRECTOR RECORDS MANAGEMENT Work Phone: [facility] [place] Comment on above: Medication Start: 07-08-2024 End: 07-12-2024 ambulatory Hui Podlogar RECORDS MANAGEMENT ANALYST.DIRECTOR RECORDS MANAGEMENT Work Phone: [facility] [place] Comment on above: Depression Start: 07-08-2024 Encounter for genera l adult medical examination without abnormal findings HUI PODLOGYASHIRA [facility] Start: 07-05-2024 End: 07-05-2024 Patient encounter procedure Hui Valdes APRN.DIRECTOR RECORDS MANAGEMENT Work Phone: [facility] [place] Comment on above: Encounter for [...] End: 07-05-2024 Patient encounter status Hui Valdes APRN.DIRECTOR RECORDS MANAGEMENT Work Phone: [facility] Start: 07-05-2024 End: 07-05-2024 ambulatory HUI PODLOGAR Facility:[facility] Start: 12-30-2023 ambulatory Shaun Sanchez Work Phone: [facility] Comment on above: Yeast infection Start: 11-07-2023 End: 11-07-2023 ambulatory SHAUN CARLIN Facility:[facility] Start: 07-01-2023 End: 07-01-2023 Patient encounter procedure Shaun Carlin MD Work Phone: Family [facility] Comment on above: Routine physical exa mination (Primary Dx); Migraine without aura and without status migrainosus, not intractable; Hyperlipidemia, mixed; Obesity, Class I, BMI 30-34.9; Ventral hernia without obstruction or gangrene; Onychomycosis; External hemorrhoid; Encounter for immunization Start: 07-01-2023 End: 07-01-2023 Physical examination Shaun Carlin MD Work Phone: [facility] Work Phone: Start: 03-26-2023 End: 03-26-2023 [facility] Start: 03-26-2023 End: 03-26-2023 Patient encounter [...] Encounter for other preprocedural examination ESME GRACE [facility] Start: 01-17-2023 ambulatory ESME GRACE Facility: [facility] Start: 01-17-2023 End: 07-01-2023 Patient encounter status Esme Grace MD Work Phone: [facility] Start: 01-17-2023 End: 01-17-2023 Subsequent hospital visit by physician Esme Grace MD Work Phone: [facility] Comment on above: Gastroesophageal ref lux disease, unspecified whether esophagitis present [K21.9] Start: 01-01-2023 End: 01-01-2023 [facility] Facility:[facility] Start: 01-01-2023 End: 01-01-2023 Patient encounter [...] (EGD) Start: 12-25-[address] Shaun Barger ty:[id number] Start: 12-10-2022 End: 12-10-2022 Patient encounter procedure Shaun Carlin MD Work Phone: Family Medicine Comment on above: Hypertension, essent ial (Primary Dx); History of gestational diabetes; Obesity, Class II, BMI 35-39.9; GERD without esophagitis; PUD (peptic ulcer disease); External hemorrhoid Start: 12-10-2022 End: 12-10-2022 Patient encounter procedure Alysha Ruff APRN.DIRECTOR RECORDS MANAGEMENT Work Phone: [facility] Ob[facility]etric[facility] & Gynecology Comment on above: Encounter for routin e checking of intrauterine contraceptive device (IUD) (Primary Dx) Start: 11-07-2022 Patient encounter procedure [facility] Provider [facility] Start: 11-01-2022 End: 11-01-2022 Patient encounter procedure Alysha Ruff APRN.DIRECTOR RECORDS MANAGEMENT Work Phone: [facility] Comment on above: Encounter for IUD in sertion (Primary Dx); Routine screening for STI (sexually transmitted infection) Start: 10-23-2022 End: 10-23-2022 Patient encounter procedure Tricia Rangel MD Work Phone: [place] [facility] Comment on above: care and examination (Primary Dx); examination or test, unconfirmed Start: 10-22-2022 Telephone encounter [facility] Provider [facility] Comment on above: Returning Patient's [...] Migraine Start: 09-04-2022 End: 09-04-2022 ambulatory Nst Mathews Work Phone: [place] [facility] Comment on above: Nst (Non Stress Test ) Start: 09-04-2022 End: 09-04-2022 Patient encounter procedure Nst Color Control Supervisor [facility] Mathews Work Phone: [employer] [facility] Comment on above: 37 weeks gestation o f (Primary Dx); Preexisting hypertension complicating , antepartum; Diet controlled gestational diabetes mellitus (GDM) in second trimester; 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ng , antepartum, unspecified trimester; Group B Streptococcus carrier, antepartum Start: 08-30-2022 End: 08-30-2022 Patient encounter procedure Flora Browning MD Work Phone: [place] [facility] Comment on above: Preexisting hyperten ling complicating , antepartum (Primary Dx); 36 weeks gestation of ; Gestational diabetes mellitus, class A1; 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ng , antepartum, unspecified trimester Start: 08-30-2022 End: 08-30-2022 Patient encounter procedure Ultrasound Color Control Supervisor [facility] Onavo Work Phone: [facility] Comment on above: AMA (advanced matern al age) multigravida 35+, third trimester; Obesity complicating , third trimester Start: 08-23-2022 End: 08-23-2022 ambulatory Nst Mathews Work Phone: [place] [facility] Comment on above: Nst (Non Stress Test ) Start: 08-23-2022 End: 08-23-2022 Patient encounter procedure Nst Color Control Supervisor [facility] Mathews Work Phone: [facility] [employer] [facility] Comment on above: Preexisting hyperten ling complicating , antepartum (Primary Dx); 35 weeks gestation of ; Gestational diabetes mellitus, class A1 Start: 08-22-2022 Refill Honey Surac e PA-C Work Phone: [place] [facility] Comment on above: Refill Request Start: 08-16-2022 Refill Honey Surac e PA-C Work Phone: [facility] Comment on above: Refill Request Start: 08-15-2022 End: 08-15-2022 ambulatory Nst Mathews Work Phone: [place] [facility] Comment on above: Nst (Non Stress Test ) Start: 08-15-2022 End: 08-15-2022 Patient encounter procedure Nst Color Control [facility] Work [facility]: [facility] Comment on above: Preexisting hyperten ling complicating , antepartum (Primary Dx); 34 weeks gestation of ; Gestational diabetes mellitus, class A1 Start: 08-06-2022 End: 08-06-2022 ambulatory Nst Mathews Work Phone: [place] [facility] Comment on above: Nst (Non Stress Test ) Start: 08-06-2022 End: 08-06-2022 Patient encounter procedure Nst Color Control Supervisor [facility] Onavo Work Phone: [employer] [employer] Comment on above: AMA (advanced matern al age) multigravida 35+, third trimester (Primary Dx); Obesity complicating , third trimester; Gestational diabetes mellitus, class A1; Preexisting hypertension complicating , antepartum; 33 weeks gestation of ; Non-stress test reactive Start: 08-02-2022 End: 08-02-2022 ambulatory Nst Mathews Work Phone: [facility] Comment on above: Nst (Non Stress Test ) Start: 08-02-2022 End: 08-02-2022 Patient encounter procedure Nst Color Control Supervisor [facility] Onavo Work Phone: [facility] [employer] Comment on above: Preexisting hyperten ling complicating , antepartum (Primary Dx); 32 weeks gestation of ; GDM (gestational diabetes mellitus), class A1 Start: 07-31-2022 Refill Honey Surac e PA-C Work Phone: [facility] Comment on above: Refill Request Start: 07-19-2022 End: 07-19-2022 Patient encounter procedure Honey Affinegyace PA-C Work Phone: [facility] Comment on above: Gestational diabetes mellitus, class A1 (Primary Dx); Obesity complicating , third trimester; AMA (advanced maternal age) multigravida 35+, third trimester; Preexisting hypertension complicating , antepartum; 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ng , antepartum, unspecified trimester; 30 weeks gestation of Gestational diabetes mellitus, class A1 Start: 07-18-2022 Refill Honey Surac e PA-C Work Phone: [facility] Comment on above: Refill Request Start: 07-05-2022 End: 07-05-2022 Patient encounter procedure Honey Surace PA-C Work Phone: [facility] Comment on above: Gestational diabetes mellitus, class A1 (Primary Dx); 28 weeks gestation of ; Need for oeowwyduur-oluxpos-pazrpuqjc (Tdap) vaccine; Obesity complicating , third trimester; Constipation, unspecified constipation type; 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ng , antepartum, unspecified trimester; AMA (advanced maternal age) multigravida 35+, third trimester; Preexisting hypertension complicating , antepartum Start: 07-05-2022 End: 07-05-[address] Work Phone: [facility] Comment on above: Diet controlled gest ational diabetes mellitus (GDM) in second trimester (Primary Dx) GDM (gestational mitch betes mellitus), class A1; Diet controlled gestational diabetes mellitus (GDM) in second trimester Start: 07-05-2022 End: 07-05-2022 Telemedicine consultation with patient Nurse Diabetes [facility] Start: 06-28-2022 Refill Honey Surac e PA-C Work Phone: [facility] Comment on above: Refill Request Start: 06-28-2022 Telephone encounter Honey S urace PA-C Work Phone: [facility] Comment on above: Results Start: 06-25-2022 Telephone encounter Honey Yelitza urace PA-C Work Phone: [facility] Comment on above: Results Start: 06-21-2022 End: 06-21-2022 Patient encounter procedure Honey Surace PA-C Work Phone: [facility] Comment on above: AMA (advanced matern al age) multigravida 35+, second trimester (Primary Dx); 26 weeks gestation of ; 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ng , antepartum, unspecified trimester; Obesity complicating , first trimester; Preexisting hypertension complicating , antepartum; History of drug use Start: 06-19-2022 Refill Honey Surac e PA-C Work Phone: [facility] Comment on above: Refill Request Start: 06-10-2022 Refill Ольга montanez APRN.CNP Work Phone: [facility] Comment on above: Refill Request Start: 05-19-2022 Refill Honey Surac e PA-C Work Phone: [facility] Comment on above: Refill Request Start: 05-19-2022 Refill Honey Surac e PA-C Work Phone: [facility] Comment on above: Refill Request Start: 05-10-2022 End: 05-10-2022 Patient encounter procedure Honey Surace PA-C Work Phone: [facility] Comment on above: Preexisting hyperten ling complicating , antepartum (Primary Dx); AMA (advanced maternal age) multigravida 35+, second trimester; Obesity complicating , second trimester; Headache in , second trimester; 20 weeks gestation of Start: 05-07-2022 End: 05-07-2022 Patient encounter procedure Us Rm2 Color Control Supervisor [employer] Work Phone: [facility] Comment on above: Obesity complicating , second trimester (Primary Dx); Encounter for anatomic survey; 20 weeks gestation of Start: 05-06-2022 End: 05-06-2022 Patient encounter procedure Shaun Carlin MD Work Phone: Family Medicine Comment on above: PUD (peptic ulcer di sease) (Primary Dx); GERD without esophagitis; Preexisting hypertension complicating , antepartum Start: 05-02-2022 Refill Ольга montanez APRN.DIRECTOR RECORDS MANAGEMENT Work Phone: [facility] Comment on above: Refill Request Start: 04-28-2022 ambulatory Shaun Sanchez Work Phone: Family Medicine Comment on above: Ulcers Start: 04-24-2022 Refill Honey Florecita e PA-C Work Phone: [facility] Comment on above: Refill [...] encounter procedure Honey Surreynold PA-C Work Phone: [facility] Comment on above: Multigravida [...] Start: 03-22-2022 Refill Ольга Leslie Connellyutt s RECORDS MANAGEMENT ANALYST.DIRECTOR RECORDS MANAGEMENT Work Phone: [facility] Comment on above: Refill Request Start: 03-11-2022 Refill Flora Jaffe MD Work Phone: [facility] Comment on above: Refill Request Start: 02-20-2022 ambulatory Ольга L Klutt s RECORDS MANAGEMENT ANALYST.DIRECTOR RECORDS MANAGEMENT Work Phone: [facility] Comment on above: Medication Start: 02-14-2022 End: 02-14-2022 Patient encounter procedure Flora Browning MD Work Phone: [place] [facility] Comment on above: Amenorrhea, [...] 15 minutes Shaun Carlin Work Phone: [facility] Work Phone: Start: 01-21-2022 Telephone encounter Rolan grigsby DO Work Phone: [facility] Comment on above: Orders; Results Start: 01-18-2022 End: 01-18-2022 Patient encounter procedure Rolan Dexter DO Work Phone: [facility] Comment on above: Women's annual routi ne gynecological examination (Primary Dx); Routine cervical smear; Secondary amenorrhea Start: 01-08-2022 End: 01-08-2022 Patient encounter procedure Shaun Carlin MD Work Phone: [facility] Comment on above: Hypertension, essent ial (Primary Dx); Bronchitis Start: 01-07-2022 Refill Shaun Sanchez Work Phone: [facility] Comment on above: Refill Request Start: 06-18-2021 End: 06-19-2021 Emergency department patient visit Rolan Allen MD Work Phone: [facility] Comment on above: Acute bronchitis, un specified organism (Primary Dx); Acute serous otitis media of left ear, recurrence not specified; Acute diffuse otitis externa of left ear Start: 12-23-2020 End: 12-24-2020 Emergency department patient visit Kenny Miles Work Phone: [facility] Comment on above: Less than 8 weeks [place] station of (Primary Dx); Epigastric pain Start: 08-16-2020 Patient encounter procedure Desiree Casarez [facility] Work Phone: Start: 08-05-2019 End: 08-05-2019 Emergency department patient visit [facility] Start: 08-02-2019 Patient encounter procedure Desiree Casarez [facility] Work Phone: Start: 07-09-2019 End: 07-09-2019 Subsequent [...] Kacie Short Work Phone: [facility] [place] [facility] Comment on above: Arrived Start: 07-02-2019 End: 07-02-2019 Subsequent hospital visit by physician Kacie Short Work Phone: [employer] [place] [facility] Comment on above: Arrived Start: 06-30-2019 End: 06-30-2019 Subsequent hospital visit by physician Kacie Short Work Phone: [employer] [place] [facility] Comment on above: Arrived Start: 06-28-2019 End: 06-28-2019 Subsequent hospital visit by physician Kacie Short Work Phone: [employer] [place] [facility] Comment on above: Arrived Start: 06-25-2019 Subsequent hospital visit by physician Kacie Short Work Phone: [employer] [facility] Start: 06-23-2019 Subsequent hospital visit by physician Kacie Short Work Phone: [employer] [place] [facility] Start: 06-21-2019 End: 06-21-2019 Subsequent hospital visit by physician Kacie Short Work Phone: [employer] [place] [facility] Comment on above: Arrived Start: 06-18-2019 End: 06-18-2019 Subsequent hospital visit by physician Kacie Short Work Phone: [employer] [place] [facility] Comment on above: Arrived Start: 06-16-2019 End: 06-16-2019 Subsequent hospital visit by physician Kacie Short Work Phone: [employer] [place] [facility] Comment on above: Arrived Start: 06-14-2019 End: 06-14-2019 Subsequent hospital visit by physician Kacie Short Work Phone: [employer] [place] [facility] Comment on above: Arrived Start: 06-11-2019 Subsequent hospital visit by physician Kacie Short Work Phone: [employer] [facility] Start: 06-09-2019 Subsequent hospital visit by physician Kacie Short Work Phone: [facility] [place] [facility] Start: 06-07-2019 End: 06-07-2019 Subsequent hospital visit by physician Kacie Short Work Phone: [facility] [place] [facility] Comment on above: Arrived Start: 06-04-2019 Subsequent hospital visit by physician Kacie Short Work Phone: [facility] [place] [facility] Start: 06-02-2019 Subsequent hospital visit by physician Mihai REINOSO ADDICTION [facility] Start: 05-31-2019 Patient encounter procedure Christina [facility] [place] Start: 05-31-2019 Subsequent hospital visit by physician Mihai REINOSO ADDICTION [facility] Start: 05-29-2019 Patient encounter procedure Christina [facility] [place] Start: 05-29-2019 End: 05-29-2019 Emergency department patient visit Mio Park Work Phone: [facility] Emergency Dept Comment on above: Altered mental statu s, unspecified altered mental status type (Primary Dx); Substance abuse (HCC); Depression, unspecified depression type Start: 05-28-2019 End: 05-29-2019 Emergency department patient visit Ese Bliss Work Phone: [facility] Emergency Dept Comment on above: Polysubstance abuse (HCC) (Primary Dx); Altered mental status, unspecified altered mental status type Start: 05-28-2019 Subsequent hospital visit by physician Kacie Short Work Phone: [facility] Start: 05-26-2019 End: 05-26-2019 Subsequent hospital visit by physician Kacie Short Work Phone: [employer] [place] [facility] Comment on above: Arrived Start: 05-24-2019 End: 05-24-2019 Subsequent hospital visit by physician Kacie Short Work Phone: [employer] [place] [facility] Comment on above: Arrived Start: 05-21-2019 End: 05-21-2019 Subsequent hospital visit by physician Kacie Short Work Phone: [facility] [employer] Dept Comment on above: Arrived Start: 05-20-2019 End: 05-20-2019 Subsequent hospital visit by physician Kacie Short Work Phone: [employer] Comment on above: Arrived Start: 05-14-2019 End: 05-14-2019 Subsequent hospital visit by physician Kacie Short Work Phone: [employer] [facility] Start: 05-10-2019 Subsequent hospital visit by physician Kacie Short Work Phone: [employer] [facility] Start: 05-07-2019 End: 05-07-2019 Subsequent hospital visit by physician Kacie Short Work Phone: [employer] Comment on above: Arrived Start: 04-30-2019 Subsequent hospital visit by physician Kacie Short Work Phone: [employer] Dept Start: 04-29-2019 Telephone encounter Mihai CADEB ADDICTION OP Comment on above: Scheduling Start: 04-28-2019 Subsequent hospital visit by physician Mihai REINOSO ADDICTION OP Start: 04-26-2019 Subsequent hospital visit by physician Kacie Short Work Phone: [employer] Dept Start: 04-23-2019 End: 04-23-2019 Subsequent hospital visit by physician Kacie Short Work Phone: [employer] Dept Comment on above: Arrived Start: 04-21-2019 Subsequent hospital visit by physician Mihai REINOSO ADDICTION OP Comment on above: Canceled (Other) Start: 03-08-2019 End: 03-08-2019 Evaluation and management of inpatient UNKNOWN AA UNKNOWN PCP [facility] Start: 07-10-2018 End: 12-08-2019 Subsequent hospital visit by physician Zi Leonard Work Phone: [facility] Dept Start: 06-06-2017 End: 06-07-2017 Emergency department patient visit [facility] Start: 04-19-2017 End: 04-19-2017 Emergency department patient visit [facility] Procedures Date Procedure Procedure Detail Performing Clinician Start: 02-21-2025 Computed tomography of abdomen and pelvis with intravenous contrast Dr. Floar Prieto DO Work Phone: Start: 02-21-2025 Urnls [...] Adult depression scr eening assessment Hui Valdes RECORDS MANAGEMENT ANALYST.DIRECTOR RECORDS MANAGEMENT Work Phone: Start: 07-01-2023 INFLUENZA VACCINE, A GE 6 MO - 64 YR, QUADRIVALENT (AFLURIA, FLULAVAL, FLUZONE) Shaun Carlin MD Work Phone: Start: 01-17-2023 Urine test visual color cmprsn meths Flora SANTORO Work Phone: Start: 11-01-2022 Insertion intrauteri ne device iud Alysha Ruff RECORDS MANAGEMENT ANALYST.DIRECTOR RECORDS MANAGEMENT Work Phone: Start: 08-30-2022 Urnls dip stick/tabl et rgnt auto w/o microscopy Flora Browning MD Work Phone: Start: 08-30-2022 Us preg uterus after 1st trimest 09/15 gestation Yael Mahmood RECORDS MANAGEMENT ANALYST.CNM Work Phone: Start: 08-23-2022 Urnls dip stick/tabl [...] Start: 07-05-2019 Drug screening buprenorphine [employer]ester [employer] Work Phone: Start: 07-05-2019 Drug tst prsmv [...] of 2) Shingles Vaccine (1 of 2) [place] Start: 07-05-2032 Urine microalbumin profile [facility] Start: 06-29-2031 Urine microalbumin profile DTAP,TDAP,TD (3 - Td or Tdap) [facility] Start: 07-07-2028 DTaP/Tdap/Td vaccine (2 - Td or Tdap) DTaP/Tdap/Td vaccine (2 - Td or Tdap) [facility] Work Phone: Start: 07-07-2028 DTaP/Tdap/Td vaccine (2 - Td) DTaP/Tdap/Td vaccine (2 - Td) [place] Start: 10-18-2027 Screening for malign ant neoplasm of cervix Cervical Cancer Screening [facility] Start: 12-31-2025 Annual PCP Team Studio Model melyssa Disease Visit Annual PCP Team Chronic Disease Visit [facility] Start: 12-31-2025 BP Controlled (<130/80) BP Controlle d (<130/80) [facility] Start: 10-18-2025 BP Controlled (<130/80) BP Controlle d (<130/80) [facility] Start: 10-18-2025 End: 10-18-2025 Patient encounter procedure 10/18/2025 12:50 PM EST Appointment Mammogram [address] [place] [id number] Mammogram Start: 10-18-2025 End: 10-18-2025 Patient encounter procedure 10/18/2025 10:45 AM EST Office Visit OB/Gynecology [address] [place] [address] Temitope Bear APRN.CN [address] [place] [address] Annual OB/Gynecology Comment on above: Annual Start: 07-08-2025 End: 07-08-2025 Patient encounter procedure 07/08/2025 11:20 AM EDT Office Visit Family Medicine [facility] [address] [place] [address] PodHui li APRN.DIRECTOR RECORDS MANAGEMENT [address] [place] [address] Physical [facility] Comment on above: Physical Start: 07-05-2025 Annual PCP Team Studio Model melyssa Disease Visit Annual PCP Team Chronic Disease Visit [facility] Start: 07-05-2025 Anxiety Screening Anxiety Screening [facility] Start: 07-05-2025 Depression Screening Depression Scre [facility] Start: 02-21-2025 [facility] Start: 02-14-2025 Patient discharge [facility] Start: 02-14-2025 Anes lwr abd ventral & incisional hernia repair ANESTH REPAIR OF HERNIA [facility] Start: 02-14-2025 RPR AA HRN 1ST 3-10 NCR/STRN RPR AA HRN 1ST 3-10 NCR/STRN [facility] Start: 02-14-2025 End: 02-14-2025 Patient encounter procedure 02/14/2025 9:00 AM EDT Office Visit OB/Gynecology [address] [place] [address] Frances Baxter MD [address] [place] [address] REMOVE INTRAUTERINE DEVICE OB/Gynecology Comment on above: REMOVE INTRAUTERINE DEVICE Start: 01-18-2025 HPV TESTING HPV TESTING [facility] Start: 01-18-2025 PAP TESTING PAP TESTING [facility] Start: 01-18-2025 Screening for malign ant neoplasm of cervix [facility] Start: 01-15-2025 [facility] Start: 01-03-2025 End: 01-03-2025 Patient encounter procedure 01/03/2025 1:20 PM EDT Office Visit Family Medicine [facility]i [address] [place] [address] Hui Valdes APRN.DIRECTOR RECORDS MANAGEMENT [address] [place] [address] 6 month follow up [facility] Romario Odom Comment on above: 6 month follow up Start: 12-31-2024 End: 12-31-2024 Patient encounter procedure 12/31/2024 11:40 AM EDT Office Visit [facility] Romario Odom [address] [place] [address] Hui Valdes APRN.DIRECTOR RECORDS MANAGEMENT [address] [place] [address] 6 month follow up [facility] Romario Odom Comment on above: 6 month follow up Start: 11-07-2024 BP Controlled (<130/80) BP Controlle d (<130/80) [facility] Start: 10-18-2024 End: 01-17-2025 Hepatitis B virus surface Ag [Presence] in Serum [facility] Comment on above: Expected: 10/18/2024 , Expires: 01/17/2025 Start: 10-18-2024 End: 01-17-2025 Hepatitis C virus Ab [Presence] in Serum [facility] Comment on above: Expected: 10/18/2024 , Expires: 01/17/2025 Start: 10-18-2024 End: 01-17-2025 HIV 1+2 Ab [Presence] in Serum or Plasma by Immunoassay [facility] Comment on above: Expected: 10/18/2024 , Expires: 01/17/2025 Start: 10-18-2024 End: 01-17-2025 SYPHILIS TREPONEMAL W/REFLEX [facility] Comment on above: Expected: 10/18/2024 , Expires: 01/17/2025 Start: 10-15-2024 End: 10-15-2024 Patient encounter procedure 10/15/2024 7:30 AM EST Office Visit OB/Gynecology [address] [place] [address] Sonya Darden APRN.DIRECTOR RECORDS MANAGEMENT [address] [place] [address] Encounter for screening for human papillomavirus (HPV) [Z11.51] OB/Gynecology Comment on above: Encounter for screen ing for human papillomavirus (HPV) [Z11.51] Start: 10-03-2024 Annual PCP Team Studio Model melyssa Disease Visit Annual PCP Team Chronic Disease Visit [facility] Start: 10-03-2024 BP Controlled (<130/80) BP Controlle d (<130/80) [facility] Start: 09-27-2024 End: 09-27-2024 Patient encounter procedure 09/27/2024 11:00 AM EST Office Visit Neurology [address] [place] [address] Coral Olsen DO [address] [place], [place] [id number] [facility] Comment on above: Migraine Start: 08-30-2024 End: 08-30-2024 Patient encounter procedure 08/30/2024 10:30 AM EST Office Visit OB/Gynecology [address] [place] [address] Sonya Darden, JAZ.DIRECTOR RECORDS MANAGEMENT [address] [place] [address] Encounter for screening for human papillomavirus (HPV) [Z11.51] OB/Gynecology Comment on above: Encounter for screen ing for human papillomavirus (HPV) [Z11.51] Start: 08-24-2024 End: 08-24-2024 Patient encounter procedure 08/24/2024 1:30 PM EST Office Visit OB/Gynecology [address] [place] [address] Sonya Darden, JAZ.DIRECTOR RECORDS MANAGEMENT [address] [place] [address] Encounter for screening for human papillomavirus (HPV) [Z11.51] OB/Gynecology Comment on above: Encounter for screen ing for human papillomavirus (HPV) [Z11.51] Start: 07-05-2024 End: 10-04-2024 CBC W Auto Differential panel - Blood COMPLETE BLOOD COUNT AND DIFFERENTIAL Lab Routine Encounter for medical examination to establish care Expected: 07/05/2024, Expires: 10/04/2024 [facility] Work Phone: Comment on above: Expected: 07/05/2024 , Expires: 10/04/2024 Start: 07-05-2024 End: 10-04-2024 Comprehensive metabolic 2000 panel - Serum or Plasma COMPREHENSIVE METABOLIC PANEL Lab Routine Encounter for medical examination to establish care Expected: 07/05/2024, Expires: 10/04/2024 [facility] Comment on above: Expected: 07/05/2024 , Expires: 10/04/2024 Start: 07-05-2024 End: 10-04-2024 Lipid 1996 panel - Serum or Plasma LIPID PANEL BASIC Lab Routine Encounter for medical examination to establish care Expected: 07/05/2024, Expires: 10/04/2024 [facility] Comment on above: Expected: 07/05/2024 , Expires: 10/04/2024 Start: 07-01-2024 Annual PCP Team Studio Model melyssa Disease Visit Annual PCP Team Chronic Disease Visit [facility] Start: 07-01-2024 Covid-19 Vaccine () Covid-19 Vaccine () [facility] Comment on above: Postponed from 05/16 (Declined at this time) Start: 05-16-2024 Covid-19 Vaccine () Covid-19 Vaccine () [facility] Start: 03-26-2024 BP CONTROLLED (<130/80) BP CONTROLLE D (<130/80) [facility] Start: 01-02-2024 BP CONTROLLED (<130/80) BP CONTROLLE D (<130/80) [facility] Start: 12-11-2023 ANNUAL PCP TEAM CHANNEL EXECUTIVE MELYSSA DISEASE VISIT ANNUAL PCP TEAM CHRONIC DISEASE VISIT [facility] Start: 10-08-2023 ANNUAL PCP TEAM CHANNEL EXECUTIVE MELYSSA DISEASE VISIT ANNUAL PCP TEAM CHRONIC DISEASE VISIT [facility] Start: 09-15-2023 Behavioral Health Screening Behavioral Health Screening [facility] Start: 09-04-2023 BP CONTROLLED (<130/80) BP CONTROLLE D (<130/80) [facility] Start: 08-15-2023 BP CONTROLLED (<130/80) BP CONTROLLE D (<130/80) [facility] Start: 08-06-2023 BP CONTROLLED (<130/80) BP CONTROLLE D (<130/80) [facility] Start: 08-02-2023 BP CONTROLLED (<130/80) BP CONTROLLE D (<130/80) [facility] Start: 07-19-2023 BP CONTROLLED (<130/80) BP CONTROLLE D (<130/80) [facility] Start: 06-25-2023 ANNUAL PCP TEAM CHANNEL EXECUTIVE MELYSSA DISEASE VISIT ANNUAL PCP TEAM CHRONIC DISEASE VISIT [facility] Start: 06-25-2023 BP CONTROLLED (<130/80) BP CONTROLLE D (<130/80) [facility] Start: 06-25-2023 HEPATITIS B (1 of 3 - 3-dose series) HEPATITIS B (1 of 3 - 3-dose series) [facility] Comment on above: Postponed from 09/06 (Declined at this time) Start: 06-21-2023 BP CONTROLLED (<130/80) BP CONTROLLE D (<130/80) [facility] Start: 05-16-2023 Influenza vaccination INFLUENZA (#1) [facility] Start: 05-10-2023 BP CONTROLLED (<130/80) BP CONTROLLE D (<130/80) [facility] Start: 05-06-2023 ANNUAL PCP TEAM CHANNEL EXECUTIVE MELYSSA DISEASE VISIT ANNUAL PCP TEAM CHRONIC DISEASE VISIT [facility] Start: 05-06-2023 BP CONTROLLED (<130/80) BP CONTROLLE D (<130/80) [facility] Start: 04-05-2023 COVID-19 VACCINE (2 - Moderna series) COVID-19 VACCINE (2 - Moderna series) [facility] Comment on above: Postponed from 07/30 (Declined at this time) Postponed from 08/27 (Declined at this time) Start: 03-05-2023 BP CONTROLLED (<130/80) BP CONTROLLE D (<130/80) [facility] Start: 02-08-2023 BP CONTROLLED (<130/80) BP CONTROLLE D (<130/80) [facility] Start: 01-17-2023 End: 01-02-2024 EGD DIAGNOSTIC [facility] Work Phone: Comment on above: Expected: 01/17/2023 , Expires: 01/02/2024 1 Occurrences starti ng 01/17/2023 until 01/17/2023 Start: 01-08-2023 ANNUAL PCP TEAM CHANNEL EXECUTIVE MELYSSA DISEASE VISIT ANNUAL PCP TEAM CHRONIC DISEASE VISIT [facility] Start: 11-20-2022 End: 01-20-2023 Choriogonadotropin.beta subunit [Units/volume] in Serum or Plasma HCG QUANTITATIVE Lab Routine examination or test, unconfirmed Expected: 11/20/2022 (Approximate), Expires: 01/20/2023 [facility] Work Phone: Comment on above: Expected: 11/20/2022 (Approximate), Expires: 01/20/2023 Start: 11-19-2022 Adult depression screening assessment DEPRESSION SCREENING [facility] Start: 10-04-2022 HPV TESTING HPV TESTING [facility] Start: 10-04-2022 PAP TESTING PAP TESTING [facility] Start: 09-15-2022 DEPRESSION ASSESSMENT DEPRESSION ASS ESSMENT [facility] Start: 09-09-2022 INDUCTION L&D INDUCTION L&D Procedures Routine Preexisting hypertension complicating , antepartum Expected: 09/09/2022 [facility] Work Phone: Comment on above: Expected: 09/09/2022 Start: 08-06-2022 End: 08-06-2023 OBSTETRIC ULTRASOUND WHI OBSTETRIC ULTRASOUND WHI Anc Imaging Routine AMA (advanced maternal age) multigravida 35+, third trimester Obesity complicating , third trimester Expected: 08/06/2022, Expires: 08/06/2023 [facility] Work Phone: Comment on above: Expected: 08/06/2022 , Expires: 08/06/2023 Start: 06-21-2022 End: 06-21-2023 CBC panel - Blood by Automated count [facility] Work Phone: Comment on above: Expected: 06/21/2022 , Expires: 06/21/2023 Start: 06-21-2022 End: 06-21-2023 GEST GLUC SCREEN, 1-HR, 50 GM, NON-FASTING [facility] Work Phone: Comment on above: Expected: 06/21/2022 , Expires: 06/21/2023 Start: 06-21-2022 End: 06-21-2023 SYPHILIS TOTAL W/REFLEX [facility] Work Phone: Comment on above: Expected: 06/21/2022 , Expires: 06/21/2023 Start: 06-21-2022 End: 08-21-2022 TOX SCREEN ROUT UR TOX SCREEN ROUT UR Lab Routine 26 weeks gestation of History of drug use Expected: 06/21/2022, Expires: 08/21/2022 [facility] Work Phone: Comment on above: Expected: 06/21/2022 , Expires: 08/21/2022 Start: 05-16-2022 Influenza vaccination INFLUENZA (#1) [facility] Start: 02-14-2022 End: 04-16-2022 Acute hepatitis 2000 panel - Serum [facility] Work Phone: Comment on above: Expected: 02/14/2022 , Expires: 04/16/2022 Start: 02-14-2022 End: 04-16-2022 HIV 1+2 Ab [Presence] in Serum or Plasma by Immunoassay [facility] Work Phone: Comment on above: Expected: 02/14/2022 , Expires: 04/16/2022 Start: 02-14-2022 End: 04-16-2022 RUBELLA IGG AB [facility] Work Phone: Comment on above: Expected: 02/14/2022 , Expires: 04/16/2022 Start: 02-14-2022 End: 04-16-2022 SYPHILIS TOTAL W/REFLEX [facility] Work Phone: Comment on above: Expected: 02/14/2022 , Expires: 04/16/2022 Start: 01-18-2022 End: 03-20-2022 Choriogonadotropin.beta subunit [Units/volume] in Serum or Plasma HCG QUANTITATIVE Lab Routine Secondary amenorrhea Expected: 01/18/2022, Expires: 03/20/2022 [facility] Work Phone: Comment on above: Expected: 01/18/2022 , Expires: 03/20/2022 Start: 01-18-2022 End: 03-20-2022 TYPE AND SCREEN TYPE AND SCREEN Blood Bank Routine Secondary amenorrhea Expected: 01/18/2022, Expires: 03/20/2022 [facility] Work Phone: Comment on above: Expected: 01/18/2022 , Expires: 03/20/2022 Start: 12-12-2021 ANNUAL PCP TEAM CHANNEL EXECUTIVE MELYSSA DISEASE VISIT ANNUAL PCP TEAM CHRONIC DISEASE VISIT [facility] Start: 09-15-2021 DEPRESSION ASSESSMENT DEPRESSION ASS ESSMENT [facility] Start: 07-30-2021 COVID-19 VACCINE (2 - Moderna 3-dose series) COVID-19 VACCINE (2 - Moderna 3-dose series) [facility] Start: 07-30-2021 COVID-19 VACCINE (2 - Moderna series) COVID-19 VACCINE (2 - Moderna series) [facility] Start: 05-16-2021 Influenza vaccination Flu vaccine (# 1) [facility] Work Phone: Start: 06-01-2020 A1C test (Diabetic o r Prediabetic) A1C test (Diabetic or Prediabetic) [place] Start: 06-01-2020 HbA1c (Bld) [Mass fraction] A1C test (Diabetic or Prediabetic) [facility] Work Phone: Start: 06-01-2020 Hemoglobin A1c measurement A1C test (Diabetic or Prediabetic) [facility] Work Phone: Start: 07-09-2019 End: 07-09-2019 Appointment [...] 05-16-2019 Influenza vaccination Flu vaccine (# 1) [place] Start: 05-14-2019 End: 05-14-2019 Appointment 05/14/2019 [...] and Gynecology Luci Edwards APRN - [id number], [place], [address] [place] [address] [phone] [facility] [employer]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 Start: 05-05-2019 End: 05-05-2019 Appointment 05/05/2019 Appointment [...] Cervical cancer screen Cervical canc er screen [place], [place] Start: 2006 Screening for malign ant neoplasm of cervix [facility] Work Phone: Start: 2003 BP CONTROLLED (<130/80) BP CONTROLLE D (<130/80) [facility] Start: 2001 COVID-19 Vaccine (1) COVID-19 Vaccin e (1) [employer] Work Phone: Start: 1998 Varicella Vaccine (1 of 2 - 13+ 2-dose series) Varicella Vaccine (1 of 2 - 13+ 2-dose series) [place] Start: 1997 COVID-19 Vaccine (1) COVID-19 Vaccin e (1) [employer] Work Phone: Start: 1991 Pneumococcal 0-64 ye ars Vaccine (1 of 1 - PPSV23) Pneumococcal 0-64 years Vaccine (1 of 1 - PPSV23) [place] Start: 1986 Varicella Vaccine (1 of 2 - 2-dose childhood series) Varicella Vaccine (1 of 2 - 2-dose childhood series) [place] Start: 1985 HEPATITIS B (1 of 3 - 3-dose series) HEPATITIS B (1 of 3 - 3-dose series) [facility] BACTERIAL VAGINOSIS NAAT BACTERI AL VAGINOSIS NAAT Lab Routine Screening for STDs (sexually transmitted diseases) 10/18/2024 10:44 AM EST [facility] End: 06-07-2019 Buprenorphine Buprenorphine Lab Routine Once for 1 Occurrences starting 06/07/2019 until 06/07/2019 [place] Comment on above: Once for 1 Occurrenc es starting 06/07/2019 until 06/07/2019 Buprenorphine Buprenorphine La b Routine 06/07/2019 2:46 PM EDT [facility] [place] ALEX/TRICHOMONAS NAAT ALEX /TRICHOMONAS NAAT Lab Routine Screening for STDs (sexually transmitted diseases) 10/18/2024 10:44 AM [facility] Chlamydia trachomatis+Neisseria gonorrhoeae DNA [Presence] in Unspecified specimen by CASSIDY with probe detection GC/CHLAMYDIA DNA DET Lab Routine Women's annual routine gynecological examination 01/18/2022 2:05 PM EDT [facility] Work Phone: Chlamydia trachomatis+Neisseria gonorrhoeae DNA [Presence] in Unspecified specimen by CASSIDY with probe detection GONORRHEA/CHLAMYDIA NAAT Lab Routine Screening for STDs (sexually transmitted diseases) 10/18/2024 10:44 AM [facility] Chlamydia trachomatis+Neisseria gonorrhoeae DNA [Presence] in Urine by CASSIDY with probe detection GC/CHLAMYDIA AMPLIF, URINE Microbiology Routine Routine screening for STI (sexually transmitted infection) 11/01/2022 2:01 PM [facility] Work Phone: End: 12-23-2020 Culture, Urine Culture, Urine Microbiology STAT One Time for 1 Occurrences starting 12/23/2020 until 12/23/2020 [employer] Work Phone: Comment on above: One Time for 1 Occur rences starting 12/23/2020 until 12/23/2020 Culture, Urine Culture, Urine Microbiology STAT 12/23/2020 11:11 PM EDT [facility] Work Phone: End: 11-17-2025 DBT Breast - bilateral screening CHARIS SCREENING W JORGE Radiology Routine Encounter for screening mammogram for breast cancer Dense breast tissue 1 Occurrences starting 10/18/2024 until 11/17/2025 [facility] Work Phone: Comment on above: 1 Occurrences starti ng 10/18/2024 until 11/17/2025 EKG 12 Lead [facility] [employer] End: 06-07-2019 Fentanyl, Urine Fentanyl, Urine Lab Routine Once for 1 Occurrences starting 06/07/2019 until 06/07/2019 [facility] Comment on above: Once for 1 Occurrenc es starting 06/07/2019 until 06/07/2019 Fentanyl, Urine Fentanyl, Urine Lab Routine 06/07/2019 2:46 PM EDT [facility] [facility] End: 08-21-2022 nonstress test NON-STRESS TEST Procedures Routine Gestational diabetes mellitus, class A1 Obesity complicating , third trimester Preexisting hypertension complicating , antepartum Once per week for 10 Occurrences starting 07/19/2022 until 08/21/2022 [facility] Work Phone: Comment on above: Once per week for 10 Occurrences starting 07/19/2022 until 08/21/2022 nonstress test NON-S TRESS TEST Procedures Routine AMA (advanced maternal age) multigravida 35+, third trimester Obesity complicating , third trimester Gestational diabetes mellitus, class A1 33 weeks gestation of Non-stress test reactive Ordered: 08/06/2022 [facility] Work Phone: Comment on above: Ordered: 08/06/2022 FUNGAL SMEAR FUNGAL SMEAR Microbiology Routine Vaginal discharge Ordered: 04/05/2022 [facility] Work Phone: Comment on above: Ordered: 04/05/2022 Hemoglobin A1c/Hemoglobin.total in Blood HEMOGLOBIN A1C (POC) Lab Routine History of gestational diabetes Ordered: 12/10/2022 [facility] Work Phone: Comment on above: Ordered: 12/10/2022 End: 06-07-2019 [facility] Lab Routine Once for 1 Occurrences starting 06/07/2019 until 06/07/2019 [facility] Comment on above: Once for 1 Occurrenc es starting 06/07/2019 until 06/07/2019 [facility] Routine 06/07/2019 2:46 PM EDT [facility] OB UA DIP B/O (AG) OB UA DIP B/O (AG) Lab Routine 15 weeks gestation of Ordered: 04/02/2022 [facility] Work Phone: Comment on above: Ordered: 04/02/2022 OB UA DIP B/O (AG) OB UA DIP B/O (AG) Lab Routine 28 weeks gestation of Ordered: 07/03/2022 [facility] Work Phone: Comment on above: Ordered: 07/03/2022 OB UA DIP B/O (AG) OB UA DIP B/O (AG) Lab Routine 32 weeks gestation of Ordered: 07/31/2022 [facility] Work Phone: Comment on above: Ordered: 07/31/2022 OB UA DIP B/O (AG) OB UA DIP B/O (AG) Lab Routine 34 weeks gestation of Ordered: 08/14/2022 [facility] Work Phone: Comment on above: Ordered: 08/14/2022 OB UA DIP B/O (AG) OB UA DIP B/O (AG) Lab Routine 35 weeks gestation of Ordered: 08/22/2022 [facility] Work Phone: Comment on above: Ordered: 08/22/2022 OB UA DIP B/O (AG) OB UA DIP B/O (AG) Lab Routine 36 weeks gestation of Ordered: 08/29/2022 [facility] Work Phone: Comment on above: Ordered: 08/29/2022 OB UA DIP B/O (AG) OB UA DIP B/O (AG) Lab Routine 37 weeks gestation of Ordered: 09/03/2022 [facility] Work Phone: Comment on above: Ordered: 09/03/2022 OBSTETRIC ULTRASOUND WHI OBSTETR IC ULTRASOUND WHI Anc Imaging Routine care of multigravida, antepartum Ordered: 01/21/2022 [facility] Work Phone: Comment on above: Ordered: 01/21/2022 OBSTETRIC ULTRASOUND WHI OBSTETR IC ULTRASOUND WHI Anc Imaging Routine 15 weeks gestation of Ordered: 04/05/2022 [facility] Work Phone: Comment on above: Ordered: 04/05/2022 OBSTETRIC ULTRASOUND WHI OBSTETR IC ULTRASOUND WHI Anc Imaging Routine Obesity complicating , second trimester Ordered: 05/07/2022 [facility] Work Phone: Comment on above: Ordered: 05/07/2022 End: 09-13-2022 OBSTETRIC ULTRASOUND WHI OBSTETRIC ULTRASOUND WHI Anc Imaging Routine Gestational diabetes mellitus, class A1 Once per month for 4 Occurrences starting 07/05/2022 until 09/13/2022 [facility] Work Phone: Comment on above: Once per month for 4 Occurrences starting 07/05/2022 until 09/13/2022 PAP FLUID CERVICAL SCREENING PAP FLUID CERVICAL SCREENING Lab Routine Women's annual routine gynecological examination Routine cervical smear Ordered: 01/18/2022 [facility] Work Phone: Comment on above: Ordered: 01/18/2022 PAP TEST PAP TEST Lab Lindsay doll Encounter for gynecological examination (general) (routine) with abnormal findings Screening for cervical cancer Encounter for screening for human papillomavirus (HPV) 10/18/2024 10:44 AM EST [facility] Patient Education [facility] Work Phone: Patient referral [facility] Work Phone: Removal intrauterine device iud REMOVE INTRAUTERINE DEVICE Procedures Routine Encounter for IUD removal Ordered: 12/28/2024 [facility] Work Phone: Comment on above: Ordered: 12/28/2024 SURGICAL PATHOLOGY [facility] Work Phone: Comment on above: Release Upon Orderin g for 1 Occurrences starting 01/17/2023, 1 completed UA DIP, URINE (POC) UA DIP, URIN E (POC) Lab Routine 26 weeks gestation of Ordered: 06/21/2022 [facility] Work Phone: Comment on above: Ordered: 06/21/2022 [facility] Immunizations Immunization Date Immunization Notes Care Provider Citlali boyd 07-05-2024 influenza, seasonal, injectable Hui Ortizkattyashira RECORDS MANAGEMENT ANALYST.DIRECTOR RECORDS MANAGEMENT Work Phone: [facility] 07-01-2023 influenza, injectabl e, quadrivalent, contains preservative Shaun Carlin MD Work Phone: [facility] 07-05-2022 tetanus toxoid, reduced diphtheria toxoid, and acellular pertussis vaccine, adsorbed [facility] 06-25-2022 influenza, injectabl e, quadrivalent, contains preservative Honey Angel PA-C Work Phone: [facility] 06-29-2021 influenza, injectabl e, quadrivalent, contains preservative Shaun Carlin MD Work Phone: [facility] 06-29-2021 tetanus toxoid, reduced diphtheria toxoid, and acellular pertussis vaccine, adsorbed Shaun Carlin MD Work Phone: [facility] 05-03-2020 influenza virus vaccine, unspecified formulation Shaun Carlin MD Work Phone: [facility] 05-03-2020 influenza, injectabl e, quadrivalent, preservative free Shaun Carlin MD Work Phone: [facility] 10-04-2019 influenza, injectabl e, quadrivalent, contains preservative Shaun Carlin MD Work Phone: [facility] 07-07-2018 influenza, injectabl e, quadrivalent, contains preservative Shaun Carlin MD Work Phone: [facility] 07-07-2018 tetanus toxoid, reduced diphtheria toxoid, and acellular pertussis vaccine, adsorbed Shaun Carlin MD Work Phone: [facility] 08-17-2009 novel [id number], preservative-free, injectable Shaun Carlin MD Work Phone: [facility] 04-27-1998 measles, mumps and rubella virus vaccine Shaun Carlin MD Work Phone: [facility] NEGATED: Highlighted row has not occurred!06-04-2019 influenza, injectable, quadrivalent, preservative free Christina Rangel [place], [place] NEGATED: Highlighted row has not occurred!06-01-2019 influenza, injectable, quadrivalent, preservative free Christina Rangel [place], [place] Payers Date Payer Category Payer Self-pay 2022 Medicaid [id number] 2018 Medicaid [employer] [facility] [id number] 2018-Present [phone] [address] [place] [address] Medicaid [id number] 2018 Medicaid [id number] 2014 Unknown xxxxxxxxxxx [id number] 1985 Unknown [id number] 1985 Unknown [id number] 1985 Unknown [id number] 1959 Unknown [id number] Unknown [employer] Unknown [id number] Unknown [id number] Unknown [id number] Unknown [id number] Social History Date Type Detail Facility Start: 06-27-2018 End: 02-21-2025 Tobacco smoking status NHIS Current every day smoker [facility] Start: 09-15-2000 End: 09-15-2020 [facility] Start: 06-27-2018 End: 07-05-2024 Cigarettes smoked current (pack per day) - Reported [facility] Start: 06-27-2018 End: 07-05-2024 Alcohol intake No [facility] Start: 1985 [facility] Start: 05-31-2019 End: 06-19-2021 Alcohol intake Current [facility]dr[facility] (finding[facility] Start: 12-23-2020 End: 07-05-2024 Tobacco smoking status NHIS Former smoker [facility] Work Phone: Start: 12-23-2020 End: 07-05-2024 Tobacco use and exposure Never used [facility] Work Phone: Start: 11-11-2020 [facility] Work Phone: Start: 12-15-2021 End: 06-28-2022 Exposure to SARS-CoV-2 (event) Not sure [facility] Work Phone: Start: 12-12-2020 End: 05-06-2022 Tobacco use and exposure Former smokeless tobacco user [facility] Work Phone: End: 10-16-2020 History of tobacco use User of smokeless tobacco [facility] Work Phone: Start: 11-26-2021 End: 12-31-2024 Alcohol intake Ex-drinker (finding) [facility] Start: 11-19-2021 End: 10-01-2022 History SDOH Alcohol Frequency 1 [facility] Start: 11-19-2021 History SDOH Alcohol Std Drinks 98 [facility] Start: 07-07-2018 History SDOH Alcohol Comment rarely [facility] Start: 11-19-2021 End: 10-01-2022 History SDOH Social Connections Phone 5 [facility] Start: 11-19-2021 End: 10-01-2022 History SDOH Social Connections [employer] 3 [facility] Start: 11-19-2021 History SDOH Physica l Activity MPS 6 [facility] Start: 11-19-2021 End: 10-01-2022 History SDOH Financial 4 [facility] Start: 11-19-2021 End: 10-01-2022 History SDOH Transport Med 2 [facility] Start: 1985 Sex Assigned At Female C [facility] Start: 04-05-2022 End: 04-15-2022 Exposure to SARS-CoV-2 (event) Yes [facility] Start: 09-15-2000 End: 09-15-2020 History of tobacco use Current smoker [facility] Work Phone: Start: 10-01-2022 History SDOH Alcohol Std Drinks 0 [facility] Are you now , , , , never or living with a partner? [facility] How often to you hav e a drink containing alcohol? Never [facility] How many standard drinks containing alcohol do you have on a typical day? Patient does not drink [facility] How hard is it for y ou to pay for the very basics like food, housing, medical care, and heating Not very hard [facility] Do you feel stress - tense, restless, nervous, or anxious, or unable to sleep at night because your mind is troubled all the time - these days [OSQ] Not at all [facility] (I/We) worried wheth er (my/our) food would run out before (I/we) got money to buy more. Never true [facility] In the past 12 month s, was there a time when you were not able to pay the mortgage or rent on time? No [facility] Start: 05-15-2020 Gender identity Identifies as female gender (finding) [facility] Start: 05-15-2020 Sexual orientation Heterosexual (rosario cardenas) [facility] Do you feel stress - tense, restless, nervous, or anxious, or unable to sleep at night because your mind is troubled all the time - these days [OSQ] Only a little [facility] NEGATED: Highlighted row - - [facility] Work Phone: NEGATED: Highlighted row Not [facility] Medical Equipment Procedure Code Equipment Code Equipment Original Text Equipment Identifier Dates Repair, hernia, ventral, with mesh insertion MESH,VENTLEX ST MED 6.4CM FDA Start: 02-14-2025 Start: 06-28-2022 End: 09-01-2022 Comment on above: Use as instructed 1 Strip four times d aily. Use as instructed Goals Date Patient Goal Desired Activity /State Functional Status Date Assessment Result Facility 02-14-2025 Functional status [facility] Work Phone: 12-31-2024 Total score [AUDIT-C] 0 01/01/20 12:33 PM EDT User, [email or web address] [facility] 12-31-2024 Within the last year , have you been humiliated or emotionally abused in other ways by your partner or ex-partner? No 12/31/2024 12:33 PM EDT User, Johniehart No [facility] 12-31-2024 Within the last year , have you been afraid of your partner or ex-partner? No 12/31/2024 12:33 PM EDT User, Mychart No [facility] 12-31-2024 Within the last year , have you been raped or forced to have any kind of sexual activity by your partner or ex-partner? No 12/31/2024 12:33 PM EDT User, Mychart No [facility] 12-31-2024 Within the last year , have you been kicked, hit, slapped, or otherwise physically hurt by your partner or ex-partner? No 12/31/2024 12:33 PM EDT User, Mychart No [facility] 12-31-2024 How often to you hav e a drink containing alcohol? Never 12/31/2024 12:33 PM EDT User, Mychart Never [facility] 12-31-2024 Functional status Patient does n ot drink 12/31/2024 12:33 PM EDT User, [email or web address] Patient does not drink [facility] 12-31-2024 How often do you hav e 6 or more drinks on 1 occasion? Never 12/31/2024 12:33 PM EDT User, Mychart Never [facility] 12-24-2024 Total score [AUDIT-C] 0 12/25/19 12:37 PM EDT User, Mychart [facility] 12-24-2024 Within the last year , have you been humiliated or emotionally abused in other ways by your partner or ex-partner? No 12/24/2024 12:37 PM EDT UserKrystian No [facility] 12-24-2024 Within the last year , have you been afraid of your partner or ex-partner? No 12/24/2024 12:37 PM EDT User, Krystian No [facility] 12-24-2024 Within the last year , have you been raped or forced to have any kind of sexual activity by your partner or ex-partner? No 12/24/2024 12:37 PM EDT UserKrystian No [facility] 12-24-2024 Within the last year , have you been kicked, hit, slapped, or otherwise physically hurt by your partner or ex-partner? No 12/24/2024 12:37 PM EDT UserKrystian No [facility] 12-24-2024 How often to you hav e a drink containing alcohol? Never 12/24/2024 12:37 PM EDT User, Krystian Never [facility] 12-24-2024 Functional status Patient does n ot drink 12/24/2024 12:37 PM EDT User, Krystian Patient does not drink [facility] 12-24-2024 How often do you hav e 6 or more drinks on 1 occasion? Never 12/24/2024 12:37 PM EDT User, Krystian Never [facility] 09-14-2022 Are you blind, or do you have serious difficulty seeing, even when wearing glasses No 09/14/2022 8:45 AM Sonya Espitia, HARRIET No [facility] 09-14-2022 Do you have serious difficulty walking or climbing stairs No 09/14/2022 8:45 AM Sonya Espitia, HARRIET No [facility] 09-14-2022 Do you have difficul ty dressing or bathing No 09/14/2022 8:45 AM Sonya Espitia, HARRIET No [facility] 09-14-2022 Because of a physica l, mental, or emotional condition, do you have difficulty doing errands alone such as visiting a physician's office or shopping No 09/14/2022 8:45 AM Sonya Espitia RN No [facility] 03-28-2022 Are you deaf, or do you have serious difficulty hearing No 03/28/2022 1:25 PM EDT Carlene Francis, HARRIET No [facility] NEGATED: Highlighted row Functional performance Functional status health issues are not documented [facility] Work Phone: Mental Status Date Assessment Result Facility 02-14-2025 Cognitive function Voice/Name [facility] Work Phone: 09-14-2022 Because of a physical, mental, or emotional condition, do you have serious difficulty concentrating, remembering, or making decisions No 09/14/2022 8:45 AM Sonya Espitia RN No [facility] NEGATED: Highlighted row Cognitive function [Interpretation] Cognitive status health issues are not documented [facility] Work Phone: Clinical Notes 10-30-2021 to 02-21-2025 Note Date & Type Note Facility 02-21-2025 Discharge summary [facility] 02-21-2025 Radiology Diagnostic study note [facility] Imaging Services [address] [place], [place] [address] Abdomen/Pelvis W IV Cont ONLY MR#: [id number] Acct: [id number] Name: SIA OLIVERA Rep #: [id number] : 1985 F 39 From: Serjio Curry MD PCP: Hui Valdes, 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-C Status: REG E R Study:Abdomen/Pelvis W IV Cont ONLY Date of E xam: 02/21/25 Exam# [id number] Ordering Dr: Yvon Do DO PROCEDURE: ABDOMEN/PELVIS [...] examination is unchanged. Multiple gallstones. Reading Location: [place] [address] CC: KOSTA Valdes; Dr. Yvon Becker DO ~ Barrel Rifler: Signed [facility] 02-21-2025 Discharge summary Note Date/Time February 21, 2025 3:58pm [facility] Medical Records Department [address] [place] [address] Emergency Department Summary 02/21/25 MR#: [id number] Acct: [id number] Name: SIA OLIVERA Rep #:[id number] : [...] intact Psych: Cooperative, appropriate mood and affect [facility] Medical History Wears glasses Wears dentures Depression [...] % (Auto) 59.2 Lymph % (Auto) 29.7 [place] % (Auto) 8.0 Eos % (Auto) 2.0 [...] Clarity Clear Urine pH 7.0 Ur Specific [place] 1.010 Urine Protein Negative Urine Glucose (UA) [...] examination is unchanged. Multiple gallstones. Reading Location: [place] [address] Discharge Plan Triage Chief Complaint: Abd Pain [...] if symptoms change or worsen. Print Language: Liberian Disposition Disposition: Home, Self Care What to do if you have Problems For any increased pain, shortness of breath, bleeding, nausea or vomiting, chestpain, or any unexpected problems, contact your Primary Care Provider. Call [facility] ([phone]) or report to the closest Emergency Room. Call 911 if necessary. 02/21/25 1558 <Electronically signed by Yvon Becker DO> Cosigner Signature (if applicable): CC: KOSTA Valdes ~ Signed [facility] Work Phone: 1(160) 989-814306-06-2025 Hospital Discharge instructions Additional Instructions Keep your appointment on Friday with general surgery. Return back to the ED if symptoms change or worsen.[facility] Work Phone: 1(470) 467-564306-02-2025 Consult note [facility] Medical Records Department [address] [place] [address] Anesthesia Postop Eval II 02/14/25 1637 MR#: [id number] Acct: [id number] Name: SIA OLIVERA Rep #:[id number] : 1985 39 From: Guille Shin MD PCP: Hui Podlogar, 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-C Status:REG S DC Y Race: C Location: [facility] Anesthesia Postop Eval I Sum Postop Eval Completion status Anesthesia document: Postop Eval 1 completed: Yes Anesthesia Postop Eval I Summary Anesthesia Postop Eval I Summary: Anesthesia Postop Eval I: Assessment Summary Airway patent 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 Spontaneous unlabored 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 respirations Mental status Awake,Calm 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 nausea No 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 Vomiting No 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 Anesthesia Postop Eval I: Fluid Summary Crystalloid volume administer 1,000 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 (ml) Colloids volume administered ( ml) Blood Product volume administered (ml) Total IV fluid infused 1,000 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 Anesthesia Postop Eval I: Summary Notes Anesthesia Complication No 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 Anesthesia Complication Comment: Post-operative progress note Anesthesia: Postop Eval II Evaluation Mental status: Awake Pain Level: 0 nausea: No Vomiting: No Complications Anesthesia Complication: No 02/14/25 1637 > Date _ Guille Shin MD Cosigner Signature: Date CC: ~ Signed [facility]06-02-2025 Consult note Author Royce Gomez [facility] Note Date/Time February 14, 2025 3:55p [facility] Medical Records Department [address] [place] [address] Anesthesia Postop Eval I 02/14/25 1554 MR#: [id number] Acct: [id number] Name: SIA OLIVERA Rep #:[id number] : 1985 39 From: Royce SORENSEN PCP: KOSTA Gomez Status:REG S DC Y Race: C Location: [place] [address] Anesthesia: Postop Eval I Current Vital Signs [...] document: Postop Eval 1 completed: Yes 02/14/25 8301 <Electronically signed by Royce Gomez CRNA> Date _ Royce Gomez CRNA Cosigner Signature: Date CC: ~ Signed [facility] Work Phone: 1(156) 266-633206-02-2025 Discharge summary Author Desean Rodriguez [facility] Note Date/Time February 14, 2025 3:46p [facility] Medical Records Department [address] [place] [address] Instructions for Home/Discharge Instructions 02/14/25 1536 MR#: [id number] Acct: [id number] Name: SIA OLIVERA Rep #:[id number] : [...] Provider: Hui Valdes NP Instructions Print Language: Liberian Discharge Orders/Prescriptions Prescriptions: New oxycodone-acetaminophen [Percocet] 5-325 [...] Referrals / Follow Up: Hui Valdes NP, 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-C [Primary Care Provider] - Disposition Disposition (needs filled in before D/C Order can be placed): Home, Self Care 02/14/25 1546<Electronically signed by Desean Rodriguez MD>Desean Rodriguez MD CC: 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-C Hui Ortizlogar ~ Signed [facility] Work Phone: 1(258) 218-323706-02-2025 History and physical note Author Desean Rodriguez [facility] Note Date/Time February 14, 2025 2:17p m [facility] Medical Records Department [address] [place] [address] History & Physical Exam 02/14/25 1414 MR#: [id number] Acct: [id number] Name: SIA OLIVERA Rep #:[id number] : 1985 39 From: Desean Rodriguez MD PCP: OLY GomezC Status:REG S DC Location: [facility] HPI - General General Date of Admission: 02/14/25 Date of Service: 02/14/25 Chief Complaint: Ventral hernia HPI Narrative SIA OLIVERA, is a 39 F who presents for elective repair of a ventral hernia just above the umbilicus. [facility] Medical History Wears glasses Wears dentures Depression [...] begin momentarily Charges/Coding Visit Charges Inpatient E&M: 57699 Init Hosp L2 02/14/25 1417 <Electronically signed by Desean Rodriguez MD> Cosigner Signature (if applicable): CC: 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-C Hui Valdes; Dr. Desean Rodriguez MD~ Signed [facility] Work Phone: 1(678) 927-156506-02-2025 Procedure note [facility] Medical Records Department [address] [place] [address] Operative Report 02/14/25 1546 MR#: [id number] Acct: [id number] Name: SIA OLIVERA Rep #:[id number] : 1985 39 From: Desean Rodriguez MD PCP: Hui Valdes, OLYC Status:REG S [place] Location: [place] [address] Problems Associated Problem List Diagnoses (1) Ventral hernia: Procedures Digestive 40xxx-49xxx: 87790 RPR AA HRN 11-22 NCR/STRN Operative Report (Standard) Operative Information Date of Procedure: 02/14/25 Pre-Operative Diagnosis: Ventral hernia -chronically incarcerated Post-Operative Diagnosis: Same Surgery/Procedure Performed: Open ventral hernia repair with mesh quality assurance supervisor final: Yes Manager Safe: Kristine Larose Tasks completed by first leveler: Closing and Retracting Additional seed laboratory assistant?: No Type of Anesthesia: General and [...] KOSTA Valdes; Dr. Desean Rodriguez MD~ Signed [facility]06-02-2025 Consult note [facility] Medical Records Department [address] [place] [address] Anesthesia Postop Eval I 02/14/251553 MR#: [id number] Acct: [id number] Name: SIA OLIVERA Rep #:[id number] : 1985 39 From: Royce SORENSEN PCP: KOSTA Gomez Status:REG S DC Y Race: C Location: [place] [address] Anesthesia: Postop Eval I Current Vital Signs [...] document: Postop Eval 1 completed: Yes 02/14/251554 FOREIGN SERVICE TEACHER> Date _ Royce Gomez CRNA Cosigner Signature: Date CC: ~ Signed [facility]06-02-2025 Discharge summary [facility] Medical Records Department [address] [place] [address] Instructions for Home/Discharge Instructions 02/14/25 1536 MR#: [id number] Acct: [id number] Name: SIA OLIVERA Rep #:[id number] : [...] Provider: Hui Valdes NP Instructions Print Language: Liberian Discharge Orders/Prescriptions Prescriptions: New oxycodone-acetaminophen [Percocet] 5-325 [...] Referrals / Follow Up: Hui Valdes NP, 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-C [Primary Care Provider] - Disposition Disposition (needs filled in before D/C Order can be placed): Home, Self Care 02/14/25 1546Steagle Rodriguez MD CC: KOSTA Valdes ~ Signed [facility]06-02-2025 Consult note Author Guille Shin [facility] Note Date/Time February 14, 2025 1:45p m [facility] Medical Records Department [address] [facility] [address] Pre-Anesthesia Evaluation 02/14/25 1340 MR#: [id number] Acct: [id number] Name: SIA OLIVERA Rep #:[id number] : 1985 39 From: Guille Shin MD PCP: KOSTA Gomez Status:REG S DC Y Race: C Location: [place] [address] ASA Classification* ASA Classification ASA Classification: 2 [...] WITH MESH Anesthesia History Anesthesia History - stringed instrument repairer: Anesthesia History - stringed instrument repairer Hx Hospitalization No 02/04/25 14:43 Any Problems [...] take am of surgery PONV PONV - stringed instrument repairer: PONV - stringed instrument repairer Female Yes 02/04/25 14:43 HX of Motion [...] 02/14/25 13:25 Respiratory Assessment Respiratory Assessment - stringed instrument repairer: Respiratory Tract Infection Hx - stringed instrument repairer Hx Respiratory Tract Infection No 02/04/25 14:43 STOP Sleep Apnea STOP Sleep Apnea - stringed instrument repairer: STOP Sleep Apnea - stringed instrument repairer Hx Hypertension No 02/04/25 14:43 Hx Sleep [...] Tobacco Use History Tobacco Use History - stringed instrument repairer: Tobacco Use History - stringed instrument repairer Tobacco Use Smoking Status Current every day smoker 02/04/25 14:43 Hx Tobacco Use Yes 02/04/25 14:43 Years Smoking Packs Smoked per Day Smoking Cessation Date was within the last 15 years Hx Smoking Cessation Date Hx Smoking Cessation Counseling Hematologic Medial History Hematologic Hx - stringed instrument repairer: Hematologic Medical Hx - ostrich farmer Hx of Blood Transfusion No 02/04/25 14:43 [...] confused, unrespo /Reproduction History /Reproductive History - stringed instrument repairer: /Reproductive Hx- stringed instrument repairer Hx Now No 02/04/25 14:43 Gestational Age [...] MD Cosigner Signature: Date CC: ~ Signed [facility] Work Phone: 1(443) 723-558806-02-2025 History and physical note [facility] Medical Records Department [address] [place] [address] History & Physical Exam 02/14/25 1414 MR#: [id number] Acct: [id number] Name: SIA OLIVERA Rep #:[id number] : 1985 39 From: Desean Rodriguez MD PCP: KOSTA Gomez Status:REG S [place] Location: [place] [address] HPI - General General Date of Admission: 02/14/25 Date of Service: 02/14/25 Chief Complaint: Ventral hernia HPI Narrative SIA OLIVERA, is a 39 F who presents for elective repair of a ventral hernia just above the umbilicus. [facility] Medical History Wears glasses Wears dentures Depression [...] begin momentarily Charges/Coding Visit Charges Inpatient E&M: 96656 Init Hosp L2 02/14/25 1417 Cosigner Signature (if applicable): CC: 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JingC Hui Valdes; Dr. Desean Rodriguez MD~ Signed [facility]06-02-2025 [facility] Medical Records Department [address] [place] [address] History Physical Exam 02/14/25 1414 MR#: [id number] Acct: [id number] Name: SIA OLIVERA Rep #: [id number] : 1985 39 From: Desean Rodriguez MD PCP: Hui Valdes, KOSTA Status:REG [facility] Location: [place] [address] HPI - General General Date of Admission: 02/14/25 Date of Service: 02/14/25 Chief Complaint: Ventral hernia HPI Narrative SIA OLIVERA, is a 39 F who presents for elective repair of a ventral hernia just above the umbilicus. [facility] Medical History Wears glasses Wears dentures Depression [...] momentarily Charges/Coding Visit Charges Inpatient E M: 46455 Init Hosp L2 02/14/25 1417 Cosigner Signature (if applicable): CC: 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-C Hui Valdes; [facility] Consult note [facility] Medical Records Department [address] [place] [address] Pre-Anesthesia Evaluation 02/14/25 1340 MR#: [id number] Acct: [id number] Name: SIA OLIVERA Rep #:[id number] : 1985 39 From: Guille Shin MD PCP: Hui Valdes, 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-C Status:REG S DC Y Race: C Location: [facility] ASA Classification* ASA Classification ASA Classification: [...] WITH MESH Anesthesia History Anesthesia History - stringed instrument repairer: Anesthesia History - stringed instrument repairer Hx Hospitalization No 02/04/25 14:43 Any Problems [...] take am of surgery PONV PONV - stringed instrument repairer: PONV - stringed instrument repairer Female Yes 02/04/25 14:43 HX of Motion [...] 02/14/25 13:25 Respiratory Assessment Respiratory Assessment - stringed instrument repairer: Respiratory Tract Infection Hx - stringed instrument repairer Hx Respiratory Tract Infection No 02/04/25 14:43 STOP Sleep Apnea STOP Sleep Apnea - stringed instrument repairer: STOP Sleep Apnea - stringed instrument repairer Hx Hypertension No 02/04/25 14:43 Hx Sleep [...] Tobacco Use History Tobacco Use History - stringed instrument repairer: Tobacco Use History - stringed instrument repairer Tobacco Use Smoking Status Current every day smoker 02/04/25 14:43 Hx Tobacco Use Yes 02/04/25 14:43 Years Smoking Packs Smoked per Day Smoking Cessation Date was within the last 15 years Hx Smoking Cessation Date Hx Smoking Cessation Counseling Hematologic Medial History Hematologic Hx - stringed instrument repairer: Hematologic Medical Hx - ostrich farmer Hx of Blood Transfusion No 02/04/25 14:43 [...] confused, unrespo /Reproduction History /Reproductive History - stringed instrument repairer: /Reproductive Hx- stringed instrument repairer Hx Now No 02/04/25 14:43 Gestational Age [...] MD Cosigner Signature: Date CC: ~ Signed [facility]05-21-2025 Evaluation note* Diagnosis Onset Date Resolution Status Admit Date Ventral hernia acute February 02, 2025 12:47pm Ventral hernia acute February 14, 2025 12:52pm [facility] Work Phone: [phone] 727-895905-21-2025 [facility] [address] [place] [address] OFFICE VISIT Date of Service: 02/02/25 MR#: [id number] Acct: [id number] Name: SIA OLIVERA Rep #: [id number] : 1985 Provider: Dr. Griffin Rodriguez MD Age/Sex: 39/F Location: [facility] Status: Signed Intake Vital Signs 01/15/25 [...] General: cooperative, healthy appearing and comfortable [facility] Head: normal to inspection, normocephalic and [...] Cosigner Signature: Date (if applicable) CC: ~ [facility]05-21-2025 Progress note Author Desean Rodriguez [facility] Note Date/Time February 02, 2025 1:24p m [facility] [place] [address] OFFICE VISIT Date of Service: 02/02/25 MR#: [id number] Acct: [id number] Name: SIA OLIVERA Rep #: [id number] : 1985 Provider: Dr. Griffin Rodriguez MD Age/Sex: 39/F Location: [facility] Status: Signed Intake Vital Signs 01/15/25 [...] General: cooperative, healthy appearing and comfortable [facility] Head: normal to inspection, normocephalic and [...] hernia K43.9 02/02/25 1324 <Electronically signed by Desena medellin MD> Date _ Desean Villafuerteignjosh Signature: Date (if applicable) CC: ~ [facility] Work Phone: 1(323) 381-259104-18-2025 NoteHNO ID: [id number] Author: HUI VALDES APRN.[facility] Service: ? Author Type: Nurse Practitioner [...] Abs Lymph 1.00 - 4.00 k/uL 2.90 Prowers% % 9.4 Abs Prowers <0.87 k/uL (more content not included)...[facility] 12-31-2024 History of Present illness Narrative* PodlogHui ac APRN.DIRECTOR RECORDS MANAGEMENT - 12/31/2024 12:58 PM EDT 12/29/2024 Patient [...] remission, most recent episode mixed ([facility]) 10/04/2019 Depression, major, recurrent, moderate ([facility]) 07/07/2018 Diet controlled gestational diabetes mellitus (GDM) in second trimester ([facility]) 07/05/2022 Drug use disorder remission since 06/2019; methamphetamines, marijuana Gastritis due to Helicobacter species 11/26/2021 Genital warts 1-29-09 Never seen again GERD without esophagitis 02/08/2022 Grand multiparity 09/11/2022 - history 4 prior SVDs, this will be delivery #5 - admission CBC 11.9 Group B 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 Sonya Montelongo RN [facility]04-16-[facility] Miscellaneous Notes* Telephone Encounter - Sonya [...] you. Frances Parnell RN documented in this encounterGrant Hospital04-15-2025 Telephone encounter Note * Telephone Encounter - Temitope Bear APRN.CNM - 12/28/2024 4:59 PM EDT Order signed. Temitope Bear APRN.CNM [facility]04-15-[facility] Telephone encounter Note* Telephone Encounter - Frances Parnell RN - 12/28/2024 4:42 PM EDT Received the following message from PSS: Patient is requesting to have their IUD removed. Please put in a order for this so that it can be scheduled. Order pending. Please file and then route to scheduling. Thank you. Frances Parnell RN [facility]02-03-2025 NoteHNO ID: [id number] Author: TEMITOPE BEAR APRN.CNM Service: ? Author Type: Director Medical Economics Type: Progress Notes Filed: 10/18/2024 13:09 Note [...] L5 SAB0 IAB1 Ectopic0 Multiple0 Live Births5 Alterations Supervisor History LMP: 10/11/2024 (Approximate), IUD Age at Menarche: 9 Age at First : 21 Age at Menopause: Alterations Supervisor History Comments: Sexual Activity: Yes; Male Contraception: [...] SECTION HX EGD DIAGNOSTIC 01/17/2023 INDUCED BY [facility] 2008 FAMILY HISTORY Problem Relation Age of [...] discussed with the Patient or Patient's Authorized Education Reporter. As applicable, any other physician, advance practice provider, medical student, or other health professional student that will be observing or involved in the sensitive examination for educational or training purposes was discussed with the Patient or Authorized Education Reporter. The Patient or Authorized Education Reporter has agreed to proceed with the sensitive [...] BREAST: soft, non-tender, sy (more content not included)...[facility]02-03-2025 History of Present illness Narrative* Temitope Bear [...] L5 SAB0 IAB1 Ectopic0 Multiple0 Live Births5 Alterations Supervisor History LMP: 10/11/2024 (Approximate), IUD Age at Menarche: 9 Age at First : 21 Age at Menopause: Alterations Supervisor History Comments: Sexual Activity: Yes; Male Contraception: [...] discussed with the Patient or Patient's Authorized Education Reporter. As applicable, any other physician, advance practice provider, medical student, or other health professional student that will be observing or involved in the sensitive examination for educational or training purposes was discussed with the Patient or Authorized Education Reporter. The Patient or Authorized Education Reporter has agreed to proceed with the sensitive [...] external genitalia normal, normal Bartholin's glands, urethra, Paramount's glands, no vulvar lesions, no cervical lesions, [...] needed Temitope Bear APRN.CNM documented in this encounterGrant Hospital01-29-2025 Telephone encounter Note * Telephone Encounter - Sharon Warren RN - 10/13/2024 7:47 PM EST Please see other MyChart request with med refills in it. [facility]01-29[facility] Miscellaneous Notes* Telephone Encounter - Sharon Warren RN - 10/13/2024 7:47 PM EST Please see other MyChart request with med refills in it. documented in this encounterGrant Hospital01-29-2025 Telephone encounter Note * Telephone Encounter - Sharon Warren RN - 10/13/2024 7:41 PM EST Pt sends in MyChart request for med refills. Pt has a [facility] pharmacy in [place] as preferred pharmacy. Pt lives in [place] and last scripts went to [facility]. Called and confirmed with pt that was an error and she would like prescriptions to go to [facility]. The last office visit in the department: [...] Warren RN October 13, 2024 7:41 PM [facility]01-29-[facility] Miscellaneous Notes* Telephone Encounter - Sharon Warren RN - 10/13/2024 7:41 PM EST Pt sends in MyChart request for med refills. Pt has a [facility] pharmacy in [place] as preferred pharmacy. Pt lives in [place] and last scripts went to [facility]. Called and confirmed with pt that was an error and she would like prescriptions to go to [facility]. The last office visit in the department: [...] 13, 2024 7:41 PM documented in this encounterGrant Hospital11-29-2024 Telephone encounter Note * Telephone Encounter - Rebecca Rhodes - 08/13/2024 3:44 PM EST POPULATION HEALTH NAVIGATION OUTREACH Action/ 1st attempt, call placed to pt for PT consult for OAB (overactive bladder) [N32.81]. Order is date07/05/24. Pt declined to [facility] at this time. Pt plans to go [...] Rebecca Rhodes August 13, 2024 3:44 PM [facility]11-29[facility] Miscellaneous Notes* Telephone Encounter - Rebecca Rhodes - 08/13/2024 3:44 PM EST POPULATION HEALTH NAVIGATION OUTREACH Action/ 1st attempt, call placed to pt for PT consult for OAB (overactive bladder) [N32.81]. Order is 07/05/24. Pt declined to [facility] at this time. Pt plans to go [...] 13, 2024 3:44 PM documented in this encounterGrant Hospital11-11-2024 Telephone encounter Note * Telephone Encounter [...] White[place] MA July 26, 2024 7:32 PM [facility] Miscellaneous Notes* Telephone Encounter - Lourdes [...] 26, 2024 7:32 PM documented in this encounterGrant Hospital10-21-2024 NoteHNO ID: [id number] Author: HUI VALDES APRN.DIRECTOR RECORDS MANAGEMENT Service: ? Author Type: Nurse Practitioner Type: [...] to pelvic floor therapy but moved from [place] which is were she was going to [...] nausea, vomiting, or diarrhea : See HPI MILL MANAGER: Negative for abnormal vaginal bleeding, abnormal vaginal [...] with normal S1 and (more content not included)...[facility]10-21-2024 History of Present illness Narrative* Podlogar, JAZ Ames.DIRECTOR RECORDS MANAGEMENT - 07/05/2024 1:02 PM EDT 07/05/2024 Patient [...] to pelvic floor therapy but moved from [place] which is were she was going to [...] nausea, vomiting, or diarrhea : See HPI MILL MANAGER: Negative for abnormal vaginal bleeding, abnormal vaginal [...] Level: 4 - Moderate documented in this encounterGrant Hospital04-17-2024 Miscellaneous Notes* Telephone Encounter - Michelle Osborn LPN - 12/31/2023 7:45 AM EDT Sent to covering provider documented in this encounterGrant Hospital02-23-2024 NoteHNO ID: [id number] Author: JOANNA WILKES MD Service: ? Author Type: Physician Type: Progress Notes Filed: 12/14/2023 10:49 Note Text: 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 Author [...] SECTION HX EGD DIAGNOSTIC 01/17/2023 INDUCED BY [facility] 2008 FAMILY HISTORY: FAMILY HISTORY Problem Relation [...] rarely Drug use: N (more content not included)...[facility]07-12-2023 History of Present illness Narrative* Esme [...] 26, 2023 TIME: 2:13 PM PAGER/CONTACT #: [phone] documented in this encounterGrant Hospital05-05-2023 History of Past illness Narrative* Problem [...] of this encounter (statuses as of 07/01/2023) [facility] History of Past illness Narrative* Problem [...] of this encounter (statuses as of 12/31/2023) [facility] Surgical operation note* Operative Report - Esme Grace MD - 01/17/2023 8:35 AM EDT OPERATIVE/PROCEDURE REPORT LOG ID: [id number] Surgery/Procedure Date: Incision/Procedure Start Time: 8:42 AM Incision Close/Procedure End Time: 8:45 AM Surgeon(s)/Proceduralist(s) and Chemical Strength Tester(s): Surgeon(s) and Role: * Esme Grace MD [...] 8:51 AM PAGER/CONTACT #: documented in this encounterGrant Hospital05-05-2023 History and physical note * Julio JAZ Dial.DIRECTOR RECORDS MANAGEMENT - 01/17/2023 8:30 AM EDT . HISTORY [...] cream by RECTAL route twice daily. 01/10/2023 Sdkdfkqu-Ce-Cmc-Fe-FA tab Take 1 tablet by mouth once [...] requiring medication, no history of angina, CHF, AL, cardiac surgery or stents. Denies rest pain, gangrene or revascularization/amputation for PVD. No history of cardiovascular symptoms or problems. No history of angina, CHF, AL, cardiac surgery or stents. Denies chest pain [...] which included preparing to see the patient, [id number] patient care, completing clinical documentation, obtaining and/or reviewing separately obtained history, performing a medically appropriate examination, and counseling and educating the patient/family/caregiver. SIGNATURE: Julio Dial APRN.CNP PATIENT NAME: Sia Olivera DATE: January 17, 2023 TIME: 7:22 AM PAGER/CONTACT #: documented in this encounterGrant Hospital04-19-2023 NoteHNO ID: [id number] Author: Esme Grace MD Service: ? Author [...] Procedure Laterality Date SECTION HX INDUCED BY [facility] 2008 FAMILY HISTORY: FAMILY HISTORY Problem Relation [...] Take 1 capsule by mouth once daily. Zxstmzgu-Ld-Dmu-Fe-FA tab Take 1 tablet by mouth once daily. (Patient not taking: Reported on 01/01/2023) No current facility-administered medications for this visit. ALLERGIES: ALLERGIES Allergen Reactions Amoxicillin Unknown WAS TOLD BY MOM COMPLETE REVIEW OF SYSTEMS: Review of Systems Constitutional: Negative for chi (more content not included)...[facility]04-19-2023 Miscellaneous Notes* Telephone Encounter - Ese Contreras MA - 01/01/2023 3:55 PM EDT EGD scheduled for 01/17/2023 at 8:30 am. Prep/instructions given to patient at checkout. Ese Contreras MA documented in this encounterGrant Hospital04-19-2023 Miscellaneous Notes* Addendum Note - Ese Contreras MA - 01/01/2023 3:54 PM EDTAddended by: ESE CONTRERAS on: 01/01/2023 03:54 PM Modules accepted: Orders documented in this encounterGrant Hospital04-19-2023 History of Present illness Narrative* Esme [...] Take 1 capsule by mouth once daily. Wfphxnzy-Mm-Djb-Fe-FA tab Take 1 tablet by mouth once [...] 01, 2023 TIME: 2:25 PM PAGER/CONTACT #: [phone] documented in this encounterGrant Hospital03-28-2023 History of Present illness Narrative* Shaun [...] Take 1 capsule by mouth once daily. Kkxroyil-Ef-Niv-Fe-FA tab Take 1 tablet by mouth once [...] APPLICATOR Shaun Carlin MD documented in this encounterGrant Hospital03-28-2023 History of Present illness Narrative* Alysha Ruff APRN.DIRECTOR RECORDS MANAGEMENT - 12/10/2022 9:45 AM EDT Sia Olivera is a 37 year old year old female who presents for a MILL MANAGER problem visit for IUD check. Mirena IUD [...] placed. Alysha Ruff APRN.CNP documented in this [facility]02-17-2023 Instructions* Patient Instructions* Alysha Ruff APRN.CNP [...] experiencing severe pelvic pain. documented in this encounterGrant Hospital02-17-2023 Procedure note* Alysha Ruff APRN.CNP - [...] (exact date). Informed Consent Consent Obtained: Written [place] Protocol A moment to CARE was completed. [...] yes IUD type: Mirena IUD Lot #: [id number] Expiration Date: 07/16/2024 Strings trimmed. Post-Procedure Details: Patient tolerated the procedure well with no immediate complications Patient Education: side effects discussed with patient including irregular spotting. Patient to follow-up PRN any problems. SIGN OUT All instruments, equipment, possible retained foreign bodies accounted for. Post-procedure follow-up management communicated and Plan of Care Visit completed when applicable Alysha Ruff APRN.DIRECTOR RECORDS MANAGEMENT documented in this encounterGrant Hospital02-08-2023 History of Present illness Narrative* Tricia Rangel MD - 10/23/2022 3:14 PM EST VISIT Sia Olivera is a 37 year old year old here for visit. Delivery Summary: c/s on 09/12 complicated by chtn, no meds ROS/ Recovery: Feeding: Breast and bottle feeding problems: None Menses since delivery: spotting Menstrual pattern prior to : Regular periods [place] since delivery: Resumed Depression: denies symptoms of [...] external genitalia normal, normal Bartholin's glands, urethra, Paramount's glands, no vulvar lesions, no cervical lesions, [...] pcp Tricia Rangel MD documented in this encounterGrant Hospital02-07-2023 Miscellaneous Notes* Telephone Encounter - Diane Lee - 10/22/2022 8:56 AM EST Pt LVM requesting to [facility] appt charly/ Kim for hernia. Called back PT no answer LVM documented in this encounterGrant Hospital01-24-2023 History of Present illness Narrative* Shaun [...] 1 tablet by mouth every 6 hours. Yijudnbn-Ap-Klp-Fe-FA tab Take 1 tablet by mouth once [...] visit Shaun Carlin MD documented in this encounterGrant Hospital01-05-2023 Miscellaneous Notes* Telephone Encounter - Michelle Osborn LPN - 09/19/2022 9:23 AM EST Requested Prescriptions Pending Prescriptions Disp Refills SUMAtriptan (IMITREX) 50 mg tablet 12 tablet 2 Sig: Take 1 tablet by mouth as needed. documented in this encounterGrant Hospital12-28-2022 History of Past illness Narrative* Problem [...] of this encounter (statuses as of 10/08/2022) [facility] of Past illness Narrative* Problem [...] of this encounter (statuses as of 10/22/2022) [facility] of Past illness Narrative* Problem [...] of this encounter (statuses as of 10/23/2022) [facility] of Past illness Narrative* Problem [...] of this encounter (statuses as of 11/01/2022) [facility] of Past illness Narrative* Problem [...] of this encounter (statuses as of 11/07/2022) [facility] of Past illness Narrative* Problem [...] of this encounter (statuses as of 12/10/2022) [facility] of Past illness Narrative* Problem [...] of this encounter (statuses as of 12/10/2022) [facility] of Past illness Narrative* Problem [...] of this encounter (statuses as of 01/02/2023) [facility] of Past illness Narrative* Problem [...] of this encounter (statuses as of 01/02/2023) [facility] of Past illness Narrative* Problem [...] of this encounter (statuses as of 01/18/2023) [facility] of Past illness Narrative* Problem [...] of this encounter (statuses as of 03/27/2023) [facility] Miscellaneous Notes* Quick Notes - Tricia Rangel MD - 09/04/2022 2:42 PM EST Good fm Labor precautions Gdma1- fsbg reviewed only 3 abnormal values Continue diet Weekly nst Reactive nst iol at 38 wga scheduled Hsv- valtrex suppression Gbs positive- abx in labor Chtn- no elevated bps noted, no meds [place]- less than 40 y/o no testing noted .Tricia Rangel MD documented in this encounterGrant Hospital12-21-2022 Nurse Note* Radha Moore MA - 09/04/2022 2:22 PM EST Movement? Active baby Vaginal Bleeding: NO Vaginal fluid leakage of fluid: NO Contractions: [place] type Edema: Negative Radha Moore MA documented in this encounterGrant Hospital12-16-2022 Miscellaneous Notes* Quick Notes - Flora Browning MD - 08/30/2022 2:43 PM EST EFW 76%, darlyn 9, BPP 8/8 BS look good, 1 FBS of 98 IOL pm of 09/09 at 38 wks NST minor next wk Flora Browning MD, MD documented in this encounterGrant Hospital12-16-2022 Nurse Note* Radha Moore MA - 08/30/2022 2:36 PM EST Movement? Active baby Vaginal Bleeding: NO Vaginal fluid leakage of fluid: NO Contractions: [place] type Edema: Trace Radha Moore MA documented in this encounterGrant Hospital12-09-2022 Miscellaneous Notes* Quick Notes - Flora [...] Moderate Flora Browning MD, documented in this encounterGrant Hospital12-09-2022 Nurse Note* Marielena Vidales MA - 08/23/2022 2:15 PM EST Movement? Active baby Vaginal Bleeding: NO Vaginal fluid leakage of fluid: NO Contractions: no contractions Edema: Negative Marielena Vidales MA documented in this encounterGrant Hospital12-02-2022 Miscellaneous Notes* Telephone Encounter - Flora [...] Location Dept Phone 08/23/2022 2:00 PM NST LE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 AG [facility] [phone] 08/23/2022 2:30 PM FLORA BROWNING [facility] [phone] 08/30/2022 2:15 PM ULTRASOUND LE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 AG [facility] [phone] 08/30/2022 3:30 PM FLORA BROWNING [facility] [phone] 09/04/2022 2:00 PM NST LE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 AG [facility] [phone] 09/04/2022 2:30 PM TRICIA RANGEL [facility] [phone] 10/08/2022 11:00 AM SHAUN CARLIN AG [address] [phone] documented in this encounterGrant Hospital12-01-2022 Miscellaneous Notes* Quick Notes - Flora Browning MD - 08/15/2022 3:00 PM EST BS p BF and lunch creeping up, reviewed approp meals and fu next wk, ngozi since this time covered aneating holiday NST R, repeat next wk Flora Browning MD, MD documented in this encounterGrant Hospital11-22-2022 Miscellaneous Notes* Addendum Note - Yael [...] feed Yael Hammond APRN.CNM documented in this encounterGrant Hospital11-22-2022 Instructions* Patient Instructions* Yael Mahmood APRN.CNM [...] mom can give - Talk to your technology sales consultant, nurse, and/or doctor while at the hospital about - Ask about local support groups and resources that you can use if you have questions after you go home Please call the office before going to the hospital. If you are , [facility]. Do not go to the outlying ER s ([place], [place] or [place]). If you need to go to an ER and cannot or will not go downtown, please use one of [facility] s ERs (not [facility], [place] or [facility]). documented in this [facility]11-22-2022 Nurse Note* Radha Moore MA - 08/06/2022 1:04 PM EST Movement? Active baby Vaginal Bleeding: NO Vaginal fluid leakage of fluid: NO Contractions: no contractions Edema: Negative Radha Moore MA documented in this [facility]11-18-2022 Miscellaneous Notes* Quick Notes - Flora Browning MD - 08/02/2022 1:53 PM EST NST R, repeat next wk FBS now nl after changing her p dinner snack Test rx rewritten to reflex qID testing US in 2 wks Flora Browning MD, documented in this [facility]11-18-2022 Nurse Note* Radha Moore MA - 08/02/2022 1:25 PM EST Movement? Active baby Vaginal Bleeding: NO Vaginal fluid leakage of fluid: NO Contractions: [place] type Edema: Trace Radha Moore MA documented in this [facility]11-04-2022 Instructions* Patient Instructions* Honey Angel PA-C [...] not go downtown, please use one of [facility] s ERs (not [place], [place] or [...] ready for the real thing. What do [place] contractions feel like? [place] contractions can be described as tightening [...] to 10 movements in one hour. References [employer]. False Labor Accessed 11/23/2015. [employer]. Contractions Accessed 11/23/2015. Copyright 9025-4346 [facility]. All rights reserved This information is provided by the [facility] and is not intended to replace the medical advice of your doctor or health care provider. Please consult your health care provider for advice about a specific medical condition. For additional health information, please contact the Center for Consumer Health Information at the [facility] or toll-free extension [phone]. If you prefer, you may visit [email or web address] or [email or web address]. This document was last reviewed on: 2015 index#0329 is the Best Feeding Your Baby's stomach [...] mom can give - Talk to your technology sales consultant, nurse, and/or doctor while at the hospital about - Ask about local support groups and resources that you can use if you have questions after you go home documented in this [facility]11-04-2022 Miscellaneous Notes* Quick Notes - Honey [...] NST Honey Angel PA-C documented in this [facility]11-04-2022 Nurse Note* Eliz Friedman MA - 07/19/2022 11:17 AM EDT Movement? Active baby Vaginal Bleeding: NO Vaginal fluid leakage of fluid: NO Contractions: no contractions Edema: Negative Eliz Friedman MA documented in this [facility]10-21-2022 Instructions* Patient Instructions* Honey Angel PA-C - 07/05/2022 11:02 AM EDT Please call the office before going to the hospital. If you are , go to the [facility]. Do not go to the outlying ER s ([place], [place] or [place]). If you need to go to an ER and cannot or will not go downtown, please use one of [place] [facility] s ERs (not [facility], [place] or [facility]). COUNTING YOUR BABY'S MOVEMENTS Your Baby's [...] have false labor pains, also known as [place] contractions. These irregular uterine contractions are [...] to 10 movements in one hour. References [employer]. False Labor Accessed 11/23/2015. [employer]. Contractions Accessed 11/23/2015. Copyright 6502-1645 [facility]. All rights reserved This information is provided by the [facility] and is not intended to replace the medical advice of your doctor or health care provider. Please consult your health care provider for advice about a specific medical condition. For additional health information, please contact the [facility] [employer] [facility] Information at the [facility] or toll-free extension [phone]. If you prefer, you may visit [email or web address] or [email or web address]. This document was last reviewed on: 2015 index#1857 is the Best Feeding Your Baby's stomach [...] mom can give - Talk to your technology sales consultant, nurse, and/or doctor while at [...] )* *Occasional use only documented in this encounterGrant Hospital10-21-2022 Miscellaneous Notes* Quick Notes - Honey [...] US Honey Angel PA-C documented in this encounterGrant Hospital10-21-2022 Nurse Note* Marielena Vidalse MA - 07/05/2022 10:26 AM EDT Movement? Active baby Vaginal Bleeding: NO Vaginal fluid leakage of fluid: NO Contractions: no contractions Edema: Trace Marielena Vidales MA documented in this encounterGrant Hospital10-21-2022 History of Present illness Narrative* Christina Barlow RN - 07/05/2022 9:32 AM EDT DIABETES SELF-MANAGEMENT EDUCATION AND SUPPORT Location: [place] Type of visit: Virtual (with video) individual [...] Race/Ethnic Origin: White/ Does your culture or catholic require any of the following: No cultural/zoroastrian practices affecting DM Do you have problems [...] Take 1 tablet by mouth twice daily. Tvjwmihj-Pp-Lvl-Fe-FA tab Take 1 tablet by mouth once [...] 9:32 AM PAGER: [phone] documented in this encounterGrant Hospital10-21-2022 History of Present illness Narrative* Christina Ruiz RD - 07/05/2022 8:04 AM EDT DIABETES SELF-MANAGEMENT EDUCATION AND SUPPORT Location: [place] Type of visit: Virtual (with video) individual [...] Take 1 tablet by mouth twice daily. Nikvpikm-Ls-Qlc-Fe-FA tab Take 1 tablet by mouth once [...] medical record. SIGNATURE: Christina Ruiz MS RD [facility] PATIENT NAME: Sia Olivera DATE: July 05, 2022 TIME: 8:04 AM PAGER: documented in this encounterGrant Hospital10-14-2022 Miscellaneous Notes* Telephone Encounter - Celina Subramanian RN - 06/28/2022 3:41 PM EDT Aware of results and recommendations from Honey. Will draft roller picker the equipment and keep a log [...] with diet only (no medications). She can draft roller picker her supplies at her local pharmacy. [...] based on patient requirements. documented in this encounterGrant Hospital10-11-2022 Miscellaneous Notes* Telephone Encounter - Celina Subramanian RN - 06/25/2022 4:23 PM EDT Aware of results and will get the 3 hr done on Friday. Aware to fast for 8 hr and to take a snack for after the test. Celina Subramanian RN 1hr GTT:[id number] documented in this encounterGrant Hospital10-07-2022 Instructions* Patient Instructions* Honey Angel PA-C - 06/21/2022 1:30 PM EDT Please call the office before going to the hospital. If you are , [facility]. Do not go to the outlying ER s ([facility] or [place]). If you need to go to an ER and cannot or will not go downtown, please use one of [facility] s ERs (not [facility], [place] or [facility]). COUNTING YOUR BABY'S MOVEMENTS Your Baby's [...] have false labor pains, also known as [place] Mckinley contractions. These irregular uterine contractions are perfectly normal and might start to occur from your fourth month of . They are your body s way of getting ready for the real thing. What do [place]in[place] contractions feel like? [place] contractions can be described as tightening [...] to 10 movements in one hour. References [employer]. False Labor Accessed 11/23/2015. [employer]. Contractions Accessed 11/23/2015. Copyright 7476-1977 [facility]. All rights reserved This information is provided by the [facility] and is not intended to replace the medical advice of your doctor or health care provider. Please consult your health care provider for advice about a specific medical condition. For additional health information, please contact the [facility] Information at the [facility] or toll-free extension [phone]. If you prefer, you may visit [email or web address] or [email or web address]. This document was last reviewed on: 2015 index#6182 is the Best Feeding Your Baby's stomach [...] mom can give - Talk to your technology sales consultant, nurse, and/or doctor while at the hospital about - Ask about local support groups and resources that you can use if you have questions after you go home documented in this encounterGrant Hospital10-07-2022 Miscellaneous Notes* Quick Notes - Honey Angel PA-C - 06/21/2022 1:20 PM EDT + FM. No leaking/bleeding/contractions. Planning . PPBC - discussed. Third trimester labs ordered. GUERO and PTL precautions discussed. Hx HSV: plan suppression at 36 weeks. AMA, Obesity: Plan for k8awrsf growth US at 32 weeks, weekly NSTs at 36 weeks. rtc 2 weeks Honey Angel PA-C documented in this encounterGrant Hospital10-07-2022 Nurse Note* Radha Moore MA - 06/21/2022 1:14 PM EDT Movement? Active baby Vaginal Bleeding: NO Vaginal fluid leakage of fluid: NO Contractions: no contractions Edema: Negative Radha Moore MA documented in this encounterGrant Hospital08-26-2022 Instructions* Patient Instructions* Honey Angel PA-C [...] not go downtown, please use one of [facility] s ERs (not [place], [place] or [...] What do Octavio Mckinley contractions feel like? [place] contractions can be described as tightening [...] to 10 movements in one hour. References [employer]. False Labor Accessed 11/23/2015. [employer]. Contractions Accessed 11/23/2015. Copyright 9177-4635 [facility]. All rights reserved This information is provided by the [facility] and is not intended to replace the medical advice of your doctor or health care provider. Please consult your health care provider for advice about a specific medical condition. For additional health information, please contact the [facility] Information at the [facility] or toll-free extension [phone]. If you prefer, you may visit [email or web address]/ or [email or web address]. This document was last reviewed on: 2015 index#2941 is the Best Feeding 1. Vsjf-wj-dxil is best for your baby A. Your [...] baby, no the clock documented in this encounterGrant Hospital08-26-2022 Nurse Note* Anat Arce LPN - 05/10/2022 8:38 AM EDT Movement? Active baby Vaginal Bleeding: NO Vaginal fluid leakage of fluid: NO Contractions: no contractions Edema: Negative Anat Arce LPN documented in this encounterGrant Hospital08-26-2022 Miscellaneous Notes* Quick Notes - Honey [...] weeks Honey Angel PA-C documented in this encounterGrant Hospital08-22-2022 History of Present illness Narrative* Shaun [...] 8 OUNCES OF LIQUID AND TAKE DIRECTED. Bapjefrm-Ob-Hsf-Fe-FA tab Take 1 tablet by mouth once [...] <130/80 Shaun Carlin MD documented in this encounterGrant Hospital07-22-2022 Miscellaneous Notes* Addendum Note - Honey [...] weeks Honey Angel PA-C documented in this encounterGrant Hospital07-22-2022 History of Present illness Narrative* Shaun [...] 8 HOURS NEEDED FOR NAUSEA AND VOMITING Bktladlq-If-Iqf-Fe-FA tab Take 1 tablet by mouth once [...] monitor Shaun Carlin MD documented in this encounterGrant Hospital07-22-2022 Instructions* Patient Instructions* Honey Angel PA-C - 04/05/2022 9:20 AM EDT Please call the office before going to the hospital. If you are , [facility]. Do not go to the outlying ER s ([facility] or [place]). If you need to go to an ER and cannot or will not go downtown, please use one of [facility] s ERs (not [facility], [facility] or [facility] is the best feeding Why is [...] both mother and baby documented in this encounterGrant Hospital07-22-2022 Nurse Note* Eliz Friedman MA - 04/05/2022 8:47 AM EDT Movement? Too early Vaginal Bleeding: Yes provider notified Vaginal fluid leakage of fluid: NO Contractions: no contractions Edema: Negative Eliz Friedman MA documented in this encounterGrant Hospital07-14-2022 History of Past illness Narrative* Problem [...] of this encounter (statuses as of 09/20/2022) [facility] Past [facility] Narrative* Problem [...] of this encounter (statuses as of 10/04/2022) [facility] Miscellaneous Notes* Telephone Encounter - Ольга Cook APRN.CNP - 02/21/2022 12:18 PM EDT .The following approved medication requests have been transmitted electronically. Signed Prescriptions Disp Refills ondansetron (ZOFRAN) 8 mg tablet 30 tablet 1 Sig: Take 1 tablet by mouth every 8 hours as needed for nausea/vomiting. Ольга Cook APRN.CNP documented in this encounterGrant Hospital06-02-2022 Instructions* Patient Instructions* Flora Browning MD [...] your questions and concerns. documented in this encounterGrant Hospital06-02-2022 History of Present illness Narrative* Flora [...] Flora Browning MD, MD documented in this encounterGrant Hospital05-27-2022 History of Present illness Narrative* Shaun [...] severe Shaun Carlin MD documented in this encounterGrant Hospital05-20-2022 Miscellaneous Notes* Telephone Encounter - Michelle Lopeztoan WARREN - 02/01/2022 7:57 AM EDT Pending Prescriptions Disp Refills LISINOPRIL 10 MG TABLET 90 tablet 0 Sig: TAKE 1 TABLET BY MOUTH EVERY DAY THEA: documented in this encounterGrant Hospital05-09-2022 Miscellaneous Notes* Telephone Encounter - Celina Subramanian RN - 01/21/2022 10:11 AM EDT Aware of results and transferred to scheduling. HCG : 1,620. US pended. 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 [facility] Work Phone: [phone]) 590-558804-25-2022 Miscellaneous Notes* Telephone Encounter - Chelsea Winters Ma - 01/07/2022 10:38 AM EDT Patient phones requesting refills as follows: Pending Prescriptions Disp Refills SUMATRIPTAN 50 MG TABLET 12 tablet 5 Sig: TAKE 1 TABLET BY MOUTH NEEDED FOR MIGRAINE HEADACHE(SEE INSTRUCTIONS) THEA: Yes Please review and advise. Chelsea Winters Ma documented in this encounterGrant Hospital03-14-2022 History of Past illness Narrative* Problem [...] of this encounter (statuses as of 02/08/2022) [facility] Narrative* Problem [...] of this encounter (statuses as of 02/14/2022) [facility] Narrative* Problem [...] of this encounter (statuses as of 02/14/2022) [facility] Narrative* Problem [...] of this encounter (statuses as of 02/21/2022) [facility] Narrative* Problem [...] of this encounter (statuses as of 03/11/2022) [facility] Narrative* Problem [...] of this encounter (statuses as of 03/25/2022) [facility] Narrative* Problem [...] of this encounter (statuses as of 04/05/2022) [facility] Narrative* Problem [...] of this encounter (statuses as of 04/05/2022) [facility] Narrative* Problem [...] of this encounter (statuses as of 04/16/2022) [facility] Narrative* Problem [...] of this encounter (statuses as of 04/24/2022) [facility] Narrative* Problem [...] of this encounter (statuses as of 04/29/2022) [facility] Narrative* Problem [...] of this encounter (statuses as of 05/03/2022) [facility] Narrative* Problem [...] of this encounter (statuses as of 05/06/2022) [facility] Narrative* Problem [...] of this encounter (statuses as of 05/07/2022) [facility] Narrative* Problem [...] of this encounter (statuses as of 05/10/2022) [facility] Narrative* Problem [...] of this encounter (statuses as of 05/21/2022) [facility] Narrative* Problem [...] of this encounter (statuses as of 05/21/2022) [facility] Narrative* Problem [...] of this encounter (statuses as of 06/10/2022) [facility] Narrative* Problem [...] of this encounter (statuses as of 06/19/2022) [facility] Narrative* Problem [...] of this encounter (statuses as of 06/21/2022) [facility] Narrative* Problem [...] of this encounter (statuses as of 06/25/2022) [facility] Narrative* Problem [...] of this encounter (statuses as of 06/28/2022) [facility] Narrative* Problem [...] of this encounter (statuses as of 07/01/2022) [facility] Narrative* Problem [...] of this encounter (statuses as of 07/05/2022) [facility] Narr[facility]* Problem [...] of this encounter (statuses as of 07/05/2022) [facility] N[facility]* Problem [...] of this encounter (statuses as of 07/05/2022) [facility] Narrative* Problem [...] of this encounter (statuses as of 07/18/2022) [facility] Narrative* Problem [...] of this encounter (statuses as of 07/19/2022) [facility] N[facility]* Problem [...] of this encounter (statuses as of 07/19/2022) [facility]* Problem [...] of this encounter (statuses as of 07/31/2022) [facility]* Problem [...] of this encounter (statuses as of 08/02/2022) [facility]* Problem [...] of this encounter (statuses as of 08/02/2022) [facility] Narr[facility]* Problem [...] of this encounter (statuses as of 08/06/2022) [facility] N[facility]* Problem [...] of this encounter (statuses as of 08/06/2022) [facility]* Problem [...] of this encounter (statuses as of 08/15/2022) [facility]* Problem [...] of this encounter (statuses as of 08/16/2022) [facility]* Problem [...] of this encounter (statuses as of 08/22/2022) [facility] N[facility]* Problem [...] of this encounter (statuses as of 08/23/2022) [facility] Narrative* Problem [...] of this encounter (statuses as of 08/23/2022) [facility] Narr[facility]* Problem [...] of this encounter (statuses as of 08/30/2022) [facility]* Problem [...] of this encounter (statuses as of 08/30/2022) [facility] N[facility]* Problem [...] of this encounter (statuses as of 09/04/2022) [facility] Narr[facility]* Problem [...] of this encounter (statuses as of 09/04/2022) [facility] N[facility]* Problem [...] of this encounter (statuses as of 01/07/2022) [facility] N[facility]* Problem [...] of this encounter (statuses as of 01/11/2022) [facility] N[facility]* Problem [...] of this encounter (statuses as of 01/18/2022) [facility] N[facility]* Problem [...] of this encounter (statuses as of 01/21/2022) [facility] Narrative* Problem [...] of this encounter (statuses as of 02/01/2022) [facility] HospitalConsult note Author Guille Shin [facility] Note Date/Time February 14, 2025 6:12p m [facility] Medical Records Department [address] [place] [address] Anesthesia Postop Eval II 02/14/251636 MR#: [id number] Acct: [id number] Name: SIA OLIVERA Rep #:[id number] : 1985 39 From: Guille Shin MD PCP: Hui Valdes, 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-C Status:REG S DC Y Race: C Location: [facility] Anesthesia Postop Eval I Sum Postop Eval Completion status Anesthesia document: Postop Eval 1 completed: Yes Anesthesia Postop Eval I Summary Anesthesia Postop Eval I Summary: Anesthesia Postop Eval I: Assessment Summary Airway patent 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 Spontaneous unlabored 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 respirations Mental status Awake,Calm 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 nausea No 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 Vomiting No 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 Anesthesia Postop Eval I: Fluid Summary Crystalloid volume administer 1,000 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 (ml) Colloids volume administered ( ml) Blood Product volume administered (ml) Total IV fluid infused 1,000 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 Anesthesia Postop Eval I: Summary Notes Anesthesia Complication No 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 Anesthesia Complication Comment: Post-operative progress note Anesthesia: Postop Eval II Evaluation Mental status: Awake Pain Level: 0 nausea: No Vomiting: No Complications Anesthesia Complication: No 02/14/251636 <Electronically signed by Guille Shin MD> Date _ Guille Shin MD Cosigner Signature: Date CC: ~ Signed [facility] Work Phone: Evaluation note* Diagnosis Acute bronchitis, unspecified organism- Primary Acute serous otitis media of left ear, recurrence not specified Acute diffuse otitis externa of left ear [facility] encounter [facility] Work Phone: Evaluation note* Diagnosis Migraine without aura and without status migrainosus, not intractable Migraine without aura, without mention of intractable migraine without mention of status migrainosus [facility]* Diagnosis Hypertension, essential- Primary Unspecified essential hypertension Bronchitis Bronchitis, not specified as acute or chronic [facility]* Diagnosis Women's annual routine gynecological examination- Primary Routine cervical smear Screening for malignant neoplasm of the cervix Secondary amenorrhea Absence of menstruation [facility]* Diagnosis care of multigravida, antepartum- Primary [facility]* Diagnosis Hypertension, essential Unspecified essential hypertension [facility]* Diagnosis Hypertension, essential- Primary Unspecified essential hypertension GERD without esophagitis Esophageal reflux at early stage state, incidental Nausea and vomiting of , antepartum Unspecified vomiting of , antepartum Migraine without aura and without status migrainosus, not intractable Migraine without aura, without mention of intractable migraine without mention of status migrainosus [facility]* Diagnosis Amenorrhea, secondary- Primary Absence of menstruation Nausea and vomiting during documented [facility]* Diagnosis care of multigravida, antepartum [facility]* Diagnosis Nausea/vomiting in - Primary Unspecified vomiting of , unspecified as to episode of care [facility]* Diagnosis Secondary amenorrhea Absence of menstruation documented [facility]* Diagnosis Nausea/vomiting in Unspecified vomiting of , unspecified as to episode of care [facility]* Diagnosis Multigravida of advanced maternal age [...] specified as infective [facility]* Diagnosis Hypertension, essential- Primary Unspecified essential hypertension Preexisting hypertension complicating , antepartum Benign essential hypertension antepartum GERD without esophagitis Esophageal reflux Nausea and vomiting of , antepartum Unspecified vomiting of , antepartum Periumbilical hernia Umbilical hernia without mention of obstruction or gangrene [facility]* Diagnosis Constipation, unspecified constipation type documented in this encounter [facility] note* Diagnosis Nausea/vomiting in Unspecified vomiting of , unspecified as to episode of care documented in this encounter [facility] note* Diagnosis PUD (peptic ulcer disease)- Primary Peptic ulcer, unspecified site, unspecified as acute or chronic, without mention of hemorrhage, perforation, or obstruction GERD without esophagitis Esophageal reflux Preexisting hypertension complicating , antepartum Benign essential hypertension antepartum [facility]* Diagnosis Obesity complicating , second trimester- Primary Encounter for anatomic survey 20 weeks gestation of state, incidental documented in this encounter [facility] note* Diagnosis Preexisting hypertension complicating , antepartum- Primary Benign essential hypertension antepartum AMA (advanced maternal age) multigravida 35+, second trimester Obesity complicating , second trimester Headache in , second trimester 20 weeks gestation of state, incidental documented in this encounter [facility] note* Diagnosis Constipation, unspecified constipation type Headache in , second trimester [facility]* Diagnosis Headache in , second trimester documented in this encounter [facility] note* Diagnosis Nausea/vomiting in Unspecified vomiting of , unspecified as to episode of care documented in this encounter [facility] note* Diagnosis Headache in , second trimester documented in this encounter [facility] note* Diagnosis AMA (advanced maternal age) multigravida 35+, second trimester- Primary 26 weeks gestation of state, incidental 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ng , antepartum, unspecified trimester Obesity complicating , first trimester Preexisting hypertension complicating , antepartum Benign essential hypertension antepartum History of drug use documented [facility]* Diagnosis Headache in , second trimester documented in this encounter [facility] [facility] Diagnosis Diet controlled gestational diabetes mellitus (GDM) in second trimester- Primary [facility] Diagnosis GDM (gestational diabetes mellitus), class A1 Abnormal maternal glucose tolerance, complicating , childbirth, or the puerperium, unspecified as to episode of care Diet controlled gestational diabetes mellitus (GDM) in second trimester [facility] Diagnosis Gestational diabetes mellitus, class A1- Primary Abnormal maternal glucose tolerance, complicating , childbirth, or the puerperium, unspecified as to episode of care 28 weeks gestation of state, incidental Need for cdakskecxf-qajuoyd-zzkvnuiug (Tdap) vaccine Need for prophylactic vaccination with combined qajhejzkvt-pzkazjy-expcnkakr (DTP) vaccine Obesity complicating , third trimester Constipation, unspecified constipation type 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ng , antepartum, unspecified trimester AMA (advanced maternal age) multigravida 35+, third trimester Preexisting hypertension complicating , antepartum Benign essential hypertension antepartum [facility] Diagnosis Headache in , second trimester [facility] Diagnosis Gestational diabetes mellitus, class A1- [...] of state, incidental [facility] Diagnosis Gestational diabetes mellitus, class A1 Abnormal maternal glucose tolerance, complicating , childbirth, or the puerperium, unspecified as to episode of care [facility] Diagnosis Headache in , second trimester 32 weeks gestation of - Primary state, incidental [facility] Diagnosis 32 weeks gestation of - Primary state, incidental [facility] Diagnosis Preexisting hypertension complicating , antepartum- Primary Benign essential hypertension antepartum 32 weeks gestation of state, incidental GDM (gestational diabetes mellitus), class A1 Abnormal maternal glucose tolerance, complicating , childbirth, or the puerperium, unspecified as to episode of care [facility] Diagnosis 32 weeks gestation of - Primary state, incidental [facility]* Diagnosis AMA (advanced maternal age) multigravida 35+, third trimester- Primary Obesity complicating , third trimester Gestational diabetes mellitus, class A1 Abnormal maternal glucose tolerance, complicating , childbirth, or the puerperium, unspecified as to episode of care Preexisting hypertension complicating , antepartum Benign essential hypertension antepartum 33 weeks gestation of state, incidental Non-stress test reactive Other specified screening [facility] Diagnosis 34 weeks gestation of - Primary state, incidental [facility] Diagnosis Preexisting hypertension complicating , antepartum- Primary Benign essential hypertension antepartum 34 weeks gestation of state, incidental Gestational diabetes mellitus, class A1 Abnormal maternal glucose tolerance, complicating , childbirth, or the puerperium, unspecified as to episode of care [facility] Diagnosis Headache in , second trimester [facility] Diagnosis Headache in , second trimester 35 weeks gestation of - Primary state, incidental [facility] Diagnosis 35 weeks gestation of - Primary state, incidental [facility] Diagnosis Preexisting hypertension complicating , antepartum- Primary Benign essential hypertension antepartum 35 weeks gestation of state, incidental Gestational diabetes mellitus, class A1 Abnormal maternal glucose tolerance, complicating , childbirth, or the puerperium, unspecified as to episode of care [facility] Diagnosis AMA (advanced maternal age) multigravida 35+, third trimester Obesity complicating , third trimester [facility] Diagnosis Preexisting hypertension complicating , antepartum- Primary Benign essential hypertension antepartum 36 weeks gestation of state, incidental Gestational diabetes mellitus, class A1 Abnormal maternal glucose tolerance, complicating , childbirth, or the puerperium, unspecified as to episode of care 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ng , antepartum, unspecified trimester [facility] Diagnosis 36 weeks gestation of - Primary state, incidental [facility] Diagnosis 37 weeks gestation of - Primary state, incidental Preexisting hypertension complicating , antepartum Benign essential hypertension antepartum Diet controlled gestational diabetes mellitus (GDM) in second trimester 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ng , antepartum, unspecified trimester Group B Streptococcus carrier, antepartum Other current maternal conditions classifiable elsewhere, antepartum [facility]* Diagnosis Migraine without aura and without status migrainosus, not intractable Migraine without aura, without mention of intractable migraine without mention of status migrainosus [facility] Diagnosis Yeast dermatitis- Primary Candidiasis of [...] of gestational diabetes [facility] Diagnosis care and examination- Primary Routine follow-up examination or test, unconfirmed [facility] Diagnosis Encounter for IUD insertion- Primary Encounter for insertion of intrauterine contraceptive device Routine screening for STI (sexually transmitted infection) Screening examination for venereal disease [facility] Diagnosis Encounter for routine checking of intrauterine contraceptive device (IUD)- Primary [facility]* Diagnosis Hypertension, essential- Primary Unspecified essential hypertension History of gestational diabetes Personal history of gestational diabetes Obesity, Class II, BMI 35-39.9 Obesity, unspecified GERD without esophagitis Esophageal reflux PUD (peptic ulcer disease) Peptic ulcer, unspecified site, unspecified as acute or chronic, without mention of hemorrhage, perforation, or obstruction External hemorrhoid External hemorrhoids without mention of complication [facility] Diagnosis Ventral hernia without obstruction or gangrene- Primary Ventral hernia, unspecified, without mention of obstruction or gangrene Class 2 severe obesity with serious comorbidity and body mass index (BMI) of 36.0 to 36.9 in adult, unspecified obesity type (HCC) Gastroesophageal reflux disease, unspecified whether esophagitis present Hypertension, unspecified type [facility]* Diagnosis Gastroesophageal reflux disease, unspecified whether esophagitis present Pre-op testing Preoperative examination, unspecified Hypertension, essential Unspecified essential hypertension GERD without esophagitis Esophageal reflux Hyperlipidemia, mixed Mixed hyperlipidemia Migraine without aura and without status migrainosus, not intractable Migraine without aura, without mention of intractable migraine without mention of status migrainosus [facility] Diagnosis Gastroesophageal reflux disease without esophagitis- Primary Esophageal reflux Class 1 obesity with body mass index (BMI) of 34.0 to 34.9 in adult, unspecified obesity type, unspecified whether serious comorbidity present Ventral hernia without obstruction or gangrene Ventral hernia, unspecified, without mention of obstruction or gangrene [facility] Diagnosis Routine physical examination- Primary Routine [...] single bacterial disease [facility] Diagnosis Gastroesophageal reflux disease, unspecified whether [...] human papillomavirus (HPV) documented [facility]* Diagnosis Gastroesophageal reflux disease, unspecified whether [...] of status migrainosus [facility] Diagnosis Gastroesophageal reflux disease, unspecified whether [...] of status migrainosus [facility]* Diagnosis Gastroesophageal reflux disease, unspecified whether [...] counseling and advice [facility] Diagnosis Gastroesophageal reflux disease, unspecified whether [...] intrauterine contraceptive device documented in this encounter [facility] note* Diagnosis Gastroesophageal reflux disease, unspecified [...] remission status unspecified documented in this encounter [facility] note* Diagnosis Onset Date Resolution Status Admit Date Ventral hernia acute February 02, 2025 12:47pm [facility] Work Phone: Hospital Discharge instructions* Instructions* Rolan Allen MD - 06/19/2021 Make sure you hydrate yourself well and take Tylenol for any fever develops. Return to the emergency department or see your family doctor should you have worsening chest pain shortness of breath or cough or fever * Attachments The following attachments cannot be sent through Care Everywhere. * Ears: Keeping Dry Instruction (Liberian) * Otitis Externa (Liberian) * Serous Otitis Media (Liberian) * Bronchitis (Liberian) documented in this [facility] Work Phone: Reason for referral (narrative)* Diagnostic Procedure Only (Routine) - Pending Review Specialty Diagnoses / Procedures Referred By Kalin simental Referred To Contact [facility] Diagnoses care of multigravida, antepartum Procedures OBSTETRIC ULTRASOUND WHI US PREG UTERUS AFTER 1ST TRIMEST GESTATION Rolan Dexter, DO [address] [place] [address] [address] Referral ID Status Reason Start Date Expiration Date Visits Requested Visits Authorized [id number] Pending Review Auto-Generat ed Referral 01/21/2022 01/21/2023 1 1 [facility] for referral (narrative)* Diagnostic Procedure Only (Routine) - Pending Review Specialty Diagnoses / Procedures Referred By Contac t Referred To Contact [facility] Diagnoses 15 weeks gestation of Procedures OBSTETRIC ULTRASOUND WHI US PREG UTERUS AFTER 1ST TRIMEST GESTATION Honey Angel PA-C [address] [address] Referral ID Status Reason Start Date Expiration Date Visits Requested Visits Authorized [id number] Pending Review Auto-Generat ed Referral 04/05/2022 04/05/2023 1 1 T [facility] for referral (narrative)* Diagnostic Procedure Only (Routine) - Pending Review Specialty Diagnoses / Procedures Referred By Contac t Referred To [facility] Diagnoses Obesity complicating , second trimester Procedures OBSTETRIC ULTRASOUND WHI US PREG UTERUS AFTER 1ST [place] [address] [place] [address] [address] Referral ID Status Reason Start Date Expiration Date Visits Requested Visits Authorized [id number] Pending Review Auto-Generat ed Referral 05/07/2022 05/07/2023 1 1 T [facility] for referral (narrative)* Diagnostic Procedure Only (Routine) - Authorized Specialty Diagnoses / Procedures Referred By Contac t Referred To Contact [facility] Diagnoses Gestational diabetes mellitus, class A1 Procedures OBSTETRIC ULTRASOUND WHI US PREG UTERUS AFTER 1ST TRIMEST GESTATION Honey Angel PA-C [address] [facility] [address] [place] [address] [facility] [address] [place] [address] Referral ID Status Reason Start Date Expiration Date Visits Requested Visits Authorized [id number] Authorized Auto-Generat ed Referral 07/05/2023 4 1 [facility] for referral (narrative)* Outpatient Procedure (Routine) - Pending Review Specialty Diagnoses / Procedures Referred By Contac t Referred To Contact Diagnoses Gestational diabetes mellitus, class A1 Obesity complicating , third trimester Preexisting hypertension complicating , antepartum Procedures NON-STRESS TEST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 Alcohol and Drug Abuse Patient Records regulations: The Federal rules restrict any use of the information to criminally investigate or prosecute any alcohol or drug abuse patient.[facility] HospitalIn the event this information is protected by the Federal Confidentiality of Alcohol and Drug Abuse Patient Records regulations: The Federal rules restrict any use of the information to criminally investigate or prosecute any alcohol or drug abuse patient.[facility] HospitalIn the event this information is protected by the Federal Confidentiality of Alcohol and Drug Abuse Patient Records regulations: The Federal rules restrict any use of the information to criminally investigate or prosecute any alcohol or drug abuse patient.[facility] HospitalIn the event this information is protected by the Federal Confidentiality of Alcohol and Drug Abuse Patient Records regulations: The Federal rules restrict any use of the information to criminally investigate or prosecute any alcohol or drug abuse patient.[facility] HospitalIn the event this information is protected by the Federal Confidentiality of Alcohol and Drug Abuse Patient Records regulations: The Federal rules restrict any use of the information to criminally investigate or prosecute any alcohol or drug abuse patient.[facility] HospitalIn the event this information is protected by the Federal Confidentiality of Alcohol and Drug Abuse Patient Records regulations: The Federal rules restrict any use of the information to criminally investigate or prosecute any alcohol or drug abuse patient.[facility] HospitalIn the event this information is protected by the Federal Confidentiality of Alcohol and Drug Abuse Patient Records regulations: The Federal rules restrict any use of the information to criminally investigate or prosecute any alcohol or drug abuse patient.[facility] HospitalIn the event this information is protected by the Federal Confidentiality of Alcohol and Drug Abuse Patient Records regulations: The Federal rules restrict any use of the information to criminally investigate or prosecute any alcohol or drug abuse patient.[facility] HospitalIn the event this information is protected by the Federal Confidentiality of Alcohol and Drug Abuse Patient Records regulations: The Federal rules restrict any use of the information to criminally investigate or prosecute any alcohol or drug abuse patient.[facility] HospitalIn the event this information is protected by the Federal Confidentiality of Alcohol and Drug Abuse Patient Records regulations: The Federal rules restrict any use of the information to criminally investigate or prosecute any alcohol or drug abuse patient.[facility] HospitalIn the event this information is protected by the Federal Confidentiality of Alcohol and Drug Abuse Patient Records regulations: The Federal rules restrict any use of the information to criminally investigate or prosecute any alcohol or drug abuse patient.[facility] HospitalIn the event this information is protected by the Federal Confidentiality of Alcohol and Drug Abuse Patient Records regulations: The Federal rules restrict any use of the information to criminally investigate or prosecute any alcohol or drug abuse patient.[facility] HospitalIn the event this information is protected by the Federal Confidentiality of Alcohol and Drug Abuse Patient Records regulations: The Federal rules restrict any use of the information to criminally investigate or prosecute any alcohol or drug abuse patient.[facility] HospitalIn the event this information is protected by the Federal Confidentiality of Alcohol and Drug Abuse Patient Records regulations: The Federal rules restrict any use of the information to criminally investigate or prosecute any alcohol or drug abuse patient.[facility] HospitalIn the event this information is protected by the Federal Confidentiality of Alcohol and Drug Abuse Patient Records regulations: The Federal rules restrict any use of the information to criminally investigate or prosecute any alcohol or drug abuse patient.[facility] HospitalIn the event this information is protected by the Federal Confidentiality of Alcohol and Drug Abuse Patient Records regulations: The Federal rules restrict any use of the information to criminally investigate or prosecute any alcohol or drug abuse patient.[facility] HospitalIn the event this information is protected by the Federal Confidentiality of Alcohol and Drug Abuse Patient Records regulations: The Federal rules restrict any use of the information to criminally investigate or prosecute any alcohol or drug abuse patient.[facility] HospitalIn the event this information is protected by the Federal Confidentiality of Alcohol and Drug Abuse Patient Records regulations: The Federal rules restrict any use of the information to criminally investigate or prosecute any alcohol or drug abuse patient.[facility] HospitalIn the event this information is protected by the Federal Confidentiality of Alcohol and Drug Abuse Patient Records regulations: The Federal rules restrict any use of the information to criminally investigate or prosecute any alcohol or drug abuse patient.[facility] HospitalIn the event this information is protected by the Federal Confidentiality of Alcohol and Drug Abuse Patient Records regulations: The Federal rules restrict any use of the information to criminally investigate or prosecute any alcohol or drug abuse patient.[facility] HospitalIn the event this information is protected by the Federal Confidentiality of Alcohol and Drug Abuse Patient Records regulations: The Federal rules restrict any use of the information to criminally investigate or prosecute any alcohol or drug abuse patient.[facility] HospitalIn the event this information is protected by the Federal Confidentiality of Alcohol and Drug Abuse Patient Records regulations: The Federal rules restrict any use of the information to criminally investigate or prosecute any alcohol or drug abuse patient.[facility] HospitalIn the event this information is protected by the Federal Confidentiality of Alcohol and Drug Abuse Patient Records regulations: The Federal rules restrict any use of the information to criminally investigate or prosecute any alcohol or drug abuse patient.[facility] HospitalIn the event this information is protected by the Federal Confidentiality of Alcohol and Drug Abuse Patient Records regulations: The Federal rules restrict any use of the information to criminally investigate or prosecute any alcohol or drug abuse patient.[facility] HospitalIn the event this information is protected by the Federal Confidentiality of Alcohol and Drug Abuse Patient Records regulations: The Federal rules restrict any use of the information to criminally investigate or prosecute any alcohol or drug abuse patient.[facility] HospitalIn the event this information is protected by the Federal Confidentiality of Alcohol and Drug Abuse Patient Records regulations: The Federal rules restrict any use of the information to criminally investigate or prosecute any alcohol or drug abuse patient.[facility] HospitalIn the event this information is protected by the Federal Confidentiality of Alcohol and Drug Abuse Patient Records regulations: The Federal rules restrict any use of the information to criminally investigate or prosecute any alcohol or drug abuse patient.[facility] HospitalIn the event this information is protected by the Federal Confidentiality of Alcohol and Drug Abuse Patient Records regulations: The Federal rules restrict any use of the information to criminally investigate or prosecute any alcohol or drug abuse patient.[facility] HospitalIn the event this information is protected by the Federal Confidentiality of Alcohol and Drug Abuse Patient Records regulations: The Federal rules restrict any use of the information to criminally investigate or prosecute any alcohol or drug abuse patient.[facility] HospitalIn the event this information is protected by the Federal Confidentiality of Alcohol and Drug Abuse Patient Records regulations: The Federal rules restrict any use of the information to criminally investigate or prosecute any alcohol or drug abuse patient.[facility] HospitalIn the event this information is protected by the Federal Confidentiality of Alcohol and Drug Abuse Patient Records regulations: The Federal rules restrict any use of the information to criminally investigate or prosecute any alcohol or drug abuse patient.[facility] HospitalIn the event this information is protected by the Federal Confidentiality of Alcohol and Drug Abuse Patient Records regulations: The Federal rules restrict any use of the information to criminally investigate or prosecute any alcohol or drug abuse patient.[facility] HospitalIn the event this information is protected by the Federal Confidentiality of Alcohol and Drug Abuse Patient Records regulations: The Federal rules restrict any use of the information to criminally investigate or prosecute any alcohol or drug abuse patient.[facility] HospitalIn the event this information is protected by the Federal Confidentiality of Alcohol and Drug Abuse Patient Records regulations: The Federal rules restrict any use of the information to criminally investigate or prosecute any alcohol or drug abuse patient.[facility] HospitalIn the event this information is protected by the Federal Confidentiality of Alcohol and Drug Abuse Patient Records regulations: The Federal rules restrict any use of the information to criminally investigate or prosecute any alcohol or drug abuse patient.[facility] HospitalIn the event this information is protected by the Federal Confidentiality of Alcohol and Drug Abuse Patient Records regulations: The Federal rules restrict any use of the information to criminally investigate or prosecute any alcohol or drug abuse patient.[facility] HospitalIn the event this information is protected by the Federal Confidentiality of Alcohol and Drug Abuse Patient Records regulations: The Federal rules restrict any use of the information to criminally investigate or prosecute any alcohol or drug abuse patient.[facility] HospitalIn the event this information is protected by the Federal Confidentiality of Alcohol and Drug Abuse Patient Records regulations: The Federal rules restrict any use of the information to criminally investigate or prosecute any alcohol or drug abuse patient.[facility] HospitalIn the event this information is protected by the Federal Confidentiality of Alcohol and Drug Abuse Patient Records regulations: The Federal rules restrict any use of the information to criminally investigate or prosecute any alcohol or drug abuse patient.[facility] HospitalIn the event this information is protected by the Federal Confidentiality of Alcohol and Drug Abuse Patient Records regulations: The Federal rules restrict any use of the information to criminally investigate or prosecute any alcohol or drug abuse patient.[facility] HospitalIn the event this information is protected by the Federal Confidentiality of Alcohol and Drug Abuse Patient Records regulations: The Federal rules restrict any use of the information to criminally investigate or prosecute any alcohol or drug abuse patient.[facility] HospitalIn the event this information is protected by the Federal Confidentiality of Alcohol and Drug Abuse Patient Records regulations: The Federal rules restrict any use of the information to criminally investigate or prosecute any alcohol or drug abuse patient.[facility] HospitalIn the event this information is protected by the Federal Confidentiality of Alcohol and Drug Abuse Patient Records regulations: The Federal rules restrict any use of the information to criminally investigate or prosecute any alcohol or drug abuse patient.[facility] HospitalIn the event this information is protected by the Federal Confidentiality of Alcohol and Drug Abuse Patient Records regulations: The Federal rules restrict any use of the information to criminally investigate or prosecute any alcohol or drug abuse patient.[facility] HospitalIn the event this information is protected by the Federal Confidentiality of Alcohol and Drug Abuse Patient Records regulations: The Federal rules restrict any use of the information to criminally investigate or prosecute any alcohol or drug abuse patient.[facility] HospitalIn the event this information is protected by the Federal Confidentiality of Alcohol and Drug Abuse Patient Records regulations: The Federal rules restrict any use of the information to criminally investigate or prosecute any alcohol or drug abuse patient.[facility] HospitalIn the event this information is protected by the Federal Confidentiality of Alcohol and Drug Abuse Patient Records regulations: The Federal rules restrict any use of the information to criminally investigate or prosecute any alcohol or drug abuse patient.[facility] HospitalIn the event this information is protected by the Federal Confidentiality of Alcohol and Drug Abuse Patient Records regulations: The Federal rules restrict any use of the information to criminally investigate or prosecute any alcohol or drug abuse patient.[facility] Care Teams (unrecognized sec tion and content) Pressure Tester Operator Relationship Specialty Start Date End Date Shaun Carlin MD PCP - General Family Practice 07/07/18 Pressure Tester Operator Relationship Specialty Start Date End Date Shaun Carlin MD PCP - General Family Practice 07/07/18 Pressure Tester Operator Relationship Specialty Start Date End Date Shaun Carlin MD PCP - General Family Practice 07/07/18 Pressure Tester Operator Relationship Specialty Start Date End Date Shaun Carlin MD PCP - General Family Practice 07/07/18 Pressure Tester Operator Relationship Specialty Start Date End Date Shaun Carlin MD PCP - General Family Practice 07/07/18 Pressure Tester Operator Relationship Specialty Start Date End Date Shaun Carlin MD PCP - General Family Practice 07/07/18 Pressure Tester Operator Relationship Specialty Start Date End Date Shaun Carlin MD PCP - General Family Practice 07/07/18 Pressure Tester Operator Relationship Specialty Start Date End Date Shaun Carlin MD PCP - General Family Practice 07/07/18 Pressure Tester Operator Relationship Specialty Start Date End Date Shaun Carlin MD PCP - General Family Practice 07/07/18 Pressure Tester Operator Relationship Specialty Start Date End Date Shaun Carlin MD PCP - General Family Practice 07/07/18 Pressure Tester Operator Relationship Specialty Start Date End Date Shaun Carlin MD PCP - General Family Practice 07/07/18 Pressure Tester Operator Relationship Specialty Start Date End Date Shaun Carlin MD PCP - General Family Practice 07/07/18 Pressure Tester Operator Relationship Specialty Start Date End Date Shaun Carlin MD PCP - General Family Practice 07/07/18 Pressure Tester Operator Relationship Specialty Start Date End Date Shaun Carlin MD PCP - General Family Medicine 07/07/18 Pressure Tester Operator Relationship Specialty Start Date End Date Shaun Carlin MD PCP - General Family Medicine 07/07/18 Pressure Tester Operator Relationship Specialty Start Date End Date Shaun Carlin MD PCP - General Family Medicine 07/07/18 Pressure Tester Operator Relationship Specialty Start Date End Date Shaun Carlin MD PCP - General Family Medicine 07/07/18 Pressure Tester Operator Relationship Specialty Start Date End Date Shaun Carlin MD PCP - General Family Medicine 07/07/18 Pressure Tester Operator Relationship Specialty Start Date End Date Shaun Carlin MD PCP - General Family Medicine 07/07/18 Pressure Tester Operator Relationship Specialty Start Date End Date Shaun Carlin MD PCP - General Family Medicine 07/07/18 Pressure Tester Operator Relationship Specialty Start Date End Date Shaun Carlin MD PCP - General Family Medicine 07/07/18 Pressure Tester Operator Relationship Specialty Start Date End Date Shaun Carlin MD PCP - General Family Medicine 07/07/18 Pressure Tester Operator Relationship Specialty Start Date End Date Shaun Carlin MD PCP - General Family Medicine 07/07/18 Pressure Tester Operator Relationship Specialty Start Date End Date Shaun Carlin MD PCP - General Family Medicine 07/07/18 Pressure Tester Operator Relationship Specialty Start Date End Date Shaun Carlin MD PCP - General Family Medicine 07/07/18 Pressure Tester Operator Relationship Specialty Start Date End Date Shaun Carlin MD PCP - General Family Medicine 07/07/18 Pressure Tester Operator Relationship Specialty Start Date End Date Shaun Carlin MD PCP - General Family Medicine 07/07/18 Pressure Tester Operator Relationship Specialty Start Date End Date Shaun Carlin MD PCP - General Family Medicine 07/07/18 Pressure Tester Operator Relationship Specialty Start Date End Date Shaun Carlin MD PCP - General Family Medicine 07/07/18 Pressure Tester Operator Relationship Specialty Start Date End Date Shaun Carlin MD PCP - General Family Medicine 07/07/18 Pressure Tester Operator Relationship Specialty Start Date End Date Shaun Carlin MD PCP - General Family Medicine 07/07/18 Pressure Tester Operator Relationship Specialty Start Date End Date Shaun Carlin MD PCP - General Family Medicine 07/07/18 Pressure Tester Operator Relationship Specialty Start Date End Date Shaun Carlin MD PCP - General Family Medicine 07/07/18 Pressure Tester Operator Relationship Specialty Start Date End Date Shaun Carlin MD PCP - General Family Medicine 07/07/18 Pressure Tester Operator Relationship Specialty Start Date End Date Shaun Carlin MD PCP - General Family Medicine 07/07/18 Pressure Tester Operator Relationship Specialty Start Date End Date Shaun Carlin MD PCP - General Family Medicine 07/07/18 Pressure Tester Operator Relationship Specialty Start Date End Date Shaun Carlin MD PCP - General Family Medicine 07/07/18 Pressure Tester Operator Relationship Specialty Start Date End Date Shaun Carlin MD PCP - General Family Medicine 07/07/18 Pressure Tester Operator Relationship Specialty Start Date End Date Shaun Carlin MD PCP - General Family Medicine 07/07/18 Pressure Tester Operator Relationship Specialty Start Date End Date Shaun Carlin MD PCP - General Family Medicine 07/07/18 Pressure Tester Operator Relationship Specialty Start Date End Date Shaun Carlin MD PCP - General Family Medicine 07/07/18 Pressure Tester Operator Relationship Specialty Start Date End Date Ritchie Lieberman MD [address] [facility] [place] [address] PCP - General Family Medicine 07/05/24 PodlogHui ac APRN.DIRECTOR RECORDS MANAGEMENT [address] [facility] [place] [address] Family Medicine 07/05/24 Pressure Tester Operator Relationship Specialty Start Date End Date Ritchie Lieberman MD [address] [facility] [place] [address] PCP - General Family Medicine 07/05/24 PodlogarHui APRN.DIRECTOR RECORDS MANAGEMENT [address] [facility] [place] [address] Family Medicine 07/05/24 Pressure Tester Operator Relationship Specialty Start Date End Date Ritchie Lieberman MD [address] [facility] [place] [address] PCP - General Family Medicine 07/05/24 Podlogar, Hui, RECORDS MANAGEMENT ANALYST.DIRECTOR RECORDS MANAGEMENT [address] [facility] [address] Family Medicine 07/05/24 Pressure Tester Operator Relationship Specialty Start Date End Date Ritchie Lieberman MD [address] [facility] [address] PCP - General Family Medicine 07/05/24 Podlogar, ARELY AmesN.DIRECTOR RECORDS MANAGEMENT [address] [facility] [address] Family Medicine 07/05/24 Pressure Tester Operator Relationship Specialty Start Date End Date Ritchie Lieberman MD [address] [facility] [place] [address] PCP - General Family Medicine 07/05/24 Podlogar, Hui, RECORDS MANAGEMENT ANALYST.DIRECTOR RECORDS MANAGEMENT [address] [facility] [place] [address] Family Medicine 07/05/24 Pressure Tester Operator Relationship Specialty Start Date End Date Ritchie Lieberman MD [address] [facility] [place] [address] PCP - General Family Medicine 07/05/24 Podlogar, Hui, RECORDS MANAGEMENT ANALYST.DIRECTOR RECORDS MANAGEMENT [address] [facility] [place] [address] Family Medicine 07/05/24 Podlogar, Hui, RECORDS MANAGEMENT ANALYST.DIRECTOR RECORDS MANAGEMENT [address] [facility] [place] [address] Sound Controller Family [facility] 08/21/24 Pressure Tester Operator Relationship Specialty Start Date End Date Ritchie Lieberman MD [address] [facility] [address] PCP - General Family Medicine 07/05/24 Podlogar, Hui, RECORDS MANAGEMENT ANALYST.DIRECTOR RECORDS MANAGEMENT [address] [facility] [address] Family Medicine 07/05/24 Podlogar, Hui, RECORDS MANAGEMENT ANALYST.DIRECTOR RECORDS MANAGEMENT [address] [facility] [address] [facility] 08/21/24 Pressure Tester Operator Relationship Specialty Start Date End Date Ritchie Lieberman MD [address] [place] [address] PCP - General Family Medicine 07/05/24 Podlogar, Hui, RECORDS MANAGEMENT ANALYST.DIRECTOR RECORDS MANAGEMENT [address] [facility] [place] [address] Family Medicine 07/05/24 Podlogar, Hui, RECORDS MANAGEMENT ANALYST.DIRECTOR RECORDS MANAGEMENT [address] [facility] [address] [facility] 08/21/24 Pressure Tester Operator Relationship Specialty Start Date End Date Ritchie Lieberman MD [address] [place] [address] PCP - General Family Medicine 07/05/24 Podlogar, Hui, RECORDS MANAGEMENT ANALYST.DIRECTOR RECORDS MANAGEMENT [address] [place] [address] Family Medicine 07/05/24 PodHui li, RECORDS MANAGEMENT ANALYST.DIRECTOR RECORDS MANAGEMENT [address] [facility] [place] [address] Sound Controller Family Medicine 08/21/24 Kinza Basilio APRN.DIRECTOR RECORDS MANAGEMENT [address] [facility] [place] [address] Sound Controller Family Medicine 11/26/24 12/05/24 Kinza Basilio APRN.DIRECTOR RECORDS MANAGEMENT [address] [facility] [place] [address] Sound Controller Family Medicine 12/06/24 Pressure Tester Operator Relationship Specialty Start Date End Date Ritchie Lieberman MD [address] [facility] [place] [address] PCP - General Family Medicine 07/05/24 PodlogarHui, RECORDS MANAGEMENT ANALYST.DIRECTOR RECORDS MANAGEMENT [address] [facility] [place] [address] Family Medicine 07/05/24 Podlogar, Hui, RECORDS MANAGEMENT ANALYST.DIRECTOR RECORDS MANAGEMENT [address] [facility] [place] [address] Sound Controller Family Medicine 08/21/24 Kinza Basilio APRN.DIRECTOR RECORDS MANAGEMENT [address] [facility] [place] [address] Sound Controller Family Medicine 12/06/24 Pressure Tester Operator Relationship Specialty Start Date End Date Ritchie Lieberman MD [address] [facility] [place] [address] PCP - General Family Medicine 07/05/24 Podlogar, Hui, RECORDS MANAGEMENT ANALYST.DIRECTOR RECORDS MANAGEMENT [address] [place] [address] Family [facility] 07/05/24 Hui Valdes APRN.DIRECTOR RECORDS MANAGEMENT [address] [place], [place] [address] [facility] 08/21/24 Kinza Basilio APRN.DIRECTOR RECORDS MANAGEMENT [address] [place], [place] [address] [facility] 12/06/24 Team Status: Active Member Role Status Dates Hui Podlogar 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, 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-C Primary Care Provider Active Team Status: Inactive Member Role Status Dates Dr. Flora Prieto DO Attending Provider Active Start: January 15, 2025 End: January 15, 2025 Dr. Flora Prieto DO Emergency Provider Active Start: January 15, 2025 End: January 15, 2025 Hui Podlogar 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, 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-C Primary Care Provider Active Start: January 15, 2025 End: January 15, 2025 Team Status: Inactive Member Role Status Dates Hui Podlogar 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, 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-C Primary Care Provider Active Start: February 02, 2025 End: February 02, 2025 uHi Podlogar 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, 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-C Referring Provider Active Start: February 02, 2025 End: February 02, 2025 Dr. Desean Rodriguez MD Attending Provider Active Start: February 02, 2025 End: February 02, 2025 Team Status: Inactive Member Role Status Dates Hui Podlogar 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, 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-C Primary Care Provider Active Start: February 14, 2025 End: February 14, 2025 Dr. Desean Rodriguez MD Attending Provider Active Start: February 14, 2025 End: February 14, 2025 Dr. Desean Rodriguez MD Referring Provider Active Start: February 14, 2025 End: February 14, 2025 Team Status: Active Member Role Status Dates Hui Podlogar 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, 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-C Primary Care Provider Active Start: February 14, 2025 Dr. Desean Rodriguez MD Attending Provider Active Start: February 14, 2025 Dr. Desean Rodriguez MD Referring Provider Active Start: February 14, 2025 Dr. Desean Rodriguez MD Other Provider Active St art: February 14, 2025 Team Status: Inactive Member Role Status Dates Hui Valdes 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, 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-C Primary Care Provider Active Start: February 21, [...] BE BASED ON THE PRIMARY CLINICAL RECORDS. [employer] provides no warranty or guarantee of the accuracy or completeness of information in this document.
[2025-02-22] MEDS: 0.9% Normal Saline (1000mL) 1,000 ML 125 ML IV ×2 (04:51→15:41)
[2025-02-22] MEDS: metroNIDAZOLE 500 MG/100 ML BAG 100 MG IV ×2 (04:55→19:49)
--- NOTE | 2025-02-22 07:10 | HP.PCM.SX_ITS ---
HPI - General General Date of Admission: 02/22/25 HPI Narrative DANE CRENSHAW, is a 39 F who presents with abdominal pain. The patient is 1 week postop from a an incarcerated ventral hernia repair. She was doing well until yesterday and started developing abdominal pain. She does state that she vomited before admission. She says she is not having a fever but she does describe chills. She does not have any pain in her lower abdomen. Her pain is in the right upper quadrant. COUNTS INCLUDE 234 BEDS AT THE [facility] Medical History (Updated 02/22/25 @ 04:47 by Trinity Paulino) Hernia Wears glasses Wears dentures Depression Bladder disease Low iron Back pain Migraine headache History of ulceration Shortness of breath on exertion Vapes nicotine containing substance Hx of Tachycardia IUD (intrauterine device) in place Home Medications ?Medication ?Instructions ?Recorded ?Last Taken ?Type atomoxetine 80 mg capsule 80 mg PO QAM 02/02/25 Unknow n History metoprolol succinate 25 mg 25 mg PO QDAY HEART RATE 02/20/25 History tablet,extended release 24 hr solifenacin 10 mg tablet 5 mg PO QDAY OAB 02/02/25 History venlafaxine 75 mg capsule,extended 75 mg PO QAM Unknown History release 24 hr acetaminophen 500 mg capsule 1,000 mg PO Q6H PRN pain 02/21/25 02/21/25 History sumatriptan succinate 100 mg tablet 100 mg PO Q2H PRN migraine 02/21/25 Unknown History Allergy/AdvReac Type Severity Reaction Status Date / Time amoxicillin Allergy Unknown unknown Verified 02/21/25 23:32 Family History Son Asthma Grandmother Diabetes Breast cancer Father Hypertension Surgical History History of esophagogastroduodenoscopy (EGD) Previous section Social History Smoking Status: Current every day smoker tobacco type: e-cigarettes quit status: not considering quitting ROS Constitutional Constitutional: Reports chills; Denies anorexia, fatigue or fever(s) Eyes Eyes: Denies blurry vision ENT HEENT: Denies abnormal hearing Respiratory/Chest Respiratory/Chest: Denies cough or dyspnea Gastrointestinal Gastrointestinal: Reports abdominal pain and vomiting; Denies change in bowel habits, coffee ground emesis or constipation Genitourinary Genitourinary: Denies change in urinary stream Musculoskeletal Musculoskeletal: Denies abnormal gait Integumentary Integumentary: Denies jaundice Neurologic Neurologic: Denies abnormal gait Psychiatric Psychiatric: Denies anxiety Endocrine Endocrinology: Denies flushing Vital Signs Vital Signs Vital Signs: 02/21/25 23:30 02/22/25 01:29 02/22/25 03:00 Temperature 98.1 F Temperature Source Oral Pulse Rate 84 70 72 Respiratory Rate 20 H 18 18 Blood Pressure 128/79 H 150/96 H 148/60 H Blood Pressure Mean 95 114 89 Blood Pressure Source Blood Pressure Position Blood Pressure Location Pulse Ox 100 99 Oxygen Delivery Method Room Air Room Air 02/22/25 04:06 02/22/25 04:50 Temperature 98.6 F 98 F Temperature Source Oral Pulse Rate 82 71 Respiratory Rate 16 16 Blood Pressure 155/92 H 137/78 H Blood Pressure Mean 113 97 Blood Pressure Source Monitor Blood Pressure Position Semi-Fowlers Blood Pressure Location Right Arm Pulse Ox 100 100 Oxygen Delivery Method Room Air Weight Weight: 165 lb 12.602 oz Body Mass Index (BMI) 28.4 Physical Exam Const oriented x3 and no apparent distress Resp normal respiratory effort Cardio regular rate and regular rhythm GI soft to palpation Palpation: tender RUQ Extremity normal to inspection Results Lab / Micro Data 02/22/25 00:48 02/22/25 00:48 Labs: Laboratory Results - last 24 hr 02/22/25 00:48: WBC 12.6 H, RBC 4.09 L, Hgb 12.7, Hct 37.5, MCV 91.7, MCH 31.1, MCHC 33.9, RDW Std Deviation 41.1, RDW Coeff of Conc[place] 12.3, Plt Count TNP, MPV 9.5, Immature Gran % (Auto) 0.200, Neut % (Auto) 66.6, Lymph % (Auto) 23.7, [place] % (Auto) 7.2, Eos % (Auto) 1.5, Baso % (Auto) 0.8, Absolute Neuts (auto) 8.4 H, Absolute Lymphs (auto) 2.99, Nucleated RBC % 0, Differential Comment SCANNED, Platelet Estimate ADEQUATE, Sodium 139, Potassium 4.0, Chloride 105, Carbon Dioxide 21.6, Anion Gap 12, BUN 10, Creatinine 0.79, Estim Creat Clear Calc 95.38, Est GFR (MDRD) Non-Af 97, BUN/Creatinine Ratio 13.0, Glucose 92, Calcium 9.1, Total Bilirubin < 0.15, AST 38 H, ALT 18, Alkaline Phosphatase 59, Total Protein 6.6, Albumin 4.0, Globulin 2.6, Albumin/Globulin Ratio 1.6, Lipase 37 Imaging Radiology Impression Gallbladder Ultrasound 02/22/25 02:16 IMPRESSION: Findings suggest acute calculus cholecystitis. Gallbladder hydrops. Fatty hepatomegaly. Findings were discussed with Dr. Smith at 3:41 am Reading Location: [place] [address] Assessment & Plan Assessment/Plan (1) Acute cholecystitis: PLAN: The patient is postoperative day 7 from ventral hernia repair with Dr. Rodriguez. I will discussed the case with him this morning. one of us will take her for laparoscopic cholecystectomy this afternoon. Continue n.p.o. with antibiotics. Jerrell Garcia MD Pager: [facility] [address] [place] [address], [address] [place] [address] Office:
[2025-02-22 07:21] LABS: Absolute Lymphocyte Count 3.36 X10^3/uL (0.83-4.51); Absolute Neutrophil Count 6.8 X10^3/uL (2.0-7.7); Basophil# 0.08 X10^3/uL; Basophil% 0.7 % (0-1); Eosinophil# 0.21 X10^3/uL; Eosinophils% 1.9 % (0-5); Hematocrit 32.8 % (37-47); Hemoglobin 11.1 g/dL (12.0-15.0); Lymphocyte # 3.36 X10^3/ul (0.83-4.51); Lymphocyte % 29.6 % (19-41); Mean Corp Hgb Conc 33.8 g/dL (32-36); Mean Corpuscular Volume 91.6 fL (81-99); Mean Platelet Vol. 9.3 fl (6.2-12.0); Monocyte# 0.85 X10^3/uL; Monocyte% 7.5 % (0-10); NRBC Flagged by Analyzer 0 % (0-5); Neutrophil % 59.9 % (47-70); Platelet Count 362 K/mm3 (150-450); RBC Distribution Width CV 12.1 % (11.6-14.6); RBC Distribution Width SD 40.5 fl (35.1-43.9); Red Blood Count 3.58 M/mm3 (4.2-5.4); White Blood Count 11.3 K/mm3 (4.4-11.0)
[2025-02-22 07:45] LABS: ALB/GLOB Ratio 1.8 RATIO (0.9-2.4); AST(SGOT) 17 U/L (<=31); Alanine Aminotransfer ALT/SGPT 15 U/L (<=34); Albumin, Serum 3.8 g/dL (3.5-5.0); Alkaline Phosphatase 46 U/L (35-104); Anion Gap 11 (5-15); BUN 8 mg/dL (4-19); BUN/Creat Ratio 12.3 RATIO (10-20); Calcium,Total 8.5 mg/dL (7.6-11.0); Chloride 109 mmol/L (98-108); Creatinine, Serum 0.67 mg/dL (0.70-1.20); EST Glomerular Filtration Rate 114 (>60); Estimated Creatinine Clearance 111.94 ml/min (50-250); Globulin 2.1 g/dL (2.2-4.2); Glucose 85 mg/dL (70-99); Potassium 3.3 mmol/L (3.3-5.1); Protein, Total 5.9 g/dL (5.9-8.4); Sodium Level 141 mmol/L (133-145)
[2025-02-22] MEDS: Ciprofloxacin 400 MG/200 ML BAG 200 MG IV ×2 (09:28→21:00)
[2025-02-22] MEDS: 0.9% Saline Lock 10 ML Syringe IV ×2 (09:35→17:44)
--- NOTE | 2025-02-22 11:08 | CASEMGMT ---
HARRIET HESS Assessment: Face to Face with pt for initial transition planning/care coordination assessment. HARRIET HESS introduced self and role at [facility], pt voices understanding and consents to assessment. Pt is A&O x4 and answers all questions appropriately at this time. Pt lying in bed in no distress. Care providers, pharmacy, and demographics verified/updated. Admitting Dx: acute cholecystitis Strata Score: 1 PCP:Podlogar Specialists:Jennifer, LORRI Starks Pharmacy: [facility] Retail Insurance: [facility] Prescription Benefit: yes LNOK: Fletcher Olivera, Living Arrangements: Pt lives with and 2 children in a single story home with no steps to enter. Pt reports she is I in ADL/IADLs and denies concerns at home. Transportation: Pt drives self and denies concerns with transportation. DME:Denies HHC/SNF: Denies hx of Pt states no concerns with going home at time of dc. Pt states no further concerns/needs. CM to follow. Advised pt to ask CM if any further questions/concerns/needs arise, voices understanding. Pt Goal: Home Plan: Home Jose LARIOS CM
[2025-02-22] MEDS: SUMAtriptan 6 MG/0.5 ML Vial SC ×2 (15:40→22:32)
[2025-02-22 22:56] LABS: Internal QC Validated? YES +Cl - CLEAR BKGD; Pregnancy, Urine Negative Negative
[2025-02-23] VITALS (16 sets, daily range): BP systolic 123–152; BP diastolic 80–97; PULSE 78–105; RESP 16–18; TEMP 36.2–37.5; O2SAT 93–100; BMI 28.3
[2025-02-23] MEDS: 0.9% Normal Saline (1000mL) 1,000 ML 125 ML IV ×2 (02:01→17:56)
[2025-02-23] MEDS: metroNIDAZOLE 500 MG/100 ML BAG 100 MG IV ×3 (04:55→22:34)
--- NOTE | 2025-02-23 06:00 | EKG12_ITS ---
Test Reason : SOB Blood Pressure : */* mmHG Vent. Rate : 79 BPM Atrial Rate : 79 BPM P-R Int : 188 ms QRS Dur : 78 ms QT Int : 380 ms P-R-T Axes : 60 -5 25 degrees QTcB Int : 435 ms Normal sinus rhythm Normal ECG No previous ECGs available Confirmed by Joseluis Peralta ([id number]), news copy editor LAURA MACHUCA ([id number]) on 02/23/2025 10:41:32 AM Referred By: [email or web address] Confirmed By: Joseluis Peralta
[2025-02-23] MEDS: Ciprofloxacin 400 MG/200 ML BAG 200 MG IV ×2 (09:25→21:24)
[2025-02-23] MEDS: SUMAtriptan 6 MG/0.5 ML Vial SC (11:12)
--- NOTE | 2025-02-23 12:38 | PCM.PRE.AN2 ---
ASA Classification* ASA Classification ASA Classification: 2 Assessment & Plan Anesthesia* Anesthesia Assessment Anesthesia Assessment: Discussed sedation and/or anesthesia options, risks, benefits, and alternatives with patient/parents/legal guardian/POA. Questions invited. The patient/parents/legal guardian/POA seems to understand and agrees to proceed with anesthesia plan. Reviewed the physical assessment, medical history, allergy history and patient home medications list prior to surgery/procedure/anesthetic and documented any changes. Performed airway and anesthesia risk assessments. Anesthesia Type Anesthesia Type: General Anesthesia Focused Assessment* Temperature: 98.6 F Pulse Rate: 85 Blood Pressure: 140/86 Respiratory Rate: 16 Pulse Ox: 100 Airway Assessment Mouth opens: >3 cm Mallampati Score: II Labs Anesthesia Preop lab: CBC WBC 11.3 K/mm3 (4.4-11.0) H 02/22/25 06:21 02/22/25 RBC 3.58 M/mm3 (4.2-5.4) L 02/22/25 06:02/22/25 Hgb 11.1 g/dL (12.0-15.0) L 02/22/25 06:21 02/22/25 Hct 32.8 % (37-47) L 02/22/25 06:21 02/22/25 Plt Count 362 K/mm3 (150-450) 02/22/25 06:21 02/22/25 CHEMISTRY Potassium 3.3 mmol/L (3.3-5.1) 02/22/25 06:21 02/22/25 Sodium 141 mmol/L (133-145) 02/22/25 06:21 02/22/25 BUN 8 mg/dL (4-19) 02/22/25 06:21 02/22/25 Creatinine 0.67 mg/dL (0.70-1.20) L 02/22/25 06:21 02/22/25 Glucose 85 mg/dL (70-99) 02/22/25 06:21 02/22/25 COAG Urine Test Negative Negative 02/22/25 21:17 02/22/25 Pre-Assessment Diagnosis/Proposed Procedure Planned Operative Procedure(s): Laparoscopic cholecystectomy with cholangiograms Anesthesia History 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 When Was Last Pacemaker Check QUESTION #4 FULL TEXT: You/Your Family Experience fever (hyperthermia) with Anesthesia Last Oral Intake Last Oral intake: Last Oral Intake NPO since 00:00 02/23/25 11:16 Meds taken in AM with sips of No 02/23/25 11:16 water? Meds patient instructed to take am of surgery PONV PONV - hotel maintenance technician: PONV - hotel maintenance technician Female HX of Motion Sickness HX of N/V After Surgery Non-Smoker Duration of Surgery greater than 60 minutes Number of Risk Factors PONV Score Height & Weight Height & Weight: Anesthesia: Height & Weight Height 5 ft 4.17 in 02/23/25 11:16 Weight: 75.2 kg 02/23/25 11:16 Body Mass Index (BMI) 28.3 02/23/25 11:16 Respiratory Assessment Respiratory Assessment - hotel maintenance technician: Respiratory Tract Infection Hx - hotel maintenance technician Hx Respiratory Tract Infection No 02/22/25 06:21 STOP Sleep Apnea STOP Sleep Apnea - hotel maintenance technician: STOP Sleep Apnea - hotel maintenance technician Hx Hypertension No 02/22/25 04:45 Hx Sleep Apnea No 02/22/25 04:45 CPAP BIPAP Do you snore loudly (louder No 02/22/25 04:45 than talking or can be heard Do you often feel tired/ No 02/22/25 04:45 fatigued/ sleepy during daytime? Has anyone observed you stop No 02/22/25 04:45 breathing during sleep? STOP Results Negative 02/22/25 04:45 QUESTION #5 FULL TEXT : Do you snore loudly (louder than talking or can be heard through closed doors)? Tobacco Use History Tobacco Use History - hotel maintenance technician: Tobacco Use History - hotel maintenance technician Tobacco Use Smoking Status Current every day smoker 02/22/25 08:11 Hx Tobacco Use Yes 02/22/25 04:45 Years Smoking Packs Smoked per Day Smoking Cessation Date was within the last 15 years Hx Smoking Cessation Date Hx Smoking Cessation Counseling Hematologic Medial History Hematologic Hx - hotel maintenance technician: Hematologic Medical Hx - field representative Hx of Blood Transfusion No 02/22/25 04:45 Hx of Transfusion in last 3 No 02/22/25 04:45 Months Date of Last Transfusion (if within last 3 months) Ever experience any problems No 02/22/25 04:45 with transfusion(s)? Specify any problems Hx of Preganancy in last 3 No 02/22/25 04:45 Months Nurse Filling Out Transfusion DREDICK 02/22/25 04:45 & Questions: Date: 02/22/25 02/22/25 04:45 Time: 04:45 02/22/25 04:45 Patient unable to answer at this time (ie. confused, unrespo /Reproduction History /Reproductive History - hotel maintenance technician: /Reproductive Hx- hotel maintenance technician Hx Now No 02/22/25 06:21 Gestational Age (in weeks): EDC: Hx Hx Para Hx Section SAB No 02/22/25 06:21 Active Medications Active Medications: Current Medications Generic Name Dose Route Start Last Admin Trade Name Freq PRN Reason Stop Dose Admin Sodium Chloride 1,000 mls @ 125 mls/hr 02/22/25 04:05 02/23/25 02:01 IV 125 mls/hr .Q8H MINOR Administration Ciprofloxacin 400 mg in 200 mls @ 200 mls/hr 02/22/25 10:00 02/23/25 10:25 Cipro IV Infused Q12 MINOR Infusion Metronidazole 500 mg in 100 mls @ 100 mls/hr 02/22/25 10:00 02/23/25 06:47 Flagyl IV Infused Q8 MINOR Infusion Sodium Chloride 250 mls @ 15 mls/hr 02/22/25 04:32 IV .[id number] PRN Saline Flush Sodium Chloride 250 mls @ 15 mls/hr 02/22/25 04:32 IV .[id number] PRN Additional IVPB Infusion Morphine Sulfate 2 - 4 mg 02/22/25 04:04 Morphine 2 Mg/Ml Syringe IV Q2H PRN PRN Pain Score 4-10 Morphine Sulfate 2 - 4 mg 02/22/25 04:11 02/22/25 17:45 Morphine 4 Mg/Ml Syringe IV 4 mg Q2H PRN PRN Administration Pain Score 4-10 Ondansetron HCl 4 mg 02/22/25 04:06 Ondansetron 4 Mg/2 Ml Vial IV Q6H PRN PRN NAUSEA/VOMITING Sodium Chloride 10 - 40 ml 02/22/25 04:04 02/22/25 17:44 0.9% Saline Lock 10 Ml Syringe IV 10 ml UD PRN Administration SALINE FLUSH Sodium Chloride 10 - 40 ml 02/22/25 04:06 0.9% Saline Lock 10 Ml Syringe IV UD PRN SALINE FLUSH Sodium Chloride 10 - 40 ml 02/22/25 04:32 0.9% Saline Lock 10 Ml Syringe IV UD PRN SALINE FLUSH Sumatriptan Succinate 6 mg 02/22/25 15:19 02/23/25 11:12 Sumatriptan 6 Mg/0.5 Ml Vial SC 6 mg BID PRN Administration HEADACHE PFSH Medical History Hernia Wears glasses Wears dentures Depression Bladder disease Low iron Back pain Migraine headache History of ulceration Shortness of breath on exertion Vapes nicotine containing substance Hx of Tachycardia IUD (intrauterine device) in place Home Medications ?Medication ?Instructions ?Recorded ?Last Taken ?Type atomoxetine 80 mg capsule 80 mg PO QAM 02/02/25 Unknown History metoprolol succinate 25 mg 25 mg PO QDAY HEART RATE 02/02/25 02/20/25 History tablet,extended release 24 hr solifenacin 10 mg tablet 5 mg PO QDAY OAB 02/02/25 02/20/25 History venlafaxine 75 mg capsule,extended 75 mg PO QAM 02/02/25 Unknown History release 24 hr acetaminophen 500 mg capsule 1,000 mg PO Q6H PRN pain 02/21/25 02/21/25 History sumatriptan succinate 100 mg tablet 100 mg PO Q2H PRN migraine 02/21/25 Unknown History Allergy/AdvReac Type Severity Reaction Status Date / Time amoxicillin Allergy Unknown unknown Verified 02/21/25 23:32 Family History Son Asthma Grandmother Diabetes Breast cancer Father Hypertension Surgical History History of esophagogastroduodenoscopy (EGD) Previous section Social History Smoking Status: Current every day smoker tobacco type: e-cigarettes quit status: not considering quitting Review of Systems (Anesthesia) ROS Narrative System reviewed and no additional complaints, except as documented.
--- NOTE | 2025-02-23 13:00 | GALL_PTH ---
PATIENT: DANE CRENSHAW LOC: [facility]3 U#:[id number] AGE/SX: 39/F ROOM: MS311 RE02/22/[address]: Dr. Jerrell Garcia MD : 1985 BED: 1 DIS: 02/24/2025 SPEC #: [id number] RECD: 02/23/25 14:54 STATUS: OLINDA ACKERMAN #: [id number] KASEY: 02/23/25 13:[address]: Jerrell Garcia DEPT: SURGICAL PATHOLOGY RECD BY: Shaun Armas ENTERED: 02/23/25 15:35 SP TYPE: QI GOMEZ DR: Hui Valdes, CORRECTIONAL CAPTAIN-C Tissues: A - Gallbladder, NOS Procedures: Surgery Specimen Level III HEADER OPERATION: Laparoscopic, cholecystectomy with IOC PRE-OP DIAGNOSIS: Acute cholecystitis TISSUE SUBMITTED: A- Gallbladder MICROSCOPIC DIAGNOSIS A. 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 GROSS DESCRIPTION A. Received in formalin labeled with the patient's name and date of . Designated as gallbladder is a 12.0 x 4.1 x 3.6 cm schmidt-pink edematous and intact gallbladder with attached, patent cystic duct (inked black, shaved) and an adjacent 1.9 cm lymph node. There are focal serosal adhesions. The gallbladder contains light yellow tenacious bile admixed with numerous multifaceted green biliary calculi, 0.3 cm to 0.8 cm. The mucosa is pale schmidt and edematous with patchy erythema and a maximum wall thickness of 0.3 cm. No cholesterolosis is grossly appreciated. Process Development Technician sections are submitted in 2 cassettes follows: A1: Margin, lymph node, serosal adhesion A2: Cross-sections [facility] 02/23/2025 CPT:53877
[2025-02-23] MEDS: Bupiv/Epi 0.25% 30 ML Vial (13:03)
--- NOTE | 2025-02-23 14:10 | RAD_ITS ---
PROCEDURE: CHOLANGIOGRAM/ O R,INITIAL 02/23/2025 REASON FOR EXAM: LAP JOSSELYN W/ IOC TECHNIQUE: Intraoperative cholangiogram was performed by the surgeon. Imaging was submitted. Radiation report: 7.2 seconds of fluoroscopy. 3.83 mGy. COMPARISON: None FINDINGS: Contrast was injected. There is opacification of the intra and extrahepatic biliary ducts. No radiographic abnormality is seen. There is free flow of contrast into the duodenum. RAD/Cholangiogram/ O R,Initial IMPRESSION: Unremarkable intraoperative cholangiogram. Reading Location: [place] [address]
--- NOTE | 2025-02-23 14:54 | OP.PCM_ITS ---
Problems Associated Problem List Diagnoses (1) Acute cholecystitis: Procedures Digestive 40xxx-49xxx: 89572 CHOLECYSTECTOMY; WITH CHOLANGIOGRAPHY Operative Report (Standard) Operative Information Date of Procedure: 02/23/25 Pre-Operative Diagnosis: Acute cholecystitis Post-Operative Diagnosis: Acute cholecystitis Surgery/Procedure Performed: Laparoscopic cholecystectomy with intraoperative cholangiograms central supply worker: Yes Stonecutter Hand: Estrella Cooper Tasks completed by residential living assistant: Closing, Retracting and Other Additional operations manager assistant?: No Type of Anesthesia: General and Local RN Documented Start/Stop Times: Operation Date: 02/23/25 13:00 Case Time Into Pre-Op 02/23/25 12:21 Anesthesia Start 02/23/25 13:14 Into Room 02/23/25 13:14 Procedure Start 02/23/25 13:34 Procedure End 02/23/25 14:41 Anesthesia End 02/23/25 14:46 Out of Room 02/23/25 14:46 Procedure Start Time: 13:34 Procedure Stop Time: 14:41 Select all DRAINS/GRAFTS/IMPLANTS that apply: None Estimated Blood Loss: 10 mL Specimen collected: Yes Description of specimen(s) removed: Gallbladder and contents Description of surgery: The patient is a 39-year-old female recently seen through the office originally for an umbilical hernia. She underwent hernia repair with mesh about a week ago. Less than a week after the surgery she presented to the emergency room with right upper quadrant pain. Imaging showed gallbladder wall thickening consistent with acute cholecystitis. Plans were made to admit the patient and plan for cholecystectomy. Preoperatively, we discussed the details of the planned procedure including the risks benefits and alternatives. She wished to proceed. She was brought to the operating room today following informed consent. She was placed supine on the operative table with arms outstretched arm boards. General endotracheal anesthesia was induced. Once adequately sedated, the abdomen was prepped and draped in the usual sterile manner. Due to the fact that she had a previous midline incision just above the umbilicus, an optical trocar was placed on the right side of the abdomen. This was a 5 mm trocar. This was placed without incident. Once in place the abdomen is then fully insufflated with CO2 gas. A 5 mm 0 degree scope was inserted. There were no signs of bowel or vascular injury. Another 5 mm trocar was placed just medial to this initial trocar. Another 5 mm trocar was placed in the lower mid line for the 5 mm scope. Lastly a 10 mm trocar was placed under direct visualization in the epigastric region. All of these were placed under direct visualization without difficulty. The gallbladder was identified. It was distended and elongated. It was grasped near the fundus and was reflected in a cephalad direction. The infundibulum of the gallbladder was identified. There was some filmy yet edematous adhesions to the undersurface of the gallbladder. These were carefully taken down. The peritoneum on either side of the gallbladder was then scored using electrocautery. This provided better exposure to the infundibulum and cystic duct/cystic artery region. The duct and artery were then dissected out circumferentially. The lower portion of the gallbladder was dissected off of the liver bed in order to obtain a critical view of safety. There were 2 and only 2 structures visible going to and from the gallbladder. The cystic duct was clipped proximally with a 10 mm clip compensation expert. A small ductotomy was made using curved scissors. Cholangiogram catheter was then inserted and cholangiograms were then performed using Omnipaque. This showed good opacification of the biliary tree without any obvious filling defects. The cholangiogram catheter was then removed. 3 metallic clips were placed proximally on the duct. This was then transected. The artery was clipped and transected in a similar manner. The gallbladder was then cauterized off the undersurface of the liver. There was quite a bit of edema in the tissue planes. Once the gallbladder was free was placed into a bag and brought out through the 10 mm trocar site. The trocar was then replaced. The right upper quadrant was then copiously irrigated with a liter of saline. There is no spillage of bile during the course of the operation. Hemostasis was excellent. There was some adhesions to the undersurface of the mesh. These adhesions were left in place in order to protect the mesh from any potential bacteria from the gallbladder. The fascia at the 10 mm trocar site was closed using no PDS with the aid of the fascial closure device. The remaining trocars were opened up and insufflation was allowed to escape. Local anesthetic was injected into each of the incisions. The incisions were then closed with 4-0 Vicryl. Skin glue was applied as dressing. She was awakened from anesthesia and taken recovery in good condition. Surgical Findings: Normal cholangiogram Complications Complications: No Admit VTE Documentation VTE Present on Admission: No VTE Mechan Device Prophylaxis: SCD's VTE Pharm Prophylaxis ordered?: Yes
--- NOTE | 2025-02-23 14:54 | PCM.POST.ANE ---
Anesthesia: Postop Eval I Current Vital Signs Temperature: 97.2 F Pulse Rate: 103 Blood Pressure: 147/93 Respiratory Rate: 18 Pulse Ox: 94 Assessment Airway patent: Yes Spontaneous unlabored respirations: Yes nausea: No Vomiting: No Anesthesia Complication: No Fluid Hydration Crystalloid volume administer (ml): 1,000 Total IV fluid infused: 1,000 Progress Note Anesthesia document: Postop Eval 1 completed: Yes
--- NOTE | 2025-02-23 15:30 | POSTOPAN2_ITS ---
Anesthesia Postop Eval I Sum Postop Eval Completion status Anesthesia document: Postop Eval 1 completed: Yes Anesthesia Postop Eval I Summary Anesthesia Postop Eval I Summary: Anesthesia Postop Eval I: Assessment Summary Airway patent Yes 02/23/25 14:54 CAN BANDER OPERATOR.TNES Spontaneous unlabored Yes 02/23/25 14:54 CAN BANDER OPERATOR.TNES respirations Mental status nausea No 02/23/25 14:54 CAN BANDER OPERATOR.TNES Vomiting No 02/23/25 14:54 CAN BANDER OPERATOR.TNES Anesthesia Postop Eval I: Fluid Summary Crystalloid volume administer 1,000 02/23/25 14:54 CAN BANDER OPERATOR.TNES (ml) Colloids volume administered ( ml) Blood Product volume administered (ml) Total IV fluid infused 1,000 02/23/25 14:54 CAN BANDER OPERATOR.TNES Anesthesia Postop Eval I: Summary Notes Anesthesia Complication No 02/23/25 14:54 CAN BANDER OPERATOR.TNES Anesthesia Complication Comment: Post-operative progress note Anesthesia: Postop Eval II Evaluation Mental status: Awake Pain Level: 0 nausea: No Vomiting: No
--- NOTE | 2025-02-23 15:30 | PCM.POSTANE2 ---
Anesthesia Postop Eval I Sum Postop Eval Completion status Anesthesia document: Postop Eval 1 completed: Yes Anesthesia Postop Eval I Summary Anesthesia Postop Eval I Summary: Anesthesia Postop Eval I: Assessment Summary Airway patent Yes 02/23/25 14:54 MARKETING AND PROMOTIONS MANAGER.TNES Spontaneous unlabored Yes 02/23/25 14:54 MARKETING AND PROMOTIONS MANAGER.TNES respirations Mental status nausea No 02/23/25 14:54 MARKETING AND PROMOTIONS MANAGER.TNES Vomiting No 02/23/25 14:54 MARKETING AND PROMOTIONS MANAGER.TNES Anesthesia Postop Eval I: Fluid Summary Crystalloid volume administer 1,000 02/23/25 14:54 MARKETING AND PROMOTIONS MANAGER.TNES (ml) Colloids volume administered ( ml) Blood Product volume administered (ml) Total IV fluid infused 1,000 02/23/25 14:54 MARKETING AND PROMOTIONS MANAGER.TNES Anesthesia Postop Eval I: Summary Notes Anesthesia Complication No 02/23/25 14:54 MARKETING AND PROMOTIONS MANAGER.TNES Anesthesia Complication Comment: Post-operative progress note Anesthesia: Postop Eval II Evaluation Mental status: Awake Pain Level: 0 nausea: No Vomiting: No
[2025-02-23] MEDS: HYDROcodone Bitartrate/Apap 5/325 Tablet PO ×2 (17:52→22:37)
[2025-02-23] MEDS: Morphine 2 MG/ML Syringe IV ×2 (19:56→23:48)
[2025-02-24 01:30] VITALS: BP 127/84; PULSE 90; RESP 16; TEMP 36.6; O2SAT 97
[2025-02-24] MEDS: HYDROcodone Bitartrate/Apap 5/325 Tablet PO ×2 (03:39→08:14)
[2025-02-24 05:30] VITALS: BP 132/84; PULSE 68; RESP 16; TEMP 36.6; O2SAT 98
[2025-02-24] MEDS: metroNIDAZOLE 500 MG/100 ML BAG 100 MG IV (05:43)
[2025-02-24] MEDS: 0.9% Normal Saline (1000mL) 1,000 ML 125 ML IV (05:43)
--- NOTE | 2025-02-24 08:08 | PCM.DC.SUM ---
Providers Date of Admission: 02/22/25 Date of Discharge: 02/24/25 Primary Care Physician: Hui Valdes, SEWING ROOM SUPERVISOR-C Reason For Visit: ACUTE CHOLECYSTITIS Diagnosis Discharge Diagnosis (1) Acute cholecystitis: Status: Acute Code(s): K81.0 - Acute cholecystitis Plan: The patient is postoperative day 7 from ventral hernia repair with Dr. Rodriguez. I will discussed the case with him this morning. one of us will take her for laparoscopic cholecystectomy this afternoon. Continue n.p.o. with antibiotics. Jerrell Garcia MD Pager: [facility] [address] [place] [address], [address] [place] [address] Office: Medications at Discharge Home Medications atomoxetine 80 mg capsule 80 mg PO QAM 02/02/25 metoprolol succinate 25 mg tablet,extended release 24 hr 25 mg PO QDAY HEART RATE 02/02/25 solifenacin 10 mg tablet 5 mg PO QDAY OAB 02/02/25 venlafaxine 75 mg capsule,extended release 24 hr 75 mg PO QAM 02/02/25 acetaminophen 500 mg capsule 1,000 mg PO Q6H PRN pain 02/21/25 sumatriptan succinate 100 mg tablet 100 mg PO Q2H PRN migraine 02/21/25 oxycodone-acetaminophen 5 mg-325 mg tablet (Percocet) 1 tab PO Q8H PRN pain 4 days #10 tabs 02/24/25 Hospital Course Operations cholecystecomy Summary of Care Provided Minutes Spent on Discharge: 15 Hospital Course: Patient is a 49-year-old female who recently underwent a ventral hernia repair with mesh. About a week later she developed right upper quadrant pain and presented to the ER. She was found have acute cholecystitis. I offered her laparoscopic cholecystectomy as treatment. We discussed the details of the planned procedure and she wished to proceed. Surgery was successfully performed. She feels much better today and is anticipating discharge later this morning. She is tolerating diet and pain is well-controlled. Physical Exam Narrative She is alert and oriented x 3. She is in no acute distress. Abdomen is soft and appropriately tender. Binder is in place Weight / BMI Weight Weight: 165 lb 12.602 oz Body Mass Index (BMI) 28.3 ABG / Lab / Microbiology Data 02/22/25 06:21 02/22/25 06:21 Radiography Diagnostic Testing: Radiology Impression Cholangiogram 02/23/25 14:10 IMPRESSION: Unremarkable intraoperative cholangiogram. Reading Location: [place] [address] D/C Instructions Discharge Diet: Light diet - advance as tolerated Discharge Activity: Return to Normal Activity and May Shower May shower in (days): 1 Ice area for (Minutes): 30 Lifting Restrictions: No lifting pushing or pulling more than 20 pounds for 6 weeks Additional Activity Instructions: Wear binder for comfort Call your doctor if your incision/area has: Continuous Slow Oozing, Sudden Increased Bleeding, Increased Pain/ Swelling, Increased Redness, Foul Smelling Discharge and Swelling at the incision site Call your doctor if you observe: Fever of 101 or Higher DC O2, CPAP, BIPAP Needs Home O2 Discharge instructions: No Additional Instructions: Follow-up with Dr. Rodriguez in 2 weeks Meaningful Use Info Meaningful Use Meaningful Use Diagnoses (Choose all that apply): None applicable Ischemic Stroke Statin Dosing Therapy Reference: STATIN DOSE THERAPY REFERENCE: * Patients > 75 years receive moderate or high dose statin therapy. * Patients 75 years or YOUNGER should receive HIGH intensity statin dose unless contraindicated. You will be required to document reason for non-treatment if statin daily dose does not meet guidelines. HIGH DOSE STATIN THERAPY DAILY Atorvastatin > than or = to 40 mg Rosuvastatin > than or = to 20 mg Amlodipine + Atorvastatin > than or = to 2.5/40 mg Ezetimibe + Simvastatin 10/80 mg Simvastatin 80mg Discharge Plan Admission Admit Date/Time: 02/22/25 04:04 Primary Reason for Your Visit: Acute cholecystitis Attending Provider: Jerrell Garcia Primary Care Provider: Hui Valdes NP Discharge Orders/Prescriptions Prescriptions: New oxycodone-acetaminophen [Percocet] 5-325 mg tablet 1 tab PO Q8H PRN (Reason: pain) 4 Days Qty: 10 0RF Continued solifenacin 10 mg tablet 5 mg PO QDAY atomoxetine 80 mg capsule 80 mg PO QAM venlafaxine 75 mg capsule,extended release 24hr 75 mg PO QAM metoprolol succinate 25 mg tablet extended release 24 hr 25 mg PO QDAY sumatriptan succinate 100 mg tablet 100 mg PO Q2H PRN (Reason: migraine) acetaminophen 500 mg capsule 1,000 mg PO Q6H PRN (Reason: pain) Referrals / Follow Up: PodlogarHui NP, SEWING ROOM SUPERVISOR-C [Primary Care Provider] - Disposition Disposition (needs filled in before D/C Order can be placed): Home, Self Care
[2025-02-24 08:16] VITALS: BP 135/85; PULSE 68; RESP 17; TEMP 36.8; O2SAT 100
[2025-02-24] MEDS: Ciprofloxacin 400 MG/200 ML BAG 200 MG IV (09:45)
[2025-02-24 10:56] VITALS: BP 128/88; PULSE 69; RESP 18; TEMP 36.9; O2SAT 97
== END 2025-02-24 11:17 | disposition home or self-care (01) | DRG 263 ==
LOC: ED 02-22 04:01 → MS3 02-22 04:11
PROVIDERS: Anesthesiology; Surgery; Admitting Provider Surgery; Emergency Provider Emergency Medicine; PCP Nurse Practitioner Primary Care; Visit Provider Surgery
PROC: 0FT44ZZ Resection of Gallbladder, Percutaneous Endoscopic Approach (ICD-10-PCS; CPT 47610; principal; 2025-02-23 12:40)
DX: K80.00 Calculus of gallbladder with acute cholecystitis without obstruction (principal); F17.290 Nicotine dependence, other tobacco product, uncomplicated; Z97.5 Presence of (intrauterine) contraceptive device; Z79.899 Other long term (current) drug therapy
CPT/HCPCS: 36415; 74177; 74300; 76000; 76705; 80053; 81001; 81025; 83605; 83690; 85025; 88304; 93005; 96361; 96374; 96375; 99282; 99283; Q9967; A4216; C1769; J0744; J2405; J3030

== ENCOUNTER 2025-08-12 09:57 | Emergency (ER) | payer MEDICAID, SELFPAY ==
[2025-08-12 09:58] VITALS: BP 151/101; PULSE 104; RESP 18; TEMP 36.8; O2SAT 100; BMI 27.9
--- NOTE | 2025-08-12 10:09 | RAD_ITS ---
PROCEDURE: CHEST PA AND LATERAL 08/12/2025 REASON FOR EXAM: CHEST PRESSURE TECHNIQUE: Procedure Code: RADCXR Modality: DX Procedure: CHEST PA AND LATERAL FINDINGS: Right lower lobe opacity likely atelectasis although early stages of pneumonia not entirely excluded. No pleural effusion or pneumothorax. Cardiac silhouette is within normal limits. No acute fractures. RAD/Chest PA and Lateral IMPRESSION: Right lower lobe opacity likely atelectasis although early stages of pneumonia not entirely excluded. Reading Location: [id number]
--- NOTE | 2025-08-12 10:09 | EKG12_ITS ---
Test Reason : ANXIETY Blood Pressure : */* mmHG Vent. Rate : 72 BPM Atrial Rate : 72 BPM P-R Int : 180 ms QRS Dur : 84 ms QT Int : 378 ms P-R-T Axes : 77 24 55 degrees QTcB Int : 413 ms Normal sinus rhythm with sinus arrhythmia Normal ECG Confirmed by Joseluis Peralta ([id number]), book or script editor LAURA MACHUCA ([id number]) on 08/15/2025 8:35:32 AM Referred By: Confirmed By: Joseluis Peralta
--- NOTE | 2025-08-12 10:12 | EX.ED.DYSGE1 ---
HPI History of Present Illness Chief Complaint: General Illness Narrative Narrative: Patient is a 39-year-old female presenting to the emergency department for nausea, decreased appetite and shakiness. Patient has a past medical history of ADHD, anxiety, depression and migraines on sumatriptan. She was recently started on Viloxazine last by her psychiatrist at [facility]. States that on Friday she started to have symptoms that have worsened since then. She states that she feels like her symptoms are like her anxiety that she has but much worse. She endorses cold clammy sweats and decreased appetite. Reports nausea with no vomiting. She endorses some feelings of chest pressure across the front of her chest and some shortness of breath. Endorses emotional lability and feeling on edge since starting the medication. She denies fever, sore throat, cough, congestion, abdominal pain. Denies any dysuria or hematuria. Denies any diarrhea. Reports marijuana use nightly, denies any other drugs or alcohol use. Denies any other new medications. Denies any sick contacts. Denies any recent surgeries, hospitalizations or travel. Denies any use of OCPs or hormone therapy. Denies any leg swelling. Denies any history of DVT or PE. [facility] Medical History Anxiety Hernia Wears glasses Wears dentures Depression Bladder disease Low iron Back pain Migraine headache History of ulceration Shortness of breath on exertion Vapes nicotine containing substance Hx of Tachycardia IUD (intrauterine device) in place Home Medications ?Medication ?Instructions ?Recorded ?Last Taken ?Type sumatriptan succinate 100 mg tablet 100 mg PO Q2H PRN migraine 02/21/25 Unknown History viloxazine 200 mg capsule,extended 200 mg PO QDAY #46 caps 07/26/25 Unknown Rx release 24 hr (Qelbree) Allergy/AdvReac Type Severity Reaction Status Date / Time amoxicillin Allergy Unknown unknown Verified 08/12/25 09:59 Family History Son Asthma Grandmother Diabetes Breast cancer Father Hypertension Surgical History S/P cholecystectomy S/P hernia repair History of esophagogastroduodenoscopy (EGD) Previous section Social History Smoking Status: Current every day smoker tobacco type: e-cigarettes quit status: not considering quitting alcohol intake: current alcohol intake frequency: holidays/special occasions only substance use type: former substance user Date of last use: 2017 ROS ROS ED ROS Narrative see HPI EXAM Physical Exam Narrative Exam Narrative: Vital signs: Reviewed General: Alert and orientedx3. No acute distress. Well-appearing, nontoxic HEENT: Head is normocephalic and atraumatic, sinuses nontender, pupils equal round and reactive. Nares are patent. Oropharynx and throat exams normal. Neck: Supple without lymphadenopathy nontender Cardiovascular: Regular rate and rhythm, no murmurs. No rubs or gallops. Normal S1 and S2 Respiratory: Clear to auscultation bilaterally. No wheezes, rales, rhonchi Abdominal: Soft and nontender. Normal bowel sounds. No guarding or rebound. Nonsurgical abdomen Extremities: No tenderness. No bruising. Normal range of motion. Normal sensation. Skin: No rash or redness. Neurological: Cranial nerves II through XII are grossly intact. Normal strength and sensation. Normal cerebellar function The rest of the physical exam is unremarkable Const Vital Signs: 08/12/25 09:58 08/12/25 10:12 08/12/25 12:12 Temperature 98.2 F Temperature Source Oral Pulse Rate 104 H Respiratory Rate 18 Respiratory Pattern Normal Blood Pressure 151/101 H 112/78 Blood Pressure Mean 117 89 Pulse Ox 100 Oxygen Delivery Method Room Air 08/12/25 13:33 Temperature 97.9 F Temperature Source Pulse Rate 52 L Respiratory Rate 16 Respiratory Pattern Blood Pressure 116/74 Blood Pressure Mean 88 Pulse Ox 99 Oxygen Delivery Method MDM MDM MDM Narrative Medical decision making narrative: Patient is a 39-year-old female presenting to the emergency department for multiple complaints as can be seen in the HPI. Patient was seen and examined. Vitals are stable. Patient resting in bed comfortably in no acute distress. Differential includes but is not limited to: Medication side effect, ACS, pneumonia, thyroid disturbance, electrolyte abnormality, viral illness, UTI. She does complain of chest pain and mild shortness of breath, I do not think this is secondary to PE. She has no risk factors for PE. Other than her tachycardia of 104 in triage, on physical exam she does not have tachycardia and this is the only reason she would not be able to be PERC negative. However I do not think this is causing her symptoms. Fluid bolus and Zofran given for symptomatic control. Labs, EKG and CXR ordered. Common side effects of Qelbree are decreased appetite, nausea, irritability and feeling tired. I think this is consistent with most of the patients symptoms. EKG shows normal sinus rhythm at a rate of 72 with sinus arrhythmia. No ischemic changes. CBC with no leukocytosis and a normal hemoglobin. CMP with no significant abnormalities. Troponin and reflex within normal limits. Lipase within normal limits. TSH within normal limits. Urinalysis no evidence of urinary tract infection. Urine negative. Chest x-ray reviewed by myself, no opacities, pneumothorax or mediastinum noted. Radiology read with right lower lobe opacity likely atelectasis although early stages of pneumonia not entirely excluded. Patient does not have a leukocytosis, no cough or fever I do not think this is clinically pneumonia. The results were discussed with the patient and she was notified of the possible pneumonia on chest x-ray read and she also agrees that she does not think it is pneumonia. I do think that her symptoms are secondary to her starting Qelbree recently. Recommended following up with her psychiatrist to discuss any medication changes needed. Patient discharged from the Emergency Department. I do not feel that the patient's evaluation reveals any acute reason for admission at this time. I instructed them to either follow-up with their primary care physician or promptly return to the Emergency Department for reevaluation should symptoms worsen or new symptoms develop. I explained what symptoms would indicate the need to return to the emergency department. Shared decision making was used. The patient voiced understanding of the treatment plan and is agreeable with it. Clinical impression: Medication side effect History & Record Review Discussion w/independent historian: Patient Lab Data Attestation: I reviewed the patient's lab results. Labs: Laboratory Results - last 24 hr 08/12/25 08/12/25 08/12/25 10:31 10:39 12:20 WBC 6.0 RBC 4.34 Hgb 13.6 Hct 39.2 MCV 90.3 MCH 31.3 MCHC 34.7 RDW Std Deviation 40.5 RDW Coeff of [place] 12.3 Plt Count 336 MPV 9.0 Immature Gran % (Auto) 0.200 Neut % (Auto) 59.5 Lymph % (Auto) 30.4 [place] % (Auto) 6.8 Eos % (Auto) 2.3 Baso % (Auto) 0.8 Absolute Neuts (auto) 3.6 Absolute Lymphs (auto) 1.83 Nucleated RBC % 0 Sodium 141 Potassium 3.3 Chloride 106 Carbon Dioxide 19.4 L Anion Gap 15 BUN 5 Creatinine 0.85 Estim Creat Clear Calc 87.53 Est GFR (MDRD) Non-Af 90 BUN/Creatinine Ratio 5.8 L Glucose 138 H Calcium 9.1 Total Bilirubin 0.45 AST 19 ALT 13 Alkaline Phosphatase 43 Troponin T High Sens < 6 Troponin T Hi Sens 2 Hr < 6 Total Protein 6.5 Albumin 4.3 Globulin 2.1 L Albumin/Globulin Ratio 2.0 Lipase 35 TSH 1.220 Serum , Qual NEGATIVE Urine Color Yellow Urine Clarity Sl. Cloudy Urine pH 6.5 Ur Specific [place] 1.010 Urine Protein 15 H Urine Glucose (UA) Normal Urine Ketones Negative Urine Occult Blood 10 H Urine Nitrite Negative Urine Bilirubin Negative Urine Urobilinogen Normal Ur Leukocyte Esterase Negative Urine RBC 0 SEEN Urine WBC 0 SEEN Ur Squamous Epith Cells 0-5 SEEN Urine Bacteria 0 SEEN Urine Mucus 0 SEEN Radiography Chest X-Ray - ED: Read by ED Physician, Normal, No Acute Disease and No Infiltrates Diagnostic Testing: Clinical Impression(s) from Imaging Studies Chest X-Ray 08/12/25 10:09 IMPRESSION: Right lower lobe opacity likely atelectasis although early stages of pneumonia not entirely excluded. Reading Location: [facility] Discharge Plan Triage Chief Complaint: General Illness ED Provider: Gia Manjarrez Dx/Rx/DC Orders Clinical Impression: Medication side effect Prescriptions: No Action Qelbree 200 mg capsule,extended release 24hr 200 mg PO QDAY Qty: 46 0RF Rx Instructions: Take 1 tablet daily for 14 days then take 2 tablets daily thereafter sumatriptan succinate 100 mg tablet 100 mg PO Q2H PRN (Reason: migraine) Primary Care Provider: Hui Valdes NP Referrals: Hui Valdes NP, L [facility] [Primary Care Provider, Medical] - As soon as possible Activity Restrictions/Additional Instructions: Please discuss with your psychiatrist if you should continue taking the Viloxazine. If you develop symptoms of pneumonia which include fever, cough, shortness of breath you should return to the emergency department or follow-up with your primary care doctor for possible antibiotics. Your evaluation in the Emergency Department did not reveal any acute reason for admission. However, I want to emphasize that you may be early in the course of a disease process or illness even if it is not present. For this reason you should follow-up within 24 hours for reevaluation with either your primary care physician or if necessary back here in the Emergency Department. You should return to the Emergency Department immediately if your symptoms worsen or new symptoms develop. Print Language: Spanish Disposition Disposition: Home, Self Care Discharge Date/Time: 08/12/25 13:35
[2025-08-12] MEDS: 0.9% Normal Saline (1000mL) 1,000 ML 1000 ML IV (10:31)
[2025-08-12 10:36] LABS: Hematocrit 39.2 % (37-47); Hemoglobin 13.6 g/dL (12.0-15.0); Immature Granulocytes Count 0.010 X10^3/uL (0.0-0.0); Mean Corp Hgb Conc 34.7 g/dL (32-36); Mean Corpuscular Volume 90.3 fL (81-99); Mean Platelet Vol. 9.0 fl (6.2-12.0); NRBC Flagged by Analyzer 0 % (0-5); Platelet Count 336 K/mm3 (150-450); RBC Distribution Width CV 12.3 % (11.6-14.6); RBC Distribution Width SD 40.5 fl (35.1-43.9); Red Blood Count 4.34 M/mm3 (4.2-5.4); White Blood Count 6.0 K/mm3 (4.4-11.0)
--- OUTSIDE RECORDS SUMMARY | 2025-08-12 10:43 | XMS RPT_ITS | CCD ---
Author Organization [facility] Care Team Providers Care [place] Laborer Name Role Phone [facility] Unavailable Unavai lable [facility] Unavailable Unavai lable LOURDES CADE Unavailable Unavailable [place] Unavailable Unavai lable UNKNOWN, PROVIDER Unavailable Unavailable Christina Rangel Primary Care Provider [phone] AA UNKNOWN PCP, UNKNOWN Primary Care Unavaila CARLEY Colon Admitting Unavailable CARLEY COOPER Attending Unavailable MEREDITH MUNOZ V Admitting Unavailable MEREDITH MUNOZ V Attending Unavailable ERNESTO CARLIN Primary Care Unavailable Christina Rangel Primary Care Provider UnavailDesiree Navarro Unavailable Unavailable None, No PCP Unavailable Unavailable Frances Padgett Unavailable Unavailable Christina Rangel Primary Care Provider UnavailChristina Vargas Primary Care Provider Unavailabl e Ernesto Carlin MD Primary Care Provider [phone] Ernesto Carlin Unavailable Unavailable Unavailable Ernesto Carlin MD Primary Care Provider [phone] Ernesto Carlin MD Primary Care Provider [phone] Ernesto Carlin MD Primary Care Provider Dr. Ernesto Carlin Primary Care Unavailable JULY Joseph, CELL EFFICIENCY SUPERVISOR ANA CRISTINA VU Attending Unav willi LARSON Jr., TIMBO VU Referring Unav ailable ERNESTO CARLIN Referring Unavailable JESSENIA GRACE Attending Unavailable ERNESTO CARLIN Primary Care Unavailable JESSENIA GRACE Attending Unavailable JESSENIA GRACE Referring Unavailable ERNESTO CARLIN Primary Care Unavailable ERNESTO CARLIN Primary Care Unavailable JESSENIA GRACE Attending Unavailable ERNESTO CARLIN Referring Unavailable WILKES, JOANNA Attending Unavailable ERNESTO CARLIN Primary Care Unavailable Trice Lieberman MD Primary Care Provider [employer] ELECTRONIC EQUIPMENT MAINT TECH.CELL EFFICIENCY SUPERVISOR, Hui Unavailable [employer] ELECTRONIC EQUIPMENT MAINT TECH.CELL EFFICIENCY SUPERVISOR, Hui Unavailable Knoble ELECTRONIC EQUIPMENT MAINT TECH.CELL EFFICIENCY SUPERVISORKinza Unavailable [place]le ELECTRONIC EQUIPMENT MAINT TECH.CELL EFFICIENCY SUPERVISOR, Kinza Unavailable Conner TOWNSEND, Dr. Godwin Attending Provider Conner TOWNSEND, Dr. Godwin Emergency Provider [employer] OPENER TENDER-C, Hui Primary Care Provider [employer] OPENER TENDER-C, Hui Referring Provider Jennifer MARADIAGA, Dr. Desean Cavazos Attending Provider Jennifer MARADIAGA, Dr. Desean Cavazos Referring Provider Jennifer MARADIAGA, Dr. Desean Cavazos Other Provider Rosita TOWNSEND, Dr. Sanz Emergency Provider Dr. Kayden Smith DO Emergency Provider Jose MARADIAGA, Dr. Allan Admit Provider Jose MARADIAGA, Dr. Allan Attending Provider Jose MARADIAGA, Dr. Allan Other Provider Rosita TOWNSEND, Dr. Sanz Attending Provider Fabian MARADIAGA, Dr. Huggins Attending Provider Jose MARADIAGA, Dr. Allan Referring Provider Praful ELECTRONIC EQUIPMENT MAINT TECH.Saman IZQUIERDOelle Unavailable PODLOGAR, HUI Attending Unavailable TRICE LIEBERMAN Primary Care Unavailab le PODLOGAR, HUI Attending Unavailable TRICE LIEBERMAN Primary Care Unavailab le PODLOGAR, HUI Attending Unavailable TRICE LIEBERMAN Primary Care Unavailab le PODLOGAR, HUI Referring Unavailable TRICE LIEBERMAN Primary Care Unavailab le BEAR, TEMITOPE Attending Unavailable PODLOGAR, HUI Referring Unavailable DONG, TRICE Jack Primary Care Unavailab TEMITOPE Fitzpatrick Referring Unavailable DONG, TRICE Jack Primary Care Unavailab le [employer] OPENER TENDER, Hui Primary Care Unavailable Zoila Muse Attending Unavailable Desean Rodriguez Attending Unavailable [employer] OPENER TENDER, Hui Primary Care Unavailable [employer] OPENER TENDER, Hui Referring Unavailable Desean Rodriguez Attending Unavailable Dseean Rodriguez Referring Unavailable WanekDesean Consulting Unavailable [employer] OPENER TENDER, Hui Primary Care Unavailable [employer] OPENER TENDER, Hui Primary Care Unavailable Caljannie, Jerrell Referring Unavailable Meredith Peralta Attending Unavailable Jennifer, Desean Cavazos Attending Unavailable Wanek, Desean Cavazos Referring Unavailable [employer] OPENER TENDER, Hui Primary Care Unavailable Yvon Becker Attending Unavailabl e [employer] OPENER TENDER, Hui Primary Care Unavailable Tato Prieto Attending Unavailable [employer] OPENER TENDER, Hui Primary Care Unavailable Podlogar OPENER TENDER, Hui Primary Care Unavailable Jerrell Garcia Admitting Unavailable Calabrblessing, Jerrell Attending Unavailable Calabrblessing, Jerrell Admitting Unavailable [employer] OPENER TENDER, Hui Primary Care Unavailable Jerrell Garcia Consulting Unavailable Desean Rodriguez Attending Unavailable Jose, Jerrell Attending Unavailable [employer] OPENER TENDER, Hui Primary Care Unavailable Desean Rodriguez Attending Unavailable [employer] OPENER TENDER, Hui Referring Unavailable Allergies Allergy Classification Reported Allergen(s) Allergy Type Date of Onset Reaction(s) Facility (20 sources) Amoxicillin; Translations: [amoxicillin] Drug Allergy 04-30-2016 Unknown [place] (1 source) Amoxicillin Drug Allergy [facility] Repository (1 source) Amoxicillin Drug Allergy 07-26-2025 [facility] Repository Medications Current Medications Medication [...] on above: Take 2 tablets by mo [facility] every 6 hours as needed for pain. [id number] 200 actuat albuterol 0.09 mg/actuat metered dose inhaler (1 source) beta2-Adrenergic Agonist Start: 06-19-20 albuterol sulfate HFA 108 (90 Base) MCG/ACT inhaler 2 puff azithromycin 250 mg oral tablet (3 sources) Macrolide Antimicrobial Start: 06-19-20 End: 06-23-20 take 1 tablet by mouth once daily [...] Comment on above: Take 2 capsules by [facility] three times daily as needed for up to 10 days. 24 hr buPROPion hydrochloride 150 mg extended release oral tablet (2 sources) Aminoketone Start: 03-28-2025 take 1 tablet by mouth once daily buPROPion XL (WELLBUTRIN XL) 150 mg 24 hr tablet Take 1 tablet by mouth once daily. 90 tablet 1 03/28/2025 Active cephalexin 500 mg oral capsule (5 sources) [...] Comment on above: Take 1 tablet by javon th every 12 hours for 10 days. gabapentin [...] / neomycin 3.5 mg/ml / polymyxin b 13536 unt/ml otic solution (2 sources) Aminoglycoside Antibacterial, Polymyxin-class Antibacterial, Corticosteroid Start: 06-19-2021 End: 06-19-2021 jegvfsnc-ekuxmtvwf-qtwsaxrcf isone (CORTISPORIN) [id number] 4 drops into the left ear 3 times daily for 10 days Instill into left Ear 10 mL 0 06/19/2021 06/19/2021 Discontinued (Availability) Start: 06-19-2021 End: 06-29-2021 jsnoyagd-sdxcfjccl-lzsoxeypd isone 1 % SOLN otic solution Place [...] succinate 25 mg extended release oral tablet (20 sources) beta-Adrenergic Jacquelyn Start: 10-03-2023 End: 07-05-2024 take 1 tablet by mouth once daily metoprolol succinate ER (TOPROL XL) 25 mg 24 hr tablet Indications: Migraine without aura and without status migrainosus, not intractable Take 1 tablet by mouth once daily. 90 tablet 3 07/05/2024 Active Comment on above: Take 1 tablet by javon once daily. nitrofurantoin, macrocrystals 25 mg / nitrofurantoin, monohydrate 75 mg oral capsule (2 sources) Nitrofuran Antibacterial Start: 03-28-2022 End: 04-07-2022 take 1 capsule by mouth twice daily nitrofurantoin monohydrate and macrocrystal (MACROBID) 100 mg capsule Take 1 capsule by mouth twice daily for 10 days. 20 capsule 0 03/28/2022 04/07/2022 Active Comment on above: Take 1 capsule by mo [facility] twice daily for 10 days. nystatin [id number] unt/ml topical cream (4 sources) Polyene Antifungal Start: 10-08-2022 End: 10-22-2022 nystatin (MYCOSTATIN) cream Indications: Yeast dermatitis Apply [...] days. solifenacin succinate 10 mg oral tablet (20 sources) Cholinergic Muscarinic Antagonist Start: take 5 mg by mouth once daily Solifenacin 10 mg tablet Active 5 mg PO daily February 02, 2025 12:00am Start: 02-02-2025 take 1 tablet by javon once daily Solifenacin 10 mg tablet Active [...] sources) Serotonin-1b and Serotonin-1d Receptor Agonist Start: End: take 1 tablet by mouth once as needed for headache Sumatriptan Succinate 25 mg tablet Discontinued 25 mg PO ONCE as needed for migraine headache February 02, 2025 12:00am February 21, 2025 1:46pm Start: 10-03-2023 End: 04-04-2025 SUMAtriptan (IMITREX) 100 mg tablet Indications: Migraine without aura and without status migrainosus, not intractable Take 1 tablet by mouth as needed for migraine headache (see administration instructions). 9 tablet 2 04/04/2025 Active Start: 10-08-2022 End: 07-01-2023 SUMAtriptan (IMITREX) [...] Comment on above: TAKE 1 TABLET BY JAVON TH NEEDED FOR MIGRAINE HEADACHE(SEE INSTRUCTIONS) Take 1 tablet by javon th as needed. Take 1 tablet by javon th as needed for migraine headache (see administration instructions). Take 1 tablet (100 m g) by mouth as needed for migraine headache (see administration instructions). traZODone hydrochloride 50 mg oral tablet (20 sources) Serotonin Reuptake Inhibitor Start: take 1 tablet by mouth once daily [...] Comment on above: Take 1 tablet by javon twice daily. 24 hr venlafaxine 75 mg extended release oral capsule (20 sources) Serotonin and Norepinephrine Reuptake Inhibitor Start: 12-31-2024 take 1 capsule by mouth once daily venlafaxine ER (EFFEXOR XR) 75 [...] Discontinued Start: 06-05-2019 take 1 capsule by mo [facility] once daily venlafaxine (EFFEXOR XR) 150 MG extended release capsule Take 1 capsule by mouth daily 30 capsule 0 06/05/2019 Active Start: 06-05-2019 take 1 capsule by mo [facility] once daily venlafaxine (EFFEXOR XR) 150 MG [...] Comment on above: Take 1 tablet by javon th every 6 hours as needed. TAKE 1 TABLET BY JAVON TH EVERY 6 HOURS NEEDED acetaminophen 325 mg / oxyCODONE hydrochloride 5 mg oral tablet (7 sources) Opioid Agonist Start: 02-24-2025 End: 03-09-2025 Oxycodone-Acetaminophen (Percocet) 5-325 mg tablet Discontinued 1 {tbl} PO Q8H as needed for pain 10 February 24, 2025 March 09, 2025 2:02pm Start: 02-14-2025 End: 02-21-2025 Oxycodone-Acetaminophen (Per cocet) 5-325 mg tablet Discontinued 1 {tbl} PO Q8H as needed for pain 10 February 14, 2025 February 21, 2025 2:46pm atomoxetine 80 mg oral capsule (20 sources) Norepinephrine Reuptake Inhibitor Start: 12-31-2024 End: 03-22-2025 take 1 capsule by mouth once daily atomoxetine 80 mg capsule Indications: ADHD (attention deficit hyperactivity disorder), combined type Take 1 capsule by mouth once daily. 90 capsule 1 12/31/2024 03/22/2025 Discontinued (Course of therapy completed) Start: 07-05-2024 End: 12-31-2024 take 1 capsule by mouth once daily atomoxetine (STRATTERA) 40 mg capsule Indications: ADHD (attention deficit hyperactivity disorder), combined type Take 1 capsule by mouth once daily. 30 capsule 5 07/05/2024 12/31/2024 Discontinued bismuth subsalicylate 262 mg chewable tablet (2 sources) Bismuth Start: 11-23-2021 End: 01-11-2022 take 1 tablet by mouth four times daily bismuth subsalicylate (PEPTO-BISMOL) 262 mg chew Indications: PUD (peptic ulcer disease) Take 1 tablet by mouth four times daily for 14 days. 56 tablet 0 11/23/2021 01/11/2022 Discontinued (Course of therapy completed) Comment on above: Take 1 tablet by javon th four times daily for 14 days. Blood-Glucose Meter (20 sources) Start: 06-28-2022 Blood-Glucose Meter Indications: GDM (gestational diabetes mellitus), class A1 1 Each twice daily. 1 Each 0 06/28/2022 Active Comment on above: 1 Each twice daily. busPIRone hydrochloride 10 mg oral tablet (9 sources) Start: 04-08-2016 End: 05-29-2019 take 1 tablet by mouth twice daily busPIRone (BUSPAR) 10 MG tablet TK 1 T PO BID 2 04/08/2016 05/29/2019 Discontinued (Therapy completed) clindamycin 300 mg oral capsule (2 sources) Lincosamide Antibacterial Start: 08-16-2020 take 1 capsule by mouth twice daily Clindamycin HCl - 300 MG Oral Capsule Take 1 capsule twice daily Quantity: 14 Refills: 0 Ordered: 16-Aug-2020 Desiree Casarez PA-C Start : 16-Aug-2020 Active clotrimazole 10 mg/ml topical cream (20 sources) Azole Antifungal Start: 07-04-2021 clotrimazole (LOTRIMIN, CLOTRIM) 1 % cream Indications: [...] on above: Take 1 capsule by mo [facility] twice daily. famotidine 20 mg oral tablet [...] Comment on above: Take 1 tablet by [facility] twice daily. Take 20 mg [...] Comment on above: Take 1 tablet by javon th every 6 hours. isopropyl alcohol 0.7 ml/ml medicated pad (20 sources) Start: 06-28-20 alcohol swabs Indications: GDM (gestational diabetes mellitus), class A1 Apply 1 application to affected area twice daily. 100 Each 2 06/28/2022 Active Comment on above: Apply 1 application to affected area twice daily. levonorgestrel 0.840420 mg/hr intrauterine system (1 source) Progestin, Progestin-containing Intrauterine Device Start: 11-01-19 End: 11-01-19 levonorgestrel 20 mcg/24 hours (8 yrs) 52 mg 1 Each intrauterine device (MIRENA) lisinopril 10 mg oral tablet (8 sources) Angiotensin Converting Enzyme Inhibitor Start: 02-02-20 End: 02-09-20 take 1 tablet by mouth once daily [...] Comment on above: Take 1 tablet by javon th once daily. TAKE 1 TABLET BY JAVON TH EVERY DAY 1 ml LORazepam 2 [...] on above: Take 1 capsule by mo [facility] once daily. ondansetron 8 mg oral tablet (20 sources) Serotonin-3 Receptor Antagonist Start: 2 take 1 tablet by mouth every eight [...] Comment on above: Take 1 tablet by javon th every 8 hours as needed for nausea/vomiting. TAKE 1 TABLET BY JAVON TH EVERY 8 HOURS NEEDED FOR NAUSEA AND VOMITING oxyCODONE hydrochloride 5 mg oral tablet (3 sources) Opioid Agonist Start: 09-14-20 End: 10-08-19 23 take 1 tablet by mouth every six hours as needed oxyCODONE IR (ROXICODONE) 5 mg immediate release tablet Indications: Delivery by section of full-term infant Take 1-2 tablets by mouth every 6 [...] above: Take by mouth. polyethylene glycol 3350 71627 mg powder for oral solution (20 sources) Osmotic Laxative Start: 05-21-20 End: 07-05-20 polyethylene glycol 3350 (MIRALAX, GLYCOLAX) 17 gram/dose powder Indications: Constipation, unspecified constipation type Take 17 g by mouth once daily. Dissolve dose in 4 - 8 ounces of liquid and take as directed. 119 g 1 07/05/2022 Active Start: 04-24-2022 End: 05-19-2022 polyethylene glycol 3350 (FL RALAX, GLYCOLAX) 17 gram/dose powder Indications: Constipation, unspecified constipation type TAKE 17 G BY MOUTH ONCE DAILY. DISSOLVE DOSE IN 4 - 8 OUNCES OF LIQUID AND TAKE DIRECTED. 119 g 1 04/24/2022 05/19/2022 Discontinued Start: 04-05-2022 End: 04-24-2022 polyethylene glycol 3350 (FL RALAX) 17 gram/dose powder Indications: Constipation, unspecified [...] completed) Start: 01-29-2023 take 1 tablet by javon th once daily 28 mg iron- 800 mcg tab TAKE 1 TABLET BY MOUTH EVERY DAY 90 tablet 3 01/29/2023 Active Comment on above: TAKE 1 TABLET BY JAVON TH EVERY DAY Xjrkvcas-Mi-Tsq-Fe-F A tab (20 sources) Start: 2 take 1 tablet by mouth once daily Cmquzpek-Mr-Atr-Fe-FA tab Indications: Amenorrhea, secondary Take 1 tablet by mouth once daily. 30 tablet 11 02/14/2022 Active Comment on above: Take 1 tablet by javon th once daily. sertraline 100 mg oral [...] completed) Start: 07-01-2023 take 1 tablet by javon th once daily terbinafine HCl (LAMISIL) 250 mg tablet Indications: Onychomycosis Take 1 tablet by mouth once daily. 90 tablet 0 07/01/2023 Active Comment on above: Take 1 tablet by javon th once daily. zonisamide 100 mg oral capsule (2 sources) Anti-epileptic Agent Zonisamide 100 MG Oral Capsule Quantity: 0 Refills: 0 Ordered: 16-Aug-2020 DO Active Problems Active Problems Problem Classification Problem Date Documented Da te Episodic/Chronic Acute bronchitis (2 sources) Acute bronchitis; Translations: [Acute bronchitis, unspecified] Onset: 06-19-2021 Episodic Attention-deficit, conduct, and disruptive behavior disorders (1 source) Adult attention deficit hyperactivity disorder ; Translations: [Attention-deficit hyperactivity disorder, unspecified type] 03-22-2025 Chronic Attention-deficit, conduct, and disruptive behavior disorders (1 source) Attention-deficit hyperactivity disorder, unspecified type; Translations: [Adult ADHD] Onset: 03-22-2025 Chronic Attention-deficit, conduct, and disruptive behavior disorders (1 source) Attention-deficit hyperactivity disorder, combined type; Translations: [ADHD (attention deficit hyperactivity disorder), combined type] Onset: 12-31-2024 Chronic Chronic obstructive pulmonary disease and bronchiectasis (1 source) Bronchitis; Translations: [Bronchitis, not specified as acute or chronic] Episodic Disorders of lipid metabolism (20 sources) Pure hypercholesterolemia; Translations: [Pure hypercholesterolemia, unspecified] Onset: 11-02-2018 Resolved: 08-15-2021 06-04-2019 Chronic Genitourinary symptoms and ill-defined conditions (19 sources) Stress incontinence (female) (male); Translations: [Genuine stress incontinence] Onset: 10-03-2023 10-03-2023 Chronic Headache, including migraine (20 sources) Migraine; Translations: [Migraine, unspecified, not intractable, without status migrainosus] Onset: 04-19-2017 06-04-2019 Chronic Hemorrhoids (3 sources) External hemorrhoids; Translations: [Residual hemorrhoidal skin tags] Episodic Menstrual disorders (3 sources) Secondary amenorrhea; Translations: [Secondary amenorrhea] Chronic Mood disorders (1 source) Major depressive disorder, single episode, unspecified; Translations: [MAJOR DEPRESSIVE DISORDER, SINGLE EPISODE, UNSPECIFIED] Onset: 04-19-2017 Mycoses (2 sources) Candidiasis of skin; Translations: [Candidiasis of skin and nail] Episodic Nonmalignant breast conditions (1 source) Breast finding ; Translations: [Dense breast tissue] 10-18-2024 Episodic Other aftercare (1 source) Other jail (current) drug therapy; Translations: [OTH [facility] CURRENT DRUG THERAPY] Onset: 08-10-2019 Episodic Other [...] (20 sources) Obese class I; Translations: [Obesity, unspecified] [...] Translations: [37 weeks gestation of ] Episodic Residual codes; unclassified (2 sources) History of hernia repair; Translations: [Other specified postprocedural states] 03-09-2025 Episodic Skin and subcutaneous tissue infections (3 [...] [Ventral hernia without obstruction or gangrene] Onset: 8 06-04-2019 Episodic Abdominal pain (20 sources) Epigastric pain; Translations: [Epigastric pain] Onset: 2 Resolved: 2 10-30-2021 Episodic Administrative/social admission (20 sources) Grand multipara; Translations: [Problems related to multiparity] Onset: 2 Resolved: 3 09-11-2022 Episodic Allergic reactions (20 sources) Allergy status to penicillin; Translations: [Drug allergy] Onset: 7 06-04-2019 Episodic Anxiety disorders (20 sources) Anxiety disorder, unspecified; Translations: [Anxiety] Onset: 7 Resolved: 1 06-04-2019 Chronic Attention-deficit, conduct, and disruptive behavior disorders (20 sources) Attention deficit hyperactivity disorder, combined type; Translations: [Attention-deficit hyperactivity disorder, combined type] Onset: 8 Resolved: 1 07-05-2024 Chronic Bacterial infection; unspecified site (19 sources) History of methicillin resistant Staphylococcus aureus infection; Translations: [Personal history of Methicillin resistant Staphylococcus aureus infection] Onset: 1 Resolved: 3 09-11-2022 Episodic Biliary tract disease (7 sources) Acute cholecystitis; Translations: [Acute cholecystitis] Onset: 5 02-22-2025 Episodic Contraceptive and procreative management (12 sources) Intrauterine contraceptive device in situ; Translations: [Encounter for routine checking of intrauterine contraceptive device] Onset: 5 Episodic Diabetes or abnormal glucose tolerance complicating ; childbirth; or the puerperium (20 sources) Gestational diabetes mellitus; Translations: [Gestational diabetes mellitus in , diet controlled] Onset: 2 Resolved: 3 Episodic Esophageal disorders (20 sources) Gastroesophageal reflux disease without esophagitis; Translations: [Gastro-esophageal reflux disease without esophagitis] Onset: 2 Resolved: 3 Chronic Essential hypertension (20 sources) Essential hypertension; Translations: [Essential (primary) hypertension] Onset: 2 Resolved: 3 11-26-2021 Chronic Gastritis and duodenitis (20 sources) Helicobacter-associate d gastritis; Translations: [Gastritis, unspecified, [...] migraine (2 sources) Headache; Translations: [HEADACHE] Onset: Episodic Hemorrhage during ; abruptio placenta; placenta [...] of cervix uteri] Onset: 9 06-04-2019 Episodic Mood disorders (20 sources) Depressive disorder; Translations: [Severe recurrent major depression] Onset: 8 Resolved: 1 06-04-2019 Chronic Other circulatory disease (17 sources) Elevated blood-pressure reading without diagnosis of [...] 1 Resolved: 1 Episodic Other complications of (18 sources) Group B Streptococcus carrier; Translations: [Streptococcus B carrier state complicating ] Onset: 1 Resolved: 2 Episodic Other complications of (17 sources) Viral disease in mother complicating , childbirth AND/OR puerperium; Translations: [Other viral diseases complicating , third trimester] Onset: 1 Resolved: 2 10-30-2021 Episodic Other complications of (17 sources) Vomiting of , unspecified; Translations: [Unspecified vomiting of , antepartum condition or complication] Onset: 1 Resolved: 3 10-08-2022 Episodic Other female genital disorders (1 source) Other specified noninflammatory disorders of vagina; Translations: [OTH SPEC NONINFLAMMATORY D/O VAGINA] Onset: 9 Episodic Other gastrointestinal disorders (1 source) Personal history of other diseases of the digestive system; Translations: [Personal history of other diseases of the digestive system] Onset: 5 Episodic Other infections; including parasitic (20 sources) [...] 2 Resolved: 3 Episodic Other skin disorders (17 sources) Abdominal mass; Translations: [Localized swelling, mass and lump, trunk] Onset: 8 Resolved: 8 09-03-2018 Episodic Residual codes; unclassified (14 sources) History of drug abuse; Translations: [Personal history of other specified conditions] Onset: 2 03-05-2022 Episodic Residual codes; unclassified (20 sources) Gestation period, 14 weeks; Translations: [14 weeks gestation of ] Onset: 2 Resolved: 2 03-28-2022 Episodic Residual codes; unclassified (1 source) Acquired absence of other specified parts of digestive tract; Translations: [Acquired absence of other specified parts of digestive tract] Onset: 5 Episodic Residual codes; unclassified (1 source) Other specified postprocedural states; Translations: [Other specified postprocedural states] Onset: 5 Episodic Screening and history of mental health [...] Test Name Value Interpretation Reference Range Facility MR/BMS.on 07-26-2025 MR/BMS.BP [address], [address] [place] [address] OFFICE VISIT Date of Service: 07/26/25 MR#: [id number] Acct: [id number] Name: DANE OLIVERA Rep #: [id number] : 1985 Provider: KOSTA aceves Age/Sex: 39/F Location: [facility] Status: Signed Intake Vital Signs 02/23/25 11:16 07/26/25 09:51 Height 5 ft 4.17 in 5 ft 4 in Weight: 168 lb BMI 28.8 BP 128/88 H Blood Pressure Location Lt brachial Position Sitting Respiration 16 Pulse 89 Pulse Source Monitor BP Intake Visit Reasons: ADHD Accompanied by: Self Allergies amoxicillin Allergy (Unknown, Verified 07/26/25 09:59) unknown Medications ???Medication ???Instructions ???Recorded ???Confirmed ???Type sumatriptan succinate 100 mg tablet 100 mg PO Q2H PRN migraine 06/0903/09/25 History viloxazine 200 mg capsule,extended 200 mg PO QDAY #46 caps 07/26/25 07/26/25 Rx release 24 hr (Qelbree) PFSH Medical History (Updated 07/26/25 @ 14:44 by KOSTA Hannah) Anxiety Hernia Wears glasses Wears dentures Depression Bladder disease Low iron Back pain Migraine headache History of ulceration Shortness of breath on exertion Vapes nicotine containing substance Hx of Tachycardia IUD (intrauterine device) in place Surgical History (Updated 03/09/25 @ 14:04 by Cait Hatch) S/P cholecystectomy S/P hernia repair History of esophagogastroduodenoscopy (EGD) Previous section Family History Son Asthma Grandmother Diabetes Breast cancer Father Hypertension Social History (Updated 07/26/25 @ 10:04 by Azalia Smith) Smoking Status: Current every day smoker tobacco type: e-cigarettes quit status: not considering quitting alcohol intake: current alcohol intake frequency: holidays/special occasions only substance use type: former substance user Date of last use: 2017 HPI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 improving. She denies any issues with diet or bowel functioning. All of her preoperative symptoms have resolved. She denies any questions or concerns Objective Details: She is alert and oriented x 3. She is in no acute distress. Abdomen is soft, nontender and nondistended. All of her incisions are healing well. No signs of erythema or infection. No evidence of hernia recurrence or persistence above the umbilicus. Coding Level of Care Code Global Post Op Diagnoses S/P cholecystectomy Z90.49 S/P hernia repair Z98.890; Z87.19 [facility] Medical History (Updated 03/09/25 @ 14:04 by Cait Hatch) Hernia Wears glasses Wears dentures Depression Bladder disease Low iron Back pain Migraine headache History of ulceration Shortness of breath on exertion Vapes nicotine containing substance Hx of Tachycardia IUD (intrauterine device) in place Surgical History (Updated 03/09/25 @ 14:04 by Cait Hatch) S/P cholecystectomy S/P hernia repair History of esophagogastroduodenoscopy (EGD) Previous section Family History Son Asthma Grandmother Diabetes Breast cancer Father Hypertension Social History Smoking Status: Current every day smoker tobacco type: e-cigarettes quit status: not considering quitting Assessment and Plan (No Qualifiers) Assessment and Plan (1) S/P cholecystectomy: Status: Acute Plan: The patient is a 39-year-old female status post a recent ventral hernia repair with mesh as well as a laparoscopic cholecystectomy. She is doing well postoperatively. I am recommending follow-up as needed. (2) S/P hernia repair: Status: Acute 03/09/25 1409 Date [facility]ese[facility] Rodriguez [facility] Signature: Date (if applicable) CC: Normal [facility] 12 Lead EKGon 02-23-2025 12 Lead EKG [facility] Cardiovascular Services [address] [place] [address] 12 Lead EKG 02/23/25 0650 MR#: [id number] Acct: [id number] Name: DANE OLIVERA Rep #: [id number] : 1985 39 From: Meredith Peralta MD Attending Dr: Dr. Jerrell Garcia MD Status: ADM IN Ordering Dr: Jerrell Garcia MD Date: 02/23/25 Location: MS3 Sex: F C Admitted: 02/22/25 Test Reason : SOB Blood Pressure : */* mmHG Vent. Rate : 79 BPM Atrial Rate : 79 BPM P-R Int : 188 ms QRS Dur : 78 ms QT Int : 380 ms P-R-T Axes : 60 -5 25 degrees QTcB Int : 435 ms Normal sinus rhythm Normal ECG No previous ECGs available Confirmed by Meredith Peralta ([id number]), greeting card editor LAURA MACHUCA ([id number]) on 02/23/2025 10:41:32 AM Referred By: JOSE Confirmed By: Meredith Peralta 02/23/25 1041 Date Meredith Peralta MD CC: OPENER TENDER-C Hui Valdes; Dr. Jerrell Garcia MD Signed Normal [facility] Cholangiogram/ O R,Initialon 02-23-2025 Cholangiogram/ O R,Initial [facility] Imaging Services [address] [place] [address] Cholangiogram/ O R,Initial MR#: [id number] Acct: [id number] Name: DANE OLIVERA Rep #: [id number] : 1985 F 39 From: Jordan cleaning MD PCP: KOSTA Gomez Status: ADM IN Study: Cholangiogram/ O R,Initial Date of Exam: 02/23 Exam# [id number] Ordering Dr: Jerrell Garcia PROCEDURE: CHOLANGIOGRAM/ O R,INITIAL 02/23/2025 REASON FOR EXAM: LAP JOSSELYN W/ IOC TECHNIQUE: Intraoperative cholangiogram was performed by the surgeon. Imaging was submitted. Radiation report: 7.2 seconds of fluoroscopy. 3.83 mGy. COMPARISON: None FINDINGS: Contrast was injected. There is opacification of the intra and extrahepatic biliary ducts. No radiographic abnormality is seen. There is free flow of contrast into the duodenum. RAD/Cholangiogram/ O R,Initial IMPRESSION: Unremarkable intraoperative cholangiogram. Reading Location: [place] [address] CC: KOSTA Valdes; Dr. Jerrell Garcia MD Cost Control Analyst: Signed Normal [facility] Electrocardiogram reportOrde red By: Meredith Peralta on 02-23-2025 EKG study [facility] Cardiovascular Services [address] [place] [address] 12 Lead EKG 02/23/25 0650 MR#: [id number] Acct: [id number] Name: DANE OLIVERA N Rep #:[id number] : 1985 39 From: Meredith saba MD Attending Dr: Dr. Jerrell Garcia MD Status: ADM IN Ordering Dr: Jerrell Garcia MD Darron e: 02/23/25 Location: MS3 Sex: F C Admitted: 02/22/25 Test Reason : SOB Blood Pressure : */* mmHG Vent. Rate : 79 BPM Atrial Rate : 79 BPM P-R Int : 188 ms QRS Dur : 78 ms QT Int : 380 ms P-R-T Axes : 60 -5 25 degrees QTcB Int : 435 ms Normal sinus rhythm Normal ECG No previous ECGs available Confirmed by Meredith Peralta ([id number]), greeting card editor LAURA MACHUCA ([id number]) on 02/23/2025 10:41:32 AM Referred By: JOSE Confirmed By: Meredith Peralta 02/23/25 1041 Date _ Meredith Peralta MD CC: OPENER TENDER-C Hui Valdes; Dr. Jerrell Garcia MD ~ Signed [facility] Other Phone: MR/POSTOP.ANEgil 02-23-2025 MR/POSTOP.[facility] Medical Records Department [address] [place] [address] Anesthesia Postop Eval I 02/23/25 1454 MR#: [id number] Acct: [id number] Name: DANE OLIVERA N Rep #: [id number] : 1985 39 From: Twin [place] CRNA PCP: Hui Valdes OPENER TENDER-C Status:ADM IN Y Race: C Location: PR3 VT751-5 Anesthesia: Postop Eval I Current Vital Signs Temperature: 97.2 F Pulse Rate: 103 Blood Pressure: 147/93 Respiratory Rate: 18 Pulse Ox: 94 Assessment Airway patent: Yes Spontaneous unlabored respirations: Yes nausea: No Vomiting: No Anesthesia Complication: No Fluid Hydration Crystalloid volume administer (ml): 1,000 Total IV fluid infused: 1,000 Progress Note Anesthesia document: Postop Eval 1 completed: Yes 02/23/25 1454 Date Twin Chantale 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 OPERATOR Cosigner Signature: Date CC: Signed Normal [facility] MR/[id number] 02-23-2025 MR/POSTOPAN2 [facility] Medical Records Department [address] [place] [address] Anesthesia Postop Eval II 02/23/25 1530 MR#: [id number] Acct: [id number] Name: DANE OLIVERA Rep #: [id number] : 1985 39 From: Paul Cox MD PCP: KOSTA Gomez Status:ADM IN Y Race: C Location: [place] [address] Anesthesia Postop Eval I Sum Postop Eval Completion status Anesthesia document: Postop Eval 1 completed: Yes Anesthesia Postop Eval I Summary Anesthesia Postop Eval I Summary: Anesthesia Postop Eval I: Assessment Summary Airway patent Yes 02/23/25 14:54 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 OPERATOR.TNES Spontaneous unlabored Yes 02/23/25 14:54 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 OPERATOR.TNES respirations Mental status nausea No 02/23/25 14:54 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 OPERATOR.TNES Vomiting No 02/23/25 14:54 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 OPERATOR.TNES Anesthesia Postop Eval I: Fluid Summary Crystalloid volume administer 1,000 02/23/25 14:54 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 OPERATOR.TNES (ml) Colloids volume administered ( ml) Blood Product volume administered (ml) Total IV fluid infused 1,000 02/23/25 14:54 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 OPERATOR.TNES Anesthesia Postop Eval I: Summary Notes Anesthesia Complication No 02/23/25 14:54 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 OPERATOR.ANDREA Anesthesia Complication Comment: Post-operative progress note Anesthesia: Postop Eval II Evaluation Mental status: Awake Pain Level: 0 nausea: No Vomiting: No 02/23/25 1530 Date Paul Cardoza Signature: Date CC: Signed Normal [facility] Operative Reporton 5 Operative Report [facility] Medical Records Department [address] [place] [address] Operative Report 02/23/25 1454 MR#: [id number] Acct: [id number] Name: DANE OLIVERA Rep #: [id number] : 1985 39 From: Desean Rodriguez MD PCP: KOSTA Gomez Status:ADM IN Location: [place] [address] Problems Associated Problem List Diagnoses (1) Acute cholecystitis: Procedures Digestive 40xxx-49xxx: 25275 CHOLECYSTECTOMY; WITH CHOLANGIOGRAPHY Operative Report (Standard) Operative Information Date of Procedure: 02/23/25 Pre-Operative Diagnosis: Acute cholecystitis Post-Operative Diagnosis: Acute cholecystitis Surgery/Procedure Performed: Laparoscopic cholecystectomy with intraoperative cholangiograms alternative financing specialist: Yes Store Gift Wrap Associate: Estrella Cooper Tasks completed by special event assistant: Closing, Retracting and Other Additional wet process assistant head miller?: No Type of Anesthesia: General and Local RN Documented Start/Stop Times: Operation Date: 02/23/25 13:00 Case Time Into Pre-Op 02/23/25 12:21 Anesthesia Start 02/23/25 13:14 Into Room 02/23/25 13:14 Procedure Start 02/23/25 13:34 Procedure End 02/23/25 14:41 Anesthesia End 02/23/25 14:46 Out of Room 02/23/25 14:46 Procedure Start Time: 13:34 Procedure Stop Time: 14:41 Select all DRAINS/GRAFTS/IMPLANTS that apply: None Estimated Blood Loss: 10 mL Specimen collected: Yes Description of specimen(s) removed: Gallbladder and contents Description of surgery: The patient is a 39-year-old female recently seen through the office originally for an umbilical hernia. She underwent hernia repair with mesh about a week ago. Less than a week after the surgery she presented to the emergency room with right upper quadrant pain. Imaging showed gallbladder wall thickening consistent with acute cholecystitis. Plans were made to admit the patient and plan for cholecystectomy. Preoperatively, we discussed the details of the planned procedure including the risks benefits and alternatives. She wished to proceed. She was brought to the operating room today following informed consent. She was placed supine on the operative table with arms outstretched arm boards. General endotracheal anesthesia was induced. Once adequately sedated, the abdomen was prepped and draped in the usual sterile manner. Due to the fact that she had a previous midline incision just above the umbilicus, an optical trocar was placed on the right side of the abdomen. This was a 5 mm trocar. This was placed without incident. Once in place the abdomen is then fully insufflated with CO2 gas. A 5 mm 0 degree scope was inserted. There were no signs of bowel or vascular injury. Another 5 mm trocar was placed just medial to this initial trocar. Another 5 mm trocar was placed in the lower midline for the 5 mm scope. Lastly a 10 mm trocar was placed under direct visualization in the epigastric region. All of these were placed under direct visualization without difficulty. The gallbladder was identified. It was distended and elongated. It was grasped near the fundus and was reflected in a cephalad direction. The infundibulum of the gallbladder was identified. There was some filmy yet edematous adhesions to the undersurface of the gallbladder. These were carefully taken down. The peritoneum on either side of the gallbladder was then scored using electrocautery. This provided better exposure to the infundibulum and cystic duct/cystic artery region. The duct and artery were then dissected out circumferentially. The lower portion of the gallbladder was dissected off of the liver bed in order to obtain a critical view of safety. There were 2 and only 2 structures visible going to and from the gallbladder. The cystic duct was clipped proximally with a 10 mm clip fire coordinator. A small ductotomy was made using curved scissors. Cholangiogram catheter was then inserted and cholangiograms were then performed using Omnipaque. This showed good opacification of the biliary tree without any obvious filling defects. The cholangiogram catheter was then removed. 3 metallic clips were placed proximally on the duct. This was then transected. The artery was clipped and transected in a similar manner. The gallbladder was then cauterized off the undersurface of the liver. There was quite a bit of edema in the tissue planes. Once the gallbladder was free was placed into a bag and brought out through the 10 mm trocar site. The trocar was then replaced. The right upper quadrant was then copiously irrigated with a liter of saline. There is no spillage of bile during the course of the operation. Hemostasis was excellent. There was some adhesions to the undersurface of the mesh. These adhesions were left in place in order to protect the mesh from any potential bacteria from the gallbladder. The fascia at the 10 mm trocar site was closed using no PDS with the aid of (more content not included)... Normal [facility] Surgery Specimen Level IIIon 02-23-2025 Surgery Specimen Level III Patient Age/Sex Location Account Attending Physician DANE OLIVERA 39/F MS3 [id number] Dr. Jerrell Garcia MD Specimen: [id number] Received: 02/23/25 Status: OLINDA Dorado Num: [id number] Spec Type: QI Terence Dr: Dr. Jerrell Garcia MD HEADER OPERATION: Laparoscopic, cholecystectomy with IOC PRE-OP DIAGNOSIS: Acute cholecystitis TISSUE SUBMITTED: A- Gallbladder MICROSCOPIC DIAGNOSIS A. 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 GROSS DESCRIPTION A. Received in formalin labeled with the patient's name and date of . Designated as gallbladder is a 12.0 x 4.1 x 3.6 cm schmidt-pink edematous and intact gallbladder with attached, patent cystic duct (inked black, shaved) and an adjacent 1.9 cm lymph node. There are focal serosal adhesions. The gallbladder contains light yellow tenacious bile admixed with numerous multifaceted green biliary calculi, 0.3 cm to 0.8 cm. The mucosa is pale schmidt and edematous with patchy erythema and a maximum wall thickness of 0.3 cm. No cholesterolosis is grossly appreciated. Care Team Assistant sections are submitted in 2 cassettes follows: A1: Margin, lymph node, serosal adhesion A2: Cross-sections [facility] [place]/23/2025 CPT:55003 Patient Age/Sex Location Account Attending Physician DENBENYDANE N 39/F MS3 [id number] Dr. Jerrell Garcia MD Signed (signature on file) Dr. Chan Patterson MD 02/24/25 1601 Normal [facility] Comment on above: Performed By: #### P SUIII ####[facility] [id number] [place], [address] Absolute lymphocyte countOrd ered By: Jerrell Garcia on 02-22-2025 Lymphocytes Auto (Unsp spec) [#/Vol] 3.36 10*3/uL 0.83-4.51 [facility] Absolute lymphocyte countOrd ered By: Kayden Smith on 02-22-2025 Lymphocytes Auto (Unsp spec) [#/Vol] 2.99 10*3/uL 0.83-4.51 [facility] Absolute neutrophil countOrd ered By: Jerrell Garcia on 02-22-2025 Neutrophils (Bld) [#/Vol] 6.8 10*3/uL 2.0-7.7 [facility] Absolute neutrophil countOrd ered By: Kayden Smith on 02-22-2025 Neutrophils (Bld) [#/Vol] 8.4 10*3/uL High 2.0-7.7 [facility] Anion gap in Serum or Plasma Ordered By: Jerrell Garcia on 02-22-2025 Anion gap [Moles/Vol] 11 mmol/L 01-27 [facility] Anion gap in Serum or Plasma Ordered By: Kayden Smith on 02-22-2025 Anion gap [Moles/Vol] 12 mmol/L 01-27 [facility] Automated lymphocyte count a s percentage of total leukocytesOrdered By: Jerrell Garcia on 02-22-2025 Lymphocytes/100 WBC Auto (Unsp spec) 29.6 % [facility] Automated lymphocyte count a s percentage of total leukocytesOrdered By: Kayden Smith on 02-22-2025 Lymphocytes/100 WBC Auto (Unsp spec) 23.7 % [facility] BUN/creatinine ratioOrdered By: Jerrell Garcia on 02-22-2025 Urea nitrogen/Creatinine [Mass ratio] 12.3 mg/mg 07-04 [facility] BUN/creatinine ratioOrdered By: Kayden Smith on 02-22-2025 Urea nitrogen/Creatinine [Mass ratio] 13.0 mg/mg 07-04 [facility] Basophil percentageOrdered B y: Jerrell Garcia on 02-22-2025 Basophils/100 WBC (Bld) 0.7 % 0-1 [facility] Basophil percentageOrdered B y: Kayden Smith on 02-22-2025 Basophils/100 WBC (Bld) 0.8 % 0-1 [facility] Bilirubin, totalOrdered By: Jerrell Garcia on 02-22-2025 Bilirubin [Mass/Vol] 0.30 mg/dL 0.00-1.30 [facility] Bilirubin, totalOrdered By: Kayden Smith on 02-22-2025 Bilirubin [Mass/Vol] mg/dL 0.00-1.30 [facility] Blood manual differential co mment interpretation (narrative result)Ordered By: Kayden Smith on 02-22-2025 Manual differential comment Shiva (Bld) [Interp] SCANNED [facility] CBC W/Diff, Automatedon 02-13 PLT EST ADEQUATE Normal ADEQ [facility] Comment on above: Performed By: #### L 501.2450, L500.4050, L100.0100 #### [facility] Laboratory [address] [place], [address] SMEAR COMMENT SCANNED Normal [facility] Comment on above: Performed By: #### L 501.2450, L500.4050, L100.0100 #### [facility] [address] [place], [address] Absolute Lymph 3.36 X10 3/uL Normal 0.83-4.51 [facility] Comment on above: Performed By: #### L 100.0100, L500.4050 #### [facility] [address] [place], [address] Absolute Neut 6.8 X10 3/uL Normal 2.0-7.7 [facility] Comment on above: Performed By: #### L 100.0100, L500.4050 #### [facility] [address] [place], [address] Basophils/100 WBC (Bld) 0.7 % Normal 0-1 [facility] Comment on above: Performed By: #### L 100.0100, L500.4050 #### [facility] [address] [place], [address] Eosinophils/100 WBC (Bld) 1.9 % Normal 0-5 [facility] Comment on above: Performed By: #### L 100.0100, L500.4050 #### [facility] [address] [place], [address] Erythrocyte distribution width (RBC) [Ratio] 12.1 % Normal 11.6-14.6 [facility] Comment on above: Performed By: #### L 100.0100, L500.4050 #### [facility] [address] [place], [address] Hematocrit (Bld) [Volume fraction] 32.8 % Low 37-47 [facility] Comment on above: Performed By: #### L 100.0100, L500.4050 #### [facility] [address] [place], [address] Hemoglobin (Bld) [Mass/Vol] 11.1 g/dL Low 12.0-15.0 [facility] Comment on above: Performed By: #### L 100.0100, L500.4050 #### [facility] [address] [place], [address] IG% 0.400 Normal 0.0-0.9 [facility] Comment on above: Result Comment: IG% - Immature Granulocytes (promyelocytes, myelocytes and metamyelocytes) > 1% indicates that a LEFT SHIFT is Present. Performed By: #### L 100.0100, L500.4050 #### [facility] [address] [place], [address] Lymphocytes/100 WBC (Bld) 29.6 % Normal 19-41 [facility] Comment on above: Performed By: #### L 100.0100, L500.4050 #### [facility] [address] [place], [address] MCH (RBC) [Entitic mass] 31.0 pg Normal 27.0-32.0 [facility] Comment on above: Performed By: #### L 100.0100, L500.4050 #### [facility] [address] [place], [address] MCHC (RBC) [Mass/Vol] 33.8 g/dL Normal 32-36 [facility] Comment on above: Performed By: #### L 100.0100, L500.4050 #### [facility] [address] [place], [address] MCV (RBC) [Entitic vol] 91.6 fL Normal 81-99 [facility] Comment on above: Performed By: #### L 100.0100, L500.4050 #### [facility] [address] [place], [address] Monocytes/100 WBC (Bld) 7.5 % Normal 0-10 [facility] Comment on above: Performed By: #### L 100.0100, L500.4050 #### [facility] [address] [place], [address] Neutrophils/100 WBC (Bld) 59.9 % Normal 47-70 [facility] Comment on above: Performed By: #### L 100.0100, L500.4050 #### [facility] [address] [place], [address] Nucleated RBC (Bld) [#/Vol] 0 10*3/uL Normal 0-5 [facility] Comment on above: Performed By: #### L 100.0100, L500.4050 #### [facility] [address] [place], [address] Platelet mean volume (Bld) [Entitic vol] 9.3 fL Normal 6.2-12.0 [facility] Comment on above: Performed By: #### L 100.0100, L500.4050 #### [facility] [address] [place], [address] Platelets (Bld) [#/Vol] 362 10*3/uL Normal 150-450 [facility] Comment on above: Performed By: #### L 100.0100, L500.4050 #### [place] [facility] [address] [place], [address] RBC (Bld) [#/Vol] 3.58 10*6/uL Low 4.2-5.4 [facility] [facility] Comment on above: Performed By: #### L 100.0100, L500.4050 #### [facility] [address] [place], [address] RDW SD 40.5 fl Normal 35.1-43.9 [facility] Comment on above: Performed By: #### L 100.0100, L500.4050 #### [facility] [address] [place], [address] WBC (Bld) [#/Vol] 11.3 10*3/uL High 4.4-11.0 [facility] Comment on above: Performed By: #### L 100.0100, L500.4050 #### [facility] [address] [place], [address] Carbon dioxide, total [Moles /volume] in Central venous bloodOrdered By: Jerrell Garcia on 02-22-2025 CO2 [Moles/Vol] 21.0 mmol/L 21.0-32.0 [facility] Carbon dioxide, total [Moles /volume] in Central venous bloodOrdered By: Kayden Smith on 02-22-2025 CO2 [Moles/Vol] 21.6 mmol/L 21.0-32.0 [facility] Chloride assayOrdered By: Ashley Garcia on 02-22-2025 Chloride [Moles/Vol] 109 mmol/L High 98-108 [facility] Chloride assayOrdered By: Werner Smith on 02-22-2025 Chloride [Moles/Vol] 105 mmol/L 98-108 [facility] Comprehensive Metabolic Prof ilon 02-22-2025 Albumin [Mass/Vol] 3.8 g/dL Normal 3.5-5.[address] [facility] Comment on above: Performed By: #### L 100.0100, L500.4050 #### [facility] [address] [place], [address] Albumin/Globulin [Mass ratio] 1.8 {ratio} Normal 0.9-2.4 [facility] Comment on above: Performed By: #### L 100.0100, L500.4050 #### [facility] [address] [place], [address] ALK PHOS 46 U/L Normal 35-104 [facility] Comment on above: Performed By: #### L 100.0100, L500.4050 #### [facility] [address] [place], [address] ALT [Catalytic activity/Vol] 15 U/L Normal <=34 [facility] Comment on above: Performed By: #### L 100.0100, L500.4050 #### [facility] [address] [place], [address] AST [Catalytic activity/Vol] 17 U/L Normal <=31 [facility] Comment on above: Performed By: #### L 100.0100, L500.4050 #### [facility] [address] [place], [address] Bilirubin [Mass/Vol] 0.30 mg/dL Normal 0.00-1.30 [facility] Comment on above: Performed By: #### L 100.0100, L500.4050 #### [facility] [address] [place], [address] BUN/CRE 12.3 RATIO Normal 10-20 [facility] Comment on above: Performed By: #### L 100.0100, L500.4050 #### [facility] [address] [place], [address] Calcium [Mass/Vol] 8.5 mg/dL Normal 7.6-11.[address] [facility] Comment on above: Performed By: #### L 100.0100, L500.4050 #### [facility] [address] [place], [address] Chloride [Moles/Vol] 109 mmol/L High 98-108 [facility] Comment on above: Performed By: #### L 100.0100, L500.4050 #### [facility] [address] [place], [address] CO2 [Moles/Vol] 21.0 mmol/L Normal 21.0-32.0 [facility] Comment on above: Performed By: #### L 100.0100, L500.4050 #### [facility] [address] [place], [address] Creatinine [Mass/Vol] 0.67 mg/dL Low 0.70-1.20 [facility] Comment on above: Performed By: #### L 100.0100, L500.4050 #### [facility] [address] [place], [address] ECRCL 111.94 ml/min Normal 50-250 [facility] Comment on above: Performed By: #### L 100.0100, L500.4050 #### [facility] [address] [place], [address] GAP 11 Normal 5-15 [facility] Comment on above: Performed By: #### L 100.0100, L500.4050 #### [facility] [address] [place], [address] GFR/1.73 sq M.predicted among non-blacks MDRD (S/P/Bld) [Vol rate/Area] 114 mL/min/{1.73_m2} Normal >60 [facility] Comment on above: Result Comment: mL/m in/1.73m2 CKD-EPI Creatinine Equation (2020) Performed By: #### L 100.0100, L500.4050 #### [facility] [address] [place], [address] Globulin (S) [Mass/Vol] 2.1 g/dL Low 2.2-4.2 [facility] Comment on above: Performed By: #### L 100.0100, L500.4050 #### [facility] [address] [place], [address] Glucose [Mass/Vol] 85 mg/dL Normal 70-[address] [facility] Comment on above: Performed By: #### L 100.0100, L500.4050 #### [facility] [address] [place], [address] Potassium [Moles/Vol] 3.3 mmol/L Normal 3.3-5.1 [facility] Comment on above: Performed By: #### L 100.0100, L500.4050 #### [facility] [address] [place], [address] Sodium [Moles/Vol] 141 mmol/L Normal 133-[address] [facility] Comment on above: Performed By: #### L 100.0100, L500.4050 #### [facility] [address] [place], [address] T PROT 5.9 g/dL Normal 5.9-8.4 [facility] Comment on above: Performed By: #### L 100.0100, L500.4050 #### [facility] [address] [place], [address] Urea nitrogen [Mass/Vol] 8 mg/dL Normal 4-19 [facility] Comment on above: Performed By: #### L 100.0100, L500.4050 #### [facility] [address] [place], [address] Albumin [Mass/Vol] 4.0 g/dL Normal 3.5-5.[address] [facility] Comment on above: Performed By: #### L 501.2450, L500.4050, L100.0100 #### [facility] [address] [place], [address] Albumin/Globulin [Mass ratio] 1.6 {ratio} Normal 0.9-2.4 [facility] Comment on above: Performed By: #### L 501.2450, L500.4050, L100.0100 #### [facility] [address] [place], [address] ALK PHOS 59 U/L Normal 35-104 [facility] Comment on above: Performed By: #### L 501.2450, L500.4050, L100.0100 #### [facility] [address] [place], [address] ALT [Catalytic activity/Vol] 18 U/L Normal <=34 [facility] Comment on above: Result Comment: Hemo lysis present, Results??could be affected. ?? Performed By: #### L 501.2450, L500.4050, L100.0100 #### [facility] [address] [place], [address] AST [Catalytic activity/Vol] 38 U/L High <=31 [facility] Comment on above: Result Comment: Hemo lysis present, Results??could be affected. ?? Performed By: #### L 501.2450, L500.4050, L100.0100 #### [facility] [address] [place], [address] BUN/CRE 13.0 RATIO Normal 10-20 [facility] Comment on above: Performed By: #### L 501.2450, L500.4050, L100.0100 #### [facility] [address] [place], [address] Calcium [Mass/Vol] 9.1 mg/dL Normal 7.6-11.[address] [facility] Comment on above: Performed By: #### L 501.2450, L500.4050, L100.0100 #### [facility] [address] [place], [address] Chloride [Moles/Vol] 105 mmol/L Normal 98-108 [facility] Comment on above: Performed By: #### L 501.2450, L500.4050, L100.0100 #### [facility] [address] [place], [address] CO2 [Moles/Vol] 21.6 mmol/L Normal 21.0-32.0 [facility] Comment on above: Performed By: #### L 501.2450, L500.4050, L100.0100 #### [facility] [address] [place], [address] Creatinine [Mass/Vol] 0.79 mg/dL Normal 0.70-1.20 [facility] Comment on above: Performed By: #### L 501.2450, L500.4050, L100.0100 #### [facility] [address] [place], [address] ECRCL 95.38 ml/min Normal 50-250 [facility] Comment on above: Performed By: #### L 501.2450, L500.4050, L100.0100 #### [facility] [address] [place], [address] GAP 12 Normal 5-15 [facility] Comment on above: Performed By: #### L 501.2450, L500.4050, L100.0100 #### [facility] [address] [place], [address] GFR/1.73 sq M.predicted among non-blacks MDRD (S/P/Bld) [Vol rate/Area] 97 mL/min/{1.73_m2} Normal >60 [facility] Comment on above: Result Comment: mL/m in/1.73m2 CKD-EPI Creatinine Equation (2020) Performed By: #### L 501.2450, L500.4050, L100.0100 #### [facility] [address] [place], [address] Globulin (S) [Mass/Vol] 2.6 g/dL Normal 2.2-4.2 [facility] Comment on above: Performed By: #### L 501.2450, L500.4050, L100.0100 #### [facility] [address] [place], [address] Glucose [Mass/Vol] 92 mg/dL Normal 70-[address] [facility] Comment on above: Performed By: #### L 501.2450, L500.4050, L100.0100 #### [facility] [address] [place], [address] Potassium [Moles/Vol] 4.0 mmol/L Normal 3.3-5.1 [facility] Comment on above: Result Comment: Hemo lysis present, Results??could be affected. ?? Performed By: #### L 501.2450, L500.4050, L100.0100 #### [facility] [address] [place], [address] Sodium [Moles/Vol] 139 mmol/L Normal 133-[address] [facility] Comment on above: Performed By: #### L 501.2450, L500.4050, L100.0100 #### [facility] [address] [place], [address] T BILI < 0.15 Normal 0.00-1.30 [facility] Comment on above: Performed By: #### L 501.2450, L500.4050, L100.0100 #### [facility] [address] [place], [address] T PROT 6.6 g/dL Normal 5.9-8.4 [facility] Comment on above: Performed By: #### L 501.2450, L500.4050, L100.0100 #### [facility] [address] [place], [address] Urea nitrogen [Mass/Vol] 10 mg/dL Normal 4-19 [facility] Comment on above: Performed By: #### L 501.2450, L500.4050, L100.0100 #### [facility] [address] [place], [address] Emergency Department Summary on 02-22-2025 Emergency Department Summary [facility] Medical Records Department [address] [place] [address] Emergency Department Summary 02/22/25 MR#: [id number] Acct: [id number] Name: DANE OLIVERA Rep #: [id number] : 1985 39 From: Kayden Smith DO PCP: Hui Valdes OPENER TENDER-C Status:REG ER Location: ED HPI History of Present Illness Chief Complaint: Abd Pain Narrative Narrative: Patient is a 39-year-old female with past medical history of recent ventral hernia repair with mesh placement, depression, migraine headaches who presents to the emergency department chief complaint of abdominal pain nausea. Patient states that she is not vomiting but feels like she wants to constantly. Patient states that she was here earlier today she was sent home she was not given any medications to go home with. She states that she had been trying to take Tylenol and ibuprofen at home and this is not helping her pain therefore she came back here for further evaluation management. Patient rates her pain an 8 out of 10 and states that it is in the right upper abdomen. [facility] Medical History Wears glasses Wears dentures [...] 25 mg PO QDAY HEART RATE 02/02/25 02/20/25 History tablet,extended release 24 hr solifenacin 10 mg tablet 5 mg PO QDAY OAB 02/02/25 02/20/25 History venlafaxine 75 mg capsule,extended 75 mg PO QAM 02/02/25 Unknown Hi story release 24 hr acetaminophen 500 mg capsule 1,000 mg PO Q6H PRN pain 02/21/25 02/21/25 History sumatriptan succinate 100 mg tablet 100 mg PO Q2H PRN migraine 06/09 Unknown History Allergy/AdvReac Type Severity Reaction Status Date / Time amoxicillin Allergy Unknown unknown Verified 02/21/25 23:32 Family History Son Asthma Grandmother Diabetes Breast cancer Father Hypertension Surgical History History of esophagogastroduodenoscopy (EGD) Previous section Social History Smoking Status: Current every day smoker tobacco type: e-cigarettes quit status: not considering quitting ROS ROS ED ROS Narrative Constitutional: Denies any fevers, chills, headaches Eyes: Denies change in vision double vision blurry vision Cardiovascular: Denies chest pain Respiratory: Shortness of breath Abdomen: Complains of abdominal pain and nausea as noted above she states that she is passing gas and had a bowel movement prior to arrival : Denies urinary symptoms Neurological: Denies numbness, weakness, tingling Musculoskeletal: Denies back pain Skin: Denies rashes or lesions EXAM Physical Exam Narrative Exam Narrative: General: Patient lying in bed rest comfortably did not appear to be acute distress Head: Atraumatic, normocephalic Eyes: PERRL bilaterally, EOMI bilaterally, no conjunctival injection noted Neck: Soft, supple, trachea midline Cardiovascular: Regular rate and rhythm no murmurs gallops rubs noted Respiratory: Clear to auscultation bilaterally Abdomen: Soft, nondistended, tenderness to palpation the right upper quadrant positive Arana sign Extremities: +5/5 strength noted in the bilateral upper and lower extremities Neurological: Patient is following commands today she was at [facility] the year is 2024 Skin: Warm, dry, intact surgical incision healing well without concerns for infection Const Vital Signs: 02/21/25 23:30 02/22/25 01:29 02/22/25 03:00 Temperature 98.1 F Temperature Source Oral Pulse Rate 84 70 72 Respiratory Rate 20 H 18 18 Blood Pressure 128/79 H 150/96 H 148/60 H Blood Pressure Mean 95 114 89 Pulse Ox 100 99 Oxygen Delivery Method Room Air Room Air MDM MDM MDM Narrative Medical decision making narrative: Patient is a 39-year-old female who presented to the emergency department the chief complaint of abdominal pain. On the differential diagnosis includes but not limited to cholecystitis, cholelithiasis, pancreatitis, bowel obstruction although have low suspicion for this as she is passing gas had a CT earlier today that did not show any evidence of this and she had a bowel movement prior to arrival. Patient will be on IV fluids morphine Zofran. Patient's workup from earlier today reviewed and showed no evidence leukocytosis white blo (more content not included)... Normal [facility] Eosinophil percentageOrdered By: Jerrell Garcia on 02-22-2025 Eosinophils/100 WBC (Bld) 1.9 % 0-5 [facility] Eosinophil percentageOrdered By: Kayden Smith on 02-22-2025 Eosinophils/100 WBC (Bld) 1.5 % 0-5 [facility] Erythrocyte distribution wid th ratioOrdered By: Jerrell Garcia on 02-22-2025 Erythrocyte distribution width (RBC) [Ratio] 12.1 % 11.6-14.6 [facility] Erythrocyte distribution wid th ratioOrdered By: Kayden Smith on 02-22-2025 Erythrocyte distribution width (RBC) [Ratio] 12.3 % 11.6-14.6 [facility] Erythrocyte distribution wid th standard deviationOrdered By: Jerrell Garcia on 02-22-2025 Erythrocyte distribution width (RBC) [Ratio] 40.5 fl 35.1-43.9 [facility] Erythrocyte distribution wid th standard deviationOrdered By: Kayedn Smith on 02-22-2025 Erythrocyte distribution width (RBC) [Ratio] 41.1 fl 35.1-43.9 [facility] Gallbladderon 02-22-2025 Gallbladder [facility] [address] [place] [address] Gallbladder MR#: [id number] Acct: [id number] Name: DANE OLIVERA Rep #: [id number] : 1985 F 39 From: Jorge lorenzo MD PCP: Hui Valdes NP-C Status: REG ER Study: Gallbladder Date of Exam: 02/22/25 Exam# [id number] Ordering Dr: Kayden Smith DO PROCEDURE: GALLBLADDER 02/22/2025 REASON FOR EXAM: RUQ PAIN COMPARISON: None FINDINGS: The liver is enlarged and measures 20 cm. It shows slightly increased parenchymal echogenicity. No obvious focal lesions. Portal vein is patent with hepatopetal flow. Gallbladder: Is distended and measures 16.2 cm. Positive Arana's sign is noted. Trace pericholecystic fluid collection is noted. Multiple echogenic stones are seen. Focal gallbladder wall thickening measuring 7 mm is noted. CBD measures 3 mm. Pancreas is unremarkable with no obvious lesions. Right kidney measures 10.5 x 5.6 x 5.5 cm. Cortex 1.5 cm. No hydronephrosis. No stones. No mass. US/Gallbladder IMPRESSION: Findings suggest acute calculus cholecystitis. Gallbladder hydrops. Fatty hepatomegaly. Findings were discussed with Dr. Smith at 3:41 am Reading Location: [place] [address] CC: OPENER TENDER-C Hui Valdes; Dr. Kayden Smith DO Cost Control Analyst: Signed Normal [facility] Glomerular filtration rate ( GFR) estimation/1.73 sq m using serum, plasma, or whole bOrdered By: Jerrell Garcia on 02-22-2025 GFR/1.73 sq M.predicted among non-blacks MDRD (S/P/Bld) [Vol rate/Area] 114 mL/min/{1.73_m2} >60 [facility] Comment on above: mL/min/1.73m2 CKD-EP I Creatinine Equation (2020) Glomerular filtration rate ( GFR) estimation/1.73 sq m using serum, plasma, or whole bOrdered By: Kayden Smith on 02-22-2025 GFR/1.73 sq M.predicted among non-blacks MDRD (S/P/Bld) [Vol rate/Area] 97 mL/min/{1.73_m2} >60 [facility] Comment on above: mL/min/1.73m2 CKD-EP I Creatinine Equation (2020) H AND P Exam - Surgicalon H&P Exam - Surgical [facility] Medical Records Department [address] [place] [address] H P Exam - Surgical 02/22/25 0710 MR#: [id number] Acct: [id number] Name: DANE OLIVERA Rep #: [id number] : 1985 39 From: Jerrell Garcia MD PCP: KOSTA Gomez Status:ADM IN Location: [facility] LY851-4 HPI - General General Date of Admission: 02/22/25 HPI Narrative DANE OLIVERA, is a 39 F who presents with abdominal pain. The patient is 1 week postop from a an incarcerated ventral hernia repair. She was doing well until yesterday and started developing abdominal pain. She does state that she vomited before admission. She says she is not having a fever but she does describe chills. She does not have any pain in her lower abdomen. Her pain is in the right upper quadrant. [facility] Medical History (Updated 02/22/25 @ 04:47 by Trinity Paulino) Hernia Wears glasses Wears dentures Depression Bladder disease [...] 25 mg PO QDAY HEART RATE 02/02/25 02/20/25 History tablet,extended release 24 hr solifenacin 10 mg tablet 5 mg PO QDAY OAB 02/02/25 02/20/25 History venlafaxine 75 mg capsule,extended 75 mg PO QAM 02/02/25 Unknown Hi story release 24 hr acetaminophen 500 mg capsule 1,000 mg PO Q6H PRN pain 02/21/25 02/21/25 History sumatriptan succinate 100 mg tablet 100 mg PO Q2H PRN migraine 06/09 Unknown History Allergy/AdvReac Type Severity Reaction Status Date / Time amoxicillin Allergy Unknown unknown Verified 02/21/25 23:32 Family History Son Asthma Grandmother Diabetes Breast cancer Father Hypertension Surgical History History of esophagogastroduodenoscopy (EGD) Previous section Social History Smoking Status: Current every day smoker tobacco type: e-cigarettes quit status: not considering quitting ROS Constitutional Constitutional: Reports chills; Denies anorexia, fatigue or fever(s) Eyes Eyes: Denies blurry vision ENT HEENT: Denies abnormal hearing Respiratory/Chest Respiratory/Chest: Denies cough or dyspnea Gastrointestinal Gastrointestinal: Reports abdominal pain and vomiting; Denies change in bowel habits, coffee ground emesis or constipation Genitourinary Genitourinary: Denies change in urinary stream Musculoskeletal Musculoskeletal: Denies abnormal gait Integumentary Integumentary: Denies jaundice Neurologic Neurologic: Denies abnormal gait Psychiatric Psychiatric: Denies anxiety Endocrine Endocrinology: Denies flushing Vital Signs Vital Signs Vital Signs: 02/21/25 23:30 02/22/25 01:29 02/22/25 03:00 Temperature 98.1 F Temperature Source Oral Pulse Rate 84 70 72 Respiratory Rate 20 H 18 18 Blood Pressure 128/79 H 150/96 H 148/60 H Blood Pressure Mean 95 114 89 Blood Pressure Source Blood Pressure Position Blood Pressure Location Pulse Ox 100 99 Oxygen Delivery Method Room Air Room Air 02/22/25 04:06 02/22/25 04:50 Temperature 98.6 F 98 F Temperature Source Oral Pulse Rate 82 71 Respiratory Rate 16 16 Blood Pressure 155/92 H 137/78 H Blood Pressure Mean 113 97 Blood Pressure Source Monitor Blood Pressure Position Semi-Fowlers Blood Pressure Location Right Arm Pulse Ox 100 100 Oxygen Delivery Method Room Air Weight Weight: 165 lb 12.602 oz Body Mass Index (BMI) 28.4 Physical Exam Const oriented x3 and no apparent distress Resp normal respiratory effort Cardio regular rate and regular rhythm GI soft to palpation Palpation: tender RUQ Extremity normal to inspection Results Lab / Micro Data 02/22/25 00:48 02/22/25 00:48 Labs: Laboratory Results - last 24 hr 02/22/25 00:48: WBC 12.6 H, RBC 4.09 L, Hgb 12.7, Hct 37.5, MCV 91.7, MCH 31.1, MCHC 33.9, RDW Std Deviation 41.1, RDW Coeff of Concetta 12.3, Plt Count TNP, MPV 9.5, Immature Gran % (Auto) 0.200, Neut % (Auto) 66.6, Lymph % (Auto) 23.7, Villalba % (Auto) 7.2, Eos % (Auto) 1.5, Baso % (Auto) 0.8, Absolute Neuts (auto) 8.4 H, Absolute Lymphs (auto) 2.99, Nucleated RBC % 0, Differential Comment SCANNED, Platelet Estimate ADEQUATE, Sodium 139, Potassium 4.0, Chloride 105, Carbon Dioxide 21.6, Anion Gap 12, BUN 10, Creatinine 0.79, Estim Creat Clear Calc 95.38, Est GFR (MDRD) No (more content not included)... Normal [facility] Hematocrit Auto (Bld) [Volum e fraction]Ordered By: Jerrell Garcia on 02-22-2025 Hematocrit (Bld) [Volume fraction] 32.8 % Low 37-47 [facility] Hematocrit Auto (Bld) [Volum e fraction]Ordered By: Kayden Smith on 02-22-2025 Hematocrit (Bld) [Volume fraction] 37.5 % 37-47 [facility] Hemoglobin measurementOrdere d By: Jerrell Garcia on 02-22-2025 Hemoglobin (Bld) [Mass/Vol] 11.1 g/dL Low 12.0-15.0 [facility] Hemoglobin measurementOrdere d By: Kayden Smith on 02-22-2025 Hemoglobin (Bld) [Mass/Vol] 12.7 g/dL 12.0-15.0 [facility] Immature granulocytes/100 WB C Auto (Bld)Ordered By: Jerrell Garcia on 02-22-2025 Immature granulocytes/100 WBC (Bld) 0.400 % 0.0-0.9 [facility] Comment on above: IG% - Immature Granu locytes (promyelocytes, myelocytes and metamyelocytes) > 1% indicates that a LEFT SHIFT is Present. Immature granulocytes/100 WB C Auto (Bld)Ordered By: Kayden Smith on 02-22-2025 Immature granulocytes/100 WBC (Bld) 0.200 % 0.0-0.9 [facility] Comment on above: IG% - Immature Granu locytes (promyelocytes, myelocytes and metamyelocytes) > 1% indicates that a LEFT SHIFT is Present. Laboratory - Chemistry and C hemistry - challengeOrdered By: Jerrell Garcia on 02-22-2025 AST [Catalytic activity/Vol] 17 U/L <32 [facility] Laboratory - Chemistry and C hemistry - challengeOrdered By: Kayden Smith on 02-22-2025 AST [Catalytic activity/Vol] 38 U/L High <32 [facility] Comment on above: Hemolysis present, R esults could be affected. Lipaseon 02-22-2025 Lipase [Catalytic activity/Vol] 37 U/L Normal 13-75 [facility] Comment on above: Result Comment: Jaz nance note: LIPASE revised reference range effective 22. New Lipase methodology. Expected to produce lower values than the previous assay method. NEW Reference Range: 13 - 75 U/L Performed By: #### L 501.2450, L500.4050, L100.0100 #### [facility] [address] [place] [address]. [place], [address] Lipase measurementOrdered By : Kayden Smith on 02-22-2025 Lipase [Catalytic activity/Vol] 37 U/L 13-75 [facility] Comment on above: Please note:LIPASE r evised reference range effective 22. New Lipase methodology. Expected to produce lower values than the previous assay method. NEW Reference Range: 13 - 75 U/L MCV (mean corpuscular volume ) determinationOrdered By: Jerrell Garcia on 02-22-2025 MCV (RBC) [Entitic vol] 91.6 fL 81-99 [facility] MCV (mean corpuscular volume ) determinationOrdered By: Kayden Smith on 02-22-2025 MCV (RBC) [Entitic vol] 91.7 fL 81-99 [facility] Mean corpuscular hemoglobin (MCH) determinationOrdered By: Jerrell Garcia on 02-22-2025 MCH (RBC) [Entitic mass] 31.0 pg 27.0-32.0 [facility] Mean corpuscular hemoglobin (MCH) determinationOrdered By: Kayden Smith on 02-22-2025 MCH (RBC) [Entitic mass] 31.1 pg 27.0-32.0 [facility] Mean corpuscular hemoglobin concentration (MCHC) determinationOrdered By: Jerrell Garcia on 02-22-2025 MCHC (RBC) [Mass/Vol] 33.8 g/dL 32-36 [facility] Mean corpuscular hemoglobin concentration (MCHC) determinationOrdered By: Kayden Smith on 02-22-2025 MCHC (RBC) [Mass/Vol] 33.9 g/dL 32-36 [facility] Mean platelet volume determi nationOrdered By: Jerrell Garcia on 02-22-2025 Platelet mean volume (Bld) [Entitic vol] 9.3 fL 6.2-12.0 [facility] Mean platelet volume determi nationOrdered By: Kayden Smith on 02-22-2025 Platelet mean volume (Bld) [Entitic vol] 9.5 fL 6.2-12.0 [facility] Monocyte percentageOrdered B y: Jerrell Garcia on 02-22-2025 Monocytes/100 WBC (Bld) 7.5 % 0-10 [facility] Monocyte percentageOrdered B y: Kayden Smith on 02-22-2025 Monocytes/100 WBC (Bld) 7.2 % 0-10 [facility] Neutrophil percentageOrdered By: Jerrell Garcia on 02-22-2025 Neutrophils/100 WBC (Bld) 59.9 % 47-70 [facility] Neutrophil percentageOrdered By: Kayden Smith on 02-22-2025 Neutrophils/100 WBC (Bld) 66.6 % 47-70 [facility] Nucleated red blood cell per centageOrdered By: Jerrell Garcia on 02-22-2025 Nucleated RBC/100 WBC (Bld) [Ratio] 0 % 0-5 [facility] Nucleated red blood cell per centageOrdered By: Kayden Smith on 02-22-2025 Nucleated RBC/100 WBC (Bld) [Ratio] 0 % 0-5 [facility] Platelet countOrdered By: Ashley Garcia on 02-22-2025 Platelets (Bld) [#/Vol] 362 10*3/uL 150-450 [facility] Platelet countOrdered By: Werner Smith on 02-22-2025 Platelet count TNP [facility] Comment on above: Test not performedPl ease note: For this sample, a platelet estimate is provided rather than a platelet count due to platelet clumping. Other parameters associated with this sample are not affected by platelet clumping. If a more accurate platelet count is required, a redraw of the patient will be necessary. Platelet estimateOrdered By: Kayden Smith on 02-22-2025 Platelets LM Ql (Bld) ADEQUATE ADEQ [facility] Potassium measurement (mass/ volume)Ordered By: Jerrell Garcia on 02-22-2025 Potassium (Unsp spec) [Mass/Vol] 3.3 mmol/L 3.3-5.1 [facility] Potassium measurement (mass/ volume)Ordered By: Kayden Smith on 02-22-2025 Potassium (Unsp spec) [Mass/Vol] 4.0 mmol/L 3.3-5.1 [facility] Comment on above: Hemolysis present, R esults could be affected. ,Urineon 02-22-2025 Beta HCG ( test) Ql (U) Negative Normal [facility] Comment on above: Result Comment: Very dilute urine specimens, as indicated by a low specific gravity, may not contain corporate sales representative levels of hCG. If is still suspected, a first morning urine specimen should be collected 48 hours later and tested. Performed By: #### L 400.8490 ####[facility] [address] [place], [address] RBC Auto (Bld) [#/Vol]Ordere d By: Jerrell Garcia on 02-22-2025 RBC (Bld) [#/Vol] 3.58 10*6/uL Low 4.2-5.4 [facility] RBC Auto (Bld) [#/Vol]Ordere d By: Kayden Smith on 02-22-2025 RBC (Bld) [#/Vol] 4.09 10*6/uL Low 4.2-5.4 [facility] Serum creatinine measurement (mass/volume)Ordered By: Jerrell Garcia on 02-22-2025 Creatinine [Mass/Vol] 0.67 mg/dL Low 0.70-1.20 [facility] Serum creatinine measurement (mass/volume)Ordered By: Kayden Smith on 02-22-2025 Creatinine [Mass/Vol] 0.79 mg/dL 0.70-1.20 [facility] Serum globulin measurementOr dered By: Jerrell Garcia on 02-22-2025 Globulin (S) [Mass/Vol] 2.1 g/dL Low 2.2-4.2 [facility] Serum globulin measurementOr dered By: Kayden Smith on 02-22-2025 Globulin (S) [Mass/Vol] 2.6 g/dL 2.2-4.2 [facility] Serum glucose measurement (m ass/volume)Ordered By: Jerrell Garcia on 02-22-2025 Glucose [Mass/Vol] 85 mg/dL 70-[address] [facility] Serum glucose measurement (m ass/volume)Ordered By: Kayden Smith on 02-22-2025 Glucose [Mass/Vol] 92 mg/dL 70-[address] [facility] Serum or plasma alanine daugherty otransferase (ALT) measurementOrdered By: Jerrell Garcia on 02-22-2025 ALT [Catalytic activity/Vol] 15 U/L <35 [facility] Serum or plasma alanine daugherty otransferase (ALT) measurementOrdered By: Kayden Smith on 02-22-2025 ALT [Catalytic activity/Vol] 18 U/L <35 [facility] Comment on above: Hemolysis present, R esults could be affected. Serum or plasma albumin hong urement (mass/volume)Ordered By: Jerrell Garcia on 02-22-2025 Albumin [Mass/Vol] 3.8 g/dL 3.5-5.[address] [facility] Serum or plasma albumin hong urement (mass/volume)Ordered By: Kayden Smith on 02-22-2025 Albumin [Mass/Vol] 4.0 g/dL 3.5-5.[address] [facility] Serum or plasma albumin/glob ulin mass ratioOrdered By: Jerrell Garcia on 02-22-2025 Albumin/Globulin [Mass ratio] 1.8 {ratio} 0.9-2.4 [facility] Serum or plasma albumin/glob ulin mass ratioOrdered By: Kayden Smith on 02-22-2025 Albumin/Globulin [Mass ratio] 1.6 {ratio} 0.9-2.4 [facility] Serum or plasma alkaline katherine sphatase measurementOrdered By: Jerrell Garcia on 02-22-2025 ALP [Catalytic activity/Vol] 46 U/L 35-104 [facility] Serum or plasma alkaline katherine sphatase measurementOrdered By: Kayden Smith on 02-22-2025 ALP [Catalytic activity/Vol] 59 U/L 35-104 [facility] Serum or plasma calcium hong urement (mass/volume)Ordered By: Jerrell Garcia on 02-22-2025 Calcium [Mass/Vol] 8.5 mg/dL 7.6-11.[address] [facility] Serum or plasma calcium hong urement (mass/volume)Ordered By: Kayden Smith on 02-22-2025 Calcium [Mass/Vol] 9.1 mg/dL 7.6-11.[address] [facility] Serum or plasma urea nitroge n measurement (mass/volume)Ordered By: Jerrell Garcia on 02-22-2025 Urea nitrogen [Mass/Vol] 8 mg/dL 4- [facility] Serum or plasma urea nitroge n measurement (mass/volume)Ordered By: Kayden Smith on 02-22-2025 Urea nitrogen [Mass/Vol] 10 mg/dL 4- [facility] Sodium levelOrdered By: Loreta Garcia on 02-22-2025 Sodium [Moles/Vol] 141 mmol/L 133-[address] [facility] Sodium levelOrdered By: Paulo Smith on 02-22-2025 Sodium [Moles/Vol] 139 mmol/L 133-[address] [facility] Total proteinOrdered By: Sebastien Garcia on 02-22-2025 Protein [Mass/Vol] 5.9 g/dL 5.9-8.[address] [facility] Total proteinOrdered By: Wenceslao Smith on 02-22-2025 Protein [Mass/Vol] 6.6 g/dL 5.9-8.[address] [facility] Urine testOrdered By: Paul Cox on 02-22-2025 HCG ( test) Ql (U) Negative [facility] Comment on above: Very dilute urine sp ecimens, as indicated by a low specificgravity, may not contain corporate sales representative levels of hCG. If is still suspected, a first morning urinespecimen should be collected 48 hours later and tested. White blood cell (WBC) count Ordered By: Jerrell Garcia on 02-22-2025 WBC (Bld) [#/Vol] 11.3 10*3/uL High 4.4-11.0 [facility] White blood cell (WBC) count Ordered By: Kayden Smith on 02-22-2025 WBC (Bld) [#/Vol] 12.6 10*3/uL High 4.4-11.0 [facility] Abdomen/Pelvis W IV Cont ONL Yon 02-21-2025 Abdomen/Pelvis W IV Cont ONLY [facility] Imaging Services [address] [place] [address] Abdomen/Pelvis W IV Cont ONLY MR#: [id number] Acct: [id number] Name: DANE OLIVERA Rep #: [id number] : 1985 F 39 From: Jordan cleaning MD PCP: Hui Valdes OPENER TENDER-C Status: [facility] ER Study: Abdomen/Pelvis W IV Cont ONLY Date of Exam: Exam# [id number] Ordering Dr: Yvon Becker DO PROCEDURE: ABDOMEN/PELVIS W IV CONT ONLY [...] examination is unchanged. Multiple gallstones. Reading Location: [place] [address] CC: KOSTA Ames Podlogar; Dr. Yovn Becker DO Cost Control Analyst: Signed Normal [facility] Absolute lymphocyte countOrd ered By: Yvon Becker on 02-21-2025 Lymphocytes Auto (Unsp spec) [#/Vol] 2.68 10*3/uL 0.83-4.51 [facility] Absolute neutrophil countOrd ered By: Yvon Becker on 02-21-2025 Neutrophils (Bld) [#/Vol] 5.3 10*3/uL 2.0-7.7 [facility] Anion gap in Serum or Plasma Ordered By: Yvon Becker on 02-21-2025 Anion gap [Moles/Vol] 11 mmol/L 5- [facility] Automated lymphocyte count a s percentage of total leukocytesOrdered By: Yvonbethel Becker on 02-21-2025 Lymphocytes/100 WBC Auto (Unsp spec) 29.7 % - [facility] BUN/creatinine ratioOrdered By: Oakley Rosita on 02-21-2025 Urea nitrogen/Creatinine [Mass ratio] 15.4 mg/mg 10- [facility] Basophil percentageOrdered B y: Yvon Becker on 02-21-2025 Basophils/100 WBC (Bld) 0.9 % 0-1 [facility] Bilirubin Test strip Ql (U)O rdered By: Yvon Becker on 02-21-2025 Bilirubin Ql (U) Negative Negative [facility] Bilirubin, totalOrdered By: Oakley Rosita on 02-21-2025 Bilirubin [Mass/Vol] 0.20 mg/dL 0.00-1.30 [facility] CBC W/Diff, Automatedon Absolute Lymph 2.68 X10 3/uL Normal 0.83-4.51 [facility] Comment on above: Performed By: #### L 503.6005, L501.2450, L100.0100, L500.4050 ####[facility] [address] [place], [address] Absolute Neut 5.3 X10 3/uL Normal 2.0-7.7 [facility] Comment on above: Performed By: #### L 503.6005, L501.2450, L100.0100, L500.4050 ####[facility] [address] [place], [address] Basophils/100 WBC (Bld) 0.9 % Normal 0-1 [facility] Comment on above: Performed By: #### L 503.6005, L501.2450, L100.0100, L500.4050 ####[facility] [address] [place], [address] Eosinophils/100 WBC (Bld) 2.0 % Normal 0-5 [facility] Comment on above: Performed By: #### L 503.6005, L501.2450, L100.0100, L500.4050 ####[facility] [address] [place], [address] Erythrocyte distribution width (RBC) [Ratio] 12.2 % Normal 11.6-14.6 [facility] Comment on above: Performed By: #### L 503.6005, L501.2450, L100.0100, L500.4050 ####[facility] [address] [place], [address] Hematocrit (Bld) [Volume fraction] 41.0 % Normal 37-47 [facility] Comment on above: Performed By: #### L 503.6005, L501.2450, L100.0100, L500.4050 ####[facility] [address] [place], [address] Hemoglobin (Bld) [Mass/Vol] 13.5 g/dL Normal 12.0-15.0 [facility] Comment on above: Performed By: #### L 503.6005, L501.2450, L100.0100, L500.4050 ####[facility] [address] [place], [address] IG% 0.200 Normal 0.0-0.9 [facility] Comment on above: Result Comment: IG% - Immature Granulocytes (promyelocytes, myelocytes and metamyelocytes) > 1% indicates that a LEFT SHIFT is Present. Performed By: #### L 503.6005, L501.2450, L100.0100, L500.4050 ####[facility] [address] [place], [address] Lymphocytes/100 WBC (Bld) 29.7 % Normal 19-41 [facility] Comment on above: Performed By: #### L 503.6005, L501.2450, L100.0100, L500.4050 ####[facility] [address] [place], [address] MCH (RBC) [Entitic mass] 30.7 pg Normal 27.0-32.0 [facility] Comment on above: Performed By: #### L 503.6005, L501.2450, L100.0100, L500.4050 ####[facility] [address] [place], [address] MCHC (RBC) [Mass/Vol] 32.9 g/dL Normal 32-36 [facility] Comment on above: Performed By: #### L 503.6005, L501.2450, L100.0100, L500.4050 ####[facility] [address] [place], [address] MCV (RBC) [Entitic vol] 93.2 fL Normal 81-99 [facility] Comment on above: Performed By: #### L 503.6005, L501.2450, L100.0100, L500.4050 ####[facility] [address] [place], [address] Monocytes/100 WBC (Bld) 8.0 % Normal 0-10 [facility] Comment on above: Performed By: #### L 503.6005, L501.2450, L100.0100, L500.4050 ####[facility] [address] [place], [address] Neutrophils/100 WBC (Bld) 59.2 % Normal 47-70 [facility] Comment on above: Performed By: #### L 503.6005, L501.2450, L100.0100, L500.4050 ####[facility] [address] [place], [address] Nucleated RBC (Bld) [#/Vol] 0 10*3/uL Normal 0-5 [facility] Comment on above: Performed By: #### L 503.6005, L501.2450, L100.0100, L500.4050 ####[facility] [address] [place], [address] Platelet mean volume (Bld) [Entitic vol] 9.3 fL Normal 6.2-12.0 [facility] Comment on above: Performed By: #### L 503.6005, L501.2450, L100.0100, L500.4050 ####[facility] [address] [place], [address] Platelets (Bld) [#/Vol] 390 10*3/uL Normal 150-450 [facility] Comment on above: Performed By: #### L 503.6005, L501.2450, L100.0100, L500.4050 ####[facility] [address] [place], [address] RBC (Bld) [#/Vol] 4.40 10*6/uL Normal 4.2-5.4 [facility] Comment on above: Performed By: #### L 503.6005, L501.2450, L100.0100, L500.4050 ####[facility] [address] [place], [address] RDW SD 42.2 fl Normal 35.1-43.9 [facility] Comment on above: Performed By: #### L 503.6005, L501.2450, L100.0100, L500.4050 ####[facility] [address] [place], [address] WBC (Bld) [#/Vol] 9.0 10*3/uL Normal 4.4-11.[address] [facility] Comment on above: Performed By: #### L 503.6005, L501.2450, L100.0100, L500.4050 ####[facility] [address] [place], [address] Carbon dioxide, total [Moles /volume] in Central venous bloodOrdered By: Yvon Becker on 02-21-2025 CO2 [Moles/Vol] 22.8 mmol/L 21.0-32.0 [facility] Chloride assayOrdered By: Yashira Becker on 02-21-2025 Chloride [Moles/Vol] 106 mmol/L 98-108 [facility] Comprehensive Metabolic Prof ilon 02-21-2025 Albumin [Mass/Vol] 4.0 g/dL Normal 3.5-5.[address] [facility] Comment on above: Performed By: #### L 503.6005, L501.2450, L100.0100, L500.4050 ####[facility] [address] [place], [address] Albumin/Globulin [Mass ratio] 1.4 {ratio} Normal 0.9-2.4 [facility] Comment on above: Performed By: #### L 503.6005, L501.2450, L100.0100, L500.4050 ####[facility] [address] [place], [address] ALK PHOS 66 U/L Normal 35-104 [facility] Comment on above: Result Comment: Hemo lysis Present, Results may be affected. Performed By: #### L 503.6005, L501.2450, L100.0100, L500.4050 ####[facility] [address] [place], [address] ALT [Catalytic activity/Vol] 16 U/L Normal <=34 [facility] Comment on above: Result Comment: Hemo lysis present, Results??could be affected. ?? Performed By: #### L 503.6005, L501.2450, L100.0100, L500.4050 ####[facility] [address] [place], [address] AST [Catalytic activity/Vol] 34 U/L High <=31 [facility] Comment on above: Result Comment: Hemo lysis present, Results??could be affected. ?? Performed By: #### L 503.6005, L501.2450, L100.0100, L500.4050 ####[facility] [address] [place], [address] Bilirubin [Mass/Vol] 0.20 mg/dL Normal 0.00-1.30 [facility] Comment on above: Performed By: #### L 503.6005, L501.2450, L100.0100, L500.4050 ####[facility] [address] [place], [address] BUN/CRE 15.4 RATIO Normal 10-20 [facility] Comment on above: Performed By: #### L 503.6005, L501.2450, L100.0100, L500.4050 ####[facility] [address] [place], [address] Calcium [Mass/Vol] 9.2 mg/dL Normal 7.6-11.[address] [facility] Comment on above: Performed By: #### L 503.6005, L501.2450, L100.0100, L500.4050 ####[facility] [address] [place], [address] Chloride [Moles/Vol] 106 mmol/L Normal 98-108 [facility] Comment on above: Performed By: #### L 503.6005, L501.2450, L100.0100, L500.4050 ####[facility] [address] [place], [address] CO2 [Moles/Vol] 22.8 mmol/L Normal 21.0-32.0 [facility] Comment on above: Performed By: #### L 503.6005, L501.2450, L100.0100, L500.4050 ####[facility] [address] [place], [address] Creatinine [Mass/Vol] 0.73 mg/dL Normal 0.70-1.20 [facility] Comment on above: Performed By: #### L 503.6005, L501.2450, L100.0100, L500.4050 ####[facility] [address] [place], [address] ECRCL 102.27 ml/min Normal 50-250 [facility] Comment on above: Performed By: #### L 503.6005, L501.2450, L100.0100, L500.4050 ####[facility] [address] [place], [address] GAP 11 Normal 5-15 [facility] Comment on above: Performed By: #### L 503.6005, L501.2450, L100.0100, L500.4050 ####[facility] [address] [place], [address] GFR/1.73 sq M.predicted among non-blacks MDRD (S/P/Bld) [Vol rate/Area] 108 mL/min/{1.73_m2} Normal >60 [facility] Comment on above: Result Comment: mL/m in/1.73m2 CKD-EPI Creatinine Equation (2020) Performed By: #### L 503.6005, L501.2450, L100.0100, L500.4050 ####[facility] [address] [place], [address] Globulin (S) [Mass/Vol] 2.9 g/dL Normal 2.2-4.2 [facility] Comment on above: Performed By: #### L 503.6005, L501.2450, L100.0100, L500.4050 ####[facility] [address] [place], [address] Glucose [Mass/Vol] 94 mg/dL Normal 70-[address] [facility] Comment on above: Performed By: #### L 503.6005, L501.2450, L100.0100, L500.4050 ####[facility] [address] [place], [address] Potassium [Moles/Vol] 5.0 mmol/L Normal 3.3-5.1 [facility] Comment on above: Result Comment: Hemo lysis present, Results??could be affected. ?? Performed By: #### L 503.6005, L501.2450, L100.0100, L500.4050 ####[facility] [address] [place], [address] Sodium [Moles/Vol] 140 mmol/L Normal 133-[address] [facility] Comment on above: Performed By: #### L 503.6005, L501.2450, L100.0100, L500.4050 ####[facility] [address] [place], [address] T PROT 6.9 g/dL Normal 5.9-8.4 [facility] Comment on above: Performed By: #### L 503.6005, L501.2450, L100.0100, L500.4050 ####[facility] [address] [place], [address] Urea nitrogen [Mass/Vol] 11 mg/dL Normal 4-19 [facility] Comment on above: Performed By: #### L 503.6005, L501.2450, L100.0100, L500.4050 ####[facility] [address] [place], [address] Emergency Department Summary on 02-21-2025 Emergency Department Summary [facility] Medical Records Department [address] [place] [address] Emergency Department Summary 02/21/25 MR#: [id number] Acct: [id number] Name: DANE OLIVERA Rep #: [id number] : 1985 39 From: Yvon Becker DO PCP: Hui Valdes OPENER TENDER-C Status:REG ER Location: ED HPI History of [...] on the chart. Reviewed. Physical exam: Gen: A O x3, NAD Head: Normocephalic, atraumatic Eyes: No [...] intact Psych: Cooperative, appropriate mood and affect PFSH PFSH Medical History Wears glasses Wears dentures Depression [...] 25 mg PO QDAY HEART RATE 02/02/25 02/20/25 History tablet,extended release 24 hr solifenacin 10 mg tablet 5 mg PO QDAY OAB 02/02/25 02/20/25 History venlafaxine 75 mg capsule,extended 75 mg PO QAM 02/02/25 Unknown Hi story release 24 hr acetaminophen 500 mg capsule 1,000 mg PO Q6H PRN pain 02/21/25 02/21/25 History sumatriptan succinate 100 mg tablet 100 mg PO Q2H PRN migraine 06/09 Unknown History Allergy/AdvReac Type Severity Reaction Status [...] pain. History was taken by patient as well as medical record. See HPI. Patient is status post open ventral hernia repair with mesh on 02/14/2025 with general surgery. Differential diagnosis includes but is not limited to postoperative pain, UTI, cholecystitis, biliary colic, pancreatitis, abscess. NS bolus, morphine, Zofran ordered for symptoms. CBC without leukocytosis or anemia. CMP unremarkable without significant electrolyte abnormality or BERNA. Patient's AST is mildly elevated at 34 but ALT, alkaline phosphatase, and bilirubin unremarkable. Lipas (more content not included)... Normal [facility] Eosinophil percentageOrdered By: Yvon Becker on 02-21-2025 Eosinophils/100 WBC (Bld) 2.0 % 0-5 [facility] Erythrocyte distribution wid th ratioOrdered By: Yvonbethel Becker on 02-21-2025 Erythrocyte distribution width (RBC) [Ratio] 12.2 % 11.6-14.6 [facility] Erythrocyte distribution wid th standard deviationOrdered By: [facility] Hospitalallison Vizcarra on 02-21-2025 Erythrocyte distribution width (RBC) [Ratio] 42.2 fl 35.1-43.9 [facility] Glomerular filtration rate ( GFR) estimation/1.73 sq m using serum, plasma, or whole bOrdered By: Yvonbethel Becker on 02-21-2025 GFR/1.73 sq M.predicted among non-blacks MDRD (S/P/Bld) [Vol rate/Area] 108 mL/min/{1.73_m2} >60 [facility] Comment on above: mL/min/1.73m2 CKD-EP I Creatinine Equation (2020) Hematocrit Auto (Bld) [Volum e fraction]Ordered By: Yvon Becker on 02-21-2025 Hematocrit (Bld) [Volume fraction] 41.0 % 37-47 [facility] Hemoglobin measurementOrdere d By: Yvon Becker on 02-21-2025 Hemoglobin (Bld) [Mass/Vol] 13.5 g/dL 12.0-15.0 [facility] Immature granulocytes/100 WB C Auto (Bld)Ordered By: Yvon Becker on 02-21-2025 Immature granulocytes/100 WBC (Bld) 0.200 % 0.0-0.9 [facility] Comment on above: IG% - Immature Granu locytes (promyelocytes, myelocytes and metamyelocytes) > 1% indicates that a LEFT SHIFT is Present. Ketones Test strip Ql (U)Ord ered By: Yvon Becker on 02-21-2025 Ketones Ql (U) Negative Negative [facility] Laboratory - Chemistry and C hemistry - challengeOrdered By: Yvon Becker on 02-21-2025 AST [Catalytic activity/Vol] 34 U/L High <32 [facility] [facility] Comment on above: Hemolysis present, R esults could be affected. Lactic Acidon 02-21-2025 Lactate [Moles/Vol] 1.8 mmol/L Normal 0.0-2.0 [facility] Comment on above: Order Comment: Y Performed By: #### L 503.6005, L501.2450, L100.0100, L500.4050 ####[facility] [address] [place], [place], [id number] Lactic acid measurementOrder ed By: Yvon Becker on 02-21-2025 Lactate [Moles/Vol] 1.8 mmol/L 0.0-2.0 [facility] Lipaseon 02-21-2025 Lipase [Catalytic activity/Vol] 46 U/L Normal 13-75 [facility] Comment on above: Result Comment: Jaz nance note: LIPASE revised reference range effective 22. New Lipase methodology. Expected to produce lower values than the previous assay method. NEW Reference Range: 13 - 75 U/L Performed By: #### L 503.6005, L501.2450, L100.0100, L500.4050 ####[facility] [address] [place], [place], [id number] Lipase measurementOrdered By : Yvon Becker on 02-21-2025 Lipase [Catalytic activity/Vol] 46 U/L 13-75 [facility] Comment on above: Please note:LIPASE r evised reference range effective 22. New Lipase methodology. Expected to produce lower values than the previous assay method. NEW Reference Range: 13 - 75 U/L MCV (mean corpuscular volume ) determinationOrdered By: Yvon Becker on 02-21-2025 MCV (RBC) [Entitic vol] 93.2 fL 81-99 [facility] Mean corpuscular hemoglobin (MCH) determinationOrdered By: Yvon Becker on 02-21-2025 MCH (RBC) [Entitic mass] 30.7 pg 27.0-32.0 [facility] Mean corpuscular hemoglobin concentration (MCHC) determinationOrdered By: Yvon Becker on 02-21-2025 MCHC (RBC) [Mass/Vol] 32.9 g/dL 32-36 [facility] Mean platelet volume determi nationOrdered By: Yvon Becker on 02-21-2025 Platelet mean volume (Bld) [Entitic vol] 9.3 fL 6.2-12.0 [facility] Microscopic analysis of urin e for red blood cells (RBC)Ordered By: Yvon Becker on 02-21-2025 Microscopic analysis of urine for red blood cells (RBC) 0-5 SEEN /hpf 0-5 [facility] Monocyte percentageOrdered B y: Yvon Becker on 02-21-2025 Monocytes/100 WBC (Bld) 8.0 % 0-10 [facility] Mucus LM Ql (Urine sed)Order ed By: Yvon Becker on 02-21-2025 Mucus Ql (Urine sed) 0 SEEN /hpf [facility] Neutrophil percentageOrdered By: Yvon Becker on 02-21-2025 Neutrophils/100 WBC (Bld) 59.2 % 47-70 [facility] Nitrite Test strip Ql (U)Ord ered By: Yvon Becker on 02-21-2025 Nitrite Ql (U) Negative Negative [facility] Nucleated red blood cell per centageOrdered By: Yvon Becker on 02-21-2025 Nucleated RBC/100 WBC (Bld) [Ratio] 0 % 0-5 [facility] Platelet countOrdered By: Yashira Becker on 02-21-2025 Platelets (Bld) [#/Vol] 390 10*3/uL 150-450 [facility] Potassium measurement (mass/ volume)Ordered By: Yvon Becker on 02-21-2025 Potassium (Unsp spec) [Mass/Vol] 5.0 mmol/L 3.3-5.1 [facility] Comment on above: Hemolysis present, R esults could be affected. Protein Test strip Ql (U)Ord ered By: Yvon Becker on 02-21-2025 Protein Ql (U) Negative Negative [facility] RBC Auto (Bld) [#/Vol]Ordere d By: Yvon Becker on 02-21-2025 RBC (Bld) [#/Vol] 4.40 10*6/uL 4.2-5.4 [facility] Serum creatinine measurement (mass/volume)Ordered By: Yvon Becker on 02-21-2025 Creatinine [Mass/Vol] 0.73 mg/dL 0.70-1.20 [facility] Serum globulin measurementOr dered By: Yvon Becker on 02-21-2025 Globulin (S) [Mass/Vol] 2.9 g/dL 2.2-4.2 [facility] Serum glucose measurement (m ass/volume)Ordered By: Yvon Becker on 02-21-2025 Glucose [Mass/Vol] 94 mg/dL 70-[address] [facility] Serum or plasma alanine daugherty otransferase (ALT) measurementOrdered By: Yvon Becker on 02-21-2025 ALT [Catalytic activity/Vol] 16 U/L <35 [facility] Comment on above: Hemolysis present, R esults could be affected. Serum or plasma albumin hong urement (mass/volume)Ordered By: Yvon Vizcarra on 02-21-2025 Albumin [Mass/Vol] 4.0 g/dL 3.5-5.[address] [facility] Serum or plasma albumin/glob ulin mass ratioOrdered By: Yvon Becker on 02-21-2025 Albumin/Globulin [Mass ratio] 1.4 {ratio} 0.9-2.4 [facility] Serum or plasma alkaline katherine sphatase measurementOrdered By: Yvon Becker on 02-21-2025 ALP [Catalytic activity/Vol] 66 U/L 35-104 [facility] Comment on above: Hemolysis Present, R esults may be affected. Serum or plasma calcium hong urement (mass/volume)Ordered By: Yvon Vizcarra on 02-21-2025 Calcium [Mass/Vol] 9.2 mg/dL 7.6-11.[address] [facility] Serum or plasma urea nitroge n measurement (mass/volume)Ordered By: Yvon Becker on 02-21-2025 Urea nitrogen [Mass/Vol] 11 mg/dL 4-19 [facility] Sodium levelOrdered By: Jone Becker on 02-21-2025 Sodium [Moles/Vol] 140 mmol/L 133-[address] [facility] Squamous epithelial cells de tection in urine sediment by light microscopyOrdered By: Yvon Becker on 02-21-2025 Epithelial cells.squamous LM Ql (Urine sed) 0-5 SEEN /hpf 5-10 [facility] Total proteinOrdered By: Claude Becker on 02-21-2025 Protein [Mass/Vol] 6.9 g/dL 5.9-8.[address] [facility] Urinalysis, Completeon 02-21 EPI,SQUAMOUS 0-5 SEEN Normal 5-10 [facility] Comment on above: Order Comment: CLEAN CATCH Performed By: #### L 400.0001 #### [facility] Laboratory [facility] [place], [address] RBC 0-5 SEEN Normal 0-5 [facility] Comment on above: Order Comment: CLEAN CATCH Performed By: #### L 400.0001 #### [facility] [address] [place], [place], [id number] WBC 0-5 SEEN Normal 0-5 [facility] Comment on above: Order Comment: CLEAN CATCH Performed By: #### L 400.0001 #### [facility] [address] [place], [address] BACTERIA 0 SEEN Normal None Seen [facility] Comment on above: Order Comment: CLEAN CATCH Performed By: #### L 400.0001 #### [facility] [address] [place], [place], [id number] Mucus Ql (Urine sed) 0 SEEN Normal [facility] Comment on above: Order Comment: CLEAN CATCH Performed By: #### L 400.0001 #### [facility] [address] [place], [place], [id number] Urine clarityOrdered By: Claude Becker on 02-21-2025 Clarity (U) Clear Clear [facility] Urine color determinationOrd ered By: Yvon Becker on 02-21-2025 Color (U) Straw Yellow [facility] Urine glucose detectionOrder ed By: Yvon Becker on 02-21-2025 Glucose Ql (U) Normal mg/dl Normal [facility] Urine leukocyte esterase det ection by dipstickOrdered By: Yvon Becker on 02-21-2025 Leukocyte esterase Test strip Ql (U) Negative Negative [facility] Urine pHOrdered By: Yvon Arita on 02-21-2025 pH (U) 7.0 [pH] 5.0 - 8.0 [facility] Urine sediment bacteria coun t by microscopy (number/high power field)Ordered By: Yvon Becker on 02-21-2025 Bacteria LM.HPF (Urine sed) [#/Area] 0 /[HPF] None Seen [facility] Urine specific gravity measu rementOrdered By: Yvon Becker on 02-21-2025 Specific gravity (U) [Rel density] 1.010 1.002-1.030 [facility] Urine urobilinogen measureme ntOrdered By: Yvon Becker on 02-21-2025 Urobilinogen Ql (U) Normal mg/dl Normal [facility] White blood cell (WBC) count Ordered By: Yvon Becker on 02-21-2025 WBC (Bld) [#/Vol] 9.0 10*3/uL 4.4-11.[address] [facility] White blood cell countOrdere d By: Yvon Becker on 02-21-2025 White blood cell count 0-5 SEEN /hpf 0-5 [facility] Discharge Instructionon Discharge Instruction [facility] Medical Records Department [address] [place] [address] Instructions for Home/Discharge Instructions 02/14/25 1536 MR#: [id number] Acct: [id number] Name: DANE OLIVERA Rep #: [id number] : 1985 39 From: Desean Rodriguez MD PCP: OLY GomezC Status:REG [facility] Discharge Instructions Diet Discharge Diet: Light diet [...] Provider: Hui Valdes NP Instructions Print Language: Israeli Discharge Orders/Prescriptions Prescriptions: New oxycodone-acetaminophen [Percocet] 5-325 [...] Referrals / Follow Up: Hui Valdes NP, OPENER TENDER-C [Primary Care Provider] - Disposition Disposition (needs filled in before D/C Order can be placed): Home, Self Care 02/14/25 1546 Desean Rodriguez MD CC: KOSTA Ortizlogyashira Signed [facility] MR/POSTOP.[facility] 02-14-2025 MR/POSTOP.[facility] Medical Records Department [address] [place] [address] Anesthesia Postop Eval I 02/14/25 1554 MR#: [id number] Acct: [id number] Name: DANE OLIVERA Rep #: [id number] : 1985 39 From: Royce Gomez CRNA PCP: KOSTA Gomez Status:REG SDC Y Race: C Location: [place] [address] Anesthesia: Postop Eval I Current Vital Signs [...] document: Postop Eval 1 completed: Yes 02/14/25 9553 Date Royce Giles 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 OPERATOR Cosigner Signature: Date CC: Signed Normal [facility] MR/[id number] 02-14-2025 MR/POSTOPAN2 [facility] Medical Records Department [address] [address] Anesthesia Postop Eval II 02/14/25 163 MR#: [id number] Acct: [id number] Name: DANE OLIVERA Rep #: [id number] : 1985 39 From: Guille Shin MD PCP: KOSTA Gomez Status:REG [facility] Y Race: C Location: [address] Anesthesia Postop Eval I Sum Postop Eval Completion status Anesthesia document: Postop Eval 1 completed: Yes Anesthesia Postop Eval I Summary Anesthesia Postop Eval I Summary: Anesthesia Postop Eval I: Assessment Summary Airway patent Yes 02/14/25 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 Spontaneous unlabored Yes 02/14/25 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 Anesthesia Complication Comment: Post-operative progress note Anesthesia: Postop Eval II Evaluation Mental status: Awake Pain Level: 0 nausea: No Vomiting: No Complications Anesthesia Complication: No 02/14/251636 Date Guille Shin MD Cosigner Signature: Date CC: Signed Normal [facility] Operative Reporton 5 Operative Report [facility] Medical Records Department [address] [place] [address] Operative Report 02/14/25 1546 MR#: [id number] Acct: [id number] Name: DANE OLIVERA Rep #: [id number] : 1985 39 From: Desean Rodriguez MD PCP: KOSTA Gomez Status:[facility] Location: [place] [address] Problems Associated Problem List Diagnoses (1) Ventral hernia: Procedures Digestive 40xxx-49xxx: 38559 RPR AA HRN 3-10 NCR/STRN Operative Report (Standard) Operative Information Date of Procedure: 02/14/25 Pre-Operative Diagnosis: Ventral hernia -chronically incarcerated Post-Operative Diagnosis: Same Surgery/Procedure Performed: Open ventral hernia repair with mesh alternative financing specialist: Yes Store Gift Wrap Associate: Kristine Larose Tasks completed by special event assistant: Closing and Retracting Additional wet process assistant head miller?: No Type of Anesthesia: General and Local [...] prophylaxis not ordered: Treatment Not Indicated 02/14/25 8783 Cosigner Signature (if applicable): CC: KOSTA Ames Podlogar; Dr. Desean Rodriguez MD Signed Normal [facility] ,Urineon 02-14-2025 Beta HCG ( test) Ql (U) Negative Normal [facility] Comment on above: Result Comment: Very dilute urine specimens, as indicated by a low specific gravity, may not contain corporate sales representative levels of hCG. If is still suspected, a first morning urine specimen should be collected 48 hours later and tested. Performed By: #### L 400.7600 ####[facility] [address] [place], [address] Surgery Specimen Level IIon 02-14-2025 Surgery Specimen Level II Patient Age/Sex Location Account Attending Physician DENDANE N 39/F [facility] [id number] Dr. Desean Rodriguez MD Specimen: [id number] Received: 02/15/25 Status: OLINDA Dorado Num: [id number] Spec Type: Hernia Subm Dr: Dr. Desean Rodriguez MD HEADER OPERATION: Henria, ventral repair with mesh PRE-OP DIAGNOSIS: Ventral [...] vasculature. No nodules or necrosis is identified. Care Team Assistant sections:A1. Semisaccular portion with fibrous areasA2. Larger finely lobulated fragment [facility] 02-15-2025 CPT:25743 Patient Age/Sex Location Account Attending Physician DANE OLIVERA 39/F [facility] [id number] Dr. Desean Rodriguez MD Signed (signature on file) Dr. Joanna Ram MD 02/17/25 1314 Normal [facility] Comment on above: Performed By: #### P SUII #### [facility] Laboratory [facility] [address] [place], [place], [address] Urine testOrdered By: Paul Cox on 02-14-2025 HCG ( test) Ql (U) Negative [facility] Comment on above: Very dilute urine sp ecimens, as indicated by a low specificgravity, may not contain corporate sales representative levels of hCG. If is still suspected, a first morning urinespecimen should be collected 48 hours later and tested. Surgery Visit Reporton 02-02 Surgery Visit Report [facility] [address] [place] [address] OFFICE VISIT Date of Service: 02/02/25 MR#: [id number] Acct: [id number] Name: DANE OLIVERA Rep #: [id number] : 1985 Provider: Dr. Desean ritter MD Age/Sex: 39/F Location: [facility] Status: Signed Intake Vital Signs 01/15/25 17:48 [...] Const General: cooperative, healthy appearing and comfortable [facility] Head: normal to inspection, normocephalic and [...] completely reducibl (more content not included)... Normal [facility] Abdomen/Pelvis W IV Cont ONL Yon 01-15-2025 Abdomen/Pelvis W IV Cont ONLY [facility] Imaging Services [address] [place] [address] Abdomen/Pelvis W IV Cont ONLY MR#: [id number] Acct: [id number] Name: DANE OLIVERA Rep #: [id number] : 1985 F 39 From: Seng zaman MD PCP: Hui Valdes OPENER TENDER-C Status: REG ER Study: Abdomen/Pelvis W IV Cont ONLY Date of Exam: Exam# [id number] Ordering Dr: Cierra Dinero PROCEDURE: ABDOMEN/PELVIS W [...] hernia with rectus sheath diastasis. [facility] CC: KOSTA Ames Podlogar; YVAN [place] Cost Control Analyst: Signed Normal [facility] Absolute lymphocyte countOrd ered By: Cierra Dinero on 01-15-2025 Lymphocytes Auto (Unsp spec) [#/Vol] 3.13 10*3/uL 0.83-4.51 [facility] Absolute neutrophil countOrd ered By: Cierra Dinero on 01-15-2025 Neutrophils (Bld) [#/Vol] 5.2 10*3/uL 2.0-7.7 [facility] Anion gap in Serum or Plasma Ordered By: Cierra Dinero on 01-15-2025 Anion gap [Moles/Vol] 12 mmol/L 5- [facility] Automated lymphocyte count a s percentage of total leukocytesOrdered By: Cierra Dinero on 01-15-2025 Lymphocytes/100 WBC Auto (Unsp spec) 33.2 % [facility] BUN/creatinine ratioOrdered By: Cierra Dinero on 01-15-2025 Urea nitrogen/Creatinine [Mass ratio] 14.5 mg/mg - [facility] Basic Metabolic Profile (BMP )on 01-15-2025 BUN/CRE 14.5 RATIO Normal 07-04 [facility] Comment on above: Performed By: #### L 500.2500, L100.0100 ####[facility] [address] [place], [address] Calcium [Mass/Vol] 9.2 mg/dL Normal 7.6-11.[address] [facility] Comment on above: Performed By: #### L 500.2500, L100.0100 ####[facility] [address] [place], [address] Chloride [Moles/Vol] 104 mmol/L Normal 98-108 [facility] Comment on above: Performed By: #### L 500.2500, L100.0100 ####[facility] [address] [place], [address] CO2 [Moles/Vol] 22.8 mmol/L Normal 21.0-32.0 [facility] Comment on above: Performed By: #### L 500.2500, L100.0100 ####[facility] [address] [place], [address] Creatinine [Mass/Vol] 0.76 mg/dL Normal 0.70-1.20 [facility] Comment on above: Performed By: #### L 500.2500, L100.0100 ####[facility] [address] [place], [address] ECRCL 99.31 ml/min Normal 50-250 [facility] Comment on above: Performed By: #### L 500.2500, L100.0100 ####[facility] [address] [place], [address] GAP 12 Normal 5-15 [facility] Comment on above: Performed By: #### L 500.2500, L100.0100 ####[facility] [address] [place], [address] GFR/1.73 sq M.predicted among non-blacks MDRD (S/P/Bld) [Vol rate/Area] 103 mL/min/{1.73_m2} Normal >60 [facility] Comment on above: Result Comment: mL/m in/1.73m2 CKD-EPI Creatinine Equation (2020) Performed By: #### L 500.2500, L100.0100 ####[facility] [address] [place], [address] Glucose [Mass/Vol] 94 mg/dL Normal 70-[address] [facility] Comment on above: Performed By: #### L 500.2500, L100.0100 ####[facility] [address] [place], [address] Potassium [Moles/Vol] 4.2 mmol/L Normal 3.3-5.1 [facility] Comment on above: Performed By: #### L 500.2500, L100.0100 ####[facility] [address] [place], [address] Sodium [Moles/Vol] 139 mmol/L Normal 133-[address] [facility] Comment on above: Performed By: #### L 500.2500, L100.0100 ####[facility] [address] [place], [address] Urea nitrogen [Mass/Vol] 11 mg/dL Normal 4-19 [facility] Comment on above: Performed By: #### L 500.2500, L100.0100 ####[facility] [address] [place], [address] Basophil percentageOrdered B y: Cierra Dinero on 01-15-2025 Basophils/100 WBC (Bld) 1.1 % High 0-1 [facility] CBC W/Diff, Automatedon Absolute Lymph 3.13 X10 3/uL Normal 0.83-4.51 [facility] Comment on above: Performed By: #### L 500.2500, L100.0100 ####[facility] [address] [place], [address] Absolute Neut 5.2 X10 3/uL Normal 2.0-7.7 [facility] Comment on above: Performed By: #### L 500.2500, L100.0100 ####[facility] [address] [place], [address] Basophils/100 WBC (Bld) 1.1 % High 0-1 [facility] Comment on above: Performed By: #### L 500.2500, L100.0100 ####[facility] [address] [place], [address] Eosinophils/100 WBC (Bld) 2.0 % Normal 0-5 [facility] Comment on above: Performed By: #### L 500.2500, L100.0100 ####[facility] [address] [place], [address] Erythrocyte distribution width (RBC) [Ratio] 12.1 % Normal 11.6-14.6 [facility] Comment on above: Performed By: #### L 500.2500, L100.0100 ####[facility] [address] [place], [address] Hematocrit (Bld) [Volume fraction] 40.0 % Normal 37-47 [facility] Comment on above: Performed By: #### L 500.2500, L100.0100 ####[facility] [address] [place], [address] Hemoglobin (Bld) [Mass/Vol] 13.8 g/dL Normal 12.0-15.0 [facility] Comment on above: Performed By: #### L 500.2500, L100.0100 ####[facility] [address] [place], [address] IG% 0.200 Normal 0.0-0.9 [facility] Comment on above: Result Comment: IG% - Immature Granulocytes (promyelocytes, myelocytes and metamyelocytes) > 1% indicates that a LEFT SHIFT is Present. Performed By: #### L 500.2500, L100.0100 ####[facility] [address] [place], [address] Lymphocytes/100 WBC (Bld) 33.2 % Normal 19-41 [facility] Comment on above: Performed By: #### L 500.2500, L100.0100 ####[facility] [address] [place], [address] MCH (RBC) [Entitic mass] 31.4 pg Normal 27.0-32.0 [facility] Comment on above: Performed By: #### L 500.2500, L100.0100 ####[facility] [address] [place], [address] MCHC (RBC) [Mass/Vol] 34.5 g/dL Normal 32-36 [facility] Comment on above: Performed By: #### L 500.2500, L100.0100 ####[facility] [address] [place], [address] MCV (RBC) [Entitic vol] 91.1 fL Normal 81-99 [facility] Comment on above: Performed By: #### L 500.2500, L100.0100 ####[facility] [address] [place], [address] Monocytes/100 WBC (Bld) 8.8 % Normal 0-10 [facility] Comment on above: Performed By: #### L 500.2500, L100.0100 ####[facility] [address] [place], [address] Neutrophils/100 WBC (Bld) 54.7 % Normal 47-70 [facility] Comment on above: Performed By: #### L 500.2500, L100.0100 ####[facility] [address] [place], [address] Nucleated RBC (Bld) [#/Vol] 0 10*3/uL Normal 0-5 [facility] Comment on above: Performed By: #### L 500.2500, L100.0100 ####[facility] [address] [place], [address] Platelet mean volume (Bld) [Entitic vol] 8.9 fL Normal 6.2-12.0 [facility] Comment on above: Performed By: #### L 500.2500, L100.0100 ####[facility] [address] [place], [address] Platelets (Bld) [#/Vol] 365 10*3/uL Normal 150-450 [facility] Comment on above: Performed By: #### L 500.2500, L100.0100 ####[facility] [address] [place], [address] RBC (Bld) [#/Vol] 4.39 10*6/uL Normal 4.2-5.4 [facility] Comment on above: Performed By: #### L 500.2500, L100.0100 ####[facility] [address] [place], [address] RDW SD 40.7 fl Normal 35.1-43.9 [facility] Comment on above: Performed By: #### L 500.2500, L100.0100 ####[facility] [address] [place], [address] WBC (Bld) [#/Vol] 9.4 10*3/uL Normal 4.4-11.[address] [facility] Comment on above: Performed By: #### L 500.2500, L100.0100 ####[facility] [address] [place], [address] Carbon dioxide, total [Moles /volume] in Central venous bloodOrdered By: Cierra Dinero on 01-15-2025 CO2 [Moles/Vol] 22.8 mmol/L 21.0-32.0 [facility] Chloride assayOrdered By: Mona Dinero on 01-15-2025 Chloride [Moles/Vol] 104 mmol/L 98-108 [facility] Emergency Department Summary on 01-15-2025 Emergency Department Summary [facility] Medical Records Department [address] [place] [address] Emergency Department Summary 01/15/25 MR#: [id number] Acct: [id number] Name: DANE OLIVERA Rep #: [id number] : 1985 39 From: Cierra SANTORO PCP: KOSTA Gomez Status:REG ER Location: ED HPI History of [...] denies fevers, chills, vomiting, and urinary symptoms. [facility] Medical History Tachycardia IUD (intrauterine device) in [...] discharged home (more content not included)... Normal [facility] Eosinophil percentageOrdered By: Cierra Dinero on 01-15-2025 Eosinophils/100 WBC (Bld) 2.0 % 0-5 [facility] Erythrocyte distribution wid th ratioOrdered By: Cierra Dinero on 01-15-2025 Erythrocyte distribution width (RBC) [Ratio] 12.1 % 11.6-14.6 [facility] Erythrocyte distribution wid th standard deviationOrdered By: Cierraaustyn Dinero on 01-15-2025 Erythrocyte distribution width (RBC) [Ratio] 40.7 fl 35.1-43.9 [facility] Glomerular filtration rate ( GFR) estimation/1.73 sq m using serum, plasma, or whole bOrdered By: Cierra Dinero on 01-15-2025 GFR/1.73 sq M.predicted among non-blacks MDRD (S/P/Bld) [Vol rate/Area] 103 mL/min/{1.73_m2} >60 [facility] Comment on above: mL/min/1.73m2 CKD-EP I Creatinine Equation (2020) Hematocrit Auto (Bld) [Volum e fraction]Ordered By: Cierra Dinero on 01-15-2025 Hematocrit (Bld) [Volume fraction] 40.0 % 37-47 [facility] Hemoglobin measurementOrdere d By: Cierraaustyn Dinero on 01-15-2025 Hemoglobin (Bld) [Mass/Vol] 13.8 g/dL 12.0-15.0 [facility] Immature granulocytes/100 WB C Auto (Bld)Ordered By: Cierra Dinero on 01-15-2025 Immature granulocytes/100 WBC (Bld) 0.200 % 0.0-0.9 [facility] Comment on above: IG% - Immature Granu locytes (promyelocytes, myelocytes and metamyelocytes) > 1% indicates that a LEFT SHIFT is Present. MCV (mean corpuscular volume ) determinationOrdered By: Cierraaustyn Dinero on 01-15-2025 MCV (RBC) [Entitic vol] 91.1 fL 81-99 [facility] Mean corpuscular hemoglobin (MCH) determinationOrdered By: Cierraaustyn Dinero on 01-15-2025 MCH (RBC) [Entitic mass] 31.4 pg 27.0-32.0 [facility] Mean corpuscular hemoglobin concentration (MCHC) determinationOrdered By: Cierraaustyn Dinero 01-15-2025 MCHC (RBC) [Mass/Vol] 34.5 g/dL 32-36 [facility] Mean platelet volume determi nationOrdered By: Cierra Dinero on 01-15-2025 Platelet mean volume (Bld) [Entitic vol] 8.9 fL 6.2-12.0 [facility] Monocyte percentageOrdered B y: Cierra Dinero on 01-15-2025 Monocytes/100 WBC (Bld) 8.8 % 0-10 [facility] Neutrophil percentageOrdered By: Cierra Dinero on 01-15-2025 Neutrophils/100 WBC (Bld) 54.7 % 47-70 [facility] Nucleated red blood cell per centageOrdered By: Cierra Dinero on 01-15-2025 Nucleated RBC/100 WBC (Bld) [Ratio] 0 % 0-5 [facility] Platelet countOrdered By: Mona Dinero on 01-15-2025 Platelets (Bld) [#/Vol] 365 10*3/uL 150-450 [facility] Potassium measurement (mass/ volume)Ordered By: Cierra Dinero on 01-15-2025 Potassium (Unsp spec) [Mass/Vol] 4.2 mmol/L 3.3-5.1 [facility] RBC Auto (Bld) [#/Vol]Ordere d By: Cierra Dinero on 01-15-2025 RBC (Bld) [#/Vol] 4.39 10*6/uL 4.2-5.4 [facility] Serum creatinine measurement (mass/volume)Ordered By: Cierra Dinero on 01-15-2025 Creatinine [Mass/Vol] 0.76 mg/dL 0.70-1.20 [facility] Serum glucose measurement (m ass/volume)Ordered By: Cierra Dinero on 01-15-2025 Glucose [Mass/Vol] 94 mg/dL 70-[address] [facility] Serum or plasma calcium hong urement (mass/volume)Ordered By: Cierra Dinero on 01-15-2025 Calcium [Mass/Vol] 9.2 mg/dL 7.6-11.[address] [facility] Serum or plasma urea nitroge n measurement (mass/volume)Ordered By: Cierra Dinero on 01-15-2025 Urea nitrogen [Mass/Vol] 11 mg/dL 4-19 [facility] Sodium levelOrdered By: Regino Dinero on 01-15-2025 Sodium [Moles/Vol] 139 mmol/L 133-[address] [facility] White blood cell (WBC) count Ordered By: Cierra Dinero on 01-15-2025 WBC (Bld) [#/Vol] 9.4 10*3/uL 4.4-11.[address] [facility] CNOVon 12-31-2024 CNOV Office Visit (CELINEWS ) -- DANE OLIVERA ([id number]) 1985 F Date Time Provider Department 12/31/24 1:00 PM HUI VALDES During your visit today, we recorded the following information about you: Pulse Respiration Blood pressure Weight 100/minute 16/minute 122/78 74.4 kg Hui Valdes APRN.CELL EFFICIENCY SUPERVISOR 12/31/2024 1:48 PM Signed 12/29/2024 Patient presents [...] in partial remission, most recent episode mixed ([facility]) 10/04/2019 Depression, major, recurrent, moderate ([facility]) 07/07/2018 Diet controlled gestational diabetes mellitus (GDM) in second trimester ([facility]) 07/05/2022 Drug use disorder remission since 06/2019; methamphetamines, marijuana Gastritis due to Helicobacter species 11/26/2021 Genital warts 1--09 Never seen again GERD without esophagitis 02/08/2022 Grand multiparity 09/11/2022 - history 4 prior SVDs, this will be delivery #5 - admission CBC 11.9 Group B Streptococcus carrier, antepartum ([facility]) 07/26/2021 Sensitive to Vanc Hemorrhoids Herpes simplex [...] tract infection in , antepartum, second trimester ([facility]) 03/28/2022 Urogenital trichomoniasis 2017 Not totally sure [...] - 34 (more content not included)... Normal [facility] Arjun 12-28-2024 CNPN Telephone (OBGYWM) -- DANE OLIVERA ([id number]) 1985 F Date Time Provider Department 12/28/24 TEMITOPE BEAR During your visit today, we recorded the following information about you: Frances Parnell RN 12/28/2024 4:43 PM Signed Received the following message from [facility]: Patient is requesting to have their IUD removed. Please put in a order for this so that it can be scheduled. Order pending. Please file and then route to scheduling. Thank you. HARRIET Moore Jessica, APRN.CN 12/28/2024 4:59 PM Signed Order signed. GARIMA Franklin Trisha, RN 12/29/2024 8:07 AM Signed Please contact patient to schedule IUD removal. Young Montelogno RN Allergies As of Date: 12/28/2024 Noted Allergy Reaction AMOXICILLIN 07/07/2018 16 - Unknown Comments: WAS TOLD BY MOM Date Reviewed: 10/18/2024 Reviewed by: Ernesto Suarez MA - Fully Assessed Reason for Visit: Orders [681] Primary Visit Diagnosis:Encounter for IUD removal [Z30.432] Order(s):REMOVE INTRAUTERINE DEVICE [9509956] Order #: [id number] Prescriptions as of 12/29/2024 - venlafaxine ER [...] in place [Z97.5] 10/18/2024 Encounter Status:Closed by YOUNG MONTELONGO on 12/29/24 Normal [facility] BACTERIAL VAGINOSIS NAATon 0 2- Lactobacillus crispatus+gasseri+tanner senii + Gardnerella vaginalis + Atopobium vaginae rRNA CASSIDY+probe Ql (Vag fld) Not detected Normal Not detected [facility] Comment on above: Order Comment: Speci men Type: SWABOrdering Facility: [facility] Address: [address] [place] [address] Performed By: #### C VTV, BVAMP ####[facility] LABCLIA [id number] [place] [address] [place] C. trachomatis+N. gonorrhoea e DNA CASSIDY+probe Ql (Unsp spec)on 10-18-2024 C. trachomatis rRNA CASSIDY+probe Ql (Unsp spec) Not detected Normal Not detected [facility] Comment on above: Order Comment: Speci men Type: SWABOrdering Facility: [facility] Address: [address] [place] [address] Performed By: #### 3 6902-5 ####[facility] LABCLIA [id number] [place] [address] [place] N. gonorrhoeae rRNA CASSIDY+probe Ql (Unsp spec) Not detected Normal Not detected [facility] Comment on above: Order Comment: Speci men Type: SWABOrdering Facility: [facility] Address: [address] [place] [address] Performed By: #### 3 6902-5 ####[facility] LABCLIA [id number] [place] [address] [place] ALEX/TRICHOMONAS NAATon 0 10-18-2024 C. glabrata RNA CASSIDY+probe Ql (Vag fld) Not detected Normal Not detected [facility] Comment on above: Order Comment: Speci men Type: SWABOrdering Facility: [facility] Address: [address] [place] [address] Performed By: #### C VTV, BVAMP ####[facility] LABCLIA [id number] [place] [address] [place] Alex sp DNA CASSIDY+probe Ql (Vag fld) Not detected Normal Not detected [facility] Comment on above: Order Comment: Speci men Type: SWABOrdering Facility: [facility] Address: [address] [place] [address] Result Comment: The Alex species group target includes C. albicans, C. tropicalis, C. parapsilosis, and C. dubliniensis. Performed By: #### C VTV, BVAMP ####[facility] LABCLIA [id number] [address] [place] T. vaginalis DNA CASSIDY+probe Ql (Unsp spec) Not detected Normal Not detected [facility] Comment on above: Order Comment: Speci men Type: SWABOrdering Facility: [facility] Address: [address] [place] [address] Performed By: #### C VTV, BVAMP ####[facility] LABCLIA [id number] [address] [place] CNOVon 10-18-2024 CNOV Office Visit (OBGYWM ) -- DANE OLIVERA ([id number]) 1985 F Date Time Provider Department 10/18/24 10:00 AM TEMITOPE BEAR OBGYWM During your visit today, we recorded the following information about you: Blood pressure Weight Height Last Period 126/74 75.8 kg 1.626 m 10/11/24 Temitope Bear APRN.CNM 10/18/2024 1:09 PM Signed Dane is a 39 year old who presents [...] L5 SAB0 IAB1 Ectopic0 Multiple0 Live Births5 Trekking Guide History LMP: 10/11/2024 (Approximate), IUD Age at Menarche: 9 Age at First : 21 Age at Menopause: Trekking Guide History Comments: Sexual Activity: Yes; Male Contraception: [...] SECTION HX EGD DIAGNOSTIC 01/17/2023 INDUCED BY [facility] 2008 FAMILY HISTORY Problem Relation Age of [...] discussed with the Patient or Patient's Authorized Care Team Assistant. As applicable, any other physician, advance practice provider, medical student, or other health professional student that will be observing or involved in the sensitive examination for educational or training purposes was discussed with the Patient or Authorized Care Team Assistant. The Patient or Authorized Care Team Assistant has agreed to proceed with the sensitive examination. (Sensitive examination includes inspection and/or palpation of the breasts, pelvis, prostate and anorectal regions). EXAM: BP 126/74 Ht 5' 4 (1.63m) Wt 167 lb (75.8kg) LMP 10/11/2024 BMI 28.65 kg/(m2). GENERAL: pleasant, fe (more content not included)... Normal [facility] HBV surface Ag Ser Qlon 02-0 HBV surface Ag Ql (S) Negative Normal Negative [facility] Comment on above: Order Comment: Speci men Type: BLOOD SPECIMENOrdering Facility: [facility] Address: [address] [place] [address] Performed By: #### 3 1201-7, 5195-3, 40236-1 ####[facility] LABCLIA [id number] [place] [address] [place] HCV Ab Ser Qlon 10-18-2024 HCV Ab Ql (S) Negative Normal Negative [facility] Comment on above: Order Comment: Speci men Type: BLOOD SPECIMENOrdering Facility: [facility] Address: [address] [place] [address] Result Comment: The result suggests no evidence of active infection with Hepatitis C virus. Should recent infection be suspected, repeat testing may be considered 4-6 weeks after this draw. Performed By: #### 1 6128-1 ####[facility] [id number] [place] [address] [place] HIGH RISK HUMAN PAPILLOMA DONATO (HPV), PCR FOR DETECTION AND GENOTYPINGon 10-18-2024 HPV 16 Ag Ql (Unsp spec) Not detected Normal Not detected [facility] Comment on above: Order Comment: Speci men Type: FLUID SPECIMENOrdering Facility: [facility] Address: [address] [place] [address] Performed By: #### H PVHRT ####[facility] [id number] [place] [address] [place] HPV 18 Ag Ql (Unsp spec) Not detected Normal Not detected [facility] Comment on above: Order Comment: Speci men Type: FLUID SPECIMENOrdering Facility: [facility] Address: [address] [place] [address] Performed By: #### H PVHRT ####[facility] [id number] [place] [address] [place] HPV 31+33+35+39+45+51+52+ 56+58+59+66+68 DNA CASSIDY+probe Ql (Cvx) Not detected Normal Not detected [facility] Comment on above: Order Comment: Speci men Type: FLUID SPECIMENOrdering Facility: [facility] Address: [address] [place] [address] Result Comment: High Risk HPV Other Type includes HPV types 31, 33, 35, 39, 45, 51, 52, 56, 58, 59, 66 and 68. Performed By: #### H PVHRT ####[facility] LABCLIA [id number] [place] [address] [place] HIV 1+2 Ab IA Qlon 5 HIV 1 and 2 Ab IA.rapid Nom (S/P/Bld) Normal [facility] Comment on above: Order Comment: Speci men Type: BLOOD SPECIMENOrdering Facility: [facility] Address: [address] [place] [address] Result Comment: Test not indicated. Performed By: #### 3 1201-7, 5195-3, 74099-9 ####[facility] LABIA [id number] [place] [address] [place] HIV 1+2 Ab+HIV1 p24 Ag IA Ql Non-Reactive Normal Nonreactive [facility] Comment on above: Order Comment: Speci men Type: BLOOD SPECIMENOrdering Facility: [facility] Address: [address] [place] [address] Performed By: #### 3 1201-7, 5195-3, 43433-7 ####[facility] LABIA [id number] [place] [address] [place] HIV immunoassay testing algorithm interpretation (S/P/Bld) [Interp] Normal [facility] Comment on above: Order Comment: Speci men Type: BLOOD SPECIMENOrdering Facility: [facility] Address: [address] [place] [address] Result Comment: No e vidence of HIV-1 or HIV-2 infection. Should recent infection be suspected, repeat testing may be considered 2-3 weeks after this draw. [place] Rev. Code 3701.243(E): This information has been [...] or diagnoses. Performed By: #### 3 1201-7, 5195-3, 37851-4 ####[facility] LABCLIA [id number] [place] [address] [place] PAP TESTon 10-18-2024 ADEQUACY Satisfactory for interpretation. Normal [facility] Comment on above: Order Comment: Speci men Type: FLUID SPECIMENOrdering Facility: [facility] Address: [address] [place] [address] Performed By: #### L [id number] ####[facility] [id number] [address] [place] CASE REPORT Normal [facility] Comment on above: Order Comment: Speci men Type: FLUID SPECIMENOrdering Facility: [facility] Address: [address] [place] [address] Result Comment: Gyne cologic Cytology Report Case: [id number] Authorizing Provider: Temitope Bear APRN.CNErika Collected: 10/18/2024 10:44 AM Ordering Location: OB/Gynecology Received: 10/18/2024 12:00 PM First Screen: Serena Renteria CT, ASCP Pathologist: Iwona Turner MD Specimen: Pap Test, ThinPrep, Cervix Performed By: #### L [id number] ####[facility]ORY[facility]IA [id number] [place] [address] [place] CLINICAL HISTORY, CYTOLOGY, CARTOON DESIGNER Routine Exam Normal [facility] Comment on above: Order Comment: Speci men Type: FLUID SPECIMENOrdering Facility: [facility] Address: [address] [place] [address] Result Comment: Prev ious ASCUS Intra Uterine Device, No Menses Performed By: #### L [id number] ####[facility] [id number] [place] [address] [place] CYTOLOGY PAP OTHER INTERPRETATION Normal [facility] Comment on above: Order Comment: Speci men Type: FLUID SPECIMENOrdering Facility: [facility] Address: [address] [place] [address] Result Comment: Bact eria present morphologically consistent with Actinomyces species. Acute inflammation. Performed By: #### L [id number] ####[facility] [id number] [place] [address] [place] FINAL PERFORMING LAB Normal [facility] Comment on above: Order Comment: Speci men Type: FLUID SPECIMENOrdering Facility: [facility] Address: [address] [place] [address] Result Comment: Tech nical component, staff anesthetist screening performed at [facility], [address], [place] [address] CLIA# [id number] Diagnostic interpretation performed at [facility], [address], [place] [address] CLIA# [id number] Combination Operator: Madelyn Day M.D. Performed By: #### L [id number] ####[facility] [id number] [address] [place] INTERPRETATION, CYTOLOGY, CARTOON DESIGNER Normal [facility] Comment on above: Order Comment: Speci men Type: FLUID SPECIMENOrdering Facility: [facility] Address: [address] [place] [address] Result Comment: Nega tive for intraepithelial lesion or malignancy. at 0841 EST Performed By: #### L [id number] ####[facility] [id number] [address] [place] PAP DISCLAIMER COMMENT The Pap Smear is a screening test for cervical cancer. False negative results occur with all screening tests, emphasizing the need for rescreening at recommended intervals, and clinical correlation. Normal [facility] Comment on above: Order Comment: Speci men Type: FLUID SPECIMENOrdering Facility: [facility] Address: [address] [place] [address] Performed By: #### L [id number] ####[facility] [id number] [place] [address] [place] PAP ENDLESS STEAMER TENDER COMMENT This specimen has be en analyzed by the ThinPrep Imaging System, an automated imaging and review system, which assists the laboratory in evaluating cells on ThinPrep Pap tests. Following automated imaging, selected cobb from every slide are reviewed by a staff anesthetist. Normal [facility] Comment on above: Order Comment: Speci men Type: FLUID SPECIMENOrdering Facility: [facility] Address: [address] [place] [address] Performed By: #### L [id number] ####[facility] [id number] [place] [address] [place] Reagin and Treponema pallidu m IgG and IgM [Interp]on 10-18-2024 T. pallidum IgG+IgM IA Ql (S) Non-Reactive Normal Nonreactive [facility] Comment on above: Order Comment: Janis covington Type: BLOOD SPECIMENOrdering Facility: [facility] Address: [address] [place] [address] Performed By: #### 3 1201-7, 5195-3, 73023-1 ####[facility] LABIA [id number] [place] [address] [place] Reagin+T pallidum IgG+IgM Se rPl-Impon 10-18-2024 Reagin and Treponema pallidum IgG and IgM [Interp] Cannot exclude recent Treponemal infection if specimen collected within 7-10 days after appearance of suspect lesions or 2-3 weeks after an exposure. Clinical correlation is required. Normal [facility] Comment on above: Order Comment: Ginai men Type: BLOOD SPECIMENOrdering Facility: [facility] Address: [address] [place] [address] Performed By: #### 3 1201-7, 5195-3, 26179-7 ####[facility] LABCLIA [id number] [place] [id number] [place] CNPTheresa 08-13-2024 CNPN Telephone (NETNAV) -- DANE OLIVERA ([id number]) 1985 F Date Time Provider Department 08/13/24 NO PCP NETNAV During your visit today, we recorded the following information about you: Rebecca Rhodes 08/13/2024 3:44 PM Signed [employer] [facility]IG[employer] OUTREACH Action/I 1st attempt, call placed to pt for PT consult for OAB (overactive bladder) [N32.81]. Order is dated 07/05/24. Pt declined to [facility] at this time. Pt plans to go [...] Status:Closed by REBECCA RHODES on 08/13/24 Normal [facility] CBC W Auto Differential pane l (Bld)on 07-08-2024 Basophils (Bld) [#/Vol] 0.07 10*3/uL Normal <0.11 [facility] Comment on above: Order Comment: Speci men Type: BLOOD SPECIMENOrdering Facility: [facility] Address: [address] [place] [address] Performed By: #### 5 7021-8 ####[facility] LABCLIA [id number] [place] [address] [place] Basophils/100 WBC (Bld) 0.9 % Normal [facility] Comment on above: Order Comment: Speci men Type: BLOOD SPECIMENOrdering Facility: [facility] Address: [address] [place] [address] Performed By: #### 5 7021-8 ####[facility] LABCLIA [id number] [place] [address] [place] Differential cell count method Nom (Bld) Auto Normal [facility] Comment on above: Order Comment: Speci men Type: BLOOD SPECIMENOrdering Facility: [facility] Address: [address] [place] [address] Performed By: #### 5 7021-8 ####[facility] LABCLIA [id number] [place] [address] [place] Eosinophils (Bld) [#/Vol] 0.14 10*3/uL Normal <0.46 [facility] Comment on above: Order Comment: Speci men Type: BLOOD SPECIMENOrdering Facility: [facility] Address: [address] [place] [address] Performed By: #### 5 7021-8 ####[facility] LABCLIA [id number] [place] [address] [place] Eosinophils/100 WBC (Bld) 1.8 % Normal [facility] Comment on above: Order Comment: Speci men Type: BLOOD SPECIMENOrdering Facility: [facility] Address: [address] [place] [address] Performed By: #### 5 7021-8 ####[facility] LABCLIA [id number] [place] [address] [place] Erythrocyte distribution width (RBC) [Ratio] 12.2 % Normal 11.5-15.0 [facility] Comment on above: Order Comment: Speci men Type: BLOOD SPECIMENOrdering Facility: [facility] Address: [address] [place] [address] Performed By: #### 5 7021-8 ####[facility] LABIA [id number] [place] [address] [place] Hematocrit (Bld) [Volume fraction] 41.2 % Normal 36.0-46.0 [facility] Comment on above: Order Comment: Speci men Type: BLOOD SPECIMENOrdering Facility: [facility] Address: [address] [place] [address] Performed By: #### 5 7021-8 ####[facility] LABIA [id number] [place] [address] [place] Hemoglobin (Bld) [Mass/Vol] 13.6 g/dL Normal 11.5-15.5 [facility] Comment on above: Order Comment: Speci men Type: BLOOD SPECIMENOrdering Facility: [facility] Address: [address] [place] [address] Performed By: #### 5 7021-8 ####[facility] LABCLIA [id number] [place] [address] [place] Immature granulocytes (Bld) [#/Vol] 0.03 10*3/uL Normal <0.10 [facility] Comment on above: Order Comment: Speci men Type: BLOOD SPECIMENOrdering Facility: [facility] Address: [address] [place] [address] Performed By: #### 5 7021-8 ####[facility] LABCLIA [id number] [place] [address] [place] Immature granulocytes/100 WBC (Bld) 0.4 % Normal [facility] Comment on above: Order Comment: Speci men Type: BLOOD SPECIMENOrdering Facility: [facility] Address: [address] [place] [address] Performed By: #### 5 7021-8 ####[facility] LABCLIA [id number] [place] [address] [place] Lymphocytes (Bld) [#/Vol] 2.90 10*3/uL Normal 1.00-4.00 [facility] Comment on above: Order Comment: Speci men Type: BLOOD SPECIMENOrdering Facility: [facility] Address: [address] [place] [address] Performed By: #### 5 7021-8 ####[facility] LABIA [id number] [place] [address] [place] Lymphocytes/100 WBC (Bld) 38.2 % Normal [facility] Comment on above: Order Comment: Speci men Type: BLOOD SPECIMENOrdering Facility: [facility] Address: [address] [place] [address] Performed By: #### 5 7021-8 ####[facility] LABIA [id number] [place] [address] [place] MCH (RBC) [Entitic mass] 31.0 pg Normal 26.0-34.0 [facility] Comment on above: Order Comment: Speci men Type: BLOOD SPECIMENOrdering Facility: [facility] Address: [address] [place] [address] Performed By: #### 5 7021-8 ####[facility] LABCLIA [id number] [place] [address] [place] MCHC (RBC) [Mass/Vol] 33.0 g/dL Normal 30.5-36.0 [facility] Comment on above: Order Comment: Speci men Type: BLOOD SPECIMENOrdering Facility: [facility] Address: [address] [place] [address] Performed By: #### 5 7021-8 ####[facility] LABCLIA [id number] [place] [address] [place] MCV (RBC) [Entitic vol] 93.8 fL Normal 80.0-100.0 [facility] Comment on above: Order Comment: Speci men Type: BLOOD SPECIMENOrdering Facility: [facility] Address: [address] [place] [address] Performed By: #### 5 7021-8 ####[facility] LABIA [id number] [place] [address] [place] Monocytes (Bld) [#/Vol] 0.71 10*3/uL Normal <0.87 [facility] Comment on above: Order Comment: Speci men Type: BLOOD SPECIMENOrdering Facility: [facility] Address: [address] [place] [address] Performed By: #### 5 7021-8 ####[facility] LABIA [id number] [place] [address] [place] Monocytes/100 WBC (Bld) 9.4 % Normal [facility] Comment on above: Order Comment: Speci men Type: BLOOD SPECIMENOrdering Facility: [facility] Address: [address] [place] [address] Performed By: #### 5 7021-8 ####[facility] LABIA [id number] [place] [address] [place] Neutrophils (Bld) [#/Vol] 3.74 10*3/uL Normal 1.45-7.50 [facility] Comment on above: Order Comment: Speci men Type: BLOOD SPECIMENOrdering Facility: [facility] Address: [address] [place] [address] Performed By: #### 5 7021-8 ####[facility] LABCLIA [id number] [place] [address] [place] Neutrophils/100 WBC (Bld) 49.3 % Normal [facility] Comment on above: Order Comment: Speci men Type: BLOOD SPECIMENOrdering Facility: [facility] Address: [address] [place] [address] Performed By: #### 5 7021-8 ####[facility] LABCLIA [id number] [place] [address] [place] Nucleated RBC (Bld) [#/Vol] 10*3/uL Normal <0.01 [facility] Comment on above: Order Comment: Speci men Type: BLOOD SPECIMENOrdering Facility: [facility] Address: [address] [place] [address] Performed By: #### 5 7021-8 ####[facility] LABCLIA [id number] [place] [address] [place] Nucleated RBC/100 WBC (Bld) [Ratio] 0.0 /100 WBC Normal [facility] Comment on above: Order Comment: Speci men Type: BLOOD SPECIMENOrdering Facility: [facility] Address: [address] [place] [address] Performed By: #### 5 7021-8 ####[facility] LABCLIA [id number] [place] [address] [place] Platelet mean volume (Bld) [Entitic vol] 9.5 fL Normal 9.0-12.7 [facility] Comment on above: Order Comment: Speci men Type: BLOOD SPECIMENOrdering Facility: [facility] Address: [address] [place] [address] Performed By: #### 5 7021-8 ####[facility] LABCLIA [id number] [place] [address] [place] Platelets (Bld) [#/Vol] 354 10*3/uL Normal 150-400 [facility] Comment on above: Order Comment: Speci men Type: BLOOD SPECIMENOrdering Facility: [facility] Address: [address] [place] [address] Performed By: #### 5 7021-8 ####[facility] LABCLIA [id number] [place] [address] [place] RBC (Bld) [#/Vol] 4.39 10*6/uL Normal 3.90-5.20 [facility] Comment on above: Order Comment: Speci men Type: BLOOD SPECIMENOrdering Facility: [facility] Address: [address] [place] [address] Performed By: #### 5 7021-8 ####[facility] LABCLIA [id number] [place] [address] [place] WBC (Bld) [#/Vol] 7.59 10*3/uL Normal 3.70-11.00 [facility] Comment on above: Order Comment: Speci men Type: BLOOD SPECIMENOrdering Facility: [facility] Address: [address] [place] [address] Performed By: #### 5 7021-8 ####[facility] LABCLIA [id number] [place] [address] [place] Comprehensive metabolic 2000 panelon 07-08-2024 Albumin [Mass/Vol] 4.2 g/dL Normal 3.9-4.9 [facility] Comment on above: Order Comment: Speci men Type: BLOOD SPECIMENOrdering Facility: [facility] Address: [address] [place] [address] Performed By: #### 2 4323-8, 52719-0 ####[facility] LABCLIA [id number] [place] [address] [place] ALP [Catalytic activity/Vol] 41 U/L Normal 34-123 [facility] Comment on above: Order Comment: Speci men Type: BLOOD SPECIMENOrdering Facility: [facility] Address: [address] [place] [id number] Performed By: #### 2 4323-8, 05185-1 ####[facility] LABCLIA [id number] [place] [address] [place] ALT [Catalytic activity/Vol] 10 U/L Normal 7-38 [facility] Comment on above: Order Comment: Speci men Type: BLOOD SPECIMENOrdering Facility: [facility] Address: [address] [place] [address] Performed By: #### 2 4323-8, 44416-7 ####[facility] LABCLIA [id number] [place] [address] [place] Anion gap [Moles/Vol] 10 mmol/L Normal 8-15 [facility] Comment on above: Order Comment: Speci men Type: BLOOD SPECIMENOrdering Facility: [facility] Address: [address] [place] [address] Performed By: #### 2 4323-8, 32171-1 ####[facility] LABCLIA [id number] [place] [address] [place] AST [Catalytic activity/Vol] 13 U/L Normal 13-35 [facility] Comment on above: Order Comment: Speci men Type: BLOOD SPECIMENOrdering Facility: [facility] Address: [address] [place], [place] [address] Performed By: #### 2 4323-8, 14062-5 ####[facility] LABCLIA [id number] [place] [id number] [place] Bilirubin [Mass/Vol] 0.7 mg/dL Normal 0.2-1.3 [facility] Comment on above: Order Comment: Speci men Type: BLOOD SPECIMENOrdering Facility: [facility] Address: [address] [place] [address] Performed By: #### 2 4323-8, 03424-7 ####[facility] LABCLIA [id number] [place] [id number] [place] Calcium [Mass/Vol] 9.0 mg/dL Normal 8.5-10.2 [facility] Comment on above: Order Comment: Speci men Type: BLOOD SPECIMENOrdering Facility: [facility] Address: [address] [place] [address] Performed By: #### 2 4323-8, 34124-3 ####[facility] LABCLIA [id number] [place] [address] [place] Chloride [Moles/Vol] 106 mmol/L Normal 98-107 [facility] Comment on above: Order Comment: Speci men Type: BLOOD SPECIMENOrdering Facility: [facility] Address: [address] [place] [address] Performed By: #### 2 4323-8, 03694-6 ####[facility] LABCLIA [id number] [place] [address] [place] CO2 [Moles/Vol] 24 mmol/L Normal 22-30 [facility] Comment on above: Order Comment: Speci men Type: BLOOD SPECIMENOrdering Facility: [facility] Address: [address] [place] [address] Performed By: #### 2 4323-8, 50765-3 ####[facility] LABCLIA [id number] [place] [address] [place] Creatinine [Mass/Vol] 0.84 mg/dL Normal 0.58-0.96 [facility] Comment on above: Order Comment: Speci men Type: BLOOD SPECIMENOrdering Facility: [facility] Address: [address] [place] [address] Performed By: #### 2 4323-8, 22270-6 ####[facility] LABCLIA [id number] [place] [address] [place] Creatinine and Glomerular filtration rate.predicted panel (S/P/Bld) 91 mL/min/1.73m??? Normal >=60 [facility] Comment on above: Order Comment: Janis covington Type: BLOOD SPECIMENOrdering Facility: [facility] Address: [address] [place] [address] Result Comment: Grace mated Glomerular Filtration Rate [...] accurately reflect actual GFR. Performed By: #### 2 4323-8, 90281-0 ####[facility] LABCLIA [id number] [place] [address] [place] Glucose [Mass/Vol] 96 mg/dL Normal 74-99 [facility] Comment on above: Order Comment: Janis covington Type: BLOOD SPECIMENOrdering Facility: [facility] Address: [address] [place] [address] Result Comment: The [place] Diabetes Association (ADA) provides guidance for cutoff [...] Standards of Medical Care in Diabetes 2016, [place] [employer]. Diabetes Care. 2016.39(Suppl 1). Performed By: #### 2 4323-8, 32305-9 ####[facility] LABCLIA [id number] [place] [address] [place] Potassium [Moles/Vol] 3.7 mmol/L Normal 3.7-5.1 [facility] Comment on above: Order Comment: Speci men Type: BLOOD SPECIMENOrdering Facility: [facility] Address: [address] [id number] Performed By: #### 2 4323-8, 70107-1 ####[facility] LABCLIA [id number] [place] [address] [place] Protein [Mass/Vol] 6.5 g/dL Normal 6.3-8.0 [facility] Comment on above: Order Comment: Speci men Type: BLOOD SPECIMENOrdering Facility: [facility] Address: [address] [place] [address] Performed By: #### 2 4323-8, 99881-0 ####[facility] LABCLIA [id number] [place] [address] [place] Sodium [Moles/Vol] 140 mmol/L Normal 136-144 [facility] Comment on above: Order Comment: Speci men Type: BLOOD SPECIMENOrdering Facility: [facility] Address: [address] [place] [address] Performed By: #### 2 4323-8, 91504-2 ####[facility] LABCLIA [id number] [place] [address] [place] Urea nitrogen [Mass/Vol] 11 mg/dL Normal 7-21 [facility] Comment on above: Order Comment: Speci men Type: BLOOD SPECIMENOrdering Facility: [facility] Address: [address] [place] [id number] Performed By: #### 2 4323-8, 21122-6 ####[facility] LABCLIA [id number] [place] [address] [place] Lipid 1996 panelon 4 Cholesterol [Mass/Vol] 191 mg/dL Normal <200 [facility] Comment on above: Order Comment: Speci men Type: BLOOD SPECIMENOrdering Facility: [facility] Address: [address] [place] [address] Result Comment: <200 mg/dL, Desirable 200-239 mg/dL, Borderline high >239 mg/dL, High Performed By: #### 2 4323-8, 93225-3 ####[facility] LABCLIA [id number] [place] [address] [place] Cholesterol in HDL [Mass/Vol] 35 mg/dL Low >39 [facility] Comment on above: Order Comment: Speci men Type: BLOOD SPECIMENOrdering Facility: [facility] Address: [address] [place] [address] Result Comment: 40-5 9 mg/dL, Acceptable >59 mg/dL, High: Negative risk factor for coronary heart disease <40 mg/dL, Low: Positive risk factor for coronary heart disease Performed By: #### 2 4323-8, 36932-0 ####[facility] LABCLIA [id number] [address] [place] [facility] Cholesterol in LDL [Mass/Vol] 136 mg/dL High <100 [facility] Comment on above: Order Comment: Janis nadya Type: BLOOD SPECIMENOrdering Facility: [facility] Address: [address] [place] [address] Result Comment: <100 mg/dL, Optimal 100-129 mg/dL, Near optimal/above optimal 130-159 mg/dL, Borderline high 160-189 mg/dL, High >189 mg/dL, Very high Secondary prevention optimal LDL Cholesterol levels are recommended to be < 70 mg/dL Performed By: #### 2 4323-8, 04072-4 ####[facility] LABCLIA [id number] [place] [address] [place] Cholesterol in LDL/Cholesterol in HDL [Mass ratio] 3.89 {ratio} High <2.54 [facility] Comment on above: Order Comment: Janis covington Type: BLOOD SPECIMENOrdering Facility: [facility] Address: [address] [place] [address] Result Comment: Refe hannah: 1. National Cholesterol Education Program ATP III Guideline At-A-Glance Quick Desk Reference: National Heart, Lung, and Blood Alva. National Institutes of Health. 2001: NIH Publication No. 01-3305. 2. An International Atherosclerosis Society position paper: global recommendations for the management of dyslipidemia: executive summary, Atherosclerosis. 2014: 232(2):410-413. Performed By: #### 2 4323-8, 39713-4 ####[facility] LABCLIA [id number] [place] [address] [place] Cholesterol in VLDL [Mass/Vol] 20 mg/dL Normal <30 [facility] Comment on above: Order Comment: Speci men Type: BLOOD SPECIMENOrdering Facility: [facility] Address: [address] [place] [address] Performed By: #### 2 4328, ####[facility] LABCLIA [id number] [place] [address] [place] Cholesterol non HDL [Mass/Vol] 156 mg/dL High <130 [facility] Comment on above: Order Comment: Ginai men Type: BLOOD SPECIMENOrdering Facility: [facility] Address: [address] [place] [address] Result Comment: <130 mg/dL, Optimal 130-159 mg/dL, Near optimal/above optimal 160-189 mg/dL, Borderline high 190-219 mg/dL, High >219 mg/dL, Very high Secondary prevention optimal non HDL Cholesterol levels are recommended to be <100 mg/dL Performed By: #### 2 4328, ####[facility] LABCLIA [id number] [place] [address] [place] Cholesterol.total/Cho lesterol in HDL [Mass ratio] 5.46 {ratio} High <5.10 [facility] Comment on above: Order Comment: Ginai men Type: BLOOD SPECIMENOrdering Facility: [facility] Address: [address] [place] [address] Performed By: #### 2 4323-8, 08868-1 ####[facility] LABCLIA [id number] [address] [place] FASTING TIME 12 hrs Normal [facility] Comment on above: Order Comment: Speci men Type: BLOOD SPECIMENOrdering Facility: [facility] Address: [address] [place] [address] Performed By: #### 2 4323-8, 38951-5 ####[facility] LABCLIA [id number] [place] [address] [place] Triglyceride [Mass/Vol] 102 mg/dL Normal <150 [facility] Comment on above: Order Comment: Speci men Type: BLOOD SPECIMENOrdering Facility: [facility] Address: [address] [place] [address] Result Comment: <150 mg/dL, Normal 150-199 mg/dL, Borderline high 200-499 mg/dL, High >499 mg/dL, Very high Performed By: #### 2 4323-8, 26797-2 ####[facility] LABCLIA [id number] [address] [place] CNOVon 07-05-2024 CNOV Office Visit (CHUCKY ) -- DANE OLIVERA ([id number]) 1985 F Date Time Provider Department 07/05/24 1:00 PM HUI VALDES During your visit today, we recorded the following information about you: Pulse Respiration Blood pressure Weight 94/minute 16/minute 136/84 78.8 kg Height 1.604 m Hui Valdes APRN.CNP 07/05/2024 3:14 PM Signed 07/05/2024 Patient presents [...] to pelvic floor therapy but moved from [place] which is were she was going to [...] nausea, vomiting, or diarrhea : See 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 Normal [facility] CNOVon 11-07-2023 CNOV Office Visit (UROLAE ) -- DANE OLIVERA ([id number]) 1985 F Date Time Provider Department 11/07/23 12:45 PM JOANNA WILKES During your visit today, we recorded the following information about you: Pulse Blood pressure 73/minute 110/71 Joanna Wilkes MD 12/14/2023 10:49 AM Signed [facility] NEW PATIENT CONSULT/HISTORY AND PHYSICAL PATIENT: Dane Olivera (38 year old) REFERRING PROVIDER: Ernesto Carlin PCP: Ernesto Carlin MD Consultation requested by Ernesto Carlin for an opinion regarding Dane Olivera. 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 Normal [facility] CBC W Auto Differential pane l (Bld)on 07-01-2023 Basophils (Bld) [#/Vol] 0.06 10*3/uL <0.11 k/uL [facility] Basophils/100 WBC (Bld) 0.8 % [facility] Differential cell count method Nom (Bld) Auto [facility] Eosinophils (Bld) [#/Vol] 0.14 10*3/uL <0.46 k/uL [facility] Eosinophils/100 WBC (Bld) 1.8 % [facility] Erythrocyte distribution width (RBC) [Ratio] 13.2 % 11.5 - 15.0 % [facility] Hematocrit (Bld) [Volume fraction] 41.1 % 36.0 - 46.0 % [facility] Hemoglobin (Bld) [Mass/Vol] 13.4 g/dL 11.5 - 15.5 g/dL [facility] Immature granulocytes (Bld) [#/Vol] <0.10 k/uL [facility] Immature granulocytes/100 WBC (Bld) 0.1 % [facility] Lymphocytes (Bld) [#/Vol] 2.98 10*3/uL 1.00 - 4.00 k/uL [facility] Lymphocytes/100 WBC (Bld) 39.3 % [facility] MCH (RBC) [Entitic mass] 30.6 pg 26.0 - 34.0 pg [facility] MCHC (RBC) [Mass/Vol] 32.6 g/dL 30.5 - 36.0 g/dL [facility] MCV (RBC) [Entitic vol] 93.8 fL 80.0 - 100.0 fL [facility] Monocytes (Bld) [#/Vol] 0.73 10*3/uL <0.87 k/uL [facility] Monocytes/100 WBC (Bld) 9.6 % [facility] Neutrophils (Bld) [#/Vol] 3.67 10*3/uL 1.45 - 7.50 k/uL [facility] Neutrophils/100 WBC (Bld) 48.4 % [facility] Nucleated RBC (Bld) [#/Vol] <0.01 k/uL [facility] Nucleated RBC/100 WBC (Bld) [Ratio] 0.0 /100 WBC [facility] Platelet mean volume (Bld) [Entitic vol] 10.0 fL 9.0 - 12.7 fL [facility] Platelets (Bld) [#/Vol] 342 10*3/uL 150 - 400 k/uL [facility] RBC (Bld) [#/Vol] 4.38 10*6/uL 3.90 - 5.2 0 m/uL [facility] WBC (Bld) [#/Vol] 7.59 10*3/uL 3.70 - 11. 00 k/uL [facility] Comprehensive metabolic 2000 panelon 07-01-2023 Albumin [Mass/Vol] 4.0 g/dL 3.9 - 4.9 g/dL [facility] ALP [Catalytic activity/Vol] 49 U/L 34 - 123 U/L [facility] ALT [Catalytic activity/Vol] 11 U/L 7 - 38 U/L [facility] Anion gap [Moles/Vol] 11 mmol/L 9 - 18 mmol/L [facility] AST [Catalytic activity/Vol] 17 U/L 13 - 35 U/L [facility] Bilirubin [Mass/Vol] 0.2 mg/dL 0.2 - 1 .3 mg/dL [facility] Calcium [Mass/Vol] 9.3 mg/dL 8.5 - 10. 2 mg/dL [facility] Chloride [Moles/Vol] 108 mmol/L High 97 - 10 5 mmol/L [facility] CO2 [Moles/Vol] 21 mmol/L Low 22 - 30 mmol/L [facility] Creatinine [Mass/Vol] 0.67 mg/dL 0.58 - 0.96 mg/dL [facility] Estimated Glomerular Filtration Rate 116 mL/min/1.73m >=60 mL/min/1.73m [facility] Glucose [Mass/Vol] 88 mg/dL 74 - 99 mg/dL [facility] Potassium [Moles/Vol] 4.1 mmol/L 3.7 - 5.1 mmol/L [facility] Protein [Mass/Vol] 6.3 g/dL 6.3 - 8.0 g/dL [facility] Sodium [Moles/Vol] 140 mmol/L 136 - 144 mmol/L [facility] Urea nitrogen [Mass/Vol] 8 mg/dL 7 - 21 mg/dL [facility] HbA1c (Bld)on 07-01-2023 Average glucose Estimated from glycated hemoglobin (Bld) [Mass/Vol] 111 mg/dL [facility] HbA1c (Bld) [Mass fraction] 5.5 % 4.3 - 5.6 % [facility] Lipid 1996 panelon Cholesterol [Mass/Vol] 175 mg/dL <200 mg/dL [facility] Cholesterol in HDL [Mass/Vol] 33 mg/dL Low >39 mg/dL [facility] Cholesterol in LDL [Mass/Vol] 121 mg/dL High <100 mg/dL [facility] Cholesterol in LDL/Cholesterol in HDL [Mass ratio] 3.67 {ratio} High <2.54 [facility] Cholesterol in VLDL [Mass/Vol] 21 mg/dL <30 mg/dL [facility] Cholesterol non HDL [Mass/Vol] 142 mg/dL High <130 mg/dL [facility] Cholesterol.total/Cho lesterol in HDL [Mass ratio] 5.30 {ratio} High <5.10 [facility] Fasting Time 12 hrs [facility] Triglyceride [Mass/Vol] 106 mg/dL <150 mg/dL [facility] CNOVon 03-26-2023 CNOV Office Visit (DONNIE 4) -- DANE OLIVERA ([id number]) 1985 F Date Time Provider Department 03/26/23 2:00 PM JESSENIA GRACE4 During your visit today, we recorded the following information about you: Pulse Blood pressure Weight Height 77/minute 123/79 89.7 kg 1.613 m Jessenia Grace MD 03/26/2023 2:29 PM Signed SURGICAL SERVICES HISTORY AND PHYSICAL EXAMINATION SERVICE DATE: 03/26/2023 SERVICE TIME: 2:13 PM PRIMARY CARE PHYSICIAN: Ernesto Carlin MD SUBJECTIVE CHIEF COMPLAINT: hernia HISTORY [...] SECTION HX EGD DIAGNOSTIC 01/17/2023 INDUCED BY [facility] 2008 FAMILY HISTORY: FAMILY HISTORY Problem Relation Age of Onset Heart Mother Hypertension Father No Known Problems Brother No Known Problems Maternal Grandmother No Known Problems Maternal Grandfather Breast Cancer Paternal Grandmother No Known Problems Paternal Grandfather No Known Problems Brother SOCIAL HISTORY: Social History Tobacco Use Smoking status: Former Packs/day: (more content not included)... Normal [facility] ANES POSTPROC EVALon 023 ANES POSTPROC EVAL HNO ID: [id number] Author: Tato Fierro MD Service: Anesthesiology Author Type: Physician Type: Anesthesia Postprocedure Evaluation Filed: 01/17/2023 11:21 AM Note Text: POST ANESTHESIA EVALUATION NOTE : 1985 Procedure Summary Date: 01/17/23 Room / Location: [facility] Anesthesia Start: 827 Anesthesia Stop: 899 Procedure: EGD DIAGNOSTIC Diagnosis: Gastroesophageal reflux disease, unspecified whether esophagitis present Scheduled Providers: Jessenia Grace MD Responsible Provider: Tato Fierro MD Anesthesia Type: general ASA Status: 2 Anesthesia Type: general Airway Type: ETT Last Vitals Vitals Value Taken Time BP 123/71 01/17/23918 Temp 36.2 ?C (97.2 ?F) 01/17/23 0856 Pulse 90 01/17/23918 Resp 17 01/17/23918 SpO2 97 % 01/17/23918 Post Anesthesia Patient [...] of care. Anesthesia Observations No Documentation SIGNATURE: Tato Fierro MD PATIENT NAME: Dane Olivera DATE: January 17, 2023 TIME: 11:16 AM CSN: [id number] Normal [facility] ANES PRE-OPon 01-17-2023 ANES PRE-OP HNO ID: [id number] Author: Tato Fierro MD Service: Anesthesiology Author Type: Physician Type: Anesthesia Preprocedure Evaluation Filed: 01/17/2023 7:43 AM Note Text: ANESTHESIOLOGY DAY OF SURGERY NOTE : 1985 Procedure Information Date/Time: 01/17/23829 Scheduled providers: Jessenia Grace MD Procedure: EGD DIAGNOSTIC Location: [facility] Estimated body mass index is 36.09 kg/m? [...] none. Vitals Value Taken Time BP 155/87 01/17/23 0730 Pulse 85 01/17/23 0730 Resp 19 01/17/23 0730 Temp 36.8 ?C (98.2 ?F) 01/17/23 0730 SpO2 97 % 01/17/23 0730 Outpatient Medications as of 01/17/2023 Medication Sig - SUMAtriptan (IMITREX) 100 mg tablet Take 1 tablet by mouth as needed for migraine headache (see administration instructions). - omeprazole (PRILOSEC) 40 mg capsule Take 1 capsule by mouth once daily. - hydrocortisone (ANUSOL-HC) 2.5 % rectal cream by RECTAL route twice daily. - Taukposv-Pr-Ghp-Fe-FA tab Take 1 tablet by mouth once [...] obtained within 48 hours of Surgery/Procedure. SIGNATURE: Tato Fierro MD PATIENT NAME: Dane Olivera DATE: January 17, 2023 TIME: 7:43 AM CSN: [id number] [facility] HCG ( test) Ql (U)o n 01-17-2023 Specific gravity (U) [Rel density] 1.023 Normal 1.006-1.029 [facility] Comment on above: Order Comment: Speci men Type: URINE SPECIMENOrdering Facility: [facility] Address: [address] [place] [address] Result Comment: If s pecific gravity is <1.005 then results may be falsely negative. Serum HCG is recommended. Performed By: #### 2 106-3 ####[facility] LABORATORYCLIA [id number] [address] OF [facility] Specific gravity (U) [Rel density] 1.023 1.006 - 1.029 [facility] HCG Preg Ur Qlon 01-17-2023 HCG ( test) Ql (U) Negative Normal Negative [facility] Comment on above: Order Comment: Speci men Type: URINE SPECIMENOrdering Facility: [facility] Address: [address] [place] [address] Result Comment: This test is intended to aid in the early detection of . Very dilute urine samples, as indicated by a low specific gravity, may not contain corporate sales representative levels of hCG. This test [...] for . Performed By: #### 2 106-3 ####[facility] LABORATORYCLIA [id number] [address] [place] HCG QUAL URon 01-17-2023 HCG ( test) Ql (U) Negative Negative [facility] HISTORY PHYSICALon HISTORY PHYSICAL HNO ID: [id number] Author: Julio Dial APRN.CELL EFFICIENCY SUPERVISOR Service: ? Author Type: Nurse Practitioner Type: HANDP Filed: 01/17/2023 8:24 AM Note Text: . HISTORY AND PHYSICAL EXAMINATION SERVICE DATE: 01/17/2023 SERVICE TIME: 7:23 AM PRIMARY CARE PHYSICIAN: Ernesto Carlin MD REASON FOR VISIT: Dane Olivera is a 37 year old female who is scheduled for EGD at the request of Dr. Jessenia Grace for routine HANDP. The reason for [...] Procedure Laterality Date SECTION HX INDUCED BY [facility] 2008 FAMILY HISTORY Problem Relation Age of [...] cream by RECTAL route twice daily. 01/10/2023 Truthcea-Gx-Ygw-Fe-FA tab Take 1 tablet by mouth once [...] weeks. Cardiovascular (more content not included)... Normal [facility] OPERATIVE NOon 01-17-2023 OPERATIVE NO HNO ID: [id number] Author: Jessenia Grace MD Service: General Surgery Author Type: Physician Type: Operative Report Filed: 01/17/2023 8:56 AM Note Text: OPERATIVE/PROCEDURE REPORT LOG ID: [id number] Surgery/Procedure Date: Incision/Procedure Start Time: 8:42 AM Incision Close/Procedure End Time: 8:45 AM Surgeon(s)/Proceduralist(s ) and 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(s): Surgeon(s) and Role: * Jessenia Grace MD - Proceduralist No Additional Staff [...] or erosions or other abnormalities Operative Indication: Dane Olivera is a 37 year old female [...] None I performed the procedure independently SIGNATURE: Jessenia Grace MD PATIENT NAME: Dane Olivera DATE: January 17, 2023 TIME: 8:51 AM PAGER/CONTACT #: Normal [facility] SURGICAL PATHOLOGYon 023 CASE REPORT Normal [facility] Comment on above: Order Comment: Janis covington Type: TISSUE SPECIMENOrdering Facility: [facility] Address: [address] [place] [address] Result Comment: Surg [facility] Pathology Report Case: [id number] Authorizing Provider: Jessenia Grace MD Collected: 01/17/2023 08:42 AM Ordering Location: [facility] Received: 01/17/2023 10:26 AM Pathologist: Brenton Jones MD Specimen: ANTRUM (STOMACH) BIOPSY Performed By: #### S ####[facility] LABORATORYCLIA [id number] [address] FINAL DIAGNOSIS Normal [facility] Comment on above: Order Comment: Janis covington Type: TISSUE SPECIMENOrdering Facility: [facility] Address: [address] [place], [place] [id number] Result Comment: [place], antrum, biopsy: - Mild reactive gastropathy. No morphologic evidence of Helicobacter pylori. Performed By: #### S ####[facility] LABORATORYCLIA [id number] [address] FINAL PERFORMING LAB Normal [facility] Comment on above: Order Comment: Speci men Type: TISSUE SPECIMENOrdering Facility: [facility] Address: [address] [address] Result Comment: Diag nostic interpretation performed at [facility], [address] [place] [address] CLIA# [id number] Combination Operator: Tato Daly M.D. Performed By: #### S ####[facility] LABORATORYCLIA [id number] [address] GROSS DESCRIPTION Normal [facility] Comment on above: Order Comment: Speci nadya Type: TISSUE SPECIMENOrdering Facility: [facility] Address: [address] [place] [address] Result Comment: A. A NTRUM (STOMACH) BIOPSY Received in formalin labeled antrum (stomach) biopsy are multiple pieces of schmidt, soft tissue aggregating to 0.7 x 0.3 x 0.2 cm. Totally submitted in one cassette. Gross examination performed at [facility], [address] [place] [address] CLIA# [id number] RSA January 17, 2023 1:29 PM Performed By: #### S ####[facility] LABORATORYCLIA [id number] [address] CNOVon 01-01-2023 CNOV Office Visit (DONNIE 4) -- DANE OLIVERA ([id number]) 1985 F Date Time Provider Department 01/01/23 2:30 PM JESSENIA GRACE During your visit today, we recorded the following information about you: Pulse Blood pressure Weight Height 80/minute 118/76 93.9 kg 1.613 m Jessenia Grace MD 01/01/2023 2:55 PM Signed SURGICAL SERVICES HISTORY AND PHYSICAL EXAMINATION SERVICE DATE: 01/01/2023 SERVICE TIME: 2:25 PM PRIMARY CARE PHYSICIAN: Ernesto Carlin MD SUBJECTIVE CHIEF COMPLAINT: hernia HISTORY [...] Procedure Laterality Date SECTION HX INDUCED BY [facility] 2008 FAMILY HISTORY: FAMILY HISTORY Problem Relation [...] Take 1 capsule by mouth once daily. Ctfjvssf-Kd-Ocv-Fe-FA tab Take 1 tablet by mouth once daily. (Patient not ta (more content not included)... Normal [facility] CNPNon 01-01-2023 CNPN Telephone (AGGENS4) -- DANE OLIVERA ([id number]) 1985 F Date Time Provider Department 01/01/23 JESSENIA GRACEENS4 During your visit today, we recorded the following information about you: Ese Contreras MA 01/01/2023 3:56 PM Signed EGD scheduled for 01/17/2023 at 8:30 am. Prep/instructions given to patient at checkout. Ese Contreras MA Allergies As of Date: 01/01/2023 Noted Allergy Reaction AMOXICILLIN 07/07/2018 16 - Unknown Comments: WAS TOLD BY MOM Date Reviewed: 01/01/2023 Reviewed by: Jessenia Grace MD - Fully Assessed Reason for Visit: Appointment [186] Cmt: EGD Prescriptions as of 01/01/2023 - hydrocortisone (ANUSOL-HC) 2.5 % rectal cream by RECTAL route twice daily. - SUMAtriptan (IMITREX) 100 mg tablet Take 1 tablet by mouth as needed for migraine headache (see administration instructions). - omeprazole (PRILOSEC) 40 mg capsule Take 1 capsule by mouth once daily. - Hwqcjoei-Qk-Vyd-Fe-FA tab Take 1 tablet by mouth once [...] Status:Closed by ESE CONTRERAS on 01/01/23 Normal [facility] Office Visit (Urgent Care)on 12-25-2022 Follow-up visit Diagnoses/Problems Assessed URI, acute (465.9) (J06.9) Orders URI, acute Start: Azithromycin 250 MG Oral Tablet (Zithromax Z-Hu); TAKE 2 TABLETS ON DAY 1 THEN TAKE 1 TABLET A DAY FOR 4 DAYS Rx By: Ana Cristina Larson; Dispense: 0 Days ; #:1 X 6 Tablet Pack; Refill: 0;For: URI, acute; THEA = N; Sent To: [facility]48[facility] Start: methylPREDNISolone 4 MG Oral Tablet Therapy Pack (Medrol); Take as directed Rx By: Ana Cristina Larson; Dispense: 0 Days ; #:1 X 21 Tablet Pack; Refill: 0;For: URI, acute; THEA = N; Sent To: [facility] Patient Discussion/Summary Bronchitis for sinusitis Start [...] pain nausea or vomiting. Patient has used oidd-miy-wmhpkwq cough and cold remedies with only minimal [...] or clubbing Signatures Electronically signed by : Ana Cristina Larson APRN-TIMBO; Dec 25 2022 9:54AM EST (Author) Normal [facility] OBSTETRIC ULTRASOUND WHIon 1 10-31-2021 [facility] UA DIP, URINE (POC)on 2021 BILIRUBIN UA (POCT) Negative Negative [facility] CLARITY UA (POCT) Clear [facility] COLOR UA (POCT) Yellow [facility] GLUCOSE UA (POCT) Negative Negative mg/dL [facility] HEMOGLOBIN/BLOOD UA (POCT) Negative Negative [facility] KETONE UA (POCT) Negative Negative mg/dL [facility] LEUKOCYTES UA (POCT) Large Abnormal Negative [facility] NITRITE UA (POCT) Negative Negative [facility] PH UA (POCT) 7.0 4.5 - 8.0 [facility] Protein Ql (U) Negative Negative mg/dL [facility] SPECIFIC GRAVITY UA (POCT) 1.020 1.005 - 1.030 [facility] UROBILINOGEN UA (POCT) 0.2 E.U./dL Normal E.U./dL [facility] UA DIP, URINE (POC)on 2021 BILIRUBIN UA (POCT) Negative Negative [facility] CLARITY UA (POCT) Clear [facility] COLOR UA (POCT) Yellow [facility] GLUCOSE UA (POCT) Negative Negative mg/dL [facility] HEMOGLOBIN/BLOOD UA (POCT) Negative Negative [facility] KETONE UA (POCT) 15 mg/dL Abnormal Negative mg/dL [facility] LEUKOCYTES UA (POCT) Negative Negative [facility] NITRITE UA (POCT) Negative Negative [facility] PH UA (POCT) 7.5 4.5 - 8.0 [facility] Protein Ql (U) Negative Negative mg/dL [facility] SPECIFIC GRAVITY UA (POCT) 1.020 1.005 - 1.030 [facility] UROBILINOGEN UA (POCT) 1.0 E.U./dL Normal E.U./dL [facility] UA DIP, URINE (POC)on 2021 BILIRUBIN UA (POCT) Negative Negative [facility] CLARITY UA (POCT) Clear [facility] COLOR UA (POCT) Yellow [facility] GLUCOSE UA (POCT) Negative Negative mg/dL [facility] HEMOGLOBIN/BLOOD UA (POCT) Negative Negative [facility] KETONE UA (POCT) Negative Negative mg/dL [facility] LEUKOCYTES UA (POCT) Small Abnormal Negative [facility] NITRITE UA (POCT) Negative Negative [facility] PH UA (POCT) 7.0 4.5 - 8.0 [facility] Protein Ql (U) Trace Abnormal Negative mg/dL [facility] SPECIFIC GRAVITY UA (POCT) 1.020 1.005 - 1.030 [facility] UROBILINOGEN UA (POCT) 0.2 E.U./dL Normal E.U./dL [facility] OBSTETRIC ULTRASOUND WHIon 1 09-18-2021 [facility] UA DIP, URINE (POC)on 2021 BILIRUBIN UA (POCT) Negative Negative [facility] CLARITY UA (POCT) Clear [facility] COLOR UA (POCT) Yellow [facility] GLUCOSE UA (POCT) Negative Negative mg/dL [facility] HEMOGLOBIN/BLOOD UA (POCT) Negative Negative [facility] KETONE UA (POCT) Negative Negative mg/dL [facility] LEUKOCYTES UA (POCT) Small Abnormal Negative [facility] NITRITE UA (POCT) Negative Negative [facility] PH UA (POCT) 7.5 4.5 - 8.0 [facility] Protein Ql (U) Negative Negative mg/dL [facility] SPECIFIC GRAVITY UA (POCT) 1.020 1.005 - 1.030 [facility] UROBILINOGEN UA (POCT) 0.2 E.U./dL Normal E.U./dL [facility] UA DIP, URINE (POC)on 2021 BILIRUBIN UA (POCT) Negative Negative [facility] CLARITY UA (POCT) Clear [facility] COLOR UA (POCT) Yellow [facility] GLUCOSE UA (POCT) Negative Negative mg/dL [facility] HEMOGLOBIN/BLOOD UA (POCT) Negative Negative [facility] KETONE UA (POCT) Trace Negative mg/dL [facility] LEUKOCYTES UA (POCT) Small Abnormal Negative [facility] NITRITE UA (POCT) Negative Negative [facility] PH UA (POCT) 7.0 4.5 - 8.0 [facility] Protein Ql (U) Negative Negative mg/dL [facility] SPECIFIC GRAVITY UA (POCT) 1.025 1.005 - 1.030 [facility] UROBILINOGEN UA (POCT) 0.2 E.U./dL Normal E.U./dL [facility] UA DIP, URINE (POC)on 2021 BILIRUBIN UA (POCT) Negative Negative [facility] CLARITY UA (POCT) Clear [facility] COLOR UA (POCT) Yellow [facility] GLUCOSE UA (POCT) Negative Negative mg/dL [facility] HEMOGLOBIN/BLOOD UA (POCT) Negative Negative [facility] KETONE UA (POCT) Negative Negative mg/dL [facility] LEUKOCYTES UA (POCT) Small Abnormal Negative [facility] NITRITE UA (POCT) Negative Negative [facility] PH UA (POCT) 8.0 4.5 - 8.0 [facility] Protein Ql (U) Negative Negative mg/dL [facility] SPECIFIC GRAVITY UA (POCT) 1.020 1.005 - 1.030 [facility] UROBILINOGEN UA (POCT) 0.2 E.U./dL Normal E.U./dL [facility] UA DIP, URINE (POC)on 2021 BILIRUBIN UA (POCT) Negative Negative [facility] CLARITY UA (POCT) Clear [facility] COLOR UA (POCT) Yellow [facility] GLUCOSE UA (POCT) Negative Negative mg/dL [facility] HEMOGLOBIN/BLOOD UA (POCT) Negative Negative [facility] KETONE UA (POCT) Trace Negative mg/dL [facility] LEUKOCYTES UA (POCT) Small Abnormal Negative [facility] NITRITE UA (POCT) Negative Negative [facility] PH UA (POCT) 7.0 4.5 - 8.0 [facility] Protein Ql (U) 30 mg/dL Abnormal Negative mg/dL [facility] SPECIFIC GRAVITY UA (POCT) 1.020 1.005 - 1.030 [facility] UROBILINOGEN UA (POCT) 0.2 E.U./dL Normal E.U./dL [facility] CBC panel Auto (Bld)on 02-14 Erythrocyte distribution width (RBC) [Ratio] 13.1 % 11.5 - 15.0 % [facility] Hematocrit (Bld) [Volume fraction] 38.1 % 36.0 - 46.0 % [facility] Hemoglobin (Bld) [Mass/Vol] 12.6 g/dL 11.5 - 15.5 g/dL [facility] MCH (RBC) [Entitic mass] 30.5 pg 26.0 - 34.0 pg [facility] MCHC (RBC) [Mass/Vol] 33.1 g/dL 30.5 - 36.0 g/dL [facility] MCV (RBC) [Entitic vol] 92.3 fL 80.0 - 100.0 fL [facility] Nucleated RBC (Bld) [#/Vol] 10*3/uL <0.01 k/uL [facility] Platelet mean volume (Bld) [Entitic vol] 9.6 fL 9.0 - 12.7 fL [facility] Platelets (Bld) [#/Vol] 353 10*3/uL 150 - 400 k/uL [facility] RBC (Bld) [#/Vol] 4.13 10*6/uL 3.90 - 5.2 0 m/uL [facility] WBC (Bld) [#/Vol] 11.89 10*3/uL High 3.70 - 11 .00 k/uL [facility] TYPE AND SCREENon 02-14-2022 ABO O [facility] HIstorical Ab Scr Status Negative [facility] Rh Nom (Bld) Positive [facility] Type and Screen Expiration 02/17/2022 23:59 [facility] UA DIP, URINE (POC)on 2021 BILIRUBIN UA (POCT) Negative Negative [facility] CLARITY UA (POCT) Clear [facility] COLOR UA (POCT) Yellow [facility] GLUCOSE UA (POCT) Negative Negative mg/dL [facility] HEMOGLOBIN/BLOOD UA (POCT) Negative Negative [facility] KETONE UA (POCT) Negative Negative mg/dL [facility] LEUKOCYTES UA (POCT) Negative Negative [facility] NITRITE UA (POCT) Negative Negative [facility] PH UA (POCT) 7.0 4.5 - 8.0 [facility] Protein Ql (U) Negative Negative mg/dL [facility] SPECIFIC GRAVITY UA (POCT) 1.025 1.005 - 1.030 [facility] UROBILINOGEN UA (POCT) 0.2 E.U./dL Normal E.U./dL [facility] Office Visit (Urgent Care)on 01-23-2022 Follow-up [...] Capsule Vitals Vital Signs Recorded: 23Jan2022 10:07AM Sewjmrtohtt39.6 F, Temporal Heart Cuot471 Oypcmhes890 Zomingehr37 Height5 ft 3 in Jitclz062 lb 4 oz BMI Nwiobamsks57.72 kg/m2 BSA Calculated2.03 O2 Zfnqhuczqa04 Physical Exam Vitals signs and nursing notes [...] Jan 23 2022 10:16AM EST (Author) Normal [facility] ED Provider Noteon ED Provider Note [facility] EMERGENCY DEPT EMERGENCY DEPARTMENT ENCOUNTER Pt Name: Dane Olivera Birthdate 1985 Date of evaluation: 06/18/2021 [...] patient come from an ECF, SNF, Rehab, Assisted or other Congregate setting: No no no (If yes to above patient needs a Covid-19 test) HPI Dane Olivera is a 35 y.o. female who [...] Gatherings with Friends and Family: ? Attends Jewish Services: ? Active Member of Clubs or Organizations: ? Attends Club or Organization Meetings: ? Marital Status: Intimate Partner Violence: ? Fear of Current or Ex-Partner: ? Emotionally Abused: ? Physically Abused: ? Sexually Abused: SCREENINGS PHYSICAL EXAM (up to 7 for level 4, 8 or more for level 5) ED Triage Vitals BP Temp Temp Source Pulse Resp SpO2 Height Weight 06/18/21232806/18/21232806/18/21232806/18/21 23206/18/21 23206/18/21 23206/19/21 0010 06/19/21 0010 134/71 [...] erythema prese (more content not included)... Normal [facility] CULTURE URINEon 12-25-2020 CULTURE URINE CULTURE URINE --> St atus: F Normal urogenital gregory present. Normal [facility] Comment on above: Performed By: #### C /UR ####[facility] [employer] [id number] [place] [address] ABO Rh Blood Typeon 12-25-19 21 ABO and Rh group Nom (Bld) ABO Group: O Rh, Gel: POS Normal [facility] Comment on above: Performed By: #### A TY ####[facility] Basic Metabolic Panelon 04- Calcium [Mass/Vol] 9.4 mg/dL Normal 8.4-10.4 [facility] Comment on above: Performed By: #### B MP3, QWNT4, TROPN, LIPA4, HEMDF, LFT3 #### [address] [address] [address] [place], [place] Glucose [Mass/Vol] 87 mg/dL Normal 70-100 [facility] Comment on above: Performed By: #### B MP3, QWNT4, TROPN, LIPA4, HEMDF, LFT3 #### [address] [address] [address] [place], [place] Urea nitrogen [Mass/Vol] 13 mg/dL Normal 7-20 [facility] Comment on above: Performed By: #### B MP3, QWNT4, TROPN, LIPA4, HEMDF, LFT3 #### [address] [address] [address] [place], [place] Anion gap [Moles/Vol] 8 mmol/L Normal 3-13 [facility] Comment on above: Performed By: #### B MP3, QWNT4, TROPN, LIPA4, HEMDF, LFT3 #### [address] [address] [address] [place], [place] CO2 [Moles/Vol] 25 mmol/L Normal 22-30 [facility] Comment on above: Performed By: #### B MP3, QWNT4, TROPN, LIPA4, HEMDF, LFT3 #### [address] [address] [address] [place], [place] Creatinine [Mass/Vol] 0.62 mg/dL Normal 0.52-1.25 [facility] Comment on above: Performed By: #### B MP3, QWNT4, TROPN, LIPA4, HEMDF, LFT3 #### [address] [address] [address] [place], [place] eGFR OTHER > 90.0 Normal >60 [facility] Comment on above: Result Comment: KDIG [...] MP3, QWNT4, TROPN, LIPA4, HEMDF, LFT3 #### [address] GFR/1.73 sq M.predicted among blacks MDRD (S/P/Bld) [Vol rate/Area] mL/min/{1.73_m2} Normal >60 [facility] Comment on above: Performed By: #### B MP3, QWNT4, TROPN, LIPA4, HEMDF, LFT3 #### [address] Chloride [Moles/Vol] 105 mmol/L Normal 98-107 [facility] Comment on above: Performed By: #### B MP3, QWNT4, TROPN, LIPA4, HEMDF, LFT3 #### [address] Potassium [Moles/Vol] 3.9 mmol/L Normal 3.5-5.1 [facility] Comment on above: Performed By: #### B MP3, QWNT4, TROPN, LIPA4, HEMDF, LFT3 #### [address] Sodium [Moles/Vol] 138 mmol/L Normal 135-145 [facility] Comment on above: Performed By: #### B MP3, QWNT4, TROPN, LIPA4, HEMDF, LFT3 #### [address] [address] [address] [place], [place] Complete Urinalysison 2020 Appearance (U) Clear Normal Clear [facility] Comment on above: Result Comment: . Performed By: #### C UA2 ####[facility] [id number] [place], [place] Bacteria Moderate Abnormal Negative [facility] Comment on above: Result Comment: . Performed By: #### C UA2 ####[facility] [address] [place], [place] Bilirubin,Urine Negative Normal Negative [facility] Comment on above: Result Comment: . Performed By: #### C UA2 ####[id number] [place], [place] Cast, Hyaline Negative Normal Negative [facility] Comment on above: Result Comment: . Performed By: #### C UA2 ####[id number] [place], [place] Color (U) Light-Yellow Normal Lt. Yellow [facility] Comment on above: Result Comment: . Performed By: #### C UA2 ####[facility] [employer] [id number] [place], [place] Glucose Ql (U) Normal Normal Normal (<70) [facility] Comment on above: Result Comment: . Performed By: #### C UA2 ####[facility] [employer] [id number] [place], [place] Ketone,Urine Negative Normal Negative [facility] Comment on above: Result Comment: . Performed By: #### C UA2 ####[facility] [employer] [id number] [place], [place] Leukocytes,Urine 250 Brionna/uL Abnormal Negative [facility] Comment on above: Result Comment: . Performed By: #### C UA2 ####[facility] [employer] [address] [place], [place] Mucous Threads Few Normal Negative [facility] Comment on above: Result Comment: . Performed By: #### C UA2 ####[facility] [employer] [id number] [place], [place] Nitrites,Urine Negative Normal Negative [facility] Comment on above: Result Comment: . Performed By: #### C UA2 ####[place] [id number] . [place], [place] Occult Blood,Urine 0.2 mg/dL Abnormal Negative [facility] Comment on above: Result Comment: . Performed By: #### C UA2 ####[address] pH,Urine 6.0 Normal 5.0-8.0 [facility] Comment on above: Result Comment: . Performed By: #### C UA2 ####[address] RBC, Urine 0 - 2 Normal 0-2 [facility] Comment on above: Result Comment: . Performed By: #### C UA2 ####[address] Specific Carmichaels,Urine 1.014 Normal 1.005 - 1.030 [facility] Comment on above: Result Comment: . Performed By: #### C UA2 ####[address] Squamous Epithelial 6 - 10 Abnormal 3-5 [facility] Comment on above: Result Comment: . Performed By: #### C UA2 ####[address] Total Protein,Urine Negative Normal Negative [facility] Comment on above: Result Comment: . Performed By: #### C UA2 ####[address] [place], [place] Urobilinogen,Urine Normal Normal Normal (0-1) [facility] Comment on above: Result Comment: . Performed By: #### C UA2 ####[address] WBC, Urine 11 - 25 Abnormal 0-5 [facility] Comment on above: Result Comment: . Performed By: #### C UA2 ####[address] Hemogram w/ Autodiffon 12-24 Abs Baso Cnt 0.1 10*3/uL Normal 0.0-0.2 [facility] Comment on above: Performed By: #### B MP3, QWNT4, TROPN, LIPA4, HEMDF, LFT3 #### [place] [address] [address] [place], [place] Abs Neutrophile Cnt 7.6 10*3/uL High 1.8-7.0 [facility] Comment on above: Performed By: #### B MP3, QWNT4, TROPN, LIPA4, HEMDF, LFT3 #### [place] [address] [address] [place], [place] Basophils/100 WBC (Bld) 1.0 % Normal 0.0-2.0 [facility] Comment on above: Performed By: #### B MP3, QWNT4, TROPN, LIPA4, HEMDF, LFT3 #### [place] [address] [address] [place], [place] Eosinophils (Bld) [#/Vol] 0.2 10*3/uL Normal 0.0-0.5 [facility] Comment on above: Performed By: #### B MP3, QWNT4, TROPN, LIPA4, HEMDF, LFT3 #### [place] [address] [address] [place], [place] Eosinophils/100 WBC (Bld) 1.8 % Normal 1.0-6.0 [facility] Comment on above: Performed By: #### B MP3, QWNT4, TROPN, LIPA4, HEMDF, LFT3 #### [address] Erythrocyte distribution width (RBC) [Ratio] 13.4 % Normal 11.5-14.5 [facility] Comment on above: Performed By: #### B MP3, QWNT4, TROPN, LIPA4, HEMDF, LFT3 #### [address] Granulocytes/100 WBC (Bld) 56.8 % Normal 40.0-80.0 [facility] Comment on above: Performed By: #### B MP3, QWNT4, TROPN, LIPA4, HEMDF, LFT3 #### [address] Hematocrit (Bld) [Volume fraction] 37.0 % Normal 35.0-47.0 [facility] Comment on above: Performed By: #### B MP3, QWNT4, TROPN, LIPA4, HEMDF, LFT3 #### [address] Hemoglobin (Bld) [Mass/Vol] 12.3 g/dL Normal 11.7-16.0 [facility] Comment on above: Performed By: #### B MP3, QWNT4, TROPN, LIPA4, HEMDF, LFT3 #### [address] Lymphocytes (Bld) [#/Vol] 4.5 10*3/uL High 1.0-4.3 [facility] Comment on above: Performed By: #### B MP3, QWNT4, TROPN, LIPA4, HEMDF, LFT3 #### [address] Lymphocytes/100 WBC (Bld) 33.1 % Normal 20.0-40.0 [facility] Comment on above: Performed By: #### B MP3, QWNT4, TROPN, LIPA4, HEMDF, LFT3 #### [address] MCH (RBC) [Entitic mass] 31.1 pg Normal 26.0-34.0 [facility] Comment on above: Performed By: #### B MP3, QWNT4, TROPN, LIPA4, HEMDF, LFT3 #### [address] MCHC 33.2 % Normal 32.0-36.0 [facility] Comment on above: Performed By: #### B MP3, QWNT4, TROPN, LIPA4, HEMDF, LFT3 #### [place] [address] [address] [place] MCV (RBC) [Entitic vol] 93.4 fL Normal 79.0-98.0 [facility] Comment on above: Performed By: #### B MP3, QWNT4, TROPN, LIPA4, HEMDF, LFT3 #### [place] [address] [address] [place], [place] Monocytes (Bld) [#/Vol] 1.0 10*3/uL High 0.0-0.8 [facility] Comment on above: Performed By: #### B MP3, QWNT4, TROPN, LIPA4, HEMDF, LFT3 #### [place] [address] [address] [place], [place] Monocytes/100 WBC (Bld) 7.3 % Normal 2.0-10.0 [facility] Comment on above: Performed By: #### B MP3, QWNT4, TROPN, LIPA4, HEMDF, LFT3 #### [place] [address] [address] [place], [place] Platelet mean volume (Bld) [Entitic vol] 7.5 fL Normal 7.4-10.4 [facility] Comment on above: Performed By: #### B MP3, QWNT4, TROPN, LIPA4, HEMDF, LFT3 #### [place] [address] [address] [place] Platelets (Bld) [#/Vol] 349 10*3/uL Normal 140-440 [facility] Comment on above: Performed By: #### B MP3, QWNT4, TROPN, LIPA4, HEMDF, LFT3 #### [place] [address] [address] [place], [place] RBC (Bld) [#/Vol] 3.96 10*6/uL Normal 3.80-5.20 [facility] Comment on above: Performed By: #### B MP3, QWNT4, TROPN, LIPA4, HEMDF, LFT3 #### [place] [address] [address] [place], [place] WBC (Bld) [#/Vol] 13.4 10*3/uL High 3.6-10.7 [facility] Comment on above: Performed By: #### B MP3, QWNT4, TROPN, LIPA4, HEMDF, LFT3 #### [place] [address] [address] [place], [place] Hepatic Functionon 1 ALP [Catalytic activity/Vol] 64 U/L Normal 38-126 [facility] Comment on above: Performed By: #### B MP3, QWNT4, TROPN, LIPA4, HEMDF, LFT3 #### [place] [address] [place], [place] ALT [Catalytic activity/Vol] 20 U/L Normal 0-34 [facility] Comment on above: Result Comment: The ALT test is performed by an updated assay method. Please note that the reference intervals have been changed and are now sex specific. Performed By: #### B MP3, QWNT4, TROPN, LIPA4, HEMDF, LFT3 #### [place] [address] [address] [place], [place] AST [Catalytic activity/Vol] 27 U/L Normal 15-46 [facility] Comment on above: Performed By: #### B MP3, QWNT4, TROPN, LIPA4, HEMDF, LFT3 #### [place] [address] [address] [place] Bilirubin [Mass/Vol] 0.3 mg/dL Normal 0.2-1.3 [facility] Comment on above: Performed By: #### B MP3, QWNT4, TROPN, LIPA4, HEMDF, LFT3 #### [place] [address] [place], [place] Bilirubin.indirect [Mass/Vol] 0.0 mg/dL Normal 0.0-0.3 [facility] Comment on above: Performed By: #### B MP3, QWNT4, TROPN, LIPA4, HEMDF, LFT3 #### [address] [address] [place] [address] Protein [Mass/Vol] 7.4 g/dL Normal 6.3-8.2 [facility] Comment on above: Performed By: #### B MP3, QWNT4, TROPN, LIPA4, HEMDF, LFT3 #### [address] [address] Albumin [Mass/Vol] 4.4 g/dL Normal 3.5-5.0 [facility] Comment on above: Performed By: #### B MP3, QWNT4, TROPN, LIPA4, HEMDF, LFT3 #### [facility] [address] [place] [address] Lipaseon 12-24-2020 Lipase [Catalytic activity/Vol] 110 U/L Normal 23-300 [facility] Comment on above: Performed By: #### B MP3, QWNT4, TROPN, LIPA4, HEMDF, LFT3 #### [address] [address] Troponin Ion 12-24-2020 Troponin I.cardiac [Mass/Vol] ng/mL Normal 0.000-0.034 [facility] Comment on above: Result Comment: . Performed By: #### B MP3, QWNT4, TROPN, LIPA4, HEMDF, LFT3 #### [address] [address] Troponin x1on 12-24-2020 Troponin I.cardiac [Mass/Vol] ng/mL 0.000 - 0.034 ng/mL [facility] Work Phone: Comment on above: . Test Performed by [facility], [address] [place] [address] [facility] Work Phone: US ABDOMEN LIMITEDon 021 [place], [facility] Results From [facility] - 12/24/2020 12:55 AM EDT Patient Name: DANE OLIVERA Ultrasound ACCESSION EXAM DATE/TIME PROCEDURE ORDERING PROVIDER [id number] 12/24/2020 00:13 EDT US Abdomen Limited MD MILES SCOTT ALAN CPT code 27694 Reason For Exam (US Abdomen Limited) RUQ [...] 12/24/2020 0:51 [facility] Work Phone: Patient Name: DANE AQUINO Ultrasound ACCESSION EXAM DATE/TIME PROCEDURE ORDERING PROVIDER [id number] 12/24/2020 00:13 EDT US Abdomen Limited MD MILES SCOTT ALAN CPT code 04967 Reason For Exam (US Abdomen Limited) RUQ [...] d. Ultrasound Report Report Dictated on Workstation: [id number] --- Final --- Dictated: 12/24/2020 0:51 am Dictating Physician: MD MAHONEY WILLIAM Signed Date and Time: 12/24/2020 0:54 am Signed by: MD MAHONEY WILLIAM Transcribed Date and Time: 12/24/2020 0:51 [facility] Work Phone: US Abdomen Limitedon 021 US Abdomen Limited Patient Name: DANE AQUINO Ultrasound ACCESSION EXAM DATE/TIME PROCEDURE ORDERING PROVIDER [id number] 12/24/2020 00:13 EDT US Abdomen Limited MD MILES SCOTT ALAN CPT code 67798 Reason For Exam (US Abdomen Limited) RUQ [...] Transcribed Date and Time: 12/24/2020 0:51 Normal [facility] US OB TRANSVAGINALon 021 [id number]ound ACCESSION EXAM DATE/TIME PROCEDURE ORDERING PROVIDER [id number] 12/24/2020 00:08 EDT [place] [id number] -REYNALDO MANDEL Transvaginal CPT code 72822 Reason For Exam (US Transvaginal) , abdominal [...] Phone: [place], [facility]/2020 12:55 AM EDT Patient Name: DANE OLIVERA Ultrasound ACCESSION EXAM DATE/TIME PROCEDURE ORDERING PROVIDER [id number] 12/24/2020 00:08 EDT [place] [id number] -REYNALDO MANDEL Transvaginal CPT code 69264 Reason For Exam (US Transvaginal) , abdominal [...] US Transvaginalon 12-24-2020 US Transvaginal Patient Name: DANE OLIVERA Ultrasound ACCESSION EXAM DATE/TIME PROCEDURE ORDERING PROVIDER [id number] 12/24/2020 00:08 [place]T [place] [id number] -REYNALDO MANDEL Transvaginal CPT code 14990 Reason For Exam (US Transvaginal) , abdominal [...] 6 d. Report Dictated on Workstation: [id number] Final Dictated: 12/24/2020 0:51 am Dictating Physician: MD MAHONEY WILLIAM Signed Date and Time: 12/24/2020 0:54 am Signed by: MD MAHONEY WILLIAM Transcribed Date and Time: 12/24/2020 0:51 Normal [facility] hCG Quantitativeon hCG Quantitative 8098 m[IU]/mL Abnormal [facility] Comment on above: Result Comment: Fema [...] MP3, QWNT4, TROPN, LIPA4, HEMDF, LFT3 #### [facility] [employer] [address] [place] [id number] ABO/RHon 12-23-2020 Sodium [Moles/Vol] O [facility] Work Phone: Sodium [Moles/Vol] Positive [facility] Work Phone: Test Performed by [facility], [facility] [address] [facility] Work Phone: Basic Metabolic Panelon 04- Anion gap [Moles/Vol] 8 mmol/L 3 - 13 mmol/L [facility] Work Phone: Calcium [Mass/Vol] 9.4 mg/dL 8.4 - 10. 4 mg/dL [facility] Work Phone: [phone] Chloride [Moles/Vol] 105 mmol/L 98 - 10 7 mmol/L [facility] Work Phone: [phone] CO2 [Moles/Vol] 25 mmol/L 22 - 30 mmol/L [facility] Work Phone: [phone] Creatinine [Mass/Vol] 0.62 mg/dL 0.52 - 1.25 mg/dL [facility] Work Phone: EGFR IF NonAfrican Albanian >90.0 >60 mL/min [facility] Work Phone: Comment on above: KDIGO guidelines [...] [Moles/Vol] 138 mmol/L 135 - 145 mmol/L [facility] Work Phone: Urea nitrogen (BldV) [Mass/Vol] 13 mg/dL 7 - 20 mg/dL [facility] Work Phone: ED Provider Noteon 1 ED Provider Note Emergency Department Encounter [facility] EMERGENCY DEPT Patient: Dane Olivera : 1985 Date of Evaluation: 12/23/2020 ED Supervising Physician: Kenny Miles MD I independently examined and evaluated Dane Olivera. I wore a N95 mask, gloves, and goggles for the entirety of this encounter. In brief, Dane Olivera is a 35 y.o. female that [...] ventricular rate of 71 beats per him. AK, QRS, QTc within normal is. Normal axis. [...] 12/25/20 1250 Kenny Miles MD 12/25/20 1251 [facility] ED Provider Note [facility] EMERGENCY DEPT EMERGENCY DEPARTMENT ENCOUNTER Pt Name: Dane MCELROYN: [id number] Birthdate 1985 Date of evaluation: 12/23/2020 Provider: [...] patient come from an ECF, SNF, Rehab, Assisted or other Congregate setting: no (If yes to above patient needs a Covid-19 test) HPI Dane Olivera is a 35 y.o. female who [...] on phone: None Gets together: None Attends oriental orthodox service: None Active member of club or [...] SpO2 Height Weight 12/23/20 2140 12/23/20 2140 12/23/20 2140 12/23/20 2140 12/23/20 2140 12/23/20 2140 12/23/20 21312/23/20 2140 129/78 99.2 ?F (37.3 ?C) Temporal 78 [...] abdominal t (more content not included)... Normal [facility], [facility]ANTITAT[facility], on 12-23-2020 hCG Quant 8098 m[IU]/mL Abnormal [facility] Work Phone: Comment on above: Females < [...] Interpretation and review of laboratory results Abnormal [facility] Work Phone: Test Performed by [facility], [address] [place] [address] [facility] Work Phone: Hemogram (CBC) w/Auto Diffon 12-23-2020 Absolute Baso # 0.1 10*3/uL 0.0 - 0.2 10*3/uL [facility] Work Phone: [phone] Absolute Neut # 7.6 10*3/uL High 1.8 - 7.0 10*3/uL [facility] Work Phone: Basophils/100 WBC (Bld) 1.0 % 0.0 - 2.0 % [facility] Work Phone: [phone] Eosinophils (Bld) [#/Vol] 0.2 10*3/uL 0.0 - 0.5 10*3/uL [facility] Work Phone: [phone] Eosinophils/100 WBC (Bld) 1.8 % 1.0 - 6.0 % [facility] Work Phone: [phone] Granulocytes/100 WBC (Bld) 56.8 % 40.0 - 80.0 % [facility] Work Phone: [phone] Hematocrit (Bld) [Volume fraction] 37.0 % 35.0 - 47.0 % [facility] Work Phone: [phone] Hemoglobin.gastrointe stinal spec 1 Ql (Stl) 12.3 g/dL 11.7 - 16.0 g/dL [facility] Work Phone: [phone] Interpretation and review of laboratory results Abnormal [facility] Work Phone: [phone] Lymphocytes (Bld) [#/Vol] 4.5 10*3/uL High 1.0 - 4.3 10*3/uL [facility] Work Phone: [phone] Lymphocytes/100 WBC (Bld) 33.1 % 20.0 - 40.0 % [facility] Work Phone: [phone] MCH (RBC) [Entitic mass] 31.1 pg 26.0 - 34.0 pg [facility] Work Phone: [phone] MCHC (RBC) [Mass/Vol] 33.2 % 32.0 - 36.0 % [facility] Work Phone: [phone] MCV (RBC) [Entitic vol] 93.4 fL 79.0 - 98.0 fL [facility] Work Phone: [phone] Monocytes (Bld) [#/Vol] 1.0 10*3/uL High 0.0 - 0.8 10*3/uL [facility] Work Phone: [phone] Monocytes/100 WBC (Bld) 7.3 % 2.0 - 10.0 % [facility] Work Phone: [phone] Platelet distribution width (Bld) [Ratio] 13.4 % 11.5 - 14.5 % [facility] Work Phone: 1) Platelet mean volume (Bld) [Entitic vol] 7.5 fL 7.4 - 10.4 fL [facility] Work Phone: Platelets (Bld) [#/Vol] 349 10*3/uL 140 - 440 10*3/uL [facility] Work Phone: RBC (Bld) [#/Vol] 3.96 10*6/uL 3.80 - 5.2 0 10*6/uL [facility] Work Phone: WBC (Bld) [#/Vol] 13.4 10*3/uL High 3.6 - 10.7 10*3/uL [facility] Work Phone: Test Performed by [facility], [address] [place] [address] [facility] Work Phone: Hepatic Function Panelon Albumin [Mass/Vol] 4.4 g/dL 3.5 - 5.0 g/dL [facility] Work Phone: ALP (Bld) [Catalytic activity/Vol] 64 U/L 38 - 126 U/L [facility] Work Phone: ALT [Catalytic activity/Vol] 20 U/L 0 - 34 U/L [facility] Work Phone: Comment on above: The ALT test is perf ormed by an updated assay method. Please note that the reference intervals have been changed and are now sex specific. AST [Catalytic activity/Vol] 27 U/L 15 - 46 U/L [facility] Work Phone: Bilirubin [Mass/Vol] 0.3 mg/dL 0.2 - 1 .3 mg/dL [facility] Work Phone: Bilirubin.direct [Mass/Vol] 0.0 mg/dL 0.0 - 0.3 mg/dL [facility] Work Phone: Free PSA/Prostate specific Ag.total [Mass fraction] 7.4 g/dL 6.3 - 8.2 g/dL [facility] Work Phone: Lipaseon 12-23-2020 Lipase [Catalytic activity/Vol] 110 U/L 23 - 300 U/L [facility] Work Phone: [phone] Otheron 12-23-2020 Test Performed by [facility], [address] [place] [address] [facility] Work Phone: [phone] Urinalysison 12-23-2020 Appearance (U) Clear Clear NA [facility] Work Phone: [phone] Comment on above: . Bacteria, UA Moderate Abnormal Negative /[HPF] [facility] Work Phone: [phone] Comment on above: . Bilirubin Urine Negative Negative mg/dL [facility] Work Phone: [phone] Comment on above: . Color (U) Light-Yellow Lt. Yellow NA [facility] Work Phone: [phone] Comment on above: . Glucose, Ur Normal Normal (<70) mg/dL [facility] Work Phone: [phone] Comment on above: . Hyaline Casts, UA Negative Negative /[LPF] [facility] Work Phone: [phone] Comment on above: . Interpretation and review of laboratory results Abnormal [facility] Work Phone: [phone] Ketones Ql (U) Negative Negative mg/dL [facility] Work Phone: [phone] Comment on above: . LEUKOCYTES, UA 250 Abnormal Negative Brionna/uL [facility] Work Phone: [phone] Comment on above: . Mucous Threads Few Negative /[LPF] [facility] Work Phone: [phone] Comment on above: . Nitrite, Urine Negative Negative NA [facility] Work Phone: [phone] Comment on above: . Occult Blood,Urine 0.2 mg/dL Abnormal Negative [facility] Work Phone: [phone] Comment on above: . pH (U) 6.0 [pH] [facility] Work Phone: [phone] Comment on above: . Protein (U) [Mass/Vol] Negative Negative mg/dL [facility] Work Phone: [phone] Comment on above: . RBC (U) [#/Vol] 0-2 0 - 2 /[HPF] [facility] Work Phone: Comment on above: . Specific Carmichaels, Urine 1.014 [facility] Work Phone: Comment on above: . Squam Epithel, UA 6-10 Abnormal 3 - 5 /[HPF] [facility] Work Phone: Comment on above: . Urobilinogen, Urine Normal Normal ( 0-1) mg/dL [facility] Work Phone: Comment on above: . WBC, UA 11-25 Abnormal 0 - 5 /[HPF] [facility] Work Phone: Comment on above: . Test Performed by [facility], [address] [place] [address] [facility] Work Phone: XR SHLDR >/=3V AP/NAZ AP/OTH [...] significant degenerative change. IMPRESSION: Unremarkable left shoulder. Cost Control Analyst: CATHERINE Transcribe Date/Time: Mar 27 2020 12:23A Dictated by : ERIC FERNANDES MD This examination was interpreted and the report reviewed and electronically signed by: ERIC FERNANDES MD on Mar 27 2020 12:24AM EST Normal [facility] Metabolic Panelon 08-04-2019 Sodium [Moles/Vol] [facility] [place] Sodium [Moles/Vol] [place], [place] Comment on above: The following drugs [...] non-forensic procedures. Otheron 08-04-2019 Test Performed by [facility], [address] [place] [address] [facility], [place] Urinalysison 08-04-2019 Amphetamines Ql (U) Negative [facility] Benzodiazepines Ql (U) Negative [facility] Cocaine Ql (U) Negative [facility] Opiates Ql (U) Negative [facility] Buprenorphine Screenon 07-06 Buprenorphine Screen Negative Normal [facility] Comment on above: Result Comment: Bupr enorphine (Suboxone) has been screened for by immunoassay at 5 ng/mL threshold. The screening assay provides only a preliminary test result. A more specific alternative method must be used to confirm preliminary positive results. Performed By: #### I GN #### [place] [address] [address] [facility], [place] Fentanyl Screen, Urineon Fentanyl Screen, Urn Negative Normal Negative [facility] Comment on above: Result Comment: Fent anyl has been screened for by Immunoassay at a 2ng/ml threshold. POSITIVE results are not confirmed by a more specific alternative method unless requested. If confirmation is needed, request confirmation under separate order. NOTE: These results are for medical treatment only. Analysis performed using non-forensic procedures. Performed By: #### I GN #### [facility] [address] [facility] [place] [facility] Screenon 2018 Amphetamines Ql (U) Negative [facility] Comment on above: Performed By: #### I GN #### [place] [address] [address] [facility], [place] Barbiturates Negative Normal [facility] Comment on above: Performed By: #### I GN #### [place] [address] [address] [facility], [place] Benzodiazepines Ql (U) Negative Normal [facility] Comment on above: Performed By: #### I GN #### [place] [address] [address] [place], [place] Cocaine Metabolites Negative [facility] Comment on above: Performed By: #### I GN #### [facility] [address] [place], [place] Comment Normal [facility] Comment on above: Result Comment: The [...] procedures. Performed By: #### I GN #### [place] [address] [address] [place], [place] Ethanol [Mass/Vol] Negative [facility] Comment on above: Performed By: #### I GN #### [place] [address] [address] [place], [place] Opiates Ql (U) Negative [facility] Comment on above: Performed By: #### I GN #### [place] [address] [address] [place], [place] Oxycodone Negative [facility] Comment on above: Performed By: #### I GN #### [place] [address] [address] [place], [place] THC Negative [facility] Comment on above: Performed By: #### I GN #### [place] [address] [address] [place], [place] Metabolic Panelon 07-05-2019 Sodium [Moles/Vol] Negative [place], [place] Comment on above: Buprenorphine (Subox one) has been screened for by immunoassay at 5 ng/mL threshold. The screening assay provides only a preliminary test result. A more specific alternative method must be used to confirm preliminary positive results. Sodium [Moles/Vol] [place], [place] Comment on above: The following drugs [...] procedures. Otheron 07-05-2019 Fentanyl Negative Negative NA [place] Comment on above: Fentanyl has been [...] performed using non-forensic procedures. Test Performed by [address] Test Performed by [place] [address] Urinalysison 07-05-2019 Amphetamines Ql (U) Negative [place] Benzodiazepines Ql (U) Negative [place] Cocaine Ql (U) Negative [place] Opiates Ql (U) Negative [place] Buprenorphine Screenon 06-29 Buprenorphine Screen Negative Normal [facility] Comment on above: Result Comment: Bupr enorphine (Suboxone) has been screened for by immunoassay at 5 ng/mL threshold. The screening assay provides only a preliminary test result. A more specific alternative method must be used to confirm preliminary positive results. Performed By: #### I GN, FENTU, BUPR #### [place] [address] [place] [address] Fentanyl Screen, Urineon Fentanyl Screen, Urn Negative Normal Negative [facility] Comment on above: Result Comment: Fent anyl has been screened for by Immunoassay at a 2ng/ml threshold. POSITIVE results are not confirmed by a more specific alternative method unless requested. If confirmation is needed, request confirmation under separate order. NOTE: These results are for medical treatment only. Analysis performed using non-forensic procedures. Performed By: #### I GN #### [facility] [address] [place] [address] Fentanyl, Urineon 06-28-2019 Fentanyl Negative Negative NA [place] Comment on above: Fentanyl has been sc reened for by Immunoassay at a 2ng/ml threshold. POSITIVE results are not confirmed by a more specific alternative method unless requested. If confirmation is needed, request confirmation under separate order. NOTE: These results are for medical treatment only. Analysis performed using non-forensic procedures. [place] [facility] Screenon 2018 Amphetamines Ql (U) Negative [place] Benzodiazepines Ql (U) Negative [facility], [place] Cocaine Ql (U) Negative [facility], [place] Opiates Ql (U) Negative [place] Sodium [Moles/Vol] [place] Comment on above: The following drugs [...] using non-forensic procedures. Amphetamines Ql (U) Negative [facility] Comment on above: Performed By: #### I GNSHAWU, BUPR #### [facility] [address] [place] [address] Barbiturates Negative Normal [facility] Comment on above: Performed By: #### I GN, FENTU, BUPR #### [facility] [address] [place], [place] Benzodiazepines Ql (U) Negative [facility] Comment on above: Performed By: #### I MICHAEL FENTU, BUPR #### [facility] [address] [place], [place] Cocaine Metabolites Negative [facility] Comment on above: Performed By: #### I GN FENTU, BUPR #### [facility] [address], [place] Comment Normal [facility] Comment on above: Result Comment: The [...] using non-forensic procedures. Performed By: #### I MICHAEL FENTU, BUPR #### [place] [address] [place], [place] Ethanol [Mass/Vol] Negative [facility] Comment on above: Performed By: #### I GN, FENTU, BUPR #### [facility] [address] [place], [place] Opiates Ql (U) Negative [facility] Comment on above: Performed By: #### I GN, FENTU, BUPR #### [facility] [address] [place], [place] Oxycodone Negative [facility] Comment on above: Performed By: #### I GN, FENTU, BUPR #### [facility] [address] [place], [place] THC Negative [facility] Comment on above: Performed By: #### I GN, FENTU, BUPR #### [facility] [address], [place] Metabolic Panelon 06-28-2019 Sodium [Moles/Vol] Negative [place] Comment on above: Buprenorphine (Subox one) has been screened for by immunoassay at 5 ng/mL threshold. The screening assay provides only a preliminary test result. A more specific alternative method must be used to confirm preliminary positive results. Otheron 06-28-2019 Test Performed by [facility], [address] [facility] [place] [address] [place], [place] [facility] 2018 Amphetamines Ql (U) Negative [facility] Comment on above: Performed By: #### I GN #### [place] [address] [address] [place], [place] Barbiturates Negative [facility] Comment on above: Performed By: #### I GN #### [place] [address] [place], [place] Benzodiazepines Ql (U) Negative [facility] Comment on above: Performed By: #### I GN #### [place] [address] [place], [place] Cocaine Metabolites Negative [facility] Comment on above: Performed By: #### I GN #### [place] [address] [place], [place] Comment [facility] Comment on above: Result Comment: The [...] procedures. Performed By: #### I GN #### [facility] [address] [place], [place] Ethanol [Mass/Vol] Negative [facility] Comment on above: Performed By: #### I GN #### [facility] [address] [facility], [place] Opiates Ql (U) Negative [facility] Comment on above: Performed By: #### I GN #### [facility] [address] [facility] [place] Oxycodone Negative [facility] Comment on above: Performed By: #### I GN #### [facility] [address] [facility], [place] THC Negative [facility] Comment on above: Performed By: #### I GN #### [facility] [address] [facility], [place] [facility] 2018 Amphetamines Ql (U) Negative [facility] Benzodiazepines Ql (U) Negative [facility] Cocaine Ql (U) Negative [facility] Opiates Ql (U) [place] Sodium [Moles/Vol] [place] Comment on above: The following drugs [...] non-forensic procedures. Test Performed by [facility], [address] [facility] [place] [address] [place], [place] Amphetamines Ql (U) Negative [facility] Comment on above: Performed By: #### I GN #### [facility] [address] [facility], [place] Barbiturates Negative [facility] Comment on above: Performed By: #### I GN #### [place] [address] [address] [facility], [place] Benzodiazepines Ql (U) Negative [facility] Comment on above: Performed By: #### I GN #### [facility] [address] [place], [place] Cocaine Metabolites Negative [facility] Comment on above: Performed By: #### I GN #### [facility] [address] [place], [place] Comment [facility] Comment on above: Result Comment: The [...] procedures. Performed By: #### I GN #### [facility] [address] [place], [place] Ethanol [Mass/Vol] Negative [facility] Comment on above: Performed By: #### I GN #### [place] [address] [address] [place], [place] Opiates Ql (U) Negative [facility] Comment on above: Performed By: #### I GN #### [place] [address] [place], [place] Oxycodone Negative [facility] Comment on above: Performed By: #### I GN #### [place] [address] [place], [place] THC Negative [facility] Comment on above: Performed By: #### I GN #### [place] [address] [place], [place] Metabolic Panelon 06-16-2019 Sodium [Moles/Vol] Negative [facility], [place] Buprenorphine Screenon 06-08 Buprenorphine Screen Negative [facility] Comment on above: Result Comment: Bupr enorphine (Suboxone) has been screened for by immunoassay at 5 ng/mL threshold. The screening assay provides only a preliminary test result. A more specific alternative method must be used to confirm preliminary positive results. Performed By: #### F ENTU, BUPR, IGN #### [place] [address] [place], [place] Fentanyl Screen, Urineon Fentanyl Screen, Urn Negative Normal [facility] Comment on above: Result Comment: Fent anyl has been screened for by Immunoassay at a 2ng/ml threshold. POSITIVE results are not confirmed by a more specific alternative method unless requested. If confirmation is needed, request confirmation under separate order. NOTE: These results are for medical treatment only. Analysis performed using non-forensic procedures. Performed By: #### F ENTU, BUPR, IGN #### [place] [address] [address] [place], [place] [facility] 2018 Amphetamines Ql (U) Negative [facility] Comment on above: Performed By: #### F ENTU, BUPR, IGN #### [place] [address] [place] Barbiturates Negative [facility] Comment on above: Performed By: #### F ENTU, BUPR, IGN #### [place] [address] [address] [place] Benzodiazepines Ql (U) Negative [facility] Comment on above: Performed By: #### F ENTU, BUPR, IGN #### [place] [address] [place] Cocaine Metabolites Negative [facility] Comment on above: Performed By: #### F ENTU, BUPR, IGN #### [place] [address] [place], [place] Comment [facility] Comment on above: Result Comment: The [...] By: #### F ENTU, BUPR, IGN #### [place] [address] [place] Ethanol [Mass/Vol] Negative [facility] Comment on above: Performed By: #### F ENTU, BUPR, IGN #### [place] [address] [address] [place] Opiates Ql (U) Negative [facility] Comment on above: Performed By: #### F ENTU, BUPR, IGN #### [place] [address] [place], [place] Oxycodone Negative [facility] Comment on above: Performed By: #### F ENTU, BUPR, IGN #### [place] [address] [place], [place] THC Negative [facility] Comment on above: Performed By: #### F ENTU, BUPR, IGN #### [place] [address] [place], [place] Cardiacon 06-01-2019 Cholesterol [Mass/Vol] 195 mg/dL <200 [facility] [employer] Cholesterol in HDL [Mass/Vol] 26 mg/dL Low 40 - 60 mg/dL [facility] [employer] [place], [place] Cholesterol in LDL [Mass/Vol] 129 mg/dL Abnormal <100 [facility] [employer] Triglyceride [Mass/Vol] 199 mg/dL Abnormal <150 [facility] [employer] Metabolic Panelon 06-01-2019 HbA1c (Bld) [Mass fraction] 5.8 % High 4 - 5.7 % [facility] [employer] [place] Comment on above: --HgbA1C levels may not be accurate in patients who have renal disease, received recent blood transfusions, are anemic, or who have dyshemoglobinemia. Otheron 06-01-2019 eAG 120 mg/dL [facility] [employer], [employer] Interpretation and review of laboratory results Abnormal [facility] [employer] Test Performed by [facility], [address] [place] [address] [facility] Test Performed by [facility], [address] [place] [address] [facility] Cholesterol.total/Cho lesterol in HDL [Mass ratio] 8 {ratio} [place] Comment on above: Ref Range: < 3 Low Risk for CHD 3-6 Mod Risk for CHD > 6 High Risk for CHD Ref Range: < 3 Low Risk for CHD 3-6 Mod Risk for CHD > 6 High Risk for CHD Interpretation and review of laboratory results Abnormal [place] Test Performed by [facility], [address] [place] [address] [facility] Test Performed by [facility], 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 : 1985 Requested By: Order Number: [id number] Reading MD: Rubio Gonzalez Measurements Intervals [place] Rate: 101 P: 72 AK: 160 QRS: 1 QRSD: 86 T: 29 QT: 353 QTc: 458 Interpretive Statements Sinus tachycardia Electronically Signed On 05-30-2019 17:49:59 EDT by Rubio [employer] [place] [employer] [facility] Test Date: 2019-05-28 Pat Name: Dane Acevesis Department: [facility] Room: 36 Gender: F 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: DP : 1985 Requested By: Order Number: [id number] Reading MD: Rubio Gonzalez Measurements Intervals [place] Rate: 101 P: 72 AK: 160 QRS: 1 QRSD: 86 T: 29 QT: 353 QTc: 458 Interpretive Statements Sinus tachycardia Electronically Signed On 05-30-2019 17:49:59 EDT by [facility] Test Date: 2019-05-28 Pat Name: Dane Hayden Department: [facility] Room: 36 Gender: F 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 : 1985 Requested By: Order Number: [id number] Reading MD: Rubio Gonzalez Measurements Intervals [place] Rate: 101 P: 72 AK: 160 QRS: 1 QRSD: 86 T: 29 QT: 353 QTc: 458 Interpretive Statements Sinus tachycardia Electronically Signed On 05-30-2019 17:49:59 EDT by Rubio Gonzalez [place] Hematologyon 05-28-2019 Basophils/100 WBC (Bld) 0.8 % 0 - 2 % [place] Eosinophils (Bld) [#/Vol] 0.2 10*3/uL 0 - 0.5 10*3/uL [place] Eosinophils/100 WBC (Bld) 2.1 % 1 - 6 % [place] Hematocrit (Bld) [Volume fraction] 37.3 % 35 - 47 % [place] Hemoglobin (Bld) [Mass/Vol] 12.7 g/dL 11.7 - 16 g/dL [place] Lymphocytes (Bld) [#/Vol] 3.3 10*3/uL 1 - 4.3 10*3/uL [place] Lymphocytes/100 WBC (Bld) 31.8 % 20 - 40 % [place] MCH (RBC) [Entitic mass] 32.2 pg 26 - 34 pg [place] MCV (RBC) [Entitic vol] 94.7 fL 79 - 98 fL [place] Monocytes (Bld) [#/Vol] 1.2 10*3/uL High 0 - 0.8 10*3/uL [place] Monocytes/100 WBC (Bld) 11.6 % High 2 - 10 % [place] Platelets (Bld) [#/Vol] 359 10*3/uL 140 - 440 10*3/uL [place] RBC (Bld) [#/Vol] 3.94 10*6/uL 3.8 - 5.2 10*6/uL [place] WBC (Bld) [#/Vol] 10.3 10*3/uL 3.6 - 10.7 10*3/uL [place] Metabolic Panelon 05-28-2019 Sodium [Moles/Vol] Accepted [place] Comment on above: Specimen available & acceptable for analysis. Albumin [Mass/Vol] 4.3 g/dL 3.5 - 5 g/dL [place] ALP [Catalytic activity/Vol] 49 U/L 38 - 126 U/L [place] ALT [Catalytic activity/Vol] 13 U/L 13 - 69 U/L [place] Anion gap [Moles/Vol] 10 mmol/L [place] AST [Catalytic activity/Vol] 23 U/L 15 - 46 U/L [place] Calcium [Mass/Vol] 9.8 mg/dL 8.4 - 10. 4 mg/dL [place] Chloride [Moles/Vol] 107 mmol/L 98 - 10 7 mmol/L [place] CO2 [Moles/Vol] 26 mmol/L 22 - 30 mmol/L [place] Creatinine [Mass/Vol] 0.71 mg/dL 0.52 - 1.25 mg/dL [place] GFR/1.73 sq M predicted among blacks MDRD (S/P/Bld) [Vol rate/Area] mL/min/{1.73_m2} >60 mL/min [place] Glucose [Mass/Vol] 81 mg/dL 70 - 100 mg/dL [place] Potassium [Moles/Vol] 3.4 mmol/L Low 3.5 - 5.1 mmol/L [place] Protein [Mass/Vol] 7.5 g/dL 6.3 - 8.2 g/dL [place] Sodium [Moles/Vol] 142 mmol/L 135 - 145 mmol/L [place] Urea nitrogen [Mass/Vol] 9 mg/dL 7 - 20 mg/dL [place] Otheron 05-28-2019 Amphetamines, urine Negative [place] Barbiturates, Ur Negative [place] Benzodiazepine Ur Qual Negative [place] Cocaine Metabolites, Ur Negative [facility] [place], [place] Methadone, Urine Negative [facility] Opiates, Urine Negative [facility] Oxycodone Screen, Ur Negative [facility] PCP, Urine Negative [facility] Comment on above: The expected value [...] separate order. Test Performed by [facility], [address] [place] [address], [place] Test Performed by [address], [place] Interpretation and review of laboratory results Abnormal [facility], [place] Total CK 219 U/L High 30 - 170 U/L [facility] [place], [place] Test Performed by [facility], [address] [place] [address] [place], [place] Test Performed by [address], [place] Salicylate Lvl <1.0 0 - 20 mg/dL [facility] [place], [place] Test Performed by [facility], [address] [place] [address] Health- [place] Test Performed by [facility], [address] [place] [address]- [place] Test Performed by [facility], [address] [place] [address] [place] Test Performed by [address], [place] Acetaminophen [Mass/Vol] <10.0 10 - 30 ug/mL [place] Bilirubin Ql (U) 0.4 mg/dL 0.2 - 1.3 mg/dL [place] EGFR IF NonAfrican Albanian >60.0 >60 mL/min [place] Comment on above: Source- MDRD equatio n with creatinine calibration to IDMS(NKDEP) eGFR not recommended for drug dose adjustment Ethanol Lvl <0.010 0 - 0.01 g/dL [place] Comment on above: NOTE: This result is for medical treatment only. Analysis performed using non-forensic procedures. Interpretation and review of laboratory results Abnormal [place] Test Performed by [address] Test Performed by [address] Test Performed by [place] [address] Test Performed by [place] [address] Bilirubin Urine Negative mg/dL [place] Comment on above: Reference Range: Neg ative Glucose, Ur Normal mg/dL [place] Comment on above: Reference Range: Nor mal (<70) LEUKOCYTES, UA Negative Brionna/uL [place] Comment on above: Reference Range: Neg ative Nitrite, Urine Negative [place] Comment on above: Reference Range: Neg ative Occult Blood,Urine Negative mg/dL [place] Comment on above: Reference Range: Neg ative pH (U) 8.0 [pH] [place] Specific Carm[place]aels, Urine 1.008 [place] Urobilinogen, Urine Normal mg/dL [place] Comment on above: Reference Range: Nor mal (0-1) Test Performed by [facility], [facility] [address] Test Performed by [place] [address] Absolute Baso # 0.1 10*3/uL 0 - 0.2 10*3/uL [place] Absolute Neut # 5.5 10*3/uL 1.8 - 7 10*3/uL [place] Erythrocyte distribution width (RBC) [Ratio] 13.2 % 11.5 - 14.5 % [place] Granulocytes/100 WBC (Bld) 53.7 % 40 - 80 % [place] Interpretation and review of laboratory results Abnormal [place] MCHC (RBC) [Mass/Vol] 34.0 % 32 - 36 % [place] Platelet mean volume (Bld) [Entitic vol] 7.5 fL 7.4 - 10.4 fL [place] Test Performed by [address] Test Performed by [place] [address] Urinalysison 05-28-2019 Beta HCG ( test) Ql (U) Negative Negative NA [place] Comment on above: is the mos t common reason for HCG in urine, although choriocarcinoma, hydatidiform mole, and certain nontropho- blastic malignancies also result in detectable urinary HCG levels. Sensitivity = 20mIU/mL. Appearance (U) Turbid [place] Comment on above: Reference Range: Vinicius ar Color (U) Light-Yellow [place] Comment on above: Reference Range: Lt. Yellow Ketones Ql (U) Negative mg/dL [place] Comment on above: Reference Range: Neg ative Protein (U) [Mass/Vol] Negative mg/dL [place] Comment on above: Reference Range: Neg ative [facility] 2018 Amphetamines Ql (U) Positive Normal [facility] Comment on above: Performed By: #### I GN #### [place] [address] [place] [address] THC Positive Normal [facility] Comment on above: Performed By: #### I GN #### [facility] [address] [place], [place] Barbiturates Negative [facility] Comment on above: Performed By: #### I GN #### [facility] [address] [place], [place] Benzodiazepines Ql (U) Negative [facility] Comment on above: Performed By: #### I GN #### [facility] [address] [place], [place] Cocaine Metabolites Negative [facility] Comment on above: Performed By: #### I GN #### [facility] [address] [place], [place] Comment Normal [facility] Comment on above: Result Comment: The [...] procedures. Performed By: #### I GN #### [facility] [address] [place], [place] Ethanol [Mass/Vol] Negative [facility] Comment on above: Performed By: #### I GN #### [facility] [address] [place], [place] Opiates Ql (U) Negative [facility] Comment on above: Performed By: #### I GN #### [facility] [address] [place], [place] Oxycodone Negative [facility] Comment on above: Performed By: #### I GN #### [facility] [address] [place] Metabolic Panelon 05-26-2019 Sodium [Moles/Vol] Positive [facility] [place], [place] Sodium [Moles/Vol] [place] Comment on above: The following drugs [...] performed using non-forensic procedures. Sodium [Moles/Vol] Negative [place] Otheron 05-26-2019 Test Performed by [place] [address] [place] [address] [place] Urinalysison 05-26-2019 Amphetamines Ql (U) Positive [facility], [place] Benzodiazepines Ql (U) Negative [place] Cocaine Ql (U) Negative [facility], [place] Opiates Ql (U) Negative [place] [facility] 2018 Amphetamines Ql (U) Positive [facility] Comment on above: Performed By: #### I GN #### [place] [address] [address] [place] THC Positive [facility] Comment on above: Performed By: #### I GN #### [place] [address] [facility] [facility] [place] [facility] 2018 Barbiturates Negative [facility] Comment on above: Performed By: #### I GN #### [place] [address] [address] [facility] [place] Benzodiazepines Ql (U) Negative [facility] Comment on above: Performed By: #### I GN #### [place] [address] [address] [facility] [place] Cocaine Metabolites Negative [facility] Comment on above: Performed By: #### I GN #### [place] [address] [place], [place] Comment [facility] Comment on above: Result Comment: The [...] procedures. Performed By: #### I GN #### [place] [address] [address] [place] Ethanol [Mass/Vol] Negative [facility] Comment on above: Performed By: #### I GN #### [place] [address] [address] [place] Opiates Ql (U) Negative [facility] Comment on above: Performed By: #### I GN #### [place] [address] [address] [place] Oxycodone Negative [facility] Comment on above: Performed By: #### I GN #### [place] [address] [place] [facility] 2018 Amphetamines Ql (U) Positive [facility] Comment on above: Performed By: #### I GN #### [place] [address] [place] THC Positive [facility] Comment on above: Performed By: #### I GN #### [place] [address] [place] Amphetamines Ql (U) Positive [facility] [place] Benzodiazepines Ql (U) Negative [facility] [place] Cocaine Ql (U) Negative [facility] [place] Opiates Ql (U) Negative [facility] Sodium [Moles/Vol] Positive [facility] [place] Sodium [Moles/Vol] [facility] [place] Comment on above: The following drugs [...] non-forensic procedures. Test Performed by [facility], [address] [place] [address] [facility], [place] Barbiturates Negative [facility] Comment on above: Performed By: #### I GN #### [address] Benzodiazepines Ql (U) Negative [facility] Comment on above: Performed By: #### I GN #### [address] Cocaine Metabolites Negative [facility] Comment on above: Performed By: #### I GN #### [place] [address] [place] Comment [facility] Comment on above: Result Comment: The [...] procedures. Performed By: #### I GN #### [address] [place] Ethanol [Mass/Vol] Negative [facility] Comment on above: Performed By: #### I GN #### [place] [address] [address] [place] Opiates Ql (U) Negative Normal [facility] Comment on above: Performed By: #### I GN #### [facility] [address] [place], [place] Oxycodone Negative Normal [facility] Comment on above: Performed By: #### I GN #### [facility] [address] [place], [place] Metabolic Panelon 05-07-2019 Sodium [Moles/Vol] Negative [facility], [place] Wet Prepon 06-07-2017 Wet Prep SOURCE: Vag (Few Whi te Blood Cells No clue cells No Yeast No Trichomonas vaginalis) Normal [facility] Chlam Amp RNAon 06-06-2017 Chlam Amp RNA Negative Normal Negative [facility] Comment on above: Result Comment: Holo gic? [...] Performance characteristics for this assay on specific [id number] sample types (female urine) have been validated by [facility]. Performance has not been evaluated for patients less than 14 years of age. Results should be interpreted in conjunction with other clinical information. GC AMP RNAon 06-06-2017 GC Amp RNA Negative Normal Negative [facility] RUMon 06-06-2017 Bilirubin (total) Negative Normal Negative [facility] Comment on above: Result Comment: Nega tive Blood Negative Normal Negative [facility] Comment on above: Result Comment: Nega tive Erythrocytes (RBC) 0-2 Normal 0-2 [facility] Comment on above: Result Comment: 0-2 Glucose mass conc Negative Normal Negative [facility] Comment on above: Result Comment: Nega tive Leukocyte Marcia Negative Normal Negative [facility] Comment on above: Result Comment: Nega tive Protein Trace Abnormal Negative [facility] Comment on above: Result Comment: Trac e Squamous Epith FEW Normal FEW [facility] Comment on above: Result Comment: FEW Ur Appearance SL Cloudy Normal Clear [facility] Comment on above: Result Comment: SL C loudy Urine Spec Carmichaels >=1.030 Normal 1.001-1.03 [place] [facility] Comment on above: Result Comment: >=1. 030 Urine, color Yellow Normal Yellow [facility] Comment on above: Result Comment: [place] ow Urine, ketones presence Negative Normal Negative [facility] Comment on above: Result Comment: Nega tive Urine, nitrite presence Negative Normal Negative [facility] Comment on above: Result Comment: Nega tive Urine, pH 6.0 [pH] Normal 4.8 - 8.0 [facility] Comment on above: Result Comment: 6.0 Urine, urobilinogen 0.2 {Sonia'U}/dL Normal <1.0 [facility] Comment on above: Result Comment: 0.2 WBC (Leukocytes) 2-5 Normal 0-5 [facility] Comment on above: Result Comment: 2-5 Auto Diffon 04-19-2017 Basophils/100 WBC Auto (Bld) 0.1 x10E9/L Normal 0.0-0.2 [facility] Basophils/100 WBC Auto (Bld) 0.5 % Normal 0.0-2.4 [facility] Eosinophils 0.3 10*3/uL Normal 0.0-0.5 [facility] Eosinophils/100 leukocytes 2.3 % Normal 0.7-6.5 [facility] Lymphocytes 5.5 10*3/uL High 1.1-3.5 [facility] Lymphocytes/100 leukocytes 44.4 % High 17.0-44.0 [facility] Monocytes 0.8 10*3/uL Normal 0.3-1.0 [facility] Monocytes/100 leukocytes 6.3 % Normal 5.3-12.5 [facility] Neutrophils 5.7 10*3/uL Normal 1.8-7.5 [facility] Neutrophils/100 WBC Auto (Bld) 46.5 % Normal 41.0-73.8 [facility] BMPon 04-19-2017 Anion gap 9.0 mmol/L Normal 5.0-19.0 [facility] Bun/CretRatio 16.4 Normal [facility] Calcium 9.9 mg/dL Normal 8.1-10.1 [facility] Chloride 105 mmol/L Normal 98-107 [facility] CO2 25 mmol/L Normal 22-32 [facility] Creatinine 0.55 mg/dL Low 0.60-1.30 [facility] Glucose mass conc 97 mg/dL Normal 70-100 [facility] Osmolality-Calc 276 mOsm/kg Normal [facility] Potassium molar conc 3.7 mmol/L Normal 3.4-5.1 [facility] Sodium 139 mmol/L Normal 136-144 [facility] Urea nitrogen 9 mg/dL Normal 8-26 [facility] RUMon 04-19-2017 Bilirubin (total) Negative Normal Negative [facility] Blood Negative Normal Negative [facility] Ca Oxal Elana Few Abnormal [facility] Glucose mass conc Negative Normal Negative [facility] Leukocyte Marcia Negative Normal Negative [facility] Protein Negative Normal Negative [facility] Squamous Epith FEW Normal FEW [facility] Ur Appearance Clear Normal Clear [facility] Urine Spec Carmichaels >=1.030 Normal 1.001-1.03 [facility] Urine, bacteria in sediment 1+ POS Abnormal Negative [facility] Urine, color Yellow Normal Yellow [facility] Urine, ketones presence Trace Abnormal Negative [facility] Urine, nitrite presence Negative Normal Negative [facility] Urine, pH 6.0 [pH] Normal 4.8 - 8.0 [facility] Urine, urobilinogen 0.2 {Sonia'U}/dL Normal <1.0 [facility] U Pregon 04-19-2017 HCG.beta subunit ( test) Ql (U) Negative Normal Negative [facility] Comment on above: Result Comment: Poin t of Care testing performed by nursing. zCBCDon 04-19-2017 Erythrocyte distribution width Auto Ratio (RBC) 12.9 % Normal 11.4-16.0 [facility] Erythrocytes (RBC) 4.18 x10E12/L Normal 3.78-5.45 [facility] Hematocrit (HCT) 39.1 % Normal 34.7-44.9 [facility] Hemoglobin mass conc (Bld) 12.9 g/dL Normal 11.3-15.6 [facility] MCH 31.0 pg Normal 26.5-33.0 [facility] MCHC mass conc (RBC) 33.1 g/dL Normal 32.6-36.0 [facility] MCV 93.6 fL Normal 80.0-100.0 [facility] Mean Plt Vol 7.4 fL Normal 7.2-10.3 [facility] Platelets 325 10*3/uL Normal 144-400 [facility] WBC (Leukocytes) 12.3 10*3/uL High 3.5-11.5 Ana Maria on [facility] IUD INSERTION [facility] Vital Signs Date Time Vital Sign Value Performing Clinician Facility 03-22-2025 13:25-0400 Body mass index (BMI) [Ratio] 27.84 kg/m2 Hui Podlogar ELECTRONIC EQUIPMENT MAINT TECH.CELL 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: [facility] 03-22-2025 13:25-0400 Body weight 73.57 kg Hui Podlogar ELECTRONIC EQUIPMENT MAINT TECH.CELL 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: [facility] 03-22-2025 13:25-0400 Diastolic blood pressure 82 mm[Hg] Hui Podlogar ELECTRONIC EQUIPMENT MAINT TECH.CELL 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: [facility] 03-22-2025 13:25-0400 Heart rate 89 /min Hui Podlogar ELECTRONIC EQUIPMENT MAINT TECH.CELL 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: [facility] 03-22-2025 13:25-0400 Respiratory rate 16 /min Hui Podlogar ELECTRONIC EQUIPMENT MAINT TECH.CELL 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: [facility] 03-22-2025 13:25-0400 SaO2% (BldA) [Mass fraction] 98 % Hui Podlogar ELECTRONIC EQUIPMENT MAINT TECH.CELL 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: [facility] 03-22-2025 13:25-0400 Systolic blood pressure 142 mm[Hg] Hui Podlogar ELECTRONIC EQUIPMENT MAINT TECH.CELL 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: [facility] 02-24-2025 10:56-0400 Body temperature 98.5 [degF] Dr. Tato Prieto DO Work Phone: [facility] 02-24-2025 10:56-0400 Diastolic blood pressure 88 mm[Hg] Dr. Tato Prieto DO Work Phone: [facility] 02-24-2025 10:56-0400 Heart rate 69 /min Dr. Tato Prieto DO Work Phone: [facility] 02-24-2025 10:56-0400 Respiratory rate 18 /min Dr. Tato Prieto DO Work Phone: 9(802)237-706908 [place] [address] 02-24-2025 10:56-0400 SaO2% (BldA) [Mass fraction] 97 % Dr. Tato Prieto DO Work Phone: 7(403)104-977408 [place] [address] 02-24-2025 10:56-0400 Systolic blood pressure 128 mm[Hg] Dr. Tato Prieto DO Work Phone: 1(023)411-998908 [place] [address] 02-23-2025 11:16-0400 Body height 162.[address] Tato Prieto DO Work Phone: 5(402)877-097006 [place] [address] 02-23-2025 11:16-0400 Body mass index (BMI) [Ratio] 28.3 kg/m2 Dr. Tato Prieto DO Work Phone: 2(355)147-604206 [place] [address] 02-23-2025 11:16-0400 Body weight 75.[address] Tato Prieto DO Work Phone: 4(863)616-998806 [place] [address] 02-22-2025 04:06-0400 Body temperature 98.6 [degF] Dr. Tato Prieto DO Work Phone: 9(455)611-605108 [place] [address] 02-22-2025 04:06-0400 Diastolic blood pressure 92 mm[Hg] Dr. Tato Prieto DO Work Phone: 6(128)312-640208 [place] [address] 02-22-2025 04:06-0400 Heart rate 82 /min Dr. Tato Prieto DO Work Phone: 7(050)604-999908 [place] [address] 02-22-2025 04:06-0400 Respiratory rate 16 /min Dr. Tato Prieto DO Work Phone: 8(523)355-438308 [place] [address] 02-22-2025 04:06-0400 SaO2% (BldA) [Mass fraction] 100 % Dr. Tato Prieto DO Work Phone: 2(418)333-938108 [place] [address] 02-22-2025 04:06-0400 Systolic blood pressure 155 mm[Hg] Dr. Tato Prieto DO Work Phone: 3(592)186-694008 [place] [address] 02-21-2025 23:30-0400 Body height 162.[address] Tato Prieto DO Work Phone: 3(966)649-435906 [place] [address] 02-21-2025 23:30-0400 Body mass index (BMI) [Ratio] 28.7 kg/m2 Dr. Tato Prieto DO Work Phone: 3(049)221-431606 [place] [address] 02-21-2025 23:30-0400 Body weight 75.[address] Tato Prieto DO Work Phone: 9(493)087-440806 [place] [address] 02-21-2025 15:59-0400 Body temperature 98.7 [degF] Dr. Tato Prieto DO Work Phone: 2(728)546-145506 [place] [address] 02-21-2025 15:59-0400 Diastolic blood pressure 84 mm[Hg] Dr. Tato Prieto DO Work Phone: 8(283)356-620606 [place] [address] 02-21-2025 15:59-0400 Heart rate 73 /min Dr. Tato Prieto DO Work Phone: 1(664)382-278306 [place] [address] 02-21-2025 15:59-0400 Respiratory rate 16 /min Dr. Tato Prieto DO Work Phone: 2(680)154-497506 [place] [address] 02-21-2025 15:59-0400 SaO2% (BldA) [Mass fraction] 100 % Dr. Tato Prieto DO Work Phone: 9(965)309-185406 [place] [address] 02-21-2025 15:59-0400 Systolic blood pressure 133 mm[Hg] Dr. Tato Prieto DO Work Phone: 1(365)518-393506 [place] [address] 02-21-2025 13:19-0400 Body height 162.[address] Tato Prieto DO Work Phone: 8(987)473-730206 [place] [address] 02-21-2025 13:19-0400 Body mass index (BMI) [Ratio] 28.1 kg/m2 Dr. Tato Prieto DO Work Phone: 0(135)778-166206 [place] [address] 02-21-2025 13:19-0400 Body weight 74.[address] Tato Prieto DO Work Phone: 3(825)241-562306 [place] [address] 02-14-2025 18:00-0400 Body temperature 97.9 [degF] Dr. Tato Prieto DO Work Phone: 4(182)548-378506 [place] [address] 02-14-2025 18:00-0400 Diastolic blood pressure 82 mm[Hg] Dr. Tato Prieto DO Work Phone: 8(552)170-686006 [place] [address] 02-14-2025 18:00-0400 Heart rate 75 /min Dr. Tato Prieto DO Work Phone: 8(975)352-930406 [place] [address] 02-14-2025 18:00-0400 Respiratory rate 16 /min Dr. Tato Prieto DO Work Phone: 0(419)789-666106 [place] [address] 02-14-2025 18:00-0400 SaO2% (BldA) [Mass fraction] 100 % Dr. Tato Prieto DO Work Phone: 1(553)076-106306 [place] [address] 02-14-2025 18:00-0400 Systolic blood pressure 126 mm[Hg] Dr. Tato Prieto DO Work Phone: 0(139)764-198706 [place] [address] 02-14-2025 15:55-0400 Inhaled oxygen flow rate 8 L/min Dr. Tato Prieto DO Work Phone: 0(325)556-519706 [place] [address] 02-14-2025 13:25-0400 Body height 162.[address] Tato Prieto DO Work Phone: 9(629)511-682506 [place] [address] 02-14-2025 13:25-0400 Body mass index (BMI) [Ratio] 27.6 kg/m2 Dr. Tato Prieto DO Work Phone: 8(219)677-832806 [place] [address] 02-14-2025 13:25-0400 Body weight [address] Tato Prieto DO Work Phone: 7(255)980-852506 [place] [address] 02-02-2025 13:06-0400 Body height 162.[address] Tato Prieto DO Work Phone: 2(964)456-118106 [place] [address] 02-02-2025 13:06-0400 Body mass index (BMI) [Ratio] 28.1 kg/m2 Dr. Tato Prieto DO Work Phone: 3(436)465-672808 [place] [address] 02-02-2025 13:06-0400 Body weight 74.[address] Tato Prieto DO Work Phone: 5(052)985-055508 [place] [address] 02-02-2025 13:06-0400 Diastolic blood pressure 79 mm[Hg] Dr. Tato Prieto DO Work Phone: 6(556)180-642208 [place] [address] 02-02-2025 13:06-0400 Heart rate 90 /min Dr. Tato Prieto DO Work Phone: 4(462)459-270608 [place] [address] 02-02-2025 13:06-0400 Respiratory rate 17 /min Dr. Tato Prieto DO Work Phone: 0(712)837-648506 [place] [address] 02-02-2025 13:06-0400 SaO2% (BldA) [Mass fraction] 98 % Dr. Tato Prieto DO Work Phone: 0(538)106-182808 [place] [address] 02-02-2025 13:06-0400 Systolic blood pressure 127 mm[Hg] Dr. Tato Prieto DO Work Phone: 1(802)635-167208 [place] [address] 01-15-2025 21:26-0400 Body temperature 98.7 [degF] Dr. Tato Prieto DO Work Phone: 0(141)245-798308 [place] [address] 01-15-2025 21:26-0400 Diastolic blood pressure 90 mm[Hg] Dr. Tato Prieto DO Work Phone: 5(688)866-041408 [place] [address] 01-15-2025 21:26-0400 Heart rate 75 /min Dr. Tato Prieto DO Work Phone: 6(765)679-146008 [place] [address] 01-15-2025 21:26-0400 Respiratory rate 16 /min Dr. Tato Prieto DO Work Phone: 8(501)991-607808 [place] [address] 01-15-2025 21:26-0400 SaO2% (BldA) [Mass fraction] 100 % Dr. Tato Prieto DO Work Phone: 6(935)399-667208 [place] [address] 01-15-2025 21:26-0400 Systolic blood pressure 131 mm[Hg] Dr. Tato Prieto DO Work Phone: [facility] 01-15-2025 17:48-0400 Body mass index (BMI) [Ratio] 28.8 kg/m2 Dr. Tato Prieto DO Work Phone: [facility] 01-15-2025 17:48-0400 Body weight 76.[address] Tato Prieto DO Work Phone: [facility] 12-31-2024 12:56-0400 Body mass index (BMI) [Ratio] 28.15 kg/m2 Hui Podlogar ELECTRONIC EQUIPMENT MAINT TECH.CELL 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: [facility] 12-31-2024 12:56-0400 Body weight 74.39 kg Hui Podlogar ELECTRONIC EQUIPMENT MAINT TECH.CELL 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: [facility] 12-31-2024 12:56-0400 Diastolic blood pressure 78 mm[Hg] Hui Podlogar ELECTRONIC EQUIPMENT MAINT TECH.CELL 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: [facility] 12-31-2024 12:56-0400 Heart rate 100 /min Hui Podlogar ELECTRONIC EQUIPMENT MAINT TECH.CELL 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: [facility] 12-31-2024 12:56-0400 Respiratory rate 16 /min Hui Podlogar ELECTRONIC EQUIPMENT MAINT TECH.CELL 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: [facility] 12-31-2024 12:56-0400 SaO2% (BldA) [Mass fraction] 97 % Hui Podlogar ELECTRONIC EQUIPMENT MAINT TECH.CELL 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: [facility] 12-31-2024 12:56-0400 Systolic blood pressure 122 mm[Hg] Hui Podlogar ELECTRONIC EQUIPMENT MAINT TECH.CELL 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: [facility] 10-18-2024 10:07-0500 Body height 162.6 cm Temitope Bear ELECTRONIC EQUIPMENT MAINT TECH.CNM Work Phone: [facility] 10-18-2024 10:07-0500 Body mass index (BMI) [Ratio] 28.67 kg/m2 Temitope Bear ELECTRONIC EQUIPMENT MAINT TECH.CNM Work Phone: [facility] 10-18-2024 10:07-0500 Body weight 75.75 kg Temitope Bear ELECTRONIC EQUIPMENT MAINT TECH.CNM Work Phone: [facility] 10-18-2024 10:07-0500 Diastolic blood pressure 74 mm[Hg] Temitope Bear ELECTRONIC EQUIPMENT MAINT TECH.CNM Work Phone: [facility] 10-18-2024 10:07-0500 Systolic blood pressure 126 mm[Hg] Temitope Bear ELECTRONIC EQUIPMENT MAINT TECH.CNM Work Phone: [facility] 07-05-2024 12:58-0400 Body height 160.4 cm Hui Podlogar ELECTRONIC EQUIPMENT MAINT TECH.CELL 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: [facility] 07-05-2024 12:58-0400 Body mass index (BMI) [Ratio] 30.63 kg/m2 Hui Podlogar ELECTRONIC EQUIPMENT MAINT TECH.CELL 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: [facility] 07-05-2024 12:58-0400 Body weight 78.8 kg Hui Podlogar ELECTRONIC EQUIPMENT MAINT TECH.CELL 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: [facility] 07-05-2024 12:58-0400 Diastolic blood pressure 84 mm[Hg] Hui Podlogar ELECTRONIC EQUIPMENT MAINT TECH.CELL 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: [facility] 07-05-2024 12:58-0400 Heart rate 94 /min Hui Podlogar ELECTRONIC EQUIPMENT MAINT TECH.CELL 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: [facility] 07-05-2024 12:58-0400 Respiratory rate 16 /min Hui Podlogar ELECTRONIC EQUIPMENT MAINT TECH.CELL 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: [facility] 07-05-2024 12:58-0400 SaO2% (BldA) [Mass fraction] 98 % Hui Podlogar ELECTRONIC EQUIPMENT MAINT TECH.CELL 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: [facility] 07-05-2024 12:58-0400 Systolic blood pressure 136 mm[Hg] Hui Podlogar ELECTRONIC EQUIPMENT MAINT TECH.CELL 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: [facility] 07-01-2023 10:36-0400 Body height 161.3 cm Ernesto Carlin MD Work Phone: [facility] 07-01-2023 10:36-0400 Body temperature 98.4 [degF] Ernesto Carlin MD Work Phone: [facility] 07-01-2023 10:36-0400 Body weight 87.09 kg Ernesto Carlin MD Work Phone: [facility] 07-01-2023 10:36-0400 Diastolic blood pressure 86 mm[Hg] Ernesto Carlin MD Work Phone: [facility] 07-01-2023 10:36-0400 Heart rate 64 /min Ernesto Carlin MD Work Phone: [facility] 07-01-2023 10:36-0400 Systolic blood pressure 102 mm[Hg] Ernesto Carlin MD Work Phone: [facility] 03-26-2023 13:59-0400 Body height 161.3 cm Jessenia Grace MD Work Phone: [facility] 03-26-2023 13:59-0400 Body weight 89.72 kg Jessenia Grace MD Work Phone: [facility] 03-26-2023 13:59-0400 Diastolic blood pressure 79 mm[Hg] Jessenia Grace MD Work Phone: [facility] 03-26-2023 13:59-0400 Heart rate 77 /min Jessenia Grace MD Work Phone: [facility] 03-26-2023 13:59-0400 Systolic blood pressure 123 mm[Hg] Jessenia Grace MD Work Phone: [facility] 01-17-2023 09:19-0400 Diastolic blood pressure 71 mm[Hg] Jessenia Grace MD Work Phone: [facility] 01-17-2023 09:19-0400 Heart rate 90 /min Jessenia Grace MD Work Phone: [facility] 01-17-2023 09:19-0400 Respiratory rate 17 /min Jessenia Grace MD Work Phone: [facility] 01-17-2023 09:19-0400 SaO2% (BldA) [Mass fraction] 97 % Jessenia Grace MD Work Phone: [facility] 01-17-2023 09:19-0400 Systolic blood pressure 123 mm[Hg] Jessenia Grace MD Work Phone: [facility] 01-17-2023 08:56-0400 Body temperature 97.2 [degF] Jessenia Grace MD Work Phone: [facility] 01-01-2023 14:20-0400 Body height 161.3 cm Jessenia Grace MD Work Phone: [facility] 01-01-2023 14:20-0400 Body weight 93.89 kg Jessenia Grace MD Work Phone: [facility] 01-01-2023 14:20-0400 Diastolic blood pressure 76 mm[Hg] Jessenia Grace MD Work Phone: [facility] 01-01-2023 14:20-0400 Heart rate 80 /min Jessenia Grace MD Work Phone: [facility] 01-01-2023 14:20-0400 Systolic blood pressure 118 mm[Hg] Jessenia Grace MD Work Phone: [facility] 12-10-2022 14:38-0400 Diastolic blood pressure 78 mm[Hg] Ernesto Carlin MD Work Phone: [facility] 12-10-2022 14:38-0400 Systolic blood pressure 130 mm[Hg] Ernesto Carlin MD Work Phone: [facility] 12-10-2022 14:28-0400 Body height 162.6 cm Ernesto Carlin MD Work Phone: [facility] 12-10-2022 14:28-0400 Body temperature 97.3 [degF] Ernesto Carlin MD Work Phone: [facility] 12-10-2022 14:28-0400 Body weight 95.25 kg Ernesto Carlin MD Work Phone: [facility] 12-10-2022 14:28-0400 Heart rate 88 /min Ernesto Carlin MD Work Phone: [facility] 12-10-2022 09:45-0400 Body height 162.6 cm Alysha Speedy ELECTRONIC EQUIPMENT MAINT TECH.CELL 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: [facility] 12-10-2022 09:45-0400 Body weight 95.25 kg Alysha Speedy ELECTRONIC EQUIPMENT MAINT TECH.CELL 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: [facility] 12-10-2022 09:45-0400 Diastolic blood pressure 80 mm[Hg] Alysha Speedy ELECTRONIC EQUIPMENT MAINT TECH.CELL 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: [facility] 12-10-2022 09:45-0400 Systolic blood pressure 114 mm[Hg] Alysha Speedy ELECTRONIC EQUIPMENT MAINT TECH.CELL 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: [facility] 11-01-2022 13:40-0500 Body height 162.6 cm Alysha Speedy ELECTRONIC EQUIPMENT MAINT TECH.CELL 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: [facility] 11-01-2022 13:40-0500 Body weight 97.43 kg Alysha Speedy ELECTRONIC EQUIPMENT MAINT TECH.CELL 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: [facility] 11-01-2022 13:40-0500 Diastolic blood pressure 90 mm[Hg] Alysha Speedy ELECTRONIC EQUIPMENT MAINT TECH.CELL 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: [facility] 11-01-2022 13:40-0500 Systolic blood pressure 152 mm[Hg] Alysha Speedy ELECTRONIC EQUIPMENT MAINT TECH.CELL 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: [facility] 10-23-2022 15:05-0500 Body height 162.6 cm Tricia Rangel MD Work Phone: [facility] 10-23-2022 15:05-0500 Body weight 96.62 kg Tricia Rangel MD Work Phone: [facility] 10-23-2022 15:05-0500 Diastolic blood pressure 82 mm[Hg] Tricia Rangel MD Work Phone: [facility] 10-23-2022 15:05-0500 Systolic blood pressure 141 mm[Hg] Tricia Rangel MD Work Phone: [facility] 10-08-2022 10:52-0500 Body height 162.6 cm Ernesto Carlin MD Work Phone: [facility] 10-08-2022 10:52-0500 Body temperature 97.5 [degF] Ernesto Carlin MD Work Phone: [facility] 10-08-2022 10:52-0500 Body weight 97.98 kg Ernesto Carlin MD Work Phone: [facility] 10-08-2022 10:52-0500 Diastolic blood pressure 88 mm[Hg] Ernesto Carlin MD Work Phone: [facility] 10-08-2022 10:52-0500 Heart rate 80 /min Ernesto Carlin MD Work Phone: [facility] 10-08-2022 10:52-0500 Systolic blood pressure 136 mm[Hg] Ernesto Carlin MD Work Phone: [facility] 09-04-2022 14:42-0500 Body height 162.6 cm Tricia Rangel MD Work Phone: [facility] 09-04-2022 14:42-0500 Body weight 104.78 kg Tricia Rangel MD Work Phone: [facility] 09-04-2022 14:42-0500 Diastolic blood pressure 75 mm[Hg] Tricia Rangel MD Work Phone: [facility] 09-04-2022 14:42-0500 Systolic blood pressure 120 mm[Hg] Tricia Rangel MD Work Phone: [facility] 08-30-2022 14:35-0500 Body height 162.6 cm Tato Browning MD Work Phone: [facility] 08-30-2022 14:35-0500 Body weight 104.42 kg Tato Browning MD Work Phone: [facility] 08-30-2022 14:35-0500 Diastolic blood pressure 76 mm[Hg] Tato Browning MD Work Phone: [facility] 08-30-2022 14:35-0500 Systolic blood pressure 133 mm[Hg] Tato Browning MD Work Phone: [facility] 08-23-2022 14:00-0500 Body height 162.6 cm Tato Browning MD Work Phone: [facility] 08-23-2022 14:00-0500 Body weight 104.33 kg Tato Browning MD Work Phone: [facility] 08-23-2022 14:00-0500 Diastolic blood pressure 89 mm[Hg] Tato Browning MD Work Phone: [facility] 08-23-2022 14:00-0500 Systolic blood pressure 128 mm[Hg] Tato Browning MD Work Phone: [facility] 08-15-2022 14:33-0500 Body height 162.6 cm Tato Browning MD Work Phone: [facility] 08-15-2022 14:33-0500 Body weight 104.01 kg Tato Browning MD Work Phone: [facility] 08-15-2022 14:33-0500 Diastolic blood pressure 72 mm[Hg] Tato Browning MD Work Phone: [facility] 08-15-2022 14:33-0500 Systolic blood pressure 122 mm[Hg] Tato Browning MD Work Phone: [facility] 08-06-2022 13:12-0500 Body height 162.6 cm Yael Del Ciappo ELECTRONIC EQUIPMENT MAINT TECH.CNM Work Phone: [facility] 08-06-2022 13:12-0500 Body weight 105.33 kg Yael Del Ciappo ELECTRONIC EQUIPMENT MAINT TECH.CNM Work Phone: [facility] 08-06-2022 13:12-0500 Diastolic blood pressure 71 mm[Hg] Yael Del Ciappo ELECTRONIC EQUIPMENT MAINT TECH.CNM Work Phone: [facility] 08-06-2022 13:12-0500 Systolic blood pressure 113 mm[Hg] Yael Del Ciappo ELECTRONIC EQUIPMENT MAINT TECH.CNM Work Phone: [facility] 08-02-2022 13:26-0500 Body height 162.6 cm Tato Browning MD Work Phone: [facility] 08-02-2022 13:26-0500 Body weight 105.46 kg Tato Browning MD Work Phone: [facility] 08-02-2022 13:26-0500 Diastolic blood pressure 77 mm[Hg] Tato Browning MD Work Phone: [facility] 08-02-2022 13:26-0500 Systolic blood pressure 123 mm[Hg] Tato Browning MD Work Phone: [facility] 07-19-2022 11:15-0400 Body height 162.6 cm Guanakito Surace PA-C Work Phone: [facility] 07-19-2022 11:15-0400 Body weight 105.69 kg Guanakito Surace PA-C Work Phone: [facility] 07-19-2022 11:15-0400 Diastolic blood pressure 71 mm[Hg] Guanakito Surace PA-C Work Phone: [facility] 07-19-2022 11:15-0400 Systolic blood pressure 113 mm[Hg] Guanakito Surace PA-C Work Phone: [facility] 07-05-2022 10:20-0400 Body height 162.6 cm Guanakito Surace PA-C Work Phone: [facility] 07-05-2022 10:20-0400 Body weight 104.78 kg Guanakito Surace PA-C Work Phone: [facility] 07-05-2022 10:20-0400 Diastolic blood pressure 84 mm[Hg] Guanakito Surace PA-C Work Phone: [facility] 07-05-2022 10:20-0400 Systolic blood pressure 125 mm[Hg] Guanakito Surace PA-C Work Phone: [facility] 06-21-2022 13:15-0400 Body height 162.6 cm Guanakito Surace PA-C Work Phone: [facility] 06-21-2022 13:15-0400 Body weight 104.64 kg Guanakito Surace PA-C Work Phone: [facility] 06-21-2022 13:15-0400 Diastolic blood pressure 69 mm[Hg] Guanakito Surace PA-C Work Phone: [facility] 06-21-2022 13:15-0400 Systolic blood pressure 106 mm[Hg] Guanakito Surace PA-C Work Phone: [facility] 05-10-2022 08:37-0400 Body height 162.6 cm Gaunakito Surace PA-C Work Phone: [facility] 05-10-2022 08:37-0400 Body weight 102.69 kg Guanakito Surace PA-C Work Phone: [facility] 05-10-2022 08:37-0400 Diastolic blood pressure 71 mm[Hg] Guanakito Surace PA-C Work Phone: [facility] 05-10-2022 08:37-0400 Systolic blood pressure 107 mm[Hg] Guanakito Surace PA-C Work Phone: [facility] 05-06-2022 13:44-0400 Body weight 103.06 kg Ernesto Carlin MD Work Phone: [facility] 05-06-2022 13:44-0400 Diastolic blood pressure 72 mm[Hg] Ernesto Carlin MD Work Phone: [facility] 05-06-2022 13:44-0400 Heart rate 95 /min Ernesto Carlin MD Work Phone: [facility] 05-06-2022 13:44-0400 SaO2% (BldA) [Mass fraction] 98 % Ernesto Carlin MD Work Phone: [facility] 05-06-2022 13:44-0400 Systolic blood pressure 120 mm[Hg] Ernesto Carlin MD Work Phone: [facility] 04-05-2022 10:13-0400 Body height 162.6 cm Ernesto Carlin MD Work Phone: [facility] 04-05-2022 10:13-0400 Body temperature 98.8 [degF] Ernesto Carlin MD Work Phone: [facility] 04-05-2022 10:13-0400 Body weight 102.06 kg Ernesto Carlin MD Work Phone: [facility] 04-05-2022 10:13-0400 Diastolic blood pressure 82 mm[Hg] Ernesto Carlin MD Work Phone: [facility] 04-05-2022 10:13-0400 Heart rate 100 /min Ernesto Carlin MD Work Phone: [facility] 04-05-2022 10:13-0400 Systolic blood pressure 110 mm[Hg] Ernesto Carlin MD Work Phone: [facility] 04-05-2022 08:47-0400 Body height 162.6 cm Guanakito Surace PA-C Work Phone: [facility] 04-05-2022 08:47-0400 Body weight 102.06 kg Guanakito Surace PA-C Work Phone: [facility] 04-05-2022 08:47-0400 Diastolic blood pressure 71 mm[Hg] Guanakito Surace PA-C Work Phone: [facility] 04-05-2022 08:47-0400 Systolic blood pressure 116 mm[Hg] Guanakito Surace PA-C Work Phone: [facility] 02-14-2022 14:32-0400 Body height 162.6 cm Tato Browning MD Work Phone: [facility] 02-14-2022 14:32-0400 Body weight 100.83 kg Tato Browning MD Work Phone: [facility] 02-14-2022 14:32-0400 Diastolic blood pressure 87 mm[Hg] Tato Browning MD Work Phone: [facility] 02-14-2022 14:32-0400 Systolic blood pressure 127 mm[Hg] Tato Browning MD Work Phone: [facility] 02-08-2022 10:03-0400 Body height 162.6 cm Ernesto Cariln MD Work Phone: [facility] 02-08-2022 10:03-0400 Body temperature 97.9 [degF] Ernesto Carlin MD Work Phone: [facility] 02-08-2022 10:03-0400 Body weight 101.15 kg Ernesto Carlin MD Work Phone: [facility] 02-08-2022 10:03-0400 Diastolic blood pressure 76 mm[Hg] Ernesto Carlin MD Work Phone: [facility] 02-08-2022 10:03-0400 Heart rate 92 /min Ernesto Carlin MD Work Phone: [facility] 02-08-2022 10:03-0400 Systolic blood pressure 114 mm[Hg] Ernesto Carlin MD Work Phone: [facility] 01-23-2022 10:07-0400 Body height 160.02 cm Ernesto Carlin Work Phone: [facility] Work Phone: 01-23-2022 10:07-0400 Body mass index (BMI) [Ratio] 39.72 kg/m2 Ernesto Carlin Work Phone: [facility] Work Phone: 01-23-2022 10:07-0400 Body surface area Derived from formula 2.03 m2 Ernesto Carlin Work Phone: [facility] Work Phone: 01-23-2022 10:07-0400 Body temperature 98.6 [degF] Ernesto Carlin Work Phone: [facility] Work Phone: 01-23-2022 10:07-0400 Body weight 101.72 kg Ernesto Carlin Work Phone: [facility] Work Phone: 01-23-2022 10:07-0400 Diastolic blood pressure 74 mm[Hg] Ernesto Solorzanol Work Phone: [facility] Work Phone: 01-23-2022 10:07-0400 Heart rate 100 /min Ernesto Solorzanol Work Phone: [facility] Work Phone: 01-23-2022 10:07-0400 SaO2% (BldA) [Mass fraction] 96 % Ernesto Solorzanol Work Phone: [facility] Work Phone: 01-23-2022 10:07-0400 Systolic blood pressure 114 mm[Hg] Ernesto Solorzanol Work Phone: [facility] Work Phone: 01-18-2022 13:52-0400 Body height 162.6 cm Rolan Biats DO Work Phone: [facility] 01-18-2022 13:52-0400 Body weight 101.61 kg Rolan Biats DO Work Phone: [facility] 01-18-2022 13:52-0400 Diastolic blood pressure 83 mm[Hg] Rolan Biats DO Work Phone: [facility] 01-18-2022 13:52-0400 Systolic blood pressure 124 mm[Hg] Rolan Biats DO Work Phone: [facility] 01-08-2022 16:24-0400 Body height 162.6 cm Ernesto Carlin MD Work Phone: [facility] 01-08-2022 16:24-0400 Body temperature 98.91 [degF] Ernesto Carlin MD Work Phone: [facility] 01-08-2022 16:24-0400 Body weight 101.61 kg Ernesto Carlin MD Work Phone: [facility] 01-08-2022 16:24-0400 Diastolic blood pressure 92 mm[Hg] Ernesto Carlin MD Work Phone: [facility] 01-08-2022 16:24-0400 Heart rate 96 /min Ernesto Carlin MD Work Phone: [facility] 01-08-2022 16:24-0400 Systolic blood pressure 136 mm[Hg] Ernesto Carlin MD Work Phone: [facility] 06-19-2021 00:10-0400 Body height 162.6 cm [...] 20 /min Rolan Allen MD Work Phone: [facility] Work Phone: 06-18-2021 23:29-0400 SaO2% (BldA) [Mass fraction] 96 % Rolan Allen MD Work Phone: [facility] Work Phone: 06-18-2021 23:29-0400 Systolic blood pressure 134 mm[Hg] Rolan Allen MD Work Phone: [employer] Work Phone: 12-24-2020 01:29-0400 Body Temperature 98.91 [degF] Kenny Miles [employer] Work Phone: 12-24-2020 01:29-0400 BP Diastolic 82 mm[Hg] Kenny Miles [employer] Work Phone: 12-24-2020 01:29-0400 BP Systolic 117 mm[Hg] Kenny Miles [employer] Work Phone: 12-24-2020 01:29-0400 Pulse (Heart Rate) 81 /min Kenny Miles [employer] Work Phone: 12-24-2020 01:29-0400 Pulse Oximetry 98 % Kenny Evelyn [employer] Work Phone: 12-24-2020 01:29-0400 Respiratory Rate 16 /min Kenny Miles [employer] Work Phone: 12-23-2020 21:40-0400 BMI (Body Mass Index) 36.05 kg/m2 Kenny Miles [employer] Work Phone: 12-23-2020 21:40-0400 Body weight 95.25 kg Kenny Miles [employer] Work Phone: 12-23-2020 21:39-0400 Height 162.6 cm Kenny Miles [employer] Work Phone: 08-16-2020 16:43-0500 BMI (Body Mass Index) 34.16 kg/m2 Desiree Casarez [facility] Work Phone: 08-16-2020 16:43-0500 Body Temperature 97.9 [degF] Desiree Casarez [facility] Work Phone: Comment on above: Method: Temporal 08-16-2020 16:43-0500 Body weight 90.27 kg Desiree Casarez [facility] Work Phone: 08-16-2020 16:43-0500 BP Diastolic 82 mm[Hg] Desiree Casarez [facility] Work Phone: Comment on above: Location: LUE; Position: Sitting 08-16-2020 16:43-0500 BP Systolic 124 mm[Hg] Desiree Casarez [facility] Work Phone: Comment on above: Location: LUE; Position: Sitting 08-16-2020 16:43-0500 BSA (Body Surface Area) 1.95 m2 Desiree Casarez [facility] Work Phone: 08-16-2020 16:43-0500 Height 162.56 cm Desiree Casarez [facility] Work Phone: 08-16-2020 16:43-0500 Pulse (Heart Rate) 85 /min Desiree Casarez [facility] Work Phone: 08-16-2020 16:43-0500 Pulse Oximetry 98 % Desiree Casarez [facility] Work Phone: Comment on above: Source: 08-16-2020 16:43-0500 Respiratory Rate 18 /min Desiree Casarez [facility] Work Phone: 06-04-2019 06:07-0400 Body Temperature 98.01 [degF] Christina Juan Carlos [employer] [place] 06-04-2019 06:07-0400 BP Diastolic 82 mm[Hg] [facility] [place] 06-04-2019 06:07-0400 BP Systolic 114 mm[Hg] Christina [facility] [place] 06-04-2019 06:07-0400 Pulse (Heart Rate) 90 /min Christina [facility] [place] 06-04-2019 06:07-0400 Pulse Oximetry 96 % Christina [facility] [place] 06-04-2019 06:07-0400 Respiratory Rate 18 /min Christina Juan Carlos [employer] [place] 06-02-2019 17:08-0400 BMI (Body Mass Index) 26.61 kg/m2 [facility] [place] 06-02-2019 17:08-0400 Body weight 70.31 kg Christina Rangel [facility] , [place] 06-02-2019 17:08-0400 Height 162.6 cm Christina Rangel [facility] , [place] 05-29-2019 09:56-0400 BMI (Body Mass Index) 26.61 kg/m2 [facility] [place] 05-29-2019 09:56-0400 Body Temperature 97.7 [degF] [facility] [place] 05-29-2019 09:56-0400 Body weight 70.31 kg Mio [facility] [place] 05-29-2019 09:56-0400 BP Diastolic 96 mm[Hg] [facility] [place] 05-29-2019 09:56-0400 BP Systolic 145 mm[Hg] [facility] [place] 05-29-2019 09:56-0400 Height 162.6 cm Mio [facility] , [place] 05-29-2019 09:56-0400 Pulse (Heart Rate) 98 /min Mio Park [facility], [place] 05-29-2019 09:56-0400 Pulse Oximetry 100 % Mio [facility] , [place] 05-29-2019 09:56-0400 Respiratory Rate 16 /min Mio Park [facility], [place] 05-29-2019 05:54-0400 BP Diastolic 98 mm[Hg] [facility] [place] 05-29-2019 05:54-0400 BP Systolic 142 mm[Hg] [facility] , 05-29-2019 05:54-0400 Pulse (Heart Rate) 89 /min [facility] [place] 05-29-2019 05:54-0400 Pulse Oximetry 100 % [facility] , 05-29-2019 05:54-0400 Respiratory Rate 16 /[facility] [place] [place] 05-28-2019 19:04-0400 BMI (Body Mass Index) 25.06 kg/m2 Ese [facility], [place] 05-28-2019 19:04-0400 Body Temperature 98.2 [degF] Ese [facility], [place] 05-28-2019 19:04-0400 Body weight 72.58 kg [facility] , [place] 05-28-2019 17:30-0400 Height 170.2 cm [facility] [place] Encounters Encounter Date Encounter Type Care Provider Facility Start: 07-26-2025 End: 07-26-2025 ambulatory Hui Podlogar OPENER TENDER Facility:[facility] Start: 04-04-2025 End: 04-04-2025 Refill Hui Podlogar ELECTRONIC EQUIPMENT MAINT TECH.CELL 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: [facility] [place] Comment on above: Refill Request Start: 03-28-2025 End: 05-24-2025 ambulatory Hui Podlogar ELECTRONIC EQUIPMENT MAINT TECH.CELL 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: [facility] [place] Comment on above: Medicine Start: 03-28-2025 End: 03-28-2025 Telephone encounter Hui Podlogar ELECTRONIC EQUIPMENT MAINT TECH.CELL 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: [facility] [place] Start: 03-25-2025 End: 03-25-2025 Follow-up encounter Rachel Rey MA [facility] [place] Start: 03-22-2025 End: 03-22-2025 Patient encounter procedure Hui Podlogar ELECTRONIC EQUIPMENT MAINT TECH.CELL 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: [facility] [place] Comment on above: Adult ADHD (Primary Dx) Start: 03-22-2025 End: 03-22-2025 ambulatory HUI PODLOGAR Facility:[facility] Start: 03-14-2025 End: 03-14-2025 Chart abstracting Brenton Edwards [facility] Work Phone: [facility] Start: 03-09-2025 End: 03-09-[address] Desean Rodriguez MD -[facility] Work Phone: Start: 03-09-2025 End: 03-09-[address] Tato Prieto DO Work Phone: [facility] Work Phone: Start: 03-03-2025 Encounter for other preprocedural examination Desean Rodriguez [facility] Start: 02-24-2025 Non-patient / Non-visit Dr. Sofía MARADIAGA -[facility] Start: 02-23-2025 Non-patient / Non-visit Dr. Sofía MARADIAGA [facility] Start: 02-23-2025 End: 02-23-2025 ambulatory Hui Valdes NP Facility:[facility] Start: 02-23-2025 End: 02-23-2025 Non-patient / Non-visit Dr. Meredith Peralta MD -[facility] Work Phone: Start: 02-22-2025 Non-patient / Non-visit Dr. Ashley Garcia MD -[facility] Start: 02-22-2025 ambulatory Jerrell Concepcion lity:[facility] Start: 02-22-2025 End: 02-24-2025 Evaluation and management of inpatient Dr. Jerrell Garcia MD -[facility] Work Phone: Start: 02-21-2025 End: 02-21-2025 Emergency department patient visit Dr. Tato Prieto DO Work Phone: -Emergency Department Work Phone: Start: 02-14-2025 ambulatory Desean Rodriguez Facility :[facility] Start: 02-14-2025 Non-patient / Non-visit Dr. Sofía [facility]ADIAGA -[facility] Start: 02-14-2025 End: 02-14-2025 Admission to same day surgery center Dr. Desean Rodriguez MD -[facility] Start: 02-14-2025 End: 02-14-[address] Tato Prieto DO Work Phone: [facility] Work Phone: Start: 02-02-2025 End: 02-02-[address] Desean Rodriguez MD -[facility] Work Phone: Start: 02-02-2025 End: 02-02-[address] Tato Prieto DO Work Phone: [facility] Work Phone: Start: 01-15-2025 End: 01-15-2025 Emergency department patient visit Dr. Tato Prieto DO -Emergency Department Work Phone: Start: 12-31-2024 End: 12-31-2024 Patient encounter procedure Hui Valdes APRN.CNP Work Phone: [facility] [place] Comment on above: Primary hypertension (Primary Dx); Migraine without aura and without status migrainosus, not intractable; ADHD (attention deficit hyperactivity disorder), combined type; OAB (overactive bladder); Recurrent major depressive disorder, remission status unspecified Start: 12-31-2024 End: 12-31-2024 ambulatory HUI PODLOGYASHIRA Facility:[facility] Start: 12-28-2024 End: 12-29-2024 Telephone encounter Temitope Bear APRN.CNM Work Phone: OB/Gynecology Comment on above: Orders Start: 10-26-2024 End: 12-26-2024 Follow-up encounter Temitope Bear APRN.CNM Work Phone: OB/Gynecology Start: 10-18-2024 End: 10-18-2024 ambulatory TEMITOPE BEAR Facility:[facility] Start: 10-18-2024 End: 10-18-2024 Patient encounter [...] encounter status Temitope Bear APRN.CNM Work Phone: [facility] Start: 10-13-2024 End: 10-14-2024 Get Medical Advice Hui Valdes APRN.CNP Work Phone: [facility] [place] Comment on above: Refill Refill Request Start: 08-13-2024 End: 08-13-2024 Telephone encounter No Pcp ELECTRONIC EQUIPMENT MAINT TECH [facility] Start: 07-27-2024 End: 07-27-2024 ambulatory Hui Podlogar JAZ.TIMBO Work Phone: [facility] [place] Comment on above: Hydrocortisone Start: 07-27-2024 End: 07-27-2024 E-mail encounter from caregiver Hui Valdes APRN.TIMBO Work Phone: [facility] [place] Start: 07-26-2024 End: 07-27-2024 ambulatory Hui Podlogar ELECTRONIC EQUIPMENT MAINT TECH.CELL 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: [facility] [place] Comment on above: Medication Start: 07-08-2024 End: 07-12-2024 ambulatory Hui Podlogar ELECTRONIC EQUIPMENT MAINT TECH.TIMBO Work Phone: [facility] [place] Comment on above: Depression Start: 07-05-2024 End: 07-05-2024 Patient encounter procedure Hui Ortizlogyashira SEBASTIAN.CELL 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: [facility] [place] Comment on above: Encounter for medica [...] 07-05-2024 End: 07-05-2024 Patient encounter status Hui Ortizlogar ELECTRONIC EQUIPMENT MAINT TECH.CELL 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: [facility] Start: 07-05-2024 End: 07-05-2024 ambulatory HUI PODLOGAR Facility:[facility] Start: 07-05-2024 Encounter for genera l adult medical examination without abnormal findings HUI VALDES [facility] Start: 12-30-2023 ambulatory Ernesto Sanchez Work Phone: [facility] Comment on above: Yeast infection Start: 11-07-2023 End: 11-07-2023 ambulatory ERNESTO CARLIN Facility:[facility] Start: 07-01-2023 End: 07-01-2023 Patient encounter procedure Ernesto Carlin MD Work Phone: Family Medicine Comment on above: Routine physical exa mination (Primary Dx); Migraine without aura and without status migrainosus, not intractable; Hyperlipidemia, mixed; Obesity, Class I, BMI 30-34.9; Ventral hernia without obstruction or gangrene; Onychomycosis; External hemorrhoid; Encounter for immunization Start: 07-01-2023 End: 07-01-2023 Physical examination Ernesto Carlin MD Work Phone: [facility] Work Phone: Start: 03-26-2023 End: 03-26-2023 ambulatory ERNESTO CARLIN Facility:[facility] Start: 03-26-2023 End: 03-26-2023 Patient encounter procedure Jessenia Grace MD Work Phone: [facility] Comment on above: Gastroesophageal ref lux disease without esophagitis (Primary Dx); Class 1 obesity with body mass index (BMI) of 34.0 to 34.9 in adult, unspecified obesity type, unspecified whether serious comorbidity present; Ventral hernia without obstruction or gangrene Start: 01-17-2023 Encounter for other preprocedural examination JESSENIA GRACE [facility] Start: 01-17-2023 ambulatory JESSENIA GRACE Facility: [facility] Start: 01-17-2023 End: 07-01-2023 Patient encounter status Jessenia Grace MD Work Phone: [facility] Start: 01-17-2023 End: 01-17-2023 Subsequent hospital visit by physician Jessenia Grace MD Work Phone: [facility] Comment on above: Gastroesophageal ref lux disease, unspecified whether esophagitis present [K21.9] Start: 01-01-2023 End: 01-01-2023 ambulatory ERNESTO CARLIN Facility:[facility] Start: 01-01-2023 End: 01-01-2023 Patient encounter procedure Jessenia Grace MD Work Phone: [facility] Comment on above: Ventral hernia witho ut obstruction or gangrene (Primary Dx); Class 2 severe obesity with serious comorbidity and body mass index (BMI) of 36.0 to 36.9 in adult, unspecified obesity type (HCC); Gastroesophageal reflux disease, unspecified whether esophagitis present; Hypertension, unspecified type Start: 01-01-2023 Telephone encounter Jessenia parmar MD Work Phone: [facility] Comment on above: Appointment (EGD) Start: 12-25-[address] Ernesto Carlin [facility] [id number] Start: 12-10-2022 End: 12-10-2022 Patient encounter procedure Ernesto Carlin MD Work Phone: Family Medicine Comment on above: Hypertension, essent ial (Primary Dx); History of gestational diabetes; Obesity, Class II, BMI 35-39.9; GERD without esophagitis; PUD (peptic ulcer disease); External hemorrhoid Start: 12-10-2022 End: 12-10-2022 Patient encounter procedure Alysha Ruff APRN.CNP Work Phone: [facility] Obstetrics & Gynecology Comment on above: Encounter for routin e checking of intrauterine contraceptive device (IUD) (Primary Dx) Start: 11-07-2022 Patient encounter procedure [facility] Provider [facility] Start: 11-01-2022 End: 11-01-2022 Patient encounter procedure Alysha Ruff APRN.CELL 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: [facility] Obstetrics & Gynecology Comment on above: Encounter for IUD in sertion (Primary Dx); Routine screening for STI (sexually transmitted infection) Start: 10-23-2022 End: 10-23-2022 Patient encounter procedure Tricia Rangel MD Work Phone: [facility] Obstetrics & Gynecology Comment on above: care and examination (Primary Dx); examination or test, unconfirmed Start: 10-22-2022 Telephone encounter [facility] Provider [facility] Comment on above: Returning Patient's Call Start: 10-08-2022 End: 10-08-2022 Patient encounter procedure Ernesto Carlin MD Work Phone: Family Medicine Comment on above: Yeast dermatitis (Pr imary Dx); GERD without esophagitis; Hypertension, essential; Migraine without aura and without status migrainosus, not intractable; PUD (peptic ulcer disease); History of gestational diabetes Start: 10-03-2022 ambulatory Ernesto Carlin M D Work Phone: Family Medicine Comment on above: Thrush Start: 09-19-2022 ambulatory Ernesto Carlin M D Work Phone: Family Medicine Comment on above: Migraine Start: 09-04-2022 End: 09-04-2022 ambulatory Nst [place] Work Phone: [facility] Obstetrics & Gynecology Comment on above: Nst (Non Stress Test ) Start: 09-04-2022 End: 09-04-2022 Patient encounter procedure Nst Cartoon Designer [facility] [employer] Work Phone: [facility] Comment on above: 37 weeks gestation o f (Primary Dx); Preexisting hypertension complicating , antepartum; Diet controlled gestational diabetes mellitus (GDM) in second trimester; 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ng , antepartum, unspecified trimester; Group B Streptococcus carrier, antepartum Start: 08-30-2022 End: 08-30-2022 Patient encounter procedure Tato Browning MD Work Phone: [facility] Obstetrics & Gynecology Comment on above: Preexisting hyperten ling complicating , antepartum (Primary Dx); 36 weeks gestation of ; Gestational diabetes mellitus, class A1; 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ng , antepartum, unspecified trimester Start: 08-30-2022 End: 08-30-2022 Patient encounter procedure Ultrasound Cartoon Designer [facility] [place] Work Phone: [facility] Obstetrics & Gynecology Comment on above: AMA (advanced matern al age) multigravida 35+, third trimester; Obesity complicating , third trimester Start: 08-23-2022 End: 08-23-2022 ambulatory Nst [place] Work Phone: [facility] Obstetrics & Gynecology Comment on above: Nst (Non Stress Test ) Start: 08-23-2022 End: 08-23-2022 Patient encounter procedure Nst Cartoon Designer [facility] [place] Work Phone: [facility] Comment on above: Preexisting hyperten ling complicating , antepartum (Primary Dx); 35 weeks gestation of ; Gestational diabetes mellitus, class A1 Start: 08-22-2022 Refill Guanakito Surac e PA-C Work Phone: [facility] Obstetrics & Gynecology Comment on above: Refill Request Start: 08-16-2022 Refill Guanakito Surac e PA-C Work Phone: [facility] Obstetrics & Gynecology Comment on above: Refill Request Start: 08-15-2022 End: 08-15-2022 ambulatory Nst [place] Work Phone: [facility] Obstetrics & Gynecology Comment on above: Nst (Non Stress Test ) Start: 08-15-2022 End: 08-15-2022 Patient encounter procedure Nst Cartoon Designer [facility] [employer] Work Phone: [facility] Comment on above: Preexisting hyperten ling complicating , antepartum (Primary Dx); 34 weeks gestation of ; Gestational diabetes mellitus, class A1 Start: 08-06-2022 End: 08-06-2022 ambulatory Nst [place] Work Phone: [facility] Obstetrics & Gynecology Comment on above: Nst (Non Stress Test ) Start: 08-06-2022 End: 08-06-2022 Patient encounter procedure Nst Cartoon Designer [facility] [employer] Work Phone: [facility] Comment on above: AMA (advanced matern al age) multigravida 35+, third trimester (Primary Dx); Obesity complicating , third trimester; Gestational diabetes mellitus, class A1; Preexisting hypertension complicating , antepartum; 33 weeks gestation of ; Non-stress test reactive Start: 08-02-2022 End: 08-02-2022 ambulatory Nst [place] Work Phone: [facility] Obstetrics & Gynecology Comment on above: Nst (Non Stress Test ) Start: 08-02-2022 End: 08-02-2022 Patient encounter procedure Nst Cartoon Designer [facility] [place] Work Phone: [facility] Comment on above: Preexisting hyperten ling complicating , antepartum (Primary Dx); 32 weeks gestation of ; GDM (gestational diabetes mellitus), class A1 Start: 07-31-2022 Refill Guanakito Surac e PA-C Work Phone: [facility] Obstetrics & Gynecology Comment on above: Refill Request Start: 07-19-2022 End: 07-19-2022 Patient encounter procedure Guanakito Surace PA-C Work Phone: [facility] Obstetrics & Gynecology Comment on above: Gestational diabetes mellitus, class A1 (Primary Dx); Obesity complicating , third trimester; AMA (advanced maternal age) multigravida 35+, third trimester; Preexisting hypertension complicating , antepartum; 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ng , antepartum, unspecified trimester; 30 weeks gestation of Gestational diabetes mellitus, class A1 Start: 07-18-2022 Refill Guanakito Surac e PA-C Work Phone: [facility] Obstetrics & Gynecology Comment on above: Refill Request Start: 07-05-2022 End: 07-05-2022 Patient encounter procedure Guanakito Surace PA-C Work Phone: [facility] Obstetrics & Gynecology Comment on above: Gestational diabetes mellitus, class A1 (Primary Dx); 28 weeks gestation of ; Need for neiwctbevn-rjxlyqu-cjatkwzxi (Tdap) vaccine; Obesity complicating , third trimester; Constipation, unspecified constipation type; 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ng , antepartum, unspecified trimester; AMA (advanced maternal age) multigravida 35+, third trimester; Preexisting hypertension complicating , antepartum Start: 07-05-2022 End: 07-05-[address] Work Phone: [facility] [place] Comment on above: Diet controlled gest ational diabetes mellitus (GDM) in second trimester (Primary Dx) GDM (gestational mitch betes mellitus), class A1; Diet controlled gestational diabetes mellitus (GDM) in second trimester Start: 07-05-2022 End: 07-05-2022 Telemedicine consultation with patient Nurse Diabetes [facility] Start: 06-28-2022 Refill Guanakito Surac e PA-C Work Phone: [facility] Obstetrics & Gynecology Comment on above: Refill Request Start: 06-28-2022 Telephone encounter Guanakito S urace PA-C Work Phone: [facility] Obstetrics & Gynecology Comment on above: Results Start: 06-25-2022 Telephone encounter Guanakito S urace PA-C Work Phone: [facility] Obstetrics & Gynecology Comment on above: Results Start: 06-21-2022 End: 06-21-2022 Patient encounter procedure Guanakito Surace PA-C Work Phone: [facility] Obstetrics & Gynecology Comment on above: AMA (advanced matern al age) multigravida 35+, second trimester (Primary Dx); 26 weeks gestation of ; 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ng , antepartum, unspecified trimester; Obesity complicating , first trimester; Preexisting hypertension complicating , antepartum; History of drug use Start: 06-19-2022 Refill Guanakito Surac e PA-C Work Phone: [facility] Obstetrics & Gynecology Comment on above: Refill Request Start: 06-10-2022 Refill Ольга montanez APRN.CNP Work Phone: [facility] Obstetrics & Gynecology Comment on above: Refill Request Start: 05-19-2022 Refill Guanakito Surac e PA-C Work Phone: [facility] Obstetrics & Gynecology Comment on above: Refill Request Start: 05-19-2022 Refill Guanakito Surac e PA-C Work Phone: [facility] Obstetrics & Gynecology Comment on above: Refill Request Start: 05-10-2022 End: 05-10-2022 Patient encounter procedure Guanakito Surace PA-C Work Phone: [facility] Obstetrics & Gynecology Comment on above: Preexisting hyperten ling complicating , antepartum (Primary Dx); AMA (advanced maternal age) multigravida 35+, second trimester; Obesity complicating , second trimester; Headache in , second trimester; 20 weeks gestation of Start: 05-07-2022 End: 05-07-2022 Patient encounter procedure Us Rm2 Cartoon Designer [employer] [facility] Work Phone: [facility] Maternal Medicine Comment on above: Obesity complicating , second trimester (Primary Dx); Encounter for anatomic survey; 20 weeks gestation of Start: 05-06-2022 End: 05-06-2022 Patient encounter procedure Ernesto Carlin MD Work Phone: Family Medicine Comment on above: PUD (peptic ulcer di sease) (Primary Dx); GERD without esophagitis; Preexisting hypertension complicating , antepartum Start: 05-02-2022 Refill Ольга montanez APRN.CNP Work Phone: [facility] Obstetrics & Gynecology Comment on above: Refill Request Start: 04-28-2022 ambulatory Ernesto Sanchez Work Phone: Family Medicine Comment on above: Ulcers Start: 04-24-2022 Refill Guanakito Bernabe e PA-C Work Phone: [facility] Obstetrics & Gynecology Comment on above: Refill Request Start: 04-16-2022 ambulatory Ernesto Sanchez Work Phone: Family Medicine Comment on above: Covid Start: 04-05-2022 End: 04-05-2022 Patient encounter procedure Ernesto Carlin MD Work Phone: Family Medicine Comment on above: Hypertension, essent ial (Primary Dx); Preexisting hypertension complicating , antepartum; GERD without esophagitis; Nausea and vomiting of , antepartum; Periumbilical hernia Start: 04-05-2022 End: 04-05-2022 Patient encounter procedure Guanakito Angel PA-C Work Phone: [facility] Obstetrics & Gynecology Comment on above: Multigravida of adva nced maternal age in first trimester (Primary Dx); 15 weeks gestation of ; Nausea/vomiting in ; Preexisting hypertension complicating , antepartum; Obesity complicating , first trimester; History of group B Streptococcus (GBS) infection; 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ng , antepartum, unspecified trimester; Constipation, unspecified constipation type; Vaginal discharge Start: 03-22-2022 Refill Ольга L Klutt s ELECTRONIC EQUIPMENT MAINT TECH.CELL 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: [facility] Obstetrics & Gynecology Comment on above: Refill Request Start: 03-11-2022 Refill Tato Jaffe MD Work Phone: [facility] Obstetrics & Gynecology Comment on above: Refill Request Start: 02-20-2022 ambulatory Ольга L Klutt s ELECTRONIC EQUIPMENT MAINT TECH.CELL 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: [facility] Obstetrics & Gynecology Comment on above: Medication Start: 02-14-2022 End: 02-14-2022 Patient encounter procedure Tato Browning MD Work Phone: [facility] Obstetrics & Gynecology Comment on above: Amenorrhea, secondar y (Primary Dx); Nausea and vomiting during care of mul tigravida, antepartum Start: 02-08-2022 End: 02-08-2022 Patient encounter procedure Ernesto Carlin MD Work Phone: Family Medicine Comment on above: Hypertension, essent ial (Primary Dx); GERD without esophagitis; at early stage; Nausea and vomiting of , antepartum; Migraine without aura and without status migrainosus, not intractable Start: 01-30-2022 Refill Ernesto Sanchez Work Phone: Family Medicine Comment on above: Refill Request Start: 01-23-2022 Office outpatient vi sit 15 minutes Ernesto Carlin Work Phone: [facility] Work Phone: Start: 01-21-2022 Telephone encounter Rolan grigsby DO Work Phone: [facility] Obstetrics and Gynecology Comment on above: Orders; Results Start: 01-18-2022 End: 01-18-2022 Patient encounter procedure Rolan Dexter DO Work Phone: [facility] Obstetrics & Gynecology Comment on above: Women's annual routi ne gynecological examination (Primary Dx); Routine cervical smear; Secondary amenorrhea Start: 01-08-2022 End: 01-08-2022 Patient encounter procedure Ernesto Carlin MD Work Phone: [facility] Comment on above: Hypertension, essent ial (Primary Dx); Bronchitis Start: 01-07-2022 Refill Ernesto Sanchez Work Phone: [facility] Comment on above: Refill Request Start: 06-18-2021 End: 06-19-2021 Emergency department patient visit Rolan Allen MD Work Phone: [facility] Emergency Dept Comment on above: Acute bronchitis, un specified organism (Primary Dx); Acute serous otitis media of left ear, recurrence not specified; Acute diffuse otitis externa of left ear Start: 12-23-2020 End: 12-24-2020 Emergency department patient visit Kenny Miles Work Phone: [facility] Emergency Dept Comment on above: Less than 8 weeks ge station of (Primary Dx); Epigastric pain Start: 08-16-2020 Patient encounter procedure Desiree Casarez [facility] Work Phone: Start: 08-05-2019 End: 08-05-2019 Emergency department patient visit [facility] Start: 08-02-2019 Patient encounter procedure Desiree Casarez [facility] Work Phone: Start: 07-09-2019 End: 07-09-2019 Subsequent hospital visit by physician Kacie Short Work Phone: [facility] Comment on above: Arrived Start: 07-07-2019 End: 07-07-2019 Subsequent hospital visit by physician Kacie Short Work Phone: [facility] Comment on above: Arrived Start: 07-06-2019 End: 07-06-2019 Subsequent hospital visit by physician Kacie Short Work Phone: [facility] Comment on above: Arrived Start: 07-05-2019 End: 07-05-2019 Subsequent hospital visit by physician Kacie Short Work Phone: [facility] [place] [facility] Comment on above: Arrived Start: 07-02-2019 End: 07-02-2019 Subsequent hospital visit by physician Kacie Short Work Phone: [facility] Comment on above: Arrived Start: 06-30-2019 End: 06-30-2019 Subsequent hospital visit by physician Kacie Short Work Phone: [facility] [place] [facility] Comment on above: Arrived Start: 06-28-2019 End: 06-28-2019 Subsequent hospital visit by physician Kacie Short Work Phone: [facility] Comment on above: Arrived Start: 06-25-2019 Subsequent hospital visit by physician Kacie Short Work Phone: [facility] Start: 06-23-2019 Subsequent hospital visit by physician Kacie Short Work Phone: [facility] Start: 06-21-2019 End: 06-21-2019 Subsequent hospital visit by physician Kacie Short Work Phone: [facility] Comment on above: Arrived Start: 06-18-2019 End: 06-18-2019 Subsequent hospital visit by physician Kacie Short Work Phone: [facility] Comment on above: Arrived Start: 06-16-2019 End: 06-16-2019 Subsequent hospital visit by physician Kacie Short Work Phone: [facility] Comment on above: Arrived Start: 06-14-2019 End: 06-14-2019 Subsequent hospital visit by physician Kacie Short Work Phone: [facility] Comment on above: Arrived Start: 06-11-2019 Subsequent hospital visit by physician Kacie Short Work Phone: [facility] Start: 06-09-2019 Subsequent hospital visit by physician Kacie Short Work Phone: [employer] [facility] Start: 06-07-2019 End: 06-07-2019 Subsequent hospital visit by physician Kacie Short Work Phone: [facility] [facility] Comment on above: Arrived Start: 06-04-2019 Subsequent hospital visit by physician Kacie Short Work Phone: [facility] Start: 06-02-2019 Subsequent hospital visit by physician Mihai REINOSO [facility]DI[facility] Start: 05-31-2019 Patient encounter procedure Christina [facility] [place] Start: 05-31-2019 Subsequent hospital visit by physician Mihai [facility] Start: 05-29-2019 Patient encounter procedure Christina [facility], [place] Start: 05-29-2019 End: 05-29-2019 Emergency department patient visit Mio Park Work Phone: [facility] Emergency Dept Comment on above: Altered mental statu s, unspecified altered mental status type (Primary Dx); Substance abuse (HCC); Depression, unspecified depression type Start: 05-28-2019 End: 05-29-2019 Emergency department patient visit Ese Bliss Work Phone: [facility] Emergency Dept Comment on above: Polysubstance abuse (HCC) (Primary Dx); Altered mental status, unspecified altered mental status type Start: 05-28-2019 Subsequent hospital visit by physician aKcie Short Work Phone: [email or web address] [facility] Start: 05-26-2019 End: 05-26-2019 Subsequent hospital visit by physician Kacie Short Work Phone: [employer] [facility] Comment on above: Arrived Start: 05-24-2019 End: 05-24-2019 Subsequent hospital visit by physician Kacie Short Work Phone: [facility] Comment on above: Arrived Start: 05-21-2019 End: 05-21-2019 Subsequent hospital visit by physician Kacie Short Work Phone: [facility] Comment on above: Arrived Start: 05-20-2019 End: 05-20-2019 Subsequent hospital visit by physician Kacie [employer]ra Work Phone: [facility] Comment on above: Arrived Start: 05-14-2019 End: 05-14-2019 Subsequent hospital visit by physician Kacie [facility]ra Work Phone: [facility] Start: 05-10-2019 Subsequent hospital visit by physician Kacie [facility]Ox[employer]ra Work Phone: [facility] Start: 05-07-2019 End: 05-07-2019 Subsequent hospital visit by physician Kacie [employer] Work Phone: [facility] Comment on above: Arrived Start: 04-30-2019 Subsequent hospital visit by physician Kacie [employer] Work Phone: [facility] Start: 04-29-2019 Telephone encounter Mihai REINOSO ADDICTION OP Comment on above: Scheduling Start: 04-28-2019 Subsequent hospital visit by physician Mihai REINOSO ADDICTION OP Start: 04-26-2019 Subsequent hospital visit by physician Kacie [employer]ra Work Phone: [facility] Start: 04-23-2019 End: 04-23-2019 Subsequent hospital visit by physician Kacie Short Work Phone: [facility] Comment on above: Arrived Start: 04-21-2019 Subsequent hospital visit by physician Mihai REINOSO ADDICTION OP Comment on above: Canceled (Other) Start: 03-08-2019 End: 03-08-2019 Evaluation and management of inpatient UNKNOWN AA UNKNOWN PCP [facility] Start: 07-10-2018 End: 12-08-2019 Subsequent hospital visit by physician Zi Leonard Work Phone: [facility] Start: 06-06-2017 End: 06-07-2017 Emergency department patient visit [facility] Start: 04-19-2017 End: 04-19-2017 Emergency department patient visit [facility] Procedures Date Procedure Procedure Detail Performing Clinician Start: 02-23-2025 Biliary tract contrast procedure Dr. Tato Prieto DO Work Phone: Start: 02-23-[address] Tato Prieto DO Work Phone: Start: 02-23-2025 Total cholecystectomy and exploration of common bile duct Dr. Tato Prieto DO Work Phone: Start: 02-22-[address] Tato Prieto DO Work Phone: Start: 02-22-2025 US scan of gallbladder Dr. Tato Prieto DO Work Phone: Start: 02-22-[address] Tato Prieto DO Work Phone: Start: 02-21-2025 Computed tomography of abdomen and pelvis with intravenous contrast Dr. Tato Prieto DO Work Phone: Start: 02-21-2025 Urnls dip stick/tablet reagent auto microscopy Dr. Tato Prieto DO Work Phone: Start: 02-21-[address] Tato Prieto DO Work Phone: Start: 02-14-[address] Tato Prieto D O Work Phone: Start: 01-15-2025 Computed tomography of abdomen and pelvis with intravenous contrast Dr. Tato Prieto DO Work Phone: Start: 01-15-[address] Tato Prieto DO Work Phone: Start: 07-05-2024 Adult depression screening assessment Hui Valdes APRN.CNP Work Phone: Start: 07-01-2023 INFLUENZA VACCINE, AGE 6 MO - 64 YR, QUADRIVALENT (AFLURIA, FLULAVAL, FLUZONE) Ernesto Carlin MD Work Phone: Start: 01-17-2023 Urine test visual color cmprsn meths Tato Lee PA Work Phone: Start: 11-01-2022 Insertion intrauterine device iud Alysha Ruff ELECTRONIC EQUIPMENT MAINT TECH.CELL 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: Start: 08-30-2022 Urnls dip stick/tablet rgnt auto w/o microscopy Tato Browning MD Work Phone: Start: 08-30-2022 Us preg uterus after 1st trimest 09/15 gestation Yael Leslie Mahmood ELECTRONIC EQUIPMENT MAINT TECH.CNM Work Phone: Start: 08-23-2022 Urnls dip stick/tablet rgnt auto w/o microscopy Tato Browning MD Work Phone: Start: 08-06-2022 Urnls dip stick/tablet rgnt auto w/o microscopy [facility] Provider Start: 07-19-2022 Us preg uterus after 1st trimest 09/15 gestation Guanakito Surace PA-C Work Phone: Start: 07-05-2022 Urnls dip stick/tablet rgnt auto w/o microscopy Guanakito Surace PA-C Work Phone: Start: 06-21-2022 Urnls dip stick/tablet rgnt auto w/o microscopy Guanakito Surace PA-C Work Phone: Start: 05-10-2022 Urnls dip stick/tablet rgnt auto w/o microscopy Guanakito Surace PA-C Work Phone: Start: 05-07-2022 Us preg uterus after 1st trimest 09/15 gestation Guanakito Surace PA-C Work Phone: Start: 04-05-2022 Urnls dip stick/tablet rgnt auto w/o microscopy Guanakito Surace PA-C Work Phone: Start: 02-14-2022 Antibody screen Tato Browning MD Work Phone: Start: 06-02-2022 Urnls dip stick/tablet rgnt auto w/o microscopy Tato Browning MD Work Phone: Start: 11-19-2021 Adult depression screening assessment Ernesto Carlin MD Work Phone: Start: 12-23-2020 Us abdominal real time w/image limited Kenny Miles Work Phone: Start: 12-23-2020 Us preg uterus real time w/image dcmtn transvag Reynaldo Mandel Work Phone: Start: 12-23-2020 Assay of lipase Reynaldo Mandel Work Phone: Start: 12-23-2020 Assay of troponin quantitative Reynaldo Mandel Work Phone: Start: 12-23-2020 Basic metabolic panel calcium total Reynaldo Mandel Work Phone: Start: 12-23-2020 Blood count complete auto&auto difrntl wbc Reynaldo Mandel Work Phone: Start: 12-23-2020 Blood typing serologic abo Reynaldo Mandel Work Phone: Start: 12-23-2020 Gonadotropin chorionic quantitative Reynaldo Mandel Work Phone: Start: 12-23-2020 Hepatic function panel Reynaldo Mandel Work Phone: Start: 12-23-2020 Urnls dip stick/tablet rgnt auto w/o microscopy Reynaldo Mandel Work Phone: Start: 12-23-2020 Ecg routine ecg w/least 12 lds w/i&r Reynaldo Mandel Work Phone: Start: 08-16-2020 Follow-up visit Start: 08-03-2019 IGNATIA DRUG SCREEN Zi Sanjuana Leonard Work Phone: Start: 07-05-2019 Drug screening buprenorphine Kacie Short Work Phone: Start: 07-05-2019 Drug tst prsmv instrmnt chem analyzers pr date Kacie Short Work Phone: Start: 07-05-2019 IGNATIA DRUG SCREEN Kacie Short Work Phone: Start: 06-28-2019 Drug screening buprenorphine Kacie Short Work Phone: Start: 06-28-2019 Drug tst prsmv instrmnt chem analyzers pr date Kacie Short Work Phone: Start: 06-28-2019 IGNATIA DRUG SCREEN Kacie Short Work Phone: Start: 06-21-2019 IGNATIA DRUG SCREEN Kacie Short Work Phone: Start: 06-16-2019 IGNATIA DRUG SCREEN Kacie Short Work Phone: Start: 06-07-2019 Drug screening buprenorphine Kacie Short Work Phone: Start: 06-07-2019 Drug tst prsmv instrmnt chem analyzers pr date Kacie Short Work Phone: Start: 06-07-2019 IGNATIA DRUG SCREEN Kacie Short Work Phone: Start: 06-01-2019 Hemoglobin glycosylated a1c [place] Work Phone: Start: 06-01-2019 Lipid panel [place] Work Phone: Start: 05-28-2019 ADD ON LAB TEST Joanne Lorenzana Work Phone: Start: 05-28-2019 Ecg routine ecg w/least 12 lds w/i&r Joanne Lorenzana Work Phone: Start: 05-28-2019 Assay of acetaminophen Joanne Lorenzana Work Phone: Start: 05-28-2019 Assay of ethanol Joanne CavazosMiguel Salomón Work Phone: Start: 05-28-2019 Assay of salicylate Joanne River Salomón Work Phone: Start: 05-28-2019 Blood count complete auto&auto difrntl wbc Joanne CavazosMiguel Salomón Work Phone: Start: 05-28-2019 Comprehensive metabolic panel Joanne A. Salomón Work Phone: Start: 05-28-2019 Creatine kinase total Joanne Lorenzana Work Phone: Start: 05-28-2019 Drug screen class list a Joanne CavazosMiguel Salomón Work Phone: Start: 05-28-2019 Urine test visual color cmprsn meths Joanne CavazosMiguel Salomón Work Phone: Start: 05-28-2019 Urnls dip stick/tablet rgnt auto w/o microscopy Joanne CavazosMiguel Salomón Work Phone: Start: 05-28-2019 PULSE OXIMETRY SPOT CHECK Joanne CavazosMiguel Philip walter Work Phone: Start: 05-26-2019 IGNATIA DRUG SCREEN Kacie Short Work Phone: Start: 05-12-2019 IGNATIA DRUG SCREEN Kacie Short Work Phone: Start: 05-07-2019 IGNATIA DRUG SCREEN Kacie Short Work Phone: Start: 04-14-2019 IGNATIA DRUG SCREEN Zi Leonard Work Phone: History of cholecystectomy S/P cholecyste ctomy Dr. Desean Rodriguez MD Plan of Treatment Date Care Activity Detail Author Start: 2035 Shingles Vaccine (1 of 2) Andersen gles Vaccine (1 of 2) [place] Start: 07-05-2032 Urine microalbumin profile [facility] Start: 06-29-2031 Urine microalbumin profile DTAP,TDAP,TD (3 - Td or Tdap) [facility] Start: 07-07-2028 DTaP/Tdap/Td vaccine (2 - Td or Tdap) DTaP/Tdap/Td vaccine (2 - Td or Tdap) [facility] Work Phone: Start: 07-07-2028 DTaP/Tdap/Td vaccine (2 - Td) DTaP/Tdap/Td vaccine (2 - Td) [place] Start: 10-18-2027 Screening for malign ant neoplasm of cervix Cervical Cancer Screening [facility] Start: 12-31-2025 Annual PCP Team Assembly And Packing Supervisor oneal Disease Visit Annual PCP Team Chronic Disease Visit [facility] Start: 12-31-2025 BP Controlled (<130/80) BP Controlle d (<130/80) [facility] Start: 10-18-2025 BP Controlled (<130/80) BP Controlle d (<130/80) [facility] Start: 10-18-2025 End: 10-18-2025 Patient encounter procedure 10/18/2025 12:50 PM EST Appointment Mammogram [address] [place] [address] Mammogram Start: 10-18-2025 End: 10-18-2025 Patient encounter procedure 10/18/2025 10:45 AM EST Office Visit OB/Gynecology [address] [place], [place] [address] Temitope Bear APRN.CNM [address] [place] [address] Annual OB/Gynecology Comment on above: Annual Start: 07-08-2025 End: 07-08-2025 Patient encounter procedure 07/08/2025 11:20 AM EDT Office Visit Family Medicine [facility] [address] [place] [address] Hui Valdes APRN.CELL EFFICIENCY SUPERVISOR [address] [place] [address] Physical Family Medicine [facility] Comment on above: Physical Start: 07-05-2025 Annual PCP Team Assembly And Packing Supervisor oneal Disease Visit Annual PCP Team Chronic Disease Visit [facility] Start: 07-05-2025 Anxiety Screening Anxiety Screening [facility] Start: 07-05-2025 Depression Screening Depression Scre ening [facility] Start: 06-17-2025 End: 06-17-2025 Patient encounter procedure 06/17/2025 11:40 AM EDT Office Visit Family Medicine [place] [address] [place] [address] Hui Valdes APRN.CELL EFFICIENCY SUPERVISOR [address] [place] [address] Physical Family Medicine [facility] Comment on above: Physical Start: 05-16-2025 Influenza vaccination Influenza Vacc ine (#1) [facility] Start: 04-22-2025 End: 04-22-2025 Patient encounter procedure 04/22/2025 1:00 PM EDT Office Visit Family Medicine [facility] [address] [place] [address] PodlogHui ac APRN.CELL EFFICIENCY SUPERVISOR [address] [place] [address] Follow up Family Medicine [facility] Comment on above: Follow up Start: 03-22-2025 End: 06-21-2025 QUANTITATIVE TOXICOLOGY PANEL, URINE [facility] Work Phone: Comment on above: Expected: 03/22/2025 , Expires: 06/21/2025 Start: 02-24-2025 Patient discharge [facility] Start: 02-22-2025 Ambulation without limitation [facility] Start: 02-22-2025 End: 02-22-2025 Following clinical pathway protocol [facility] Start: 02-22-2025 Vital signs measurements [facility] Start: 02-22-2025 End: 02-23-2025 [facility] Start: 02-22-2025 Admission procedure [facility] Start: 02-22-2025 Hospital admission, emergency, from emergency room, medical nature [facility] Start: 02-21-2025 [facility] Start: 02-21-2025 Assay of lactate ASSAY OF LACTIC ACI D [facility] Start: 02-21-2025 Assay of lipase ASSAY OF LIPASE [facility] Start: 02-21-2025 Blood count complete auto&auto difrntl wbc COMPLETE CBC W/AUTO DIFF WBC [facility] Start: 02-21-2025 Comprehensive metabo lic panel COMPREHEN METABOLIC PANEL [facility] Start: 02-21-2025 Ct abdomen & pelvis w/contrast material CT ABD & PELVIS W/CONTRAST [facility] Start: 02-21-2025 Emergency department visit low/moder severity EMERGENCY DEPT VISIT SF MDM [facility] Start: 02-21-2025 Iv infusion hydratio n each additional hour HYDRATE IV INFUSION ADD-ON [facility] Start: 02-21-2025 Ther proph/dx njx iv push single/1st sbst/drug THER/PROPH/DIAG INJ IV PUSH [facility] Start: 02-21-2025 Therapeutic injectio n iv push each new drug TX/PRO/DX INJ NEW DRUG ADDON [facility] Start: 02-21-2025 Urnls dip stick/tabl et reagent auto microscopy URINALYSIS AUTO W/SCOPE [facility] Start: 02-14-2025 Patient discharge [facility] Start: 02-14-2025 Anes lwr abd ventral & incisional hernia repair ANESTH REPAIR OF HERNIA [facility] Start: 02-14-2025 RPR AA HRN 1ST 3-10 NCR/STRN RPR AA HRN 1ST 3-10 NCR/STRN [facility] Start: 02-14-2025 End: 02-14-2025 Patient encounter procedure 02/14/2025 9:00 AM EDT Office Visit OB/Gynecology [address] [place] [address] Frances Baxter MD [address] [place] [address] REMOVE INTRAUTERINE DEVICE OB/Gynecology Comment on above: REMOVE INTRAUTERINE DEVICE Start: 01-18-2025 HPV TESTING HPV TESTING [facility] Start: 01-18-2025 PAP TESTING PAP TESTING [facility] Start: 01-18-2025 Screening for malign ant neoplasm of cervix [facility] Start: 01-15-2025 [facility] Start: 01-03-2025 End: 01-03-2025 Patient encounter procedure 01/03/2025 1:20 PM EDT Office Visit Family Medicine [facility] [address] [place] [address] Hui Valdes APRN.CELL EFFICIENCY SUPERVISOR [address] [place] [address] 6 month follow up Family [facility] Comment on above: 6 month follow up Start: 12-31-2024 End: 12-31-2024 Patient encounter procedure 12/31/2024 11:40 AM EDT Office Visit Family Medicine [facility] [address] [place] [address] Hui Valdes APRN.CELL EFFICIENCY SUPERVISOR [address] [place] [place] [address] 6 month follow up [facility] eLi Comment on above: 6 month follow up Start: 11-07-2024 BP Controlled (<130/80) BP Controlle d (<130/80) [facility] Start: 10-18-2024 End: 01-17-2025 Hepatitis B virus surface Ag [Presence] in Serum [facility] Comment on above: Expected: 10/18/2024 , Expires: 01/17/2025 Start: 10-18-2024 End: 01-17-2025 Hepatitis C virus Ab [Presence] in Serum [facility] Comment on above: Expected: 10/18/2024 , Expires: 01/17/2025 Start: 10-18-2024 End: 01-17-2025 HIV 1+2 Ab [Presence] in Serum or Plasma by Immunoassay [facility] Comment on above: Expected: 10/18/2024 , Expires: 01/17/2025 Start: 10-18-2024 End: 01-17-2025 SYPHILIS TREPONEMAL W/REFLEX [facility] Comment on above: Expected: 10/18/2024 , Expires: 01/17/2025 Start: 10-15-2024 End: 10-15-2024 Patient encounter procedure 10/15/2024 7:30 AM EST Office Visit OB/Gynecology [address] [place] [address] Sonya Darden APRN.CELL EFFICIENCY SUPERVISOR [address] [address] Encounter for screening for human papillomavirus (HPV) [Z11.51] OB/Gynecology Comment on above: Encounter for screen ing for human papillomavirus (HPV) [Z11.51] Start: 10-03-2024 Annual PCP Team Assembly And Packing Supervisor oneal Disease Visit Annual PCP Team Chronic Disease Visit [facility] Start: 10-03-2024 BP Controlled (<130/80) BP Controlle d (<130/80) [facility] Start: 09-27-2024 End: 09-27-2024 Patient encounter procedure 09/27/2024 11:00 AM EST Office Visit Neurology [address] [place], [place] [id number] Coral Olsen DO [address] [place] [address] [facility] Neurology Comment on above: Migraine Start: 08-30-2024 End: 08-30-2024 Patient encounter procedure 08/30/2024 10:30 AM EST Office Visit OB/Gynecology [address] [place] [address] Sonya Darden, ELECTRONIC EQUIPMENT MAINT TECH.CELL EFFICIENCY SUPERVISOR [address] [place] [address] Encounter for screening for human papillomavirus (HPV) [Z11.51] OB/Gynecology Comment on above: Encounter for screen ing for human papillomavirus (HPV) [Z11.51] Start: 08-24-2024 End: 08-24-2024 Patient encounter procedure 08/24/2024 1:30 PM EST Office Visit OB/Gynecology [address] [place] [address] Sonya Darden, ELECTRONIC EQUIPMENT MAINT TECH.CELL EFFICIENCY SUPERVISOR [address] [place] [address] Encounter for screening for human papillomavirus (HPV) [Z11.51] OB/Gynecology Comment on above: Encounter for screen ing for human papillomavirus (HPV) [Z11.51] Start: 07-05-2024 End: 10-04-2024 CBC W Auto Differential panel - Blood COMPLETE BLOOD COUNT AND DIFFERENTIAL Lab Routine Encounter for medical examination to establish care Expected: 07/05/2024, Expires: 10/04/2024 [facility] Work Phone: Comment on above: Expected: 07/05/2024 , Expires: 10/04/2024 Start: 07-05-2024 End: 10-04-2024 Comprehensive metabolic 2000 panel - Serum or Plasma COMPREHENSIVE METABOLIC PANEL Lab Routine Encounter for medical examination to establish care Expected: 07/05/2024, Expires: 10/04/2024 [facility] Comment on above: Expected: 07/05/2024 , Expires: 10/04/2024 Start: 07-05-2024 End: 10-04-2024 Lipid 1996 panel - Serum or Plasma LIPID PANEL BASIC Lab Routine Encounter for medical examination to establish care Expected: 07/05/2024, Expires: 10/04/2024 [facility] Comment on above: Expected: 07/05/2024 , Expires: 10/04/2024 Start: 07-01-2024 Annual PCP Team Assembly And Packing Supervisor oneal Disease Visit Annual PCP Team Chronic Disease Visit [facility] Start: 07-01-2024 Covid-19 Vaccine () Covid-19 Vaccine () [facility] Comment on above: Postponed from 05/16 (Declined at this time) Start: 05-16-2024 Covid-19 Vaccine () Covid-19 Vaccine () [facility] Start: 03-26-2024 BP CONTROLLED (<130/80) BP CONTROLLE D (<130/80) [facility] Start: 01-02-2024 BP CONTROLLED (<130/80) BP CONTROLLE D (<130/80) [facility] Start: 12-11-2023 ANNUAL PCP TEAM PULP BLEACHER ONEAL DISEASE VISIT ANNUAL PCP TEAM CHRONIC DISEASE VISIT [facility] Start: 10-08-2023 ANNUAL PCP TEAM PULP BLEACHER ONEAL DISEASE VISIT ANNUAL PCP TEAM CHRONIC DISEASE VISIT [facility] Start: 09-15-2023 Behavioral Health Screening Behavioral Health Screening [facility] Start: 09-04-2023 BP CONTROLLED (<130/80) BP CONTROLLE D (<130/80) [facility] Start: 08-15-2023 BP CONTROLLED (<130/80) BP CONTROLLE D (<130/80) [facility] Start: 08-06-2023 BP CONTROLLED (<130/80) BP CONTROLLE D (<130/80) [facility] Start: 08-02-2023 BP CONTROLLED (<130/80) BP CONTROLLE D (<130/80) [facility] Start: 07-19-2023 BP CONTROLLED (<130/80) BP CONTROLLE D (<130/80) [facility] Start: 06-25-2023 ANNUAL PCP TEAM PULP BLEACHER ONEAL DISEASE VISIT ANNUAL PCP TEAM CHRONIC DISEASE VISIT [facility] Start: 06-25-2023 BP CONTROLLED (<130/80) BP CONTROLLE D (<130/80) [facility] Start: 06-25-2023 HEPATITIS B (1 of 3 - 3-dose series) HEPATITIS B (1 of 3 - 3-dose series) [facility] Comment on above: Postponed from 09/06 (Declined at this time) Start: 06-21-2023 BP CONTROLLED (<130/80) BP CONTROLLE D (<130/80) [facility] Start: 05-16-2023 Influenza vaccination INFLUENZA (#1) [facility] Start: 05-10-2023 BP CONTROLLED (<130/80) BP CONTROLLE D (<130/80) [facility] Start: 05-06-2023 ANNUAL PCP TEAM PULP BLEACHER ONEAL DISEASE VISIT ANNUAL PCP TEAM CHRONIC DISEASE VISIT [facility] Start: 05-06-2023 BP CONTROLLED (<130/80) BP CONTROLLE D (<130/80) [facility] Start: 04-05-2023 COVID-19 VACCINE (2 - Moderna series) COVID-19 VACCINE (2 - Moderna series) [facility] Comment on above: Postponed from 07/30 (Declined at this time) Postponed from 08/27 (Declined at this time) Start: 03-05-2023 BP CONTROLLED (<130/80) BP CONTROLLE D (<130/80) [facility] Start: 02-08-2023 BP CONTROLLED (<130/80) BP CONTROLLE D (<130/80) [facility] Start: 01-17-2023 End: 01-02-2024 EGD DIAGNOSTIC [facility] Work Phone: Comment on above: Expected: 01/17/2023 , Expires: 01/02/2024 1 Occurrences starti ng 01/17/2023 until 01/17/2023 Start: 01-08-2023 ANNUAL PCP TEAM PULP BLEACHER ONEAL DISEASE VISIT ANNUAL PCP TEAM CHRONIC DISEASE VISIT [facility] Start: 11-20-2022 End: 01-20-2023 Choriogonadotropin.beta subunit [Units/volume] in Serum or Plasma HCG QUANTITATIVE Lab Routine examination or test, unconfirmed Expected: 11/20/2022 (Approximate), Expires: 01/20/2023 [facility] Work Phone: Comment on above: Expected: 11/20/2022 (Approximate), Expires: 01/20/2023 Start: 11-19-2022 Adult depression screening assessment DEPRESSION SCREENING [facility] Start: 10-04-2022 HPV TESTING HPV TESTING [facility] Start: 10-04-2022 PAP TESTING PAP TESTING [facility] Start: 09-15-2022 DEPRESSION ASSESSMENT DEPRESSION ASS ESSMENT [facility] Start: 09-09-2022 INDUCTION L&D INDUCTION L&D Procedures Routine Preexisting hypertension complicating , antepartum Expected: 09/09/2022 [facility] Work Phone: Comment on above: Expected: 09/09/2022 Start: 08-06-2022 End: 08-06-2023 OBSTETRIC ULTRASOUND WHI OBSTETRIC ULTRASOUND WHI Anc Imaging Routine AMA (advanced maternal age) multigravida 35+, third trimester Obesity complicating , third trimester Expected: 08/06/2022, Expires: 08/06/2023 [facility] Work Phone: Comment on above: Expected: 08/06/2022 , Expires: 08/06/2023 Start: 06-21-2022 End: 06-21-2023 CBC panel - Blood by Automated count [facility] Work Phone: Comment on above: Expected: 06/21/2022 , Expires: 06/21/2023 Start: 06-21-2022 End: 06-21-2023 GEST GLUC SCREEN, 1-HR, 50 GM, NON-FASTING [facility] Work Phone: Comment on above: Expected: 06/21/2022 , Expires: 06/21/2023 Start: 06-21-2022 End: 06-21-2023 SYPHILIS TOTAL W/REFLEX [facility] Work Phone: Comment on above: Expected: 06/21/2022 , Expires: 06/21/2023 Start: 06-21-2022 End: 08-21-2022 TOX SCREEN ROUT UR TOX SCREEN ROUT UR Lab Routine 26 weeks gestation of History of drug use Expected: 06/21/2022, Expires: 08/21/2022 [facility] Work Phone: Comment on above: Expected: 06/21/2022 , Expires: 08/21/2022 Start: 05-16-2022 Influenza vaccination INFLUENZA (#1) [facility] Start: 02-14-2022 End: 04-16-2022 Acute hepatitis 2000 panel - Serum [facility] Work Phone: Comment on above: Expected: 02/14/2022 , Expires: 04/16/2022 Start: 02-14-2022 End: 04-16-2022 HIV 1+2 Ab [Presence] in Serum or Plasma by Immunoassay [facility] Work Phone: Comment on above: Expected: 02/14/2022 , Expires: 04/16/2022 Start: 02-14-2022 End: 04-16-2022 RUBELLA IGG AB [facility] Work Phone: Comment on above: Expected: 02/14/2022 , Expires: 04/16/2022 Start: 02-14-2022 End: 04-16-2022 SYPHILIS TOTAL W/REFLEX [facility] Work Phone: Comment on above: Expected: 02/14/2022 , Expires: 04/16/2022 Start: 01-18-2022 End: 03-20-2022 Choriogonadotropin.beta subunit [Units/volume] in Serum or Plasma HCG QUANTITATIVE Lab Routine Secondary amenorrhea Expected: 01/18/2022, Expires: 03/20/2022 [facility] Work Phone: Comment on above: Expected: 01/18/2022 , Expires: 03/20/2022 Start: 01-18-2022 End: 03-20-2022 TYPE AND SCREEN TYPE AND SCREEN Blood Bank Routine Secondary amenorrhea Expected: 01/18/2022, Expires: 03/20/2022 [facility] Work Phone: Comment on above: Expected: 01/18/2022 , Expires: 03/20/2022 Start: 12-12-2021 ANNUAL PCP TEAM PULP BLEACHER ONEAL DISEASE VISIT ANNUAL PCP TEAM CHRONIC DISEASE VISIT [facility] Start: 09-15-2021 DEPRESSION ASSESSMENT DEPRESSION ASS ESSMENT [facility] Start: 07-30-2021 COVID-19 VACCINE (2 - Moderna 3-dose series) COVID-19 VACCINE (2 - Moderna 3-dose series) [facility] Start: 07-30-2021 COVID-19 VACCINE (2 - Moderna series) COVID-19 VACCINE (2 - Moderna series) [facility] Start: 05-16-2021 Influenza vaccination Flu vaccine (# 1) [facility] Work Phone: Start: 06-01-2020 A1C test (Diabetic o r Prediabetic) A1C test (Diabetic or Prediabetic) [place] Start: 06-01-2020 HbA1c (Bld) [Mass fraction] A1C test (Diabetic or Prediabetic) [facility] Work Phone: Start: 06-01-2020 Hemoglobin A1c measurement A1C test (Diabetic or Prediabetic) [facility] Work Phone: Start: 07-09-2019 End: 07-09-2019 Appointment 07/09/2019 Appointment [facility] Start: 07-07-2019 End: 07-07-2019 Appointment 07/07/2019 Appointment [facility] Start: 07-05-2019 End: 07-05-2019 Appointment 07/05/2019 Appointment [facility] Start: 07-02-2019 End: 07-02-2019 Appointment 07/02/2019 Appointment [facility] Start: 06-30-2019 End: 06-30-2019 Appointment 06/30/2019 Appointment [facility] Start: 06-28-2019 End: 06-28-2019 Appointment 06/28/2019 Appointment [facility] Start: 06-25-2019 End: 06-25-2019 Appointment 06/25/2019 Appointment Mihai Ly [facility] Start: 06-23-2019 End: 06-23-2019 Appointment 06/23/2019 Appointment Mihai Ly [facility] OP Start: 06-21-2019 End: 06-21-2019 Appointment 06/21/2019 Appointment Mihai Ly [facility] OP Start: 06-16-2019 End: 06-16-2019 Appointment 06/16/2019 Appointment Mihai Ly [facility] OP Start: 06-14-2019 End: 06-14-2019 Appointment 06/14/2019 Appointment iMhai Ly [facility]DICTION OP Start: 06-11-2019 End: 06-11-2019 Appointment 06/11/2019 Appointment Mihai Ly [facility] OP Start: 06-09-2019 End: 06-09-2019 Appointment 06/09/2019 Appointment Mihai Ly [facility] Start: 06-07-2019 End: 06-07-2019 Appointment 06/07/2019 Appointment Mihai Ly [facility] Start: 06-04-2019 End: 06-04-2019 Appointment 06/04/2019 Appointment Mihai Ly [facility] Start: 06-02-2019 End: 06-02-2019 Appointment 06/02/2019 Appointment Mihai Ly [facility] Start: 05-31-2019 End: 05-31-2019 Appointment 05/31/2019 Appointment Mihai Ly [facility] Start: 05-28-2019 End: 05-28-2019 Appointment 05/28/2019 Appointment Mihai Ly [facility] Start: 05-26-2019 End: 05-26-2019 Appointment 05/26/2019 Appointment Mihai Ly [facility] Start: 05-24-2019 End: 05-24-2019 Appointment 05/24/2019 Appointment Mihai Ly [facility]DI[facility] OP Start: 05-21-2019 End: 05-21-2019 Appointment 05/21/2019 Appointment Mihai Ly [facility] Start: 05-19-2019 End: 05-19-2019 Appointment 05/19/2019 Appointment [facility] Start: 05-16-2019 [facility] Start: 05-14-2019 End: 05-14-2019 Appointment 05/14/2019 Appointment M[facility] OP Start: 05-12-2019 End: 05-12-2019 Appointment 05/12/2019 Appointment [facility] Start: 05-10-2019 End: 05-10-2019 Appointment 05/10/2019 Appointment [facility] Start: 05-07-2019 End: 05-07-2019 Appointment 05/07/2019 Appointment [facility] Start: 05-06-2019 End: 05-06-2019 Office Visit 05/06/2019 Office Visit Obstetrics and Gynecology Luci Edwards, JAZ - [address], [address] [place] [address] [phone] [facility] [employer] BREAKER TENDER Start: 05-05-2019 End: 05-05-2019 Appointment 05/05/2019 Appointment [facility] Start: 05-03-2019 End: 05-03-2019 Appointment 05/03/2019 Appointment [facility] Start: 04-30-2019 End: 04-30-2019 Appointment 04/30/2019 Appointment [facility] Start: 04-28-2019 End: 04-28-2019 Appointment 04/28/2019 Appointment [facility] Start: 04-26-2019 End: 04-26-2019 Appointment 04/26/2019 Appointment M[facility] Start: 2015 Screening for malign ant neoplasm of cervix [facility] [employer] Phone: Start: 2012 HPV Vaccine (1 - 3-d ose SCDM series) HPV Vaccine (1 - 3-dose SCDM series) [facility] Start: 2006 Cervical cancer screen Cervical canc er screen [place] Start: 2006 Screening for malign ant neoplasm of cervix [facility] Work Phone: Start: 2003 BP CONTROLLED (<130/80) BP CONTROLLE D (<130/80) [facility] Start: 2001 COVID-19 Vaccine (1) COVID-19 Vaccin e (1) [facility] Work Phone: Start: 1998 Varicella Vaccine (1 of 2 - 13+ 2-dose series) Varicella Vaccine (1 of 2 - 13+ 2-dose series) [place] Start: 1997 COVID-19 Vaccine (1) COVID-19 Vaccin e (1) [facility] Work Phone: Start: 1991 Pneumococcal 0-64 ye ars Vaccine (1 of 1 - PPSV23) Pneumococcal 0-64 years Vaccine (1 of 1 - PPSV23) [place] Start: 1986 Varicella Vaccine (1 of 2 - 2-dose childhood series) Varicella Vaccine (1 of 2 - 2-dose childhood series) [place] Start: 1985 HEPATITIS B (1 of 3 - 3-dose series) HEPATITIS B (1 of 3 - 3-dose series) [facility] Alanine aminotransfe rase [Enzymatic activity/volume] in Serum or Plasma [facility] Albumin [Mass/volume ] in Serum or Plasma [facility] Alkaline phosphatase [Enzymatic activity/volume] in Serum or Plasma [facility] Anion gap in Serum o r Plasma [facility] BACTERIAL VAGINOSIS NAAT BACTERI AL VAGINOSIS NAAT Lab Routine Screening for STDs (sexually transmitted diseases) 10/18/2024 10:44 AM EST [facility] Bilirubin, total measurement [facility] BUN/Creatinine ratio [facility] End: 06-07-2019 Buprenorphine Buprenorphine Lab Routine Once for 1 Occurrences starting 06/07/2019 until 06/07/2019 [place], [place] Comment on above: Once for 1 Occurrenc es starting 06/07/2019 until 06/07/2019 Buprenorphine Buprenorphine La b Routine 06/07/2019 2:46 PM EDT [facility] [place], [place] Calcium [Mass/volume ] in Serum or Plasma [facility] ALEX/TRICHOMONAS NAAT ALEX /TRICHOMONAS NAAT Lab Routine Screening for STDs (sexually transmitted diseases) 10/18/2024 10:44 AM [facility] Carbon dioxide, tota l [Moles/volume] in Central venous blood [facility] Chlamydia trachomatis+Neisseria gonorrhoeae DNA [Presence] in Unspecified specimen by CASSIDY with probe detection GC/CHLAMYDIA DNA DET Lab Routine Women's annual routine gynecological examination 01/18/2022 2:05 PM EDT [facility] Work Phone: Chlamydia trachomatis+Neisseria gonorrhoeae DNA [Presence] in Unspecified specimen by CASSIDY with probe detection GONORRHEA/CHLAMYDIA NAAT Lab Routine Screening for STDs (sexually transmitted diseases) 10/18/2024 10:44 AM [facility] Chlamydia trachomatis+Neisseria gonorrhoeae DNA [Presence] in Urine by CASSIDY with probe detection GC/CHLAMYDIA AMPLIF, URINE Microbiology Routine Routine screening for STI (sexually transmitted infection) 11/01/2022 2:01 PM Textic [facility] [employer] Work Phone: Creatinine [Mass/vol ume] in Serum or Plasma [facility] End: 12-23-2020 Culture, Urine Culture, Urine Microbiology STAT One Time for 1 Occurrences starting 12/23/2020 until 12/23/2020 [employer] Work Phone: Comment on above: One Time for 1 Occur rences starting 12/23/2020 until 12/23/2020 Culture, Urine Culture, Urine Microbiology STAT 12/23/2020 11:11 PM EDT [facility] Work Phone: End: 11-17-2025 DBT Breast - bilateral screening CHARIS SCREENING W JORGE Radiology Routine Encounter for screening mammogram for breast cancer Dense breast tissue 1 Occurrences starting 10/18/2024 until 11/17/2025 [facility] Work Phone: Comment on above: 1 Occurrences starti ng 10/18/2024 until 11/17/2025 EKG 12 Lead [facility] [place] Erythrocyte mean corpuscular volume determination [facility] End: 06-07-2019 Fentanyl, Urine Fentanyl, Urine Lab Routine Once for 1 Occurrences starting 06/07/2019 until 06/07/2019 [facility] [place] Comment on above: Once for 1 Occurrenc es starting 06/07/2019 until 06/07/2019 Fentanyl, Urine Fentanyl, Urine Lab Routine 06/07/2019 2:46 PM EDT [facility] [place] End: 08-21-2022 nonstress test NON-STRESS TEST Procedures Routine Gestational diabetes mellitus, class A1 Obesity complicating , third trimester Preexisting hypertension complicating , antepartum Once per week for 10 Occurrences starting 07/19/2022 until 08/21/2022 [facility] Work Phone: Comment on above: Once per week for 10 Occurrences starting 07/19/2022 until 08/21/2022 nonstress test NON-S TRESS TEST Procedures Routine AMA (advanced maternal age) multigravida 35+, third trimester Obesity complicating , third trimester Gestational diabetes mellitus, class A1 33 weeks gestation of Non-stress test reactive Ordered: 08/06/2022 [facility] Work Phone: Comment on above: Ordered: 08/06/2022 FUNGAL SMEAR FUNGAL SMEAR Microbiology Routine Vaginal discharge Ordered: 04/05/2022 [facility] Work Phone: Comment on above: Ordered: 04/05/2022 Glucose [Mass/volume ] in Serum or Plasma [facility] Hematocrit [Volume Fraction] of Blood [facility] Hemoglobin [Mass/vol ume] in Blood [facility] Hemoglobin A1c/Hemoglobin.total in Blood HEMOGLOBIN A1C (POC) Lab Routine History of gestational diabetes Ordered: 12/10/2022 [facility] Work Phone: Comment on above: Ordered: 12/10/2022 End: 06-07-2019 [facility] Lab Routine Once for 1 Occurrences starting 06/07/2019 until 06/07/2019 [facility] [place] Comment on above: Once for 1 Occurrenc es starting 06/07/2019 until 06/07/2019 [facility] Lab Routine 06/07/2019 2:46 PM EDT [place] Leukocytes [#/volume ] in Blood [facility] Mean corpuscular hemoglobin concentration determination [facility] Mean corpuscular hemoglobin determination [facility] Measurement of renal function [facility] Neutrophil count [facility] Neutrophil percent differential count [facility] OB UA DIP B/O (AG) OB UA DIP B/O (AG) Lab Routine 15 weeks gestation of Ordered: 04/02/2022 [facility] Work Phone: Comment on above: Ordered: 04/02/2022 OB UA DIP B/O (AG) OB UA DIP B/O (AG) Lab Routine 28 weeks gestation of Ordered: 07/03/2022 [facility] Work Phone: Comment on above: Ordered: 07/03/2022 OB UA DIP B/O (AG) OB UA DIP B/O (AG) Lab Routine 32 weeks gestation of Ordered: 07/31/2022 [facility] Work Phone: Comment on above: Ordered: 07/31/2022 OB UA DIP B/O (AG) OB UA DIP B/O (AG) Lab Routine 34 weeks gestation of Ordered: 08/14/2022 [facility] Work Phone: Comment on above: Ordered: 08/14/2022 OB UA DIP B/O (AG) OB UA DIP B/O (AG) Lab Routine 35 weeks gestation of Ordered: 08/22/2022 [facility] Work Phone: Comment on above: Ordered: 08/22/2022 OB UA DIP B/O (AG) OB UA DIP B/O (AG) Lab Routine 36 weeks gestation of Ordered: 08/29/2022 [facility] Work Phone: Comment on above: Ordered: 08/29/2022 OB UA DIP B/O (AG) OB UA DIP B/O (AG) Lab Routine 37 weeks gestation of Ordered: 09/03/2022 [facility] Work Phone: Comment on above: Ordered: 09/03/2022 OBSTETRIC ULTRASOUND WHI OBSTETR IC ULTRASOUND WHI [facility] Routine care of multigravida, antepartum Ordered: 01/21/2022 [facility] Work Phone: Comment on above: Ordered: 01/21/2022 OBSTETRIC ULTRASOUND WHI OBSTETR IC ULTRASOUND WHI [facility] Routine 15 weeks gestation of Ordered: 04/05/2022 [facility] Work Phone: Comment on above: Ordered: 04/05/2022 OBSTETRIC ULTRASOUND WHI OBSTETR IC ULTRASOUND WHI [facility] Routine Obesity complicating , second trimester Ordered: 05/07/2022 [facility] Work Phone: Comment on above: Ordered: 05/07/2022 End: 09-13-2022 OBSTETRIC ULTRASOUND WHI OBSTETRIC ULTRASOUND WHI [facility] Routine Gestational diabetes mellitus, class A1 Once per month for 4 Occurrences starting 07/05/2022 until 09/13/2022 [facility] Work Phone: Comment on above: Once per month for 4 Occurrences starting 07/05/2022 until 09/13/2022 PAP FLUID CERVICAL SCREENING PAP FLUID CERVICAL SCREENING Lab Routine Women's annual routine gynecological examination Routine cervical smear Ordered: 01/18/2022 [facility] Work Phone: Comment on above: Ordered: 01/18/2022 PAP TEST PAP TEST Lab Lindsay doll Encounter for gynecological examination (general) (routine) with abnormal findings Screening for cervical cancer Encounter for screening for human papillomavirus (HPV) 10/18/2024 10:44 AM EST [facility] Patient Education [facility] Work Phone: Patient referral [facility] Work Phone: Platelets [#/volume] in Blood [facility] Potassium measurement [facility] QUANT TOX PANEL QUANT TOX PANEL Lab Routine Adult ADHD 03/22/2025 2:04 PM EDT [facility] Red blood cell count [facility] Red cell distributio n width determination [facility] Removal intrauterine device iud REMOVE INTRAUTERINE DEVICE Procedures Routine Encounter for IUD removal Ordered: 12/28/2024 [facility] Work Phone: Comment on above: Ordered: 12/28/2024 Serum chloride measurement [facility] Sodium measurement [facility] SPECIMEN VALIDITY, URINE SPECIME N VALIDITY, URINE Lab Routine Adult ADHD 03/22/2025 2:04 PM EDT [facility] SURGICAL PATHOLOGY [facility] Work Phone: Comment on above: Release Upon Orderin g for 1 Occurrences starting 01/17/2023, 1 completed SWAB COLLECTION SPECIMEN SWAB CO LLECTION SPECIMEN Lab Routine Testing of female for genetic disease carrier status Ordered: 03/14/2025 [facility] Work Phone: Comment on above: Ordered: 03/14/2025 Total protein measurement [facility] TOXICOLOGY SCREEN, ROUTINE URINE TOXICOLOGY SCREEN, ROUTINE URINE Lab Routine Adult ADHD 03/22/2025 2:04 PM EDT [facility] UA DIP, URINE (POC) UA DIP, URIN E (POC) Lab Routine 26 weeks gestation of Ordered: 06/21/2022 [facility] Work Phone: Comment on above: Ordered: 06/21/2022 Urea nitrogen [Mass/volume] in Serum or Plasma [facility] Immunizations Immunization Date Immunization Notes Care Provider Citlali boyd 07-05-2024 influenza, seasonal, injectable Hui Valdes [employer] 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: [facility] 07-05-2024 influenza virus vaccine, unspecified formulation Brenton Edwards [facility] Work Phone: [facility] 07-01-2023 influenza, injectabl e, quadrivalent, contains preservative Ernesto Carlin MD Work Phone: [facility] 07-05-2022 tetanus toxoid, reduced diphtheria toxoid, and acellular pertussis vaccine, adsorbed Nurse [facility] 06-25-2022 influenza, injectabl e, quadrivalent, contains preservative Guanakito Angel PA-C Work Phone: [facility] 06-29-2021 influenza, injectabl e, quadrivalent, contains preservative Ernesto Carlin MD Work Phone: [facility] 06-29-2021 tetanus toxoid, reduced diphtheria toxoid, and acellular pertussis vaccine, adsorbed Ernesto Carlin MD Work Phone: [facility] 05-03-2020 influenza virus vaccine, unspecified formulation Ernesto Carlin MD Work Phone: [facility] 05-03-2020 influenza, injectabl e, quadrivalent, preservative free Ernesto Carlin MD Work Phone: [facility] 10-04-2019 influenza, injectabl e, quadrivalent, contains preservative Ernesto Carlin MD Work Phone: [facility] 07-07-2018 influenza, injectabl e, quadrivalent, contains preservative Ernesto Carlin MD Work Phone: [facility] 07-07-2018 tetanus toxoid, reduced diphtheria toxoid, and acellular pertussis vaccine, adsorbed Ernesto Carlin MD Work Phone: [facility] 08-17-2009 novel [id number], preservative-free, injectable Ernesto Carlin MD Work Phone: [facility] 04-27-1998 measles, mumps and rubella virus vaccine Ernesto Carlin MD Work Phone: [facility] NEGATED: Highlighted row has not occurred!06-04-2019 influenza, injectable, quadrivalent, preservative free [facility]: Highlighted row has not occurred!06-01-2019 influenza, injectable, quadrivalent, preservative free [facility] Payers Date Payer Category Payer Self-pay 2022 Medicaid [id number] 2018 Medicaid [employer] [id number] 2018-Present [phone] [address] [place] [address] Medicaid [id number] 2018 Medicaid [id number] 2014 Unknown xxxxxxxxxxx [id number] 1985 Unknown [id number] 1985 Unknown [id number] 1985 Unknown [id number] 1959 Unknown [id number] Unknown [employer] Unknown [id number] Unknown [id number] Unknown [id number] Unknown [id number] Unknown [id number] Unknown [id number] Unknown [id number] Unknown [id number] Unknown [id number] Unknown [id number] Unknown [id number] Unknown [id number] Social History Date Type Detail Facility Start: 06-27-2018 End: 02-22-2025 Tobacco smoking status NHIS Current every day smoker [facility] Start: 09-15-2000 End: 09-15-2020 History of tobacco use Cigarette Smoker [place] Start: 06-27-2018 End: 07-05-2024 Cigarettes smoked current (pack per day) - Reported [facility] Start: 06-27-2018 End: 07-05-2024 Alcohol intake No [facility] Start: 1985 Sex Assigned At Not on file M [place] Start: 05-31-2019 End: 06-19-2021 Alcohol intake Current non-drinker of alcohol (finding) [place] Start: 12-23-2020 End: 07-05-2024 Tobacco smoking status MTIS Former smoker [facility] Work Phone: Start: 12-23-2020 End: 07-05-2024 Tobacco use and exposure Never used [facility] Work Phone: Start: 11-11-2020 [facility] Work Phone: Start: 12-15-2021 End: 06-28-2022 Exposure to SARS-CoV-2 (event) Not sure [facility] Work Phone: Start: 12-12-2020 End: 05-06-2022 Tobacco use and exposure Former smokeless tobacco user [facility] Work Phone: End: 10-16-2020 History of tobacco use User of smokeless tobacco [facility] Work Phone: Start: 11-26-2021 End: 03-22-2025 Alcohol intake Ex-drinker (finding) [facility] Start: 11-19-2021 End: 10-01-2022 History SDOH Alcohol Frequency 1 [facility] Start: 11-19-2021 History SDOH Alcohol Std Drinks 98 [facility] Start: 07-07-2018 History SDOH Alcohol Comment rarely [facility] Start: 11-19-2021 End: 10-01-2022 History SDOH Social Connections Phone 5 [facility] Start: 11-19-2021 End: 10-01-2022 History SDOH Social Connections Orthodox 3 [facility] Start: 11-19-2021 History SDOH Physica l Activity MPS 6 [facility] Start: 11-19-2021 End: 10-01-2022 History SDOH Financial 4 [facility] Start: 11-19-2021 End: 10-01-2022 History SDOH Transport Med 2 [facility] Start: 1985 Sex Assigned At Female [facility] Start: 04-05-2022 End: 04-15-2022 Exposure to SARS-CoV-2 (event) Yes [facility] Start: 09-15-2000 End: 09-15-2020 History of tobacco use Current smoker [facility] Work Phone: Start: 10-01-2022 History SDOH Alcohol Std Drinks 0 [facility] Are you now , , , , never or living with a partner? [facility] How often to you hav e a drink containing alcohol? Never [facility] Start: 04-01-2015 How many standard drinks containing alcohol do you have on a typical day? Patient does not drink [facility] How hard is it for y ou to pay for the very basics like food, housing, medical care, and heating Not very hard [facility] Do you feel stress - tense, restless, nervous, or anxious, or unable to sleep at night because your mind is troubled all the time - these days [OSQ] Not at all [facility] (I/We) worried wheth er (my/our) food would run out before (I/we) got money to buy more. Never true [facility] In the past 12 month s, was there a time when you were not able to pay the mortgage or rent on time? No [facility] Start: 05-15-2020 Gender identity Identifies as female gender (finding) [facility] Start: 05-15-2020 Sexual orientation Heterosexual (rosario cardenas) [facility] Do you feel stress - tense, restless, nervous, or anxious, or unable to sleep at night because your mind is troubled all the time - these days [OSQ] Only a little [facility] NEGATED: Highlighted row - - [facility] Work Phone: NEGATED: Highlighted row Not [facility] Medical Equipment Procedure Code Equipment Code Equipment Original Text Equipment Identifier Dates Total cholecystectomy with exploration of common bile duct APPLIERS,CLIP [id number] ENDO FDA Start: 02-23-2025 Total cholecystectomy with exploration of common bile duct APPLIERS,CLIP [id number] ENDO FDA Start: 02-23-2025 Repair, hernia, ventral, with mesh insertion MESH,VENTLEX ST MED 6.4CM FDA Start: 02-14-2025 Repair, hernia, ventral, with mesh insertion MESH,VENTLEX ST MED 6.4CM FDA Start: 02-14-2025 Repair, hernia, ventral, with mesh insertion MESH,VENTLEX ST MED 6.4CM FDA Start: 02-14-2025 Repair, hernia, ventral, with mesh insertion MESH,VENTLEX ST MED 6.4CM FDA Start: 02-14-2025 Start: 06-28-2022 End: 09-01-2022 Comment on above: Use as instructed 1 Strip four times d aily. Use as instructed Goals Date Patient Goal Desired Activity /State Functional Status Date Assessment Result Facility 02-23-2025 Functional status [facility] Work Phone: 02-14-2025 Functional status [facility] Work Phone: 12-31-2024 Total score [AUDIT-C] 0 01/01/20 25 12:33 PM EDT User, Krystian [facility] 12-31-2024 Within the last year , have you been humiliated or emotionally abused in other ways by your partner or ex-partner? No 12/31/2024 12:33 PM EDT User, Krystian No [facility] 12-31-2024 Within the last year , have you been afraid of your partner or ex-partner? No 12/31/2024 12:33 PM EDT User, Tot No [facility] 12-31-2024 Within the last year , have you been raped or forced to have any kind of sexual activity by your partner or ex-partner? No 12/31/2024 12:33 PM EDT User, Johniehart No [facility] 12-31-2024 Within the last year , have you been kicked, hit, slapped, or otherwise physically hurt by your partner or ex-partner? No 12/31/2024 12:33 PM EDT User, Johniehart No [facility] 12-31-2024 How often to you hav e a drink containing alcohol? Never 12/31/2024 12:33 PM EDT User, Mychart Never [facility] 12-31-2024 Functional status Patient does n ot drink 12/31/2024 12:33 PM EDT User, Johniehart Patient does not drink [facility] 12-31-2024 How often do you hav e 6 or more drinks on 1 occasion? Never 12/31/2024 12:33 PM EDT User, Mychart Never [facility] 12-24-2024 Total score [AUDIT-C] 0 12/25/19 25 12:37 PM EDT User, Johniehart [facility] 12-24-2024 Within the last year , have you been humiliated or emotionally abused in other ways by your partner or ex-partner? No 12/24/2024 12:37 PM EDT User, Johniehart No [facility] 12-24-2024 Within the last year , have you been afraid of your partner or ex-partner? No 12/24/2024 12:37 PM EDT User, Johniehart No [facility] 12-24-2024 Within the last year , have you been raped or forced to have any kind of sexual activity by your partner or ex-partner? No 12/24/2024 12:37 PM EDT User, Johniehart No [facility] 12-24-2024 Within the last year , have you been kicked, hit, slapped, or otherwise physically hurt by your partner or ex-partner? No 12/24/2024 12:37 PM EDT UserKrystian No [facility] 12-24-2024 How often to you hav e a drink containing alcohol? Never 12/24/2024 12:37 PM EDT UserKrystian Never [facility] 12-24-2024 Functional status Patient does n ot drink 12/24/2024 12:37 PM EDT User, Krystian Patient does not drink [facility] 12-24-2024 How often do you hav e 6 or more drinks on 1 occasion? Never 12/24/2024 12:37 PM EDT UserKrystian Never [facility] 09-14-2022 Are you blind, or do you have serious difficulty seeing, even when wearing glasses No 09/14/2022 8:45 AM Sonya Espitia RN No [facility] 09-14-2022 Do you have serious difficulty walking or climbing stairs No 09/14/2022 8:45 AM Sonya Espitia RN No [facility] 09-14-2022 Do you have difficul ty dressing or bathing No 09/14/2022 8:45 AM Sonya Espitia RN No [facility] 09-14-2022 Because of a physica l, mental, or emotional condition, do you have difficulty doing errands alone such as visiting a physician's office or shopping No 09/14/2022 8:45 AM Sonya Espitia RN [facility] 03-28-2022 Are you deaf, or do you have serious difficulty hearing No 03/28/2022 1:25 PM EDT Carlene Francis RN No [facility] NEGATED: Highlighted row Functional performance Functional status health issues are not documented Disease [facility] Work Phone: Mental Status Date Assessment Result Facility 02-24-2025 Cognitive function Level Of Cons ciousness Awake;Alert;Appropriate ;Follows Commands [facility] Work Phone: 02-23-2025 Cognitive function Voice/Name [facility] Work Phone: 02-14-2025 Cognitive function Voice/Name [facility] Work Phone: 09-14-2022 Because of a physical, mental, or emotional condition, do you have serious difficulty concentrating, remembering, or making decisions No 09/14/2022 8:45 AM Sonya Espitia RN No [facility] NEGATED: Highlighted row Cognitive function [Interpretation] Cognitive status health issues are not documented Disease [facility] Work Phone: Clinical Notes 10-30-2021 to 04-04-2025 Telephone Encounter - Ezra Cordon LPN - 04/04/2025 1:44 PM EDTTelephone Encounter - Ezra Cordon LPN - 04/04/2025 1:44 PM EDTTelephone Encounter - Rachel Rey MA - 03/25/2025 1:55 PM EDT Note Date & Type Note Facility 04-04-2025 Telephone encounter Note Prescription Refill Information The patient has been identified by name and date of : Yes Caregiver verified no other encounters exist for this prescription request: Yes Caregiver confirmed with patient/requestor that no other refills are due, in the near future, with this provider at this time: Yes The last office visit in the department: 03/22/25 Does the patient have a future office visit with this provider/department: Yes, 06/17/25 Requested Prescriptions Pending Prescriptions Disp Refills SUMAtriptan (IMITREX) 100 mg tablet 9 tablet 2 Sig: Take 1 tablet by mouth as needed for migraine headache (see administration instructions). Ezra Cordon LPN April 04, 2025 1:44 PM [facility] [facility] 04-04-2025 Miscellaneous Notes Prescription Refill Information The patient has been identified by name and date of : Yes Caregiver verified no other encounters exist for this prescription request: Yes Caregiver confirmed with patient/requestor that no other refills are due, in the near future, with this provider at this time: Yes The last office visit in the department: 03/22/25 Does the patient have a future office visit with this provider/department: Yes, 06/17/25 Requested Prescriptions Pending Prescriptions Disp Refills SUMAtriptan (IMITREX) 100 mg tablet 9 tablet 2 Sig: Take 1 tablet by mouth as needed for migraine headache (see administration instructions). Ezra Cordon LPN April 04, 2025 1:44 PM documented in this encounter [facility] 03-28-2025 Telephone encounter Note Reviewed. Hui Valdes APRN.TIMBO [facility] 03-28-2025 Miscellaneous Notes Reviewed. Hui Valdes APRN.TIMBO Prescription for Wellbutrin sent. Take one tablet daily. Hui Valdes APRN.CNP documented in this encounter [facility] 03-28-2025 Telephone encounter Note Prescription for Wellbutrin sent. Take one tablet daily. Hui Valdes APRN.CNP [facility] 03-25-2025 Telephone encounter Note ----- Message from Hui Valdes APRN.CNP sent at 03/25/2025 6:38 AM EDT ----- Her drug screen is negative. I would like to avoid a stimulant medication at this time though. I would recommend we try Wellbutrin. If she is agreeable I will send to pharmacy. If we have to move in the direction of a stimulant I would have her see p chandanchieduardo. Hui Valdes APRN.CNP [facility] 03-25-2025 Miscellaneous Notes ----- Message from Hui Valdes APRN.CNP sent at 03/25/2025 6:38 AM EDT ----- Her drug screen is negative. I would like to avoid a stimulant medication at this time though. I would recommend we try Wellbutrin. If she is agreeable I will send to pharmacy. If we have to move in the direction of a stimulant I would have her see mimi day. Hui Valdes APRN.CNP documented in this encounter [facility] 03-22-2025 Instructions Hui Valdes APRN.CNP - 03/22/2025 1:43 PM EDT - Complete the urine drug screen in the office today. - Sign the controlled-substance agreement before you leave. - After the drug screen returns normal, your prescription for a stimulant ADHD medication will be sent to [facility]. - Take the new medication with food to help prevent stomach upset. - Monitor for side effects: trouble sleeping, heart racing or palpitations, high blood pressure, sweating, diarrhea, decreased appetite, or dry mouth. If your heart rate increases or you develop any concerning symptoms, contact the office. - Return for a follow-up visit in about 4-5 weeks so we can assess how you re doing on the new medication. - Keep your physical exam appointment in June as previously scheduled. documented in this encounter [facility] 03-22-2025 Note HNO ID: [id number] Author: HUI VALDES APRN.CNP Service: ? Author Type: Nurse Practitioner Type: Progress Notes Filed: 03/22/2025 14:14 Note Text: 03/22/2025 Patient presents with: Medication Follow-up Recording using [employer] software for draft documentation of the visit was discussed with the patient/authorized corporate sales representative; all questions welcomed and answered. Patient/authorized corporate sales representative agreed to proceed SUBJECTIVE: This is a 39 year old that is here today for Above Complaints.. ADHD: - Currently taking Strattera for approximately one year; reports it is not effective. - Experiences brain fog, difficulty completing thoughts, and spacing out. - Has not tried other ADHD medications. - Requests to try Adderall. - Has not attended counseling recently. Depression: - Has not taken Effexor for about three weeks due to gastrointestinal upset post-surgery. - Took Effexor for one day recently, which exacerbated stomach issues; hesitant to restart. Recent Surgeries: - Underwent hernia repair and cholecystectomy recently. Weight Management: - Currently weighs 160 lbs; aiming for 140-150 lbs. - Reports weight loss has plateaued. PAST MEDICAL HISTORY Diagnosis Date Abnormal Pap smear of cervix 2019 ASCUS neg HPV ADHD (attention deficit hyperactivity disorder), combined type 08/11/2018 Anemia Anxiety 07/07/2018 Bipolar disorder, in partial remission, most recent episode mixed ([facility]) 10/04/2019 Depression, major, recurrent, moderate ([facility]) 07/07/2018 Diet controlled gestational diabetes mellitus (GDM) in second trimester ([facility]) 07/05/2022 Drug use disorder remission since 06/2019; methamphetamines, marijuana Gastritis due to Helicobacter species 11/26/2021 Genital warts 1-29-09 Never seen again GERD without esophagitis 02/08/2022 Grand multiparity 09/11/2022 - history 4 prior SVDs, this will be delivery #5 - admission CBC 11.9 Group B Streptococcus carrier, antepartum ([facility]) 07/26/2021 Sensitive to Vanc Hemorrhoids Herpes simplex [...] tract infection in , antepartum, second trimester ([facility]) 03/28/2022 Urogenital trichomoniasis 2017 Not totally sure date ALLERGIES Amoxicillin MEDICATIONS Current Outpatient Medications Medication Sig SUMAtriptan (IMITREX) 100 mg tablet Take 1 tablet by mouth as needed for migraine headache (see administration instructions). venlafaxine ER (EFFEXOR XR) 75 mg 24 hr capsule Take 1 capsule by mouth once daily. hydrocortisone (ANUSOL-HC) 2.5 % rectal cream by RECTAL route two times a day. solifenacin 10 mg tablet Take 0.5 tablets [...] date: 2000 Quit date: 2020 Years since quittin.5 Smokeless tobacco: Never Vaping Use Vaping status: current everyday user Substance Use Topics Alcohol use: Not Currently Drug use: Not Currently Types: Crystal Meth Comment: remission 06/2019 REVIEW OF SYSTEMS All other reviewed and negative other than HPI. OBJECTIVE: BP 142/82 Pulse 89 Resp 16 Wt 73.6 kg (162 lb 3.2 oz) LMP 10/11/2024 (Approximate) SpO2 98% BMI 27.84 kg/m? . Vital signs reviewed by this provider. GENERAL: NAD, alert and oriented SKIN: Unremarkable, no rash or skin lesions to exposed skin HEAD: Normocephalic EYES:conjunctiva clear LUNGS: Clear to auscultation bilaterally, no wheezes/rhonchi/rales. HEART: Regular rate and rhythm, no murmurs. No ectopy. 1. Adult ADHD (F90.9) - Current treatment with Strattera deemed ineffective after approximately one year of use; patient reports persistent cognitive fog, difficulty completing thoughts, and episodes of spacing out. - Discussed transition to stimulant medication, specifically Adderall, after completion of a urine drug screen. - Educated patient on potential side effects of Adderall, including insomnia, palpitations, hypertension, anorexia, xerostomia, hyperhidrosis, and potential for mild weight loss. - Advised patient to take medication with food to mitigate gastrointestinal side effects. - Discussed the addictive potential of stimulant medications, emphasizing the importance of adherence to (more content not included)... [facility] 03-22-2025 History of Presen t illness Narrative 03/22/2025 Patient presents with: Medication Follow-up Recording using [employer] software for draft documentation of the visit was discussed with the patient/authorized corporate sales representative; all questions welcomed and answered. Patient/authorized corporate sales representative agreed to proceed SUBJECTIVE: This is a 39 year old that is here today for Above Complaints.. ADHD: - Currently taking Strattera for approximately one year; reports it is not effective. - Experiences brain fog, difficulty completing thoughts, and spacing out. - Has not tried other ADHD medications. - Requests to try Adderall. - Has not attended counseling recently. Depression: - Has not taken Effexor for about three weeks due to gastrointestinal upset post-surgery. - Took Effexor for one day recently, which exacerbated stomach issues; hesitant to restart. Recent Surgeries: - Underwent hernia repair and cholecystectomy recently. Weight Management: - Currently weighs 160 lbs; aiming for 140-150 lbs. - Reports weight loss has plateaued. PAST MEDICAL HISTORY Diagnosis Date Abnormal Pap smear of cervix 2019 ASCUS neg HPV ADHD (attention deficit hyperactivity disorder), combined type 08/11/2018 Anemia Anxiety 07/07/2018 Bipolar disorder, in partial remission, most recent episode mixed ([facility]) 10/04/2019 Depression, major, recurrent, moderate ([facility]) 07/07/2018 Diet controlled gestational diabetes mellitus (GDM) in second trimester ([facility]) 07/05/2022 Drug use disorder remission since 06/2019; methamphetamines, marijuana Gastritis due to Helicobacter species 11/26/2021 Genital warts 1-29-09 Never seen again GERD without esophagitis 02/08/2022 Grand multiparity 09/11/2022 - history 4 prior SVDs, this will be delivery #5 - admission CBC 11.9 Group B Streptococcus carrier, antepartum ([facility]) 07/26/2021 Sensitive to Vanc Hemorrhoids Herpes simplex [...] tract infection in , antepartum, second trimester ([facility]) 03/28/2022 Urogenital trichomoniasis 2017 Not totally sure date ALLERGIES Amoxicillin MEDICATIONS Current Outpatient Medications Medication Sig SUMAtriptan (IMITREX) 100 mg tablet Take 1 tablet by mouth as needed for migraine headache (see administration instructions). venlafaxine ER (EFFEXOR XR) 75 mg 24 hr capsule Take 1 capsule by mouth once daily. hydrocortisone (ANUSOL-HC) 2.5 % rectal cream by RECTAL route two times a day. solifenacin 10 mg tablet Take 0.5 tablets [...] date: 2000 Quit date: 2020 Years since quittin.5 Smokeless tobacco: Never Vaping Use Vaping status: current everyday user Substance Use Topics Alcohol use: Not Currently Drug use: Not Currently Types: Crystal Meth Comment: remission 06/2019 REVIEW OF SYSTEMS All other reviewed and negative other than HPI. OBJECTIVE: BP 142/82 Pulse 89 Resp 16 Wt 73.6 kg (162 lb 3.2 oz) LMP 10/11/2024 (Approximate) SpO2 98% BMI 27.84 kg/m . Vital signs reviewed by this provider. GENERAL: NAD, alert and oriented SKIN: Unremarkable, no rash or skin lesions to exposed skin HEAD: Normocephalic EYES:conjunctiva clear LUNGS: Clear to auscultation bilaterally, no wheezes/rhonchi/rales. HEART: Regular rate and rhythm, no murmurs. No ectopy. 1. Adult ADHD (F90.9) - Current treatment with Strattera deemed ineffective after approximately one year of use; patient reports persistent cognitive fog, difficulty completing thoughts, and episodes of spacing out. - Discussed transition to stimulant medication, specifically Adderall, after completion of a urine drug screen. - Educated patient on potential side effects of Adderall, including insomnia, palpitations, hypertension, anorexia, xerostomia, hyperhidrosis, and potential for mild weight loss. - Advised patient to take medication with food to mitigate gastrointestinal side effects. - Discussed the addictive potential of stimulant medications, emphasizing the importance of adherence to prescribed use. - Ordered urine drug screen; results must be normal prior to initiating Adderall. - Patient to sign a controlled substance agreement, acknowledging understanding of medication risks and agreeing not to obtain similar medications from other sources. - Once urine drug screen results are confirmed normal, prescription for Adderall will be sent to patient's pharmacy ([facility]). - Follow-up appointment scheduled in approximately 5 weeks to assess medication efficacy and tolerability. Hui Valdes APRN.CNP Prescription instructions reviewed with patient as applicable. Patient advised if symptoms do not improve or if symptoms worsen sooner, to contact their primary care physician. Potential red flag symptoms discussed with the patient. Reviewed appropriate action plan to take if red flag symptoms occur. Patient agreeable to treatment plan. Medical Decision Making: Problems: Moderate: 1+ chronic illnesses with change Data: Unique test(s) ordered: 1 Risk: Moderate: Drug management Medical Decision Making Level: 4 - Moderate documented in this encounter [facility] 03-14-2025 Note HNO ID: [id number] Author: BRENTON EDWARDS LGC Service: ? Author Type: Genetic Counselor Type: Progress Notes Filed: 03/14/2025 16:27 Note Text: Esas sample is requested for her son's genetic testing. [facility] 03-14-2025 History of Presen t illness Narrative Esas sample is requested for her son's genetic testing. documented in this encounter [facility] 03-09-2025 Progress note [facility] 03-09-2025 Progress note Note Date/Time March 09, 2025 2:09pm [facility] [address] [place] [address] OFFICE VISIT Date of Service: 03/09/25 MR#: [id number] Acct: [id number] Name: DANE OLIVERA Rep #: [id number] : 1985 Provider: Dr. Griffin Rodriguez MD Age/Sex: 39/F Location: [facility] Status: Signed Intake Vital Signs 02/23/25 11:16 Height 5 ft 4.17 in Intake Visit Reasons: GALLBLADDER 6- Chief Complaint: gallbladder 02/23 Is patient in pain?: No Allergies amoxicillin Allergy (Unknown, Verified 03/09/25 14:02) unknown Medications ?Medication ?Instructions ?Recorded ?Confirmed ?Type atomoxetine 80 mg capsule 80 mg PO QAM 02/02/25 History metoprolol succinate 25 mg 25 mg PO QDAY HEART RATE 03/09/25 History tablet,extended release 24 hr solifenacin 10 mg tablet 5 mg PO QDAY OAB 02/02/25 History venlafaxine 75 mg capsule,extended 75 mg PO QAM 03/09/25 History release 24 hr acetaminophen 500 mg capsule 1,000 mg PO Q6H PRN pain 02/21/25 03/09/25 History sumatriptan succinate 100 mg tablet 100 mg PO Q2H PRN migraine 02/21/25 03/09/25 History Subjective Details: The patient is a 39-year-old female status post a recent ventral hernia repair with mesh and then followed by a laparoscopic cholecystectomy about a week or 2 later. She returns today for postoperative visit from both surgeries. She states overall she is doing well. She states that she had some epigastric musculoskeletal type pain soon after the surgery but this seems to be steadily improving. She denies any issues with diet or bowel functioning. All of her preoperative symptoms have resolved. She denies any questions or concerns Objective Details: She is alert and oriented x 3. She is in no acute distress. Abdomen is soft, nontender and nondistended. All of her incisions are healing well. No signs of erythema or infection. No evidence of hernia recurrence or persistence above the umbilicus. Coding Level of Care Code Global Post Op Diagnoses S/P cholecystectomy Z90.49 S/P hernia repair Z98.890; Z87.19 [facility] Medical History (Updated 03/09/25 @ 14:04 by Cait Hatch) Hernia Wears glasses Wears dentures Depression Bladder disease Low iron Back pain Migraine headache History of ulceration Shortness of breath on exertion Vapes nicotine containing substance Hx of Tachycardia IUD (intrauterine device) in place Surgical History (Updated 03/09/25 @ 14:04 by Cait Hatch) S/P cholecystectomy S/P hernia repair History of esophagogastroduodenoscopy (EGD) Previous section Family History Son Asthma Grandmother Diabetes Breast cancer Father Hypertension Social History Smoking Status: Current every day smoker tobacco type: e-cigarettes quit status: not considering quitting Assessment and Plan (No Qualifiers) Assessment and Plan (1) S/P cholecystectomy: Status: Acute Plan: The patient is a 39-year-old female status post a recent ventral hernia repair with mesh as well as a laparoscopic cholecystectomy. She is doing well postoperatively. I am recommending follow-up as needed. (2) S/P hernia repair: Status: Acute 03/09/25 [id number] <Electronically signed by Desean medellin MD> Date _ [facility]ese[facility] Signature: Date (if applicable) CC: ~ [facility] Work Phone: 1(525) 405-360306-12-2025 Consult note [facility] Medical Records Department [address] [place] [address] Anesthesia Postop Eval I 02/23/25 1454 MR#: [id number] Acct: [id number] Name: DANE OLIVERA Rep #:[id number] : 1985 39 From: Twin SORENSEN PCP: Hui Valdes OPENER TENDER-C Status:ADM I N Y Race: C Location: [place] [address] Anesthesia: Postop Eval I Current Vital Signs Temperature: 97.2 F Pulse Rate: 103 Blood Pressure: 147/93 Respiratory Rate: 18 Pulse Ox: 94 Assessment Airway patent: Yes Spontaneous unlabored respirations: Yes nausea: No Vomiting: No Anesthesia Complication: No Fluid Hydration Crystalloid volume administer (ml): 1,000 Total IV fluid infused: 1,000 Progress Note Anesthesia document: Postop Eval 1 completed: Yes 02/23/25 1454 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 OPERATOR> Date _ [place] 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 OPERATOR Cosigner Signature: Date CC: ~ Signed [facility]06-12-2025 Consult note [facility] Medical Records Department [address] [place] [address] Anesthesia Postop Eval II 02/23/25 1530 MR#: [id number] Acct: [id number] Name: DANE OLIVERA Rep #:[id number] : 1985 39 From: Paul Cox MD PCP: KOSTA Gomez Status:ADM I N Y Race: C Location: [place] [address] Anesthesia Postop Eval I Sum Postop Eval Completion status Anesthesia document: Postop Eval 1 completed: Yes Anesthesia Postop Eval I Summary Anesthesia Postop Eval I Summary: Anesthesia Postop Eval I: Assessment Summary Airway patent Yes 02/23/25 14:54 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 OPERATOR.TNES Spontaneous unlabored Yes 02/23/25 14:54 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 OPERATOR.TNES respirations Mental status nausea No 02/23/25 14:54 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 OPERATOR.TNES Vomiting No 02/23/25 14:54 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 OPERATOR.TNES Anesthesia Postop Eval I: Fluid Summary Crystalloid volume administer 1,000 02/23/25 14:54 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 OPERATOR.TNES (ml) Colloids volume administered ( ml) Blood Product volume administered (ml) Total IV fluid infused 1,000 02/23/25 14:54 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 OPERATOR.TNES Anesthesia Postop Eval I: Summary Notes Anesthesia Complication No 02/23/25 14:54 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 OPERATOR.TNES Anesthesia Complication Comment: Post-operative progress note Anesthesia: Postop Eval II Evaluation Mental status: Awake Pain Level: 0 nausea: No Vomiting: No 02/23/25 1530 > Date _ Paul Cardoza Signature: Date CC: ~ Signed [facility]06-12-2025 Discharge summary Author Desean Rodriguez [facility] Note Date/Time February 24, 2025 8:14 am [facility] Medical Records Department [address] [place] [address] Discharge Summary 02/24/25 0808 MR#: [id number] Acct: [id number] Name: DANE OLIVERA Rep #:[id number] : 1985 39 From: Desean Rodriguez MD PCP: KOSTA Gomez Status:ADM I N [id number] Date of Admission: 02/22/25 Date of Discharge: 02/24/25 Primary Care Physician: KOSTA Gomez Reason For Visit: ACUTE CHOLECYSTITIS Diagnosis Discharge Diagnosis (1) Acute cholecystitis: Status: Acute Code(s): K81.0 - Acute cholecystitis Plan: The patient is postoperative day 7 from ventral hernia repair with Dr. Rodriguez. Candida discussed the case with him this morning. one of us will take her for laparoscopic cholecystectomy this afternoon. Continue n.p.o. with antibiotics. Jerrell Garcia MD Pager: [facility] [address] [place] [address], [address] [place] [address] Office: Medications at Discharge Home Medications atomoxetine 80 mg capsule 80 mg PO QAM 02/02/25 metoprolol succinate 25 mg tablet,extended release 24 hr 25 mg PO QDAY HEART RATE 02/02/25 solifenacin 10 mg tablet 5 mg PO QDAY OAB 02/02/25 venlafaxine 75 mg capsule,extended release 24 hr 75 mg PO QAM 02/02/25 acetaminophen 500 mg capsule 1,000 mg PO Q6H PRN pain 02/21/25 sumatriptan succinate 100 mg tablet 100 mg PO Q2H PRN migraine 02/21/25 oxycodone-acetaminophen 5 mg-325 mg tablet (Percocet) 1 tab PO Q8H PRN pain 4 days #10 tabs 02/24/25 Hospital Course Operations cholecystecomy Summary of Care Provided Minutes Spent on Discharge: 15 Hospital Course: Patient is a 49-year-old female who recently underwent a ventral hernia repair with mesh. About a week later she developed right upper quadrant pain and presented to the ER. She was found have acute cholecystitis. I offered her laparoscopic cholecystectomy as treatment. We discussed the details of the planned procedure and she wished to proceed. Surgery was successfully performed. She feels much better today and is anticipating discharge later thismorning. She is tolerating diet and pain is well-controlled. Physical Exam Narrative She is alert and oriented x 3. She is in no acute distress. Abdomen is soft and appropriately tender. Binder is in place Weight / BMI Weight Weight: 165 lb 12.602 oz Body Mass Index (BMI) 28.3 ABG / Lab / Microbiology Data 02/22/25 06:21 02/22/25 06:21 Radiography Diagnostic Testing: Radiology Impression Cholangiogram 02/23/25 14:10 IMPRESSION: Unremarkable intraoperative cholangiogram. [facility] Inst[facility] Discharge Diet: Light diet - advance as tolerated Discharge Activity: Return to Normal Activity and May Shower May shower in (days): 1 Ice area for (Minutes): 30 Lifting Restrictions: No lifting pushing or pulling more than 20 pounds for 6 weeks Additional Activity Instructions: Wear binder for comfort Call your doctor if your incision/area has: Continuous Slow Oozing, Sudden Increased Bleeding, Increased Pain/ Swelling, Increased Redness, Foul Smelling Discharge and Swelling at the incision site Call your doctor if you observe: Fever of 101 or Higher DC O2, CPAP, BIPAP Needs Home O2 Discharge instructions: No Additional Instructions: Follow-up with Dr. Rodriguez in 2 weeks Meaningful Use Info Meaningful Use Meaningful Use Diagnoses (Choose all that apply): None applicable Ischemic Stroke Statin Dosing Therapy Reference: STATIN DOSE THERAPY REFERENCE: * Patients > 75 years receive moderate or high dose statin therapy. * Patients 75 years or YOUNGER should receive HIGH intensity statin dose unless contraindicated. You will be required to document reason for non-treatment if statin daily dose does not meet guidelines. HIGH DOSE STATIN THERAPY DAILY Atorvastatin > than or = to 40 mg Rosuvastatin > than or = to 20 mg Amlodipine + Atorvastatin > than or = to 2.5/40 mg Ezetimibe + Simvastatin 10/80 mg Simvastatin 80mg Discharge Plan Admission Admit Date/Time: 02/22/25 04:04 Primary Reason for Your Visit: Acute cholecystitis Attending Provider: Jerrell Garcia Primary Care Provider: Hui Valdes NP Discharge Orders/Prescriptions Prescriptions: New oxycodone-acetaminophen [Percocet] 5-325 mg tablet 1 tab PO Q8H PRN (Reason: pain) 4 Days Qty: 10 0RF Continued solifenacin 10 mg tablet 5 mg PO QDAY atomoxetine 80 mg capsule 80 mg PO QAM venlafaxine 75 mg capsule,extended release 24hr 75 mg PO QAM metoprolol succinate 25 mg tablet extended release 24 hr 25 mg PO QDAY sumatriptan succinate 100 mg tablet 100 mg PO Q2H PRN (Reason: migraine) acetaminophen 500 mg capsule 1,000 mg PO Q6H PRN (Reason: pain) Referrals / Follow Up: Hui Valdes NP, OPENER TENDER-C [Primary Care Provider] - Disposition Disposition (needs filled in before D/C Order can be placed): Home, Self Care 02/24/25813 <Electronically signed by Desean Rodriguez MD> Cosigner Signature (if applicable): CC: KOSTA Valdes; Dr. Desean Rodriguez MD~ Signed [facility] Work Phone: 1(871) 564-972406-12-2025 Discharge summary [facility] Medical Records Department [address] [place] [address] Discharge Summary 02/24/25 0808 MR#: [id number] Acct: [id number] Name: DANE OLIVERA Rep #:[id number] : 1985 39 From: Desean Rodriguez MD PCP: KOSTA Gomez Status:ADM I N Location: [facility] [id number] Providers Date of Admission: 02/22/25 Date of Discharge: 02/24/25 Primary Care Physician: KOSTA Gomez Reason For Visit: ACUTE CHOLECYSTITIS Diagnosis Discharge Diagnosis (1) Acute cholecystitis: Status: Acute Code(s): K81.0 - Acute cholecystitis Plan: The patient is postoperative day 7 from ventral hernia repair with Dr. Rodriguez. Candida discussed the case with him this morning. one of us will take her for laparoscopic cholecystectomy this afternoon. Continue n.p.o. with antibiotics. Jerrell Garcia MD Pager: [facility] [address] [place] [address], [address] [place] [address] Office: Medications at Discharge Home Medications atomoxetine 80 mg capsule 80 mg PO QAM 02/02/25 metoprolol succinate 25 mg tablet,extended release 24 hr 25 mg PO QDAY HEART RATE 02/02/25 solifenacin 10 mg tablet 5 mg PO QDAY OAB 02/02/25 venlafaxine 75 mg capsule,extended release 24 hr 75 mg PO QAM 02/02/25 acetaminophen 500 mg capsule 1,000 mg PO Q6H PRN pain 02/21/25 sumatriptan succinate 100 mg tablet 100 mg PO Q2H PRN migraine 02/21/25 oxycodone-acetaminophen 5 mg-325 mg tablet (Percocet) 1 tab PO Q8H PRN pain 4 days #10 tabs 02/24/25 Hospital Course Operations cholecystecomy Summary of Care Provided Minutes Spent on Discharge: 15 Hospital Course: Patient is a 49-year-old female who recently underwent a ventral hernia repair with mesh. About a week later she developed right upper quadrant pain and presented to the ER. She was found have acute cholecystitis. I offered her laparoscopic cholecystectomy as treatment. We discussed the details of the planned procedure and she wished to proceed. Surgery was successfully performed. She feels much better today and is anticipating discharge later thismorning. She is tolerating diet and pain is well-controlled. Physical Exam Narrative She is alert and oriented x 3. She is in no acute distress. Abdomen is soft and appropriately tender. Binder is in place Weight / BMI Weight Weight: 165 lb 12.602 oz Body Mass Index (BMI) 28.3 ABG / Lab / Microbiology Data 02/22/25 06:21 02/22/25 06:21 Radiography Diagnostic Testing: Radiology Impression Cholangiogram 02/23/25 14:10 IMPRESSION: Unremarkable intraoperative cholangiogram. Reading Location: [place] [address] D/C Instructions Discharge Diet: Light diet - advance as tolerated Discharge Activity: Return to Normal Activity and May Shower May shower in (days): 1 Ice area for (Minutes): 30 Lifting Restrictions: No lifting pushing or pulling more than 20 pounds for 6 weeks Additional Activity Instructions: Wear binder for comfort Call your doctor if your incision/area has: Continuous Slow Oozing, Sudden Increased Bleeding, Increased Pain/ Swelling, Increased Redness, Foul Smelling Discharge and Swelling at the incision site Call your doctor if you observe: Fever of 101 or Higher DC O2, CPAP, BIPAP Needs Home O2 Discharge instructions: No Additional Instructions: Follow-up with Dr. Rodriguez in 2 weeks Meaningful Use Info Meaningful Use Meaningful Use Diagnoses (Choose all that apply): None applicable Ischemic Stroke Statin Dosing Therapy Reference: STATIN DOSE THERAPY REFERENCE: * Patients > 75 years receive moderate or high dose statin therapy. * Patients 75 years or YOUNGER should receive HIGH intensity statin dose unless contraindicated. You will be required to document reason for non-treatment if statin daily dose does not meet guidelines. HIGH DOSE STATIN THERAPY DAILY Atorvastatin > than or = to 40 mg Rosuvastatin > than or = to 20 mg Amlodipine + Atorvastatin > than or = to 2.5/40 mg Ezetimibe + Simvastatin 10/80 mg Simvastatin 80mg Discharge Plan Admission Admit Date/Time: 02/22/25 04:04 Primary Reason for Your Visit: Acute cholecystitis Attending Provider: Jerrell Garcia Primary Care Provider: Hui Valdes NP Discharge Orders/Prescriptions Prescriptions: New oxycodone-acetaminophen [Percocet] 5-325 mg tablet 1 tab PO Q8H PRN (Reason: pain) 4 Days Qty: 10 0RF Continued solifenacin 10 mg tablet 5 mg PO QDAY atomoxetine 80 mg capsule 80 mg PO QAM venlafaxine 75 mg capsule,extended release 24hr 75 mg PO QAM metoprolol succinate 25 mg tablet extended release 24 hr 25 mg PO QDAY sumatriptan succinate 100 mg tablet 100 mg PO Q2H PRN (Reason: migraine) acetaminophen 500 mg capsule 1,000 mg PO Q6H PRN (Reason: pain) Referrals / Follow Up: Hui Valdes NP, NP-C [Primary Care Provider] - Disposition Disposition (needs filled in before D/C Order can be placed): Home, Self Care 02/24/25813 Cosigner Signature (if applicable): CC: KOSTA Valdes; Dr. Desean Rodriguez MD~ Signed [facility]06-12-2025 [facility] Medical Records Department [address] [place] [address] Discharge Summary 02/24/25807 MR#: [id number] Acct: [id number] Name: DANE OLIVERA Rep #: [id number] : 1985 39 From: Desean Rodriguez MD PCP: KOSTA Gomez Status:ADM IN Location: [facility] DA210-4 Providers Date of Admission: 02/22/25 Date of Discharge: 02/24/25 Primary Care Physician: KOSTA Gomez Reason For Visit: ACUTE CHOLECYSTITIS Diagnosis Discharge Diagnosis (1) Acute cholecystitis: Status: Acute Code(s): K81.0 - Acute cholecystitis Plan: The patient is postoperative day 7 from ventral hernia repair with Dr. Rodriguez. I will discussed the case with him this morning. one of us will take her for laparoscopic cholecystectomy this afternoon. Continue n.p.o. with antibiotics. Jerrell Garcia MD Pager: [facility] [address] [place] [address], [address] [place] [address] Office: Medications at Discharge Home Medications atomoxetine 80 mg capsule 80 mg PO QAM 02/02/25 metoprolol succinate 25 mg tablet,extended release 24 hr 25 mg PO QDAY HEART RATE 02/02/25 solifenacin 10 mg tablet 5 mg PO QDAY OAB 02/02/25 venlafaxine 75 mg capsule,extended release 24 hr 75 mg PO QAM 02/02/25 acetaminophen 500 mg capsule 1,000 mg PO Q6H PRN pain 02/21/25 sumatriptan succinate 100 mg tablet 100 mg PO Q2H PRN migraine 02/21/25 oxycodone-acetaminophen 5 mg-325 mg tablet (Percocet) 1 tab PO Q8H PRN pain 4 days #10 tabs 02/24/25 Hospital Course Operations cholecystecomy Summary of Care Provided Minutes Spent on Discharge: 15 Hospital Course: Patient is a 49-year-old female who recently underwent a ventral hernia repair with mesh. About a week later she developed right upper quadrant pain and presented to the ER. She was found have acute cholecystitis. I offered her laparoscopic cholecystectomy as treatment. We discussed the details of the planned procedure and she wished to proceed. Surgery was successfully performed. She feels much better today and is anticipating discharge later this morning. She is tolerating diet and pain is well-controlled. Physical Exam Narrative She is alert and oriented x 3. She is in no acute distress. Abdomen is soft and appropriately tender. Binder is in place Weight / BMI Weight Weight: 165 lb 12.602 oz Body Mass Index (BMI) 28.3 ABG / Lab / Microbiology Data 02/22/25 06:21 02/22/25 06:21 Radiography Diagnostic Testing: Radiology Impression Cholangiogram 02/23/25 14:10 IMPRESSION: Unremarkable intraoperative cholangiogram. Reading Location: [facility]-1 D/C Instructions Discharge Diet: Light diet - advance as tolerated Discharge Activity: Return to Normal Activity and May Shower May shower in (days): 1 Ice area for (Minutes): 30 Lifting Restrictions: No lifting pushing or pulling more than 20 pounds for 6 weeks Additional Activity Instructions: Wear binder for comfort Call your doctor if your incision/area has: Continuous Slow Oozing, Sudden Increased Bleeding, Increased Pain/ Swelling, Increased Redness, Foul Smelling Discharge and Swelling at the incision site Call your doctor if you observe: Fever of 101 or Higher DC O2, CPAP, BIPAP Needs Home O2 Discharge instructions: No Additional Instructions: Follow-up with Dr. Rodriguez in 2 weeks Meaningful Use Info Meaningful Use Meaningful Use Diagnoses (Choose all that apply): None applicable Ischemic Stroke Statin Dosing Therapy Reference: STATIN DOSE THERAPY REFERENCE: * Patients > 75 years receive moderate or high dose statin therapy. * Patients 75 years or YOUNGER should receive HIGH intensity statin dose unless contraindicated. You will be required to document reason for non-treatment if statin daily dose does not meet guidelines. HIGH DOSE STATIN THERAPY DAILY Atorvastatin > than or = to 40 mg Rosuvastatin > than or = to 20 mg Amlodipine + Atorvastatin > than or = to 2.5/40 mg Ezetimibe + Simvastatin 10/80 mg Simvastatin 80mg Discharge Plan Admission Admit Date/Time: 02/22/25 04:04 Primary Reason for Your Visit: Acute cholecystitis Attending Provider: Jerrell Garcia Primary Care Provider: Hui Valdes NP Discharge Orders/Prescriptions Prescriptions: New oxycodone-acetaminophen [Percocet] 5-325 mg tablet 1 tab PO Q8H PRN (Reason: pain) 4 Days Qty: 10 0RF Continued solifenacin 10 mg tablet 5 mg PO QDAY atomoxetine 80 mg capsule 80 mg PO QAM venlafaxine 75 mg capsule,extended release 24hr 75 mg PO QAM metoprolol succinate 25 mg tablet extended release 24 hr 25 mg PO QDAY sumatriptan succinate 100 mg tablet 100 mg PO (more content not included)...[facility]06-11-2025 Consult note Author Paul Cox [facility] Note Date/Time February 24, 2025 11:1 7am [facility] Medical Records Department [address] [place] [address] Anesthesia Postop Eval II 02/23/25 1530 MR#: [id number] Acct: [id number] Name: DANE OLIVERA Rep #:[id number] : 1985 39 From: Paul Cox MD PCP: Hui Valdes OPENER TENDER-C Status:ADM I N Y Race: C Location: [facility] MS311 -1 Anesthesia Postop Eval I Sum Postop Eval Completion status Anesthesia document: Postop Eval 1 completed: Yes Anesthesia Postop Eval I Summary Anesthesia Postop Eval I Summary: Anesthesia Postop Eval I: Assessment Summary Airway patent Yes 02/23/25 14:54 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 OPERATOR.TNES Spontaneous unlabored Yes 02/23/25 14:54 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 OPERATOR.TNES respirations Mental status nausea No 02/23/25 14:54 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 OPERATOR.TNES Vomiting No 02/23/25 14:54 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 OPERATOR.TNES Anesthesia Postop Eval I: Fluid Summary Crystalloid volume administer 1,000 02/23/25 14:54 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 OPERATOR.TNES (ml) Colloids volume administered ( ml) Blood Product volume administered (ml) Total IV fluid infused 1,000 02/23/25 14:54 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 OPERATOR.TNES Anesthesia Postop Eval I: Summary Notes Anesthesia Complication No 02/23/25 14:54 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 OPERATOR.TNES Anesthesia Complication Comment: Post-operative progress note Anesthesia: Postop Eval II Evaluation Mental status: Awake Pain Level: 0 nausea: No Vomiting: No 02/23/25 1530 <Electronically signed by Paul Cox MD > Date _ Paul Cox MD Cosigner Signature: Date CC: ~ Signed [facility] Work Phone: 1(507) 671-436806-11-2025 Consult note Author Twin Choudharybitt [facility] Note Date/Time February 24, 2025 11:1 7am [facility] Medical Records Department [address] [place] [address] Anesthesia Postop Eval I 02/23/25 1454 MR#: [id number] Acct: [id number] Name: DANE OLIVERA Rep #:[id number] : 1985 39 From: Twin SORENSEN PCP: Hui Valdes OPENER TENDER-Princess Status:ADM I N Y Race: C Location: [place] [address] Anesthesia: Postop Eval I Current Vital Signs Temperature: 97.2 F Pulse Rate: 103 Blood Pressure: 147/93 Respiratory Rate: 18 Pulse Ox: 94 Assessment Airway patent: Yes Spontaneous unlabored respirations: Yes nausea: No Vomiting: No Anesthesia Complication: No Fluid Hydration Crystalloid volume administer (ml): 1,000 Total IV fluid infused: 1,000 Progress Note Anesthesia document: Postop Eval 1 completed: Yes 02/23/25 1454 <Electronically signed by Twin Kenyon 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 OPERATOR> Date _ Twin Kenyon 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 OPERATOR Cosigner Signature: Date CC: ~ Signed [facility] Work Phone: 1(154) 371-166906-11-2025 Procedure note [facility] Medical Records Department [address] [place] [address] Operative Report 02/23/25 1454 MR#: [id number] Acct: [id number] Name: DANE OLIVERA Rep #:[id number] : 1985 39 From: Desean Rodriguez MD PCP: Hui Valdes OPENER TENDER-C Status:ADM I N Location: [place] [address] Problems Associated Problem List Diagnoses (1) Acute cholecystitis: Procedures Digestive 40xxx-49xxx: [address] CHOLECYSTECTOMY; WITH CHOLANGIOGRAPHY Operative Report (Standard) Operative Information Date of Procedure: 02/23/25 Pre-Operative Diagnosis: Acute cholecystitis Post-Operative Diagnosis: Acute cholecystitis Surgery/Procedure Performed: Laparoscopic cholecystectomy with intraoperative cholangiograms alternative financing specialist: Yes Store Gift Wrap Associate: Estrella Cooper Tasks completed by special event assistant: Closing, Retracting and Other Additional wet process assistant head miller?: No Type of Anesthesia: General and Local RN Documented Start/Stop Times: Operation Date: 02/23/25 13:00 Case Time Into Pre-Op 02/23/25 12:21 Anesthesia Start 02/23/25 13:14 Into Room 06/11/25 13:14 Procedure Start 02/23/25 13:34 Procedure End 02/23/25 14:41 Anesthesia End 02/23/25 14:46 Out of Room 02/23/25 14:46 Procedure Start Time: 13:34 Procedure Stop Time: 14:41 Select all DRAINS/GRAFTS/IMPLANTS that apply: None Estimated Blood Loss: 10 mL Specimen collected: Yes Description of specimen(s) removed: Gallbladder and contents Description of surgery: The patient is a 39-year-old female recently seen through the office originally for an umbilical hernia. She underwent hernia repair with mesh about a week ago. Less than a week after the surgery shepresented to the emergency room with right upper quadrant pain. Imaging showed gallbladder wall thickening consistent with acute cholecystitis. Plans were made to admit the patient and plan for cholecystectomy. Preoperatively, we discussed the details of the planned procedure including the risks benefits and alternatives. She wished to proceed. She was brought to the operating room today following informed consent. She was placed supine on the operative table with arms outstretched arm boards. General endotracheal anesthesia was induced. Once adequately sedated, the abdomen was prepped and draped in the usual sterile manner. Due tothe fact that she had a previous midline incision just abovethe umbilicus, an optical trocar was placed on the right side of the abdomen. This was a 5 mm trocar. This was placed without incident. Once in place the abdomen is then fully insufflated with CO2 gas. A 5 mm 0 degree scope was inserted. There wereno signs of bowel or vascular injury. Another 5 mm trocar was placed just medial to this initial trocar. Another 5 mm trocar was placed in the lower midline for the 5 mm scope. Lastly a 10 mm trocar was placed under direct visualization in the epigastric region. All of these were placed under direct visualization without difficulty. The gallbladder was identified. It was distended and elongated. It was grasped near the fundus and was reflected in a cephalad direction. The infundibulum of the gallbladder was identified. There was some filmy yet edematous adhesions to the undersurface of the gallbladder. These were carefully taken down. The peritoneum on either side of the gallbladder was then scored using electrocautery. This provided better exposureto the infundibulum and cystic duct/cystic artery region. The duct and artery were then dissected out circumferentially. The lower portion of the gallbladderwas dissected off of the liver bed in order to obtain a critical view of safety. There were 2 and only 2 structures visible going to and from the gallbladder. The cystic duct was clipped proximally with a 10 mm clip fire coordinator. A small ductotomy was made using curved scissors. Cholangiogram catheter was then inserted and cholangiograms were then performed using Omnipaque. This showed good opacification of the biliary tree without any o bvious filling defects. Thecholangiogram catheter was then removed. 3 metallic clips were placed proximally on the duct. This was then transected. The artery was clipped and transected in a similar manner. The gallbladder was then cauterized off the undersurface of the liver. There was quite a bit of edema in the tissue planes. Once the gallbladder was free was placed into a bag and brought out through the10 mm trocar site. The trocar was then replaced. The right upper quadrant was then copiously irrigated with a liter of saline. There is no spillage of bile during the course of the operation. Hemostasis was excellent. There was some adhesions to the undersurface of the mesh. These adhesions were left in place in order to protect the mesh from any potential bacteria from the gallbladder. The fascia at the 10 mm trocar site was closed using no PDS with the aid of the fascial closure device. The remaining trocars were opened up and insufflation was allowed to escape. Local anesthetic was injected into each of the incisions. The incisions were then closed with 4-0 Vicryl. Skin glue wasapplied as dressing. She was awakened from anesthesia and taken recovery in good condition. Surgical Findings: Normal cholangiogram Complications Complications: No Admit VTE Documentation VTE Present on Admission: No VTE Mechan Device Prophylaxis: SCD's VTE Pharm Prophylaxis ordered?: Yes 02/23/25 2148 Cosigner Signature (if applicable): CC: KOSTA Ames Podlogar; Dr. Desean Rodriguez MD~ Signed [facility]06-11-2025 Radiology Diagnostic study note [facility] Imaging Services [address] [place], [place] [id number] Cholangiogram/ O R,Initial MR#: [id number] Acct: [id number] Name: DANE OLIVERA Rep #: [id number] : 1985 F 39 From: Serjio Curry MD PCP: KOSTA Gomez Status: ADM I N Study:Cholangiogram/ O R,Initial Date of Exam : 02/23/25 Exam# [id number] Ordering Dr: Jerrell Shipman MD PROCEDURE: CHOLANGIOGRAM/ O R,INITIAL 02/23/2025 REASON FOR EXAM: LAP JOSSELYN W/ IOC TECHNIQUE: Intraoperative cholangiogram was performed by the surgeon. Imaging was submitted. Radiation report: 7.2 seconds of fluoroscopy. 3.83 mGy. COMPARISON: None FINDINGS: Contrast was injected. There is opacification of the intra and extrahepatic biliary ducts. No radiographic abnormality is seen. There is free flow of contrast into the duodenum. RAD/Cholangiogram/ O R,Initial IMPRESSION: Unremarkable intraoperative cholangiogram. Reading Location: [place] [address] CC: OPENER TENDER-C Hui Valdes; Dr. Jerrell Garcia MD ~ Cost Control Analyst: Signed [facility]06-11-2025 Consult note Author Paul mary [facility] Note Date/Time February 23, 2025 12:3 9pm [facility] Medical Records Department [address] [place] [address] Pre-Anesthesia Evaluation 02/23/25 1238 MR#: [id number] Acct: [id number] Name: DANE OLIVERA Rep #:[id number] : 1985 39 From: Paul Cox MD PCP: KOSTA Gomez Status:ADM I N Y Race: C Location: [facility] MS311 -1 ASA Classification* ASA Classification ASA Classification: 2 Assessment & Plan Anesthesia* Anesthesia Assessment Anesthesia [...] risk assessments. Anesthesia Type Anesthesia Type: General Anesthesia Focused Assessment* Temperature: 98.6 F Pulse Rate: 85 Blood Pressure: 140/86 Respiratory Rate: 16 Pulse Ox: 100 Airway Assessment Mouth opens: >3 cm Mallampati Score: II Labs Anesthesia Preop lab: CBC WBC 11.3 K/mm3 (4.4-11.0) H 02/22/25 06:21 5 RBC 3.58 M/mm3 (4.2-5.4) L 02/22/25 06:21 02/22/25 Hgb 11.1 g/dL (12.0-15.0) L 02/22/25 06:21 5 Hct 32.8 % (37-47) L 02/22/25 06:21 02/22/25 Plt Count 362 K/mm3 (150-450) 02/22/25 06:21 02/22/25 CHEMISTRY Potassium 3.3 mmol/L (3.3-5.1) 02/22/25 06:21 02/22/25 Sodium 141 mmol/L (133-145) 02/22/25 06:21 02/22/25 BUN 8 mg/dL (4-19) 02/22/25 06:21 02/22/25 Creatinine 0.67 mg/dL (0.70-1.20) L 02/22/25 06:21 Glucose 85 mg/dL (70-99) 02/22/25 06:21 02/22/25 COAG Urine Test Negative Negative 02/22/25 21:17 02/22/25 Pre-Assessment Diagnosis/Proposed Procedure Planned Operative Procedure(s): Laparoscopic cholecystectomy with cholangiograms Anesthesia History 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 When Was Last Pacemaker Check QUESTION #4 FULL TEXT: You/Your Family Experience fever (hyperthermia) with Anesthesia Last Oral Intake Last Oral intake: Last Oral Intake NPO since 00:00 02/23/25 11:16 Meds taken in AM with sips of No 02/23/25 11:16 water? 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 Female HX of Motion Sickness HX of N/V After Surgery Non-Smoker Duration of Surgery greater than 60 minutes Number of Risk Factors PONV Score Height & Weight Height & Weight: Anesthesia: Height & Weight Height 5 ft 4.17 in 02/23/25 11:16 Weight: 75.2 kg 02/23/25 11:16 Body Mass Index (BMI) 28.3 02/23/25 11:16 Respiratory Assessment Respiratory Assessment - heavy machinery operator: Respiratory Tract Infection Hx - heavy machinery operator Hx Respiratory Tract Infection No 02/22/25 06:21 STOP Sleep Apnea STOP Sleep Apnea - heavy machinery operator: STOP Sleep Apnea - heavy machinery operator Hx Hypertension No 02/22/25 04:45 Hx Sleep Apnea No 02/22/25 04:45 CPAP BIPAP Do you snore loudly (louder No 02/22/25 04:45 than talking or can be heard Do you often feel tired/ No 02/22/25 04:45 fatigued/ sleepy during daytime? Has anyone observed you stop No 02/22/25 04:45 breathing during sleep? STOP Results Negative 02/22/25 04:45 QUESTION #5 FULL TEXT : Do you snore loudly (louder than talking or can be heard through closed doors)? Tobacco Use History Tobacco Use History - heavy machinery operator: Tobacco Use History - heavy machinery operator Tobacco Use Smoking Status Current every day smoker 02/22/25 08:11 Hx Tobacco Use Yes 02/22/25 04:45 Years Smoking Packs Smoked per Day Smoking Cessation Date was within the last 15 years Hx Smoking Cessation Date Hx Smoking Cessation Counseling Hematologic Medial History Hematologic Hx - heavy machinery operator: Hematologic Medical Hx - certified medical dosimetrist Hx of Blood Transfusion No 02/22/25 04:45 Hx of Transfusion in last 3 No 02/22/25 04:45 Months Date of Last Transfusion (if within last 3 months) Ever experience any problems No 02/22/25 04:45 with transfusion(s)? Specify any problems Hx of Preganancy in last 3 No 02/22/25 04:45 Months Nurse Filling Out Transfusion JAYDEN 02/22/25 04:45 & Questions: Date: 02/22/25 02/22/25 04:45 Time: 04:45 02/22/25 04:45 Patient unable to answer at this time (ie. confused, unrespo /Reproduction History /Reproductive History - heavy machinery operator: /Reproductive Hx- heavy machinery operator Hx Now No 02/22/25 06:21 Gestational Age (in weeks): EDC: Hx Hx Para Hx Section SAB No 02/22/25 06:21 Active Medications Active Medications: Current Medications Generic Name Dose Route Start Last Admin Trade Name Freq PRN Reason Stop Dose Admin Sodium Chloride 1,000 mls @ 125 mls/hr 02/22/25 04:05 02/23/25 02:01 IV 125 mls/hr .Q8H MELANIE Administration Ciprofloxacin 400 mg in 200 mls @ 200 mls/hr 02/22/25 10:00 02/23/25 10:25 Cipro IV Infused Q12 MELANIE Infusion Metronidazole 500 mg in 100 mls @ 100 mls/hr 02/22/25 10:00 02/23/25 06:47 Flagyl IV Infused Q8 MELANIE Infusion Sodium Chloride 250 mls @ 15 mls/hr 02/22/25 04:32 IV .[id number] PRN Saline Flush Sodium Chloride 250 mls @ 15 mls/hr 02/22/25 04:32 IV .[id number] PRN Additional IVPB Infusion Morphine Sulfate 2 - 4 mg 02/22/25 04:04 Morphine 2 Mg/Ml Syringe IV Q2H PRN PRN Pain Score 4-10 Morphine Sulfate 2 - 4 mg 02/22/25 04:11 02/22/25 17:45 Morphine 4 Mg/Ml Syringe IV 4 mg Q2H PRN PRN Administration Pain Score 4-10 Ondansetron HCl 4 mg 02/22/25 04:06 Ondansetron 4 Mg/2 Ml Vial IV Q6H PRN PRN NAUSEA/VOMITING Sodium Chloride 10 - 40 ml 02/22/25 04:04 02/22/25 17:44 0.9% Saline Lock 10 Ml Syringe IV 10 ml UD PRN Administration SALINE FLUSH Sodium Chloride 10 - 40 ml 02/22/25 04:06 0.9% Saline Lock 10 Ml Syringe IV UD PRN SALINE FLUSH Sodium Chloride 10 - 40 ml 02/22/25 04:32 0.9% Saline Lock 10 Ml Syringe IV UD PRN SALINE FLUSH Sumatriptan Succinate 6 mg 02/22/25 15:19 02/23/25 11:12 Sumatriptan 6 Mg/0.5 Ml Vial SC 6 mg BID PRN Administration HEADACHE PFSH Medical History Hernia Wears glasses Wears dentures Depression Bladder disease [...] Time amoxicillin Allergy Unknown unknown Verified 02/21/25 23:32 Family History Son Asthma Grandmother Diabetes Breast cancer Father Hypertension Surgical History History of esophagogastroduodenoscopy (EGD) Previous section Social History Smoking Status: Current every day smoker tobacco type: e-cigarettes quit status: not considering quitting Review of Systems (Anesthesia) ROS Narrative System reviewed and no additional complaints, except as documented. 02/23/25 1239 <Electronically signed by Paul Cox MD > Date _ Paul Cox MD Cosigner Signature: Date CC: ~ Signed [facility] Work Phone: [phone]) 105-956406-11-2025 Consult note [facility] Medical Records Department [address] [place] [address] Pre-Anesthesia Evaluation 02/23/25 1238 MR#: [id number] Acct: [id number] Name: DANE OLIVERA Rep #:[id number] : 1985 39 From: Paul Cox MD PCP: KOSTA Gomez Status:ADM I N Y Race: C Location: [place] [id number] ASA Classification* ASA Classification ASA Classification: 2 Assessment & Plan Anesthesia* Anesthesia Assessment Anesthesia [...] risk assessments. Anesthesia Type Anesthesia Type: General Anesthesia Focused Assessment* Temperature: 98.6 F Pulse Rate: 85 Blood Pressure: 140/86 Respiratory Rate: 16 Pulse Ox: 100 Airway Assessment Mouth opens: >3 cm Mallampati Score: II Labs Anesthesia Preop lab: CBC WBC 11.3 K/mm3 (4.4-11.0) H 02/22/25 06:21 5 RBC 3.58 M/mm3 (4.2-5.4) L 02/22/25 06:02/22/25 Hgb 11.1 g/dL (12.0-15.0) L 02/22/25 06:21 5 Hct 32.8 % (37-47) L 02/22/25 06:21 02/22/25 Plt Count 362 K/mm3 (150-450) 02/22/25 06:21 02/22/25 CHEMISTRY Potassium 3.3 mmol/L (3.3-5.1) 02/22/25 06:21 02/22/25 Sodium 141 mmol/L (133-145) 02/22/25 06:21 02/22/25 BUN 8 mg/dL (4-19) 02/22/25 06:21 02/22/25 Creatinine 0.67 mg/dL (0.70-1.20) L 02/22/25 06:21 Glucose 85 mg/dL (70-99) 02/22/25 06:21 02/22/25 COAG Urine Test Negative Negative 02/22/25 21:17 02/22/25 Pre-Assessment Diagnosis/Proposed Procedure Planned Operative Procedure(s): Laparoscopic cholecystectomy with cholangiograms Anesthesia History 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 When Was Last Pacemaker Check QUESTION #4 FULL TEXT: You/Your Family Experience fever (hyperthermia) with Anesthesia Last Oral Intake Last Oral intake: Last Oral Intake NPO since 00:00 02/23/25 11:16 Meds taken in AM with sips of No 02/23/25 11:16 water? 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 Female HX of Motion Sickness HX of N/V After Surgery Non-Smoker Duration of Surgery greater than 60 minutes Number of Risk Factors PONV Score Height & Weight Height & Weight: Anesthesia: Height & Weight Height 5 ft 4.17 in 02/23/25 11:16 Weight: 75.2 kg 02/23/25 11:16 Body Mass Index (BMI) 28.3 02/23/25 11:16 Respiratory Assessment Respiratory Assessment - heavy machinery operator: Respiratory Tract Infection Hx - heavy machinery operator Hx Respiratory Tract Infection No 02/22/25 06:21 STOP Sleep Apnea STOP Sleep Apnea - heavy machinery operator: STOP Sleep Apnea - heavy machinery operator Hx Hypertension No 02/22/25 04:45 Hx Sleep Apnea No 02/22/25 04:45 CPAP BIPAP Do you snore loudly (louder No 02/22/25 04:45 than talking or can be heard Do you often feel tired/ No 02/22/25 04:45 fatigued/ sleepy during daytime? Has anyone observed you stop No 02/22/25 04:45 breathing during sleep? STOP Results Negative 02/22/25 04:45 QUESTION #5 FULL TEXT : Do you snore loudly (louder than talking or can be heard through closeddoors)? Tobacco Use History Tobacco Use History - heavy machinery operator: Tobacco Use History - heavy machinery operator Tobacco Use Smoking Status Current every day smoker 02/22/25 08:11 Hx Tobacco Use Yes 02/22/25 04:45 Years Smoking Packs Smoked per Day Smoking Cessation Date was within the last 15 years Hx Smoking Cessation Date Hx Smoking Cessation Counseling Hematologic Medial History Hematologic Hx - heavy machinery operator: Hematologic Medical Hx - certified medical dosimetrist Hx of Blood Transfusion No 02/22/25 04:45 Hx of Transfusion in last 3 No 02/22/25 04:45 Months Date of Last Transfusion (if within last 3 months) Ever experience any problems No 02/22/25 04:45 with transfusion(s)? Specify any problems Hx of Preganancy in last 3 No 02/22/25 04:45 Months Nurse Filling Out Transfusion DREDICK 02/22/25 04:45 & Questions: Date: 02/22/25 02/22/25 04:45 Time: 04:45 02/22/25 04:45 Patient unable to answer at this time (ie. confused, unrespo /Reproduction History /Reproductive History - heavy machinery operator: /Reproductive Hx- heavy machinery operator Hx Now No 02/22/25 06:21 Gestational Age (in weeks): EDC: Hx Hx Para Hx Section SAB No 02/22/25 06:21 Active Medications Active Medications: Current Medications Generic Name Dose Route Start Last Admin Trade Name Freq PRN Reason Stop Dose Admin Sodium Chloride 1,000 mls @ 125 mls/hr 02/22/25 04:05 02/23/25 02:01 IV 125 mls/hr .Q8H MELANIE Administration Ciprofloxacin 400 mg in 200 mls @ 200 mls/hr 02/22/25 10:00 02/23/25 10:25 Cipro IV Infused Q12 MELANIE Infusion Metronidazole 500 mg in 100 mls @ 100 mls/hr 02/22/25 10:00 02/23/25 06:47 Flagyl IV Infused Q8 MELANIE Infusion Sodium Chloride 250 mls @ 15 mls/hr 02/22/25 04:32 IV .[id number] PRN Saline Flush Sodium Chloride 250 mls @ 15 mls/hr 02/22/25 04:32 IV .[id number] PRN Additional IVPB Infusion Morphine Sulfate 2 - 4 mg 02/22/25 04:04 Morphine 2 Mg/Ml Syringe IV Q2H PRN PRN Pain Score 4-10 Morphine Sulfate 2 - 4 mg 02/22/25 04:11 02/22/25 17:45 Morphine 4 Mg/Ml Syringe IV 4 mg Q2H PRN PRN Administration Pain Score 4-10 Ondansetron HCl 4 mg 02/22/25 04:06 Ondansetron 4 Mg/2 Ml Vial IV Q6H PRN PRN NAUSEA/VOMITING Sodium Chloride 10 - 40 ml 02/22/25 04:04 02/22/25 17:44 0.9% Saline Lock 10 Ml Syringe IV 10 ml UD PRN Administration SALINE FLUSH Sodium Chloride 10 - 40 ml 02/22/25 04:06 0.9% Saline Lock 10 Ml Syringe IV UD PRN SALINE FLUSH Sodium Chloride 10 - 40 ml 02/22/25 04:32 0.9% Saline Lock 10 Ml Syringe IV UD PRN SALINE FLUSH Sumatriptan Succinate 6 mg 02/22/25 15:19 02/23/25 11:12 Sumatriptan 6 Mg/0.5 Ml Vial SC 6 mg BID PRN Administration HEADACHE PFSH Medical History Hernia Wears glasses Wears dentures Depression Bladder disease [...] Time amoxicillin Allergy Unknown unknown Verified 02/21/25 23:32 Family History Son Asthma Grandmother Diabetes Breast cancer Father Hypertension Surgical History History of esophagogastroduodenoscopy (EGD) Previous section Social History Smoking Status: Current every day smoker tobacco type: e-cigarettes quit status: not considering quitting Review of Systems (Anesthesia) ROS Narrative System reviewed and no additional complaints, except as documented. 02/23/25 1239 > Date _ Paul Cox MD Cosigner Signature: Date CC: ~ Signed [facility]06-10-2025 History and physical note Author Jerrell Garcia [facility] Note Date/Time February 22, 2025 4:27 pm [facility] Medical Records Department [address] [place] [address] H&P Exam - Surgical 02/22/25 0710 MR#: [id number] Acct: [id number] Name: DANE OLIVERA Rep #:[id number] : 1985 39 From: Jerrell spears MD PCP: Hui Valdes OPENER TENDER-C Status:ADM I N Location: [facility] [id number] HPI - General General Date of Admission: 02/22/25 HPI Narrative DANE OLIVERA, is a 39 F who presents with abdominal pain. The patient is 1week postop from a an incarcerated ventral hernia repair. She was doing well until yesterday and started developing abdominal pain. She does state that she vomited before admission. She says she is not having a fever but she does describe chills. She does not have any pain in her lower abdomen. Her pain is in the right upper quadrant. [facility] Medical History (Updated 02/22/25 @ 04:47 by Trinity Paulino) Hernia Wears glasses Wears dentures Depression Bladder disease [...] Time amoxicillin Allergy Unknown unknown Verified 02/21/25 23:32 Family History Son Asthma Grandmother Diabetes Breast cancer Father Hypertension Surgical History History of esophagogastroduodenoscopy (EGD) Previous section Social History Smoking Status: Current every day smoker tobacco type: e-cigarettes quit status: not considering quitting ROS Constitutional Constitutional: Reports chills; Denies anorexia, fatigue or fever(s) Eyes Eyes: Denies blurry vision ENT HEENT: Denies abnormal hearing Respiratory/Chest Respiratory/Chest: Denies cough or dyspnea Gastrointestinal Gastrointestinal: Reports abdominal pain and vomiting; Denies change in bowel habits, coffee ground emesis or constipation Genitourinary Genitourinary: Denies change in urinary stream Musculoskeletal Musculoskeletal: Denies abnormal gait Integumentary Integumentary: Denies jaundice Neurologic Neurologic: Denies abnormal gait Psychiatric Psychiatric: Denies anxiety Endocrine Endocrinology: Denies flushing Vital Signs Vital Signs Vital Signs: 02/21/25 23:30 02/22/25 01:29 02/22/25 03:00 Temperature 98.1 F Temperature Source Oral Pulse Rate 84 70 72 Respiratory Rate 20 H 18 18 Blood Pressure 128/79 H 150/96 H 148/60 H Blood Pressure Mean 95 114 89 Blood Pressure Source Blood Pressure Position Blood Pressure Location Pulse Ox 100 99 Oxygen Delivery Method Room Air Room Air 02/22/25 04:06 02/22/25 04:50 Temperature 98.6 F 98 F Temperature Source Oral Pulse Rate 82 71 Respiratory Rate 16 16 Blood Pressure 155/92 H 137/78 H Blood Pressure Mean 113 97 Blood Pressure Source Monitor Blood Pressure Position Semi-Fowlers Blood Pressure Location Right Arm Pulse Ox 100 100 Oxygen Delivery Method Room Air Weight Weight: 165 lb 12.602 oz Body Mass Index (BMI) 28.4 Physical Exam Const oriented x3 and no apparent distress Resp normal respiratory effort Cardio regular rate and regular rhythm GI soft to palpation Palpation: tender RUQ Extremity normal to inspection Results Lab / Micro Data 02/22/25 00:48 02/22/25 00:48 Labs: Laboratory Results - last 24 hr 02/22/25 00:48: WBC 12.6 H, RBC 4.09 L, Hgb 12.7, Hct 37.5, MCV 91.7, MCH 31.1, MCHC 33.9, RDW Std Deviation 41.1, RDW Coeff of Concetta 12.3, Plt Count TNP, MPV 9.5, Immature Gran % (Auto) 0.200, Neut % (Auto) 66.6, Lymph % (Auto) 23.7, Villalba% (Auto) 7.2, Eos % (Auto) 1.5, Baso % (Auto) 0.8, Absolute Neuts (auto) 8.4 H, Absolute Lymphs (auto) 2.99, Nucleated RBC % 0, Differential Comment SCANNED, Platelet Estimate ADEQUATE, Sodium 139, Potassium 4.0, Chloride 105, Carbon Dioxide 21.6, Anion Gap 12, BUN 10, Creatinine 0.79, Estim Creat Clear Calc 95.38, Est GFR (MDRD) Non-Af 97, BUN/Creatinine Ratio 13.0, Glucose 92, Calcium 9.1, Total Bilirubin < 0.15, AST 38 H, ALT 18, Alkaline Phosphatase 59, Total Protein 6.6, Albumin 4.0, Globulin 2.6, Albumin/Globulin Ratio 1.6, Lipase 37 Imaging Radiology Impression Gallbladder Ultrasound 02/22/25 02:16 IMPRESSION: Findings suggest acute calculus cholecystitis. Gallbladder hydrops. Fatty hepatomegaly. Findings were discussed with Dr. Smith at 3:41 am Reading Location: [place] [address] Assessment & Plan Assessment/Plan (1) Acute cholecystitis: PLAN: The patient is postoperative day 7 from ventral hernia repair with Dr. Rodriguez. I will discussed the case with him this morning. one of us will take her for laparoscopic cholecystectomy this afternoon. Continue n.p.o. with antibiotics. Jerrell Garcia MD Pager: [facility] [address] [place] [address], [address] [place] [address] Office: 02/22/25 2458 <Electronically signed by Jerrell Garcia MD> Cosigner Signature (if applicable): CC: KOSTA Ames Podlogar; Dr. Jerrell Garcia MD; Dr. Desean Rodriguez MD~ Signed ADDENDUM by Dr. Desean Rodriguez MD on 02/22/25 at 1627 Addendum Patient seen and examined this afternoon. Patient still with mild right upper quadrant pain. She currently rates as a 3 out of 10. No fevers or chills. Plan is for laparoscopic cholecystectomy with intraoperative cholangiograms tomorrow around 1 PM. Continue IV antibiotics. N.p.o. after midnight. Detailsof the surgery discussed. 02/22/25 1627<Electronically signed by Desean Rodriguez MD> Cosigner Signature (if applicable): cc: OPENER TENDER-C Hui Valdes; Dr. Jerrell Garcia MD; Dr. Desean Rodriguez MD ~* Signed [facility] Work Phone: 1(740) 407-312306-10-2025 History and physical note [facility] Medical Records Department [address] [place] [address] H&P Exam - Surgical 02/22/25 0710 MR#: [id number] Acct: [id number] Name: DANE OLIVERA Rep #:[id number] : 1985 39 From: Jerrell spears MD PCP: Hui Valdes, OPENER TENDER-C Status:ADM I N Location: [address] HPI - General General Date of Admission: 02/22/25 HPI Narrative DANE OLIVERA, is a 39 F who presents with abdominal pain. The patient is 1week postop from a an incarcerated ventral hernia repair. She was doing well until yesterday and started developing abdominal pain. She does state that she vomited before admission. She says she is not having a fever butshe does describe chills. She does not have any pain in her lower abdomen. Her pain is in the rightupper quadrant. [facility] Medical History (Updated 02/22/25 @ 04:47 by Trinity Paulino) Hernia Wears glasses Wears dentures Depression Bladder disease [...] Time amoxicillin Allergy Unknown unknown Verified 02/21/25 23:32 Family History Son Asthma Grandmother Diabetes Breast cancer Father Hypertension Surgical History History of esophagogastroduodenoscopy (EGD) Previous section Social History Smoking Status: Current every day smoker tobacco type: e-cigarettes quit status: not considering quitting ROS Constitutional Constitutional: Reports chills; Denies anorexia, fatigue or fever(s) Eyes Eyes: Denies blurry vision ENT HEENT: Denies abnormal hearing Respiratory/Chest Respiratory/Chest: Denies cough or dyspnea Gastrointestinal Gastrointestinal: Reports abdominal pain and vomiting; Denies change in bowel habits, coffee groundemesis or constipation Genitourinary Genitourinary: Denies change in urinary stream Musculoskeletal Musculoskeletal: Denies abnormal gait Integumentary Integumentary: Denies jaundice Neurologic Neurologic: Denies abnormal gait Psychiatric Psychiatric: Denies anxiety Endocrine Endocrinology: Denies flushing Vital Signs Vital Signs Vital Signs: 02/21/25 23:30 02/22/25 01:29 02/22/25 03:00 Temperature 98.1 F Temperature Source Oral Pulse Rate 84 70 72 Respiratory Rate 20 H 18 18 Blood Pressure 128/79 H 150/96 H 148/60 H Blood Pressure Mean 95 114 89 Blood Pressure Source Blood Pressure Position Blood Pressure Location Pulse Ox 100 99 Oxygen Delivery Method Room Air Room Air 02/22/25 04:06 02/22/25 04:50 Temperature 98.6 F 98 F Temperature Source Oral Pulse Rate 82 71 Respiratory Rate 16 16 Blood Pressure 155/92 H 137/78 H Blood Pressure Mean 113 97 Blood Pressure Source Monitor Blood Pressure Position Semi-Fowlers Blood Pressure Location Right Arm Pulse Ox 100 100 Oxygen Delivery Method Room Air Weight Weight: 165 lb 12.602 oz Body Mass Index (BMI) 28.4 Physical Exam Const oriented x3 and no apparent distress Resp normal respiratory effort Cardio regular rate and regular rhythm GI soft to palpation Palpation: tender RUQ Extremity normal to inspection Results Lab / Micro Data 02/22/25 00:48 02/22/25 00:48 Labs: Laboratory Results - last 24 hr 02/22/25 00:48: WBC 12.6 H, RBC 4.09 L, Hgb 12.7, Hct 37.5, MCV 91.7, MCH 31.1, MCHC 33.9, RDW Std Deviation 41.1, RDW Coeff of Concetta 12.3, Plt Count TNP, MPV 9.5, Immature Gran % (Auto) 0.200, Neut % (Auto) 66.6, Lymph % (Auto) 23.7, Villalba% (Auto) 7.2, Eos % (Auto) 1.5, Baso % (Auto) 0.8, Absolute Neuts (auto) 8.4 H, Absolute Lymphs (auto) 2.99, Nucleated RBC % 0, Differential Comment SCANNED, Platelet Estimate ADEQUATE, Sodium 139, Potassium 4.0, Chloride 105, Carbon Dioxide 21.6, Anion Gap 12, BUN 10, Creatinine 0.79, Estim Creat Clear Calc 95.38, Est GFR (MDRD) Non-Af 97, BUN/Creatinine Ratio 13.0, Glucose 92, Calcium 9.1, Total Bilirubin < 0.15, AST 38 H, ALT 18, Alkaline Phosphatase 59, Total Protein 6.6, Albumin 4.0, Globulin 2.6, Albumin/Globulin Ratio 1.6, Lipase 37 Imaging Radiology Impression Gallbladder Ultrasound 02/22/25 02:16 IMPRESSION: Findings suggest acute calculus cholecystitis. Gallbladder hydrops. Fatty hepatomegaly. Findings were discussed with Dr. Smith at 3:41 am Reading Location: [place] [address] Assessment & Plan Assessment/Plan (1) Acute cholecystitis: PLAN: The patient is postoperative day 7 from ventral hernia repair with Dr. Rodriguez. I will discussed the case with him this morning. one of us will take her for laparoscopic cholecystectomy this afternoon. Continue n.p.o. with antibiotics. Jerrell Garcia MD Pager: [facility], [address] [place] [address] Office: 02/22/25 0701 Cosigner Signature (if applicable): CC: KOSTA Valdes; Dr. Jerrell Garcai MD; Dr. Desean Rodriguez MD~ Signed ADDENDUM by Dr. Desean Rodriguez MD on 02/22/25 at 1627 Addendum Patient seen and examined this afternoon. Patient still with mild right upper quadrant pain. She currently rates as a 3 out of 10. No fevers or chills. Plan is for laparoscopic cholecystectomy with intraoperative cholangiograms tomorrow around 1 PM. Continue IV antibiotics. N.p.o. after midnight. Detailsof the surgery discussed. 02/22/25 1627 Cosigner Signature (if applicable): cc: KOSTA Valdes; Dr. Jerrell Garcia MD; Dr. Desean Rodriguez MD ~* Signed [facility]06-10-2025 Discharge summary Author Kayden Smith [facility] Note Date/Time February 22, 2025 4:01 am [facility] Medical Records Department [address] [place] [address] Emergency Department Summary 02/22/25 MR#: [id number] Acct: [id number] Name: DANE OLIVERA Rep #:[id number] : 1985 39 From: Kayden Smith DO PCP: KOSTA Gomez Status:REG E R Location: ED HPI History of Present Illness Chief Complaint: Abd Pain Narrative Narrative: Patient is a 39-year-old female with past medical history of recent ventral hernia repair with mesh placement, depression, migraine headaches who presents to the emergency department chief complaint of abdominal pain nausea. Patient states that she is not vomiting but feels like she wants to constantly. Patientstates that she was here earlier today she was sent home she was not given any medications to go home with. She states that she had been trying to take Tylenol and ibuprofen at home and this is not helping her pain therefore she came back here for further evaluation management. Patient rates her pain an 8 out of 10 and states that it is in the right upper abdomen. [facility] Medical History Wears glasses Wears dentures [...] Time amoxicillin Allergy Unknown unknown Verified 02/21/25 23:32 Family History Son Asthma Grandmother Diabetes Breast cancer Father Hypertension Surgical History History of esophagogastroduodenoscopy (EGD) Previous section Social History Smoking Status: Current every day smoker tobacco type: e-cigarettes quit status: not considering quitting ROS ROS ED ROS Narrative Constitutional: Denies any fevers, chills, headaches Eyes: Denies change in vision double vision blurry vision Cardiovascular: Denies chest pain Respiratory: Shortness of breath Abdomen: Complains of abdominal pain and nausea as noted above she states that she is passing gas and had a bowel movement prior to arrival : Denies urinary symptoms Neurological: Denies numbness, weakness, tingling Musculoskeletal: Denies back pain Skin: Denies rashes or lesions EXAM Physical Exam Narrative Exam Narrative: General: Patient lying in bed rest comfortably did not appear to be acute distress Head: Atraumatic, normocephalic Eyes: PERRL bilaterally, EOMI bilaterally, no conjunctival injection noted Neck: Soft, supple, trachea midline Cardiovascular: Regular rate and rhythm no murmurs gallops rubs noted Respiratory: Clear to auscultation bilaterally Abdomen: Soft, nondistended, tenderness to palpation the right upper quadrant positive Arana sign Extremities: +5/5 strength noted in the bilateral upper and lower extremities Neurological: Patient is following commands today she was at [facility] the year is 2024 Skin: Warm, dry, intact surgical incision healing well without concerns for infection Const Vital Signs: 02/21/25 23:30 02/22/25 01:29 02/22/25 03:00 Temperature 98.1 F Temperature Source Oral Pulse Rate 84 70 72 Respiratory Rate 20 H 18 18 Blood Pressure 128/79 H 150/96 H 148/60 H Blood Pressure Mean 95 114 89 Pulse Ox 100 99 Oxygen Delivery Method Room Air Room Air MDM MDM MDM Narrative Medical decision making narrative: Patient is a 39-year-old female who presented to the emergency department the chief complaint of abdominal pain. On the differential diagnosis includes but not limited to cholecystitis, cholelithiasis, pancreatitis, bowel obstruction although have low suspicion for this as she is passing gas had a CT earlier today that did not show any evidence of this and she had a bowel movement prior to arrival. Patient will be on IV fluids morphine Zofran. Patient's workup from earlier today reviewed and showed no evidence leukocytosiswhite blood count was normal at 9, he was 13.5, platelet count of 390. Patient sodium was normal at 140, potassium normal at 5, creatinine normal at 0.73. Patient AST and ALT were 34 and 16 respectively with a normal total bilirubin at0.20. Patient urinalysis did not show any evidence infection. Patient CT abdomen pelvis with IV contrast showed status post ventral hernia repair with findings suggestive of small postoperative seroma in the subcutaneous tissues atthe level of the incision. The remainder of the exam is unchanged. Multiple gallstones noted. Provider's note was reviewed as well and they discussed this with surgery team and ultimately agreed to send the patient home. Patient states that she was not sent home with any medications, which upon review she was not. Patient CBC reviewed showed a white blood cell count of 12,000 hemoglobin was 12.7. Patient's sodium was 139, potassium of 4, creatinine was noted to be 0.79. Patient's AST and ALT were 38 and 18 respectively, lipase normal at 37. Patient's gallbladder showed acute cholecystitis. Patient given dose of IV Zosyn she states that she has not had amoxicillin sinceshe has been a child. Patient was requesting more pain medication which was ordered morphine Zofran. Discussed case with on-call general surgeon Dr. Garcia who accept the patient for admission. Patient notified is agreeable this plan all course concerns answered. Lab Data Labs: Laboratory Results - last 24 hr 02/22/25 00:48 WBC 12.6 H RBC 4.09 L Hgb 12.7 Hct 37.5 MCV 91.7 MCH 31.1 MCHC 33.9 RDW Std Deviation 41.1 RDW Coeff of Concetta 12.3 Plt Count TNP MPV 9.5 Immature Gran % (Auto) 0.200 Neut % (Auto) 66.6 Lymph % (Auto) 23.7 Villalba % (Auto) 7.2 Eos % (Auto) 1.5 Baso % (Auto) 0.8 Absolute Neuts (auto) 8.4 H Absolute Lymphs (auto) 2.99 Nucleated RBC % 0 Differential Comment SCANNED Platelet Estimate ADEQUATE Sodium 139 Potassium 4.0 Chloride 105 Carbon Dioxide 21.6 Anion Gap 12 BUN 10 Creatinine 0.79 Estim Creat Clear Calc 95.38 Est GFR (MDRD) Non-Af 97 BUN/Creatinine Ratio 13.0 Glucose 92 Calcium 9.1 Total Bilirubin < 0.15 AST 38 H ALT 18 Alkaline Phosphatase 59 Total Protein 6.6 Albumin 4.0 Globulin 2.6 Albumin/Globulin Ratio 1.6 Lipase 37 Radiography Diagnostic Testing: Clinical Impression(s) from Imaging Studies Gallbladder Ultrasound 02/22/25 02:16 IMPRESSION: Findings suggest acute calculus cholecystitis. Gallbladder hydrops. Fatty hepatomegaly. Findings were discussed with Dr. Smith at 3:41 am Reading [facility] Discharge Plan Triage Chief Complaint: Abd Pain ED Provider: Kayden Smith Dx/Rx/DC Orders Clinical Impression: Abdominal pain, Acute cholecystitis Prescriptions: No Action solifenacin 10 mg tablet [...] Primary Care Provider: Hui Valdes NP Referrals: Hui Valdes NP, OPENER TENDER-C [Primary Care Provider] - Print Language: Israeli Disposition Disposition: [facility] What to do if you have Problems For any increased pain, shortness of breath, bleeding, nausea or vomiting, chestpain, or any unexpected problems, contact your Primary Care Provider. Call [facility] ([phone]) or report to the closest Emergency Room. Call 911 if necessary. 02/22/25 0401 <Electronically signed by Kayden Smith DO> Cosigner Signature (if applicable): CC: OLYC Hui Valdes ~ Signed [facility] Work Phone: 1(825) 151-351206-10-2025 Discharge summary [facility] Medical Records Department [address] [place] [address] Emergency Department Summary 02/22/25 MR#: [id number] Acct: [id number] Name: DANE OLIVERA Rep #:[id number] : 1985 39 From: Kayden Smith DO PCP: KOSTA Gomez Status:REG E R Location: ED HPI History of Present Illness Chief Complaint: Abd Pain Narrative Narrative: Patient is a 39-year-old female with past medical history of recent ventral hernia repair with meshplacement, depression, migraine headaches who presents to the emergency department chief complaint of abdominal pain nausea. Patient states that she is not vomiting but feels like she wants to constantly. Patientstates that she was here earlier today she was sent home she was not given any medications to go home with. She states that she had been trying to take Tylenol and ibuprofen at home and this is not helping her pain therefore she came back here for further evaluation management. Patient rates her pain an 8 out of 10 and states that it is in the right upper abdomen. [facility] Medical History Wears glasses Wears dentures [...] Time amoxicillin Allergy Unknown unknown Verified 02/21/25 23:32 Family History Son Asthma Grandmother Diabetes Breast cancer Father Hypertension Surgical History History of esophagogastroduodenoscopy (EGD) Previous section Social History Smoking Status: Current every day smoker tobacco type: e-cigarettes quit status: not considering quitting ROS ROS ED ROS Narrative Constitutional: Denies any fevers, chills, headaches Eyes: Denies change in vision double vision blurry vision Cardiovascular: Denies chest pain Respiratory: Shortness of breath Abdomen: Complains of abdominal pain and nausea as noted above she states that she is passing gas and had a bowel movement prior to arrival : Denies urinary symptoms Neurological: Denies numbness, weakness, tingling Musculoskeletal: Denies back pain Skin: Denies rashes or lesions EXAM Physical Exam Narrative Exam Narrative: General: Patient lying in bed rest comfortably did not appear to be acute distress Head: Atraumatic, normocephalic Eyes: PERRL bilaterally, EOMI bilaterally, no conjunctival injection noted Neck: Soft, supple, trachea midline Cardiovascular: Regular rate and rhythm no murmurs gallops rubs noted Respiratory: Clear to auscultation bilaterally Abdomen: Soft, nondistended, tenderness to palpation the right upper quadrant positive Arana sign Extremities: +5/5 strength noted in the bilateral upper and lower extremities Neurological: Patient is following commands today she was at [facility] the year is 2024 Skin: Warm, dry, intact surgical incision healing well without concerns for infection Const Vital Signs: 02/21/25 23:30 02/22/25 01:29 02/22/25 03:00 Temperature 98.1 F Temperature Source Oral Pulse Rate 84 70 72 Respiratory Rate 20 H 18 18 Blood Pressure 128/79 H 150/96 H 148/60 H Blood Pressure Mean 95 114 89 Pulse Ox 100 99 Oxygen Delivery Method Room Air Room Air MDM MDM MDM Narrative Medical decision making narrative: Patient is a 39-year-old female who presented to the emergency department the chief complaint of abdominal pain. On the differential diagnosis includes but not limited to cholecystitis, cholelithiasis, pancreatitis, bowel obstruction although have low suspicion for this as she is passing gas had a CT earlier today that did not show any evidence of this and she had a bowel movement prior to arrival. Patient will be on IV fluids morphine Zofran. Patient's workup from earlier today reviewed and showed no evidence leukocytosiswhite blood count was normal at 9, he was 13.5, platelet count of 390. Patient sodium was normal at 140, potassium normal at 5, creatinine normal at 0.73. Patient AST and ALT were 34 and 16 respectively with a normal total bilirubin at0.20. Patient urinalysis did not show any evidence infection. Patient CT abdomen pelvis with IV contrast showed status post ventral hernia repair with findings suggestive of small postoperative seroma in the subcutaneous tissues atthe level of the incision. The remainder of the exam is unchanged. Multiple gallstones noted. Provider's note was reviewed as well and they discussed this with surgery team and ultimately agreed to send the patient home. Patient states that she was not sent home with any medications, which upon review she was not. Patient CBC reviewed showed a white blood cell count of 12,000 hemoglobin was 12.7. Patient's sodium was 139, potassium of 4, creatinine was noted to be 0.79. Patient's AST and ALT were 38 and 18 respectively, lipase normal at 37. Patient's gallbladder showed acute cholecystitis. Patient given dose of IV Zosyn she states that she has not had amoxicillin sinceshe has been a child. Patient was requesting more pain medication which was ordered morphine Zofran. Discussed case with on-call general surgeon Dr. Garcia who accept the patient for admission. Patient notified is agreeable this plan all course concerns answered. Lab Data Labs: Laboratory Results - last 24 hr 02/22/25 00:48 WBC 12.6 H RBC 4.09 L Hgb 12.7 Hct 37.5 MCV 91.7 MCH 31.1 MCHC 33.9 RDW Std Deviation 41.1 RDW Coeff of Concetta 12.3 Plt Count TNP MPV 9.5 Immature Gran % (Auto) 0.200 Neut % (Auto) 66.6 Lymph % (Auto) 23.7 Villalba % (Auto) 7.2 Eos % (Auto) 1.5 Baso % (Auto) 0.8 Absolute Neuts (auto) 8.4 H Absolute Lymphs (auto) 2.99 Nucleated RBC % 0 Differential Comment SCANNED Platelet Estimate ADEQUATE Sodium 139 Potassium 4.0 Chloride 105 Carbon Dioxide 21.6 Anion Gap 12 BUN 10 Creatinine 0.79 Estim Creat Clear Calc 95.38 Est GFR (MDRD) Non-Af 97 BUN/Creatinine Ratio 13.0 Glucose 92 Calcium 9.1 Total Bilirubin < 0.15 AST 38 H ALT 18 Alkaline Phosphatase 59 Total Protein 6.6 Albumin 4.0 Globulin 2.6 Albumin/Globulin Ratio 1.6 Lipase 37 Radiography Diagnostic Testing: Clinical Impression(s) from Imaging Studies Gallbladder Ultrasound 02/22/25 02:16 IMPRESSION: Findings suggest acute calculus cholecystitis. Gallbladder hydrops. Fatty hepatomegaly. Findings were discussed with Dr. Smith at 3:41 am Reading Location: [place] [address] Discharge Plan Triage Chief Complaint: Abd Pain ED Provider: Kayden Smith Dx/Rx/DC Orders Clinical Impression: Abdominal pain, Acute cholecystitis Prescriptions: No Action solifenacin 10 mg tablet [...] Primary Care Provider: Hui Valdes NP Referrals: Hui Valdes NP, OPENER TENDER-C [Primary Care Provider] - Print Language: Israeli Disposition Disposition: [facility] What to do if you have Problems For any increased pain, shortness of breath, bleeding, nausea or vomiting, chestpain, or any unexpected problems, contact your Primary Care Provider. Call [facility] ([phone]) or report tothe closest Emergency Room. Call 911 if necessary. 02/22/25 0401 Cosigner Signature (if applicable): CC: KOSTA Valdes ~ Signed [facility]06-10-2025 Radiology Diagnostic study note [facility] Imaging Services [address] [place], [place] [address] Gallbladder MR#: [id number] Acct: [id number] Name: DANE OLIVERA Rep #: [id number] : 1985 F 39 From: Kate Cornelius MD PCP: KOSTA Gomez Status: REG E R Study:Gallbladder Date of Exam: 02/22/25 Exam# [id number] Ordering Dr: Lia Smith DO PROCEDURE: GALLBLADDER 02/22/2025 REASON FOR EXAM: RUQ PAIN COMPARISON: None FINDINGS: The liver is enlarged and measures 20 cm. It shows slightly increased parenchymal echogenicity. No obvious focal lesions. Portal vein is patent with hepatopetal flow. Gallbladder: Is distended and measures 16.2 cm. Positive Arnaa's sign is noted. Trace pericholecystic fluid collection is noted. Multiple echogenic stones are seen. Focal gallbladder wall thickening measuring 7 mm is noted. CBD measures 3 mm. Pancreas is unremarkable with no obvious lesions. Right kidney measures 10.5 x 5.6 x 5.5 cm. Cortex 1.5 cm. No hydronephrosis. No stones. No mass. US/Gallbladder IMPRESSION: Findings suggest acute calculus cholecystitis. Gallbladder hydrops. Fatty hepatomegaly. Findings were discussed with Dr. Smith at 3:41 am Reading Location: [place] [address] CC: OPENER TENDER-C Hui Valdes; Dr. Kayden Smith, DO ~ Cost Control Analyst: Signed [facility]06-09-2025 Discharge summary [facility] Medical Records Department [address] [place] [address] Emergency Department Summary 02/21/25 MR#: [id number] Acct: [id number] Name: DANE OLIVERA Rep #:[id number] : 1985 39 [...] She states today she developed increased abdominal pain.She states majority of the pain is in the right upper quadrant. She denies any fever, chills, shortness of breath, chest pain, nausea, vomiting, diarrhea, dysuria. States she has been eating and drink ing well. Review of systems: See HPI Medications: [...] intact Psych: Cooperative, appropriate mood and affect PFSH [facility] Medical History Wears glasses Wears dentures Depression [...] to postoperative pain, UTI, cholecystitis, biliary colic, pancreatitis,abscess. NS bolus, morphine, Zofran ordered for symptoms. [...] discharge home. Has an appointment with general surgeryon Friday. Return precautions explained. She confirmed understand [...] % (Auto) 59.2 Lymph % (Auto) 29.7 Villalba % (Auto) 8.0 Eos % (Auto) 2.0 [...] Clarity Clear Urine pH 7.0 Ur Specific Carmichaels 1.010 Urine Protein Negative Urine Glucose (UA) [...] suggestive of a small postoperative seroma in thesubcutaneous tissues at the level of the incision. The remainder of the examination is unchanged. Multiple gallstones. Reading Location: [place] [address] Discharge Plan Triage Chief Complaint: Abd Pain [...] if symptoms change or worsen. Print Language: Israeli Disposition Disposition: Home, Self Care What to do if you have Problems For any increased pain, shortness of breath, bleeding, nausea or vomiting, chestpain, or any unexpected problems, contact your Primary Care Provider. Call [facility] ([phone]) or report tothe closest Emergency Room. Call 911 if necessary. 02/21/25 1558 Cosigner Signature (if applicable): CC: OPENER TENDER-C Hui Podlogar ~ Signed [facility]06-09-2025 Radiology Diagnostic study note [facility] Imaging Services [address] [place] [address] Abdomen/Pelvis W IV Cont ONLY MR#: [id number] Acct: [id number] Name: DANE OLIVERA Rep #: [id number] : 1985 F 39 From: Serjio Curry MD PCP: Hui Valdes, OLYC Status: REG E R Study:Abdomen/Pelvis W IV Cont ONLY Date of E xam: 02/21/25 Exam# [id number] Ordering Dr: Yvon Do DO PROCEDURE: ABDOMEN/PELVIS [...] suggestive of a small postoperative seroma in thesubcutaneous tissues at the level of the incision. The remainder of the examination is unchanged. Multiple gallstones. Reading Location: [facility] CC: KOSTA Valdes; Dr. Yvon Becker DO ~ Cost Control Analyst: Signed [facility]06-09-2025 Discharge summary Author Yvon Becker [facility] Note Date/Time February 21, 2025 3:58p m [facility] Medical Records Department [address] [place] [address] Emergency Department Summary 02/21/25 MR#: [id number] Acct: [id number] Name: DANE OLIVERA Rep #:[id number] : 1985 39 [...] intact Psych: Cooperative, appropriate mood and affect [facility] Medical History Wears glasses Wears dentures [...] % (Auto) 59.2 Lymph % (Auto) 29.7 Villalba % (Auto) 8.0 Eos % (Auto) 2.0 [...] Clarity Clear Urine pH 7.0 Ur Specific Carmichaels 1.010 Urine Protein Negative Urine Glucose (UA) [...] examination is unchanged. Multiple gallstones. Reading Location: [place] [address] Discharge Plan Triage Chief Complaint: Abd Pain [...] if symptoms change or worsen. Print Language: Israeli Disposition Disposition: Home, Self Care What to do if you have Problems For any increased pain, shortness of breath, bleeding, nausea or vomiting, chestpain, or any unexpected problems, contact your Primary Care Provider. Call [facility] ([phone]) or report to the closest Emergency Room. Call 911 if necessary. 02/21/25 4196 <Electronically signed by Yvon Becker DO> Cosigner Signature (if applicable): CC: OPENER TENDER-C Hui Valdes ~ Signed [facility] Work Phone: 1(426) 275-991006-06-2025 Hospital Discharge instructions Additional Instructions Keep your appointment on Friday with general surgery. Return back to the ED if symptoms change or worsen.[facility] Work Phone: 1(833) 459-820806-02-2025 Consult note [facility] Medical Records Department [address] [facility] [place] [address] Anesthesia Postop Eval II 02/14/25 1637 MR#: [id number] Acct: [id number] Name: DANE OLIVERA Rep #:[id number] : 1985 39 From: Guille Shin MD PCP: Hui Valdes, OPENER TENDER-C Status:REG S DC Y Race: C Location: [place] [address]- Anesthesia Postop Eval I Sum Postop Eval Completion status Anesthesia document: Postop Eval 1 completed: Yes Anesthesia Postop Eval I Summary Anesthesia Postop Eval I Summary: Anesthesia Postop Eval I: Assessment Summary Airway patent Yes 02/14/25 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 Spontaneous unlabored Yes 02/14/25 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 Anesthesia Complication Comment: Post-operative progress note Anesthesia: Postop Eval II Evaluation Mental status: Awake Pain Level: 0 nausea: No Vomiting: No Complications Anesthesia Complication: No 02/14/25 1637 > Date _ Guille Shin MD Cosigner Signature: Date CC: ~ Signed [facility]06-02-2025 Consult note Author Royce CeballosGiles [facility] Note Date/Time February 14, 2025 3:55p [facility] Medical Records Department [address] [place] [address] Anesthesia Postop Eval I 02/14/25 1554 MR#: [id number] Acct: [id number] Name: DANE OLIVERA Rep #:[id number] : 1985 39 From: Royce SORENSEN PCP: KOSTA Gomez Status:REG S DC Y Race: C Location: [place] [address] Anesthesia: Postop Eval I Current Vital Signs [...] document: Postop Eval 1 completed: Yes 02/14/25 5321 <Electronically signed by Royce Gomez CRNA> Date _ Royce Gomez CRNA Cosigner Signature: Date CC: ~ Signed [facility] Work Phone: 1(135) 911-343706-02-2025 Discharge summary Author Desean Rodriguez [facility] Note Date/Time February 14, 2025 3:46p m [facility] Medical Records Department [address] [facility] [place] [address] Instructions for Home/Discharge Instructions 02/14/25 1536 MR#: [id number] Acct: [id number] Name: DANE OLIVERA Rep #:[id number] : 1985 39 [...] Provider: Hui Valdes NP Instructions Print Language: Israeli Discharge Orders/Prescriptions Prescriptions: New oxycodone-acetaminophen [Percocet] 5-325 [...] Referrals / Follow Up: Hui Valdes NP, OPENER TENDER-C [Primary Care Provider] - Disposition Disposition (needs filled in before D/C Order can be placed): Home, Self Care 02/14/25 1546<Electronically signed by Desean Rodriguez MD>Desean Rodriguez MD CC: OPENER TENDER-C Hui Valdes ~ Signed [facility] Work Phone: 1(388) 123-394506-02-2025 History and physical note Author [facility] Note Date/Time February 14, 2025 2:17p m [facility] Medical Records Department [address] [place] [address] History & Physical Exam 02/14/25 1414 MR#: [id number] Acct: [id number] Name: DANE OLIVERA Rep #:[id number] : 1985 39 From: Desean Rodriguez MD PCP: KOSTA Gomez Status:REG S DC Location: [address] HPI - General General Date of Admission: 02/14/25 Date of Service: 02/14/25 Chief Complaint: Ventral hernia HPI Narrative DANE OLIVERA, is a 39 F who presents for elective repair of a ventral hernia just above the umbilicus. [facility] Medical History Wears glasses Wears dentures Depression [...] begin momentarily Charges/Coding Visit Charges Inpatient E&M: 01761 Init Hosp L2 02/14/25 1417 <Electronically signed by Desean Rodriguez MD> Cosigner Signature (if applicable): CC: OPENER TENDER-C Hui Valdes; Dr. Desean Rodriguez MD~ Signed [facility] Work Phone: 1(862) 668-431006-02-2025 Procedure note [facility] Medical Records Department [address] [place] [address] Operative Report 02/14/25 1546 MR#: [id number] Acct: [id number] Name: DANE OLIVERA Rep #:[id number] : 1985 39 From: Desean Rodriguez MD PCP: OLY GomezC Status:REG S DC Location: [place] [address] Problems Associated Problem List Diagnoses (1) Ventral hernia: Procedures Digestive 40xxx-49xxx: 24362 RPR AA HRN 11-22 NCR/STRN Operative Report (Standard) Operative Information Date of Procedure: 02/14/25 Pre-Operative Diagnosis: Ventral hernia -chronically incarcerated Post-Operative Diagnosis: Same Surgery/Procedure Performed: Open ventral hernia repair with mesh alternative financing specialist: Yes Store Gift Wrap Associate: Kristine Larose Tasks completed by special event assistant: Closing and Retracting Additional wet process assistant head miller?: No Type of Anesthesia: General and Local [...] KOSTA Valdes; Dr. Desean Rodriguez MD~ Signed [facility]06-02-2025 Consult note [facility] Medical Records Department [address] [place] [address] Anesthesia Postop Eval I 02/14/251553 MR#: [id number] Acct: [id number] Name: DANE OLIVERA Maura Rep #:[id number] : 1985 39 From: Royce SORENSEN PCP: KOSTA Gomez Status:REG S DC Y Race: C Location: [place] [address] Anesthesia: Postop Eval I Current Vital Signs [...] document: Postop Eval 1 completed: Yes 02/14/251554 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 OPERATOR> Date _ Royce Gomez 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 OPERATOR Cosigner Signature: Date CC: ~ Signed [facility]06-02-2025 Discharge summary [facility] Medical Records Department [address] [place] [address] Instructions for Home/Discharge Instructions 02/14/25 1536 MR#: [id number] Acct: [id number] Name: DANE OLIVERA N Rep #:[id number] : 1985 39 From: Desean Rodriguez [...] Provider: Hui Valdes NP Instructions Print Language: Israeli Discharge Orders/Prescriptions Prescriptions: New oxycodone-acetaminophen [Percocet] 5-325 [...] Referrals / Follow Up: Hui Valdes NP, OPENER TENDER-C [Primary Care Provider] - Disposition Disposition (needs filled in before D/C Order can be placed): Home, Self Care 02/14/25 1546Steagle Rodriguez MD CC: OKSTA Valdes ~ Signed [facility]06-02-2025 Consult note Author Guille Shin [facility] Note Date/Time February 14, 2025 1:45p [facility] Medical Records Department [address] [place] [address] Pre-Anesthesia Evaluation 02/14/25 1340 MR#: [id number] Acct: [id number] Name: DANE OLIVERA Rep #:[id number] : 1985 39 From: Guille Shin MD PCP: Hui Valdes, OPENER TENDER-C Status:REG S DC Y Race: C Location: [place] [address] ASA Classification* ASA Classification ASA Classification: 2 [...] WITH MESH Anesthesia History Anesthesia History - heavy machinery 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: Anesthesia History - heavy machinery operator Hx Hospitalization No 02/04/25 14:43 Any Problems [...] take am of surgery PONV PONV - heavy machinery operator: PONV - heavy machinery operator Female Yes 02/04/25 14:43 HX of Motion [...] 02/14/25 13:25 Respiratory Assessment Respiratory Assessment - heavy machinery operator: Respiratory Tract Infection Hx - heavy machinery operator Hx Respiratory Tract Infection No 02/04/25 14:43 STOP Sleep Apnea STOP Sleep Apnea - heavy machinery operator: STOP Sleep Apnea - heavy machinery operator Hx Hypertension No 02/04/25 14:43 Hx Sleep [...] Tobacco Use History Tobacco Use History - heavy machinery operator: Tobacco Use History - heavy machinery operator Tobacco Use Smoking Status Current every day smoker 02/04/25 14:43 Hx Tobacco Use Yes 02/04/25 14:43 Years Smoking Packs Smoked per Day Smoking Cessation Date was within the last 15 years Hx Smoking Cessation Date Hx Smoking Cessation Counseling Hematologic Medial History Hematologic Hx - heavy machinery operator: Hematologic Medical Hx - certified medical dosimetrist Hx of Blood Transfusion No 02/04/25 14:43 [...] confused, unrespo /Reproduction History /Reproductive History - heavy machinery operator: /Reproductive Hx- heavy machinery operator Hx Now No 02/04/25 14:43 Gestational Age [...] 13:15 02/14/25 13:28 IV 15 mls/hr .Q48H MELANIE Administration PFSH Medical History (Updated 02/04/25 @ [...] by Guille Shin MD> Date _ Guille Villafuerteignjosh Signature: Date CC: ~ Signed [facility] Work Phone: 1(168) 933-491806-02-2025 History and physical note [facility] Medical Records Department [address] [place] [address] History & Physical Exam 02/14/25 1414 MR#: [id number] Acct: [id number] Name: DANE OLIVERA Rep #:[id number] : 1985 39 From: Desean Rodriguez MD PCP: KOSTA Gomez Status:REG S DC Location: [place] [address] HPI - General General Date of Admission: 02/14/25 Date of Service: 02/14/25 Chief Complaint: Ventral hernia HPI Narrative DANE OLIVERA, is a 39 F who presents for elective repair of a ventral hernia just above the umbilicus. [facility] Medical History Wears glasses Wears dentures Depression [...] begin momentarily Charges/Coding Visit Charges Inpatient E&M: 68099 Init Hosp L2 02/14/25 1417 Cosigner Signature (if applicable): CC: KOSTA Ames Podlogar; Dr. Desean Rodriguez MD~ Signed [facility]06-02-2025 [facility] Medical Records Department [address] [place] [address] History Physical Exam 02/14/25 1414 MR#: [id number] Acct: [id number] Name: DANE OLIVERA Rep #: [id number] : 1985 39 From: Desean Rodriguez MD PCP: KOSTA Gomez Status:[facility] Location: [place] [address] HPI - General General Date of Admission: 02/14/25 Date of Service: 02/14/25 Chief Complaint: Ventral hernia HPI Narrative DANE OLIVERA, is a 39 F who presents for elective repair of a ventral hernia just above the umbilicus. [facility] Medical History Wears glasses Wears dentures Depression [...] momentarily Charges/Coding Visit Charges Inpatient E M: 96078 Init Hosp L2 02/14/25 1417 Cosigner Signature (if applicable): CC: KOSTA Valdes; Dr. 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: Anesthesia History - heavy machinery operator Hx Hospitalization No 02/04/25 14:43 Any Problems [...] take am of surgery PONV PONV - heavy machinery operator: PONV - heavy machinery operator Female Yes 02/04/25 14:43 HX of Motion [...] 02/14/25 13:25 Respiratory Assessment Respiratory Assessment - heavy machinery operator: Respiratory Tract Infection Hx - heavy machinery operator Hx Respiratory Tract Infection No 02/04/25 14:43 STOP Sleep Apnea STOP Sleep Apnea - heavy machinery operator: STOP Sleep Apnea - heavy machinery operator Hx Hypertension No 02/04/25 14:43 Hx Sleep [...] Tobacco Use History Tobacco Use History - heavy machinery operator: Tobacco Use History - heavy machinery operator Tobacco Use Smoking Status Current every day smoker 02/04/25 14:43 Hx Tobacco Use Yes 02/04/25 14:43 Years Smoking Packs Smoked per Day Smoking Cessation Date was within the last 15 years Hx Smoking Cessation Date Hx Smoking Cessation Counseling Hematologic Medial History Hematologic Hx - heavy machinery operator: Hematologic Medical Hx - certified medical dosimetrist Hx of Blood Transfusion No 02/04/25 14:43 [...] confused, unrespo /Reproduction History /Reproductive History - heavy machinery operator: /Reproductive Hx- heavy machinery operator Hx Now No 02/04/25 14:43 Gestational Age [...] 13:15 02/14/25 13:28 IV 15 mls/hr .Q48H MELANIE Administration PFSH Medical History (Updated 02/04/25 @ 14:53 by Tricia Gracia) Wears glasses Wears dentures Depression Bladder disease [...] MD Cosigner Signature: Date CC: ~ Signed [facility]05-21-2025 Evaluation note* Diagnosis Onset Date Resolution Status Admit Date Ventral hernia acute February 02, 2025 12:47pm Ventral hernia acute February 14, 2025 12:52pm [facility] Work Phone: 1(416) 667-672105-21-2025 Evaluation note* Diagnosis Onset Date Resolution Status Admit Date Ventral hernia acute February 02, 2025 12:47pm Ventral hernia acute February 14, 2025 12:52pm Acute cholecystitis acute February 22, 2025 4:04am [facility] Work Phone: 1(206) 478-731605-21-2025 Evaluation note* Diagnosis Onset Date Resolution Status Admit Date Ventral hernia resolved February 02, 2025 12:47pm Ventral hernia resolved February 14, 2025 12:52pm Acute cholecystitis resolved February 22, 2025 4:04am S/P cholecystectomy acute March 09, 2025 1:58pm S/P hernia repair acute March 092024 1:58pm [facility] Work Phone: 1(550) 333-459105-21-2025 Progress [facility] [address] [place] [address] OFFICE VISIT Date of Service: 02/02/25 MR#: [id number] Acct: [id number] Name: DANE OLIVERA Rep #: [id number] : 1985 Provider: Dr. Griffin Rodriguez MD Age/Sex: 39/F Location: [facility] Status: Signed Intake Vital Signs 01/15/25 17:48 [...] 25 mg 25 mg PO QDAY 02/02/25 05/2 10/09 History tablet,extended release 24 hr solifenacin 10 [...] Const General: cooperative, healthy appearing and comfortable [facility] Head: normal to inspection, normocephalic and [...] Diagnoses Ventral hernia K43.9 02/02/25 1324 k MD> Date _ Desean Rodriguez MD Cosign Signature: Date (if applicable) CC: ~ [facility]05-21-2025 Progress note Author Desean Rodriguez [facility] Note Date/Time February 02, 2025 1:24p [facility] [address] [place] [address] OFFICE VISIT Date of Service: 02/02/25 MR#: [id number] Acct: [id number] Name: DANE OLIVERA Rep #: [id number] : 1985 Provider: Dr. Griffin Rodriguez MD Age/Sex: 39/F Location: [facility] Status: Signed Intake Vital Signs 01/15/25 17:48 [...] 25 mg 25 mg PO QDAY 02/02/25 05/2 10/09 History tablet,extended release 24 hr solifenacin 10 mg tablet 10 mg PO QDAY 02/02/2502/02 History sumatriptan succinate 25 mg tablet 25 mg PO ONCE PRN 0 02/02/25 02/02/25 History venlafaxine 75 mg capsule,extended 75 mg PO QAM 02/02/25 History release 24 hr [facility] History Tachycardia IUD (intrauterine device) in [...] Const General: cooperative, healthy appearing and comfortable [facility] Head: normal to inspection, normocephalic and [...] by Desean medellin MD> Date _ Desean Cardoza Signature: Date (if applicable) CC: ~ [facility] Work Phone: 1(511) 648-624704-18-2025 NoteHNO ID: [id number] Author: HUI VALDES APRN.CELL EFFICIENCY SUPERVISOR Service: ? Author Type: Nurse Practitioner Type: [...] Abs Lymph 1.00 - 4.00 k/uL 2.90 Villalba% % 9.4 Abs Villalba <0.87 k/uL (more content not included)...[facility] 12-31-2024 History of Present illness Narrative* PodlogarHui APRN.CELL EFFICIENCY SUPERVISOR - 12/31/2024 12:58 PM EDT 12/29/2024 Patient [...] in partial remission, most recent episode mixed ([facility]) 10/04/2019 Depression, major, recurrent, moderate ([facility]) 07/07/2018 Diet controlled gestational diabetes mellitus (GDM) in second trimester ([facility]) 07/05/2022 Drug use disorder remission since 06/2019; methamphetamines, marijuana Gastritis due to Helicobacter species 11/26/2021 Genital warts 1--09 Never seen again GERD without esophagitis 02/08/2022 Grand multiparity 09/11/2022 - history 4 prior SVDs, this will be delivery #5 - admission CBC 11.9 Group B 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 [...] Level: 4 - Moderate documented [facility] Telephone encounter Note * Telephone Encounter - Young Montelongo RN - 12/29/2024 8:06 AM EDT Please contact patient to schedule IUD removal. Young Montelongo RN [facility]04-16-2025 Miscellaneous Notes* Telephone Encounter - Young Montelongo RN - 12/29/2024 8:06 AM EDT Please contact patient to schedule IUD removal. Young Montelongo RN * Telephone Encounter - Temitope Bera APRN.CNM - 12/28/2024 4:59 PM EDT Order [...] you. Frances Parnell RN documented in this encounterSub[facility]04[facility] Telephone encounter Note * Telephone Encounter - Temitope Bear APRN.CNM - 12/28/2024 4:59 PM EDT Order signed. Temitope Bear APRN.CNM [facility]04-15-2025 Telephone encounter Note* Telephone Encounter - Frances Parnell RN - 12/28/2024 4:42 PM EDT Received the following message from PSS: Patient is requesting to have their IUD removed. Please put in a order for this so that it can be scheduled. Order pending. Please file and then route to scheduling. Thank you. Frances Parnell, RN [facility]02-03-2025 NoteHNO ID: [id number] Author: TEMITOPE BEAR APRN.NANCY Service: ? Author Type: Medical Assistant Per Diem Type: Progress Notes Filed: 10/18/2024 13:09 Note Text: Dane is a 39 year old who presents [...] L5 SAB0 IAB1 Ectopic0 Multiple0 Live Births5 Trekking Guide History LMP: 10/11/2024 (Approximate), IUD Age at Menarche: 9 Age at First : 21 Age at Menopause: Trekking Guide History Comments: Sexual Activity: Yes; Male Contraception: [...] SECTION HX EGD DIAGNOSTIC 01/17/2023 INDUCED BY [facility] 2008 FAMILY HISTORY Problem Relation Age of [...] discussed with the Patient or Patient's Authorized Care Team Assistant. As applicable, any other physician, advance practice provider, medical student, or other health professional student that will be observing or involved in the sensitive examination for educational or training purposes was discussed with the Patient or Authorized Care Team Assistant. The Patient or Authorized Care Team Assistant has agreed to proceed with the sensitive [...] BREAST: soft, non-tender, sy (more content not included)...[facility]02-03-2025 History of Present illness Narrative* Temitope Bear APRN.DAVEY - 10/18/2024 10:00 AM EST Dane is a 39 year old who presents [...] L5 SAB0 IAB1 Ectopic0 Multiple0 Live Births5 Trekking Guide History LMP: 10/11/2024 (Approximate), IUD Age at Menarche: 9 Age at First : 21 Age at Menopause: Trekking Guide History Comments: Sexual Activity: Yes; Male Contraception: [...] discussed with the Patient or Patient's Authorized Care Team Assistant. As applicable, any other physician, advance practice provider, medical student, or other health professional student that will be observing or involved in the sensitive examination for educational or training purposes was discussed with the Patient or Authorized Care Team Assistant. The Patient or Authorized Care Team Assistant has agreed to proceed with the sensitive [...] external genitalia normal, normal Bartholin's glands, urethra, [place]'s glands, no vulvar lesions, no cervical lesions, [...] needed Temitope Bear APRN.CNM documented in this encounterSub[facility]01-29-[facility] Telephone encounter Note * Telephone Encounter - Sharon Warren RN - 10/13/2024 7:47 PM EST Please see other MyChart request with med refills in it. [facility]01-29-2025 Miscellaneous Notes* Telephone Encounter - Sharon Warren RN - 10/13/2024 7:47 PM EST Please see other MyChart request with med refills in it. documented in this encounterSub[facility] Telephone encounter Note * Telephone Encounter - Sharon Warren RN - 10/13/2024 7:41 PM EST Pt sends in [employer] request for med refills. Pt has a [facility] in [place] as preferred pharmacy. Pt lives in [place] and last scripts went to [facility]. Called and confirmed with pt that was an error and she would like prescriptions to go to [facility]. The last office visit in the department: [...] Warren RN October 13, 2024 7:41 PM [facility]01-29-2025 Miscellaneous Notes* Telephone Encounter - Sharon Warren RN - 10/13/2024 7:41 PM EST Pt sends in [employer] request for med refills. Pt has a [facility] pharmacy in [place] as preferred pharmacy. Pt lives in [place] and last scripts went to [facility]. Called and confirmed with pt that was an error and she would like prescriptions to go to [facility]. The last office visit in the department: [...] 13, 2024 7:41 PM documented in this encounterSub[facility]11-29-[facility]24 Telephone encounter Note * Telephone Encounter - Rebecca Rhodes - 08/13/2024 3:44 PM EST POPULATION HEALTH NAVIGATION OUTREACH Action/ 1st attempt, call placed to pt for PT consult for OAB (overactive bladder) [N32.81]. Order is 07/05/24. Pt declined to [facility] at this time. Pt plans to go [...] Rebecca Rhodes August 13, 2024 3:44 PM [facility]11-29-[facility]24 Miscellaneous Notes* Telephone Encounter - Rebecca Rhodes - 08/13/2024 3:44 PM EST POPULATION HEALTH NAVIGATION OUTREACH Action/ attempt, call placed to pt for PT consult for OAB (overactive bladder) [N32.81]. Order is 07/05/24. Pt declined to [facility] at this time. Pt plans to go [...] 13, 2024 3:44 PM documented in this encounterSub[facility]11-11-2024 Telephone encounter Note * Telephone Encounter [...] needed for migraine headache (see administration instructions). oLurdes Whitehead MA July 26, 2024 7:32 PM [facility]11-11-2024 Miscellaneous Notes* Telephone Encounter - Lourdes [...] 26, 2024 7:32 PM documented in this encounterSub[facility]10-[facility]-2024 NoteHNO ID: [id number] Author: HUI VALDES APRN.CELL EFFICIENCY SUPERVISOR Service: ? Author Type: Nurse Practitioner Type: [...] to pelvic floor therapy but moved from [place] which is were she was going to [...] nausea, vomiting, or diarrhea : See HPI CARTOON DESIGNER: Negative for abnormal vaginal bleeding, abnormal vaginal [...] with normal S1 and (more content not included)...[facility]10-21-2024 History of Present illness Narrative* PodlogarHui APRN.CELL EFFICIENCY SUPERVISOR - 07/05/2024 1:02 PM EDT 07/05/2024 Patient [...] to pelvic floor therapy but moved from [place] which is were she was going to [...] nausea, vomiting, or diarrhea : See HPI CARTOON DESIGNER: Negative for abnormal vaginal bleeding, abnormal vaginal [...] Influenza Vaccine(1) due on 05/16/2024 Covid-19 Vaccine( season) due on 05/16/2024 BP Controlled (<130/80) [...] Z11.51 - CONSULT TO GYNECOLOGY Hui Valdes APRN.TIMBO Prescription instructions reviewed with patient as applicable. [...] Level: 4 - Moderate documented in this encounterSub[facility]04-17-2024 Miscellaneous Notes* Telephone Encounter - Michelle Osborn LPN - 12/31/2023 7:45 AM EDT Sent to covering provider documented in this encounterSub[facility]02-23-2024 NoteHNO ID: [id number] Author: JOANNA WILKES MD Service: ? Author Type: Physician Type: Progress Notes Filed: 12/14/2023 10:49 Note Text: [facility] NEW PATIENT CONSULT/HISTORY AND PHYSICAL PATIENT: Dane Olivera (38 year old) REFERRING PROVIDER: Ernesto Carlin PCP: Ernesto Carlin MD Consultation requested by Ernesto Carlin for an opinion regarding Dane Olivera. 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 Author Type: Physician Type: Progress Notes Filed: 03/26/2023 2:29 PM Note Text: SURGICAL SERVICES HISTORY AND PHYSICAL EXAMINATION SERVICE DATE: 03/26/2023 SERVICE TIME: 2:13 PM PRIMARY CARE PHYSICIAN: Ernesto Carlin MD SUBJECTIVE CHIEF COMPLAINT: hernia HISTORY [...] SECTION HX EGD DIAGNOSTIC 01/17/2023 INDUCED BY [facility] 2008 FAMILY HISTORY: FAMILY HISTORY Problem Relation [...] rarely Drug use: N (more content not included)...[facility]07-12-2023 History of Present illness Narrative* Jessenia Grace MD - 03/26/2023 2:13 PM EDT SURGICAL SERVICES HISTORY AND PHYSICAL EXAMINATION SERVICE DATE: 03/26/2023 SERVICE TIME: 2:13 PM PRIMARY CARE PHYSICIAN: Ernesto Carlin MD SUBJECTIVE CHIEF COMPLAINT: hernia HISTORY [...] visit: EMR reviewed Plan ASSESSMENT AND PLAN Dane Olivera is a 37 year old female [...] Decision Making Level: 4 - Moderate SIGNATURE: Jessenia Grace MD PATIENT NAME: Dane Olivera DATE: March 26, 2023 TIME: 2:13 PM PAGER/CONTACT #: [phone] documented in this encounterSub[facility]05[facility] History of Past illness Narrative* Problem [...] of this encounter (statuses as of 07/01/2023) [facility]05-[facility] History of Past illness Narrative* Problem [...] 12/10/2022 History of drug use 03/05/2022 10/08/19 23 Overview: - denies recent use - since [...] of this encounter (statuses as of 12/31/2023) [facility]05-[facility] Surgical operation note* Operative Report - Jessenia Grace MD - 01/17/2023 8:35 AM EDT OPERATIVE/PROCEDURE REPORT LOG ID: [id number] Surgery/Procedure Date: Incision/Procedure Start Time: 8:42 AM Incision Close/Procedure End Time: 8:45 AM Surgeon(s)/Proceduralist(s) and 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(s): Surgeon(s) and Role: * Jessenia Grace MD - Proceduralist No Additional Staff [...] or erosions or other abnormalities Operative Indication: Dane Olivera is a 37 year old female [...] None I performed the procedure independently SIGNATURE: Jessenia Grace MD PATIENT NAME: Dane Olivera DATE: January 17, 2023 TIME: 8:51 AM PAGER/CONTACT #: documented in this encounterSub[facility]05-[facility] History and physical note * Julio Dial APRN.CELL EFFICIENCY SUPERVISOR - 01/17/2023 8:30 AM EDT . HISTORY AND PHYSICAL EXAMINATION SERVICE DATE: 01/17/2023 SERVICE TIME: 7:23 AM PRIMARY CARE PHYSICIAN: Ernesto Carlin MD REASON FOR VISIT: Dane Olivera is a 37 year old female who is scheduled for EGD at the request of Dr. Jessenia Grace for routine H&P. The reason for [...] Prior to Admission medications as of 01/17/23 2407 Medication Sig Last Dose Taking SUMAtriptan (IMITREX) 100 mg tablet Take 1 tablet by mouth as needed for migraine headache (see administration instructions). Past Week Yes omeprazole (PRILOSEC) 40 mg capsule Take 1 capsule by mouth once daily. 01/16/2023 Yes hydrocortisone (ANUSOL-HC) 2.5 % rectal cream by RECTAL route twice daily. 01/10/2023 Imuaoocu-Xz-Fzl-Fe-FA tab Take 1 tablet by mouth once [...] requiring medication, no history of angina, CHF, FL, cardiac surgery or stents. Denies rest pain, gangrene or revascularization/amputation for PVD. No history of cardiovascular symptoms or problems. No history of angina, CHF, FL, cardiac surgery or stents. Denies chest pain [...] which included preparing to see the patient, [id number]-[id number] patient care, completing clinical documentation, obtaining and/or reviewing separately obtained history, performing a medically appropriate examination, and counseling and educating the patient/family/caregiver. SIGNATURE: Julio Dial APRN.CNP PATIENT NAME: Dane Olivera DATE: January 17, 2023 TIME: 7:22 AM PAGER/CONTACT #: documented in this encounterSuburban [facility]04-19-2023 NoteHNO ID: [id number] Author: Jessenia Grace MD Service: ? Author Type: Physician Type: Progress Notes Filed: 01/01/2023 2:55 PM Note Text: SURGICAL SERVICES HISTORY AND PHYSICAL EXAMINATION SERVICE DATE: 01/01/2023 SERVICE TIME: 2:25 PM PRIMARY CARE PHYSICIAN: Ernesto Carlin MD SUBJECTIVE CHIEF COMPLAINT: hernia HISTORY [...] Procedure Laterality Date SECTION HX INDUCED BY [facility] 2008 FAMILY HISTORY: FAMILY HISTORY Problem Relation [...] Take 1 capsule by mouth once daily. Vuqqigax-Yb-Abr-Fe-FA tab Take 1 tablet by mouth once daily. (Patient not taking: Reported on 01/01/2023) No current facility-administered medications for this visit. ALLERGIES: ALLERGIES Allergen Reactions Amoxicillin Unknown WAS TOLD BY MOM COMPLETE REVIEW OF SYSTEMS: Review of Systems Constitutional: Negative for chi (more content not included)...[facility]04-19-2023 Miscellaneous Notes* Telephone Encounter - Ese Contreras MA - 01/01/2023 3:55 PM EDT EGD scheduled for 01/17/2023 at 8:30 am. Prep/instructions given to patient at checkout. Ese Contreras MA documented in this encounterSuburban [facility]04-[facility]23 Miscellaneous Notes* Addendum Note - Ese Contreras MA - 01/01/2023 3:54 PM EDTAddended by: ESE CONTRERAS on: 01/01/2023 03:54 PM Modules accepted: Orders documented in this encounterSuburban [facility]04-[facility] History of Present illness Narrative* Jessenia Grace MD - 01/01/2023 2:25 PM EDT Images from the original note were not included. SURGICAL SERVICES HISTORY AND PHYSICAL EXAMINATION SERVICE DATE: 01/01/2023 SERVICE TIME: 2:25 PM PRIMARY CARE PHYSICIAN: Ernesto Carlin MD SUBJECTIVE CHIEF COMPLAINT: hernia HISTORY [...] Take 1 capsule by mouth once daily. Cdklsful-Ot-Ivk-Fe-FA tab Take 1 tablet by mouth once [...] visit: EMR reviewed Plan ASSESSMENT AND PLAN Dane Olivera is a 37 year old female [...] Decision Making Level: 4 - Moderate SIGNATURE: Jessenia Grace MD PATIENT NAME: Dane Olivera DATE: January 01, 2023 TIME: 2:25 PM PAGER/CONTACT #: [id number] documented in this encounterSuburban [facility]03-[facility] History of Present illness Narrative* Ernesto Carlin MD - 12/10/2022 2:20 PM EDT [...] Take 1 capsule by mouth once daily. Lxfagmlt-It-Jtw-Fe-FA tab Take 1 tablet by mouth once [...] 2.5 % TOPICAL CREAM WITH PERINEAL APPLICATOR Ernesto Carlin MD documented in this encounterSuburban [facility]03-28-[facility] History of Present illness Narrative* Alysha Ruff APRN.CELL EFFICIENCY SUPERVISOR - 12/10/2022 9:45 AM EDT Dane Olivera is a 37 year old year old female who presents for a CARTOON DESIGNER problem visit for IUD check. Mirena IUD [...] placed. Alysha Ruff APRN.CNP documented in this encounterSuburban [facility]02-17-[facility] Instructions* Patient Instructions* Alysha Ruff APRN.CNP [...] experiencing severe pelvic pain. documented in this encounterSuburban Community Hospital [facility]02-17-2023 Procedure note* Alysha Ruff APRN.CNP - [...] (exact date). Informed Consent Consent Obtained: Written [place] Protocol A moment to CARE was completed. [...] yes IUD type: Mirena IUD Lot #: [id number] Expiration Date: 07/16/2024 Strings trimmed. Post-Procedure Details: Patient tolerated the procedure well with no immediate complications Patient Education: side effects discussed with patient including irregular spotting. Patient to follow-up PRN any problems. SIGN OUT All instruments, equipment, possible retained foreign bodies accounted for. Post-procedure follow-up management communicated and Plan of Care Visit completed when applicable Alysha Ruff APRN.CELL EFFICIENCY SUPERVISOR documented in this encounterSuburban Community Hospital [facility]02-08-[facility] History of Present illness Narrative* Tricia Rangel MD - 10/23/2022 3:14 PM EST VISIT Dane Olivera is a 37 year old year old here for visit. Delivery Summary: c/s on 09/12 complicated by chtn, no meds ROS/ Recovery: Feeding: Breast and bottle feeding problems: None Menses since delivery: spotting Menstrual pattern prior to : Regular periods [employer] since delivery: Resumed Depression: denies symptoms of [...] Laterality Date SECTION HX INDUCED BY [facility] 2009 FAMILY HISTORY Problem [...] external genitalia normal, normal Bartholin's glands, urethra, [place]'s glands, no vulvar lesions, no cervical lesions, [...] pcp Tricia Rangel MD documented in this encounterSuburban [facility] Hospital [facility]02-07-2023 Miscellaneous Notes* Telephone Encounter - Diane Lee - 10/22/2022 8:56 AM EST Pt LVM requesting to [facility] appt walter/ Kim for hernia. Called back PT no answer LVM documented in this encounterSuburban Community [facility] History of Present illness Narrative* Ernesto Carlin MD - 10/08/2022 11:04 AM EST [...] Laterality Date SECTION HX INDUCED BY D&C 2009 FAMILY HISTORY Problem [...] 1 tablet by mouth every 6 hours. Xvftwbor-Hk-Lpv-Fe-FA tab Take 1 tablet by mouth once [...] has been WNL Check A1C next visit Ernesto Carlin MD [facility] Miscellaneous Notes* Telephone Encounter - Michelle Osborn LPN - 09/19/2022 9:23 AM EST Requested Prescriptions Pending Prescriptions Disp Refills SUMAtriptan (IMITREX) 50 mg tablet 12 tablet 2 Sig: Take 1 tablet by mouth as needed. documented [facility] History of Past illness Narrative* Problem [...] of this encounter (statuses as of 10/08/2022) [facility] History of Past illness Narrative* Problem [...] of this encounter (statuses as of 10/22/2022) [facility] History of Past illness Narrative* Problem [...] of this encounter (statuses as of 10/23/2022) [facility] History of Past illness Narrative* Problem [...] of this encounter (statuses as of 11/01/2022) [facility] History of Past illness Narrative* Problem [...] of this encounter (statuses as of 11/07/2022) [facility] History of Past illness Narrative* Problem [...] of this encounter (statuses as of 12/10/2022) [facility] History of Past illness Narrative* Problem [...] of this encounter (statuses as of 12/10/2022) [facility] History of Past illness Narrative* Problem [...] of this encounter (statuses as of 01/02/2023) [facility] History of Past illness Narrative* Problem [...] of this encounter (statuses as of 01/02/2023) [facility] History of Past illness Narrative* Problem [...] of this encounter (statuses as of 01/18/2023) [facility] History of Past illness Narrative* Problem [...] 12/10/2022 History of drug use 03/05/2022 10/08/19 23 Overview: - denies recent use - since [...] of this encounter (statuses as of 03/27/2023) [facility] Miscellaneous Notes* Quick Notes - Tricia Rangel MD - 09/04/2022 2:42 PM EST Good fm Labor precautions Gdma1- fsbg reviewed only 3 abnormal values Continue diet Weekly nst Reactive nst iol at 38 wga scheduled Hsv- valtrex suppression Gbs positive- abx in labor Chtn- no elevated bps noted, no meds [place]- less than 40 y/o no testing noted .Tricia Rangel MD documented in this encounterSub[facility] Nurse Note* Radha Moore MA - 09/04/2022 2:22 PM EST Movement? Active baby Vaginal Bleeding: NO Vaginal fluid leakage of fluid: NO Contractions: Lyons-Mckinley type Edema: Negative Radha Moore MA documented in this encounterSub[facility] Miscellaneous Notes* Quick Notes - Tato Browning MD - 08/30/2022 2:43 PM EST EFW 76%, darlyn 9, BPP 8/8 BS look good, 1 FBS of 98 IOL pm of 09/09 at 38 wks NST melanie next wk Tato Browning MD, MD documented in this encounterSub[facility] Nurse Note* Radha Moore MA - 08/30/2022 2:36 PM EST Movement? Active baby Vaginal Bleeding: NO Vaginal fluid leakage of fluid: NO Contractions: Lyons-Mckinley type Edema: Trace Radha Moore MA documented in this encounterSub[facility] Miscellaneous Notes* Quick Notes - Tato Browning MD - 08/23/2022 2:31 PM EST 2 FBS of 98 but o/w nl NST R, US next wk Start valtrex 500mg BID for suppression now Medical Decision Making: Problems: Moderate: 2+ stable chronic illnesses Data: Unique test result(s) reviewed: 3+ Unique test(s) ordered: 1 Risk: Moderate: Moderate risk from testing/treatment Medical Decision Making Level: 4 - Moderate Tato Browning MD, MD documented in this encounterSub[facility] Nurse Note* Marielena Vidales MA - 08/23/2022 2:15 PM EST Movement? Active baby Vaginal Bleeding: NO Vaginal fluid leakage of fluid: NO Contractions: no contractions Edema: Negative Marielena Vidales MA documented in this encounterSub[facility] Miscellaneous Notes* Telephone Encounter - Tato Browning MD - 08/16/2022 11:05 AM EST [...] Location Dept Phone 08/23/2022 2:00 PM NST BREAKER TENDER AG [facility] [phone] 08/23/2022 2:30 PM TATO BROWNING [facility] [phone] 08/30/2022 2:15 PM ULTRASOUND BREAKER TENDER [place] [phone] 08/30/2022 3:30 PM TATO BROWNING [place] [phone] 09/04/2022 2:00 PM NST BREAKER TENDER [place] [phone] 09/04/2022 2:30 PM TRICIA RANGEL [place] [phone] 10/08/2022 11:00 AM ERNESTO CARLIN AG [address] [facility] [phone] documented in this encounterSuburban [facility] Miscellaneous Notes* Quick Notes - Tato Browning MD - 08/15/2022 3:00 PM EST BS p BF and lunch creeping up, reviewed approp meals and fu next wk, ngozi since this time covered aneating holiday NST R, repeat next wk Tato Browning MD, MD documented in this encounterSub[facility] Miscellaneous Notes* Addendum Note - Yael [...] feed Yael Hammond APRN.CNM documented in this encounterSub[facility] Instructions* Patient Instructions* Yael Mahmood APRN.CNM [...] mom can give - Talk to your cognos consultant, nurse, and/or doctor while at the hospital about - Ask about local support groups and resources that you can use if you have questions after you go home Please call the office before going to the hospital. If you are , go to the ER at the [facility]. Do not go to the outlying ER s ([place] or [place]). If you need to go to an ER and cannot or will not go downtown, please use one of [facility] s ERs (not [facility], [place] or [facility]). documented in this [facility]11-22-2022 Nurse Note* Radha Moore MA - 08/06/2022 1:04 PM EST Movement? Active baby Vaginal Bleeding: NO Vaginal fluid leakage of fluid: NO Contractions: no contractions Edema: Negative Radha Moore MA documented in this [facility]11-18-2022 Miscellaneous Notes* Quick Notes - Tato Browning MD - 08/02/2022 1:53 PM EST NST R, repeat next wk FBS now nl after changing her p dinner snack Test rx rewritten to reflex qID testing US in 2 wks Tato Browning MD, documented in this [facility]11-18-2022 Nurse Note* Radha Moore MA - 08/02/2022 1:25 PM EST Movement? Active baby Vaginal Bleeding: NO Vaginal fluid leakage of fluid: NO Contractions: Lyons-Mckinley type Edema: Trace Radha Moore MA documented in this encounterSub[facility] Instructions* Patient Instructions* Guanakito Angel PA-C - 07/19/2022 11:46 AM EDT Please call the office before going to the hospital. If you are , go to the ER at the [facility] hospital main [facility]. Do not go to the outlying ER s ([place], [place] or [place]). If you need to go to an ER and cannot or will not go downtown, please use one of [place] s ERs (not [facility], [place] or [facility]). COUNTING YOUR BABY'S MOVEMENTS Your Baby's [...] to begin counting, look at the time. Rafat the start time on the Kick Count Record. Count each time you feel your baby kick, move, roll, flutter, or swish. Continue counting until your baby has moved ten times. Rafat the end time on the Kick Count Record. How many minutes did it take your baby to move ten times? Record this number in the box. If you do not count ten movements in two hours or less, call your health care provider right away for further instructions Day Date Day Date ARIZA Erika Day Date Start Start Start End End [...] What do Octavio Mckinley contractions feel like? Lyons Mckinley contractions can be described as tightening [...] to 10 movements in one hour. References [employer]. False Labor Accessed 11/23/2015. [employer]. Contractions Accessed 11/23/2015. Copyright 8958-3269 The [facility]. All rights reserved This information is provided by the [facility] and is not intended to replace the medical advice of your doctor or health care provider. Please consult your health care provider for advice about a specific medical condition. For additional health information, please contact the Center for Consumer Health Information at the [facility] or toll-free extension [phone]. If you prefer, you may visit [email or web address] or [email or web address]. This document was last reviewed on: 2015 index#4421 is the Best Feeding Your Baby's stomach [...] mom can give - Talk to your cognos consultant, nurse, and/or doctor while at the hospital about - Ask about local support groups and resources that you can use if you have questions after you go home documented in this encounterSub[facility] Miscellaneous Notes* Quick Notes - Guanakito Angel PA-C - 07/19/2022 11:25 AM EDT [...] BPP is 8/8. RTC 2 weeks, NST Guanakito Angel PA-C documented in this encounterSub[facility] Nurse Note* Eliz Friedman MA - 07/19/2022 11:17 AM EDT Movement? Active baby Vaginal Bleeding: NO Vaginal fluid leakage of fluid: NO Contractions: no contractions Edema: Negative Eliz Friedman MA documented in this encounterSub[facility] Instructions* Patient Instructions* Guanakito Angel PA-C - 07/05/2022 11:02 AM EDT Please call the office before going to the hospital. If you are , go [facility] the [facility] at [facility] [place]. Do not go to the outlying ER s ([place] or [place]). If you need to go to an ER and cannot or will not go downtown, please use one of [facility] s ERs (not [place], [place] or [place]). COUNTING YOUR BABY'S MOVEMENTS [...] to begin counting, look at the time. Rafat the start time on the Kick Count Record. Count each time you feel your baby kick, move, roll, flutter, or swish. Continue counting until your baby has moved ten times. Rafat the end time on the Kick Count Record. How many minutes did it take your baby to move ten times? Record this number in the box. If you do not count ten movements in two hours or less, call your health care provider right away for further instructions Day Date Day Day Start Start Start End End End Minutes to reach 10 kicks Minutes to reach 10 kicks Minutes to reach 10 kicks True Vs. False Labor Before true labor begins, you might have false labor pains, also known as Lyons Mckinley contractions. These irregular uterine contractions are perfectly normal and might start to occur from your fourth month of . They are your body s way of getting ready for the real thing. What do Lyons Mckinley contractions feel like? Lyons Mckinley contractions can be described as tightening [...] to 10 movements in one hour. References [employer]. False Labor Accessed 11/23/2015. March . Contractions Accessed 11/23/2015. Copyright 6872-2087 The [facility]. All rights reserved This information is provided by the [facility] and is not intended to replace the medical advice of your doctor or health care provider. Please consult your health care provider for advice about a specific medical condition. For additional health information, please contact the Center for Consumer Health Information at the [facility] or toll-free extension [phone]. If you prefer, you may visit [email or web address] or [email or web address]. This document was last reviewed on: 2015 index#1097 is the Best Feeding Your Baby's stomach [...] mom can give - Talk to your cognos consultant, nurse, and/or doctor while at the hospital about - Ask about local support groups and resources that you can use if you have questions after you go home Type of Remedy: Constipation Safe Medications to Take During Methylcellulose fiber (Citrucel ) Docusate (Colace ) psyllium (Fiberall , Metamucil ) polycarbophil (FiberCon ) polyethylene glycol (MiraLAX )* *Occasional use only documented in this encounterSub[facility] Miscellaneous Notes* Quick Notes - Guanakito Angle PA-C - 07/05/2022 10:52 AM EDT + [...] 36 weeks Rtc 2 weeks, growth US Guanakito Angel PA-C documented in this encounterSub[facility] Nurse Note* Marielena Vidales MA - 07/05/2022 10:26 AM EDT Movement? Active baby Vaginal Bleeding: NO Vaginal fluid leakage of fluid: NO Contractions: no contractions Edema: Trace Marielena Vidales MA documented in this encounterSub[facility] History of Present illness Narrative* Christina Barlow RN - 07/05/2022 9:32 AM EDT DIABETES SELF-MANAGEMENT EDUCATION AND SUPPORT Location: [place] Type of visit: Virtual (with video) individual [...] blood sugars during DIABETES ASSESSMENT: Referring Physician: Guanakito Angel Previous Diabetes Education? No What are [...] Race/Ethnic Origin: White/ Does your culture or cheondoism require any of the following: No cultural/oriental orthodox practices affecting DM Do you have problems [...] Take 1 tablet by mouth twice daily. Yjhkmhud-Yj-Mpx-Fe-FA tab Take 1 tablet by mouth once [...] record. SIGNATURE: Christina Barlow RN PATIENT NAME: Dane Olivera DATE: July 05, 2022 TIME: 9:32 AM PAGER: [phone] documented in this encounterSub[facility] History of Present illness Narrative* Christina Ruiz RD - 07/05/2022 8:04 AM EDT DIABETES SELF-MANAGEMENT EDUCATION AND SUPPORT Location: [place] Type of visit: Virtual (with video) individual [...] Internet, smartphone apps) DIABETES ASSESSMENT: Referring Physician: Guanakito Angel Previous Diabetes Education? No What are [...] Take 1 tablet by mouth twice daily. Blrppkfh-Fw-Qmp-Fe-FA tab Take 1 tablet by mouth once [...] medical record. SIGNATURE: Christina Ruiz MS RD LD CDCES PATIENT NAME: Dane Olivera DATE: July 05, 2022 TIME: 8:04 AM PAGER: documented in this encounterSub[facility]10[facility] Miscellaneous Notes* Telephone Encounter - Celina Subramanian RN - 06/28/2022 3:41 PM EDT Aware of results and recommendations from [place]. 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 I [...] a particular day when that 2 hour rafat is difficult, she can check it at 1 hour and the goal is less than 140. If it appears that diet cannot control her blood sugars (which is sometimes the case in ),we can discuss medications at that time. Typically we prefer insulin, but oral medications may sometimes be substituted based on patient requirements. documented in this encounterSub[facility] Miscellaneous Notes* Telephone Encounter - Celina Subramanian RN - 06/25/2022 4:23 PM EDT Aware of results and will get the 3 hr done on Friday. Aware to fast for 8 hr and to take a snack for after the test. Celina Subramanian RN 1hr GTT:153 documented in this encounterSuburban [facility] Instructions* Patient Instructions* Guanakito Angel PA-C - 06/21/2022 1:30 PM EDT Please call the office before going to the hospital. If you are , go to the ER at the [facility] hospital main [facility]. Do not go to the outlying ER s ([place] or [place]). If you need to go to an ER and cannot or will not go downtown, please use one of [facility] s ERs (not [facility], [place] or [facility]). COUNTING YOUR BABY'S MOVEMENTS Your Baby's [...] to begin counting, look at the time. Rafat the start time on the Kick Count Record. Count each time you feel your baby kick, move, roll, flutter, or swish. Continue counting until your baby has moved ten times. Rafat the end time on the Kick Count Record. How many minutes did it take your baby to move ten times? Record this number in the box. If you do not count ten movements in two hours or less, call your health care provider right away for further instructions Day Start Start Start End End End Minutes to reach 10 kicks Minutes to reach 10 kicks Minutes to reach 10 kicks True Vs. False Labor Before true labor begins, you might have false labor pains, also known as Lyons Mckinley contractions. These irregular uterine contractions are perfectly normal and might start to occur from your fourth month of . They are your body s way of getting ready for the real thing. What do Lyons Mckinley contractions feel like? Octavio Mckinley contractions [...] to 10 movements in one hour. References [employer]. False Labor Accessed 11/23/2015. [employer]. Contractions Accessed 11/23/2015. Copyright 3123-1847 The [facility]. All rights reserved This information is provided by the [facility] and is not intended to replace the medical advice of your doctor or health care provider. Please consult your health care provider for advice about a specific medical condition. For additional health information, please contact the Center for Consumer Health Information at the [facility] or toll-free extension [phone]. If you prefer, you may visit [email or web address] or [email or web address]. This document was last reviewed on: 2015 index#5314 is the Best Feeding Your Baby's stomach [...] mom can give - Talk to your cognos consultant, nurse, and/or doctor while at the hospital about - Ask about local support groups and resources that you can use if you have questions after you go home documented in this encounterSub[facility] Miscellaneous Notes* Quick Notes - Guanakito Angel PA-C - 06/21/2022 1:20 PM EDT + FM. No leaking/bleeding/contractions. Planning . PPBC - discussed. Third trimester labs ordered. GUERO and PTL precautions discussed. Hx HSV: plan suppression at 36 weeks. AMA, Obesity: Plan for o6lymbv growth US at 32 weeks, weekly NSTs at 36 weeks. rtc 2 weeks Guanakito Angel PA-C documented in this encounterSuburban Community [facility] Nurse Note* Radha Moore MA - 06/21/2022 1:14 PM EDT Movement? Active baby Vaginal Bleeding: NO Vaginal fluid leakage of fluid: NO Contractions: no contractions Edema: Negative Radha Moore MA documented in this encounterSuburban [facility] Instructions* Patient Instructions* Guanakito Angel PA-C - 05/10/2022 8:52 AM EDT Please call the office before going to the hospital. If you are , go to the ER at the [facility]. Do not go to the outlying ER s ([place], [place] or [place]). If you need to go to an ER and cannot or will not go downtown, please use one of [facility] s ERs (not [facility], [place] or [facility]). COUNTING YOUR BABY'S MOVEMENTS Your Baby's [...] to begin counting, look at the time. Rafat the start time on the Kick Count Record. Count each time you feel your baby kick, move, roll, flutter, or swish. Continue counting until your baby has moved ten times. Rafat the end time on the Kick Count Record. How many minutes did it take your baby to move ten times? Record this number in the box. If you do not count ten movements in two hours or less, call your health care provider right away for further instructions Day Date LYNDSEY James ARIZA M T W LYNDSEY Simental Start Start Start End End End Minutes [...] ready for the real thing. What do Lyons Mckinley contractions feel like? Lyons Mckinley contractions can be described as tightening [...] to 10 movements in one hour. References [employer]. False Labor Accessed 11/23/2015. [employer]. Contractions Accessed 11/23/2015. Copyright 0258-5165 The [facility]. All rights reserved This information is provided by the [facility] and is not intended to replace the medical advice of your doctor or health care provider. Please consult your health care provider for advice about a specific medical condition. For additional health information, please contact the Center for Consumer Health Information at the [facility] or toll-free extension [phone]. If you prefer, you may visit [email or web address] or [email or web address]. This document was last reviewed on: 2015 index#9610 is the Best Feeding 1. Hbxf-qh-ywlt is best for your baby A. Your [...] baby, no the clock documented in this encounterSuburban Community Hospital [facility] Nurse Note* Anat Arce LPN - 05/10/2022 8:38 AM EDT Movement? Active baby Vaginal Bleeding: NO Vaginal fluid leakage of fluid: NO Contractions: no contractions Edema: Negative Anat Arce LPN documented in this encounterSuburban [facility] Miscellaneous Notes* Quick Notes - Guanakito Angel PA-C - 05/10/2022 8:35 AM EDT [...] Would like script today. rtc 4 weeks Guanakito Angel PA-C documented in this encounterSub[facility] History of Present illness Narrative* Ernesto Carlin MD - 05/06/2022 1:40 PM EDT [...] 8 OUNCES OF LIQUID AND TAKE DIRECTED. Bbrtfemk-Rk-Zyp-Fe-FA tab Take 1 tablet by mouth once [...] next visit - Goal of BP <130/80 Ernesto Carlin MD documented in this encounterSuburban [facility] Miscellaneous Notes* Addendum Note - Guanakito Angel PA-C - 04/05/2022 10:45 AM EDT Addended by: GUANAKITO ANGEL on: 04/05/2022 10:45 AM Modules accepted: Orders * Quick Notes - Guanakito Angel PA-C - 04/05/2022 8:55 AM EDT [...] relief and requesting script. rtc 4 weeks Guanakito Angel PA-C documented in this encounterSub[facility] History of Present illness Narrative* Ernesto Carlin MD - 04/05/2022 10:20 AM EDT [...] 8 HOURS NEEDED FOR NAUSEA AND VOMITING Muljnzah-Ts-Cps-Fe-FA tab Take 1 tablet by mouth once [...] ICD9: 553.1, ICD10: K42.9 Occasional soreness, monitor Ernesto Carlin MD documented in this encounterSuburban Community [facility] Instructions* Patient Instructions* Guanakito Angel PA-C - 04/05/2022 9:20 AM EDT Please call the office before going to the hospital. If you are , go [facility] the [facility] [place]. Do not go to the outlying ER s ([place], [place] or [place]). If you need to go to an ER and cannot or will not go downtown, please use one of [facility] s ERs (not [place] or [place]). is the best feeding Why is Important - is good for babies - Gives nutrients and disease protection - Protects against obesity - Lowers risk of ear infections, asthma, respiratory infections and diarrhea - Protects against sudden infant syndrome (SIDS) - Promotes bonding between mother [...] both mother and baby documented in this encounterSuburban Community [facility] Nurse Note* Eliz Friedman MA - 04/05/2022 8:47 AM EDT Movement? Too early Vaginal Bleeding: Yes provider notified Vaginal fluid leakage of fluid: NO Contractions: no contractions Edema: Negative Eliz Friedman MA [facility] History of Past illness Narrative* Problem [...] of this encounter (statuses as of 09/20/2022) [facility] History of Past illness Narrative* Problem [...] of this encounter (statuses as of 10/04/2022) [facility] Miscellaneous Notes* Telephone Encounter - Ольга Cook APRN.CNP - 02/21/2022 12:18 PM EDT .The following approved medication requests have been transmitted electronically. Signed Prescriptions Disp Refills ondansetron (ZOFRAN) 8 mg tablet 30 tablet 1 Sig: Take 1 tablet by mouth every 8 hours as needed for nausea/vomiting. Ольга Cook APRN.CNP documented [facility] Instructions* Patient Instructions* Tato Browning MD - 02/14/2022 2:53 PM EDT Bleeding in Early Many women experience bleeding in the first trimester. This can be part of the normal process of establishing the , commonly called implantation bleeding or can occur if there is a collection of blood in the uterus (your doctor may refer to this as a subchorionic hemorrhage or ariza bchorionic hematoma). Bleeding can also happen due [...] your questions and concerns. documented [facility] History of Present illness Narrative* Tato Browning MD - 02/14/2022 2:52 PM EDT Dane Olivera is a 36 year old who presents with amen. Rx for PNV. Occ N/V but has not tried OTC unisom. Patient's last menstrual period was 12/05/2021 (exact date). Gestational age by LMP: 10+1 Rh Positive Vaginal bleeding: No Cramping: No HCG: NA Imagin+5 wk IUP with CA, SUNG by US of 09/21/22 Plan: Amen- labs today, melanie NOB 2. Constipation- rec laxative and not stool softener 3. NVP- rec unisom Medical Decision Making: Problems: Moderate: New problem with uncertain prognosis and 2+ stable chronic illnesses Data: Unique test result(s) reviewed: 2 Unique test(s) ordered: 3+ Risk: Moderate: Drug management Medical Decision Making Level: 4 - Moderate Tato Browning MD, MD documented in [facility] History of Present illness Narrative* Ernesto Carlin MD - 02/08/2022 10:00 AM EDT [...] or shortness of breath. Past treatments include SEBASTIAN inhibitors. GERD She complains of heartburn and [...] ICD10: G43.009 Tylenol prn imitrex if severe Ernesto Carlin MD documented [facility] Miscellaneous Notes* Telephone Encounter - Michelle Osborn LPN - 02/01/2022 7:57 AM EDT Pending Prescriptions Disp Refills LISINOPRIL 10 MG TABLET 90 tablet 0 Sig: TAKE 1 TABLET BY MOUTH EVERY DAY THEA: documented in [facility] encounter[facility] Miscellaneous Notes* Telephone Encounter - Celina Subramanian RN - 01/21/2022 10:11 AM EDT Aware of results and transferred to scheduling. HCG : 1,620. US pended. 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 Hypertension This is a new problem. The current episode started more than 1 month ago. The problem is unchanged.The problem is uncontrolled. Pertinent negatives include no chest pain, palpitations or shortness of breath. Past treatments include SEBASTIAN inhibitors. The current treatment provides mild improvement. [...] mixed (HCC) 10/04/2019 Depression, major, recurrent, moderate ([facility]) 07/07/2018 Drug use disorder remission since 06/2019; [...] MG TABLET - BENZONATATE 100 MG CAPSULE Ernesto Carlin MD documented in [facility] encounterSub[facility] History of Present illness Narrative* had [...] she caryn non-smoker denies any wheezing. [facility] Work Phone: [phone] Miscellaneous Notes* Telephone Encounter - Chelsea Winters Ma - 01/07/2022 10:38 AM EDT Patient phones requesting refills as follows: Pending Prescriptions Disp Refills SUMATRIPTAN 50 MG TABLET 12 tablet 5 Sig: TAKE 1 TABLET BY MOUTH NEEDED FOR MIGRAINE HEADACHE(SEE INSTRUCTIONS) THEA: Yes Please review and advise. Chelsea Winters Ma documented in this encounterSub[facility] History of Past illness Narrative* Problem [...] of this encounter (statuses as of 02/08/2022) [facility] History of Past illness Narrative* Problem [...] of this encounter (statuses as of 02/14/2022) [facility] History of Past illness Narrative* Problem [...] of this encounter (statuses as of 02/14/2022) [facility] History of Past illness Narrative* Problem [...] of this encounter (statuses as of 02/21/2022) [facility] History of Past illness Narrative* Problem [...] of this encounter (statuses as of 03/11/2022) [facility] History of Past illness Narrative* Problem [...] of this encounter (statuses as of 03/25/2022) [facility] History of Past illness Narrative* Problem [...] of this encounter (statuses as of 04/05/2022) [facility] History of Past illness Narrative* Problem [...] of this encounter (statuses as of 04/05/2022) [facility] History of Past illness Narrative* Problem [...] of this encounter (statuses as of 04/16/2022) [facility] History of Past illness Narrative* Problem [...] of this encounter (statuses as of 04/24/2022) [facility] History of Past illness Narrative* Problem [...] of this encounter (statuses as of 04/29/2022) [facility] of Past illness Narrative* Problem [...] of this encounter (statuses as of 05/03/2022) [facility] History of Past illness Narrative* Problem [...] of this encounter (statuses as of 05/06/2022) [facility] History of Past illness Narrative* Problem [...] of this encounter (statuses as of 05/07/2022) [facility] History of Past illness Narrative* Problem [...] of this encounter (statuses as of 05/10/2022) [facility] of Past illness Narrative* Problem [...] of this encounter (statuses as of 05/21/2022) [facility] of Past illness Narrative* Problem [...] of this encounter (statuses as of 05/21/2022) [facility] of Past illness Narrative* Problem [...] of this encounter (statuses as of 06/10/2022) [facility] History of Past illness Narrative* Problem [...] of this encounter (statuses as of 06/19/2022) [facility] History of Past illness Narrative* Problem [...] of this encounter (statuses as of 06/21/2022) [facility] of Past illness Narrative* Problem [...] 1 VAVD and SVDx2, most recent in 2011, largest 7lbs 9oz Growth US @ 36w5d, [...] of this encounter (statuses as of 06/25/2022) [facility] History of Past illness Narrative* Problem [...] of this encounter (statuses as of 06/28/2022) [facility] of Past illness Narrative* Problem [...] of this encounter (statuses as of 07/01/2022) [facility] of Past illness Narrative* Problem [...] of this encounter (statuses as of 07/05/2022) [facility] Past illness Narrative* Problem [...] of this encounter (statuses as of 07/05/2022) [facility] Past illness Narrative* Problem [...] of this encounter (statuses as of 07/05/2022) [facility] Past illness Narrative* Problem [...] of this encounter (statuses as of 07/18/2022) [facility] Past illness Narrative* Problem [...] of this encounter (statuses as of 07/19/2022) [facility] Past illness Narrative* Problem [...] of this encounter (statuses as of 07/19/2022) [facility] Past illness Narrative* Problem [...] of this encounter (statuses as of 07/31/2022) [facility] illness Narrative* Problem [...] of this encounter (statuses as of 08/02/2022) [facility] Past illness Narrative* Problem [...] of this encounter (statuses as of 08/02/2022) [facility] Past illness Narrative* Problem [...] of this encounter (statuses as of 08/06/2022) [facility] illness Narrative* Problem [...] of this encounter (statuses as of 08/06/2022) [facility] of Past illness Narrative* Problem [...] of this encounter (statuses as of 08/15/2022) [facility] Past illness Narrative* Problem [...] of this encounter (statuses as of 08/16/2022) [facility] Past illness Narrative* Problem [...] of this encounter (statuses as of 08/22/2022) [facility] Past illness Narrative* Problem [...] of this encounter (statuses as of 08/23/2022) [facility] of Past illness Narrative* Problem [...] of this encounter (statuses as of 08/23/2022) [facility] Past illness Narrative* Problem [...] of this encounter (statuses as of 08/30/2022) [facility] of Past illness Narrative* Problem [...] of this encounter (statuses as of 08/30/2022) [facility] of Past illness Narrative* Problem [...] of this encounter (statuses as of 09/04/2022) [facility] Past illness Narrative* Problem [...] of this encounter (statuses as of 09/04/2022) [facility] History of Past illness Narrative* Problem [...] of this encounter (statuses as of 01/07/2022) [facility] Past illness Narrative* Problem [...] of this encounter (statuses as of 01/11/2022) [facility] of Past illness Narrative* Problem [...] of this encounter (statuses as of 01/18/2022) [facility] Past illness Narrative* Problem [...] of this encounter (statuses as of 01/21/2022) [facility] of Past illness Narrative* Problem [...] of this encounter (statuses as of 02/01/2022) [facility] Author Guille Shin [facility] Note Date/Time February 14, 2025 6:12p m [facility] Medical Records Department [address] [place] [address] Anesthesia Postop Eval II 02/14/25 1637 MR#: [id number] Acct: [id number] Name: DANE OLIVERA Rep #:[id number] : 1985 39 From: Guille Shin MD PCP: Hui Valdes NP-C Status:REG S DC Y Race: C Location: [place] [address] Anesthesia Postop Eval I Sum Postop Eval Completion status Anesthesia document: Postop Eval 1 completed: Yes Anesthesia Postop Eval I Summary Anesthesia Postop Eval I Summary: Anesthesia Postop Eval I: Assessment Summary Airway patent Yes 02/14/25 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 Spontaneous unlabored Yes 02/14/25 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 Anesthesia Complication Comment: Post-operative progress note Anesthesia: Postop Eval II Evaluation Mental status: Awake Pain Level: 0 nausea: No Vomiting: No Complications Anesthesia Complication: No 02/14/25 1637 <Electronically signed by Guille Shin MD> Date _ Guille Shin MD Cosigner Signature: Date CC: ~ Signed [facility] Work Phone: Discharge summary Author Kayden Smith [facility] Note Date/Time February 22, 2025 4:01 am [facility] Medical Records Department [address] [place] [address] Emergency Department Summary 02/22/25 MR#: [id number] Acct: [id number] Name: DANE OLIVERA Rep #:[id number] : 1985 39 From: Kayden Smith DO PCP: KOSTA Gomez Status:REG E R Location: ED HPI History of Present Illness Chief Complaint: Abd Pain Narrative Narrative: Patient is a 39-year-old female with past medical history of recent ventral hernia repair with mesh placement, depression, migraine headaches who presents to the emergency department chief complaint of abdominal pain nausea. Patient states that she is not vomiting but feels like she wants to constantly. Patientstates that she was here earlier today she was sent home she was not given any medications to go home with. She states that she had been trying to take Tylenol and ibuprofen at home and this is not helping her pain therefore she came back here for further evaluation management. Patient rates her pain an 8 out of 10 and states that it is in the right upper abdomen. [facility] Medical History Wears glasses Wears dentures [...] Time amoxicillin Allergy Unknown unknown Verified 02/21/25 23:32 Family History Son Asthma Grandmother Diabetes Breast cancer Father Hypertension Surgical History History of esophagogastroduodenoscopy (EGD) Previous section Social History Smoking Status: Current every day smoker tobacco type: e-cigarettes quit status: not considering quitting ROS ROS ED ROS Narrative Constitutional: Denies any fevers, chills, headaches Eyes: Denies change in vision double vision blurry vision Cardiovascular: Denies chest pain Respiratory: Shortness of breath Abdomen: Complains of abdominal pain and nausea as noted above she states that she is passing gas and had a bowel movement prior to arrival : Denies urinary symptoms Neurological: Denies numbness, weakness, tingling Musculoskeletal: Denies back pain Skin: Denies rashes or lesions EXAM Physical Exam Narrative Exam Narrative: General: Patient lying in bed rest comfortably did not appear to be acute distress Head: Atraumatic, normocephalic Eyes: PERRL bilaterally, EOMI bilaterally, no conjunctival injection noted Neck: Soft, supple, trachea midline Cardiovascular: Regular rate and rhythm no murmurs gallops rubs noted Respiratory: Clear to auscultation bilaterally Abdomen: Soft, nondistended, tenderness to palpation the right upper quadrant positive Arana sign Extremities: +5/5 strength noted in the bilateral upper and lower extremities Neurological: Patient is following commands today she was at [facility] the year is 2024 Skin: Warm, dry, intact surgical incision healing well without concerns for infection Const Vital Signs: 02/21/25 23:30 02/22/25 01:29 02/22/25 03:00 Temperature 98.1 F Temperature Source Oral Pulse Rate 84 70 72 Respiratory Rate 20 H 18 18 Blood Pressure 128/79 H 150/96 H 148/60 H Blood Pressure Mean 95 114 89 Pulse Ox 100 99 Oxygen Delivery Method Room Air Room Air MDM MDM MDM Narrative Medical decision making narrative: Patient is a 39-year-old female who presented to the emergency department the chief complaint of abdominal pain. On the differential diagnosis includes but not limited to cholecystitis, cholelithiasis, pancreatitis, bowel obstruction although have low suspicion for this as she is passing gas had a CT earlier today that did not show any evidence of this and she had a bowel movement prior to arrival. Patient will be on IV fluids morphine Zofran. Patient's workup from earlier today reviewed and showed no evidence leukocytosiswhite blood count was normal at 9, he was 13.5, platelet count of 390. Patient sodium was normal at 140, potassium normal at 5, creatinine normal at 0.73. Patient AST and ALT were 34 and 16 respectively with a normal total bilirubin at0.20. Patient urinalysis did not show any evidence infection. Patient CT abdomen pelvis with IV contrast showed status post ventral hernia repair with findings suggestive of small postoperative seroma in the subcutaneous tissues atthe level of the incision. The remainder of the exam is unchanged. Multiple gallstones noted. Provider's note was reviewed as well and they discussed this with surgery team and ultimately agreed to send the patient home. Patient states that she was not sent home with any medications, which upon review she was not. Patient CBC reviewed showed a white blood cell count of 12,000 hemoglobin was 12.7. Patient's sodium was 139, potassium of 4, creatinine was noted to be 0.79. Patient's AST and ALT were 38 and 18 respectively, lipase normal at 37. Patient's gallbladder showed acute cholecystitis. Patient given dose of IV Zosyn she states that she has not had amoxicillin sinceshe has been a child. Patient was requesting more pain medication which was ordered morphine Zofran. Discussed case with on-call general surgeon Dr. Garcia who accept the patient for admission. Patient notified is agreeable this plan all course concerns answered. Lab Data Labs: Laboratory Results - last 24 hr 02/22/25 00:48 WBC 12.6 H RBC 4.09 L Hgb 12.7 Hct 37.5 MCV 91.7 MCH 31.1 MCHC 33.9 RDW Std Deviation 41.1 RDW Coeff of Concetta 12.3 Plt Count TNP MPV 9.5 Immature Gran % (Auto) 0.200 Neut % (Auto) 66.6 Lymph % (Auto) 23.7 Villalba % (Auto) 7.2 Eos % (Auto) 1.5 Baso % (Auto) 0.8 Absolute Neuts (auto) 8.4 H Absolute Lymphs (auto) 2.99 Nucleated RBC % 0 Differential Comment SCANNED Platelet Estimate ADEQUATE Sodium 139 Potassium 4.0 Chloride 105 Carbon Dioxide 21.6 Anion Gap 12 BUN 10 Creatinine 0.79 Estim Creat Clear Calc 95.38 Est GFR (MDRD) Non-Af 97 BUN/Creatinine Ratio 13.0 Glucose 92 Calcium 9.1 Total Bilirubin < 0.15 AST 38 H ALT 18 Alkaline Phosphatase 59 Total Protein 6.6 Albumin 4.0 Globulin 2.6 Albumin/Globulin Ratio 1.6 Lipase 37 Radiography Diagnostic Testing: Clinical Impression(s) from Imaging Studies Gallbladder Ultrasound 02/22/25 02:16 IMPRESSION: Findings suggest acute calculus cholecystitis. Gallbladder hydrops. Fatty hepatomegaly. Findings were discussed with Dr. Smith at 3:41 am Reading Location: [place] [address] Discharge Plan Triage Chief Complaint: Abd Pain ED Provider: Kayden Smith Dx/Rx/DC Orders Clinical Impression: Abdominal pain, Acute cholecystitis Prescriptions: No Action solifenacin 10 mg tablet [...] Primary Care Provider: Hui Valdes NP Referrals: Hui Valdes NP, OPENER TENDER-C [Primary Care Provider] - Print Language: Israeli Disposition Disposition: Acute Care Hospital [facility] What to do if you have Problems For any increased pain, shortness of breath, bleeding, nausea or vomiting, chestpain, or any unexpected problems, contact your Primary Care Provider. Call [facility] ([phone]) or report to the closest Emergency Room. Call 911 if necessary. 02/22/25 0401 <Electronically signed by Kayden Smith DO> Cosigner Signature (if applicable): CC: KOSTA Ames Podlogyashira ~ Signed [facility] Work Phone: Evaluation note* Diagnosis Acute bronchitis, unspecified organism- Primary Acute serous otitis media of left ear, recurrence not specified Acute diffuse otitis externa of left ear [facility] Work Phone: Evaluation note* Diagnosis Migraine without aura and without status migrainosus, not intractable Migraine without aura, without mention of intractable migraine without mention of status migrainosus [facility] Diagnosis Hypertension, essential- Primary Unspecified essential hypertension Bronchitis Bronchitis, not specified as acute or chronic documented [facility] this [facility]* Diagnosis Women's annual routine gynecological examination- Primary Routine cervical smear Screening for malignant neoplasm of the cervix Secondary amenorrhea Absence of menstruation documented [facility]* Diagnosis care of multigravida, antepartum- Primary documented [facility]* Diagnosis Hypertension, essential Unspecified essential hypertension [facility] Diagnosis Hypertension, essential- Primary Unspecified essential hypertension GERD without esophagitis Esophageal reflux at early stage state, incidental Nausea and vomiting of , antepartum Unspecified vomiting of , antepartum Migraine without aura and without status migrainosus, not intractable Migraine without aura, without mention of intractable migraine without mention of status migrainosus documented [facility]* Diagnosis Amenorrhea, secondary- Primary Absence of menstruation Nausea and vomiting during documented in this [facility]* Diagnosis care of multigravida, antepartum [facility]* Diagnosis Nausea/vomiting in - Primary Unspecified vomiting of , unspecified as to episode of care [facility]* Diagnosis Secondary amenorrhea Absence of menstruation [facility]* Diagnosis Nausea/vomiting in Unspecified vomiting of , unspecified as to episode of care [facility] Diagnosis Multigravida of advanced maternal age [...] specified as infective documented [facility] Diagnosis Hypertension, essential- Primary Unspecified essential hypertension Preexisting hypertension complicating , antepartum Benign essential hypertension antepartum GERD without esophagitis Esophageal reflux Nausea and vomiting of , antepartum Unspecified vomiting of , antepartum Periumbilical hernia Umbilical hernia without mention of obstruction or gangrene [facility] Diagnosis Constipation, unspecified constipation type documented in this encounter [facility] note* Diagnosis Nausea/vomiting in Unspecified vomiting of , unspecified as to episode of care documented in this encounter [facility] note* Diagnosis PUD (peptic ulcer disease)- Primary Peptic ulcer, unspecified site, unspecified as acute or chronic, without mention of hemorrhage, perforation, or obstruction GERD without esophagitis Esophageal reflux Preexisting hypertension complicating , antepartum Benign essential hypertension antepartum [facility] Diagnosis Obesity complicating , second trimester- Primary Encounter for anatomic survey 20 weeks gestation of state, incidental documented in this encounter [facility] note* Diagnosis Preexisting hypertension complicating , antepartum- Primary Benign essential hypertension antepartum AMA (advanced maternal age) multigravida 35+, second trimester Obesity complicating , second trimester Headache in , second trimester 20 weeks gestation of state, incidental [facility] Diagnosis Constipation, unspecified constipation type Headache in , second trimester documented [facility] Diagnosis Headache in , second trimester documented in this encounter [facility] note* Diagnosis Nausea/vomiting in Unspecified vomiting of , unspecified as to episode of care documented in this encounter [facility] note* Diagnosis Headache in , second trimester documented [facility] Diagnosis AMA (advanced maternal age) multigravida 35+, second trimester- Primary 26 weeks gestation of state, incidental 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ng , antepartum, unspecified trimester Obesity complicating , first trimester Preexisting hypertension complicating , antepartum Benign essential hypertension antepartum History of drug use documented in this [facility] Diagnosis Headache in , second trimester documented [facility] Diagnosis Diet controlled gestational diabetes mellitus (GDM) in second trimester- Primary documented [facility]* Diagnosis GDM (gestational diabetes mellitus), class A1 Abnormal maternal glucose tolerance, complicating , childbirth, or the puerperium, unspecified as to episode of care Diet controlled gestational diabetes mellitus (GDM) in second trimester documented [facility] Diagnosis Gestational diabetes mellitus, class A1- Primary Abnormal maternal glucose tolerance, complicating , childbirth, or the puerperium, unspecified as to episode of care 28 weeks gestation of state, incidental Need for pklobxvdjd-bsxudto-cyhsuohpu (Tdap) vaccine Need for prophylactic vaccination with combined dswprvbjpj-rnnrjea-ccpgvudys (DTP) vaccine Obesity complicating , third trimester Constipation, unspecified constipation type 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ng , antepartum, unspecified trimester AMA (advanced maternal age) multigravida 35+, third trimester Preexisting hypertension complicating , antepartum Benign essential hypertension antepartum documented [facility]* Diagnosis Headache in , second trimester documented [facility]* Diagnosis Gestational diabetes mellitus, class A1- [...] of state, incidental documented in [facility]* Diagnosis Gestational diabetes mellitus, class A1 Abnormal maternal glucose tolerance, complicating , childbirth, or the puerperium, unspecified as to episode of care [facility]* Diagnosis Headache in , second trimester 32 weeks gestation of - Primary state, incidental documented in this [facility]* Diagnosis 32 weeks gestation of - Primary state, incidental documented in [facility]* Diagnosis Preexisting hypertension complicating , antepartum- Primary Benign essential hypertension antepartum 32 weeks gestation of state, incidental GDM (gestational diabetes mellitus), class A1 Abnormal maternal glucose tolerance, complicating , childbirth, or the puerperium, unspecified as to episode of care documented [facility] this [facility]* Diagnosis 32 weeks gestation of - Primary state, incidental documented [facility]* Diagnosis AMA (advanced maternal age) multigravida 35+, third trimester- Primary Obesity complicating , third trimester Gestational diabetes mellitus, class A1 Abnormal maternal glucose tolerance, complicating , childbirth, or the puerperium, unspecified as to episode of care Preexisting hypertension complicating , antepartum Benign essential hypertension antepartum 33 weeks gestation of state, incidental Non-stress test reactive Other specified screening documented in this [facility]* Diagnosis 34 weeks gestation of - Primary state, incidental documented in [facility]* Diagnosis Preexisting hypertension complicating , antepartum- Primary Benign essential hypertension antepartum 34 weeks gestation of state, incidental Gestational diabetes mellitus, class A1 Abnormal maternal glucose tolerance, complicating , childbirth, or the puerperium, unspecified as to episode of care documented [facility]* Diagnosis Headache in , second trimester documented [facility] Diagnosis Headache in , second trimester 35 weeks gestation of - Primary state, incidental documented in [facility]* Diagnosis 35 weeks gestation of - Primary state, incidental documented in [facility]* Diagnosis Preexisting hypertension complicating , antepartum- Primary Benign essential hypertension antepartum 35 weeks gestation of state, incidental Gestational diabetes mellitus, class A1 Abnormal maternal glucose tolerance, complicating , childbirth, or the puerperium, unspecified as to episode of care documented [facility] this [facility]* Diagnosis AMA (advanced maternal age) multigravida 35+, third trimester Obesity complicating , third trimester [facility] Diagnosis Preexisting hypertension complicating , antepartum- Primary Benign essential hypertension antepartum 36 weeks gestation of state, incidental Gestational diabetes mellitus, class A1 Abnormal maternal glucose tolerance, complicating , childbirth, or the puerperium, unspecified as to episode of care 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ng , antepartum, unspecified trimester documented in [facility]* Diagnosis 36 weeks gestation of - Primary state, incidental [facility] Diagnosis 37 weeks gestation of - Primary state, incidental Preexisting hypertension complicating , antepartum Benign essential hypertension antepartum Diet controlled gestational diabetes mellitus (GDM) in second trimester 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ng , antepartum, unspecified trimester Group B Streptococcus carrier, antepartum Other current maternal conditions classifiable elsewhere, antepartum [facility] Diagnosis Migraine without aura and without status migrainosus, not intractable Migraine without aura, without mention of intractable migraine without mention of status migrainosus [facility]* Diagnosis Yeast dermatitis- Primary Candidiasis of [...] of gestational diabetes [facility] Diagnosis care and examination- Primary Routine follow-up examination or test, unconfirmed documented in [facility]* Diagnosis Encounter for IUD insertion- Primary Encounter for insertion of intrauterine contraceptive device Routine screening for STI (sexually transmitted infection) Screening examination for venereal disease documented in this [facility]* Diagnosis Encounter for routine checking of intrauterine contraceptive device (IUD)- Primary documented in this [facility]* Diagnosis Hypertension, essential- Primary Unspecified essential hypertension History of gestational diabetes Personal history of gestational diabetes Obesity, Class II, BMI 35-39.9 Obesity, unspecified GERD without esophagitis Esophageal reflux PUD (peptic ulcer disease) Peptic ulcer, unspecified site, unspecified as acute or chronic, without mention of hemorrhage, perforation, or obstruction External hemorrhoid External hemorrhoids without mention of complication documented in this [facility]* Diagnosis Ventral hernia without obstruction or gangrene- Primary Ventral hernia, unspecified, without mention of obstruction or gangrene Class 2 severe obesity with serious comorbidity and body mass index (BMI) of 36.0 to 36.9 in adult, unspecified obesity type (HCC) Gastroesophageal reflux disease, unspecified whether esophagitis present Hypertension, unspecified type documented in this [facility]* Diagnosis Gastroesophageal reflux disease, unspecified whether esophagitis present Pre-op testing Preoperative examination, unspecified Hypertension, essential Unspecified essential hypertension GERD without esophagitis Esophageal reflux Hyperlipidemia, mixed Mixed hyperlipidemia Migraine without aura and without status migrainosus, not intractable Migraine without aura, without mention of intractable migraine without mention of status migrainosus documented in this [facility]* Diagnosis Gastroesophageal reflux disease without esophagitis- Primary Esophageal reflux Class 1 obesity with body mass index (BMI) of 34.0 to 34.9 in adult, unspecified obesity type, unspecified whether serious comorbidity present Ventral hernia without obstruction or gangrene Ventral hernia, unspecified, without mention of obstruction or gangrene documented in this [facility]* Diagnosis Routine physical examination- Primary Routine [...] single bacterial disease documented in this [facility]* Diagnosis Gastroesophageal reflux disease, unspecified whether [...] human papillomavirus (HPV) documented in this [facility]* Diagnosis Gastroesophageal reflux disease, unspecified whether [...] of status migrainosus documented in this [facility]* Diagnosis Gastroesophageal reflux disease, unspecified whether [...] of status migrainosus documented in this [facility]* Diagnosis Gastroesophageal reflux disease, unspecified whether [...] counseling and advice documented [facility]* Diagnosis Gastroesophageal reflux disease, unspecified whether [...] intrauterine contraceptive device documented in this [facility]* Diagnosis Gastroesophageal reflux disease, unspecified whether [...] remission status unspecified documented in this encounter [facility] note* Diagnosis Onset Date Resolution Status Admit Date Ventral hernia acute February 02, 2025 12:47pm [employer] Work Phone: Evaluation note* Diagnosis Gastroesophageal reflux disease, unspecified whether esophagitis present Pre-op testing Preoperative examination, unspecified Hypertension, essential Unspecified essential hypertension GERD without esophagitis Esophageal reflux Hyperlipidemia, mixed Mixed hyperlipidemia Migraine without aura and without status migrainosus, not intractable Migraine without aura, without mention of intractable migraine without mention of status migrainosus Testing of female for genetic disease carrier status- Primary documented in this [facility]* Diagnosis Gastroesophageal reflux disease, unspecified whether esophagitis present Pre-op testing Preoperative examination, unspecified Hypertension, essential Unspecified essential hypertension GERD without esophagitis Esophageal reflux Hyperlipidemia, mixed Mixed hyperlipidemia Migraine without aura and without status migrainosus, not intractable Migraine without aura, without mention of intractable migraine without mention of status migrainosus Adult ADHD- Primary Attention deficit disorder with hyperactivity [facility] Diagnosis Gastroesophageal reflux disease, unspecified whether [...] of status migrainosus documented [facility]* Diagnosis Gastroesophageal reflux disease, unspecified whether [...] of status migrainosus [facility]ructions* Rolan Allen MD - 06/19/2021 Make sure you hydrate yourself well and take Tylenol for any fever develops. Return to the emergency department or see your family doctor should you have worsening chest pain shortness of breath or cough or fever * Attachments The following attachments cannot be sent through Care Everywhere. * Ears: Keeping Dry Instruction (Israeli) * Otitis Externa (Israeli) * Serous Otitis Media (Israeli) * Bronchitis (Israeli) [facility]: Reason for referral (narrative)* Diagnostic Procedure Only (Routine) - Pending Review Specialty Diagnoses / Procedures Referred By Kalin simental Referred To Contact [facility] [place] Diagnoses care of multigravida, antepartum Procedures OBSTETRIC ULTRASOUND WHI US PREG UTERUS AFTER 1ST TRIMEST 1 GESTATION Rolan Dexter, [address] [place] [address] [facility] [place][Note 2] [address] [place] [id number] Referral ID Status Reason Start Date Expiration Date Visits Requested Visits Authorized [id number] Pending Review Auto-Generat ed Referral 01/21/2022 01/21/2023 1 1 [facility] for referral (narrative)* Diagnostic Procedure Only (Routine) - Pending Review Specialty Diagnoses / Procedures Referred By Contac t Referred To Contact [facility] [place] Diagnoses 15 weeks gestation of Procedures OBSTETRIC ULTRASOUND WHI US PREG UTERUS AFTER 1ST TRIMEST GESTATION Guanakito Angel PA-C [address] [facility] [facility] [address] [place] [address] [facility] [place]Note 2] [address] [place] [address] Referral ID Status Reason Start Date Expiration Date Visits Requested Visits Authorized [id number] Pending Review Auto-Generat ed Referral 04/05/2022 04/05/2023 1 1 [facility] for referral (narrative)* Diagnostic Procedure Only (Routine) - Pending Review Specialty Diagnoses / Procedures Referred By Contac t Referred To Contact [facility] [place] Diagnoses Obesity complicating , second trimester Procedures OBSTETRIC ULTRASOUND WHI US PREG UTERUS AFTER 1ST [place] [address] [place] [address] [address] Referral ID Status Reason Start Date Expiration Date Visits Requested Visits Authorized [id number] Pending Review Auto-Generat ed Referral 05/07/2022 05/07/2023 1 1 T [facility] for referral (narrative)* Diagnostic Procedure Only (Routine) - Authorized Specialty Diagnoses / Procedures Referred By Contac t Referred To Contact [facility] [place] Diagnoses Gestational diabetes mellitus, class A1 Procedures OBSTETRIC ULTRASOUND WHI US PREG UTERUS AFTER 1ST TRIMEST GESTATION Guanakito Angel PA-C [address] [facility] [facility] [address] [place] [address] [facility] [place]Note 2] [address] [place] [address] Referral ID Status Reason Start Date Expiration Date Visits Requested Visits Authorized [id number] Authorized Auto-Generat ed Referral 07/05/2023 4 1 [facility] for referral (narrative)* Outpatient Procedure (Routine) - Pending Review Specialty Diagnoses / Procedures Referred By Contac t Referred To Contact Diagnoses Gestational diabetes mellitus, class A1 Obesity complicating , third trimester Preexisting hypertension complicating , antepartum Procedures NON-STRESS TEST NON-STRESS TEST Guanakito Angel PA-C [address] [facility] [address] [place] [address] Referral ID Status Reason Start Date Expiration Date Visits Requested Visits Authorized [id number] Pending Review Auto-Generat ed Referral 07/19/2022 07/19/2023 10 1 * Transition of Care (Routine) - Ref Not Required Specialty Diagnoses / Procedures Referred By Contac t Referred To Contact Diagnoses Gestational diabetes mellitus, class A1 30 weeks gestation of Procedures CONSULT TO MATERNAL MEDICINE (AG) Guanakito Angel PA-C [address] [facility] [address] [place] [address] Referral ID Status Reason Start Date Expiration Date Visits Requested Visits Authorized [id number] Ref Not Required PCP Requested Referral 07/19/2022 10/17/2022 1 1 [facility] for referral (narrative)* Diagnostic Procedure Only (Routine) - Authorized Specialty Diagnoses / Procedures Referred By Contac t Referred To Contact [facility] Diagnoses AMA (advanced maternal age) multigravida 35+, third trimester Obesity complicating , third trimester Procedures OBSTETRIC ULTRASOUND WHI US PREG UTERUS AFTER 1ST TRIMEST GESTATION Yael Mahmood, [employer].CNM [address] [place] [address] [facility] [place]Note 2] [address] [place] [address] Referral ID Status Reason Start Date Expiration Date Visits Requested Visits Authorized [id number] Authorized Auto-Generat ed Referral 2 08/06/2023 1 1 * Outpatient Procedure (Routine) - Pending Review Specialty Diagnoses / Procedures Referred By Contac t Referred To Contact Diagnoses AMA (advanced maternal age) multigravida 35+, third trimester Obesity complicating , third trimester Gestational diabetes mellitus, class A1 33 weeks gestation of Non-stress test reactive Procedures NON-STRESS TEST NON-STRESS TEST Yael Mahmood APRN.CNM [address] [facility] [address] [place] [address] Referral ID Status Reason Start Date Expiration Date Visits Requested Visits Authorized [id number] Pending Review Auto-Generat ed Referral 2 08/06/2023 1 1 [facility] for referral (narrative)* Outpatient Procedure (Routine) - Pending Review Specialty Diagnoses / Procedures Referred By Kalin t Referred To Contact [facility] Diagnoses Gastroesophageal reflux disease, unspecified whether esophagitis present Procedures EGD DIAGNOSTIC EGD DIAGNOSTIC ESOPHAGOGASTRODUODENOSC OPY TRANSORAL DIAGNOSTIC Jessenia Grace MD 1 [facility] [address] [place] [address] [facility] [address] [place] [address] Referral ID Status Reason Start Date Expiration Date Visits Requested Visits Authorized [id number] Pending Review Auto-Generat ed Referral 01/01/2023 01/02/2024 1 1 [facility] for referral (narrative)* Outpatient Procedure (Routine) - Closed Specialty Diagnoses / Procedures Referred By Contac t Referred To Contact [facility] Diagnoses Gastroesophageal reflux disease, unspecified whether esophagitis present Procedures EGD DIAGNOSTIC EGD DIAGNOSTIC ESOPHAGOGASTRODUODENOSC OPY TRANSORAL DIAGNOSTIC Jessenia Grace MD 1 [facility] [address] [place] [address] [facility] [place] [address] [place] [address] Referral ID Status Reason Start Date Expiration Date V isits Requested Visits Authorized [id number] Closed Auto-Generate d Referral 01/01/2023 01/02/2024 1 1 [facility] for referral (narrative)* Diagnostic Procedure Only (Routine) - Authorized Specialty Diagnoses / Procedures Referred By Kalin simental Referred To Contact [facility] Diagnoses Encounter for screening mammogram for breast cancer Dense breast tissue Procedures CHARIS SCREENING W JORGE SCREENING DIGITAL BREAST TOMOSYNTHESIS BI SCREENING MAMMOGRAPHY BI 2-VIEW BREAST INC Temitope Blevins APRN.CNM [address] [place] [address] [facility] [address] [place] [address] Referral ID Status Reason Start Date Expiration Date Visits Requested Visits Authorized [id number] Authorized Auto-Generat ed Referral 10/18/2024 11/17/2025 1 1 [facility] for referral (narrative)No reason for referral information [facility] Work Phone: Reason for visit Narrative* Outpatient Procedure (Routine) - Closed Specialty Diagnoses / Procedures Referred By Kalin simental Referred To Contact [facility] Diagnoses Gastroesophageal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 the event this information is protected by the Federal Confidentiality of Alcohol and Drug Abuse Patient Records regulations: The Federal rules restrict any use of the information to criminally investigate or prosecute any alcohol or drug abuse patient.[facility] HospitalIn the event this information is protected by the Federal Confidentiality of Alcohol and Drug Abuse Patient Records regulations: The Federal rules restrict any use of the information to criminally investigate or prosecute any alcohol or drug abuse patient.[facility] HospitalIn the event this information is protected by the Federal Confidentiality of Alcohol and Drug Abuse Patient Records regulations: The Federal rules restrict any use of the information to criminally investigate or prosecute any alcohol or drug abuse patient.[facility] HospitalIn the event this information is protected by the Federal Confidentiality of Alcohol and Drug Abuse Patient Records regulations: The Federal rules restrict any use of the information to criminally investigate or prosecute any alcohol or drug abuse patient.[facility] HospitalIn the event this information is protected by the Federal Confidentiality of Alcohol and Drug Abuse Patient Records regulations: The Federal rules restrict any use of the information to criminally investigate or prosecute any alcohol or drug abuse patient.[facility] HospitalIn the event this information is protected by the Federal Confidentiality of Alcohol and Drug Abuse Patient Records regulations: The Federal rules restrict any use of the information to criminally investigate or prosecute any alcohol or drug abuse patient.[facility] HospitalIn the event this information is protected by the Federal Confidentiality of Alcohol and Drug Abuse Patient Records regulations: The Federal rules restrict any use of the information to criminally investigate or prosecute any alcohol or drug abuse patient.[facility] HospitalIn the event this information is protected by the Federal Confidentiality of Alcohol and Drug Abuse Patient Records regulations: The Federal rules restrict any use of the information to criminally investigate or prosecute any alcohol or drug abuse patient.[facility] HospitalIn the event this information is protected by the Federal Confidentiality of Alcohol and Drug Abuse Patient Records regulations: The Federal rules restrict any use of the information to criminally investigate or prosecute any alcohol or drug abuse patient.[facility] HospitalIn the event this information is protected by the Federal Confidentiality of Alcohol and Drug Abuse Patient Records regulations: The Federal rules restrict any use of the information to criminally investigate or prosecute any alcohol or drug abuse patient.[facility] HospitalIn the event this information is protected by the Federal Confidentiality of Alcohol and Drug Abuse Patient Records regulations: The Federal rules restrict any use of the information to criminally investigate or prosecute any alcohol or drug abuse patient.[facility] HospitalIn the event this information is protected by the Federal Confidentiality of Alcohol and Drug Abuse Patient Records regulations: The Federal rules restrict any use of the information to criminally investigate or prosecute any alcohol or drug abuse patient.[facility] HospitalIn the event this information is protected by the Federal Confidentiality of Alcohol and Drug Abuse Patient Records regulations: The Federal rules restrict any use of the information to criminally investigate or prosecute any alcohol or drug abuse patient.[facility] HospitalIn the event this information is protected by the Federal Confidentiality of Alcohol and Drug Abuse Patient Records regulations: The Federal rules restrict any use of the information to criminally investigate or prosecute any alcohol or drug abuse patient.[facility] HospitalIn the event this information is protected by the Federal Confidentiality of Alcohol and Drug Abuse Patient Records regulations: The Federal rules restrict any use of the information to criminally investigate or prosecute any alcohol or drug abuse patient.[facility] HospitalIn the event this information is protected by the Federal Confidentiality of Alcohol and Drug Abuse Patient Records regulations: The Federal rules restrict any use of the information to criminally investigate or prosecute any alcohol or drug abuse patient.[facility] HospitalIn the event this information is protected by the Federal Confidentiality of Alcohol and Drug Abuse Patient Records regulations: The Federal rules restrict any use of the information to criminally investigate or prosecute any alcohol or drug abuse patient.[facility] HospitalIn the event this information is protected by the Federal Confidentiality of Alcohol and Drug Abuse Patient Records regulations: The Federal rules restrict any use of the information to criminally investigate or prosecute any alcohol or drug abuse patient.[facility] HospitalIn the event this information is protected by the Federal Confidentiality of Alcohol and Drug Abuse Patient Records regulations: The Federal rules restrict any use of the information to criminally investigate or prosecute any alcohol or drug abuse patient.[facility] HospitalIn the event this information is protected by the Federal Confidentiality of Alcohol and Drug Abuse Patient Records regulations: The Federal rules restrict any use of the information to criminally investigate or prosecute any alcohol or drug abuse patient.[facility] HospitalIn the event this information is protected by the Federal Confidentiality of Alcohol and Drug Abuse Patient Records regulations: The Federal rules restrict any use of the information to criminally investigate or prosecute any alcohol or drug abuse patient.[facility] HospitalIn the event this information is protected by the Federal Confidentiality of Alcohol and Drug Abuse Patient Records regulations: The Federal rules restrict any use of the information to criminally investigate or prosecute any alcohol or drug abuse patient.[facility] HospitalIn the event this information is protected by the Federal Confidentiality of Alcohol and Drug Abuse Patient Records regulations: The Federal rules restrict any use of the information to criminally investigate or prosecute any alcohol or drug abuse patient.[facility] HospitalIn the event this information is protected by the Federal Confidentiality of Alcohol and Drug Abuse Patient Records regulations: The Federal rules restrict any use of the information to criminally investigate or prosecute any alcohol or drug abuse patient.[facility] HospitalIn the event this information is protected by the Federal Confidentiality of Alcohol and Drug Abuse Patient Records regulations: The Federal rules restrict any use of the information to criminally investigate or prosecute any alcohol or drug abuse patient.[facility] HospitalIn the event this information is protected by the Federal Confidentiality of Alcohol and Drug Abuse Patient Records regulations: The Federal rules restrict any use of the information to criminally investigate or prosecute any alcohol or drug abuse patient.[facility] HospitalIn the event this information is protected by the Federal Confidentiality of Alcohol and Drug Abuse Patient Records regulations: The Federal rules restrict any use of the information to criminally investigate or prosecute any alcohol or drug abuse patient.[facility] HospitalIn the event this information is protected by the Federal Confidentiality of Alcohol and Drug Abuse Patient Records regulations: The Federal rules restrict any use of the information to criminally investigate or prosecute any alcohol or drug abuse patient.[facility] HospitalIn the event this information is protected by the Federal Confidentiality of Alcohol and Drug Abuse Patient Records regulations: The Federal rules restrict any use of the information to criminally investigate or prosecute any alcohol or drug abuse patient.[facility] HospitalIn the event this information is protected by the Federal Confidentiality of Alcohol and Drug Abuse Patient Records regulations: The Federal rules restrict any use of the information to criminally investigate or prosecute any alcohol or drug abuse patient.[facility] HospitalIn the event this information is protected by the Federal Confidentiality of Alcohol and Drug Abuse Patient Records regulations: The Federal rules restrict any use of the information to criminally investigate or prosecute any alcohol or drug abuse patient.[facility] HospitalIn the event this information is protected by the Federal Confidentiality of Alcohol and Drug Abuse Patient Records regulations: The Federal rules restrict any use of the information to criminally investigate or prosecute any alcohol or drug abuse patient.[facility] HospitalIn the event this information is protected by the Federal Confidentiality of Alcohol and Drug Abuse Patient Records regulations: The Federal rules restrict any use of the information to criminally investigate or prosecute any alcohol or drug abuse patient.[facility] HospitalIn the event this information is protected by the Federal Confidentiality of Alcohol and Drug Abuse Patient Records regulations: The Federal rules restrict any use of the information to criminally investigate or prosecute any alcohol or drug abuse patient.[facility] HospitalIn the event this information is protected by the Federal Confidentiality of Alcohol and Drug Abuse Patient Records regulations: The Federal rules restrict any use of the information to criminally investigate or prosecute any alcohol or drug abuse patient.[facility] HospitalIn the event this information is protected by the Federal Confidentiality of Alcohol and Drug Abuse Patient Records regulations: The Federal rules restrict any use of the information to criminally investigate or prosecute any alcohol or drug abuse patient.[facility] HospitalIn the event this information is protected by the Federal Confidentiality of Alcohol and Drug Abuse Patient Records regulations: The Federal rules restrict any use of the information to criminally investigate or prosecute any alcohol or drug abuse patient.[facility] HospitalIn the event this information is protected by the Federal Confidentiality of Alcohol and Drug Abuse Patient Records regulations: The Federal rules restrict any use of the information to criminally investigate or prosecute any alcohol or drug abuse patient.[facility] HospitalIn the event this information is protected by the Federal Confidentiality of Alcohol and Drug Abuse Patient Records regulations: The Federal rules restrict any use of the information to criminally investigate or prosecute any alcohol or drug abuse patient.[facility]In the event this information is protected by the Federal Confidentiality of Alcohol and Drug Abuse Patient Records regulations: The Federal rules restrict any use of the information to criminally investigate or prosecute any alcohol or drug abuse patient.[facility] HospitalIn the event this information is protected by the Federal Confidentiality of Alcohol and Drug Abuse Patient Records regulations: The Federal rules restrict any use of the information to criminally investigate or prosecute any alcohol or drug abuse patient.[facility] HospitalIn the event this information is protected by the Federal Confidentiality of Alcohol and Drug Abuse Patient Records regulations: The Federal rules restrict any use of the information to criminally investigate or prosecute any alcohol or drug abuse patient.[facility] HospitalIn the event this information is protected by the Federal Confidentiality of Alcohol and Drug Abuse Patient Records regulations: The Federal rules restrict any use of the information to criminally investigate or prosecute any alcohol or drug abuse patient.[facility] HospitalIn the event this information is protected by the Federal Confidentiality of Alcohol and Drug Abuse Patient Records regulations: The Federal rules restrict any use of the information to criminally investigate or prosecute any alcohol or drug abuse patient.[facility] HospitalIn the event this information is protected by the Federal Confidentiality of Alcohol and Drug Abuse Patient Records regulations: The Federal rules restrict any use of the information to criminally investigate or prosecute any alcohol or drug abuse patient.[facility]In the event this information is protected by the Federal Confidentiality of Alcohol and Drug Abuse Patient Records regulations: The Federal rules restrict any use of the information to criminally investigate or prosecute any alcohol or drug abuse patient.[facility]In the event this information is protected by the Federal Confidentiality of Alcohol and Drug Abuse Patient Records regulations: The Federal rules restrict any use of the information to criminally investigate or prosecute any alcohol or drug abuse patient.[facility]In the event this information is protected by the Federal Confidentiality of Alcohol and Drug Abuse Patient Records regulations: The Federal rules restrict any use of the information to criminally investigate or prosecute any alcohol or drug abuse patient.[facility]In the event this information is protected by the Federal Confidentiality of Alcohol and Drug Abuse Patient Records regulations: The Federal rules restrict any use of the information to criminally investigate or prosecute any alcohol or drug abuse patient.[facility]In the event this information is protected by the Federal Confidentiality of Alcohol and Drug Abuse Patient Records regulations: The Federal rules restrict any use of the information to criminally investigate or prosecute any alcohol or drug abuse patient.[facility]In the event this information is protected by the Federal Confidentiality of Alcohol and Drug Abuse Patient Records regulations: The Federal rules restrict any use of the information to criminally investigate or prosecute any alcohol or drug abuse patient.[facility] HospitalIn the event this information is protected by the Federal Confidentiality of Alcohol and Drug Abuse Patient Records regulations: The Federal rules restrict any use of the information to criminally investigate or prosecute any alcohol or drug abuse patient.[facility]In the event this information is protected by the Federal Confidentiality of Alcohol and Drug Abuse Patient Records regulations: The Federal rules restrict any use of the information to criminally investigate or prosecute any alcohol or drug abuse patient.[facility] Care Teams (unrecognized sec tion and content) [employer] Relationship Specialty Start Date End Date Ernesto Carlin MD PCP - General Family Practice 07/07/18 [employer] [employer] Relationship Specialty Start Date End Date Ernesto Carlin MD PCP - General Family Practice 07/07/18 [employer] [employer] Relationship Specialty Start Date End Date Ernesto Carlin MD PCP - General Family Practice 07/07/18 [place] [employer] Relationship Specialty Start Date End Date Ernesto Carlin MD PCP - General Family Practice 07/07/18 [place] [employer] Relationship Specialty Start Date End Date Ernesto Carlin MD PCP - General Family Practice 07/07/18 [place] [employer] Relationship Specialty Start Date End Date Ernesto Carlin MD PCP - General Family Practice 07/07/18 [place] [employer] Relationship Specialty Start Date End Date Ernesto Carlin MD PCP - General Family Practice 07/07/18 [employer] [employer] Relationship Specialty Start Date End Date Ernesto Carlin MD PCP - General Family Practice 07/07/18 [place] [employer] Relationship Specialty Start Date End Date Ernesto Carlin MD PCP - General Family Practice 07/07/18 [place] [employer] Relationship Specialty Start Date End Date Ernesto Carlin MD PCP - General Family Practice 07/07/18 [place] [employer] Relationship Specialty Start Date End Date Ernesto Carlin MD PCP - General Family Practice 07/07/18 [place] [employer] Relationship Specialty Start Date End Date Ernesto Carlin MD PCP - General Family Practice 07/07/18 [place] [employer] Relationship Specialty Start Date End Date Ernesto Carlin MD PCP - General Family Practice 07/07/18 [place] [employer] Relationship Specialty Start Date End Date Ernesto Carlin MD PCP - General Family Medicine 07/07/18 [place] [employer] Relationship Specialty Start Date End Date Ernesto Carlin MD PCP - General Family Medicine 07/07/18 [place] [employer] Relationship Specialty Start Date End Date Ernesto Carlin MD PCP - General Family Medicine 07/07/18 [place] [employer] Relationship Specialty Start Date End Date Ernesto Carlin MD PCP - General Family Medicine 07/07/18 [place] [employer] Relationship Specialty Start Date End Date Ernesto Carlin MD PCP - General Family Medicine 07/07/18 [place] [employer] Relationship Specialty Start Date End Date Ernesto Carlin MD PCP - General Family Medicine 07/07/18 [place] [employer] Relationship Specialty Start Date End Date Ernesto Carlin MD PCP - General Family Medicine 07/07/18 [place] [employer] Relationship Specialty Start Date End Date Ernesto Carlin MD PCP - General Family Medicine 07/07/18 [place] [employer] Relationship Specialty Start Date End Date Ernesto Carlin MD PCP - General Family Medicine 07/07/18 [place] [employer] Relationship Specialty Start Date End Date Ernesto Carlin MD PCP - General Family Medicine 07/07/18 [place] [employer] Relationship Specialty Start Date End Date Ernesto Carlin MD PCP - General Family Medicine 07/07/18 [place] [employer] Relationship Specialty Start Date End Date Ernesto Carlin MD PCP - General Family Medicine 07/07/18 [place] [employer] Relationship Specialty Start Date End Date Ernesto Carlin MD PCP - General Family Medicine 07/07/18 [place] [employer] Relationship Specialty Start Date End Date Ernesto Carlin MD PCP - General Family Medicine 07/07/18 [place] [employer] Relationship Specialty Start Date End Date Ernesto Carlin MD PCP - General Family Medicine 07/07/18 [place] [employer] Relationship Specialty Start Date End Date Ernesto Carlin MD PCP - General Family Medicine 07/07/18 [place] [employer] Relationship Specialty Start Date End Date Ernesto Carlin MD PCP - General Family Medicine 07/07/18 [place] [employer] Relationship Specialty Start Date End Date Ernesto Carlin MD PCP - General Family Medicine 07/07/18 [place] [employer] Relationship Specialty Start Date End Date Ernesto Carlin MD PCP - General Family Medicine 07/07/18 [place] [employer] Relationship Specialty Start Date End Date Ernesto Carlin MD PCP - General Family Medicine 07/07/18 [place] [employer] Relationship Specialty Start Date End Date Ernesto Carlin MD PCP - General Family Medicine 07/07/18 [place] [employer] Relationship Specialty Start Date End Date Ernesto Carlin MD PCP - General Family Medicine 07/07/18 [place] [employer] Relationship Specialty Start Date End Date Ernesto Carlin MD PCP - General Family Medicine 07/07/18 [place] [employer] Relationship Specialty Start Date End Date Ernesto Carlin MD PCP - General Family Medicine 07/07/18 [place] [employer] Relationship Specialty Start Date End Date Ernesto Carlin MD PCP - General Family Medicine 07/07/18 [place] [employer] Relationship Specialty Start Date End Date Ernesto Carlin MD PCP - General Family Medicine 07/07/18 [place] [employer] Relationship Specialty Start Date End Date Ernesto Carlin MD PCP - General Family Medicine 07/07/18 [place] [employer] Relationship Specialty Start Date End Date Ernesto Carlin MD PCP - General Family Medicine 07/07/18 [place] [employer] Relationship Specialty Start Date End Date Trice Lieberman MD [address] [facility] [place] [address] PCP - General Family Medicine 07/05/24 [employer]log[employer]Hui APRN.[employer]PER[employer]OR [address] [facility] [place] [address] Family Medicine 07/05/24 [place] [employer] Relationship Specialty Start Date End Date Trice Lieberman MD [address] [facility] [place] [place] [address] PCP - General Family Medicine 07/05/24 PodlogarHui APRN.CELL EFFICIENCY SUPERVISOR [address] [facility] [place] [place] [address] Family Medicine 07/05/24 [place] [employer] Relationship Specialty Start Date End Date Trice Lieberman MD [address] [facility] [place] [place] [address] PCP - General Family Medicine 07/05/24 Podlogar, JAZ Ames.CELL EFFICIENCY SUPERVISOR [address] [facility] [place] [address] Family Medicine 07/05/24 [place] [employer] Relationship Specialty Start Date End Date Trice Lieberman MD [address] [place] [address] PCP - General Family Medicine 07/05/24 Podlogar, JAZ Ames.CELL EFFICIENCY SUPERVISOR [address] [place] [place] [address] Family Medicine 07/05/24 [place] [employer] Relationship Specialty Start Date End Date Trice Lieberman MD [address] [place] [address] PCP - General Family Medicine 07/05/24 Podlogar, JAZ Ames.CELL EFFICIENCY SUPERVISOR [address] [place] [address] Family Medicine 07/05/24 [place] Laborer Relationship Specialty Start Date End Date Trice Lieberman MD [address] [place] [address] PCP - General Family Medicine 07/05/24 Podlogar, JAZ Ames.CELL EFFICIENCY SUPERVISOR [address] [place] [address] Family Medicine 07/05/24 Podlogar, JAZ Ames.CELL EFFICIENCY SUPERVISOR [address] [facility] [place] [address] Bss Solution Architect Family Medicine 08/21/24 [place] Laborer Relationship Specialty Start Date End Date Trice Lieberman MD [address] [place] [address] PCP - General Family Medicine 07/05/24 Podlogar, JAZ Ames.CELL EFFICIENCY SUPERVISOR [address] [place] [address] Family Medicine 07/05/24 Podlogar, ARELY AmesN.CELL EFFICIENCY SUPERVISOR [address] [facility] [place] [address] Bss Solution Architect Family Medicine 08/21/24 [place] Laborer Relationship Specialty Start Date End Date Trice Lieberman MD [address] [facility] [place] [address] PCP - General Family Medicine 07/05/24 Podlogar, Hui ELECTRONIC EQUIPMENT MAINT TECH.CELL EFFICIENCY SUPERVISOR [address] [facility] [place] [address] Family Medicine 07/05/24 Podlogar, Hui, ELECTRONIC EQUIPMENT MAINT TECH.CELL EFFICIENCY SUPERVISOR [address] [facility] [place] [address] [facility] 08/21/24 [place] Laborer Relationship Specialty Start Date End Date Trice Lieberman MD [address] [facility] [place] [address] PCP - General Family Medicine 07/05/24 Podlogar, Hui, ELECTRONIC EQUIPMENT MAINT TECH.CELL EFFICIENCY SUPERVISOR [address] [facility] [place] [address] Family Medicine 07/05/24 Podlogar, Hui, ELECTRONIC EQUIPMENT MAINT TECH.CELL EFFICIENCY SUPERVISOR [address] [facility] [place] [address] Bss Solution Architect Family Medicine 08/21/24 Kinza Basilio APRN.CELL EFFICIENCY SUPERVISOR [address] [facility] [address] Bss Solution Architect Family Medicine 11/26/24 12/05/24 Kinza Basilio APRN.CELL EFFICIENCY SUPERVISOR [address] [facility] [address] [facility] 12/06/24 [place] Laborer Relationship Specialty Start Date End Date Trice Lieberman MD [address] [facility] [place] [address] PCP - General Family Medicine 07/05/24 Podlogar, Hui, ELECTRONIC EQUIPMENT MAINT TECH.CELL EFFICIENCY SUPERVISOR [address] [facility] [place] [address] Family Medicine 07/05/24 Podlogar, Hui, ELECTRONIC EQUIPMENT MAINT TECH.CELL EFFICIENCY SUPERVISOR [address] [facility] [place] [address] [facility] 08/21/24 Kinza Basilio ELECTRONIC EQUIPMENT MAINT TECH.CELL EFFICIENCY SUPERVISOR [address] [facility] [address] [facility] 12/06/24 [place] Laborer Relationship Specialty Start Date End Date Trice Lieberman MD [address] [facility] [place] [address] PCP - General Family Medicine 07/05/24 Podlogar, Hui, ELECTRONIC EQUIPMENT MAINT TECH.CELL EFFICIENCY SUPERVISOR [address] [facility] [place] [address] Family Medicine 07/05/24 Podlogar, Hui, ELECTRONIC EQUIPMENT MAINT TECH.CELL EFFICIENCY SUPERVISOR [address] [facility] [place] [address] Bss Solution Architect Family Medicine 08/21/24 Kinza Basilio ELECTRONIC EQUIPMENT MAINT TECH.CELL EFFICIENCY SUPERVISOR [address] [place] [address] Bss Solution Architect Family Medicine 12/06/24 Team Status: Active Member Role Status Dates Hui Podlogar OPENER TENDER, OPENER TENDER-C Primary Care Provider Active Team Status: Inactive Member Role Status Dates Dr. Tato Prieto DO Attending Provider Active Start: January 15, 2025 End: January 15, 2025 Dr. Tato Prieto , Emergency Provider Active Start: January 15, 2025 End: January 15, 2025 Hui Podlogar OPENER TENDER, OPENER TENDER-C Primary Care Provider Active Start: January 15, 2025 End: January 15, 2025 Team Status: Inactive Member Role Status Dates Hui Podlogar OPENER TENDER, OPENER TENDER-C Primary Care Provider Active Start: February 02, 2025 End: February 02, 2025 Hui Podlogar OPENER TENDER, OPENER TENDER-C Referring Provider Active Start: February 02, 2025 End: February 02, 2025 Dr. Desean Rodriguez MD Attending Provider Active Start: February 02, 2025 End: February 02, 2025 Team Status: Inactive Member Role Status Dates Hui Podlogar OPENER TENDER, OPENER TENDER-C Primary Care Provider Active Start: February 14, 2025 End: February 14, 2025 Dr. Desean Rodriguez MD Attending Provider Active Start: February 14, 2025 End: February 14, 2025 Dr. Desean Rodriguez MD Referring Provider Active Start: February 14, 2025 End: February 14, 2025 Team Status: Active Member Role Status Dates Hui Ortizlogar OPENER TENDER, OPENER TENDER-C Primary Care Provider Active Start: February 14, 2025 Dr. Desean Rodriguez MD Attending Provider Active Start: February 14, 2025 Dr. Desean Rodriguez MD Referring Provider Active Start: February 14, 2025 Dr. Desean Rodriguez MD Other Provider Active St art: February 14, 2025 Team Status: Inactive Member Role Status Dates Hui Podlogar OPENER TENDER, OPENER TENDER-C Primary Care Provider Active Start: February 21, 2025 End: February 21, 2025 Dr. Yvon Becker , Emergency Provider Activ e Start: February 21, 2025 End: February 21, 2025 Team Status: Active Member Role Status Dates Hui Podlogar OPENER TENDER, OPENER TENDER-C Primary Care Provider Active Start: February 22, 2025 Dr. Kayden Smith DO Emergency Provider Active Start: February 22, 2025 Dr. Jerrell Garcia MD Admit Provider Active Start: February 22, 2025 Dr. Jerrell Garcia MD Attending Provider Active Start: February 22, 2025 Team Status: Inactive Member Role Status Dates Hui Podlogar OPENER TENDER, OPENER TENDER-C Primary Care Provider Active Start: February 22, 2025 End: February 24, 2025 Dr. Kayden Smith DO Emergency Provider Active Start: February 22, 2025 End: February 24, 2025 Dr. Jerrell Garcia MD Admit Provider Active Start: February 22, 2025 End: February 24, 2025 Dr. Jerrell Garcia MD Attending Provider Active Start: February 22, 2025 End: February 24, 2025 Team Status: Active Member Role Status Dates Hui Podlogar OPENER TENDER, OPENER TENDER-C Primary Care Provider Active Start: February 22, 2025 Dr. Kayden Smith DO Emergency Provider Active Start: February 22, 2025 Dr. Jerrell Garcia MD Admit Provider Active Start: February 22, 2025 Dr. Jerrell Garcia MD Attending Provider Active Start: February 22, 2025 Dr. Jerrell Garcia MD Other Provider Active Start: February 22, 2025 Team Status: Active Member Role Status Dates Hui Podlogar OPENER TENDER, OPENER TENDER-C Primary Care Provider Active Start: February 23, 2025 Dr. Kayden Smith DO Emergency Provider Active Start: February 23, 2025 Dr. Jerrell Garcia MD Admit Provider Active Start: February 23, 2025 Dr. Jerrell Garcia MD Other Provider Active Start: February 23, 2025 Dr. Desean Rodriguez MD Attending Provider Active Start: February 23, 2025 Team Status: Active Member Role Status Dates Hui Podlogar OPENER TENDER, OPENER TENDER-C Primary Care Provider Active Start: February 24, 2025 Dr. Kayden Smith DO Emergency Provider Active Start: February 24, 2025 Dr. Jerrell Garcia MD Admit Provider Active Start: February 24, 2025 Dr. Jerrell Garcia MD Other Provider Active Start: February 24, 2025 Dr. Desean Rodrigeuz MD Attending Provider Active Start: February 24, 2025 Team Status: Inactive Member Role Status Dates Hui Podlogyashira OPENER TENDER, OPENER TENDER-C Primary Care Provider Active Start: February 21, 2025 End: February 21, 2025 Dr. Yvon Becker , DO Attending Provider Activ e Start: February 21, 2025 End: February 21, 2025 Dr. Yvon Becker , DO Emergency Provider Activ e Start: February 21, 2025 End: February 21, 2025 Team Status: Active Member Role Status Dates Hui Podlogar OPENER TENDER, OPENER TENDER-C Primary Care Provider Active Start: February 23, 2025 End: February 23, 2025 Dr. Meredith Peralta MD Attending Provider Active Start: February 23, 2025 End: February 23, 2025 Dr. Jerrell Garcia MD Referring Provider Active Start: February 23, 2025 End: February 23, 2025 Team Status: Inactive Member Role Status Dates Hui Podlogar OPENER TENDER, OPENER TENDER-C Primary Care Provider Active Start: March 09, 2025 End: March 09, 2025 Hui Podlogar OPENER TENDER, OPENER TENDER-C Referring Provider Active Start: March 09, 2025 End: March 09, 2025 Dr. Desean Rodriguez MD Attending Provider Active Start: March 09, 2025 End: March 09, 2025 [place] Laborer Relationship Specialty Start Date End Date Trice Lieberman MD [address] [place], [place] [id number] PCP - General Family Medicine 07/05/24 Podlogar, ARELY AmesN.CELL EFFICIENCY SUPERVISOR [address] [place], [place] [address] Family Medicine 07/05/24 PodlogarHui APRN.CELL EFFICIENCY SUPERVISOR [address] [facility] [place] [place], [place] [id number] Bss Solution Architect Family Medicine 08/21/24 Kinza Basilio APRN.CELL EFFICIENCY SUPERVISOR [address] [place], [place] [id number] [phone] Bss Solution Architect Family [facility] 02/24/25 [place] Laborer Relationship Specialty Start Date End Date Trice Lieberman MD [address] [facility] [place] [address] PCP - General Family Medicine 07/05/24 Podlogar, Hui ELECTRONIC EQUIPMENT MAINT TECH.CELL EFFICIENCY SUPERVISOR [address] [facility] [place] [address] Family Medicine 07/05/24 Podlogar, ARELY AmesN.CELL EFFICIENCY SUPERVISOR [address] [place] [address] Bss Solution Architect Family Medicine 08/21/24 Kinza Basilio APRN.CELL EFFICIENCY SUPERVISOR [address] [place] [address] [facility] 02/24/25 [place] Laborer Relationship Specialty Start Date End Date Trice Lieberman MD [address] [facility] [place] [address] PCP - General Family Medicine 07/05/24 Podlogar, Hui, ELECTRONIC EQUIPMENT MAINT TECH.CELL EFFICIENCY SUPERVISOR [address] [facility] [place] [address] Family Medicine 07/05/24 Podlogar, Hui, ELECTRONIC EQUIPMENT MAINT TECH.CELL EFFICIENCY SUPERVISOR [address] [facility] [place] [address] [facility] Family Medicine 08/21/24 Kinza Basilio APRN.CELL EFFICIENCY SUPERVISOR [address] [place] [address] Bss Solution Architect Family Medicine 02/24/25 [place] Laborer Relationship Specialty Start Date End Date Trice Lieberman MD [address] [facility] [place] [address] PCP - General Family Medicine 07/05/24 Podlogar, Hui, ELECTRONIC EQUIPMENT MAINT TECH.CELL EFFICIENCY SUPERVISOR [address] [facility] [place] [address] Family Medicine 07/05/24 Podlogar, Hui, ELECTRONIC EQUIPMENT MAINT TECH.CELL EFFICIENCY SUPERVISOR [address] [facility] [place] [address] Bss Solution Architect Family Medicine 08/21/24 Kinza Basilio ELECTRONIC EQUIPMENT MAINT TECH.CELL EFFICIENCY SUPERVISOR [address] [place] [address] [place] 02/24/25 [place] Laborer Relationship Specialty Start Date End Date Trice Lieberman MD [address] [facility] [place] [address] PCP - General Family Medicine 07/05/24 Podlogar, Hui, ELECTRONIC EQUIPMENT MAINT TECH.CELL EFFICIENCY SUPERVISOR [address] [facility] [place] [address] Family Medicine 07/05/24 Podlogar, Hui, ELECTRONIC EQUIPMENT MAINT TECH.CELL EFFICIENCY SUPERVISOR [address] [facility] [place] [address] Bss Solution Architect Family Medicine 08/21/24 Kinza Basilio APRN.CELL EFFICIENCY SUPERVISOR [address] [place] [address] Bss Solution Architect Family Medicine 02/24/25 [place] Laborer Relationship Specialty Start Date End Date Trice Lieberman MD [address] [place], [place] [address] PCP - General Family Medicine 07/05/24 PodlogarHui APRN.CELL EFFICIENCY SUPERVISOR [address] [place], [place] [address] Family Medicine 07/05/24 PodlogarHui APRN.CELL EFFICIENCY SUPERVISOR [address] [place], [place] [address] [facility] 08/21/24 Kinza Basilio APRN.CELL EFFICIENCY SUPERVISOR [address] [place], [place] [id number] [facility] 02/24/25 Goals (unrecognized section and content) Goals may [...] BE BASED ON THE PRIMARY CLINICAL RECORDS. [employer] provides no warranty or guarantee of the accuracy or completeness of information in this document.
[2025-08-12 10:44] LABS: Mucous, Urine 0 SEEN /hpf (<or=2+); Red Blood Cells-Urine 0 SEEN /hpf (0-5)
[2025-08-12 10:50] LABS: Color, Urine Yellow (Yellow); Glucose, Dipstick Normal (Normal); Ketone-Dipstick Negative (Negative); Leukocyte Esterase-Dipstick Negative /ul (Negative); Nitrite-Dipstick Negative (Negative); Occult Blood-Urine 10 /ul (Negative); Protein-Dipstick 15 mg/dl (Negative); Specific Gravity, Urine 1.010 (1.002-1.030); Urine Bilirubin Dipstick Negative (Negative)
[2025-08-12 10:51] LABS: Internal QC Validated? YES +Cl - CLEAR BKGD; Pregnancy, Serum, hCG Quali. NEGATIVE Negative; Record Kit Lot#, Serum Preg. 0000980607
[2025-08-12 10:56] LABS: Squamous Epithelial Cells - UA 0-5 SEEN /hpf (5-10)
[2025-08-12 11:01] LABS: AST(SGOT) 19 U/L (<=31); Alanine Aminotransfer ALT/SGPT 13 U/L (<=34); Albumin, Serum 4.3 g/dL (3.5-5.0); Alkaline Phosphatase 43 U/L (35-104); Anion Gap 15 (5-15); BUN 5 mg/dL (4-19); BUN/Creat Ratio 5.8 RATIO (10-20); Calcium,Total 9.1 mg/dL (7.6-11.0); Carbon Dioxide 19.4 mmol/L (21.0-32.0); Chloride 106 mmol/L (98-108); Estimated Creatinine Clearance 87.53 ml/min (50-250); Globulin 2.1 g/dL (2.2-4.2); Glucose 138 mg/dL (70-99); Lipase 35 U/L (13-75); Potassium 3.3 mmol/L (3.3-5.1)
[2025-08-12 11:07] LABS: Troponin T High Sensitivity < 6 ng/L (<=14)
[2025-08-12 12:12] VITALS: BP 112/78
[2025-08-12 13:10] LABS: Troponin T High Sens 2 HR < 6 ng/L (<=14)
[2025-08-12 13:33] VITALS: BP 116/74; PULSE 52; RESP 16; TEMP 36.6; O2SAT 99
== END 2025-08-12 13:35 | disposition home or self-care (01) ==
PROVIDERS: Emergency Provider Student in an Organized Health Care Education/Training Program; PCP Nurse Practitioner Primary Care; Visit Provider Student in an Organized Health Care Education/Training Program
DX: R11.0 Nausea (principal); Z90.49 Acquired absence of other specified parts of digestive tract; F17.290 Nicotine dependence, other tobacco product, uncomplicated; T50.905A Adverse effect of unspecified drugs, medicaments and biological substances, initial encounter; F90.9 Attention-deficit hyperactivity disorder, unspecified type; R07.89 Other chest pain; G43.909 Migraine, unspecified, not intractable, without status migrainosus; F41.9 Anxiety disorder, unspecified
CPT/HCPCS: 71046; 80053; 81001; 83690; 84443; 84484; 84703; 85025; 87631; 93005; 96361; 96374; 99284; A4216; J2405

== ENCOUNTER 2025-08-18 16:14 | Observation (INO) | payer MEDICAID, SELFPAY ==
[2025-08-18 16:16] VITALS: BP 140/98; PULSE 68; RESP 24; TEMP 36.2; O2SAT 100; BMI 29.0
[2025-08-18 16:32] VITALS: BP 152/79; PULSE 54; RESP 14; O2SAT 99
--- NOTE | 2025-08-18 16:34 | CT_ITS ---
PROCEDURE: CT BRAIN/HEAD WITHOUT CONTRAST 08/18/2025 REASON FOR EXAM: AMS TECHNIQUE: Procedure Code: CTBR Modality: CT Procedure: BRAIN/HEAD WITHOUT CONTRAST Coronal and Sagittal reconstruction series were provided. One or more dose reduction techniques were used (e.g., Automated exposure control, adjustment of the mA and/or kV according to patient size, use of iterative reconstruction technique. RADIATION DOSE SUMMARY: DLP: 745.49 mGycm COMPARISON: None. FINDINGS: No acute intracranial hemorrhage, extra-axial collection, mass effect or evidence of acute infarct. Ventricles and subarachnoid spaces are normal in size. Orbital contents are unremarkable. Intact skull base and calvarium. Clear paranasal sinuses and mastoid air cells. CT/Brain/Head without Contrast IMPRESSION: Unremarkable head CT. Reading Location: [id number]
--- NOTE | 2025-08-18 16:40 | EX.ED.DYSGE1 ---
HPI History of Present Illness Chief Complaint: Alt LOC Narrative Narrative: Patient is a 39-year-old female with past medical history of anxiety, depression, migraine headache who presented to the emergency department with a chief complaint of altered mental status. According to at bedside he notes that she started taking an anxiety medication and was becoming more altered and less responsive and not making any sense. States that she stopped this medication and her symptoms again have not resolved therefore that he brought her here to be further evaluated. He states that within the last 24-48 hrs. he has not been able to have a coherent conversation with her which was very concerning and therefore he brought her here to be further evaluated. He states that she does not drink alcohol, states that she smokes marijuana. [facility] Medical History Anxiety Hernia Wears glasses Wears dentures Depression Bladder disease Low iron Back pain Migraine headache History of ulceration Shortness of breath on exertion Vapes nicotine containing substance Hx of Tachycardia IUD (intrauterine device) in place Medical History unable to obtain Home Medications ?Medication ?Instructions ?Recorded ?Last Taken ?Type sumatriptan succinate 100 mg tablet 100 mg PO Q2H PRN migraine 02/21/25 Unknown History viloxazine 200 mg capsule,extended 200 mg PO QDAY #46 caps 07/26/25 Unknown Rx release 24 hr ([facility]) Allergy/AdvReac Type Severity Reaction Status Date / Time amoxicillin Allergy Unknown unknown Verified 08/18/25 16:18 Family History Son Asthma Grandmother Diabetes Breast cancer Father Hypertension Family History no significant family his Surgical History S/P cholecystectomy S/P hernia repair History of esophagogastroduodenoscopy (EGD) Previous section Surgical History unable to obtain Social History Smoking Status: Current every day smoker tobacco type: e-cigarettes quit status: not considering quitting alcohol intake: current alcohol intake frequency: holidays/special occasions only substance use type: former substance user Date of last use: 2017 ROS ROS ED ROS Narrative Constitutional: Denies any headache, lightness, disco fevers, chills Eyes: Denies double vision Cardiovascular: Denies chest pain Respiratory: Denies shortness of breath Abdomen: Denies abdominal pain nausea vomit diarrhea : Denies urinary Neurological: Complains of confusion as noted above denies any numbness, wheeze, tingling Musculoskeletal: Denies back pain Skin: Denies any rashes or lesions EXAM Physical Exam Narrative Exam Narrative: General: Patient was lying in bed rest comfortably did not appear to be acute distress Head: Atraumatic, normocephalic Eyes: PERRL bilaterally, EOMI bilaterally, no conjunctival injection noted Neck: Soft, supple, trachea midline Cardiovascular: Regular rate and rhythm no murmurs gallops rubs no Respiratory: Clear to auscultation bilaterally Abdomen: Soft, nondistended, nontender to palpation Extremities: +5/5 strength noted in the bilateral lower extremities Neurological: Patient is following commands that she was at [facility] year is 2024 and we were in winter Skin: Warm, dry, intact no rashes lesions noted Const Vital Signs: 08/18/25 16:16 08/18/25 16:32 08/18/25 18:25 Temperature 97.2 F L Temperature Source Temporal Pulse Rate 68 54 L 53 L Respiratory Rate 24 H 14 14 Blood Pressure 140/98 H 152/79 H 123/72 H Blood Pressure Mean 112 103 89 Pulse Ox 100 99 99 Oxygen Delivery Method Room Air Room Air Room Air MDM MDM MDM Narrative Medical decision making narrative: Patient is a 39-year-old female who presented to the emergency department chief complaint of altered mental status. On the differential diagnose includes but not limited to hypothyroidism, hyperthyroidism, intracranial mass, polysubstance use. Once workup is obtained and reviewed she will be reevaluated. Patient CBC reviewed and showed a white count of 7.8, hemoglobin is 12.7, plate count of 335. Sodium was then 143, potassium low at 2.8 she started dry heaving and vomiting after trying to drink this secondary to the taste therefore she will be given IV supplementation, creatinine was notably normal at 0.74. Magnesium level was 2.3. Patient's TSH noted be 1.16, free T4 and T3 1 and 3.3 respectively with a negative test. Patient drug screen pending. Patient CT head brain without contrast reviewed showed no acute findings. On reevaluation the patient per she is still not acting her normal self and he did note that she there is extreme amount of stress that they are under currently as they are trying to move and both of their children are autistic and they require a lot of attention and stress as well. Given we do not have a great explanation for her change in mental status and her being confused intermittently I do believe she may warrant evaluation by neurology this could be secondary to stress-induced versus global amnesia. Still here in the emergency department will discuss case with hospitalist for admission Discussed case with hospitalist Dr. Escobar who accept patient for admission. Lab Data Labs: Laboratory Results - last 24 hr 08/18/25 08/18/25 17:04 18:35 WBC 7.8 RBC 4.14 L Hgb 12.7 Hct 37.8 MCV 91.3 MCH 30.7 MCHC 33.6 RDW Std Deviation 41.0 RDW Coeff of Concetta 12.2 Plt Count 335 MPV 9.5 Immature Gran % (Auto) 0.300 Neut % (Auto) 60.5 Lymph % (Auto) 29.2 Dooly % (Auto) 8.6 Eos % (Auto) 0.6 Baso % (Auto) 0.8 Absolute Neuts (auto) 4.7 Absolute Lymphs (auto) 2.26 Nucleated RBC % 0 Sodium 143 Potassium 2.8 L Chloride 108 Carbon Dioxide 25.7 Anion Gap 9 BUN 6 Creatinine 0.70 Estim Creat Clear Calc 108.23 Est GFR (MDRD) Non-Af 113 BUN/Creatinine Ratio 8.3 L Glucose 126 H Calcium 9.3 Magnesium 2.3 H Total Bilirubin 0.78 AST 17 ALT 13 Alkaline Phosphatase 44 Total Protein 6.7 Albumin 4.4 Globulin 2.2 Albumin/Globulin Ratio 2.0 Lipase 35 TSH 1.160 Free T4 1.00 Free T3 pg/dL 3.3 Serum , Qual NEGATIVE Urine Opiates Screen NEGATIVE U Buprenorphine Qual NEGATIVE Ur Oxycodone Screen NEGATIVE Urine Methadone Screen NEGATIVE Urine Fentanyl Screen NEGATIVE Ur Barbiturates Screen NEGATIVE Ur Phencyclidine Scrn NEGATIVE Ur Amphetamines Screen NEGATIVE U Benzodiazepines Scrn NEGATIVE Urine Cocaine Screen NEGATIVE U Cannabinoids Screen PRESUMPTIVE POSITIVE Radiography Diagnostic Testing: Clinical Impression(s) from Imaging Studies Brain CT 08/18/25 16:34 IMPRESSION: Unremarkable head CT. Reading Location: [id number] Discharge Plan Dx/Rx/DC Orders Clinical Impression: Altered mental status, Acute confusion, History of anxiety Disposition Disposition: Acute Care Hospital [facility]
[2025-08-18] MEDS: 0.9% Normal Saline (1000mL) 1,000 ML 999 ML IV (17:03)
[2025-08-18 17:20] LABS: Hematocrit 37.8 % (37-47); Hemoglobin 12.7 g/dL (12.0-15.0); Immature Granulocytes Count 0.020 X10^3/uL (0.0-0.0); Mean Corp Hgb Conc 33.6 g/dL (32-36); Mean Corpuscular Volume 91.3 fL (81-99); Mean Platelet Vol. 9.5 fl (6.2-12.0); NRBC Flagged by Analyzer 0 % (0-5); Platelet Count 335 K/mm3 (150-450); RBC Distribution Width CV 12.2 % (11.6-14.6); RBC Distribution Width SD 41.0 fl (35.1-43.9); Red Blood Count 4.14 M/mm3 (4.2-5.4); White Blood Count 7.8 K/mm3 (4.4-11.0)
[2025-08-18 17:50] LABS: AST(SGOT) 17 U/L (<=31); Alanine Aminotransfer ALT/SGPT 13 U/L (<=34); Albumin, Serum 4.4 g/dL (3.5-5.0); Alkaline Phosphatase 44 U/L (35-104); Anion Gap 9 (5-15); BUN 6 mg/dL (4-19); BUN/Creat Ratio 8.3 RATIO (10-20); Calcium,Total 9.3 mg/dL (7.6-11.0); Carbon Dioxide 25.7 mmol/L (21.0-32.0); Chloride 108 mmol/L (98-108); Estimated Creatinine Clearance 108.23 ml/min (50-250); Free T3 3.3 pg/mL (2.18-3.98); Globulin 2.2 g/dL (2.2-4.2); Glucose 126 mg/dL (70-99); Lipase 35 U/L (13-75); Potassium 2.8 mmol/L (3.3-5.1)
[2025-08-18 17:52] LABS: Internal QC Validated? YES +Cl - CLEAR BKGD; Pregnancy, Serum, hCG Quali. NEGATIVE Negative
[2025-08-18 18:21] LABS: Magnesium 2.3 mg/dL (1.5-2.2)
[2025-08-18 18:25] VITALS: BP 123/72; PULSE 53; RESP 14; O2SAT 99
[2025-08-18 19:21] LABS: Mucous, Urine 0 SEEN /hpf (<or=2+)
[2025-08-18 19:32] LABS: Barbiturate Urine NEGATIVE (< 200 ng/mL); Benzodiazepine Urine NEGATIVE (< 200 ng/mL); PCP Urine NEGATIVE (< 25 ng/mL); THC Urine PRESUMPTIVE POSITIVE (< 50 ng/mL)
[2025-08-18 19:54] LABS: Color, Urine Yellow (Yellow); Glucose, Dipstick Normal (Normal); Ketone-Dipstick Negative (Negative); Leukocyte Esterase-Dipstick Negative /ul (Negative); Nitrite-Dipstick Negative (Negative); Occult Blood-Urine 25 /ul (Negative); Protein-Dipstick Negative (Negative); Specific Gravity, Urine 1.005 (1.002-1.030); Urine Bilirubin Dipstick Negative (Negative)
[2025-08-18 20:00] VITALS: BP 147/82; PULSE 74; RESP 16; TEMP 36.6; O2SAT 98
--- NOTE | 2025-08-18 20:00 | PCM.HP.STD ---
HPI - General General Date of Service: 08/18/25 Chief Complaint: Confusion HPI Narrative DANE CRENSHAW, is a 39 F who presents with confusion. This is a 39-year-old female with a history of anxiety who 2 weeks ago was started on a new medication for having anxiety/ADHD which may have been Qelbree ( was not sure what the medication was and the patient is too confused to provide information). Had been noted to be more confused with that medication was stopped but despite that patient continued to be confused. Patient stays at home with her kids and according to the that the house is well-kept. But today it was noted that the children are unattended, diaper is not changed and that the bathtub was starting to overflow and flooding the house. Very out of the norm for the patient. He was concerned and brought the patient to the emergency room. Patient was brought to the emergency room and underwent a workup with lab work that was significant only for potassium of 2.8 which she received a replacement. Urinalysis was unremarkable and patient underwent a drug screen with positive cannabinoids. He does state that the patient uses marijuana occasionally. He denies that she uses any other drugs. He states the patient has not had any significant psychiatric history other than the anxiety and ADHD. Though he has been to her for about 5 years there was a time where she was hospitalized for either suicidal ideation or suicide attempt where she was admitted to a psychiatric unit at that time. [ ] [facility] Medical History Anxiety Hernia Wears glasses Wears dentures Depression Bladder disease Low iron Back pain Migraine headache History of ulceration Shortness of breath on exertion Vapes nicotine containing substance Hx of Tachycardia IUD (intrauterine device) in place Medical History unable to obtain Home Medications ?Medication ?Instructions ?Recorded ?Last Taken ?Type sumatriptan succinate 100 mg tablet 100 mg PO Q2H PRN migraine 02/21/25 Unknown History viloxazine 200 mg capsule,extended 200 mg PO QDAY #46 caps 07/26/25 Unknown Rx release 24 hr (Qelbree) Allergy/AdvReac Type Severity Reaction Status Date / Time amoxicillin Allergy Unknown unknown Verified 08/18/25 16:18 Family History Son Asthma Grandmother Diabetes Breast cancer Father Hypertension Family History no significant family his Surgical History S/P cholecystectomy S/P hernia repair History of esophagogastroduodenoscopy (EGD) Previous section Surgical History unable to obtain Social History Smoking Status: Current every day smoker tobacco type: e-cigarettes quit status: not considering quitting alcohol intake: current alcohol intake frequency: holidays/special occasions only substance use type: former substance user Date of last use: 2017 Vital Signs Vital Signs Vital Signs: 08/18/25 16:16 08/18/25 16:32 08/18/25 18:25 Temperature 36.2 C L Temperature Source Temporal Pulse Rate 68 54 L 53 L Respiratory Rate 24 H 14 14 Blood Pressure 140/98 H 152/79 H 123/72 H Blood Pressure Mean 112 103 89 Pulse Ox 100 99 99 Oxygen Delivery Method Room Air Room Air Room Air Weight Weight: 76.8 kg Body Mass Index (BMI) 29.0 Physical Exam Narrative Patient is cooperative follows exam but is confused. Knows that she is in the hospital and knows that it is August 2025. Const Orientation / Consciousness: confused HEENT normocephalic, head/scalp atraumatic, hearing grossly normal bilaterally and moist oral mucous membranes Eyes PERRL Eyes Narrative: Does become cross eyed when trying to assess extraocular muscles. Neck no lymphadenopathy Neck Narrative: No thyromegaly. No meningismus. Resp normal respiratory effort, no retractions, no use of accessory muscles and clear to auscultation bilaterally Cardio regular rate, regular rhythm, S1 normal heart sound and S2 normal heart sound GI normal to inspection, nondistended, normoactive bowel sounds, soft to palpation, non-tender and non-distended Extremity normal to inspection and no clubbing, cyanosis or edema Neuro CN's II-XII intact bilaterally, moves all extremities and no focal motor deficits Sensorium / Orientation: awake, oriented to person, oriented to place and oriented to time Speech: speech normal Results Lab / Micro Data Attestation: I reviewed the patient's lab results. 08/18/25 17:04 08/18/25 17:04 Labs: Laboratory Results - last 24 hr 08/18/25 17:04: WBC 7.8, RBC 4.14 L, Hgb 12.7, Hct 37.8, MCV 91.3, MCH 30.7, MCHC 33.6, RDW Std Deviation 41.0, RDW Coeff of Concetta 12.2, Plt Count 335, MPV 9.5, Immature Gran % (Auto) 0.300, Neut % (Auto) 60.5, Lymph % (Auto) 29.2, Grundy % (Auto) 8.6, Eos % (Auto) 0.6, Baso % (Auto) 0.8, Absolute Neuts (auto) 4.7, Absolute Lymphs (auto) 2.26, Nucleated RBC % 0, Sodium 143, Potassium 2.8 L, Chloride 108, Carbon Dioxide 25.7, Anion Gap 9, BUN 6, Creatinine 0.70, Estim Creat Clear Calc 108.23, Est GFR (MDRD) Non-Af 113, BUN/Creatinine Ratio 8.3 L, Glucose 126 H, Calcium 9.3, Magnesium 2.3 H, Total Bilirubin 0.78, AST 17, ALT 13, Alkaline Phosphatase 44, Total Protein 6.7, Albumin 4.4, Globulin 2.2, Albumin/Globulin Ratio 2.0, Lipase 35, TSH 1.160, Free T4 1.00, Free T3 pg/dL 3.3, Serum , Qual NEGATIVE 08/18/25 18:35: Urine Color Yellow, Urine Clarity Clear, Urine pH 7.0, Ur Specific Albia 1.005, Urine Protein Negative, Urine Glucose (UA) Normal, Urine Ketones Negative, Urine Occult Blood 25 H, Urine Nitrite Negative, Urine Bilirubin Negative, Urine Urobilinogen Normal, Ur Leukocyte Esterase Negative, Urine Opiates Screen NEGATIVE, U Buprenorphine Qual NEGATIVE, Ur Oxycodone Screen NEGATIVE, Urine Methadone Screen NEGATIVE, Urine Fentanyl Screen NEGATIVE, Ur Barbiturates Screen NEGATIVE, Ur Phencyclidine Scrn NEGATIVE, Ur Amphetamines Screen NEGATIVE, U Benzodiazepines Scrn NEGATIVE, Urine Cocaine Screen NEGATIVE, U Cannabinoids Screen PRESUMPTIVE POSITIVE Imaging Radiology Impression Brain CT 08/18/25 16:34 IMPRESSION: Unremarkable head CT. Reading Location: [id number] Assessment & Plan Assessment/Plan (1) Acute confusion: PLAN: Etiology could be organic causes such as cervical vasculitis versus encephalitis/meningitis versus versus seizure versus drug versus stroke. Though the patient does have a history of psychiatric issues which she has been hospitalized previously. Patient unable to provide details in that manner and the was not part of her life at that time so he does not know all the specifics. So plan is to rule out organic causes with an MRI of the brain with and without contrast, and EEG and an LP. Consult neurology I did inform the of these testing. I did tell him that I am concerned that this possibly could be a psychiatric break that she may be experiencing. If her neurologic workup is negative then she may need to have crisis evaluate her to see if she may require placement in psychiatric facility. Drug screen only positive for cannabinoids. The patient's , who seems very doting at bedside, denies that there is any kind of recent traumatic event such as a in the family recently. PLAN: Plan ADHD: Patient restarted on Qelbree. Looking at the side effect profile for that does not seem to be the ultimate cause and patient had stopped it a week ago as well. So do not feel that that is ultimately the culprit. Will hold off any medications and follow-up with her psychiatrist as outpatient. VTE prophylaxis: Low risk in observation status. Charges/Coding Visit Charges Inpatient E&M: 31908 Init Hosp L3
[2025-08-18] MEDS: Potassium Chloride 10mEq/100mL 10 MEQ/100 ML IV.SOLN. 100 MEQ IV BOLUS ×2 (20:05→21:32)
[2025-08-18 20:13] VITALS: BP 147/82; PULSE 82; RESP 18; TEMP 36.6; O2SAT 98
[2025-08-18 20:13] LABS: Squamous Epithelial Cells - UA 0-5 SEEN /hpf (5-10)
[2025-08-18 20:15] LABS: Red Blood Cells-Urine 5-10 SEEN /hpf (0-5)
--- OUTSIDE RECORDS SUMMARY | 2025-08-18 20:58 | XMS RPT_ITS | CCD ---
Author Organization [facility] Care Team Providers Care Production Corrugator Name Role Phone [facility] Unavailable Unavai lable [facility] Unavailable Unavai lable LOURDES CADE Unavailable Unavailable [place] Unavailable Unavai lable UNKNOWN, PROVIDER Unavailable Unavailable Christina Rangel Primary Care Provider [phone] AA UNKNOWN PCP, UNKNOWN Primary Care Unavaila [...] e Ernesto Carlin MD Primary Care Provider [phone] Ernesto Carlin Unavailable Unavailable Unavailable Ernesto Carlin MD Primary Care Provider [phone] Ernesto Carlin MD Primary Care Provider [phone] Ernesto Carlin MD Primary Care Provider Dr. Ernesto Carlin Primary Care Unavailable JULY Joseph, TIMBO [...] Trice Lieberman MD Primary Care Provider Podlogar 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, Hui Unavailable Podlogar 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, Hui Unavailable Knoble 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Kinza Unavailable Knoble 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, Kinza Unavailable Conner TOWNSEND, Dr. Godwin Attending Provider Conner TOWNSEND, Dr. Godwin Emergency Provider Podlogar RF TECHNICIAN-C, Hui Primary Care Provider Podlogar RF TECHNICIAN-C, Hui Referring Provider Jennifer MARADIAGA, Dr. Desean Cavazos Attending Provider Jennifer MARADIAGA, Dr. Desean Cavazos Referring Provider Jennifer MARADIAGA, Dr. Desean Cavazos Other Provider Rosita TOWNSEND, Dr. Sanz Emergency Provider Dr. Kayden mSith DO Emergency Provider Jose MARADIAGA, Dr. Allan Admit Provider Jose MARADIAGA, Dr. Allan Attending Provider [phone] Jose MARADIAGA, Dr. Allan Other Provider Rosita TOWNSEND, Dr. Sanz Attending Provider Fabian MARADIAGA, Dr. Huggins Attending Provider Jose MARADIAGA, Dr. Allan Referring Provider Praful ARTIFICIAL SNOW MAKING MACHINE OPERATOR.Saman IZQUIERDOelle Unavailable PODLOGAR, HUI Attending Unavailable TRICE [...] TRICE Jack Primary Care Unavailab le Podlogar RF TECHNICIAN, Hui Primary Care Unavailable Zoila Muse Attending Unavailable Desean Rodriguez Attending Unavailable Podlogar RF TECHNICIAN, Hui Primary Care Unavailable Podlogar RF TECHNICIAN, Hui Referring Unavailable Desean Rodriguez Attending Unavailable Desean Rodriguez Referring Unavailable WanekDesean Consulting Unavailable Podlogar RF TECHNICIAN, Hui Primary Care Unavailable Podlogar RF TECHNICIAN, Hui Primary Care Unavailable Caljannie, Jerrell Referring Unavailable Meredith Peralta Attending Unavailable Jennifer, Desean Cavazos Attending Unavailable Wanek, Desean Cavazos Referring Unavailable Podlogar RF TECHNICIAN, Hui Primary Care Unavailable Yvon Becker Attending Unavailabl e Podlogar RF TECHNICIAN, Hui Primary Care Unavailable Tato Prieto Attending Unavailable Podlogar RF TECHNICIAN, Hui Primary Care Unavailable Podlogar RF TECHNICIAN, Hui Primary Care Unavailable Jerrell Garcia Admitting Unavailable Calabrblessing, Jerrell Attending Unavailable Calabrblessing, Jerrell Admitting Unavailable Podlogar RF TECHNICIAN, Hui Primary Care Unavailable Jerrell Garcia Consulting Unavailable Desean Rodriguez Attending Unavailable Jose, Jerrell Attending Unavailable Podlogar RF TECHNICIAN, Hui Primary Care Unavailable Desean Rodriguez Attending Unavailable Podlogar RF TECHNICIAN, Hui Referring Unavailable Allergies Allergy Classification Reported Allergen(s) Allergy Type Date of Onset Reaction(s) Facility (20 sources) Amoxicillin; Translations: [amoxicillin] Drug Allergy 04-30-2016 Unknown [place], [place] (1 source) Amoxicillin Drug Allergy [facility] Repository (1 source) Amoxicillin Drug Allergy 07-26-2025 [facility] Repository Medications Current Medications Medication Drug Class(es) [...] on above: Take 2 tablets by mo [facility] every 6 hours as needed for pain. [id number] 200 actuat albuterol 0.09 mg/actuat metered dose [...] Comment on above: Take 2 capsules by [facility] three times daily as needed for [...] / neomycin 3.5 mg/ml / polymyxin b 60933 unt/ml otic solution (2 sources) Aminoglycoside Antibacterial, Polymyxin-class Antibacterial, Corticosteroid Start: 06-19-2021 End: 06-19-2021 xykoiirt-vqjbhdouj-qievzffni isone (CORTISPORIN) 3.5-46764-[address] 4 drops into the left ear 3 times daily for 10 days Instill into left Ear 10 mL 0 06/19/2021 06/19/2021 Discontinued (Availability) Start: 06-19-2021 End: 06-29-2021 bgfjakqa-sqpyxjzhg-tcxxgimfz isone 1 % SOLN otic solution Place [...] on above: Take 1 capsule by mo [facility] twice daily for 10 days. nystatin 434908 unt/ml topical cream (4 sources) Polyene Antifungal [...] Start: 06-05-2019 take 1 capsule by mo [facility] once daily venlafaxine (EFFEXOR XR) 150 MG extended release capsule Take 1 capsule by mouth daily 30 capsule 0 06/05/2019 Active Start: 06-05-2019 take 1 capsule by mo [facility] once daily venlafaxine (EFFEXOR [...] on above: Take 1 capsule by mo [facility] twice daily. famotidine 20 mg oral [...] Comment on above: Take 1 tablet by [facility] twice daily. Take 20 mg by [...] application to affected area twice daily. levonorgestrel 0.089995 mg/hr intrauterine system (1 source) Progestin, Progestin-containing [...] on above: Take 1 capsule by mo [facility] once daily. ondansetron 8 mg oral [...] above: Take by mouth. polyethylene glycol 3350 35265 mg powder for oral solution (20 sources) Osmotic Laxative Start: 05-21-20 End: 07-05-20 polyethylene glycol 3350 (MIRALAX, GLYCOLAX) 17 gram/dose powder Indications: Constipation, unspecified constipation type Take 17 g by mouth once daily. Dissolve dose in 4 - 8 ounces of liquid and take as directed. 119 g 1 07/05/2022 Active Start: 04-24-2022 End: 05-19-2022 polyethylene glycol 3350 (DE RALAX, GLYCOLAX) 17 gram/dose powder Indications: Constipation, unspecified constipation type TAKE 17 G BY MOUTH ONCE DAILY. DISSOLVE DOSE IN 4 - 8 OUNCES OF LIQUID AND TAKE DIRECTED. 119 g 1 04/24/2022 05/19/2022 Discontinued Start: 04-05-2022 End: 04-24-2022 polyethylene glycol 3350 (DE RALAX) 17 gram/dose powder Indications: Constipation, unspecified [...] 1 TABLET BY JAVON TH EVERY DAY Ppgwsedt-Ff-Dki-Fe-F A tab (20 sources) Start: 2 take 1 tablet by mouth once daily Jwsgjemm-Ab-Dym-Fe-FA tab Indications: Amenorrhea, secondary Take 1 tablet [...] 10-18-2024 Episodic Other aftercare (1 source) Other manager long term care (current) drug therapy; Translations: [OTH FOOD QUALITY TESTER CURRENT DRUG THERAPY] Onset: 08-10-2019 Episodic Other [...] Interpretation Reference Range Facility MR/BMS.on 07-26-2025 MR/BMS.BP [address], [address] [place] [address] OFFICE VISIT Date of Service: 07/26/25 MR#: [id number] Acct: [id number] Name: DANE OLIVERA Rep #: [id number] : 1985 Provider: KOSTA aceves Age/Sex: 39/F Location: [facility] Status: Signed Intake Vital Signs 02/23/25 [...] SI/HI. Memory:Admits to concerns with short and longterm memory. Admits to being forgetful often. Struggle [...] 2 brothers, patient is oldest Born Raised: [place], [place] Education: [employer] Employment: Unemployed Living Status (more content not included)... [facility] DANE [facility]IVER[facility] ([id number]) 1985 F Date Time Provider Department 03/28/25 HUI VALDES During your visit today, we recorded the following information about you: Hui Valdes APRN.CNP 03/28/2025 1:47 PM Signed Prescription for Wellbutrin sent. Take one tablet daily. Hui Valdes APRN.ASSISTANT HEAD CASHIER Allergies As of Date: 03/28/2025 Noted Allergy [...] Encounter Status:Closed by GAURAV AYON on 03/28/25 [facility] CNOVon 03-22-2025 CNOV Office Visit (FAMPWS ) -- DANE OLIVERA ([id number]) 1985 F Date Time Provider Department 03/22/25 1:20 PM HUI VALDES During your visit today, we recorded the following information about you: Pulse Respiration Blood pressure Weight 89/minute 16/minute 142/82 73.6 kg PodlogHui ac APRN.ASSISTANT HEAD CASHIER 03/22/2025 2:14 PM Signed 03/22/2025 Patient presents with: Medication Follow-up Recording using ambient [employer] software for draft documentation of the visit was discussed with the patient/authorized career services representative; all questions welcomed and answered. Patient/authorized career services representative agreed to proceed SUBJECTIVE: This is [...] in partial remission, most recent episode mixed ([facility]) 10/04/2019 Depression, major, recurrent, moderate ([facility]) 07/07/2018 Diet controlled gestational diabetes mellitus (GDM) in second trimester ([facility]) 07/05/2022 Drug use disorder remission since [...] anorexia, xer (more content not included)... Normal [facility] QUANT TOX PANELon 03-22-2025 6-Lkpwuomtne-4,5-Dime thyl-3,3-Diphenylpyrr olidine (EDDP) Confirm (U) [Mass/Vol] <25 Normal <25 [facility] Comment on above: Order Comment: Speci men Type: URINE SPECIMENOrdering Facility: [facility] Address: [address] [place] [address] Result Comment: 5-Qomhesbvap-7,8-gxktweyt-3,3-diphenylpyrrolidine (EDDP) is a metabolite of methadone. Performed By: #### U QNTX ####[facility] [id number] [place] [address] [place] 6-Monoacetylmorphine (6-CHARIS) (U) [Mass/Vol] <5 Normal <5 [facility] Comment on above: Order Comment: Speci men Type: URINE SPECIMENOrdering Facility: [facility] Address: [address] [place] [address] Result Comment: 6-Mo noacetylmorphine is a metabolite of heroin. Performed By: #### U QNTX ####[facility] [id number] [place] [address] [place] Amphetamine Confirm (U) [Mass/Vol] <25 Normal <25 [facility] Comment on above: Order Comment: Speci men Type: URINE SPECIMENOrdering Facility: [facility] Address: [address] [place], [place] [id number] Result Comment: Meth ylphenidate does not contain or metabolize to amphetamine. Performed By: #### U QNTX ####[facility] [id number] [place] [address] [place] Benzoylecgonine Confirm (U) [Mass/Vol] <25 Normal <25 [facility] Comment on above: Order Comment: Speci men Type: URINE SPECIMENOrdering Facility: [facility] Address: [address] [place] [address] Result Comment: Monty oylecgonine is a metabolite of cocaine. Performed By: #### U QNTX ####[facility] [id number] [place] [address] [place] Buprenorphine (U) [Mass/Vol] <5 Normal <5 [facility] Comment on above: Order Comment: Speci men Type: URINE SPECIMENOrdering Facility: [facility] Address: [address] [place] [address] Result Comment: Magalie ents using transdermal formulations of buprenorphine may yield undetectable buprenorphine and norbuprenorphine urine concentrations. Performed By: #### U QNTX ####[facility] [id number] [place] [address] [place] Carboxy tetrahydrocannabinol (U) [Mass/Vol] <10 Normal <10 [facility] Comment on above: Order Comment: Speci men Type: URINE SPECIMENOrdering Facility: [facility] Address: [address] [place] [address] Result Comment: 11-N ii-1-xoyiigk-tetrahydrocannabinol (wroch-6-xbyxqbl-THC) is a metabolite of pixfj-0-lffbjdwvctnbtxepwyis (THC). This test does not differentiate between delta-8 or delta-9 carboxy-THC. Performed By: #### U QNTX ####[facility] [id number] [place] [address] [place] Codeine Confirm (U) [Mass/Vol] <25 Normal <25 [facility] Comment on above: Order Comment: Speci men Type: URINE SPECIMENOrdering Facility: [facility] Address: [address] [place] [address] Performed By: #### U QNTX ####[facility] [id number] [place] [address] [place] fentaNYL Confirm (U) [Mass/Vol] <1 Normal <1 [facility] Comment on above: Order Comment: Speci men Type: URINE SPECIMENOrdering Facility: [facility] Address: [address] [place] [address] Performed By: #### U QNTX ####[facility] [id number] [place] [address] [place] HYDROcodone Confirm (U) [Mass/Vol] <25 Normal <25 [facility] Comment on above: Order Comment: Speci men Type: URINE SPECIMENOrdering Facility: [facility] Address: [address] [place] [address] Performed By: #### U QNTX ####[facility] [id number] [address] [place] HYDROmorphone Confirm (U) [Mass/Vol] <25 Normal <25 [facility] Comment on above: Order Comment: Speci men Type: URINE SPECIMENOrdering Facility: [facility] Address: [address] [place] [address] Performed By: #### U QNTX ####[facility] [id number] [place] [address] [place] MDA, UR <25 Normal <25 [facility] Comment on above: Order Comment: Speci men Type: URINE SPECIMENOrdering Facility: [facility] Address: [address] [place] [address] Result Comment: 3,4 Methylenedioxyamphetamine is also known as MDA. Performed By: #### U QNTX ####[facility] [id number] [place] [address] [place] MDEA, UR <25 Normal <25 [facility] Comment on above: Order Comment: Speci men Type: URINE SPECIMENOrdering Facility: [facility] Address: [address] [place] [address] Result Comment: 3,4 Mpbqcnnfavgbmp-Z-dgzxrkggolxxjbyl is also known as MDEA. Performed By: #### U QNTX ####[facility] [id number] [place] [address] [place] MDMA, UR <25 Normal <25 [facility] Comment on above: Order Comment: Speci men Type: URINE SPECIMENOrdering Facility: [facility] Address: [address] [place] [address] Result Comment: 3,4- Methylenedioxymethamphetamine is also known as MDMA. Performed By: #### U QNTX ####[facility] [id number] [place] [address] [place] Methadone Confirm (U) [Mass/Vol] <25 Normal <25 [facility] Comment on above: Order Comment: Speci men Type: URINE SPECIMENOrdering Facility: [facility] Address: [address] [place] [address] Performed By: #### U QNTX ####[facility] [id number] [place] [address] [place] Methamphetamine Confirm (U) [Mass/Vol] <25 Normal <25 [facility] Comment on above: Order Comment: Speci men Type: URINE SPECIMENOrdering Facility: [facility] Address: [address] [place] [address] Performed By: #### U QNTX ####[facility] [id number] [place] [address] [place] Morphine Confirm (U) [Mass/Vol] <25 Normal <25 [facility] Comment on above: Order Comment: Speci men Type: URINE SPECIMENOrdering Facility: [facility] Address: [address] [place] [address] Performed By: #### U QNTX ####[facility] [id number] [address] [address] [place] Norbuprenorphine (U) [Mass/Vol] <10 Normal <10 [facility] Comment on above: Order Comment: Speci men Type: URINE SPECIMENOrdering Facility: [facility] Address: [address] [place], [place] [id number] Result Comment: Norb uprenorphine is a metabolite of buprenorphine. Patients using transdermal formulations of buprenorphine may yield undetectable buprenorphine and norbuprenorphine urine concentrations. Performed By: #### U QNTX ####[facility] [id number] [place] [address] [place] Norfentanyl Confirm (U) [Mass/Vol] <1 Normal <1 [facility] Comment on above: Order Comment: Speci men Type: URINE SPECIMENOrdering Facility: [facility] Address: [address] [place] [address] Result Comment: Norf entanyl is a metabolite of fentanyl. Performed By: #### U QNTX ####[facility] [id number] [place] [address] [place] NORHYDROCODONE, UR <25 Normal <25 [facility] Comment on above: Order Comment: Speci men Type: URINE SPECIMENOrdering Facility: [facility] Address: [address] [place], [place] [id number] Result Comment: Norh ydrocodone is a metabolite of hydrocodone. Performed By: #### U QNTX ####[facility] [id number] [address] [address] [place] NOROXYCODONE, UR <25 Normal <25 [facility] Comment on above: Order Comment: Speci men Type: URINE SPECIMENOrdering Facility: [facility] Address: [address] [place] [address] Result Comment: Noro xycodone is a metabolite of oxycodone. Performed By: #### U QNTX ####[facility] [id number] [address] [address] [place] NOROXYMORPHONE, UR <25 Normal <25 [facility] Comment on above: Order Comment: Speci men Type: URINE SPECIMENOrdering Facility: [facility] Address: [address] [place] [address] Result Comment: Noro xymorphone is a metabolite of oxymorphone and oxycodone and a minor metabolite of naltrexone and naloxone. Performed By: #### U QNTX ####[facility] [id number] [place] [id number] [place] Nortramadol (U) [Mass/Vol] <25 Normal <25 [facility] Comment on above: Order Comment: Speci men Type: URINE SPECIMENOrdering Facility: [facility] Address: [address] [place] [address] Result Comment: O-de smethyltramadol is a metabolite of tramadol. Performed By: #### U QNTX ####[facility] [id number] [place] [address] [place] NOTE, UR TOXICOLOGY PANEL Normal [facility] Comment on above: Order Comment: Speci men Type: URINE SPECIMENOrdering Facility: [facility] Address: [address] [place] [address] Result Comment: For medical purposes only. Not valid for legal or forensic purposes. This test was developed, and its performance characteristics determined by the [facility] Department of Pathology and Laboratory Medicine. It has not been cleared or approved by the FDA. The [facility] Department of Pathology and Laboratory Medicine is regulated under CLIA as qualified to perform high-complexity testing. This test is used for clinical purposes. It should not be regarded as investigational or for research. Performed By: #### U QNTX ####[facility] [id number] [place] [address] [place] oxyCODONE Confirm (U) [Mass/Vol] <25 Normal <25 [facility] Comment on above: Order Comment: Speci men Type: URINE SPECIMENOrdering Facility: [facility] Address: [address] [place] [address] Performed By: #### U QNTX ####[facility] [id number] [place] [address] [place] oxyMORphone Confirm (U) [Mass/Vol] <25 Normal <25 [facility] Comment on above: Order Comment: Speci men Type: URINE SPECIMENOrdering Facility: [facility] Address: [address] [place] [address] Performed By: #### U QNTX ####[facility] [id number] [place] [address] [place] Phencyclidine Confirm (U) [Mass/Vol] <10 Normal <10 [facility] Comment on above: Order Comment: Speci men Type: URINE SPECIMENOrdering Facility: [facility] Address: [address] [place] [address] Result Comment: Phen cyclidine is also known as PCP. Performed By: #### U QNTX ####[facility] [id number] [place] [address] [place] PHENTERMINE, UR <25 Normal <25 [facility] Comment on above: Order Comment: Speci men Type: URINE SPECIMENOrdering Facility: [facility] Address: [address] [place] [address] Performed By: #### U QNTX ####[facility] [id number] [place] [address] [place] traMADol Confirm (U) [Mass/Vol] <25 Normal <25 [facility] Comment on above: Order Comment: Speci men Type: URINE SPECIMENOrdering Facility: [facility] Address: [address] [place] [address] Performed By: #### U QNTX ####[facility] [id number] [place] [address] [place] SPECIMEN VALIDITY, URINEon 0 03-22-2025 CREATININE,URINE 162.6 mg/dL Normal 20.0-300.0 [facility] Comment on above: Order Comment: Speci men Type: URINE SPECIMENOrdering Facility: [facility] Address: [address] [place] [address] Performed By: #### L [id number] ####[facility] [id number] [place] [address] [place] NITRITES,URINE <50 Normal <500 [facility] Comment on above: Order Comment: Speci men Type: URINE SPECIMENOrdering Facility: [facility] Address: [address] [place] [address] Performed By: #### L [id number] ####[facility] [id number] [place] [address] [place] OXIDANTS,URINE <38 Normal <200 [facility] Comment on above: Order Comment: Speci men Type: URINE SPECIMENOrdering Facility: [facility] Address: [address] [place] [address] Performed By: #### L [id number] ####[facility] [id number] [place] [id number] [place] pH (U) 6.5 [pH] Normal 4.5-8.0 [facility] Comment on above: Order Comment: Speci men Type: URINE SPECIMENOrdering Facility: [facility] Address: [address] [place] [address] Performed By: #### L [id number] ####[facility] [id number] [place] [id number] [place] SPEC GRAVITY,UR 1.026 Normal 1.003-1.035 [facility] Comment on above: Order Comment: Speci men Type: URINE SPECIMENOrdering Facility: [facility] Address: [address] [place] [address] Performed By: #### L [id number] ####[facility] [id number] [place] [address] [place] SPECIMEN VALIDITY QUALITY Specimen quality results within acceptable limits Normal [facility] Comment on above: Order Comment: Speci men Type: URINE SPECIMENOrdering Facility: [facility] Address: [address] [place] [address] Performed By: #### L [id number] ####[facility] [id number] [place] [address] [place] TOXICOLOGY SCREEN, ROUTINE U RINEon 03-22-2025 Amphetamines Confirm (U) [Mass/Vol] Negative Normal Negative [facility] Comment on above: Order Comment: Speci men Type: URINE SPECIMENOrdering Facility: [facility] Address: [address] [place] [address] Result Comment: Cuto ff threshold at 1000 ng/mL. Performed By: #### U TOX2 ####[facility] [id number] [place] [address] [place] BARBITURATES, URINE Negative Normal Negative [facility] Comment on above: Order Comment: Speci men Type: URINE SPECIMENOrdering Facility: [facility] Address: [address] [place] [address] Result Comment: Cuto ff threshold at 200 ng/mL. Performed By: #### U TOX2 ####[facility] [id number] [place] [address] [place] BENZODIAZEPINES, URINE Negative Normal Negative [facility] Comment on above: Order Comment: Speci men Type: URINE SPECIMENOrdering Facility: [facility] Address: [address] [place] [address] Result Comment: Cuto ff threshold at 200 ng/mL. Performed By: #### U TOX2 ####[facility] [id number] [place] [address] [place] Cannabinoids Screen Ql (U) Negative Normal Negative [facility] Comment on above: Order Comment: Speci men Type: URINE SPECIMENOrdering Facility: [facility] Address: [address] [place] [address] Result Comment: Cuto ff threshold at 50 ng/mL. Performed By: #### U TOX2 ####[facility] [id number] [address] [place] Cocaine Ql (U) Negative Normal Negative [facility] Comment on above: Order Comment: Speci men Type: URINE SPECIMENOrdering Facility: [facility] Address: [address] [place] [address] Result Comment: Cuto ff threshold at 300 ng/mL. Performed By: #### U TOX2 ####[facility] [id number] [place] [address] [place] Ethanol (U) [Mass/Vol] <11 Normal <11 [facility] Comment on above: Order Comment: Speci men Type: URINE SPECIMENOrdering Facility: [facility] Address: [address] [place] [address] Performed By: #### U TOX2 ####[facility] [id number] [place] [address] [place] fentaNYL Screen Ql (U) Negative Normal Negative [facility] Comment on above: Order Comment: Speci men Type: URINE SPECIMENOrdering Facility: [facility] Address: [address] [place] [address] Result Comment: Cuto ff threshold at 5 ng/mL. Performed By: #### U TOX2 ####[facility] [id number] [place] [address] [place] Opiates Screen Ql (U) Negative Normal Negative [facility] Comment on above: Order Comment: Speci men Type: URINE SPECIMENOrdering Facility: [facility] Address: [address] [place] [address] Result Comment: Cuto ff threshold at 300 ng/mL. Performed By: #### U TOX2 ####[facility] [id number] [place] oxyCODONE cutoff Screen (U) [Mass/Vol] Negative Normal Negative [facility] Comment on above: Order Comment: Speci men Type: URINE SPECIMENOrdering Facility: [facility] Address: [address] [place] [address] Result Comment: Cuto ff threshold at 100 ng/mL. Performed By: #### U TOX2 ####[facility] [id number] [address] Phencyclidine Ql (U) Negative Normal Negative [facility] Comment on above: Order Comment: Speci men Type: URINE SPECIMENOrdering Facility: [facility] Address: [address] [place] [address] Result Comment: Cuto ff threshold at 25 ng/mL. Performed By: #### U TOX2 ####[facility] [id number] [place] [address] [place] Surgery Visit Reporton 03-09 Surgery Visit Report [facility] [address] [place] [address]. [address] [place], [place] [id number] OFFICE VISIT Date of Service: 03/09/25 MR#: [id number] Acct: [id number] Name: DANE OLIVERA Rep #: [id number] : 1985 Provider: Dr. Desean ritter MD Age/Sex: 39/F Location: [facility] Status: Signed Intake Vital Signs [...] S/P hernia repair Z98.890; Z87.19 [facility] Medical History (Updated 03/09/25 @ 14:04 by Cait Htach) Hernia Wears glasses Wears dentures Depression Bladder [...] Acute 03/09/25 1409 Date [facility]: Date (if applicable) CC: Normal [facility] 12 Lead EKGon 02-23-2025 12 Lead EKG [facility] Cardiovascular Services [address] [place] [address] 12 Lead EKG 02/23/25 0650 MR#: [id number] Acct: [id number] Name: DANE OLIVERA Rep #: [id number] : 1985 39 From: Meredith Peralta MD [...] previous ECGs available Confirmed by Meredith Peralta ([id number]), film or videotape editor LAURA MACHUCA ([id number]) on 02/23/2025 10:41:32 AM Referred By: JOSE Confirmed By: Meredith Peralta 02/23/25 1041 Date Meredith Peralta MD CC: RF TECHNICIAN-C Hui Valdes; Dr. Jerrell Garcia MD Signed Normal [facility] Cholangiogram/ O R,Initialon 02-23-2025 Cholangiogram/ O R,Initial [facility] Imaging Services [address] [place] [address] Cholangiogram/ O R,Initial MR#: [id number] Acct: [id number] Name: DANE OLIVERA Rep #: [id number] : 1985 F 39 From: Jordan cleaning MD PCP: KOSTA Gomez Status: ADM IN Study: Cholangiogram/ O R,Initial Date of Exam: 02/23 Exam# [id number] Ordering Dr: Jerrell Garcia PROCEDURE: CHOLANGIOGRAM/ O [...] R,Initial IMPRESSION: Unremarkable intraoperative cholangiogram. Reading Location: [place] [address] CC: KOSTA Valdes; Dr. Jerrell Garcia MD Aircraft Engine Dismantler: Signed Normal [facility] Electrocardiogram reportOrde red By: Meredith Peralta on 02-23-2025 EKG study [facility] Cardi[facility] Services [address] [place] [address] 12 Lead EKG 02/23/25 0650 MR#: [id number] Acct: [id number] Name: DANE OLIVERA N Rep #:[id number] [...] previous ECGs available Confirmed by Meredith Peralta ([id number]), film or videotape editor LAURA MACHUCA ([id number]) on 02/23/2025 10:41:32 AM Referred By: JOSE Confirmed By: Meredith Peralta 02/23/25 1041 Date _ Meredith Peralta MD CC: RF TECHNICIAN-C Hui Valdes; Dr. Jerrell Garcia MD ~ Signed [facility] Other Phone: MR/POSTOP.ANEgil 02-23-2025 MR/POSTOP.[facility] Medical Records Department [address] [place] [address] Anesthesia Postop Eval I 02/23/25 1454 MR#: [id number] Acct: [id number] Name: DANE OLIVERA N Rep #: [id number] : 1985 39 From: Twin [place] CRNA PCP: Hui Valdes RF TECHNICIAN-C Status:ADM IN Y Race: C Location: AR3 [id number] Anesthesia: Postop Eval I Current Vital Signs Temperature: 97.2 F Pulse Rate: 103 Blood Pressure: 147/93 Respiratory Rate: 18 Pulse Ox: 94 Assessment Airway patent: Yes Spontaneous unlabored respirations: Yes nausea: No Vomiting: No Anesthesia Complication: No Fluid Hydration Crystalloid volume administer (ml): 1,000 Total IV fluid infused: 1,000 Progress Note Anesthesia document: Postop Eval 1 completed: Yes 02/23/25 1454 Date Twin [place] BORE MILL OPERATOR Cosigner Signature: Date CC: Signed Normal [facility] MR/[id number] 02-23-2025 MR/POSTOPAN2 [facility] Medical Records Department [address] [place] [address] Anesthesia Postop Eval II 02/23/25 1530 MR#: [id number] Acct: [id number] Name: DANE OLIVERA Rep #: [id number] : 1985 39 From: Paul Cox MD PCP: KOSTA Gomez Status:ADM IN Y Race: C Location: [place] [address] Anesthesia Postop Eval I Sum Postop Eval Completion status Anesthesia document: Postop Eval 1 completed: Yes Anesthesia Postop Eval I Summary Anesthesia Postop Eval I Summary: Anesthesia Postop Eval I: Assessment Summary Airway patent Yes 02/23/25 14:54 BORE MILL OPERATOR.TNES Spontaneous unlabored Yes 02/23/25 14:54 BORE MILL OPERATOR.TNES respirations Mental status nausea No 02/23/25 14:54 BORE MILL OPERATOR.TNES Vomiting No 02/23/25 14:54 BORE MILL OPERATOR.TNES Anesthesia Postop Eval I: Fluid Summary Crystalloid volume administer 1,000 02/23/25 14:54 BORE MILL OPERATOR.TNES (ml) Colloids volume administered ( ml) Blood Product volume administered (ml) Total IV fluid infused 1,000 02/23/25 14:54 BORE MILL OPERATOR.TNES Anesthesia Postop Eval I: Summary Notes Anesthesia Complication No 02/23/25 14:54 BORE MILL OPERATOR.ANDREA Anesthesia Complication Comment: Post-operative progress note Anesthesia: Postop Eval II Evaluation Mental status: Awake Pain Level: 0 nausea: No Vomiting: No 02/23/25 1530 Date Paul Cardoza Signature: Date CC: Signed Normal [facility] Operative Reporton 5 Operative Report [facility] Medical Records Department [address] [place] [address] Operative Report 02/23/25 1454 MR#: [id number] Acct: [id number] Name: DANE OLIVERA Rep #: [id number] : 1985 39 From: Desena Rodriguez MD PCP: KOSTA Gomez Status:ADM IN Location: [place] [address] Problems Associated Problem List Diagnoses (1) Acute cholecystitis: Procedures Digestive 40xxx-49xxx: 47454 CHOLECYSTECTOMY; WITH CHOLANGIOGRAPHY Operative Report (Standard) Operative Information Date of Procedure: 02/23/25 Pre-Operative Diagnosis: Acute cholecystitis Post-Operative Diagnosis: Acute cholecystitis Surgery/Procedure Performed: Laparoscopic cholecystectomy with intraoperative cholangiograms geophysical laboratory chief: Yes Environmental Engineer: Estrella Cooper Tasks completed by executive assistant: Closing, Retracting and Other Additional multimedia production assistant?: No Type of Anesthesia: General and [...] clipped proximally with a 10 mm clip compensation intern. A small ductotomy was made using curved [...] aid of (more content not included)... Normal [facility] Surgery Specimen Level IIIon 02-23-2025 Surgery Specimen Level III Patient Age/Sex Location Account Attending Physician DANE OLIVERA 39/F MS3 [id number] Dr. Jerrell Garcia MD Specimen: [id number] Received: 02/23/25 Status: OLINDA Dorado Num: [id number] Spec Type: QI Terence Dr: Dr. Jerrell [...] 0.3 cm. No cholesterolosis is grossly appreciated. Curling Machine Operator sections are submitted in 2 cassettes follows: A1: Margin, lymph node, serosal adhesion A2: Cross-sections [facility] 02/23/2025 CPT:89201 Patient Age/Sex Location Account Attending Physician DENBENYDANE N 39/F MS3 [id number] Dr. Jerrell Garcia MD Signed (signature on file) Dr. Chan Patterson MD 02/24/25 1601 Normal [facility] Comment on above: Performed By: #### P SUIII ####[facility] [id number] [place], [address] Absolute lymphocyte countOrd ered By: Jerrell Garcia on 02-22-2025 Lymphocytes Auto (Unsp spec) [#/Vol] 3.36 10*3/uL 0.83-4.51 [facility] Absolute lymphocyte countOrd ered By: Kayden Smith on 02-22-2025 Lymphocytes Auto (Unsp spec) [#/Vol] 2.99 10*3/uL 0.83-4.51 [facility] Absolute neutrophil countOrd ered By: Jerrell Garcia on 02-22-2025 Neutrophils (Bld) [#/Vol] 6.8 10*3/uL 2.0-7.7 [facility] Absolute neutrophil countOrd ered By: Kayden Smith on 02-22-2025 Neutrophils (Bld) [#/Vol] 8.4 10*3/uL High 2.0-7.7 [facility] Anion gap in Serum or Plasma Ordered By: Jerrell Garcia on 02-22-2025 Anion gap [Moles/Vol] 11 mmol/L 01-27 [facility] Anion gap in Serum or Plasma Ordered By: Kayden Smith on 02-22-2025 Anion gap [Moles/Vol] 12 mmol/L 01-27 [facility] Automated lymphocyte count a s percentage of total leukocytesOrdered By: Jerrell Garcia on 02-22-2025 Lymphocytes/100 WBC Auto (Unsp spec) 29.6 % [facility] Automated lymphocyte count a s percentage of total leukocytesOrdered By: Kayden Smith on 02-22-2025 Lymphocytes/100 WBC Auto (Unsp spec) 23.7 % [facility] BUN/creatinine ratioOrdered By: Jerrell Garcia on 02-22-2025 Urea nitrogen/Creatinine [Mass ratio] 12.3 mg/mg 07-04 [facility] BUN/creatinine ratioOrdered By: Kayden Smith on 02-22-2025 Urea nitrogen/Creatinine [Mass ratio] 13.0 mg/mg 07-04 [facility] Basophil percentageOrdered B y: Jerrell Garcia on 02-22-2025 Basophils/100 WBC (Bld) 0.7 % 0-1 [facility] Basophil percentageOrdered B y: Kayden Smith on 02-22-2025 Basophils/100 WBC (Bld) 0.8 % 0-1 [facility] Bilirubin, totalOrdered By: Jerrell Garcia on 02-22-2025 Bilirubin [Mass/Vol] 0.30 mg/dL 0.00-1.30 [facility] Bilirubin, totalOrdered By: Kayden Smith on 02-22-2025 Bilirubin [Mass/Vol] mg/dL 0.00-1.30 [facility] Blood manual differential co mment interpretation (narrative result)Ordered By: Kayden Smith on 02-22-2025 Manual differential comment Shiva (Bld) [Interp] SCANNED [facility] CBC W/Diff, Automatedon 02-13 PLT EST ADEQUATE Normal ADEQ [facility] Comment on above: Performed By: #### L 501.2450, L500.4050, L100.0100 #### [facility] [address] [place], [address] SMEAR COMMENT SCANNED Normal [facility] Comment on above: Performed By: #### L 501.2450, L500.4050, L100.0100 #### [facility] [address] [place], [address] Absolute Lymph 3.36 X10 3/uL Normal 0.83-4.51 [facility] Comment on above: Performed By: #### L 100.0100, L500.4050 #### [facility] [address] [place], [address] Absolute Neut 6.8 X10 3/uL Normal 2.0-7.7 [facility] Comment on above: Performed By: #### L 100.0100, L500.4050 #### [facility] [address] [place], [address] Basophils/100 WBC (Bld) 0.7 % Normal 0-1 [facility] Comment on above: Performed By: #### L 100.0100, L500.4050 #### [facility] [address] [place], [address] Eosinophils/100 WBC (Bld) 1.9 % Normal 0-5 [facility] Comment on above: Performed By: #### L 100.0100, L500.4050 #### [facility] [address] [place], [address] Erythrocyte distribution width (RBC) [Ratio] 12.1 % Normal 11.6-14.6 [facility] Comment on above: Performed By: #### L 100.0100, L500.4050 #### [facility] [address] [place], [address] Hematocrit (Bld) [Volume fraction] 32.8 % Low 37-47 [facility] Comment on above: Performed By: #### L 100.0100, L500.4050 #### [facility] [address] [place], [address] Hemoglobin (Bld) [Mass/Vol] 11.1 g/dL Low 12.0-15.0 [facility] Comment on above: Performed By: #### L 100.0100, L500.4050 #### [facility] [address] [place], [address] IG% 0.400 Normal 0.0-0.9 [facility] Comment on above: Result Comment: IG% - Immature Granulocytes (promyelocytes, myelocytes and metamyelocytes) > 1% indicates that a LEFT SHIFT is Present. Performed By: #### L 100.0100, L500.4050 #### [facility] [address] [place], [address] Lymphocytes/100 WBC (Bld) 29.6 % Normal 19-41 [facility] Comment on above: Performed By: #### L 100.0100, L500.4050 #### [facility] [address] [place], [address] MCH (RBC) [Entitic mass] 31.0 pg Normal 27.0-32.0 [facility] Comment on above: Performed By: #### L 100.0100, L500.4050 #### [facility] [address] [place], [address] MCHC (RBC) [Mass/Vol] 33.8 g/dL Normal 32-36 [facility] Comment on above: Performed By: #### L 100.0100, L500.4050 #### [facility] [address] [place], [address] MCV (RBC) [Entitic vol] 91.6 fL Normal 81-99 [facility] Comment on above: Performed By: #### L 100.0100, L500.4050 #### [facility] [address] [place], [address] Monocytes/100 WBC (Bld) 7.5 % Normal 0-10 [facility] Comment on above: Performed By: #### L 100.0100, L500.4050 #### [facility] [address] [place], [address] Neutrophils/100 WBC (Bld) 59.9 % Normal 47-70 [facility] Comment on above: Performed By: #### L 100.0100, L500.4050 #### [facility] [address] [place], [address] Nucleated RBC (Bld) [#/Vol] 0 10*3/uL Normal 0-5 [facility] Comment on above: Performed By: #### L 100.0100, L500.4050 #### [facility] [address] [place], [address] Platelet mean volume (Bld) [Entitic vol] 9.3 fL Normal 6.2-12.0 [facility] Comment on above: Performed By: #### L 100.0100, L500.4050 #### [facility] [address] [place], [address] Platelets (Bld) [#/Vol] 362 10*3/uL Normal 150-450 [facility] Comment on above: Performed By: #### L 100.0100, L500.4050 #### [facility] [address] [place], [address] RBC (Bld) [#/Vol] 3.58 10*6/uL Low 4.2-5.4 [facility] Comment on above: Performed By: #### L 100.0100, L500.4050 #### [facility] [address] [place], [address] RDW SD 40.5 fl Normal 35.1-43.9 [facility] Comment on above: Performed By: #### L 100.0100, L500.4050 #### [facility] [address] [place], [address] WBC (Bld) [#/Vol] 11.3 10*3/uL High 4.4-11.0 [facility] Comment on above: Performed By: #### L 100.0100, L500.4050 #### [facility] [address] [place], [address] Carbon dioxide, total [Moles /volume] in Central venous bloodOrdered By: Jerrell Garcia on 02-22-2025 CO2 [Moles/Vol] 21.0 mmol/L 21.0-32.0 [facility] Carbon dioxide, total [Moles /volume] in Central venous bloodOrdered By: Kayden Smith on 02-22-2025 CO2 [Moles/Vol] 21.6 mmol/L 21.0-32.0 [facility] Chloride assayOrdered By: Ashley Garcia on 02-22-2025 Chloride [Moles/Vol] 109 mmol/L High 98-108 [facility] Chloride assayOrdered By: Werner Smith on 02-22-2025 Chloride [Moles/Vol] 105 mmol/L 98-108 [facility] Comprehensive Metabolic Prof ilon 02-22-2025 Albumin [Mass/Vol] 3.8 g/dL Normal 3.5-5.0 [facility] Comment on above: Performed By: #### L 100.0100, L500.4050 #### [facility] [address] [place], [address] Albumin/Globulin [Mass ratio] 1.8 {ratio} Normal 0.9-2.4 [facility] Comment on above: Performed By: #### L 100.0100, L500.4050 #### [facility] [address] [place], [address] ALK PHOS 46 U/L Normal 35-104 [facility] Comment on above: Performed By: #### L 100.0100, L500.4050 #### [facility] [address] [place], [address] ALT [Catalytic activity/Vol] 15 U/L Normal <=34 [facility] Comment on above: Performed By: #### L 100.0100, L500.4050 #### [facility] [address] [place], [address] AST [Catalytic activity/Vol] 17 U/L Normal <=31 [facility] Comment on above: Performed By: #### L 100.0100, L500.4050 #### [facility] [address] [place], [address] Bilirubin [Mass/Vol] 0.30 mg/dL Normal 0.00-1.30 [facility] Comment on above: Performed By: #### L 100.0100, L500.4050 #### [facility] [address] [place], [address] BUN/CRE 12.3 RATIO Normal 10-20 [facility] Comment on above: Performed By: #### L 100.0100, L500.4050 #### [facility] [address] [place], [address] Calcium [Mass/Vol] 8.5 mg/dL Normal 7.6-11.0 [facility] Comment on above: Performed By: #### L 100.0100, L500.4050 #### [facility] [address] [place], [address] Chloride [Moles/Vol] 109 mmol/L High 98-108 [facility] Comment on above: Performed By: #### L 100.0100, L500.4050 #### [facility] [address] [place], [address] CO2 [Moles/Vol] 21.0 mmol/L Normal 21.0-32.0 [facility] Comment on above: Performed By: #### L 100.0100, L500.4050 #### [facility] [address] [place], [address] Creatinine [Mass/Vol] 0.67 mg/dL Low 0.70-1.20 [facility] Comment on above: Performed By: #### L 100.0100, L500.4050 #### [facility] [address] [place], [address] ECRCL 111.94 ml/min Normal 50-250 [facility] Comment on above: Performed By: #### L 100.0100, L500.4050 #### [facility] [address] [place], [address] GAP 11 Normal 5-15 [facility] Comment on above: Performed By: #### L 100.0100, L500.4050 #### [facility] [address] [place], [address] GFR/1.73 sq M.predicted among non-blacks MDRD (S/P/Bld) [Vol rate/Area] 114 mL/min/{1.73_m2} Normal >60 [facility] Comment on above: Result Comment: mL/m in/1.73m2 CKD-EPI Creatinine Equation (2020) Performed By: #### L 100.0100, L500.4050 #### [facility] [address] [place], [address] Globulin (S) [Mass/Vol] 2.1 g/dL Low 2.2-4.2 [facility] Comment on above: Performed By: #### L 100.0100, L500.4050 #### [facility] [address] [place], [address] Glucose [Mass/Vol] 85 mg/dL Normal 70-99 [facility] Comment on above: Performed By: #### L 100.0100, L500.4050 #### [facility] [address] [place], [address] Potassium [Moles/Vol] 3.3 mmol/L Normal 3.3-5.1 [facility] Comment on above: Performed By: #### L 100.0100, L500.4050 #### [facility] [address] [place], [address] Sodium [Moles/Vol] 141 mmol/L Normal 133-145 [facility] Comment on above: Performed By: #### L 100.0100, L500.4050 #### [facility] [address] [place], [address] T PROT 5.9 g/dL Normal 5.9-8.4 [facility] Comment on above: Performed By: #### L 100.0100, L500.4050 #### [facility] [address] [place], [address] Urea nitrogen [Mass/Vol] 8 mg/dL Normal 4-19 [facility] Comment on above: Performed By: #### L 100.0100, L500.4050 #### [facility] [address] [place], [address] Albumin [Mass/Vol] 4.0 g/dL Normal 3.5-5.0 [facility] Comment on above: Performed By: #### L 501.2450, L500.4050, L100.0100 #### [facility] [address] [place], [address] Albumin/Globulin [Mass ratio] 1.6 {ratio} Normal 0.9-2.4 [facility] Comment on above: Performed By: #### L 501.2450, L500.4050, L100.0100 #### [facility] [address] [place], [address] ALK PHOS 59 U/L Normal 35-104 [facility] Comment on above: Performed By: #### L 501.2450, L500.4050, L100.0100 #### [facility] [address] [place], [address] ALT [Catalytic activity/Vol] 18 U/L Normal <=34 [facility] Comment on above: Result Comment: Hemo lysis present, Results??could be affected. ?? Performed By: #### L 501.2450, L500.4050, L100.0100 #### [facility] [address] [place], [address] AST [Catalytic activity/Vol] 38 U/L High <=31 [facility] Comment on above: Result Comment: Hemo lysis present, Results??could be affected. ?? Performed By: #### L 501.2450, L500.4050, L100.0100 #### [facility] [address] [place], [address] BUN/CRE 13.0 RATIO Normal 10-20 [facility] Comment on above: Performed By: #### L 501.2450, L500.4050, L100.0100 #### [facility] [address] [place], [address] Calcium [Mass/Vol] 9.1 mg/dL Normal 7.6-11.0 [facility] Comment on above: Performed By: #### L 501.2450, L500.4050, L100.0100 #### [facility] [address] [place], [address] Chloride [Moles/Vol] 105 mmol/L Normal 98-108 [facility] Comment on above: Performed By: #### L 501.2450, L500.4050, L100.0100 #### [facility] [address] [place], [address] CO2 [Moles/Vol] 21.6 mmol/L Normal 21.0-32.0 [facility] Comment on above: Performed By: #### L 501.2450, L500.4050, L100.0100 #### [facility] [address] [place], [address] Creatinine [Mass/Vol] 0.79 mg/dL Normal 0.70-1.20 [facility] Comment on above: Performed By: #### L 501.2450, L500.4050, L100.0100 #### [facility] [address] [place], [address] ECRCL 95.38 ml/min Normal 50-250 [facility] Comment on above: Performed By: #### L 501.2450, L500.4050, L100.0100 #### [facility] [address] [place], [address] GAP 12 Normal 5-15 [facility] Comment on above: Performed By: #### L 501.2450, L500.4050, L100.0100 #### [facility] [address] [place], [address] GFR/1.73 sq M.predicted among non-blacks MDRD (S/P/Bld) [Vol rate/Area] 97 mL/min/{1.73_m2} Normal >60 [facility] Comment on above: Result Comment: mL/m in/1.73m2 CKD-EPI Creatinine Equation (2020) Performed By: #### L 501.2450, L500.4050, L100.0100 #### [facility] [address] [place], [address] Globulin (S) [Mass/Vol] 2.6 g/dL Normal 2.2-4.2 [facility] Comment on above: Performed By: #### L 501.2450, L500.4050, L100.0100 #### [facility] [address] [place], [address] Glucose [Mass/Vol] 92 mg/dL Normal 70-99 [facility] Comment on above: Performed By: #### L 501.2450, L500.4050, L100.0100 #### [facility] [address] [place], [address] Potassium [Moles/Vol] 4.0 mmol/L Normal 3.3-5.1 [facility] Comment on above: Result Comment: Hemo lysis present, Results??could be affected. ?? Performed By: #### L 501.2450, L500.4050, L100.0100 #### [facility] [address] [place], [address] Sodium [Moles/Vol] 139 mmol/L Normal 133-145 [facility] Comment on above: Performed By: #### L 501.2450, L500.4050, L100.0100 #### [facility] [address] [place], [address] T BILI < 0.15 Normal 0.00-1.30 [facility] Comment on above: Performed By: #### L 501.2450, L500.4050, L100.0100 #### [facility] [address] [place], [address] T PROT 6.6 g/dL Normal 5.9-8.4 [facility] Comment on above: Performed By: #### L 501.2450, L500.4050, L100.0100 #### [facility] [address] [place], [address] Urea nitrogen [Mass/Vol] 10 mg/dL Normal 4-19 [facility] Comment on above: Performed By: #### L 501.2450, L500.4050, L100.0100 #### [facility] [address] [place], [address] Emergency Department Summary on 02-22-2025 Emergency Department Summary [facility] Medical Records Department [address] [place] [address] Emergency Department Summary 02/22/25 MR#: [id number] Acct: [id number] Name: DANE OLIVERA Rep #: [id number] : 1985 39 From: Kayden Smith DO PCP: Hui Valdes RF TECHNICIAN-C Status:REG ER Location: ED HPI History of [...] it is in the right upper abdomen. [facility] Medical History Wears glasses Wears dentures [...] is following commands today she was at [facility] the year is 2024 Skin: Warm, dry, [...] white blo (more content not included)... Normal [facility] Eosinophil percentageOrdered By: Jerrell Garcia on 02-22-2025 Eosinophils/100 WBC (Bld) 1.9 % 0-5 [facility] Eosinophil percentageOrdered By: Kayden Smith on 02-22-2025 Eosinophils/100 WBC (Bld) 1.5 % 0-5 [facility] Erythrocyte distribution wid th ratioOrdered By: Jerrell Garcia on 02-22-2025 Erythrocyte distribution width (RBC) [Ratio] 12.1 % 11.6-14.6 [facility] Erythrocyte distribution wid th ratioOrdered By: Kayden Smith on 02-22-2025 Erythrocyte distribution width (RBC) [Ratio] 12.3 % 11.6-14.6 [facility] Erythrocyte distribution wid th standard deviationOrdered By: Jerrell Garcia on 02-22-2025 Erythrocyte distribution width (RBC) [Ratio] 40.5 fl 35.1-43.9 [facility] Erythrocyte distribution wid th standard deviationOrdered By: Kayden Smith on 02-22-2025 Erythrocyte distribution width (RBC) [Ratio] 41.1 fl 35.1-43.9 [facility] Gallbladderon 02-22-2025 Gallbladder [facility] Imaging Services [address] [place] [address] Gallbladder MR#: [id number] Acct: [id number] Name: DANE OLIVERA Rep #: [id number] : 1985 F 39 From: Jorge lorenzo MD PCP: Hui Valdes NP-C Status: REG ER Study: Gallbladder Date of Exam: 02/22/25 Exam# [id number] Ordering Dr: Kayden Smith DO PROCEDURE: GALLBLADDER [...] Dr. Smith at 3:41 am Reading Location: [place] [address] CC: RF TECHNICIAN-C Hui Valdes; Dr. Kayden Smith DO [employer] Engine Dismantler: Signed Normal [facility] Glomerular filtration rate ( GFR) estimation/1.73 sq m using serum, plasma, or whole bOrdered By: Jerrell Garcia on 02-22-2025 GFR/1.73 sq M.predicted among non-blacks MDRD (S/P/Bld) [Vol rate/Area] 114 mL/min/{1.73_m2} >60 [facility] Comment on above: mL/min/1.73m2 CKD-EP I Creatinine Equation (2020) Glomerular filtration rate ( GFR) estimation/1.73 sq m using serum, plasma, or whole bOrdered By: Kayden Smith on 02-22-2025 GFR/1.73 sq M.predicted among non-blacks MDRD (S/P/Bld) [Vol rate/Area] 97 mL/min/{1.73_m2} >60 [facility] Comment on above: mL/min/1.73m2 CKD-EP I Creatinine Equation (2020) H AND P Exam - Surgicalon H&P Exam - Surgical [facility] Medical Records Department [address] [place] [address] H P Exam - Surgical 02/22/25 0710 MR#: [id number] Acct: [id number] Name: DANE OLIVERA Rep #: [id number] : 1985 39 From: Jerrell Garcia MD PCP: KOSTA Gomez Status:ADM IN Location[place] [facility] [id number] HPI - General General Date of Admission: [...] in the right upper quadrant. [facility] Medical History (Updated 02/22/25 @ [...] % (Auto) 66.6, Lymph % (Auto) 23.7, [place] % (Auto) 7.2, Eos % (Auto) 1.5, Baso % (Auto) 0.8, Absolute Neuts (auto) 8.4 H, Absolute Lymphs (auto) 2.99, Nucleated RBC % 0, Differential Comment SCANNED, Platelet Estimate ADEQUATE, Sodium 139, Potassium 4.0, Chloride 105, Carbon Dioxide 21.6, Anion Gap 12, BUN 10, Creatinine 0.79, Estim Creat Clear Calc 95.38, Est GFR (MDRD) No (more content not included)... Normal [facility] Hematocrit Auto (Bld) [Volum e fraction]Ordered By: Jerrell Garcia on 02-22-2025 Hematocrit (Bld) [Volume fraction] 32.8 % Low 37-47 [facility] Hematocrit Auto (Bld) [Volum e fraction]Ordered By: Kayden Smith on 02-22-2025 Hematocrit (Bld) [Volume fraction] 37.5 % 37-47 [facility] Hemoglobin measurementOrdere d By: Jerrell Garcia on 02-22-2025 Hemoglobin (Bld) [Mass/Vol] 11.1 g/dL Low 12.0-15.0 [facility] Hemoglobin measurementOrdere d By: Kayden Smith on 02-22-2025 Hemoglobin (Bld) [Mass/Vol] 12.7 g/dL 12.0-15.0 [facility] Immature granulocytes/100 WB C Auto (Bld)Ordered By: Jerrell Garcia on 02-22-2025 Immature granulocytes/100 WBC (Bld) 0.400 % 0.0-0.9 [facility] Comment on above: IG% - Immature Granu locytes (promyelocytes, myelocytes and metamyelocytes) > 1% indicates that a LEFT SHIFT is Present. Immature granulocytes/100 WB C Auto (Bld)Ordered By: Kayden Smith on 02-22-2025 Immature granulocytes/100 WBC (Bld) 0.200 % 0.0-0.9 [facility] Comment on above: IG% - Immature Granu locytes (promyelocytes, myelocytes and metamyelocytes) > 1% indicates that a LEFT SHIFT is Present. Laboratory - Chemistry and C hemistry - challengeOrdered By: Jerrell Garcia on 02-22-2025 AST [Catalytic activity/Vol] 17 U/L <32 [facility] - Chemistry and C hemistry - challengeOrdered By: Kayden Smith on 02-22-2025 AST [Catalytic activity/Vol] 38 U/L High <32 [facility] Comment on above: Hemolysis present, R esults could be affected. Lipaseon 02-22-2025 Lipase [Catalytic activity/Vol] 37 U/L Normal 13-75 [facility] Comment on above: Result Comment: Jaz nance note: LIPASE revised reference range effective 22. New Lipase methodology. Expected to produce lower values than the previous assay method. NEW Reference Range: 13 - 75 U/L Performed By: #### L 501.2450, L500.4050, L100.0100 #### [facility] [address] [place] [address]. [place], [address] Lipase measurementOrdered By : Kayden Smith on 02-22-2025 Lipase [Catalytic activity/Vol] 37 U/L 13-75 [facility] Comment on above: Please note:LIPASE r evised reference range effective 22. New Lipase methodology. Expected to produce lower values than the previous assay method. NEW Reference Range: 13 - 75 U/L MCV (mean corpuscular volume ) determinationOrdered By: Jerrell Garcia on 02-22-2025 MCV (RBC) [Entitic vol] 91.6 fL 81-99 [facility] MCV (mean corpuscular volume ) determinationOrdered By: Kayden Smith on 02-22-2025 MCV (RBC) [Entitic vol] 91.7 fL 81-99 [facility] Mean corpuscular hemoglobin (MCH) determinationOrdered By: Jerrell Garcia on 02-22-2025 MCH (RBC) [Entitic mass] 31.0 pg 27.0-32.0 [facility] Mean corpuscular hemoglobin (MCH) determinationOrdered By: Kayden Smith on 02-22-2025 MCH (RBC) [Entitic mass] 31.1 pg 27.0-32.0 [facility] Mean corpuscular hemoglobin concentration (MCHC) determinationOrdered By: Jerrell Garcia on 02-22-2025 MCHC (RBC) [Mass/Vol] 33.8 g/dL 32-36 [facility] Mean corpuscular hemoglobin concentration (MCHC) determinationOrdered By: Kayden Smith on 02-22-2025 MCHC (RBC) [Mass/Vol] 33.9 g/dL 32-36 [facility] Mean platelet volume determi nationOrdered By: Jerrell Garcia on 02-22-2025 Platelet mean volume (Bld) [Entitic vol] 9.3 fL 6.2-12.0 [facility] Mean platelet volume determi nationOrdered By: Kayden Smith on 02-22-2025 Platelet mean volume (Bld) [Entitic vol] 9.5 fL 6.2-12.0 [facility] Monocyte percentageOrdered B y: Jerrell Garcia on 02-22-2025 Monocytes/100 WBC (Bld) 7.5 % 0-10 [facility] Monocyte percentageOrdered B y: Kayden Smith on 02-22-2025 Monocytes/100 WBC (Bld) 7.2 % 0-10 [facility] Neutrophil percentageOrdered By: Jerrell Garcia on 02-22-2025 Neutrophils/100 WBC (Bld) 59.9 % 47-70 [facility] Neutrophil percentageOrdered By: Kayden Smith on 02-22-2025 Neutrophils/100 WBC (Bld) 66.6 % 47-70 [facility] Nucleated red blood cell per centageOrdered By: Jerrell Garcia on 02-22-2025 Nucleated RBC/100 WBC (Bld) [Ratio] 0 % 0-5 [facility] Nucleated red blood cell per centageOrdered By: Kayden Smith on 02-22-2025 Nucleated RBC/100 WBC (Bld) [Ratio] 0 % 0-5 [facility] Platelet countOrdered By: Ashley Garcia on 02-22-2025 Platelets (Bld) [#/Vol] 362 10*3/uL 150-450 [facility] Platelet countOrdered By: Werner Smith on 02-22-2025 Platelet count TNP [facility] Comment on above: Test not performedPl ease [...] 02-22-2025 Platelets LM Ql (Bld) ADEQUATE ADEQ [facility] Potassium measurement (mass/ volume)Ordered By: Jerrell Garcia on 02-22-2025 Potassium (Unsp spec) [Mass/Vol] 3.3 mmol/L 3.3-5.1 [facility] Potassium measurement (mass/ volume)Ordered By: Kayden Smith on 02-22-2025 Potassium (Unsp spec) [Mass/Vol] 4.0 mmol/L 3.3-5.1 [facility] Comment on above: Hemolysis present, R esults could be affected. ,Urineon 02-22-2025 Beta HCG ( test) Ql (U) Negative Normal [facility] Comment on above: Result Comment: Very dilute urine specimens, as indicated by a low specific gravity, may not contain career services representative levels of hCG. If is still suspected, a first morning urine specimen should be collected 48 hours later and tested. Performed By: #### L 400.3860 ####[facility] [address] [place], [address] RBC Auto (Bld) [#/Vol]Ordere d By: Jerrell Garcia on 02-22-2025 RBC (Bld) [#/Vol] 3.58 10*6/uL Low 4.2-5.4 [facility] RBC Auto (Bld) [#/Vol]Ordere d By: Kayden Smith on 02-22-2025 RBC (Bld) [#/Vol] 4.09 10*6/uL Low 4.2-5.4 [facility] Serum creatinine measurement (mass/volume)Ordered By: Jerrell Garcia on 02-22-2025 Creatinine [Mass/Vol] 0.67 mg/dL Low 0.70-1.20 [facility] Serum creatinine measurement (mass/volume)Ordered By: Kayden Smith on 02-22-2025 Creatinine [Mass/Vol] 0.79 mg/dL 0.70-1.20 [facility] Serum globulin measurementOr dered By: Jerrell Garcia on 02-22-2025 Globulin (S) [Mass/Vol] 2.1 g/dL Low 2.2-4.2 [facility] Serum globulin measurementOr dered By: Kayden Smith on 02-22-2025 Globulin (S) [Mass/Vol] 2.6 g/dL 2.2-4.2 [facility] Serum glucose measurement (m ass/volume)Ordered By: Jerrell Garcia on 02-22-2025 Glucose [Mass/Vol] 85 mg/dL 70-99 [facility] Serum glucose measurement (m ass/volume)Ordered By: Kayden Smith on 02-22-2025 Glucose [Mass/Vol] 92 mg/dL 70-99 [facility] Serum or plasma alanine daugherty otransferase (ALT) measurementOrdered By: Jerrell Garcia on 02-22-2025 ALT [Catalytic activity/Vol] 15 U/L <35 [facility] Serum or plasma alanine daugherty otransferase (ALT) measurementOrdered By: Kayden Smith on 02-22-2025 ALT [Catalytic activity/Vol] 18 U/L <35 [facility] Comment on above: Hemolysis present, R esults could be affected. Serum or plasma albumin hong urement (mass/volume)Ordered By: Jerrell Garcia on 02-22-2025 Albumin [Mass/Vol] 3.8 g/dL 3.5-5.0 [facility] Serum or plasma albumin hong urement (mass/volume)Ordered By: Kayden Smith on 02-22-2025 Albumin [Mass/Vol] 4.0 g/dL 3.5-5.0 [facility] Serum or plasma albumin/glob ulin mass ratioOrdered By: Jerrell Garcia on 02-22-2025 Albumin/Globulin [Mass ratio] 1.8 {ratio} 0.9-2.4 [facility] Serum or plasma albumin/glob ulin mass ratioOrdered By: Kayden Smith on 02-22-2025 Albumin/Globulin [Mass ratio] 1.6 {ratio} 0.9-2.4 [facility] Serum or plasma alkaline katherine sphatase measurementOrdered By: Jerrell Garcia on 02-22-2025 ALP [Catalytic activity/Vol] 46 U/L 35-104 [facility] Serum or plasma alkaline katherine sphatase measurementOrdered By: Kayden Smith on 02-22-2025 ALP [Catalytic activity/Vol] 59 U/L 35-104 [facility] Serum or plasma calcium hong urement (mass/volume)Ordered By: Jerrell Garcia on 02-22-2025 Calcium [Mass/Vol] 8.5 mg/dL 7.6-11.0 [facility] Serum or plasma calcium hong urement (mass/volume)Ordered By: Kayden Smith on 02-22-2025 Calcium [Mass/Vol] 9.1 mg/dL 7.6-11.0 [facility] Serum or plasma urea nitroge n measurement (mass/volume)Ordered By: Jerrell Garcia on 02-22-2025 Urea nitrogen [Mass/Vol] 8 mg/dL 4- [facility] Serum or plasma urea nitroge n measurement (mass/volume)Ordered By: Kayden Smith on 02-22-2025 Urea nitrogen [Mass/Vol] 10 mg/dL 4- [facility] Sodium levelOrdered By: Loreta Garcia on 02-22-2025 Sodium [Moles/Vol] 141 mmol/L 133-145 [facility] Sodium levelOrdered By: Paulo Smith on 02-22-2025 Sodium [Moles/Vol] 139 mmol/L 133-145 [facility] Total proteinOrdered By: Sebastien Garcia on 02-22-2025 Protein [Mass/Vol] 5.9 g/dL 5.9-8.4 [facility] Total proteinOrdered By: Wenceslao Smith on 02-22-2025 Protein [Mass/Vol] 6.6 g/dL 5.9-8.4 [facility] Urine testOrdered By: Paul Cox on 02-22-2025 HCG ( test) Ql (U) Negative [facility] Comment on above: Very dilute urine sp ecimens, as indicated by a low specificgravity, may not contain career services representative levels of hCG. If is still suspected, a first morning urinespecimen should be collected 48 hours later and tested. White blood cell (WBC) count Ordered By: Jerrell Garcia on 02-22-2025 WBC (Bld) [#/Vol] 11.3 10*3/uL High 4.4-11.0 [facility] White blood cell (WBC) count Ordered By: Kayden Smith on 02-22-2025 WBC (Bld) [#/Vol] 12.6 10*3/uL High 4.4-11.0 [facility] Abdomen/Pelvis W IV Cont ONL Yon 02-21-2025 Abdomen/Pelvis W IV Cont ONLY [facility] Imaging Services [address] [place] [address] Abdomen/Pelvis W IV Cont ONLY MR#: [id number] Acct: [id number] Name: DANE OLIVERA Rep #: [id number] : 1985 F 39 From: Jordan cleaning MD PCP: Hui Valdes RF TECHNICIAN-C Status: [facility] ER Study: Abdomen/Pelvis W IV Cont ONLY Date of Exam: Exam# [id number] Ordering Dr: Yvon Becker DO PROCEDURE: ABDOMEN/PELVIS [...] examination is unchanged. Multiple gallstones. Reading Location: [place] [address] CC: KOSTA Ames Podlogar; Dr. Yvon Becker DO [employer] Engine Dismantler: Signed Normal [facility] Absolute lymphocyte countOrd ered By: Yvon Becker on 02-21-2025 Lymphocytes Auto (Unsp spec) [#/Vol] 2.68 10*3/uL 0.83-4.51 [facility] Absolute neutrophil countOrd ered By: Yvon Becker on 02-21-2025 Neutrophils (Bld) [#/Vol] 5.3 10*3/uL 2.0-7.7 [facility] Anion gap in Serum or Plasma Ordered By: Yvon Becker on 02-21-2025 Anion gap [Moles/Vol] 11 mmol/L 5- [facility] Automated lymphocyte count a s percentage of total leukocytesOrdered By: Yvonbethel Becker on 02-21-2025 Lymphocytes/100 WBC Auto (Unsp spec) 29.7 % - [facility] BUN/creatinine ratioOrdered By: [place] Rosita on 02-21-2025 Urea nitrogen/Creatinine [Mass ratio] 15.4 mg/mg 10- [facility] Basophil percentageOrdered B y: Yvon Becker on 02-21-2025 Basophils/100 WBC (Bld) 0.9 % 0-1 [facility] Bilirubin Test strip Ql (U)O rdered By: Yvon Becker on 02-21-2025 Bilirubin Ql (U) Negative Negative [facility] Bilirubin, totalOrdered By: [place] Rosita on 02-21-2025 Bilirubin [Mass/Vol] 0.20 mg/dL 0.00-1.30 [facility] CBC W/Diff, Automatedon Absolute Lymph 2.68 X10 3/uL Normal 0.83-4.51 [facility] Comment on above: Performed By: #### L 503.6005, L501.2450, L100.0100, L500.4050 ####[facility] [address] [place], [address] Absolute Neut 5.3 X10 3/uL Normal 2.0-7.7 [facility] Comment on above: Performed By: #### L 503.6005, L501.2450, L100.0100, L500.4050 ####[facility] [address] [place], [address] Basophils/100 WBC (Bld) 0.9 % Normal 0-1 [facility] Comment on above: Performed By: #### L 503.6005, L501.2450, L100.0100, L500.4050 ####[facility] [address] [place], [address] Eosinophils/100 WBC (Bld) 2.0 % Normal 0-5 [facility] Comment on above: Performed By: #### L 503.6005, L501.2450, L100.0100, L500.4050 ####[facility] [address] [place], [address] Erythrocyte distribution width (RBC) [Ratio] 12.2 % Normal 11.6-14.6 [facility] Comment on above: Performed By: #### L 503.6005, L501.2450, L100.0100, L500.4050 ####[facility] [address] [place], [address] Hematocrit (Bld) [Volume fraction] 41.0 % Normal 37-47 [facility] Comment on above: Performed By: #### L 503.6005, L501.2450, L100.0100, L500.4050 ####[facility] [address] [place], [address] Hemoglobin (Bld) [Mass/Vol] 13.5 g/dL Normal 12.0-15.0 [facility] Comment on above: Performed By: #### L 503.6005, L501.2450, L100.0100, L500.4050 ####[facility] [address] [place], [address] IG% 0.200 Normal 0.0-0.9 [facility] Comment on above: Result Comment: IG% - Immature Granulocytes (promyelocytes, myelocytes and metamyelocytes) > 1% indicates that a LEFT SHIFT is Present. Performed By: #### L 503.6005, L501.2450, L100.0100, L500.4050 ####[facility] [address] [place], [address] Lymphocytes/100 WBC (Bld) 29.7 % Normal 19-41 [facility] Comment on above: Performed By: #### L 503.6005, L501.2450, L100.0100, L500.4050 ####[facility] [address] [place], [address] MCH (RBC) [Entitic mass] 30.7 pg Normal 27.0-32.0 [facility] Comment on above: Performed By: #### L 503.6005, L501.2450, L100.0100, L500.4050 ####[facility] [address] [place], [address] MCHC (RBC) [Mass/Vol] 32.9 g/dL Normal 32-36 [facility] Comment on above: Performed By: #### L 503.6005, L501.2450, L100.0100, L500.4050 ####[facility] [address] [place], [address] MCV (RBC) [Entitic vol] 93.2 fL Normal 81-99 [facility] Comment on above: Performed By: #### L 503.6005, L501.2450, L100.0100, L500.4050 ####[facility] [address] [place], [address] Monocytes/100 WBC (Bld) 8.0 % Normal 0-10 [facility] Comment on above: Performed By: #### L 503.6005, L501.2450, L100.0100, L500.4050 ####[facility] [address] [place], [address] Neutrophils/100 WBC (Bld) 59.2 % Normal 47-70 [facility] Comment on above: Performed By: #### L 503.6005, L501.2450, L100.0100, L500.4050 ####[facility] [address] [place], [address] Nucleated RBC (Bld) [#/Vol] 0 10*3/uL Normal 0-5 [facility] Comment on above: Performed By: #### L 503.6005, L501.2450, L100.0100, L500.4050 ####[facility] [address] [place], [address] Platelet mean volume (Bld) [Entitic vol] 9.3 fL Normal 6.2-12.0 [facility] Comment on above: Performed By: #### L 503.6005, L501.2450, L100.0100, L500.4050 ####[facility] [address] [place], [address] Platelets (Bld) [#/Vol] 390 10*3/uL Normal 150-450 [facility] Comment on above: Performed By: #### L 503.6005, L501.2450, L100.0100, L500.4050 ####[facility] [address] [place], [address] RBC (Bld) [#/Vol] 4.40 10*6/uL Normal 4.2-5.4 [facility] Comment on above: Performed By: #### L 503.6005, L501.2450, L100.0100, L500.4050 ####[facility] [address] [place], [address] RDW SD 42.2 fl Normal 35.1-43.9 [facility] Comment on above: Performed By: #### L 503.6005, L501.2450, L100.0100, L500.4050 ####[facility] [address] [place], [address] WBC (Bld) [#/Vol] 9.0 10*3/uL Normal 4.4-11.0 [facility] Comment on above: Performed By: #### L 503.6005, L501.2450, L100.0100, L500.4050 ####[facility] [address] [place], [address] Carbon dioxide, total [Moles /volume] in Central venous bloodOrdered By: Yvon Becker on 02-21-2025 CO2 [Moles/Vol] 22.8 mmol/L 21.0-32.0 [facility] Chloride assayOrdered By: Yashira Becker on 02-21-2025 Chloride [Moles/Vol] 106 mmol/L 98-108 [facility] Comprehensive Metabolic Prof ilon 02-21-2025 Albumin [Mass/Vol] 4.0 g/dL Normal 3.5-5.0 [facility] Comment on above: Performed By: #### L 503.6005, L501.2450, L100.0100, L500.4050 ####[facility] [address] [place], [address] Albumin/Globulin [Mass ratio] 1.4 {ratio} Normal 0.9-2.4 [facility] Comment on above: Performed By: #### L 503.6005, L501.2450, L100.0100, L500.4050 ####[facility] [address] [place], [address] ALK PHOS 66 U/L Normal 35-104 [facility] Comment on above: Result Comment: Hemo lysis Present, Results may be affected. Performed By: #### L 503.6005, L501.2450, L100.0100, L500.4050 ####[facility] [address] [place], [address] ALT [Catalytic activity/Vol] 16 U/L Normal <=34 [facility] Comment on above: Result Comment: Hemo lysis present, Results??could be affected. ?? Performed By: #### L 503.6005, L501.2450, L100.0100, L500.4050 ####[facility] [address] [place], [address] AST [Catalytic activity/Vol] 34 U/L High <=31 [facility] Comment on above: Result Comment: Hemo lysis present, Results??could be affected. ?? Performed By: #### L 503.6005, L501.2450, L100.0100, L500.4050 ####[facility] [address] [place], [address] Bilirubin [Mass/Vol] 0.20 mg/dL Normal 0.00-1.30 [facility] Comment on above: Performed By: #### L 503.6005, L501.2450, L100.0100, L500.4050 ####[facility] [address] [place], [address] BUN/CRE 15.4 RATIO Normal 10-20 [facility] Comment on above: Performed By: #### L 503.6005, L501.2450, L100.0100, L500.4050 ####[facility] [address] [place], [address] Calcium [Mass/Vol] 9.2 mg/dL Normal 7.6-11.0 [facility] Comment on above: Performed By: #### L 503.6005, L501.2450, L100.0100, L500.4050 ####[facility] [address] [place], [address] Chloride [Moles/Vol] 106 mmol/L Normal 98-108 [facility] Comment on above: Performed By: #### L 503.6005, L501.2450, L100.0100, L500.4050 ####[facility] [address] [place], [address] CO2 [Moles/Vol] 22.8 mmol/L Normal 21.0-32.0 [facility] Comment on above: Performed By: #### L 503.6005, L501.2450, L100.0100, L500.4050 ####[facility] [address] [place], [address] Creatinine [Mass/Vol] 0.73 mg/dL Normal 0.70-1.20 [facility] Comment on above: Performed By: #### L 503.6005, L501.2450, L100.0100, L500.4050 ####[facility] [address] [place], [address] ECRCL 102.27 ml/min Normal 50-250 [facility] Comment on above: Performed By: #### L 503.6005, L501.2450, L100.0100, L500.4050 ####[facility] [address] [place], [address] GAP 11 Normal 5-15 [facility] Comment on above: Performed By: #### L 503.6005, L501.2450, L100.0100, L500.4050 ####[facility] [address] [place], [address] GFR/1.73 sq M.predicted among non-blacks MDRD (S/P/Bld) [Vol rate/Area] 108 mL/min/{1.73_m2} Normal >60 [facility] Comment on above: Result Comment: mL/m in/1.73m2 CKD-EPI Creatinine Equation (2020) Performed By: #### L 503.6005, L501.2450, L100.0100, L500.4050 ####[facility] [address] [place], [address] Globulin (S) [Mass/Vol] 2.9 g/dL Normal 2.2-4.2 [facility] Comment on above: Performed By: #### L 503.6005, L501.2450, L100.0100, L500.4050 ####[facility] [address] [place], [address] Glucose [Mass/Vol] 94 mg/dL Normal 70-99 [facility] Comment on above: Performed By: #### L 503.6005, L501.2450, L100.0100, L500.4050 ####[facility] [address] [place], [address] Potassium [Moles/Vol] 5.0 mmol/L Normal 3.3-5.1 [facility] Comment on above: Result Comment: Hemo lysis present, Results??could be affected. ?? Performed By: #### L 503.6005, L501.2450, L100.0100, L500.4050 ####[facility] [address] [place], [address] Sodium [Moles/Vol] 140 mmol/L Normal 133-145 [facility] Comment on above: Performed By: #### L 503.6005, L501.2450, L100.0100, L500.4050 ####[facility] [address] [place], [address] T PROT 6.9 g/dL Normal 5.9-8.4 [facility] Comment on above: Performed By: #### L 503.6005, L501.2450, L100.0100, L500.4050 ####[facility] [address] [place], [address] Urea nitrogen [Mass/Vol] 11 mg/dL Normal 4-19 [facility] Comment on above: Performed By: #### L 503.6005, L501.2450, L100.0100, L500.4050 ####[facility] [address] [place], [address] Emergency Department Summary on 02-21-2025 Emergency Department Summary [facility] Medical Records Department [address] [place] [address] Emergency Department Summary 02/21/25 MR#: [id number] Acct: [id number] Name: DANE OLIVERA Rep #: [id number] : 1985 39 From: Yvon Becker DO PCP: Hui Valdes RF TECHNICIAN-C Status:REG ER Location: ED HPI History of [...] unremarkable. Lipas (more content not included)... Normal [facility] Eosinophil percentageOrdered By: Yvon Becker on 02-21-2025 Eosinophils/100 WBC (Bld) 2.0 % 0-5 [facility] Erythrocyte distribution wid th ratioOrdered By: Yvonbethel Becker on 02-21-2025 Erythrocyte distribution width (RBC) [Ratio] 12.2 % 11.6-14.6 [facility] Erythrocyte distribution wid th standard deviationOrdered By: [facility] Vizcarra on 02-21-2025 Erythrocyte distribution width (RBC) [Ratio] 42.2 fl 35.1-43.9 [facility] Glomerular filtration rate ( GFR) estimation/1.73 sq m using serum, plasma, or whole bOrdered By: Yvonbethel Becker on 02-21-2025 GFR/1.73 sq M.predicted among non-blacks MDRD (S/P/Bld) [Vol rate/Area] 108 mL/min/{1.73_m2} >60 [facility] Comment on above: mL/min/1.73m2 CKD-EP I Creatinine Equation (2020) Hematocrit Auto (Bld) [Volum e fraction]Ordered By: Yvon Becker on 02-21-2025 Hematocrit (Bld) [Volume fraction] 41.0 % 37-47 [facility] Hemoglobin measurementOrdere d By: Yvon Becker on 02-21-2025 Hemoglobin (Bld) [Mass/Vol] 13.5 g/dL 12.0-15.0 [facility] Immature granulocytes/100 WB C Auto (Bld)Ordered By: Yvon Becker on 02-21-2025 Immature granulocytes/100 WBC (Bld) 0.200 % 0.0-0.9 [facility] Comment on above: IG% - Immature Granu locytes (promyelocytes, myelocytes and metamyelocytes) > 1% indicates that a LEFT SHIFT is Present. Ketones Test strip Ql (U)Ord ered By: Yvon Becker on 02-21-2025 Ketones Ql (U) Negative Negative [facility] Laboratory - Chemistry and C hemistry - challengeOrdered By: Yvon Becker on 02-21-2025 AST [Catalytic activity/Vol] 34 U/L High <32 [facility] Comment on above: Hemolysis present, R esults could be affected. Lactic Acidon 02-21-2025 Lactate [Moles/Vol] 1.8 mmol/L Normal 0.0-2.0 [facility] Comment on above: Order Comment: Y Performed By: #### L 503.6005, L501.2450, L100.0100, L500.4050 ####[facility] [address] [place], [place], [address] Lactic acid measurementOrder ed By: Yvon Becker on 02-21-2025 Lactate [Moles/Vol] 1.8 mmol/L 0.0-2.0 [facility] Lipaseon 02-21-2025 Lipase [Catalytic activity/Vol] 46 U/L Normal 13-75 [facility] Comment on above: Result Comment: Jaz nance note: LIPASE revised reference range effective 22. New Lipase methodology. Expected to produce lower values than the previous assay method. NEW Reference Range: 13 - 75 U/L Performed By: #### L 503.6005, L501.2450, L100.0100, L500.4050 ####[facility] [address] [place], [place], [address] Lipase measurementOrdered By : Yvon Becker on 02-21-2025 Lipase [Catalytic activity/Vol] 46 U/L 13-75 [facility] Comment on above: Please note:LIPASE r evised reference range effective 22. New Lipase methodology. Expected to produce lower values than the previous assay method. NEW Reference Range: 13 - 75 U/L MCV (mean corpuscular volume ) determinationOrdered By: Yvon Becker on 02-21-2025 MCV (RBC) [Entitic vol] 93.2 fL 81-99 [facility] Mean corpuscular hemoglobin (MCH) determinationOrdered By: Yvon Becker on 02-21-2025 MCH (RBC) [Entitic mass] 30.7 pg 27.0-32.0 [facility] Mean corpuscular hemoglobin concentration (MCHC) determinationOrdered By: Yvon Becker on 02-21-2025 MCHC (RBC) [Mass/Vol] 32.9 g/dL 32-36 [facility] Mean platelet volume determi nationOrdered By: Yvon Becker on 02-21-2025 Platelet mean volume (Bld) [Entitic vol] 9.3 fL 6.2-12.0 [facility] Microscopic analysis of urin e for red blood cells (RBC)Ordered By: Yvon Becker on 02-21-2025 Microscopic analysis of urine for red blood cells (RBC) 0-5 SEEN /hpf 0-5 [facility] Monocyte percentageOrdered B y: Yvon Becker on 02-21-2025 Monocytes/100 WBC (Bld) 8.0 % 0-10 [facility] Mucus LM Ql (Urine sed)Order ed By: Yvon Becker on 02-21-2025 Mucus Ql (Urine sed) 0 SEEN /hpf [facility] Neutrophil percentageOrdered By: Yvon Becker on 02-21-2025 Neutrophils/100 WBC (Bld) 59.2 % 47-70 [facility] Nitrite Test strip Ql (U)Ord ered By: Yvon Becker on 02-21-2025 Nitrite Ql (U) Negative Negative [facility] Nucleated red blood cell per centageOrdered By: Yvon Becker on 02-21-2025 Nucleated RBC/100 WBC (Bld) [Ratio] 0 % 0-5 [facility] Platelet countOrdered By: Yashira Becker on 02-21-2025 Platelets (Bld) [#/Vol] 390 10*3/uL 150-450 [facility] Potassium measurement (mass/ volume)Ordered By: Yvon Becker on 02-21-2025 Potassium (Unsp spec) [Mass/Vol] 5.0 mmol/L 3.3-5.1 [facility] Comment on above: Hemolysis present, R esults could be affected. Protein Test strip Ql (U)Ord ered By: Yvon Becker on 02-21-2025 Protein Ql (U) Negative Negative [facility] RBC Auto (Bld) [#/Vol]Ordere d By: Yvon Becker on 02-21-2025 RBC (Bld) [#/Vol] 4.40 10*6/uL 4.2-5.4 [facility] Serum creatinine measurement (mass/volume)Ordered By: Yvon Becker on 02-21-2025 Creatinine [Mass/Vol] 0.73 mg/dL 0.70-1.20 [facility] Serum globulin measurementOr dered By: Yvon Becker on 02-21-2025 Globulin (S) [Mass/Vol] 2.9 g/dL 2.2-4.2 [facility] Serum glucose measurement (m ass/volume)Ordered By: Yvon Becker on 02-21-2025 Glucose [Mass/Vol] 94 mg/dL 70-99 [facility] Serum or plasma alanine daugherty otransferase (ALT) measurementOrdered By: Yvon Becker on 02-21-2025 ALT [Catalytic activity/Vol] 16 U/L <35 [facility] Comment on above: Hemolysis present, R esults could be affected. Serum or plasma albumin hong urement (mass/volume)Ordered By: Yvon Vizcarra on 02-21-2025 Albumin [Mass/Vol] 4.0 g/dL 3.5-5.0 [facility] Serum or plasma albumin/glob ulin mass ratioOrdered By: Yvon Becker on 02-21-2025 Albumin/Globulin [Mass ratio] 1.4 {ratio} 0.9-2.4 [facility] Serum or plasma alkaline katherine sphatase measurementOrdered By: Yvon Becker on 02-21-2025 ALP [Catalytic activity/Vol] 66 U/L 35-104 [facility] Comment on above: Hemolysis Present, R esults may be affected. Serum or plasma calcium hong urement (mass/volume)Ordered By: Yvon Vizcarra on 02-21-2025 Calcium [Mass/Vol] 9.2 mg/dL 7.6-11.0 [facility] Serum or plasma urea nitroge n measurement (mass/volume)Ordered By: Yvon Becker on 02-21-2025 Urea nitrogen [Mass/Vol] 11 mg/dL 4-19 [facility] Sodium levelOrdered By: Jone Becker on 02-21-2025 Sodium [Moles/Vol] 140 mmol/L 133-145 [facility] Squamous epithelial cells de tection in urine sediment by light microscopyOrdered By: Yvon Becker on 02-21-2025 Epithelial cells.squamous LM Ql (Urine sed) 0-5 SEEN /hpf 5-10 [facility] Total proteinOrdered By: Claude Becker on 02-21-2025 Protein [Mass/Vol] 6.9 g/dL 5.9-8.4 [facility] Urinalysis, Completeon 02-21 EPI,SQUAMOUS 0-5 SEEN Normal 5-10 [facility] Comment on above: Order Comment: CLEAN CATCH Performed By: #### L 400.0001 #### [facility] [place], [address] RBC 0-5 SEEN Normal 0-5 [facility] Comment on above: Order Comment: CLEAN CATCH Performed By: #### L 400.0001 #### [facility] [address] [place], [place], [address] WBC 0-5 SEEN Normal 0-5 [facility] Comment on above: Order Comment: CLEAN CATCH Performed By: #### L 400.0001 #### [facility] [address] [place], [address] BACTERIA 0 SEEN Normal None Seen [facility] Comment on above: Order Comment: CLEAN CATCH Performed By: #### L 400.0001 #### [facility] [address] [place], [place], [address] Mucus Ql (Urine sed) 0 SEEN Normal [facility] Comment on above: Order Comment: CLEAN CATCH Performed By: #### L 400.0001 #### [facility] [address] [place], [place], [address] Urine clarityOrdered By: Claude Becker on 02-21-2025 Clarity (U) Clear Clear [facility] Urine color determinationOrd ered By: Yvon Becker on 02-21-2025 Color (U) Straw Yellow [facility] Urine glucose detectionOrder ed By: Yvon Becker on 02-21-2025 Glucose Ql (U) Normal mg/dl Normal [facility] Urine leukocyte esterase det ection by dipstickOrdered By: Yvon Becker on 02-21-2025 Leukocyte esterase Test strip Ql (U) Negative Negative [facility] Urine pHOrdered By: Yvon Arita on 02-21-2025 pH (U) 7.0 [pH] 5.0 - 8.0 [facility] Urine sediment bacteria coun t by microscopy (number/high power field)Ordered By: Yvon Becker on 02-21-2025 Bacteria LM.HPF (Urine sed) [#/Area] 0 /[HPF] None Seen [facility] Urine specific gravity measu rementOrdered By: Yvon Becker on 02-21-2025 Specific gravity (U) [Rel density] 1.010 1.002-1.030 [facility] Urine urobilinogen measureme ntOrdered By: Yvon Becker on 02-21-2025 Urobilinogen Ql (U) Normal mg/dl Normal [facility] White blood cell (WBC) count Ordered By: Yvon Becker on 02-21-2025 WBC (Bld) [#/Vol] 9.0 10*3/uL 4.4-11.0 [facility] White blood cell countOrdere d By: Yvon Becker on 02-21-2025 White blood cell count 0-5 SEEN /hpf 0-5 [facility] Discharge Instructionon Discharge Instruction [facility] Medical Records Department [address] [place] [address] Instructions for Home/Discharge Instructions 02/14/25 1536 MR#: [id number] Acct: [id number] Name: DANE OLIVERA Rep #: [id number] : 1985 39 From: Desean Rodriguez MD PCP: OLY GomezC Status:REG [facility] Discharge Instructions Diet Discharge Diet: Light diet [...] Provider: Hui Valdes NP Instructions Print Language: [place] Discharge Orders/Prescriptions Prescriptions: New oxycodone-acetaminophen [Percocet] 5-325 [...] Referrals / Follow Up: Hui Valdes NP, RF TECHNICIAN-C [Primary Care Provider] - Disposition Disposition (needs filled in before D/C Order can be placed): Home, Self Care 02/14/25 1546 Desean Rodriguez MD CC: KOSTA Ortizlogyashira Signed [facility] MR/POSTOP.[facility] 02-14-2025 MR/POSTOP.[facility] Medical Records Department [address] [place] [address] Anesthesia Postop Eval I 02/14/25 1554 MR#: [id number] Acct: [id number] Name: DANE OLIVERA Rep #: [id number] : 1985 39 From: Royce Gomez CRNA PCP: KOSTA Gomez Status:REG SDC Y Race: C Location: [place] [address] Anesthesia: Postop Eval I Current Vital Signs [...] document: Postop Eval 1 completed: Yes 02/14/25 1630 Date Royce Traill BORE MILL OPERATOR Cosigner Signature: Date CC: Signed Normal [facility] MR/BHWATHGT7tz 02-14-2025 MR/POSTOPAN2 [facility] Medical Records Department [address] [address] Anesthesia Postop Eval II 02/14/25 163 MR#: [id number] Acct: [id number] Name: DANE OLIVERA Rep #: [id number] : 1985 39 From: Guille Shin MD PCP: KOSTA Gomez Status:REG [facility] Y Race: C Location: [address] Anesthesia Postop Eval I Sum Postop Eval Completion status Anesthesia document: Postop Eval 1 completed: Yes Anesthesia Postop Eval I Summary Anesthesia Postop Eval I Summary: Anesthesia Postop Eval I: Assessment Summary Airway patent Yes 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 Spontaneous unlabored Yes 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 respirations Mental status Awake,Calm 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 nausea No 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 Vomiting No 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 Anesthesia Postop Eval I: Fluid Summary Crystalloid volume administer 1,000 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 (ml) Colloids volume administered ( ml) Blood Product volume administered (ml) Total IV fluid infused 1,000 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 Anesthesia Postop Eval I: Summary Notes Anesthesia Complication No 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 Anesthesia Complication Comment: Post-operative progress note Anesthesia: Postop Eval II Evaluation Mental status: Awake Pain Level: 0 nausea: No Vomiting: No Complications Anesthesia Complication: No 02/14/251636 Date Guille Shin MD Cosigner Signature: Date CC: Signed Normal [facility] Operative Reporton 5 Operative Report [facility] Medical Records Department [address] [place] [address] Operative Report 02/14/25 1546 MR#: [id number] Acct: [id number] Name: DANE OLIVERA Rep #: [id number] : 1985 39 From: Desean Rodriguez MD PCP: KOSTA Gomez Status:[facility] Location: [place] [address] Problems Associated Problem List Diagnoses (1) Ventral hernia: Procedures Digestive 40xxx-49xxx: 40395 RPR AA HRN 3-10 NCR/STRN Operative Report (Standard) Operative Information Date of Procedure: 02/14/25 Pre-Operative Diagnosis: Ventral hernia -chronically incarcerated Post-Operative Diagnosis: Same Surgery/Procedure Performed: Open ventral hernia repair with mesh geophysical laboratory chief: Yes Environmental Engineer: Kristine Larose Tasks completed by executive assistant: Closing and Retracting Additional multimedia production assistant?: No Type of Anesthesia: General and [...] prophylaxis not ordered: Treatment Not Indicated 02/14/25 2102 Cosigner Signature (if applicable): CC: KOSTA Ames Podlogar; Dr. Desean Rodriguez MD Signed Normal [facility] ,Urineon 02-14-2025 Beta HCG ( test) Ql (U) Negative Normal [facility] Comment on above: Result Comment: Very dilute urine specimens, as indicated by a low specific gravity, may not contain career services representative levels of hCG. If is still suspected, a first morning urine specimen should be collected 48 hours later and tested. Performed By: #### L 400.7600 ####[facility] [address] [place], [address] Surgery Specimen Level IIon 02-14-2025 Surgery Specimen Level II Patient Age/Sex Location Account Attending Physician DENDANE N 39/F [facility] [id number] Dr. Desean Rodriguez MD Specimen: [id number] Received: 02/15/25 Status: OLINDA Dorado Num: [id number] Spec Type: Hernia Subm Dr: Dr. Desean [...] vasculature. No nodules or necrosis is identified. Curling Machine Operator sections:A1. Semisaccular portion with fibrous areasA2. Larger finely lobulated fragment [facility] 02-15-2025 CPT:21551 Patient Age/Sex Location Account Attending Physician DANE OLIVERA 39/F [facility] [id number] Dr. Desean Rodriguez MD Signed (signature on file) Dr. Joanna Ram MD 02/17/25 1314 Normal [facility] Comment on above: Performed By: #### P SUII #### [facility] [address] [place], [place], [address] Urine testOrdered By: Paul Cox on 02-14-2025 HCG ( test) Ql (U) Negative [facility] Comment on above: Very dilute urine sp ecimens, as indicated by a low specificgravity, may not contain career services representative levels of hCG. If is still suspected, a first morning urinespecimen should be collected 48 hours later and tested. Surgery Visit Reporton 02-02 Surgery Visit Report [facility] [address] [place] [address] OFFICE VISIT Date of Service: 02/02/25 MR#: [id number] Acct: [id number] Name: DANE OLIVERA Rep #: [id number] : 1985 Provider: Dr. Desean ritter MD Age/Sex: 39/F Location: [facility] Status: Signed Intake Vital Signs 01/15/25 17:48 [...] Const General: cooperative, healthy appearing and comfortable [facility] Head: normal to inspection, normocephalic and atraumatic [...] completely reducibl (more content not included)... Normal [facility] Abdomen/Pelvis W IV Cont ONL Yon 01-15-2025 Abdomen/Pelvis W IV Cont ONLY [facility] Imaging Services [address] [place] [address] Abdomen/Pelvis W IV Cont ONLY MR#: [id number] Acct: [id number] Name: DANE OLIVERA Rep #: [id number] : 1985 F 39 From: Seng zaman MD PCP: Hui Valdes RF TECHNICIAN-C Status: REG ER Study: Abdomen/Pelvis W IV Cont ONLY Date of Exam: Exam# [id number] Ordering Dr: Cierra Dinero PROCEDURE: ABDOMEN/PELVIS W [...] hernia with rectus sheath diastasis. [facility] CC: KOSTA Ames Podlogar; YVAN [employer] Aircraft Engine Dismantler: Signed Normal [facility] Absolute lymphocyte countOrd ered By: Cierra Dinero on 01-15-2025 Lymphocytes Auto (Unsp spec) [#/Vol] 3.13 10*3/uL 0.83-4.51 [facility] Absolute neutrophil countOrd ered By: Cierra Dinero on 01-15-2025 Neutrophils (Bld) [#/Vol] 5.2 10*3/uL 2.0-7.7 [facility] Anion gap in Serum or Plasma Ordered By: Cierra Dinero on 01-15-2025 Anion gap [Moles/Vol] 12 mmol/L 5- [facility] Automated lymphocyte count a s percentage of total leukocytesOrdered By: Cierra Dinero on 01-15-2025 Lymphocytes/100 WBC Auto (Unsp spec) 33.2 % [facility] BUN/creatinine ratioOrdered By: Cierra Dinero on 01-15-2025 Urea nitrogen/Creatinine [Mass ratio] 14.5 mg/mg - [facility] Basic Metabolic Profile (BMP )on 01-15-2025 BUN/CRE 14.5 RATIO Normal 07-04 [facility] Comment on above: Performed By: #### L 500.2500, L100.0100 ####[facility] [address] [place], [address] Calcium [Mass/Vol] 9.2 mg/dL Normal 7.6-11.0 [facility] Comment on above: Performed By: #### L 500.2500, L100.0100 ####[facility] [address] [place], [address] Chloride [Moles/Vol] 104 mmol/L Normal 98-108 [facility] Comment on above: Performed By: #### L 500.2500, L100.0100 ####[facility] [address] [place], [address] CO2 [Moles/Vol] 22.8 mmol/L Normal 21.0-32.0 [facility] Comment on above: Performed By: #### L 500.2500, L100.0100 ####[facility] [address] [place], [address] Creatinine [Mass/Vol] 0.76 mg/dL Normal 0.70-1.20 [facility] Comment on above: Performed By: #### L 500.2500, L100.0100 ####[facility] [address] [place], [address] ECRCL 99.31 ml/min Normal 50-250 [facility] Comment on above: Performed By: #### L 500.2500, L100.0100 ####[facility] [address] [place], [address] GAP 12 Normal 5-15 [facility] Comment on above: Performed By: #### L 500.2500, L100.0100 ####[facility] [address] [place], [address] GFR/1.73 sq M.predicted among non-blacks MDRD (S/P/Bld) [Vol rate/Area] 103 mL/min/{1.73_m2} Normal >60 [facility] Comment on above: Result Comment: mL/m in/1.73m2 CKD-EPI Creatinine Equation (2020) Performed By: #### L 500.2500, L100.0100 ####[facility] [address] [place], [address] Glucose [Mass/Vol] 94 mg/dL Normal 70-99 [facility] Comment on above: Performed By: #### L 500.2500, L100.0100 ####[facility] [address] [place], [address] Potassium [Moles/Vol] 4.2 mmol/L Normal 3.3-5.1 [facility] [facility] Comment on above: Performed By: #### L 500.2500, L100.0100 ####[facility] [address] [place], [address] Sodium [Moles/Vol] 139 mmol/L Normal 133-145 [facility] Comment on above: Performed By: #### L 500.2500, L100.0100 ####[facility] [address] [place], [address] Urea nitrogen [Mass/Vol] 11 mg/dL Normal 4-19 [facility] Comment on above: Performed By: #### L 500.2500, L100.0100 ####[facility] [address] [place], [address] Basophil percentageOrdered B y: Cierra Dinero on 01-15-2025 Basophils/100 WBC (Bld) 1.1 % High 0-1 [facility] CBC W/Diff, Automatedon Absolute Lymph 3.13 X10 3/uL Normal 0.83-4.51 [facility] Comment on above: Performed By: #### L 500.2500, L100.0100 ####[facility] [address] [place], [address] Absolute Neut 5.2 X10 3/uL Normal 2.0-7.7 [facility] Comment on above: Performed By: #### L 500.2500, L100.0100 ####[facility] [address] [place], [address] Basophils/100 WBC (Bld) 1.1 % High 0-1 [facility] Comment on above: Performed By: #### L 500.2500, L100.0100 ####[facility] [address] [place], [address] Eosinophils/100 WBC (Bld) 2.0 % Normal 0-5 [facility] Comment on above: Performed By: #### L 500.2500, L100.0100 ####[facility] [address] [place], [address] Erythrocyte distribution width (RBC) [Ratio] 12.1 % Normal 11.6-14.6 [facility] Comment on above: Performed By: #### L 500.2500, L100.0100 ####[facility] [address] [place], [address] Hematocrit (Bld) [Volume fraction] 40.0 % Normal 37-47 [facility] Comment on above: Performed By: #### L 500.2500, L100.0100 ####[facility] [address] [place], [address] Hemoglobin (Bld) [Mass/Vol] 13.8 g/dL Normal 12.0-15.0 [facility] Comment on above: Performed By: #### L 500.2500, L100.0100 ####[facility] [address] [place], [address] IG% 0.200 Normal 0.0-0.9 [facility] Comment on above: Result Comment: IG% - Immature Granulocytes (promyelocytes, myelocytes and metamyelocytes) > 1% indicates that a LEFT SHIFT is Present. Performed By: #### L 500.2500, L100.0100 ####[facility] [address] [place], [address] Lymphocytes/100 WBC (Bld) 33.2 % Normal 19-41 [facility] Comment on above: Performed By: #### L 500.2500, L100.0100 ####[facility] [address] [place], [address] MCH (RBC) [Entitic mass] 31.4 pg Normal 27.0-32.0 [facility] Comment on above: Performed By: #### L 500.2500, L100.0100 ####[facility] [address] [place], [address] MCHC (RBC) [Mass/Vol] 34.5 g/dL Normal 32-36 [facility] Comment on above: Performed By: #### L 500.2500, L100.0100 ####[facility] [address] [place], [address] MCV (RBC) [Entitic vol] 91.1 fL Normal 81-99 [facility] Comment on above: Performed By: #### L 500.2500, L100.0100 ####[facility] [address] [place], [address] Monocytes/100 WBC (Bld) 8.8 % Normal 0-10 [facility] Comment on above: Performed By: #### L 500.2500, L100.0100 ####[facility] [address] [place], [address] Neutrophils/100 WBC (Bld) 54.7 % Normal 47-70 [facility] Comment on above: Performed By: #### L 500.2500, L100.0100 ####[facility] [address] [place], [address] Nucleated RBC (Bld) [#/Vol] 0 10*3/uL Normal 0-5 [facility] Comment on above: Performed By: #### L 500.2500, L100.0100 ####[facility] [address] [place], [address] Platelet mean volume (Bld) [Entitic vol] 8.9 fL Normal 6.2-12.0 [facility] Comment on above: Performed By: #### L 500.2500, L100.0100 ####[facility] [address] [place], [address] Platelets (Bld) [#/Vol] 365 10*3/uL Normal 150-450 [facility] Comment on above: Performed By: #### L 500.2500, L100.0100 ####[facility] [address] [place], [address] RBC (Bld) [#/Vol] 4.39 10*6/uL Normal 4.2-5.4 [facility] Comment on above: Performed By: #### L 500.2500, L100.0100 ####[facility] [address] [place], [address] RDW SD 40.7 fl Normal 35.1-43.9 [facility] Comment on above: Performed By: #### L 500.2500, L100.0100 ####[facility] [address] [place], [address] WBC (Bld) [#/Vol] 9.4 10*3/uL Normal 4.4-11.0 [facility] Comment on above: Performed By: #### L 500.2500, L100.0100 ####[facility] [address] [place], [address] Carbon dioxide, total [Moles /volume] in Central venous bloodOrdered By: Cierra Dinreo on 01-15-2025 CO2 [Moles/Vol] 22.8 mmol/L 21.0-32.0 [facility] Chloride assayOrdered By: Mona Dinero on 01-15-2025 Chloride [Moles/Vol] 104 mmol/L 98-108 [facility] Emergency Department Summary on 01-15-2025 Emergency Department Summary [facility] Medical Records Department [address] [place] [address] Emergency Department Summary 01/15/25 MR#: [id number] Acct: [id number] Name: DANE OLIVERA Rep #: [id number] : 1985 39 From: Cierra SANTORO PCP: [...] denies fevers, chills, vomiting, and urinary symptoms. [facility] Medical History Tachycardia IUD (intrauterine device) [...] discharged home (more content not included)... Normal [facility] Eosinophil percentageOrdered By: Cierra Dinero on 01-15-2025 Eosinophils/100 WBC (Bld) 2.0 % 0-5 [facility] Erythrocyte distribution wid th ratioOrdered By: Cierra Dinero on 01-15-2025 Erythrocyte distribution width (RBC) [Ratio] 12.1 % 11.6-14.6 [facility] Erythrocyte distribution wid th standard deviationOrdered By: Cierraaustyn Dinero on 01-15-2025 Erythrocyte distribution width (RBC) [Ratio] 40.7 fl 35.1-43.9 [facility] Glomerular filtration rate ( GFR) estimation/1.73 sq m using serum, plasma, or whole bOrdered By: Cierra Dinero on 01-15-2025 GFR/1.73 sq M.predicted among non-blacks MDRD (S/P/Bld) [Vol rate/Area] 103 mL/min/{1.73_m2} >60 [facility] Comment on above: mL/min/1.73m2 CKD-EP I Creatinine Equation (2020) Hematocrit Auto (Bld) [Volum e fraction]Ordered By: Cierra Dinero on 01-15-2025 Hematocrit (Bld) [Volume fraction] 40.0 % 37-47 [facility] Hemoglobin measurementOrdere d By: Cierraaustyn Dinero on 01-15-2025 Hemoglobin (Bld) [Mass/Vol] 13.8 g/dL 12.0-15.0 [facility] Immature granulocytes/100 WB C Auto (Bld)Ordered By: Cierra Dinero on 01-15-2025 Immature granulocytes/100 WBC (Bld) 0.200 % 0.0-0.9 [facility] Comment on above: IG% - Immature Granu locytes (promyelocytes, myelocytes and metamyelocytes) > 1% indicates that a LEFT SHIFT is Present. MCV (mean corpuscular volume ) determinationOrdered By: Cierraaustyn Dinero on 01-15-2025 MCV (RBC) [Entitic vol] 91.1 fL 81-99 [facility] Mean corpuscular hemoglobin (MCH) determinationOrdered By: Cierraaustyn Dinero on 01-15-2025 MCH (RBC) [Entitic mass] 31.4 pg 27.0-32.0 [facility] Mean corpuscular hemoglobin concentration (MCHC) determinationOrdered By: Cierraaustyn Dinero 01-15-2025 MCHC (RBC) [Mass/Vol] 34.5 g/dL 32-36 [facility] Mean platelet volume determi nationOrdered By: Cierra Dinero on 01-15-2025 Platelet mean volume (Bld) [Entitic vol] 8.9 fL 6.2-12.0 [facility] Monocyte percentageOrdered B y: Cierra Dinero on 01-15-2025 Monocytes/100 WBC (Bld) 8.8 % 0-10 [facility] Neutrophil percentageOrdered By: Cierra Dinero on 01-15-2025 Neutrophils/100 WBC (Bld) 54.7 % 47-70 [facility] Nucleated red blood cell per centageOrdered By: Cierra Dinero on 01-15-2025 Nucleated RBC/100 WBC (Bld) [Ratio] 0 % 0-5 [facility] Platelet countOrdered By: Mona Dinero on 01-15-2025 Platelets (Bld) [#/Vol] 365 10*3/uL 150-450 [facility] Potassium measurement (mass/ volume)Ordered By: Cierra Dinero on 01-15-2025 Potassium (Unsp spec) [Mass/Vol] 4.2 mmol/L 3.3-5.1 [facility] RBC Auto (Bld) [#/Vol]Ordere d By: Cierra Dinero on 01-15-2025 RBC (Bld) [#/Vol] 4.39 10*6/uL 4.2-5.4 [facility] Serum creatinine measurement (mass/volume)Ordered By: Cierra Dinero on 01-15-2025 Creatinine [Mass/Vol] 0.76 mg/dL 0.70-1.20 [facility] Serum glucose measurement (m ass/volume)Ordered By: Cierra Dinero on 01-15-2025 Glucose [Mass/Vol] 94 mg/dL 70-99 [facility] Serum or plasma calcium hong urement (mass/volume)Ordered By: Cierra Dinero on 01-15-2025 Calcium [Mass/Vol] 9.2 mg/dL 7.6-11.0 [facility] Serum or plasma urea nitroge n measurement (mass/volume)Ordered By: Cierra Dinero on 01-15-2025 Urea nitrogen [Mass/Vol] 11 mg/dL 4-19 [facility] Sodium levelOrdered By: Regino Dinero on 01-15-2025 Sodium [Moles/Vol] 139 mmol/L 133-145 [facility] White blood cell (WBC) count Ordered By: Cierra Dinero on 01-15-2025 WBC (Bld) [#/Vol] 9.4 10*3/uL 4.4-11.0 [facility] CNOVon 12-31-2024 CNOV Office Visit (CELINEWS ) -- DANE OLIVERA ([id number]) 1985 F Date Time Provider Department 12/31/24 1:00 PM HUI VALDES During your visit today, we recorded the following information about you: Pulse Respiration Blood pressure Weight 100/minute 16/minute 122/78 74.4 kg Hui Valdes APRN.ASSISTANT HEAD CASHIER 12/31/2024 1:48 PM Signed 12/29/2024 Patient presents [...] in partial remission, most recent episode mixed ([facility]) 10/04/2019 Depression, major, recurrent, moderate ([facility]) 07/07/2018 Diet controlled gestational diabetes mellitus (GDM) in second trimester (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) 07/26/2021 Sensitive to Vanc Hemorrhoids Herpes [...] tract infection in , antepartum, second trimester ([facility]) 03/28/2022 Urogenital trichomoniasis 2017 Not totally [...] - 34 (more content not included)... Normal [facility] Arjun 12-28-2024 CNPN Telephone (OBGYWM) -- DANE OLIVERA ([id number]) 1985 F Date Time Provider Department 12/28/24 TEMITOPE BEAR During your visit today, we recorded the following information about you: Frances Parnell RN 12/28/2024 4:43 PM Signed Received the following message from [facility]: Patient is requesting to have their IUD removed. Please put in a order for this so that it can be scheduled. Order pending. Please file and then route to scheduling. Thank you. HARRIET Moore Jessica, APRN.CN 12/28/2024 4:59 PM Signed Order signed. GARIMA Franklin Trisha, RN 12/29/2024 8:07 AM Signed Please contact patient to schedule IUD removal. Young Montelongo RN Allergies As of Date: 12/28/2024 Noted Allergy Reaction AMOXICILLIN 07/07/2018 16 - Unknown Comments: WAS TOLD BY MOM Date Reviewed: 10/18/2024 Reviewed by: Ernesto Suarez MA - Fully Assessed Reason for Visit: Orders [681] Primary Visit Diagnosis:Encounter for IUD removal [Z30.432] Order(s):REMOVE INTRAUTERINE DEVICE [2653257] Order #: [id number] Prescriptions as of 12/29/2024 - venlafaxine ER [...] Status:Closed by YOUNG MONTELONGO on 12/29/24 Normal [facility] BACTERIAL VAGINOSIS NAATon 0 2- Lactobacillus crispatus+gasseri+tanner senii + Gardnerella vaginalis + Atopobium vaginae rRNA CASSIDY+probe Ql (Vag fld) Not detected Normal Not detected [facility] Comment on above: Order Comment: Speci men Type: SWABOrdering Facility: [facility] Address: [address] [place] [address] Performed By: #### C VTV, BVAMP ####[facility] [id number] [place] [address] [place] C. trachomatis+N. gonorrhoea e DNA CASSIDY+probe Ql (Unsp spec)on 10-18-2024 C. trachomatis rRNA CASSIDY+probe Ql (Unsp spec) Not detected Normal Not detected [facility] Comment on above: Order Comment: Speci men Type: SWABOrdering Facility: [facility] Address: [address] [place] [address] Performed By: #### 3 6902-5 ####[facility] [id number] [place] [address] [place] N. gonorrhoeae rRNA CASSIDY+probe Ql (Unsp spec) Not detected Normal Not detected [facility] Comment on above: Order Comment: Speci men Type: SWABOrdering Facility: [facility] Address: [address] [place] [address] Performed By: #### 3 6902-5 ####[facility] [id number] [place] [address] [place] ALEX/TRICHOMONAS NAATon 0 10-18-2024 C. glabrata RNA CASSIDY+probe Ql (Vag fld) Not detected Normal Not detected [facility] Comment on above: Order Comment: Speci men Type: SWABOrdering Facility: [facility] Address: [address] [place] [address] Performed By: #### C VTV, BVAMP ####[facility] [id number] [place] [address] [place] Alex sp DNA CASSIDY+probe Ql (Vag fld) Not detected Normal Not detected [facility] Comment on above: Order Comment: Speci men Type: SWABOrdering Facility: [facility] Address: [address] [place] [address] Result Comment: The Alex species group target includes C. albicans, C. tropicalis, C. parapsilosis, and C. dubliniensis. Performed By: #### C VTV, BVAMP ####[facility] [id number] [address] [place] T. vaginalis DNA CASSIDY+probe Ql (Unsp spec) Not detected Normal Not detected [facility] Comment on above: Order Comment: Speci men Type: SWABOrdering Facility: [facility] Address: [address] [place] [address] Performed By: #### C VTV, BVAMP ####[facility] [id number] [address] [place] CNOVon 10-18-2024 CNOV Office Visit (OBGYWM ) -- DANE OLIVERA ([id number]) 1985 F Date Time Provider Department 10/18/24 [...] L5 SAB0 IAB1 Ectopic0 Multiple0 Live Births5 Finishing Pan Operator History LMP: 10/11/2024 (Approximate), IUD Age at Menarche: 9 Age at First : 21 Age at Menopause: Finishing Pan Operator History Comments: Sexual Activity: Yes; Male Contraception: [...] discussed with the Patient or Patient's Authorized Curling Machine Operator. As applicable, any other physician, advance practice provider, medical student, or other health professional student that will be observing or involved in the sensitive examination for educational or training purposes was discussed with the Patient or Authorized Curling Machine Operator. The Patient or Authorized Curling Machine Operator has agreed to proceed with the sensitive examination. (Sensitive examination includes inspection and/or palpation of the breasts, pelvis, prostate and anorectal regions). EXAM: BP 126/74 Ht 5' 4 (1.63m) Wt 167 lb (75.8kg) LMP 10/11/2024 BMI 28.65 kg/(m2). GENERAL: pleasant, fe (more content not included)... Normal [facility] HBV surface Ag Ser Qlon 02-0 HBV surface Ag Ql (S) Negative Normal Negative [facility] Comment on above: Order Comment: Speci men Type: BLOOD SPECIMENOrdering Facility: [facility] Address: [address] [place] [address] Performed By: #### 3 1201-7, 5195-3, 55880-4 ####[facility] [id number] [place] [address] [place] HCV Ab Ser Qlon 10-18-2024 HCV Ab Ql (S) Negative Normal Negative [facility] Comment on above: Order Comment: Speci men Type: BLOOD SPECIMENOrdering Facility: [facility] Address: [address] [place] [address] Result Comment: The result suggests no evidence of active infection with Hepatitis C virus. Should recent infection be suspected, repeat testing may be considered 4-6 weeks after this draw. Performed By: #### 1 6128-1 ####[facility] [id number] [place] [address] [place] HIGH RISK HUMAN PAPILLOMA DONATO (HPV), PCR FOR DETECTION AND GENOTYPINGon 10-18-2024 HPV 16 Ag Ql (Unsp spec) Not detected Normal Not detected [facility] Comment on above: Order Comment: Speci men Type: FLUID SPECIMENOrdering Facility: [facility] Address: [address] [place] [address] Performed By: #### H PVHRT ####[facility] [id number] [place] [address] [place] HPV 18 Ag Ql (Unsp spec) Not detected Normal Not detected [facility] Comment on above: Order Comment: Speci men Type: FLUID SPECIMENOrdering Facility: [facility] Address: [address] [place] [address] Performed By: #### H PVHRT ####[facility] [id number] [place] [address] [place] HPV 31+33+35+39+45+51+52+ 56+58+59+66+68 DNA CASSIDY+probe Ql (Cvx) Not detected Normal Not detected [facility] Comment on above: Order Comment: Speci men Type: FLUID SPECIMENOrdering Facility: [facility] Address: [address] [place] [address] Result Comment: High Risk HPV Other Type includes HPV types 31, 33, 35, 39, 45, 51, 52, 56, 58, 59, 66 and 68. Performed By: #### H PVHRT ####[facility] [id number] [place] [address] [place] HIV 1+2 Ab IA Qlon 5 HIV 1 and 2 Ab IA.rapid Nom (S/P/Bld) Normal [facility] Comment on above: Order Comment: Speci men Type: BLOOD SPECIMENOrdering Facility: [facility] Address: [address] [place] [address] Result Comment: Test not indicated. Performed By: #### 3 1201-7, 5195-3, 55880-3 ####[facility] [id number] [place] [address] [place] HIV 1+2 Ab+HIV1 p24 Ag IA Ql Non-Reactive Normal Nonreactive [facility] Comment on above: Order Comment: Speci men Type: BLOOD SPECIMENOrdering Facility: [facility] Address: [address] [place] [address] Performed By: #### 3 1201-7, 5195-3, 92406-2 ####[facility] [id number] [place] [address] [place] HIV immunoassay testing algorithm interpretation (S/P/Bld) [Interp] Normal [facility] Comment on above: Order Comment: Speci men Type: BLOOD SPECIMENOrdering Facility: [facility] Address: [address] [place] [address] Result Comment: No e vidence of HIV-1 or HIV-2 infection. Should recent infection be suspected, repeat testing may be considered 2-3 weeks after this draw. Kay Rev. Code 3701.243(E): This information has been [...] diagnoses. Performed By: #### 3 1201-7, 5195-3, 10739-0 ####[facility] [id number] [place] [address] [place] PAP TESTon 10-18-2024 ADEQUACY Satisfactory for interpretation. Normal [facility] Comment on above: Order Comment: Speci men Type: FLUID SPECIMENOrdering Facility: [facility] Address: [address] [place] [address] Performed By: #### L [id number] ####[facility] [id number] [address] [place] CASE REPORT Normal [facility] Comment on above: Order Comment: Speci men Type: FLUID SPECIMENOrdering Facility: [facility] Address: [address] [place] [address] Result Comment: Gyne cologic Cytology Report Case: [id number] Authorizing Provider: Temitope Bear APRN.CNErika Collected: 10/18/2024 10:44 AM Ordering Location: OB/Gynecology Received: 10/18/2024 12:00 PM First Screen: Serena Renteria CT, ASCP Pathologist: Iwona Turner MD Specimen: Pap Test, ThinPrep, Cervix Performed By: #### L [id number] ####[facility] [id number] [place] [address] [place] CLINICAL HISTORY, CYTOLOGY, EVENT SALES REPRESENTATIVE Routine Exam Normal [facility] Comment on above: Order Comment: Speci men Type: FLUID SPECIMENOrdering Facility: [facility] Address: [address] [place] [address] Result Comment: Prev ious ASCUS Intra Uterine Device, No Menses Performed By: #### L [id number] ####[facility] [id number] [place] [address] [place] CYTOLOGY PAP OTHER INTERPRETATION Normal [facility] Comment on above: Order Comment: Speci men Type: FLUID SPECIMENOrdering Facility: [facility] Address: [address] [place] [address] Result Comment: Bact eria present morphologically consistent with Actinomyces species. Acute inflammation. Performed By: #### L [id number] ####[facility] [id number] [place] [address] [place] FINAL PERFORMING LAB Normal [facility] Comment on above: Order Comment: Speci men Type: FLUID SPECIMENOrdering Facility: [facility] Address: [address] [place] [address] Result Comment: Tech nical component, medical advisor screening performed at [facility], [address], [place] [address] CLIA# [id number] Diagnostic interpretation performed at [facility], [address], [place] [address] CLIA# [id number] Intelligence Analyst: Madelyn Day M.D. Performed By: #### L [id number] ####[facility] [id number] [address] [place] INTERPRETATION, CYTOLOGY, EVENT SALES REPRESENTATIVE Normal [facility] Comment on above: Order Comment: Speci men Type: FLUID SPECIMENOrdering Facility: [facility] Address: [address] [place] [address] Result Comment: Nega tive for intraepithelial lesion or malignancy. at 0841 EST Performed By: #### L [id number] ####[facility] [id number] [address] [place] PAP DISCLAIMER COMMENT The Pap Smear is a screening test for cervical cancer. False negative results occur with all screening tests, emphasizing the need for rescreening at recommended intervals, and clinical correlation. Normal [facility] Comment on above: Order Comment: Speci men Type: FLUID SPECIMENOrdering Facility: [facility] Address: [address] [place] [address] Performed By: #### L [id number] ####[facility] [id number] [place] [address] [place] PAP MILLING MACHINIST COMMENT This specimen has be en analyzed by the ThinPrep Imaging System, an automated imaging and review system, which assists the laboratory in evaluating cells on ThinPrep Pap tests. Following automated imaging, selected cobb from every slide are reviewed by a medical advisor. Normal [facility] Comment on above: Order Comment: Speci men Type: FLUID SPECIMENOrdering Facility: [facility] Address: [address] [place] [address] Performed By: #### L [id number] ####[facility] [id number] [place] [address] [place] Reagin and Treponema pallidu m IgG and IgM [Interp]on 10-18-2024 T. pallidum IgG+IgM IA Ql (S) Non-Reactive Normal Nonreactive [facility] Comment on above: Order Comment: Janis covington Type: BLOOD SPECIMENOrdering Facility: [facility] Address: [address] [place] [address] Performed By: #### 3 1201-7, 5195-3, 93639-7 ####[facility] [id number] [place] [address] [place] Reagin+T pallidum IgG+IgM Se rPl-Impon 10-18-2024 Reagin and Treponema pallidum IgG and IgM [Interp] Cannot exclude recent Treponemal infection if specimen collected within 7-10 days after appearance of suspect lesions or 2-3 weeks after an exposure. Clinical correlation is required. Normal [facility] Comment on above: Order Comment: Ginai men Type: BLOOD SPECIMENOrdering Facility: [facility] Address: [address] [place] [address] Performed By: #### 3 1201-7, 5195-3, 55296-1 ####[facility] [id number] [place] [id number] [place] CNPTheresa 08-13-2024 CNPN Telephone (NETNAV) -- DANE OLIVERA ([id number]) 1985 F Date Time Provider Department 08/13/24 NO PCP NETNAV During your visit today, we recorded the following information about you: Rebecca Rhodes 08/13/2024 3:44 PM Signed [employer] [facility] [employer] [employer] Action/I 1st attempt, call placed to pt for PT consult for OAB (overactive bladder) [N32.81]. Order is dated 07/05/24. Pt declined to [facility] at this time. Pt plans to go [...] Status:Closed by REBECCA RHODES on 08/13/24 Normal [facility] CBC W Auto Differential pane l (Bld)on 07-08-2024 Basophils (Bld) [#/Vol] 0.07 10*3/uL Normal <0.11 [facility] Comment on above: Order Comment: Speci men Type: BLOOD SPECIMENOrdering Facility: [facility] Address: [address] [place] [address] Performed By: #### 5 7021-8 ####[facility] [id number] [place] [address] [place] Basophils/100 WBC (Bld) 0.9 % Normal [facility] Comment on above: Order Comment: Speci men Type: BLOOD SPECIMENOrdering Facility: [facility] Address: [address] [place] [address] Performed By: #### 5 7021-8 ####[facility] [id number] [place] [address] [place] Differential cell count method Nom (Bld) Auto Normal [facility] Comment on above: Order Comment: Speci men Type: BLOOD SPECIMENOrdering Facility: [facility] Address: [address] [place] [address] Performed By: #### 5 7021-8 ####[facility] [id number] [place] [address] [place] Eosinophils (Bld) [#/Vol] 0.14 10*3/uL Normal <0.46 [facility] Comment on above: Order Comment: Speci men Type: BLOOD SPECIMENOrdering Facility: [facility] Address: [address] [place] [address] Performed By: #### 5 7021-8 ####[facility] [id number] [place] [address] [place] Eosinophils/100 WBC (Bld) 1.8 % Normal [facility] Comment on above: Order Comment: Speci men Type: BLOOD SPECIMENOrdering Facility: [facility] Address: [address] [place] [address] Performed By: #### 5 7021-8 ####[facility] [id number] [place] [address] [place] Erythrocyte distribution width (RBC) [Ratio] 12.2 % Normal 11.5-15.0 [facility] Comment on above: Order Comment: Speci men Type: BLOOD SPECIMENOrdering Facility: [facility] Address: [address] [place] [address] Performed By: #### 5 7021-8 ####[facility] [id number] [place] [address] [place] Hematocrit (Bld) [Volume fraction] 41.2 % Normal 36.0-46.0 [facility] Comment on above: Order Comment: Speci men Type: BLOOD SPECIMENOrdering Facility: [facility] Address: [address] [place] [address] Performed By: #### 5 7021-8 ####[facility] [id number] [place] [address] [place] Hemoglobin (Bld) [Mass/Vol] 13.6 g/dL Normal 11.5-15.5 [facility] Comment on above: Order Comment: Speci men Type: BLOOD SPECIMENOrdering Facility: [facility] Address: [address] [place] [address] Performed By: #### 5 7021-8 ####[facility] [id number] [place] [address] [place] Immature granulocytes (Bld) [#/Vol] 0.03 10*3/uL Normal <0.10 [facility] Comment on above: Order Comment: Speci men Type: BLOOD SPECIMENOrdering Facility: [facility] Address: [address] [place] [address] Performed By: #### 5 7021-8 ####[facility] [id number] [place] [address] [place] Immature granulocytes/100 WBC (Bld) 0.4 % Normal [facility] Comment on above: Order Comment: Speci men Type: BLOOD SPECIMENOrdering Facility: [facility] Address: [address] [place] [address] Performed By: #### 5 7021-8 ####[facility] [id number] [place] [address] [place] Lymphocytes (Bld) [#/Vol] 2.90 10*3/uL Normal 1.00-4.00 [facility] Comment on above: Order Comment: Speci men Type: BLOOD SPECIMENOrdering Facility: [facility] Address: [address] [place] [address] Performed By: #### 5 7021-8 ####[facility] [id number] [place] [address] [place] Lymphocytes/100 WBC (Bld) 38.2 % Normal [facility] Comment on above: Order Comment: Speci men Type: BLOOD SPECIMENOrdering Facility: [facility] Address: [address] [place] [address] Performed By: #### 5 7021-8 ####[facility] [id number] [place] [address] [place] MCH (RBC) [Entitic mass] 31.0 pg Normal 26.0-34.0 [facility] Comment on above: Order Comment: Speci men Type: BLOOD SPECIMENOrdering Facility: [facility] Address: [address] [place] [address] Performed By: #### 5 7021-8 ####[facility] [id number] [place] [address] [place] MCHC (RBC) [Mass/Vol] 33.0 g/dL Normal 30.5-36.0 [facility] Comment on above: Order Comment: Speci men Type: BLOOD SPECIMENOrdering Facility: [facility] Address: [address] [place] [address] Performed By: #### 5 7021-8 ####[facility] [id number] [place] [address] [place] MCV (RBC) [Entitic vol] 93.8 fL Normal 80.0-100.0 [facility] Comment on above: Order Comment: Speci men Type: BLOOD SPECIMENOrdering Facility: [facility] Address: [address] [place] [address] Performed By: #### 5 7021-8 ####[facility] [id number] [place] [address] [place] Monocytes (Bld) [#/Vol] 0.71 10*3/uL Normal <0.87 [facility] Comment on above: Order Comment: Speci men Type: BLOOD SPECIMENOrdering Facility: [facility] Address: [address] [place] [address] Performed By: #### 5 7021-8 ####[facility] [id number] [place] [address] [place] Monocytes/100 WBC (Bld) 9.4 % Normal [facility] Comment on above: Order Comment: Speci men Type: BLOOD SPECIMENOrdering Facility: [facility] Address: [address] [place] [address] Performed By: #### 5 7021-8 ####[facility] [id number] [place] [address] [place] Neutrophils (Bld) [#/Vol] 3.74 10*3/uL Normal 1.45-7.50 [facility] Comment on above: Order Comment: Speci men Type: BLOOD SPECIMENOrdering Facility: [facility] Address: [address] [place] [address] Performed By: #### 5 7021-8 ####[facility] [id number] [place] [address] [place] Neutrophils/100 WBC (Bld) 49.3 % Normal [facility] Comment on above: Order Comment: Speci men Type: BLOOD SPECIMENOrdering Facility: [facility] Address: [address] [place] [address] Performed By: #### 5 7021-8 ####[facility] [id number] [place] [address] [place] Nucleated RBC (Bld) [#/Vol] 10*3/uL Normal <0.01 [facility] Comment on above: Order Comment: Speci men Type: BLOOD SPECIMENOrdering Facility: [facility] Address: [address] [place] [address] Performed By: #### 5 7021-8 ####[facility] [id number] [place] [address] [place] Nucleated RBC/100 WBC (Bld) [Ratio] 0.0 /100 WBC Normal [facility] Comment on above: Order Comment: Speci men Type: BLOOD SPECIMENOrdering Facility: [facility] Address: [address] [place] [address] Performed By: #### 5 7021-8 ####[facility] [id number] [place] [address] [place] Platelet mean volume (Bld) [Entitic vol] 9.5 fL Normal 9.0-12.7 [facility] Comment on above: Order Comment: Speci men Type: BLOOD SPECIMENOrdering Facility: [facility] Address: [address] [place] [address] Performed By: #### 5 7021-8 ####[facility] [id number] [place] [address] [place] Platelets (Bld) [#/Vol] 354 10*3/uL Normal 150-400 [facility] Comment on above: Order Comment: Speci men Type: BLOOD SPECIMENOrdering Facility: [facility] Address: [address] [place] [address] Performed By: #### 5 7021-8 ####[facility] [id number] [place] [address] [place] RBC (Bld) [#/Vol] 4.39 10*6/uL Normal 3.90-5.20 [facility] Comment on above: Order Comment: Speci men Type: BLOOD SPECIMENOrdering Facility: [facility] Address: [address] [place] [address] Performed By: #### 5 7021-8 ####[facility] [id number] [place] [address] [place] WBC (Bld) [#/Vol] 7.59 10*3/uL Normal 3.70-11.00 [facility] Comment on above: Order Comment: Speci men Type: BLOOD SPECIMENOrdering Facility: [facility] Address: [address] [place] [address] Performed By: #### 5 7021-8 ####[facility] [id number] [place] [address] [place] Comprehensive metabolic 2000 panelon 07-08-2024 Albumin [Mass/Vol] 4.2 g/dL Normal 3.9-4.9 [facility] Comment on above: Order Comment: Speci men Type: BLOOD SPECIMENOrdering Facility: [facility] Address: [address] [place] [address] Performed By: #### 2 4323-8, 56896-8 ####[facility] [id number] [place] [address] [place] ALP [Catalytic activity/Vol] 41 U/L Normal 34-123 [facility] Comment on above: Order Comment: Speci men Type: BLOOD SPECIMENOrdering Facility: [facility] Address: [address] [place] [id number] Performed By: #### 2 4323-8, 80201-2 ####[facility] [id number] [place] [address] [place] ALT [Catalytic activity/Vol] 10 U/L Normal 7-38 [facility] Comment on above: Order Comment: Speci men Type: BLOOD SPECIMENOrdering Facility: [facility] Address: [address] [place] [address] Performed By: #### 2 4323-8, 93500-7 ####[facility] [id number] [place] [address] [place] Anion gap [Moles/Vol] 10 mmol/L Normal 8-15 [facility] Comment on above: Order Comment: Speci men Type: BLOOD SPECIMENOrdering Facility: [facility] Address: [address] [place] [address] Performed By: #### 2 4323-8, 12416-2 ####[facility] [id number] [place] [address] [place] AST [Catalytic activity/Vol] 13 U/L Normal 13-35 [facility] Comment on above: Order Comment: Speci men Type: BLOOD SPECIMENOrdering Facility: [facility] Address: [address] [place], [place] [id number] Performed By: #### 2 4323-8, 78572-9 ####[facility] [id number] [place] [id number] [place] Bilirubin [Mass/Vol] 0.7 mg/dL Normal 0.2-1.3 [facility] Comment on above: Order Comment: Speci men Type: BLOOD SPECIMENOrdering Facility: [facility] Address: [address] [place] [address] Performed By: #### 2 4323-8, 27934-2 ####[facility] [id number] [place] [id number] [place] Calcium [Mass/Vol] 9.0 mg/dL Normal 8.5-10.2 [facility] Comment on above: Order Comment: Speci men Type: BLOOD SPECIMENOrdering Facility: [facility] Address: [address] [place] [address] Performed By: #### 2 4323-8, 75878-1 ####[facility] [id number] [place] [address] [place] Chloride [Moles/Vol] 106 mmol/L Normal 98-107 [facility] Comment on above: Order Comment: Speci men Type: BLOOD SPECIMENOrdering Facility: [facility] Address: [address] [place] [address] Performed By: #### 2 4323-8, 56588-6 ####[facility] [id number] [place] [address] [place] CO2 [Moles/Vol] 24 mmol/L Normal 22-30 [facility] Comment on above: Order Comment: Speci men Type: BLOOD SPECIMENOrdering Facility: [facility] Address: [address] [place] [address] Performed By: #### 2 4323-8, 17193-4 ####[facility] [id number] [place] [address] [place] Creatinine [Mass/Vol] 0.84 mg/dL Normal 0.58-0.96 [facility] Comment on above: Order Comment: Speci men Type: BLOOD SPECIMENOrdering Facility: [facility] Address: [address] [place] [address] Performed By: #### 2 4323-8, 43402-2 ####[facility] [id number] [place] [address] [place] Creatinine and Glomerular filtration rate.predicted panel (S/P/Bld) 91 mL/min/1.73m??? Normal >=60 [facility] Comment on above: Order Comment: Janis covington Type: BLOOD SPECIMENOrdering Facility: [facility] Address: [address] [place] [address] Result Comment: Grace mated Glomerular Filtration Rate [...] actual GFR. Performed By: #### 2 4323-8, 71963-5 ####[facility] [id number] [place] [address] [place] Glucose [Mass/Vol] 96 mg/dL Normal 74-99 [facility] Comment on above: Order Comment: Janis covington Type: BLOOD SPECIMENOrdering Facility: [facility] Address: [address] [place] [address] Result Comment: The [place] [employer] (ADA) provides guidance for cutoff [...] Standards of Medical Care in Diabetes 2016, [place] [employer]. Diabetes Care. 2016.39(Suppl 1). Performed By: #### 2 4323-8, 46645-9 ####[facility] [id number] [place] [address] [place] Potassium [Moles/Vol] 3.7 mmol/L Normal 3.7-5.1 [facility] Comment on above: Order Comment: Speci men Type: BLOOD SPECIMENOrdering Facility: [facility] Address: [address] [place] [id number] Performed By: #### 2 4323-8, 83045-2 ####[facility] [id number] [place] [address] [place] Protein [Mass/Vol] 6.5 g/dL Normal 6.3-8.0 [facility] Comment on above: Order Comment: Speci men Type: BLOOD SPECIMENOrdering Facility: [facility] Address: [address] [place] [address] Performed By: #### 2 4323-8, 15942-1 ####[facility] [id number] [place] [address] [place] Sodium [Moles/Vol] 140 mmol/L Normal 136-144 [facility] Comment on above: Order Comment: Speci men Type: BLOOD SPECIMENOrdering Facility: [facility] Address: [address] [place] [address] Performed By: #### 2 4323-8, 42056-0 ####[facility] [id number] [place] [address] [place] Urea nitrogen [Mass/Vol] 11 mg/dL Normal 7-21 [facility] Comment on above: Order Comment: Speci men Type: BLOOD SPECIMENOrdering Facility: [facility] Address: [address] [place] [id number] Performed By: #### 2 4323-8, 09526-9 ####[facility] [id number] [place] [address] [place] Lipid 1996 panelon 4 Cholesterol [Mass/Vol] 191 mg/dL Normal <200 [facility] Comment on above: Order Comment: Speci men Type: BLOOD SPECIMENOrdering Facility: [facility] Address: [address] [place] [address] Result Comment: <200 mg/dL, Desirable 200-239 mg/dL, Borderline high >239 mg/dL, High Performed By: #### 2 4323-8, 05463-8 ####[facility] [id number] [place] [address] [place] Cholesterol in HDL [Mass/Vol] 35 mg/dL Low >39 [facility] Comment on above: Order Comment: Speci men Type: BLOOD SPECIMENOrdering Facility: [facility] Address: [address] [place] [address] Result Comment: 40-5 9 mg/dL, Acceptable >59 mg/dL, High: Negative risk factor for coronary heart disease <40 mg/dL, Low: Positive risk factor for coronary heart disease Performed By: #### 2 4323-8, 79742-1 ####[facility] [id number] [address] STATES [facility] Cholesterol in LDL [Mass/Vol] 136 mg/dL High <100 [facility] Comment on above: Order Comment: Janis nadya Type: BLOOD SPECIMENOrdering Facility: [facility] Address: [address] [place] [address] Result Comment: <100 mg/dL, Optimal 100-129 mg/dL, Near optimal/above optimal 130-159 mg/dL, Borderline high 160-189 mg/dL, High >189 mg/dL, Very high Secondary prevention optimal LDL Cholesterol levels are recommended to be < 70 mg/dL Performed By: #### 2 4323-8, 68631-4 ####[facility] [id number] [place] [address] [place] Cholesterol in LDL/Cholesterol in HDL [Mass ratio] 3.89 {ratio} High <2.54 [facility] Comment on above: Order Comment: Janis covington Type: BLOOD SPECIMENOrdering Facility: [facility] Address: [address] [place] [address] Result Comment: Refe hannah: 1. National Cholesterol Education Program ATP III Guideline At-A-Glance Quick Desk Reference: National Heart, Lung, and Blood [place]. National Institutes of Health. 2001: NIH Publication No. 01-3305. 2. An International Atherosclerosis Society position paper: global recommendations for the management of dyslipidemia: executive summary, Atherosclerosis. 2014: 232(2):410-413. Performed By: #### 2 4323-8, 57566-4 ####[facility] [id number] [place] [address] [place] Cholesterol in VLDL [Mass/Vol] 20 mg/dL Normal <30 [facility] Comment on above: Order Comment: Speci men Type: BLOOD SPECIMENOrdering Facility: [facility] Address: [address] [place] [address] Performed By: #### 2 4328, ####[facility] [id number] [place] [address] [place] Cholesterol non HDL [Mass/Vol] 156 mg/dL High <130 [facility] Comment on above: Order Comment: Ginai men Type: BLOOD SPECIMENOrdering Facility: [facility] Address: [address] [place] [address] Result Comment: <130 mg/dL, Optimal 130-159 mg/dL, Near optimal/above optimal 160-189 mg/dL, Borderline high 190-219 mg/dL, High >219 mg/dL, Very high Secondary prevention optimal non HDL Cholesterol levels are recommended to be <100 mg/dL Performed By: #### 2 4328, ####[facility] [id number] [place] [address] [place] Cholesterol.total/Cho lesterol in HDL [Mass ratio] 5.46 {ratio} High <5.10 [facility] Comment on above: Order Comment: Ginai men Type: BLOOD SPECIMENOrdering Facility: [facility] Address: [address] [place] [address] Performed By: #### 2 4323-8, 98809-8 ####[facility] [id number] [address] [place] FASTING TIME 12 hrs Normal [facility] Comment on above: Order Comment: Speci men Type: BLOOD SPECIMENOrdering Facility: [facility] Address: [address] [place] [address] Performed By: #### 2 4323-8, 71769-9 ####[facility] [id number] [place] [address] [place] Triglyceride [Mass/Vol] 102 mg/dL Normal <150 [facility] Comment on above: Order Comment: Speci men Type: BLOOD SPECIMENOrdering Facility: [facility] Address: [address] [place] [address] Result Comment: <150 mg/dL, Normal 150-199 mg/dL, Borderline high 200-499 mg/dL, High >499 mg/dL, Very high Performed By: #### 2 4323-8, 23779-2 ####[facility] [id number] [address] [place] CNOVon 07-05-2024 CNOV Office Visit (CHUCKY ) -- DANE OLIVERA ([id number]) 1985 F Date Time Provider Department 07/05/24 [...] to pelvic floor therapy but moved from [place] which is were she was going to [...] nausea, vomiting, or diarrhea : See HPI EVENT SALES REPRESENTATIVE: Negative for abnormal vaginal bleeding, abnormal vaginal [...] by t (more content not included)... Normal [facility] CNOVon 11-07-2023 CNOV Office Visit (UROLAE ) -- DANE OLIVERA ([id number]) 1985 F Date Time Provider Department 11/07/23 12:45 PM JOANNA WILKES During your visit today, we recorded the following information about you: Pulse Blood pressure 73/minute 110/71 Joanna Wilkes MD 12/14/2023 10:49 AM Signed [facility] NEW [...] Procedures None Current Urologic Medications None Past ACCOUNT REPRESENTATIVE History: G 6 P 5 Vaginal deliveries: [...] 11/05/2023 Contracept (more content not included)... Normal [facility] CBC W Auto Differential pane l (Bld)on 07-01-2023 Basophils (Bld) [#/Vol] 0.06 10*3/uL <0.11 k/uL [facility] Basophils/100 WBC (Bld) 0.8 % [facility] Differential cell count method Nom (Bld) Auto [facility] Eosinophils (Bld) [#/Vol] 0.14 10*3/uL <0.46 k/uL [facility] Eosinophils/100 WBC (Bld) 1.8 % [facility] Erythrocyte distribution width (RBC) [Ratio] 13.2 % 11.5 - 15.0 % [facility] Hematocrit (Bld) [Volume fraction] 41.1 % 36.0 - 46.0 % [facility] Hemoglobin (Bld) [Mass/Vol] 13.4 g/dL 11.5 - 15.5 g/dL [facility] Immature granulocytes (Bld) [#/Vol] <0.10 k/uL [facility] Immature granulocytes/100 WBC (Bld) 0.1 % [facility] Lymphocytes (Bld) [#/Vol] 2.98 10*3/uL 1.00 - 4.00 k/uL [facility] Lymphocytes/100 WBC (Bld) 39.3 % [facility] MCH (RBC) [Entitic mass] 30.6 pg 26.0 - 34.0 pg [facility] MCHC (RBC) [Mass/Vol] 32.6 g/dL 30.5 - 36.0 g/dL [facility] MCV (RBC) [Entitic vol] 93.8 fL 80.0 - 100.0 fL [facility] Monocytes (Bld) [#/Vol] 0.73 10*3/uL <0.87 k/uL [facility] Monocytes/100 WBC (Bld) 9.6 % [facility] Neutrophils (Bld) [#/Vol] 3.67 10*3/uL 1.45 - 7.50 k/uL [facility] Neutrophils/100 WBC (Bld) 48.4 % [facility] Nucleated RBC (Bld) [#/Vol] <0.01 k/uL [facility] Nucleated RBC/100 WBC (Bld) [Ratio] 0.0 /100 WBC [facility] Platelet mean volume (Bld) [Entitic vol] 10.0 fL 9.0 - 12.7 fL [facility] Platelets (Bld) [#/Vol] 342 10*3/uL 150 - 400 k/uL [facility] RBC (Bld) [#/Vol] 4.38 10*6/uL 3.90 - 5.2 0 m/uL [facility] WBC (Bld) [#/Vol] 7.59 10*3/uL 3.70 - 11. 00 k/uL [facility] Comprehensive metabolic 2000 panelon 07-01-2023 Albumin [Mass/Vol] 4.0 g/dL 3.9 - 4.9 g/dL [facility] ALP [Catalytic activity/Vol] 49 U/L 34 - 123 U/L [facility] ALT [Catalytic activity/Vol] 11 U/L 7 - 38 U/L [facility] Anion gap [Moles/Vol] 11 mmol/L 9 - 18 mmol/L [facility] AST [Catalytic activity/Vol] 17 U/L 13 - 35 U/L [facility] Bilirubin [Mass/Vol] 0.2 mg/dL 0.2 - 1 .3 mg/dL [facility] Calcium [Mass/Vol] 9.3 mg/dL 8.5 - 10. 2 mg/dL [facility] Chloride [Moles/Vol] 108 mmol/L High 97 - 10 5 mmol/L [facility] [facility] CO2 [Moles/Vol] 21 mmol/L Low 22 - 30 mmol/L [facility] Creatinine [Mass/Vol] 0.67 mg/dL 0.58 - 0.96 mg/dL [facility] Estimated Glomerular Filtration Rate 116 mL/min/1.73m >=60 mL/min/1.73m [facility] Glucose [Mass/Vol] 88 mg/dL 74 - 99 mg/dL [facility] Potassium [Moles/Vol] 4.1 mmol/L 3.7 - 5.1 mmol/L [facility] Protein [Mass/Vol] 6.3 g/dL 6.3 - 8.0 g/dL [facility] Sodium [Moles/Vol] 140 mmol/L 136 - 144 mmol/L [facility] Urea nitrogen [Mass/Vol] 8 mg/dL 7 - 21 mg/dL [facility] HbA1c (Bld)on 07-01-2023 Average glucose Estimated from glycated hemoglobin (Bld) [Mass/Vol] 111 mg/dL [facility] HbA1c (Bld) [Mass fraction] 5.5 % 4.3 - 5.6 % [facility] Lipid 1996 panelon Cholesterol [Mass/Vol] 175 mg/dL <200 mg/dL [facility] Cholesterol in HDL [Mass/Vol] 33 mg/dL Low >39 mg/dL [facility] Cholesterol in LDL [Mass/Vol] 121 mg/dL High <100 mg/dL [facility] Cholesterol in LDL/Cholesterol in HDL [Mass ratio] 3.67 {ratio} High <2.54 [facility] Cholesterol in VLDL [Mass/Vol] 21 mg/dL <30 mg/dL [facility] Cholesterol non HDL [Mass/Vol] 142 mg/dL High <130 mg/dL [facility] Cholesterol.total/Cho lesterol in HDL [Mass ratio] 5.30 {ratio} High <5.10 [facility] Fasting Time 12 hrs [facility] Triglyceride [Mass/Vol] 106 mg/dL <150 mg/dL [facility] CNOVon 03-26-2023 CNOV Office Visit (DONNIE 4) -- DANE OLIVERA ([id number]) 1985 F Date Time Provider Department 03/26/23 2:00 PM JESESNIA GRACE4 During your visit today, we recorded [...] Former Packs/day: (more content not included)... Normal [facility] ANES POSTPROC EVALon 023 ANES POSTPROC EVAL HNO ID: [id number] Author: Tato Fierro MD Service: Anesthesiology Author Type: Physician Type: Anesthesia Postprocedure Evaluation Filed: 01/17/2023 11:21 AM Note Text: POST ANESTHESIA EVALUATION NOTE : 1985 Procedure Summary Date: 01/17/23 Room / Location: [facility] Anesthesia Start: 827 Anesthesia Stop: 899 Procedure: [...] January 17, 2023 TIME: 11:16 AM CSN: [id number] Normal [facility] ANES PRE-OPon 01-17-2023 ANES PRE-OP HNO ID: [id number] Author: Tato Fierro MD Service: Anesthesiology Author Type: Physician Type: Anesthesia Preprocedure Evaluation Filed: 01/17/2023 7:43 AM Note Text: ANESTHESIOLOGY DAY OF SURGERY NOTE : 1985 Procedure Information Date/Time: 01/17/23829 Scheduled providers: Jessenia Grace MD Procedure: EGD DIAGNOSTIC Location: [facility] Estimated body mass index is 36.09 kg/m? [...] cream by RECTAL route twice daily. - Uteovvoo-Es-Shz-Fe-FA tab Take 1 tablet by mouth once [...] January 17, 2023 TIME: 7:43 AM CSN: [id number] [facility] HCG ( test) Ql (U)o n 01-17-2023 Specific gravity (U) [Rel density] 1.023 Normal 1.006-1.029 [facility] Comment on above: Order Comment: Speci men Type: URINE SPECIMENOrdering Facility: [facility] Address: [address] [place] [address] Result Comment: If s pecific gravity is <1.005 then results may be falsely negative. Serum HCG is recommended. Performed By: #### 2 106-3 ####[facility]ORY[facility]IA [id number] [address] OF [facility] Specific gravity (U) [Rel density] 1.023 1.006 - 1.029 [facility] HCG Preg Ur Qlon 01-17-2023 HCG ( test) Ql (U) Negative Normal Negative [facility] Comment on above: Order Comment: Speci men Type: URINE SPECIMENOrdering Facility: [facility] Address: [address] [place] [address] Result Comment: This test is intended to aid in the early detection of . Very dilute urine samples, as indicated by a low specific gravity, may not contain career services representative levels of hCG. This test detects [...] for . Performed By: #### 2 106-3 ####[facility]ORY[facility]IA [id number] [address] [place] HCG QUAL URon 01-17-2023 HCG ( test) Ql (U) Negative Negative [facility] HISTORY PHYSICALon HISTORY PHYSICAL HNO ID: [id number] Author: Julio Dial APRN.ASSISTANT HEAD CASHIER Service: ? Author Type: Nurse Practitioner Type: [...] cream by RECTAL route twice daily. 01/10/2023 Wshhfbvd-Ay-Div-Fe-FA tab Take 1 tablet by mouth once [...] weeks. Cardiovascular (more content not included)... Normal [facility] OPERATIVE NOon 01-17-2023 OPERATIVE NO HNO ID: [id number] Author: Jessenia Grace MD Service: General Surgery Author Type: Physician Type: Operative Report Filed: 01/17/2023 8:56 AM Note Text: OPERATIVE/PROCEDURE REPORT LOG ID: [id number] Surgery/Procedure Date: Incision/Procedure Start Time: 8:42 AM Incision Close/Procedure End Time: 8:45 AM Surgeon(s)/Proceduralist(s ) and Wash Box Operator(s): Surgeon(s) and Role: * Jessenia Grace MD [...] 2023 TIME: 8:51 AM PAGER/CONTACT #: Normal [facility] SURGICAL PATHOLOGYon 023 CASE REPORT Normal [facility] Comment on above: Order Comment: Janis covington Type: TISSUE SPECIMENOrdering Facility: [facility] Address: [address] [place] [address] Result Comment: Surg [facility] Pathology Report Case: [id number] Authorizing Provider: Jessenia Grace MD Collected: 01/17/2023 08:42 AM Ordering Location: [facility] Received: 01/17/2023 10:26 AM Pathologist: Brenton Jones MD Specimen: ANTRUM (STOMACH) BIOPSY Performed By: #### S ####[facility]ORYCLIA [id number] [address] FINAL DIAGNOSIS Normal [facility] Comment on above: Order Comment: Janis covington Type: TISSUE SPECIMENOrdering Facility: [facility] Address: [address] [place], [place] [id number] Result Comment: [place], antrum, biopsy: - Mild reactive gastropathy. No morphologic evidence of Helicobacter pylori. Performed By: #### S ####[facility]ORYCLIA [id number] [address] FINAL PERFORMING LAB Normal [facility] Comment on above: Order Comment: Speci men Type: TISSUE SPECIMENOrdering Facility: [facility] Address: [address] [address] Result Comment: Diag nostic interpretation performed at [facility], [address] [place] [address] CLIA# [id number] Intelligence Analyst: Tato Daly M.D. Performed By: #### S ####[facility]ORYCLIA [id number] [address] GROSS DESCRIPTION Normal [facility] Comment on above: Order Comment: Speci nadya Type: TISSUE SPECIMENOrdering Facility: [facility] Address: [address] [place] [address] Result Comment: A. A NTRUM (STOMACH) BIOPSY Received in formalin labeled antrum (stomach) biopsy are multiple pieces of schmidt, soft tissue aggregating to 0.7 x 0.3 x 0.2 cm. Totally submitted in one cassette. Gross examination performed at [facility], [address] [place] [address] CLIA# [id number] RSA January 17, 2023 1:29 PM Performed By: #### S ####[facility]ORYCLIA [id number] [address] CNOVon 01-01-2023 CNOV Office Visit (DONNIE 4) -- DANE OLIVERA ([id number]) 1985 F Date Time Provider Department 01/01/23 2:30 PM JESSENIA GRAEC During your visit today, we recorded the [...] Take 1 capsule by mouth once daily. Erypeajt-Uj-Ich-Fe-FA tab Take 1 tablet by mouth once daily. (Patient not ta (more content not included)... Normal [facility] CNPNon 01-01-2023 CNPN Telephone (AGGENS4) -- DANE OLIVERA ([id number]) 1985 F Date Time Provider Department 01/01/23 [...] 1 capsule by mouth once daily. - Pptsvuzg-Qv-Zou-Fe-FA tab Take 1 tablet by mouth once [...] Status:Closed by ESE CONTRERAS on 01/01/23 Normal [facility] Office Visit (Urgent Care)on 12-25-2022 Follow-up visit Diagnoses/Problems Assessed URI, acute (465.9) (J06.9) Orders URI, acute Start: Azithromycin 250 MG Oral Tablet (Zithromax Z-Hu); TAKE 2 TABLETS ON DAY 1 THEN TAKE 1 TABLET A DAY FOR 4 DAYS Rx By: Juan Larson; Dispense: 0 Days ; #:1 X 6 Tablet Pack; Refill: 0;For: URI, acute; THEA = N; Sent To: [facility]/PHARMACY #4800 Start: methylPREDNISolone 4 MG Oral Tablet Therapy Pack (Medrol); Take as directed Rx By: Juan Larson; Dispense: 0 Days ; #:1 X 21 Tablet Pack; Refill: 0;For: URI, acute; THEA = N; Sent To: [facility]/PHARMACY #4800 Patient Discussion/Summary Bronchitis for sinusitis Start [...] pain nausea or vomiting. Patient has used dzff-oum-bpvqwxb cough and cold remedies with only minimal [...] clubbing Signatures Electronically signed by : Juan Larson APRN-TIMBO; Dec 25 2022 9:54AM EST (Author) Normal [facility] OBSTETRIC ULTRASOUND WHIon 1 10-31-2021 [facility] UA DIP, URINE (POC)on 2021 BILIRUBIN UA (POCT) Negative Negative [facility] CLARITY UA (POCT) Clear [facility] COLOR UA (POCT) Yellow [facility] GLUCOSE UA (POCT) Negative Negative mg/dL [facility] HEMOGLOBIN/BLOOD UA (POCT) Negative Negative [facility] KETONE UA (POCT) Negative Negative mg/dL [facility] LEUKOCYTES UA (POCT) Large Abnormal Negative [facility] NITRITE UA (POCT) Negative Negative [facility] PH UA (POCT) 7.0 4.5 - 8.0 [facility] Protein Ql (U) Negative Negative mg/dL [facility] SPECIFIC GRAVITY UA (POCT) 1.020 1.005 - 1.030 [facility] UROBILINOGEN UA (POCT) 0.2 E.U./dL Normal E.U./dL [facility] UA DIP, URINE (POC)on 2021 BILIRUBIN UA (POCT) Negative Negative [facility] CLARITY UA (POCT) Clear [facility] COLOR UA (POCT) Yellow [facility] GLUCOSE UA (POCT) Negative Negative mg/dL [facility] HEMOGLOBIN/BLOOD UA (POCT) Negative Negative [facility] KETONE UA (POCT) 15 mg/dL Abnormal Negative mg/dL [facility] LEUKOCYTES UA (POCT) Negative Negative [facility] NITRITE UA (POCT) Negative Negative [facility] PH UA (POCT) 7.5 4.5 - 8.0 [facility] Protein Ql (U) Negative Negative mg/dL [facility] SPECIFIC GRAVITY UA (POCT) 1.020 1.005 - 1.030 [facility] UROBILINOGEN UA (POCT) 1.0 E.U./dL Normal E.U./dL [facility] UA DIP, URINE (POC)on 2021 BILIRUBIN UA (POCT) Negative Negative [facility] CLARITY UA (POCT) Clear [facility] COLOR UA (POCT) Yellow [facility] GLUCOSE UA (POCT) Negative Negative mg/dL [facility] HEMOGLOBIN/BLOOD UA (POCT) Negative Negative [facility] KETONE UA (POCT) Negative Negative mg/dL [facility] LEUKOCYTES UA (POCT) Small Abnormal Negative [facility] NITRITE UA (POCT) Negative Negative [facility] PH UA (POCT) 7.0 4.5 - 8.0 [facility] Protein Ql (U) Trace Abnormal Negative mg/dL [facility] SPECIFIC GRAVITY UA (POCT) 1.020 1.005 - 1.030 [facility] UROBILINOGEN UA (POCT) 0.2 E.U./dL Normal E.U./dL [facility] OBSTETRIC ULTRASOUND WHIon 1 09-18-2021 [facility] UA DIP, URINE (POC)on 2021 BILIRUBIN UA (POCT) Negative Negative [facility] CLARITY UA (POCT) [facility] COLOR UA (POCT) Yellow [facility] GLUCOSE UA (POCT) Negative Negative mg/dL [facility] HEMOGLOBIN/BLOOD UA (POCT) Negative Negative [facility] KETONE UA (POCT) Negative Negative mg/dL [facility] LEUKOCYTES UA (POCT) Small Abnormal Negative [facility] NITRITE UA (POCT) Negative Negative [facility] PH UA (POCT) 7.5 4.5 - 8.0 [facility] Protein Ql (U) Negative Negative mg/dL [facility] SPECIFIC GRAVITY UA (POCT) 1.020 1.005 - 1.030 [facility] UROBILINOGEN UA (POCT) 0.2 E.U./dL Normal E.U./dL [facility] UA DIP, URINE (POC)on 2021 BILIRUBIN UA (POCT) Negative Negative [facility] CLARITY UA (POCT) Clear [facility] COLOR UA (POCT) Yellow [facility] GLUCOSE UA (POCT) Negative Negative mg/dL [facility] HEMOGLOBIN/BLOOD UA (POCT) Negative Negative [facility] KETONE UA (POCT) Trace Negative mg/dL [facility] LEUKOCYTES UA (POCT) Small Abnormal Negative [facility] NITRITE UA (POCT) Negative Negative [facility] PH UA (POCT) 7.0 4.5 - 8.0 [facility] Protein Ql (U) Negative Negative mg/dL [facility] SPECIFIC GRAVITY UA (POCT) 1.025 1.005 - 1.030 [facility] UROBILINOGEN UA (POCT) 0.2 E.U./dL Normal E.U./dL [facility] UA DIP, URINE (POC)on 2021 BILIRUBIN UA (POCT) Negative Negative [facility] CLARITY UA (POCT) Clear [facility] COLOR UA (POCT) Yellow [facility] GLUCOSE UA (POCT) Negative Negative mg/dL [facility] HEMOGLOBIN/BLOOD UA (POCT) Negative Negative [facility] KETONE UA (POCT) Negative Negative mg/dL [facility] LEUKOCYTES UA (POCT) Small Abnormal Negative [facility] NITRITE UA (POCT) Negative Negative [facility] PH UA (POCT) 8.0 4.5 - 8.0 [facility] Protein Ql (U) Negative Negative mg/dL [facility] SPECIFIC GRAVITY UA (POCT) 1.020 1.005 - 1.030 [facility] UROBILINOGEN UA (POCT) 0.2 E.U./dL Normal E.U./dL [facility] UA DIP, URINE (POC)on 2021 BILIRUBIN UA (POCT) Negative Negative [facility] CLARITY UA (POCT) Clear [facility] COLOR UA (POCT) Yellow [facility] GLUCOSE UA (POCT) Negative Negative mg/dL [facility] HEMOGLOBIN/BLOOD UA (POCT) Negative Negative [facility] KETONE UA (POCT) Trace Negative mg/dL [facility] LEUKOCYTES UA (POCT) Small Abnormal Negative [facility] NITRITE UA (POCT) Negative Negative [facility] PH UA (POCT) 7.0 4.5 - 8.0 [facility] Protein Ql (U) 30 mg/dL Abnormal Negative mg/dL [facility] SPECIFIC GRAVITY UA (POCT) 1.020 1.005 - 1.030 [facility] UROBILINOGEN UA (POCT) 0.2 E.U./dL Normal E.U./dL [facility] CBC panel Auto (Bld)on 02-14 Erythrocyte distribution width (RBC) [Ratio] 13.1 % 11.5 - 15.0 % [facility] Hematocrit (Bld) [Volume fraction] 38.1 % 36.0 - 46.0 % [facility] Hemoglobin (Bld) [Mass/Vol] 12.6 g/dL 11.5 - 15.5 g/dL [facility] MCH (RBC) [Entitic mass] 30.5 pg 26.0 - 34.0 pg [facility] MCHC (RBC) [Mass/Vol] 33.1 g/dL 30.5 - 36.0 g/dL [facility] MCV (RBC) [Entitic vol] 92.3 fL 80.0 - 100.0 fL [facility] Nucleated RBC (Bld) [#/Vol] 10*3/uL <0.01 k/uL [facility] Platelet mean volume (Bld) [Entitic vol] 9.6 fL 9.0 - 12.7 fL [facility] Platelets (Bld) [#/Vol] 353 10*3/uL 150 - 400 k/uL [facility] RBC (Bld) [#/Vol] 4.13 10*6/uL 3.90 - 5.2 0 m/uL [facility] WBC (Bld) [#/Vol] 11.89 10*3/uL High 3.70 - 11 .00 k/uL [facility] TYPE AND SCREENon 02-14-2022 ABO O [facility] HIstorical Ab Scr Status Negative [facility] Rh Nom (Bld) Positive [facility] Type and Screen Expiration 02/17/2022 23:59 [facility] UA DIP, URINE (POC)on 2021 BILIRUBIN UA (POCT) Negative Negative [facility] CLARITY UA (POCT) Clear [facility] COLOR UA (POCT) Yellow [facility] GLUCOSE UA (POCT) Negative Negative mg/dL [facility] HEMOGLOBIN/BLOOD UA (POCT) Negative Negative [facility] KETONE UA (POCT) Negative Negative mg/dL [facility] LEUKOCYTES UA (POCT) Negative Negative [facility] NITRITE UA (POCT) Negative Negative [facility] PH UA (POCT) 7.0 4.5 - 8.0 [facility] Protein Ql (U) Negative Negative mg/dL [facility] SPECIFIC GRAVITY UA (POCT) 1.025 1.005 - 1.030 [facility] UROBILINOGEN UA (POCT) 0.2 E.U./dL Normal E.U./dL [facility] Office Visit (Urgent Care)on 01-23-2022 Follow-up visit [...] Capsule Vitals Vital Signs Recorded: 23Jan2022 10:07AM Rswrysbbjnr20.6 F, Temporal Heart Yeue983 Ekahxjcy445 Pvmuylvku78 Height5 ft 3 in Nummli766 lb 4 oz BMI Lbrjtdpwie57.72 kg/m2 BSA Calculated2.03 O2 Jupwmlyqth19 Physical Exam Vitals signs and nursing notes [...] Jan 23 2022 10:16AM EST (Author) Normal [facility] ED Provider Noteon ED Provider Note [facility] EMERGENCY DEPARTMENT ENCOUNTER Pt Name: [...] patient come from an ECF, SNF, Rehab, Mcc or other Congregate setting: No no no [...] Gatherings with Friends and Family: ? Attends Uatsdin Services: ? Active Member of Clubs or [...] erythema prese (more content not included)... Normal [facility] CULTURE URINEon 12-25-2020 CULTURE URINE CULTURE URINE --> St atus: F Normal urogenital gregory present. Normal [facility] Comment on above: Performed By: #### C /UR ####[facility] [address] [place] [address] ABO Rh Blood Typeon 12-25-19 21 ABO and Rh group Nom (Bld) ABO Group: O Rh, Gel: POS Normal [facility] Comment on above: Performed By: #### A TY ####[facility] Basic Metabolic Panelon 04- Calcium [Mass/Vol] 9.4 mg/dL Normal 8.4-10.4 [facility] Comment on above: Performed By: #### B MP3, QWNT4, TROPN, LIPA4, HEMDF, LFT3 #### [address] [place], [place] Glucose [Mass/Vol] 87 mg/dL Normal 70-100 [facility] Comment on above: Performed By: #### B MP3, QWNT4, TROPN, LIPA4, HEMDF, LFT3 #### [address] [place], [place] Urea nitrogen [Mass/Vol] 13 mg/dL Normal 7-20 [facility] Comment on above: Performed By: #### B MP3, QWNT4, TROPN, LIPA4, HEMDF, LFT3 #### [address] [place], [place] Anion gap [Moles/Vol] 8 mmol/L Normal 3-13 [facility] Comment on above: Performed By: #### B MP3, QWNT4, TROPN, LIPA4, HEMDF, LFT3 #### [address] [place], [place] CO2 [Moles/Vol] 25 mmol/L Normal 22-30 [facility] Comment on above: Performed By: #### B MP3, QWNT4, TROPN, LIPA4, HEMDF, LFT3 #### [address] [place], [place] Creatinine [Mass/Vol] 0.62 mg/dL Normal 0.52-1.25 [facility] Comment on above: Performed By: #### B MP3, QWNT4, TROPN, LIPA4, HEMDF, LFT3 #### [address] [place], [place] eGFR OTHER > 90.0 Normal >60 [facility] Comment on above: Result Comment: KDIG [...] MP3, QWNT4, TROPN, LIPA4, HEMDF, LFT3 #### [address] GFR/1.73 sq M.predicted among blacks MDRD (S/P/Bld) [Vol rate/Area] mL/min/{1.73_m2} Normal >60 [facility] Comment on above: Performed By: #### B MP3, QWNT4, TROPN, LIPA4, HEMDF, LFT3 #### [address] Chloride [Moles/Vol] 105 mmol/L Normal 98-107 [facility] Comment on above: Performed By: #### B MP3, QWNT4, TROPN, LIPA4, HEMDF, LFT3 #### [address] Potassium [Moles/Vol] 3.9 mmol/L Normal 3.5-5.1 [facility] Comment on above: Performed By: #### B MP3, QWNT4, TROPN, LIPA4, HEMDF, LFT3 #### [address] Sodium [Moles/Vol] 138 mmol/L Normal 135-145 [facility] Comment on above: Performed By: #### B MP3, QWNT4, TROPN, LIPA4, HEMDF, LFT3 #### [address] [place], [place] Complete Urinalysison 2020 Appearance (U) Clear Normal Clear [facility] Comment on above: Result Comment: . Performed By: #### C UA2 ####[facility] [id number] [place], [place] Bacteria Moderate Abnormal Negative [facility] Comment on above: Result Comment: . Performed By: #### C UA2 ####[facility] [address] [place], [place] Bilirubin,Urine Negative Normal Negative [facility] Comment on above: Result Comment: . Performed By: #### C UA2 ####[address] [place], [place] Cast, Hyaline Negative Normal Negative [facility] System Comment on above: Result Comment: . Performed By: #### C UA2 ####[address] [place], [place] Color (U) Light-Yellow Normal Lt. Yellow [facility] Comment on above: Result Comment: . Performed By: #### C UA2 ####[facility] [id number] [place], [place] Glucose Ql (U) Normal Normal Normal (<70) [facility] Comment on above: Result Comment: . Performed By: #### C UA2 ####[facility] [address] [place], [place] Ketone,Urine Negative Normal Negative [facility] System Comment on above: Result Comment: . Performed By: #### C UA2 ####[facility] [address] [place], [place] Leukocytes,Urine 250 Brionna/uL Abnormal Negative [facility] Comment on above: Result Comment: . Performed By: #### C UA2 ####[facility] [id number] [place], [place] Mucous Threads Few Normal Negative [facility] System Comment on above: Result Comment: . Performed By: #### C UA2 ####[facility] [id number] [place], [place] Nitrites,Urine Negative Normal Negative [facility] Comment on above: Result Comment: . Performed By: #### C UA2 ####[id number] [place], [place] Occult Blood,Urine 0.2 mg/dL Abnormal Negative [facility] Comment on above: Result Comment: . Performed By: #### C UA2 ####[address] pH,Urine 6.0 Normal 5.0-8.0 [facility] Comment on above: Result Comment: . Performed By: #### C UA2 ####[address] RBC, Urine 0 - 2 Normal 0-2 [facility] Comment on above: Result Comment: . Performed By: #### C UA2 ####[address] Specific [place],Urine 1.014 Normal 1.005 - 1.030 [facility] Comment on above: Result Comment: . Performed By: #### C UA2 ####[address] Squamous Epithelial 6 - 10 Abnormal 3-5 [facility] Comment on above: Result Comment: . Performed By: #### C UA2 ####[address] Total Protein,Urine Negative Normal Negative [facility] Comment on above: Result Comment: . Performed By: #### C UA2 ####[address] [place], [place] Urobilinogen,Urine Normal Normal Normal (0-1) [facility] Comment on above: Result Comment: . Performed By: #### C UA2 ####[address] WBC, Urine 11 - 25 Abnormal 0-5 [facility] Comment on above: Result Comment: . Performed By: #### C UA2 ####[address] Hemogram w/ Autodiffon 12-24 Abs Baso Cnt 0.1 10*3/uL Normal 0.0-0.2 [facility] Comment on above: Performed By: #### B MP3, QWNT4, TROPN, LIPA4, HEMDF, LFT3 #### [address] [place], [place] Abs Neutrophile Cnt 7.6 10*3/uL High 1.8-7.0 [facility] Comment on above: Performed By: #### B MP3, QWNT4, TROPN, LIPA4, HEMDF, LFT3 #### [address] [place], [place] Basophils/100 WBC (Bld) 1.0 % Normal 0.0-2.0 [facility] Comment on above: Performed By: #### B MP3, QWNT4, TROPN, LIPA4, HEMDF, LFT3 #### [address] [place], [place] Eosinophils (Bld) [#/Vol] 0.2 10*3/uL Normal 0.0-0.5 [facility] [facility] Comment on above: Performed By: #### B MP3, QWNT4, TROPN, LIPA4, HEMDF, LFT3 #### [place] [address] [place], [place] Eosinophils/100 WBC (Bld) 1.8 % Normal 1.0-6.0 [facility] Comment on above: Performed By: #### B MP3, QWNT4, TROPN, LIPA4, HEMDF, LFT3 #### [address] Erythrocyte distribution width (RBC) [Ratio] 13.4 % Normal 11.5-14.5 [facility] Comment on above: Performed By: #### B MP3, QWNT4, TROPN, LIPA4, HEMDF, LFT3 #### [address] Granulocytes/100 WBC (Bld) 56.8 % Normal 40.0-80.0 [facility] Comment on above: Performed By: #### B MP3, QWNT4, TROPN, LIPA4, HEMDF, LFT3 #### [address] Hematocrit (Bld) [Volume fraction] 37.0 % Normal 35.0-47.0 [facility] Comment on above: Performed By: #### B MP3, QWNT4, TROPN, LIPA4, HEMDF, LFT3 #### [address] Hemoglobin (Bld) [Mass/Vol] 12.3 g/dL Normal 11.7-16.0 [facility] Comment on above: Performed By: #### B MP3, QWNT4, TROPN, LIPA4, HEMDF, LFT3 #### [address] Lymphocytes (Bld) [#/Vol] 4.5 10*3/uL High 1.0-4.3 [facility] Comment on above: Performed By: #### B MP3, QWNT4, TROPN, LIPA4, HEMDF, LFT3 #### [address] Lymphocytes/100 WBC (Bld) 33.1 % Normal 20.0-40.0 [facility] Comment on above: Performed By: #### B MP3, QWNT4, TROPN, LIPA4, HEMDF, LFT3 #### [address] MCH (RBC) [Entitic mass] 31.1 pg Normal 26.0-34.0 [facility] Comment on above: Performed By: #### B MP3, QWNT4, TROPN, LIPA4, HEMDF, LFT3 #### [address] MCHC 33.2 % Normal 32.0-36.0 [facility] Comment on above: Performed By: #### B MP3, QWNT4, TROPN, LIPA4, HEMDF, LFT3 #### [place] [address] [place], [place] MCV (RBC) [Entitic vol] 93.4 fL Normal 79.0-98.0 [facility] Comment on above: Performed By: #### B MP3, QWNT4, TROPN, LIPA4, HEMDF, LFT3 #### [place] [address] [place], [place] Monocytes (Bld) [#/Vol] 1.0 10*3/uL High 0.0-0.8 [facility] Comment on above: Performed By: #### B MP3, QWNT4, TROPN, LIPA4, HEMDF, LFT3 #### [place] [address] [place], [place] Monocytes/100 WBC (Bld) 7.3 % Normal 2.0-10.0 [facility] Comment on above: Performed By: #### B MP3, QWNT4, TROPN, LIPA4, HEMDF, LFT3 #### [place] [address] [place], [place] Platelet mean volume (Bld) [Entitic vol] 7.5 fL Normal 7.4-10.4 [facility] Comment on above: Performed By: #### B MP3, QWNT4, TROPN, LIPA4, HEMDF, LFT3 #### [place] [address] [place], [place] Platelets (Bld) [#/Vol] 349 10*3/uL Normal 140-440 [facility] Comment on above: Performed By: #### B MP3, QWNT4, TROPN, LIPA4, HEMDF, LFT3 #### [place] [address] [place], [place] RBC (Bld) [#/Vol] 3.96 10*6/uL Normal 3.80-5.20 [facility] Comment on above: Performed By: #### B MP3, QWNT4, TROPN, LIPA4, HEMDF, LFT3 #### [place] [address] [place] WBC (Bld) [#/Vol] 13.4 10*3/uL High 3.6-10.7 [facility] Comment on above: Performed By: #### B MP3, QWNT4, TROPN, LIPA4, HEMDF, LFT3 #### [place] [address] [place], [place] Hepatic Functionon 1 ALP [Catalytic activity/Vol] 64 U/L Normal 38-126 [facility] Comment on above: Performed By: #### B MP3, QWNT4, TROPN, LIPA4, HEMDF, LFT3 #### [place] [address] [place], [place] ALT [Catalytic activity/Vol] 20 U/L Normal 0-34 [facility] Comment on above: Result Comment: The ALT test is performed by an updated assay method. Please note that the reference intervals have been changed and are now sex specific. Performed By: #### B MP3, QWNT4, TROPN, LIPA4, HEMDF, LFT3 #### [place] [address] [place], [place] AST [Catalytic activity/Vol] 27 U/L Normal 15-46 [facility] Comment on above: Performed By: #### B MP3, QWNT4, TROPN, LIPA4, HEMDF, LFT3 #### [place] [address] [place], [place] Bilirubin [Mass/Vol] 0.3 mg/dL Normal 0.2-1.3 [facility] Comment on above: Performed By: #### B MP3, QWNT4, TROPN, LIPA4, HEMDF, LFT3 #### [place] [address] [place], [place] Bilirubin.indirect [Mass/Vol] 0.0 mg/dL Normal 0.0-0.3 [facility] Comment on above: Performed By: #### B MP3, QWNT4, TROPN, LIPA4, HEMDF, LFT3 #### [place] [place] [address] Protein [Mass/Vol] 7.4 g/dL Normal 6.3-8.2 [facility] Comment on above: Performed By: #### B MP3, QWNT4, TROPN, LIPA4, HEMDF, LFT3 #### [address] [address] Albumin [Mass/Vol] 4.4 g/dL Normal 3.5-5.0 [facility] Comment on above: Performed By: #### B MP3, QWNT4, TROPN, LIPA4, HEMDF, LFT3 #### [facility] [address] [place] [address] Lipaseon 12-24-2020 Lipase [Catalytic activity/Vol] 110 U/L Normal 23-300 [facility] Comment on above: Performed By: #### B MP3, QWNT4, TROPN, LIPA4, HEMDF, LFT3 #### [address] [address] Troponin Ion 12-24-2020 Troponin I.cardiac [Mass/Vol] ng/mL Normal 0.000-0.034 [facility] Comment on above: Result Comment: . Performed By: #### B MP3, QWNT4, TROPN, LIPA4, HEMDF, LFT3 #### [address] [address] Troponin x1on 12-24-2020 Troponin I.cardiac [Mass/Vol] ng/mL 0.000 - 0.034 ng/mL [facility] Work Phone: Comment on above: . Test Performed by [facility], [address] [place] [address] [facility] Work Phone: US ABDOMEN LIMITEDon 021 [place], [facility] Results From [facility] - 12/24/2020 12:55 AM EDT Patient Name: DANE OLIVERA Ultrasound ACCESSION EXAM DATE/TIME PROCEDURE ORDERING PROVIDER [id number] 12/24/2020 00:13 EDT US Abdomen Limited MD MILES SCOTT ALAN CPT code 91682 Reason For Exam (US Abdomen Limited) RUQ [...] Ultrasound ACCESSION EXAM DATE/TIME PROCEDURE ORDERING PROVIDER [id number] 12/24/2020 00:13 EDT US Abdomen Limited MD MILES SCOTT ALAN CPT code 68859 Reason For Exam (US Abdomen Limited) RUQ [...] d. Ultrasound Report Report Dictated on Workstation: [id number] --- Final --- Dictated: 12/24/2020 0:51 am Dictating Physician: MD MAHONEY WILLIAM Signed Date and Time: 12/24/2020 0:54 am Signed by: MD MAHONEY WILLIAM Transcribed Date and Time: 12/24/2020 0:51 [facility] Work Phone: US Abdomen Limitedon 021 US Abdomen Limited Patient Name: DANE AQUINO Ultrasound ACCESSION EXAM DATE/TIME PROCEDURE ORDERING PROVIDER [id number] 12/24/2020 00:13 EDT US Abdomen Limited MD MILES SCOTT ALAN CPT code 14966 Reason For Exam (US Abdomen Limited) RUQ [...] Transcribed Date and Time: 12/24/2020 0:51 Normal [facility] US OB TRANSVAGINALon 021 [id number] Ultrasound ACCESSION EXAM DATE/TIME PROCEDURE ORDERING PROVIDER [id number] 12/24/2020 00:08 EDT [place] [id number] -REYNALDO MANDEL Transvaginal CPT code 89407 Reason For Exam (US Transvaginal) , abdominal [...] Phone: [place], [facility] 12:55 AM EDT Patient Name: DANE OLIVERA Ultrasound ACCESSION EXAM DATE/TIME PROCEDURE ORDERING PROVIDER [id number] 12/24/2020 00:08 EDT [place] [id number] -REYNALDO MANDEL Transvaginal CPT code 06967 Reason For Exam (US Transvaginal) , abdominal [...] Ultrasound ACCESSION EXAM DATE/TIME PROCEDURE ORDERING PROVIDER [id number] 12/24/2020 00:08 EDT [place] [id number] -REYNALDO MANDEL Transvaginal CPT code 79152 Reason For Exam (US Transvaginal) , abdominal [...] Transcribed Date and Time: 12/24/2020 0:51 Normal [facility] hCG Quantitativeon hCG Quantitative 8098 m[IU]/mL Abnormal [facility] Comment on above: Result Comment: Fema [...] MP3, QWNT4, TROPN, LIPA4, HEMDF, LFT3 #### [facility] [employer] [address] [place] [id number] ABO/RHon 12-23-2020 Sodium [Moles/Vol] O [facility] Work Phone: Sodium [Moles/Vol] Positive [facility] Work Phone: Test Performed by [facility], [facility] [place] [address] [facility] Work Phone: Basic Metabolic Panelon 04- Anion gap [Moles/Vol] 8 mmol/L 3 - 13 mmol/L [facility] Work Phone: Calcium [Mass/Vol] 9.4 mg/dL 8.4 - 10. 4 mg/dL [facility] Work Phone: [phone] Chloride [Moles/Vol] 105 mmol/L 98 - 10 7 mmol/L [facility] Work Phone: [phone] CO2 [Moles/Vol] 25 mmol/L 22 - 30 mmol/L [facility] Work Phone: [phone] Creatinine [Mass/Vol] 0.62 mg/dL 0.52 - 1.25 mg/dL [facility] Work Phone: EGFR IF NonAfrican Tuvaluan >90.0 >60 mL/min [facility] Work Phone: Comment [...] [Moles/Vol] 138 mmol/L 135 - 145 mmol/L [facility] Work Phone: Urea nitrogen (BldV) [Mass/Vol] 13 mg/dL 7 - 20 mg/dL [facility] Work Phone: ED Provider Noteon 1 ED Provider Note Emergency Department Encounter [facility] Patient: Dane Olivera : 1985 [...] ventricular rate of 71 beats per him. PA, QRS, QTc within normal is. Normal axis. [...] 12/25/20 1250 Kenny Miles MD 12/25/20 1251 [facility] ED Provider Note [facility] EMERGENCY DEPARTMENT ENCOUNTER Pt Name: Dane MCELROYN: [id number] Birthdate 1985 Date of evaluation: 12/23/2020 Provider: [...] patient come from an ECF, SNF, Rehab, M[facility] or other Congregate setting: no (If yes [...] on phone: None Gets together: None Attends worship service: None Active member of club or [...] abdominal t (more content not included)... Normal [facility], [facility]ANTITAT[facility], on 12-23-2020 hCG Quant 8098 m[IU]/mL Abnormal [employer] Work Phone: Comment on above: Females < [...] Interpretation and review of laboratory results Abnormal [employer] Work Phone: Test Performed by [facility], [address] [place] [address] [employer] Work Phone: Hemogram (CBC) w/Auto Diffon 12-23-2020 Absolute Baso # 0.1 10*3/uL 0.0 - 0.2 10*3/uL [employer] Work Phone: [phone] Absolute Neut # 7.6 10*3/uL High 1.8 - 7.0 10*3/uL [employer] Work Phone: Basophils/100 WBC (Bld) 1.0 % [...] (Stl) 12.3 g/dL 11.7 - 16.0 g/dL [email or web address] Work Phone: [phone] Interpretation and review of laboratory results Abnormal [email or web address] Work Phone: [phone] Lymphocytes (Bld) [#/Vol] 4.5 10*3/uL High 1.0 - 4.3 10*3/uL [facility] Work Phone: [phone] Lymphocytes/100 WBC (Bld) 33.1 % 20.0 - 40.0 % [email or web address] Work Phone: [phone] MCH (RBC) [Entitic [...] [Ratio] 13.4 % 11.5 - 14.5 % [email or web address] Work Phone: 1) Platelet mean volume (Bld) [Entitic vol] 7.5 fL 7.4 - 10.4 fL [email or web address] Work Phone: Platelets (Bld) [#/Vol] 349 10*3/uL 140 - 440 10*3/uL [email or web address] Work Phone: RBC (Bld) [#/Vol] 3.96 10*6/uL 3.80 - 5.2 0 10*6/uL [email or web address] Work Phone: WBC (Bld) [#/Vol] 13.4 10*3/uL High 3.6 - 10.7 10*3/uL [email or web address] Work Phone: Test Performed by [facility], [address] [place] [id number] [email or web address] Work Phone: Hepatic Function Panelon Albumin [Mass/Vol] 4.4 g/dL 3.5 - 5.0 g/dL [email or web address] Work Phone: ALP (Bld) [Catalytic activity/Vol] 64 U/L 38 - 126 U/L [email or web address] Work Phone: ALT [Catalytic activity/Vol] 20 U/L 0 - 34 U/L [employer] Work Phone: Comment on above: The ALT test is perf ormed by an updated assay method. Please note that the reference intervals have been changed and are now sex specific. AST [Catalytic activity/Vol] 27 U/L 15 - 46 U/L [email or web address] Work Phone: Bilirubin [Mass/Vol] 0.3 mg/dL 0.2 - 1 .3 mg/dL [email or web address] Work Phone: Bilirubin.direct [Mass/Vol] 0.0 mg/dL 0.0 - 0.3 mg/dL [email or web address] Work Phone: Free PSA/Prostate specific Ag.total [Mass fraction] 7.4 g/dL 6.3 - 8.2 g/dL [email or web address] Work Phone: Lipaseon 12-23-2020 Lipase [Catalytic activity/Vol] 110 U/L 23 - 300 U/L [facility] Work Phone: [phone] Otheron 12-23-2020 Test Performed by [facility], [address] [place] [address] [facility] Work Phone: [phone] Urinalysison 12-23-2020 Appearance (U) Clear Clear NA [email or web address] Work Phone: [phone] Comment on above: . Bacteria, UA Moderate Abnormal Negative /[HPF] [facility] Work Phone: [phone] Comment on above: . Bilirubin Urine Negative Negative mg/dL [facility] Work Phone: [phone] Comment on above: . Color (U) Light-Yellow Lt. Yellow NA [email or web address] Work Phone: [phone] Comment on above: . Glucose, Ur Normal Normal (<70) mg/dL [email or web address] Work Phone: [phone] Comment on above: . Hyaline Casts, UA Negative Negative /[LPF] [facility] Work Phone: [phone] Comment on above: . Interpretation and review of laboratory results Abnormal [email or web address] Work Phone: [phone] Ketones Ql (U) Negative Negative mg/dL [email or web address] Work Phone: [phone] Comment on above: . LEUKOCYTES, UA 250 Abnormal Negative Brionna/uL [facility] Work Phone: [phone] Comment on above: . Mucous Threads Few Negative /[LPF] [email or web address] Work Phone: [phone] Comment on above: . Nitrite, Urine Negative Negative NA [facility] Work Phone: [phone] Comment on above: . Occult Blood,Urine 0.2 mg/dL Abnormal Negative [email or web address] Work Phone: [phone] Comment on above: . pH (U) 6.0 [pH] [facility] Work Phone: [phone] Comment on above: . Protein (U) [Mass/Vol] Negative Negative mg/dL [email or web address] Work Phone: [phone] Comment on above: . RBC (U) [#/Vol] 0-2 0 - 2 /[HPF] [facility] Work Phone: Comment on above: . Specific [place], Urine 1.014 [facility] Work Phone: Comment on above: . Squam Epithel, UA 6-10 Abnormal 3 - 5 /[HPF] [facility] Work Phone: Comment on above: . Urobilinogen, Urine Normal Normal ( 0-1) mg/dL [facility] Work Phone: Comment on above: . WBC, UA 11-25 Abnormal 0 - 5 /[HPF] [facility] Work Phone: Comment on above: . Test Performed by [facility], [address] [place] [address] [facility] Work Phone: XR SHLDR >/=3V AP/NAZ [...] significant degenerative change. IMPRESSION: Unremarkable left shoulder. 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 Otheron 08-04-2019 Test Performed by [facility], [address] [place] [address] [facility], [place] Urinalysison 08-04-2019 Amphetamines Ql (U) Negative [facility] Benzodiazepines Ql (U) Negative [facility] Cocaine Ql (U) Negative [facility] Opiates Ql (U) Negative [facility] Buprenorphine Screenon 07-06 Buprenorphine Screen Negative Normal [facility] Comment on above: Result Comment: Bupr enorphine (Suboxone) has been screened for by immunoassay at 5 ng/mL threshold. The screening assay provides only a preliminary test result. A more specific alternative method must be used to confirm preliminary positive results. Performed By: #### I GN #### [place] [address] [facility], [place] Fentanyl Screen, Urineon Fentanyl Screen, Urn Negative Normal Negative [facility] Comment on above: Result Comment: Fent anyl has been screened for by Immunoassay at a 2ng/ml threshold. POSITIVE results are not confirmed by a more specific alternative method unless requested. If confirmation is needed, request confirmation under separate order. NOTE: These results are for medical treatment only. Analysis performed using non-forensic procedures. Performed By: #### I GN #### [facility] [address] [facility] [place] [facility] Screenon 2018 Amphetamines Ql (U) Negative [facility] Comment on above: Performed By: #### I GN #### [place] [address] [facility], [place] Barbiturates Negative Normal [facility] Comment on above: Performed By: #### I GN #### [place] [address] [facility], [place] Benzodiazepines Ql (U) Negative Normal [facility] Comment on above: Performed By: #### I GN #### [place] [address] [place], [place] Cocaine Metabolites Negative [facility] Comment on above: Performed By: #### I GN #### [facility] [address] [place], [place] Comment Normal [facility] Comment on above: Result Comment: The [...] procedures. Performed By: #### I GN #### [place] [address] [place], [place] Ethanol [Mass/Vol] Negative [facility] Comment on above: Performed By: #### I GN #### [place] [address] [place], [place] Opiates Ql (U) Negative [facility] Comment on above: Performed By: #### I GN #### [place] [address] [place], [place] Oxycodone Negative [facility] Comment on above: Performed By: #### I GN #### [place] [address] [place] THC Negative [facility] Comment on above: Performed By: #### I GN #### [place] [address] [place], [place] Metabolic Panelon 07-05-2019 Sodium [Moles/Vol] Negative [place], [place] Comment on above: Buprenorphine (Subox one) has been screened for by immunoassay at 5 ng/mL threshold. The screening assay provides only a preliminary test result. A more specific alternative method must be used to confirm preliminary positive results. Sodium [Moles/Vol] [place], [place] Comment on above: The following drugs [...] procedures. Otheron 07-05-2019 Fentanyl Negative Negative NA [place], [place] Comment on above: Fentanyl has been [...] performed using non-forensic procedures. Test Performed by [address] Test Performed by [place] [address] Urinalysison 07-05-2019 Amphetamines Ql (U) Negative [place], [place] Benzodiazepines Ql (U) Negative [place] Cocaine Ql (U) Negative [place] Opiates Ql (U) Negative [place] Buprenorphine Screenon 06-29 Buprenorphine Screen Negative Normal [facility] Comment on above: Result Comment: Bupr enorphine (Suboxone) has been screened for by immunoassay at 5 ng/mL threshold. The screening assay provides only a preliminary test result. A more specific alternative method must be used to confirm preliminary positive results. Performed By: #### I GN, FENTU, BUPR #### [place] [address] [place] [address] Fentanyl Screen, Urineon Fentanyl Screen, Urn Negative Normal Negative [facility] Comment on above: Result Comment: Fent anyl has been screened for by Immunoassay at a 2ng/ml threshold. POSITIVE results are not confirmed by a more specific alternative method unless requested. If confirmation is needed, request confirmation under separate order. NOTE: These results are for medical treatment only. Analysis performed using non-forensic procedures. Performed By: #### I GN #### [facility] [address] [place] [address] Fentanyl, Urineon 06-28-2019 Fentanyl Negative Negative NA [place], [place] Comment on above: Fentanyl has been sc reened for by Immunoassay at a 2ng/ml threshold. POSITIVE results are not confirmed by a more specific alternative method unless requested. If confirmation is needed, request confirmation under separate order. NOTE: These results are for medical treatment only. Analysis performed using non-forensic procedures. [place] [facility] Screenon 2018 Amphetamines Ql (U) Negative [place], [place] Benzodiazepines Ql (U) Negative [facility], [place] Cocaine Ql (U) Negative [facility] Opiates Ql (U) Negative [place], [place] Sodium [Moles/Vol] [place], [place] Comment on above: The following drugs [...] using non-forensic procedures. Amphetamines Ql (U) Negative [facility] Comment on above: Performed By: #### I GNSHAWU, BUPR #### [facility] [address] [place] [address] Barbiturates Negative Normal [facility] Comment on above: Performed By: #### I GN, FENTU, BUPR #### [facility] [address] [place], [place] Benzodiazepines Ql (U) Negative [facility] Comment on above: Performed By: #### I MICHAEL FENTU, BUPR #### [facility] [address] [place], [place] Cocaine Metabolites Negative [facility] Comment on above: Performed By: #### I GN FENTU, BUPR #### [facility] [address] [place], [place] Comment Normal [facility] Comment on above: Result Comment: The [...] By: #### I MICHAEL FENTU, BUPR #### [place] [address] [place], [place] Ethanol [Mass/Vol] Negative [facility] Comment on above: Performed By: #### I GN, FENTU, BUPR #### [facility] [address] [place], [place] Opiates Ql (U) Negative [facility] Comment on above: Performed By: #### I GN, FENTU, BUPR #### [facility] [address] [place], [place] Oxycodone Negative [facility] Comment on above: Performed By: #### I GN, FENTU, BUPR #### [facility] [address] [place] THC Negative [facility] Comment on above: Performed By: #### I GN, FENTU, BUPR #### [facility] [address] [place], [place] Metabolic Panelon 06-28-2019 Sodium [Moles/Vol] Negative [place], [place] Comment on above: Buprenorphine (Subox one) has been screened for by immunoassay at 5 ng/mL threshold. The screening assay provides only a preliminary test result. A more specific alternative method must be used to confirm preliminary positive results. Otheron 06-28-2019 Test Performed by [facility], [address] [facility] [place] [address] [place], [place] [facility] Screenon 2018 Amphetamines Ql (U) Negative [facility] Comment on above: Performed By: #### I GN #### [place] [address] [place], [place] Barbiturates Negative [facility] Comment on above: Performed By: #### I GN #### [place] [address] [place] Benzodiazepines Ql (U) Negative [facility] Comment on above: Performed By: #### I GN #### [place] [address] [place] Cocaine Metabolites Negative [facility] Comment on above: Performed By: #### I GN #### [place] [address] [place] Comment [facility] Comment on above: Result Comment: [...] procedures. Performed By: #### I GN #### [facility] [address] [place], [place] Ethanol [Mass/Vol] Negative [facility] Comment on above: Performed By: #### I GN #### [facility] [address] [facility], [place] Opiates Ql (U) Negative [facility] Comment on above: Performed By: #### I GN #### [facility] [address] [facility] [place] Oxycodone Negative [facility] [facility] Comment on above: Performed By: #### I GN #### [facility] [address] [facility], [place] THC Negative [facility] Comment on above: Performed By: #### I GN #### [facility] [address] [facility], [place] [facility] Screenon 2018 Amphetamines Ql (U) Negative [facility], [place] Benzodiazepines Ql (U) Negative [facility], [place] Cocaine Ql (U) Negative [facility], [place] Opiates Ql (U) Negative [place], [place] Sodium [Moles/Vol] [place], [place] Comment on above: The following drugs [...] performed using non-forensic procedures. Test Performed by [facility], [address] [place] [place] [address] [place], [place] Amphetamines Ql (U) Negative [facility] Comment on above: Performed By: #### I GN #### [facility] [address] [facility], [place] Barbiturates Negative [facility] Comment on above: Performed By: #### I GN #### [place] [address] [facility], [place] Benzodiazepines Ql (U) Negative [facility] Comment on above: Performed By: #### I GN #### [facility] [address] [place], [place] Cocaine Metabolites Negative [facility] Comment on above: Performed By: #### I GN #### [facility] [address] [place], [place] Comment [facility] Comment on above: Result Comment: [...] procedures. Performed By: #### I GN #### [facility] [address] [place], [place] Ethanol [Mass/Vol] Negative [facility] Comment on above: Performed By: #### I GN #### [place] [address] [place], [place] Opiates Ql (U) Negative [facility] Comment on above: Performed By: #### I GN #### [place] [address] [place], [place] Oxycodone Negative [facility] Comment on above: Performed By: #### I GN #### [place] [address] [place], [place] THC Negative [facility] Comment on above: Performed By: #### I GN #### [place] [address] [place], [place] Metabolic Panelon 06-16-2019 Sodium [Moles/Vol] Negative [facility], [place] Buprenorphine Screenon 06-08 Buprenorphine Screen Negative [facility] Comment on above: Result Comment: Bupr enorphine (Suboxone) has been screened for by immunoassay at 5 ng/mL threshold. The screening assay provides only a preliminary test result. A more specific alternative method must be used to confirm preliminary positive results. Performed By: #### F ENTU, BUPR, IGN #### [place] [address] [place], [place] Fentanyl Screen, Urineon Fentanyl Screen, Urn Negative Normal [facility] Comment on above: Result Comment: Fent anyl has been screened for by Immunoassay at a 2ng/ml threshold. POSITIVE results are not confirmed by a more specific alternative method unless requested. If confirmation is needed, request confirmation under separate order. NOTE: These results are for medical treatment only. Analysis performed using non-forensic procedures. Performed By: #### F ENTU, BUPR, IGN #### [place] [address] [place], [place] [facility] Screen[facility] 2018 Amphetamines Ql (U) Negative [facility] Comment on above: Performed By: #### F ENTU, BUPR, IGN #### [place] [address] [address] [place], [place] Barbiturates Negative [facility] Comment on above: Performed By: #### F ENTU, BUPR, IGN #### [place] [address] [place], [place] Benzodiazepines Ql (U) Negative [facility] Comment on above: Performed By: #### F ENTU, BUPR, IGN #### [place] [address] [place], [place] Cocaine Metabolites Negative [facility] Comment on above: Performed By: #### F ENTU, BUPR, IGN #### [place] [address] [address] [place], [place] Comment [facility] Comment on above: Result Comment: [...] By: #### F ENTU, BUPR, IGN #### [place] [address] [address] [place], [place] Ethanol [Mass/Vol] Negative [facility] Comment on above: Performed By: #### F ENTU, BUPR, IGN #### [place] [address] [place] Opiates Ql (U) Negative [facility] Comment on above: Performed By: #### F ENTU, BUPR, IGN #### [place] [address] [place], [place] Oxycodone Negative [facility] Comment on above: Performed By: #### F ENTU, BUPR, IGN #### [place] [address] [place], [place] THC Negative [facility] Comment on above: Performed By: #### F ENTU, BUPR, IGN #### [place] [address] [address] [place], [place] Cardiacon 06-01-2019 Cholesterol [Mass/Vol] 195 mg/dL <200 [facility] [employer] Cholesterol in HDL [Mass/Vol] 26 mg/dL Low 40 - 60 mg/dL [facility] [employer] [place], [place] Cholesterol in LDL [Mass/Vol] 129 mg/dL Abnormal <100 [facility] [employer] Triglyceride [Mass/Vol] 199 mg/dL Abnormal <150 [facility] [employer] Metabolic Panelon 06-01-2019 HbA1c (Bld) [Mass fraction] 5.8 % High 4 - 5.7 % [facility] [employer] [place] Comment on above: --HgbA1C levels may not be accurate in patients who have renal disease, received recent blood transfusions, are anemic, or who have dyshemoglobinemia. Otheron 06-01-2019 eAG 120 mg/dL [facility] [employer]W [employer], [employer] Interpretation and review of laboratory results Abnormal [facility] [employer] Test Performed by [facility], [address] [place] [address] [facility], [place] Test Performed by [employer] [facility], [address] [place] [address] [facility], [place] Cholesterol.total/Cho lesterol in HDL [Mass ratio] 8 {ratio} [place], [place] Comment on above: Ref Range: < 3 Low Risk for CHD 3-6 Mod Risk for CHD > 6 High Risk for CHD Ref Range: < 3 Low Risk for CHD 3-6 Mod Risk for CHD > 6 High Risk for CHD Interpretation and review of laboratory results Abnormal [place], [place] Test Performed by [employer] [facility], [address] [place] [address] [facility], [place] Test Performed by [employer] [facility], [address] [place] [address] [facility], [place] Otheron 05-30-2019 [place], [facility] Incoming Cardiology Results From [facility] - 05/30/2019 5:51 PM EDT [facility] Test Date: 2019-05-28 Pat Name: Dane Blake Department: [facility] Room: 36 Gender: F Director Biology: CHRISTOPHER : 1985 Requested By: Order Number: [id number] Reading MD: Rubio Gonzalez Measurements Intervals [place] Rate: 101 P: 72 PA: 160 QRS: 1 QRSD: 86 T: 29 QT: 353 QTc: 458 Interpretive Statements Sinus tachycardia Electronically Signed On 05-30-2019 17:49:59 EDT by Rubio [employer] [place], [place] [employer] [address] [facility] Test Date: 2019-05-28 Pat Name: Dane Acevesis Department: [facility] Room: 36 Gender: F Director Biology: DP : 1985 Requested By: Order Number: [id number] Reading MD: Rubio Gonzalez Measurements Intervals [place] Rate: 101 P: 72 PA: 160 QRS: 1 QRSD: 86 T: 29 QT: 353 QTc: 458 Interpretive Statements Sinus tachycardia Electronically Signed On 05-30-2019 17:49:59 EDT [facility] Test Date: 2019-05-28 Pat Name: Dane Hayden Department: [facility] Room: 36 Gender: F Director Biology: CHRISTOPHER : 1985 Requested By: Order Number: [id number] Reading MD: Rubio Gonzalez Measurements Intervals [place] Rate: 101 P: 72 PA: 160 QRS: 1 QRSD: 86 T: 29 QT: 353 QTc: 458 Interpretive Statements Sinus tachycardia Electronically Signed On 05-30-2019 17:49:59 EDT by Rubio Gonzalez [place], [place] Hematologyon 05-28-2019 Basophils/100 WBC (Bld) 0.8 % 0 - 2 % [place], [place] Eosinophils (Bld) [#/Vol] 0.2 10*3/uL 0 - 0.5 10*3/uL [place] Eosinophils/100 WBC (Bld) 2.1 % 1 - 6 % [place] Hematocrit (Bld) [Volume fraction] 37.3 % 35 - 47 % [place] Hemoglobin (Bld) [Mass/Vol] 12.7 g/dL 11.7 - 16 g/dL [place] Lymphocytes (Bld) [#/Vol] 3.3 10*3/uL 1 - 4.3 10*3/uL [place] Lymphocytes/100 WBC (Bld) 31.8 % 20 - 40 % [place] MCH (RBC) [Entitic mass] 32.2 pg 26 - 34 pg [place] MCV (RBC) [Entitic vol] 94.7 fL 79 - 98 fL [place], [place] Monocytes (Bld) [#/Vol] 1.2 10*3/uL High 0 - 0.8 10*3/uL [place] Monocytes/100 WBC (Bld) 11.6 % High 2 - 10 % [place] Platelets (Bld) [#/Vol] 359 10*3/uL 140 - 440 10*3/uL [place] RBC (Bld) [#/Vol] 3.94 10*6/uL 3.8 - 5.2 10*6/uL [place] WBC (Bld) [#/Vol] 10.3 10*3/uL 3.6 - 10.7 10*3/uL [place] Metabolic Panelon 05-28-2019 Sodium [Moles/Vol] Accepted [place], [place] Comment on above: Specimen available & acceptable for analysis. Albumin [Mass/Vol] 4.3 g/dL 3.5 - 5 g/dL [place], [place] ALP [Catalytic activity/Vol] 49 U/L 38 - 126 U/L [place] ALT [Catalytic activity/Vol] 13 U/L 13 - 69 U/L [place] Anion gap [Moles/Vol] 10 mmol/L [place], [place] AST [Catalytic activity/Vol] 23 U/L 15 - 46 U/L [place] Calcium [Mass/Vol] 9.8 mg/dL 8.4 - 10. 4 mg/dL [place] Chloride [Moles/Vol] 107 mmol/L 98 - 10 7 mmol/L [place] CO2 [Moles/Vol] 26 mmol/L 22 - 30 mmol/L [place] Creatinine [Mass/Vol] 0.71 mg/dL 0.52 - 1.25 mg/dL [place], [place] GFR/1.73 sq M predicted among blacks MDRD (S/P/Bld) [Vol rate/Area] mL/min/{1.73_m2} >60 mL/min [place] Glucose [Mass/Vol] 81 mg/dL 70 - 100 mg/dL [place] Potassium [Moles/Vol] 3.4 mmol/L Low 3.5 - 5.1 mmol/L [place] Protein [Mass/Vol] 7.5 g/dL 6.3 - 8.2 g/dL [place] Sodium [Moles/Vol] 142 mmol/L 135 - 145 mmol/L [place] Urea nitrogen [Mass/Vol] 9 mg/dL 7 - 20 mg/dL [place] Otheron 05-28-2019 Amphetamines, urine Negative [place], [place] Barbiturates, Ur Negative [place] Benzodiazepine Ur Qual Negative [place], [place] Cocaine Metabolites, Ur Negative [facility] [place], [place] Methadone, Urine Negative [facility] Opiates, Urine Negative [facility] Oxycodone Screen, Ur Negative [facility], [place] PCP, Urine Negative [facility] Comment on above: [...] confirmation under separate order. Test Performed by [facility], [address] [place] [address], [place] Test Performed by [address], [place] Interpretation and review of laboratory results Abnormal [facility], [place] Total CK 219 U/L High 30 - 170 U/L [facility] [place], [place] Test Performed by [facility], [address] [place] [address] [place], [place] Test Performed by [address], [place] Salicylate Lvl <1.0 0 - 20 mg/dL [facility] [place], [place] Test Performed by [facility], [address] [place] [address] [place]- [place] Test Performed by [facility], [address] [place] [address]- [place] Test Performed by [facility], [address] [place] [address] [place], [place] Test Performed by [address], [place] Acetaminophen [Mass/Vol] <10.0 10 - 30 ug/mL [place] Bilirubin Ql (U) 0.4 mg/dL 0.2 - 1.3 mg/dL [place] EGFR IF NonAfrican [place] >60.0 >60 mL/min [place], [place] Comment on above: Source- MDRD equatio n with creatinine calibration to IDMS(NKDEP) eGFR not recommended for drug dose adjustment Ethanol Lvl <0.010 0 - 0.01 g/dL [place], [place] Comment on above: NOTE: This result is for medical treatment only. Analysis performed using non-forensic procedures. Interpretation and review of laboratory results Abnormal [place] Test Performed by [address] Test Performed by [address] Test Performed by [place] [address] Test Performed by [place] [address] Bilirubin Urine Negative mg/dL [place], [place] Comment on above: Reference Range: Neg ative Glucose, Ur Normal mg/dL [place], [place] Comment on above: Reference Range: Nor mal (<70) LEUKOCYTES, UA Negative [place]/uL [place], [place] Comment on above: Reference Range: Neg ative Nitrite, Urine Negative [place], [place] Comment on above: Reference Range: Neg ative Occult Blood,Urine Negative mg/dL [place], [place] Comment on above: Reference Range: Neg ative pH (U) 8.0 [pH] [place] Specific [place], Urine 1.008 [place], [place] Urobilinogen, Urine Normal mg/dL [place], [place] Comment on above: Reference Range: Nor mal (0-1) Test Performed by [facility], [facility] [address] Test Performed by [place] [address] Absolute Baso # 0.1 10*3/uL 0 - 0.2 10*3/uL [place], [place] Absolute Neut # 5.5 10*3/uL 1.8 - 7 10*3/uL [place] Erythrocyte distribution width (RBC) [Ratio] 13.2 % 11.5 - 14.5 % [place], [place] Granulocytes/100 WBC (Bld) 53.7 % 40 - 80 % [place], [place] Interpretation and review of laboratory results Abnormal [place] MCHC (RBC) [Mass/Vol] 34.0 % 32 - 36 % [place], [place] Platelet mean volume (Bld) [Entitic vol] 7.5 fL 7.4 - 10.4 fL [place] Test Performed by [address] Test Performed by [place] [address] Urinalysison 05-28-2019 Beta HCG ( test) Ql (U) Negative Negative NA [place], [place] Comment on above: is the mos t common reason for HCG in urine, although choriocarcinoma, hydatidiform mole, and certain nontropho- blastic malignancies also result in detectable urinary HCG levels. Sensitivity = 20mIU/mL. Appearance (U) Turbid [place], [place] Comment on above: Reference Range: Vinicius ar Color (U) Light-Yellow [place], [place] Comment on above: Reference Range: Lt. Yellow Ketones Ql (U) Negative mg/dL [place], [place] Comment on above: Reference Range: Neg ative Protein (U) [Mass/Vol] Negative mg/dL [place], [place] Comment on above: Reference Range: Neg ative [facility] 2018 Amphetamines Ql (U) Positive Normal [facility] Comment on above: Performed By: #### I GN #### [place] [address] [place] [address] THC Positive Normal [facility] Comment on above: Performed By: #### I GN #### [facility] [address] [place], [place] Barbiturates Negative [facility] Comment on above: Performed By: #### I GN #### [facility] [address] [place], [place] Benzodiazepines Ql (U) Negative [facility] Comment on above: Performed By: #### I GN #### [facility] [address] [place], [place] Cocaine Metabolites Negative [facility] Comment on above: Performed By: #### I GN #### [facility] [address] [place], [place] Comment Normal [facility] Comment on above: Result Comment: The [...] procedures. Performed By: #### I GN #### [facility] [address] [place], [place] Ethanol [Mass/Vol] Negative [facility] Comment on above: Performed By: #### I GN #### [facility] [address] [place], [place] Opiates Ql (U) Negative [facility] Comment on above: Performed By: #### I GN #### [facility] [address] [place], [place] Oxycodone Negative [facility] Comment on above: Performed By: #### I GN #### [facility] [address] [place], [place] Metabolic Panelon 05-26-2019 Sodium [Moles/Vol] Positive [facility] [place], [place] Sodium [Moles/Vol] [place], [place] Comment on above: The following drugs [...] performed using non-forensic procedures. Sodium [Moles/Vol] Negative [place], [place] Otheron 05-26-2019 Test Performed by [place] [address] [place] [address] [place], [place] Urinalysison 05-26-2019 Amphetamines Ql (U) Positive [facility], [place] Benzodiazepines Ql (U) Negative [place], [place] Cocaine Ql (U) Negative [facility], [place] Opiates Ql (U) Negative [place] [facility] Amphetamines Ql (U) Positive [facility] Comment on above: Performed By: #### I GN #### [place] [address] [place], [place] THC Positive [facility] Comment on above: Performed By: #### I GN #### [place] [address] [address] [facility] [place] [facility] Screenon 2018 Barbiturates Negative [facility] Comment on above: Performed By: #### I GN #### [place] [address] [facility] [place] Benzodiazepines Ql (U) Negative [facility] Comment on above: Performed By: #### I GN #### [place] [address] [facility] [place] Cocaine Metabolites Negative [facility] Comment on above: Performed By: #### I GN #### [place] [address] [facility] [address] [place], [place] Comment [facility] Comment on above: Result Comment: [...] procedures. Performed By: #### I GN #### [place] [address] [place], [place] Ethanol [Mass/Vol] Negative [facility] Comment on above: Performed By: #### I GN #### [place] [address] [place] Opiates Ql (U) Negative [facility] Comment on above: Performed By: #### I GN #### [place] [address] [place], [place] Oxycodone Negative [facility] Comment on above: Performed By: #### I GN #### [place] [address] [place] [facility] Screen[facility] 2018 Amphetamines Ql (U) Positive [facility] Comment on above: Performed By: #### I GN #### [place] [address] [place] THC Positive [facility] Comment on above: Performed By: #### I GN #### [place] [address] [place], [place] Amphetamines Ql (U) Positive [facility] [place] Benzodiazepines Ql (U) Negative [facility] [place] Cocaine Ql (U) Negative [facility] [place] Opiates Ql (U) Negative [facility] Sodium [Moles/Vol] Positive [...] performed using non-forensic procedures. Test Performed by [facility], [address] [place] [address] [facility], [place] Barbiturates Negative [facility] Comment on above: Performed By: #### I GN #### [address] Benzodiazepines Ql (U) Negative [facility] Comment on above: Performed By: #### I GN #### [address] Cocaine Metabolites Negative [facility] Comment on above: Performed By: #### I GN #### [place] [address] [place], [place] Comment [facility] Comment on above: Result Comment: [...] procedures. Performed By: #### I GN #### [address] [place] Ethanol [Mass/Vol] Negative [facility] Comment on above: Performed By: #### I GN #### [place] [address] [place] Opiates Ql (U) Negative Normal [facility] Comment on above: Performed By: #### I GN #### [facility] [address] [place], [place] Oxycodone Negative Normal [facility] Comment on above: Performed By: #### I GN #### [facility] [address] [place], [place] Metabolic Panelon 05-07-2019 Sodium [Moles/Vol] Negative [facility], [place] Wet Prepon 06-07-2017 Wet Prep SOURCE: Vag (Few Whi te Blood Cells No clue cells No Yeast No Trichomonas vaginalis) Normal [facility] Chlam Amp RNAon 06-06-2017 Chlam Amp RNA Negative Normal Negative [facility] Comment on above: Result Comment: Holo [...] Performance characteristics for this assay on specific [id number] sample types (female urine) have been validated by [facility]. Performance has not been evaluated for patients less than 14 years of age. Results should be interpreted in conjunction with other clinical information. GC AMP RNAon 06-06-2017 GC Amp RNA Negative Normal Negative [facility] RUMon 06-06-2017 Bilirubin (total) Negative Normal Negative [facility] Comment on above: Result Comment: Nega tive Blood Negative Normal Negative [facility] Comment on above: Result Comment: Nega tive Erythrocytes (RBC) 0-2 Normal 0-2 [facility] Comment on above: Result Comment: 0-2 Glucose mass conc Negative Normal Negative [facility] Comment on above: Result Comment: Nega tive Leukocyte Marcia Negative Normal Negative [facility] Comment on above: Result Comment: Nega tive Protein Trace Abnormal Negative [facility] Comment on above: Result Comment: Trac e Squamous Epith FEW Normal FEW [facility] Comment on above: Result Comment: FEW Ur Appearance SL Cloudy Normal Clear [facility] Comment on above: Result Comment: SL C loudy Urine Spec [place] >=1.030 Normal 1.001-1.03 [facility] Comment on above: Result Comment: >=1. 030 Urine, color Yellow Normal Yellow [facility] Comment on above: Result Comment: [place] ow Urine, ketones presence Negative Normal Negative [facility] Comment on above: Result Comment: Nega tive Urine, nitrite presence Negative Normal Negative [facility] Comment on above: Result Comment: Nega tive Urine, pH 6.0 [pH] Normal 4.8 - 8.0 [facility] Comment on above: Result Comment: 6.0 Urine, urobilinogen 0.2 {Sonia'U}/dL Normal <1.0 [facility] Comment on above: Result Comment: 0.2 WBC (Leukocytes) 2-5 Normal 0-5 [facility] Comment on above: Result Comment: 2-5 Auto Diffon 04-19-2017 Basophils/100 WBC Auto (Bld) 0.1 x10E9/L Normal 0.0-0.2 [facility] Basophils/100 WBC Auto (Bld) 0.5 % Normal 0.0-2.4 [facility] Eosinophils 0.3 10*3/uL Normal 0.0-0.5 [facility] Eosinophils/100 leukocytes 2.3 % Normal 0.7-6.5 [facility] Lymphocytes 5.5 10*3/uL High 1.1-3.5 [facility] Lymphocytes/100 leukocytes 44.4 % High 17.0-44.0 [facility] Monocytes 0.8 10*3/uL Normal 0.3-1.0 [facility] Monocytes/100 leukocytes 6.3 % Normal 5.3-12.5 [facility] Neutrophils 5.7 10*3/uL Normal 1.8-7.5 [facility] Neutrophils/100 WBC Auto (Bld) 46.5 % Normal 41.0-73.8 [facility] BMPon 04-19-2017 Anion gap 9.0 mmol/L Normal 5.0-19.0 [facility] Bun/CretRatio 16.4 Normal [facility] Calcium 9.9 mg/dL Normal 8.1-10.1 [facility] Chloride 105 mmol/L Normal 98-107 [facility] CO2 25 mmol/L Normal 22-32 [facility] Creatinine 0.55 mg/dL Low 0.60-1.30 [facility] Glucose mass conc 97 mg/dL Normal 70-100 [facility] Osmolality-Calc 276 mOsm/kg Normal [facility] Potassium molar conc 3.7 mmol/L Normal 3.4-5.1 [facility] Sodium 139 mmol/L Normal 136-144 [facility] Urea nitrogen 9 mg/dL Normal 8-26 [facility] RUMon 04-19-2017 Bilirubin (total) Negative Normal Negative [facility] Blood Negative Normal Negative [facility] Ca Oxal Elana Few Abnormal [facility] Glucose mass conc Negative Normal Negative [facility] Leukocyte Marcia Negative Normal Negative [facility] Protein Negative Normal Negative [facility] Squamous Epith FEW Normal FEW [facility] Ur Appearance Clear Normal Clear [facility] Urine Spec [place] >=1.030 Normal 1.001-1.03 [facility] Urine, bacteria in sediment 1+ POS Abnormal Negative [facility] Urine, color Yellow Normal Yellow [facility] Urine, ketones presence Trace Abnormal Negative [facility] Urine, nitrite presence Negative Normal Negative [facility] Urine, pH 6.0 [pH] Normal 4.8 - 8.0 [facility] Urine, urobilinogen 0.2 {Sonia'U}/dL Normal <1.0 [facility] U Pregon 04-19-2017 HCG.beta subunit ( test) Ql (U) Negative Normal Negative [facility] Comment on above: Result Comment: [facility] testing performed by nursing. zCBCDon 04-19-2017 Erythrocyte distribution width Auto Ratio (RBC) 12.9 % Normal 11.4-16.0 [facility] Erythrocytes (RBC) 4.18 x10E12/L Normal 3.78-5.45 [facility] Hematocrit (HCT) 39.1 % Normal 34.7-44.9 [facility] Hemoglobin mass conc (Bld) 12.9 g/dL Normal 11.3-15.6 [facility] MCH 31.0 pg Normal 26.5-33.0 [facility] MCHC mass conc (RBC) 33.1 g/dL Normal 32.6-36.0 [facility] MCV 93.6 fL Normal 80.0-100.0 [facility] Mean Plt Vol 7.4 fL Normal 7.2-10.3 [facility] Platelets 325 10*3/uL Normal 144-400 [facility] WBC (Leukocytes) 12.3 10*3/uL High 3.5-11.5 Ana Maria on [facility] IUD INSERTION [facility] Vital Signs Date Time Vital Sign Value Performing Clinician Facility 03-22-2025 13:25-0400 Body mass index (BMI) [Ratio] 27.84 kg/m2 Hui Podlogar 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 Work Phone: [facility] 03-22-2025 13:25-0400 Body weight 73.57 kg Hui Podlogar 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 Work Phone: [facility] 03-22-2025 13:25-0400 Diastolic blood pressure 82 mm[Hg] Hui Podlogar 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 Work Phone: [facility] 03-22-2025 13:25-0400 Heart rate 89 /min Hui Podlogar 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 Work Phone: [facility] 03-22-2025 13:25-0400 Respiratory rate 16 /min Hui Podlogar 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 Work Phone: [facility] 03-22-2025 13:25-0400 SaO2% (BldA) [Mass fraction] 98 % Hui Podlogar 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 Work Phone: [facility] 03-22-2025 13:25-0400 Systolic blood pressure 142 mm[Hg] Hui Podlogar 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 Work Phone: [facility] 02-24-2025 10:56-0400 Body temperature 98.5 [degF] Dr. Tato Prieto DO Work Phone: [facility] 02-24-2025 10:56-0400 Diastolic blood pressure 88 mm[Hg] Dr. Tato Prieto DO Work Phone: [facility] 02-24-2025 10:56-0400 Heart rate 69 /min Dr. Tato Prieto DO Work Phone: [facility] 02-24-2025 10:56-0400 Respiratory rate 18 /min Dr. Tato Prieto DO Work Phone: 2(732)113-785928 [place] [address] 02-24-2025 10:56-0400 SaO2% (BldA) [Mass fraction] 97 % Dr. Tato Prieto DO Work Phone: 5(374)571-934828 [place] [address] 02-24-2025 10:56-0400 Systolic blood pressure 128 mm[Hg] Dr. Tato Prieto DO Work Phone: 2(582)657-283728 [place] [address] 02-23-2025 11:16-0400 Body height 162.[address] Tato Prieto DO Work Phone: 1(507)401-130288 [place] [address] 02-23-2025 11:16-0400 Body mass index (BMI) [Ratio] 28.3 kg/m2 Dr. Tato Prieto DO Work Phone: 4(554)660-306788 [place] [address] 02-23-2025 11:16-0400 Body weight 75.[address] Tato Prieto DO Work Phone: 0(674)759-117388 [place] [address] 02-22-2025 04:06-0400 Body temperature 98.6 [degF] Dr. Tato Prieto DO Work Phone: 3(250)227-726928 [place] [address] 02-22-2025 04:06-0400 Diastolic blood pressure 92 mm[Hg] Dr. Tato Prieto DO Work Phone: 4(504)994-005828 [place] [address] 02-22-2025 04:06-0400 Heart rate 82 /min Dr. Tato Prieto DO Work Phone: 0(020)103-483928 [place] [address] 02-22-2025 04:06-0400 Respiratory rate 16 /min Dr. Tato Prieto DO Work Phone: 4(659)474-852728 [place] [address] 02-22-2025 04:06-0400 SaO2% (BldA) [Mass fraction] 100 % Dr. Tato Prieto DO Work Phone: 1(174)813-799428 [place] [address] 02-22-2025 04:06-0400 Systolic blood pressure 155 mm[Hg] Dr. Tato Prieto DO Work Phone: 7(073)385-409428 [place] [address] 02-21-2025 23:30-0400 Body height 162.[address] Tato Prieto DO Work Phone: 5(425)657-560588 [place] [address] 02-21-2025 23:30-0400 Body mass index (BMI) [Ratio] 28.7 kg/m2 Dr. Tato Prieto DO Work Phone: 6(849)762-044188 [place] [address] 02-21-2025 23:30-0400 Body weight 75.[address] Tato Prieto DO Work Phone: 3(940)449-432088 [place] [address] 02-21-2025 15:59-0400 Body temperature 98.7 [degF] Dr. Tato Prieto DO Work Phone: 5(634)599-421288 [place] [address] 02-21-2025 15:59-0400 Diastolic blood pressure 84 mm[Hg] Dr. Tato Prieto DO Work Phone: 9(648)312-808088 [place] [address] 02-21-2025 15:59-0400 Heart rate 73 /min Dr. Tato Prieto DO Work Phone: 6(723)926-067888 [place] [address] 02-21-2025 15:59-0400 Respiratory rate 16 /min Dr. Tato Prieto DO Work Phone: 8(414)786-958588 [place] [address] 02-21-2025 15:59-0400 SaO2% (BldA) [Mass fraction] 100 % Dr. Tato Prieto DO Work Phone: 3(703)688-825988 [place] [address] 02-21-2025 15:59-0400 Systolic blood pressure 133 mm[Hg] Dr. Tato Prieto DO Work Phone: 9(644)477-611688 [place] [address] 02-21-2025 13:19-0400 Body height 162.[address] Tato Prieto DO Work Phone: 6(052)568-861588 [place] [address] 02-21-2025 13:19-0400 Body mass index (BMI) [Ratio] 28.1 kg/m2 Dr. Tato Prieto DO Work Phone: 9(881)338-093288 [place] [address] 02-21-2025 13:19-0400 Body weight 74.[address] Tato Prieto DO Work Phone: 9(720)709-236988 [place] [address] 02-14-2025 18:00-0400 Body temperature 97.9 [degF] Dr. Tato Prieto DO Work Phone: 7(069)620-226188 [place] [address] 02-14-2025 18:00-0400 Diastolic blood pressure 82 mm[Hg] Dr. Tato Prieto DO Work Phone: 3(175)355-201688 [place] [address] 02-14-2025 18:00-0400 Heart rate 75 /min Dr. Tato Prieto DO Work Phone: 2(128)941-838088 [place] [address] 02-14-2025 18:00-0400 Respiratory rate 16 /min Dr. Tato Prieto DO Work Phone: 1(098)502-918188 [place] [address] 02-14-2025 18:00-0400 SaO2% (BldA) [Mass fraction] 100 % Dr. Tato Prieto DO Work Phone: 9(643)049-136788 [place] [address] 02-14-2025 18:00-0400 Systolic blood pressure 126 mm[Hg] Dr. Tato Prieto DO Work Phone: 0(383)256-688988 [place] [address] 02-14-2025 15:55-0400 Inhaled oxygen flow rate 8 L/min Dr. Tato Prieto DO Work Phone: 1(267)731-512388 [place] [address] 02-14-2025 13:25-0400 Body height 162.[address] Tato Prieto DO Work Phone: 4(511)885-150288 [place] [address] 02-14-2025 13:25-0400 Body mass index (BMI) [Ratio] 27.6 kg/m2 Dr. Tato Prieto DO Work Phone: 2(173)759-178088 [place] [address] 02-14-2025 13:25-0400 Body weight [address] Tato Prieto DO Work Phone: 6(976)435-940688 [place] [address] 02-02-2025 13:06-0400 Body height 162.[address] Tato Prieto DO Work Phone: 3(683)871-247888 [place] [address] 02-02-2025 13:06-0400 Body mass index (BMI) [Ratio] 28.1 kg/m2 Dr. Tato Prieto DO Work Phone: 2(999)156-740728 [place] [address] 02-02-2025 13:06-0400 Body weight 74.[address] Tato Prieto DO Work Phone: 5(554)052-354828 [place] [address] 02-02-2025 13:06-0400 Diastolic blood pressure 79 mm[Hg] Dr. Tato Prieto DO Work Phone: 2(122)864-647328 [place] [address] 02-02-2025 13:06-0400 Heart rate 90 /min Dr. Tato Prieto DO Work Phone: 4(809)160-588528 [place] [address] 02-02-2025 13:06-0400 Respiratory rate 17 /min Dr. Tato Prieto DO Work Phone: 4(542)084-083588 [place] [address] 02-02-2025 13:06-0400 SaO2% (BldA) [Mass fraction] 98 % Dr. Tato Prieto DO Work Phone: 5(449)709-838428 [place] [address] 02-02-2025 13:06-0400 Systolic blood pressure 127 mm[Hg] Dr. Tato Prieto DO Work Phone: 4(912)804-637728 [place] [address] 01-15-2025 21:26-0400 Body temperature 98.7 [degF] Dr. Tato Prieto DO Work Phone: 2(549)673-710228 [place] [address] 01-15-2025 21:26-0400 Diastolic blood pressure 90 mm[Hg] Dr. Tato Prieto DO Work Phone: 9(315)602-469528 [place] [address] 01-15-2025 21:26-0400 Heart rate 75 /min Dr. Tato Prieto DO Work Phone: 9(644)148-229328 [place] [address] 01-15-2025 21:26-0400 Respiratory rate 16 /min Dr. Tato Prieto DO Work Phone: 9(539)505-617428 [place] [address] 01-15-2025 21:26-0400 SaO2% (BldA) [Mass fraction] 100 % Dr. Tato Prieto DO Work Phone: 1(408)507-565028 [place] [address] 01-15-2025 21:26-0400 Systolic blood pressure 131 mm[Hg] Dr. Tato Prieto DO Work Phone: [facility] 01-15-2025 17:48-0400 Body mass index (BMI) [Ratio] 28.8 kg/m2 Dr. Tato Prieto DO Work Phone: [facility] 01-15-2025 17:48-0400 Body weight 76.[address] Tato Prieto DO Work Phone: [facility] 12-31-2024 12:56-0400 Body mass index (BMI) [Ratio] 28.15 kg/m2 Hui Podlogar 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 Work Phone: [facility] 12-31-2024 12:56-0400 Body weight 74.39 kg Hui Podlogar 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 Work Phone: [facility] 12-31-2024 12:56-0400 Diastolic blood pressure 78 mm[Hg] Hui Podlogar 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 Work Phone: [facility] 12-31-2024 12:56-0400 Heart rate 100 /min Hui Podlogar 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 Work Phone: [facility] 12-31-2024 12:56-0400 Respiratory rate 16 /min Hui Podlogar 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 Work Phone: [facility] 12-31-2024 12:56-0400 SaO2% (BldA) [Mass fraction] 97 % Hui Podlogar 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 Work Phone: [facility] 12-31-2024 12:56-0400 Systolic blood pressure 122 mm[Hg] Hui Podlogar 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 Work Phone: [facility] 10-18-2024 10:07-0500 Body height 162.6 cm Temitope Bear ARTIFICIAL SNOW MAKING MACHINE OPERATOR.CNM Work Phone: [facility] 10-18-2024 10:07-0500 Body mass index (BMI) [Ratio] 28.67 kg/m2 Temitope Bear ARTIFICIAL SNOW MAKING MACHINE OPERATOR.CNM Work Phone: [facility] 10-18-2024 10:07-0500 Body weight 75.75 kg Temitope Bear ARTIFICIAL SNOW MAKING MACHINE OPERATOR.CNM Work Phone: [facility] 10-18-2024 10:07-0500 Diastolic blood pressure 74 mm[Hg] Temitope Bear ARTIFICIAL SNOW MAKING MACHINE OPERATOR.CNM Work Phone: [facility] 10-18-2024 10:07-0500 Systolic blood pressure 126 mm[Hg] Temitope Bear ARTIFICIAL SNOW MAKING MACHINE OPERATOR.CNM Work Phone: [facility] 07-05-2024 12:58-0400 Body height 160.4 cm Hui Podlogar 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 Work Phone: [facility] 07-05-2024 12:58-0400 Body mass index (BMI) [Ratio] 30.63 kg/m2 Hui Podlogar 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 Work Phone: [facility] 07-05-2024 12:58-0400 Body weight 78.8 kg Hui Podlogar 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 Work Phone: [facility] 07-05-2024 12:58-0400 Diastolic blood pressure 84 mm[Hg] Hui Podlogar 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 Work Phone: [facility] 07-05-2024 12:58-0400 Heart rate 94 /min Hui Podlogar 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 Work Phone: [facility] 07-05-2024 12:58-0400 Respiratory rate 16 /min Hui Podlogar 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 Work Phone: [facility] 07-05-2024 12:58-0400 SaO2% (BldA) [Mass fraction] 98 % Hui Podlogar 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 Work Phone: [facility] 07-05-2024 12:58-0400 Systolic blood pressure 136 mm[Hg] Hui Podlogar 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 Work Phone: [facility] 07-01-2023 10:36-0400 Body height 161.3 cm Ernesto Carlin MD Work Phone: [facility] 07-01-2023 10:36-0400 Body temperature 98.4 [degF] Ernesto Carlin MD Work Phone: [facility] 07-01-2023 10:36-0400 Body weight 87.09 kg Ernesto Carlin MD Work Phone: [facility] 07-01-2023 10:36-0400 Diastolic blood pressure 86 mm[Hg] Ernesto Carlin MD Work Phone: [facility] 07-01-2023 10:36-0400 Heart rate 64 /min Ernesto Carlin MD Work Phone: [facility] 07-01-2023 10:36-0400 Systolic blood pressure 102 mm[Hg] Ernesto Carlin MD Work Phone: [facility] 03-26-2023 13:59-0400 Body height 161.3 cm Jessenia Grace MD Work Phone: [facility] 03-26-2023 13:59-0400 Body weight 89.72 kg Jessenia Grace MD Work Phone: [facility] 03-26-2023 13:59-0400 Diastolic blood pressure 79 mm[Hg] Jessenia Grace MD Work Phone: [facility] 03-26-2023 13:59-0400 Heart rate 77 /min Jessenia Grace MD Work Phone: [facility] 03-26-2023 13:59-0400 Systolic blood pressure 123 mm[Hg] Jessenia Grace MD Work Phone: [facility] 01-17-2023 09:19-0400 Diastolic blood pressure 71 mm[Hg] Jessenia Grace MD Work Phone: [facility] 01-17-2023 09:19-0400 Heart rate 90 /min Jessenia Grace MD Work Phone: [facility] 01-17-2023 09:19-0400 Respiratory rate 17 /min Jessenia Grace MD Work Phone: [facility] 01-17-2023 09:19-0400 SaO2% (BldA) [Mass fraction] 97 % Jessenia Grace MD Work Phone: [facility] 01-17-2023 09:19-0400 Systolic blood pressure 123 mm[Hg] Jessenia Grace MD Work Phone: [facility] 01-17-2023 08:56-0400 Body temperature 97.2 [degF] Jessenia Grace MD Work Phone: [facility] 01-01-2023 14:20-0400 Body height 161.3 cm Jessenia Grace MD Work Phone: [facility] 01-01-2023 14:20-0400 Body weight 93.89 kg Jessenia Grace MD Work Phone: [facility] 01-01-2023 14:20-0400 Diastolic blood pressure 76 mm[Hg] Jessenia Grace MD Work Phone: [facility] 01-01-2023 14:20-0400 Heart rate 80 /min Jessenia Grace MD Work Phone: [facility] 01-01-2023 14:20-0400 Systolic blood pressure 118 mm[Hg] Jessenia Grace MD Work Phone: [facility] 12-10-2022 14:38-0400 Diastolic blood pressure 78 mm[Hg] Ernesto Carlin MD Work Phone: [facility] 12-10-2022 14:38-0400 Systolic blood pressure 130 mm[Hg] Ernesto Carlin MD Work Phone: [facility] 12-10-2022 14:28-0400 Body height 162.6 cm Ernesto Carlin MD Work Phone: [facility] 12-10-2022 14:28-0400 Body temperature 97.3 [degF] Ernesto Carlin MD Work Phone: [facility] 12-10-2022 14:28-0400 Body weight 95.25 kg Ernesto Carlin MD Work Phone: [facility] 12-10-2022 14:28-0400 Heart rate 88 /min Ernesto Carlin MD Work Phone: [facility] 12-10-2022 09:45-0400 Body height 162.6 cm Alysha Speedy 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 Work Phone: [facility] 12-10-2022 09:45-0400 Body weight 95.25 kg Alysha Speedy 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 Work Phone: [facility] 12-10-2022 09:45-0400 Diastolic blood pressure 80 mm[Hg] Alysha Speedy 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 Work Phone: [facility] 12-10-2022 09:45-0400 Systolic blood pressure 114 mm[Hg] Alysha Speedy 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 Work Phone: [facility] 11-01-2022 13:40-0500 Body height 162.6 cm Alysha Speedy 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 Work Phone: [facility] 11-01-2022 13:40-0500 Body weight 97.43 kg Alysha Speedy 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 Work Phone: [facility] 11-01-2022 13:40-0500 Diastolic blood pressure 90 mm[Hg] Alysah Speedy 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 Work Phone: [facility] 11-01-2022 13:40-0500 Systolic blood pressure 152 mm[Hg] Alysha Speedy 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 Work Phone: [facility] 10-23-2022 15:05-0500 Body height 162.6 cm Tricia Rangel MD Work Phone: [facility] 10-23-2022 15:05-0500 Body weight 96.62 kg Tricia Rangel MD Work Phone: [facility] 10-23-2022 15:05-0500 Diastolic blood pressure 82 mm[Hg] Tricia Rangel MD Work Phone: [facility] 10-23-2022 15:05-0500 Systolic blood pressure 141 mm[Hg] Tricia Rangel MD Work Phone: [facility] 10-08-2022 10:52-0500 Body height 162.6 cm Ernesto Carlin MD Work Phone: [facility] 10-08-2022 10:52-0500 Body temperature 97.5 [degF] Ernesto Carlin MD Work Phone: [facility] 10-08-2022 10:52-0500 Body weight 97.98 kg Ernesto Carlin MD Work Phone: [facility] 10-08-2022 10:52-0500 Diastolic blood pressure 88 mm[Hg] Ernesto Carlin MD Work Phone: [facility] 10-08-2022 10:52-0500 Heart rate 80 /min Ernesto Carlin MD Work Phone: [facility] 10-08-2022 10:52-0500 Systolic blood pressure 136 mm[Hg] Ernesto Carlin MD Work Phone: [facility] 09-04-2022 14:42-0500 Body height 162.6 cm Tricia Rangel MD Work Phone: [facility] 09-04-2022 14:42-0500 Body weight 104.78 kg Tricia Rangel MD Work Phone: [facility] 09-04-2022 14:42-0500 Diastolic blood pressure 75 mm[Hg] Tricia Rangel MD Work Phone: [facility] 09-04-2022 14:42-0500 Systolic blood pressure 120 mm[Hg] Tricia Rangel MD Work Phone: [facility] 08-30-2022 14:35-0500 Body height 162.6 cm Tato [place] MD Work Phone: [facility] 08-30-2022 14:35-0500 Body weight 104.42 kg Tato [place] MD Work Phone: [facility] 08-30-2022 14:35-0500 Diastolic blood pressure 76 mm[Hg] Tato [place] MD Work Phone: [facility] 08-30-2022 14:35-0500 Systolic blood pressure 133 mm[Hg] Tato [place] MD Work Phone: [facility] 08-23-2022 14:00-0500 Body height 162.6 cm Tato [place] MD Work Phone: [facility] 08-23-2022 14:00-0500 Body weight 104.33 kg Tato [place] MD Work Phone: [facility] 08-23-2022 14:00-0500 Diastolic blood pressure 89 mm[Hg] Tato [place] MD Work Phone: [facility] 08-23-2022 14:00-0500 Systolic blood pressure 128 mm[Hg] Tato [place] MD Work Phone: [facility] 08-15-2022 14:33-0500 Body height 162.6 cm Tato Brow[place] MD Work Phone: [facility] 08-15-2022 14:33-0500 Body weight 104.01 kg Tato Browning MD Work Phone: [facility] 08-15-2022 14:33-0500 Diastolic blood pressure 72 mm[Hg] Tato Brow[place] MD Work Phone: [facility] 08-15-2022 14:33-0500 Systolic blood pressure 122 mm[Hg] Tato [place] MD Work Phone: [facility] 08-06-2022 13:12-0500 Body height 162.6 cm Yael Del Ciappo ARTIFICIAL SNOW MAKING MACHINE OPERATOR.CNM Work Phone: [facility] 08-06-2022 13:12-0500 Body weight 105.33 kg Yael Del Ciappo ARTIFICIAL SNOW MAKING MACHINE OPERATOR.CNM Work Phone: [facility] 08-06-2022 13:12-0500 Diastolic blood pressure 71 mm[Hg] Yael Del Ciappo ARTIFICIAL SNOW MAKING MACHINE OPERATOR.CNM Work Phone: [facility] 08-06-2022 13:12-0500 Systolic blood pressure 113 mm[Hg] Yael Del Ciappo ARTIFICIAL SNOW MAKING MACHINE OPERATOR.CNM Work Phone: [facility] 08-02-2022 13:26-0500 Body height 162.6 cm Tato [place] MD Work Phone: [facility] 08-02-2022 13:26-0500 Body weight 105.46 kg Tato [place] MD Work Phone: [facility] 08-02-2022 13:26-0500 Diastolic blood pressure 77 mm[Hg] Tato [place] MD Work Phone: [facility] 08-02-2022 13:26-0500 Systolic blood pressure 123 mm[Hg] Tato Browning MD Work Phone: [facility] 07-19-2022 11:15-0400 Body height 162.6 cm Guanakito Surace PA-C Work Phone: [facility] 07-19-2022 11:15-0400 Body weight 105.69 kg Guanakito Surace PA-C Work Phone: [facility] 07-19-2022 11:15-0400 Diastolic blood pressure 71 mm[Hg] Guanakito Surace PA-C Work Phone: [facility] 07-19-2022 11:15-0400 Systolic blood pressure 113 mm[Hg] Guanakito Surace PA-C Work Phone: [facility] 07-05-2022 10:20-0400 Body height 162.6 cm Guanakito Surace PA-C Work Phone: [facility] 07-05-2022 10:20-0400 Body weight 104.78 kg Guanakito Surace PA-C Work Phone: [facility] 07-05-2022 10:20-0400 Diastolic blood pressure 84 mm[Hg] Guanakito Surace PA-C Work Phone: [facility] 07-05-2022 10:20-0400 Systolic blood pressure 125 mm[Hg] Guanakito Surace PA-C Work Phone: [facility] 06-21-2022 13:15-0400 Body height 162.6 cm Guanakito Surace PA-C Work Phone: [facility] 06-21-2022 13:15-0400 Body weight 104.64 kg Guanakito Surace PA-C Work Phone: [facility] 06-21-2022 13:15-0400 Diastolic blood pressure 69 mm[Hg] Guanakito Surace PA-C Work Phone: [facility] 06-21-2022 13:15-0400 Systolic blood pressure 106 mm[Hg] Guanakito Surace PA-C Work Phone: [facility] 05-10-2022 08:37-0400 Body height 162.6 cm Guanakito Surace PA-C Work Phone: [facility] 05-10-2022 08:37-0400 Body weight 102.69 kg Guanakito Surace PA-C Work Phone: [facility] 05-10-2022 08:37-0400 Diastolic blood pressure 71 mm[Hg] Guanakito Surace PA-C Work Phone: [facility] 05-10-2022 08:37-0400 Systolic blood pressure 107 mm[Hg] Guanakito Surace PA-C Work Phone: [facility] 05-06-2022 13:44-0400 Body weight 103.06 kg Ernesto Carlin MD Work Phone: [facility] 05-06-2022 13:44-0400 Diastolic blood pressure 72 mm[Hg] Ernesto Carlin MD Work Phone: [facility] 05-06-2022 13:44-0400 Heart rate 95 /min Ernesto Carlin MD Work Phone: [facility] 05-06-2022 13:44-0400 SaO2% (BldA) [Mass fraction] 98 % Ernesto Carlin MD Work Phone: [facility] 05-06-2022 13:44-0400 Systolic blood pressure 120 mm[Hg] Ernesto Carlin MD Work Phone: [facility] 04-05-2022 10:13-0400 Body height 162.6 cm Ernesto Carlin MD Work Phone: [facility] 04-05-2022 10:13-0400 Body temperature 98.8 [degF] Ernesto Carlin MD Work Phone: [facility] 04-05-2022 10:13-0400 Body weight 102.06 kg Ernesto Carlin MD Work Phone: [facility] 04-05-2022 10:13-0400 Diastolic blood pressure 82 mm[Hg] Ernesto Carlin MD Work Phone: [facility] 04-05-2022 10:13-0400 Heart rate 100 /min Ernesto Carlin MD Work Phone: [facility] 04-05-2022 10:13-0400 Systolic blood pressure 110 mm[Hg] Ernesto Carlin MD Work Phone: [facility] 04-05-2022 08:47-0400 Body height 162.6 cm Guanakito Surace PA-C Work Phone: [facility] 04-05-2022 08:47-0400 Body weight 102.06 kg Guanakito Surace PA-C Work Phone: [facility] 04-05-2022 08:47-0400 Diastolic blood pressure 71 mm[Hg] Guanakito Surace PA-C Work Phone: [facility] 04-05-2022 08:47-0400 Systolic blood pressure 116 mm[Hg] Guanakito Surace PA-C Work Phone: [facility] 02-14-2022 14:32-0400 Body height 162.6 cm Tato Browning MD Work Phone: [facility] 02-14-2022 14:32-0400 Body weight 100.83 kg Tato Browning MD Work Phone: [facility] 02-14-2022 14:32-0400 Diastolic blood pressure 87 mm[Hg] Tato Browning MD Work Phone: [facility] 02-14-2022 14:32-0400 Systolic blood pressure 127 mm[Hg] Tato Browning MD Work Phone: [facility] 02-08-2022 10:03-0400 Body height 162.6 cm Ernesto Carlin MD Work Phone: [facility] 02-08-2022 10:03-0400 Body temperature 97.9 [degF] Ernesto Carlin MD Work Phone: [facility] 02-08-2022 10:03-0400 Body weight 101.15 kg Ernesto Carlin MD Work Phone: [facility] 02-08-2022 10:03-0400 Diastolic blood pressure 76 mm[Hg] Ernesto Carlin MD Work Phone: [facility] 02-08-2022 10:03-0400 Heart rate 92 /min Ernesto Carlin MD Work Phone: [facility] 02-08-2022 10:03-0400 Systolic blood pressure 114 mm[Hg] Ernesto Carlin MD Work Phone: [facility] 01-23-2022 10:07-0400 Body height 160.02 cm Ernesto Carlin Work Phone: [facility] Work Phone: 01-23-2022 10:07-0400 Body mass index (BMI) [Ratio] 39.72 kg/m2 Ernesto Carlin Work Phone: [facility] Work Phone: 01-23-2022 10:07-0400 Body surface area Derived from formula 2.03 m2 Ernesto Carlin Work Phone: [facility] Work Phone: 01-23-2022 10:07-0400 Body temperature 98.6 [degF] Ernesto Carlin Work Phone: [facility] Work Phone: 01-23-2022 10:07-0400 Body weight 101.72 kg Ernesto Carlin Work Phone: [facility] Work Phone: 01-23-2022 10:07-0400 Diastolic blood pressure 74 mm[Hg] Ernesto Solorzanol Work Phone: [facility] Work Phone: 01-23-2022 10:07-0400 Heart rate 100 /min Ernesto Solorzanol Work Phone: [facility] Work Phone: 01-23-2022 10:07-0400 SaO2% (BldA) [Mass fraction] 96 % Ernesto Solorzanol Work Phone: [facility] Work Phone: 01-23-2022 10:07-0400 Systolic blood pressure 114 mm[Hg] Ernesto Solorzanol Work Phone: [facility] Work Phone: 01-18-2022 13:52-0400 Body height 162.6 cm Rolan Biats DO Work Phone: [facility] 01-18-2022 13:52-0400 Body weight 101.61 kg Rolan Biats DO Work Phone: [facility] 01-18-2022 13:52-0400 Diastolic blood pressure 83 mm[Hg] Rolan Biats DO Work Phone: [facility] 01-18-2022 13:52-0400 Systolic blood pressure 124 mm[Hg] Rolan Biats DO Work Phone: [facility] 01-08-2022 16:24-0400 Body height 162.6 cm Ernesto Carlin MD Work Phone: [facility] 01-08-2022 16:24-0400 Body temperature 98.91 [degF] Ernesto Carlin MD Work Phone: [facility] 01-08-2022 16:24-0400 Body weight 101.61 kg Ernesto Carlin MD Work Phone: [facility] 01-08-2022 16:24-0400 Diastolic blood pressure 92 mm[Hg] Ernesto Carlin MD Work Phone: [facility] 01-08-2022 16:24-0400 Heart rate 96 /min Ernesto Carlin MD Work Phone: [facility] 01-08-2022 16:24-0400 Systolic blood pressure 136 mm[Hg] Ernesto Carlin MD Work Phone: [facility] 06-19-2021 00:10-0400 Body height 162.6 cm Rolan [...] 134 mm[Hg] Rolan Allen MD Work Phone: [employer] Work Phone: 12-24-2020 01:29-0400 Body Temperature 98.91 [degF] Kenny Miles [employer] Work Phone: 12-24-2020 01:29-0400 BP Diastolic 82 mm[Hg] Kenny Miles [email or web address] Work Phone: 12-24-2020 01:29-0400 BP Systolic 117 mm[Hg] Kenny Miles [employer] Work Phone: 12-24-2020 01:29-0400 Pulse (Heart Rate) 81 /min Kenny Miles [employer] Work Phone: 12-24-2020 01:29-0400 Pulse Oximetry 98 % Kenny [place] [employer] Work Phone: 12-24-2020 01:29-0400 Respiratory Rate 16 /min Kenny Miles [employer] Work Phone: 12-23-2020 21:40-0400 BMI (Body Mass Index) 36.05 kg/m2 Kenny Miles [employer] Work Phone: 12-23-2020 21:40-0400 Body weight 95.25 kg Kenny Miles [employer] Work Phone: 12-23-2020 21:39-0400 Height 162.6 cm Kenny Miles [employer] Work Phone: 08-16-2020 16:43-0500 BMI (Body Mass Index) 34.16 kg/m2 Desiree Casarez [facility] Work Phone: 08-16-2020 16:43-0500 Body Temperature 97.9 [degF] Desiree Casarez [facility] Work Phone: Comment on above: Method: Temporal 08-16-2020 16:43-0500 Body weight 90.27 kg Desiree Casarez [facility] Work Phone: 08-16-2020 16:43-0500 BP Diastolic 82 mm[Hg] Desiree Casarez [facility] Work Phone: Comment on above: Location: LUE; Position: Sitting 08-16-2020 16:43-0500 BP Systolic 124 mm[Hg] Desiree Casarez [facility] Work Phone: Comment on above: Location: LUE; Position: Sitting 08-16-2020 16:43-0500 BSA (Body Surface Area) 1.95 m2 Desiree Casarez [facility] Work Phone: 08-16-2020 16:43-0500 Height 162.56 cm Desiree Casarez [facility] Work Phone: 08-16-2020 16:43-0500 Pulse (Heart Rate) 85 /min Desiree Casarez [facility] Work Phone: 08-16-2020 16:43-0500 Pulse Oximetry 98 % Desiree Casarez [facility] Work Phone: Comment on above: Source: 08-16-2020 16:43-0500 Respiratory Rate 18 /min Desiree Casarez [facility] Work Phone: 06-04-2019 06:07-0400 Body Temperature 98.01 [degF] Christina Juan Carlos [employer], [place] 06-04-2019 06:07-0400 BP Diastolic 82 mm[Hg] Christina [facility] [place] 06-04-2019 06:07-0400 BP Systolic 114 mm[Hg] Christina Juan [facility] [place] 06-04-2019 06:07-0400 Pulse (Heart Rate) 90 /min Christina Juan [facility] [place] 06-04-2019 06:07-0400 Pulse Oximetry 96 % Christina Juan Carlos [facility] [place] 06-04-2019 06:07-0400 Respiratory Rate 18 /min Christina Juan Carlos [employer] 06-02-2019 17:08-0400 BMI (Body Mass Index) 26.61 kg/m2 [facility] [place] 06-02-2019 17:08-0400 Body weight 70.31 kg Christina Rangel [facility] , [place] 06-02-2019 17:08-0400 Height 162.6 cm Christina Rangel [facility] , [place] 05-29-2019 09:56-0400 BMI (Body Mass Index) 26.61 kg/m2 [facility] [place] 05-29-2019 09:56-0400 Body Temperature 97.7 [degF] Mio [facility] [place] 05-29-2019 09:56-0400 Body weight 70.31 kg Mio [facility] , [place] 05-29-2019 09:56-0400 BP Diastolic 96 mm[Hg[facility] [place] 05-29-2019 09:56-0400 BP Systolic 145 mm[Hg[facility] [place] 05-29-2019 09:56-0400 Height 162.6 cm Mio [facility] [place] 05-29-2019 09:56-0400 Pulse (Heart Rate) 98 /min Mio Park [facility], [place] 05-29-2019 09:56-0400 Pulse Oximetry 100 % Mio [facility] , [place] 05-29-2019 09:56-0400 Respiratory Rate 16 /min Mio Park [facility], [place] 05-29-2019 05:54-0400 BP Diastolic 98 mm[Hg] [facility] [place] 05-29-2019 05:54-0400 BP Systolic 142 mm[Hg] [facility] , 05-29-2019 05:54-0400 Pulse (Heart Rate) 89 /min [facility] [place] 05-29-2019 05:54-0400 Pulse Oximetry 100 % [facility] , 05-29-2019 05:54-0400 Respiratory Rate 16 /[facility] [place] 05-28-2019 19:04-0400 BMI (Body Mass Index) 25.06 kg/m2 Ese [facility], [place] 05-28-2019 19:04-0400 Body Temperature 98.2 [degF] Ese [facility], [place] 05-28-2019 19:04-0400 Body weight 72.58 kg Ese Bliss [facility] , [place] 05-28-2019 17:30-0400 Height 170.2 cm [facility] [place] Encounters Encounter Date Encounter Type Care Provider Facility Start: 07-26-2025 End: 07-26-2025 ambulatory Hui Podlogar RF TECHNICIAN Facility:[facility] Start: 04-04-2025 End: 04-04-2025 Refill Hui Podlogar 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 Work Phone: [facility] [place] Comment on above: Refill Request Start: 03-28-2025 End: 05-24-2025 ambulatory Hui Podlogar 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 Work Phone: [facility] [place] Comment on above: Medicine Start: 03-28-2025 End: 03-28-2025 Telephone encounter Hui Podlogar 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 Work Phone: [facility] [place] Start: 03-25-2025 End: 03-25-2025 Follow-up encounter Rachel Rey MA [facility] Start: 03-22-2025 End: 03-22-2025 Patient encounter procedure Hui Podlogar 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 Work Phone: [facility] [place] Comment on above: Adult ADHD (Primary Dx) Start: 03-22-2025 End: 03-22-2025 ambulatory HUI PODLOGAR Facility:[facility] Start: 03-14-2025 End: 03-14-2025 Chart abstracting Brenton Edwards [facility] Work Phone: [facility] Start: 03-09-2025 End: 03-09-[address] Desean Rodriguez MD -[facility] Work Phone: Start: 03-09-2025 End: 03-09-[address] Tato Prieto DO Work Phone: [facility] Work Phone: Start: 03-03-2025 Encounter for other preprocedural examination Desean Rodriguez [facility] Start: 02-24-2025 Non-patient / Non-visit Dr. Sofía MARADIAGA -[facility] Start: 02-23-2025 Non-patient / Non-visit Dr. Sofía MARADIAGA -[facility] Start: 02-23-2025 End: 02-23-2025 ambulatory Hui Valdes NP Facility:[facility] Start: 02-23-2025 End: 02-23-2025 Non-patient / Non-visit Dr. Meredith Peralta MD -[place] [facility] Work Phone: Start: 02-22-2025 Non-patient / Non-visit Dr. Ashley Garcia MD -[facility] Start: 02-22-2025 ambulatory Jerrell Concepcion lity:[facility] Start: 02-22-2025 End: 02-24-2025 Evaluation and management of inpatient Dr. Jerrell Garcia MD -[facility] Work Phone: Start: 02-21-2025 End: 02-21-2025 Emergency department patient visit Dr. Tato Prieto DO Work Phone: -Emergency Department Work Phone: Start: 02-14-2025 ambulatory Desean Rodriguez Facility :[facility] Start: 02-14-2025 Non-patient / Non-visit Dr. Sofía MARADIAGA -[facility] Start: 02-14-2025 End: 02-14-2025 Admission to same day surgery center Dr. Desean Rodriguez MD [facility] Start: 02-14-2025 End: 02-14-[address] Tato Prieto DO Work Phone: [facility] Work Phone: Start: 02-02-2025 End: 02-02-[address] Desean Rodriguez MD -[facility] Work Phone: Start: 02-02-2025 End: 02-02-[address] Tato Prieto DO Work Phone: [facility] Work Phone: Start: 01-15-2025 End: 01-15-2025 [...] Start: 12-31-2024 End: 12-31-2024 ambulatory HUI PODLOGYASHIRA Facility:[facility] Start: 12-28-2024 End: 12-29-2024 Telephone encounter Temitope Bear APRN.CNM Work Phone: OB/Gynecology Comment on above: Orders Start: 10-26-2024 End: 12-26-2024 Follow-up encounter Temitope Bear APRN.CNM Work Phone: OB/Gynecology Start: 10-18-2024 End: 10-18-2024 ambulatory TEMITOPE BEAR Facility:[facility] Start: 10-18-2024 End: 10-18-2024 Patient encounter [...] encounter status Temitope Bear APRN.CNM Work Phone: [facility] Start: 10-13-2024 End: 10-14-2024 Get Medical Advice Hui Valdes APRN.CNP Work Phone: [facility] [place] Comment on above: Refill Refill Request Start: 08-13-2024 End: 08-13-2024 Telephone encounter No Pcp ARTIFICIAL SNOW MAKING MACHINE OPERATOR [facility] Start: 07-27-2024 End: 07-27-2024 ambulatory Hui Podlogar JAZ.TIMBO Work Phone: [facility] [place] Comment on above: Hydrocortisone Start: 07-27-2024 End: 07-27-2024 E-mail encounter from caregiver Hui Valdes APRN.TIMBO Work Phone: [facility] [place] Start: 07-26-2024 End: 07-27-2024 ambulatory Hui Podlogar 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 Work Phone: [facility] [place] Comment on above: Medication Start: 07-08-2024 End: 07-12-2024 ambulatory Hui Podlogar ARTIFICIAL SNOW MAKING MACHINE OPERATOR.TIMBO Work Phone: [facility] [place] Comment on above: Depression Start: 07-05-2024 End: 07-05-2024 Patient encounter procedure Hui Ortizlogyashira SEBASTIAN.ASSISTANT HEAD CASHIER Work Phone: [facility] [place] Comment on above: Encounter for [...] End: 07-05-2024 Patient encounter status Hui Ortizlogar 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 Work Phone: [facility] Start: 07-05-2024 End: 07-05-2024 ambulatory HUI PODLOGAR Facility:[facility] Start: 07-05-2024 Encounter for genera l adult medical examination without abnormal findings HUI VALDES [facility] Start: 12-30-2023 ambulatory Ernesto Sanchez Work Phone: [facility] Comment on above: Yeast infection Start: 11-07-2023 End: 11-07-2023 ambulatory ERNESTO CARLIN Facility:[facility] Start: 07-01-2023 End: 07-01-2023 Patient encounter procedure Ernesto Carlin MD Work Phone: Family Medicine Comment on above: Routine physical exa mination (Primary Dx); Migraine without aura and without status migrainosus, not intractable; Hyperlipidemia, mixed; Obesity, Class I, BMI 30-34.9; Ventral hernia without obstruction or gangrene; Onychomycosis; External hemorrhoid; Encounter for immunization Start: 07-01-2023 End: 07-01-2023 Physical examination Ernesto Carlin MD Work Phone: [facility] Work Phone: Start: 03-26-2023 End: 03-26-2023 ambulatory ERNESTO CARLIN Facility:[facility] Start: 03-26-2023 End: 03-26-2023 Patient encounter procedure Jessenia Grace MD Work Phone: [facility] Comment on above: Gastroesophageal ref lux disease without esophagitis (Primary Dx); Class 1 obesity with body mass index (BMI) of 34.0 to 34.9 in adult, unspecified obesity type, unspecified whether serious comorbidity present; Ventral hernia without obstruction or gangrene Start: 01-17-2023 Encounter for other preprocedural examination JESSENIA GRACE [facility] Start: 01-17-2023 ambulatory JESSENIA GRACE Facility: [facility] Start: 01-17-2023 End: 07-01-2023 Patient encounter status Jessenia Grace MD Work Phone: [facility] Start: 01-17-2023 End: 01-17-2023 Subsequent hospital visit by physician Jessenia Grace MD Work Phone: [facility] Comment on above: Gastroesophageal ref lux disease, unspecified whether esophagitis present [K21.9] Start: 01-01-2023 End: 01-01-2023 ambulatory ERNESTO CARLIN Facility:[facility] Start: 01-01-2023 End: 01-01-2023 Patient encounter procedure Jessenia Grace MD Work Phone: [facility] Comment on above: Ventral hernia witho ut obstruction or gangrene (Primary Dx); Class 2 severe obesity with serious comorbidity and body mass index (BMI) of 36.0 to 36.9 in adult, unspecified obesity type (HCC); Gastroesophageal reflux disease, unspecified whether esophagitis present; Hypertension, unspecified type Start: 01-01-2023 Telephone encounter Jessenia parmar MD Work Phone: [facility] Comment on above: Appointment (EGD) Start: 12-25-[address] Ernesto Carlin [facility] ty:[id number] Start: 12-10-2022 End: 12-10-2022 Patient encounter procedure Ernesto Carlin MD Work Phone: Family Medicine Comment on above: Hypertension, essent ial (Primary Dx); History of gestational diabetes; Obesity, Class II, BMI 35-39.9; GERD without esophagitis; PUD (peptic ulcer disease); External hemorrhoid Start: 12-10-2022 End: 12-10-2022 Patient encounter procedure Alysha Ruff APRN.CNP Work Phone: [facility] Obstetrics & Gynecology Comment on above: Encounter for routin e checking of intrauterine contraceptive device (IUD) (Primary Dx) Start: 11-07-2022 Patient encounter procedure [facility] Provider [facility] Start: 11-01-2022 End: 11-01-2022 Patient encounter procedure Alysha Ruff APRN.ASSISTANT HEAD CASHIER Work Phone: [facility] Obstetrics & Gynecology Comment on above: Encounter for IUD in sertion (Primary Dx); Routine screening for STI (sexually transmitted infection) Start: 10-23-2022 End: 10-23-2022 Patient encounter procedure Tricia Rangel MD Work Phone: [facility] Obstetrics & Gynecology Comment on above: care and examination (Primary Dx); examination or test, unconfirmed Start: 10-22-2022 Telephone encounter [facility] Provider [facility] Comment on above: Returning Patient's [...] Migraine Start: 09-04-2022 End: 09-04-2022 ambulatory [facility] [place] Work Phone: [facility] Obstetrics & Gynecology Comment on above: Nst (Non Stress Test ) Start: 09-04-2022 End: 09-04-2022 Patient encounter procedure Nst Respite Worker [facility] [email or web address] Work Phone: [employer] [place] Comment on above: 37 weeks gestation o f (Primary Dx); Preexisting hypertension complicating , antepartum; Diet controlled gestational diabetes mellitus (GDM) in second trimester; 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ng , antepartum, unspecified trimester; Group B Streptococcus carrier, antepartum Start: 08-30-2022 End: 08-30-2022 Patient encounter procedure Tato Browning MD Work Phone: [facility] Obstetrics & Gynecology Comment on above: Preexisting hyperten ling complicating , antepartum (Primary Dx); 36 weeks gestation of ; Gestational diabetes mellitus, class A1; 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ng , antepartum, unspecified trimester Start: 08-30-2022 End: 08-30-2022 Patient encounter procedure Ultrasound Respite Worker [facility] Work Phone: [facility] Obstetrics & Gynecology Comment on above: AMA (advanced matern al age) multigravida 35+, third trimester; Obesity complicating , third trimester Start: 08-23-2022 End: 08-23-2022 ambulatory [facility] [place] Work Phone: [facility] Obstetrics & Gynecology Comment on above: Nst (Non Stress Test ) Start: 08-23-2022 End: 08-23-2022 Patient encounter procedure Nst Respite Worker [facility] Work Phone: [employer] [place] Comment on above: Preexisting hyperten ling complicating , antepartum (Primary Dx); 35 weeks gestation of ; Gestational diabetes mellitus, class A1 Start: 08-22-2022 Refill Guanakito Surac e PA-C Work Phone: [facility] Obstetrics & Gynecology Comment on above: Refill Request Start: 08-16-2022 Refill Guanakito Surac e PA-C Work Phone: [facility] Obstetrics & Gynecology Comment on above: Refill Request Start: 08-15-2022 End: 08-15-2022 ambulatory [facility] [place] Work Phone: [facility] Obstetrics & Gynecology Comment on above: Nst (Non Stress Test ) Start: 08-15-2022 End: 08-15-2022 Patient encounter procedure Nst Respite Worker [facility] [email or web address] Work Phone: [employer] [place] Comment on above: Preexisting hyperten ling complicating , antepartum (Primary Dx); 34 weeks gestation of ; Gestational diabetes mellitus, class A1 Start: 08-06-2022 End: 08-06-2022 ambulatory [facility] [place] Work Phone: [facility] Obstetrics & Gynecology Comment on above: Nst (Non Stress Test ) Start: 08-06-2022 End: 08-06-2022 Patient encounter procedure Nst Respite Worker [facility] [email or web address] Work Phone: [employer] [place] Comment on above: AMA (advanced matern al age) multigravida 35+, third trimester (Primary Dx); Obesity complicating , third trimester; Gestational diabetes mellitus, class A1; Preexisting hypertension complicating , antepartum; 33 weeks gestation of ; Non-stress test reactive Start: 08-02-2022 End: 08-02-2022 ambulatory [facility] [place] Work Phone: [facility] Ob[facility]etrics & Gynecology Comment on above: Nst (Non Stress Test ) Start: 08-02-2022 End: 08-02-2022 Patient encounter procedure Nst Respite Worker [facility] Work Phone: [facility] Comment on above: Preexisting hyperten ling complicating , antepartum (Primary Dx); 32 weeks gestation of ; GDM (gestational diabetes mellitus), class A1 Start: 07-31-2022 Refill Guanakito Surac e PA-C Work Phone: [facility] Obstetrics & Gynecology Comment on above: Refill Request Start: 07-19-2022 End: 07-19-2022 Patient encounter procedure Guanakito Surace PA-C Work Phone: [facility] Obstetrics & Gynecology Comment on above: Gestational diabetes mellitus, class A1 (Primary Dx); Obesity complicating , third trimester; AMA (advanced maternal age) multigravida 35+, third trimester; Preexisting hypertension complicating , antepartum; 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ng , antepartum, unspecified trimester; 30 weeks gestation of Gestational diabetes mellitus, class A1 Start: 07-18-2022 Refill Guanakito Surac e PA-C Work Phone: [facility] Obstetrics & Gynecology Comment on above: Refill Request Start: 07-05-2022 End: 07-05-2022 Patient encounter procedure Guanakito Surace PA-C Work Phone: [facility] Obstetrics & Gynecology Comment on above: Gestational diabetes mellitus, class A1 (Primary Dx); 28 weeks gestation of ; Need for tilpsaznug-cxifshm-svyaadzpb (Tdap) vaccine; Obesity complicating , third trimester; Constipation, unspecified constipation type; 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ng , antepartum, unspecified trimester; AMA (advanced maternal age) multigravida 35+, third trimester; Preexisting hypertension complicating , antepartum Start: 07-05-2022 End: 07-05-[address] Work Phone: [facility] [place] Comment on above: Diet controlled gest ational diabetes mellitus (GDM) in second trimester (Primary Dx) GDM (gestational mitch betes mellitus), class A1; Diet controlled gestational diabetes mellitus (GDM) in second trimester Start: 07-05-2022 End: 07-05-2022 Telemedicine consultation with patient Nurse Diabetes [facility] Start: 06-28-2022 Refill Guanakito Surac e PA-C Work Phone: [facility] Obstetrics & Gynecology Comment on above: Refill Request Start: 06-28-2022 Telephone encounter Guanakito S urace PA-C Work Phone: [facility] Obstetrics & Gynecology Comment on above: Results Start: 06-25-2022 Telephone encounter Guanakito S urace PA-C Work Phone: [facility] Obstetrics & Gynecology Comment on above: Results Start: 06-21-2022 End: 06-21-2022 Patient encounter procedure Guanakito Surace PA-C Work Phone: [facility] Obstetrics & Gynecology Comment on above: AMA (advanced matern al age) multigravida 35+, second trimester (Primary Dx); 26 weeks gestation of ; 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ng , antepartum, unspecified trimester; Obesity complicating , first trimester; Preexisting hypertension complicating , antepartum; History of drug use Start: 06-19-2022 Refill Guanakito Surac e PA-C Work Phone: [facility] Obstetrics & Gynecology Comment on above: Refill Request Start: 06-10-2022 Refill Ольга montanez APRN.CNP Work Phone: [facility] Obstetrics & Gynecology Comment on above: Refill Request Start: 05-19-2022 Refill Guanakito Surac e PA-C Work Phone: [facility] Obstetrics & Gynecology Comment on above: Refill Request Start: 05-19-2022 Refill Guanakito Surac e PA-C Work Phone: [facility] Obstetrics & Gynecology Comment on above: Refill Request Start: 05-10-2022 End: 05-10-2022 Patient encounter procedure Guanakito Surace PA-C Work Phone: [facility] Obstetrics & Gynecology Comment on above: Preexisting hyperten ling complicating , antepartum (Primary Dx); AMA (advanced maternal age) multigravida 35+, second trimester; Obesity complicating , second trimester; Headache in , second trimester; 20 weeks gestation of Start: 05-07-2022 End: 05-07-2022 Patient encounter procedure Us Rm2 Respite Worker Ag M[facility] Work Phone: [facility] Maternal Medicine Comment on above: Obesity complicating , second trimester (Primary Dx); Encounter for anatomic survey; 20 weeks gestation of Start: 05-06-2022 End: 05-06-2022 Patient encounter procedure Ernesto Carlin MD Work Phone: Family Medicine Comment on above: PUD (peptic ulcer di sease) (Primary Dx); GERD without esophagitis; Preexisting hypertension complicating , antepartum Start: 05-02-2022 Refill Ольга montanez APRN.CNP Work Phone: [facility] Obstetrics & Gynecology Comment on above: Refill Request Start: 04-28-2022 ambulatory Ernesto Sanchez Work Phone: Family Medicine Comment on above: Ulcers Start: 04-24-2022 Refill Guanakito Bernabe e PA-C Work Phone: [facility] Obstetrics & Gynecology Comment on above: [...] encounter procedure Guanakito Angel PA-C Work Phone: [facility] Obstetrics & Gynecology Comment on above: [...] Start: 03-22-2022 Refill Ольга L Klutt s 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 Work Phone: [facility] Obstetrics & Gynecology Comment on above: Refill Request Start: 03-11-2022 Refill Tato Jaffe MD Work Phone: [facility] Obstetrics & Gynecology Comment on above: Refill Request Start: 02-20-2022 ambulatory Ольга L Klutt s 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 Work Phone: [facility] Obstetrics & Gynecology Comment on above: Medication Start: 02-14-2022 End: 02-14-2022 Patient encounter procedure Tato Browning MD Work Phone: [facility] Obstetrics & Gynecology Comment on above: [...] 15 minutes Ernesto Carlin Work Phone: [facility] Work Phone: Start: 01-21-2022 Telephone encounter Rolan grigsby DO Work Phone: [facility] Obstetrics and Gynecology Comment on above: Orders; Results Start: 01-18-2022 End: 01-18-2022 Patient encounter procedure Rolan Dexter DO Work Phone: [facility] Obstetrics & Gynecology Comment on above: Women's annual routi ne gynecological examination (Primary Dx); Routine cervical smear; Secondary amenorrhea Start: 01-08-2022 End: 01-08-2022 Patient encounter procedure Ernesto Carlin MD Work Phone: [facility] Comment on above: Hypertension, essent ial (Primary Dx); Bronchitis Start: 01-07-2022 Refill Ernesto Sanchez Work Phone: [facility] Comment on above: Refill Request Start: 06-18-2021 End: 06-19-2021 Emergency department patient visit Rolan Allen MD Work Phone: [facility] Comment on above: Acute bronchitis, un specified organism (Primary Dx); Acute serous otitis media of left ear, recurrence not specified; Acute diffuse otitis externa of left ear Start: 12-23-2020 End: 12-24-2020 Emergency department patient visit Kenny Miles Work Phone: [facility] Emergency Dept Comment on above: Less than 8 weeks ge station of (Primary Dx); Epigastric pain Start: 08-16-2020 Patient encounter procedure Desiree Casarez [facility] Work Phone: Start: 08-05-2019 End: 08-05-2019 Emergency department patient visit [facility] Start: 08-02-2019 Patient encounter procedure Desiree Casarez [facility] Work Phone: Start: 07-09-2019 End: 07-09-2019 Subsequent hospital visit by physician Kacie Short Work Phone: [facility] Comment on above: Arrived Start: 07-07-2019 End: 07-07-2019 Subsequent hospital visit by physician Kacie Short Work Phone: [facility] Comment on above: Arrived Start: 07-06-2019 End: 07-06-2019 Subsequent hospital visit by physician Kacie Short Work Phone: [facility] Comment on above: Arrived Start: 07-05-2019 End: 07-05-2019 Subsequent hospital visit by physician Kacie Short Work Phone: [facility] [place] [facility] Comment on above: Arrived Start: 07-02-2019 End: 07-02-2019 Subsequent hospital visit by physician Kacie Short Work Phone: [facility] [place] [facility] Comment on above: Arrived Start: 06-30-2019 End: 06-30-2019 Subsequent hospital visit by physician Kacie Short Work Phone: [facility] [place] [facility] Comment on above: Arrived Start: 06-28-2019 End: 06-28-2019 Subsequent hospital visit by physician Kacie Short Work Phone: [facility] [place] [facility] Comment on above: Arrived Start: 06-25-2019 Subsequent hospital visit by physician Kacie Short Work Phone: [facility] [place] [facility] Start: 06-23-2019 Subsequent hospital visit by physician Kacie Short Work Phone: [facility] [place] [facility] Start: 06-21-2019 End: 06-21-2019 Subsequent hospital visit by physician Kacie Short Work Phone: [facility] [place] [facility] Comment on above: Arrived Start: 06-18-2019 End: 06-18-2019 Subsequent hospital visit by physician Kacie Short Work Phone: [facility] [place] Comment on above: Arrived Start: 06-16-2019 End: 06-16-2019 Subsequent hospital visit by physician Kacie Short Work Phone: [facility] [place] [facility] Comment on above: Arrived Start: 06-14-2019 End: 06-14-2019 Subsequent hospital visit by physician Kacie Short Work Phone: [facility] [place] [facility] Comment on above: Arrived Start: 06-11-2019 Subsequent hospital visit by physician Kacie Short Work Phone: [facility] Start: 06-09-2019 Subsequent hospital visit by physician Kacie Short Work Phone: [employer] [place] [facility] Start: 06-07-2019 End: 06-07-2019 Subsequent hospital visit by physician Kacie Short Work Phone: [employer] [facility] Comment on above: Arrived Start: 06-04-2019 Subsequent hospital visit by physician Kacie Short Work Phone: [facility] [facility] Start: 06-02-2019 Subsequent hospital visit by physician Mihai [facility] Start: 05-31-2019 Patient encounter procedure [facility] [place] Start: 05-31-2019 Subsequent hospital visit by physician Mihai [facility] Start: 05-29-2019 Patient encounter procedure [facility], [place] Start: 05-29-2019 End: 05-29-2019 Emergency department patient visit Mio Park Work Phone: [facility] Emergency Dept Comment on above: Altered mental statu s, unspecified altered mental status type (Primary Dx); Substance abuse (HCC); Depression, unspecified depression type Start: 05-28-2019 End: 05-29-2019 Emergency department patient visit Ese Bliss Work Phone: [facility] Emergency Dept Comment on above: Polysubstance abuse (HCC) (Primary Dx); Altered mental status, unspecified altered mental status type Start: 05-28-2019 Subsequent hospital visit by physician Kacie Short Work Phone: [employer] [place] [facility] Start: 05-26-2019 End: 05-26-2019 Subsequent hospital visit by physician Kacie Short Work Phone: [employer] [place] [facility] Comment on above: Arrived Start: 05-24-2019 End: 05-24-2019 Subsequent hospital visit by physician Kacie Short Work Phone: [employer] [facility] Comment on above: Arrived Start: 05-21-2019 End: 05-21-2019 Subsequent hospital visit by physician Kacie Short Work Phone: [employer] [facility] Comment on above: Arrived Start: 05-20-2019 End: 05-20-2019 Subsequent hospital visit by physician Kacie WilcoxVeedMe Work Phone: [employer] [facility] Comment on above: Arrived Start: 05-14-2019 End: 05-14-2019 Subsequent hospital visit by physician Kacie WilcoxVeedMe Work Phone: [employer] [facility] Start: 05-10-2019 Subsequent hospital visit by physician Kacie WilcoxVeedMe Work Phone: [employer] [facility] Start: 05-07-2019 End: 05-07-2019 Subsequent hospital visit by physician Kacie WilcoxVeedMe Work Phone: [employer] [facility] Comment on above: Arrived Start: 04-30-2019 Subsequent hospital visit by physician Kacie WilcoxVeedMe Work Phone: [employer] [facility] Start: 04-29-2019 Telephone encounter Mihai [facility] Comment on above: Scheduling Start: 04-28-2019 Subsequent hospital visit by physician Mihai RE[facility]O [facility] Start: 04-26-2019 Subsequent hospital visit by physician Kacie WilcoxVeedMe Work Phone: [employer] [facility] Start: 04-23-2019 End: 04-23-2019 Subsequent hospital visit by physician Kacie Short Work Phone: [employer] [facility] Comment on above: Arrived Start: 04-21-2019 Subsequent hospital visit by physician Mihai RE[facility] Comment on above: Canceled (Other) Start: 03-08-2019 End: 03-08-2019 Evaluation and management of inpatient UNKNOWN AA UNKNOWN PCP [facility] Start: 07-10-2018 End: 12-08-2019 Subsequent hospital visit by physician Zi Leonard Work Phone: [facility] Start: 06-06-2017 End: 06-07-2017 Emergency department patient visit [facility] Start: 04-19-2017 End: 04-19-2017 Emergency department patient visit [facility] Procedures Date Procedure Procedure Detail Performing [...] 11-01-2022 Insertion intrauterine device iud Alysha Ruff 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 Work Phone: Start: 08-30-2022 Urnls dip stick/tablet rgnt auto w/o microscopy Tato Browning MD Work Phone: Start: 08-30-2022 Us preg uterus after 1st trimest 09/15 gestation Yael Leslie Mahmood ARTIFICIAL SNOW MAKING MACHINE OPERATOR.CNM Work Phone: Start: 08-23-2022 Urnls dip stick/tablet [...] 2) Andersen gles Vaccine (1 of 2) [place], [place] Start: 07-05-2032 Urine microalbumin profile [facility] Start: 06-29-2031 Urine microalbumin profile DTAP,TDAP,TD (3 - Td or Tdap) [facility] Start: 07-07-2028 DTaP/Tdap/Td vaccine (2 - Td or Tdap) DTaP/Tdap/Td vaccine (2 - Td or Tdap) [facility] Work Phone: Start: 07-07-2028 DTaP/Tdap/Td vaccine (2 - Td) DTaP/Tdap/Td vaccine (2 - Td) [place], [place] Start: 10-18-2027 Screening for malign ant neoplasm of cervix Cervical Cancer Screening [facility] Start: 12-31-2025 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 Polisher oneal Disease Visit Annual PCP Team Chronic Disease Visit [facility] Start: 12-31-2025 BP Controlled (<130/80) BP Controlle d (<130/80) [facility] Start: 10-18-2025 BP Controlled (<130/80) BP Controlle d (<130/80) [facility] Start: 10-18-2025 End: 10-18-2025 Patient encounter procedure 10/18/2025 12:50 PM EST Appointment Mammogram [address] [place] [address] Mammogram Start: 10-18-2025 End: 10-18-2025 Patient encounter procedure 10/18/2025 10:45 AM EST Office Visit OB/Gynecology [address] [place] [address] Temitope Bear APRN.CNM [address] [place] [address] Annual OB/Gynecology Comment on above: Annual Start: 07-08-2025 End: 07-08-2025 Patient encounter procedure 07/08/2025 11:20 AM EDT Office Visit [facility] [place] [address] [place] [address] Hui Valdes APRN.ASSISTANT HEAD CASHIER [address] [place] [address] Physical Family [facility] [place] Comment on above: Physical Start: 07-05-2025 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 Polisher oneal Disease Visit Annual PCP Team Chronic Disease Visit [facility] Start: 07-05-2025 Anxiety Screening Anxiety Screening [facility] Start: 07-05-2025 Depression Screening Depression Scre ening [facility] Start: 06-17-2025 End: 06-17-2025 Patient encounter procedure 06/17/2025 11:40 AM EDT Office Visit [facility] [place] [address] [place] [address] Hui Valdes APRN.ASSISTANT HEAD CASHIER [address] [place] [address] Physical [facility] [place] Comment on above: Physical Start: 05-16-2025 Influenza vaccination Influenza Vacc ine (#1) [facility] Start: 04-22-2025 End: 04-22-2025 Patient encounter procedure 04/22/2025 1:00 PM EDT Office Visit [facility] [place] [address] [place] [address] PodlogHui ac APRN.ASSISTANT HEAD CASHIER [address] [place] [address] Follow up [facility] [place] Comment on above: Follow up Start: 03-22-2025 End: 06-21-2025 QUANTITATIVE TOXICOLOGY PANEL, URINE [facility] Work Phone: Comment on above: Expected: 03/22/2025 , Expires: 06/21/2025 Start: 02-24-2025 Patient discharge [facility] Start: 02-22-2025 Ambulation without limitation [facility] Start: 02-22-2025 End: 02-22-2025 Following clinical pathway protocol [facility] Start: 02-22-2025 Vital signs measurements [facility] Start: 02-22-2025 End: 02-23-2025 [facility] Start: 02-22-2025 Admission procedure [facility] Start: 02-22-2025 Hospital admission, emergency, from emergency room, medical nature [facility] Start: 02-21-2025 [facility] Start: 02-21-2025 Assay of lactate ASSAY OF LACTIC ACI D [facility] Start: 02-21-2025 Assay of lipase ASSAY OF LIPASE [facility] Start: 02-21-2025 Blood count complete auto&auto difrntl wbc COMPLETE CBC W/AUTO DIFF WBC [facility] Start: 02-21-2025 Comprehensive metabo lic panel COMPREHEN METABOLIC PANEL [facility] Start: 02-21-2025 Ct abdomen & pelvis w/contrast material CT ABD & PELVIS W/CONTRAST [facility] Start: 02-21-2025 Emergency department visit low/moder severity EMERGENCY DEPT VISIT SF MDM [facility] Start: 02-21-2025 Iv infusion hydratio n each additional hour HYDRATE IV INFUSION ADD-ON [facility] Start: 02-21-2025 Ther proph/dx njx iv push single/1st sbst/drug THER/PROPH/DIAG INJ IV PUSH [facility] Start: 02-21-2025 Therapeutic injectio n iv push each new drug TX/PRO/DX INJ NEW DRUG ADDON [facility] Start: 02-21-2025 Urnls dip stick/tabl et reagent auto microscopy URINALYSIS AUTO W/SCOPE [facility] Start: 02-14-2025 Patient discharge [facility] Start: 02-14-2025 Anes lwr abd ventral & incisional hernia repair ANESTH REPAIR OF HERNIA [facility] Start: 02-14-2025 RPR AA HRN 1ST 3-10 NCR/STRN RPR AA HRN 1ST 3-10 NCR/STRN [facility] Start: 02-14-2025 End: 02-14-2025 Patient encounter procedure 02/14/2025 9:00 AM EDT Office Visit OB/Gynecology [address] [place] [address] Frances Baxter MD [address] [place] [address] REMOVE INTRAUTERINE DEVICE OB/Gynecology Comment on above: REMOVE INTRAUTERINE DEVICE Start: 01-18-2025 HPV TESTING HPV TESTING [facility] Start: 01-18-2025 PAP TESTING PAP TESTING [facility] Start: 01-18-2025 Screening for malign ant neoplasm of cervix [facility] Start: 01-15-2025 [facility] Start: 01-03-2025 End: 01-03-2025 Patient encounter procedure 01/03/2025 1:20 PM EDT Office Visit [facility] [place] [address] [place] [address] Hui Vadles APRN.ASSISTANT HEAD CASHIER [address] [place] [address] 6 month follow up [facility] Comment on above: 6 month follow up Start: 12-31-2024 End: 12-31-2024 Patient encounter procedure 12/31/2024 11:40 AM EDT Office Visit Family [facility] [place] [address] [place] [address] Hui Valdes APRN.ASSISTANT HEAD CASHIER [address] [place] [place] [address] 6 month follow up [facility] Comment on above: 6 month follow up Start: 11-07-2024 BP Controlled (<130/80) BP Controlle d (<130/80) [facility] Start: 10-18-2024 End: 01-17-2025 Hepatitis B virus surface Ag [Presence] in Serum [facility] Comment on above: Expected: 10/18/2024 , Expires: 01/17/2025 Start: 10-18-2024 End: 01-17-2025 Hepatitis C virus Ab [Presence] in Serum [facility] Comment on above: Expected: 10/18/2024 , Expires: 01/17/2025 Start: 10-18-2024 End: 01-17-2025 HIV 1+2 Ab [Presence] in Serum or Plasma by Immunoassay [facility] Comment on above: Expected: 10/18/2024 , Expires: 01/17/2025 Start: 10-18-2024 End: 01-17-2025 SYPHILIS TREPONEMAL W/REFLEX [facility] Comment on above: Expected: 10/18/2024 , Expires: 01/17/2025 Start: 10-15-2024 End: 10-15-2024 Patient encounter procedure 10/15/2024 7:30 AM EST Office Visit OB/Gynecology [address] [place] [address] Sonya Darden APRN.ASSISTANT HEAD CASHIER [address] [place] [address] Encounter for screening for human papillomavirus (HPV) [Z11.51] OB/Gynecology Comment on above: Encounter for screen ing for human papillomavirus (HPV) [Z11.51] Start: 10-03-2024 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 Polisher oneal Disease Visit Annual PCP Team Chronic Disease Visit [facility] Start: 10-03-2024 BP Controlled (<130/80) BP Controlle d (<130/80) [facility] Start: 09-27-2024 End: 09-27-2024 Patient encounter procedure 09/27/2024 11:00 AM EST Office Visit Neurology [address] [place], [place] [id number] Coral Olsen DO [address] [place] [address] [facility] Comment on above: Migraine Start: 08-30-2024 End: 08-30-2024 Patient encounter procedure 08/30/2024 10:30 AM EST Office Visit OB/Gynecology [address] [place] [address] Sonya Darden, 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 [address] [place] [address] Encounter for screening for human papillomavirus (HPV) [Z11.51] OB/Gynecology Comment on above: Encounter for screen ing for human papillomavirus (HPV) [Z11.51] Start: 08-24-2024 End: 08-24-2024 Patient encounter procedure 08/24/2024 1:30 PM EST Office Visit OB/Gynecology [address] [place] [address] Sonya Darden, 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 [address] [place] [address] Encounter for screening for human papillomavirus (HPV) [Z11.51] OB/Gynecology Comment on above: Encounter for screen ing for human papillomavirus (HPV) [Z11.51] Start: 07-05-2024 End: 10-04-2024 CBC W Auto Differential panel - Blood COMPLETE BLOOD COUNT AND DIFFERENTIAL Lab Routine Encounter for medical examination to establish care Expected: 07/05/2024, Expires: 10/04/2024 [facility] Work Phone: Comment on above: Expected: 07/05/2024 , Expires: 10/04/2024 Start: 07-05-2024 End: 10-04-2024 Comprehensive metabolic 2000 panel - Serum or Plasma COMPREHENSIVE METABOLIC PANEL Lab Routine Encounter for medical examination to establish care Expected: 07/05/2024, Expires: 10/04/2024 [facility] Comment on above: Expected: 07/05/2024 , Expires: 10/04/2024 Start: 07-05-2024 End: 10-04-2024 Lipid 1996 panel - Serum or Plasma LIPID PANEL BASIC Lab Routine Encounter for medical examination to establish care Expected: 07/05/2024, Expires: 10/04/2024 [facility] Comment on above: Expected: 07/05/2024 , Expires: 10/04/2024 Start: 07-01-2024 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 oneal Disease Visit Annual PCP Team Chronic Disease Visit [facility] Start: 07-01-2024 Covid-19 Vaccine () Covid-19 Vaccine () [facility] Comment on above: Postponed from 05/16 (Declined at this time) Start: 05-16-2024 Covid-19 Vaccine () Covid-19 Vaccine () [facility] Start: 03-26-2024 BP CONTROLLED (<130/80) BP CONTROLLE D (<130/80) [facility] Start: 01-02-2024 BP CONTROLLED (<130/80) BP CONTROLLE D (<130/80) [facility] Start: 12-11-2023 ANNUAL PCP TEAM CLINICAL MANAGER ONEAL DISEASE VISIT ANNUAL PCP TEAM CHRONIC DISEASE VISIT [facility] Start: 10-08-2023 ANNUAL PCP TEAM CLINICAL MANAGER ONEAL DISEASE VISIT ANNUAL PCP TEAM CHRONIC DISEASE VISIT [facility] Start: 09-15-2023 Behavioral Health Screening Behavioral Health Screening [facility] Start: 09-04-2023 BP CONTROLLED (<130/80) BP CONTROLLE D (<130/80) [facility] Start: 08-15-2023 BP CONTROLLED (<130/80) BP CONTROLLE D (<130/80) [facility] Start: 08-06-2023 BP CONTROLLED (<130/80) BP CONTROLLE D (<130/80) [facility] Start: 08-02-2023 BP CONTROLLED (<130/80) BP CONTROLLE D (<130/80) [facility] Start: 07-19-2023 BP CONTROLLED (<130/80) BP CONTROLLE D (<130/80) [facility] Start: 06-25-2023 ANNUAL PCP TEAM CLINICAL MANAGER ONEAL DISEASE VISIT ANNUAL PCP TEAM CHRONIC DISEASE VISIT [facility] Start: 06-25-2023 BP CONTROLLED (<130/80) BP CONTROLLE D (<130/80) [facility] Start: 06-25-2023 HEPATITIS B (1 of 3 - 3-dose series) HEPATITIS B (1 of 3 - 3-dose series) [facility] Comment on above: Postponed from 09/06 (Declined at this time) Start: 06-21-2023 BP CONTROLLED (<130/80) BP CONTROLLE D (<130/80) [facility] Start: 05-16-2023 Influenza vaccination INFLUENZA (#1) [facility] Start: 05-10-2023 BP CONTROLLED (<130/80) BP CONTROLLE D (<130/80) [facility] Start: 05-06-2023 ANNUAL PCP TEAM CLINICAL MANAGER ONEAL DISEASE VISIT ANNUAL PCP TEAM CHRONIC DISEASE VISIT [facility] Start: 05-06-2023 BP CONTROLLED (<130/80) BP CONTROLLE D (<130/80) [facility] Start: 04-05-2023 COVID-19 VACCINE (2 - Moderna series) COVID-19 VACCINE (2 - Moderna series) [facility] Comment on above: Postponed from 07/30 (Declined at this time) Postponed from 08/27 (Declined at this time) Start: 03-05-2023 BP CONTROLLED (<130/80) BP CONTROLLE D (<130/80) [facility] Start: 02-08-2023 BP CONTROLLED (<130/80) BP CONTROLLE D (<130/80) [facility] Start: 01-17-2023 End: 01-02-2024 EGD DIAGNOSTIC [facility] Work Phone: Comment on above: Expected: 01/17/2023 , Expires: 01/02/2024 1 Occurrences starti ng 01/17/2023 until 01/17/2023 Start: 01-08-2023 ANNUAL PCP TEAM CLINICAL MANAGER ONEAL DISEASE VISIT ANNUAL PCP TEAM CHRONIC DISEASE VISIT [facility] Start: 11-20-2022 End: 01-20-2023 Choriogonadotropin.beta subunit [Units/volume] in Serum or Plasma HCG QUANTITATIVE Lab Routine examination or test, unconfirmed Expected: 11/20/2022 (Approximate), Expires: 01/20/2023 [facility] Work Phone: Comment on above: Expected: 11/20/2022 (Approximate), Expires: 01/20/2023 Start: 11-19-2022 Adult depression screening assessment DEPRESSION SCREENING [facility] Start: 10-04-2022 HPV TESTING HPV TESTING [facility] Start: 10-04-2022 PAP TESTING PAP TESTING [facility] Start: 09-15-2022 DEPRESSION ASSESSMENT DEPRESSION ASS ESSMENT [facility] Start: 09-09-2022 INDUCTION L&D INDUCTION L&D Procedures Routine Preexisting hypertension complicating , antepartum Expected: 09/09/2022 [facility] Work Phone: Comment on above: Expected: 09/09/2022 Start: 08-06-2022 End: 08-06-2023 OBSTETRIC ULTRASOUND WHI OBSTETRIC ULTRASOUND WHI Anc Imaging Routine AMA (advanced maternal age) multigravida 35+, third trimester Obesity complicating , third trimester Expected: 08/06/2022, Expires: 08/06/2023 [facility] Work Phone: Comment on above: Expected: 08/06/2022 , Expires: 08/06/2023 Start: 06-21-2022 End: 06-21-2023 CBC panel - Blood by Automated count [facility] Work Phone: Comment on above: Expected: 06/21/2022 , Expires: 06/21/2023 Start: 06-21-2022 End: 06-21-2023 GEST GLUC SCREEN, 1-HR, 50 GM, NON-FASTING [facility] Work Phone: Comment on above: Expected: 06/21/2022 , Expires: 06/21/2023 Start: 06-21-2022 End: 06-21-2023 SYPHILIS TOTAL W/REFLEX [facility] Work Phone: Comment on above: Expected: 06/21/2022 , Expires: 06/21/2023 Start: 06-21-2022 End: 08-21-2022 TOX SCREEN ROUT UR TOX SCREEN ROUT UR Lab Routine 26 weeks gestation of History of drug use Expected: 06/21/2022, Expires: 08/21/2022 [facility] Work Phone: Comment on above: Expected: 06/21/2022 , Expires: 08/21/2022 Start: 05-16-2022 Influenza vaccination INFLUENZA (#1) [facility] Start: 02-14-2022 End: 04-16-2022 Acute hepatitis 2000 panel - Serum [facility] Work Phone: Comment on above: Expected: 02/14/2022 , Expires: 04/16/2022 Start: 02-14-2022 End: 04-16-2022 HIV 1+2 Ab [Presence] in Serum or Plasma by Immunoassay [facility] Work Phone: Comment on above: Expected: 02/14/2022 , Expires: 04/16/2022 Start: 02-14-2022 End: 04-16-2022 RUBELLA IGG AB [facility] Work Phone: Comment on above: Expected: 02/14/2022 , Expires: 04/16/2022 Start: 02-14-2022 End: 04-16-2022 SYPHILIS TOTAL W/REFLEX [facility] Work Phone: Comment on above: Expected: 02/14/2022 , Expires: 04/16/2022 Start: 01-18-2022 End: 03-20-2022 Choriogonadotropin.beta subunit [Units/volume] in Serum or Plasma HCG QUANTITATIVE Lab Routine Secondary amenorrhea Expected: 01/18/2022, Expires: 03/20/2022 [facility] Work Phone: Comment on above: Expected: 01/18/2022 , Expires: 03/20/2022 Start: 01-18-2022 End: 03-20-2022 TYPE AND SCREEN TYPE AND SCREEN Blood Bank Routine Secondary amenorrhea Expected: 01/18/2022, Expires: 03/20/2022 [facility] Work Phone: Comment on above: Expected: 01/18/2022 , Expires: 03/20/2022 Start: 12-12-2021 ANNUAL PCP TEAM CLINICAL MANAGER ONEAL DISEASE VISIT ANNUAL PCP TEAM CHRONIC DISEASE VISIT [facility] Start: 09-15-2021 DEPRESSION ASSESSMENT DEPRESSION ASS ESSMENT [facility] Start: 07-30-2021 COVID-19 VACCINE (2 - Moderna 3-dose series) COVID-19 VACCINE (2 - Moderna 3-dose series) [facility] Start: 07-30-2021 COVID-19 VACCINE (2 - Moderna series) COVID-19 VACCINE (2 - Moderna series) [facility] Start: 05-16-2021 Influenza vaccination Flu vaccine (# 1) [facility] Work Phone: Start: 06-01-2020 A1C test (Diabetic o r Prediabetic) A1C test (Diabetic or Prediabetic) [place], [place] Start: 06-01-2020 HbA1c (Bld) [Mass fraction] [...] Start: 06-23-2019 End: 06-23-2019 Appointment 06/23/2019 Appointment Mihia Ly [facility]DI[facility] Start: 06-21-2019 End: [...] 05-16-2019 [facility] Start: 05-14-2019 End: 05-14-2019 Appointment 05/14/2019 Appointment Mihai Ly ADDICTION OP Start: 05-12-2019 End: 05-12-2019 Appointment 05/12/2019 Appointment Mihai Ly ADDICTION OP Start: 05-10-2019 End: 05-10-2019 Appointment 05/10/2019 Appointment Mihai Ly [facility]DI[facility] OP Start: 05-07-2019 End: 05-07-2019 Appointment 05/07/2019 Appointment Mihai Ly [facility]DICTION OP Start: 05-06-2019 End: 05-06-2019 Office Visit 05/06/2019 Office Visit Obstetrics and Gynecology Luci Edwards, JAZ - [address], [address] [place] [address] [phone] [facility] [place] 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 Start: 05-05-2019 End: 05-05-2019 Appointment 05/05/2019 Appointment [...] Screening for malign ant neoplasm of cervix [facility] [employer] Phone: Start: 2012 HPV Vaccine (1 - 3-d ose SCDM series) HPV Vaccine (1 - 3-dose SCDM series) [facility] Start: 2006 Cervical cancer screen Cervical canc er screen [place], [place] Start: 2006 Screening for malign ant neoplasm of cervix [facility] Work Phone: Start: 2003 BP CONTROLLED (<130/80) BP CONTROLLE D (<130/80) [facility] Start: 2001 COVID-19 Vaccine (1) COVID-19 Vaccin e (1) [email or web address] Work Phone: Start: 1998 Varicella Vaccine (1 of 2 - 13+ 2-dose series) Varicella Vaccine (1 of 2 - 13+ 2-dose series) [place], [place] Start: 1997 COVID-19 Vaccine (1) COVID-19 Vaccin e (1) [email or web address] Work Phone: Start: 1991 Pneumococcal 0-64 ye ars Vaccine (1 of 1 - PPSV23) Pneumococcal 0-64 years Vaccine (1 of 1 - PPSV23) [place], [place] Start: 1986 Varicella Vaccine (1 of 2 - 2-dose childhood series) Varicella Vaccine (1 of 2 - 2-dose childhood series) [place], [place] Start: 1985 HEPATITIS B (1 of 3 - 3-dose series) HEPATITIS B (1 of 3 - 3-dose series) [facility] Alanine aminotransfe rase [Enzymatic activity/volume] in Serum or Plasma [facility] Albumin [Mass/volume ] in Serum or Plasma [facility] Alkaline phosphatase [Enzymatic activity/volume] in Serum or Plasma [facility] Anion gap in Serum o r Plasma [facility] BACTERIAL VAGINOSIS NAAT BACTERI AL VAGINOSIS NAAT Lab Routine Screening for STDs (sexually transmitted diseases) 10/18/2024 10:44 AM EST [facility] Bilirubin, total measurement [facility] BUN/Creatinine ratio [facility] End: 06-07-2019 Buprenorphine Buprenorphine Lab Routine Once for 1 Occurrences starting 06/07/2019 until 06/07/2019 [place], [place] Comment on above: Once for 1 Occurrenc es starting 06/07/2019 until 06/07/2019 Buprenorphine Buprenorphine La b Routine 06/07/2019 2:46 PM EDT [facility] [place], [place] Calcium [Mass/volume ] in Serum or Plasma [facility] ALEX/TRICHOMONAS NAAT ALEX /TRICHOMONAS NAAT Lab Routine Screening for STDs (sexually transmitted diseases) 10/18/2024 10:44 AM [facility] Carbon dioxide, tota l [Moles/volume] in Central venous blood [facility] Chlamydia trachomatis+Neisseria gonorrhoeae DNA [Presence] in Unspecified specimen by CASSIDY with probe detection GC/CHLAMYDIA DNA DET Lab Routine Women's annual routine gynecological examination 01/18/2022 2:05 PM EDT [facility] Work Phone: Chlamydia trachomatis+Neisseria gonorrhoeae DNA [Presence] in Unspecified specimen by CASSIDY with probe detection GONORRHEA/CHLAMYDIA NAAT Lab Routine Screening for STDs (sexually transmitted diseases) 10/18/2024 10:44 AM [facility] Chlamydia trachomatis+Neisseria gonorrhoeae DNA [Presence] in Urine by CASSIDY with probe detection GC/CHLAMYDIA AMPLIF, URINE Microbiology Routine Routine screening for STI (sexually transmitted infection) 11/01/2022 2:01 PM [employer] [facility] [employer] Work Phone: Creatinine [Mass/vol ume] in Serum or Plasma [facility] End: 12-23-2020 Culture, Urine Culture, Urine Microbiology STAT One Time for 1 Occurrences starting 12/23/2020 until 12/23/2020 [employer] Work Phone: Comment on above: One Time for 1 Occur rences starting 12/23/2020 until 12/23/2020 Culture, Urine Culture, Urine Microbiology STAT 12/23/2020 11:11 PM EDT [employer] Work Phone: End: 11-17-2025 DBT Breast - bilateral screening CHARIS SCREENING W JORGE Radiology Routine Encounter for screening mammogram for breast cancer Dense breast tissue 1 Occurrences starting 10/18/2024 until 11/17/2025 [facility] Work Phone: Comment on above: 1 Occurrences starti ng 10/18/2024 until 11/17/2025 EKG 12 Lead [facility] [place] Erythrocyte mean corpuscular volume determination [facility] End: 06-07-2019 Fentanyl, Urine Fentanyl, Urine Lab Routine Once for 1 Occurrences starting 06/07/2019 until 06/07/2019 [facility] [place] Comment on above: Once for 1 Occurrenc es starting 06/07/2019 until 06/07/2019 Fentanyl, Urine Fentanyl, Urine Lab Routine 06/07/2019 2:46 PM EDT [facility] [place] End: 08-21-2022 nonstress test NON-STRESS TEST Procedures Routine Gestational diabetes mellitus, class A1 Obesity complicating , third trimester Preexisting hypertension complicating , antepartum Once per week for 10 Occurrences starting 07/19/2022 until 08/21/2022 [facility] Work Phone: Comment on above: Once per week for 10 Occurrences starting 07/19/2022 until 08/21/2022 nonstress test NON-S TRESS TEST Procedures Routine AMA (advanced maternal age) multigravida 35+, third trimester Obesity complicating , third trimester Gestational diabetes mellitus, class A1 33 weeks gestation of Non-stress test reactive Ordered: 08/06/2022 [facility] Work Phone: Comment on above: Ordered: 08/06/2022 FUNGAL SMEAR FUNGAL SMEAR Microbiology Routine Vaginal discharge Ordered: 04/05/2022 [facility] Work Phone: Comment on above: Ordered: 04/05/2022 Glucose [Mass/volume ] in Serum or Plasma [facility] Hematocrit [Volume Fraction] of Blood [facility] Hemoglobin [Mass/vol ume] in Blood [facility] Hemoglobin A1c/Hemoglobin.total in Blood HEMOGLOBIN A1C (POC) Lab Routine History of gestational diabetes Ordered: 12/10/2022 [facility] Work Phone: Comment on above: Ordered: 12/10/2022 End: 06-07-2019 [facility] Lab Routine Once for 1 Occurrences starting 06/07/2019 until 06/07/2019 [facility] [place] Comment on above: Once for 1 Occurrenc es starting 06/07/2019 until 06/07/2019 [facility] Lab Routine 06/07/2019 2:46 PM EDT [place] Leukocytes [#/volume ] in Blood [facility] Mean corpuscular hemoglobin concentration determination [facility] Mean corpuscular hemoglobin determination [facility] Measurement of renal function [facility] Neutrophil count [facility] Neutrophil percent differential count [facility] OB UA DIP B/O (AG) OB UA DIP B/O (AG) Lab Routine 15 weeks gestation of Ordered: 04/02/2022 [facility] Work Phone: Comment on above: Ordered: 04/02/2022 OB UA DIP B/O (AG) OB UA DIP B/O (AG) Lab Routine 28 weeks gestation of Ordered: 07/03/2022 [facility] Work Phone: Comment on above: Ordered: 07/03/2022 OB UA DIP B/O (AG) OB UA DIP B/O (AG) Lab Routine 32 weeks gestation of Ordered: 07/31/2022 [facility] Work Phone: Comment on above: Ordered: 07/31/2022 OB UA DIP B/O (AG) OB UA DIP B/O (AG) Lab Routine 34 weeks gestation of Ordered: 08/14/2022 [facility] Work Phone: Comment on above: Ordered: 08/14/2022 OB UA DIP B/O (AG) OB UA DIP B/O (AG) Lab Routine 35 weeks gestation of Ordered: 08/22/2022 [facility] Work Phone: Comment on above: Ordered: 08/22/2022 OB UA DIP B/O (AG) OB UA DIP B/O (AG) Lab Routine 36 weeks gestation of Ordered: 08/29/2022 [facility] Work Phone: Comment on above: Ordered: 08/29/2022 OB UA DIP B/O (AG) OB UA DIP B/O (AG) Lab Routine 37 weeks gestation of Ordered: 09/03/2022 [facility] Work Phone: Comment on above: Ordered: 09/03/2022 OBSTETRIC ULTRASOUND WHI OBSTETR IC ULTRASOUND WHI Anc Imaging Routine care of multigravida, antepartum Ordered: 01/21/2022 [facility] Work Phone: Comment on above: Ordered: 01/21/2022 OBSTETRIC ULTRASOUND WHI OBSTETR IC ULTRASOUND WHI Anc Imaging Routine 15 weeks gestation of Ordered: 04/05/2022 [facility] Work Phone: Comment on above: Ordered: 04/05/2022 OBSTETRIC ULTRASOUND WHI OBSTETR IC ULTRASOUND WHI Anc Imaging Routine Obesity complicating , second trimester Ordered: 05/07/2022 [facility] Work Phone: Comment on above: Ordered: 05/07/2022 End: 09-13-2022 OBSTETRIC ULTRASOUND WHI OBSTETRIC ULTRASOUND WHI Anc Imaging Routine Gestational diabetes mellitus, class A1 Once per month for 4 Occurrences starting 07/05/2022 until 09/13/2022 [facility] Work Phone: Comment on above: Once per month for 4 Occurrences starting 07/05/2022 until 09/13/2022 PAP FLUID CERVICAL SCREENING PAP FLUID CERVICAL SCREENING Lab Routine Women's annual routine gynecological examination Routine cervical smear Ordered: 01/18/2022 [facility] Work Phone: Comment on above: Ordered: 01/18/2022 PAP TEST PAP TEST Lab Lindsay doll Encounter for gynecological examination (general) (routine) with abnormal findings Screening for cervical cancer Encounter for screening for human papillomavirus (HPV) 10/18/2024 10:44 AM EST [facility] Patient Education [facility] Work Phone: Patient referral [facility] Work Phone: Platelets [#/volume] in Blood [facility] Potassium measurement [facility] QUANT TOX PANEL QUANT TOX PANEL Lab Routine Adult ADHD 03/22/2025 2:04 PM EDT [facility] Red blood cell count [facility] Red cell distributio n width determination [facility] Removal intrauterine device iud REMOVE INTRAUTERINE DEVICE Procedures Routine Encounter for IUD removal Ordered: 12/28/2024 [facility] Work Phone: Comment on above: Ordered: 12/28/2024 Serum chloride measurement [facility] Sodium measurement [facility] SPECIMEN VALIDITY, URINE SPECIME N VALIDITY, URINE Lab Routine Adult ADHD 03/22/2025 2:04 PM EDT [facility] SURGICAL PATHOLOGY [facility] Work Phone: Comment on above: Release Upon Orderin g for 1 Occurrences starting 01/17/2023, 1 completed SWAB COLLECTION SPECIMEN SWAB CO LLECTION SPECIMEN Lab Routine Testing of female for genetic disease carrier status Ordered: 03/14/2025 [facility] Work Phone: Comment on above: Ordered: 03/14/2025 Total protein measurement [facility] TOXICOLOGY SCREEN, ROUTINE URINE TOXICOLOGY SCREEN, ROUTINE URINE Lab Routine Adult ADHD 03/22/2025 2:04 PM EDT [facility] UA DIP, URINE (POC) UA DIP, URIN E (POC) Lab Routine 26 weeks gestation of Ordered: 06/21/2022 [facility] Work Phone: Comment on above: Ordered: 06/21/2022 Urea nitrogen [Mass/volume] in Serum or Plasma [facility] Immunizations Immunization Date Immunization Notes Care Provider Citlali boyd 07-05-2024 influenza, seasonal, injectable Hui Valdes 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 Work Phone: [facility] 07-05-2024 influenza virus vaccine, unspecified formulation Brenton Edwards [facility] Work Phone: [facility] 07-01-2023 influenza, injectabl e, quadrivalent, contains preservative Ernesto Carlin MD Work Phone: [facility] 07-05-2022 tetanus toxoid, reduced diphtheria toxoid, and acellular pertussis vaccine, adsorbed Nurse [facility] 06-25-2022 influenza, injectabl e, quadrivalent, contains preservative Guanakito Angel PA-C Work Phone: [facility] 06-29-2021 influenza, injectabl e, quadrivalent, contains preservative Ernesto Carlin MD Work Phone: [facility] 06-29-2021 tetanus toxoid, reduced diphtheria toxoid, and acellular pertussis vaccine, adsorbed Ernesto Carlin MD Work Phone: [facility] 05-03-2020 influenza virus vaccine, unspecified formulation Ernesto Carlin MD Work Phone: [facility] 05-03-2020 influenza, injectabl e, quadrivalent, preservative free Ernesto Carlin MD Work Phone: [facility] 10-04-2019 influenza, injectabl e, quadrivalent, contains preservative Ernesto Carlin MD Work Phone: [facility] 07-07-2018 influenza, injectabl e, quadrivalent, contains preservative Ernesto Carlin MD Work Phone: [facility] 07-07-2018 tetanus toxoid, reduced diphtheria toxoid, and acellular pertussis vaccine, adsorbed Ernesto Carlin MD Work Phone: [facility] 08-17-2009 novel [id number], preservative-free, injectable Ernesto Carlin MD Work Phone: [facility] 04-27-1998 measles, mumps and rubella virus vaccine Ernesto Carlin MD Work Phone: [facility] NEGATED: Highlighted row has not occurred!06-04-2019 influenza, injectable, quadrivalent, preservative free [facility]: Highlighted row has not occurred!06-01-2019 influenza, injectable, quadrivalent, preservative free [facility] Payers Date Payer Category Payer Self-pay 2022 Medicaid [id number] 2018 Medicaid [employer] [id number] 2018-Present [phone] [address] [place] [address] Medicaid [id number] 2018 Medicaid [id number] 2014 Unknown [id number] 1985 Unknown [id number] 1985 Unknown [id number] 1985 Unknown [id number] 1959 Unknown [id number] Unknown [employer] Unknown [id number] Unknown [id number] Unknown [id number] Unknown [id number] Unknown [id number] Unknown [id number] Unknown [id number] Unknown [id number] Unknown [id number] Unknown [id number] Unknown [id number] Unknown [id number] Social History Date Type Detail Facility Start: 06-27-2018 End: 02-22-2025 Tobacco smoking status NHIS Current every day smoker [facility] Start: 09-15-2000 End: 09-15-2020 History of tobacco use Cigarette Smoker [place], [place] Start: 06-27-2018 End: 07-05-2024 Cigarettes smoked current (pack per day) - Reported [facility] Start: 06-27-2018 End: 07-05-2024 Alcohol intake No [facility] Start: 1985 Sex Assigned At Not on file M [place], [place] Start: 05-31-2019 End: 06-19-2021 Alcohol intake Current non-drinker of alcohol (finding) [place], [place] Start: 12-23-2020 End: 07-05-2024 Tobacco smoking status DCIS Former smoker [facility] Work Phone: Start: 12-23-2020 End: 07-05-2024 Tobacco use and exposure Never used [employer] Work Phone: Start: 11-11-2020 [employer] Work Phone: Start: 12-15-2021 End: 06-28-2022 Exposure to SARS-CoV-2 (event) Not sure [employer] Work Phone: Start: 12-12-2020 End: 05-06-2022 Tobacco use and exposure Former smokeless tobacco user [facility] Work Phone: End: 10-16-2020 History of tobacco use User of smokeless tobacco [facility] Work Phone: Start: 11-26-2021 End: 03-22-2025 Alcohol intake Ex-drinker (finding) [facility] Start: 11-19-2021 End: 10-01-2022 History SDOH Alcohol Frequency 1 [facility] Start: 11-19-2021 History SDOH Alcohol Std Drinks 98 [facility] Start: 07-07-2018 History SDOH Alcohol Comment rarely [facility] Start: 11-19-2021 End: 10-01-2022 History SDOH Social Connections Phone 5 [facility] Start: 11-19-2021 End: 10-01-2022 History SDOH Social Connections Orthodox 3 [facility] Start: 11-19-2021 History SDOH Physica l Activity MPS 6 [facility] Start: 11-19-2021 End: 10-01-2022 History SDOH Financial 4 [facility] Start: 11-19-2021 End: 10-01-2022 History SDOH Transport Med 2 [facility] Start: 1985 Sex Assigned At Female [facility] Start: 04-05-2022 End: 04-15-2022 Exposure to SARS-CoV-2 (event) Yes [facility] Start: 09-15-2000 End: 09-15-2020 History of tobacco use Current smoker [facility] Work Phone: Start: 10-01-2022 History SDOH Alcohol Std Drinks 0 [facility] Are you now , , , , never or living with a partner? [facility] How often to you hav e a drink containing alcohol? Never [facility] Start: 04-01-2015 How many standard drinks containing alcohol do you have on a typical day? Patient does not drink [facility] How hard is it for y ou to pay for the very basics like food, housing, medical care, and heating Not very hard [facility] Do you feel stress - tense, restless, nervous, or anxious, or unable to sleep at night because your mind is troubled all the time - these days [OSQ] Not at all [facility] (I/We) worried wheth er (my/our) food would run out before (I/we) got money to buy more. Never true [facility] In the past 12 month s, was there a time when you were not able to pay the mortgage or rent on time? No [facility] Start: 05-15-2020 Gender identity Identifies as female gender (finding) [facility] Start: 05-15-2020 Sexual orientation Heterosexual (rosario cardensa) [facility] Do you feel stress - tense, restless, nervous, or anxious, or unable to sleep at night because your mind is troubled all the time - these days [OSQ] Only a little [facility] NEGATED: Highlighted row - - [facility] Work Phone: NEGATED: Highlighted row Not [facility] Medical Equipment Procedure Code Equipment Code Equipment [...] Result Facility 02-23-2025 Functional status [place] [facility] Work Phone: 02-14-2025 Functional status Ambulates [facility] Work Phone: 12-31-2024 Total score [AUDIT-C] 0 01/01/20 25 12:33 PM EDT User, Krystian [facility] 12-31-2024 Within the last year , have you been humiliated or emotionally abused in other ways by your partner or ex-partner? No 12/31/2024 12:33 PM EDT User, Krystian No [facility] 12-31-2024 Within the last year , have you been afraid of your partner or ex-partner? No 12/31/2024 12:33 PM EDT User, Tot No [facility] 12-31-2024 Within the last year , have you been raped or forced to have any kind of sexual activity by your partner or ex-partner? No 12/31/2024 12:33 PM EDT User, Johniehart No [facility] 12-31-2024 Within the last year , have you been kicked, hit, slapped, or otherwise physically hurt by your partner or ex-partner? No 12/31/2024 12:33 PM EDT User, Johniehart No [facility] 12-31-2024 How often to you hav e a drink containing alcohol? Never 12/31/2024 12:33 PM EDT User, Mychart Never [facility] 12-31-2024 Functional status Patient does n ot drink 12/31/2024 12:33 PM EDT User, Johniehart Patient does not drink [facility] 12-31-2024 How often do you hav e 6 or more drinks on 1 occasion? Never 12/31/2024 12:33 PM EDT User, Mychart Never [facility] 12-24-2024 Total score [AUDIT-C] 0 12/25/19 25 12:37 PM EDT User, Johniehart [facility] 12-24-2024 Within the last year , have you been humiliated or emotionally abused in other ways by your partner or ex-partner? No 12/24/2024 12:37 PM EDT User, Johniehart No [facility] 12-24-2024 Within the last year , have you been afraid of your partner or ex-partner? No 12/24/2024 12:37 PM EDT User, Johniehart No [facility] 12-24-2024 Within the last year , have you been raped or forced to have any kind of sexual activity by your partner or ex-partner? No 12/24/2024 12:37 PM EDT User, Johniehart No [facility] 12-24-2024 Within the last year , have you been kicked, hit, slapped, or otherwise physically hurt by your partner or ex-partner? No 12/24/2024 12:37 PM EDT UserKrystian No [facility] 12-24-2024 How often to you hav e a drink containing alcohol? Never 12/24/2024 12:37 PM EDT UserKrystian Never [facility] 12-24-2024 Functional status Patient does n ot drink 12/24/2024 12:37 PM EDT User, Krystian Patient does not drink [facility] 12-24-2024 How often do you hav e 6 or more drinks on 1 occasion? Never 12/24/2024 12:37 PM EDT UserKrystian Never [facility] 09-14-2022 Are you blind, or do you have serious difficulty seeing, even when wearing glasses No 09/14/2022 8:45 AM Sonya Espitia RN No [facility] 09-14-2022 Do you have serious difficulty walking or climbing stairs No 09/14/2022 8:45 AM Sonya Espitia RN No [facility] 09-14-2022 Do you have difficul ty dressing or bathing No 09/14/2022 8:45 AM Sonya Espitia RN No [facility] 09-14-2022 Because of a physica l, mental, or emotional condition, do you have difficulty doing errands alone such as visiting a physician's office or shopping No 09/14/2022 8:45 AM Sonya Espitia RN [facility] 03-28-2022 Are you deaf, or do you have serious difficulty hearing No 03/28/2022 1:25 PM EDT Carlene Francis RN No [facility] NEGATED: Highlighted row Functional performance Functional status health issues are not documented Disease [facility] Work Phone: Mental Status Date Assessment Result Facility 02-24-2025 Cognitive function Level Of Cons ciousness Awake;Alert;Appropriate ;Follows Commands [facility] Work Phone: 02-23-2025 Cognitive function Voice/Name [facility] Work Phone: 02-14-2025 Cognitive function Voice/Name [facility] Work Phone: 09-14-2022 Because of a physical, mental, or emotional condition, do you have serious difficulty concentrating, remembering, or making decisions No 09/14/2022 8:45 AM Sonya Espitia RN No [facility] NEGATED: Highlighted row Cognitive function [Interpretation] Cognitive [...] Cordon LPN April 04, 2025 1:44 PM [facility] 04-04-2025 Miscellaneous Notes Prescription Refill Information The [...] 2025 1:44 PM documented in this encounter [facility] 03-28-2025 Telephone encounter Note Reviewed. Hui Valdes APRN.TIMBO [facility] 03-28-2025 Miscellaneous Notes Reviewed. Hui Valdes APRN.TIMBO Prescription for Wellbutrin sent. Take one tablet daily. Hui Valdes APRN.CNP documented in this encounter [facility] 03-28-2025 Telephone encounter Note Prescription for Wellbutrin sent. Take one tablet daily. Hui Valdes APRN.CNP [facility] 03-25-2025 Telephone encounter Note ----- Message from [...] her see p chandanchieduardo. Hui Valdes APRN.CNP [facility] 03-25-2025 Miscellaneous Notes ----- Message from Hui [...] Hui Valdes APRN.CNP documented in this encounter [facility] 03-22-2025 Instructions Hui Valdes APRN.CNP - 03/22/2025 1:43 PM EDT - Complete the urine drug screen in the office today. - Sign the controlled-substance agreement before you leave. - After the drug screen returns normal, your prescription for a stimulant ADHD medication will be sent to [facility]. - Take the new medication with food [...] as previously scheduled. documented in this encounter [facility] 03-22-2025 Note HNO ID: [id number] Author: HUI VALDES APRN.CNP Service: ? Author Type: Nurse Practitioner Type: Progress Notes Filed: 03/22/2025 14:14 Note Text: 03/22/2025 Patient presents with: Medication Follow-up Recording using Lee Silber software for draft documentation of the visit was discussed with the patient/authorized career services representative; all questions welcomed and answered. Patient/authorized career services representative agreed to proceed SUBJECTIVE: This is [...] in partial remission, most recent episode mixed ([facility]) 10/04/2019 Depression, major, recurrent, moderate ([facility]) 07/07/2018 Diet controlled gestational diabetes mellitus (GDM) in second trimester ([facility]) 07/05/2022 Drug use disorder remission since 06/2019; methamphetamines, marijuana Gastritis due to Helicobacter species 11/26/2021 Genital warts 1-29-09 Never seen again GERD without esophagitis 02/08/2022 Grand multiparity 09/11/2022 - history 4 prior SVDs, this will be delivery #5 - admission CBC 11.9 Group B Streptococcus carrier, antepartum ([facility]) 07/26/2021 Sensitive to Vanc Hemorrhoids Herpes [...] tract infection in , antepartum, second trimester ([facility]) 03/28/2022 Urogenital trichomoniasis 2017 Not totally [...] of adherence to (more content not included)... [facility] 03-22-2025 History of Presen t illness Narrative 03/22/2025 Patient presents with: Medication Follow-up Recording using Lee Silber software for draft documentation of the visit was discussed with the patient/authorized career services representative; all questions welcomed and answered. Patient/authorized career services representative agreed to proceed SUBJECTIVE: This is [...] in partial remission, most recent episode mixed ([facility]) 10/04/2019 Depression, major, recurrent, moderate ([facility]) 07/07/2018 Diet controlled gestational diabetes mellitus (GDM) in second trimester ([facility]) 07/05/2022 Drug use disorder remission since 06/2019; methamphetamines, marijuana Gastritis due to Helicobacter species 11/26/2021 Genital warts 1-29-09 Never seen again GERD without esophagitis 02/08/2022 Grand multiparity 09/11/2022 - history 4 prior SVDs, this will be delivery #5 - admission CBC 11.9 Group B Streptococcus carrier, antepartum ([facility]) 07/26/2021 Sensitive to Vanc Hemorrhoids Herpes [...] tract infection in , antepartum, second trimester ([facility]) 03/28/2022 Urogenital trichomoniasis 2017 Not totally [...] Adderall will be sent to patient's pharmacy ([facility]). - Follow-up appointment scheduled in approximately 5 [...] 4 - Moderate documented in this encounter [facility] 03-14-2025 Note HNO ID: [id number] Author: BRENTON EDWARDS LGC Service: ? Author Type: Genetic Counselor Type: Progress Notes Filed: 03/14/2025 16:27 Note Text: Esas sample is requested for her son's genetic testing. [facility] 03-14-2025 History of Presen t illness Narrative Esas sample is requested for her son's genetic testing. documented in this encounter [facility] 03-09-2025 Progress note [facility] 03-09-2025 Progress note Note Date/Time March 09, 2025 2:09pm [facility] [address] [place] [address] OFFICE VISIT Date of Service: 03/09/25 MR#: [id number] Acct: [id number] Name: DANE OLIVERA Rep #: [id number] : 1985 Provider: Dr. Griffin Rodriguez MD Age/Sex: 39/F Location: [facility] Status: Signed Intake Vital Signs 02/23/25 11:16 [...] S/P hernia repair Z98.890; Z87.19 [facility] Medical History (Updated 03/09/25 @ [...] (2) S/P hernia repair: Status: Acute 03/09/25 0985 <Electronically signed by Desean medellin MD> Date _ [facility] Signature: Date (if applicable) CC: ~ [facility] Work Phone: 1(469) 116-364306-12-2025 Consult note [facility] Medical Records Department [address] [place] [address] Anesthesia Postop Eval I 02/23/25 1454 MR#: [id number] Acct: [id number] Name: DANE OLIVERA Rep #:[id number] : 1985 39 From: Twin SORENSEN PCP: Hui Valdes RF TECHNICIAN-C Status:ADM I N Y Race: C Location: [place] [address] Anesthesia: Postop Eval I Current Vital Signs Temperature: 97.2 F Pulse Rate: 103 Blood Pressure: 147/93 Respiratory Rate: 18 Pulse Ox: 94 Assessment Airway patent: Yes Spontaneous unlabored respirations: Yes nausea: No Vomiting: No Anesthesia Complication: No Fluid Hydration Crystalloid volume administer (ml): 1,000 Total IV fluid infused: 1,000 Progress Note Anesthesia document: Postop Eval 1 completed: Yes 02/23/25 1454 BORE MILL OPERATOR> Date _ [place] BORE MILL OPERATOR Cosigner Signature: Date CC: ~ Signed [facility]06-12-2025 Consult note [facility] Medical Records Department [address] [place] [address] Anesthesia Postop Eval II 02/23/25 1530 MR#: [id number] Acct: [id number] Name: DANE OLIVERA Rep #:[id number] : 1985 39 From: Paul Cox MD PCP: KOSTA Gomez Status:ADM I N Y Race: C Location: [place] [address] Anesthesia Postop Eval I Sum Postop Eval Completion status Anesthesia document: Postop Eval 1 completed: Yes Anesthesia Postop Eval I Summary Anesthesia Postop Eval I Summary: Anesthesia Postop Eval I: Assessment Summary Airway patent Yes 02/23/25 14:54 BORE MILL OPERATOR.TNES Spontaneous unlabored Yes 02/23/25 14:54 BORE MILL OPERATOR.TNES respirations Mental status nausea No 02/23/25 14:54 BORE MILL OPERATOR.TNES Vomiting No 02/23/25 14:54 BORE MILL OPERATOR.TNES Anesthesia Postop Eval I: Fluid Summary Crystalloid volume administer 1,000 02/23/25 14:54 BORE MILL OPERATOR.TNES (ml) Colloids volume administered ( ml) Blood Product volume administered (ml) Total IV fluid infused 1,000 02/23/25 14:54 BORE MILL OPERATOR.TNES Anesthesia Postop Eval I: Summary Notes Anesthesia Complication No 02/23/25 14:54 BORE MILL OPERATOR.TNES Anesthesia Complication Comment: Post-operative progress note Anesthesia: Postop Eval II Evaluation Mental status: Awake Pain Level: 0 nausea: No Vomiting: No 02/23/25 1530 > Date _ Paul Cardoza Signature: Date CC: ~ Signed [facility]06-12-2025 Discharge summary Author Desean Rodriguez [facility] Note Date/Time February 24, 2025 8:14 am [facility] Medical Records Department [address] [place] [address] Discharge Summary 02/24/25 0808 MR#: [id number] Acct: [id number] Name: DANE OLIVERA Rep #:[id number] : 1985 39 From: Desean Rodriguez MD PCP: KOSTA Gomez Status:ADM I N [id number] Prov[facility] Date of Admission: 02/22/25 Date of [...] n.p.o. with antibiotics. Jerrell Garcia MD Pager: [facility] [address] [place] [address], [address] [place] [address] Office: Medications at Discharge Home Medications atomoxetine [...] 14:10 IMPRESSION: Unremarkable intraoperative cholangiogram. [facility] Inst[facility] Discharge Diet: Light diet [...] Referrals / Follow Up: Hui Valdes NP, RF TECHNICIAN-C [Primary Care Provider] - Disposition Disposition (needs filled in before D/C Order can be placed): Home, Self Care 02/24/25813 <Electronically signed by Desean Rodriguez MD> Cosigner Signature (if applicable): CC: KOSTA Valdes; Dr. Desean Rodriguez MD~ Signed [facility] Work Phone: 1(618) 135-848106-12-2025 Discharge summary [facility] Medical Records Department [address] [place] [address] Discharge Summary 02/24/25 0808 MR#: [id number] Acct: [id number] Name: DANE OLIVERA Rep #:[id number] : 1985 39 From: Desean Rodriguez MD PCP: KOSTA Gomez Status:ADM I N Location: [facility] [id number] Providers Date of Admission: 02/22/25 Date of [...] n.p.o. with antibiotics. Jerrell Garcia MD Pager: [facility] [address] [place] [address], [address] [place] [address] Office: Medications at Discharge Home Medications atomoxetine [...] 14:10 IMPRESSION: Unremarkable intraoperative cholangiogram. Reading Location: [place] [address] D/C Instructions Discharge Diet: Light diet - [...] KOSTA Valdes; Dr. Desean Rodriguez MD~ Signed [facility]06-12-2025 [facility] Medical Records Department [address] [place] [address] Discharge Summary 02/24/25807 MR#: [id number] Acct: [id number] Name: DANE OLIVERA Rep #: [id number] : 1985 39 From: Desean Rodriguez MD PCP: KOSTA Gomez Status:ADM IN Location: [facility] [id number] Providers Date of Admission: 02/22/25 Date of [...] n.p.o. with antibiotics. Jerrell Garcia MD Pager: [facility] [address] [place] [address], [address] [place] [address] Office: Medications at Discharge Home Medications atomoxetine [...] 14:10 IMPRESSION: Unremarkable intraoperative cholangiogram. Reading Location: [facility] D/C Instructions Discharge Diet: Light diet - [...] tablet 100 mg PO (more content not included)...[facility]06-11-2025 Consult note Author Paul Cox [facility] Note Date/Time February 24, 2025 11:1 7am [facility] Medical Records Department [address] [place] [address] Anesthesia Postop Eval II 02/23/25 1530 MR#: [id number] Acct: [id number] Name: DANE OLIVERA Rep #:[id number] : 1985 39 From: Paul Cox MD PCP: Hui Valdes RF TECHNICIAN-C Status:ADM I N Y Race: C Location: [facility] MS311 -1 Anesthesia Postop Eval I Sum Postop Eval Completion status Anesthesia document: Postop Eval 1 completed: Yes Anesthesia Postop Eval I Summary Anesthesia Postop Eval I Summary: Anesthesia Postop Eval I: Assessment Summary Airway patent Yes 02/23/25 14:54 BORE MILL OPERATOR.TNES Spontaneous unlabored Yes 02/23/25 14:54 BORE MILL OPERATOR.TNES respirations Mental status nausea No 02/23/25 14:54 BORE MILL OPERATOR.TNES Vomiting No 02/23/25 14:54 BORE MILL OPERATOR.TNES Anesthesia Postop Eval I: Fluid Summary Crystalloid volume administer 1,000 02/23/25 14:54 BORE MILL OPERATOR.TNES (ml) Colloids volume administered ( ml) Blood Product volume administered (ml) Total IV fluid infused 1,000 02/23/25 14:54 BORE MILL OPERATOR.TNES Anesthesia Postop Eval I: Summary Notes Anesthesia Complication No 02/23/25 14:54 BORE MILL OPERATOR.TNES Anesthesia Complication Comment: Post-operative progress note Anesthesia: Postop Eval II Evaluation Mental status: Awake Pain Level: 0 nausea: No Vomiting: No 02/23/25 1530 <Electronically signed by Paul Cox MD > Date _ Paul Cox MD Cosigner Signature: Date CC: ~ Signed [facility] Work Phone: 1(157) 673-226006-11-2025 Consult note Author Twin Choudharybitt [facility] Note Date/Time February 24, 2025 11:1 7am [facility] Medical Records Department [address] [place] [address] Anesthesia Postop Eval I 02/23/25 1454 MR#: [id number] Acct: [id number] Name: DANE OLIVERA Rep #:[id number] : 1985 39 From: Twin SORENSEN PCP: Hui Valdes RF TECHNICIAN-Princess Status:ADM I N Y Race: C Location: [place] [address] Anesthesia: Postop Eval I Current Vital Signs [...] 02/23/25 1454 <Electronically signed by Twin [place] BORE MILL OPERATOR> Date _ [place] BORE MILL OPERATOR Cosigner Signature: Date CC: ~ Signed [facility] Work Phone: 1(935) 865-413006-11-2025 Procedure note [facility] Medical Records Department [address] [place] [address] Operative Report 02/23/25 1454 MR#: [id number] Acct: [id number] Name: DANE OLIVERA Rep #:[id number] : 1985 39 From: Desean Rodriguez MD PCP: Hui Valdes RF TECHNICIAN-C Status:ADM I N Location: [place] [address] Problems Associated Problem List Diagnoses (1) Acute cholecystitis: Procedures Digestive 40xxx-49xxx: 67125 CHOLECYSTECTOMY; WITH CHOLANGIOGRAPHY Operative Report (Standard) Operative Information Date of Procedure: 02/23/25 Pre-Operative Diagnosis: Acute cholecystitis Post-Operative Diagnosis: Acute cholecystitis Surgery/Procedure Performed: Laparoscopic cholecystectomy with intraoperative cholangiograms geophysical laboratory chief: Yes Environmental Engineer: Estrella Cooper Tasks completed by executive assistant: Closing, Retracting and Other Additional multimedia production assistant?: No Type of Anesthesia: General and [...] clipped proximally with a 10 mm clip compensation intern. A small ductotomy was made using curved [...] SCD's VTE Pharm Prophylaxis ordered?: Yes 02/23/25 1236 Cosigner Signature (if applicable): CC: KOSTA Ames Podlogar; Dr. Desean Rodriguez MD~ Signed [facility]06-11-2025 Radiology Diagnostic study note [facility] Imaging Services [address] [place], [place] [address] Cholangiogram/ O R,Initial MR#: [id number] Acct: [id number] Name: DANE OLIVERA Rep #: [id number] : 1985 F 39 From: Serjio Curry MD PCP: KOSTA Gomez Status: ADM I N Study:Cholangiogram/ O R,Initial Date of Exam : 02/23/25 Exam# [id number] Ordering Dr: Jerrell Shipman MD PROCEDURE: CHOLANGIOGRAM/ [...] R,Initial IMPRESSION: Unremarkable intraoperative cholangiogram. Reading Location: [place] [address] CC: RF TECHNICIAN-C Hui Valdes; Dr. Jerrell Garcia MD ~ Aircraft Engine Dismantler: Signed [facility]06-11-2025 Consult note Author Paul mary [facility] Note Date/Time February 23, 2025 12:3 9pm [facility] Medical Records Department [address] [place] [address] Pre-Anesthesia Evaluation 02/23/25 1238 MR#: [id number] Acct: [id number] Name: DANE OLIVERA Rep #:[id number] : 1985 39 From: Paul Cox MD PCP: KOSTA Gomez Status:ADM I N Y Race: C Location: [facility] MS311 -1 ASA Classification* ASA Classification ASA [...] with cholangiograms Anesthesia History Anesthesia History - sorter lumber straightener: Anesthesia History - sorter lumber straightener Hx Hospitalization No 02/04/25 14:43 Any Problems [...] take am of surgery PONV PONV - sorter lumber straightener: PONV - sorter lumber straightener Female HX of Motion Sickness HX of N/V After Surgery Non-Smoker Duration of Surgery greater than 60 minutes Number of Risk Factors PONV Score Height & Weight Height & Weight: Anesthesia: Height & Weight Height 5 ft 4.17 in 02/23/25 11:16 Weight: 75.2 kg 02/23/25 11:16 Body Mass Index (BMI) 28.3 02/23/25 11:16 Respiratory Assessment Respiratory Assessment - sorter lumber straightener: Respiratory Tract Infection Hx - sorter lumber straightener Hx Respiratory Tract Infection No 02/22/25 06:21 STOP Sleep Apnea STOP Sleep Apnea - sorter lumber straightener: STOP Sleep Apnea - sorter lumber straightener Hx Hypertension No 02/22/25 04:45 Hx Sleep [...] Tobacco Use History Tobacco Use History - sorter lumber straightener: Tobacco Use History - sorter lumber straightener Tobacco Use Smoking Status Current every day smoker 02/22/25 08:11 Hx Tobacco Use Yes 02/22/25 04:45 Years Smoking Packs Smoked per Day Smoking Cessation Date was within the last 15 years Hx Smoking Cessation Date Hx Smoking Cessation Counseling Hematologic Medial History Hematologic Hx - sorter lumber straightener: Hematologic Medical Hx - mail order 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 Hx of Blood Transfusion No 02/22/25 04:45 [...] confused, unrespo /Reproduction History /Reproductive History - sorter lumber straightener: /Reproductive Hx- sorter lumber straightener Hx Now No 02/22/25 06:21 Gestational Age [...] mls @ 15 mls/hr 02/22/25 04:32 IV .[id number] PRN Saline Flush Sodium Chloride 250 mls @ 15 mls/hr 02/22/25 04:32 IV .[id number] PRN Additional IVPB Infusion Morphine Sulfate 2 [...] MD Cosigner Signature: Date CC: ~ Signed [facility] Work Phone: 1(440) 436-924706-11-2025 Consult note [facility] Medical Records Department [address] [place] [address] Pre-Anesthesia Evaluation 02/23/25 1238 MR#: [id number] Acct: [id number] Name: DANE OLIVERA Rep #:[id number] : 1985 39 From: Paul Cox MD PCP: KOSTA Gomez Status:ADM I N Y Race: C Location: [place] [id number] -[id number] ASA Classification* ASA Classification ASA Classification: [...] with cholangiograms Anesthesia History Anesthesia History - sorter lumber straightener: Anesthesia History - sorter lumber straightener Hx Hospitalization No 02/04/25 14:43 Any Problems [...] take am of surgery PONV PONV - sorter lumber straightener: PONV - sorter lumber straightener Female HX of Motion Sickness HX of N/V After Surgery Non-Smoker Duration of Surgery greater than 60 minutes Number of Risk Factors PONV Score Height & Weight Height & Weight: Anesthesia: Height & Weight Height 5 ft 4.17 in 02/23/25 11:16 Weight: 75.2 kg 02/23/25 11:16 Body Mass Index (BMI) 28.3 02/23/25 11:16 Respiratory Assessment Respiratory Assessment - sorter lumber straightener: Respiratory Tract Infection Hx - sorter lumber straightener Hx Respiratory Tract Infection No 02/22/25 06:21 STOP Sleep Apnea STOP Sleep Apnea - sorter lumber straightener: STOP Sleep Apnea - sorter lumber straightener Hx Hypertension No 02/22/25 04:45 Hx Sleep [...] Tobacco Use History Tobacco Use History - sorter lumber straightener: Tobacco Use History - sorter lumber straightener Tobacco Use Smoking Status Current every day smoker 02/22/25 08:11 Hx Tobacco Use Yes 02/22/25 04:45 Years Smoking Packs Smoked per Day Smoking Cessation Date was within the last 15 years Hx Smoking Cessation Date Hx Smoking Cessation Counseling Hematologic Medial History Hematologic Hx - sorter lumber straightener: Hematologic Medical Hx - mail order clerk Hx of Blood Transfusion No 02/22/25 04:45 [...] confused, unrespo /Reproduction History /Reproductive History - sorter lumber straightener: /Reproductive Hx- sorter lumber straightener Hx Now No 02/22/25 06:21 Gestational Age [...] mls @ 15 mls/hr 02/22/25 04:32 IV .[id number] PRN Saline Flush Sodium Chloride 250 mls @ 15 mls/hr 02/22/25 04:32 IV .[id number] PRN Additional IVPB Infusion Morphine Sulfate 2 [...] MD Cosigner Signature: Date CC: ~ Signed [facility]06-10-2025 History and physical note Author Jerrell Garcia [facility] Note Date/Time February 22, 2025 4:27 pm [facility] Medical Records Department [address] [place] [address] H&P Exam - Surgical 02/22/25 0710 MR#: [id number] Acct: [id number] Name: DANE OLIVERA Rep #:[id number] : 1985 39 From: Jerrell spears MD PCP: Hui Valdes RF TECHNICIAN-C Status:ADM I N Location: [facility] [id number] HPI - General General Date of Admission: [...] in the right upper quadrant. [facility] Medical History (Updated 02/22/25 @ [...] % (Auto) 66.6, Lymph % (Auto) 23.7, [place]% (Auto) 7.2, Eos % (Auto) 1.5, Baso [...] Dr. Smith at 3:41 am Reading Location: [place] [address] Assessment & Plan Assessment/Plan (1) Acute cholecystitis: PLAN: The patient is postoperative day 7 from ventral hernia repair with Dr. Rodriguez. I will discussed the case with him this morning. one of us will take her for laparoscopic cholecystectomy this afternoon. Continue n.p.o. with antibiotics. Jerrell Garcia MD Pager: [facility] [address] [place] [address], [address] [place] [address] Office: 02/22/25 1424 <Electronically signed by Jerrell Garcia MD> Cosigner [...] Rodriguez MD> Cosigner Signature (if applicable): cc: RF TECHNICIAN-C Hui Valdes; Dr. Jerrell Garcia MD; Dr. Desean Rodriguez MD ~* Signed [facility] Work Phone: 1(628) 736-823506-10-2025 History and physical note [facility] Medical Records Department [address] [place] [address] H&P Exam - Surgical 02/22/25 0710 MR#: [id number] Acct: [id number] Name: DANE OLIVERA Rep #:[id number] : 1985 39 From: Jerrell spears MD PCP: Hui Valdes, RF TECHNICIAN-C Status:ADM I N Location: [address] HPI - General General Date of [...] is in the rightupper quadrant. [facility] Medical History (Updated 02/22/25 @ [...] % (Auto) 66.6, Lymph % (Auto) 23.7, [place]% (Auto) 7.2, Eos % (Auto) 1.5, Baso [...] Dr. Smith at 3:41 am Reading Location: [place] [address] Assessment & Plan Assessment/Plan (1) Acute cholecystitis: PLAN: The patient is postoperative day 7 from ventral hernia repair with Dr. Rodriguez. I will discussed the case with him this morning. one of us will take her for laparoscopic cholecystectomy this afternoon. Continue n.p.o. with antibiotics. Jerrell Garcia MD Pager: [facility], [address] [place] [address] Office: 02/22/25 0729 Cosigner Signature (if applicable): CC: KOSTA Valdes; Dr. Jerrell Garcia MD; Dr. [...] KOSTA Valdes; Dr. Jerrell Garcia MD; Dr. eDsean Rodriguez MD ~* Signed [facility]06-10-2025 Discharge summary Author Kayden Smith [facility] Note Date/Time February 22, 2025 4:01 am [facility] Medical Records Department [address] [place] [address] Emergency Department Summary 02/22/25 MR#: [id number] Acct: [id number] Name: DANE OLIVERA Rep #:[id number] : [...] it is in the right upper abdomen. [facility] Medical History Wears glasses Wears dentures [...] is following commands today she was at [facility] the year is 2024 Skin: Warm, dry, [...] % (Auto) 66.6 Lymph % (Auto) 23.7 [place] % (Auto) 7.2 Eos % (Auto) 1.5 [...] Dr. Smith at 3:41 am Reading [facility] Discharge Plan Triage Chief Complaint: Abd Pain [...] Hui Valdes NP Referrals: Hui Valdes NP, RF TECHNICIAN-C [Primary Care Provider] - Print Language: Canadian Disposition Disposition: [facility] What to do if you have Problems For any increased pain, shortness of breath, bleeding, nausea or vomiting, chestpain, or any unexpected problems, contact your Primary Care Provider. Call [facility] ([phone]) or report to the closest Emergency Room. Call 911 if necessary. 02/22/25 0401 <Electronically signed by Kayden Smith DO> Cosigner Signature (if applicable): CC: OLYC Hui Valdes ~ Signed [facility] Work Phone: 1(857) 395-873306-10-2025 Discharge summary [facility] Medical Records Department [address] [place] [address] Emergency Department Summary 02/22/25 MR#: [id number] Acct: [id number] Name: DANE OLIVERA Rep #:[id number] : [...] it is in the right upper abdomen. [facility] Medical History Wears glasses Wears dentures [...] is following commands today she was at [facility] the year is 2024 Skin: Warm, dry, [...] % (Auto) 66.6 Lymph % (Auto) 23.7 [place] % (Auto) 7.2 Eos % (Auto) 1.5 [...] Dr. Smith at 3:41 am Reading Location: [place] [address] Discharge Plan Triage Chief Complaint: Abd Pain [...] Hui Valdes NP Referrals: Hui Valdes NP, RF TECHNICIAN-C [Primary Care Provider] - Print Language: Canadian Disposition Disposition: [facility] What to do if you have Problems For any increased pain, shortness of breath, bleeding, nausea or vomiting, chestpain, or any unexpected problems, contact your Primary Care Provider. Call [facility] ([phone]) or report tothe closest Emergency Room. Call 911 if necessary. 02/22/25 0401 Cosigner Signature (if applicable): CC: KOSTA Valdes ~ Signed [facility]06-10-2025 Radiology Diagnostic study note [facility] Imaging Services [address] [place], [place] [address] Gallbladder MR#: [id number] Acct: [id number] Name: DANE OLIVERA Rep #: [id number] : 1985 F 39 From: Kate Cornelius MD PCP: KOSTA Gomez Status: REG E R Study:Gallbladder Date of Exam: 02/22/25 Exam# [id number] Ordering Dr: Lia Smith DO PROCEDURE: GALLBLADDER [...] Dr. Smith at 3:41 am Reading Location: [place] [address] CC: RF TECHNICIAN-C Hui Valdes; Dr. Kayden Smith, DO ~ Aircraft Engine Dismantler: Signed [facility]06-09-2025 Discharge summary [facility] Medical Records Department [address] [place] [address] Emergency Department Summary 02/21/25 MR#: [id number] Acct: [id number] Name: DANE OLIVERA Rep #:[id number] : [...] appropriate mood and affect PFSH [facility] Medical History Wears glasses Wears [...] % (Auto) 59.2 Lymph % (Auto) 29.7 [place] % (Auto) 8.0 Eos % (Auto) 2.0 [...] Clarity Clear Urine pH 7.0 Ur Specific [place] 1.010 Urine Protein Negative Urine Glucose (UA) [...] examination is unchanged. Multiple gallstones. Reading Location: [place] [address] Discharge Plan Triage Chief Complaint: Abd Pain [...] if symptoms change or worsen. Print Language: Canadian Disposition Disposition: Home, Self Care What to do if you have Problems For any increased pain, shortness of breath, bleeding, nausea or vomiting, chestpain, or any unexpected problems, contact your Primary Care Provider. Call [facility] ([phone]) or report tothe closest Emergency Room. Call 911 if necessary. 02/21/25 1558 Cosigner Signature (if applicable): CC: RF TECHNICIAN-C Hui Podlogar ~ Signed [facility]06-09-2025 Radiology Diagnostic study note [facility] Imaging Services [address] [place] [address] Abdomen/Pelvis W IV Cont ONLY MR#: [id number] Acct: [id number] Name: DANE OLIVERA Rep #: [id number] : 1985 F 39 From: Serjio Curry MD PCP: Hui Valdes, OLYC Status: REG E R Study:Abdomen/Pelvis W IV Cont ONLY Date of E xam: 02/21/25 Exam# [id number] Ordering Dr: Yvon Do DO PROCEDURE: ABDOMEN/PELVIS [...] examination is unchanged. Multiple gallstones. Reading Location: [facility] CC: KOSTA Valdes; Dr. Yvon Becker DO ~ Aircraft Engine Dismantler: Signed [facility]06-09-2025 Discharge summary Author Yvon Becker [facility] Note Date/Time February 21, 2025 3:58p m [facility] Medical Records Department [address] [place] [address] Emergency Department Summary 02/21/25 MR#: [id number] Acct: [id number] Name: DANE OLIVERA Rep #:[id number] : [...] intact Psych: Cooperative, appropriate mood and affect [facility] Medical History Wears glasses Wears dentures [...] % (Auto) 59.2 Lymph % (Auto) 29.7 [place] % (Auto) 8.0 Eos % (Auto) 2.0 [...] Clarity Clear Urine pH 7.0 Ur Specific [place] 1.010 Urine Protein Negative Urine Glucose (UA) [...] examination is unchanged. Multiple gallstones. Reading Location: [place] [address] Discharge Plan Triage Chief Complaint: Abd Pain [...] if symptoms change or worsen. Print Language: Canadian Disposition Disposition: Home, Self Care What to do if you have Problems For any increased pain, shortness of breath, bleeding, nausea or vomiting, chestpain, or any unexpected problems, contact your Primary Care Provider. Call [facility] ([phone]) or report to the closest Emergency Room. Call 911 if necessary. 02/21/25 1633 <Electronically signed by Yvon Becker DO> Cosigner Signature (if applicable): CC: RF TECHNICIAN-C Hui Valdes ~ Signed [facility] Work Phone: [phone] Hospital Discharge instructions Additional Instructions Keep your appointment on Friday with general surgery. Return back to the ED if symptoms change or worsen.[facility] Work Phone: 1(428) 899-814306-02-2025 Consult note [facility] Medical Records Department [address] [place] [address] Anesthesia Postop Eval II 02/14/25 1637 MR#: [id number] Acct: [id number] Name: DANE OLIVERA Rep #:[id number] : 1985 39 From: Guille Shin MD PCP: Hui Valdes, RF TECHNICIAN-C Status:REG S DC Y Race: C Location: [place] [address]- Anesthesia Postop Eval I Sum Postop Eval Completion status Anesthesia document: Postop Eval 1 completed: Yes Anesthesia Postop Eval I Summary Anesthesia Postop Eval I Summary: Anesthesia Postop Eval I: Assessment Summary Airway patent Yes 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 Spontaneous unlabored Yes 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 respirations Mental status Awake,Calm 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 nausea No 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 Vomiting No 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 Anesthesia Postop Eval I: Fluid Summary Crystalloid volume administer 1,000 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 (ml) Colloids volume administered ( ml) Blood Product volume administered (ml) Total IV fluid infused 1,000 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 Anesthesia Postop Eval I: Summary Notes Anesthesia Complication No 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 Anesthesia Complication Comment: Post-operative progress note Anesthesia: Postop Eval II Evaluation Mental status: Awake Pain Level: 0 nausea: No Vomiting: No Complications Anesthesia Complication: No 02/14/25 1637 > Date _ Guille Shin MD Cosigner Signature: Date CC: ~ Signed [facility]06-02-2025 Consult note Author Royce CeballosTraill [facility] Note Date/Time February 14, 2025 3:55p [facility] Medical Records Department [address] [place] [address] Anesthesia Postop Eval I 02/14/25 1554 MR#: [id number] Acct: [id number] Name: DANE OLIVERA Rep #:[id number] : 1985 39 From: Royce SORENSEN PCP: KOSTA Gomez Status:REG S DC Y Race: C Location: [place] [address] Anesthesia: Postop Eval I Current Vital Signs [...] document: Postop Eval 1 completed: Yes 02/14/25 7272 <Electronically signed by Royce Gomez CRNA> Date _ Royce Gomez CRNA Cosigner Signature: Date CC: ~ Signed [facility] Work Phone: 1(882) 387-113106-02-2025 Discharge summary Author Desean Rodriguez [facility] Note Date/Time February 14, 2025 3:46p m [facility] Medical Records Department [address] [place] [address] Instructions for Home/Discharge Instructions 02/14/25 1536 MR#: [id number] Acct: [id number] Name: DANE OLIVERA Rep #:[id number] : [...] Provider: Hui Valdes NP Instructions Print Language: Canadian Discharge Orders/Prescriptions Prescriptions: New oxycodone-acetaminophen [Percocet] 5-325 [...] Referrals / Follow Up: Hui Valdes NP, RF TECHNICIAN-C [Primary Care Provider] - Disposition Disposition (needs filled in before D/C Order can be placed): Home, Self Care 02/14/25 1546<Electronically signed by Desean Rodriguez MD>Desean Rodriguez MD CC: RF TECHNICIAN-C Hui Valdes ~ Signed [facility] Work Phone: 1(867) 642-537506-02-2025 History and physical note Author [facility] Note Date/Time February 14, 2025 2:17p m [facility] Medical Records Department [address] [place] [address] History & Physical Exam 02/14/25 1414 MR#: [id number] Acct: [id number] Name: DANE OLIVERA Rep #:[id number] : 1985 39 From: Desean Rodriguez MD PCP: KOSTA Gomez Status:REG S DC Location: [address] HPI - General General Date of Admission: 02/14/25 Date of Service: 02/14/25 Chief Complaint: Ventral hernia HPI Narrative DANE OLIVERA, is a 39 F who presents for elective repair of a ventral hernia just above the umbilicus. [facility] Medical History Wears glasses Wears [...] begin momentarily Charges/Coding Visit Charges Inpatient E&M: 95775 Init Hosp L2 02/14/25 1417 <Electronically signed by Desean Rodriguez MD> Cosigner Signature (if applicable): CC: RF TECHNICIAN-C Hui Valdes; Dr. Desean Rodriguez MD~ Signed [facility] Work Phone: 1(889) 355-879306-02-2025 Procedure note [facility] Medical Records Department [address] [place] [address] Operative Report 02/14/25 1546 MR#: [id number] Acct: [id number] Name: DANE OLIVERA Rep #:[id number] : 1985 39 From: Desean Rodriguez MD PCP: OLY GomezC Status:REG S DC Location: [place] [address] Problems Associated Problem List Diagnoses (1) Ventral hernia: Procedures Digestive 40xxx-49xxx: 48179 RPR AA HRN 11-22 NCR/STRN Operative Report (Standard) Operative Information Date of Procedure: 02/14/25 Pre-Operative Diagnosis: Ventral hernia -chronically incarcerated Post-Operative Diagnosis: Same Surgery/Procedure Performed: Open ventral hernia repair with mesh geophysical laboratory chief: Yes Environmental Engineer: Kristine Larose Tasks completed by executive assistant: Closing and Retracting Additional multimedia production assistant?: No Type of Anesthesia: General and [...] KOSTA Valdes; Dr. Desean Rodriguez MD~ Signed [facility]06-02-2025 Consult note [facility] Medical Records Department [address] [place] [address] Anesthesia Postop Eval I 02/14/251553 MR#: [id number] Acct: [id number] Name: DANE OLIVERA Maura Rep #:[id number] : 1985 39 From: Royce SORENSEN PCP: KOSTA Gomez Status:REG S DC Y Race: C Location: [place] [address] Anesthesia: Postop Eval I Current Vital Signs [...] document: Postop Eval 1 completed: Yes 02/14/251554 BORE MILL OPERATOR> Date _ Royce Gomez BORE MILL OPERATOR Cosigner Signature: Date CC: ~ Signed [facility]06-02-2025 Discharge summary [facility] Medical Records Department [address] [place] [address] Instructions for Home/Discharge Instructions 02/14/25 1536 MR#: [id number] Acct: [id number] Name: DANE OLIVERA N Rep #:[id number] [...] Provider: Hui Valdes NP Instructions Print Language: Canadian Discharge Orders/Prescriptions Prescriptions: New oxycodone-acetaminophen [Percocet] 5-325 [...] Referrals / Follow Up: Hui Valdes NP, RF TECHNICIAN-C [Primary Care Provider] - Disposition Disposition (needs filled in before D/C Order can be placed): Home, Self Care 02/14/25 1546Steagle Rodriguez MD CC: KOSTA Valdes ~ Signed [facility]06-02-2025 Consult note Author Guille Shin [facility] Note Date/Time February 14, 2025 1:45p [facility] Medical Records Department [address] [place] [address] Pre-Anesthesia Evaluation 02/14/25 1340 MR#: [id number] Acct: [id number] Name: DANE OLIVERA Rep #:[id number] : 1985 39 From: Guille Shin MD PCP: Hui Valdes, RF TECHNICIAN-C Status:REG S DC Y Race: C Location: [place] [address] ASA Classification* ASA Classification ASA Classification: 2 [...] WITH MESH Anesthesia History Anesthesia History - sorter lumber straightener: Anesthesia History - sorter lumber straightener Hx Hospitalization No 02/04/25 14:43 Any Problems [...] take am of surgery PONV PONV - sorter lumber straightener: PONV - sorter lumber straightener Female Yes 02/04/25 14:43 HX of Motion [...] 02/14/25 13:25 Respiratory Assessment Respiratory Assessment - sorter lumber straightener: Respiratory Tract Infection Hx - sorter lumber straightener Hx Respiratory Tract Infection No 02/04/25 14:43 STOP Sleep Apnea STOP Sleep Apnea - sorter lumber straightener: STOP Sleep Apnea - sorter lumber straightener Hx Hypertension No 02/04/25 14:43 Hx Sleep [...] Tobacco Use History Tobacco Use History - sorter lumber straightener: Tobacco Use History - sorter lumber straightener Tobacco Use Smoking Status Current every day smoker 02/04/25 14:43 Hx Tobacco Use Yes 02/04/25 14:43 Years Smoking Packs Smoked per Day Smoking Cessation Date was within the last 15 years Hx Smoking Cessation Date Hx Smoking Cessation Counseling Hematologic Medial History Hematologic Hx - sorter lumber straightener: Hematologic Medical Hx - mail order clerk Hx of Blood Transfusion No 02/04/25 14:43 [...] confused, unrespo /Reproduction History /Reproductive History - sorter lumber straightener: /Reproductive Hx- sorter lumber straightener Hx Now No 02/04/25 14:43 Gestational Age [...] Guille Villafuerteignjosh Signature: Date CC: ~ Signed [facility] Work Phone: 1(268) 217-643406-02-2025 History and physical note [facility] Medical Records Department [address] [place] [address] History & Physical Exam 02/14/25 1414 MR#: [id number] Acct: [id number] Name: DANE OLIVERA Rep #:[id number] : 1985 39 From: Desean Rodriguez MD PCP: KOSTA Gomez Status:REG S DC Location: [place] [address] HPI - General General Date of Admission: 02/14/25 Date of Service: 02/14/25 Chief Complaint: Ventral hernia HPI Narrative DANE OLIVERA, is a 39 F who presents for elective repair of a ventral hernia just above the umbilicus. [facility] Medical History Wears glasses Wears [...] begin momentarily Charges/Coding Visit Charges Inpatient E&M: 30299 Init Hosp L2 02/14/25 1417 Cosigner Signature (if applicable): CC: KOSTA Ames Podlogar; Dr. Desean Rodriguez MD~ Signed [facility]06-02-2025 [facility] Medical Records Department [address] [place] [address] History Physical Exam 02/14/25 1414 MR#: [id number] Acct: [id number] Name: DANE OLIVERA Rep #: [id number] : 1985 39 From: Desean Rodriguez MD PCP: KOSTA Gomez Status:[facility] Location: [place] [address] HPI - General General Date of Admission: 02/14/25 Date of Service: 02/14/25 Chief Complaint: Ventral hernia HPI Narrative DANE OLIVERA, is a 39 F who presents for elective repair of a ventral hernia just above the umbilicus. [facility] Medical History Wears glasses Wears [...] momentarily Charges/Coding Visit Charges Inpatient E M: 50935 Init Hosp L2 02/14/25 1417 Cosigner Signature (if applicable): CC: KOSTA Valdes; Dr. Desean Rodriguez MD [facility]06-02-2025 Consult note [facility] Medical Records Department [address] [place] [address] Pre-Anesthesia Evaluation 02/14/25 1340 MR#: [id number] Acct: [id number] Name: DANE OLIVERA Rep #:[id number] : 1985 39 From: Guille Shin MD PCP: KOSTA Gomez Status:REG S DC Y Race: C Location: [place] [address] ASA Classification* ASA Classification ASA Classification: 2 [...] WITH MESH Anesthesia History Anesthesia History - sorter lumber straightener: Anesthesia History - sorter lumber straightener Hx Hospitalization No 02/04/25 14:43 Any Problems [...] take am of surgery PONV PONV - sorter lumber straightener: PONV - sorter lumber straightener Female Yes 02/04/25 14:43 HX of Motion [...] 02/14/25 13:25 Respiratory Assessment Respiratory Assessment - sorter lumber straightener: Respiratory Tract Infection Hx - sorter lumber straightener Hx Respiratory Tract Infection No 02/04/25 14:43 STOP Sleep Apnea STOP Sleep Apnea - sorter lumber straightener: STOP Sleep Apnea - sorter lumber straightener Hx Hypertension No 02/04/25 14:43 Hx Sleep [...] Tobacco Use History Tobacco Use History - sorter lumber straightener: Tobacco Use History - sorter lumber straightener Tobacco Use Smoking Status Current every day smoker 02/04/25 14:43 Hx Tobacco Use Yes 02/04/25 14:43 Years Smoking Packs Smoked per Day Smoking Cessation Date was within the last 15 years Hx Smoking Cessation Date Hx Smoking Cessation Counseling Hematologic Medial History Hematologic Hx - sorter lumber straightener: Hematologic 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 - mail order 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 Hx of Blood Transfusion No 02/04/25 14:43 [...] confused, unrespo /Reproduction History /Reproductive History - sorter lumber straightener: /Reproductive Hx- sorter lumber straightener Hx Now No 02/04/25 14:43 Gestational Age [...] MD Cosigner Signature: Date CC: ~ Signed [facility]05-21-2025 Evaluation note* Diagnosis Onset Date Resolution Status Admit Date Ventral hernia acute February 02, 2025 12:47pm Ventral hernia acute February 14, 2025 12:52pm [facility] Work Phone: 1(350) [phone] Evaluation note* Diagnosis Onset Date Resolution Status Admit Date Ventral hernia acute February 02, 2025 12:47pm Ventral hernia acute February 14, 2025 12:52pm Acute cholecystitis acute February 22, 2025 4:04am [facility] Work Phone: 1(320) [phone] Evaluation note* Diagnosis Onset Date Resolution Status Admit Date Ventral hernia resolved February 02, 2025 12:47pm Ventral hernia resolved February 14, 2025 12:52pm Acute cholecystitis resolved February 22, 2025 4:04am S/P cholecystectomy acute March 09, 2025 1:58pm S/P hernia repair acute March 092024 1:58pm [facility] Work Phone: 1(311) 458-774305-21-2025 [facility] [address] [place] [address] OFFICE VISIT Date of Service: 02/02/25 MR#: [id number] Acct: [id number] Name: DANE OLIVERA Rep #: [id number] : 1985 Provider: Dr. Griffin Rodriguez MD Age/Sex: 39/F Location: [facility] Status: Signed Intake Vital Signs 01/15/25 17:48 [...] Const General: cooperative, healthy appearing and comfortable [facility] Head: normal to inspection, normocephalic and atraumatic [...] Cosign Signature: Date (if applicable) CC: ~ [facility]05-21-2025 Progress note Author Desean Rodriguez [facility] Note Date/Time February 02, 2025 1:24p [facility] [address] [place] [address] OFFICE VISIT Date of Service: 02/02/25 MR#: [id number] Acct: [id number] Name: DANE OLIVERA Rep #: [id number] : 1985 Provider: Dr. Griffin Rodriguez MD Age/Sex: 39/F Location: [facility] Status: Signed Intake Vital Signs 01/15/25 17:48 [...] PO QAM 02/02/25 [facility] Tachycardia IUD (intrauterine device) in [...] Const General: cooperative, healthy appearing and comfortable [facility] Head: normal to inspection, normocephalic and atraumatic [...] Cardoza Signature: Date (if applicable) CC: ~ [facility] [employer] [facility] Work Phone: [phone]) [phone] NoteHNO ID: [id number] Author: HUI VALDES APRN.ASSISTANT HEAD CASHIER Service: ? Author Type: Nurse Practitioner Type: [...] Abs Lymph 1.00 - 4.00 k/uL 2.90 [place]% % 9.4 Abs [place] <0.87 k/uL (more content not included)...[facility] 12-31-2024 History of Present illness Narrative* PodlogarHui APRN.ASSISTANT HEAD CASHIER - 12/31/2024 12:58 PM EDT 12/29/2024 Patient [...] in partial remission, most recent episode mixed ([facility]) 10/04/2019 Depression, major, recurrent, moderate ([facility]) 07/07/2018 Diet controlled gestational diabetes mellitus (GDM) in second trimester (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) 07/26/2021 Sensitive to Vanc Hemorrhoids Herpes [...] tract infection in , antepartum, second trimester ([facility]) 03/28/2022 Urogenital trichomoniasis 2017 Not totally [...] Abs Lymph 1.00 - 4.00 k/uL 2.90 [place]% % 9.4 Abs [place] <0.87 k/uL 0.71 [place]osin% % 1.8 Abs [...] Level: 4 - Moderate [facility] Tele[facility] encounter Note * Telephone Encounter - Young Montelongo RN - 12/29/2024 8:06 AM EDT Please contact patient to schedule IUD removal. Young Montelongo RN [facility]04-[facility]25 Miscellaneous Notes* Telephone Encounter - Yonug Montelongo RN - 12/29/2024 8:06 AM EDT [...] you. Frances Parnell RN [facility] Telephone encounter Note * Telephone Encounter - Temitope Bear APRN.CNM - 12/28/2024 4:59 PM EDT Order signed. Temitope Bear APRN.CNM [facility]04-[facility] Telephone encounter Note* Telephone Encounter - Frances Parnell RN - 12/28/2024 4:42 PM EDT Received the following message from PSS: Patient is requesting to have their IUD removed. Please put in a order for this so that it can be scheduled. Order pending. Please file and then route to scheduling. Thank you. Frances Parnell, RN [facility]02-03-2025 NoteHNO ID: [id number] Author: TEMITOPE BEAR APRN.NANCY Service: ? Author Type: Management Architect Type: Progress Notes Filed: 10/18/2024 13:09 Note [...] L5 SAB0 IAB1 Ectopic0 Multiple0 Live Births5 Finishing Pan Operator History LMP: 10/11/2024 (Approximate), IUD Age at Menarche: 9 Age at First : 21 Age at Menopause: Finishing Pan Operator History Comments: Sexual Activity: Yes; Male Contraception: [...] discussed with the Patient or Patient's Authorized Curling Machine Operator. As applicable, any other physician, advance practice provider, medical student, or other health professional student that will be observing or involved in the sensitive examination for educational or training purposes was discussed with the Patient or Authorized Curling Machine Operator. The Patient or Authorized Curling Machine Operator has agreed to proceed with the sensitive [...] BREAST: soft, non-tender, sy (more content not included)...[facility]02-03-2025 History of Present illness Narrative* Temitope [...] L5 SAB0 IAB1 Ectopic0 Multiple0 Live Births5 Finishing Pan Operator History LMP: 10/11/2024 (Approximate), IUD Age at Menarche: 9 Age at First : 21 Age at Menopause: Finishing Pan Operator History Comments: Sexual Activity: Yes; Male Contraception: [...] discussed with the Patient or Patient's Authorized Curling Machine Operator. As applicable, any other physician, advance practice provider, medical student, or other health professional student that will be observing or involved in the sensitive examination for educational or training purposes was discussed with the Patient or Authorized Curling Machine Operator. The Patient or Authorized Curling Machine Operator has agreed to proceed with the sensitive [...] external genitalia normal, normal Bartholin's glands, urethra, Elyria's glands, no vulvar lesions, no cervical lesions, [...] needed Temitope Bear APRN.CNM documented in this encounterOhio State Health System01-29-2025 Telephone encounter Note * Telephone Encounter - Sharon Warren RN - 10/13/2024 7:47 PM EST Please see other MyChart request with med refills in it. [facility] Miscellaneous Notes* Telephone Encounter - Sharon Warren RN - 10/13/2024 7:47 PM EST Please see other MyChart request with med refills in it. documented in this encounterOhio State Health System01-29-2025 Telephone encounter Note * Telephone Encounter - Sharon Warren RN - 10/13/2024 7:41 PM EST Pt sends in eHarmonyhart request for med refills. Pt has a [facility] in [place] as preferred pharmacy. Pt lives in [place] and last scripts went to [facility]. Called and confirmed with pt that was an error and she would like prescriptions to go to [facility]. The last office visit in the [...] Warren RN October 13, 2024 7:41 PM [facility] Miscellaneous Notes* Telephone Encounter - Sharon Warren RN - 10/13/2024 7:41 PM EST Pt sends in Bux[place] request for med refills. Pt has a [facility] pharmacy in [place] as preferred pharmacy. Pt lives in [place] and last scripts went to [facility]. Called and confirmed with pt that was an error and she would like prescriptions to go to [facility]. The last office visit in the [...] 13, 2024 7:41 PM documented in this encounterOhio State Health System11-29-2024 Telephone encounter Note * Telephone Encounter - Rebecca Rhodes - 08/13/2024 3:44 PM EST POPULATION HEALTH NAVIGATION OUTREACH Action/ 1st attempt, call placed to pt for PT consult for OAB (overactive bladder) [N32.81]. Order is 07/05/24. Pt declined to [facility] at this time. Pt plans to go [...] Rebecca Rhodes August 13, 2024 3:44 PM [facility]-29-2024 Miscellaneous Notes* Telephone Encounter - Rebecca Rhodes - 08/13/2024 3:44 PM EST POPULATION HEALTH NAVIGATION OUTREACH Action/ attempt, call placed to pt for PT consult for OAB (overactive bladder) [N32.81]. Order is 07/05/24. Pt declined to [facility] at this time. Pt plans to go [...] 13, 2024 3:44 PM documented in this encounterOhio State Health System11-11-2024 Telephone encounter Note * Telephone Encounter - [...] Whitehead MA July 26, 2024 7:32 PM [facility]-11-[facility]24 Miscellaneous Notes* Telephone Encounter - Lourdes Whitehead [...] 26, 2024 7:32 PM documented in this encounterOhio State Health System10-21-2024 NoteHNO ID: [id number] Author: HUI VALDES APRN.ASSISTANT HEAD CASHIER Service: ? Author Type: Nurse Practitioner Type: [...] to pelvic floor therapy but moved from [place] which is were she was going to [...] nausea, vomiting, or diarrhea : See HPI EVENT SALES REPRESENTATIVE: Negative for abnormal vaginal bleeding, abnormal vaginal [...] with normal S1 and (more content not included)...[facility]10-21-2024 History of Present illness Narrative* PodlogarHui APRN.ASSISTANT HEAD CASHIER - 07/05/2024 1:02 PM EDT 07/05/2024 Patient [...] to pelvic floor therapy but moved from [place] which is were she was going to [...] nausea, vomiting, or diarrhea : See HPI EVENT SALES REPRESENTATIVE: Negative for abnormal vaginal bleeding, abnormal vaginal [...] Level: 4 - Moderate documented in this encounterOhio State Health System04-17-2024 Miscellaneous Notes* Telephone Encounter - Michelle Osborn LPN - 12/31/2023 7:45 AM EDT Sent to covering provider documented in this encounterOhio State Health System02-23-2024 NoteHNO ID: [id number] Author: JOANNA WILKES MD Service: ? Author Type: Physician Type: Progress Notes Filed: 12/14/2023 10:49 Note Text: [facility] NEW [...] Procedures None Current Urologic Medications None Past ACCOUNT REPRESENTATIVE History: G 6 P 5 Vaginal deliveries: [...] SEE HPI Constitutional: u (more content not included)...[facility] 07-01-2023 History of Present illness Narrative* Ernesto [...] FLUZONE) Ernesto Carlin MD documented in this encounterOhio State Health System07-12-2023 NoteHNO ID: [id number] Author: Jessenia Grace MD Service: ? Author [...] rarely Drug use: N (more content not included)...[facility]07-12-2023 History of Present illness Narrative* Jessenia Grace [...] 26, 2023 TIME: 2:13 PM PAGER/CONTACT #: [phone] documented in this encounterOhio State Health System05-05-2023 History of Past illness Narrative* Problem Noted [...] of this encounter (statuses as of 07/01/2023) [facility] History of Past illness Narrative* Problem Noted [...] of this encounter (statuses as of 12/31/2023) [facility] Surgical operation note* Operative Report - Jessenia Grace MD - 01/17/2023 8:35 AM EDT OPERATIVE/PROCEDURE REPORT LOG ID: [id number] Surgery/Procedure Date: Incision/Procedure Start Time: 8:42 AM Incision Close/Procedure End Time: 8:45 AM Surgeon(s)/Proceduralist(s) and Wash Box Operator(s): Surgeon(s) and Role: * Jessenia Grace MD [...] 8:51 AM PAGER/CONTACT #: documented in this encounterOhio State Health System05-05-2023 History and physical note * Julio Dial APRN.ASSISTANT HEAD CASHIER - 01/17/2023 8:30 AM EDT . HISTORY [...] Prior to Admission medications as of 01/17/23 2373 Medication Sig Last Dose Taking SUMAtriptan (IMITREX) 100 mg tablet Take 1 tablet by mouth as needed for migraine headache (see administration instructions). Past Week Yes omeprazole (PRILOSEC) 40 mg capsule Take 1 capsule by mouth once daily. 01/16/2023 Yes hydrocortisone (ANUSOL-HC) 2.5 % rectal cream by RECTAL route twice daily. 01/10/2023 [place]-Hg-Swm-Fe-FA tab Take 1 tablet by mouth once [...] requiring medication, no history of angina, CHF, DE, cardiac surgery or stents. Denies rest pain, gangrene or revascularization/amputation for PVD. No history of cardiovascular symptoms or problems. No history of angina, CHF, DE, cardiac surgery or stents. Denies chest pain [...] which included preparing to see the patient, rysl-wm-jspj patient care, completing clinical documentation, obtaining and/or reviewing separately obtained history, performing a medically appropriate examination, and counseling and educating the patient/family/caregiver. SIGNATURE: Julio Dial APRN.CNP PATIENT NAME: Dane Olivera DATE: January 17, 2023 TIME: 7:22 AM PAGER/CONTACT #: documented in this encounterOhio State Health System04-19-2023 NoteHNO ID: [id number] Author: Jessenia Grace MD Service: ? Author [...] Take 1 capsule by mouth once daily. Mtijltqi-Sv-Svu-Fe-FA tab Take 1 tablet by mouth once daily. (Patient not taking: Reported on 01/01/2023) No current facility-administered medications for this visit. ALLERGIES: ALLERGIES Allergen Reactions Amoxicillin Unknown WAS TOLD BY MOM COMPLETE REVIEW OF SYSTEMS: Review of Systems Constitutional: Negative for chi (more content not included)...[facility]04-19-2023 Miscellaneous Notes* Telephone Encounter - Ese Contreras MA - 01/01/2023 3:55 PM EDT EGD scheduled for 01/17/2023 at 8:30 am. Prep/instructions given to patient at checkout. Ese Contreras MA documented in this encounterOhio State Health System04-19-2023 Miscellaneous Notes* Addendum Note - Ese Contreras MA - 01/01/2023 3:54 PM EDTAddended by: ESE CONTRERAS on: 01/01/2023 03:54 PM Modules accepted: Orders documented in this encounterOhio State Health System04-19-2023 History of Present illness Narrative* Jessenia Grace [...] Take 1 capsule by mouth once daily. Edbgjsfq-Lc-Jht-Fe-FA tab Take 1 tablet by mouth once [...] 01, 2023 TIME: 2:25 PM PAGER/CONTACT #: [phone] documented in this encounterOhio State Health System03-28-2023 History of Present illness Narrative* Ernesto Carlin [...] Take 1 capsule by mouth once daily. Gxkfatxv-Le-Stk-Fe-FA tab Take 1 tablet by mouth once [...] APPLICATOR Ernesto Carlin MD documented in this encounterOhio State Health System03-28-2023 History of Present illness Narrative* Alysha Ruff APRN.ASSISTANT HEAD CASHIER - 12/10/2022 9:45 AM EDT Dane Olivera is a 37 year old year old female who presents for a EVENT SALES REPRESENTATIVE problem visit for IUD check. Mirena IUD [...] placed. Alysha Ruff APRN.CNP documented in this encounterOhio State Health System02-17-2023 Instructions* Patient Instructions* Alysha Ruff APRN.CNP - [...] experiencing severe pelvic pain. documented in this encounterOhio State Health System02-17-2023 Procedure note* Alysha Ruff APRN.CNP - 11/01/2022 [...] (exact date). Informed Consent Consent Obtained: Written [place] Protocol A moment to CARE was completed. [...] yes IUD type: Mirena IUD Lot #: [id number] Expiration Date: 07/16/2024 Strings trimmed. Post-Procedure Details: Patient tolerated the procedure well with no immediate complications Patient Education: side effects discussed with patient including irregular spotting. Patient to follow-up PRN any problems. SIGN OUT All instruments, equipment, possible retained foreign bodies accounted for. Post-procedure follow-up management communicated and Plan of Care Visit completed when applicable Alysha Ruff APRN.ASSISTANT HEAD CASHIER documented in this encounterOhio State Health System02-08-2023 History of Present illness Narrative* Tricia Rangel MD - 10/23/2022 3:14 PM EST VISIT Dane Olivera is a 37 year old year old here for visit. Delivery Summary: c/s on 09/12 complicated by chtn, no meds ROS/ Recovery: Feeding: Breast and bottle feeding problems: None Menses since delivery: spotting Menstrual pattern prior to : Regular periods [place] since delivery: Resumed Depression: denies symptoms of [...] external genitalia normal, normal Bartholin's glands, urethra, Elyria's glands, no vulvar lesions, no cervical lesions, [...] pcp Tricia Rangel MD documented in this encounterOhio State Health System02-07-2023 Miscellaneous Notes* Telephone Encounter - Diane Lee - 10/22/2022 8:56 AM EST Pt LVM requesting to [facility] appt walter/ Kim for hernia. Called back PT no answer LVM documented in this encounterOhio State Health System01-24-2023 History of Present illness Narrative* Ernesto Carlin [...] 1 tablet by mouth every 6 hours. Ldoidenj-El-Ahq-Fe-FA tab Take 1 tablet by mouth once [...] visit Ernesto Carlin MD documented in this encounterOhio State Health System01-05-2023 Miscellaneous Notes* Telephone Encounter - Michelle Osborn LPN - 09/19/2022 9:23 AM EST Requested Prescriptions Pending Prescriptions Disp Refills SUMAtriptan (IMITREX) 50 mg tablet 12 tablet 2 Sig: Take 1 tablet by mouth as needed. documented in this encounterOhio State Health System12-28-2022 History of Past illness Narrative* Problem Noted [...] of this encounter (statuses as of 10/08/2022) [facility] of Past illness Narrative* Problem Noted [...] of this encounter (statuses as of 10/22/2022) [facility] of Past illness Narrative* Problem Noted [...] of this encounter (statuses as of 10/23/2022) [facility] of Past illness Narrative* Problem Noted [...] of this encounter (statuses as of 11/01/2022) [facility] of Past illness Narrative* Problem Noted [...] of this encounter (statuses as of 11/07/2022) [facility] of Past illness Narrative* Problem Noted [...] of this encounter (statuses as of 12/10/2022) [facility] of Past illness Narrative* Problem Noted [...] of this encounter (statuses as of 12/10/2022) [facility] of Past illness Narrative* Problem Noted [...] of this encounter (statuses as of 01/02/2023) [facility] of Past illness Narrative* Problem Noted [...] of this encounter (statuses as of 01/02/2023) [facility] of Past illness Narrative* Problem Noted [...] of this encounter (statuses as of 01/18/2023) [facility] of Past illness Narrative* Problem Noted [...] of this encounter (statuses as of 03/27/2023) [facility] Miscellaneous Notes* Quick Notes - Tricia Rangel MD - 09/04/2022 2:42 PM EST Good fm Labor precautions Gdma1- fsbg reviewed only 3 abnormal values Continue diet Weekly nst Reactive nst iol at 38 wga scheduled Hsv- valtrex suppression Gbs positive- abx in labor Chtn- no elevated bps noted, no meds [place]- less than 40 y/o no testing noted .Tricia Rangel MD documented in this encounterOhio State Health System12-21-2022 Nurse Note* Radha Moore MA - 09/04/2022 2:22 PM EST Movement? Active baby Vaginal Bleeding: NO Vaginal fluid leakage of fluid: NO Contractions: Octavio-Mckinley type Edema: Negative Radha Moore MA documented in this encounterOhio State Health System12-16-2022 Miscellaneous Notes* Quick Notes - Tato Browning MD - 08/30/2022 2:43 PM EST EFW 76%, darlyn 9, BPP 8/8 BS look good, 1 FBS of 98 IOL pm of 09/09 at 38 wks NST melanie next wk Tato Browning MD, MD documented in this encounterOhio State Health System12-16-2022 Nurse Note* Radha Moore MA - 08/30/2022 2:36 PM EST Movement? Active baby Vaginal Bleeding: NO Vaginal fluid leakage of fluid: NO Contractions: [place]-Mckinley type Edema: Trace Radha Moore MA documented in this encounterOhio State Health System12-09-2022 Miscellaneous Notes* Quick Notes - Tato Browning [...] Tato Browning MD, MD documented in this encounterOhio State Health System12-09-2022 Nurse Note* Marielena Vidales MA - 08/23/2022 2:15 PM EST Movement? Active baby Vaginal Bleeding: NO Vaginal fluid leakage of fluid: NO Contractions: no contractions Edema: Negative Marielena Vidales MA documented in this encounterOhio State Health System12-02-2022 Miscellaneous Notes* Telephone Encounter - Tato Browning [...] Location Dept Phone 08/23/2022 2:00 PM NST 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 [facility] [phone] 08/23/2022 2:30 PM TATO BROWNING [facility] [phone] 08/30/2022 2:15 PM ULTRASOUND 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 [place] [phone] 08/30/2022 3:30 PM TATO BROWNING [place] [phone] 09/04/2022 2:00 PM NST 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 [place] [phone] 09/04/2022 2:30 PM TRICIA RANGEL [place] [phone] 10/08/2022 11:00 AM ERNESTO CARLIN AG [address] [facility] [phone] documented in this encounterOhio State Health System12-01-2022 Miscellaneous Notes* Quick Notes - Tato Browning MD - 08/15/2022 3:00 PM EST BS p BF and lunch creeping up, reviewed approp meals and fu next wk, ngozi since this time covered aneating holiday NST R, repeat next wk Tato Browning MD, MD documented in this encounterOhio State Health System11-22-2022 Miscellaneous Notes* Addendum Note - Yael Mahmood [...] feed Yael Hammond APRN.CNM documented in this encounterOhio State Health System11-22-2022 Instructions* Patient Instructions* Yael Mahmood APRN.CNM - [...] mom can give - Talk to your philatelic consultant, nurse, and/or doctor while at the hospital about - Ask about local support groups and resources that you can use if you have questions after you go home Please call the office before going to the hospital. If you are , go to the ER at the [facility]. Do not go to the outlying ER s ([place] or [place]). If you need to go to an ER and cannot or will not go downtown, please use one of [facility] s ERs (not [facility], [place] or [facility]). documented in this [facility]11-22-2022 Nurse Note* Radha Moore MA - 08/06/2022 1:04 PM EST Movement? Active baby Vaginal Bleeding: NO Vaginal fluid leakage of fluid: NO Contractions: no contractions Edema: Negative Radha Moore MA documented in this [facility]11-18-2022 Miscellaneous Notes* Quick Notes - Tato Browning MD - 08/02/2022 1:53 PM EST NST R, repeat next wk FBS now nl after changing her p dinner snack Test rx rewritten to reflex qID testing US in 2 wks Tato Browning MD, documented in this [facility]11-18-[facility] Nurse Note* Radha Moore MA - 08/02/2022 1:25 PM EST Movement? Active baby Vaginal Bleeding: NO Vaginal fluid leakage of fluid: NO Contractions: [place]-Mckinley type Edema: Trace Radha Moore MA documented in this encounterOhio State Health System11-04-2022 Instructions* Patient Instructions* Guanakito Angel PA-C - 07/19/2022 11:46 AM EDT Please call the office before going to the hospital. If you are , go to the ER at the [facility]. Do not go to the outlying ER s ([place], [place] or [place]). If you need to go to an ER and cannot or will not go downtown, please use one of [place] s ERs (not [facility], [place] or [facility]). COUNTING YOUR BABY'S MOVEMENTS Your Baby's [...] ready for the real thing. What do [place] Mckinley contractions feel like? [place] Mckin[place] contractions can be described as tightening [...] to 10 movements in one hour. References [employer]. False Labor Accessed 11/23/2015. [employer]. Contractions Accessed 11/23/2015. Copyright 4854-5929 [facility]. All rights reserved This information is provided by the [facility] and is not intended to replace the medical advice of your doctor or health care provider. Please consult your health care provider for advice about a specific medical condition. For additional health information, please contact the Center for Consumer Health Information at the [facility] or toll-free extension [phone]. If you prefer, you may visit [email or web address] or [email or web address]. This document was last reviewed on: 2015 index#5714 is the Best Feeding Your Baby's stomach [...] mom can give - Talk to your philatelic consultant, nurse, and/or doctor while at the hospital about - Ask about local support groups and resources that you can use if you have questions after you go home documented in this encounterOhio State Health System11-04-2022 Miscellaneous Notes* Quick Notes - Guanakito Angel [...] NST Guanakito Angel PA-C documented in this encounterOhio State Health System11-04-2022 Nurse Note* Eliz Friedman MA - 07/19/2022 11:17 AM EDT Movement? Active baby Vaginal Bleeding: NO Vaginal fluid leakage of fluid: NO Contractions: no contractions Edema: Negative Eliz Friedman MA documented in this encounterOhio State Health System10-21-2022 Instructions* Patient Instructions* Guanakito Angel PA-C - 07/05/2022 11:02 AM EDT Please call the office before going to the hospital. If you are , go to the ER at the [facility] [place]. Do not go to the outlying ER s ([place] or [place]). If you need to go to an ER and cannot or will not go downtown, please use one of [place] [facility] s ERs (not [place], [place] or [place]). [...] ready for the real thing. What do [place] Mckin[place] contractions feel like? [place] Mck[place] contractions can be described as tightening [...] to 10 movements in one hour. References [employer]. False Labor Accessed 11/23/2015. March . Contractions Accessed 11/23/2015. Copyright 2691-6813 [facility]. All rights reserved This information is provided by the [facility] and is not intended to replace the medical advice of your doctor or health care provider. Please consult your health care provider for advice about a specific medical condition. For additional health information, please contact the Center for Consumer Health Information at the [facility] or toll-free extension [phone]. If you prefer, you may visit [email or web address] or [email or web address]. This document was last reviewed on: 2015 index#8858 is the Best Feeding Your Baby's stomach [...] mom can give - Talk to your philatelic consultant, nurse, and/or doctor while at the hospital about - Ask about local support groups and resources that you can use if you have questions after you go home Type of Remedy: Constipation Safe Medications to Take During Methylcellulose fiber (Citrucel ) Docusate (Colace ) psyllium (Fiberall , Metamucil ) polycarbophil (FiberCon ) polyethylene glycol (MiraLAX )* *Occasional use only documented in this encounterOhio State Health System10-21-2022 Miscellaneous Notes* Quick Notes - Guanakito Angel PA-C - 07/05/2022 10:52 AM EDT [...] weeks Rtc 2 weeks, growth US Guanakito Anegl PA-C documented in this encounterOhio State Health System10-21-2022 Nurse Note* Marielena Vidales MA - 07/05/2022 10:26 AM EDT Movement? Active baby Vaginal Bleeding: NO Vaginal fluid leakage of fluid: NO Contractions: no contractions Edema: Trace Marielena Vidales MA documented in this encounterOhio State Health System10-21-2022 History of Present illness Narrative* Christina Barlow RN - 07/05/2022 9:32 AM EDT DIABETES SELF-MANAGEMENT EDUCATION AND SUPPORT Location: [place] Type of visit: Virtual (with video) individual [...] Race/Ethnic Origin: White/ Does your culture or shinto require any of the following: No cultural/worship practices affecting DM Do you have problems [...] Take 1 tablet by mouth twice daily. Jbgungrh-Tz-Aoy-Fe-FA tab Take 1 tablet by mouth once [...] July 05, 2022 TIME: 9:32 AM PAGER: [phone] documented in this encounterOhio State Health System10-21-2022 History of Present illness Narrative* Christina Ruiz RD - 07/05/2022 8:04 AM EDT DIABETES SELF-MANAGEMENT EDUCATION AND SUPPORT Location: [place] Type of visit: Virtual (with video) individual [...] Take 1 tablet by mouth twice daily. Gvhuftag-Nj-Aeu-Fe-FA tab Take 1 tablet by mouth once [...] TIME: 8:04 AM PAGER: documented in this encounterOhio State Health System10-14-2022 Miscellaneous Notes* Telephone Encounter - Celina Subramanian RN - 06/28/2022 3:41 PM EDT Aware of results and recommendations from [place]. Will product picker the equipment and keep a log [...] with diet only (no medications). She can product picker her supplies at her local pharmacy. [...] based on patient requirements. documented in this encounterOhio State Health System10-11-2022 Miscellaneous Notes* Telephone Encounter - Celina Subramanian RN - 06/25/2022 4:23 PM EDT Aware of results and will get the 3 hr done on Friday. Aware to fast for 8 hr and to take a snack for after the test. Celina Subramanian RN 1hr GTT:153 documented in this encounterOhio State Health System10-07-2022 Instructions* Patient Instructions* Guanakito Angel PA-C - 06/21/2022 1:30 PM EDT Please call the office before going to the hospital. If you are , go to the ER at the [facility]. Do not go to the outlying ER s ([place] or [place]). If you need to go to an ER and cannot or will not go downtown, please use one of [facility] s ERs (not [facility], [place] or [facility]). COUNTING YOUR BABY'S MOVEMENTS Your Baby's [...] have false labor pains, also known as [place] contractions. These irregular uterine contractions are perfectly normal and might start to occur from your fourth month of . They are your body s way of getting ready for the real thing. What do [place] contractions feel like? [place] contractions can be described as tightening [...] to 10 movements in one hour. References [employer]. False Labor Accessed 11/23/2015. [employer]. Contractions Accessed 11/23/2015. Copyright 1774-9385 [facility]. All rights reserved This information is provided by the [facility] and is not intended to replace the medical advice of your doctor or health care provider. Please consult your health care provider for advice about a specific medical condition. For additional health information, please contact the Center for Consumer Health Information at the [facility] or toll-free extension [phone]. If you prefer, you may visit [email or web address] or [email or web address]. This document was last reviewed on: 2015 index#0695 is the Best Feeding Your Baby's stomach [...] mom can give - Talk to your philatelic consultant, nurse, and/or doctor while at the hospital about - Ask about local support groups and resources that you can use if you have questions after you go home documented in this encounterOhio State Health System10-07-2022 Miscellaneous Notes* Quick Notes - Guanakito Angel PA-C - 06/21/2022 1:20 PM EDT + FM. No leaking/bleeding/contractions. Planning . PPBC - discussed. Third trimester labs ordered. GUERO and PTL precautions discussed. Hx HSV: plan suppression at 36 weeks. AMA, Obesity: Plan for t5sljxr growth US at 32 weeks, weekly NSTs at 36 weeks. rtc 2 weeks Guanakito Angel PA-C documented in this encounterOhio State Health System10-07-2022 Nurse Note* Radha Moore MA - 06/21/2022 1:14 PM EDT Movement? Active baby Vaginal Bleeding: NO Vaginal fluid leakage of fluid: NO Contractions: no contractions Edema: Negative Radha Moore MA documented in this encounterOhio State Health System08-26-2022 Instructions* Patient Instructions* Guanakito Angel PA-C - 05/10/2022 8:52 AM EDT Please call the office before going to the hospital. If you are , go to the ER at the [facility]. Do not go to the outlying ER s ([place], [place] or [place]). If you need to go to an ER and cannot or will not go downtown, please use one of [place] s ERs (not [facility], [place] or [facility]). COUNTING YOUR BABY'S MOVEMENTS Your Baby's [...] have false labor pains, also known as [place] contractions. These irregular uterine contractions are perfectly normal and might start to occur from your fourth month of . They are your body s way of getting ready for the real thing. What do [place] contractions feel like? [place] contractions can be described as tightening [...] to 10 movements in one hour. References [employer]. False Labor Accessed 11/23/2015. [employer]. Contractions Accessed 11/23/2015. Copyright 0514-8071 [facility]. All rights reserved This information is provided by the [facility] and is not intended to replace the medical advice of your doctor or health care provider. Please consult your health care provider for advice about a specific medical condition. For additional health information, please contact the Center for Consumer Health Information at the [facility] or toll-free extension [phone]. If you prefer, you may visit [email or web address] or [email or web address]. This document was last reviewed on: 2015 index#9591 is the Best Feeding 1. Fxra-ii-ugeh is best for your baby A. Your [...] baby, no the clock documented in this encounterOhio State Health System08-26-2022 Nurse Note* Anat Arce LPN - 05/10/2022 8:38 AM EDT Movement? Active baby Vaginal Bleeding: NO Vaginal fluid leakage of fluid: NO Contractions: no contractions Edema: Negative Anat Arce LPN documented in this encounterOhio State Health System08-26-2022 Miscellaneous Notes* Quick Notes - Guanakito Angel [...] weeks Guanakito Angel PA-C documented in this encounterOhio State Health System08-22-2022 History of Present illness Narrative* Ernesto Carlin [...] 8 OUNCES OF LIQUID AND TAKE DIRECTED. Bwvchjjk-Fa-Tmw-Fe-FA tab Take 1 tablet by mouth once [...] <130/80 Ernesto Carlin MD documented in this encounterOhio State Health System07-22-2022 Miscellaneous Notes* Addendum Note - Guanakito Angel [...] weeks Guanakito Angel PA-C documented in this encounterOhio State Health System07-22-2022 History of Present illness Narrative* Ernesto Carlin [...] 8 HOURS NEEDED FOR NAUSEA AND VOMITING Jnowiass-Zg-Gqs-Fe-FA tab Take 1 tablet by mouth once [...] monitor Ernesto Carlin MD documented in this encounterOhio State Health System07-22-2022 Instructions* Patient Instructions* Guanakito Angel PA-C - 04/05/2022 9:20 AM EDT Please call the office before going to the hospital. If you are , go to the ER at the [facility] [place]. Do not go to the outlying ER s ([place] or [place]). If you need to go to an ER and cannot or will not go downtown, please use one of [facility] s ERs (not [place] or [place]). is the best feeding [...] both mother and baby documented in this encounterOhio State Health System07-22-2022 Nurse Note* Eliz Friedman MA - 04/05/2022 8:47 AM EDT Movement? Too early Vaginal Bleeding: Yes provider notified Vaginal fluid leakage of fluid: NO Contractions: no contractions Edema: Negative Eliz Friedman MA documented in this encounterOhio State Health System07-14-2022 History of Past illness Narrative* Problem Noted [...] of this encounter (statuses as of 09/20/2022) [facility] of Past illness Narrative* Problem Noted [...] of this encounter (statuses as of 10/04/2022) [facility] Miscellaneous Notes* Telephone Encounter - Ольга Cook APRN.CNP - 02/21/2022 12:18 PM EDT .The following approved medication requests have been transmitted electronically. Signed Prescriptions Disp Refills ondansetron (ZOFRAN) 8 mg tablet 30 tablet 1 Sig: Take 1 tablet by mouth every 8 hours as needed for nausea/vomiting. Ольга Cook APRN.CNP documented in this encounterOhio State Health System06-02-2022 Instructions* Patient Instructions* Tato Browning MD - [...] your questions and concerns. documented in this encounterOhio State Health System06-02-2022 History of Present illness Narrative* Tato Browning [...] Tato Browning MD, MD documented in this encounterOhio State Health System05-27-2022 History of Present illness Narrative* Ernesto Carlin [...] severe Ernesto Carlin MD documented in this encounterOhio State Health System05-20-2022 Miscellaneous Notes* Telephone Encounter - Michelle Osborn LPN - 02/01/2022 7:57 AM EDT Pending Prescriptions Disp Refills LISINOPRIL 10 MG TABLET 90 tablet 0 Sig: TAKE 1 TABLET BY MOUTH EVERY DAY THEA: documented in this encounterOhio State Health System05-09-2022 Miscellaneous Notes* Telephone Encounter - Celina Subramanian RN - 01/21/2022 10:11 AM EDT Aware of results and transferred to scheduling. HCG : 1,620. US pended. 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) 07/07/2018 Drug use disorder remission since 06/2019; [...] MG TABLET - BENZONATATE 100 MG CAPSULE Ernseto Carlin MD documented in this encounterOhio State Health System04-26-2022 History of Present illness Narrative* had bronchitis [...] she caryn non-smoker denies any wheezing. [facility] Work Phone: [phone] Miscellaneous Notes* Telephone Encounter - Chelsea Winters Ma - 01/07/2022 10:38 AM EDT Patient phones requesting refills as follows: Pending Prescriptions Disp Refills SUMATRIPTAN 50 MG TABLET 12 tablet 5 Sig: TAKE 1 TABLET BY MOUTH NEEDED FOR MIGRAINE HEADACHE(SEE INSTRUCTIONS) THEA: Yes Please review and advise. Chelsea Winters Ma documented in this encounterOhio State Health System03-14-2022 History of Past illness Narrative* Problem Noted [...] of this encounter (statuses as of 02/08/2022) [facility] of Past illness Narrative* Problem Noted [...] of this encounter (statuses as of 02/14/2022) [facility] of Past illness Narrative* Problem Noted [...] of this encounter (statuses as of 02/14/2022) [facility] of Past illness Narrative* Problem Noted [...] of this encounter (statuses as of 02/21/2022) [facility] of Past illness Narrative* Problem Noted [...] of this encounter (statuses as of 03/11/2022) [facility] of Past illness Narrative* Problem Noted [...] of this encounter (statuses as of 03/25/2022) [facility] of Past illness Narrative* Problem Noted [...] of this encounter (statuses as of 04/05/2022) [facility] of Past illness Narrative* Problem Noted [...] of this encounter (statuses as of 04/05/2022) [facility] of Past illness Narrative* Problem Noted [...] of this encounter (statuses as of 04/16/2022) [facility] of Past illness Narrative* Problem Noted [...] of this encounter (statuses as of 04/24/2022) [facility] of Past illness Narrative* Problem Noted [...] of this encounter (statuses as of 04/29/2022) [facility] of Past illness Narrative* Problem Noted [...] of this encounter (statuses as of 05/03/2022) [facility] of Past illness Narrative* Problem Noted [...] of this encounter (statuses as of 05/06/2022) [facility] of Past illness Narrative* Problem Noted [...] of this encounter (statuses as of 05/07/2022) [facility] of Past illness Narrative* Problem Noted [...] of this encounter (statuses as of 05/10/2022) [facility] of Past illness Narrative* Problem Noted [...] of this encounter (statuses as of 05/21/2022) [facility] Past illness Narrative* Problem Noted [...] of this encounter (statuses as of 05/21/2022) [facility] Past illness Narrative* Problem Noted [...] of this encounter (statuses as of 06/10/2022) [facility] illness Narrative* Problem Noted [...] of this encounter (statuses as of 06/19/2022) [facility] Narrative* Problem Noted [...] of this encounter (statuses as of 06/21/2022) [facility] Narrative* Problem Noted [...] of this encounter (statuses as of 06/25/2022) [facility] Narrative* Problem Noted [...] of this encounter (statuses as of 06/28/2022) [facility] Narrative* Problem Noted [...] of this encounter (statuses as of 07/01/2022) [facility] Narrative* Problem Noted [...] of this encounter (statuses as of 07/05/2022) [facility] illness Narrative* Problem Noted [...] of this encounter (statuses as of 07/05/2022) [facility] Narrative* Problem Noted [...] of this encounter (statuses as of 07/05/2022) [facility] Narrative* Problem Noted [...] of this encounter (statuses as of 07/18/2022) [facility] Narrative* Problem Noted [...] of this encounter (statuses as of 07/19/2022) [facility] Narrative* Problem Noted [...] of this encounter (statuses as of 07/19/2022) [facility] Narrative* Problem Noted [...] of this encounter (statuses as of 07/31/2022) [facility] Narrative* Problem Noted [...] of this encounter (statuses as of 08/02/2022) [facility] Narrative* Problem Noted [...] of this encounter (statuses as of 08/02/2022) [facility] Narrative* Problem Noted [...] of this encounter (statuses as of 08/06/2022) [facility] Narrative* Problem Noted [...] of this encounter (statuses as of 08/06/2022) [facility] Narrative* Problem Noted [...] of this encounter (statuses as of 08/15/2022) [facility] Narrative* Problem Noted [...] of this encounter (statuses as of 08/16/2022) [facility] Narrative* Problem Noted [...] of this encounter (statuses as of 08/22/2022) [facility] Narrative* Problem Noted [...] of this encounter (statuses as of 08/23/2022) [facility] Narrative* Problem Noted [...] of this encounter (statuses as of 08/23/2022) [facility] Narrative* Problem Noted [...] of this encounter (statuses as of 08/30/2022) [facility] Narrative* Problem Noted [...] of this encounter (statuses as of 08/30/2022) [facility] Narrative* Problem Noted [...] of this encounter (statuses as of 09/04/2022) [facility] Narrative* Problem Noted [...] of this encounter (statuses as of 09/04/2022) [facility] Narrative* Problem Noted [...] of this encounter (statuses as of 01/07/2022) [facility] Narrative* Problem Noted [...] of this encounter (statuses as of 01/11/2022) [facility] Narrative* Problem Noted [...] of this encounter (statuses as of 01/18/2022) [facility] Narrative* Problem Noted [...] of this encounter (statuses as of 01/21/2022) [facility] Narrative* Problem Noted [...] of this encounter (statuses as of 02/01/2022) [facility] System[facility] Author Guille Shin [facility] Note Date/Time February 14, 2025 6:12p m [facility] Medical Records Department [address] [place] [address] Anesthesia Postop Eval II 02/14/25 1637 MR#: [id number] Acct: [id number] Name: DANE OLIVERA Rep #:[id number] : 1985 39 From: Guille Shin MD PCP: Hui Valdes NP-C Status:REG S DC Y Race: C Location: [place] [address] Anesthesia Postop Eval I Sum Postop Eval Completion status Anesthesia document: Postop Eval 1 completed: Yes Anesthesia Postop Eval I Summary Anesthesia Postop Eval I Summary: Anesthesia Postop Eval I: Assessment Summary Airway patent Yes 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 Spontaneous unlabored Yes 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 respirations Mental status Awake,Calm 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 nausea No 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 Vomiting No 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 Anesthesia Postop Eval I: Fluid Summary Crystalloid volume administer 1,000 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 (ml) Colloids volume administered ( ml) Blood Product volume administered (ml) Total IV fluid infused 1,000 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 Anesthesia Postop Eval I: Summary Notes Anesthesia Complication No 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 Anesthesia Complication Comment: Post-operative progress note Anesthesia: Postop Eval II Evaluation Mental status: Awake Pain Level: 0 nausea: No Vomiting: No Complications Anesthesia Complication: No 02/14/25 1637 <Electronically signed by Guille Shin MD> Date _ Guille Shin MD Cosigner Signature: Date CC: ~ Signed [facility] Work Phone: Discharge summary Author Kayden mSith [facility] Note Date/Time February 22, 2025 4:01 am [facility] Medical Records Department [address] [place] [address] Emergency Department Summary 02/22/25 MR#: [id number] Acct: [id number] Name: DANE OLIVERA Rep #:[id number] : [...] it is in the right upper abdomen. [facility] Medical History Wears glasses Wears dentures [...] is following commands today she was at [facility] the year is 2024 Skin: Warm, dry, [...] % (Auto) 66.6 Lymph % (Auto) 23.7 [place] % (Auto) 7.2 Eos % (Auto) 1.5 [...] Dr. Smith at 3:41 am Reading Location: [place] [address] Discharge Plan Triage Chief Complaint: Abd Pain [...] Hui Valdes NP Referrals: Hui Valdes NP, RF TECHNICIAN-C [Primary Care Provider] - Print Language: Canadian Disposition Disposition: Acute Care Hospital [facility] What to do if you have Problems For any increased pain, shortness of breath, bleeding, nausea or vomiting, chestpain, or any unexpected problems, contact your Primary Care Provider. Call [facility] ([phone]) or report to the closest Emergency Room. Call 911 if necessary. 02/22/25 0401 <Electronically signed by Kayden Smith DO> Cosigner Signature (if applicable): CC: KOSTA Ames Podlogyashira ~ Signed [facility] Work Phone: Evaluation note* Diagnosis Acute bronchitis, unspecified organism- Primary Acute serous otitis media of left ear, recurrence not specified Acute diffuse otitis externa of left ear [facility]: [facility] note* Diagnosis Migraine without aura and without status migrainosus, not intractable Migraine without aura, without mention of intractable migraine without mention of status migrainosus documented [facility] encounter [facility]* Diagnosis Hypertension, essential- Primary Unspecified essential hypertension Bronchitis Bronchitis, not specified as acute or chronic documented [facility] this encounter [facility]* Diagnosis Women's annual routine gynecological examination- Primary Routine cervical smear Screening for malignant neoplasm of the cervix Secondary amenorrhea Absence of menstruation documented [facility] this encounter [facility]* Diagnosis care of multigravida, antepartum- Primary documented [facility] this encounter [facility]* Diagnosis Hypertension, essential Unspecified essential hypertension [facility] Diagnosis Hypertension, essential- Primary Unspecified essential hypertension GERD without esophagitis Esophageal reflux at early stage state, incidental Nausea and vomiting of , antepartum Unspecified vomiting of , antepartum Migraine without aura and without status migrainosus, not intractable Migraine without aura, without mention of intractable migraine without mention of status migrainosus documented [facility] this encounter [facility]* Diagnosis Amenorrhea, secondary- Primary Absence of menstruation Nausea and vomiting during documented [facility] this encounter [facility]* Diagnosis care of multigravida, antepartum [facility]* Diagnosis Nausea/vomiting in - Primary Unspecified vomiting of , unspecified as to episode of care documented [facility] this encounter [facility]* Diagnosis Secondary amenorrhea Absence of menstruation documented [facility] this encounter [facility]* Diagnosis Nausea/vomiting in Unspecified vomiting of , unspecified as to episode of care documented [facility] encounter [facility]* Diagnosis Multigravida of advanced maternal [...] specified as infective documented [facility] this encounter [facility]* Diagnosis Hypertension, essential- Primary Unspecified essential hypertension Preexisting hypertension complicating , antepartum Benign essential hypertension antepartum GERD without esophagitis Esophageal reflux Nausea and vomiting of , antepartum Unspecified vomiting of , antepartum Periumbilical hernia Umbilical hernia without mention of obstruction or gangrene documented [facility] this [facility]* Diagnosis Constipation, unspecified constipation type documented in this encounter [facility] note* Diagnosis Nausea/vomiting in Unspecified vomiting of , unspecified as to episode of care documented in this encounter [facility] note* Diagnosis PUD (peptic ulcer disease)- Primary Peptic ulcer, unspecified site, unspecified as acute or chronic, without mention of hemorrhage, perforation, or obstruction GERD without esophagitis Esophageal reflux Preexisting hypertension complicating , antepartum Benign essential hypertension antepartum documented [facility] encounter [facility]* Diagnosis Obesity complicating , second trimester- Primary Encounter for anatomic survey 20 weeks gestation of state, incidental documented in this encounter [facility] note* Diagnosis Preexisting hypertension complicating , antepartum- Primary Benign essential hypertension antepartum AMA (advanced maternal age) multigravida 35+, second trimester Obesity complicating , second trimester Headache in , second trimester 20 weeks gestation of state, incidental documented [facility] this encounter [facility]* Diagnosis Constipation, unspecified constipation type Headache in , second trimester documented [facility]* Diagnosis Headache in , second trimester documented in this encounter [facility] note* Diagnosis Nausea/vomiting in Unspecified vomiting of , unspecified as to episode of care documented in this encounter [facility] note* Diagnosis Headache in , second trimester documented [facility] this encounter [facility] note* Diagnosis AMA (advanced maternal age) multigravida 35+, second trimester- Primary 26 weeks gestation of state, incidental 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ng , antepartum, unspecified trimester Obesity complicating , first trimester Preexisting hypertension complicating , antepartum Benign essential hypertension antepartum History of drug use [facility] Diagnosis Headache in , second trimester [facility] Diagnosis Diet controlled gestational diabetes mellitus (GDM) in second trimester- Primary [facility] Diagnosis GDM (gestational diabetes mellitus), class A1 Abnormal maternal glucose tolerance, complicating , childbirth, or the puerperium, unspecified as to episode of care Diet controlled gestational diabetes mellitus (GDM) in second trimester [facility] Diagnosis Gestational diabetes mellitus, class A1- Primary Abnormal maternal glucose tolerance, complicating , childbirth, or the puerperium, unspecified as to episode of care 28 weeks gestation of state, incidental Need for [id number]-whnkajbzj (Tdap) vaccine Need for prophylactic vaccination with combined awrqpevozf-ddcmfkl-tfulofnhg (DTP) vaccine Obesity complicating , third trimester Constipation, unspecified constipation type 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ng , antepartum, unspecified trimester AMA (advanced maternal age) multigravida 35+, third trimester Preexisting hypertension complicating , antepartum Benign essential hypertension antepartum [facility] Diagnosis Headache in , second trimester [facility] Diagnosis Gestational diabetes mellitus, class [...] of state, incidental [facility] Diagnosis Gestational diabetes mellitus, class A1 Abnormal maternal glucose tolerance, complicating , childbirth, or the puerperium, unspecified as to episode of care [facility] Diagnosis Headache in , second trimester 32 weeks gestation of - Primary state, incidental [facility] Diagnosis 32 weeks gestation of - Primary state, incidental [facility] Diagnosis Preexisting hypertension complicating , antepartum- Primary Benign essential hypertension antepartum 32 weeks gestation of state, incidental GDM (gestational diabetes mellitus), class A1 Abnormal maternal glucose tolerance, complicating , childbirth, or the puerperium, unspecified as to episode of care [facility] Diagnosis 32 weeks gestation of - Primary state, incidental [facility] Diagnosis AMA (advanced maternal age) multigravida 35+, third trimester- Primary Obesity complicating , third trimester Gestational diabetes mellitus, class A1 Abnormal maternal glucose tolerance, complicating , childbirth, or the puerperium, unspecified as to episode of care Preexisting hypertension complicating , antepartum Benign essential hypertension antepartum 33 weeks gestation of state, incidental Non-stress test reactive Other specified screening [facility] Diagnosis 34 weeks gestation of - Primary state, incidental [facility] Diagnosis Preexisting hypertension complicating , antepartum- Primary Benign essential hypertension antepartum 34 weeks gestation of state, incidental Gestational diabetes mellitus, class A1 Abnormal maternal glucose tolerance, complicating , childbirth, or the puerperium, unspecified as to episode of care [facility]* Diagnosis Headache in , second trimester [facility] Diagnosis Headache in , second trimester 35 weeks gestation of - Primary state, incidental [facility] Diagnosis 35 weeks gestation of - Primary state, incidental [facility]* Diagnosis Preexisting hypertension complicating , antepartum- Primary Benign essential hypertension antepartum 35 weeks gestation of state, incidental Gestational diabetes mellitus, class A1 Abnormal maternal glucose tolerance, complicating , childbirth, or the puerperium, unspecified as to episode of care [facility]* Diagnosis AMA (advanced maternal age) multigravida 35+, third trimester Obesity complicating , third trimester [facility] Diagnosis Preexisting hypertension complicating , antepartum- Primary Benign essential hypertension antepartum 36 weeks gestation of state, incidental Gestational diabetes mellitus, class A1 Abnormal maternal glucose tolerance, complicating , childbirth, or the puerperium, unspecified as to episode of care 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ng , antepartum, unspecified trimester [facility] Diagnosis 36 weeks gestation of - Primary state, incidental [facility] Diagnosis 37 weeks gestation of - Primary state, incidental Preexisting hypertension complicating , antepartum Benign essential hypertension antepartum Diet controlled gestational diabetes mellitus (GDM) in second trimester 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ng , antepartum, unspecified trimester Group B Streptococcus carrier, antepartum Other current maternal conditions classifiable elsewhere, antepartum [facility] Diagnosis Migraine without aura and without status migrainosus, not intractable Migraine without aura, without mention of intractable migraine without mention of status migrainosus [facility] Diagnosis Yeast dermatitis- Primary Candidiasis [...] of gestational diabetes [facility] Diagnosis care and examination- Primary Routine follow-up examination or test, unconfirmed [facility] Diagnosis Encounter for IUD insertion- Primary Encounter for insertion of intrauterine contraceptive device Routine screening for STI (sexually transmitted infection) Screening examination for venereal disease [facility] Diagnosis Encounter for routine checking of intrauterine contraceptive device (IUD)- Primary [facility]* Diagnosis Hypertension, essential- Primary Unspecified essential hypertension History of gestational diabetes Personal history of gestational diabetes Obesity, Class II, BMI 35-39.9 Obesity, unspecified GERD without esophagitis Esophageal reflux PUD (peptic ulcer disease) Peptic ulcer, unspecified site, unspecified as acute or chronic, without mention of hemorrhage, perforation, or obstruction External hemorrhoid External hemorrhoids without mention of complication [facility] Diagnosis Ventral hernia without obstruction or gangrene- Primary Ventral hernia, unspecified, without mention of obstruction or gangrene Class 2 severe obesity with serious comorbidity and body mass index (BMI) of 36.0 to 36.9 in adult, unspecified obesity type (HCC) Gastroesophageal reflux disease, unspecified whether esophagitis present Hypertension, unspecified type [facility]* Diagnosis Gastroesophageal reflux disease,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 investigate or prosecute any alcohol or drug abuse patient.[facility] SystemIn the event this information is protected by the Federal Confidentiality of Alcohol and Drug Abuse Patient Records regulations: The Federal rules restrict any use of the information to criminally investigate or prosecute any alcohol or drug abuse patient.[facility] SystemIn the event this information is protected by the Federal Confidentiality of Alcohol and Drug Abuse Patient Records regulations: The Federal rules restrict any use of the information to criminally investigate or prosecute any alcohol or drug abuse patient.[facility] SystemIn the event this information is protected by the Federal Confidentiality of Alcohol and Drug Abuse Patient Records regulations: The Federal rules restrict any use of the information to criminally investigate or prosecute any alcohol or drug abuse patient.[facility] SystemIn the event this information is protected by the Federal Confidentiality of Alcohol and Drug Abuse Patient Records regulations: The Federal rules restrict any use of the information to criminally investigate or prosecute any alcohol or drug abuse patient.[facility] SystemIn the event this information is protected by the Federal Confidentiality of Alcohol and Drug Abuse Patient Records regulations: The Federal rules restrict any use of the information to criminally investigate or prosecute any alcohol or drug abuse patient.[facility] SystemIn the event this information is protected by the Federal Confidentiality of Alcohol and Drug Abuse Patient Records regulations: The Federal rules restrict any use of the information to criminally investigate or prosecute any alcohol or drug abuse patient.[facility] SystemIn the event this information is protected by the Federal Confidentiality of Alcohol and Drug Abuse Patient Records regulations: The Federal rules restrict any use of the information to criminally investigate or prosecute any alcohol or drug abuse patient.[facility] SystemIn the event this information is protected by the Federal Confidentiality of Alcohol and Drug Abuse Patient Records regulations: The Federal rules restrict any use of the information to criminally investigate or prosecute any alcohol or drug abuse patient.[facility] SystemIn the event this information is protected by the Federal Confidentiality of Alcohol and Drug Abuse Patient Records regulations: The Federal rules restrict any use of the information to criminally investigate or prosecute any alcohol or drug abuse patient.[facility] SystemIn the event this information is protected by [...] or prosecute any alcohol or drug abuse patient.[facility] SystemIn the event this information is protected by the Federal Confidentiality of Alcohol and Drug Abuse Patient Records regulations: The Federal rules restrict any use of the information to criminally investigate or prosecute any alcohol or drug abuse patient.[facility] SystemIn the event this information is protected by the Federal Confidentiality of Alcohol and Drug Abuse Patient Records regulations: The Federal rules restrict any use of the information to criminally investigate or prosecute any alcohol or drug abuse patient.[facility] SystemIn the event this information is protected by the Federal Confidentiality of Alcohol and Drug Abuse Patient Records regulations: The Federal rules restrict any use of the information to criminally investigate or prosecute any alcohol or drug abuse patient.[facility] SystemIn the event this information is protected by the Federal Confidentiality of Alcohol and Drug Abuse Patient Records regulations: The Federal rules restrict any use of the information to criminally investigate or prosecute any alcohol or drug abuse patient.[facility] SystemIn the event this information is protected by the Federal Confidentiality of Alcohol and Drug Abuse Patient Records regulations: The Federal rules restrict any use of the information to criminally investigate or prosecute any alcohol or drug abuse patient.[facility] SystemIn the event this information is protected by the Federal Confidentiality of Alcohol and Drug Abuse Patient Records regulations: The Federal rules restrict any use of the information to criminally investigate or prosecute any alcohol or drug abuse patient.[facility] SystemIn the event this information is protected by the Federal Confidentiality of Alcohol and Drug Abuse Patient Records regulations: The Federal rules restrict any use of the information to criminally investigate or prosecute any alcohol or drug abuse patient.[facility] SystemIn the event this information is protected by the Federal Confidentiality of Alcohol and Drug Abuse Patient Records regulations: The Federal rules restrict any use of the information to criminally investigate or prosecute any alcohol or drug abuse patient.[facility] SystemIn the event this information is protected by the Federal Confidentiality of Alcohol and Drug Abuse Patient Records regulations: The Federal rules restrict any use of the information to criminally investigate or prosecute any alcohol or drug abuse patient.[facility] SystemIn the event this information is protected by the Federal Confidentiality of Alcohol and Drug Abuse Patient Records regulations: The Federal rules restrict any use of the information to criminally investigate or prosecute any alcohol or drug abuse patient.[facility] SystemIn the event this information is protected by the Federal Confidentiality of Alcohol and Drug Abuse Patient Records regulations: The Federal rules restrict any use of the information to criminally investigate or prosecute any alcohol or drug abuse patient.[facility] SystemIn the event this information is protected by the Federal Confidentiality of Alcohol and Drug Abuse Patient Records regulations: The Federal rules restrict any use of the information to criminally investigate or prosecute any alcohol or drug abuse patient.[facility] SystemIn the event this information is protected by the Federal Confidentiality of Alcohol and Drug Abuse Patient Records regulations: The Federal rules restrict any use of the information to criminally investigate or prosecute any alcohol or drug abuse patient.[facility] SystemIn the event this information is protected by the Federal Confidentiality of Alcohol and Drug Abuse Patient Records regulations: The Federal rules restrict any use of the information to criminally investigate or prosecute any alcohol or drug abuse patient.[facility] SystemIn the event this information is protected by the Federal Confidentiality of Alcohol and Drug Abuse Patient Records regulations: The Federal rules restrict any use of the information to criminally investigate or prosecute any alcohol or drug abuse patient.[facility] SystemIn the event this information is protected by the Federal Confidentiality of Alcohol and Drug Abuse Patient Records regulations: The Federal rules restrict any use of the information to criminally investigate or prosecute any alcohol or drug abuse patient.[facility] SystemIn the event this information is protected by the Federal Confidentiality of Alcohol and Drug Abuse Patient Records regulations: The Federal rules restrict any use of the information to criminally investigate or prosecute any alcohol or drug abuse patient.[facility] SystemIn the event this information is protected by the Federal Confidentiality of Alcohol and Drug Abuse Patient Records regulations: The Federal rules restrict any use of the information to criminally investigate or prosecute any alcohol or drug abuse patient.[facility] SystemIn the event this information is protected by the Federal Confidentiality of Alcohol and Drug Abuse Patient Records regulations: The Federal rules restrict any use of the information to criminally investigate or prosecute any alcohol or drug abuse patient.[facility] SystemIn the event this information is protected by the Federal Confidentiality of Alcohol and Drug Abuse Patient Records regulations: The Federal rules restrict any use of the information to criminally investigate or prosecute any alcohol or drug abuse patient.[facility] SystemIn the event this information is protected by the Federal Confidentiality of Alcohol and Drug Abuse Patient Records regulations: The Federal rules restrict any use of the information to criminally investigate or prosecute any alcohol or drug abuse patient.[facility] SystemIn the event this information is protected by the Federal Confidentiality of Alcohol and Drug Abuse Patient Records regulations: The Federal rules restrict any use of the information to criminally investigate or prosecute any alcohol or drug abuse patient.[facility] SystemIn the event this information is protected by the Federal Confidentiality of Alcohol and Drug Abuse Patient Records regulations: The Federal rules restrict any use of the information to criminally investigate or prosecute any alcohol or drug abuse patient.[facility] SystemIn the event this information is protected by the Federal Confidentiality of Alcohol and Drug Abuse Patient Records regulations: The Federal rules restrict any use of the information to criminally investigate or prosecute any alcohol or drug abuse patient.[facility] SystemIn the event this information is protected by the Federal Confidentiality of Alcohol and Drug Abuse Patient Records regulations: The Federal rules restrict any use of the information to criminally investigate or prosecute any alcohol or drug abuse patient.[facility] SystemIn the event this information is protected by the Federal Confidentiality of Alcohol and Drug Abuse Patient Records regulations: The Federal rules restrict any use of the information to criminally investigate or prosecute any alcohol or drug abuse patient.[facility] SystemIn the event this information is protected by the Federal Confidentiality of Alcohol and Drug Abuse Patient Records regulations: The Federal rules restrict any use of the information to criminally investigate or prosecute any alcohol or drug abuse patient.[facility] SystemIn the event this information is protected by the Federal Confidentiality of Alcohol and Drug Abuse Patient Records regulations: The Federal rules restrict any use of the information to criminally investigate or prosecute any alcohol or drug abuse patient.[facility] SystemIn the event this information is protected by the Federal Confidentiality of Alcohol and Drug Abuse Patient Records regulations: The Federal rules restrict any use of the information to criminally investigate or prosecute any alcohol or drug abuse patient.[facility] SystemIn the event this information is protected by the Federal Confidentiality of Alcohol and Drug Abuse Patient Records regulations: The Federal rules restrict any use of the information to criminally investigate or prosecute any alcohol or drug abuse patient.[facility] SystemIn the event this information is protected by the Federal Confidentiality of Alcohol and Drug Abuse Patient Records regulations: The Federal rules restrict any use of the information to criminally investigate or prosecute any alcohol or drug abuse patient.[facility] SystemIn the event this information is protected by the Federal Confidentiality of Alcohol and Drug Abuse Patient Records regulations: The Federal rules restrict any use of the information to criminally investigate or prosecute any alcohol or drug abuse patient.[facility] SystemIn the event this information is protected by the Federal Confidentiality of Alcohol and Drug Abuse Patient Records regulations: The Federal rules restrict any use of the information to criminally investigate or prosecute any alcohol or drug abuse patient.[facility] SystemIn the event this information is protected by the Federal Confidentiality of Alcohol and Drug Abuse Patient Records regulations: The Federal rules restrict any use of the information to criminally investigate or prosecute any alcohol or drug abuse patient.[facility] SystemIn the event this information is protected by the Federal Confidentiality of Alcohol and Drug Abuse Patient Records regulations: The Federal rules restrict any use of the information to criminally investigate or prosecute any alcohol or drug abuse patient.[facility] SystemIn the event this information is protected by the Federal Confidentiality of Alcohol and Drug Abuse Patient Records regulations: The Federal rules restrict any use of the information to criminally investigate or prosecute any alcohol or drug abuse patient.[facility] SystemIn the event this information is protected by the Federal Confidentiality of Alcohol and Drug Abuse Patient Records regulations: The Federal rules restrict any use of the information to criminally investigate or prosecute any alcohol or drug abuse patient.[facility] SystemIn the event this information is protected by the Federal Confidentiality of Alcohol and Drug Abuse Patient Records regulations: The Federal rules restrict any use of the information to criminally investigate or prosecute any alcohol or drug abuse patient.[facility] SystemIn the event this information is protected by the Federal Confidentiality of Alcohol and Drug Abuse Patient Records regulations: The Federal rules restrict any use of the information to criminally investigate or prosecute any alcohol or drug abuse patient.[facility] SystemIn the event this information is protected by the Federal Confidentiality of Alcohol and Drug Abuse Patient Records regulations: The Federal rules restrict any use of the information to criminally investigate or prosecute any alcohol or drug abuse patient.[facility] SystemIn the event this information is protected by the Federal Confidentiality of Alcohol and Drug Abuse Patient Records regulations: The Federal rules restrict any use of the information to criminally investigate or prosecute any alcohol or drug abuse patient.[facility] SystemIn the event this information is protected by the Federal Confidentiality of Alcohol and Drug Abuse Patient Records regulations: The Federal rules restrict any use of the information to criminally investigate or prosecute any alcohol or drug abuse patient.[facility] SystemIn the event this information is protected by the Federal Confidentiality of Alcohol and Drug Abuse Patient Records regulations: The Federal rules restrict any use of the information to criminally investigate or prosecute any alcohol or drug abuse patient.[facility] SystemIn the event this information is protected by the Federal Confidentiality of Alcohol and Drug Abuse Patient Records regulations: The Federal rules restrict any use of the information to criminally investigate or prosecute any alcohol or drug abuse patient.[facility] SystemIn the event this information is protected by the Federal Confidentiality of Alcohol and Drug Abuse Patient Records regulations: The Federal rules restrict any use of the information to criminally investigate or prosecute any alcohol or drug abuse patient.[facility] SystemIn the event this information is protected by the Federal Confidentiality of Alcohol and Drug Abuse Patient Records regulations: The Federal rules restrict any use of the information to criminally investigate or prosecute any alcohol or drug abuse patient.[facility] SystemIn the event this information is protected by the Federal Confidentiality of Alcohol and Drug Abuse Patient Records regulations: The Federal rules restrict any use of the information to criminally investigate or prosecute any alcohol or drug abuse patient.[facility] SystemIn the event this information is protected by the Federal Confidentiality of Alcohol and Drug Abuse Patient Records regulations: The Federal rules restrict any use of the information to criminally investigate or prosecute any alcohol or drug abuse patient.[facility] SystemIn the event this information is protected by [...] or prosecute any alcohol or drug abuse patient.[facility] SystemIn the event this information is protected by the Federal Confidentiality of Alcohol and Drug Abuse Patient Records regulations: The Federal rules restrict any use of the information to criminally investigate or prosecute any alcohol or drug abuse patient.[facility] SystemIn the event this information is protected by the Federal Confidentiality of Alcohol and Drug Abuse Patient Records regulations: The Federal rules restrict any use of the information to criminally investigate or prosecute any alcohol or drug abuse patient.[facility] SystemIn the event this information is protected by the Federal Confidentiality of Alcohol and Drug Abuse Patient Records regulations: The Federal rules restrict any use of the information to criminally investigate or prosecute any alcohol or drug abuse patient.[facility] SystemIn the event this information is protected by the Federal Confidentiality of Alcohol and Drug Abuse Patient Records regulations: The Federal rules restrict any use of the information to criminally investigate or prosecute any alcohol or drug abuse patient.[facility] SystemIn the event this information is protected by the Federal Confidentiality of Alcohol and Drug Abuse Patient Records regulations: The Federal rules restrict any use of the information to criminally investigate or prosecute any alcohol or drug abuse patient.[facility] SystemIn the event this information is protected by the Federal Confidentiality of Alcohol and Drug Abuse Patient Records regulations: The Federal rules restrict any use of the information to criminally investigate or prosecute any alcohol or drug abuse patient.[facility] SystemIn the event this information is protected by the Federal Confidentiality of Alcohol and Drug Abuse Patient Records regulations: The Federal rules restrict any use of the information to criminally investigate or prosecute any alcohol or drug abuse patient.[facility] SystemIn the event this information is protected by the Federal Confidentiality of Alcohol and Drug Abuse Patient Records regulations: The Federal rules restrict any use of the information to criminally investigate or prosecute any alcohol or drug abuse patient.[facility] SystemIn the event this information is protected by the Federal Confidentiality of Alcohol and Drug Abuse Patient Records regulations: The Federal rules restrict any use of the information to criminally investigate or prosecute any alcohol or drug abuse patient.[facility] SystemIn the event this information is protected by the Federal Confidentiality of Alcohol and Drug Abuse Patient Records regulations: The Federal rules restrict any use of the information to criminally investigate or prosecute any alcohol or drug abuse patient.[facility] SystemIn the event this information is protected by the Federal Confidentiality of Alcohol and Drug Abuse Patient Records regulations: The Federal rules restrict any use of the information to criminally investigate or prosecute any alcohol or drug abuse patient.[facility] SystemIn the event this information is protected by the Federal Confidentiality of Alcohol and Drug Abuse Patient Records regulations: The Federal rules restrict any use of the information to criminally investigate or prosecute any alcohol or drug abuse patient.[facility] SystemIn the event this information is protected by the Federal Confidentiality of Alcohol and Drug Abuse Patient Records regulations: The Federal rules restrict any use of the information to criminally investigate or prosecute any alcohol or drug abuse patient.[facility] Care Teams (unrecognized sec tion and content) Production Corrugator Relationship Specialty Start Date End Date Ernesto Carlin MD PCP - General Family Practice 07/07/18 Production Corrugator Relationship Specialty Start Date End Date Ernesto Carlin MD PCP - General Family Practice 07/07/18 Production Corrugator Relationship Specialty Start Date End Date Ernesto Carlin MD PCP - General Family Practice 07/07/18 Production Corrugator Relationship Specialty Start Date End Date Ernesto Carlin MD PCP - General Family Practice 07/07/18 Production Corrugator Relationship Specialty Start Date End Date Ernesto Carlin MD PCP - General Family Practice 07/07/18 Production Corrugator Relationship Specialty Start Date End Date Ernesto Carlin MD PCP - General Family Practice 07/07/18 Production Corrugator Relationship Specialty Start Date End Date Ernesto Carlin MD PCP - General Family Practice 07/07/18 Production Corrugator Relationship Specialty Start Date End Date Ernesto Carlin MD PCP - General Family Practice 07/07/18 Production Corrugator Relationship Specialty Start Date End Date Ernesto Carlin MD PCP - General Family Practice 07/07/18 Production Corrugator Relationship Specialty Start Date End Date Ernesto Carlin MD PCP - General Family Practice 07/07/18 Production Corrugator Relationship Specialty Start Date End Date Ernesto Carlin MD PCP - General Family Practice 07/07/18 Production Corrugator Relationship Specialty Start Date End Date Ernesto Carlin MD PCP - General Family Practice 07/07/18 Production Corrugator Relationship Specialty Start Date End Date Ernesto Carlin MD PCP - General Family Practice 07/07/18 Production Corrugator Relationship Specialty Start Date End Date Ernesto Carlin MD PCP - General Family Medicine 07/07/18 Production Corrugator Relationship Specialty Start Date End Date Ernesto Carlin MD PCP - General Family Medicine 07/07/18 Production Corrugator Relationship Specialty Start Date End Date Ernesto Carlin MD PCP - General Family Medicine 07/07/18 Production Corrugator Relationship Specialty Start Date End Date Ernesto Carlin MD PCP - General Family Medicine 07/07/18 Production Corrugator Relationship Specialty Start Date End Date Ernesto Carlin MD PCP - General Family Medicine 07/07/18 Production Corrugator Relationship Specialty Start Date End Date Ernesto Carlin MD PCP - General Family Medicine 07/07/18 Production Corrugator Relationship Specialty Start Date End Date Ernesto Carlin MD PCP - General Family Medicine 07/07/18 Production Corrugator Relationship Specialty Start Date End Date Ernesto Carlin MD PCP - General Family Medicine 07/07/18 Production Corrugator Relationship Specialty Start Date End Date Ernesto Carlin MD PCP - General Family Medicine 07/07/18 Production Corrugator Relationship Specialty Start Date End Date Ernesto Carlin MD PCP - General Family Medicine 07/07/18 Production Corrugator Relationship Specialty Start Date End Date Ernesto Carlin MD PCP - General Family Medicine 07/07/18 Production Corrugator Relationship Specialty Start Date End Date Enresto Carlin MD PCP - General Family Medicine 07/07/18 Production Corrugator Relationship Specialty Start Date End Date Ernesto Carlin MD PCP - General Family Medicine 07/07/18 Production Corrugator Relationship Specialty Start Date End Date Ernesto Carlin MD PCP - General Family Medicine 07/07/18 Production Corrugator Relationship Specialty Start Date End Date Ernesto Carlin MD PCP - General Family Medicine 07/07/18 Production Corrugator Relationship Specialty Start Date End Date Ernesto Carlin MD PCP - General Family Medicine 07/07/18 Production Corrugator Relationship Specialty Start Date End Date Ernesto Carlin MD PCP - General Family Medicine 07/07/18 Production Corrugator Relationship Specialty Start Date End Date Ernesto Carlin MD PCP - General Family Medicine 07/07/18 Production Corrugator Relationship Specialty Start Date End Date Ernesto Carlin MD PCP - General Family Medicine 07/07/18 Production Corrugator Relationship Specialty Start Date End Date Ernesto Carlin MD PCP - General Family Medicine 07/07/18 Production Corrugator Relationship Specialty Start Date End Date Ernesto Carlin MD PCP - General Family Medicine 07/07/18 Production Corrugator Relationship Specialty Start Date End Date Ernesto Carlin MD PCP - General Family Medicine 07/07/18 Production Corrugator Relationship Specialty Start Date End Date Ernesto Carlin MD PCP - General Family Medicine 07/07/18 Production Corrugator Relationship Specialty Start Date End Date Ernesto Carlin MD PCP - General Family Medicine 07/07/18 Production Corrugator Relationship Specialty Start Date End Date Ernesto Carlin MD PCP - General Family Medicine 07/07/18 Production Corrugator Relationship Specialty Start Date End Date Ernesto Carlin MD PCP - General Family Medicine 07/07/18 Production Corrugator Relationship Specialty Start Date End Date Ernesto Carlin MD PCP - General Family Medicine 07/07/18 Production Corrugator Relationship Specialty Start Date End Date Ernesto Carlin MD PCP - General Family Medicine 07/07/18 Production Corrugator Relationship Specialty Start Date End Date Trice Lieberman MD [address] [place] [address] PCP - General Family Medicine 07/05/24 PodlogarHui APRN.ASSISTANT HEAD CASHIER [address] [place] [address] Family Medicine 07/05/24 Production Corrugator Relationship Specialty Start Date End Date Trice Lieberman MD [address] [place] [address] PCP - General Family Medicine 07/05/24 PodlogarHui APRN.ASSISTANT HEAD CASHIER [address] [place] [address] Family Medicine 07/05/24 Production Corrugator Relationship Specialty Start Date End Date Trice Lieberman MD [address] [place] [address] PCP - General Family Medicine 07/05/24 Podlogar, JAZ Ames.ASSISTANT HEAD CASHIER [address] [place] [address] Family Medicine 07/05/24 Production Corrugator Relationship Specialty Start Date End Date Trice Lieberman MD [address] [place] [address] PCP - General Family Medicine 07/05/24 Podlogar, JAZ Ames.ASSISTANT HEAD CASHIER [address] [place] [place] [address] Family Medicine 07/05/24 Production Corrugator Relationship Specialty Start Date End Date Trice Lieberman MD [address] [place] [address] PCP - General Family Medicine 07/05/24 Podlogar, JAZ Ames.ASSISTANT HEAD CASHIER [address] [place] [address] Family Medicine 07/05/24 Production Corrugator Relationship Specialty Start Date End Date Trice Lieberman MD [address] [place] [address] PCP - General Family Medicine 07/05/24 Podlogar, JAZ Ames.ASSISTANT HEAD CASHIER [address] [place] [address] Family Medicine 07/05/24 Podlogar, JAZ Ames.ASSISTANT HEAD CASHIER [address] [facility] [place] [address] Electrical Engineering Technologist Family Medicine 08/21/24 Production Corrugator Relationship Specialty Start Date End Date Trice Lieberman MD [address] [place] [address] PCP - General Family Medicine 07/05/24 Podlogar, JAZ Ames.ASSISTANT HEAD CASHIER [address] [place] [address] Family Medicine 07/05/24 Podlogar, ARELY AmesN.ASSISTANT HEAD CASHIER [address] [place] [address] Electrical Engineering Technologist Family Medicine 08/21/24 Production Corrugator Relationship Specialty Start Date End Date Trice Lieberman MD [address] [place] [address] PCP - General Family Medicine 07/05/24 Podlogar, Hui 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 [address] [place] [address] Family Medicine 07/05/24 Podlogar, Hui, 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 [address] [place] [address] [facility] 08/21/24 Production Corrugator Relationship Specialty Start Date End Date Trice Lieberman MD [address] [place] [address] PCP - General Family Medicine 07/05/24 Podlogar, Hui, 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 [address] [place] [address] Family Medicine 07/05/24 Podlogar, Hui, 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 [address] [place] [address] Electrical Engineering Technologist Family Medicine 08/21/24 Kinza Basilio APRN.ASSISTANT HEAD CASHIER [address] [facility] [place] [address] Electrical Engineering Technologist Family Medicine 11/26/24 12/05/24 Kinza Basilio APRN.ASSISTANT HEAD CASHIER [address] [facility] [place] [address] [facility] 12/06/24 Production Corrugator Relationship Specialty Start Date End Date Trice Lieberman MD [address] [place] [address] PCP - General Family Medicine 07/05/24 Podlogar, Hui, 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 [address] [place] [address] Family Medicine 07/05/24 Podlogar, Hui, 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 [address] [place] [address] [facility] 08/21/24 Kinza Basilio 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 [address] [facility] [place] [address] [facility] 12/06/24 Production Corrugator Relationship Specialty Start Date End Date Trice Lieberman MD [address] [place] [address] PCP - General Family Medicine 07/05/24 Podlogar, Hui, 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 [address] [place] [address] Family Medicine 07/05/24 Podlogar, Hui, 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 [address] [place] [address] Electrical Engineering Technologist Family Medicine 08/21/24 Kinza Basilio 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 [address] [place] [address] Electrical Engineering Technologist Family Medicine 12/06/24 Team Status: Active Member Role Status Dates Hui Podlogar RF TECHNICIAN, RF TECHNICIAN-C Primary Care Provider Active Team Status: Inactive Member Role Status Dates Dr. Tato Prieto DO Attending Provider Active Start: January 15, 2025 End: January 15, 2025 Dr. Tato Prieto , Emergency Provider Active Start: January 15, 2025 End: January 15, 2025 Hui Podlogar RF TECHNICIAN, RF TECHNICIAN-C Primary Care Provider Active Start: January 15, 2025 End: January 15, 2025 Team Status: Inactive Member Role Status Dates Hui Podlogar RF TECHNICIAN, RF TECHNICIAN-C Primary Care Provider Active Start: February 02, 2025 End: February 02, 2025 Hui Podlogar RF TECHNICIAN, RF TECHNICIAN-C Referring Provider Active Start: February 02, 2025 End: February 02, 2025 Dr. Desean Rodriguez MD Attending Provider Active Start: February 02, 2025 End: February 02, 2025 Team Status: Inactive Member Role Status Dates Hui Podlogar RF TECHNICIAN, RF TECHNICIAN-C Primary Care Provider Active Start: February 14, 2025 End: February 14, 2025 Dr. Desean Rodriguez MD Attending Provider Active Start: February 14, 2025 End: February 14, 2025 Dr. Desean Rodriguez MD Referring Provider Active Start: February 14, 2025 End: February 14, 2025 Team Status: Active Member Role Status Dates Hui Ortizlogar RF TECHNICIAN, RF TECHNICIAN-C Primary Care Provider Active Start: February 14, 2025 Dr. Desean Rodriguez MD Attending Provider Active Start: February 14, 2025 Dr. Desean Rodriguez MD Referring Provider Active Start: February 14, 2025 Dr. Desean Rodriguez MD Other Provider Active St art: February 14, 2025 Team Status: Inactive Member Role Status Dates Hui Podlogar RF TECHNICIAN, RF TECHNICIAN-C Primary Care Provider Active Start: February 21, 2025 End: February 21, 2025 Dr. Yvon Becker , Emergency Provider Activ e Start: February 21, 2025 End: February 21, 2025 Team Status: Active Member Role Status Dates Hui Podlogar RF TECHNICIAN, RF TECHNICIAN-C Primary Care Provider Active Start: February 22, 2025 Dr. Kayden Smith DO Emergency Provider Active Start: February 22, 2025 Dr. Jerrell Garcia MD Admit Provider Active Start: February 22, 2025 Dr. Jerrell Garcia MD Attending Provider Active Start: February 22, 2025 Team Status: Inactive Member Role Status Dates Hui Podlogar RF TECHNICIAN, RF TECHNICIAN-C Primary Care Provider Active Start: February 22, [...] Active Member Role Status Dates Hui Podlogar RF TECHNICIAN, RF TECHNICIAN-C Primary Care Provider Active Start: February 22, 2025 Dr. Kayden Smith DO Emergency Provider Active Start: February 22, 2025 Dr. Jerrell Garcia MD Admit Provider Active Start: February 22, 2025 Dr. Jerrell Garcia MD Attending Provider Active Start: February 22, 2025 Dr. Jerrell Garcia MD Other Provider Active Start: February 22, 2025 Team Status: Active Member Role Status Dates Hui Podlogar RF TECHNICIAN, RF TECHNICIAN-C Primary Care Provider Active Start: February 23, 2025 Dr. Kayden Smith DO Emergency Provider Active Start: February 23, 2025 Dr. Jerrell Garcia MD Admit Provider Active Start: February 23, 2025 Dr. Jerrell Garcia MD Other Provider Active Start: February 23, 2025 Dr. Desean Rodriguez MD Attending Provider Active Start: February 23, 2025 Team Status: Active Member Role Status Dates Hui Podlogar RF TECHNICIAN, RF TECHNICIAN-C Primary Care Provider Active Start: February 24, 2025 Dr. Kayden Smith DO Emergency Provider Active Start: February 24, 2025 Dr. Jerrell Garcia MD Admit Provider Active Start: February 24, 2025 Dr. Jerrell Garcia MD Other Provider Active Start: February 24, 2025 Dr. Desean Rodriguez MD Attending Provider Active Start: February 24, 2025 Team Status: Inactive Member Role Status Dates Hui Podlogyashira RF TECHNICIAN, RF TECHNICIAN-C Primary Care Provider Active Start: February 21, 2025 End: February 21, 2025 Dr. Yvon Becker , DO Attending Provider Activ e Start: February 21, 2025 End: February 21, 2025 Dr. Yvon Becker , DO Emergency Provider Activ e Start: February 21, 2025 End: February 21, 2025 Team Status: Active Member Role Status Dates Hui Podlogar RF TECHNICIAN, RF TECHNICIAN-C Primary Care Provider Active Start: February 23, 2025 End: February 23, 2025 Dr. Meredith Peralta MD Attending Provider Active Start: February 23, 2025 End: February 23, 2025 Dr. Jerrell Garcia MD Referring Provider Active Start: February 23, 2025 End: February 23, 2025 Team Status: Inactive Member Role Status Dates Hui Podlogar RF TECHNICIAN, RF TECHNICIAN-C Primary Care Provider Active Start: March 09, 2025 End: March 09, 2025 Hui Podlogar RF TECHNICIAN, RF TECHNICIAN-C Referring Provider Active Start: March 09, 2025 End: March 09, 2025 Dr. Desean Rodriguez MD Attending Provider Active Start: March 09, 2025 End: March 09, 2025 Production Corrugator Relationship Specialty Start Date End Date Trice Lieberman MD [address] [place], [place] [id number] PCP - General Family Medicine 07/05/24 Podlogar, ARELY AmesN.ASSISTANT HEAD CASHIER [address] [place], [place] [address] Family Medicine 07/05/24 PodlogarHui APRN.ASSISTANT HEAD CASHIER [address] [facility], [place] [address] Electrical Engineering Technologist Family Medicine 08/21/24 Kinza Basilio APRN.ASSISTANT HEAD CASHIER [address] [place], [place] [id number] [phone] Electrical Engineering Technologist Family [facility] 02/24/25 Production Corrugator Relationship Specialty Start Date End Date Trice Lieberman MD [address] [place] [address] PCP - General Family Medicine 07/05/24 Podlogar, Hui 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 [address] [place] [address] Family Medicine 07/05/24 Podlogar, ARELY AmesN.ASSISTANT HEAD CASHIER [address] [place] [address] Electrical Engineering Technologist Family Medicine 08/21/24 Kinza Basilio APRN.ASSISTANT HEAD CASHIER [address] [place] [address] [facility] 02/24/25 Production Corrugator Relationship Specialty Start Date End Date Trice Lieberman MD [address] [place] [address] PCP - General Family Medicine 07/05/24 Podlogar, Hui, 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 [address] [place] [address] Family Medicine 07/05/24 Podlogar, Hui, 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 [address] [place] [address] [facility] Family Medicine 08/21/24 Kinza Basilio APRN.ASSISTANT HEAD CASHIER [address] [place] [address] Electrical Engineering Technologist Family Medicine 02/24/25 Production Corrugator Relationship Specialty Start Date End Date Trice Lieberman MD [address] [place] [address] PCP - General Family Medicine 07/05/24 Podlogar, Hui, 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 [address] [place] [address] Family Medicine 07/05/24 Podlogar, Hui, 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 [address] [place] [address] Electrical Engineering Technologist Family Medicine 08/21/24 Kinza Basilio 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 [address] [facility] [place] [address] [facility] 02/24/25 Production Corrugator Relationship Specialty Start Date End Date Trice Lieberman MD [address] [place] [address] PCP - General Family Medicine 07/05/24 Podlogar, Hui, 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 [place] [address] Family Medicine 07/05/24 Podlogar, Hui, 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 [address] [place] [address] Electrical Engineering Technologist Family Medicine 08/21/24 Kinza Basilio APRN.ASSISTANT HEAD CASHIER [address] [facility] [place] [address] Electrical Engineering Technologist Family Medicine 02/24/25 Production Corrugator Relationship Specialty Start Date End Date Trice Lieberman MD [address] [place], [place] [id number] PCP - General Family Medicine 07/05/24 PodlogarHui APRN.ASSISTANT HEAD CASHIER [address] [place], [place] [id number] Family Medicine 07/05/24 PodlogarHui APRN.ASSISTANT HEAD CASHIER [address] [place], [place] [id number] [facility] 08/21/24 Kinza Basilio APRN.ASSISTANT HEAD CASHIER [address] [place], [place] [id number] [facility] 02/24/25 Goals (unrecognized section and content) Goals [...] BE BASED ON THE PRIMARY CLINICAL RECORDS. [employer] provides no warranty or guarantee of the accuracy or completeness of information in this document.
[2025-08-18 22:03] VITALS: BMI 28.1
[2025-08-18 22:13] VITALS: BP 130/85; PULSE 53; RESP 14; TEMP 36.6; O2SAT 98
--- NOTE | 2025-08-18 22:20 | PCM.HOSP.N ---
Hospitalist Note Patient being very histrionic regarding potassium replacement via IV; nursing is running potassium infusion concurrently with maintenance fluid at 150 mL/h in order to dilute the potassium solution. Patient still not tolerating potassium IV replacement. She feels she is willing to try p.o. replacement again, 40 mEq KCl tab ordered x 1 now. 2319-Pt took PO KCl after ondansetron given. She cont to c/o extreme burning to her IV infusion site. K-riders stopped. I placed order for daily 40 meq K-dur tabs in AM with food.
[2025-08-18] MEDS: Potassium Chloride Oral Tablet 20 MEQ 40 MEQ PO (22:51)
[2025-08-18] MEDS: 0.9% Saline Lock 10 ML Syringe IV ×2 (22:52→23:02)
[2025-08-18] MEDS: 0.9% Normal Saline (1000mL) 1,000 ML 150 ML IV (23:02)
[2025-08-19 05:35] VITALS: BP 159/90; PULSE 79; RESP 18; TEMP 36.7; O2SAT 99
[2025-08-19 05:47] LABS: Hematocrit 35.4 % (37-47); Hemoglobin 12.1 g/dL (12.0-15.0); Immature Granulocytes Count 0.010 X10^3/uL (0.0-0.0); Mean Corp Hgb Conc 34.2 g/dL (32-36); Mean Corpuscular Volume 90.3 fL (81-99); Mean Platelet Vol. 9.5 fl (6.2-12.0); NRBC Flagged by Analyzer 0 % (0-5); Platelet Count 309 K/mm3 (150-450); RBC Distribution Width CV 12.2 % (11.6-14.6); RBC Distribution Width SD 40.6 fl (35.1-43.9); Red Blood Count 3.92 M/mm3 (4.2-5.4); White Blood Count 8.4 K/mm3 (4.4-11.0)
[2025-08-19 06:33] LABS: Anion Gap 11 (5-15); BUN 4 mg/dL (4-19); BUN/Creat Ratio 6.9 RATIO (10-20); Calcium,Total 8.7 mg/dL (7.6-11.0); Carbon Dioxide 20.3 mmol/L (21.0-32.0); Chloride 110 mmol/L (98-108); Estimated Creatinine Clearance 116.59 ml/min (50-250); Glucose 122 mg/dL (70-99); Potassium 3.3 mmol/L (3.3-5.1)
[2025-08-19 08:38] VITALS: BP 142/94; PULSE 82; RESP 17; TEMP 37.1; O2SAT 99
[2025-08-19] MEDS: 0.9% Saline Lock 10 ML Syringe IV ×3 (09:32→18:01)
[2025-08-19] MEDS: Potassium Chloride Oral Tablet 20 MEQ 40 MEQ PO (10:25)
--- NOTE | 2025-08-19 11:13 | SLEEP ---
Patient refused EEG. Explained the procedure and answered many questions that the patient had about the test to try to make her feel more comfortable about it, but she became very agitated and stated that she would not let anyone put anything on her head or touch her in any way.
--- NOTE | 2025-08-19 11:36 | CASEMGMT ---
Social Work Dr. Weston requested a referral to the Crisis Center. KHAI called the Crisis Center and spoke with Shant. Shant requested a demographic sheet be faxed and KHAI faxed it. Shant reported someone will be here to meet with the patient today. BRIANA Daniels
--- NOTE | 2025-08-19 12:01 | NEURO.CONS ---
Assessment and Plan: Neuro Assessment/Plan DANE CRENSHAW is a 39 F with a past medical history of adhd, anxiety, possible opioid use disorder (she mentions methadone a loT), being evaluated by Teleneurology for acute psychosis and delisions. Her history suggests a gradual worsening over the last several days to weeks since starting a SNRI - but states only took once based on history and if not taken the last 5 days unclear if this is just medication effect. On exam and vitals there are no signs obviously demonstrating an autoimmune component to the psychosis (she does not meet our typical syndromes for autoimmune or paraneoplastic encephalitis) but could be an early presentation. For now, would defer to psychiatry for managmenet as this seems more likely a primary psychiatric presentation rather than secondary to underlying neurologic disorder. Do recommend an MRI Brain as her temporal horns of the ventricles are slightly larger than expected and imaging would be beneficial even for baseline comparison if this is a progressive process. - recommend MRI Brain w/wo con - recs on LP depending on imaging and clinical progression I personally attended this patient and spent a total time of 45minutes evaluating this patient including clinical assessment, review of chart, medical history imaging, and determining appropriate treatment and workup. HPI Consult Data Date of Consult: 08/19/25 HPI Narrative HPI Narrative: DANE CRENSHAW, is a 39 F who presents with confusion. This is a 39-year-old female with a history of anxiety who 2 weeks ago was started on a new medication for having anxiety/ADHD which may have been Qelbree ( was not sure what the medication was and the patient is too confused to provide information). Had been noted to be more confused with that medication was stopped but despite that patient continued to be confused. Patient stays at home with her kids and according to the that the house is well-kept. But today it was noted that the children are unattended, diaper is not changed and that the bathtub was starting to overflow and flooding the house. Very out of the norm for the patient. He was concerned and brought the patient to the emergency room. Patient was brought to the emergency room and underwent a workup with lab work that was significant only for potassium of 2.8 which she received a replacement. Urinalysis was unremarkable and patient underwent a drug screen with positive cannabinoids. He does state that the patient uses marijuana occasionally. He denies that she uses any other drugs. He states the patient has not had any significant psychiatric history other than the anxiety and ADHD. Though he has been to her for about 5 years there was a time where she was hospitalized for either suicidal ideation or suicide attempt where she was admitted to a psychiatric unit at that time. [ ] Neurologic History Friends are in the room and state that patient is not her normal self. Her statements and how she is acting are not her normal self. Last time friend states that they had a good conversation with no issues and pt seemed her normal self was probably Friday. Pt went to the hospital a week ago for issues with a medication she was on. That was on Friday and the conversation was not as smooth but better than what she is now. Friends states that when pt was talking she had a lot of emotional lability and severe emotional swings from laughing to crying. Patient states she feel fine, she is not sure why she is in the hospital. She is able to state that her brought her to hospital but not sure why. The last thing she remembers clearly from home was stuggling and feeling out of her mind. She felt like she was having a mental breakdown similar to an event she had a few yrs ago. Pt went to the hospital for this. She states she stayed at [facility]. She denies hospitalization as a kid. The Quelbree made her feel hot and increased her anxiety. She endroses auditory hallucinations possibly but as a historian she gets confused mid-answer then denies. She denies visual hallucinations but seems to have a hard time with the concept and then begins to cry. She has 5 kids. Nobody at home is ill. Pt states she has a hard times at home and then she denies feeling stressed at home. Normally she does have headache but not right now. Has headaches all the time - she states everyday. She states the MADISON have gotten better. They are not as intense she states, denies blurred vision. She denies numbness/tingling, weakness, diplopia. She endorses some difficulty getting words out and that processing certain thoughts has been difficult. Denies tremors, abnormal movement. PAtient seems combative and tangential at times and makes many contradictory statements. Re the SNRI she was taking 2 weeks ago, the Quelbree: startedtaking that 2 weeks ago. She also endorses taking adderrall and ativan but does not remember. She denies taking the adderrall with the jacinta. She also endorses taking methadone with kiara. She does not remember her last dose of adderall. Exam -? General: Laying comfortably in bed; in no acute distress. -? HENT: Normal oropharynx and mucosa. Normal external appearance of ears and nose. Exophthalmos. -? Neck: Supple, no pain or tenderness -? CV:? No peripheral edema. -? Pulmonary:? Normal respiratory effort. -? Ext: No cyanosis, edema, or deformity -? Skin: No rash. Normal palpation of skin.? -? Musculoskeletal: full range of motion; no joint tenderness. Normal digits and nails by inspection. No clubbing. -? NEURO: -? Mental Status: The patient was alert and oriented to time, place, and person. She is very emotionally labile and she alternates between cooperative to combative. -? Language: speech is clear.? Naming, repetition, fluency, and comprehension intact. -? Cranial Nerves: PERRL 4mm/brisk. EOMI, visual cobb full, no facial asymmetry, facial sensation intact, hearing intact, tongue midline, no evidence of atrophy or fibrillations. No noted adventitial movements noted -? Motor: normal bulk, tone, and strength throughout. No pronator drift or satelliting. Upper and lower extremities equal bilaterally. -? Detailed strength exam as performed by the nurse/FRAN and witnessed by the physician: Celio Nelson SA 5 5 EE EF WE WF Electric Screw Driver Operator 5 5 HF KE KF DF PF Detailed reflex exam as performed by the nurse/FRAN and witnessed by the physician: Celio Nelson Biceps Patellar Ankle Babinski mute mute -? Tone: is normal and bulk is normal -? Sensation- Intact to light touch bilaterally -? Coordination: No dysmetria on [id number], finger follow finger or [id number]. -? Gait- Gait initiation was normal. Narrow base with good heel strike and stride length was observed during ambulation. [facility] Medical History Anxiety Hernia Wears glasses Wears dentures Depression Bladder disease Low iron Back pain Migraine headache History of ulceration Shortness of breath on exertion Vapes nicotine containing substance Hx of Tachycardia IUD (intrauterine device) in place Medical History unable to obtain Home Medications ?Medication ?Instructions ?Recorded ?Last Taken ?Type sumatriptan succinate 100 mg tablet 100 mg PO Q2H PRN migraine 02/21/25 Unknown History metoprolol succinate 25 mg 25 mg PO DAILY 08/18/25 08/16/25 History tablet,extended release 24 hr solifenacin 10 mg tablet 10 mg PO DAILY 08/18/25 08/16/25 History Allergy/AdvReac Type Severity Reaction Status Date / Time amoxicillin Allergy Unknown unknown Verified 08/18/25 16:18 Family History Son Asthma Grandmother Diabetes Breast cancer Father Hypertension Family History no significant family his Surgical History S/P cholecystectomy S/P hernia repair History of esophagogastroduodenoscopy (EGD) Previous section Surgical History unable to obtain Social History Smoking Status: Current every day smoker tobacco type: e-cigarettes quit status: not considering quitting alcohol intake: current alcohol intake frequency: holidays/special occasions only substance use type: former substance user Date of last use: 2017 Vital Signs Vital Signs Vital Signs: 08/18/25 16:16 08/18/25 16:32 08/18/25 18:25 Temperature 97.2 F L Temperature Source Temporal Pulse Rate 68 54 L 53 L Respiratory Rate 24 H 14 14 Respiratory Effort Respiratory Depth Respiratory Pattern Blood Pressure 140/98 H 152/79 H 123/72 H Blood Pressure Mean 112 103 89 Blood Pressure Source Blood Pressure Position Blood Pressure Location Pulse Ox 100 99 99 Oxygen Delivery Method Room Air Room Air Room Air 08/18/25 20:00 08/18/25 20:13 08/18/25 22:13 Temperature 97.8 F 97.8 F 97.9 F Temperature Source Oral Oral Pulse Rate 74 82 53 L Respiratory Rate 16 18 14 Respiratory Effort Respiratory Depth Respiratory Pattern Blood Pressure 147/82 H 147/82 H 130/85 H Blood Pressure Mean 103 103 100 Blood Pressure Source Monitor Blood Pressure Position Semi-Fowlers Blood Pressure Location Right Arm Pulse Ox 98 98 98 Oxygen Delivery Method Room Air Room Air 08/18/25 22:39 08/19/25 05:16 08/19/25 05:35 Temperature 98.0 F Temperature Source Oral Pulse Rate 79 Respiratory Rate 18 Respiratory Effort Normal Non-Labored Normal Non-Labored Respiratory Depth Normal Normal Respiratory Pattern Normal Normal Blood Pressure 159/90 H Blood Pressure Mean 113 Blood Pressure Source Monitor Blood Pressure Position Semi-Fowlers Blood Pressure Location Right Arm Pulse Ox 99 Oxygen Delivery Method Room Air Room Air Room Air 08/19/25 08:38 Temperature 98.7 F Temperature Source Oral Pulse Rate 82 Respiratory Rate 17 Respiratory Effort Respiratory Depth Respiratory Pattern Blood Pressure 142/94 H Blood Pressure Mean 110 Blood Pressure Source Monitor Blood Pressure Position Sitting Blood Pressure Location Right Arm Pulse Ox 99 Oxygen Delivery Method Room Air Weight Weight: 74.4 kg Body Mass Index (BMI) 28.1 EEG Results Procedure Details EEG Procedure Details: DANE CRENSHAW is a 39 year old F with a past medical history of , who presents for evaluation of Electroencephalogram on DATE at TIME Lab / Micro Data 08/19/25 03:57 08/19/25 03:57 Labs: Laboratory Results - last 24 hr 08/18/25 17:04: WBC 7.8, RBC 4.14 L, Hgb 12.7, Hct 37.8, MCV 91.3, MCH 30.7, MCHC 33.6, RDW Std Deviation 41.0, RDW Coeff of Concetta 12.2, Plt Count 335, MPV 9.5, Immature Gran % (Auto) 0.300, Neut % (Auto) 60.5, Lymph % (Auto) 29.2, Wright % (Auto) 8.6, Eos % (Auto) 0.6, Baso % (Auto) 0.8, Absolute Neuts (auto) 4.7, Absolute Lymphs (auto) 2.26, Nucleated RBC % 0, Sodium 143, Potassium 2.8 L, Chloride 108, Carbon Dioxide 25.7, Anion Gap 9, BUN 6, Creatinine 0.70, Estim Creat Clear Calc 108.23, Est GFR (MDRD) Non-Af 113, BUN/Creatinine Ratio 8.3 L, Glucose 126 H, Calcium 9.3, Magnesium 2.3 H, Total Bilirubin 0.78, AST 17, ALT 13, Alkaline Phosphatase 44, Total Protein 6.7, Albumin 4.4, Globulin 2.2, Albumin/Globulin Ratio 2.0, Lipase 35, TSH 1.160, Free T4 1.00, Free T3 pg/dL 3.3, Serum , Qual NEGATIVE 08/18/25 18:35: Urine Color Yellow, Urine Clarity Clear, Urine pH 7.0, Ur Specific Snowflake 1.005, Urine Protein Negative, Urine Glucose (UA) Normal, Urine Ketones Negative, Urine Occult Blood 25 H, Urine Nitrite Negative, Urine Bilirubin Negative, Urine Urobilinogen Normal, Ur Leukocyte Esterase Negative, Urine RBC 5-10 SEEN, Urine WBC 0 SEEN, Ur Squamous Epith Cells 0-5 SEEN, Urine Bacteria 1+, Urine Mucus 0 SEEN, Urine Opiates Screen NEGATIVE, U Buprenorphine Qual NEGATIVE, Ur Oxycodone Screen NEGATIVE, Urine Methadone Screen NEGATIVE, Urine Fentanyl Screen NEGATIVE, Ur Barbiturates Screen NEGATIVE, Ur Phencyclidine Scrn NEGATIVE, Ur Amphetamines Screen NEGATIVE, U Benzodiazepines Scrn NEGATIVE, Urine Cocaine Screen NEGATIVE, U Cannabinoids Screen PRESUMPTIVE POSITIVE 08/19/25 03:57: WBC 8.4, RBC 3.92 L, Hgb 12.1, Hct 35.4 L, MCV 90.3, MCH 30.9, MCHC 34.2, RDW Std Deviation 40.6, RDW Coeff of Concetta 12.2, Plt Count 309, MPV 9.5, Immature Gran % (Auto) 0.100, Neut % (Auto) 58.8, Lymph % (Auto) 30.5, Wright % (Auto) 9.1, Eos % (Auto) 0.8, Baso % (Auto) 0.7, Absolute Neuts (auto) 4.9, Absolute Lymphs (auto) 2.55, Nucleated RBC % 0, Sodium 141, Potassium 3.3, Chloride 110 H, Carbon Dioxide 20.3 L, Anion Gap 11, BUN 4, Creatinine 0.64 L, Estim Creat Clear Calc 116.59, Est GFR (MDRD) Non-Af 115, BUN/Creatinine Ratio 6.9 L, Glucose 122 H, Calcium 8.7 Imaging Radiology Impression Brain CT 08/18/25 16:34 IMPRESSION: Unremarkable head CT. Reading Location: [id number] Active Medications Active Medications Active Medications: Current Medications Generic Name Dose Route Start Last Admin Trade Name Freq PRN Reason Stop Dose Admin Acetaminophen 650 mg 08/18/25 21:46 Acetaminophen 325 Mg Tablet PO Q6H PRN PRN Pain 1-10 Or Fever>100.7 Sodium Chloride 250 mls @ 15 mls/hr 08/18/25 21:47 IV .[id number] PRN Saline Flush Sodium Chloride 250 mls @ 15 mls/hr 08/18/25 21:47 IV .[id number] PRN Additional IVPB Infusion Lorazepam 1 mg 08/18/25 21:46 08/19/25 09:42 Lorazepam 2 Mg/Ml Syringe IV 1 mg Q4H PRN PRN Administration ANXIETY/AGITATION Ondansetron HCl 4 mg 08/18/25 21:46 08/18/25 22:51 Ondansetron 4 Mg/2 Ml Vial IV 4 mg Q8H PRN PRN Administration NAUSEA/VOMITING Potassium Chloride 40 meq 08/19/25 08:00 08/19/25 10:25 Potassium Chloride Oral Tablet 20 Meq PO 40 meq DAILYCM MINOR Administration Rizatriptan Benzoate 10 mg 08/18/25 21:46 Rizatriptan Benzoate 10 Mg Tablet PO Q2H PRN PRN migraine Sodium Chloride 10 - 40 ml 08/18/25 21:47 08/19/25 09:41 0.9% Saline Lock 10 Ml Syringe IV 10 ml UD PRN Administration SALINE FLUSH
--- NOTE | 2025-08-19 12:25 | CASEMGMT ---
Social Work SW spoke with and completed SDOH due to the patients confusion. SW informed the that the Crisis Center has been called to meet with his . The reported their children are ages 2 and 4. BRIANA Daniels
--- NOTE | 2025-08-19 12:45 | CASEMGMT ---
Social Work SW called CPS and made a report. SW informed CPS that the reported last night in the ER that the stays at home with her kids and according to the that the house is well-kept. But today it was noted that the children are unattended, diaper is not changed and that the bathtub was starting to overflow and flooding the house. SW informed CPS that the children are 2 and 4 years old. CPS asked SW to call the back and find out more about the children being unattended. SW called the and asked him about the children being unattended. The reported he was home asleep. When reported he woke up and the house was crazy. He reported his had a mental breakdown. SW called CPS back with this information. CPS reported they probably not make this a case. BRIANA Daniels
--- NOTE | 2025-08-19 13:00 | NURSING ---
Pt just finished tele-neuro and her friends came back into room. Without warning, pt began to walk in halls and wouldn't return to her room. Security and VIKTORIYA Moreno, were requested to floor. Pt was attempting to get on elevators when security arrived. When informed that she couldn't go outside, pt became irate and began screaming. After slightly calming down, pt then began to threaten to break out window in lobby with a table or chair. Pt was subdued and taken back to her room. pt was placed into soft wrist restraints momentarily (approx 5 min) until she calmed down. Pt would alternate between episodes of screaming and threatening to crying and recluse.
[2025-08-19] MEDS: Nicotine (PBKC) 21 MG Patch TD (14:21)
--- NOTE | 2025-08-19 14:49 | CASEMGMT ---
Social Work SW called the and left a message. BRIANA Daniels
--- NOTE | 2025-08-19 14:49 | PCM.DC.SUM ---
Providers Date of Admission: 08/18/25 Date of Discharge: 08/19/25 Primary Care Physician: Hui Valdes, KOSTA Consultations 08/18/25 21:46 Neurology [Consult: Tele-Neurology] Routine Consulting Provider: [facility] Reason for Consult: confusion EMERGENT Consult: No MD Notified: Yes Date Notified: 08/19/25 Time Notified: 00:04 Method of Notification: Answering Service Method of Consult:: Telemedicine Comments:: Dr Hernandez Nursing Unit Staff Notify [facility] of Tele-Neurology Consult: Yes Reason For Visit: CONFUSION Diagnosis Discharge Diagnosis (1) Acute confusion: Status: Acute Code(s): R41.0 - Disorientation, unspecified Medications at Discharge Home Medications sumatriptan succinate 100 mg tablet 100 mg PO Q2H PRN migraine 02/21/25 metoprolol succinate 25 mg tablet,extended release 24 hr 25 mg PO DAILY 08/18/25 solifenacin 10 mg tablet 10 mg PO DAILY 08/18/25 Hospital Course Operations None Procedures EKG and - (CT brain) Summary of Care Provided Minutes Spent on Discharge: 22 Hospital Course: Mrs. Olivera is a 39-year-old white female who presented to the emergency department at [facility] on 08/18/2025 due to acute confusion. She has a history of anxiety and was started on some new medication, suspected to be Qelbree, about 2 weeks prior. It was thought she was possibly more confused with the initiation of that medication so was discontinued but despite that the patient remained confused. 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 The states that the house is typically well-kept but the children were unattended to with his diaper not being changed and the bathtub was starting to overflow and flooding the house upon his arrival. indicated this was out of the norm for the patient. Given these findings he was concerned and brought her to the emergency department. Vital signs on presentation were unremarkable. Labs were drawn and the only remarkable finding on her lab work was hypokalemia with a testing of 2.8 which was replaced and corrected. Her urinalysis was unremarkable. Drug screen was only positive for cannabinoids. Patient did admit to intermittent marijuana use. Psychiatric history was denied on admission other than anxiety and ADHD. She has been for about 5 years. Patient was admitted to PCU for further workup to include MRI, EEG, and LP. Neurology was consulted and evaluated the patient. They felt overall that this was most likely psychiatric but wanted an MRI to be performed. We attempted to obtain all studies however the patient adamantly denied and the would not give permission to do them. Given that they were deferred. Patient then became very agitated wandering around the unit going into other patients rooms and then tried to escape and elope from the unit. She had intermittently been asking about AMA papers but never definitively demanded to leave AMA. Security was called and had to escort her back into her room. She then became violent and picked up a chair and tried to break the window with it to escape. She was secured temporarily with restraints of the upper extremities. These were soft restraints and only required placement for about 5 minutes. The situation was de-escalated and crisis was consulted and evaluated the patient. They felt she was a risk to herself and others and felt that this was most likely a psychotic break and recommended inpatient psychiatric care. [facility] slip was filled out and the patient was discharged to acute psychiatric hospital in stable condition on 08/19/2025. Discharge diagnoses: Acute psychosis Hypokalemia History of anxiety ADHD Marijuana use Tobacco abuse Physical Exam Narrative Exam is extremely limited due to severe agitation Const alert and well nourished; Negative for no apparent distress, average body habitus, no limitations or healthy appearing Constitutional Narrative: Overweight, very agitated, white female, walking around the room, tried to get into the closet and close the door, became aggressive with security tried to grab them and pushed them away, intermittent psychosis General Appearance: comfortable, well kempt and well developed; Negative for cooperative Exam Limitations: altered mental status and behavioral limitations Nutritional Appearance: overweight HEENT normocephalic and head/scalp atraumatic Resp Resp Narrative: Patient speaking and yelling in full sentences without any signs of shortness of breath Extremity Extremity Narrative: No notable cyanosis clubbing or edema Skin Skin Narrative: Tattoos noted Neuro moves all extremities and no focal motor deficits Neuro Narrative: Walking independently with stable gait around the room strength appears to be good given combativeness and aggression Speech: speech normal Psych Negative for affect normal Psych Narrative: Very agitated, nonsensical thought with flight of ideas and paranoia, intermittently calm and able to answer questions and then will go off on tangential thought process and agitation and aggression Weight / BMI Weight Weight: 74.4 kg Body Mass Index (BMI) 28.1 ABG / Lab / Microbiology Data 08/19/25 03:57 08/19/25 03:57 Laboratory: Laboratory Results - last 24 hr 08/18/25 17:04: WBC 7.8, RBC 4.14 L, Hgb 12.7, Hct 37.8, MCV 91.3, MCH 30.7, MCHC 33.6, RDW Std Deviation 41.0, RDW Coeff of Concetta 12.2, Plt Count 335, MPV 9.5, Immature Gran % (Auto) 0.300, Neut % (Auto) 60.5, Lymph % (Auto) 29.2, Haines % (Auto) 8.6, Eos % (Auto) 0.6, Baso % (Auto) 0.8, Absolute Neuts (auto) 4.7, Absolute Lymphs (auto) 2.26, Nucleated RBC % 0, Sodium 143, Potassium 2.8 L, Chloride 108, Carbon Dioxide 25.7, Anion Gap 9, BUN 6, Creatinine 0.70, Estim Creat Clear Calc 108.23, Est GFR (MDRD) Non-Af 113, BUN/Creatinine Ratio 8.3 L, Glucose 126 H, Calcium 9.3, Magnesium 2.3 H, Total Bilirubin 0.78, AST 17, ALT 13, Alkaline Phosphatase 44, Total Protein 6.7, Albumin 4.4, Globulin 2.2, Albumin/Globulin Ratio 2.0, Lipase 35, TSH 1.160, Free T4 1.00, Free T3 pg/dL 3.3, Serum , Qual NEGATIVE 08/18/25 18:35: Urine Color Yellow, Urine Clarity Clear, Urine pH 7.0, Ur Specific [place] 1.005, Urine Protein Negative, Urine Glucose (UA) Normal, Urine Ketones Negative, Urine Occult Blood 25 H, Urine Nitrite Negative, Urine Bilirubin Negative, Urine Urobilinogen Normal, Ur Leukocyte Esterase Negative, Urine RBC 5-10 SEEN, Urine WBC 0 SEEN, Ur Squamous Epith Cells 0-5 SEEN, Urine Bacteria 1+, Urine Mucus 0 SEEN, Urine Opiates Screen NEGATIVE, U Buprenorphine Qual NEGATIVE, Ur Oxycodone Screen NEGATIVE, Urine Methadone Screen NEGATIVE, Urine Fentanyl Screen NEGATIVE, Ur Barbiturates Screen NEGATIVE, Ur Phencyclidine Scrn NEGATIVE, Ur Amphetamines Screen NEGATIVE, U Benzodiazepines Scrn NEGATIVE, Urine Cocaine Screen NEGATIVE, U Cannabinoids Screen PRESUMPTIVE POSITIVE 08/19/25 03:57: WBC 8.4, RBC 3.92 L, Hgb 12.1, Hct 35.4 L, MCV 90.3, MCH 30.9, MCHC 34.2, RDW Std Deviation 40.6, RDW Coeff of Concetta 12.2, Plt Count 309, MPV 9.5, Immature Gran % (Auto) 0.100, Neut % (Auto) 58.8, Lymph % (Auto) 30.5, Haines % (Auto) 9.1, Eos % (Auto) 0.8, Baso % (Auto) 0.7, Absolute Neuts (auto) 4.9, Absolute Lymphs (auto) 2.55, Nucleated RBC % 0, Sodium 141, Potassium 3.3, Chloride 110 H, Carbon Dioxide 20.3 L, Anion Gap 11, BUN 4, Creatinine 0.64 L, Estim Creat Clear Calc 116.59, Est GFR (MDRD) Non-Af 115, BUN/Creatinine Ratio 6.9 L, Glucose 122 H, Calcium 8.7 Radiography Diagnostic Testing: Radiology Impression Brain CT 08/18/25 16:34 IMPRESSION: Unremarkable head CT. Reading Location: [id number] D/C Instructions DC O2, CPAP, BIPAP Needs Home O2 Discharge instructions: No DC home with Oxygen: No Meaningful Use Info Meaningful Use Meaningful Use Diagnoses (Choose all that apply): None applicable Discharge Plan Admission Admit Date/Time: 08/18/25 19:53 Primary Reason for Your Visit: Altered mental status Attending Provider: Lourdes Weston Primary Care Provider: Hui Valdes NP Consulting Providers: Richmond Leonard; Yokasta Hernandez; Kinza Ballesteros; Darnell Braun; Shayne Jaramillo; Alberto Sunshine; YESY SEGOVIA; Lizy Jaquez; Mariola Martinez; Chandler Warner; Shirin Dhillon; Bob Vela; Macy Lo; Funmilayo Jacobs; Beto Randall; Iona Tenorio; Rubio Rodriguez; Dave Brito; Odessa Rosado; Omar Raman; Orquidea Kumari; Yemi Gimenez; Jignesh Romo; Jarrell Ramsey; Jimmy Peralta; Shayy Weston; Abigail Tejada; Tato Escobar Discharge Orders/Prescriptions Prescriptions: Continued sumatriptan succinate 100 mg tablet 100 mg PO Q2H PRN (Reason: migraine) metoprolol succinate 25 mg tablet extended release 24 hr 25 mg PO DAILY solifenacin 10 mg tablet 10 mg PO DAILY Referrals / Follow Up: [facility] ac NP, DELIVERY STOCK CLERK-C [Primary Care Provider, Medical] - In 1 Week Referral Note: After discharge from psychiatric facility Disposition Disposition (needs filled in before D/C Order can be placed): Psychiatric Hospital or Unit Charges/Coding Visit Charges Inpatient E&M: 70872 Disch Hosp
--- NOTE | 2025-08-19 14:50 | CASEMGMT ---
Social Work The called [facility]HAI. SW explained Crisis Center believes his is a risk to herself. He reported he is taking care of the kids. He reported the kids are with his son while he is at the hospital. His son is 18 years old. He reported he spoke with his refractory grinder operator and his refractory grinder operator advised him that he needs to call children services. He reported he can care for kids and they have food. KHAI informed him will call him once a facility has been identified for his . BRIANA Daniels
--- NOTE | 2025-08-19 14:58 | CASEMGMT ---
Social Work Therapist Awa with the Crisis Center meet with the patient. Awa reported the patient is suicidal. Awa is going to look for a psychiatric facility for the patient. The patient has a sitter and is on suicidal protocols. BRIANA Daniels
[2025-08-19 15:58] VITALS: BP 138/91; RESP 16; TEMP 36.7; O2SAT 98
--- NOTE | 2025-08-19 17:12 | CHAPLAIN ---
Type of Pastoral Visit ___ Initial Visit ___ Follow-up Visit ___ On-call Visit ___ General Patient Visit ___ Spiritual Assessment ___ Family Conference ___ Bereavement ___ Rapid Response ___ Code Blue ___ Other (describe below) Pastoral Care Referral From ___ Patient ___ Family ___ Nurse ___ Physician ___ Llama Farmer ___ Sales Technician Home Theater ___ Other (describe below) Sacrament/Intervention ___ Active listening ___ Anointing ___ Judaism ___ Bereavement ___ Communion ___ Lisa exploration ___ ___ Life review ___ Prayer ___ Reconciliation ___ Sacrament of Sick ___ Supportive presence ___ Wedding ___ Other (describe below) Pastoral Comments patient has had emotional upheavals and also some calm after being medicated; staff recommend that a visit be postponed as pt is currently resting well and quietly
--- NOTE | 2025-08-19 17:36 | EKG12_ITS ---
Test Reason : MED.CLEAR Blood Pressure : */* mmHG Vent. Rate : 91 BPM Atrial Rate : 91 BPM P-R Int : 166 ms QRS Dur : 78 ms QT Int : 342 ms P-R-T Axes : 60 -2 26 degrees QTcB Int : 420 ms Normal sinus rhythm with sinus arrhythmia Normal ECG Confirmed by Rolan Miranda ([id number]), newspaper or periodical editor DELGADO BOO ([id number]) on 08/23/2025 8:45:13 AM Referred By: BILL Confirmed By: Rolan Miranda
[2025-08-19 23:15] VITALS: BP 139/102; PULSE 93; RESP 18; TEMP 36.4; O2SAT 95
--- NOTE | 2025-08-20 00:35 | NURSING ---
This RN heard patient yelling from the hallway. This RN to patient room. Pt demanding cigarette and her phone. This RN explained that pt could not have cigarette in the hospital. Offered Nicotine patch. Pt refused. Pt pacing the room. This RN attempted to verbally de-escalate patient behavior; offered drink/snack. Pt continued to yell. RN at the desk called security; who called Lei CARBAJAL. Pt seemed to calm down for a brief time, but then began yelling and swearing again. Was threatening to leave. States that staff is holding her hostage. Pt then pulled soap dispenser off the wall and threw it to the ground. Gregg clark called. Lei CARBAJAL to unit and entered room. Pt then placed both hands on Lei CARBAJAL officer. Lei CARBAJAL officers able to get pt to bed. Alyssia clark wrist restraints applied for staff safety.
[2025-08-20] MEDS: proMETHazine 25 MG/ML Syringe 12.5 MG IM (00:49)
--- NOTE | 2025-08-20 01:14 | PN.HOSP_ITS ---
Hospitalist Note Patient was very aggressive, combative and violent. Code eduardo was called. Prior to that patient was admitted on 08/18 for altered mental status, less responsiveness and communication not making sense. She had a history of depression and ADHD. She is supposed to be transferred to inpatient psych facility tomorrow at 9 AM I went to see the patient and patient was combative, yelling, ripped off soap dispenser from the wall and threw it, was aggressive on 1 [address] [employer] [address]. Patient was surrounded by many police officers. She was using abusive language. She has been constantly asking for cigarette or vaping. She got violent as she was told that she cannot smoke. She required 4-point leather restraint on bilateral wrist and ankles. She was given 2 mg IM Haldol and 12.5 mg IM Phenergan. After 45 minutes she is more calm, neutral relaxing. Patient was evaluated. She denies aggressive or violent thoughts, thought distortion or disorganized thinking. Denies hallucinations, illlusion. She answered some questions regarding no chest pain or shortness of breath or headache 1 hour [id number] assessment was completed, dated, timed and signed. 4 point Leatherbury stent was taken off. Paper was signed.
--- NOTE | 2025-08-20 01:14 | PN.HOSP_ITS ---
Hospitalist Note 0030 - Pt's behavior escalating, she's demanding a shower, a cigarette, some ativan and adderall. Staff was able to redirect briefly, but then she grabbed a soap dispenser from the wall and through it at staff, screaming and threatening harm to them. [place] [employer] in room, Gregg Pagan called. at bedside- ordered haloperidol 2mf IM and promethazine 12.5mg IM x1 now, she was placed in violent locked restraints after being placed in to the bed by PD officers. 0100 - Locked restraints removed from ankles, pt continues to demand a shower and smokes. She's sitting up in bed, pulling at wrist restraints. Staff states that the administration of the PRN lorazepam at 2343 was what escalated her agitation to violence. 1:1 sitter remains in room. 0115 - She continues to swear at staff and make verbal threats of leaving the hospital. Additional lorazepam 2mg IM ordered to be given x1 now. 0130 - Pt is calmed, all four locked restraints removed by nrsg. Lorazepam 2mg IM not given at this time.
[2025-08-20 03:05] VITALS: BP 114/102; PULSE 100; RESP 16; TEMP 36.2; O2SAT 97
--- NOTE | 2025-08-20 07:05 | PCM.HOSP.N ---
Hospitalist Note Discharge was held up by transportation/bed availability and therefore patient was discharged to psychiatric hospital. Plan is now for transportation to pick her up at 9 AM today. It is from overnight reviewed. Plan remains the same. Await transport to psychiatric hospital.
--- NOTE | 2025-08-20 07:53 | NURSING ---
called to give an update on pt. stated he was walking up to the floor as we were talking. arrived at the desk and I gave a verbal update of what occured overnight.
--- NOTE | 2025-08-20 07:57 | NURSING ---
This RN called and gave report to HARRIET Loving at [facility].
== END 2025-08-20 08:20 ==
LOC: ED 19:45 → PCU 20:54
PROVIDERS: Emergency Provider Emergency Medicine; PCP Nurse Practitioner Primary Care; Visit Provider Internal Medicine
DX: F23 Brief psychotic disorder (principal); F41.9 Anxiety disorder, unspecified; R11.10 Vomiting, unspecified; F90.9 Attention-deficit hyperactivity disorder, unspecified type; E87.6 Hypokalemia; F12.90 Cannabis use, unspecified, uncomplicated; F17.290 Nicotine dependence, other tobacco product, uncomplicated; Z78.1 Physical restraint status; R45.1 Restlessness and agitation; Z79.899 Other long term (current) drug therapy
CPT/HCPCS: 70450; 80048; 80053; 80307; 81001; 83690; 83735; 84439; 84443; 84481; 84703; 85025; 93005; 96361; 96365; 96366; 96372; 96375; 96376; 99221; 99284; A4216; G0378; J2405